=== PATIENT | female | born 1980 | race Caucasian/White ===

== ENCOUNTER 2017-02-26 19:26 | Inpatient (IN) | payer MEDICAID ==
[2017-02-26] VITALS (24 sets, daily range): BP systolic 84–123; BP diastolic 51–90; PULSE 108–156; RESP 16–59; TEMP 101.9–104.6; O2SAT 92–100
[~2017-02-26] VITALS: Ht 170.2 cm; Wt 95.5 kg
[~2017-02-26 19:26] MED LIST: DUONI INH; FURO1TAB93 PO; KCL20 PO; METO25 PO; NEBUMIS6 INH; PERC5TAB12 PO; SPIR25 PO
[2017-02-26] MEDS: MIDAZOLAM 100 MG/100 ML INJ 100 ML IV PRN (19:35)
[2017-02-26] MEDS ORDERED: SODIUM CHLOR 0.9% 1000 ML INJ 1,000 ML IV ONE ×6 (19:35→22:33)
[2017-02-26] MEDS ORDERED: MIDAZOLAM 100 MG/100 ML INJ 100 ML ONE (19:36)
[2017-02-26] MEDS ORDERED: ETOMIDATE 20 MG/10 ML VIAL IV PUSH ONE (19:45)
[2017-02-26] MEDS ORDERED: SUCCINYLCHOLINE CHLORIDE 200 MG/10 ML VIAL IV PUSH ONE (19:45)
[2017-02-26] MEDS ORDERED: ACETAMINOPHEN 650 MG SUPP RECTAL ONE (19:45)
[2017-02-26] MEDS ORDERED: MIDAZOLAM HCL 2 MG/2 ML VIAL IV PUSH ONE ×2 (19:45→20:00)
[2017-02-26 19:53] LABS: I-STAT POTASSIUM 3.3 MMOL/L (3.5-4.9); I-STAT SODIUM 133 MMOL/L (138-146)
--- NOTE | 2017-02-26 19:58 | PD ---
HPI Chief Complaint: Stroke Alert Time Seen by Provider: 19:35 Travel History International Travel<30 days: No Contact w/Intl Traveler<30days: No Traveled to known affect area: No History of Present Illness HPI The patient is a 36-year-old female who presents to the emergency department via EMS as a stroke alert. According to EMS the patient has a history of fungal endocarditis with previous IVDA. EMS states that the patient is currently on hospice, however, they are unsure if the patient is a DNR. EMS states the patient apparently complained of a headache earlier today, was found lying on the floor and incontinent of stool at approximate, last seen normal at 6:45 PM. Therefore, EMS called a stroke alert in the field as the patient was aphasic and confused. Upon arrival the patient groans, moves all 4 extremities and withdraws all 4 extremities, but is unable to provide any information. PFSH Past Medical History Anxiety: Yes Cancer: No Cardiovascular Problems: Yes (ENDOCARDITIS 2016) Diminished Hearing: No Endocrine: No Immune Disorder: No Musculoskeletal: No Neurologic: Yes Psychiatric: No Reproductive: No Respiratory: No Pneumonia: Yes : 2 Para: 2 Social History Alcohol Use: Yes (SOC) Tobacco Use: No Substance Use: Yes (pills percocet, ocycodone and dilaudid last time yesterday , uses daily ) Allergies-Medications (Allergen,Severity, Reaction): Coded Allergies: No Known Allergies (Verified , 09/01/15) Reported Meds & Prescriptions Reported Meds & Active Scripts Active Kcl 20 Meq Tab (Potassium Chloride) 20 Meq Tabcr 20 Meq PO DAILY 30 Days Percocet 5-325 mg (Oxycodone/Acetaminophen) 1 Tab 1 Tab PO Q4H PRN Nebulizer (Miscellaneous Medication) Mis 1 Unit INH DIRECTED Resp: Albuterol/Ipratropium 2.5 Mg/0.5 Mg (Albuterol/Ipratropium) 1 Amp Nebu 1 Ampule INH Q4HR NEB PRN 30 Days Aldactone 25 mg (Spironolactone) 25 Mg Tab 25 Mg PO Q12HR 30 Days Metoprolol Tartrate 25 mg (Metoprolol Tartrate) 25 Mg Tab 25 Mg PO Q12HR 30 Days Furosemide 40 Mg Tab 40 Mg PO Q8H 30 Days Review of Systems ROS Limitations: Clinical Condition, Altered Mental Status Except as stated in HPI: all other systems reviewed are Neg Genitourinary: Positive: Incontinence (incontinent of stool according to EMS) Neurologic: Positive: Change in Mentation, Other (aphasia) Physical Exam Exam Limitations: Clinical Condition, Altered Mental Status Narrative GENERAL: Eyes open, nonverbal, confused appearing 36-year-old female. SKIN: Focused skin assessment warm/dry. HEAD: Atraumatic. Normocephalic. EYES: Pupils equal and round. Pupils are 4 mm bilateral and reactive. ENT: No nasal bleeding or discharge. Mucous membranes pink and moist. NECK: Trachea midline. No JVD. CARDIOVASCULAR: Regular, tachycardic with a heart rate of 120. Well-healed midline sternal scar. RESPIRATORY: No accessory muscle use. Clear to auscultation. Breath sounds equal bilaterally. GASTROINTESTINAL: Abdomen soft, mild distention. MUSCULOSKELETAL: No obvious deformities. No edema noted to lower extremities bilaterally. NEUROLOGICAL: Awake, eyes open, nonverbal, groans. Withdraws all 4 extremities to pain but does not follow commands. Unable to answer questions regards to the person, place, and time. Does not follow commands in regards to drift of the upper or lower extremity is, extraocular muscle movements, visual field testing, [id number], or finger to nose. PSYCHIATRIC: Appears confused. Data Data Orders Orders Midazolam 100 Mg/100 Ml Inj (Versed Inj) (02/26/17 19:36) Diet Npo (02/27/17 Breakfast) Activity Bed Rest (02/26/17 ) Electrocardiogram (02/26/17 ) I-Stat Creatinine (02/26/17 19:35) I-Stat Profile (02/26/17 19:35) Prothrombin Time / Inr (Pt) (02/26/17 19:35) Act Partial Throm Time (Ptt) (02/26/17 19:35) Complete Blood Count With Diff (02/26/17 19:35) Fibrinogen (02/26/17 19:35) Creatine Kinase (Cpk) (02/26/17 19:35) Troponin I (02/26/17 19:35) Ua Includes Microscopic (02/26/17 19:35) Drug Screen, Random Urine (02/26/17 19:35) Type And Screen (02/26/17 19:35) Ct Brain W/O Iv Contrast(Rout) (02/26/17 ) Chest, Single Ap (02/26/17 ) Beta Hcg (Quant/Titer) (02/26/17 19:35) Consult Neurology (02/26/17 ) Blood Glucose (02/26/17 19:35) Ecg Monitoring (02/26/17 19:35) Neuro Checks Q2HX12,Q4H (02/26/17 19:35) Nursing Bedside Swallow Assess .ONCE (02/26/17 19:35) Iv Access Insert/Monitor (02/26/17 19:35) NPO (02/26/17 19:35) Oximetry (02/26/17 19:35) Oxygen Administration (02/26/17 19:35) Sodium Chlor 0.9% 1000 Ml Inj (Ns 1000 M (02/26/17 19:35) Resp Oxygen Franck C Titrat 1-4 L (02/26/17 19:35) Cath For Specimen (02/26/17 19:35) Etomidate Inj (Amidate Inj) (02/26/17 19:45) Succinylcholine Inj (Quelicin Inj) (02/26/17 19:45) Sodium Chlor 0.9% 1000 Ml Inj (Ns 1000 M (02/26/17 19:45) Lactic Acid (02/26/17 19:35) Blood Culture (02/26/17 19:35) Ammonia (02/26/17 19:35) Midazolam Inj (Versed Inj) (02/26/17 19:45) Acetaminophen Supp (Tylenol Supp) (02/26/17 19:45) Midazolam Inj (Versed Inj) (02/26/17 20:00) Vecuronium 10 Mg Inj (Norcuron 10 Mg Inj (02/26/17 20:00) Vancomycin Inj (Vancomycin Inj) (02/26/17 20:15) Ceftriaxone Inj (Rocephin Inj) (02/26/17 20:15) Sodium Chlor 0.9% 1000 Ml Inj (Ns 1000 M (02/26/17 20:15) Adenosine Inj (Adenocard Inj) (02/26/17 20:15) Propofol 1000 Mg/100 Ml Inj (Diprivan 10 (02/26/17 20:15) ^ Infusion (02/26/17 20:05) RASS (02/26/17 20:05) Neurological Rass Scale NEETU.Q2H (02/26/17 20:05) Diltiazem Inj (Cardizem Inj) (02/26/17 20:30) Ketorolac Inj (Toradol Inj) (02/26/17 20:47) Chest, Single Ap (02/26/17 ) Ketorolac Inj (Toradol Inj) (02/26/17 21:00) Sodium Chlor 0.9% 1000 Ml Inj (Ns 1000 M (02/26/17 21:00) Labs Laboratory Tests Test 02/26/17 19:30 White Blood Count 18.8 TH/MM3 Red Blood Count 4.13 MIL/MM3 Hemoglobin 9.9 GM/DL Bedside Hemoglobin 10.9 G/DL Hematocrit 31.1 % Bedside Hematocrit 32.0 % Mean Corpuscular Volume 75.4 FL Mean Corpuscular Hemoglobin 24.0 PG Mean Corpuscular Hemoglobin Concent 31.9 % Red Cell Distribution Width 15.5 % Platelet Count 200 TH/MM3 Mean Platelet Volume 7.7 FL Neutrophils (%) (Auto) 93.8 % Lymphocytes (%) (Auto) 2.2 % Monocytes (%) (Auto) 3.7 % Eosinophils (%) (Auto) 0.0 % Basophils (%) (Auto) 0.3 % Neutrophils # (Auto) 17.7 TH/MM3 Lymphocytes # (Auto) 0.4 TH/MM3 Monocytes # (Auto) 0.7 TH/MM3 Eosinophils # (Auto) 0.0 TH/MM3 Basophils # (Auto) 0.0 TH/MM3 CBC Comment AUTO DIFF Prothrombin Time 15.4 SEC Prothromb Time International Ratio 1.4 RATIO Activated Partial Thromboplast Time 43.2 SEC Fibrinogen 289 mg/dL Bedside Sodium 133 MMOL/L Bedside Potassium 3.3 MMOL/L Bedside Chloride 98 MMOL/L Bedside Blood Urea Nitrogen 15 MG/DL Bedside Creatinine 0.7 MG/DL Bedside Glucose 139 MG/DL Total Creatine Kinase 103 U/L Troponin I 0.61 NG/ML Human Chorionic Gonadotropin, Quant LESS THAN 1 MIU/ML [facility] Medical Screen Exam Complete: Yes Emergency Medical Condition: Yes Medical Record Reviewed: Yes EKG Prior to Arrival: Yes Differential Diagnosis Differential diagnosis includes meningitis, encephalitis, sepsis, CVA, intracranial hemorrhage, IVDA, endocarditis, epidural abscess, UTI, pneumonia. Narrative Course IV was established, labs were drawn and sent, and the patient was placed on cardiac telemetry monitoring and continuous pulse oximetry monitoring. The patient was intubated secondary to confusion, inability to follow commands, and inability to stay still for CT of the brain. The patient was intubated using rapid sequence intubation with etomidate and succinylcholine using a C Mac glide scope with a 8.0 endotracheal tube. The patient was administered Versed for sedation, IV fluid bolus, and Tylenol rectally for temperature of 103.9. EMS states the patient's Accu-Chek prior to arrival was 149. The patient went immediately to CT for CT of the brain. I discussed the patient with the on- call neurologist, Dr. Church, who agrees the patient would not be a candidate for TPA secondary to the fever, altered mental status, history of IVDA with endocarditis, an atypical presentation for acute ischemic CVA. I discussed the patient with the radiologist who states the CT the brain is negative, no acute hemorrhage or obvious infarct. The patient's initial assessment appeared to be encephalopathy, most likely sepsis related. Therefore, a quick NIHSS was performed, approximately 10, the patient was intubated and went to CT which was negative. The patient returned a central line was placed in the right internal jugular under ultrasound guidance. Repeat chest x-ray was performed, endotracheal tube was moved backwards 2 cm as it was on the juan on the initial chest x-ray. The patient did receive Rocephin, vancomycin, and 3 L of IV fluids. The patient did go in atrial flutter with 2:1 block with a rate of 150, was administered adenosine 12 mg intravenously which did not touch her heart rate, therefore, patient received Cardizem 20 mg intravenously. The patient's rate came down into the 130s. The patient appears to have sepsis, most likely endocarditis or blood- borne infection, cannot rule out meningitis. Therefore, patient was covered with Rocephin 2 g intravenously and acyclovir 80 mg/kg. I discussed the patient with the on-call wrapper layer and examiner soft work, Dr. Calix, who agrees with admission. Critical Care Narrative Aggregate critical care time was 45 minutes. Time to perform other separately billable procedures was not included in the critical care time. My time did not include minutes spent treating any other patients simultaneously or on activities that did not directly contribute to the patient's treatment. The services I provided to this patient were to treat and/or prevent clinically significant deterioration that could result in: Anoxia, hypoxia, aspiration, sepsis, septic shock, . I provided critical care services requiring my management, as noted below: Chart data review, documentation time, medication orders and management, vital sign assessments/reviewing monitor data, ordering and reviewing lab tests, ordering and interpreting/reviewing x-rays and diagnostic studies, care of the patient and discussion of the patient with the admitting physicians. Stroke Alert NIHSS NIH Stroke Scale Result: 10 NIHSS Time Completed: 19:30 Procedures Procedure Narrative INTUBATION: The patient was put in optimal position for the procedure. Rapid sequence intubation was initiated by me using 20 milligrams of etomidate IV and 100 milligrams of succinylcholine IV. The patient was intubated with a 8-0 cuffed endotracheal tube. Tube placement was confirmed by visualization of the tube and balloon passing through the cords, capnometry and subsequent chest x- ray. Breath sounds were equal and well aerated bilaterally postintubation. No breath sounds over stomach. Patient tolerated procedure well. CENTRAL VENOUS LINE: The site was prepped with Betadine and sterilely draped. It was infiltrated with 1% lidocaine plain. The deep vein was cannulated using normal Seldinger technique. A triple lumen central line was placed in the right internal jugular site and secured with simple interrupted suture. The site was sterilely dressed. The patient tolerated the procedure well. Interpretation(s) EKG reveals sinus tachycardia with a rate of 120. RSR prime V1. Laboratory Tests Test 02/26/17 19:30 White Blood Count 18.8 TH/MM3 Red Blood Count 4.13 MIL/MM3 Hemoglobin 9.9 GM/DL Bedside Hemoglobin 10.9 G/DL Hematocrit 31.1 % Bedside Hematocrit 32.0 % Mean Corpuscular Volume 75.4 FL Mean Corpuscular Hemoglobin 24.0 PG Mean Corpuscular Hemoglobin Concent 31.9 % Red Cell Distribution Width 15.5 % Platelet Count 200 TH/MM3 Mean Platelet Volume 7.7 FL Neutrophils (%) (Auto) 93.8 % Lymphocytes (%) (Auto) 2.2 % Monocytes (%) (Auto) 3.7 % Eosinophils (%) (Auto) 0.0 % Basophils (%) (Auto) 0.3 % Neutrophils # (Auto) 17.7 TH/MM3 Lymphocytes # (Auto) 0.4 TH/MM3 Monocytes # (Auto) 0.7 TH/MM3 Eosinophils # (Auto) 0.0 TH/MM3 Basophils # (Auto) 0.0 TH/MM3 CBC Comment AUTO DIFF Prothrombin Time 15.4 SEC Prothromb Time International Ratio 1.4 RATIO Activated Partial Thromboplast Time 43.2 SEC Fibrinogen 289 mg/dL Bedside Sodium 133 MMOL/L Bedside Potassium 3.3 MMOL/L Bedside Chloride 98 MMOL/L Bedside Blood Urea Nitrogen 15 MG/DL Bedside Creatinine 0.7 MG/DL Bedside Glucose 139 MG/DL Total Creatine Kinase 103 U/L Troponin I 0.61 NG/ML Human Chorionic Gonadotropin, Quant LESS THAN 1 MIU/ML CT the brain reveals nothing acute Chest x-ray reveals cardiomegaly, postoperative changes, bilateral vascular congestion. Physician Communication Physician Communication I discussed the patient with the on-call wrapper layer and examiner soft work who agrees with admission. Diagnosis Diagnosis: Primary Impression: Sepsis Qualified Codes: A41.9 - Sepsis, unspecified organism Additional Impressions: Elevated troponin Altered mental status Qualified Codes: R41.82 - Altered mental status, unspecified Admitting Physician Requests: Admit Condition: Critical Alex Ocampo MD Feb 26, 2017 19:58
[2017-02-26] MEDS ORDERED: VECURONIUM BROMIDE 10 MG VIAL IV PUSH ONE (20:00)
--- NOTE | 2017-02-26 20:02 | RADRPT ---
EXAM DATE/TIME: 02/26/2017 19:47 [facility] COMPARISON: CT BRAIN W/O CONTRAST, December 27, 2015, 10:06. INDICATIONS : Stroke alert; slurred speach, altered mental status. RADIATION DOSE: 56.35 CTDIvol (mGy) This report was called by Pankaj to Dr. Ocampo at 1958 MEDICAL HISTORY : Non-responsive. SURGICAL HISTORY : Non-responsive. ENCOUNTER: Initial ACUITY: 1 day PAIN SCALE: Non-responsive LOCATION: cranial TECHNIQUE: Multiple contiguous axial images were obtained of the head. Using automated exposure control and adj ustment of the mA and/or kV according to patient size, radiation dose was kept as low as reasonably a chievable to obtain optimal diagnostic quality images. DICOM format image data is available electro nically for review and comparison. FINDINGS: CEREBRUM: The ventricles are normal for age. No evidence of midline shift, mass lesion, hemorrhage or acute in farction. No extra-axial fluid collections are seen. POSTERIOR FOSSA: The cerebellum and brainstem are intact. The 4th ventricle is midline. The cerebellopontine angle i s unremarkable. EXTRACRANIAL: The visualized portion of the orbits is intact. SKULL: The calvaria is intact. No evidence of skull fracture. CONCLUSION: No evidence of acute infarct, hemorrhage, mass or edema. Ken Sanchez MD on February 26, 2017 at 19:57 Board Certified Radiologist. This report was verified electronically.
[2017-02-26 20:09] LABS: AUTOMATED NEUTROPHIL # 17.7 TH/MM3 (1.8-7.7); BASOPHIL % 0.3 % (0.0-2.0); HEMATOCRIT 31.1 % (35.0-46.0); LYMPH % 2.2 % (9.0-44.0); LYMPHOCYTE # 0.4 TH/MM3 (1.0-4.8); MEAN CELL VOLUME 75.4 FL (80.0-100.0); MEAN CORPUSCULAR HGB CONC 31.9 % (32.0-36.0); MONO % 3.7 % (0.0-8.0); NEUT % 93.8 % (16.0-70.0); PLATELET COUNT 200 TH/MM3 (150-450); RED BLOOD COUNT 4.13 MIL/MM3 (4.00-5.30); RED CELL DISTRIBUTION WIDTH 15.5 % (11.6-17.2); WHITE BLOOD COUNT 18.8 TH/MM3 (4.0-11.0)
[2017-02-26 20:10] LABS: APTT (PATIENT) 43.2 SEC (24.3-30.1); INTERNATIONAL NORMALIZED RATIO 1.4 RATIO; PROTHROMBIN TIME - PATIENT 15.4 SEC (9.8-11.6)
[2017-02-26 20:14] LABS: BETA HCG QUANT LESS THAN 1 MIU/ML (0-5); CREATINE KINASE 103 U/L (26-192); HEMO FLAGS AUTO DIFF
[2017-02-26] MEDS ORDERED: VANCOMYCIN INJ 1,000 MG in SODIUM CHLOR 0.9% 250 ML INJ 250 ML IV ONE (20:15)
[2017-02-26] MEDS ORDERED: cefTRIAXone INJ 2,000 MG in SODIUM CHLORIDE 0.9% INJ 100 ML IV ONE (20:15)
[2017-02-26] MEDS ORDERED: ADENOSINE IV SOLN 3 MG/ML 2 ML VIAL IV PUSH ONE (20:15)
[2017-02-26] MEDS ORDERED: DILTIAZEM HCL 25 MG/5 ML VIAL IV ONE (20:30)
--- NOTE | 2017-02-26 20:34 | RADRPT ---
EXAM DATE/TIME: 02/26/2017 20:13 [facility] COMPARISON: CHEST SINGLE AP, January 29, 2016, 12:21. INDICATIONS : Stroke alert. MEDICAL HISTORY : None. SURGICAL HISTORY : CABG. ENCOUNTER: Initial ACUITY: 1 day PAIN SCORE: Non-responsive. LOCATION: Bilateral cranial FINDINGS: An endotracheal tube has been placed. Its tip is at the level of the juan. The lungs are hypoaerated with diffuse vascular engorgement. There is no evidence of consolidating in filtrate. Heart is moderately enlarged. The sternotomy wires from previous surgery are noted. CONCLUSION: 1. Tip of endotracheal tube at the juan. 2. Mild diffuse vascular congestion. 3. No evidence of consolidating airspace disease. 4. Cardiomegaly with evidence of previous surgery. Ken Sanchez MD on February 26, 2017 at 20:31 Board Certified Radiologist. This report was verified electronically.
[2017-02-26] MEDS ORDERED: KETOROLAC TROMETHAMINE 30 MG/ML (IVP) VIAL ONE (20:47)
[2017-02-26] MEDS: PROPOFOL 1000 MG/100 ML INJ 100 ML IV PRN (21:00)
[2017-02-26] MEDS ORDERED: KETOROLAC TROMETHAMINE 30 MG/ML (IVP) VIAL IV PUSH ONE (21:00)
[2017-02-26] MEDS: NOREPINEPHRINE-DEXTROSE DRIP 250 ML IV PRN (21:00)
[2017-02-26] MEDS ORDERED: ACYCLOVIR INJ 1,000 MG in SODIUM CHLORIDE 0.9% INJ 150 ML IV ONE (21:15)
[2017-02-26] MEDS ORDERED: NOREPINEPHRINE 4 MG/4 ML AMP ONE (21:17)
[2017-02-26 21:22] LABS: BANDS 34 % (0-6); POLYS (SEG NEUTROPHILS) 62 % (16-70); WBC DIFF SAMPLE 100
[2017-02-26 21:23] LABS: OVALOCYTES 2+ (NORMAL); PLATELET ESTIMATE SMEAR NORMAL (NORMAL); PLATELET MORPHOLOGY NORMAL (NORMAL); SCAN/DIFF FINAL DIFF MANUAL
[2017-02-26] MEDS ORDERED: CHLORHEXIDINE GLUCONATE 2 % 1 PACK (2 CLOTHS) TOP PRN (21:30)
[2017-02-26] MEDS ORDERED: BISACODYL 10 MG SUPP RECTAL PRN (21:30)
[2017-02-26] MEDS ORDERED: TERBUTALINE INJ 1 MG/ML AMP SQ PRN (21:30)
[2017-02-26] MEDS ORDERED: MAGNESIUM HYDROXIDE SUSP 30 ML CUP PO PRN (21:30)
[2017-02-26] MEDS ORDERED: LACTULOSE SYRUP 20 GM/30 ML CUP PO PRN (21:30)
[2017-02-26] MEDS ORDERED: MISCELLANEOUS NURSING INFORMATION XX SCH (21:30)
[2017-02-26] MEDS ORDERED: SENNOSIDES 8.6 MG TAB PO PRN (21:30)
[2017-02-26] MEDS ORDERED: MIDAZOLAM HCL 2 MG/2 ML VIAL IV PRN (21:30)
[2017-02-26] MEDS ORDERED: SODIUM CHLORIDE 0.9% FLUSH 10 ML FLUSH PRN (21:30)
--- NOTE | 2017-02-26 21:31 | RADRPT ---
EXAM DATE/TIME: 02/26/2017 21:06 [facility] COMPARISON: CHEST SINGLE AP, February 26, 2017, 20:13. INDICATIONS : Post procedure, line placement. MEDICAL HISTORY : None. SURGICAL HISTORY : CABG. ENCOUNTER: Initial ACUITY: 1 day PAIN SCORE: Non-responsive. LOCATION: Bilateral chest FINDINGS: A single view of the chest demonstrates repositioning of the endotracheal tube which is in good posit ion above the juan. There has been interval placement of a right jugular central venous catheter. C atheter is in good position. There is no evidence of pneumothorax. Vascular congestive changes remain evident. There is mild left basilar airspace disease. CONCLUSION: 1. Repositioning of endotracheal tube which is now in good position. 2. Interval placement of a right jugular central venous catheter which is in good position. 3. No evidence of pneumothorax. 4. Vascular congestive changes and mild left basilar airspace disease. Ken Sanchez MD on February 26, 2017 at 21:27 Board Certified Radiologist. This report was verified electronically.
[2017-02-26 21:40] LABS: BACTERIA, URINE OCC /hpf; BLOOD, URINE MOD (NEG); GLUCOSE,URINE NEG (NEG); KETONE, URINE NEG (NEG); NITRITE,URINE NEG (NEG); SQUAMOUS EPITHELIAL CELL URINE 2 /hpf (0-5); URINE COLOR YELLOW (YELLW/STRAW)
[2017-02-26 21:41] LABS: BLOOD GAS BASE EXCESS -7.4 mmol/L (-2-2); BLOOD GAS CARBOXYHEMOGLOBIN 1.2 % (0-4); BLOOD GAS HCO3 17 mmol/L (22-26); BLOOD GAS METHEMOGLOBIN 0.2 % (0-2); BLOOD GAS O2 HGB SATURATION 98 % (90-100); BLOOD GAS OXYGEN CONTENT 12.9 Vol % (12.0-20.0); BLOOD GAS PCO2 31 mmHg (38-42); BLOOD GAS PO2 206 mmHG (61-120); CRITICAL VALUE NO; OXYGEN DEVICE VENTILATOR; TEMP CORR TO 98.6
[2017-02-26 21:42] LABS: DRAW SITE RT RADIAL; FIO2 50 %; NUMBER OF ARTERIAL PUNCTURES 1; STAT NO; ULNAR PULSE PRESENT; VENT SETTINGS AC/RR14/VT550/PEEP5
--- NOTE | 2017-02-26 22:24 | PD.PROCEDR ---
Procedure Note Procedure Lumbar puncture A time-out was completed verifying correct patient, procedure, site, positioning , and special equipment if applicable. The patient was placed in the left lateral decubitus position in a semi- position with help from the nursing staff. The area was cleansed and draped in usual sterile fashion. 1% lidocaine was used anesthetize the surrounding skin area. A <20-gauge 3.5-inch> spinal needle was placed in the <L3-L4/L4-L5> interspace. Clear cerebral spinal fluid was obtained and the opening pressure was noted to be <44 cm>. Four tubes were filled with 4 mL of CSF. These were sent for the usual tests, including 1 tube to be held for further analysis if needed. Closing pressure was noted to be 38 cm. Estimated Blood Loss: 0 The patient tolerated the procedure well and there were no complications. Adan Calix MD Feb 26, 2017 22:24
--- NOTE | 2017-02-26 22:32 | HHI.HP ---
HPI Service Critical Care Medicine Primary Care Physician Unknown Admission Diagnosis sepsis, elevated troponin, history of endocarditis/IVDA Diagnosis: Travel History International Travel<30 Days: No Contact w/Intl Traveler <30 Da: No Traveled to Known Affected Are: No History of Present Illness 36-year-old female who presents initially as a stroke alert. According to EMS report the patient has a history of fungal endocarditis with previous IVDA. EMS states that the patient is currently on hospice, however, they are unsure if the patient is a DNR. EMS states the patient apparently complained of a headache earlier today, was found lying on the floor and incontinent of stool at approximate, last seen normal at 6:45 PM. Therefore, EMS called a stroke alert in the field as the patient was aphasic and confused. Upon arrival the patient groans, moves all 4 extremities and withdraws all 4 extremities, but is unable to provide any information. She was intubated in the emergency department by ER attending for airway protection. Review of Systems ROS Unable to obtain patient is sedated and intubated Past Family Social History Allergies: Coded Allergies: No Known Allergies (Verified , 09/01/15) Past Medical History Hepatitis C IV drug abuse Narcotic dependency Bacterial endocarditis Past Surgical History Left forearm surgery Reported Medications Reported Meds & Active Scripts Active Kcl 20 Meq Tab (Potassium Chloride) 20 Meq Tabcr 20 Meq PO DAILY 30 Days Percocet 5-325 mg (Oxycodone/Acetaminophen) 1 Tab 1 Tab PO Q4H PRN Nebulizer (Miscellaneous Medication) Mis 1 Unit INH DIRECTED Resp: Albuterol/Ipratropium 2.5 Mg/0.5 Mg (Albuterol/Ipratropium) 1 Amp Nebu 1 Ampule INH Q4HR NEB PRN 30 Days Aldactone 25 mg (Spironolactone) 25 Mg Tab 25 Mg PO Q12HR 30 Days Metoprolol Tartrate 25 mg (Metoprolol Tartrate) 25 Mg Tab 25 Mg PO Q12HR 30 Days Furosemide 40 Mg Tab 40 Mg PO Q8H 30 Days Active Ordered Medications Current Medications Medications (Trade) Dose Ordered Sig/Jessica Route PRN Reason Start Time Stop Time Status Last Admin Dose Admin Sodium Chloride 1,000 ml @ 70 mls/hr [id number] ONCE IV 02/26/17 19:35 02/27/17 09:52 Propofol 100 ml @ 0 mls/hr TITRATE PRN IV Ordered RASS 02/26/17 20:15 Norepinephrine Bitartrate 250 ml @ 7.5 mls/hr TITRATE PRN IV Blood pressure management 02/26/17 21:30 Terbutaline Sulfate (Brethine Inj) 1 mg UNSCH PRN SQ For Extravasation 02/26/17 21:30 Sodium Chloride (NS Flush) 2 ml UNSCH PRN .XX FLUSH AFTER USING IV ACCESS 02/26/17 21:30 Sodium Chloride (NS Flush) 2 ml BID .XX 02/27/17 09:00 Acetaminophen (Tylenol) 650 mg Q6H PRN PO PAIN 1-10 AND/OR FEVER >101F 02/26/17 21:30 Morphine Sulfate (Morphine Inj) 2 mg Q2H PRN IV PAIN SCALE 6 TO 10 02/26/17 21:30 Famotidine (Pepcid Inj) 20 mg Q12HR IV PUSH 02/27/17 09:00 Midazolam HCl (Versed Inj) 2 mg Q1H PRN IV SEDATION 02/26/17 21:30 Artificial Tears (Tears Naturale Opth Soln) 1 drop TID EACH EYE 02/27/17 09:00 Ondansetron HCl (Zofran Inj) 4 mg Q6H PRN IV NAUSEA OR VOMITING 02/26/17 21:30 Albuterol/ Ipratropium (Duoneb Neb) 1 ampule Q2HR NEB PRN INH WHEEZING 02/26/17 21:30 Heparin Sodium (Porcine) (Heparin Inj) 5,000 units Q12H SQ 02/26/17 22:00 Miscellaneous Information 1 Q361D XX 02/26/17 21:30 Chlorhexidine Gluconate (Chlorhexidine 2% Cloth) 3 pack Taper DAILY@04 TOP 02/27/17 04:00 02/23/18 03:59 Chlorhexidine Gluconate (Chlorhexidine 2% Cloth) 3 pack UNSCH PRN TOP HYGIENIC CARE 02/26/17 21:30 Senna/Docusate Sodium (Armida-Colace) 1 tab BID PO 02/27/17 09:00 Magnesium Hydroxide (Milk Of Magnesia Liq) 30 ml Q12H PRN PO MILD - MODERATE CONSTIPATION 02/26/17 21:30 Sennosides (Senokot) 17.2 mg Q12H PRN PO MODERATE - SEVERE CONSTIPATION 02/26/17 21:30 Bisacodyl (Dulcolax Supp) 10 mg DAILY PRN RECTAL SEVERE CONSITIPATION 02/26/17 21:30 Lactulose (Lactulose Liq) 30 ml DAILY PRN PO SEVERE CONSITIPATION 02/26/17 21:30 Family History Unobtainable Social History History of IV drug abuse History of opioid dependency Medical marijuana use Physical Exam Vital Signs Vital Signs Date Time Temp Pulse Resp B/P (MAP) Pulse Ox O2 Delivery O2 Flow Rate FiO2 02/26/17 22:03 101.9 119 16 90/70 (77) 92 Physical Exam GENERAL: Well-nourished, well-developed patient. Sedated and intubated SKIN: Warm and dry. HEAD: Normocephalic. EYES: No scleral icterus. No injection or drainage. NECK: Supple, trachea midline. No JVD or lymphadenopathy. CARDIOVASCULAR: Regular rate and rhythm without murmurs, gallops, or rubs. RESPIRATORY: Breath sounds equal bilaterally. No accessory muscle use. GASTROINTESTINAL: Abdomen soft, non-tender, nondistended. MUSCULOSKELETAL: No cyanosis, or edema. BACK: Nontender without obvious deformity. NEURO EXAM: GCS: M 5 V T E 3 Mental Status: The patient is sedated and intubated Cranial Nerves:Pupils are round, reactive to light. Extraocular movements unable to examine Reflexes: Biceps, patellar, and Achilles are 2/4 bilaterally. No clonus. Sensation: Sensation unable to examine Motor: Good muscle tone. Cerebellar: [id number] and [id number]-[id number] test unable to examine Laboratory Laboratory Tests Test 02/26/17 19:30 02/26/17 20:30 02/26/17 21:00 02/26/17 21:23 White Blood Count 18.8 Red Blood Count 4.13 Hemoglobin 9.9 Bedside Hemoglobin 10.9 Hematocrit 31.1 Bedside Hematocrit 32.0 Mean Corpuscular Volume 75.4 Mean Corpuscular Hemoglobin 24.0 Mean Corpuscular Hemoglobin Concent 31.9 Red Cell Distribution Width 15.5 Platelet Count 200 Mean Platelet Volume 7.7 Neutrophils (%) (Auto) 93.8 Lymphocytes (%) (Auto) 2.2 Monocytes (%) (Auto) 3.7 Eosinophils (%) (Auto) 0.0 Basophils (%) (Auto) 0.3 Neutrophils # (Auto) 17.7 Lymphocytes # (Auto) 0.4 Monocytes # (Auto) 0.7 Eosinophils # (Auto) 0.0 Basophils # (Auto) 0.0 CBC Comment AUTO DIFF Differential Total Cells Counted 100 Neutrophils % (Manual) 62 Band Neutrophils % 34 Lymphocytes % 2 Monocytes % 2 Neutrophils # (Manual) 18.0 Differential Comment FINAL DIFF MANUAL Platelet Estimate NORMAL Platelet Morphology Comment NORMAL Ovalocytes 2+ Prothrombin Time 15.4 Prothromb Time International Ratio 1.4 Activated Partial Thromboplast Time 43.2 Fibrinogen 289 Bedside Sodium 133 Bedside Potassium 3.3 Bedside Chloride 98 Bedside Blood Urea Nitrogen 15 Bedside Creatinine 0.7 Bedside Glucose 139 Total Creatine Kinase 103 Troponin I 0.61 Human Chorionic Gonadotropin, Quant LESS THAN 1 Urine Color YELLOW Urine Turbidity HAZY Urine pH 6.0 Urine Specific [place] 1.027 Urine Protein 300 Urine Glucose (UA) NEG Urine Ketones NEG Urine Occult Blood MOD Urine Nitrite NEG Urine Bilirubin NEG Urine Urobilinogen LESS THAN 2.0 Urine Leukocyte Esterase TRACE Urine RBC 27 Urine WBC 31 Urine Squamous Epithelial Cells 2 Urine Bacteria OCC Urine Opiates Screen POS Urine Barbiturates Screen NEG Urine Amphetamines Screen NEG Urine Benzodiazepines Screen POS Urine Cocaine Screen NEG Urine Cannabinoids Screen POS Lactic Acid Level 3.3 Ammonia 60 Blood Gas Puncture Site RT RADIAL Blood Gas Patient Temperature 98.6 Blood Gas HCO3 17 Blood Gas Base Excess -7.4 Blood Gas Oxygen Saturation 98 Arterial Blood pH 7.36 Arterial Blood Partial Pressure CO2 31 Arterial Blood Partial Pressure O2 206 Arterial Blood Oxygen Content 12.9 Arterial Blood Carboxyhemoglobin 1.2 Arterial Blood Methemoglobin 0.2 Blood Gas Hemoglobin 9.0 Oxygen Delivery Device VENTILATOR Blood Gas Ventilator Setting AC/RR14/VT550/PEEP5 Blood Gas Inspired Oxygen 50 Date/Time Source Procedure Growth Status 02/26/17 20:22 Blood Peripheral Aerobic Blood Culture Pending Received 02/26/17 20:22 Blood Peripheral Anaerobic Blood Culture Pending Received Result Diagram: 02/26/171929 Caprini VTE Risk Assessment Caprini VTE Risk Assessment: Mod/High Risk (score >= 2) Caprini Risk Assessment Model Point Value = 1 Point Value = 2 Point Value = 3 Point Value = 5 Age 41-60 Minor surgery BMI > 25 kg/m2 Swollen legs Varicose veins or History of unexplained or recurrent spontaneous Oral contraceptives or hormone replacement Sepsis (< 1 month) Serious lung disease, including pneumonia (< 1 month) Abnormal pulmonary function Acute myocardial infarction Congestive heart failure (< 1 month) History of inflammatory bowel disease Medical patient at bed rest Age 61-74 Arthroscopic surgery Major open surgery (> 45 min) Laparoscopic surgery (> 45 min) Malignancy Confined to bed (> 72 hours) Immobilizing plaster cast Central venous access Age >= 75 History of VTE Family history of VTE Factor V Leiden Prothrombin [id number] Lupus anticoagulant Anticardiolipin antibodies Elevated serum homocysteine Heparin-induced thrombocytopenia Other congenital or acquired thrombophilia Stroke (< 1 month) Elective arthroplasty Hip, pelvis, or leg fracture Acute spinal cord injury (< 1 month) Prophylaxis Regimen Total Risk Factor Score Risk Level Prophylaxis Regimen 0-1 Low Early ambulation 2 Moderate Order ONE of the following: *Sequential Compression Device (SCD) *Heparin 5000 units SQ BID 3-4 Higher Order ONE of the following medications: *Heparin 5000 units SQ TID *Enoxaparin/Lovenox 40 mg SQ daily (WT < 150 kg, CrCl > 30 mL/min) *Enoxaparin/Lovenox 30 mg SQ daily (WT < 150 kg, CrCl > 10-29 mL/min) *Enoxaparin/Lovenox 30 mg SQ BID (WT < 150 kg, CrCl > 30 mL/min) AND/OR *Sequential Compression Device (SCD) 5 or more Highest Order ONE of the following medications: *Heparin 5000 units SQ TID (Preferred with Epidurals) *Enoxaparin/Lovenox 40 mg SQ daily (WT < 150 kg, CrCl > 30 mL/min) *Enoxaparin/Lovenox 30 mg SQ daily (WT < 150 kg, CrCl > 10-29 mL/min) *Enoxaparin/Lovenox 30 mg SQ BID (WT < 150 kg, CrCl > 30 mL/min) AND *Sequential Compression Device (SCD) Assessment and Plan Assessment and Plan Respiratory failure - Intubated for airway protection - No weaning until neurologically and hemodynamically stable Altered mental status - Stat LP - CT head negative - Neuro checks per unit protocol History of fungal endocarditis - History of IVDA - Broad-spectrum antibiotic and antiviral and antifungal - Infectious disease consultation Hypertension - Septic shock - Aggressive IV fluid hydration - Broad-spectrum antibiotic - Levophed when necessary to keep MEP above 65 DVT GI prophylaxis - Teds SCDs - Subcutaneous heparin - Pepcid Critical Care: The total critical care time was 35 minutes. Time to perform other separately billable procedures was not included in the critical care time. Adan Calix MD Feb 26, 2017 22:32
[2017-02-26] MEDS ORDERED: SODIUM CHLOR 0.9% 1000 ML INJ 100 ML IV ONE (22:33)
[2017-02-26] MEDS ORDERED: Vancomycin Consult Pharmacy 1 EA OTHER SCH (22:45)
[2017-02-26] MEDS ORDERED: DEXTROSE 5% IV SCH ×2 (23:45)
[2017-02-26] MEDS ORDERED: AMPHOTERICIN B LIPOSOME IV SCH ×2 (23:45)
[2017-02-26] MEDS ORDERED: WATE IV SCH ×2 (23:45)
[2017-02-27] VITALS (57 sets, daily range): BP systolic 86–107; BP diastolic 52–69; PULSE 105–122; RESP 24–44; TEMP 102.2–102.6; O2SAT 99–100
[2017-02-27 00:02] LABS: LACTIC ACID,CSF 4.9 MMOL/L (0.0-3.0)
[2017-02-27 00:22] LABS: GROSS BLOOD TUBE #1 3+ (0); SUPERNATE COLOR TUBE #1 CLEAR (CLEAR); VOLUME TUBE # 1 3.4 ML
[2017-02-27 00:23] LABS: GROSS BLOOD TUBE #2 4+ (0); GROSS BLOOD TUBE #3 3+ (0); SUPERNATE COLOR TUBE #2 CLEAR (CLEAR); SUPERNATE COLOR TUBE #3 CLEAR (CLEAR); VOLUME TUBE # 2 2.9 ML; VOLUME TUBE # 4 3.8 ML; WBC TUBE #4 1846 /MM3 (0-10)
[2017-02-27 00:24] LABS: CSF LYMPHOCYTES 1 %; CSF MONOCYTES 2 %; CSF NEUTROPHILS 97 %
[2017-02-27 00:26] LABS: GROSS BLOOD TUBE #4 4+ (0); SUPERNATE COLOR TUBE #4 CLEAR (CLEAR)
[2017-02-27] MEDS ORDERED: DEXTROSE 5% IV SCH ×4 (00:45→02:00)
[2017-02-27] MEDS ORDERED: WATE IV SCH ×4 (00:45→02:00)
[2017-02-27] MEDS ORDERED: AMPHOTERICIN B LIPOSOME IV SCH ×4 (00:45→02:00)
[2017-02-27] MEDS ORDERED: VANCOMYCIN INJ 2,000 MG in SODIUM CHLORID 0.9% 500 ML INJ 500 ML IV ONE (01:00)
--- NOTE | 2017-02-27 01:08 | RADRPT ---
EXAM DATE/TIME: 02/27/2017 00:34 [facility] COMPARISON: CHEST SINGLE AP, February 26, 2017, 21:06. INDICATIONS : Respiratory disease. MEDICAL HISTORY : None. SURGICAL HISTORY : CABG. ENCOUNTER: Subsequent ACUITY: 1 day PAIN SCORE: 0/10 LOCATION: Bilateral chest FINDINGS: Endotracheal tube tip in gastric position. NG enters stomach. Right central line in superior vena cav a. Subsegmental basilar air space disease. No pneumothorax. No significant effusion. CONCLUSION: 1. Endotracheal tube, nasogastric tube and right central line in good position. Subsegmental basilar airspace disease, left greater than right similar to February 26. Eliud Campoverde MD on February 27, 2017 at 1:05 Board Certified Radiologist. This report was verified electronically.
[2017-02-27] MEDS: ACYCLOVIR INJ 1,050 MG in SODIUM CHLORIDE 0.9% INJ 150 ML IV SCH ×2 (01:16→09:54)
[2017-02-27 01:50] LABS: LACTIC ACID GHOST NOT REPORTABLE
[2017-02-27] MEDS: HEPARIN SODIUM - SQ 10,000 UNITS/ML VIAL SQ SCH ×3 (02:56→22:53)
[2017-02-27] MEDS: NOREPINEPHRINE-DEXTROSE DRIP 250 ML IV PRN ×3 (03:47→17:24)
[2017-02-27] MEDS: PROPOFOL 1000 MG/100 ML INJ 100 ML IV PRN ×7 (03:48→23:32)
[2017-02-27] MEDS: CHLORHEXIDINE GLUCONATE 2 % 1 PACK (2 CLOTHS) TOP SCH (04:00)
[2017-02-27 05:12] LABS: AUTOMATED NEUTROPHIL # 17.4 TH/MM3 (1.8-7.7); BASOPHIL % 0.2 % (0.0-2.0); EOSINOPHIL # 0.1 TH/MM3 (0-0.4); EOSINOPHIL % 0.4 % (0.0-4.0); HEMATOCRIT 31.4 % (35.0-46.0); HEMO FLAGS DIFF FINAL; LYMPH % 3.3 % (9.0-44.0); LYMPHOCYTE # 0.6 TH/MM3 (1.0-4.8); MEAN CELL VOLUME 75.5 FL (80.0-100.0); MEAN CORPUSCULAR HGB CONC 31.8 % (32.0-36.0); MONO % 2.4 % (0.0-8.0); NEUT % 93.7 % (16.0-70.0); PLATELET COUNT 137 TH/MM3 (150-450); RED BLOOD COUNT 4.16 MIL/MM3 (4.00-5.30); WHITE BLOOD COUNT 18.6 TH/MM3 (4.0-11.0)
[2017-02-27 05:24] LABS: INTERNATIONAL NORMALIZED RATIO 1.7 RATIO; PROTHROMBIN TIME - PATIENT 18.9 SEC (9.8-11.6)
[2017-02-27 05:47] LABS: BICARBONATE 18.8 MEQ/L (21.0-32.0); MAGNESIUM 1.4 MG/DL (1.5-2.5)
[2017-02-27 05:49] LABS: CALCIUM-PROTEIN CORRECTED 7.5 MG/DL (8.5-10.1); TOTAL BILIRUBIN ADULT 0.7 MG/DL (0.2-1.0)
[2017-02-27 05:50] LABS: POTASSIUM 2.7 MEQ/L (3.5-5.1)
[2017-02-27] MEDS ORDERED: SODIUM PHOSPHATE INJ 30 MMOL in SODIUM CHLOR 0.9% 250 ML INJ 240 ML IV PRN (06:00)
[2017-02-27] MEDS ORDERED: POTASSIUM CHLORIDE 25 MEQ EFFERVESCENT TAB PO PRN (06:00)
[2017-02-27] MEDS ORDERED: MAGNESIUM OXIDE 400 MG TAB PO PRN (06:00)
[2017-02-27] MEDS ORDERED: POTASSIUM PHOSPHATE MONOBASIC 500 MG TAB PO PRN (06:00)
[2017-02-27] MEDS ORDERED: MAGNESIUM SULFATE INJ 4 GM in SODIUM CHLORIDE 0.9% INJ 92 ML IV PRN (06:00)
[2017-02-27] MEDS ORDERED: MAGNESIUM SULFATE INJ 2 GM in SODIUM CHLORIDE 0.9% INJ 96 ML IV PRN (06:00)
[2017-02-27] MEDS ORDERED: POTASSIUM PHOSPHATE INJ 30 MMOL in SODIUM CHLOR 0.9% 250 ML INJ 250 ML IV PRN (06:00)
[2017-02-27] MEDS ORDERED: POTASSIUM PHOSPHATE MONOBASIC 500 MG TAB PO/TUBE PRN (06:00)
[2017-02-27] MEDS: POTASSIUM CHLOR 40 MEQ PREMIX 100 ML IV PRN ×2 (06:10→07:54)
--- NOTE | 2017-02-27 06:49 | PD.CONS ---
History of Present Illness Service Neurology Consult Requested By [facility] Reason for Consult confusion Primary Care Physician Unknown History of Present Illness 36-year-old female who presents initially as a stroke alert. According to EMS report the patient has a history of fungal endocarditis with previous IVDA. EMS states that the patient is currently on hospice? pt intubated on sedation, unable to give any hx. on iv abx. +fever, + leukocytosis. ct brain naicp. Review of Systems ROS Unable to obtain patient is sedated and intubated Past Family Social History Allergies: Coded Allergies: No Known Allergies (Verified , 09/01/15) Past Medical History Hepatitis C IV drug abuse Narcotic dependency Bacterial endocarditis Past Surgical History Left forearm surgery Family History Unobtainable Social History History of IV drug abuse History of opioid dependency Medical marijuana use Review of Systems All other ROS: Unable to obtain Past Family Social History Allergies: Coded Allergies: No Known Allergies (Verified , 09/01/15) Active Ordered Medications Current Medications Medications (Trade) Dose Ordered Sig/Jessica Route Start Time Stop Time Status Last Admin Sodium Chloride 1,000 ml @ 70 mls/hr [id number] ONCE IV 02/26/17 19:35 02/27/17 09:52 Propofol 100 ml @ 0 mls/hr TITRATE PRN IV 02/26/17 20:15 02/27/17 03:48 Norepinephrine Bitartrate 250 ml @ 7.5 mls/hr TITRATE PRN IV 02/26/17 21:30 02/27/17 03:47 (Brethine Inj) 1 mg UNSCH PRN SQ 02/26/17 21:30 (Tylenol) 650 mg Q6H PRN PO 02/26/17 21:30 (Morphine Inj) 2 mg Q2H PRN IV 02/26/17 21:30 (Pepcid Inj) 20 mg Q12HR IV PUSH 02/27/17 09:00 (Versed Inj) 2 mg Q1H PRN IV 02/26/17 21:30 (Tears Naturale Opth Soln) 1 drop TID EACH EYE 02/27/17 09:00 (Zofran Inj) 4 mg Q6H PRN IV 02/26/17 21:30 (Duoneb Neb) 1 ampule Q2HR NEB PRN INH 02/26/17 21:30 (Heparin Inj) 5,000 units Q12H SQ 02/26/17 22:00 Miscellaneous Information 1 Q361D XX 02/26/17 21:30 02/26/17 21:30 (Chlorhexidine 2% Cloth) 3 pack Taper DAILY@04 TOP 02/27/17 04:00 02/23/18 03:59 02/27/17 04:00 (Chlorhexidine 2% Cloth) 3 pack UNSCH PRN TOP 02/26/17 21:30 (Armida-Colace) 1 tab BID PO 02/27/17 09:00 (Milk Of Magnesia Liq) 30 ml Q12H PRN PO 02/26/17 21:30 (Senokot) 17.2 mg Q12H PRN PO 02/26/17 21:30 (Dulcolax Supp) 10 mg DAILY PRN RECTAL 02/26/17 21:30 (Lactulose Liq) 30 ml DAILY PRN PO 02/26/17 21:30 (NS Flush) 2 ml UNSCH PRN IV FLUSH 02/26/17 22:45 (NS Flush) 2 ml BID IV FLUSH 02/27/17 09:00 Ceftriaxone Sodium 2000 mg/ Sodium Chloride 100 ml @ 200 mls/hr Q12H IV 02/27/17 08:00 Pharmacy Profile Note 0 ml @ 0 mls/hr UNSCH OTHER 02/26/17 22:45 Acyclovir Sodium 1050 mg/Sodium Chloride 150 ml @ 150 mls/hr Q8H IV 02/27/17 01:00 02/27/17 01:16 Amphotericin B Liposome 340 mg/ Dextrose 250 ml @ 125 mls/hr Q24H IV 02/27/17 02:00 02/27/17 02:00 Potassium Chloride 100 ml @ 50 mls/hr Q2H PRN IV 02/27/17 06:00 02/27/17 06:10 Potassium Chloride 100 ml @ 50 mls/hr Q2H PRN IV 02/27/17 06:00 (K-Lyte Cl Eff) 50 meq UNSCH PRN PO 02/27/17 06:00 Potassium Chloride 100 ml @ 25 mls/hr UNSCH PRN IV 02/27/17 06:00 Potassium Chloride 100 ml @ 50 mls/hr Q2H PRN IV 02/27/17 06:00 Magnesium Sulfate 4 gm/Sodium Chloride 100 ml @ 50 mls/hr UNSCH PRN IV 02/27/17 06:00 (Mag-Ox) 800 mg UNSCH PRN PO 02/27/17 06:00 Magnesium Sulfate 2 gm/Sodium Chloride 100 ml @ 50 mls/hr UNSCH PRN IV 02/27/17 06:00 (K-Phos) 2,000 mg Q4H PRN PO 02/27/17 06:00 Sodium Phosphate 30 mmol/Sodium Chloride 250 ml @ 42 mls/hr UNSCH PRN IV 02/27/17 06:00 (K-Phos) 2,000 mg UNSCH PRN PO/TUBE 02/27/17 06:00 Potassium Phosphate 30 mmol/ Sodium Chloride 260 ml @ 42 mls/hr UNSCH PRN IV 02/27/17 06:00 Exam I&O / VS Vital Signs Date Time Temp Pulse Resp B/P (MAP) Pulse Ox O2 Delivery O2 Flow Rate FiO2 02/27/17 06:00 114 02/27/17 04:00 117 02/27/17 04:00 102.0 117 33 93/64 (74) 100 02/27/17 04:00 50 02/27/17 03:47 121 90/61 02/27/17 03:36 02/27/17 03:07 102.4 116 33 86/58 (67) 100 02/27/17 03:06 116 02/27/17 03:00 100 50 02/27/17 01:00 102.6 118 30 107/62 (77) 100 02/27/17 00:32 102.6 122 30 95/57 (70) 100 02/27/17 00:31 102.6 116 30 97/58 (71) 100 02/27/17 00:30 102.6 116 30 96/59 (71) 100 02/27/17 00:15 102.6 116 31 97/53 (68) 100 02/27/17 00:00 102.2 113 30 96/52 (67) 100 02/26/17 23:45 102.2 117 31 92/53 (66) 100 02/26/17 23:35 102.2 121 31 93/55 (68) 100 02/26/17 23:25 102.2 112 30 96/52 (67) 100 02/26/17 23:23 102.2 117 30 93/51 (65) 100 02/26/17 23:19 102.6 117 30 94/51 (65) 100 02/26/17 23:09 102.6 113 33 92/56 (68) 100 02/26/17 22:59 102.6 114 59 94/60 (71) 100 02/26/17 22:49 102.9 113 29 97/59 (72) 100 02/26/17 22:39 102.9 113 28 92/55 (67) 100 02/26/17 22:29 102.9 115 27 94/54 (67) 100 02/26/17 22:19 102.9 112 26 99/58 (72) 100 02/26/17 22:09 103.3 112 25 95/58 (70) 100 02/26/17 22:05 103.3 114 50 99/56 (70) 100 02/26/17 22:03 101.9 119 16 90/70 (77) 92 02/26/17 21:40 103.6 108 34 88/57 (67) 100 02/26/17 21:35 103.6 115 23 84/56 (65) 100 02/26/17 21:30 104.0 110 26 85/55 (65) 100 02/26/17 21:11 96 50 02/26/17 20:58 98 50 02/26/17 20:07 100 40 02/26/17 20:00 100 100 02/26/17 19:57 104.6 156 32 118/76 (90) 100 02/26/17 19:40 100 100 02/26/17 19:40 103.6 123 32 123/90 (101) 96 02/26/17 19:34 50 02/26/17 19:30 96 4.00 Exam Comments intubated, on multiple gtt's, coma state, not following, not verbal, eyes looking down, no grimace, ou 3mm sluggish, diminished corneals and dolls, no ext movement, no clonus, planterflexor Review/Management Diagnosis/Plan: (1) Meningitis ICD Codes: G03.9 - Meningitis, unspecified Status: Acute Plan: +neutrophilic pleocytosis on CSF glucose nml, elevated protein. recs mri brain ID eval eeg/ echo if pt is in hospice, ? endpoint of medical care. may need palliative care assistance Earl Whipple MD Feb 27, 2017 06:49
[2017-02-27] MEDS: MIDAZOLAM 100 MG/100 ML INJ 100 ML IV PRN (07:54)
[2017-02-27] MEDS: cefTRIAXone INJ 2,000 MG in SODIUM CHLORIDE 0.9% INJ 100 ML IV SCH ×2 (07:55→20:57)
[2017-02-27] MEDS ORDERED: SODIUM CHLORIDE 0.9% FLUSH 10 ML FLUSH SCH (09:00)
[2017-02-27] MEDS: ARTIFICIAL TEARS OPTH SOLN 15 ML BTL EACH EYE SCH ×3 (09:00→17:25)
[2017-02-27] MEDS: SODIUM CHLORIDE 0.9% FLUSH 10 ML FLUSH IV FLUSH SCH ×2 (09:11→20:57)
[2017-02-27] MEDS: FAMOTIDINE 20 MG/2 ML VIAL IV PUSH SCH ×2 (09:12→20:57)
[2017-02-27] MEDS: DOCUSATE SODIUM 50 MG/SENNA 8.6 MG TAB PO SCH ×2 (09:12→21:00)
--- NOTE | 2017-02-27 12:47 | RADRPT ---
EXAM DATE/TIME: 02/27/2017 11:56 [facility] COMPARISON: CHEST SINGLE AP, February 27, 2017, 0:34. INDICATIONS : Central line placement. MEDICAL HISTORY : Endocarditis, pneumonia, poly substance abuse. renal failure, respiratory failure. SURGICAL HISTORY : CABG. ENCOUNTER: Initial ACUITY: 2 months PAIN SCORE: Non-responsive. LOCATION: Bilateral cranial FINDINGS: A single portable frontal view of the chest shows interval placement of a left subclavian central lucho e. The tip is at the cavoatrial junction. No pneumothorax. Tip of the endotracheal tube 3 cm from the juan. Nasogastric tube tip courses off the inferior margin of the film. The right-sided central li ne has been removed. Median sternotomy wires. Prosthetic aortic valve. Heart is mildly enlarged. Lung s are grossly clear although somewhat limited in evaluation due to motion artifact. CONCLUSION: Left subclavian central line in good position without pneumothorax. Ananth Ponce Jr., MD on February 27, 2017 at 12:44 Board Certified Radiologist. This report was verified electronically.
[2017-02-27] MEDS ORDERED: fentaNYL DRIP 250 ML IV SCH (13:00)
[2017-02-27] MEDS ORDERED: DEXTROSE 50% IN WATER 50 ML VIAL(D50) IV PUSH PRN (13:00)
--- NOTE | 2017-02-27 13:02 | HHI.CCPN ---
Subjective Remarks/Hospital Course Hospital Course: 36-year-old female who presents initially as a stroke alert. According to EMS report the patient has a history of fungal endocarditis with previous IVDA. EMS states that the patient is currently on hospice, however, they are unsure if the patient is a DNR. EMS states the patient apparently complained of a headache earlier today, was found lying on the floor and incontinent of stool at approximate, last seen normal at 6:45 PM. Therefore, EMS called a stroke alert in the field as the patient was aphasic and confused. Upon arrival the patient groans, moves all 4 extremities and withdraws all 4 extremities, but is unable to provide any information. She was intubated in the emergency department by ER attending for airway protection. subjective: 02/27: remains encephalopathic. Blood cultures growing Staph in 4/4 bottles. Objective Vital Signs Date Time Temp Pulse Resp B/P (MAP) Pulse Ox O2 Delivery O2 Flow Rate FiO2 02/27/17 12:00 40 02/27/17 11:28 100.2 114 38 89/52 (64) 100 02/26/17 19:30 4.00 Intake and Output 02/27/17 02/27/17 02/27/17 07:59 15:59 23:59 Intake Total 2264 ml Output Total 500 ml Balance 1764 ml Result Diagram: 02/27/17 0450 02/27/17 0450 Other Results Laboratory Tests Test 02/26/17 21:23 Blood Gas Puncture Site RT RADIAL Blood Gas Patient Temperature 98.6 Blood Gas HCO3 17 mmol/L (22-26) Blood Gas Base Excess -7.4 mmol/L (-2-2) Blood Gas Oxygen Saturation 98 % (90-100) Arterial Blood pH 7.36 (7.380-7.420) Arterial Blood Partial Pressure CO2 31 mmHg (38-42) Arterial Blood Partial Pressure O2 206 mmHG (61-120) Arterial Blood Oxygen Content 12.9 Vol % (12.0-20.0) Arterial Blood Carboxyhemoglobin 1.2 % (0-4) Arterial Blood Methemoglobin 0.2 % (0-2) Blood Gas Hemoglobin 9.0 G/DL (12.0-16.0) Oxygen Delivery Device VENTILATOR Blood Gas Ventilator Setting AC/RR14/VT550/PEEP5 Blood Gas Inspired Oxygen 50 % Objective Remarks GENERAL: critically ill middle-aged female, Sedated and intubated SKIN: Warm and dry. HEAD: Normocephalic. EYES: No scleral icterus. No injection or drainage. NECK: trachea midline. No JVD CARDIOVASCULAR: tachycardic rate, regular rhythm. RESPIRATORY: equal chest rise. PRVC, 40% fio2. No accessory muscle use. GASTROINTESTINAL: Abdomen soft, non-tender, nondistended. no guarding. MUSCULOSKELETAL: No cyanosis, or edema. NEURO EXAM: GCS: M 5 V T E 3 Mental Status: The patient is sedated and intubated, encephalopathic Cranial Nerves:Pupils are round, reactive to light. Extraocular movements unable to examine RASS -4, does not withdraw to pain. A/P Assessment and Plan Assessment: 36yF with recurrent IVDA, recurrent endocarditis, evidence of meningitis possible bacterial secondary to IVDA, respiratory failure, multi- organ failure. Very critically ill. very poor prognosis given her ongoing drug abuse. will ask palliative to see. appreciate ID and neuro recs. Acute hypoxic and hypercarbic Respiratory failure - no SBT today given persistent encephalopathy - No weaning until neurologically and hemodynamically stable - wean fio2 for spo2 > 90% - hob at 30 degrees, vent bundle, nebs Acute Encephalopathy Acute meningitis, possible bacterial - LP with elevated protein, and low glucose relative to serum glucose. - CT head negative - Neuro checks per unit protocol - f/u MRI History of fungal endocarditis Staph Bacteremia - History of IVDA - Broad-spectrum antibiotic and antiviral and antifungal - Infectious disease consultation - f/u repeat echo Septic Shock - Septic shock - Aggressive IV fluid hydration - Broad-spectrum antibiotic - Levophed when necessary to keep MAP above 65 Acute Kidney Injury -secondary to septic shock - ivf hydration - trend. - pedroza catheter Acute Protein calorie malnutrition- severe - secondary to long-standing IVDA and endocarditis - start TF DVT GI prophylaxis - Teds SCDs - Subcutaneous heparin - Pepcid Critical Care: The total critical care time was 44 minutes. Time to perform other separately billable procedures was not included in the critical care time. Luke Hernandes MD Feb 27, 2017 13:02
--- NOTE | 2017-02-27 13:04 | PD.PROCEDR ---
Procedure Note Procedure Central Line Procedure Note Left subclavian 7 Palau[place] triple lumen catheter Diagnosis: Infective endocarditis Indications: Need for highly potent vasoactive substances Consent: Emergent Anesthesia: None Description of the Procedure: The patient was placed in the supine, mild- Trendelenburg position. The area was prepped and draped sterilely. A 19g needle was inserted under negative pressure aspiration and dark venous blood was obtained. A guidewire was inserted easily without resistance. A small incision was made using a #11 blade. Using a modified Seldinger technique, the dilator and 7 Palauan, 20 cm catheter were advanced over the guidewire without resistance. All ports were aspirated and flushed, and had brisk blood return. The line was secured at 20 cm at the skin using 2-0 silk interrupted sutures. A Biopatch and Transparent sterile dressing were applied. There were no immediate complications noted. There was minimal EBL. The patient tolerated the procedure well. Ultrasound guidance was not used for this procedure A Chest x-ray has been ordered. I personally performed the procedure. Luke Hernandes MD Feb 27, 2017 13:04
--- NOTE | 2017-02-27 13:57 | EKG ---
Date Performed: 02/26/2017 Time Performed: 19:38:32 PTAGE: 36 years EKG: Probable sinus tachycardia, although atrial flutter cannot be entirely excluded. RIGHT BUND LE BRANCH BLOCK ABNORMAL ECG PREVIOUS TRACING 01/08/16 Rhythm strip is advised. Since the prior tracing, there has been an in crease in the sinus tachycardia and some variation in the ST-T wave changes, but no other significant serial change. DOCTOR: Allie Bahena Interpretating Date/Time 02/27/2017 13:57:00
--- NOTE | 2017-02-27 13:59 | EKG ---
Date Performed: 02/26/2017 Time Performed: 20:19:27 PTAGE: 36 years EKG: Probable sinus tachycardia, although atrial flutter cannot be excluded. INDETERMINATE AXIS RIGHT BUNDLE BRANCH BLOCK ABNORMAL ECG PREVIOUS TRACING 02/26/17 Since the prior tracing, there has been an increase in the heart rate and the patient now has evidence of a fairly extreme sinus tachycardia. There has otherwise been no significant serial change. DOCTOR: Allie Bahena Interpretating Date/Time 02/27/2017 13:58:22
--- NOTE | 2017-02-27 14:40 | PD.ID.CON ---
History of Present Illness Service ID Consult Requested By Dr Elaine Reason for Consult sepsis, endocarditis ? Primary Care Physician Unknown Diagnoses: History of Present Illness 36-year-old female with long standing h/o IVDU sp AVRx 2 and tricuspid valve surgery who presents initially as a stroke alert. Per EMS report the patient apparently complained of a headache earlier today, was found lying on the floor and incontinent of stool at approximate, last seen normal at 6:45 PM. Therefore, EMS called a stroke alert in the field as the patient was aphasic and confused. Upon arrival the patient groans, moves all 4 extremities and withdraws all 4 extremities, but is unable to provide any information. She was intubated in the emergency department by ER attending for airway protection. SHe remains intubated LP was done and CSF is c bacterial infx (WBC 1800+ 97% neutrophils, protein 180) , culture neg @ 24 hrs Blood clx growintg MSSA / bottles Previously she had MSSA PVE in Jul 2015 and Entrococcal PVE in December 2015. 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 Hepatitis C, IV drug use, Past Surgical History AVR 2010 Redo AVR 12/2015 history of left forearm surgery. Active Ordered Medications Medications where reviewed in EMR Antibiotics Include: AMB Acyclovir CTX vanco Family History reviewed. Non-Contributory. Social History No Tobacco. No ETOH. IVDA, active Physical Exam Vital Signs Vital Signs Date Time Temp Pulse Resp B/P (MAP) Pulse Ox O2 Delivery O2 Flow Rate FiO2 02/27/17 13:25 115 95/62 02/27/17 13:03 100 40 02/27/17 12:00 114 02/27/17 12:00 40 02/27/17 11:28 100.2 114 38 89/52 (64) 100 02/27/17 11:15 100.2 111 44 97/66 (76) 100 02/27/17 11:00 100.2 106 31 95/61 (72) 100 02/27/17 10:45 100.4 106 34 92/64 (73) 100 02/27/17 10:30 100.4 106 29 90/62 (71) 100 02/27/17 10:15 100.4 108 31 96/68 (77) 100 02/27/17 10:00 100.4 105 24 95/69 (78) 100 02/27/17 10:00 105 02/27/17 09:45 100.6 106 31 93/68 (76) 100 02/27/17 09:41 107 90/66 02/27/17 09:30 100.6 107 33 90/66 (74) 100 02/27/17 09:15 100.6 107 32 91/66 (74) 100 02/27/17 09:13 100 45 02/27/17 09:00 100.8 109 32 88/68 (75) 100 02/27/17 08:45 100.8 109 30 90/62 (71) 100 02/27/17 08:30 100.9 109 30 89/60 (70) 100 02/27/17 08:15 100.9 111 31 89/64 (72) 100 02/27/17 08:00 109 02/27/17 08:00 100.6 109 31 96/69 (78) 100 02/27/17 08:00 50 02/27/17 07:46 100.9 109 31 95/65 (75) 100 02/27/17 07:40 100.9 109 32 97/68 (78) 100 02/27/17 07:20 100.8 111 31 93/63 (73) 100 02/27/17 07:00 100.8 111 32 92/62 (72) 100 02/27/17 06:00 114 02/27/17 04:00 117 02/27/17 04:00 102.0 117 33 93/64 (74) 100 02/27/17 04:00 50 02/27/17 03:47 121 90/61 02/27/17 03:36 02/27/17 03:07 102.4 116 33 86/58 (67) 100 02/27/17 03:06 116 02/27/17 03:00 100 50 02/27/17 01:00 102.6 118 30 107/62 (77) 100 02/27/17 00:32 102.6 122 30 95/57 (70) 100 02/27/17 00:31 102.6 116 30 97/58 (71) 100 02/27/17 00:30 102.6 116 30 96/59 (71) 100 02/27/17 00:15 102.6 116 31 97/53 (68) 100 02/27/17 00:00 102.2 113 30 96/52 (67) 100 02/26/17 23:45 102.2 117 31 92/53 (66) 100 02/26/17 23:35 102.2 121 31 93/55 (68) 100 02/26/17 23:25 102.2 112 30 96/52 (67) 100 02/26/17 23:23 102.2 117 30 93/51 (65) 100 02/26/17 23:19 102.6 117 30 94/51 (65) 100 02/26/17 23:09 102.6 113 33 92/56 (68) 100 02/26/17 22:59 102.6 114 59 94/60 (71) 100 02/26/17 22:49 102.9 113 29 97/59 (72) 100 02/26/17 22:39 102.9 113 28 92/55 (67) 100 02/26/17 22:29 102.9 115 27 94/54 (67) 100 02/26/17 22:19 102.9 112 26 99/58 (72) 100 02/26/17 22:09 103.3 112 25 95/58 (70) 100 02/26/17 22:05 103.3 114 50 99/56 (70) 100 02/26/17 22:03 101.9 119 16 90/70 (77) 92 02/26/17 21:40 103.6 108 34 88/57 (67) 100 02/26/17 21:35 103.6 115 23 84/56 (65) 100 02/26/17 21:30 104.0 110 26 85/55 (65) 100 02/26/17 21:11 96 50 02/26/17 21:00 156 78/38 02/26/17 20:58 98 50 02/26/17 20:07 100 40 02/26/17 20:00 100 100 02/26/17 19:57 104.6 156 32 118/76 (90) 100 02/26/17 19:40 100 100 02/26/17 19:40 103.6 123 32 123/90 (101) 96 02/26/17 19:34 50 02/26/17 19:30 96 4.00 Physical Exam CONSTITUTIONAL/GENERAL: This is an adequately nourished patient, in no apparent distress. Sedated, int'd on [facility] vent TUBES/LINES/DRAINS: SKIN: No jaundice, rashes, or lesions. Skin temperature appropriate. Not diaphoretic. No [place] lesions HEAD: Atraumatic. Normocephalic. EYES: Pupils pinpoint, non reactive equal and round . No scleral icterus. No injection or drainage. Fundi not examined. ENT: Hearing grossly normal. Nose without bleeding or purulent drainage. Oral musosae without visible erythema, exudates, masses, or lesions. NECK: Trachea midline. Supple, nontender. CARDIOVASCULAR: Regular rate and rhythm without murmurs, gallops, or rubs. Mechanical heart sounds No JVD. Peripheral pulses symmetric. RESPIRATORY/CHEST: Symmetric, unlabored respirations. Scattered rhonchi to auscultation. Breath sounds equal bilaterally. GASTROINTESTINAL: Abdomen soft, non-tender, moderately distended. No hepato- splenomegaly, or palpable masses. No guarding. Bowel sounds present, hypoactive GENITOURINARY: Without palpable bladder distension. Watson catheter in place with clear yellow urine MUSCULOSKELETAL: Extremities without clubbing, + mild cyanosis of toes 2+ edema. No joint tenderness or effusion noted. No calf tenderness. LYMPHATICS: No palpable cervical or supraclavicular adenopathy. NEUROLOGICAL:Sedfated. Unresponsive. Per RN unresponsive of sedation PSYCHIATRIC: unable to assess Laboratory Laboratory Tests Test 02/26/17 19:30 02/26/17 20:30 02/26/17 21:00 02/26/17 21:23 White Blood Count 18.8 Red Blood Count 4.13 Hemoglobin 9.9 Bedside Hemoglobin 10.9 Hematocrit 31.1 Bedside Hematocrit 32.0 Mean Corpuscular Volume 75.4 Mean Corpuscular Hemoglobin 24.0 Mean Corpuscular Hemoglobin Concent 31.9 Red Cell Distribution Width 15.5 Platelet Count 200 Mean Platelet Volume 7.7 Neutrophils (%) (Auto) 93.8 Lymphocytes (%) (Auto) 2.2 Monocytes (%) (Auto) 3.7 Eosinophils (%) (Auto) 0.0 Basophils (%) (Auto) 0.3 Neutrophils # (Auto) 17.7 Lymphocytes # (Auto) 0.4 Monocytes # (Auto) 0.7 Eosinophils # (Auto) 0.0 Basophils # (Auto) 0.0 CBC Comment AUTO DIFF Differential Total Cells Counted 100 Neutrophils % (Manual) 62 Band Neutrophils % 34 Lymphocytes % 2 Monocytes % 2 Neutrophils # (Manual) 18.0 Differential Comment FINAL DIFF MANUAL Platelet Estimate NORMAL Platelet Morphology Comment NORMAL Ovalocytes 2+ Prothrombin Time 15.4 Prothromb Time International Ratio 1.4 Activated Partial Thromboplast Time 43.2 Fibrinogen 289 Bedside Sodium 133 Bedside Potassium 3.3 Bedside Chloride 98 Bedside Blood Urea Nitrogen 15 Bedside Creatinine 0.7 Bedside Glucose 139 Total Creatine Kinase 103 Troponin I 0.61 Human Chorionic Gonadotropin, Quant LESS THAN 1 Urine Color YELLOW Urine Turbidity HAZY Urine pH 6.0 Urine Specific [place] 1.027 Urine Protein 300 Urine Glucose (UA) NEG Urine Ketones NEG Urine Occult Blood MOD Urine Nitrite NEG Urine Bilirubin NEG Urine Urobilinogen LESS THAN 2.0 Urine Leukocyte Esterase TRACE Urine RBC 27 Urine WBC 31 Urine Squamous Epithelial Cells 2 Urine Bacteria OCC Urine Opiates Screen POS Urine Barbiturates Screen NEG Urine Amphetamines Screen NEG Urine Benzodiazepines Screen POS Urine Cocaine Screen NEG Urine Cannabinoids Screen POS Lactic Acid Level 3.3 Ammonia 60 Blood Gas Puncture Site RT RADIAL Blood Gas Patient Temperature 98.6 Blood Gas HCO3 17 Blood Gas Base Excess -7.4 Blood Gas Oxygen Saturation 98 Arterial Blood pH 7.36 Arterial Blood Partial Pressure CO2 31 Arterial Blood Partial Pressure O2 206 Arterial Blood Oxygen Content 12.9 Arterial Blood Carboxyhemoglobin 1.2 Arterial Blood Methemoglobin 0.2 Blood Gas Hemoglobin 9.0 Oxygen Delivery Device VENTILATOR Blood Gas Ventilator Setting AC/RR14/VT550/PEEP5 Blood Gas Inspired Oxygen 50 Test 02/26/17 22:00 02/26/17 23:40 02/27/17 01:40 02/27/17 03:00 CSF Volume (Tube 1) 3.4 CSF Supernatant Color (tube 1) CLEAR CSF Gross Blood (Tube 1) 3+ CSF Volume (Tube 2) 2.9 CSF Supernatant Color (tube 2) CLEAR CSF Gross Blood (Tube 2) 4+ CSF Volume (Tube 3) 3.0 CSF Supernatant Color (tube 3) CLEAR CSF Gross Blood (Tube 3) 3+ CSF Volume (Tube 4) 3.8 CSF Supernatant Color (tube 4) CLEAR CSF Gross Blood (Tube 4) 4+ CSF WBC (Tube 4) 1846 CSF RBC (Tube 4) 1909 CSF Neutrophils 97 CSF Lymphocytes 1 CSF Monocytes 2 CSF Glucose 68 CSF Lactate Dehydrogenase 38 CSF Lactic Acid 4.9 CSF Total Protein 180.9 Lactic Acid Level 2.8 Troponin I 1.91 Nasal Screen MRSA (PCR) MRSA NOT DETECTED Test 02/27/17 04:50 02/27/17 12:05 White Blood Count 18.6 Red Blood Count 4.16 Hemoglobin 10.0 Hematocrit 31.4 Mean Corpuscular Volume 75.5 Mean Corpuscular Hemoglobin 24.0 Mean Corpuscular Hemoglobin Concent 31.8 Red Cell Distribution Width 16.0 Platelet Count 137 Mean Platelet Volume 7.8 Neutrophils (%) (Auto) 93.7 Lymphocytes (%) (Auto) 3.3 Monocytes (%) (Auto) 2.4 Eosinophils (%) (Auto) 0.4 Basophils (%) (Auto) 0.2 Neutrophils # (Auto) 17.4 Lymphocytes # (Auto) 0.6 Monocytes # (Auto) 0.4 Eosinophils # (Auto) 0.1 Basophils # (Auto) 0.0 CBC Comment DIFF FINAL Differential Comment Prothrombin Time 18.9 Prothromb Time International Ratio 1.7 Blood Urea Nitrogen 27 Creatinine 1.30 Random Glucose 137 Total Protein 6.5 Albumin 2.8 Calcium Level 7.2 Phosphorus Level 3.2 3.0 Magnesium Level 1.4 Alkaline Phosphatase 93 Aspartate Amino Transf (AST/SGOT) 44 Alanine Aminotransferase (ALT/SGPT) 16 Total Bilirubin 0.7 Sodium Level 132 Potassium Level 2.7 Chloride Level 100 Carbon Dioxide Level 18.8 Anion Gap 13 Estimat Glomerular Filtration Rate 47 Lactic Acid Level 2.9 Protein Corrected Calcium 7.5 Date/Time Source Procedure Growth Status 02/26/17 20:22 Blood Peripheral Aerobic Blood Culture - Preliminary Gram Positive Cocci Resulted 02/26/17 20:22 Anaerobic Blood Culture - Preliminary Staphylococcus Aureus Resulted 02/26/17 22:00 Cerebral Spinal Fluid Lumbar Puncture Fungal Smear Pending Received 02/26/17 22:00 Cerebral Spinal Fluid Lumbar Puncture Fungal Culture Pending Received Result Diagram: 02/27/17 0450 02/27/17 0450 Assessment and Plan Assessment and Plan Probabale recurrent prosthetic valve endocarditis , PVE due to MSSA Previousy multiple episodes of PVE dw Dr Botello hospitalised in October 2016 for tricuspid valve PVE - [place] parapsolosis (September 20 thru October 21) , Streptoccii pt was Rx with combination diflucan 800 + micafungin 150, and was also on ambisionme at some point x 2 weeks and did not clear Probable bacterial meningitis ? MSSA Acute VDRF DUONG Elevated troponine ? cardiac injury from infx Critically ill , unstable cont AMB add fluconazole dc acyclovir dc vsancomycin start oxacillin + gentamin +RIfampin Dc CFTX if CSF clx neg or MSSA Discussed Condition With RN Ayan Benjamin, Swati Long MD Feb 27, 2017 14:40
[2017-02-27] MEDS ORDERED: Gentamicin Consult Pharmacy 1 EA OTHER SCH (15:30)
--- NOTE | 2017-02-27 16:19 | OTSOAPIP ---
TIME SESSION COMPLETED: AM TREATMENT TIME: 0 MINS. CHART REVIEWED. RECEIVED ORDERS FROM DR DARSHANA LO TO EVALUATE AND TREAT SINCE THEN PATIENT UNDERWENT CHANGE IN MEDICAL STATUS AND WAS REQUIRE TO BE INTUBATED. INTERDISCIPLINARY COMMUNICATION: SPOKE WITH NURSING PATIENT WILL REQUIRE RESTART ORDERS ONCE MEDICALLY STABLE PLAN: OCCUPATIONAL THERAPY SIGNING OFF WILL AWAIT NEW ORDER Therapist: TAJ RIVAS OTR/Christine Signature on file
[2017-02-27] MEDS: GENTAMICIN/SOD CHL 80 MG/100 ML IV SCH (17:24)
[2017-02-27] MEDS ORDERED: FLUCONAZOLE 400 MG PREMIX BAG 400 ML IV SCH ×2 (18:00→19:00)
[2017-02-27] MEDS: INSULIN NovoLIN REGULAR SUPPLEMENTAL SCALE SQ SCH (18:00)
[2017-02-27] MEDS ORDERED: FLUCONAZOLE/NACL 400 MG/200 ML IV SCH (18:00)
--- NOTE | 2017-02-27 18:21 | ECHRPT ---
Indication: cva/tia CONCLUSIONS The left ventricular systolic function is severely reduced with an estimated ejection fraction in th e range of 25-30%. Normal left ventricular size. Mild concentric left ventricular hypertrophy. [id number] mitral valve regurgitation. No mitral valve stenosis. AV repair meanThere is mild to moderate tricuspid valve regurgitation. The estimated pulmonary arterial pressure is _38_ mmHg. TV vegetation present The pulmonary valve is not well visualized. BP: / HR: Rhythm: MEASUREMENTS (Male / Female) Normal Values Technical Quality:Good 2D ECHO LV Diastolic Diameter PLAX 4.4 cm 4.2 - 5.9 / 3.9 - 5.3 cm LV Systolic Diameter PLAX 4.0 cm IVS Diastolic Thickness 1.2 cm 0.6 - 1.0 / 0.6 - 0.9 cm LVPW Diastolic Thickness 1.3 cm 0.6 - 1.0 / 0.6 - 0.9 cm LV Relative Wall Thickness 0.6 RV Internal Dim ED PLAX 2.8 cm LVOT Diameter 2.0 cm M-MODE Aortic Root Diameter MM 3.1 cm LA Systolic Diameter MM 4.3 cm LA Ao Ratio MM 1.4 AV Cusp Separation MM 1.4 cm DOPPLER AV Peak Velocity 323.0 cm/s AV Peak Gradient 41.7 mmHg AV Mean Gradient 25.0 mmHg AV Velocity Time Integral 63.6 cm LVOT Peak Velocity 78.2 cm/s LVOT Peak Gradient 2.4 mmHg LVOT Velocity Time Integral 12.5 cm AV Area Cont Eq vti 0.6 cm AV Area Cont Eq pk 0.8 cm TR Peak Velocity 263.0 cm/s TR Peak Gradient 27.7 mmHg FINDINGS LEFT VENTRICLE The left ventricular systolic function is severely reduced with an estimated ejection fraction in th e range of 25-30%. Normal left ventricular size. Mild concentric left ventricular hypertrophy. RIGHT VENTRICLE Normal right ventricular size and systolic function. LEFT ATRIUM The left atrial size is normal. RIGHT ATRIUM The right atrial size is normal. ATRIAL SEPTUM Normal atrial septal thickness without atrial level shunting by limited color doppler interrogation. AORTA The aortic root and proximal ascending aorta are normal in size on limited imaging. MITRAL VALVE [id number] mitral valve regurgitation. No mitral valve stenosis. AORTIC VALVE AV repair Av max 42mmHg, mean 25mmHg TRICUSPID VALVE There is mild to moderate tricuspid valve regurgitation. The estimated pulmonary arterial pressure is _38_ mmHg. TV vegetation PULMONARY VALVE The pulmonary valve is not well visualized. VESSELS The inferior vena cava is normal in size. PERICARDIUM No pericardial effusion. Frances Arizmendi MD, FACC (Electronically Signed) Final Date:27 February 2017 18:21
[2017-02-27] MEDS: OXACILLIN INJ 2 GM in SODIUM CHLORIDE 0.9% INJ 100 ML IV SCH ×2 (18:28→22:52)
--- NOTE | 2017-02-27 18:50 | PD.CONS ---
Consult Service Palliative Care . Consult Requested By Dr. Hernandes . Primary Care Physician Unknown . Reason for Consultation a. To assist with evaluation and management of symptoms including: dyspnea. b. To assist medical decision maker(s) with: better understanding of current medical conditions; weighing benefits/burdens of medical treatment options; making medical treatment decisions. . HPI History of Present Illness Miss Segal is a 36 year old female with past medical history of endocarditis, IV drug use, pneumonia and anxiety. Patient has a history of arteritis status post valve replacement in January 2016 at [facility]. Patient was on [facility] admitted on 02/15/17 and revoked 02/27/17. In review of Hospice notes patient elected FULL CODE indicating she wanted life support for 2 weeks. No written advanced directives completed, the family indicates patient may have completed at [facility]. Hospice notes indicate patient wanted to name her stepfather Karsten as healthcare surrogate though documentation was never completed. Patient was previously hospitalized at [facility] in October 2016 for tricuspid prosthetic valve endocarditis, [place] parapsolosis ( September 20 thru October 21) , Streptococci. She was treated with combination Diflucan and Micafungin and ambisionme for 2 weeks, timing not clear. Patient presented to [facility] on 02/26/17 as a stroke alert. Notes indicate patient reported a headache earlier in the day was found lying on the floor incontinent of stool. Upon EMS arrival patient was a phasic and confused. She was unable to provide any history, she was moving extremities and intermittently groaning. Since admission, lumbar puncture was done consistent with bacterial infection. 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 Infectious disease, Dr. Spaulding was consulted with continued antibiotic recommendations. She indicates that patient will need 8 weeks of IV antibiotic with lifetime oral regimen. Dr. Hernandes and Dr. Spaulding indicate overall prognosis poor, patient is not a candidate for surgical intervention. Palliative care is consulted to assist with further clarification of treatment goals. . 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 Past Surgical History Aortic valve replacement 2010 Redo aortic valve replacement 12/2015 - [facility] Left wrist cyst removed . Reported Medications Reported Meds & Active Scripts Active Kcl 20 Meq Tab (Potassium Chloride) 20 Meq Tabcr 20 Meq PO DAILY 30 Days Percocet 5-325 mg (Oxycodone/Acetaminophen) 1 Tab 1 Tab PO Q4H PRN Nebulizer (Miscellaneous Medication) Mis 1 Unit INH DIRECTED Resp: Albuterol/Ipratropium 2.5 Mg/0.5 Mg (Albuterol/Ipratropium) 1 Amp Nebu 1 Ampule INH Q4HR NEB PRN 30 Days Aldactone 25 mg (Spironolactone) 25 Mg Tab 25 Mg PO Q12HR 30 Days Metoprolol Tartrate 25 mg (Metoprolol Tartrate) 25 Mg Tab 25 Mg PO Q12HR 30 Days Furosemide 40 Mg Tab 40 Mg PO Q8H 30 Days . Current Medications Medications (Trade) Dose Ordered Sig/Jessica Route Start Time Stop Time Status Last Admin Propofol 100 ml @ 0 mls/hr TITRATE PRN IV 02/26/17 20:15 02/27/17 17:24 Norepinephrine Bitartrate 250 ml @ 7.5 mls/hr TITRATE PRN IV 02/26/17 21:30 02/27/17 17:24 (Brethine Inj) 1 mg UNSCH PRN SQ 02/26/17 21:30 (Tylenol) 650 mg Q6H PRN PO 02/26/17 21:30 (Morphine Inj) 2 mg Q2H PRN IV 02/26/17 21:30 (Pepcid Inj) 20 mg Q12HR IV PUSH 02/27/17 09:00 02/27/17 09:12 (Tears Naturale Opth Soln) 1 drop TID EACH EYE 02/27/17 09:00 (Zofran Inj) 4 mg Q6H PRN IV 02/26/17 21:30 (Duoneb Neb) 1 ampule Q2HR NEB PRN INH 02/26/17 21:30 (Heparin Inj) 5,000 units Q12H SQ 02/26/17 22:00 02/27/17 09:11 Miscellaneous Information 1 Q361D XX 02/26/17 21:30 02/26/17 21:30 (Chlorhexidine 2% Cloth) 3 pack Taper DAILY@04 TOP 02/27/17 04:00 02/23/18 03:59 02/27/17 04:00 (Chlorhexidine 2% Cloth) 3 pack UNSCH PRN TOP 02/26/17 21:30 (Armida-Colace) 1 tab BID PO 02/27/17 09:00 02/27/17 09:12 (Milk Of Magnesia Liq) 30 ml Q12H PRN PO 02/26/17 21:30 (Senokot) 17.2 mg Q12H PRN PO 02/26/17 21:30 (Dulcolax Supp) 10 mg DAILY PRN RECTAL 02/26/17 21:30 (Lactulose Liq) 30 ml DAILY PRN PO 02/26/17 21:30 (NS Flush) 2 ml UNSCH PRN IV FLUSH 02/26/17 22:45 (NS Flush) 2 ml BID IV FLUSH 02/27/17 09:00 02/27/17 09:11 Ceftriaxone Sodium 2000 mg/ Sodium Chloride 100 ml @ 200 mls/hr Q12H IV 02/27/17 08:00 02/27/17 07:55 Amphotericin B Liposome 340 mg/ Dextrose 250 ml @ 125 mls/hr Q24H IV 02/27/17 02:00 02/27/17 02:00 Potassium Chloride 100 ml @ 50 mls/hr Q2H PRN IV 02/27/17 06:00 02/27/17 07:54 Potassium Chloride 100 ml @ 50 mls/hr Q2H PRN IV 02/27/17 06:00 (K-Lyte Cl Eff) 50 meq UNSCH PRN PO 02/27/17 06:00 Potassium Chloride 100 ml @ 25 mls/hr UNSCH PRN IV 02/27/17 06:00 Potassium Chloride 100 ml @ 50 mls/hr Q2H PRN IV 02/27/17 06:00 Magnesium Sulfate 4 gm/Sodium Chloride 100 ml @ 50 mls/hr UNSCH PRN IV 02/27/17 06:00 (Mag-Ox) 800 mg UNSCH PRN PO 02/27/17 06:00 Magnesium Sulfate 2 gm/Sodium Chloride 100 ml @ 50 mls/hr UNSCH PRN IV 02/27/17 06:00 (K-Phos) 2,000 mg Q4H PRN PO 02/27/17 06:00 Sodium Phosphate 30 mmol/Sodium Chloride 250 ml @ 42 mls/hr UNSCH PRN IV 02/27/17 06:00 (K-Phos) 2,000 mg UNSCH PRN PO/TUBE 02/27/17 06:00 Potassium Phosphate 30 mmol/ Sodium Chloride 260 ml @ 42 mls/hr UNSCH PRN IV 02/27/17 06:00 Fentanyl Citrate 250 ml @ 0 mls/hr TITRATE IV 02/27/17 13:00 02/27/17 14:38 (D50w (Vial) Inj) 25 ml UNSCH PRN IV PUSH 02/27/17 13:00 (NovoLIN R SUPPLEMENTAL SCALE) 1 Q6HR SQ 02/27/17 18:00 Oxacillin Sodium 2 gm/Sodium Chloride 100 ml @ 200 mls/hr Q4H IV 02/27/17 18:00 Pharmacy Profile Note 0 ml @ 0 mls/hr UNSCH OTHER 02/27/17 15:30 Rifampin 300 mg/ Sodium Chloride 100 ml @ 100 mls/hr Q12H IV 02/27/17 21:00 Gentamicin Sulfate/Sodium Chloride 100 ml @ 200 mls/hr Q8H IV 02/27/17 18:00 02/27/17 17:24 Miscellaneous Information SPECIFIC LAB TO BE DRAWN:GENTAMICIN TROUGH DATE TO... ONCE ONCE .XX 02/28/17 09:45 02/28/17 09:46 Miscellaneous Information SPECIFIC LAB TO BE DRAWN:GENTAMICIN PEAK DATE TO... ONCE ONCE .XX 02/28/17 11:30 02/28/17 11:31 Fluconazole/ Sodium Chloride 200 ml @ 100 mls/hr Q24H IV 02/27/17 20:00 Fluconazole/ Sodium Chloride 200 ml @ 100 mls/hr Q24H IV 02/27/17 22:00 Family History Mother alive. Has 2 sons. Sister with drug abuse. . Substance Use Per mother report and EMR review: Tobacco: Smokes daily. Alcohol: Drinks 3-5 alcoholic beverages daily. Prescription med abuse: Has prescription meds, uses more than prescribed on a regular basis. Illicits: IV drug abuse and Marijuana. Has used drugs since 19 years of age. . Psychosocial History From [place]. High school graduate. No college. IV drug use since she was 19. Recently worked at [employer]. Single, has a boyfriend Dc. Has 2 juvenile children, ages 11 (pts mother has had custody of him since ) and 9 lives with patient (his biologic father not involved, her boyfriend Dc has been caring for the child and is planning to get temporary custody). She is supported by her mother, Fany (in ), her [id number], Karl (lives [facility]) and boyfriend, Dc Lives [facility]. . Spiritual/Cultural Factors Unknown. . Living Will: Never completed Health Care Surrogate: Never completed Durable Power of Procurement Engineer: Never completed Health Care Surrogate(s): No known written advanced directives, family is going to try to find HCS paperwork they think pt previously completed. Patient a single. Children are juvenile. If no written advanced directives, according to [place] statutes health care proxy decision-making falls to a parent. . Ethical and Legal Issues No known written advanced directives, family is going to try to find HCS paperwork they think pt previously completed. Patient a single. Children are juvenile. If no written advanced directives, according to [place] statutes health care proxy decision-making falls to a parent. . Physical Exam Vital Signs Date Time Temp Pulse Resp B/P (MAP) Pulse Ox O2 Delivery O2 Flow Rate FiO2 02/27/17 17:24 115 90/61 02/27/17 13:25 115 95/62 02/27/17 13:03 100 40 02/27/17 12:00 114 02/27/17 12:00 40 02/27/17 11:28 100.2 114 38 89/52 (64) 100 02/27/17 11:15 100.2 111 44 97/66 (76) 100 02/27/17 11:00 100.2 106 31 95/61 (72) 100 02/27/17 10:45 100.4 106 34 92/64 (73) 100 02/27/17 10:30 100.4 106 29 90/62 (71) 100 02/27/17 10:15 100.4 108 31 96/68 (77) 100 02/27/17 10:00 100.4 105 24 95/69 (78) 100 02/27/17 10:00 105 02/27/17 09:45 100.6 106 31 93/68 (76) 100 02/27/17 09:41 107 90/66 02/27/17 09:30 100.6 107 33 90/66 (74) 100 02/27/17 09:15 100.6 107 32 91/66 (74) 100 02/27/17 09:13 100 45 02/27/17 09:00 100.8 109 32 88/68 (75) 100 02/27/17 08:45 100.8 109 30 90/62 (71) 100 02/27/17 08:30 100.9 109 30 89/60 (70) 100 02/27/17 08:15 100.9 111 31 89/64 (72) 100 02/27/17 08:00 109 02/27/17 08:00 100.6 109 31 96/69 (78) 100 02/27/17 08:00 50 02/27/17 07:46 100.9 109 31 95/65 (75) 100 02/27/17 07:40 100.9 109 32 97/68 (78) 100 02/27/17 07:20 100.8 111 31 93/63 (73) 100 02/27/17 07:00 100.8 111 32 92/62 (72) 100 02/27/17 06:00 114 02/27/17 04:00 117 02/27/17 04:00 102.0 117 33 93/64 (74) 100 02/27/17 04:00 50 02/27/17 03:47 121 90/61 02/27/17 03:36 02/27/17 03:07 102.4 116 33 86/58 (67) 100 02/27/17 03:06 116 02/27/17 03:00 100 50 02/27/17 01:00 102.6 118 30 107/62 (77) 100 02/27/17 00:32 102.6 122 30 95/57 (70) 100 02/27/17 00:31 102.6 116 30 97/58 (71) 100 02/27/17 00:30 102.6 116 30 96/59 (71) 100 02/27/17 00:15 102.6 116 31 97/53 (68) 100 02/27/17 00:00 102.2 113 30 96/52 (67) 100 02/26/17 23:45 102.2 117 31 92/53 (66) 100 02/26/17 23:35 102.2 121 31 93/55 (68) 100 02/26/17 23:25 102.2 112 30 96/52 (67) 100 02/26/17 23:23 102.2 117 30 93/51 (65) 100 02/26/17 23:19 102.6 117 30 94/51 (65) 100 02/26/17 23:09 102.6 113 33 92/56 (68) 100 02/26/17 22:59 102.6 114 59 94/60 (71) 100 02/26/17 22:49 102.9 113 29 97/59 (72) 100 02/26/17 22:39 102.9 113 28 92/55 (67) 100 02/26/17 22:29 102.9 115 27 94/54 (67) 100 02/26/17 22:19 102.9 112 26 99/58 (72) 100 02/26/17 22:09 103.3 112 25 95/58 (70) 100 02/26/17 22:05 103.3 114 50 99/56 (70) 100 02/26/17 22:03 101.9 119 16 90/70 (77) 92 02/26/17 21:40 103.6 108 34 88/57 (67) 100 02/26/17 21:35 103.6 115 23 84/56 (65) 100 02/26/17 21:30 104.0 110 26 85/55 (65) 100 02/26/17 21:11 96 50 02/26/17 21:00 156 78/38 02/26/17 20:58 98 50 02/26/17 20:07 100 40 02/26/17 20:00 100 100 02/26/17 19:57 104.6 156 32 118/76 (90) 100 02/26/17 19:40 100 100 02/26/17 19:40 103.6 123 32 123/90 (101) 96 02/26/17 19:34 50 02/26/17 19:30 96 4.00 02/27/17 02/28/17 19:00 07:00 Intake Total 262 ml Balance 262 ml Intake IV Total 262 ml Exam CONSTITUTIONAL/GENERAL: This is an adequately nourished patient, sedated on mechanical ventilation. TUBES/LINES/DRAINS: ETT, NG, left subclavian centerline, PIV right AC, Watson, SCDs. SKIN: No jaundice, rashes, or lesions. Skin temperature appropriate. Not diaphoretic. HEAD: Atraumatic. Normocephalic. EYES: Pupils pinpoint, non reactive equal and round. No scleral icterus. No injection or drainage. ENT: Unable to assess hearing. Nose with NG tube right nare. Throat difficult to visualize due to ETT. NECK: Trachea midline. CARDIOVASCULAR: tachycardic, regular rhythm. No JVD. Peripheral pulses symmetric. RESPIRATORY/CHEST: Symmetric, unlabored respirations on vent. Scattered rhonchi to auscultation. GASTROINTESTINAL: Abdomen soft, moderately distended. Bowel sounds hypoactive. GENITOURINARY: Without palpable bladder distension. Watson catheter in place. MUSCULOSKELETAL: Extremities without clubbing, mild cyanosis of toes, 2+ edema. LYMPHATICS: No palpable cervical or supraclavicular adenopathy. NEUROLOGICAL: Sedated. Unresponsive. No withdrawal to painful stimuli. PSYCHIATRIC: sedated: unable to assess. . Diagnostic Tests Laboratory Laboratory Tests Test 02/26/17 19:30 02/26/17 20:30 02/26/17 21:00 02/26/17 21:23 White Blood Count 18.8 TH/MM3 (4.0-11.0) Red Blood Count 4.13 MIL/MM3 (4.00-5.30) Hemoglobin 9.9 GM/DL (11.6-15.3) Bedside Hemoglobin 10.9 G/DL (12.0-17.0) Hematocrit 31.1 % (35.0-46.0) Bedside Hematocrit 32.0 % (38.0-51.0) Mean Corpuscular Volume 75.4 FL (80.0-100.0) Mean Corpuscular Hemoglobin 24.0 PG (27.0-34.0) Mean Corpuscular Hemoglobin Concent 31.9 % (32.0-36.0) Red Cell Distribution Width 15.5 % (11.6-17.2) Platelet Count 200 TH/MM3 (150-450) Mean Platelet Volume 7.7 FL (7.0-11.0) Neutrophils (%) (Auto) 93.8 % (16.0-70.0) Lymphocytes (%) (Auto) 2.2 % (9.0-44.0) Monocytes (%) (Auto) 3.7 % (0.0-8.0) Eosinophils (%) (Auto) 0.0 % (0.0-4.0) Basophils (%) (Auto) 0.3 % (0.0-2.0) Neutrophils # (Auto) 17.7 TH/MM3 (1.8-7.7) Lymphocytes # (Auto) 0.4 TH/MM3 (1.0-4.8) Monocytes # (Auto) 0.7 TH/MM3 (0-0.9) Eosinophils # (Auto) 0.0 TH/MM3 (0-0.4) Basophils # (Auto) 0.0 TH/MM3 (0-0.2) CBC Comment AUTO DIFF Differential Total Cells Counted 100 Neutrophils % (Manual) 62 % (16-70) Band Neutrophils % 34 % (0-6) Lymphocytes % 2 % (9-44) Monocytes % 2 % (0-8) Neutrophils # (Manual) 18.0 TH/MM3 (1.8-7.7) Differential Comment FINAL DIFF MANUAL Platelet Estimate NORMAL (NORMAL) Platelet Morphology Comment NORMAL (NORMAL) Ovalocytes 2+ (NORMAL) Prothrombin Time 15.4 SEC (9.8-11.6) Prothromb Time International Ratio 1.4 RATIO Activated Partial Thromboplast Time 43.2 SEC (24.3-30.1) Fibrinogen 289 mg/dL (227-377) Bedside Sodium 133 MMOL/L (138-146) Bedside Potassium 3.3 MMOL/L (3.5-4.9) Bedside Chloride 98 MMOL/L (98-109) Bedside Blood Urea Nitrogen 15 MG/DL (8-26) Bedside Creatinine 0.7 MG/DL (0.6-1.0) Bedside Glucose 139 MG/DL (60-95) Total Creatine Kinase 103 U/L (26-192) Troponin I 0.61 NG/ML (0.02-0.05) Human Chorionic Gonadotropin, Quant LESS THAN 1 MIU/ML (0-5) Urine Color YELLOW (YELLW/STRAW) Urine Turbidity HAZY (CLEAR) Urine pH 6.0 (5.0-8.5) Urine Specific [place] 1.027 (1.002-1.035) Urine Protein 300 mg/dL (NEG-TRACE) Urine Glucose (UA) NEG mg/dL (NEG) Urine Ketones NEG mg/dL (NEG) Urine Occult Blood MOD (NEG) Urine Nitrite NEG (NEG) Urine Bilirubin NEG (NEG) Urine Urobilinogen LESS THAN 2.0 MG/DL (LESS Urine Leukocyte Esterase TRACE (NEG) Urine RBC 27 /hpf (0-3) Urine WBC 31 /hpf (0-5) Urine Squamous Epithelial Cells 2 /hpf (0-5) Urine Bacteria OCC /hpf (NONE) Urine Opiates Screen POS (NEG) Urine Barbiturates Screen NEG (NEG) Urine Amphetamines Screen NEG (NEG) Urine Benzodiazepines Screen POS (NEG) Urine Cocaine Screen NEG (NEG) Urine Cannabinoids Screen POS (NEG) Lactic Acid Level 3.3 mmol/L (0.4-2.0) Ammonia 60 MCMOL/L (11-32) Blood Gas Puncture Site RT RADIAL Blood Gas Patient Temperature 98.6 Blood Gas HCO3 17 mmol/L (22-26) Blood Gas Base Excess -7.4 mmol/L (-2-2) Blood Gas Oxygen Saturation 98 % (90-100) Arterial Blood pH 7.36 (7.380-7.420) Arterial Blood Partial Pressure CO2 31 mmHg (38-42) Arterial Blood Partial Pressure O2 206 mmHG (61-120) Arterial Blood Oxygen Content 12.9 Vol % (12.0-20.0) Arterial Blood Carboxyhemoglobin 1.2 % (0-4) Arterial Blood Methemoglobin 0.2 % (0-2) Blood Gas Hemoglobin 9.0 G/DL (12.0-16.0) Oxygen Delivery Device VENTILATOR Blood Gas Ventilator Setting AC/RR14/VT550/PEEP5 Blood Gas Inspired Oxygen 50 % Test 02/26/17 22:00 02/26/17 23:40 02/27/17 01:40 02/27/17 03:00 CSF Volume (Tube 1) 3.4 ML CSF Supernatant Color (tube 1) CLEAR (CLEAR) CSF Gross Blood (Tube 1) 3+ (0) CSF Volume (Tube 2) 2.9 ML CSF Supernatant Color (tube 2) CLEAR (CLEAR) CSF Gross Blood (Tube 2) 4+ (0) CSF Volume (Tube 3) 3.0 ML CSF Supernatant Color (tube 3) CLEAR (CLEAR) CSF Gross Blood (Tube 3) 3+ (0) CSF Volume (Tube 4) 3.8 ML CSF Supernatant Color (tube 4) CLEAR (CLEAR) CSF Gross Blood (Tube 4) 4+ (0) CSF WBC (Tube 4) 1846 /MM3 (0-10) CSF RBC (Tube 4) 1909 /MM3 (NONE) CSF Neutrophils 97 % CSF Lymphocytes 1 % CSF Monocytes 2 % CSF Glucose 68 MG/DL (40-80) CSF Lactate Dehydrogenase 38 U/L CSF Lactic Acid 4.9 MMOL/L (0.0-3.0) CSF Total Protein 180.9 MG/DL (15.0-45.0) Lactic Acid Level 2.8 mmol/L (0.4-2.0) Troponin I 1.91 NG/ML (0.02-0.05) Nasal Screen MRSA (PCR) MRSA NOT DETECTED (NOT Test 02/27/17 04:50 02/27/17 12:05 White Blood Count 18.6 TH/MM3 (4.0-11.0) Red Blood Count 4.16 MIL/MM3 (4.00-5.30) Hemoglobin 10.0 GM/DL (11.6-15.3) Hematocrit 31.4 % (35.0-46.0) Mean Corpuscular Volume 75.5 FL (80.0-100.0) Mean Corpuscular Hemoglobin 24.0 PG (27.0-34.0) Mean Corpuscular Hemoglobin Concent 31.8 % (32.0-36.0) Red Cell Distribution Width 16.0 % (11.6-17.2) Platelet Count 137 TH/MM3 (150-450) Mean Platelet Volume 7.8 FL (7.0-11.0) Neutrophils (%) (Auto) 93.7 % (16.0-70.0) Lymphocytes (%) (Auto) 3.3 % (9.0-44.0) Monocytes (%) (Auto) 2.4 % (0.0-8.0) Eosinophils (%) (Auto) 0.4 % (0.0-4.0) Basophils (%) (Auto) 0.2 % (0.0-2.0) Neutrophils # (Auto) 17.4 TH/MM3 (1.8-7.7) Lymphocytes # (Auto) 0.6 TH/MM3 (1.0-4.8) Monocytes # (Auto) 0.4 TH/MM3 (0-0.9) Eosinophils # (Auto) 0.1 TH/MM3 (0-0.4) Basophils # (Auto) 0.0 TH/MM3 (0-0.2) CBC Comment DIFF FINAL Differential Comment Prothrombin Time 18.9 SEC (9.8-11.6) Prothromb Time International Ratio 1.7 RATIO Blood Urea Nitrogen 27 MG/DL (7-18) Creatinine 1.30 MG/DL (0.50-1.00) Random Glucose 137 MG/DL (74-106) Total Protein 6.5 GM/DL (6.4-8.2) Albumin 2.8 GM/DL (3.4-5.0) Calcium Level 7.2 MG/DL (8.5-10.1) Phosphorus Level 3.2 MG/DL (2.5-4.9) 3.0 MG/DL (2.5-4.9) Magnesium Level 1.4 MG/DL (1.5-2.5) Alkaline Phosphatase 93 U/L (45-117) Aspartate Amino Transf (AST/SGOT) 44 U/L (15-37) Alanine Aminotransferase (ALT/SGPT) 16 U/L (10-53) Total Bilirubin 0.7 MG/DL (0.2-1.0) Sodium Level 132 MEQ/L (136-145) Potassium Level 2.7 MEQ/L (3.5-5.1) Chloride Level 100 MEQ/L (98-107) Carbon Dioxide Level 18.8 MEQ/L (21.0-32.0) Anion Gap 13 MEQ/L (5-15) Estimat Glomerular Filtration Rate 47 ML/MIN (>89) Lactic Acid Level 2.9 mmol/L (0.4-2.0) Protein Corrected Calcium 7.5 MG/DL (8.5-10.1) Troponin I 2.34 NG/ML (0.02-0.05) Result Diagram: 02/27/17 0450 02/27/17 0450 Microbiology Microbiology Date/Time Source Procedure Growth Status 02/26/17 20:22 Blood Peripheral Aerobic Blood Culture - Preliminary Staphylococcus Aureus Enterococcus Faecalis Resulted 02/26/17 20:22 Anaerobic Blood Culture - Preliminary Staphylococcus Aureus Resulted 02/26/17 20:15 Blood Peripheral Aerobic Blood Culture - Preliminary Gram Positive Cocci Resulted 02/26/17 20:15 Anaerobic Blood Culture - Preliminary Gram Positive Cocci Resulted 02/26/17 22:00 Cerebral Spinal Fluid Lumbar Puncture Fungal Smear - Final NO FUNGAL ELEMENTS SEEN. Resulted 02/26/17 22:00 Cerebral Spinal Fluid Lumbar Puncture Fungal Culture Pending Resulted 02/26/17 22:00 Cerebral Spinal Fluid Lumbar Puncture Acid Fast Stain Pending Received 02/26/17 22:00 Cerebral Spinal Fluid Lumbar Puncture Mycobacterial Culture Pending Received 02/26/17 22:00 Cerebral Spinal Fluid Lumbar Puncture Gram Stain - Final Resulted 02/26/17 22:00 Cerebral Spinal Fluid Lumbar Puncture CSF Culture - Preliminary NO GROWTH IN 24 HOURS. Resulted Imaging Last Impressions Head CT 02/26/17 0000 Signed Impressions: Service Date/Time: Sunday, February 26, 2017 19:47 - CONCLUSION: No evidence of acute infarct, hemorrhage, mass or edema. Ken Sanchez MD Chest X-Ray 02/26/17 0000 Signed Impressions: Service Date/Time: Sunday, February 26, 2017 21:06 - CONCLUSION: 1. Repositioning of endotracheal tube which is now in good position. 2. Interval placement of a right jugular central venous catheter which is in good position. 3. No evidence of pneumothorax. 4. Vascular congestive changes and mild left basilar airspace disease. Ken Sanchez MD . Procedures * 02/26/17 - left subclavian central placement. * 02/26/17 - lumbar puncture * 02/26/17 - Intubated. . Patient/Family Conference Present at Family Conference: Will attempt to call family in AM as they have spoken with hospice today to revoke services and reported desire to continue aggressive care including FULL CODE. . Assessment and Plan Disease Oriented Problem List: (1) Protein-calorie malnutrition, severe (2) Elevated troponin (3) Meningitis (4) Encephalopathy (5) Bacterial endocarditis (6) Polysubstance abuse (7) Sepsis (8) Acute kidney injury Symptom Scale: (1) Pain 0-10 Scale: Unable to quantify (2) Dyspnea 0-10 Scale: Unable to quantify (3) Encephalopathy 0-10 Scale: Unable to quantify Pertinent Non-Medical Issues Psychosocial: single. 2 juvenile children. Spiritual: Unknown. Legal: No known written advanced directives, family is going to try to find HCS paperwork they think pt previously completed. Patient a single. Children are juvenile. If no written advanced directives, according to [place] statutes health care proxy decision-making falls to a parent. Ethical issues impacting care: No known concerns at this time. . Important Contacts * Fany Nielsen, mother: [phone] * Karsten Nielsen, stepfather: [phone] . Prognosis Prognosis poor. Code Status: Full Code Plan * Decision Maker: No known written advanced directives, family is going to try to find HCS paperwork they think pt previously completed, will bring copy. Patient a single. Children are juvenile. If no written advanced directives, according to [place] statutes health care proxy decision-making falls to a parent. * FULL CODE - mother is considering NO CODE, she wants to speak with family first. * Palliative care spoke with mother via phone for 50 minutes. She has a good understanding of current critical illness. She has seen ongoing trajectory of decline and continued drug abuse. She understands infection will not be cured and that patient may not survive this hospitalization. She is asking appropriate questions. She feels patient should be DNR, wants to speak with additional family before making a final decision. * will attempt to call patient's mother in AM to introduce palliative care service, provide medical update and to further clarify treatment goals. She has spoken with hospice recently and revoked services with aggressive goals. * SYMPTOMS: Pain: No obvious signs of pain. Potential sources include endocarditis, bedbound status, tubes etc. Currently on fentanyl and propofol. Patient with likely high tolerance given history of IV drug use, will monitor effective medications. Dyspnea: remains sedated on mechanical ventilation. No new medication recommendations at this time. * Palliative care will continue to follow throughout hospital course to assist with symptom management and clarification of goals as needed. . Thank you for the opportunity to participate in the care of Ms. Segal. Attestation To help prompt me to consider important information that might be impacting today's encounter and assessment, information from prior notes written by myself or my colleagues may have been "brought forward" into today's note. My signature on this note, however, is an attestation that I personally performed the exam, history, and/or decision-making noted today, and, unless otherwise indicated, the interactions with patient, family, and staff as well as the review of records all occurred today. I also attest that the listed assessment and stated plan reflect my best clinical judgment today based on the combination of historical information, prior notes, and today's exam/ interactions. When time spent is documented, it refers only to time spent today by the signer, or if indicated, combined time spent today by collaborating physician/nurse practitioner. Shanice García Feb 27, 2017 18:50
[2017-02-27] MEDS: FLUCONAZOLE/NACL 400 MG/200 ML IV SCH ×2 (20:57→22:52)
[2017-02-27] MEDS ORDERED: VANCOMYCIN INJ 1,500 MG in SODIUM CHLORID 0.9% 500 ML INJ 500 ML IV SCH (21:00)
[2017-02-27] MEDS: RIFAMPIN INJ 300 MG in SODIUM CHLORIDE 0.9% INJ 100 ML IV SCH (22:52)
[2017-02-28] VITALS (47 sets, daily range): BP systolic 87–103; BP diastolic 57–72; PULSE 92–109; RESP 20–26; TEMP 99.2; O2SAT 97–100
[2017-02-28] MEDS: NOREPINEPHRINE-DEXTROSE DRIP 250 ML IV PRN (01:15)
[2017-02-28] MEDS ORDERED: WATE IV SCH ×2 (02:00)
[2017-02-28] MEDS ORDERED: DEXTROSE 5% IV SCH ×2 (02:00)
[2017-02-28] MEDS ORDERED: AMPHOTERICIN B LIPOSOME IV SCH ×2 (02:00)
[2017-02-28] MEDS: OXACILLIN INJ 2 GM in SODIUM CHLORIDE 0.9% INJ 100 ML IV SCH ×6 (02:14→22:24)
[2017-02-28] MEDS: GENTAMICIN/SOD CHL 80 MG/100 ML IV SCH ×2 (02:14→10:13)
[2017-02-28] MEDS: PROPOFOL 1000 MG/100 ML INJ 100 ML IV PRN ×7 (02:55→23:06)
[2017-02-28] MEDS: CHLORHEXIDINE GLUCONATE 2 % 1 PACK (2 CLOTHS) TOP SCH (04:00)
[2017-02-28 05:31] LABS: HEMATOCRIT 30.8 % (35.0-46.0); MEAN CELL VOLUME 74.6 FL (80.0-100.0); MEAN CORPUSCULAR HEMOGLOBIN 24.1 PG (27.0-34.0); MEAN CORPUSCULAR HGB CONC 32.3 % (32.0-36.0); PLATELET COUNT 138 TH/MM3 (150-450); RED BLOOD COUNT 4.13 MIL/MM3 (4.00-5.30); RED CELL DISTRIBUTION WIDTH 15.8 % (11.6-17.2); REVIEW FLAG FINAL; WHITE BLOOD COUNT 18.1 TH/MM3 (4.0-11.0)
[2017-02-28 05:56] LABS: BICARBONATE 19.9 MEQ/L (21.0-32.0); POTASSIUM 3.3 MEQ/L (3.5-5.1)
[2017-02-28] MEDS: INSULIN NovoLIN REGULAR SUPPLEMENTAL SCALE SQ SCH ×4 (06:00→18:00)
[2017-02-28] MEDS: POTASSIUM CHLOR 40 MEQ PREMIX 100 ML IV PRN (06:10)
[2017-02-28] MEDS: cefTRIAXone INJ 2,000 MG in SODIUM CHLORIDE 0.9% INJ 100 ML IV SCH (08:00)
--- NOTE | 2017-02-28 08:25 | MG ---
cc: ZAK CHURCHILL MD Lab No: Date: 02/27/17 Age: Sex: F Race: DATE OF [address] Whipple MEDICAL HISTORY History of headache, congestive heart failure, abuse of medication Percocet, Dilaudid, Oxycodone, Marijuana use, fungal endocarditis with IVAD, alcohol use, hepatitis C, and tobacco use. MEDICATIONS 1. Levophed 2. Ceftriaxone 3. Acyclovir 4. Norepinephrine 5. Diprivan 6. Versed. DESCRIPTION Slowing of the background activity superimposed by excess beta rhythm. There is polymorphic low amplitude delta and theta activity. Photic stimulation did not elicit a driving response.Hyperventilation was not done.There were no epileptiform discharges or electrographic seizures noted. INTERPRETATION This is an abnormal electroencephalogram due to generalized background slowing and encephalopathic pattern. Excess beta is a non specific finding that may be related to medications adverse effects such as benzo and barbiturates. There were no electrocardiographic seizures or epileptiform discharges. Clinical correlation is recommended. MD ZOILA Dutta/ /10:22 PM /8:15 AM MTDD
[2017-02-28] MEDS: RIFAMPIN INJ 300 MG in SODIUM CHLORIDE 0.9% INJ 100 ML IV SCH ×2 (09:00→20:05)
[2017-02-28] MEDS: DOCUSATE SODIUM 50 MG/SENNA 8.6 MG TAB PO SCH ×2 (09:00→20:05)
[2017-02-28] MEDS: ARTIFICIAL TEARS OPTH SOLN 15 ML BTL EACH EYE SCH ×3 (09:00→17:03)
[2017-02-28] MEDS: SODIUM CHLORIDE 0.9% FLUSH 10 ML FLUSH IV FLUSH SCH ×2 (09:00→20:04)
[2017-02-28] MEDS: FAMOTIDINE 20 MG/2 ML VIAL IV PUSH SCH ×2 (09:00→20:04)
[2017-02-28] MEDS ORDERED: PHARMACY ORDERED LAB ONE ×2 (09:45→11:30)
[2017-02-28] MEDS: HEPARIN SODIUM - SQ 10,000 UNITS/ML VIAL SQ SCH ×2 (10:13→20:04)
--- NOTE | 2017-02-28 10:19 | HHI.CCPN ---
Subjective Remarks/Hospital Course Hospital Course: 36-year-old female who presents initially as a stroke alert. According to EMS report the patient has a history of fungal endocarditis with previous IVDA. EMS states that the patient is currently on hospice, however, they are unsure if the patient is a DNR. EMS states the patient apparently complained of a headache earlier today, was found lying on the floor and incontinent of stool at approximate, last seen normal at 6:45 PM. Therefore, EMS called a stroke alert in the field as the patient was aphasic and confused. Upon arrival the patient groans, moves all 4 extremities and withdraws all 4 extremities, but is unable to provide any information. She was intubated in the emergency department by ER attending for airway protection. subjective: 02/27: remains encephalopathic. Blood cultures growing Staph in 4/4 bottles. 02/28: Remains sedated/ encephalopathic, orally intubated on mechanical ventilation. Objective Vital Signs Date Time Temp Pulse Resp B/P (MAP) Pulse Ox O2 Delivery O2 Flow Rate FiO2 02/28/17 09:04 99.2 93 23 102/72 (82) 99 02/28/17 08:00 35 02/26/17 19:30 4.00 02/26/17 19:30 Nasal Cannula Intake and Output 02/28/17 02/28/17 03/01/17 08:00 16:00 00:00 Intake Total 2687 ml Output Total 1750 ml Balance 937 ml Result Diagram: 02/28/17 0500 02/28/17 0500 Imaging Last Impressions Chest X-Ray 02/27/17 0000 Signed Impressions: Service Date/Time: Monday, February 27, 2017 11:56 - CONCLUSION: Left subclavian central line in good position without pneumothorax. Ananth Ponce Jr., MD Head CT 02/26/17 0000 Signed Impressions: Service Date/Time: Sunday, February 26, 2017 19:47 - CONCLUSION: No evidence of acute infarct, hemorrhage, mass or edema. Ken Sanchez MD Objective Remarks GENERAL: critically ill middle-aged female, Sedated and intubated SKIN: Warm and dry. HEAD: Normocephalic. EYES: No scleral icterus. No injection or drainage. NECK: trachea midline. No JVD CARDIOVASCULAR: tachycardic rate, regular rhythm. RESPIRATORY: equal chest rise. PRVC, 40% fio2. No accessory muscle use. GASTROINTESTINAL: Abdomen soft, non-tender, nondistended. no guarding. MUSCULOSKELETAL: No cyanosis, or edema. NEURO EXAM: GCS: M 5 V T E 3 Mental Status: The patient is sedated and intubated, encephalopathic Cranial Nerves:Pupils are round, reactive to light. Extraocular movements unable to examine RASS -4, does not withdraw to pain. Urinary Catheter: Yes Assessment to: Continue A/P Assessment and Plan Assessment: 36yF with recurrent IVDA, recurrent endocarditis, evidence of meningitis possible bacterial secondary to IVDA, respiratory failure, multi- organ failure. Very critically ill. very poor prognosis given her ongoing drug abuse. will ask palliative to see. appreciate ID and neuro recs. Acute hypoxic and hypercarbic Respiratory failure - no SBT today given persistent encephalopathy - No weaning until neurologically and hemodynamically stable - wean fio2 for spo2 > 90% - hob at 30 degrees, vent bundle, nebs Acute Encephalopathy Acute meningitis, possible bacterial - LP with elevated protein, and low glucose relative to serum glucose. - CT head negative - Neuro checks per unit protocol - f/u MRI History of fungal endocarditis Staph Bacteremia - History of IVDA - Broad-spectrum antibiotic and antiviral and antifungal - Infectious disease consultation - f/u repeat echo Septic Shock - Septic shock - Aggressive IV fluid hydration - Broad-spectrum antibiotic - Levophed when necessary to keep MAP above 65 Acute Kidney Injury -secondary to septic shock - Decrease IVF. Start Bumex 1mg IV daily to keep in even fluid balance. - trend. - pedroza catheter Acute Protein calorie malnutrition- severe - secondary to long-standing IVDA and endocarditis - start TF DVT GI prophylaxis - Teds SCDs - Subcutaneous heparin - Pepcid Critical Care: The total critical care time was 40 minutes. Time to perform other separately billable procedures was not included in the critical care time. Zheng Toth MD Feb 28, 2017 10:19
[2017-02-28 11:36] LABS: HSV 1,PCR Negative (Negative)
[2017-02-28] MEDS: BUMETANIDE INJ 1 MG/4 ML VIAL IV PUSH SCH (12:00)
--- NOTE | 2017-02-28 14:48 | HHI.HCPN ---
Reason for visit a. To assist with evaluation and management of symptoms including: dyspnea. b. To assist medical decision maker(s) with: better understanding of current medical conditions; weighing benefits/burdens of medical treatment options; making medical treatment decisions. . Subjective/Interval History Patient seen and examined in ICU. No family or friends bedside. Discussed with respiratory therapist and nursing staff. Patient remains sedated Diprivan 50 and Fentanyl 25mcg) on mech vent. On Levophed at 7. Slight withdraw noted bilateral LEs. Tmax 100.6. WBC 18.1, hemoglobin 9.9, hematocrit 30.8, platelets 138. Creatinine 1.29. Chest xray subsegmental basilar airspace disease, left greater than right. 02/26/17 blood cultures positive Staphylococcus aureus and enterococcus faecalis all 4 bottles and CSF culture positive rare growth Staphylococcus aureus, further sensitivity to follow. . Family/friend interactions Spoke with mother, Fany and step-father, Karsten via phone. Review of past medical and social history. Lengthy conversation to provide medical update and review of current medical conditions, prognosis and concern patient will not survive this hospitalization. Family was not able to find written advanced directives, therefore health care proxy decision making falls to a parent. Mother and step-father elect NO CODE. They understand poor prognosis. I suspect they will transition to comfort if further setback or no clinical improvement. Family is very appreciative of time spent to provide. . Advance Directives Living Will: Never completed Health Care Surrogate: Never completed Durable Power of [employer]: Never completed Advance Directive Specifics Health Care Surrogate(s): No written advanced directives. Patient a single. Children are juvenile. According to [place] statutes health care proxy decision-making falls to a parent. . Significant change in goals: NO CODE. Goals aggressive short of NO CODE at this time. Will consider transition to comfort if no clinical improvement or further setbacks. . Objective Vital Signs Date Time Temp Pulse Resp B/P (MAP) Pulse Ox O2 Delivery O2 Flow Rate FiO2 02/28/17 11:11 98 35 02/28/17 09:04 99.2 93 23 102/72 (82) 99 02/28/17 08:00 93 02/28/17 08:00 35 02/28/17 07:34 99 35 02/28/17 06:00 96 02/28/17 04:10 100 35 02/28/17 04:00 35 02/28/17 04:00 101 02/28/17 04:00 100.0 101 26 92/66 (75) 99 02/28/17 02:00 101 02/28/17 01:15 102 02/28/17 00:00 40 02/28/17 00:00 99.9 103 25 93/57 (69) 99 02/28/17 00:00 103 02/27/17 23:31 99 40 02/27/17 22:00 105 02/27/17 20:37 99 40 02/27/17 20:00 40 02/27/17 20:00 115 02/27/17 20:00 100.4 115 30 90/60 (70) 99 02/27/17 18:00 115 02/27/17 17:24 115 90/61 02/27/17 16:00 40 02/27/17 16:00 115 02/27/17 16:00 100.6 115 32 100 02/27/17 15:45 100.4 113 30 90/54 (66) 100 02/27/17 15:30 100.4 113 30 97/62 (74) 100 02/27/17 15:15 100.4 113 30 96/61 (73) 100 02/27/17 15:00 100.4 113 31 94/58 (70) 100 02/27/17 14:45 100.2 113 31 97/61 (73) 100 02/27/17 14:30 100.2 113 31 92/60 (71) 100 02/27/17 14:15 100.0 113 28 96/66 (76) 100 Intake & Output 02/28/17 02/28/17 07:00 19:00 Intake Total 3187 ml Output Total 1750 ml Balance 1437 ml Intake IV Total 3187 ml Output Urine Total 850 ml Stool Total 500 ml Gastric Drainage Total 400 ml Physical Exam CONSTITUTIONAL/GENERAL: This is an adequately nourished patient, sedated on mechanical ventilation. TUBES/LINES/DRAINS: ETT, NG, left subclavian central line, PIV right AC, Watson, SCDs. SKIN: No jaundice, rashes, or lesions. Skin temperature appropriate. Not diaphoretic. EYES: Pupils pinpoint, non reactive equal and round. No scleral icterus. No injection or drainage. ENT: Unable to assess hearing. Nose with NG tube right nare. Throat difficult to visualize due to ETT. CARDIOVASCULAR: tachycardic, regular rhythm. RESPIRATORY/CHEST: Symmetric, unlabored respirations on vent. Scattered rhonchi to auscultation. GASTROINTESTINAL: Abdomen soft, moderately distended. Bowel sounds hypoactive. GENITOURINARY: Without palpable bladder distension. Watson catheter in place. MUSCULOSKELETAL: Extremities without clubbing, mild cyanosis of toes, 2+ edema. NEUROLOGICAL: Sedated. Slight withdrawal to painful stimuli bilateral LEs. PSYCHIATRIC: sedated: unable to assess. . Diagnostic Tests Laboratory Laboratory Tests Test 02/26/17 19:30 02/26/17 20:30 02/26/17 21:00 02/26/17 21:23 White Blood Count 18.8 TH/MM3 (4.0-11.0) Red Blood Count 4.13 MIL/MM3 (4.00-5.30) Hemoglobin 9.9 GM/DL (11.6-15.3) Bedside Hemoglobin 10.9 G/DL (12.0-17.0) Hematocrit 31.1 % (35.0-46.0) Bedside Hematocrit 32.0 % (38.0-51.0) Mean Corpuscular Volume 75.4 FL (80.0-100.0) Mean Corpuscular Hemoglobin 24.0 PG (27.0-34.0) Mean Corpuscular Hemoglobin Concent 31.9 % (32.0-36.0) Red Cell Distribution Width 15.5 % (11.6-17.2) Platelet Count 200 TH/MM3 (150-450) Mean Platelet Volume 7.7 FL (7.0-11.0) Neutrophils (%) (Auto) 93.8 % (16.0-70.0) Lymphocytes (%) (Auto) 2.2 % (9.0-44.0) Monocytes (%) (Auto) 3.7 % (0.0-8.0) Eosinophils (%) (Auto) 0.0 % (0.0-4.0) Basophils (%) (Auto) 0.3 % (0.0-2.0) Neutrophils # (Auto) 17.7 TH/MM3 (1.8-7.7) Lymphocytes # (Auto) 0.4 TH/MM3 (1.0-4.8) Monocytes # (Auto) 0.7 TH/MM3 (0-0.9) Eosinophils # (Auto) 0.0 TH/MM3 (0-0.4) Basophils # (Auto) 0.0 TH/MM3 (0-0.2) CBC Comment AUTO DIFF Differential Total Cells Counted 100 Neutrophils % (Manual) 62 % (16-70) Band Neutrophils % 34 % (0-6) Lymphocytes % 2 % (9-44) Monocytes % 2 % (0-8) Neutrophils # (Manual) 18.0 TH/MM3 (1.8-7.7) Differential Comment FINAL DIFF MANUAL Platelet Estimate NORMAL (NORMAL) Platelet Morphology Comment NORMAL (NORMAL) Ovalocytes 2+ (NORMAL) Prothrombin Time 15.4 SEC (9.8-11.6) Prothromb Time International Ratio 1.4 RATIO Activated Partial Thromboplast Time 43.2 SEC (24.3-30.1) Fibrinogen 289 mg/dL (227-377) Bedside Sodium 133 MMOL/L (138-146) Bedside Potassium 3.3 MMOL/L (3.5-4.9) Bedside Chloride 98 MMOL/L (98-109) Bedside Blood Urea Nitrogen 15 MG/DL (8-26) Bedside Creatinine 0.7 MG/DL (0.6-1.0) Bedside Glucose 139 MG/DL (60-95) Total Creatine Kinase 103 U/L (26-192) Troponin I 0.61 NG/ML (0.02-0.05) Human Chorionic Gonadotropin, Quant LESS THAN 1 MIU/ML (0-5) Urine Color YELLOW (YELLW/STRAW) Urine Turbidity HAZY (CLEAR) Urine pH 6.0 (5.0-8.5) Urine Specific [place] 1.027 (1.002-1.035) Urine Protein 300 mg/dL (NEG-TRACE) Urine Glucose (UA) NEG mg/dL (NEG) Urine Ketones NEG mg/dL (NEG) Urine Occult Blood MOD (NEG) Urine Nitrite NEG (NEG) Urine Bilirubin NEG (NEG) Urine Urobilinogen LESS THAN 2.0 MG/DL (LESS Urine Leukocyte Esterase TRACE (NEG) Urine RBC 27 /hpf (0-3) Urine WBC 31 /hpf (0-5) Urine Squamous Epithelial Cells 2 /hpf (0-5) Urine Bacteria OCC /hpf (NONE) Urine Opiates Screen POS (NEG) Urine Barbiturates Screen NEG (NEG) Urine Amphetamines Screen NEG (NEG) Urine Benzodiazepines Screen POS (NEG) Urine Cocaine Screen NEG (NEG) Urine Cannabinoids Screen POS (NEG) Lactic Acid Level 3.3 mmol/L (0.4-2.0) Ammonia 60 MCMOL/L (11-32) Blood Gas Puncture Site RT RADIAL Blood Gas Patient Temperature 98.6 Blood Gas HCO3 17 mmol/L (22-26) Blood Gas Base Excess -7.4 mmol/L (-2-2) Blood Gas Oxygen Saturation 98 % (90-100) Arterial Blood pH 7.36 (7.380-7.420) Arterial Blood Partial Pressure CO2 31 mmHg (38-42) Arterial Blood Partial Pressure O2 206 mmHG (61-120) Arterial Blood Oxygen Content 12.9 Vol % (12.0-20.0) Arterial Blood Carboxyhemoglobin 1.2 % (0-4) Arterial Blood Methemoglobin 0.2 % (0-2) Blood Gas Hemoglobin 9.0 G/DL (12.0-16.0) Oxygen Delivery Device VENTILATOR Blood Gas Ventilator Setting AC/RR14/VT550/[id number] Blood Gas Inspired Oxygen 50 % Test 02/26/17 22:00 02/26/17 23:40 02/27/17 01:40 02/27/17 03:00 CSF Volume (Tube 1) 3.4 ML CSF Supernatant Color (tube 1) CLEAR (CLEAR) CSF Gross Blood (Tube 1) 3+ (0) CSF Volume (Tube 2) 2.9 ML CSF Supernatant Color (tube 2) CLEAR (CLEAR) CSF Gross Blood (Tube 2) 4+ (0) CSF Volume (Tube 3) 3.0 ML CSF Supernatant Color (tube 3) CLEAR (CLEAR) CSF Gross Blood (Tube 3) 3+ (0) CSF Volume (Tube 4) 3.8 ML CSF Supernatant Color (tube 4) CLEAR (CLEAR) CSF Gross Blood (Tube 4) 4+ (0) CSF WBC (Tube 4) 1846 /MM3 (0-10) CSF RBC (Tube 4) 1909 /MM3 (NONE) CSF Neutrophils 97 % CSF Lymphocytes 1 % CSF Monocytes 2 % CSF Glucose 68 MG/DL (40-80) CSF Lactate Dehydrogenase 38 U/L CSF Lactic Acid 4.9 MMOL/L (0.0-3.0) CSF Total Protein 180.9 MG/DL (15.0-45.0) Herpes Simplex Virus I DNA (PCR) Negative (Negative) Herpes Simplex Virus II DNA (PCR) Negative (Negative) Lactic Acid Level 2.8 mmol/L (0.4-2.0) Troponin I 1.91 NG/ML (0.02-0.05) Nasal Screen MRSA (PCR) MRSA NOT DETECTED (NOT Test 02/27/17 04:50 02/27/17 12:05 02/28/17 05:00 02/28/17 09:50 White Blood Count 18.6 TH/MM3 (4.0-11.0) 18.1 TH/MM3 (4.0-11.0) Red Blood Count 4.16 MIL/MM3 (4.00-5.30) 4.13 MIL/MM3 (4.00-5.30) Hemoglobin 10.0 GM/DL (11.6-15.3) 9.9 GM/DL (11.6-15.3) Hematocrit 31.4 % (35.0-46.0) 30.8 % (35.0-46.0) Mean Corpuscular Volume 75.5 FL (80.0-100.0) 74.6 FL (80.0-100.0) Mean Corpuscular Hemoglobin 24.0 PG (27.0-34.0) 24.1 PG (27.0-34.0) Mean Corpuscular Hemoglobin Concent 31.8 % (32.0-36.0) 32.3 % (32.0-36.0) Red Cell Distribution Width 16.0 % (11.6-17.2) 15.8 % (11.6-17.2) Platelet Count 137 TH/MM3 (150-450) 138 TH/MM3 (150-450) Mean Platelet Volume 7.8 FL (7.0-11.0) 8.9 FL (7.0-11.0) Neutrophils (%) (Auto) 93.7 % (16.0-70.0) Lymphocytes (%) (Auto) 3.3 % (9.0-44.0) Monocytes (%) (Auto) 2.4 % (0.0-8.0) Eosinophils (%) (Auto) 0.4 % (0.0-4.0) Basophils (%) (Auto) 0.2 % (0.0-2.0) Neutrophils # (Auto) 17.4 TH/MM3 (1.8-7.7) Lymphocytes # (Auto) 0.6 TH/MM3 (1.0-4.8) Monocytes # (Auto) 0.4 TH/MM3 (0-0.9) Eosinophils # (Auto) 0.1 TH/MM3 (0-0.4) Basophils # (Auto) 0.0 TH/MM3 (0-0.2) CBC Comment DIFF FINAL Differential Comment Prothrombin Time 18.9 SEC (9.8-11.6) Prothromb Time International Ratio 1.7 RATIO Blood Urea Nitrogen 27 MG/DL (7-18) 25 MG/DL (7-18) Creatinine 1.30 MG/DL (0.50-1.00) 1.29 MG/DL (0.50-1.00) Random Glucose 137 MG/DL (74-106) 132 MG/DL (74-106) Total Protein 6.5 GM/DL (6.4-8.2) Albumin 2.8 GM/DL (3.4-5.0) Calcium Level 7.2 MG/DL (8.5-10.1) 7.8 MG/DL (8.5-10.1) Phosphorus Level 3.2 MG/DL (2.5-4.9) 3.0 MG/DL (2.5-4.9) Magnesium Level 1.4 MG/DL (1.5-2.5) Alkaline Phosphatase 93 U/L (45-117) Aspartate Amino Transf (AST/SGOT) 44 U/L (15-37) Alanine Aminotransferase (ALT/SGPT) 16 U/L (10-53) Total Bilirubin 0.7 MG/DL (0.2-1.0) Sodium Level 132 MEQ/L (136-145) 136 MEQ/L (136-145) Potassium Level 2.7 MEQ/L (3.5-5.1) 3.3 MEQ/L (3.5-5.1) Chloride Level 100 MEQ/L (98-107) 105 MEQ/L (98-107) Carbon Dioxide Level 18.8 MEQ/L (21.0-32.0) 19.9 MEQ/L (21.0-32.0) Anion Gap 13 MEQ/L (5-15) 11 MEQ/L (5-15) Estimat Glomerular Filtration Rate 47 ML/MIN (>89) 47 ML/MIN (>89) Lactic Acid Level 2.9 mmol/L (0.4-2.0) Protein Corrected Calcium 7.5 MG/DL (8.5-10.1) Troponin I 2.34 NG/ML (0.02-0.05) Gentamicin Level Trough 1.7 MCG/ML (0.0-2.0) Test 02/28/17 11:50 Gentamicin Level Peak 3.3 MCG/ML (4.0-8.0) Result Diagram: 02/28/17 0500 02/28/17 0500 Microbiology Microbiology Date/Time Source Procedure Growth Status 02/26/17 20:22 Blood Peripheral Aerobic Blood Culture - Preliminary Staphylococcus Aureus Enterococcus Faecalis Resulted 02/26/17 20:22 Anaerobic Blood Culture - Preliminary Staphylococcus Aureus Enterococcus Faecalis Resulted 02/26/17 20:15 Blood Peripheral Aerobic Blood Culture - Preliminary Staphylococcus Aureus Enterococcus Faecalis Resulted 02/26/17 20:15 Anaerobic Blood Culture - Preliminary Staphylococcus Aureus Enterococcus Faecalis Resulted 02/26/17 22:00 Cerebral Spinal Fluid Lumbar Puncture Fungal Smear - Final NO FUNGAL ELEMENTS SEEN. Resulted 02/26/17 22:00 Cerebral Spinal Fluid Lumbar Puncture Fungal Culture Pending Resulted 02/26/17 22:00 Cerebral Spinal Fluid Lumbar Puncture Acid Fast Stain - Final NO ACID FAST BACILLI SEEN Resulted 02/26/17 22:00 Cerebral Spinal Fluid Lumbar Puncture Mycobacterial Culture Pending Resulted 02/26/17 22:00 Cerebral Spinal Fluid Lumbar Puncture Gram Stain - Final Resulted 02/26/17 22:00 CSF Culture - Preliminary Staphylococcus Aureus Resulted Imaging Last Impressions Chest X-Ray 02/27/17 0000 Signed Impressions: Service Date/Time: Monday, February 27, 2017 11:56 - CONCLUSION: Left subclavian central line in good position without pneumothorax. Ananth Ponce Jr., MD Head CT 02/26/17 0000 Signed Impressions: Service Date/Time: Sunday, February 26, 2017 19:47 - CONCLUSION: No evidence of acute infarct, hemorrhage, mass or edema. Ken Sanchez MD . Procedures * 02/26/17 - left subclavian central placement. * 02/26/17 - lumbar puncture * 02/26/17 - Intubated. . Assessment and Plan Disease Oriented Problem List: (1) Protein-calorie malnutrition, severe (2) Elevated troponin (3) Meningitis (4) Encephalopathy (5) Bacterial endocarditis (6) Polysubstance abuse (7) Sepsis (8) Acute kidney injury Symptom Scale: (1) Pain 0-10 Scale: Unable to quantify (2) Dyspnea 0-10 Scale: Unable to quantify (3) Encephalopathy 0-10 Scale: Unable to quantify Pertinent Non-Medical Issues Psychosocial: single. 2 juvenile children. Supported by mother, stepfather and boyfriend. Spiritual: Unknown. Legal: patient is incapacitated. No written advanced directives. Patient a single. Children are juvenile. According to [place] statutes health care proxy decision-making falls to a parent. Ethical issues impacting care: No known concerns at this time. . Important Contacts * Fany Nielsen, mother: [phone] * Karsten Nielsen, stepfather: [phone] . Prognosis Prognosis poor. Code Status: No Code Plan * Decision Maker: patient is incapacitated. No written advanced directives. Patient a single. Children are juvenile. According to [place] statutes health care proxy decision-making falls to a parent. * NO CODE * Spoke with mother, Fany and step-fatherKarsten via phone. Review of past medical and social history. Lengthy conversation to provide medical update and review of current medical conditions, prognosis and concern patient will not survive this hospitalization. Family was not able to find written advanced directives, therefore health care proxy decision making falls to a parent. Mother and step-father elect NO CODE. They understand poor prognosis. I suspect they will transition to comfort if further setback or no clinical improvement. Family is very appreciative of time spent to provide. * SYMPTOMS: Pain: No obvious signs of pain. Potential sources include endocarditis, bedbound status, tubes etc. Currently on fentanyl and propofol. Patient with likely high tolerance given history of IV drug use, will monitor effective medications. Dyspnea: remains sedated on mechanical ventilation. No new medication recommendations at this time. * Palliative care will continue to follow throughout hospital course to assist with symptom management and clarification of goals as needed. . Attestation To help prompt me to consider important information that might be impacting today's encounter and assessment, information from prior notes written by myself or my colleagues may have been "brought forward" into today's note. My signature on this note, however, is an attestation that I personally performed the exam, history, and/or decision-making noted today, and, unless otherwise indicated, the interactions with patient, family, and staff as well as the review of records all occurred today. I also attest that the listed assessment and stated plan reflect my best clinical judgment today based on the combination of historical information, prior notes, and today's exam/ interactions. When time spent is documented, it refers only to time spent today by the signer, or if indicated, combined time spent today by collaborating physician/nurse practitioner. Shanice García Feb 28, 2017 14:48
--- NOTE | 2017-02-28 19:48 | HHI.IDPN ---
Subjective Subjective Remarks Doing poorly remains on vent Unresponsive MSSA in CSF MSSA and enterocci in blood clx 2D echo with TV vegertationand severely reduced EF Antibiotics oxacillin gent rifampin AMB fluconazole CFTX Allergies: Coded Allergies: No Known Allergies (Verified , 09/01/15) Objective . Vital Signs Date Time Temp Pulse Resp B/P (MAP) Pulse Ox O2 Delivery O2 Flow Rate FiO2 02/28/17 16:31 98 35 02/28/17 11:11 98 35 02/28/17 09:04 99.2 93 23 102/72 (82) 99 02/28/17 08:00 93 02/28/17 08:00 35 02/28/17 07:34 99 35 02/28/17 06:00 96 02/28/17 04:10 100 35 02/28/17 04:00 35 02/28/17 04:00 101 02/28/17 04:00 100.0 101 26 92/66 (75) 99 02/28/17 02:00 101 02/28/17 01:15 102 02/28/17 00:00 40 02/28/17 00:00 99.9 103 25 93/57 (69) 99 02/28/17 00:00 103 02/27/17 23:31 99 40 02/27/17 22:00 105 02/27/17 20:37 99 40 02/27/17 20:00 40 02/27/17 20:00 115 02/27/17 20:00 100.4 115 30 90/60 (70) 99 . Laboratory Tests Test 02/27/17 04:50 02/28/17 05:00 White Blood Count 18.6 TH/MM3 18.1 TH/MM3 Red Blood Count 4.16 MIL/MM3 4.13 MIL/MM3 Hemoglobin 10.0 GM/DL 9.9 GM/DL Hematocrit 31.4 % 30.8 % Mean Corpuscular Volume 75.5 FL 74.6 FL Mean Corpuscular Hemoglobin 24.0 PG 24.1 PG Mean Corpuscular Hemoglobin Concent 31.8 % 32.3 % Red Cell Distribution Width 16.0 % 15.8 % Platelet Count 137 TH/MM3 138 TH/MM3 Mean Platelet Volume 7.8 FL 8.9 FL Neutrophils (%) (Auto) 93.7 % Lymphocytes (%) (Auto) 3.3 % Monocytes (%) (Auto) 2.4 % Eosinophils (%) (Auto) 0.4 % Basophils (%) (Auto) 0.2 % Neutrophils # (Auto) 17.4 TH/MM3 Lymphocytes # (Auto) 0.6 TH/MM3 Monocytes # (Auto) 0.4 TH/MM3 Eosinophils # (Auto) 0.1 TH/MM3 Basophils # (Auto) 0.0 TH/MM3 CBC Comment DIFF FINAL Differential Comment Laboratory Tests Test 02/26/17 21:00 02/26/17 23:40 02/27/17 01:40 02/27/17 04:50 Lactic Acid Level 3.3 mmol/L 2.8 mmol/L 2.9 mmol/L Ammonia 60 MCMOL/L Troponin I 1.91 NG/ML Blood Urea Nitrogen 27 MG/DL Creatinine 1.30 MG/DL Random Glucose 137 MG/DL Total Protein 6.5 GM/DL Albumin 2.8 GM/DL Calcium Level 7.2 MG/DL Phosphorus Level 3.2 MG/DL Magnesium Level 1.4 MG/DL Alkaline Phosphatase 93 U/L Aspartate Amino Transf (AST/SGOT) 44 U/L Alanine Aminotransferase (ALT/SGPT) 16 U/L Total Bilirubin 0.7 MG/DL Sodium Level 132 MEQ/L Potassium Level 2.7 MEQ/L Chloride Level 100 MEQ/L Carbon Dioxide Level 18.8 MEQ/L Anion Gap 13 MEQ/L Estimat Glomerular Filtration Rate 47 ML/MIN Protein Corrected Calcium 7.5 MG/DL Test 02/27/17 12:05 02/28/17 05:00 Phosphorus Level 3.0 MG/DL Troponin I 2.34 NG/ML Blood Urea Nitrogen 25 MG/DL Creatinine 1.29 MG/DL Random Glucose 132 MG/DL Calcium Level 7.8 MG/DL Sodium Level 136 MEQ/L Potassium Level 3.3 MEQ/L Chloride Level 105 MEQ/L Carbon Dioxide Level 19.9 MEQ/L Anion Gap 11 MEQ/L Estimat Glomerular Filtration Rate 47 ML/MIN Microbiology Date/Time Source Procedure Growth Status 02/26/17 20:22 Blood Peripheral Aerobic Blood Culture - Preliminary Staphylococcus Aureus Enterococcus Faecalis Resulted 02/26/17 20:22 Anaerobic Blood Culture - Preliminary Staphylococcus Aureus Enterococcus Faecalis Resulted 02/26/17 20:15 Blood Peripheral Aerobic Blood Culture - Preliminary Staphylococcus Aureus Enterococcus Faecalis Resulted 02/26/17 20:15 Anaerobic Blood Culture - Preliminary Staphylococcus Aureus Enterococcus Faecalis Resulted 02/26/17 22:00 Cerebral Spinal Fluid Lumbar Puncture Fungal Smear - Final NO FUNGAL ELEMENTS SEEN. Resulted 02/26/17 22:00 Cerebral Spinal Fluid Lumbar Puncture Fungal Culture Pending Resulted 02/26/17 22:00 Cerebral Spinal Fluid Lumbar Puncture Acid Fast Stain - Final NO ACID FAST BACILLI SEEN Resulted 02/26/17 22:00 Cerebral Spinal Fluid Lumbar Puncture Mycobacterial Culture Pending Resulted 02/26/17 22:00 Cerebral Spinal Fluid Lumbar Puncture Gram Stain - Final Resulted 02/26/17 22:00 CSF Culture - Preliminary Staphylococcus Aureus Resulted Imaging Last Impressions Chest X-Ray 02/27/17 0000 Signed Impressions: Service Date/Time: Monday, February 27, 2017 11:56 - CONCLUSION: Left subclavian central line in good position without pneumothorax. Ananth Ponce Jr., MD Head CT 02/26/17 0000 Signed Impressions: Service Date/Time: Sunday, February 26, 2017 19:47 - CONCLUSION: No evidence of acute infarct, hemorrhage, mass or edema. Ken Sanchez MD Physical Exam CONSTITUTIONAL/GENERAL: This is an adequately nourished patient, in no apparent distress. Sedated, int'd on [facility] vent TUBES/LINES/DRAINS: SKIN: No jaundice, rashes, or lesions. Skin temperature appropriate. Not diaphoretic. No [place] lesions purple lesion on 2 nd L toe liekly septic embolization HEAD: Atraumatic. Normocephalic. EYES: Pupils small non reactive equal and round . No scleral icterus. No injection or drainage. Fundi not examined. CARDIOVASCULAR: Regular rate and rhythm without murmurs, gallops, or rubs. Mechanical heart sounds No JVD. Peripheral pulses symmetric. RESPIRATORY/CHEST: Symmetric, unlabored respirations. Scattered rhonchi to auscultation. Breath sounds equal bilaterally. GASTROINTESTINAL: Abdomen soft, non-tender, moderately distended. No hepato- splenomegaly, or palpable masses. No guarding. Bowel sounds present, hypoactive GENITOURINARY: Without palpable bladder distension. Watson catheter in place with clear yellow urine MUSCULOSKELETAL: Extremities without clubbing, + mild cyanosis of toes 2+ edema. No joint tenderness or effusion noted. No calf tenderness. LYMPHATICS: No palpable cervical or supraclavicular adenopathy. NEUROLOGICAL Unresponsive. 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 cardiac injury from infx Critically ill , unstable Poor prognosis Not a surgical candidate dc AMB cont fluconazole cont oxacillin + gentamin +RIfampin Dc CFTX Swati Spaulding MD Feb 28, 2017 19:48
[2017-02-28] MEDS: FLUCONAZOLE/NACL 400 MG/200 ML IV SCH ×2 (20:04→22:25)
[2017-03-01] VITALS (43 sets, daily range): BP systolic 90–114; BP diastolic 61–86; PULSE 100–114; RESP 21–31; TEMP 101.1; O2SAT 97–100
[2017-03-01] MEDS: GENTAMICIN INJ 100 MG in SODIUM CHLORIDE 0.9% INJ 100 ML IV SCH ×2 (00:23→11:36)
[2017-03-01] MEDS: PROPOFOL 1000 MG/100 ML INJ 100 ML IV PRN ×8 (02:27→23:21)
[2017-03-01] MEDS: OXACILLIN INJ 2 GM in SODIUM CHLORIDE 0.9% INJ 100 ML IV SCH ×6 (02:27→21:01)
[2017-03-01] MEDS: CHLORHEXIDINE GLUCONATE 2 % 1 PACK (2 CLOTHS) TOP SCH (04:00)
[2017-03-01 05:24] LABS: HEMATOCRIT 27.2 % (35.0-46.0); MEAN CELL VOLUME 74.3 FL (80.0-100.0); MEAN CORPUSCULAR HGB CONC 33.7 % (32.0-36.0); PLATELET COUNT 138 TH/MM3 (150-450); RED BLOOD COUNT 3.67 MIL/MM3 (4.00-5.30); REVIEW FLAG FINAL; WHITE BLOOD COUNT 10.8 TH/MM3 (4.0-11.0)
[2017-03-01 05:43] LABS: BICARBONATE 22.9 MEQ/L (21.0-32.0); POTASSIUM 3.2 MEQ/L (3.5-5.1)
[2017-03-01] MEDS: INSULIN NovoLIN REGULAR SUPPLEMENTAL SCALE SQ SCH ×4 (06:00→17:13)
[2017-03-01] MEDS: POTASSIUM CHLOR 40 MEQ PREMIX 100 ML IV PRN ×2 (06:07→08:34)
--- NOTE | 2017-03-01 07:46 | PD.PROCEDR ---
Procedure Note Procedure Procedure: Arterial Line Placement Left radial arterial line Diagnosis: Infective endocarditis Indications: Septic shock requiring vasopressors, need for beat to beat hemodynamic monitoring Consent: Emergent Description of the Procedure: The left wrist was prepped and draped sterilely. 1% lidocaine was used for local anesthesia. The pulse was located and a needle was advanced into the artery. A 20 gauge, 12 cm catheter was advanced into the artery using a modified Seldinger technique. The catheter was sutured to the skin and a sterile dressing was applied. The catheter was connected to a pressure transducer and an arterial waveform was noted. There were no immediate complications noted. There was minimal EBL. I personally performed the procedure. Luke Hernandes MD Mar 01, 2017 07:46
--- NOTE | 2017-03-01 08:13 | HHI.CCPN ---
Subjective Remarks/Hospital Course Hospital Course: 36-year-old female who presents initially as a stroke alert. According to EMS report the patient has a history of fungal endocarditis with previous IVDA. EMS states that the patient is currently on hospice, however, they are unsure if the patient is a DNR. EMS states the patient apparently complained of a headache earlier today, was found lying on the floor and incontinent of stool at approximate, last seen normal at 6:45 PM. Therefore, EMS called a stroke alert in the field as the patient was aphasic and confused. Upon arrival the patient groans, moves all 4 extremities and withdraws all 4 extremities, but is unable to provide any information. She was intubated in the emergency department by ER attending for airway protection. subjective: 02/27: remains encephalopathic. Blood cultures growing Staph in 4/ bottles. 02/28: Remains sedated/ encephalopathic, orally intubated on mechanical ventilation. 03/01: still in shock on vasopressors. grossly volume overloaded and intravascularly volume overloaded based on echo and clinically. needs aggressive diuresis, but still in shock. family made patient DNR last night, but want to continue aggressive therapies. still encephalopathic. no significant improvements. Objective Vital Signs Date Time Temp Pulse Resp B/P (MAP) Pulse Ox O2 Delivery O2 Flow Rate FiO2 03/01/17 06:00 104 03/01/17 04:04 98 35 03/01/17 04:00 101.1 25 97/67 (77) 02/26/17 19:30 4.00 02/26/17 19:30 Nasal Cannula Intake and Output 03/01/17 03/01/17 03/02/17 08:00 16:00 00:00 Intake Total 2110 ml Output Total 1350 ml Balance 760 ml Result Diagram: 03/01/17 0505 03/01/17 0505 Imaging Last Impressions Chest X-Ray 02/27/17 0000 Signed Impressions: Service Date/Time: Monday, February 27, 2017 11:56 - CONCLUSION: Left subclavian central line in good position without pneumothorax. Ananth Ponce Jr., MD Head CT 02/26/17 0000 Signed Impressions: Service Date/Time: Sunday, February 26, 2017 19:47 - CONCLUSION: No evidence of acute infarct, hemorrhage, mass or edema. Ken Sanchez MD Objective Remarks GENERAL: critically ill middle-aged female, Sedated and intubated SKIN: Warm and dry. HEAD: Normocephalic. EYES: No scleral icterus. No injection or drainage. NECK: trachea midline. +JVD CARDIOVASCULAR: tachycardic rate, regular rhythm. RESPIRATORY: equal chest rise. PRVC, 40% fio2. No accessory muscle use. GASTROINTESTINAL: Abdomen soft, non-tender, nondistended. no guarding. MUSCULOSKELETAL: No cyanosis. 3+ edema above thighs. gross anasarca. NEURO EXAM: purposeful. moves all extremities spontaneously. w/d to pain. grimaces to pain. does not open eyes to stimulation. does not follow commands. RASS -3. 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 Very critically ill. very poor prognosis given her ongoing drug abuse. palliative following. still aggressive care for now, though DNR. off pathway; if we withdraw support she would . continues to be critically ill at this time. Acute hypoxic and hypercarbic Respiratory failure - no SBT today given persistent encephalopathy - No weaning until neurologically and hemodynamically stable - wean fio2 for spo2 > 90% - hob at 30 degrees, vent bundle, nebs Acute Encephalopathy Acute meningitis, possible bacterial - LP with elevated protein, and low glucose relative to serum glucose. - CT head negative - Neuro checks per unit protocol History of fungal endocarditis Staph Bacteremia Tricuspid valve infective endocarditis - History of IVDA - Broad-spectrum antibiotic and antifungal - Infectious disease consultation Mixed Septic/cardiogenic Shock Acute congestive heart failure secondary to valvulopathy Tricuspid Regurgitation - start Bumex drip - will need to continue vasopressors while we force diuresis to optimize cardiac function despite ongoing mixed shock. Acute Kidney Injury -secondary to shock - will need to pursue forced diuresis to optimize cardiac output despite DUONG. - pedroza catheter Acute Protein calorie malnutrition- severe - secondary to long-standing IVDA and endocarditis - continue TF DVT GI prophylaxis - Teds SCDs - Subcutaneous heparin - Pepcid Critical Care: The total critical care time was 40 minutes. Time to perform other separately billable procedures was not included in the critical care time. Luke Hernandes MD Mar 01, 2017 08:13
[2017-03-01] MEDS: DOCUSATE SODIUM 50 MG/SENNA 8.6 MG TAB PO SCH ×2 (08:33→21:00)
[2017-03-01] MEDS: ARTIFICIAL TEARS OPTH SOLN 15 ML BTL EACH EYE SCH ×3 (08:33→16:03)
[2017-03-01] MEDS: FAMOTIDINE 20 MG/2 ML VIAL IV PUSH SCH ×2 (08:36→21:00)
[2017-03-01] MEDS: SODIUM CHLORIDE 0.9% FLUSH 10 ML FLUSH IV FLUSH SCH ×2 (08:37→21:00)
[2017-03-01] MEDS: BUMETANIDE INJ 1 MG/4 ML VIAL IV PUSH SCH (08:37)
[2017-03-01] MEDS: HEPARIN SODIUM - SQ 10,000 UNITS/ML VIAL SQ SCH ×2 (08:37→21:01)
[2017-03-01] MEDS ORDERED: PHARMACY ORDERED LAB ONE (08:45)
[2017-03-01] MEDS: RIFAMPIN INJ 300 MG in SODIUM CHLORIDE 0.9% INJ 100 ML IV SCH ×2 (09:02→21:00)
--- NOTE | 2017-03-01 09:18 | HHI.PR ---
Review/Management Diagnosis/Plan: (1) Meningitis ICD Codes: G03.9 - Meningitis, unspecified Status: Acute Plan: Staph meningitis +neutrophilic pleocytosis on CSF glucose nml, elevated protein. echo TV vegetation. depressed EF recs mri brain-pending prognosis very guarded appreciate palliative care assistance Subjective Subjective Comments No acute events reported Active Medications Current Medications Medications (Trade) Dose Ordered Sig/Jessica Route Start Time Stop Time Status Last Admin Propofol 100 ml @ 0 mls/hr TITRATE PRN IV 02/26/17 20:15 03/01/17 08:35 Norepinephrine Bitartrate 250 ml @ 7.5 mls/hr TITRATE PRN IV 02/26/17 21:30 02/28/17 01:15 (Brethine Inj) 1 mg UNSCH PRN SQ 02/26/17 21:30 (Tylenol) 650 mg Q6H PRN PO 02/26/17 21:30 (Morphine Inj) 2 mg Q2H PRN IV 02/26/17 21:30 (Pepcid Inj) 20 mg Q12HR IV PUSH 02/27/17 09:00 03/01/17 08:36 (Tears Naturale Opth Soln) 1 drop TID EACH EYE 02/27/17 09:00 03/01/17 08:33 (Zofran Inj) 4 mg Q6H PRN IV 02/26/17 21:30 (Duoneb Neb) 1 ampule Q2HR NEB PRN INH 02/26/17 21:30 (Heparin Inj) 5,000 units Q12H SQ 02/26/17 22:00 03/01/17 08:37 Miscellaneous Information 1 Q361D XX 02/26/17 21:30 02/26/17 21:30 (Chlorhexidine 2% Cloth) 3 pack Taper DAILY@04 TOP 02/27/17 04:00 02/23/18 03:59 03/01/17 04:00 (Chlorhexidine 2% Cloth) 3 pack UNSCH PRN TOP 02/26/17 21:30 (Armida-Colace) 1 tab BID PO 02/27/17 09:00 03/01/17 08:33 (Milk Of Magnesia Liq) 30 ml Q12H PRN PO 02/26/17 21:30 (Senokot) 17.2 mg Q12H PRN PO 02/26/17 21:30 (Dulcolax Supp) 10 mg DAILY PRN RECTAL 02/26/17 21:30 (Lactulose Liq) 30 ml DAILY PRN PO 02/26/17 21:30 (NS Flush) 2 ml UNSCH PRN IV FLUSH 02/26/17 22:45 (NS Flush) 2 ml BID IV FLUSH 02/27/17 09:00 03/01/17 08:37 Potassium Chloride 100 ml @ 50 mls/hr Q2H PRN IV 02/27/17 06:00 03/01/17 08:34 Potassium Chloride 100 ml @ 50 mls/hr Q2H PRN IV 02/27/17 06:00 (K-Lyte Cl Eff) 50 meq UNSCH PRN PO 02/27/17 06:00 Potassium Chloride 100 ml @ 25 mls/hr UNSCH PRN IV 02/27/17 06:00 Potassium Chloride 100 ml @ 50 mls/hr Q2H PRN IV 02/27/17 06:00 Magnesium Sulfate 4 gm/Sodium Chloride 100 ml @ 50 mls/hr UNSCH PRN IV 02/27/17 06:00 (Mag-Ox) 800 mg UNSCH PRN PO 02/27/17 06:00 Magnesium Sulfate 2 gm/Sodium Chloride 100 ml @ 50 mls/hr UNSCH PRN IV 02/27/17 06:00 (K-Phos) 2,000 mg Q4H PRN PO 02/27/17 06:00 Sodium Phosphate 30 mmol/Sodium Chloride 250 ml @ 42 mls/hr UNSCH PRN IV 02/27/17 06:00 (K-Phos) 2,000 mg UNSCH PRN PO/TUBE 02/27/17 06:00 Potassium Phosphate 30 mmol/ Sodium Chloride 260 ml @ 42 mls/hr UNSCH PRN IV 02/27/17 06:00 Fentanyl Citrate 250 ml @ 0 mls/hr TITRATE IV 02/27/17 13:00 02/27/17 14:38 (D50w (Vial) Inj) 25 ml UNSCH PRN IV PUSH 02/27/17 13:00 (NovoLIN R SUPPLEMENTAL SCALE) 1 Q6HR SQ 02/27/17 18:00 Oxacillin Sodium 2 gm/Sodium Chloride 100 ml @ 200 mls/hr Q4H IV 02/27/17 18:00 03/01/17 04:56 Pharmacy Profile Note 0 ml @ 0 mls/hr UNSCH OTHER 02/27/17 15:30 Rifampin 300 mg/ Sodium Chloride 100 ml @ 100 mls/hr Q12H IV 02/27/17 21:00 03/01/17 09:02 Fluconazole/ Sodium Chloride 200 ml @ 100 mls/hr Q24H IV 02/27/17 20:00 02/28/17 20:04 Fluconazole/ Sodium Chloride 200 ml @ 100 mls/hr Q24H IV 02/27/17 22:00 02/28/17 22:25 (Bumex Inj) 1 mg DAILY IV PUSH 02/28/17 10:30 03/01/17 08:37 Gentamicin Sulfate 100 mg/ Sodium Chloride 102.5 ml @ 200 mls/hr Q12H IV 03/01/17 00:00 03/01/17 00:23 Miscellaneous Information SPECIFIC LAB TO BE DRAWN:GENTAMICIN TROUGH DATE TO... ONCE ONCE .XX 03/02/17 11:45 03/02/17 11:46 Allergies Allergies Coded Allergies No Known Allergies (Verified09/01/15) Review of Systems All other ROS: Unable to obtain Exam I&O / VS Vital Signs Date Time Temp Pulse Resp B/P (MAP) Pulse Ox O2 Delivery O2 Flow Rate FiO2 03/01/17 08:13 99 35 03/01/17 06:00 104 03/01/17 04:04 98 35 03/01/17 04:00 35 03/01/17 04:00 104 03/01/17 04:00 101.1 104 25 97/67 (77) 98 03/01/17 02:00 103 03/01/17 00:00 109 03/01/17 00:00 35 03/01/17 00:00 101.3 109 25 95/68 (77) 97 02/28/17 23:28 97 35 02/28/17 22:00 106 02/28/17 20:14 98 35 02/28/17 20:00 108 02/28/17 20:00 100.9 108 25 100/68 (79) 98 02/28/17 20:00 35 02/28/17 19:40 100.9 109 23 97/65 (76) 98 02/28/17 19:20 100.9 108 24 94/67 (76) 97 817 19:00 100.8 108 24 95/68 (77) 98 8//17 18:40 100.8 108 25 98/67 (77) 98 8/17 18:20 100.8 109 24 99/63 (75) 98 8/17 18:00 109 817 18:00 100.6 109 24 99/67 (78) 98 817 17:40 100.6 109 23 92/67 (75) 97 8/17 17:20 100.4 108 24 95/65 (75) 98 8/17 17:00 100.4 108 24 97/67 (77) 98 817 16:40 100.4 107 24 94/67 (76) 98 817 16:31 98 35 817 16:20 100.4 106 24 95/64 (74) 98 17 16:00 35 17 16:00 105 817 16:00 100.4 105 24 88/66 (73) 98 817 15:40 100.2 104 23 92/63 (73) 98 817 15:20 100.2 104 23 92/62 (72) 98 8 15:00 100.0 104 24 90/64 (73) 98 817 15:00 100.0 104 24 90/64 (73) 98 02/28/17 14:40 100.0 104 24 94/60 (71) 98 817 14:20 99.9 103 24 89/65 (73) 98 817 14:00 103 8 14:00 99.7 103 23 89/66 (74) 98 817 13:40 99.7 101 22 91/68 (76) 98 8/17 13:20 99.5 100 23 90/63 (72) 98 817 13:00 99.5 100 22 90/63 (72) 98 02/28/17 12:40 99.3 97 22 94/63 (73) 98 8 12:20 99.3 97 22 87/65 (72) 98 8 12:00 99.5 98 24 92/70 (77) 98 02/28/17 12:00 98 02/28/17 11:40 99.5 97 22 88/60 (69) 98 02/28/17 11:20 99.5 96 22 94/68 (77) 98 02/28/17 11:11 98 35 02/28/17 11:00 99.5 93 22 96/71 (79) 98 02/28/17 10:40 99.5 92 23 98/71 (80) 98 02/28/17 10:20 99.5 93 23 96/71 (79) 98 02/28/17 10:00 99.5 92 23 90/66 (74) 98 02/28/17 10:00 92 02/28/17 09:40 99.5 94 20 94/64 (74) 98 02/28/17 09:20 99.3 92 23 101/69 (80) 99 Exam Comments intubated, on propofol gtt's, deep stupor state, not following, not verbal, eyes looking down, mild grimace, ou 3mm sluggish, diminished corneals and dolls , mild foot withdrawal, no clonus, planterflexor Objective Micro and Labs Laboratory Tests Test 02/28/17 09:50 02/28/17 11:50 03/01/17 05:05 Gentamicin Level Trough 1.7 Gentamicin Level Peak 3.3 White Blood Count 10.8 Red Blood Count 3.67 Hemoglobin 9.2 Hematocrit 27.2 Mean Corpuscular Volume 74.3 Mean Corpuscular Hemoglobin 25.0 Mean Corpuscular Hemoglobin Concent 33.7 Red Cell Distribution Width 16.0 Platelet Count 138 Mean Platelet Volume 8.9 Blood Urea Nitrogen 20 Creatinine 1.28 Random Glucose 104 Calcium Level 8.0 Sodium Level 143 Potassium Level 3.2 Chloride Level 112 Carbon Dioxide Level 22.9 Anion Gap 8 Estimat Glomerular Filtration Rate 47 Date/Time Source Procedure Growth Status 02/26/17 20:22 Blood Peripheral Aerobic Blood Culture - Preliminary Staphylococcus Aureus Enterococcus Faecalis Resulted 02/26/17 20:22 Anaerobic Blood Culture - Preliminary Staphylococcus Aureus Enterococcus Faecalis Resulted 02/26/17 22:00 Cerebral Spinal Fluid Lumbar Puncture Fungal Smear - Final NO FUNGAL ELEMENTS SEEN. Resulted 02/26/17 22:00 Cerebral Spinal Fluid Lumbar Puncture Fungal Culture Pending Resulted Earl Whipple MD Mar 01, 2017 09:18
[2017-03-01] MEDS ORDERED: BUMETANIDE INJ 1 MG/4 ML VIAL IV PUSH ONE (09:45)
[2017-03-01 09:52] LABS: HAEMOPHILUS FLU AG TYPE B Not Detected (Not Detected); N MENINGITIDIS GRP B/ECOLI K1 Not Detected (Not Detected); N MENINGITIDIS GRP C/W135 Not Detected (Not Detected); N.MENINGITIDIS GRP A/Y Not Detected (Not Detected); STREPTOCOCCUS PNEUMONIAE Not Detected (Not Detected)
[2017-03-01 10:20] LABS: LYME IGG IMMUNOBLOT CSF None Detected bands (None Detected); LYME IGM IMMUNOBLOT CSF None Detected bands (None Detected)
[2017-03-01] MEDS: BUMETANIDE INJ 100 ML IV SCH (10:59)
--- NOTE | 2017-03-01 11:29 | HHI.HCPN ---
Attempted to contact mom, Fany, to provide additional ongoing support. No answer, left VM offered contact for call back if desired. No family at bedside. MRI pending. Spoke with RN Munira. Palliative care will continue to follow throughout hospitalization and further address goals of care as needed. Tamara Ponce MSW, [employer] Mar 01, 2017 11:29
[2017-03-01 12:33] LABS: BICARBONATE 21.2 MEQ/L (21.0-32.0); MAGNESIUM 2.1 MG/DL (1.5-2.5); POTASSIUM 3.8 MEQ/L (3.5-5.1)
[2017-03-01] MEDS: AMPICILLIN INJ 2,000 MG in SODIUM CHLORIDE 0.9% INJ 100 ML IV SCH ×3 (13:12→20:59)
[2017-03-01] MEDS ORDERED: fentaNYL DRIP 250 ML IV SCH (14:45)
--- NOTE | 2017-03-01 15:19 | HHI.IDPN ---
Subjective Subjective Remarks Doing poorly remains on vent Unresponsive MSSA in CSF MSSA and enterocci in blood clx 2D echo with TV vegertationand severely reduced EF off pressors good UOP Fever up to 101.7 heavy secretions Antibiotics oxacillin gent rifampin fluconazole Allergies: Coded Allergies: No Known Allergies (Verified , 09/01/15) Objective . Vital Signs Date Time Temp Pulse Resp B/P (MAP) Pulse Ox O2 Delivery O2 Flow Rate FiO2 03/01/17 13:18 97 35 03/01/17 10:16 98 35 03/01/17 08:13 99 35 03/01/17 08:00 35 03/01/17 06:00 104 03/01/17 04:04 98 35 03/01/17 04:00 35 03/01/17 04:00 104 03/01/17 04:00 101.1 104 25 97/67 (77) 98 03/01/17 02:00 103 03/01/17 00:00 109 03/01/17 00:00 35 03/01/17 00:00 101.3 109 25 95/68 (77) 97 02/28/17 23:28 97 35 02/28/17 22:00 106 02/28/17 20:14 98 35 02/28/17 20:00 108 02/28/17 20:00 100.9 108 25 100/68 (79) 98 02/28/17 20:00 35 02/28/17 19:40 100.9 109 23 97/65 (76) 98 02/28/17 19:20 100.9 108 24 94/67 (76) 97 02/28/17 19:00 100.8 108 24 95/68 (77) 98 02/28/17 18:40 100.8 108 25 98/67 (77) 98 02/28/17 18:20 100.8 109 24 99/63 (75) 98 02/28/17 18:00 109 02/28/17 18:00 100.6 109 24 99/67 (78) 98 02/28/17 17:40 100.6 109 23 92/67 (75) 97 02/28/17 17:20 100.4 108 24 95/65 (75) 98 02/28/17 17:00 100.4 108 24 97/67 (77) 98 02/28/17 16:40 100.4 107 24 94/67 (76) 98 02/28/17 16:31 98 35 02/28/17 16:20 100.4 106 24 95/64 (74) 98 02/28/17 16:00 35 02/28/17 16:00 105 02/28/17 16:00 100.4 105 24 88/66 (73) 98 02/28/17 15:40 100.2 104 23 92/63 (73) 98 02/28/17 15:20 100.2 104 23 92/62 (72) 98 03/01/17 03/01/17 03/02/17 15:00 23:00 07:00 Intake Total 500 ml Balance 500 ml Intake IV Total 500 ml . Laboratory Tests Test 02/28/17 05:00 03/01/17 05:05 White Blood Count 18.1 TH/MM3 10.8 TH/MM3 Red Blood Count 4.13 MIL/MM3 3.67 MIL/MM3 Hemoglobin 9.9 GM/DL 9.2 GM/DL Hematocrit 30.8 % 27.2 % Mean Corpuscular Volume 74.6 FL 74.3 FL Mean Corpuscular Hemoglobin 24.1 PG 25.0 PG Mean Corpuscular Hemoglobin Concent 32.3 % 33.7 % Red Cell Distribution Width 15.8 % 16.0 % Platelet Count 138 TH/MM3 138 TH/MM3 Mean Platelet Volume 8.9 FL 8.9 FL Laboratory Tests Test 02/28/17 05:00 03/01/17 05:05 03/01/17 11:42 Blood Urea Nitrogen 25 MG/DL 20 MG/DL 19 MG/DL Creatinine 1.29 MG/DL 1.28 MG/DL 1.29 MG/DL Random Glucose 132 MG/DL 104 MG/DL 105 MG/DL Calcium Level 7.8 MG/DL 8.0 MG/DL 8.0 MG/DL Sodium Level 136 MEQ/L 143 MEQ/L 144 MEQ/L Potassium Level 3.3 MEQ/L 3.2 MEQ/L 3.8 MEQ/L Chloride Level 105 MEQ/L 112 MEQ/L 114 MEQ/L Carbon Dioxide Level 19.9 MEQ/L 22.9 MEQ/L 21.2 MEQ/L Anion Gap 11 MEQ/L 8 MEQ/L 9 MEQ/L Estimat Glomerular Filtration Rate 47 ML/MIN 47 ML/MIN 47 ML/MIN Magnesium Level 2.1 MG/DL Microbiology Date/Time Source Procedure Growth Status 03/01/17 09:38 Blood Peripheral Aerobic Blood Culture Pending Received 03/01/17 09:38 Blood Peripheral Anaerobic Blood Culture Pending Received 03/01/17 09:33 Blood Peripheral Aerobic Blood Culture Pending Received 03/01/17 09:33 Blood Peripheral Anaerobic Blood Culture Pending Received 02/26/17 20:22 Blood Peripheral Aerobic Blood Culture - Final Staphylococcus Aureus Enterococcus Faecalis Complete 02/26/17 20:22 Anaerobic Blood Culture - Final Staphylococcus Aureus Enterococcus Faecalis Complete 02/26/17 20:15 Blood Peripheral Aerobic Blood Culture - Final Staphylococcus Aureus Enterococcus Faecalis Complete 02/26/17 20:15 Anaerobic Blood Culture - Final Staphylococcus Aureus Enterococcus Faecalis Complete 02/26/17 22:00 Cerebral Spinal Fluid Lumbar Puncture Fungal Smear - Final NO FUNGAL ELEMENTS SEEN. Resulted 02/26/17 22:00 Cerebral Spinal Fluid Lumbar Puncture Fungal Culture Pending Resulted 02/26/17 22:00 Cerebral Spinal Fluid Lumbar Puncture Acid Fast Stain - Final NO ACID FAST BACILLI SEEN Resulted 02/26/17 22:00 Cerebral Spinal Fluid Lumbar Puncture Mycobacterial Culture Pending Resulted 02/26/17 22:00 Cerebral Spinal Fluid Lumbar Puncture Gram Stain - Final Complete 02/26/17 22:00 CSF Culture - Final Staphylococcus Aureus Complete Imaging Last Impressions Chest X-Ray 02/27/17 0000 Signed Impressions: Service Date/Time: Monday, February 27, 2017 11:56 - CONCLUSION: Left subclavian central line in good position without pneumothorax. Ananth Ponce Jr., MD Head CT 02/26/17 0000 Signed Impressions: Service Date/Time: Sunday, February 26, 2017 19:47 - CONCLUSION: No evidence of acute infarct, hemorrhage, mass or edema. Ken Sanchez MD Physical Exam CONSTITUTIONAL/GENERAL: This is an adequately nourished patient, in no apparent distress. Sedated, int'd on [facility] vent TUBES/LINES/DRAINS: SKIN: No jaundice, rashes, or lesions. Skin temperature appropriate. Not diaphoretic. No [place] lesions multiple purple lesions cw septic embolization involving both feet HEAD: Atraumatic. Normocephalic. EYES: Pupils small non reactive equal and round . No scleral icterus. No injection or drainage. Fundi not examined. CARDIOVASCULAR: Regular rate and rhythm without murmurs, gallops, or rubs. Mechanical heart sounds No JVD. Peripheral pulses symmetric. RESPIRATORY/CHEST: Symmetric, unlabored respirations. Scattered rhonchi to auscultation. Breath sounds equal bilaterally. GASTROINTESTINAL: Abdomen soft, non-tender, moderately distended. No hepato- splenomegaly, or palpable masses. No guarding. Bowel sounds present, hypoactive GENITOURINARY: Without palpable bladder distension. Watson catheter in place with clear yellow urine MUSCULOSKELETAL: Extremities without clubbing, 4+ edema. Anasarca LYMPHATICS: No palpable cervical or supraclavicular adenopathy. NEUROLOGICAL Unresponsive. 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 cardiac injury from infx Critically ill , unstable Poor prognosis Not a surgical candidate ? PNA cont fluconazole cont oxacillin + gentamin +RIfampin start ampicillin for Enterococci Dc CFTX dw Swati Camarillo MD Mar 01, 2017 15:19
[2017-03-01 15:57] LABS: BICARBONATE 21.9 MEQ/L (21.0-32.0); POTASSIUM 3.3 MEQ/L (3.5-5.1)
[2017-03-01] MEDS: fentaNYL DRIP 250 ML IV SCH (16:11)
[2017-03-01] MEDS: ACETAMINOPHEN 325 MG TAB PO PRN (17:13)
[2017-03-01] MEDS: FLUCONAZOLE/NACL 400 MG/200 ML IV SCH ×2 (21:00→22:55)
[2017-03-01] MEDS: POTASSIUM CHLOR 20 MEQ PREMIX 100 ML IV PRN (21:01)
[2017-03-02] VITALS (25 sets, daily range): BP systolic 88–107; BP diastolic 60–77; PULSE 93–116; RESP 19–24; TEMP 99.5–101.7; O2SAT 94–100
[2017-03-02] MEDS: GENTAMICIN INJ 100 MG in SODIUM CHLORIDE 0.9% INJ 100 ML IV SCH ×2 (00:28→12:13)
[2017-03-02] MEDS: POTASSIUM CHLOR 20 MEQ PREMIX 100 ML IV PRN ×3 (00:29→22:59)
[2017-03-02] MEDS: ACETAMINOPHEN 325 MG TAB PO PRN ×2 (00:29→18:24)
[2017-03-02] MEDS: AMPICILLIN INJ 2,000 MG in SODIUM CHLORIDE 0.9% INJ 100 ML IV SCH ×7 (00:29→20:27)
[2017-03-02] MEDS: PROPOFOL 1000 MG/100 ML INJ 100 ML IV PRN ×6 (02:37→21:40)
[2017-03-02] MEDS: OXACILLIN INJ 2 GM in SODIUM CHLORIDE 0.9% INJ 100 ML IV SCH ×6 (02:37→23:44)
[2017-03-02 03:50] LABS: VDRL CSF NON-REACTIVE (NON-REACTVE)
[2017-03-02] MEDS: CHLORHEXIDINE GLUCONATE 2 % 1 PACK (2 CLOTHS) TOP SCH (05:37)
[2017-03-02] MEDS: INSULIN NovoLIN REGULAR SUPPLEMENTAL SCALE SQ SCH ×4 (05:39→17:25)
[2017-03-02 06:52] LABS: HEMATOCRIT 30.2 % (35.0-46.0); MEAN CELL VOLUME 73.8 FL (80.0-100.0); MEAN CORPUSCULAR HGB CONC 32.5 % (32.0-36.0); PLATELET COUNT 183 TH/MM3 (150-450); REVIEW FLAG FINAL; WHITE BLOOD COUNT 10.7 TH/MM3 (4.0-11.0)
[2017-03-02 07:13] LABS: BICARBONATE 24.3 MEQ/L (21.0-32.0); MAGNESIUM 1.8 MG/DL (1.5-2.5)
[2017-03-02] MEDS: POTASSIUM CHLOR 40 MEQ PREMIX 100 ML IV PRN ×2 (08:15→10:21)
[2017-03-02] MEDS: RIFAMPIN INJ 300 MG in SODIUM CHLORIDE 0.9% INJ 100 ML IV SCH ×2 (09:00→20:28)
[2017-03-02] MEDS: BUMETANIDE INJ 1 MG/4 ML VIAL IV PUSH SCH (09:44)
[2017-03-02] MEDS: ARTIFICIAL TEARS OPTH SOLN 15 ML BTL EACH EYE SCH ×3 (09:45→16:09)
[2017-03-02] MEDS: FAMOTIDINE 20 MG/2 ML VIAL IV PUSH SCH ×2 (09:45→20:28)
[2017-03-02] MEDS: SODIUM CHLORIDE 0.9% FLUSH 10 ML FLUSH IV FLUSH SCH ×2 (09:45→23:45)
[2017-03-02] MEDS: HEPARIN SODIUM - SQ 10,000 UNITS/ML VIAL SQ SCH ×2 (09:45→23:46)
[2017-03-02] MEDS: DOCUSATE SODIUM 50 MG/SENNA 8.6 MG TAB PO SCH ×2 (09:45→20:28)
[2017-03-02 11:29] LABS: BICARBONATE 25.6 MEQ/L (21.0-32.0); MAGNESIUM 2.1 MG/DL (1.5-2.5); POTASSIUM 3.7 MEQ/L (3.5-5.1)
--- NOTE | 2017-03-02 11:37 | EKG ---
Date Performed: 03/01/2017 Time Performed: 19:04:00 PTAGE: 36 years EKG: SINUS TACHYCARDIA RIGHT BUNDLE BRANCH BLOCK MARKED T-WAVE ABNORMALITY, CONSIDER ANTERIOR IS CHEMIA Prolonged QT interval ABNORMAL ECG PREVIOUS TRACING : 02/26/2017 20.19 DOCTOR: Bridger Spaulding Interpretating Date/Time 03/02/2017 11:36:30
[2017-03-02] MEDS ORDERED: PHARMACY ORDERED LAB ONE (11:45)
[2017-03-02] MEDS: fentaNYL DRIP 250 ML IV SCH (15:22)
--- NOTE | 2017-03-02 16:27 | HHI.HCPN ---
Reason for visit a. To assist with evaluation and management of symptoms including: dyspnea. b. To assist medical decision maker(s) with: better understanding of current medical conditions; weighing benefits/burdens of medical treatment options; making medical treatment decisions. . Subjective/Interval History Patient seen and examined in ICU. Also present Tamara Ponce LCSW. Discussed with Dr. Ponce and nursing staff. No family or friends bedside. Patient remains sedated Diprivan and Fentanyl on mech vent. Off pressor support, BP 92/68. Tmax 101.3. WBC 10.7, hemoglobin 9.8, hematocrit 30.2, platelets 183. Creatinine 1.37. No new imaging. Plan for MRI brain later today per neurology. Repeat sputum and blood cultures pending. . Family/friend interactions Called to speak with mother Fany via phone. Medical update provided. She is appropriately tearful. She verbalizes hopes that she doesn't have to make a decision to take her off of life support, but states "how long to we keep going. " I advised she does not have to make this decision today, we agreed to await MRI results and to reevaluate status on Sunday. She appreciates call. Plan for follow conversation regarding goals on Sunday03/05/17. . Advance Directives Living Will: Never completed Health Care Surrogate: Never completed Durable Power of Mine Analyst: Never completed Advance Directive Specifics Health Care Surrogate(s): No known written advanced directives, family is going to try to find HCS paperwork they think pt previously completed. Patient a single. Children are juvenile. If no written advanced directives, according to [place] statutes health care proxy decision-making falls to a parent. . Significant change in goals: NO CODE. Plan for call to mother on 03/05/17 to give update and reevaluate goals of care. , Objective Vital Signs Date Time Temp Pulse Resp B/P (MAP) Pulse Ox O2 Delivery O2 Flow Rate FiO2 03/02/17 16:02 97 35 03/02/17 13:11 94 35 03/02/17 13:00 109 03/02/17 12:00 106 03/02/17 12:00 35 03/02/17 12:00 100.8 106 22 92/69 (77) 97 89/63 (72) 03/02/17 11:00 101 03/02/17 10:12 97 35 03/02/17 10:00 100.0 104 23 94/68 (77) 97 90/64 (73) 03/02/17 10:00 104 03/02/17 09:00 99.7 99 23 94/72 (79) 95 91/64 (73) 03/02/17 08:00 99.3 93 21 95/68 (77) 97 92/65 (74) 03/02/17 08:00 35 03/02/17 08:00 99.5 03/02/17 08:00 93 03/02/17 07:46 97 35 03/02/17 06:00 93 03/02/17 04:23 98 35 03/02/17 04:00 35 03/02/17 04:00 99.6 95 19 104/77 (86) 98 96/69 (78) 03/02/17 04:00 95 03/02/17 02:00 100 03/02/17 01:35 98 35 03/02/17 00:00 35 03/02/17 00:00 101.3 102 100/73 (82) 98 98/70 (79) 03/02/17 00:00 102 03/01/17 22:28 98 35 03/01/17 22:00 104 03/01/17 20:00 101.1 103 22 114/79 (91) 98 107/74 (85) 03/01/17 20:00 35 03/01/17 20:00 103 03/01/17 19:58 98 35 03/01/17 18:20 110 03/01/17 18:00 111 03/01/17 17:40 109 03/01/17 17:20 111 03/01/17 17:00 114 03/01/17 16:40 114 03/01/17 16:20 113 Intake & Output 03/02/17 03/02/17 06:59 18:59 Intake Total 2307 ml 1450 ml Output Total 4600 ml 1370 ml Balance -2293 ml 80 ml Intake Oral 0 ml IV Total 1857 ml 1450 ml Tube Feeding 450 ml Output Urine Total 4300 ml 1370 ml Stool Total 300 ml Physical Exam CONSTITUTIONAL/GENERAL: This is an adequately nourished patient, sedated on mechanical ventilation. TUBES/LINES/DRAINS: ETT, NG, left subclavian central line, PIV right AC, Watson, SCDs. SKIN: Febrile. Multiple purple lesions bilateral feet. EYES: Pupils pinpoint, non reactive equal and round. No scleral icterus. No injection or drainage. ENT: Unable to assess hearing. Nose with NG tube right nare. Throat difficult to visualize due to ETT. CARDIOVASCULAR: tachycardic, regular rhythm. RESPIRATORY/CHEST: Symmetric, unlabored respirations on vent. Scattered rhonchi to auscultation. GASTROINTESTINAL: Abdomen soft, moderately distended. Bowel sounds hypoactive. GENITOURINARY: Without palpable bladder distension. Watson catheter in place. MUSCULOSKELETAL: Extremities without clubbing, mild cyanosis of toes, 2+ edema. NEUROLOGICAL: Sedated. Not following commands off sedation per nursing. PSYCHIATRIC: sedated: unable to assess. . Diagnostic Tests Laboratory Laboratory Tests Test 02/28/17 05:00 02/28/17 09:50 02/28/17 11:50 03/01/17 05:05 White Blood Count 18.1 TH/MM3 (4.0-11.0) 10.8 TH/MM3 (4.0-11.0) Red Blood Count 4.13 MIL/MM3 (4.00-5.30) 3.67 MIL/MM3 (4.00-5.30) Hemoglobin 9.9 GM/DL (11.6-15.3) 9.2 GM/DL (11.6-15.3) Hematocrit 30.8 % (35.0-46.0) 27.2 % (35.0-46.0) Mean Corpuscular Volume 74.6 FL (80.0-100.0) 74.3 FL (80.0-100.0) Mean Corpuscular Hemoglobin 24.1 PG (27.0-34.0) 25.0 PG (27.0-34.0) Mean Corpuscular Hemoglobin Concent 32.3 % (32.0-36.0) 33.7 % (32.0-36.0) Red Cell Distribution Width 15.8 % (11.6-17.2) 16.0 % (11.6-17.2) Platelet Count 138 TH/MM3 (150-450) 138 TH/MM3 (150-450) Mean Platelet Volume 8.9 FL (7.0-11.0) 8.9 FL (7.0-11.0) Blood Urea Nitrogen 25 MG/DL (7-18) 20 MG/DL (7-18) Creatinine 1.29 MG/DL (0.50-1.00) 1.28 MG/DL (0.50-1.00) Random Glucose 132 MG/DL (74-106) 104 MG/DL (74-106) Calcium Level 7.8 MG/DL (8.5-10.1) 8.0 MG/DL (8.5-10.1) Sodium Level 136 MEQ/L (136-145) 143 MEQ/L (136-145) Potassium Level 3.3 MEQ/L (3.5-5.1) 3.2 MEQ/L (3.5-5.1) Chloride Level 105 MEQ/L (98-107) 112 MEQ/L (98-107) Carbon Dioxide Level 19.9 MEQ/L (21.0-32.0) 22.9 MEQ/L (21.0-32.0) Anion Gap 11 MEQ/L (5-15) 8 MEQ/L (5-15) Estimat Glomerular Filtration Rate 47 ML/MIN (>89) 47 ML/MIN (>89) Gentamicin Level Trough 1.7 MCG/ML (0.0-2.0) Gentamicin Level Peak 3.3 MCG/ML (4.0-8.0) Test 03/01/17 11:42 03/01/17 15:15 03/02/17 06:00 03/02/17 10:57 Blood Urea Nitrogen 19 MG/DL (7-18) 19 MG/DL (7-18) 22 MG/DL (7-18) 23 MG/DL (7-18) Creatinine 1.29 MG/DL (0.50-1.00) 1.32 MG/DL (0.50-1.00) 1.35 MG/DL (0.50-1.00) 1.37 MG/DL (0.50-1.00) Random Glucose 105 MG/DL (74-106) 105 MG/DL (74-106) 106 MG/DL (74-106) 119 MG/DL (74-106) Calcium Level 8.0 MG/DL (8.5-10.1) 8.2 MG/DL (8.5-10.1) 8.0 MG/DL (8.5-10.1) 8.2 MG/DL (8.5-10.1) Magnesium Level 2.1 MG/DL (1.5-2.5) 2.0 MG/DL (1.5-2.5) 1.8 MG/DL (1.5-2.5) 2.1 MG/DL (1.5-2.5) Sodium Level 144 MEQ/L (136-145) 143 MEQ/L (136-145) 142 MEQ/L (136-145) 143 MEQ/L (136-145) Potassium Level 3.8 MEQ/L (3.5-5.1) 3.3 MEQ/L (3.5-5.1) 3.0 MEQ/L (3.5-5.1) 3.7 MEQ/L (3.5-5.1) Chloride Level 114 MEQ/L (98-107) 111 MEQ/L (98-107) 106 MEQ/L (98-107) 105 MEQ/L (98-107) Carbon Dioxide Level 21.2 MEQ/L (21.0-32.0) 21.9 MEQ/L (21.0-32.0) 24.3 MEQ/L (21.0-32.0) 25.6 MEQ/L (21.0-32.0) Anion Gap 9 MEQ/L (5-15) 10 MEQ/L (5-15) 12 MEQ/L (5-15) 12 MEQ/L (5-15) Estimat Glomerular Filtration Rate 47 ML/MIN (>89) 46 ML/MIN (>89) 45 ML/MIN (>89) 44 ML/MIN (>89) White Blood Count 10.7 TH/MM3 (4.0-11.0) Red Blood Count 4.10 MIL/MM3 (4.00-5.30) Hemoglobin 9.8 GM/DL (11.6-15.3) Hematocrit 30.2 % (35.0-46.0) Mean Corpuscular Volume 73.8 FL (80.0-100.0) Mean Corpuscular Hemoglobin 24.0 PG (27.0-34.0) Mean Corpuscular Hemoglobin Concent 32.5 % (32.0-36.0) Red Cell Distribution Width 16.0 % (11.6-17.2) Platelet Count 183 TH/MM3 (150-450) Mean Platelet Volume 8.5 FL (7.0-11.0) Test 03/02/17 11:58 Gentamicin Level Trough 1.7 MCG/ML (0.0-2.0) Result Diagram: 03/02/17 0600 03/02/17 1057 Microbiology Microbiology Date/Time Source Procedure Growth Status 03/01/17 09:38 Blood Peripheral Aerobic Blood Culture - Preliminary NO GROWTH IN 1 DAY Resulted 03/01/17 09:38 Blood Peripheral Anaerobic Blood Culture - Preliminary NO GROWTH IN 1 DAY Resulted 03/01/17 09:33 Blood Peripheral Aerobic Blood Culture - Preliminary NO GROWTH IN 1 DAY Resulted 03/01/17 09:33 Blood Peripheral Anaerobic Blood Culture - Preliminary NO GROWTH IN 1 DAY Resulted 03/01/17 21:15 Sputum Endotracheal Gram Stain - Final Resulted 03/01/17 21:15 Sputum Endotracheal Sputum Culture - Preliminary RESULTS PENDING Resulted Imaging Last Impressions Chest X-Ray 02/27/17 0000 Signed Impressions: Service Date/Time: Monday, February 27, 2017 11:56 - CONCLUSION: Left subclavian central line in good position without pneumothorax. Ananth Ponce Jr., MD Head CT 02/26/17 0000 Signed Impressions: Service Date/Time: Sunday, February 26, 2017 19:47 - CONCLUSION: No evidence of acute infarct, hemorrhage, mass or edema. Ken Sanchez MD Procedures * 02/26/17 - left subclavian central placement. * 02/26/17 - lumbar puncture * 02/26/17 - Intubated. . Assessment and Plan Disease Oriented Problem List: (1) Protein-calorie malnutrition, severe (2) Elevated troponin (3) Meningitis (4) Encephalopathy (5) Bacterial endocarditis (6) Polysubstance abuse (7) Sepsis (8) Acute kidney injury Symptom Scale: (1) Pain 0-10 Scale: Unable to quantify (2) Dyspnea 0-10 Scale: Unable to quantify (3) Encephalopathy 0-10 Scale: Unable to quantify Pertinent Non-Medical Issues Psychosocial: single. 2 juvenile children. Supported by mother, stepfather and boyfriend. Spiritual: Unknown. Legal: patient is incapacitated. No written advanced directives. Patient a single. Children are juvenile. According to [place] statutes health care proxy decision-making falls to a parent. Ethical issues impacting care: No known concerns at this time. . Important Contacts * Fany Nielsen, mother: [phone] * Karsten Nielsen, stepfather: [phone] . Prognosis Prognosis poor. Code Status: No Code Plan * Decision Maker: patient is incapacitated. No written advanced directives. Patient a single. Children are juvenile. According to [place] statutes health care proxy decision-making falls to a parent. * NO CODE * 03/02/17 - Called to speak with mother Fany via phone. Medical update provided. She is appropriately tearful. She verbalizes hopes that she doesn't have to make a decision to take her off of life support, but states "how long to we keep going." I advised she does not have to make this decision today, we agreed to await MRI results and to reevaluate status on Sunday. She appreciates call. Plan for follow conversation regarding goals on Sunday03/05/17. * SYMPTOMS: Pain: No obvious signs of pain. Potential sources include endocarditis, bedbound status, tubes etc. Currently on fentanyl and propofol. Patient with likely high tolerance given history of IV drug use, will monitor effective medications. Dyspnea: remains sedated on mechanical ventilation. No new medication recommendations at this time. * Palliative care will continue to follow throughout hospital course to assist with symptom management and clarification of goals as needed. . Attestation To help prompt me to consider important information that might be impacting today's encounter and assessment, information from prior notes written by myself or my colleagues may have been "brought forward" into today's note. My signature on this note, however, is an attestation that I personally performed the exam, history, and/or decision-making noted today, and, unless otherwise indicated, the interactions with patient, family, and staff as well as the review of records all occurred today. I also attest that the listed assessment and stated plan reflect my best clinical judgment today based on the combination of historical information, prior notes, and today's exam/ interactions. When time spent is documented, it refers only to time spent today by the signer, or if indicated, combined time spent today by collaborating physician/nurse practitioner. Shanice García Mar 02, 2017 16:27
--- NOTE | 2017-03-02 16:40 | HHI.IDPN ---
Subjective Subjective Remarks Doing poorly remains on vent Opens eyes to voice MSSA in CSF MSSA and enterocci in blood clx 2D echo with TV vegertationand severely reduced EF off pressors good UOP Fever, low grade less secretions Antibiotics ampicillin oxacillin gent rifampin fluconazole Allergies: Coded Allergies: No Known Allergies (Verified , 09/01/15) Objective . Vital Signs Date Time Temp Pulse Resp B/P (MAP) Pulse Ox O2 Delivery O2 Flow Rate FiO2 03/02/17 16:02 97 35 03/02/17 13:11 94 35 03/02/17 13:00 109 03/02/17 12:00 106 03/02/17 12:00 35 03/02/17 12:00 100.8 106 22 92/69 (77) 97 89/63 (72) 03/02/17 11:00 101 03/02/17 10:12 97 35 03/02/17 10:00 100.0 104 23 94/68 (77) 97 90/64 (73) 03/02/17 10:00 104 03/02/17 09:00 99.7 99 23 94/72 (79) 95 91/64 (73) 03/02/17 08:00 99.3 93 21 95/68 (77) 97 92/65 (74) 03/02/17 08:00 35 03/02/17 08:00 99.5 03/02/17 08:00 93 03/02/17 07:46 97 35 03/02/17 06:00 93 03/02/17 04:23 98 35 03/02/17 04:00 35 03/02/17 04:00 99.6 95 19 104/77 (86) 98 96/69 (78) 03/02/17 04:00 95 03/02/17 02:00 100 03/02/17 01:35 98 35 03/02/17 00:00 35 03/02/17 00:00 101.3 102 100/73 (82) 98 98/70 (79) 03/02/17 00:00 102 03/01/17 22:28 98 35 03/01/17 22:00 104 03/01/17 20:00 101.1 103 22 114/79 (91) 98 107/74 (85) 03/01/17 20:00 35 03/01/17 20:00 103 03/01/17 19:58 98 35 03/01/17 18:20 110 03/01/17 18:00 111 03/01/17 17:40 109 03/01/17 17:20 111 03/01/17 17:00 114 03/01/17 16:40 114 03/02/17 03/02/17 03/03/17 15:00 23:00 07:00 Intake Total 1350 ml 100 ml Output Total 1370 ml Balance -20 ml 100 ml IV Total 1350 ml 100 ml Output Urine Total 1370 ml . Laboratory Tests Test 03/01/17 05:05 03/02/17 06:00 White Blood Count 10.8 TH/MM3 10.7 TH/MM3 Red Blood Count 3.67 MIL/MM3 4.10 MIL/MM3 Hemoglobin 9.2 GM/DL 9.8 GM/DL Hematocrit 27.2 % 30.2 % Mean Corpuscular Volume 74.3 FL 73.8 FL Mean Corpuscular Hemoglobin 25.0 PG 24.0 PG Mean Corpuscular Hemoglobin Concent 33.7 % 32.5 % Red Cell Distribution Width 16.0 % 16.0 % Platelet Count 138 TH/MM3 183 TH/MM3 Mean Platelet Volume 8.9 FL 8.5 FL Laboratory Tests Test 03/01/17 05:05 03/01/17 11:42 03/01/17 15:15 03/02/17 06:00 Blood Urea Nitrogen 20 MG/DL 19 MG/DL 19 MG/DL 22 MG/DL Creatinine 1.28 MG/DL 1.29 MG/DL 1.32 MG/DL 1.35 MG/DL Random Glucose 104 MG/DL 105 MG/DL 105 MG/DL 106 MG/DL Calcium Level 8.0 MG/DL 8.0 MG/DL 8.2 MG/DL 8.0 MG/DL Sodium Level 143 MEQ/L 144 MEQ/L 143 MEQ/L 142 MEQ/L Potassium Level 3.2 MEQ/L 3.8 MEQ/L 3.3 MEQ/L 3.0 MEQ/L Chloride Level 112 MEQ/L 114 MEQ/L 111 MEQ/L 106 MEQ/L Carbon Dioxide Level 22.9 MEQ/L 21.2 MEQ/L 21.9 MEQ/L 24.3 MEQ/L Anion Gap 8 MEQ/L 9 MEQ/L 10 MEQ/L 12 MEQ/L Estimat Glomerular Filtration Rate 47 ML/MIN 47 ML/MIN 46 ML/MIN 45 ML/MIN Magnesium Level 2.1 MG/DL 2.0 MG/DL 1.8 MG/DL Test 03/02/17 10:57 Blood Urea Nitrogen 23 MG/DL Creatinine 1.37 MG/DL Random Glucose 119 MG/DL Calcium Level 8.2 MG/DL Magnesium Level 2.1 MG/DL Sodium Level 143 MEQ/L Potassium Level 3.7 MEQ/L Chloride Level 105 MEQ/L Carbon Dioxide Level 25.6 MEQ/L Anion Gap 12 MEQ/L Estimat Glomerular Filtration Rate 44 ML/MIN Microbiology Date/Time Source Procedure Growth Status 03/01/17 09:38 Blood Peripheral Aerobic Blood Culture - Preliminary NO GROWTH IN 1 DAY Resulted 03/01/17 09:38 Blood Peripheral Anaerobic Blood Culture - Preliminary NO GROWTH IN 1 DAY Resulted 03/01/17 09:33 Blood Peripheral Aerobic Blood Culture - Preliminary NO GROWTH IN 1 DAY Resulted 03/01/17 09:33 Blood Peripheral Anaerobic Blood Culture - Preliminary NO GROWTH IN 1 DAY Resulted 03/01/17 21:15 Sputum Endotracheal Gram Stain - Final Resulted 03/01/17 21:15 Sputum Endotracheal Sputum Culture - Preliminary RESULTS PENDING Resulted Imaging Last Impressions Chest X-Ray 02/27/17 0000 Signed Impressions: Service Date/Time: Monday, February 27, 2017 11:56 - CONCLUSION: Left subclavian central line in good position without pneumothorax. Ananth Ponce Jr., MD Head CT 02/26/17 0000 Signed Impressions: Service Date/Time: Sunday, February 26, 2017 19:47 - CONCLUSION: No evidence of acute infarct, hemorrhage, mass or edema. Ken Sanchez MD Physical Exam CONSTITUTIONAL/GENERAL: This is an adequately nourished patient, in no apparent distress. Sedated, int'd on [facility] vent TUBES/LINES/DRAINS: SKIN: No jaundice, rashes, or lesions. Skin temperature appropriate. Not diaphoretic. multiple embolic lesions cw septic embolization involving L lower leg and both feet HEAD: Atraumatic. Normocephalic. EYES: Pupils small non reactive equal and round . No scleral icterus. No injection or drainage. Fundi not examined. CARDIOVASCULAR: Regular rate and rhythm without murmurs, gallops, or rubs. Mechanical heart sounds No JVD. Peripheral pulses symmetric. RESPIRATORY/CHEST: Symmetric, unlabored respirations. Scattered rhonchi to auscultation. Breath sounds equal bilaterally. GASTROINTESTINAL: Abdomen soft, non-tender, moderately distended. No hepato- splenomegaly, or palpable masses. No guarding. Bowel sounds present, hypoactive GENITOURINARY: Without palpable bladder distension. Watson catheter in place with clear yellow urine MUSCULOSKELETAL: Extremities without clubbing, 4+ edema. Anasarca LYMPHATICS: No palpable cervical or supraclavicular adenopathy. NEUROLOGICAL Unresponsive. 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 cardiac injury from infx Critically ill , unstable Poor prognosis Not a surgical candidate ? PNA, clx P dc fluconazole cont oxacillin + gentamin +RIfampin cont ampicillin for Enterococci fu repeat blood clx Swati Spaulding MD Mar 02, 2017 16:40
[2017-03-02] MEDS ORDERED: GADODIAMIDE PF 287 MG/ML 20 ML VIAL (for RAD MRI) IVCONTRAST ONE (17:25)
--- NOTE | 2017-03-02 18:09 | RADRPT ---
EXAM DATE/TIME: 03/02/2017 17:07 [facility] COMPARISON: CT BRAIN W/O CONTRAST, February 26, 2017, 19:47. MRI BRAIN W & W/O CONTRAST, July 13, 2015, 17:05. INDICATIONS : Encephalitis. CONTRAST: 20 cc Multihance (gadobenate) IV MEDICAL HISTORY : Hepatitis C. Congestive heart failure. Endocarditis. SURGICAL HISTORY : Aortic valve replacement. ENCOUNTER: Initial ACUITY: 1 day PAIN SCORE: 0/10 LOCATION: cranial TECHNIQUE: Multiplanar, multisequence MRI of the brain was performed both prior to and following the administrat ion of paramagnetic contrast. FINDINGS: 7 x 11 mm focal area of restricted diffusion seen in the cortical region of the left parietal lobe, s eries 7 image 43. Faint flair and T1 signal abnormality seen in the periventricular white matter of the left parietal l obe without abnormal enhancement. Otherwise, scattered, chronic subcentimeter foci of flair signal ab normality seen in the periventricular white matter of posterior ebral hemispheres. No mass lesion or midline shift. CONCLUSION: 1. Small acute or subacute cortical infarct of the left parietal lobe. 2. Small, faint area of nonspecific flair signal abnormality in the left frontal lobe periventricular white matter, nonspecific. No associated mass effect or abnormal enhancement. 3 month followup MRI o f the brain recommended. 3. Mild chronic white matter changes. Adalid Perry MD on March 02, 2017 at 18:03 Board Certified Radiologist. This report was verified electronically.
[2017-03-02] MEDS: BUMETANIDE INJ 100 ML IV SCH (18:43)
[2017-03-02 18:50] LABS: BICARBONATE 24.9 MEQ/L (21.0-32.0); MAGNESIUM 2.2 MG/DL (1.5-2.5); POTASSIUM 3.2 MEQ/L (3.5-5.1)
[2017-03-02] MEDS: FLUCONAZOLE/NACL 400 MG/200 ML IV SCH ×2 (20:27→23:36)
--- NOTE | 2017-03-02 22:10 | HHI.CCPN ---
Subjective Remarks/Hospital Course Hospital Course: 36-year-old female who presents initially as a stroke alert. According to EMS report the patient has a history of fungal endocarditis with previous IVDA. EMS states that the patient is currently on hospice, however, they are unsure if the patient is a DNR. EMS states the patient apparently complained of a headache earlier today, was found lying on the floor and incontinent of stool at approximate, last seen normal at 6:45 PM. Therefore, EMS called a stroke alert in the field as the patient was aphasic and confused. Upon arrival the patient groans, moves all 4 extremities and withdraws all 4 extremities, but is unable to provide any information. She was intubated in the emergency department by ER attending for airway protection. subjective: 02/27: remains encephalopathic. Blood cultures growing Staph in 4/ bottles. 02/28: Remains sedated/ encephalopathic, orally intubated on mechanical ventilation. 03/01: still in shock on vasopressors. grossly volume overloaded and intravascularly volume overloaded based on echo and clinically. needs aggressive diuresis, but still in shock. family made patient DNR last night, but want to continue aggressive therapies. still encephalopathic. no significant improvements. 03/02: seen and examined at around 06:45am. delayed note entry. remains encephalopathic. no significant changes. unlikely to survive hospital stay, no additional overall therapies. family wants aggressive treatment. diuresing on bumex drip. net 3.3L negative. still volume overloaded. Objective Vital Signs Date Time Temp Pulse Resp B/P (MAP) Pulse Ox O2 Delivery O2 Flow Rate FiO2 03/02/17 20:39 98 35 03/02/17 18:00 116 03/02/17 16:00 101.8 24 101/70 (80) 102/73 (83) 02/26/17 19:30 4.00 02/26/17 19:30 Nasal Cannula Intake and Output 03/02/17 03/02/17 03/02/17 07:59 15:59 23:59 Intake Total 2307 ml 1450 ml 531 ml Output Total 4600 ml 1370 ml 1450 ml Balance -2293 ml 80 ml -919 ml Result Diagram: 03/02/17 0600 03/02/17 1814 Imaging Last Impressions Chest X-Ray 02/27/17 0000 Signed Impressions: Service Date/Time: Monday, February 27, 2017 11:56 - CONCLUSION: Left subclavian central line in good position without pneumothorax. Ananth Ponce Jr., MD Head CT 02/26/17 0000 Signed Impressions: Service Date/Time: Sunday, February 26, 2017 19:47 - CONCLUSION: No evidence of acute infarct, hemorrhage, mass or edema. Ken Sanchez MD Objective Remarks GENERAL: critically ill middle-aged female, Sedated and intubated SKIN: Warm and dry. HEAD: Normocephalic. EYES: No scleral icterus. No injection or drainage. NECK: trachea midline. +JVD CARDIOVASCULAR: tachycardic rate, regular rhythm. RESPIRATORY: equal chest rise. PRVC, 40% fio2. No accessory muscle use. GASTROINTESTINAL: Abdomen soft, non-tender, nondistended. no guarding. MUSCULOSKELETAL: No cyanosis. 3+ edema above thighs. gross anasarca. NEURO EXAM: purposeful. moves all extremities spontaneously. w/d to pain. grimaces to pain. does not open eyes to stimulation. does not follow commands. RASS -3. 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 Very critically ill. very poor prognosis given her ongoing drug abuse. palliative following. still aggressive care for now, though DNR. off pathway; if we withdraw support she would . continues to be critically ill at this time. Acute hypoxic and hypercarbic Respiratory failure - no SBT today given persistent encephalopathy - No weaning until neurologically and hemodynamically stable - wean fio2 for spo2 > 90% - hob at 30 degrees, vent bundle, nebs Acute Encephalopathy Acute meningitis, possible bacterial - LP with elevated protein, and low glucose relative to serum glucose. - CT head negative - Neuro checks per unit protocol History of fungal endocarditis Staph Bacteremia Tricuspid valve infective endocarditis - History of IVDA - Broad-spectrum antibiotic and antifungal - Infectious disease consultation Mixed Septic/cardiogenic Shock Acute congestive heart failure secondary to valvulopathy Tricuspid Regurgitation - start Bumex drip - will need to continue vasopressors while we force diuresis to optimize cardiac function despite ongoing mixed shock. Acute Kidney Injury -secondary to shock - will need to pursue forced diuresis to optimize cardiac output despite DUONG. - pedroza catheter Acute Protein calorie malnutrition- severe - secondary to long-standing IVDA and endocarditis - continue TF DVT GI prophylaxis - Teds SCDs - Subcutaneous heparin - Luke Baca MD Mar 02, 2017 22:10
[2017-03-03] VITALS (25 sets, daily range): BP systolic 80–115; BP diastolic 53–75; PULSE 84–198; RESP 17–21; TEMP 97.7–103.6; O2SAT 95–100
[2017-03-03 00:06] LABS: BICARBONATE 25.3 MEQ/L (21.0-32.0); MAGNESIUM 2.1 MG/DL (1.5-2.5); POTASSIUM 3.3 MEQ/L (3.5-5.1)
[2017-03-03] MEDS: ACETAMINOPHEN 325 MG TAB PO PRN ×2 (00:57→09:07)
[2017-03-03] MEDS: PROPOFOL 1000 MG/100 ML INJ 100 ML IV PRN ×8 (00:57→23:11)
[2017-03-03] MEDS: GENTAMICIN/SOD CHL 80 MG/100 ML IV SCH ×3 (00:58→22:44)
[2017-03-03] MEDS: OXACILLIN INJ 2 GM in SODIUM CHLORIDE 0.9% INJ 100 ML IV SCH ×6 (01:22→22:07)
[2017-03-03] MEDS: AMPICILLIN INJ 2,000 MG in SODIUM CHLORIDE 0.9% INJ 100 ML IV SCH ×7 (01:23→23:17)
[2017-03-03] MEDS: POTASSIUM CHLOR 20 MEQ PREMIX 100 ML IV PRN ×3 (01:32→13:04)
[2017-03-03 03:59] LABS: HEMATOCRIT 31.2 % (35.0-46.0); MEAN CELL VOLUME 73.8 FL (80.0-100.0); MEAN CORPUSCULAR HEMOGLOBIN 24.1 PG (27.0-34.0); MEAN CORPUSCULAR HGB CONC 32.7 % (32.0-36.0); PLATELET COUNT 217 TH/MM3 (150-450); RED BLOOD COUNT 4.23 MIL/MM3 (4.00-5.30); RED CELL DISTRIBUTION WIDTH 16.3 % (11.6-17.2); WHITE BLOOD COUNT 12.3 TH/MM3 (4.0-11.0)
[2017-03-03] MEDS: CHLORHEXIDINE GLUCONATE 2 % 1 PACK (2 CLOTHS) TOP SCH (04:00)
[2017-03-03 04:12] LABS: BICARBONATE 26.4 MEQ/L (21.0-32.0); MAGNESIUM 2.1 MG/DL (1.5-2.5); POTASSIUM 3.4 MEQ/L (3.5-5.1)
[2017-03-03 04:56] LABS: REVIEW FLAG FINAL
[2017-03-03] MEDS: INSULIN NovoLIN REGULAR SUPPLEMENTAL SCALE SQ SCH ×5 (06:00→23:16)
[2017-03-03] MEDS: FAMOTIDINE 20 MG/2 ML VIAL IV PUSH SCH ×2 (08:12→20:44)
[2017-03-03] MEDS: DOCUSATE SODIUM 50 MG/SENNA 8.6 MG TAB PO SCH ×2 (08:12→20:59)
[2017-03-03] MEDS: BUMETANIDE INJ 1 MG/4 ML VIAL IV PUSH SCH (08:12)
[2017-03-03] MEDS: HEPARIN SODIUM - SQ 10,000 UNITS/ML VIAL SQ SCH ×2 (08:12→20:45)
[2017-03-03] MEDS: SODIUM CHLORIDE 0.9% FLUSH 10 ML FLUSH IV FLUSH SCH ×2 (08:12→20:43)
[2017-03-03] MEDS: ARTIFICIAL TEARS OPTH SOLN 15 ML BTL EACH EYE SCH ×3 (08:14→18:00)
[2017-03-03] MEDS: POTASSIUM CHLOR 40 MEQ PREMIX 100 ML IV PRN (09:11)
[2017-03-03] MEDS ORDERED: METOPROLOL TARTRATE 5 MG/5 ML VIAL ONE (10:29)
[2017-03-03] MEDS ORDERED: DILTIAZEM INJ 125 MG in SODIUM CHLORIDE 0.9% INJ 100 ML IV PRN (10:30)
[2017-03-03] MEDS ORDERED: DILTIAZEM HCL 25 MG/5 ML VIAL IV PUSH ONE (10:30)
[2017-03-03] MEDS: RIFAMPIN INJ 300 MG in SODIUM CHLORIDE 0.9% INJ 100 ML IV SCH ×2 (10:39→20:59)
[2017-03-03] MEDS ORDERED: METOPROLOL TARTRATE 5 MG/5 ML VIAL IV PUSH PRN (11:00)
[2017-03-03] MEDS ORDERED: DILTIAZEM HCL 25 MG/5 ML VIAL IV PUSH PRN (11:00)
[2017-03-03 11:06] LABS: BLOOD GAS BASE EXCESS 0.2 mmol/L (-2-2); BLOOD GAS CARBOXYHEMOGLOBIN 1.5 % (0-4); BLOOD GAS HCO3 24 mmol/L (22-26); BLOOD GAS METHEMOGLOBIN 1.1 % (0-2); BLOOD GAS O2 HGB SATURATION 96 % (90-100); BLOOD GAS OXYGEN CONTENT 14.5 Vol % (12.0-20.0); BLOOD GAS PCO2 35 mmHg (38-42); BLOOD GAS PO2 128 mmHg (61-120); BLOOD GAS TOTAL HGB 10.6 G/DL (12.0-16.0); CRITICAL VALUE NO; OXYGEN DEVICE VENTILATOR; TEMP CORR TO 98.6
[2017-03-03 11:07] LABS: DRAW SITE ART LINE; FIO2 35 %; STAT NO; ULNAR PULSE PRESENT
[2017-03-03] MEDS: ACETAMINOPHEN 1000 MG/100 ML VIAL IV PRN (11:10)
--- NOTE | 2017-03-03 11:19 | HHI.CCPN ---
Subjective Remarks/Hospital Course Hospital Course: 36-year-old female who presents initially as a stroke alert. According to EMS report the patient has a history of fungal endocarditis with previous IVDA. EMS states that the patient is currently on hospice, however, they are unsure if the patient is a DNR. EMS states the patient apparently complained of a headache earlier today, was found lying on the floor and incontinent of stool at approximate, last seen normal at 6:45 PM. Therefore, EMS called a stroke alert in the field as the patient was aphasic and confused. Upon arrival the patient groans, moves all 4 extremities and withdraws all 4 extremities, but is unable to provide any information. She was intubated in the emergency department by ER attending for airway protection. subjective: 02/27: remains encephalopathic. Blood cultures growing Staph in 4/ bottles. 02/28: Remains sedated/ encephalopathic, orally intubated on mechanical ventilation. 03/01: still in shock on vasopressors. grossly volume overloaded and intravascularly volume overloaded based on echo and clinically. needs aggressive diuresis, but still in shock. family made patient DNR last night, but want to continue aggressive therapies. still encephalopathic. no significant improvements. 03/02: seen and examined at around 06:45am. delayed note entry. remains encephalopathic. no significant changes. unlikely to survive hospital stay, no additional overall therapies. family wants aggressive treatment. diuresing on bumex drip. net 3.3L negative. still volume overloaded. 03/03: Tmax 102.8 This am patient went into SVT rhythm heart rate 190's. Cooling blanket placed, ice packs in place, metoprolol 5 mg IV push given, resolution heart rate mid 90s, MAP ranges 66-68. Ofirmev ordered. Bumex infusion discontinued secondary to elevation in creatinine. Chest x-ray pending. Objective Vital Signs Date Time Temp Pulse Resp B/P (MAP) Pulse Ox O2 Delivery O2 Flow Rate FiO2 03/03/17 11:01 19 03/03/17 10:10 97 35 03/03/17 06:00 118 03/03/17 04:00 102.7 109/70 (83) 93/66 (75) Intake and Output 03/03/17 03/03/17 03/03/17 07:59 15:59 23:59 Intake Total 2849 ml 307 ml Output Total 2925 ml Balance -76 ml 307 ml Result Diagram: 03/03/1731603/03/17316 Imaging Last Impressions Chest X-Ray 02/27/17 0000 Signed Impressions: Service Date/Time: Monday, February 27, 2017 11:56 - CONCLUSION: Left subclavian central line in good position without pneumothorax. Ananth Ponce Jr., MD Head CT 02/26/17 0000 Signed Impressions: Service Date/Time: Sunday, February 26, 2017 19:47 - CONCLUSION: No evidence of acute infarct, hemorrhage, mass or edema. Ken Sanchez MD Objective Remarks GENERAL: This is obese ,critically ill middle-aged female, sedated and intubated SKIN: Warm and dry. Ecchymotic bruising noted on peripheral extremities HEAD: Normocephalic. EYES: No scleral icterus. No injection or drainage. NECK: trachea midline. +JVD CARDIOVASCULAR: tachycardic rate, regular rhythm. RESPIRATORY: Mechanical ventilation equal chest rise. PRVC, 35% fio2. No accessory muscle use. GASTROINTESTINAL: Abdomen soft, non-tender, nondistended. no guarding. MUSCULOSKELETAL: No cyanosis. 2+ peripheral edema. Generalized anasarca. Multiple petechiae and ecchymotic bruising secondary to most likely septic emboli NEURO EXAM: GCS 6T. moves all extremities spontaneously. Withdraws to pain. does not open eyes to stimulation. does not follow commands. RASS -3. 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 Critically ill. Poor prognosis given her ongoing drug abuse. Palliative Care following. still aggressive care for now, though DNR. Acute hypoxic and hypercarbic Respiratory failure - no SBT today given persistent encephalopathy - No weaning until neurologically and hemodynamically stable - wean fio2 for spo2 > 90% - hob at 30 degrees, vent bundle, nebs -Obtain chest x-ray follow-up results -ABG 7.44/35/128/23/0.2 Acute Encephalopathy Acute meningitis, possible bacterial - LP with elevated protein, and low glucose relative to serum glucose. - CT head negative -MRI-small acute and subacute cortical infarct of left parietal lobe - Neuro checks per unit protocol -Ofirmev 1 g every 6 hours when necessary temp greater than 101.0 -Apply cooling blanket for temp greater than 101.0 SVT - Metoprolol 2.5 mg every 6 hours when necessary heart rate greater than 100bpm History of fungal endocarditis Staph Bacteremia Tricuspid valve infective endocarditis - History of IVDA - Broad-spectrum antibiotic and antifungal - Infectious disease following, Dr. Spaulding Mixed Septic/cardiogenic Shock Acute congestive heart failure secondary to valvulopathy Tricuspid Regurgitation - Discontinued Bumex drip 03/03 - Monitor CVP, vasopressor support if indicated Acute Kidney Injury -secondary to shock - Strict I and O's - pedroza catheter Acute Protein calorie malnutrition- severe - secondary to long-standing IVDA and endocarditis - continue TF DVT GI prophylaxis - Teds SCDs - Subcutaneous heparin - Pepcid Dispo: Discussed with HOUSE MOVING SUPERVISOR at bedside. This patient remains critically ill with one or more organ systems which are or may become a threat to life. I have spent in excess of 35 minutes discontinuously in the care and management of this patient. This time is exclusive of procedures, and includes, but is not limited to, evaluation of the patient, review of the medical record, discussions with family, consultants, nursing staff, or respiratory therapy, and documentation in the medical record. Physician Surekha Frazier MD Mar 03, 2017 11:19
--- NOTE | 2017-03-03 12:11 | RADRPT ---
EXAM DATE/TIME: 03/03/2017 12:00 [facility] COMPARISON: CHEST SINGLE AP, February 27, 2017, 11:56. INDICATIONS : Shortness of breath. MEDICAL HISTORY : Endocarditis, pneumonia, poly substance abuse. renal failure, respiratory SURGICAL HISTORY : CABG. ENCOUNTER: Subsequent ACUITY: 2 months PAIN SCORE: Non-responsive. LOCATION: Bilateral chest FINDINGS: Single AP portable upright view of the chest demonstrates endotracheal tube with the tip overlying th e level of the clavicles, stable. Stable left-sided central line with the tip overlying the distal SV C. NG tube in present in extending beyond the imaged portion of the film. The lungs are mildly hypoin flated but clear. Heart size is normal. Mild cephalization of vasculature which may be secondary to p ortable technique. All structures are grossly unremarkable. CONCLUSION: Stable lines and tubes. The lungs are mildly hypoinflated but clear. Alcira Lopes MD on March 03, 2017 at 12:08 Board Certified Radiologist. This report was verified electronically.
--- NOTE | 2017-03-03 15:18 | EKG ---
Date Performed: 03/03/2017 Time Performed: 10:23:16 PTAGE: 36 years EKG: Probable supraventricular tachycardia Right bundle branch block Abnormal ECG PREVIOUS TRACING : 03/01/2017 19.04 Compared to the previous tracing tachycardia now present DOCTOR: Catherine Floyd Interpretating Date/Time 03/03/2017 15:17:31
[2017-03-03] MEDS: FLUCONAZOLE/NACL 400 MG/200 ML IV SCH ×2 (20:37→22:43)
--- NOTE | 2017-03-03 21:05 | HHI.IDPN ---
Subjective Subjective Remarks having high lox5grd up to 103.6 intermittently remains on vent Opens eyes to voice MSSA in CSF MSSA and enterocci in blood clx 2D echo with TV vegertationand severely reduced EF off pressors good UOP less secretions Antibiotics ampicillin oxacillin gent rifampin fluconazole Allergies: Coded Allergies: No Known Allergies (Verified , 09/01/15) Objective . Vital Signs Date Time Temp Pulse Resp B/P (MAP) Pulse Ox O2 Delivery O2 Flow Rate FiO2 03/03/17 20:04 100 35 03/03/17 18:00 93 03/03/17 17:00 93 80/53 (62) 100 03/03/17 16:14 99 35 03/03/17 16:00 97.7 03/03/17 16:00 85 98/64 (75) 99 87/59 (68) 03/03/17 16:00 85 03/03/17 16:00 35 03/03/17 15:00 84 03/03/17 15:00 84 03/03/17 14:00 93 03/03/17 13:02 100 35 03/03/17 12:00 35 03/03/17 12:00 99.1 110 17 107/69 (82) 100 85/57 (66) 03/03/17 12:00 110 03/03/17 12:00 110 107/69 (82) 100 85/57 (66) 03/03/17 11:01 19 03/03/17 11:00 103.6 106 85/60 (68) 97 03/03/17 10:10 97 35 03/03/17 10:00 103.8 198 81/64 (70) 98 03/03/17 10:00 198 03/03/17 09:00 103.3 125 101/71 (81) 95 03/03/17 08:00 35 03/03/17 08:00 103.6 03/03/17 08:00 123 03/03/17 08:00 102.7 123 115/75 (88) 96 98/67 (77) 03/03/17 07:29 96 35 03/03/17 06:00 118 03/03/17 04:14 98 35 03/03/17 04:00 102.7 119 109/70 (83) 98 93/66 (75) 03/03/17 04:00 119 03/03/17 04:00 35 03/03/17 02:00 119 03/03/17 00:00 115 03/03/17 00:00 35 03/03/17 00:00 102.6 115 21 107/72 (84) 98 98/67 (77) 03/02/17 23:51 98 35 03/02/17 22:00 114 03/03/17 03/03/17 03/04/17 14:59 22:59 06:59 Intake Total 1057 ml 1660 ml Output Total 2150 ml Balance 1057 ml -490 ml IV Total 1057 ml 917 ml Tube Feeding 563 ml Tube Irrigant 180 ml Output Urine Total 1550 ml Stool Total 600 ml . Laboratory Tests Test 03/02/17 06:00 03/03/17 03:17 White Blood Count 10.7 TH/MM3 12.3 TH/MM3 Red Blood Count 4.10 MIL/MM3 4.23 MIL/MM3 Hemoglobin 9.8 GM/DL 10.2 GM/DL Hematocrit 30.2 % 31.2 % Mean Corpuscular Volume 73.8 FL 73.8 FL Mean Corpuscular Hemoglobin 24.0 PG 24.1 PG Mean Corpuscular Hemoglobin Concent 32.5 % 32.7 % Red Cell Distribution Width 16.0 % 16.3 % Platelet Count 183 TH/MM3 217 TH/MM3 Mean Platelet Volume 8.5 FL 9.0 FL Laboratory Tests Test 03/02/17 06:00 03/02/17 10:57 03/02/17 18:14 03/02/17 23:19 Blood Urea Nitrogen 22 MG/DL 23 MG/DL 25 MG/DL 29 MG/DL Creatinine 1.35 MG/DL 1.37 MG/DL 1.41 MG/DL 1.46 MG/DL Random Glucose 106 MG/DL 119 MG/DL 107 MG/DL 133 MG/DL Calcium Level 8.0 MG/DL 8.2 MG/DL 8.1 MG/DL 8.0 MG/DL Magnesium Level 1.8 MG/DL 2.1 MG/DL 2.2 MG/DL 2.1 MG/DL Sodium Level 142 MEQ/L 143 MEQ/L 141 MEQ/L 141 MEQ/L Potassium Level 3.0 MEQ/L 3.7 MEQ/L 3.2 MEQ/L 3.3 MEQ/L Chloride Level 106 MEQ/L 105 MEQ/L 104 MEQ/L 105 MEQ/L Carbon Dioxide Level 24.3 MEQ/L 25.6 MEQ/L 24.9 MEQ/L 25.3 MEQ/L Anion Gap 12 MEQ/L 12 MEQ/L 12 MEQ/L 11 MEQ/L Estimat Glomerular Filtration Rate 45 ML/MIN 44 ML/MIN 42 ML/MIN 41 ML/MIN Test 03/03/17 03:17 Blood Urea Nitrogen 33 MG/DL Creatinine 1.58 MG/DL Random Glucose 141 MG/DL Calcium Level 8.2 MG/DL Magnesium Level 2.1 MG/DL Sodium Level 143 MEQ/L Potassium Level 3.4 MEQ/L Chloride Level 104 MEQ/L Carbon Dioxide Level 26.4 MEQ/L Anion Gap 13 MEQ/L Estimat Glomerular Filtration Rate 37 ML/MIN Microbiology Date/Time Source Procedure Growth Status 03/01/17 09:38 Blood Peripheral Aerobic Blood Culture - Preliminary NO GROWTH IN 2 DAYS Resulted 03/01/17 09:38 Blood Peripheral Anaerobic Blood Culture - Preliminary NO GROWTH IN 2 DAYS Resulted 03/01/17 09:33 Blood Peripheral Aerobic Blood Culture - Preliminary NO GROWTH IN 2 DAYS Resulted 03/01/17 09:33 Blood Peripheral Anaerobic Blood Culture - Preliminary NO GROWTH IN 2 DAYS Resulted 03/01/17 21:15 Sputum Endotracheal Gram Stain - Final Resulted 03/01/17 21:15 Sputum Endotracheal Sputum Culture - Preliminary NO GROWTH IN 24 HOURS. Resulted Imaging Last Impressions Chest X-Ray 03/03/17 0000 Signed Impressions: Service Date/Time: Friday, March 03, 2017 12:00 - CONCLUSION: Stable lines and tubes. The lungs are mildly hypoinflated but clear. Alcira Lopes MD Brain MRI 03/02/17 0000 Signed Impressions: Service Date/Time: Thursday, March 02, 2017 17:07 - CONCLUSION: 1. Small acute or subacute cortical infarct of the left parietal lobe. 2. Small, faint area of nonspecific flair signal abnormality in the left frontal lobe periventricular white matter, nonspecific. No associated mass effect or abnormal enhancement. 3 month followup MRI of the brain recommended. 3. Mild chronic white matter changes. Adalid Perry MD Head CT 02/26/17 0000 Signed Impressions: Service Date/Time: Sunday, February 26, 2017 19:47 - CONCLUSION: No evidence of acute infarct, hemorrhage, mass or edema. Ken Sanchez MD Physical Exam CONSTITUTIONAL/GENERAL: This is an adequately nourished patient, in no apparent distress. Sedated, int'd on mech vent TUBES/LINES/DRAINS: SKIN: No jaundice, rashes, or lesions. Skin temperature appropriate. Not diaphoretic. multiple embolic lesions cw septic embolization involving L lower leg and both feet - evolving HEAD: Atraumatic. Normocephalic. EYES: Pupils small non reactive equal and round . No scleral icterus. No injection or drainage. Fundi not examined. CARDIOVASCULAR: Regular rate and rhythm without murmurs, gallops, or rubs. Mechanical heart sounds No JVD. Peripheral pulses symmetric. RESPIRATORY/CHEST: Symmetric, unlabored respirations. Scattered rhonchi to auscultation. Breath sounds equal bilaterally. GASTROINTESTINAL: Abdomen soft, non-tender, moderately distended. No hepato- splenomegaly, or palpable masses. No guarding. Bowel sounds present, hypoactive GENITOURINARY: Without palpable bladder distension. Watson catheter in place with clear yellow urine MUSCULOSKELETAL: Extremities without clubbing, 4+ edema. Anasarca LYMPHATICS: No palpable cervical or supraclavicular adenopathy. 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 cardiac injury from infx Critically ill , unstable Poor prognosis Not a surgical candidate ? PNA, clx negative New fever dc fluconazole cont oxacillin + gentamin +RIfampin cont ampicillin for Enterococci fu repeat blood clx monitor closely creatinint and LFTs (2-3x/week) Swati Spaulding MD Mar 03, 2017 21:05
[2017-03-03] MEDS: fentaNYL DRIP 250 ML IV SCH (22:05)
[2017-03-03 22:48] LABS: BICARBONATE 24.8 MEQ/L (21.0-32.0); MAGNESIUM 2.4 MG/DL (1.5-2.5); POTASSIUM 3.1 MEQ/L (3.5-5.1)
[2017-03-04] VITALS (25 sets, daily range): BP systolic 82–130; BP diastolic 55–88; PULSE 89–112; RESP 22–24; TEMP 98.5–100.7; O2SAT 94–100
[2017-03-04] MEDS: OXACILLIN INJ 2 GM in SODIUM CHLORIDE 0.9% INJ 100 ML IV SCH ×6 (00:38→22:01)
[2017-03-04] MEDS: CHLORHEXIDINE GLUCONATE 2 % 1 PACK (2 CLOTHS) TOP SCH (00:38)
[2017-03-04] MEDS: PROPOFOL 1000 MG/100 ML INJ 100 ML IV PRN ×3 (04:15→10:10)
[2017-03-04] MEDS: AMPICILLIN INJ 2,000 MG in SODIUM CHLORIDE 0.9% INJ 100 ML IV SCH ×5 (04:15→22:01)
[2017-03-04 05:09] LABS: BLOOD GAS BASE EXCESS -1.3 mmol/L (-2-2); BLOOD GAS CARBOXYHEMOGLOBIN 1.7 % (0-4); BLOOD GAS HCO3 22 mmol/L (22-26); BLOOD GAS O2 HGB SATURATION 95 % (90-100); BLOOD GAS OXYGEN CONTENT 11.5 Vol % (12.0-20.0); BLOOD GAS PCO2 33 mmHg (38-42); BLOOD GAS PO2 94 mmHg (61-120); BLOOD GAS TOTAL HGB 8.5 G/DL (12.0-16.0); CRITICAL VALUE NO; OXYGEN DEVICE VENTILATOR; TEMP CORR TO 98.6
[2017-03-04 05:10] LABS: DRAW SITE ALINE; FIO2 35 %; STAT NO; ULNAR PULSE PRESENT; VENT SETTINGS PRVC14/550/1.0/+5
[2017-03-04 05:44] LABS: HEMATOCRIT 28.9 % (35.0-46.0); MEAN CELL VOLUME 74.8 FL (80.0-100.0); MEAN CORPUSCULAR HEMOGLOBIN 23.7 PG (27.0-34.0); MEAN CORPUSCULAR HGB CONC 31.7 % (32.0-36.0); PLATELET COUNT 266 TH/MM3 (150-450); RED BLOOD COUNT 3.86 MIL/MM3 (4.00-5.30); RED CELL DISTRIBUTION WIDTH 16.7 % (11.6-17.2); REVIEW FLAG FINAL; WHITE BLOOD COUNT 10.7 TH/MM3 (4.0-11.0)
--- NOTE | 2017-03-04 05:44 | RADRPT ---
EXAM DATE/TIME: 03/04/2017 04:06 [facility] COMPARISON: CHEST SINGLE AP, March 03, 2017, 12:00. INDICATIONS : Shortness of breath, possible pulmonary disease. MEDICAL HISTORY : Endocarditis, pneumonia, poly substance abuse. renal failure, respiratory SURGICAL HISTORY : CABG. ENCOUNTER: Subsequent ACUITY: 2 months PAIN SCORE: Non-responsive. LOCATION: Bilateral chest FINDINGS: A single view of the chest demonstrates the lungs to be symmetrically aerated without evidence of mas s, infiltrate or effusion. The endotracheal tube, nasogastric tube and left subclavian central line a re all in good position. The cardiac silhouette is dilated. The cardiomediastinal contours are unre markable. Osseous structures are intact. CONCLUSION: Stable appearance of the chest with lungs grossly clear Karsten Crowder MD on March 04, 2017 at 5:42 Board Certified Radiologist. This report was verified electronically.
[2017-03-04] MEDS: INSULIN NovoLIN REGULAR SUPPLEMENTAL SCALE SQ SCH ×3 (06:00→18:00)
[2017-03-04 06:04] LABS: BICARBONATE 25.1 MEQ/L (21.0-32.0); MAGNESIUM 2.4 MG/DL (1.5-2.5); POTASSIUM 3.1 MEQ/L (3.5-5.1)
[2017-03-04 06:08] LABS: INDIRECT BILIRUBIN 0.2 MG/DL (0.0-0.8); TOTAL BILIRUBIN ADULT 0.5 MG/DL (0.2-1.0)
[2017-03-04] MEDS: fentaNYL DRIP 250 ML IV SCH ×2 (06:42→16:41)
[2017-03-04] MEDS: POTASSIUM CHLOR 40 MEQ PREMIX 100 ML IV PRN (06:48)
[2017-03-04] MEDS: ARTIFICIAL TEARS OPTH SOLN 15 ML BTL EACH EYE SCH ×3 (09:00→17:00)
[2017-03-04] MEDS: BUMETANIDE INJ 1 MG/4 ML VIAL IV PUSH SCH (09:28)
[2017-03-04] MEDS: DOCUSATE SODIUM 50 MG/SENNA 8.6 MG TAB PO SCH ×2 (09:28→22:02)
[2017-03-04] MEDS: MIDAZOLAM 100 MG/NS 100 ML DRIP Premix IV PRN ×2 (09:28→18:02)
[2017-03-04] MEDS: FAMOTIDINE 20 MG/2 ML VIAL IV PUSH SCH ×2 (09:28→22:02)
[2017-03-04] MEDS: HEPARIN SODIUM - SQ 10,000 UNITS/ML VIAL SQ SCH ×2 (09:29→22:02)
[2017-03-04] MEDS: SODIUM CHLORIDE 0.9% FLUSH 10 ML FLUSH IV FLUSH SCH ×2 (09:29→22:01)
[2017-03-04] MEDS: RIFAMPIN INJ 300 MG in SODIUM CHLORIDE 0.9% INJ 100 ML IV SCH ×2 (09:32→22:01)
[2017-03-04] MEDS ORDERED: PHARMACY ORDERED LAB ONE (11:45)
[2017-03-04] MEDS: GENTAMICIN/SOD CHL 80 MG/100 ML IV SCH (12:44)
--- NOTE | 2017-03-04 18:16 | HHI.CCPN ---
Subjective Remarks/Hospital Course Hospital Course: 36-year-old female who presents initially as a stroke alert. According to EMS report the patient has a history of fungal endocarditis with previous IVDA. EMS states that the patient is currently on hospice, however, they are unsure if the patient is a DNR. EMS states the patient apparently complained of a headache earlier today, was found lying on the floor and incontinent of stool at approximate, last seen normal at 6:45 PM. Therefore, EMS called a stroke alert in the field as the patient was aphasic and confused. Upon arrival the patient groans, moves all 4 extremities and withdraws all 4 extremities, but is unable to provide any information. She was intubated in the emergency department by ER attending for airway protection. subjective: 02/27: remains encephalopathic. Blood cultures growing Staph in 4/4 bottles. 02/28: Remains sedated/ encephalopathic, orally intubated on mechanical ventilation. 03/01: still in shock on vasopressors. grossly volume overloaded and intravascularly volume overloaded based on echo and clinically. needs aggressive diuresis, but still in shock. family made patient DNR last night, but want to continue aggressive therapies. still encephalopathic. no significant improvements. 03/02: seen and examined at around 06:45am. delayed note entry. remains encephalopathic. no significant changes. unlikely to survive hospital stay, no additional overall therapies. family wants aggressive treatment. diuresing on bumex drip. net 3.3L negative. still volume overloaded. 03/03: Tmax 102.8 This am patient went into SVT rhythm heart rate 190's. Cooling blanket placed, ice packs in place, metoprolol 5 mg IV push given, resolution heart rate mid 90s, MAP ranges 66-68. Ofirmev ordered. Bumex infusion discontinued secondary to elevation in creatinine. Chest x-ray pending. 03/04: Continues to be febrile, continues on cooling blanket. Propofol was discontinued secondary to hypotension. Today the patient continues on Versed and fentanyl infusions with the RASS -2. Patient currently GCS of 11 T, responsive. The patient tolerated CPAP trials for approximately 2.5 hours for the last 2 days. Objective Vital Signs Date Time Temp Pulse Resp B/P (MAP) Pulse Ox O2 Delivery O2 Flow Rate FiO2 03/04/17 16:12 100 35 03/04/17 16:00 103 03/04/17 16:00 98.9 24 130/82 (98) 115/75 (88) Intake and Output 03/04/17 03/04/17 03/05/17 08:00 16:00 00:00 Intake Total 1470 ml 500 ml 957 ml Output Total 1745 ml 1750 ml Balance -275 ml 500 ml -793 ml Result Diagram: 03/04/17 0341 03/04/17 1213 Other Results Microbiology Date/Time Source Procedure Growth Status 03/01/17 21:15 Sputum Endotracheal Gram Stain - Final Complete 03/01/17 21:15 Sputum Endotracheal Sputum Culture - Final RARE GROWTH NORMAL RESPIRATORY PATRICIA Complete Laboratory Tests Test 03/04/17 04:58 Blood Gas Puncture Site MERLINE Blood Gas Patient Temperature 98.6 Blood Gas HCO3 22 mmol/L (22-26) Blood Gas Base Excess -1.3 mmol/L (-2-2) Blood Gas Oxygen Saturation 95 % (90-100) Arterial Blood pH 7.44 (7.380-7.420) Arterial Blood Partial Pressure CO2 33 mmHg (38-42) Arterial Blood Partial Pressure O2 94 mmHg (61-120) Arterial Blood Oxygen Content 11.5 Vol % (12.0-20.0) Arterial Blood Carboxyhemoglobin 1.7 % (0-4) Arterial Blood Methemoglobin 1.0 % (0-2) Blood Gas Hemoglobin 8.5 G/DL (12.0-16.0) Oxygen Delivery Device VENTILATOR Blood Gas Ventilator Setting PRVC14/550/1.0/+5 Blood Gas Inspired Oxygen 35 % Imaging Last Impressions Chest X-Ray 03/04/17 0600 Signed Impressions: Service Date/Time: Saturday, March 04, 2017 04:06 - CONCLUSION: Stable appearance of the chest with lungs grossly clear Karsten Crowder MD Brain MRI 03/02/17 0000 Signed Impressions: Service Date/Time: Thursday, March 02, 2017 17:07 - CONCLUSION: 1. Small acute or subacute cortical infarct of the left parietal lobe. 2. Small, faint area of nonspecific flair signal abnormality in the left frontal lobe periventricular white matter, nonspecific. No associated mass effect or abnormal enhancement. 3 month followup MRI of the brain recommended. 3. Mild chronic white matter changes. Adalid Perry MD Head CT 02/26/17 0000 Signed Impressions: Service Date/Time: Sunday, February 26, 2017 19:47 - CONCLUSION: No evidence of acute infarct, hemorrhage, mass or edema. Ken Sanchez MD Last Impressions Chest X-Ray 02/27/17 0000 Signed Impressions: Service Date/Time: Monday, February 27, 2017 11:56 - CONCLUSION: Left subclavian central line in good position without pneumothorax. Ananth Ponce Jr., MD Head CT 02/26/17 0000 Signed Impressions: Service Date/Time: Sunday, February 26, 2017 19:47 - CONCLUSION: No evidence of acute infarct, hemorrhage, mass or edema. Ken Sanchez MD Objective Remarks GENERAL: This is obese ,critically ill middle-aged female, intubated but responsive to commands nodding head to yes and no questions SKIN: Warm and dry. Ecchymotic bruising noted on peripheral extremities HEAD: Normocephalic. EYES: No scleral icterus. No injection or drainage. NECK: trachea midline. No JVD CARDIOVASCULAR: tachycardic rate, regular rhythm. RESPIRATORY: Mechanical ventilation equal chest rise. PRVC, 35% fio2. No accessory muscle use. GASTROINTESTINAL: Abdomen soft, non-tender, nondistended. no guarding. MUSCULOSKELETAL: No cyanosis. 2+ peripheral edema. Generalized anasarca. Multiple petechiae and ecchymotic bruising secondary to most likely septic emboli NEURO EXAM: GCS 11T. Follows commands, moves extremities 4. Motor strength 5/ 5 bilateral upper and lower extremity. Cranial nerves II-XII grossly intact. 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 Critically ill. Poor prognosis given her ongoing drug abuse. Palliative Care following. still aggressive care for now, though DNR. Acute hypoxic and hypercarbic Respiratory failure - no SBT today given persistent encephalopathy - No weaning until neurologically and hemodynamically stable - wean fio2 for spo2 > 90% - hob at 30 degrees, vent bundle, nebs - Continue CPAP trials as clinically tolerated Acute Encephalopathy Acute meningitis, possible bacterial - LP with elevated protein, and low glucose relative to serum glucose. - CT head negative -MRI-small acute and subacute cortical infarct of left parietal lobe - Neuro checks per unit protocol -Ofirmev 1 g every 6 hours when necessary temp greater than 101.0 x 2 days -Apply cooling blanket for temp greater than 101.0 -GCS 11 T-now following commands SVT - Metoprolol 2.5 mg every 6 hours when necessary heart rate greater than 100 bpm History of fungal endocarditis Staph Bacteremia Tricuspid valve infective endocarditis - History of IVDA - Broad-spectrum antibiotic and antifungal - Infectious disease following, Dr. Spaulding Mixed Septic/cardiogenic Shock Acute congestive heart failure secondary to valvulopathy Tricuspid Regurgitation - Discontinued Bumex drip 03/03 - Monitor CVP, vasopressor support if indicated Acute Kidney Injury -secondary to shock - Strict I and O's - pedroza catheter Acute Protein calorie malnutrition- severe - secondary to long-standing IVDA and endocarditis - continue TF Jevity 1.5 currently at goal 55 cc/hour-minimal residuals DVT GI prophylaxis - Teds SCDs - Subcutaneous heparin - Pepcid Dispo: Discussed with TIE TAMPER at bedside. This patient remains critically ill with one or more organ systems which are or may become a threat to life. I have spent in excess of 30 minutes discontinuously in the care and management of this patient. This time is exclusive of procedures, and includes, but is not limited to, evaluation of the patient, review of the medical record, discussions with family, consultants, nursing staff, or respiratory therapy, and documentation in the medical record. Physician Surekha Frazier MD Mar 04, 2017 18:16
[2017-03-04] MEDS: ACETAMINOPHEN 1000 MG/100 ML VIAL IV PRN (23:22)
[2017-03-05] VITALS (23 sets, daily range): BP systolic 74–150; BP diastolic 58–81; PULSE 71–127; RESP 16–38; TEMP 98–102.2; O2SAT 96–100
[2017-03-05] MEDS: OXACILLIN INJ 2 GM in SODIUM CHLORIDE 0.9% INJ 100 ML IV SCH ×6 (00:04→21:44)
[2017-03-05] MEDS: GENTAMICIN/SOD CHL 80 MG/100 ML IV SCH ×2 (00:04→11:25)
[2017-03-05] MEDS: AMPICILLIN INJ 2,000 MG in SODIUM CHLORIDE 0.9% INJ 100 ML IV SCH ×6 (00:05→21:44)
[2017-03-05] MEDS: CHLORHEXIDINE GLUCONATE 2 % 1 PACK (2 CLOTHS) TOP SCH (00:07)
[2017-03-05] MEDS: fentaNYL DRIP 250 ML IV SCH ×2 (01:17→12:20)
--- NOTE | 2017-03-05 05:04 | RADRPT ---
EXAM DATE/TIME: 03/05/2017 03:28 [facility] COMPARISON: CHEST SINGLE AP, March 04, 2017, 4:06. INDICATIONS : Shortness of breath, possible pulmonary disease. MEDICAL HISTORY : Endocarditis, pneumonia, poly substance abuse. renal failure, respiratory SURGICAL HISTORY : CABG. ENCOUNTER: Subsequent ACUITY: 2 months PAIN SCORE: Non-responsive. LOCATION: Bilateral chest FINDINGS: Portable AP view of the chest demonstrates a normal-sized cardiac silhouette in this patient post med milind sternotomy. ETT, NG tube, and left subclavian central line remain present. Lungs are underinflate d. No effusion, consolidation, or pneumothorax is visualized. CONCLUSION: Stable chest x-ray with underinflation. No acute finding is identified. Adalid Galo MD on March 05, 2017 at 5:02 Board Certified Radiologist. This report was verified electronically.
[2017-03-05 05:09] LABS: BLOOD GAS BASE EXCESS -1.6 mmol/L (-2-2); BLOOD GAS CARBOXYHEMOGLOBIN 1.5 % (0-4); BLOOD GAS HCO3 23 mmol/L (22-26); BLOOD GAS METHEMOGLOBIN 0.9 % (0-2); BLOOD GAS O2 HGB SATURATION 97 % (90-100); BLOOD GAS OXYGEN CONTENT 14.4 Vol % (12.0-20.0); BLOOD GAS PCO2 38 mmHg (38-42); BLOOD GAS PO2 159 mmHg (61-120); BLOOD GAS TOTAL HGB 10.4 G/DL (12.0-16.0); CRITICAL VALUE NO; FIO2 35 %; OXYGEN DEVICE VENTILATOR; TEMP CORR TO 98.6; VENT SETTINGS AC14/550/+5
[2017-03-05 05:10] LABS: DRAW SITE ALINE; STAT NO; ULNAR PULSE PRESENT
[2017-03-05 05:14] LABS: HEMATOCRIT 26.8 % (35.0-46.0); MEAN CELL VOLUME 75.7 FL (80.0-100.0); MEAN CORPUSCULAR HEMOGLOBIN 24.2 PG (27.0-34.0); MEAN CORPUSCULAR HGB CONC 31.9 % (32.0-36.0); PLATELET COUNT 311 TH/MM3 (150-450); RED BLOOD COUNT 3.53 MIL/MM3 (4.00-5.30); RED CELL DISTRIBUTION WIDTH 16.5 % (11.6-17.2); REVIEW FLAG FINAL
[2017-03-05 05:40] LABS: BICARBONATE 26.6 MEQ/L (21.0-32.0); MAGNESIUM 2.6 MG/DL (1.5-2.5); POTASSIUM 3.5 MEQ/L (3.5-5.1)
[2017-03-05] MEDS: INSULIN NovoLIN REGULAR SUPPLEMENTAL SCALE SQ SCH ×4 (06:00→18:00)
[2017-03-05] MEDS: MIDAZOLAM 100 MG/NS 100 ML DRIP Premix IV PRN ×2 (06:19→17:14)
[2017-03-05] MEDS: HEPARIN SODIUM - SQ 10,000 UNITS/ML VIAL SQ SCH ×2 (08:19→21:45)
[2017-03-05] MEDS: BUMETANIDE INJ 1 MG/4 ML VIAL IV PUSH SCH (08:20)
[2017-03-05] MEDS: FAMOTIDINE 20 MG/2 ML VIAL IV PUSH SCH ×2 (08:20→21:45)
[2017-03-05] MEDS: RIFAMPIN INJ 300 MG in SODIUM CHLORIDE 0.9% INJ 100 ML IV SCH ×2 (08:20→21:45)
[2017-03-05] MEDS: SODIUM CHLORIDE 0.9% FLUSH 10 ML FLUSH IV FLUSH SCH ×2 (08:20→21:45)
[2017-03-05] MEDS: ARTIFICIAL TEARS OPTH SOLN 15 ML BTL EACH EYE SCH ×3 (08:21→17:15)
[2017-03-05] MEDS: DOCUSATE SODIUM 50 MG/SENNA 8.6 MG TAB PO SCH ×2 (08:21→21:00)
--- NOTE | 2017-03-05 10:57 | HHI.CCPN ---
Subjective Remarks/Hospital Course Hospital Course: 36-year-old female who presents initially as a stroke alert. According to EMS report the patient has a history of fungal endocarditis with previous IVDA. EMS states that the patient is currently on hospice, however, they are unsure if the patient is a DNR. EMS states the patient apparently complained of a headache earlier today, was found lying on the floor and incontinent of stool at approximate, last seen normal at 6:45 PM. Therefore, EMS called a stroke alert in the field as the patient was aphasic and confused. Upon arrival the patient groans, moves all 4 extremities and withdraws all 4 extremities, but is unable to provide any information. She was intubated in the emergency department by ER attending for airway protection. 02/27: remains encephalopathic. Blood cultures growing Staph in 4/4 bottles. 02/28: Remains sedated/ encephalopathic, orally intubated on mechanical ventilation. 03/01: still in shock on vasopressors. grossly volume overloaded and intravascularly volume overloaded based on echo and clinically. needs aggressive diuresis, but still in shock. family made patient DNR last night, but want to continue aggressive therapies. still encephalopathic. no significant improvements. 03/02: seen and examined at around 06:45am. delayed note entry. remains encephalopathic. no significant changes. unlikely to survive hospital stay, no additional overall therapies. family wants aggressive treatment. diuresing on bumex drip. net 3.3L negative. still volume overloaded. 03/03: Tmax 102.8 This am patient went into SVT rhythm heart rate 190's. Cooling blanket placed, ice packs in place, metoprolol 5 mg IV push given, resolution heart rate mid 90s, MAP ranges 66-68. Ofirmev ordered. Bumex infusion discontinued secondary to elevation in creatinine. Chest x-ray pending. 03/04: Continues to be febrile, continues on cooling blanket. Propofol was discontinued secondary to hypotension. Today the patient continues on Versed and fentanyl infusions with the RASS -2. Patient currently GCS of 11 T, responsive. The patient tolerated CPAP trials for approximately 2.5 hours for the last 2 days. Subjective: 03/05: Somewhat agitated this AM. Remains in sinus tachycardia. On PSV trials 1.5 hours today. Tolerating tube feeding. Tmax 101.4. Objective Vital Signs Date Time Temp Pulse Resp B/P (MAP) Pulse Ox O2 Delivery O2 Flow Rate FiO2 03/05/17 08:00 101.4 120 24 150/79 (102) 100 125/81 (96) 03/05/17 08:00 35 Intake and Output 03/05/17 03/05/17 03/06/17 08:00 16:00 00:00 Intake Total 1003.7 ml Output Total 1100 ml Balance -96.3 ml Result Diagram: 03/05/17 0504 03/05/17 0504 Other Results Microbiology Date/Time Source Procedure Growth Status 03/01/17 09:38 Blood Peripheral Aerobic Blood Culture - Preliminary NO GROWTH IN 3 DAYS Resulted 03/01/17 09:38 Blood Peripheral Anaerobic Blood Culture - Preliminary NO GROWTH IN 3 DAYS Resulted 02/26/17 22:00 Cerebral Spinal Fluid Lumbar Puncture Fungal Smear - Final NO FUNGAL ELEMENTS SEEN. Resulted 02/26/17 22:00 Cerebral Spinal Fluid Lumbar Puncture Fungal Culture Pending Resulted 03/01/17 21:15 Sputum Endotracheal Gram Stain - Final Complete 03/01/17 21:15 Sputum Endotracheal Sputum Culture - Final RARE GROWTH NORMAL RESPIRATORY PATRICIA Complete Imaging Last Impressions Chest X-Ray 03/05/17 0600 Signed Impressions: Service Date/Time: Sunday, March 05, 2017 03:28 - CONCLUSION: Stable chest x-ray with underinflation. No acute finding is identified. Adalid Galo MD Brain MRI 03/02/17 0000 Signed Impressions: Service Date/Time: Thursday, March 02, 2017 17:07 - CONCLUSION: 1. Small acute or subacute cortical infarct of the left parietal lobe. 2. Small, faint area of nonspecific flair signal abnormality in the left frontal lobe periventricular white matter, nonspecific. No associated mass effect or abnormal enhancement. 3 month followup MRI of the brain recommended. 3. Mild chronic white matter changes. Adalid Perry MD Head CT 02/26/17 0000 Signed Impressions: Service Date/Time: Sunday, February 26, 2017 19:47 - CONCLUSION: No evidence of acute infarct, hemorrhage, mass or edema. Ken Sanchez MD Objective Remarks GENERAL: 36-year-old female, critically ill currently resting in bed will strictly intubated SKIN: Warm and dry. Livedo reticularis noted on peripheral extremities HEAD: Normocephalic. EYES: No scleral icterus. No injection or drainage. NECK: trachea midline. No JVD CARDIOVASCULAR: Tachycardic, RR. S1, S2 no S4. Without murmur RESPIRATORY: Essentially clear to auscultation without wheezes rales or rhonchi GASTROINTESTINAL: Abdomen soft, non-tender, nondistended. no guarding. MUSCULOSKELETAL: 1 + peripheral edema. Generalized anasarca. Multiple petechiae and ecchymotic bruising secondary to most likely septic emboli NEURO EXAM: GCS 11T. Follows commands, moves extremities 4. Motor strength 5/ 5 bilateral upper and lower extremity. Cranial nerves II-XII grossly intact. A/P Assessment and Plan Neuro/Psych Acute Encephalopathy Acute meningitis, possible bacterial Left parietal/frontal CVA Patient is currently on Versed drip at 10 mg an hour fentanyl drip at 250 mcg an hour for sedation/analgesia while intubated Goal of RA SS -2 Daily sedation vacation - LP with elevated protein, and low glucose relative to serum glucose. - CT head negative -MRI-small acute and subacute cortical infarct of left parietal lobe - Neuro checks per unit protocol Acetaminophen for fever Evaluated by neurology Resp: Acute hypoxic and hypercarbic Respiratory failure ACV 14/555/35 Ventilator bundle As needed albuterol therapy Spontaneous breathing trials daily Cardiac SVT Sinus tachycardia Mixed Septic/cardiogenic Shock Acute congestive heart failure secondary to valvulopathy Tricuspid Regurgitation - Metoprolol 2.5 mg every 6 hours when necessary heart rate greater than 100 bpm Echocardiogram 02/22 revealed EF 25-30%. PAP 34 mmHg. Currently off all vasopressors. ID: History of fungal endocarditis Staph Bacteremia Tricuspid valve infective endocarditis - History of IVDA - Broad-spectrum antibiotic with ampicillin, gentamicin and rifampin - Infectious disease following, Dr. Spaulding RENAL: Acute Kidney Injury - resolved -secondary to shock - Strict I and O's - pedroza catheter GI" Acute Protein calorie malnutrition- severe - secondary to long-standing IVDA and endocarditis - continue TF Jevity 1.5 currently at goal 55 cc/hour-minimal residuals Famotidine for GI prophylaxis Docusate sodium/senna for bowel regimen HEME: Normocytic anemia Monitor CBC daily. Follow trends Endo Hyperglycemia critical illness Sliding scale insulin to maintain euglycemia DVT GI prophylaxis - Teds SCDs - Subcutaneous heparin -Famotidine Dispo: Discussed with TOBACCO FARMWORKER and significant other at bedside. This patient remains critically ill with one or more organ systems which are or may become a threat to life. I have spent in excess of 30 minutes discontinuously in the care and management of this patient. This time is exclusive of procedures, and includes, but is not limited to, evaluation of the patient, review of the medical record, discussions with family, consultants, nursing staff, or respiratory therapy, and documentation in the medical record. Francis Dominguez MD Mar 05, 2017 10:57
[2017-03-05] MEDS: DEXMEDETOMIDINE INJ 200 MCG in SODIUM CHLORIDE 0.9% INJ 50 ML IV PRN ×3 (11:19→23:11)
[2017-03-05] MEDS: ACETAMINOPHEN 1000 MG/100 ML VIAL IV PRN (12:20)
--- NOTE | 2017-03-05 14:10 | HHI.HCPN ---
Reason for visit a. To assist with evaluation and management of symptoms including: dyspnea. b. To assist medical decision maker(s) with: better understanding of current medical conditions; weighing benefits/burdens of medical treatment options; making medical treatment decisions. . Subjective/Interval History Patient seen and examined in ICU. Also present Tamara Ponce LCSW. Discussed with Dr. Dominguez and nurse. Boyfriend, Dc at bedside. Questions answered. [facility] Tolerating brief CPAP trials 1-[address] Dominguez, he hopes to be able to wean her from vent later this week. Patient is awake and alert, nods yes/no to some questions. Off pressors. Tmax 101.3. WBC 8.0, hemoglobin 8.5, hematocrit 26.8, platelets 311. Creatinine 1.24. Chest xray stable with underinflation. MRI brain done 03/02/17 revealed small acute or subacute cortical infarct of the left parietal lobe, small faint nonspecific flair abnormality, no mass effect or abnormal enhancement, mild chrnic white matter changes. . Family/friend interactions Left message for motherFany to provide medical update, awaiting return call. . Advance Directives Living Will: Never completed Health Care Surrogate: Never completed Durable Power of Outcomes Manager: Never completed Advance Directive Specifics Health Care Surrogate(s): No known written advanced directives, family is going to try to find HCS paperwork they think pt previously completed. Patient a single. Children are juvenile. If no written advanced directives, according to [place] statutes health care proxy decision-making falls to a parent. . Significant change in goals: NO CODE. Continue aggressive care short of NO CODE. . Objective Vital Signs Date Time Temp Pulse Resp B/P (MAP) Pulse Ox O2 Delivery O2 Flow Rate FiO2 03/05/17 12:16 99 40 03/05/17 11:00 100 40 03/05/17 10:00 127 03/05/17 08:00 101.4 120 24 150/79 (102) 100 125/81 (96) 03/05/17 08:00 35 03/05/17 08:00 107 112/70 (84) 03/05/17 08:00 120 03/05/17 07:45 100 35 03/05/17 06:00 96 03/05/17 06:00 96 115/73 (87) 100 03/05/17 05:00 92 116/77 (90) 100 03/05/17 04:30 100 35 03/05/17 04:00 98.6 93 107/67 (80) 99 84/66 (72) 03/05/17 04:00 93 03/05/17 04:00 35 03/05/17 03:00 96 92/65 (74) 97 03/05/17 02:00 90 03/05/17 02:00 90 84/66 (72) 97 03/05/17 01:02 98 35 03/05/17 01:00 96 74/62 (66) 96 03/05/17 00:07 20 03/05/17 00:00 106 03/05/17 00:00 35 03/05/17 00:00 106 78/62 (67) 03/05/17 00:00 100.2 106 107/64 (78) 97 78/62 (67) 03/04/17 23:00 112 90/84 (86) 100 03/04/17 22:00 101.1 109 82/77 (79) 100 03/04/17 22:00 109 03/04/17 21:00 100.4 106 87/77 (80) 100 03/04/17 20:00 35 03/04/17 20:00 99.4 106 112/74 (87) 100 100/69 (79) 03/04/17 20:00 106 100/69 (79) 03/04/17 20:00 106 03/04/17 19:57 100 35 03/04/17 19:00 106 90/88 (89) 03/04/17 18:00 109 03/04/17 16:12 100 35 03/04/17 16:00 103 03/04/17 16:00 35 03/04/17 16:00 98.9 103 24 130/82 (98) 100 115/75 (88) 03/04/17 14:00 100 Intake & Output 03/05/17 03/05/17 07:00 19:00 Intake Total 1104.7 ml 500 ml Output Total 1100 ml Balance 4.7 ml 500 ml IV Total 504.7 ml 500 ml Tube Feeding 600 ml Output Urine Total 1000 ml Stool Total 100 ml Physical Exam CONSTITUTIONAL/GENERAL: This is an adequately nourished patient, sedated on mechanical ventilation. TUBES/LINES/DRAINS: ETT, NG, left subclavian central line, PIV right AC, Watson, SCDs. SKIN: Febrile. Multiple purple lesions bilateral feet. EYES: No scleral icterus or injection. ENT: Hearing appears grossly normal. Nose with NG tube right nare. Throat difficult to visualize due to ETT. CARDIOVASCULAR: tachycardic, regular rhythm. RESPIRATORY/CHEST: Symmetric, unlabored respirations on vent. lungs clear. GASTROINTESTINAL: Abdomen soft, mild distended. Bowel sounds hypoactive. GENITOURINARY: Without palpable bladder distension. Watson catheter in place. MUSCULOSKELETAL: Extremities without clubbing, mild cyanosis of toes, 2+ edema. NEUROLOGICAL: Awake and alert, tracking. Nods yes/no to questions. Follows simple commands. PSYCHIATRIC: denies anxiety. . Diagnostic Tests Laboratory Laboratory Tests Test 03/02/17 18:14 03/02/17 23:19 03/03/17 03:17 03/03/17 11:00 Blood Urea Nitrogen 25 MG/DL (7-18) 29 MG/DL (7-18) 33 MG/DL (7-18) Creatinine 1.41 MG/DL (0.50-1.00) 1.46 MG/DL (0.50-1.00) 1.58 MG/DL (0.50-1.00) Random Glucose 107 MG/DL (74-106) 133 MG/DL (74-106) 141 MG/DL (74-106) Calcium Level 8.1 MG/DL (8.5-10.1) 8.0 MG/DL (8.5-10.1) 8.2 MG/DL (8.5-10.1) Magnesium Level 2.2 MG/DL (1.5-2.5) 2.1 MG/DL (1.5-2.5) 2.1 MG/DL (1.5-2.5) Sodium Level 141 MEQ/L (136-145) 141 MEQ/L (136-145) 143 MEQ/L (136-145) Potassium Level 3.2 MEQ/L (3.5-5.1) 3.3 MEQ/L (3.5-5.1) 3.4 MEQ/L (3.5-5.1) Chloride Level 104 MEQ/L (98-107) 105 MEQ/L (98-107) 104 MEQ/L (98-107) Carbon Dioxide Level 24.9 MEQ/L (21.0-32.0) 25.3 MEQ/L (21.0-32.0) 26.4 MEQ/L (21.0-32.0) Anion Gap 12 MEQ/L (5-15) 11 MEQ/L (5-15) 13 MEQ/L (5-15) Estimat Glomerular Filtration Rate 42 ML/MIN (>89) 41 ML/MIN (>89) 37 ML/MIN (>89) White Blood Count 12.3 TH/MM3 (4.0-11.0) Red Blood Count 4.23 MIL/MM3 (4.00-5.30) Hemoglobin 10.2 GM/DL (11.6-15.3) Hematocrit 31.2 % (35.0-46.0) Mean Corpuscular Volume 73.8 FL (80.0-100.0) Mean Corpuscular Hemoglobin 24.1 PG (27.0-34.0) Mean Corpuscular Hemoglobin Concent 32.7 % (32.0-36.0) Red Cell Distribution Width 16.3 % (11.6-17.2) Platelet Count 217 TH/MM3 (150-450) Mean Platelet Volume 9.0 FL (7.0-11.0) Blood Gas Puncture Site ART LINE Blood Gas Patient Temperature 98.6 Blood Gas HCO3 24 mmol/L (22-26) Blood Gas Base Excess 0.2 mmol/L (-2-2) Blood Gas Oxygen Saturation 96 % (90-100) Arterial Blood pH 7.45 (7.380-7.420) Arterial Blood Partial Pressure CO2 35 mmHg (38-42) Arterial Blood Partial Pressure O2 128 mmHg (61-120) Arterial Blood Oxygen Content 14.5 Vol % (12.0-20.0) Arterial Blood Carboxyhemoglobin 1.5 % (0-4) Arterial Blood Methemoglobin 1.1 % (0-2) Blood Gas Hemoglobin 10.6 G/DL (12.0-16.0) Oxygen Delivery Device VENTILATOR Blood Gas Ventilator Setting Blood Gas Inspired Oxygen 35 % Test 03/03/17 21:05 03/04/17 03:41 03/04/17 04:58 03/04/17 12:13 Blood Urea Nitrogen 39 MG/DL (7-18) 38 MG/DL (7-18) Creatinine 1.46 MG/DL (0.50-1.00) 1.36 MG/DL (0.50-1.00) Random Glucose 147 MG/DL (74-106) 128 MG/DL (74-106) Calcium Level 8.0 MG/DL (8.5-10.1) 7.9 MG/DL (8.5-10.1) Magnesium Level 2.4 MG/DL (1.5-2.5) 2.4 MG/DL (1.5-2.5) Sodium Level 145 MEQ/L (136-145) 146 MEQ/L (136-145) Potassium Level 3.1 MEQ/L (3.5-5.1) 3.1 MEQ/L (3.5-5.1) 3.7 MEQ/L (3.5-5.1) Chloride Level 108 MEQ/L (98-107) 110 MEQ/L (98-107) Carbon Dioxide Level 24.8 MEQ/L (21.0-32.0) 25.1 MEQ/L (21.0-32.0) Anion Gap 12 MEQ/L (5-15) 11 MEQ/L (5-15) Estimat Glomerular Filtration Rate 41 ML/MIN (>89) 44 ML/MIN (>89) White Blood Count 10.7 TH/MM3 (4.0-11.0) Red Blood Count 3.86 MIL/MM3 (4.00-5.30) Hemoglobin 9.2 GM/DL (11.6-15.3) Hematocrit 28.9 % (35.0-46.0) Mean Corpuscular Volume 74.8 FL (80.0-100.0) Mean Corpuscular Hemoglobin 23.7 PG (27.0-34.0) Mean Corpuscular Hemoglobin Concent 31.7 % (32.0-36.0) Red Cell Distribution Width 16.7 % (11.6-17.2) Platelet Count 266 TH/MM3 (150-450) Mean Platelet Volume 8.7 FL (7.0-11.0) Total Protein 7.3 GM/DL (6.4-8.2) Albumin 2.3 GM/DL (3.4-5.0) Phosphorus Level 4.9 MG/DL (2.5-4.9) Alkaline Phosphatase 77 U/L (45-117) Aspartate Amino Transf (AST/SGOT) 18 U/L (15-37) Alanine Aminotransferase (ALT/SGPT) 11 U/L (10-53) Total Bilirubin 0.5 MG/DL (0.2-1.0) Direct Bilirubin 0.3 MG/DL (0.0-0.2) Indirect Bilirubin 0.2 MG/DL (0.0-0.8) Blood Gas Puncture Site MERLINE Blood Gas Patient Temperature 98.6 Blood Gas HCO3 22 mmol/L (22-26) Blood Gas Base Excess -1.3 mmol/L (-2-2) Blood Gas Oxygen Saturation 95 % (90-100) Arterial Blood pH 7.44 (7.380-7.420) Arterial Blood Partial Pressure CO2 33 mmHg (38-42) Arterial Blood Partial Pressure O2 94 mmHg (61-120) Arterial Blood Oxygen Content 11.5 Vol % (12.0-20.0) Arterial Blood Carboxyhemoglobin 1.7 % (0-4) Arterial Blood Methemoglobin 1.0 % (0-2) Blood Gas Hemoglobin 8.5 G/DL (12.0-16.0) Oxygen Delivery Device VENTILATOR Blood Gas Ventilator Setting PRVC14/550/1.0/+5 Blood Gas Inspired Oxygen 35 % Gentamicin Level Trough 0.8 MCG/ML (0.0-2.0) Test 03/05/17 04:50 03/05/17 05:04 Blood Gas Puncture Site MERLINE Blood Gas Patient Temperature 98.6 Blood Gas HCO3 23 mmol/L (22-26) Blood Gas Base Excess -1.6 mmol/L (-2-2) Blood Gas Oxygen Saturation 97 % (90-100) Arterial Blood pH 7.39 (7.380-7.420) Arterial Blood Partial Pressure CO2 38 mmHg (38-42) Arterial Blood Partial Pressure O2 159 mmHg (61-120) Arterial Blood Oxygen Content 14.4 Vol % (12.0-20.0) Arterial Blood Carboxyhemoglobin 1.5 % (0-4) Arterial Blood Methemoglobin 0.9 % (0-2) Blood Gas Hemoglobin 10.4 G/DL (12.0-16.0) Oxygen Delivery Device VENTILATOR Blood Gas Ventilator Setting AC14/550/+5 Blood Gas Inspired Oxygen 35 % White Blood Count 8.0 TH/MM3 (4.0-11.0) Red Blood Count 3.53 MIL/MM3 (4.00-5.30) Hemoglobin 8.5 GM/DL (11.6-15.3) Hematocrit 26.8 % (35.0-46.0) Mean Corpuscular Volume 75.7 FL (80.0-100.0) Mean Corpuscular Hemoglobin 24.2 PG (27.0-34.0) Mean Corpuscular Hemoglobin Concent 31.9 % (32.0-36.0) Red Cell Distribution Width 16.5 % (11.6-17.2) Platelet Count 311 TH/MM3 (150-450) Mean Platelet Volume 7.8 FL (7.0-11.0) Blood Urea Nitrogen 33 MG/DL (7-18) Creatinine 1.24 MG/DL (0.50-1.00) Random Glucose 134 MG/DL (74-106) Calcium Level 8.6 MG/DL (8.5-10.1) Phosphorus Level 4.8 MG/DL (2.5-4.9) Magnesium Level 2.6 MG/DL (1.5-2.5) Sodium Level 151 MEQ/L (136-145) Potassium Level 3.5 MEQ/L (3.5-5.1) Chloride Level 117 MEQ/L (98-107) Carbon Dioxide Level 26.6 MEQ/L (21.0-32.0) Anion Gap 7 MEQ/L (5-15) Estimat Glomerular Filtration Rate 49 ML/MIN (>89) Result Diagram: 03/05/17 0504 03/05/17 0504 Microbiology Microbiology Date/Time Source Procedure Growth Status 03/01/17 09:38 Blood Peripheral Aerobic Blood Culture - Preliminary NO GROWTH IN 4 DAYS Resulted 03/01/17 09:38 Blood Peripheral Anaerobic Blood Culture - Preliminary NO GROWTH IN 4 DAYS Resulted 02/26/17 22:00 Cerebral Spinal Fluid Lumbar Puncture Fungal Smear - Final NO FUNGAL ELEMENTS SEEN. Resulted 02/26/17 22:00 Cerebral Spinal Fluid Lumbar Puncture Fungal Culture - Preliminary NO GROWTH IN 1 WEEK Resulted 03/01/17 21:15 Sputum Endotracheal Gram Stain - Final Complete 03/01/17 21:15 Sputum Endotracheal Sputum Culture - Final RARE GROWTH NORMAL RESPIRATORY PATRICIA Complete Imaging Last Impressions Chest X-Ray 03/05/17 0600 Signed Impressions: Service Date/Time: Sunday, March 05, 2017 03:28 - CONCLUSION: Stable chest x-ray with underinflation. No acute finding is identified. Adalid Galo MD Brain MRI 03/02/17 0000 Signed Impressions: Service Date/Time: Thursday, March 02, 2017 17:07 - CONCLUSION: 1. Small acute or subacute cortical infarct of the left parietal lobe. 2. Small, faint area of nonspecific flair signal abnormality in the left frontal lobe periventricular white matter, nonspecific. No associated mass effect or abnormal enhancement. 3 month followup MRI of the brain recommended. 3. Mild chronic white matter changes. Adalid Perry MD Head CT 02/26/17 0000 Signed Impressions: Service Date/Time: Sunday, February 26, 2017 19:47 - CONCLUSION: No evidence of acute infarct, hemorrhage, mass or edema. Ken Sanchez MD Procedures * 02/26/17 - left subclavian central placement. * 02/26/17 - lumbar puncture * 02/26/17 - Intubated. . Assessment and Plan Disease Oriented Problem List: (1) Protein-calorie malnutrition, severe (2) Elevated troponin (3) Meningitis (4) Encephalopathy (5) Bacterial endocarditis (6) Polysubstance abuse (7) Sepsis (8) Acute kidney injury Symptom Scale: (1) Pain 0-10 Scale: Unable to quantify (2) Dyspnea 0-10 Scale: Unable to quantify (3) Encephalopathy 0-10 Scale: Unable to quantify Pertinent Non-Medical Issues Psychosocial: single. 2 juvenile children. Supported by mother, stepfather and boyfriend. Spiritual: Unknown. Legal: patient is incapacitated. No written advanced directives. Patient a single. Children are juvenile. According to [place] statutes health care proxy decision-making falls to a parent. Ethical issues impacting care: No known concerns at this time. . Important Contacts * Fany Nielsen, mother: [phone] * Karstengavin Nielsen, stepfather: [phone] . Prognosis Prognosis poor. Code Status: No Code Plan * Decision Maker: patient is incapacitated. No written advanced directives. Patient a single. Children are juvenile. According to [place] statutes health care proxy decision-making falls to a parent. * NO CODE * 03/05/17 - Left message to provide udpate to mother, Fany, awaiting return call. * SYMPTOMS: Pain: No obvious signs of pain, denies today. Potential sources include endocarditis, bedbound status, tubes etc. Patient with likely high tolerance given history of IV drug use, will monitor effective medications. Dyspnea: remains sedated on mechanical ventilation. No new medication recommendations at this time. * Palliative care will continue to follow throughout hospital course to assist with symptom management and clarification of goals as needed. . Attestation To help prompt me to consider important information that might be impacting today's encounter and assessment, information from prior notes written by myself or my colleagues may have been "brought forward" into today's note. My signature on this note, however, is an attestation that I personally performed the exam, history, and/or decision-making noted today, and, unless otherwise indicated, the interactions with patient, family, and staff as well as the review of records all occurred today. I also attest that the listed assessment and stated plan reflect my best clinical judgment today based on the combination of historical information, prior notes, and today's exam/ interactions. When time spent is documented, it refers only to time spent today by the signer, or if indicated, combined time spent today by collaborating physician/nurse practitioner. Shanice García Mar 05, 2017 14:10
--- NOTE | 2017-03-05 14:22 | HHI.IDPN ---
Subjective Subjective Remarks cont to have fevers in to 89 F faile d CPAP with tachypnea Minimal ETT secretions creatinine is improving Antibiotics ampicillin oxacillin gent rifampin Allergies: Coded Allergies: No Known Allergies (Verified , 09/01/15) Objective . Vital Signs Date Time Temp Pulse Resp B/P (MAP) Pulse Ox O2 Delivery O2 Flow Rate FiO2 03/05/17 12:16 99 40 03/05/17 11:00 100 40 03/05/17 10:00 127 03/05/17 08:00 101.4 120 24 150/79 (102) 100 125/81 (96) 03/05/17 08:00 35 03/05/17 08:00 107 112/70 (84) 03/05/17 08:00 120 03/05/17 07:45 100 35 03/05/17 06:00 96 03/05/17 06:00 96 115/73 (87) 100 03/05/17 05:00 92 116/77 (90) 100 03/05/17 04:30 100 35 03/05/17 04:00 98.6 93 107/67 (80) 99 84/66 (72) 03/05/17 04:00 93 03/05/17 04:00 35 03/05/17 03:00 96 92/65 (74) 97 03/05/17 02:00 90 03/05/17 02:00 90 84/66 (72) 97 03/05/17 01:02 98 35 03/05/17 01:00 96 74/62 (66) 96 03/05/17 00:07 20 03/05/17 00:00 106 03/05/17 00:00 35 03/05/17 00:00 106 78/62 (67) 03/05/17 00:00 100.2 106 107/64 (78) 97 78/62 (67) 03/04/17 23:00 112 90/84 (86) 100 03/04/17 22:00 101.1 109 82/77 (79) 100 03/04/17 22:00 109 03/04/17 21:00 100.4 106 87/77 (80) 100 03/04/17 20:00 35 03/04/17 20:00 99.4 106 112/74 (87) 100 100/69 (79) 03/04/17 20:00 106 100/69 (79) 03/04/17 20:00 106 03/04/17 19:57 100 35 03/04/17 19:00 106 90/88 (89) 03/04/17 18:00 109 03/04/17 16:12 100 35 03/04/17 16:00 103 03/04/17 16:00 35 03/04/17 16:00 98.9 103 24 130/82 (98) 100 115/75 (88) 03/05/17 03/05/17 03/06/17 15:00 23:00 07:00 Intake Total 500 ml Balance 500 ml IV Total 500 ml . Laboratory Tests Test 03/04/17 03:41 03/05/17 05:04 White Blood Count 10.7 TH/MM3 8.0 TH/MM3 Red Blood Count 3.86 MIL/MM3 3.53 MIL/MM3 Hemoglobin 9.2 GM/DL 8.5 GM/DL Hematocrit 28.9 % 26.8 % Mean Corpuscular Volume 74.8 FL 75.7 FL Mean Corpuscular Hemoglobin 23.7 PG 24.2 PG Mean Corpuscular Hemoglobin Concent 31.7 % 31.9 % Red Cell Distribution Width 16.7 % 16.5 % Platelet Count 266 TH/MM3 311 TH/MM3 Mean Platelet Volume 8.7 FL 7.8 FL Laboratory Tests Test 03/03/17 21:05 03/04/17 03:41 03/04/17 12:13 03/05/17 05:04 Blood Urea Nitrogen 39 MG/DL 38 MG/DL 33 MG/DL Creatinine 1.46 MG/DL 1.36 MG/DL 1.24 MG/DL Random Glucose 147 MG/DL 128 MG/DL 134 MG/DL Calcium Level 8.0 MG/DL 7.9 MG/DL 8.6 MG/DL Magnesium Level 2.4 MG/DL 2.4 MG/DL 2.6 MG/DL Sodium Level 145 MEQ/L 146 MEQ/L 151 MEQ/L Potassium Level 3.1 MEQ/L 3.1 MEQ/L 3.7 MEQ/L 3.5 MEQ/L Chloride Level 108 MEQ/L 110 MEQ/L 117 MEQ/L Carbon Dioxide Level 24.8 MEQ/L 25.1 MEQ/L 26.6 MEQ/L Anion Gap 12 MEQ/L 11 MEQ/L 7 MEQ/L Estimat Glomerular Filtration Rate 41 ML/MIN 44 ML/MIN 49 ML/MIN Total Protein 7.3 GM/DL Albumin 2.3 GM/DL Phosphorus Level 4.9 MG/DL 4.8 MG/DL Alkaline Phosphatase 77 U/L Aspartate Amino Transf (AST/SGOT) 18 U/L Alanine Aminotransferase (ALT/SGPT) 11 U/L Total Bilirubin 0.5 MG/DL Direct Bilirubin 0.3 MG/DL Indirect Bilirubin 0.2 MG/DL Imaging Last Impressions Chest X-Ray 03/05/17 0600 Signed Impressions: Service Date/Time: Sunday, March 05, 2017 03:28 - CONCLUSION: Stable chest x-ray with underinflation. No acute finding is identified. Adalid Galo MD Brain MRI 03/02/17 0000 Signed Impressions: Service Date/Time: Thursday, March 02, 2017 17:07 - CONCLUSION: 1. Small acute or subacute cortical infarct of the left parietal lobe. 2. Small, faint area of nonspecific flair signal abnormality in the left frontal lobe periventricular white matter, nonspecific. No associated mass effect or abnormal enhancement. 3 month followup MRI of the brain recommended. 3. Mild chronic white matter changes. Adalid Perry MD Head CT 02/26/17 0000 Signed Impressions: Service Date/Time: Sunday, February 26, 2017 19:47 - CONCLUSION: No evidence of acute infarct, hemorrhage, mass or edema. Ken Sanchez MD Physical Exam CONSTITUTIONAL/GENERAL: This is an adequately nourished patient, in no apparent distress. Sedated, int'd on [facility] vent TUBES/LINES/DRAINS: SKIN: No jaundice, rashes, or lesions. Skin temperature appropriate. Not diaphoretic. multiple embolic lesions cw septic embolization involving L lower leg and both feet - evolving HEAD: Atraumatic. Normocephalic. EYES: Pupils small non reactive equal and round . No scleral icterus. No injection or drainage. Fundi not examined. CARDIOVASCULAR: Regular rate and rhythm without murmurs, gallops, or rubs. Mechanical heart sounds No JVD. Peripheral pulses symmetric. RESPIRATORY/CHEST: Symmetric, unlabored respirations. Scattered rhonchi to auscultation. Breath sounds equal bilaterally. GASTROINTESTINAL: Abdomen soft, non-tender, moderately distended. No hepato- splenomegaly, or palpable masses. No guarding. Bowel sounds present, hypoactive GENITOURINARY: Without palpable bladder distension. Watson catheter in place with clear yellow urine MUSCULOSKELETAL: Extremities without clubbing, 2-3 edema. Anasarca LYMPHATICS: No palpable cervical or supraclavicular adenopathy. 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 cardiac injury from infx Critically ill , unstable Poor prognosis Not a surgical candidate ? PNA, clx negative New fever repeat blood clx - chk diff to monitor eosinophilia which can be aw curretn abx Rx cont oxacillin + gentamin +RIfampin cont ampicillin for Enterococci fu repeat blood clx monitor closely creatinint and LFTs (2-3x/week) Swati Enriquez RN, MD Mar 05, 2017 14:22
[2017-03-05] MEDS: RESP: ALBUTEROL 2.5 MG/IPRATROPIUM 0.5 MG NEB (PRN) INH (19:47)
[2017-03-06] VITALS (19 sets, daily range): BP systolic 89–131; BP diastolic 55–90; PULSE 78–96; RESP 16–24; TEMP 98.6–101.2; O2SAT 63–100
[2017-03-06] MEDS: AMPICILLIN INJ 2,000 MG in SODIUM CHLORIDE 0.9% INJ 100 ML IV SCH ×6 (01:01→21:13)
[2017-03-06] MEDS: GENTAMICIN/SOD CHL 80 MG/100 ML IV SCH ×2 (01:01→11:40)
[2017-03-06] MEDS: OXACILLIN INJ 2 GM in SODIUM CHLORIDE 0.9% INJ 100 ML IV SCH ×6 (02:42→21:12)
[2017-03-06] MEDS: RESP: ALBUTEROL 2.5 MG/IPRATROPIUM 0.5 MG NEB (PRN) INH ×2 (03:12→21:04)
[2017-03-06] MEDS: CHLORHEXIDINE GLUCONATE 2 % 1 PACK (2 CLOTHS) TOP SCH (04:00)
[2017-03-06] MEDS: INSULIN NovoLIN REGULAR SUPPLEMENTAL SCALE SQ SCH ×4 (06:00→18:00)
[2017-03-06 06:10] LABS: AUTOMATED NEUTROPHIL # 5.6 TH/MM3 (1.8-7.7); BASOPHIL # 0.1 TH/MM3 (0-0.2); BASOPHIL % 0.7 % (0.0-2.0); EOSINOPHIL # 0.2 TH/MM3 (0-0.4); EOSINOPHIL % 2.1 % (0.0-4.0); HEMATOCRIT 22.3 % (35.0-46.0); HEMO FLAGS DIFF FINAL; LYMPHOCYTE # 0.8 TH/MM3 (1.0-4.8); MEAN CELL VOLUME 75.3 FL (80.0-100.0); MEAN CORPUSCULAR HEMOGLOBIN 24.8 PG (27.0-34.0); MEAN CORPUSCULAR HGB CONC 32.9 % (32.0-36.0); MONO % 7.2 % (0.0-8.0); PLATELET COUNT 292 TH/MM3 (150-450); RED BLOOD COUNT 2.97 MIL/MM3 (4.00-5.30); RED CELL DISTRIBUTION WIDTH 16.6 % (11.6-17.2); WHITE BLOOD COUNT 7.1 TH/MM3 (4.0-11.0)
[2017-03-06 06:41] LABS: BICARBONATE 25.8 MEQ/L (21.0-32.0); MAGNESIUM 2.6 MG/DL (1.5-2.5); POTASSIUM 3.1 MEQ/L (3.5-5.1)
[2017-03-06] MEDS: FAMOTIDINE 20 MG/2 ML VIAL IV PUSH SCH ×2 (08:59→21:27)
[2017-03-06] MEDS: SODIUM CHLORIDE 0.9% FLUSH 10 ML FLUSH IV FLUSH SCH ×2 (08:59→21:14)
[2017-03-06] MEDS: MIDAZOLAM 100 MG/NS 100 ML DRIP Premix IV PRN (08:59)
[2017-03-06] MEDS: DOCUSATE SODIUM 50 MG/SENNA 8.6 MG TAB PO SCH ×2 (09:00→21:00)
[2017-03-06] MEDS: BUMETANIDE INJ 1 MG/4 ML VIAL IV PUSH SCH (09:00)
[2017-03-06] MEDS: ARTIFICIAL TEARS OPTH SOLN 15 ML BTL EACH EYE SCH ×3 (09:00→17:08)
[2017-03-06] MEDS: HEPARIN SODIUM - SQ 10,000 UNITS/ML VIAL SQ SCH ×2 (09:00→21:13)
[2017-03-06] MEDS: DEXMEDETOMIDINE INJ 200 MCG in SODIUM CHLORIDE 0.9% INJ 50 ML IV PRN ×2 (09:06→21:33)
[2017-03-06] MEDS: RIFAMPIN INJ 300 MG in SODIUM CHLORIDE 0.9% INJ 100 ML IV SCH ×2 (09:06→21:13)
[2017-03-06] MEDS: POTASSIUM CHLOR 40 MEQ PREMIX 100 ML IV PRN ×2 (10:38→14:00)
--- NOTE | 2017-03-06 13:42 | HHI.CCPN ---
Subjective Remarks/Hospital Course Hospital Course: 36-year-old female who presents initially as a stroke alert. According to EMS report the patient has a history of fungal endocarditis with previous IVDA. EMS states that the patient is currently on hospice, however, they are unsure if the patient is a DNR. EMS states the patient apparently complained of a headache earlier today, was found lying on the floor and incontinent of stool at approximate, last seen normal at 6:45 PM. Therefore, EMS called a stroke alert in the field as the patient was aphasic and confused. Upon arrival the patient groans, moves all 4 extremities and withdraws all 4 extremities, but is unable to provide any information. She was intubated in the emergency department by ER attending for airway protection. 02/27: remains encephalopathic. Blood cultures growing Staph in 4/4 bottles. 02/28: Remains sedated/ encephalopathic, orally intubated on mechanical ventilation. 03/01: still in shock on vasopressors. grossly volume overloaded and intravascularly volume overloaded based on echo and clinically. needs aggressive diuresis, but still in shock. family made patient DNR last night, but want to continue aggressive therapies. still encephalopathic. no significant improvements. 03/02: seen and examined at around 06:45am. delayed note entry. remains encephalopathic. no significant changes. unlikely to survive hospital stay, no additional overall therapies. family wants aggressive treatment. diuresing on bumex drip. net 3.3L negative. still volume overloaded. 03/03: Tmax 102.8 This am patient went into SVT rhythm heart rate 190's. Cooling blanket placed, ice packs in place, metoprolol 5 mg IV push given, resolution heart rate mid 90s, MAP ranges 66-68. Ofirmev ordered. Bumex infusion discontinued secondary to elevation in creatinine. Chest x-ray pending. 03/04: Continues to be febrile, continues on cooling blanket. Propofol was discontinued secondary to hypotension. Today the patient continues on Versed and fentanyl infusions with the RASS -2. Patient currently GCS of 11 T, responsive. The patient tolerated CPAP trials for approximately 2.5 hours for the last 2 days. 03/05: Somewhat agitated this AM. Remains in sinus tachycardia. On PSV trials 1.5 hours today. Tolerating tube feeding. Tmax 101.4. Subjective: 03/06: Low-grade fevers overnight. Currently afebrile. Remains on Precedex, Versed and fentanyl drips for sedation. On PSV trial 2 hours so far. Tolerating tube feeds. Objective Vital Signs Date Time Temp Pulse Resp B/P (MAP) Pulse Ox O2 Delivery O2 Flow Rate FiO2 03/06/17 12:00 35 03/06/17 12:00 98.6 96 24 124/78 (93) 100 117/77 (90) Intake and Output 03/06/17 03/06/17 03/07/17 08:00 16:00 00:00 Intake Total 1110 ml 350 ml Output Total 1350 ml Balance -240 ml 350 ml Result Diagram: 03/06/17 0530 03/06/17 0530 Other Results Microbiology Date/Time Source Procedure Growth Status 03/05/17 16:55 Blood Peripheral Aerobic Blood Culture - Preliminary NO GROWTH IN 1 DAY Resulted 03/05/17 16:55 Blood Peripheral Anaerobic Blood Culture - Preliminary NO GROWTH IN 1 DAY Resulted 02/26/17 22:00 Cerebral Spinal Fluid Lumbar Puncture Fungal Smear - Final NO FUNGAL ELEMENTS SEEN. Resulted 02/26/17 22:00 Cerebral Spinal Fluid Lumbar Puncture Fungal Culture - Preliminary NO GROWTH IN 1 WEEK Resulted 03/01/17 21:15 Sputum Endotracheal Gram Stain - Final Complete 03/01/17 21:15 Sputum Endotracheal Sputum Culture - Final RARE GROWTH NORMAL RESPIRATORY PATRICIA Complete Imaging Last Impressions Chest X-Ray 03/05/17 0600 Signed Impressions: Service Date/Time: Sunday, March 05, 2017 03:28 - CONCLUSION: Stable chest x-ray with underinflation. No acute finding is identified. Adalid Galo MD Brain MRI 03/02/17 0000 Signed Impressions: Service Date/Time: Thursday, March 02, 2017 17:07 - CONCLUSION: 1. Small acute or subacute cortical infarct of the left parietal lobe. 2. Small, faint area of nonspecific flair signal abnormality in the left frontal lobe periventricular white matter, nonspecific. No associated mass effect or abnormal enhancement. 3 month followup MRI of the brain recommended. 3. Mild chronic white matter changes. Adalid Perry MD Head CT 02/26/17 0000 Signed Impressions: Service Date/Time: Sunday, February 26, 2017 19:47 - CONCLUSION: No evidence of acute infarct, hemorrhage, mass or edema. Ken Sanchez MD Objective Remarks GENERAL: 36-year-old female, critically ill currently resting in bed will strictly intubated SKIN: Warm and dry. Livedo reticularis noted on peripheral extremities HEAD: Normocephalic. EYES: No scleral icterus. No injection or drainage. NECK: trachea midline. No JVD CARDIOVASCULAR: Tachycardic, RR. S1, S2 no S4. Without murmur RESPIRATORY: Essentially clear to auscultation without wheezes rales or rhonchi GASTROINTESTINAL: Abdomen soft, non-tender, nondistended. no guarding. MUSCULOSKELETAL: 1 + peripheral edema. Generalized anasarca. Multiple petechiae and ecchymotic bruising secondary to most likely septic emboli NEURO EXAM: GCS 11T. Follows commands, moves extremities 4. Motor strength 5/ 5 bilateral upper and lower extremity. Cranial nerves II-XII grossly intact. A/P Assessment and Plan Neuro/Psych Acute Encephalopathy Acute meningitis, possible bacterial Left parietal/frontal CVA Patient is currently on Precedex drip at 0.2, Versed drip at 10 mg an hour fentanyl drip at 250 mcg an hour for sedation/analgesia while intubated Goal of RA SS -2 Daily sedation vacation - LP with elevated protein, and low glucose relative to serum glucose. - CT head negative -MRI-small acute and subacute cortical infarct of left parietal lobe - Neuro checks per unit protocol Acetaminophen for fever Evaluated by neurology Resp: Acute hypoxic and hypercarbic Respiratory failure ACV 14/555/35 Ventilator bundle As needed albuterol therapy Spontaneous breathing trials daily Cardiac SVT Sinus tachycardia Mixed Septic/cardiogenic Shock Acute congestive heart failure secondary to valvulopathy Tricuspid Regurgitation - Metoprolol 2.5 mg every 6 hours when necessary heart rate greater than 100 bpm Echocardiogram 02/22 revealed EF 25-30%. PAP 34 mmHg. Currently off all vasopressors. ID: History of fungal endocarditis Staph Bacteremia Tricuspid valve infective endocarditis - History of IVDA - Broad-spectrum antibiotic with oxiaccillin, ampicillin, gentamicin and rifampin - Infectious disease following, Dr. Spaulding RENAL: Acute Kidney Injury - resolved -secondary to shock - Strict I and O's - pedroza catheter GI" Acute Protein calorie malnutrition- severe - secondary to long-standing IVDA and endocarditis - continue TF Jevity 1.5 currently at goal 55 cc/hour-minimal residuals Famotidine for GI prophylaxis Docusate sodium/senna for bowel regimen HEME: Normocytic anemia Monitor CBC daily. Follow trends Endo Hyperglycemia critical illness Sliding scale insulin to maintain euglycemia FEN: Hypernatremia Hypopotassemia Additional free water flushes 300 every 8 hours. Replace potassium. Per ICU electrolyte protocol. Recheck in AM. DVT GI prophylaxis - Teds SCDs - Subcutaneous heparin -Famotidine Dispo: Discussed with AGRICULTURAL ECONOMICS TEACHER and significant other at bedside. 30 minutes critical care time Francis Dominguez MD Mar 06, 2017 13:42
[2017-03-06] MEDS: FREE WATER G-TUBE SCH ×2 (14:01→21:13)
--- NOTE | 2017-03-06 15:17 | HHI.IDPN ---
Subjective Subjective Remarks fevers trending down having diarrhea Minimal ETT secretions creatinine is stable Antibiotics ampicillin oxacillin gent rifampin Allergies: Coded Allergies: No Known Allergies (Verified , 09/01/15) Objective . Vital Signs Date Time Temp Pulse Resp B/P (MAP) Pulse Ox O2 Delivery O2 Flow Rate FiO2 03/06/17 14:03 99 35 03/06/17 12:00 35 03/06/17 12:00 98.6 96 24 124/78 (93) 100 117/77 (90) 03/06/17 12:00 96 03/06/17 10:45 35 03/06/17 10:33 99 35 03/06/17 10:30 35 03/06/17 10:00 92 03/06/17 08:00 89 03/06/17 08:00 35 03/06/17 08:00 89 89/55 (66) 117/70 (86) 03/06/17 08:00 99.1 89 20 117/70 (86) 100 89/55 (66) 03/06/17 07:33 100 35 03/06/17 06:00 82 03/06/17 04:20 100 35 03/06/17 04:00 83 03/06/17 04:00 35 03/06/17 04:00 98.2 83 16 119/78 (92) 100 108/78 (88) 03/06/17 02:00 78 03/06/17 01:10 100 35 03/06/17 00:00 79 03/06/17 00:00 101.2 79 16 111/67 (82) 100 96/71 (79) 03/06/17 00:00 96/71 (79) 111/67 (82) 03/06/17 00:00 35 03/05/17 22:50 100 35 03/05/17 22:00 94 03/05/17 20:00 91/68 (76) 109/67 (81) 03/05/17 20:00 100.9 87 16 109/67 (81) 98 91/68 (76) 03/05/17 20:00 87 03/05/17 20:00 35 03/05/17 19:40 100 35 03/05/17 18:00 87 03/05/17 16:17 97 35 03/05/17 16:00 98.0 71 19 106/58 (74) 98 87/60 (69) 03/05/17 16:00 71 03/05/17 16:00 40 03/06/17 03/06/17 03/07/17 15:00 23:00 07:00 Intake Total 650 ml Balance 650 ml IV Total 650 ml . Laboratory Tests Test 03/05/17 05:04 03/06/17 05:30 White Blood Count 8.0 TH/MM3 7.1 TH/MM3 Red Blood Count 3.53 MIL/MM3 2.97 MIL/MM3 Hemoglobin 8.5 GM/DL 7.4 GM/DL Hematocrit 26.8 % 22.3 % Mean Corpuscular Volume 75.7 FL 75.3 FL Mean Corpuscular Hemoglobin 24.2 PG 24.8 PG Mean Corpuscular Hemoglobin Concent 31.9 % 32.9 % Red Cell Distribution Width 16.5 % 16.6 % Platelet Count 311 TH/MM3 292 TH/MM3 Mean Platelet Volume 7.8 FL 8.4 FL Neutrophils (%) (Auto) 79.0 % Lymphocytes (%) (Auto) 11.0 % Monocytes (%) (Auto) 7.2 % Eosinophils (%) (Auto) 2.1 % Basophils (%) (Auto) 0.7 % Neutrophils # (Auto) 5.6 TH/MM3 Lymphocytes # (Auto) 0.8 TH/MM3 Monocytes # (Auto) 0.5 TH/MM3 Eosinophils # (Auto) 0.2 TH/MM3 Basophils # (Auto) 0.1 TH/MM3 CBC Comment DIFF FINAL Differential Comment Laboratory Tests Test 03/05/17 05:04 03/06/17 05:30 Blood Urea Nitrogen 33 MG/DL 31 MG/DL Creatinine 1.24 MG/DL 1.24 MG/DL Random Glucose 134 MG/DL 146 MG/DL Calcium Level 8.6 MG/DL 8.3 MG/DL Phosphorus Level 4.8 MG/DL 5.8 MG/DL Magnesium Level 2.6 MG/DL 2.6 MG/DL Sodium Level 151 MEQ/L 153 MEQ/L Potassium Level 3.5 MEQ/L 3.1 MEQ/L Chloride Level 117 MEQ/L 118 MEQ/L Carbon Dioxide Level 26.6 MEQ/L 25.8 MEQ/L Anion Gap 7 MEQ/L 9 MEQ/L Estimat Glomerular Filtration Rate 49 ML/MIN 49 ML/MIN Microbiology Date/Time Source Procedure Growth Status 03/05/17 16:55 Blood Peripheral Aerobic Blood Culture - Preliminary NO GROWTH IN 1 DAY Resulted 03/05/17 16:55 Blood Peripheral Anaerobic Blood Culture - Preliminary NO GROWTH IN 1 DAY Resulted 03/05/17 16:48 Blood Peripheral Aerobic Blood Culture - Preliminary NO GROWTH IN 1 DAY Resulted 03/05/17 16:48 Blood Peripheral Anaerobic Blood Culture - Preliminary NO GROWTH IN 1 DAY Resulted Imaging Last Impressions Chest X-Ray 03/05/17 0600 Signed Impressions: Service Date/Time: Sunday, March 05, 2017 03:28 - CONCLUSION: Stable chest x-ray with underinflation. No acute finding is identified. Adalid Galo MD Brain MRI 03/02/17 0000 Signed Impressions: Service Date/Time: Thursday, March 02, 2017 17:07 - CONCLUSION: 1. Small acute or subacute cortical infarct of the left parietal lobe. 2. Small, faint area of nonspecific flair signal abnormality in the left frontal lobe periventricular white matter, nonspecific. No associated mass effect or abnormal enhancement. 3 month followup MRI of the brain recommended. 3. Mild chronic white matter changes. Adalid Perry MD Head CT 02/26/17 0000 Signed Impressions: Service Date/Time: Sunday, February 26, 2017 19:47 - CONCLUSION: No evidence of acute infarct, hemorrhage, mass or edema. Ken Sanchez MD Physical Exam CONSTITUTIONAL/GENERAL: This is an adequately nourished patient, in no apparent distress. Sedated, int'd on mech vent TUBES/LINES/DRAINS: SKIN: No jaundice, rashes, or lesions. Skin temperature appropriate. Not diaphoretic. multiple embolic lesions cw septic embolization involving L lower leg and both feet - evolving No new ones noted HEAD: Atraumatic. Normocephalic. EYES: Pupils small non reactive equal and round . No scleral icterus. No injection or drainage. Fundi not examined. CARDIOVASCULAR: Regular rate and rhythm without murmurs, gallops, or rubs. Mechanical heart sounds No JVD. Peripheral pulses symmetric. RESPIRATORY/CHEST: Symmetric, unlabored respirations. Diffuse rhonchi to auscultation. Breath sounds equal bilaterally. GASTROINTESTINAL: Abdomen soft, non-tender, moderately distended. No hepato- splenomegaly, or palpable masses. No guarding. Bowel sounds present, hypoactive Incontinent of liquid brown stool GENITOURINARY: Without palpable bladder distension. 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 cardiac injury from infx Critically ill , more stable Poor prognosis Not a surgical candidate ? PNA, clx negative New fever fu repeat blood clx untill final - chk diff to monitor eosinophilia which can be aw curretn abx Rx cont oxacillin + gentamin +RIfampin cont ampicillin for Enterococci fu repeat blood clx monitor closely creatinint and LFTs (2-3x/week) Unless more positive blood clx anticipate 6 week from 1st neg (03/01) followed by indefinite oral abx suppression tx chk stool for C.diff Swati Enriquez RN, MD Mar 06, 2017 15:17
[2017-03-06] MEDS: fentaNYL DRIP 250 ML IV SCH (18:33)
[2017-03-07] VITALS (19 sets, daily range): BP systolic 101–137; BP diastolic 59–81; PULSE 80–111; RESP 18–22; TEMP 98.9–100.2; O2SAT 93–100
[2017-03-07] MEDS: GENTAMICIN/SOD CHL 80 MG/100 ML IV SCH ×3 (00:07→23:40)
[2017-03-07] MEDS: AMPICILLIN INJ 2,000 MG in SODIUM CHLORIDE 0.9% INJ 100 ML IV SCH ×7 (00:08→23:40)
[2017-03-07] MEDS: OXACILLIN INJ 2 GM in SODIUM CHLORIDE 0.9% INJ 100 ML IV SCH ×6 (00:59→21:43)
[2017-03-07] MEDS: RESP: ALBUTEROL 2.5 MG/IPRATROPIUM 0.5 MG NEB (PRN) INH ×2 (02:43→17:41)
[2017-03-07] MEDS: CHLORHEXIDINE GLUCONATE 2 % 1 PACK (2 CLOTHS) TOP SCH (04:00)
[2017-03-07] MEDS: FREE WATER G-TUBE SCH ×3 (05:04→19:51)
[2017-03-07] MEDS: INSULIN NovoLIN REGULAR SUPPLEMENTAL SCALE SQ SCH ×4 (05:06→17:28)
[2017-03-07] MEDS: MIDAZOLAM 100 MG/NS 100 ML DRIP Premix IV PRN ×2 (06:30→18:41)
[2017-03-07 07:42] LABS: ALT (GPT) 8 U/L (10-53); ANION GAP 10 MEQ/L (5-15); AST (GOT) 18 U/L (15-37); BICARBONATE 24.6 MEQ/L (21.0-32.0); BLOOD UREA NITROGEN 29 MG/DL (7-18); CHLORIDE 118 MEQ/L (98-107); GLOMERULAR FILTRATION RATE 48 ML/MIN (>89); MAGNESIUM 2.7 MG/DL (1.5-2.5); POTASSIUM 3.6 MEQ/L (3.5-5.1); SODIUM (NA) 153 MEQ/L (136-145)
[2017-03-07 07:44] LABS: ALKALINE PHOSPHATASE 78 U/L (45-117); TOTAL BILIRUBIN ADULT 0.4 MG/DL (0.2-1.0)
[2017-03-07 07:46] LABS: AUTOMATED NEUTROPHIL # 7.2 TH/MM3 (1.8-7.7); BASOPHIL % 0.5 % (0.0-2.0); EOSINOPHIL # 0.1 TH/MM3 (0-0.4); EOSINOPHIL % 1.6 % (0.0-4.0); HEMATOCRIT 25.2 % (35.0-46.0); HEMO FLAGS DIFF FINAL; LYMPH % 8.8 % (9.0-44.0); LYMPHOCYTE # 0.8 TH/MM3 (1.0-4.8); MEAN CELL VOLUME 76.5 FL (80.0-100.0); MEAN CORPUSCULAR HEMOGLOBIN 24.3 PG (27.0-34.0); MEAN CORPUSCULAR HGB CONC 31.8 % (32.0-36.0); MONO % 6.7 % (0.0-8.0); NEUT % 82.4 % (16.0-70.0); PLATELET COUNT 353 TH/MM3 (150-450); RED BLOOD COUNT 3.29 MIL/MM3 (4.00-5.30); RED CELL DISTRIBUTION WIDTH 16.8 % (11.6-17.2); WHITE BLOOD COUNT 8.7 TH/MM3 (4.0-11.0)
[2017-03-07] MEDS: BUMETANIDE INJ 1 MG/4 ML VIAL IV PUSH SCH (09:51)
[2017-03-07] MEDS: HEPARIN SODIUM - SQ 10,000 UNITS/ML VIAL SQ SCH ×2 (09:52→21:43)
[2017-03-07] MEDS: RIFAMPIN INJ 300 MG in SODIUM CHLORIDE 0.9% INJ 100 ML IV SCH ×2 (09:52→19:51)
[2017-03-07] MEDS: FAMOTIDINE 20 MG/2 ML VIAL IV PUSH SCH ×2 (09:52→19:51)
[2017-03-07] MEDS: SODIUM CHLORIDE 0.9% FLUSH 10 ML FLUSH IV FLUSH SCH ×2 (09:52→19:51)
[2017-03-07] MEDS: DOCUSATE SODIUM 50 MG/SENNA 8.6 MG TAB PO SCH ×2 (09:53→19:51)
[2017-03-07] MEDS: ARTIFICIAL TEARS OPTH SOLN 15 ML BTL EACH EYE SCH ×3 (09:53→17:07)
--- NOTE | 2017-03-07 12:36 | HHI.CCPN ---
Subjective Remarks/Hospital Course Hospital Course: 36-year-old female who presents initially as a stroke alert. According to EMS report the patient has a history of fungal endocarditis with previous IVDA. EMS states that the patient is currently on hospice, however, they are unsure if the patient is a DNR. EMS states the patient apparently complained of a headache earlier today, was found lying on the floor and incontinent of stool at approximate, last seen normal at 6:45 PM. Therefore, EMS called a stroke alert in the field as the patient was aphasic and confused. Upon arrival the patient groans, moves all 4 extremities and withdraws all 4 extremities, but is unable to provide any information. She was intubated in the emergency department by ER attending for airway protection. 02/27: remains encephalopathic. Blood cultures growing Staph in 4/ bottles. 02/28: Remains sedated/ encephalopathic, orally intubated on mechanical ventilation. 03/01: still in shock on vasopressors. grossly volume overloaded and intravascularly volume overloaded based on echo and clinically. needs aggressive diuresis, but still in shock. family made patient DNR last night, but want to continue aggressive therapies. still encephalopathic. no significant improvements. 03/02: seen and examined at around 06:45am. delayed note entry. remains encephalopathic. no significant changes. unlikely to survive hospital stay, no additional overall therapies. family wants aggressive treatment. diuresing on bumex drip. net 3.3L negative. still volume overloaded. 03/03: Tmax 102.8 This am patient went into SVT rhythm heart rate 190's. Cooling blanket placed, ice packs in place, metoprolol 5 mg IV push given, resolution heart rate mid 90s, MAP ranges 66-68. Ofirmev ordered. Bumex infusion discontinued secondary to elevation in creatinine. Chest x-ray pending. 03/04: Continues to be febrile, continues on cooling blanket. Propofol was discontinued secondary to hypotension. Today the patient continues on Versed and fentanyl infusions with the RASS -2. Patient currently GCS of 11 T, responsive. The patient tolerated CPAP trials for approximately 2.5 hours for the last 2 days. 03/05: Somewhat agitated this AM. Remains in sinus tachycardia. On PSV trials 1.5 hours today. Tolerating tube feeding. Tmax 101.4. 03/06: Low-grade fevers overnight. Currently afebrile. Remains on Precedex, Versed and fentanyl drips for sedation. On PSV trial 2 hours so far. Tolerating tube feeds. Subjective: 03/07: Regular. Requesting extubation DO NOT INTUBATE hospice today. Patient actually is doing well on her weaning trials. If passes wean parameters. We' ll attempt extubation today. Objective Vital Signs Date Time Temp Pulse Resp B/P (MAP) Pulse Ox O2 Delivery O2 Flow Rate FiO2 03/07/17 11:43 100 35 03/07/17 08:00 98.9 87 18 125/75 (92) Intake and Output 03/07/17 03/07/17 03/07/17 07:59 15:59 23:59 Intake Total 1660 ml 123 ml Output Total 1300 ml Balance 360 ml 123 ml Result Diagram: 03/07/17 0636 03/07/17 0636 Other Results Microbiology Date/Time Source Procedure Growth Status 03/05/17 16:55 Blood Peripheral Aerobic Blood Culture - Preliminary NO GROWTH IN 2 DAYS Resulted 03/05/17 16:55 Blood Peripheral Anaerobic Blood Culture - Preliminary NO GROWTH IN 2 DAYS Resulted 02/26/17 22:00 Cerebral Spinal Fluid Lumbar Puncture Fungal Smear - Final NO FUNGAL ELEMENTS SEEN. Resulted 02/26/17 22:00 Cerebral Spinal Fluid Lumbar Puncture Fungal Culture - Preliminary NO GROWTH IN 1 WEEK Resulted 03/01/17 21:15 Sputum Endotracheal Gram Stain - Final Complete 03/01/17 21:15 Sputum Endotracheal Sputum Culture - Final RARE GROWTH NORMAL RESPIRATORY PATRICIA Complete Imaging Last Impressions Chest X-Ray 03/05/17 0600 Signed Impressions: Service Date/Time: Sunday, March 05, 2017 03:28 - CONCLUSION: Stable chest x-ray with underinflation. No acute finding is identified. Adalid Galo MD Brain MRI 03/02/17 0000 Signed Impressions: Service Date/Time: Thursday, March 02, 2017 17:07 - CONCLUSION: 1. Small acute or subacute cortical infarct of the left parietal lobe. 2. Small, faint area of nonspecific flair signal abnormality in the left frontal lobe periventricular white matter, nonspecific. No associated mass effect or abnormal enhancement. 3 month followup MRI of the brain recommended. 3. Mild chronic white matter changes. Adalid Perry MD Head CT 02/26/17 0000 Signed Impressions: Service Date/Time: Sunday, February 26, 2017 19:47 - CONCLUSION: No evidence of acute infarct, hemorrhage, mass or edema. Ken Sanchez MD Objective Remarks GENERAL: 36-year-old female, critically ill currently resting in bed orotracheally intubated SKIN: Warm and dry. Livedo reticularis noted on peripheral extremities HEAD: Normocephalic. EYES: No scleral icterus. No injection or drainage. NECK: trachea midline. No JVD CARDIOVASCULAR: Tachycardic, RR. S1, S2 no S4. Without murmur RESPIRATORY: Essentially clear to auscultation without wheezes rales or rhonchi GASTROINTESTINAL: Abdomen soft, non-tender, nondistended. no guarding. MUSCULOSKELETAL: 1 + peripheral edema. Generalized anasarca. Multiple petechiae and ecchymotic bruising secondary to most likely septic emboli NEURO EXAM: GCS 11T. Follows commands, moves extremities 4. Motor strength 5/ 5 bilateral upper and lower extremity. Cranial nerves II-XII grossly intact. A/P Assessment and Plan Neuro/Psych Acute Encephalopathy Acute meningitis, possible bacterial Left parietal/frontal CVA Patient is currently on Versed drip at 10 mg an hour fentanyl drip at 250 mcg an hour for sedation/analgesia while intubated Goal of RA SS -2 Daily sedation vacation - LP with elevated protein, and low glucose relative to serum glucose. - CT head negative -MRI-small acute and subacute cortical infarct of left parietal lobe - Neuro checks per unit protocol Acetaminophen for fever Evaluated by neurology Resp: Acute hypoxic and hypercarbic Respiratory failure ACV 14/555/35 Ventilator bundle As needed albuterol therapy Spontaneous breathing trials daily currently 8 and 35% Cardiac SVT Sinus tachycardia Mixed Septic/cardiogenic Shock Acute congestive heart failure secondary to valvulopathy Tricuspid Regurgitation - Metoprolol 2.5 mg every 6 hours when necessary heart rate greater than 100 bpm Echocardiogram 02/22 revealed EF 25-30%. PAP 34 mmHg. Currently off all vasopressors. ID: History of fungal endocarditis Staph Bacteremia Tricuspid valve infective endocarditis - History of IVDA - Broad-spectrum antibiotic with oxiaccillin, ampicillin, gentamicin and rifampin - Infectious disease following, Dr. Spaulding RENAL: Acute Kidney Injury - resolved -secondary to shock - Strict I and O's - pedroza catheter GI" Acute Protein calorie malnutrition- severe - secondary to long-standing IVDA and endocarditis - continue TF Jevity 1.5 currently at goal 55 cc/hour-minimal residuals Famotidine for GI prophylaxis Docusate sodium/senna for bowel regimen HEME: Microcytic anemia Monitor CBC daily. Follow trends Endo Hyperglycemia critical illness Sliding scale insulin to maintain euglycemia FEN: Hypernatremia Additional free water flushes 300 every 8 hours. Add a quarter normal saline 2 L. Recheck in AM. DVT GI prophylaxis - Teds SCDs - Subcutaneous heparin -Famotidine Dispo: Discussed with [employer] CARRIAGE OPERATOR and significant other at bedside. Level II follow-up Francis Dominguez MD Mar 07, 2017 12:36
[2017-03-07] MEDS ORDERED: POTASSIUM CHLORIDE 20 MEQ PWD PACKET PO ONE (12:45)
[2017-03-07] MEDS: SODIUM CHLORIDE 23.4% INJ 38.5 MEQ in WATER STERILE FOR INJ 1,000 ML IV SCH (13:14)
--- NOTE | 2017-03-07 13:55 | HHI.HCPN ---
Reason for visit a. To assist with evaluation and management of symptoms including: dyspnea, agitation. b. To assist medical decision maker(s) with: better understanding of current medical conditions; weighing benefits/burdens of medical treatment options; making medical treatment decisions. . Subjective/Interval History Patient seen and examined in ICU. Also present nurse, Patti. Discussed with Dr. Dominguez. Also present Dc (boyfriend) at bedside. I was called to come to unit to reassess goals now that the patient is more awake and asking to be taken off the vent and go to hospice. Dr. Dominguez reports trach decision will be needed Sunday if unable to be medically extubated in the mean time. Upon my arrival the patient is awake and alert. Patient remains in ICU on mech vent. Tolerating brief CPAP trials a few hours at a time. On CPAP 20/11. Tmax 99.8 in the past 24 hours. Was 101.2 on 03/06/17. BP stable. Tachycardic. WBC 8.7, hemoglobin 8.0, hematocrit 25.2, platelets 353. Creatinine 1.27. Medical update provided to patient and Dc. Patient wants to be extubated, but when asked she seems to want it to have ice and water. She does not answer me when asked about trach or PEG. She nods yes to pain in head, throat, chest and legs. She denies pain in abdomen or back. We talked about pain control. She remains on Fentanyl drip. Dr. Dominguez and I agreed to addition of Methadone. Patient asks if I will be stopping her other meds, I advised we will wean from drips once Methadone reached full effect. She agrees. I am not certain how much understanding she has to her overall health, she has what appears to be some insight, but her judgement may be impaired. . Family/friend interactions See interval note. Advance Directives Living Will: Never completed Health Care Surrogate: Never completed Durable Power of Spinneret Cleaner: Never completed Advance Directive Specifics Health Care Surrogate(s): No known written advanced directives, family is going to try to find HCS paperwork they think pt previously completed. Patient a single. Children are juvenile. If no written advanced directives, according to [place] statutes health care proxy decision-making falls to a parent. . Significant change in goals: NO CODE. Goals remain aggressive short of NO CODE for now. . Objective Vital Signs Date Time Temp Pulse Resp B/P (MAP) Pulse Ox O2 Delivery O2 Flow Rate FiO2 03/07/17 11:43 100 35 03/07/17 08:00 98.9 87 18 125/75 (92) 100 03/07/17 08:00 87 03/07/17 08:00 35 03/07/17 07:58 100 35 03/07/17 06:00 92 03/07/17 04:40 100 35 03/07/17 04:00 35 03/07/17 04:00 95 03/07/17 04:00 99.7 95 19 137/74 (95) 98 03/07/17 02:00 84 03/07/17 01:02 100 35 03/07/17 00:00 80 03/07/17 00:00 35 03/07/17 00:00 98.2 80 19 107/59 (75) 98 03/06/17 22:00 85 03/06/17 21:03 100 35 03/06/17 20:00 35 03/06/17 20:00 99.1 93 21 131/90 (104) 63 Arterial Line 03/06/17 20:00 93 03/06/17 18:00 93 03/06/17 16:05 100 35 03/06/17 16:00 99.8 95 120/71 (87) 100 114/78 (90) 03/06/17 16:00 35 03/06/17 16:00 95 03/06/17 14:03 99 35 03/06/17 14:00 93 Intake & Output 03/07/17 03/07/17 07:00 19:00 Intake Total 1960 ml 333 ml Output Total 1300 ml Balance 660 ml 333 ml IV Total 800 ml 333 ml Tube Feeding 560 ml Other 600 ml Output Urine Total 1000 ml Stool Total 300 ml Physical Exam CONSTITUTIONAL/GENERAL: This is an adequately nourished patient, sedated on mechanical ventilation. TUBES/LINES/DRAINS: ETT, NG, left subclavian central line, PIV right AC, Watson, SCDs. SKIN: Febrile. Multiple purple lesions bilateral feet. ENT: Hearing appears grossly normal. Nose with NG tube right nare. Throat difficult to visualize due to ETT. CARDIOVASCULAR: tachycardic, regular rhythm. RESPIRATORY/CHEST: Symmetric, unlabored respirations on vent. lungs clear. GASTROINTESTINAL: Abdomen soft, mild distended. Bowel sounds active. GENITOURINARY: Without palpable bladder distension. Watson catheter in place. MUSCULOSKELETAL: Extremities without clubbing. + edema. NEUROLOGICAL: Awake and alert, tracking. Nods yes/no to questions. Writes in notebook to communicate needs. Follows simple commands. PSYCHIATRIC: appears anxious/ agitated. . Diagnostic Tests Laboratory Laboratory Tests Test 03/05/17 04:50 03/05/17 05:04 03/06/17 05:30 03/07/17 06:36 Blood Gas Puncture Site MERLINE Blood Gas Patient Temperature 98.6 Blood Gas HCO3 23 mmol/L (22-26) Blood Gas Base Excess -1.6 mmol/L (-2-2) Blood Gas Oxygen Saturation 97 % (90-100) Arterial Blood pH 7.39 (7.380-7.420) Arterial Blood Partial Pressure CO2 38 mmHg (38-42) Arterial Blood Partial Pressure O2 159 mmHg (61-120) Arterial Blood Oxygen Content 14.4 Vol % (12.0-20.0) Arterial Blood Carboxyhemoglobin 1.5 % (0-4) Arterial Blood Methemoglobin 0.9 % (0-2) Blood Gas Hemoglobin 10.4 G/DL (12.0-16.0) Oxygen Delivery Device VENTILATOR Blood Gas Ventilator Setting AC14/550/+5 Blood Gas Inspired Oxygen 35 % White Blood Count 8.0 TH/MM3 (4.0-11.0) 7.1 TH/MM3 (4.0-11.0) 8.7 TH/MM3 (4.0-11.0) Red Blood Count 3.53 MIL/MM3 (4.00-5.30) 2.97 MIL/MM3 (4.00-5.30) 3.29 MIL/MM3 (4.00-5.30) Hemoglobin 8.5 GM/DL (11.6-15.3) 7.4 GM/DL (11.6-15.3) 8.0 GM/DL (11.6-15.3) Hematocrit 26.8 % (35.0-46.0) 22.3 % (35.0-46.0) 25.2 % (35.0-46.0) Mean Corpuscular Volume 75.7 FL (80.0-100.0) 75.3 FL (80.0-100.0) 76.5 FL (80.0-100.0) Mean Corpuscular Hemoglobin 24.2 PG (27.0-34.0) 24.8 PG (27.0-34.0) 24.3 PG (27.0-34.0) Mean Corpuscular Hemoglobin Concent 31.9 % (32.0-36.0) 32.9 % (32.0-36.0) 31.8 % (32.0-36.0) Red Cell Distribution Width 16.5 % (11.6-17.2) 16.6 % (11.6-17.2) 16.8 % (11.6-17.2) Platelet Count 311 TH/MM3 (150-450) 292 TH/MM3 (150-450) 353 TH/MM3 (150-450) Mean Platelet Volume 7.8 FL (7.0-11.0) 8.4 FL (7.0-11.0) 8.4 FL (7.0-11.0) Blood Urea Nitrogen 33 MG/DL (7-18) 31 MG/DL (7-18) 29 MG/DL (7-18) Creatinine 1.24 MG/DL (0.50-1.00) 1.24 MG/DL (0.50-1.00) 1.27 MG/DL (0.50-1.00) Random Glucose 134 MG/DL (74-106) 146 MG/DL (74-106) 137 MG/DL (74-106) Calcium Level 8.6 MG/DL (8.5-10.1) 8.3 MG/DL (8.5-10.1) 8.6 MG/DL (8.5-10.1) Phosphorus Level 4.8 MG/DL (2.5-4.9) 5.8 MG/DL (2.5-4.9) 5.0 MG/DL (2.5-4.9) Magnesium Level 2.6 MG/DL (1.5-2.5) 2.6 MG/DL (1.5-2.5) 2.7 MG/DL (1.5-2.5) Sodium Level 151 MEQ/L (136-145) 153 MEQ/L (136-145) 153 MEQ/L (136-145) Potassium Level 3.5 MEQ/L (3.5-5.1) 3.1 MEQ/L (3.5-5.1) 3.6 MEQ/L (3.5-5.1) Chloride Level 117 MEQ/L (98-107) 118 MEQ/L (98-107) 118 MEQ/L (98-107) Carbon Dioxide Level 26.6 MEQ/L (21.0-32.0) 25.8 MEQ/L (21.0-32.0) 24.6 MEQ/L (21.0-32.0) Anion Gap 7 MEQ/L (5-15) 9 MEQ/L (5-15) 10 MEQ/L (5-15) Estimat Glomerular Filtration Rate 49 ML/MIN (>89) 49 ML/MIN (>89) 48 ML/MIN (>89) Neutrophils (%) (Auto) 79.0 % (16.0-70.0) 82.4 % (16.0-70.0) Lymphocytes (%) (Auto) 11.0 % (9.0-44.0) 8.8 % (9.0-44.0) Monocytes (%) (Auto) 7.2 % (0.0-8.0) 6.7 % (0.0-8.0) Eosinophils (%) (Auto) 2.1 % (0.0-4.0) 1.6 % (0.0-4.0) Basophils (%) (Auto) 0.7 % (0.0-2.0) 0.5 % (0.0-2.0) Neutrophils # (Auto) 5.6 TH/MM3 (1.8-7.7) 7.2 TH/MM3 (1.8-7.7) Lymphocytes # (Auto) 0.8 TH/MM3 (1.0-4.8) 0.8 TH/MM3 (1.0-4.8) Monocytes # (Auto) 0.5 TH/MM3 (0-0.9) 0.6 TH/MM3 (0-0.9) Eosinophils # (Auto) 0.2 TH/MM3 (0-0.4) 0.1 TH/MM3 (0-0.4) Basophils # (Auto) 0.1 TH/MM3 (0-0.2) 0.0 TH/MM3 (0-0.2) CBC Comment DIFF FINAL DIFF FINAL Differential Comment Total Protein 7.3 GM/DL (6.4-8.2) Albumin 2.1 GM/DL (3.4-5.0) Alkaline Phosphatase 78 U/L (45-117) Aspartate Amino Transf (AST/SGOT) 18 U/L (15-37) Alanine Aminotransferase (ALT/SGPT) 8 U/L (10-53) Total Bilirubin 0.4 MG/DL (0.2-1.0) Result Diagram: 03/07/17 0636 03/07/17 0636 Microbiology Microbiology Date/Time Source Procedure Growth Status 03/05/17 16:55 Blood Peripheral Aerobic Blood Culture - Preliminary NO GROWTH IN 2 DAYS Resulted 03/05/17 16:55 Blood Peripheral Anaerobic Blood Culture - Preliminary NO GROWTH IN 2 DAYS Resulted 03/05/17 16:48 Blood Peripheral Aerobic Blood Culture - Preliminary NO GROWTH IN 2 DAYS Resulted 03/05/17 16:48 Blood Peripheral Anaerobic Blood Culture - Preliminary NO GROWTH IN 2 DAYS Resulted Imaging Last Impressions Chest X-Ray 03/05/17 0600 Signed Impressions: Service Date/Time: Sunday, March 05, 2017 03:28 - CONCLUSION: Stable chest x-ray with underinflation. No acute finding is identified. Adalid Galo MD Brain MRI 03/02/17 0000 Signed Impressions: Service Date/Time: Thursday, March 02, 2017 17:07 - CONCLUSION: 1. Small acute or subacute cortical infarct of the left parietal lobe. 2. Small, faint area of nonspecific flair signal abnormality in the left frontal lobe periventricular white matter, nonspecific. No associated mass effect or abnormal enhancement. 3 month followup MRI of the brain recommended. 3. Mild chronic white matter changes. Adalid Perry MD Head CT 02/26/17 0000 Signed Impressions: Service Date/Time: Sunday, February 26, 2017 19:47 - CONCLUSION: No evidence of acute infarct, hemorrhage, mass or edema. Ken Sanchez MD . Procedures * 02/26/17 - left subclavian central placement. * 02/26/17 - lumbar puncture * 02/26/17 - Intubated. . Assessment and Plan Disease Oriented Problem List: (1) Protein-calorie malnutrition, severe (2) Elevated troponin (3) Meningitis (4) Encephalopathy (5) Bacterial endocarditis (6) Polysubstance abuse (7) Sepsis (8) Acute kidney injury Symptom Scale: (1) Pain 0-10 Scale: Unable to quantify (2) Dyspnea 0-10 Scale: Unable to quantify Comment: on vent intermittent CPAP trials. (3) Agitation 0-10 Scale: Unable to quantify Pertinent Non-Medical Issues Psychosocial: single. 2 juvenile children. Supported by mother, stepfather and boyfriend. Spiritual: Unknown. Legal: patient is incapacitated. No written advanced directives. Patient a single. Children are juvenile. According to [place] statutes health care proxy decision-making falls to a parent. Ethical issues impacting care: No known concerns at this time. . Important Contacts * Fany Nielsen, mother: [phone] * Karsten Nielsen, stepfather: [phone] . Prognosis Prognosis poor. Code Status: No Code Plan * Decision Maker: patient is incapacitated. No written advanced directives. Patient a single. Children are juvenile. According to [place] statutes health care proxy decision-making falls to a parent. * NO CODE * 03/07/17 - Met with patient and her boyfriend, she does not appear to be able to make her own decisions, has some insight though judgement cannot be determined because she refuses to answer questions regarding medical decisions. Will continue to follow. * SYMPTOMS: Pain: nods yes to pain in throat, chest and legs. On Fentanyl 50 and Versed 5. Potential sources include endocarditis, bedbound status, tubes etc. Patient with likely high tolerance given history of IV drug use, will monitor effective medications. Recommend Methadone 5 mg PO every 12 hours, will discuss dose with Dr. Dominguez. Dyspnea: remains sedated on mechanical ventilation. * Palliative care will continue to follow throughout hospital course to assist with symptom management and clarification of goals as needed. . Attestation To help prompt me to consider important information that might be impacting today's encounter and assessment, information from prior notes written by myself or my colleagues may have been "brought forward" into today's note. My signature on this note, however, is an attestation that I personally performed the exam, history, and/or decision-making noted today, and, unless otherwise indicated, the interactions with patient, family, and staff as well as the review of records all occurred today. I also attest that the listed assessment and stated plan reflect my best clinical judgment today based on the combination of historical information, prior notes, and today's exam/ interactions. When time spent is documented, it refers only to time spent today by the signer, or if indicated, combined time spent today by collaborating physician/nurse practitioner. Shanice García Mar 07, 2017 13:55
--- NOTE | 2017-03-07 16:59 | HHI.HCPN ---
Palliative care visit following extubation. Ms. Segal alert, following commands , mouthing words. Discussed with her CODE STATUS now that she is extubated. Myrna Obrien RN, boyfriend, and myself all in room. She shakes her head "yes" to going back on the ventilator if needed. Also shakes her head "yes" to chest compressions. Code status changed to FULL CODE. Palliative care will continue to follow throughout hospitalization. Will continue to address goals of care as indicated and medical condition evolves. Tamara Ponce, SMALL ENGINE TRAINER Mar 07, 2017 16:59
[2017-03-07] MEDS ORDERED: ETOMIDATE 20 MG/10 ML VIAL ONE (18:15)
[2017-03-07] MEDS: fentaNYL DRIP 250 ML IV SCH (18:40)
[2017-03-08] VITALS (18 sets, daily range): BP systolic 111–138; BP diastolic 71–86; PULSE 68–100; RESP 16–22; TEMP 98.7–100; O2SAT 91–100
[2017-03-08] MEDS: SODIUM CHLORIDE 23.4% INJ 38.5 MEQ in WATER STERILE FOR INJ 1,000 ML IV SCH (01:09)
[2017-03-08] MEDS: OXACILLIN INJ 2 GM in SODIUM CHLORIDE 0.9% INJ 100 ML IV SCH ×6 (01:09→21:35)
[2017-03-08] MEDS: CHLORHEXIDINE GLUCONATE 2 % 1 PACK (2 CLOTHS) TOP SCH (04:00)
[2017-03-08] MEDS: AMPICILLIN INJ 2,000 MG in SODIUM CHLORIDE 0.9% INJ 100 ML IV SCH ×5 (04:26→20:29)
[2017-03-08] MEDS: FREE WATER G-TUBE SCH ×3 (05:07→21:37)
--- NOTE | 2017-03-08 05:11 | PD.PROCEDR ---
Procedure Note Procedure Endotracheal Intubation A time-out was completed verifying correct patient, procedure, site, positioning , and special equipment if applicable. The patient was placed in a flat position. Sedation was obtained using Etomidate 20mg. The patient was easily ventilated using an ambu bag. The [employer]/ MAC 4 BLADE was used and inserted into the oropharynx at which time there was a Grade 1 view of the vocal cords. A 8-ukrainian endotracheal tube was inserted and visualized going through the vocal cords. The stylette was removed. Colorimetric change was visualized on the CO2 meter. Breath sounds were heard in both lung gustafson equally. The endotracheal tube was placed at 23 cm, measured at the teeth. A chest x-ray was ordered to assess for pneumothorax and verify endotrachealtube placement. Estimated Blood Loss: 0 The patient tolerated the procedure well and there were no complications. Adan Calix MD Mar 08, 2017 05:11
[2017-03-08 06:26] LABS: MEAN CELL VOLUME 75.5 FL (80.0-100.0); MEAN CORPUSCULAR HEMOGLOBIN 23.9 PG (27.0-34.0); MEAN CORPUSCULAR HGB CONC 31.6 % (32.0-36.0); PLATELET COUNT 419 TH/MM3 (150-450); RED BLOOD COUNT 3.18 MIL/MM3 (4.00-5.30); RED CELL DISTRIBUTION WIDTH 16.5 % (11.6-17.2); REVIEW FLAG FINAL; WHITE BLOOD COUNT 8.5 TH/MM3 (4.0-11.0)
[2017-03-08 06:45] LABS: POTASSIUM 3.4 MEQ/L (3.5-5.1)
[2017-03-08] MEDS: ARTIFICIAL TEARS OPTH SOLN 15 ML BTL EACH EYE SCH ×3 (07:57→18:00)
[2017-03-08] MEDS: RIFAMPIN INJ 300 MG in SODIUM CHLORIDE 0.9% INJ 100 ML IV SCH (07:58)
[2017-03-08] MEDS: SODIUM CHLORIDE 0.9% FLUSH 10 ML FLUSH IV FLUSH SCH ×2 (07:59→20:29)
[2017-03-08] MEDS: DOCUSATE SODIUM 50 MG/SENNA 8.6 MG TAB PO SCH ×2 (08:00→20:30)
[2017-03-08] MEDS: FAMOTIDINE 20 MG/2 ML VIAL IV PUSH SCH ×2 (08:00→20:30)
[2017-03-08] MEDS: POTASSIUM CHLOR 40 MEQ PREMIX 100 ML IV PRN (08:06)
--- NOTE | 2017-03-08 10:11 | HHI.CCPN ---
Subjective Remarks/Hospital Course Hospital Course: 36-year-old female who presents initially as a stroke alert. According to EMS report the patient has a history of fungal endocarditis with previous IVDA. EMS states that the patient is currently on hospice, however, they are unsure if the patient is a DNR. EMS states the patient apparently complained of a headache earlier today, was found lying on the floor and incontinent of stool at approximate, last seen normal at 6:45 PM. Therefore, EMS called a stroke alert in the field as the patient was aphasic and confused. Upon arrival the patient groans, moves all 4 extremities and withdraws all 4 extremities, but is unable to provide any information. She was intubated in the emergency department by ER attending for airway protection. 02/27: remains encephalopathic. Blood cultures growing Staph in 4/ bottles. 02/28: Remains sedated/ encephalopathic, orally intubated on mechanical ventilation. 03/01: still in shock on vasopressors. grossly volume overloaded and intravascularly volume overloaded based on echo and clinically. needs aggressive diuresis, but still in shock. family made patient DNR last night, but want to continue aggressive therapies. still encephalopathic. no significant improvements. 03/02: seen and examined at around 06:45am. delayed note entry. remains encephalopathic. no significant changes. unlikely to survive hospital stay, no additional overall therapies. family wants aggressive treatment. diuresing on bumex drip. net 3.3L negative. still volume overloaded. 03/03: Tmax 102.8 This am patient went into SVT rhythm heart rate 190's. Cooling blanket placed, ice packs in place, metoprolol 5 mg IV push given, resolution heart rate mid 90s, MAP ranges 66-68. Ofirmev ordered. Bumex infusion discontinued secondary to elevation in creatinine. Chest x-ray pending. 03/04: Continues to be febrile, continues on cooling blanket. Propofol was discontinued secondary to hypotension. Today the patient continues on Versed and fentanyl infusions with the RASS -2. Patient currently GCS of 11 T, responsive. The patient tolerated CPAP trials for approximately 2.5 hours for the last 2 days. 03/05: Somewhat agitated this AM. Remains in sinus tachycardia. On PSV trials 1.5 hours today. Tolerating tube feeding. Tmax 101.4. 03/06: Low-grade fevers overnight. Currently afebrile. Remains on Precedex, Versed and fentanyl drips for sedation. On PSV trial 2 hours so far. Tolerating tube feeds. 03/07: Regular. Requesting extubation DO NOT INTUBATE hospice today. Patient actually is doing well on her weaning trials. If passes wean parameters. We' ll attempt extubation today. Subjective: 03/08: Extubated yesterday approximately 1 hour 30 minutes. During that time, patient stated she wanted to be a full code. This was in conflict which she had stated earlier while on Precedex drip. Patient is currently full code. Possible stridor according to RN which brought about intubation by overnight sales process manager. Currently awake and alert and following commands room Objective Vital Signs Date Time Temp Pulse Resp B/P (MAP) Pulse Ox O2 Delivery O2 Flow Rate FiO2 03/08/17 07:39 100 35 03/08/17 06:00 92 03/08/17 04:00 99.2 16 111/75 (87) Intake and Output 03/08/17 03/08/17 03/09/17 08:00 16:00 00:00 Intake Total 2125 ml Output Total 850 ml Balance 1275 ml Result Diagram: 03/08/17 0537 03/08/17 0537 Other Results Microbiology Date/Time Source Procedure Growth Status 03/05/17 16:55 Blood Peripheral Aerobic Blood Culture - Preliminary NO GROWTH IN 2 DAYS Resulted 03/05/17 16:55 Blood Peripheral Anaerobic Blood Culture - Preliminary NO GROWTH IN 2 DAYS Resulted 02/26/17 22:00 Cerebral Spinal Fluid Lumbar Puncture Fungal Smear - Final NO FUNGAL ELEMENTS SEEN. Resulted 02/26/17 22:00 Cerebral Spinal Fluid Lumbar Puncture Fungal Culture - Preliminary NO GROWTH IN 1 WEEK Resulted 03/01/17 21:15 Sputum Endotracheal Gram Stain - Final Complete 03/01/17 21:15 Sputum Endotracheal Sputum Culture - Final RARE GROWTH NORMAL RESPIRATORY PATRICIA Complete Imaging Last Impressions Chest X-Ray 03/05/17 0600 Signed Impressions: Service Date/Time: Sunday, March 05, 2017 03:28 - CONCLUSION: Stable chest x-ray with underinflation. No acute finding is identified. Adalid Galo MD Brain MRI 03/02/17 0000 Signed Impressions: Service Date/Time: Thursday, March 02, 2017 17:07 - CONCLUSION: 1. Small acute or subacute cortical infarct of the left parietal lobe. 2. Small, faint area of nonspecific flair signal abnormality in the left frontal lobe periventricular white matter, nonspecific. No associated mass effect or abnormal enhancement. 3 month followup MRI of the brain recommended. 3. Mild chronic white matter changes. Adalid Perry MD Head CT 02/26/17 0000 Signed Impressions: Service Date/Time: Sunday, February 26, 2017 19:47 - CONCLUSION: No evidence of acute infarct, hemorrhage, mass or edema. Ken Sanchez MD Objective Remarks GENERAL: 36-year-old female, critically ill currently resting in bed orotracheally intubated SKIN: Warm and dry. Livedo reticularis noted on peripheral extremities HEAD: Normocephalic. EYES: No scleral icterus. No injection or drainage. NECK: trachea midline. No JVD CARDIOVASCULAR: Tachycardic, RR. S1, S2 no S4. Without murmur RESPIRATORY: Essentially clear to auscultation without wheezes rales or rhonchi GASTROINTESTINAL: Abdomen soft, non-tender, nondistended. no guarding. MUSCULOSKELETAL: 1 + peripheral edema. Generalized anasarca. Multiple petechiae and ecchymotic bruising secondary to most likely septic emboli NEURO EXAM: GCS 11T. Follows commands, moves extremities 4. Motor strength 5/ 5 bilateral upper and lower extremity. Cranial nerves II-XII grossly intact. A/P Assessment and Plan Neuro/Psych Acute Encephalopathy Acute meningitis, possible bacterial Left parietal/frontal CVA Patient is currently on Versed drip at 10 mg an hour fentanyl drip at 250 mcg an hour for sedation/analgesia while intubated Goal of RA SS -2 Daily sedation vacation - LP with elevated protein, and low glucose relative to serum glucose. - CT head negative -MRI-small acute and subacute cortical infarct of left parietal lobe - Neuro checks per unit protocol Acetaminophen for fever Evaluated by neurology Resp: Acute hypoxic and hypercarbic Respiratory failure ACV 14/35 Ventilator bundle As needed albuterol therapy Spontaneous breathing trials daily ordered CT neck rule out airway edema Cardiac SVT Sinus tachycardia Mixed Septic/cardiogenic Shock Acute congestive heart failure secondary to valvulopathy Tricuspid Regurgitation - Metoprolol 2.5 mg every 6 hours when necessary heart rate greater than 100 bpm Echocardiogram 02/22 revealed EF 25-30%. PAP 34 mmHg. Currently off all vasopressors. ID: History of fungal endocarditis Staph Bacteremia Tricuspid valve infective endocarditis - History of IVDA - Broad-spectrum antibiotic with oxiaccillin, ampicillin, gentamicin and rifampin - Infectious disease following, Dr. Spaulding RENAL: Acute Kidney Injury - resolved -secondary to shock - Strict I and O's - pedroza catheter GI" Acute Protein calorie malnutrition- severe - secondary to long-standing IVDA and endocarditis - continue TF Jevity 1.5 currently at goal 55 cc/hour-minimal residuals Famotidine for GI prophylaxis Docusate sodium/senna for bowel regimen HEME: Microcytic anemia Monitor CBC daily. Follow trends Endo Hyperglycemia critical illness Sliding scale insulin to maintain euglycemia FEN: Hypernatremia Additional free water flushes 300 every 8 hours. Add a quarter normal saline 2 L. Recheck in AM. DVT GI prophylaxis - Teds SCDs - Subcutaneous heparin -Famotidine Dispo: Discussed with ACTUARIAL TECHNICIAN and significant other at bedside. Level II follow-up Francis Dominguez MD Mar 08, 2017 10:11
[2017-03-08] MEDS: HEPARIN SODIUM - SQ 10,000 UNITS/ML VIAL SQ SCH ×2 (12:01→21:35)
--- NOTE | 2017-03-08 12:25 | RADRPT ---
EXAM DATE/TIME: 03/08/2017 10:10 [facility] COMPARISON: CHEST SINGLE AP, March 05, 2017, 3:28. INDICATIONS : Post intubation MEDICAL HISTORY : endocarditis, pneumonia, poly substance abuse, renal failure SURGICAL HISTORY : CABG. ENCOUNTER: Subsequent ACUITY: 2 months PAIN SCORE: Non-responsive. LOCATION: Bilateral chest FINDINGS: Endotracheal tube is present with tip a couple of centimeters above the juan. Nasogastric tube desc ends into the stomach. A left subclavian central line is present with tip overlying SVC. There is mil d parenchymal opacity most notably in the left lung base. No evidence of effusion. Cardiac contours a re grossly satisfactory. CONCLUSION: Satisfactory support line and tube positioning. Mild infiltrate most mobile in the left lung base. Adalid Dallas MD on March 08, 2017 at 12:22 Board Certified Radiologist. This report was verified electronically.
[2017-03-08] MEDS: GENTAMICIN/SOD CHL 80 MG/100 ML IV SCH (13:20)
[2017-03-08] MEDS: DEXAMETHASONE SOD PHOS 4 MG/ML VIAL IV PUSH SCH ×2 (13:20→21:35)
--- NOTE | 2017-03-08 13:46 | HHI.HCPN ---
Reason for visit a. To assist with evaluation and management of symptoms including: dyspnea, b. To assist medical decision maker(s) with: better understanding of current medical conditions; weighing benefits/burdens of medical treatment options; making medical treatment decisions. . Subjective/Interval History Patient seen and examine in ICU. Eyes open, alert and interactive following commands. Able to nod yes and no to questions, and able to write a bit. She is able to nod yes correctly if she was in [place]. She is able to shake no if the gavin is green color on a clear elisa day. Pt had a change of mind in terms of code status, and change to full code. On my visit, ID physician also present part of the time, and pt was able to follow commands. 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 She did say repeat culture is negative. Unless more positive blood clx anticipate 6 week from 1st neg (03/01) followed by likey, indefinite oral abx suppression tx I spoke with patient about goals of care. Her main challenges including her secretions. She endores if she was extubated again, and need reintubation, she would do it. She endorse she is willing to take tracheostomy if necessary. Goals are aggressive. I ask her if it was okay I called her mother and informed of her clinical status and decision she state yes. She's also is amenable for mother to make medical decisions should she become incapacitated. Family/friend interactions Spoke with mother and updated her on her decision. She is grateful for phone call. Advance Directives Living Will: Never completed Health Care Surrogate: Never completed Durable Power of [employer] System Operator: Never completed Advance Directive Specifics Health Care Surrogate(s): No known written advanced directives, family is going to try to find HCS paperwork they think pt previously completed. Patient a single. Children are juvenile. If no written advanced directives, according to [place] statutes health care proxy decision-making falls to a parent. . Objective Vital Signs Date Time Temp Pulse Resp B/P (MAP) Pulse Ox O2 Delivery O2 Flow Rate FiO2 03/08/17 10:54 99 35 03/08/17 08:00 97 03/08/17 08:00 35 03/08/17 08:00 100.0 97 18 122/75 (91) 98 03/08/17 07:39 100 35 8/31/17 06:00 92 03/08/17 04:04 99 35 03/08/17 04:00 35 03/08/17 04:00 99.2 82 16 111/75 (87) 98 03/08/17 04:00 82 03/08/17 02:07 99 35 03/08/17 02:00 96 03/08/17 00:00 90 03/08/17 00:00 35 03/08/17 00:00 98.7 90 19 112/76 (88) 100 03/07/17 23:05 100 35 03/07/17 22:00 88 03/07/17 22:00 40 03/07/17 20:30 100 40 03/07/17 20:00 50 03/07/17 20:00 101 03/07/17 20:00 99.0 101 19 101/63 (76) 100 03/07/17 18:34 93 50 03/07/17 18:00 111 03/07/17 16:00 100.2 93 20 126/81 (96) 100 03/07/17 16:00 93 03/07/17 14:00 107 Intake & Output 03/08/17 03/08/17 07:00 19:00 Intake Total 2536 ml Output Total 850 ml Balance 1686 ml IV Total 1936 ml Other 600 ml Output Urine Total 850 ml Physical Exam CONSTITUTIONAL/GENERAL: This is an adequately nourished patient, on mechanical ventilation. TUBES/LINES/DRAINS: ETT, NG, left subclavian central line, PIV right AC, Watson, SCDs. SKIN: Febrile. Multiple purple lesions bilateral feet. ENT: Hearing appears grossly normal. Nose with NG tube right nare. Throat difficult to visualize due to ETT. CARDIOVASCULAR: tachycardic, regular rhythm. RESPIRATORY/CHEST: Symmetric, unlabored respirations on vent. lungs clear. GASTROINTESTINAL: Abdomen soft, mild distended. Bowel sounds active. GENITOURINARY: Without palpable bladder distension. Watson catheter in place. MUSCULOSKELETAL: Extremities without clubbing. + edema. NEUROLOGICAL: Awake and alert, tracking. Nods yes/no to questions. Writes in notebook to communicate needs. Follows commands. PSYCHIATRIC: somewhat exious.. . Diagnostic Tests Laboratory Laboratory Tests Test 03/06/17 05:30 03/07/17 06:36 03/08/17 05:37 03/08/17 12:07 White Blood Count 7.1 TH/MM3 (4.0-11.0) 8.7 TH/MM3 (4.0-11.0) 8.5 TH/MM3 (4.0-11.0) Red Blood Count 2.97 MIL/MM3 (4.00-5.30) 3.29 MIL/MM3 (4.00-5.30) 3.18 MIL/MM3 (4.00-5.30) Hemoglobin 7.4 GM/DL (11.6-15.3) 8.0 GM/DL (11.6-15.3) 7.6 GM/DL (11.6-15.3) Hematocrit 22.3 % (35.0-46.0) 25.2 % (35.0-46.0) 24.0 % (35.0-46.0) Mean Corpuscular Volume 75.3 FL (80.0-100.0) 76.5 FL (80.0-100.0) 75.5 FL (80.0-100.0) Mean Corpuscular Hemoglobin 24.8 PG (27.0-34.0) 24.3 PG (27.0-34.0) 23.9 PG (27.0-34.0) Mean Corpuscular Hemoglobin Concent 32.9 % (32.0-36.0) 31.8 % (32.0-36.0) 31.6 % (32.0-36.0) Red Cell Distribution Width 16.6 % (11.6-17.2) 16.8 % (11.6-17.2) 16.5 % (11.6-17.2) Platelet Count 292 TH/MM3 (150-450) 353 TH/MM3 (150-450) 419 TH/MM3 (150-450) Mean Platelet Volume 8.4 FL (7.0-11.0) 8.4 FL (7.0-11.0) 8.0 FL (7.0-11.0) Neutrophils (%) (Auto) 79.0 % (16.0-70.0) 82.4 % (16.0-70.0) Lymphocytes (%) (Auto) 11.0 % (9.0-44.0) 8.8 % (9.0-44.0) Monocytes (%) (Auto) 7.2 % (0.0-8.0) 6.7 % (0.0-8.0) Eosinophils (%) (Auto) 2.1 % (0.0-4.0) 1.6 % (0.0-4.0) Basophils (%) (Auto) 0.7 % (0.0-2.0) 0.5 % (0.0-2.0) Neutrophils # (Auto) 5.6 TH/MM3 (1.8-7.7) 7.2 TH/MM3 (1.8-7.7) Lymphocytes # (Auto) 0.8 TH/MM3 (1.0-4.8) 0.8 TH/MM3 (1.0-4.8) Monocytes # (Auto) 0.5 TH/MM3 (0-0.9) 0.6 TH/MM3 (0-0.9) Eosinophils # (Auto) 0.2 TH/MM3 (0-0.4) 0.1 TH/MM3 (0-0.4) Basophils # (Auto) 0.1 TH/MM3 (0-0.2) 0.0 TH/MM3 (0-0.2) CBC Comment DIFF FINAL DIFF FINAL Differential Comment Blood Urea Nitrogen 31 MG/DL (7-18) 29 MG/DL (7-18) 26 MG/DL (7-18) Creatinine 1.24 MG/DL (0.50-1.00) 1.27 MG/DL (0.50-1.00) 1.22 MG/DL (0.50-1.00) Random Glucose 146 MG/DL (74-106) 137 MG/DL (74-106) 89 MG/DL (74-106) Calcium Level 8.3 MG/DL (8.5-10.1) 8.6 MG/DL (8.5-10.1) 8.9 MG/DL (8.5-10.1) Phosphorus Level 5.8 MG/DL (2.5-4.9) 5.0 MG/DL (2.5-4.9) Magnesium Level 2.6 MG/DL (1.5-2.5) 2.7 MG/DL (1.5-2.5) Sodium Level 153 MEQ/L (136-145) 153 MEQ/L (136-145) 150 MEQ/L (136-145) Potassium Level 3.1 MEQ/L (3.5-5.1) 3.6 MEQ/L (3.5-5.1) 3.4 MEQ/L (3.5-5.1) Chloride Level 118 MEQ/L (98-107) 118 MEQ/L (98-107) 115 MEQ/L (98-107) Carbon Dioxide Level 25.8 MEQ/L (21.0-32.0) 24.6 MEQ/L (21.0-32.0) 24.0 MEQ/L (21.0-32.0) Anion Gap 9 MEQ/L (5-15) 10 MEQ/L (5-15) 11 MEQ/L (5-15) Estimat Glomerular Filtration Rate 49 ML/MIN (>89) 48 ML/MIN (>89) 50 ML/MIN (>89) Total Protein 7.3 GM/DL (6.4-8.2) Albumin 2.1 GM/DL (3.4-5.0) Alkaline Phosphatase 78 U/L (45-117) Aspartate Amino Transf (AST/SGOT) 18 U/L (15-37) Alanine Aminotransferase (ALT/SGPT) 8 U/L (10-53) Total Bilirubin 0.4 MG/DL (0.2-1.0) Ammonia 22 MCMOL/L (11-32) Result Diagram: 03/08/17 0537 03/08/17 0537 Microbiology Microbiology Date/Time Source Procedure Growth Status 03/05/17 16:55 Blood Peripheral Aerobic Blood Culture - Preliminary NO GROWTH IN 3 DAYS Resulted 03/05/17 16:55 Blood Peripheral Anaerobic Blood Culture - Preliminary NO GROWTH IN 3 DAYS Resulted 03/05/17 16:48 Blood Peripheral Aerobic Blood Culture - Preliminary NO GROWTH IN 3 DAYS Resulted 03/05/17 16:48 Blood Peripheral Anaerobic Blood Culture - Preliminary NO GROWTH IN 3 DAYS Resulted Imaging Last Impressions Chest X-Ray 03/08/17 0000 Signed Impressions: Service Date/Time: February 10:10 - CONCLUSION: Satisfactory support line and tube positioning. Mild infiltrate most mobile in the left lung base. Adalid Dallas MD Brain MRI 03/02/17 0000 Signed Impressions: Service Date/Time: Thursday, March 02, 2017 17:07 - CONCLUSION: 1. Small acute or subacute cortical infarct of the left parietal lobe. 2. Small, faint area of nonspecific flair signal abnormality in the left frontal lobe periventricular white matter, nonspecific. No associated mass effect or abnormal enhancement. 3 month followup MRI of the brain recommended. 3. Mild chronic white matter changes. Adalid Perry MD Head CT 02/26/17 0000 Signed Impressions: Service Date/Time: Sunday, February 26, 2017 19:47 - CONCLUSION: No evidence of acute infarct, hemorrhage, mass or edema. Ken Sanchez MD Procedures * 02/26/17 - left subclavian central placement. * 02/26/17 - lumbar puncture * 02/26/17 - Intubated. . Assessment and Plan Disease Oriented Problem List: (1) Protein-calorie malnutrition, severe (2) Elevated troponin (3) Meningitis (4) Encephalopathy (5) Bacterial endocarditis (6) Polysubstance abuse (7) Sepsis (8) Acute kidney injury Symptom Scale: (1) Pain 0-10 Scale: Unable to quantify (2) Dyspnea 0-10 Scale: Unable to quantify Comment: secretions (3) Agitation 0-10 Scale: Unable to quantify Pertinent Non-Medical Issues Psychosocial: single. 2 juvenile children. Supported by mother, stepfather and boyfriend. Spiritual: Unknown. Legal: patient is incapacitated. No written advanced directives. Patient a single. Children are juvenile. According to [place] statutes health care proxy decision-making falls to a parent. Ethical issues impacting care: No known concerns at this time. . Important Contacts * Fany Nielsen, mother: [phone] * Karsten Nielsen, stepfather: [phone] . Prognosis Prognosis poor. Code Status: Full Code Plan * capacity flutuates. She is cooperative and looks to have capacity to make medical decision, especially in terms of code status. Prior there is a degree where she refuses to answer, but she is very cooperative on my visit. * Decision Maker: mother per [place] statutes. Pt today indicated she is amenable for mother to be decision maker should she become incapacitated again * She endorses Full Code. * Goals of care are aggressive. She met with ID during part of the meeting. Today she endorse continue medical care, and if she needs reintubation, she would want it. She said she is also amenable to trach, as she had before. * SYMPTOMS: Pain: nods yes to pain in throat. No new med rec at this time. Dyspnea- secretions. no new med rec. Decadron intiated. * Palliative care will continue to follow throughout hospital course to assist with symptom management and clarification of goals as needed. . Time Spent Total Floor Time (mins): 38 Face to Face Time (mins): 20 >50% Counseling/Coord of Care: Yes Attestation To help prompt me to consider important information that might be impacting today's encounter and assessment, information from prior notes written by myself or my colleagues may have been "brought forward" into today's note. My signature on this note, however, is an attestation that I personally performed the exam, history, and/or decision-making noted today, and, unless otherwise indicated, the interactions with patient, family, and staff as well as the review of records all occurred today. I also attest that the listed assessment and stated plan reflect my best clinical judgment today based on the combination of historical information, prior notes, and today's exam/ interactions. When time spent is documented, it refers only to time spent today by the signer, or if indicated, combined time spent today by collaborating physician/nurse practitioner. Ashish Gonzalez MD Mar 08, 2017 13:46
[2017-03-08] MEDS: MIDAZOLAM 100 MG/NS 100 ML DRIP Premix IV PRN (13:55)
--- NOTE | 2017-03-08 14:31 | HHI.IDPN ---
Subjective Subjective Remarks low grade fever BC are negative @ 3 days large amount of thin ETT secretions creatinine is stable Antibiotics ampicillin oxacillin gent rifampin Allergies: Coded Allergies: No Known Allergies (Verified , 09/01/15) Objective . Vital Signs Date Time Temp Pulse Resp B/P (MAP) Pulse Ox O2 Delivery O2 Flow Rate FiO2 03/08/17 10:54 99 35 03/08/17 08:00 97 03/08/17 08:00 35 03/08/17 08:00 100.0 97 18 122/75 (91) 98 03/08/17 07:39 100 35 03/08/17 06:00 92 03/08/17 04:04 99 35 03/08/17 04:00 35 03/08/17 04:00 99.2 82 16 111/75 (87) 98 03/08/17 04:00 82 03/08/17 02:07 99 35 03/08/17 02:00 96 03/08/17 00:00 90 03/08/17 00:00 35 03/08/17 00:00 98.7 90 19 112/76 (88) 100 03/07/17 23:05 100 35 03/07/17 22:00 88 03/07/17 22:00 40 03/07/17 20:30 100 40 03/07/17 20:00 50 03/07/17 20:00 101 03/07/17 20:00 99.0 101 19 101/63 (76) 100 03/07/17 18:34 93 50 03/07/17 18:00 111 03/07/17 16:00 100.2 93 20 126/81 (96) 100 03/07/17 16:00 93 . Laboratory Tests Test 03/07/17 06:36 03/08/17 05:37 White Blood Count 8.7 TH/MM3 8.5 TH/MM3 Red Blood Count 3.29 MIL/MM3 3.18 MIL/MM3 Hemoglobin 8.0 GM/DL 7.6 GM/DL Hematocrit 25.2 % 24.0 % Mean Corpuscular Volume 76.5 FL 75.5 FL Mean Corpuscular Hemoglobin 24.3 PG 23.9 PG Mean Corpuscular Hemoglobin Concent 31.8 % 31.6 % Red Cell Distribution Width 16.8 % 16.5 % Platelet Count 353 TH/MM3 419 TH/MM3 Mean Platelet Volume 8.4 FL 8.0 FL Neutrophils (%) (Auto) 82.4 % Lymphocytes (%) (Auto) 8.8 % Monocytes (%) (Auto) 6.7 % Eosinophils (%) (Auto) 1.6 % Basophils (%) (Auto) 0.5 % Neutrophils # (Auto) 7.2 TH/MM3 Lymphocytes # (Auto) 0.8 TH/MM3 Monocytes # (Auto) 0.6 TH/MM3 Eosinophils # (Auto) 0.1 TH/MM3 Basophils # (Auto) 0.0 TH/MM3 CBC Comment DIFF FINAL Differential Comment Laboratory Tests Test 03/07/17 06:36 03/08/17 05:37 03/08/17 12:07 Blood Urea Nitrogen 29 MG/DL 26 MG/DL Creatinine 1.27 MG/DL 1.22 MG/DL Random Glucose 137 MG/DL 89 MG/DL Total Protein 7.3 GM/DL Albumin 2.1 GM/DL Calcium Level 8.6 MG/DL 8.9 MG/DL Phosphorus Level 5.0 MG/DL Magnesium Level 2.7 MG/DL Alkaline Phosphatase 78 U/L Aspartate Amino Transf (AST/SGOT) 18 U/L Alanine Aminotransferase (ALT/SGPT) 8 U/L Total Bilirubin 0.4 MG/DL Sodium Level 153 MEQ/L 150 MEQ/L Potassium Level 3.6 MEQ/L 3.4 MEQ/L Chloride Level 118 MEQ/L 115 MEQ/L Carbon Dioxide Level 24.6 MEQ/L 24.0 MEQ/L Anion Gap 10 MEQ/L 11 MEQ/L Estimat Glomerular Filtration Rate 48 ML/MIN 50 ML/MIN Ammonia 22 MCMOL/L Microbiology Date/Time Source Procedure Growth Status 03/05/17 16:55 Blood Peripheral Aerobic Blood Culture - Preliminary NO GROWTH IN 3 DAYS Resulted 03/05/17 16:55 Blood Peripheral Anaerobic Blood Culture - Preliminary NO GROWTH IN 3 DAYS Resulted 03/05/17 16:48 Blood Peripheral Aerobic Blood Culture - Preliminary NO GROWTH IN 3 DAYS Resulted 03/05/17 16:48 Blood Peripheral Anaerobic Blood Culture - Preliminary NO GROWTH IN 3 DAYS Resulted Imaging Last Impressions Chest X-Ray 03/08/17 0000 Signed Impressions: Service Date/Time: February 10:10 - CONCLUSION: Satisfactory support line and tube positioning. Mild infiltrate most mobile in the left lung base. Adalid Dallas MD Brain MRI 03/02/17 0000 Signed Impressions: Service Date/Time: Thursday, March 02, 2017 17:07 - CONCLUSION: 1. Small acute or subacute cortical infarct of the left parietal lobe. 2. Small, faint area of nonspecific flair signal abnormality in the left frontal lobe periventricular white matter, nonspecific. No associated mass effect or abnormal enhancement. 3 month followup MRI of the brain recommended. 3. Mild chronic white matter changes. Adalid Perry MD Head CT 02/26/17 0000 Signed Impressions: Service Date/Time: Sunday, February 26, 2017 19:47 - CONCLUSION: No evidence of acute infarct, hemorrhage, mass or edema. Ken Sanchez MD Physical Exam CONSTITUTIONAL/GENERAL: This is an adequately nourished patient, in no apparent distress. Sedated, int'd on mech vent TUBES/LINES/DRAINS: SKIN: No jaundice, rashes, or lesions. Skin temperature appropriate. Not diaphoretic. multiple embolic lesions cw septic embolization involving L lower leg and both feet - evolving No new ones noted HEAD: Atraumatic. Normocephalic. EYES: Pupils small non reactive equal and round . No scleral icterus. No injection or drainage. Fundi not examined. CARDIOVASCULAR: Regular rate and rhythm without murmurs, gallops, or rubs. Mechanical heart sounds No JVD. Peripheral pulses symmetric. RESPIRATORY/CHEST: Symmetric, unlabored respirations. Diffuse rhonchi to auscultation. Breath sounds equal bilaterally. GASTROINTESTINAL: Abdomen soft, non-tender, moderately distended. No hepato- splenomegaly, or palpable masses. No guarding. Bowel sounds present, hypoactive Incontinent of liquid brown stool GENITOURINARY: Without palpable bladder distension. 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 cardiac injury from infx Critically ill , more stable Poor prognosis Not a surgical candidate ? PNA, clx negative - worsening secretions New fever fu repeat blood clx untill final - chk diff to monitor eosinophilia which can be aw curretn abx Rx cont oxacillin + gentamin +RIfampin - switch to oral ruifampin cont ampicillin for Enterococci fu repeat blood clx monitor closely creatinint and LFTs (2-3x/week) Unless more positive blood clx anticipate 6 week from 1st neg (03/01) followed by indefinite oral abx suppression tx chk stool for C.diff - chk sputum clx dw RN Swati Man MD Mar 08, 2017 14:31
[2017-03-08] MEDS: RIFAMPIN 150 MG CAP PO SCH (20:27)
[2017-03-09] VITALS (18 sets, daily range): BP systolic 115–130; BP diastolic 72–84; PULSE 67–93; RESP 20–22; TEMP 97.7–98.7; O2SAT 93–100
[2017-03-09] MEDS: GENTAMICIN/SOD CHL 80 MG/100 ML IV SCH ×2 (00:15→14:05)
[2017-03-09] MEDS: AMPICILLIN INJ 2,000 MG in SODIUM CHLORIDE 0.9% INJ 100 ML IV SCH ×6 (00:16→20:20)
[2017-03-09] MEDS: fentaNYL 2,500 MCG/NS 250 ML IV PRN (00:17)
[2017-03-09] MEDS: OXACILLIN INJ 2 GM in SODIUM CHLORIDE 0.9% INJ 100 ML IV SCH ×6 (01:44→22:27)
[2017-03-09] MEDS: CHLORHEXIDINE GLUCONATE 2 % 1 PACK (2 CLOTHS) TOP SCH (04:00)
[2017-03-09 04:44] LABS: AUTOMATED NEUTROPHIL # 6.3 TH/MM3 (1.8-7.7); BASOPHIL # 0.1 TH/MM3 (0-0.2); BASOPHIL % 1.1 % (0.0-2.0); EOSINOPHIL % 0.5 % (0.0-4.0); HEMATOCRIT 24.5 % (35.0-46.0); HEMO FLAGS DIFF FINAL; LYMPH % 12.8 % (9.0-44.0); MEAN CELL VOLUME 75.5 FL (80.0-100.0); MEAN CORPUSCULAR HEMOGLOBIN 24.4 PG (27.0-34.0); MEAN CORPUSCULAR HGB CONC 32.3 % (32.0-36.0); MONO % 4.9 % (0.0-8.0); NEUT % 80.7 % (16.0-70.0); PLATELET COUNT 401 TH/MM3 (150-450); RED BLOOD COUNT 3.25 MIL/MM3 (4.00-5.30); RED CELL DISTRIBUTION WIDTH 16.5 % (11.6-17.2); WHITE BLOOD COUNT 7.8 TH/MM3 (4.0-11.0)
[2017-03-09 05:05] LABS: BICARBONATE 22.6 MEQ/L (21.0-32.0); MAGNESIUM 2.2 MG/DL (1.5-2.5); POTASSIUM 3.7 MEQ/L (3.5-5.1)
[2017-03-09] MEDS: FREE WATER G-TUBE SCH ×3 (06:00→22:00)
[2017-03-09] MEDS: DEXAMETHASONE SOD PHOS 4 MG/ML VIAL IV PUSH SCH ×3 (06:43→22:28)
[2017-03-09] MEDS: RESP: ALBUTEROL 2.5 MG/IPRATROPIUM 0.5 MG NEB (PRN) INH (07:37)
[2017-03-09] MEDS: FAMOTIDINE 20 MG/2 ML VIAL IV PUSH SCH ×2 (08:45→20:20)
[2017-03-09] MEDS: ARTIFICIAL TEARS OPTH SOLN 15 ML BTL EACH EYE SCH ×3 (08:45→18:00)
[2017-03-09] MEDS: SODIUM CHLORIDE 0.9% FLUSH 10 ML FLUSH IV FLUSH SCH ×2 (08:45→20:20)
[2017-03-09] MEDS: DOCUSATE SODIUM 50 MG/SENNA 8.6 MG TAB PO SCH ×2 (08:46→21:00)
[2017-03-09] MEDS: RIFAMPIN 150 MG CAP PO SCH ×2 (08:46→20:21)
[2017-03-09 09:01] LABS: C. DIFF EPI 027 PRESUMPTIVE NEGATIVE (NEGATIVE)
--- NOTE | 2017-03-09 10:40 | HHI.CCPN ---
Subjective Remarks/Hospital Course Hospital Course: 36-year-old female who presents initially as a stroke alert. According to EMS report the patient has a history of fungal endocarditis with previous IVDA. EMS states that the patient is currently on hospice, however, they are unsure if the patient is a DNR. EMS states the patient apparently complained of a headache earlier today, was found lying on the floor and incontinent of stool at approximate, last seen normal at 6:45 PM. Therefore, EMS called a stroke alert in the field as the patient was aphasic and confused. Upon arrival the patient groans, moves all 4 extremities and withdraws all 4 extremities, but is unable to provide any information. She was intubated in the emergency department by ER attending for airway protection. 02/27: remains encephalopathic. Blood cultures growing Staph in 4/ bottles. 02/28: Remains sedated/ encephalopathic, orally intubated on mechanical ventilation. 03/01: still in shock on vasopressors. grossly volume overloaded and intravascularly volume overloaded based on echo and clinically. needs aggressive diuresis, but still in shock. family made patient DNR last night, but want to continue aggressive therapies. still encephalopathic. no significant improvements. 03/02: seen and examined at around 06:45am. delayed note entry. remains encephalopathic. no significant changes. unlikely to survive hospital stay, no additional overall therapies. family wants aggressive treatment. diuresing on bumex drip. net 3.3L negative. still volume overloaded. 03/03: Tmax 102.8 This am patient went into SVT rhythm heart rate 190's. Cooling blanket placed, ice packs in place, metoprolol 5 mg IV push given, resolution heart rate mid 90s, MAP ranges 66-68. Ofirmev ordered. Bumex infusion discontinued secondary to elevation in creatinine. Chest x-ray pending. 03/04: Continues to be febrile, continues on cooling blanket. Propofol was discontinued secondary to hypotension. Today the patient continues on Versed and fentanyl infusions with the RASS -2. Patient currently GCS of 11 T, responsive. The patient tolerated CPAP trials for approximately 2.5 hours for the last 2 days. 03/05: Somewhat agitated this AM. Remains in sinus tachycardia. On PSV trials 1.5 hours today. Tolerating tube feeding. Tmax 101.4. 03/06: Low-grade fevers overnight. Currently afebrile. Remains on Precedex, Versed and fentanyl drips for sedation. On PSV trial 2 hours so far. Tolerating tube feeds. 03/07: Regular. Requesting extubation DO NOT INTUBATE hospice today. Patient actually is doing well on her weaning trials. If passes wean parameters. We' ll attempt extubation today. 03/08: Extubated yesterday approximately 1 hour 30 minutes. During that time, patient stated she wanted to be a full code. This was in conflict which she had stated earlier while on Precedex drip. Patient is currently full code. Possible stridor according to RN which brought about intubation by overnight beef pusher. Currently awake and alert and following commands room Subjective: 03/09: Pending CT neck. Afebrile. Remains on full ventilator support. Awake and alert and following commands. tube feedings resumed. Objective Vital Signs Date Time Temp Pulse Resp B/P (MAP) Pulse Ox O2 Delivery O2 Flow Rate FiO2 03/09/17 08:00 77 03/09/17 08:00 97.7 20 129/82 (98) 100 03/09/17 08:00 35 Intake and Output 03/09/17 03/09/17 03/09/17 07:59 15:59 23:59 Intake Total 1952 ml Output Total 925 ml Balance 1027 ml Result Diagram: 03/09/17 0415 03/09/17 0415 Other Results Microbiology Date/Time Source Procedure Growth Status 03/05/17 16:55 Blood Peripheral Aerobic Blood Culture - Preliminary NO GROWTH IN 3 DAYS Resulted 03/05/17 16:55 Blood Peripheral Anaerobic Blood Culture - Preliminary NO GROWTH IN 3 DAYS Resulted 02/26/17 22:00 Cerebral Spinal Fluid Lumbar Puncture Fungal Smear - Final NO FUNGAL ELEMENTS SEEN. Resulted 02/26/17 22:00 Cerebral Spinal Fluid Lumbar Puncture Fungal Culture - Preliminary NO GROWTH IN 1 WEEK Resulted 03/08/17 22:00 Sputum Endotracheal Gram Stain - Final Resulted 03/08/17 22:00 Sputum Endotracheal Sputum Culture Pending Resulted Imaging Last Impressions Chest X-Ray 03/08/17 0000 Signed Impressions: Service Date/Time: , March 08, 2017 10:10 - CONCLUSION: Satisfactory support line and tube positioning. Mild infiltrate most mobile in the left lung base. Adalid Dallas MD Brain MRI 03/02/17 0000 Signed Impressions: Service Date/Time: Thursday, March 02, 2017 17:07 - CONCLUSION: 1. Small acute or subacute cortical infarct of the left parietal lobe. 2. Small, faint area of nonspecific flair signal abnormality in the left frontal lobe periventricular white matter, nonspecific. No associated mass effect or abnormal enhancement. 3 month followup MRI of the brain recommended. 3. Mild chronic white matter changes. Adalid Perry MD Head CT 02/26/17 0000 Signed Impressions: Service Date/Time: Sunday, February 26, 2017 19:47 - CONCLUSION: No evidence of acute infarct, hemorrhage, mass or edema. Ken Sanchez MD Objective Remarks GENERAL: 36-year-old female, critically ill currently resting in bed orotracheally intubated SKIN: Warm and dry. Livedo reticularis noted on peripheral extremities HEAD: Normocephalic. EYES: No scleral icterus. No injection or drainage. NECK: trachea midline. No JVD CARDIOVASCULAR: Tachycardic, RR. S1, S2 no S4. Without murmur RESPIRATORY: Essentially clear to auscultation without wheezes rales or rhonchi GASTROINTESTINAL: Abdomen soft, non-tender, nondistended. no guarding. MUSCULOSKELETAL: 1 + peripheral edema. Generalized anasarca. Multiple petechiae and ecchymotic bruising secondary to most likely septic emboli NEURO EXAM: GCS 11T. Follows commands, moves extremities 4. Motor strength 5/ 5 bilateral upper and lower extremity. Cranial nerves II-XII grossly intact. A/P Assessment and Plan Neuro/Psych Acute Encephalopathy Acute meningitis, possible bacterial Left parietal/frontal CVA Patient is currently on Versed drip at 5 mg an hour fentanyl drip at 70 mcg an hour for sedation/analgesia while intubated Goal of RA SS -2 Daily sedation vacation - LP with elevated protein, and low glucose relative to serum glucose. - CT head negative -MRI-small acute and subacute cortical infarct of left parietal lobe - Neuro checks per unit protocol Acetaminophen for fever Evaluated by neurology Resp: Acute hypoxic and hypercarbic Respiratory failure PRVV 14550/07/13/34 Ventilator bundle Albuterol/ipratropium aerosols every 6 hours with to 2 hours As needed albuterol therapy Spontaneous breathing trials daily ordered CT neck rule out airway edema On dexamethasone 4 mg IV every 8 hours 2 days Cardiac SVT Sinus tachycardia Mixed Septic/cardiogenic Shock Acute congestive heart failure secondary to valvulopathy Tricuspid Regurgitation - Metoprolol 2.5 mg every 6 hours when necessary heart rate greater than 100 bpm Echocardiogram 02/22 revealed EF 25-30%. PAP 34 mmHg. Currently off all vasopressors. ID: History of fungal endocarditis Staph Bacteremia Tricuspid valve infective endocarditis - History of IVDA - Broad-spectrum antibiotic with oxacillin, ampicillin, gentamicin and rifampin - Infectious disease following, Dr. Spaulding RENAL: Acute Kidney Injury - resolved -secondary to shock - Strict I and O's - pedroza catheter GI" Acute Protein calorie malnutrition- severe - secondary to long-standing IVDA and endocarditis - continue TF Jevity 1.5 currently at goal 55 cc/hour-minimal residuals resume today Famotidine for GI prophylaxis Docusate sodium/senna for bowel regimen HEME: Microcytic anemia Monitor CBC daily. Follow trends Endo Hyperglycemia critical illness Sliding scale insulin to maintain euglycemia FEN: Hypernatremia Additional free water flushes 300 every 8 hours. Add a quarter normal saline 2 L. Recheck in AM 146 DVT GI prophylaxis - Teds SCDs - Subcutaneous heparin -Famotidine Dispo: Discussed with FLAME ANNEALING MACHINE SETTER and significant other at bedside. Level II follow-up Francis Dominguez MD Mar 09, 2017 10:40
[2017-03-09] MEDS ORDERED: POTASSIUM CHLOR 20 MEQ PREMIX 100 ML IV ONE (12:00)
[2017-03-09] MEDS: HEPARIN SODIUM - SQ 10,000 UNITS/ML VIAL SQ SCH ×2 (14:05→22:28)
[2017-03-09] MEDS: MORPHINE SULFATE 4 MG/ML INJ IV PRN (14:51)
[2017-03-09] MEDS: RESP: ALBUTEROL 2.5 MG/IPRATROPIUM 0.5 MG NEB (SCH) NEB ×2 (16:11→21:48)
[2017-03-09] MEDS ORDERED: METHADONE HCL 10 MG/10 ML ORAL SOLUTION NG ONE (23:00)
[2017-03-10] VITALS (19 sets, daily range): BP systolic 125–147; BP diastolic 78–88; PULSE 68–84; RESP 18–20; TEMP 97.9–98.4; O2SAT 95–100
[2017-03-10] MEDS: GENTAMICIN/SOD CHL 80 MG/100 ML IV SCH ×2 (00:18→11:57)
[2017-03-10] MEDS: AMPICILLIN INJ 2,000 MG in SODIUM CHLORIDE 0.9% INJ 100 ML IV SCH ×6 (00:19→20:23)
[2017-03-10] MEDS: OXACILLIN INJ 2 GM in SODIUM CHLORIDE 0.9% INJ 100 ML IV SCH ×6 (01:54→21:29)
[2017-03-10] MEDS: RESP: ALBUTEROL 2.5 MG/IPRATROPIUM 0.5 MG NEB (SCH) NEB ×4 (03:11→21:21)
[2017-03-10] MEDS: CHLORHEXIDINE GLUCONATE 2 % 1 PACK (2 CLOTHS) TOP SCH ×2 (04:00→19:23)
[2017-03-10] MEDS: FREE WATER G-TUBE SCH ×3 (05:35→20:22)
[2017-03-10] MEDS: DEXAMETHASONE SOD PHOS 4 MG/ML VIAL IV PUSH SCH (05:50)
[2017-03-10] MEDS: fentaNYL 2,500 MCG/NS 250 ML IV PRN ×3 (06:09→20:23)
[2017-03-10] MEDS: MIDAZOLAM 100 MG/NS 100 ML DRIP Premix IV PRN ×2 (06:09→20:23)
[2017-03-10 06:12] LABS: HEMATOCRIT 25.1 % (35.0-46.0); MEAN CELL VOLUME 75.5 FL (80.0-100.0); MEAN CORPUSCULAR HEMOGLOBIN 23.7 PG (27.0-34.0); MEAN CORPUSCULAR HGB CONC 31.4 % (32.0-36.0); PLATELET COUNT 474 TH/MM3 (150-450); RED BLOOD COUNT 3.33 MIL/MM3 (4.00-5.30); RED CELL DISTRIBUTION WIDTH 16.5 % (11.6-17.2); REVIEW FLAG FINAL
[2017-03-10] MEDS: MORPHINE SULFATE 4 MG/ML INJ IV PRN ×4 (06:16→20:22)
[2017-03-10 06:27] LABS: BICARBONATE 24.2 MEQ/L (21.0-32.0); MAGNESIUM 2.2 MG/DL (1.5-2.5); POTASSIUM 3.4 MEQ/L (3.5-5.1)
[2017-03-10] MEDS: RIFAMPIN 150 MG CAP PO SCH ×2 (08:58→20:23)
[2017-03-10] MEDS: DOCUSATE SODIUM 50 MG/SENNA 8.6 MG TAB PO SCH ×2 (08:58→20:23)
[2017-03-10] MEDS: FAMOTIDINE 20 MG/2 ML VIAL IV PUSH SCH ×2 (08:59→20:22)
[2017-03-10] MEDS: SODIUM CHLORIDE 0.9% FLUSH 10 ML FLUSH IV FLUSH SCH ×2 (08:59→20:23)
[2017-03-10] MEDS: ARTIFICIAL TEARS OPTH SOLN 15 ML BTL EACH EYE SCH ×3 (09:00→17:29)
[2017-03-10] MEDS: POTASSIUM CHLOR 20 MEQ PREMIX 100 ML IV PRN ×2 (09:01→12:32)
[2017-03-10] MEDS: HEPARIN SODIUM - SQ 10,000 UNITS/ML VIAL SQ SCH ×2 (09:48→20:22)
--- NOTE | 2017-03-10 11:39 | RADRPT ---
EXAM DATE/TIME: 03/10/2017 11:13 [facility] COMPARISON: No previous studies available for comparison. INDICATIONS : Stridor and airway edema post extubation. RADIATION DOSE: 27.13 CTDIvol (mGy) MEDICAL HISTORY : Congestive hearrt failure. Hepatitis C. Endocarditis. SURGICAL HISTORY : None. ENCOUNTER: Initial ACUITY: 3 days PAIN SCORE: Non-responsive LOCATION: neck TECHNIQUE: Volumetric scanning of the neck was performed. Using automated exposure control and adjustment of th e mA and/or kV according to patient size, radiation dose was kept as low as reasonably achievable to obtain optimal diagnostic quality images. DICOM format image data is available electronically for re view and comparison. FINDINGS: There is an air-fluid level in the sphenoid sinus, and mild prominence of the nasopharyngeal soft tis sues. Endotracheal tube is present and extends down to the last image of the scan toward the juan. NG tube is also noted. Epiglottis above the endotracheal tube but is otherwise normal. Thyroid unrema rkable. Subcentimeter superior mediastinal lymph nodes are identified. The parotid and submandibular glands are normal. No fractures. CONCLUSION: 1. Patient is intubated which limits this study. The epiglottis is otherwise normal. Secretions are p resent in the oropharynx and right sphenoid sinus. Alex Monahan MD on March 10, 2017 at 11:26 Board Certified Radiologist. This report was verified electronically.
--- NOTE | 2017-03-10 11:49 | HHI.CCPN ---
Subjective Remarks/Hospital Course Hospital Course: 36-year-old female who presents initially as a stroke alert. According to EMS report the patient has a history of fungal endocarditis with previous IVDA. EMS states that the patient is currently on hospice, however, they are unsure if the patient is a DNR. EMS states the patient apparently complained of a headache earlier today, was found lying on the floor and incontinent of stool at approximate, last seen normal at 6:45 PM. Therefore, EMS called a stroke alert in the field as the patient was aphasic and confused. Upon arrival the patient groans, moves all 4 extremities and withdraws all 4 extremities, but is unable to provide any information. She was intubated in the emergency department by ER attending for airway protection. 02/27: remains encephalopathic. Blood cultures growing Staph in 4/ bottles. 02/28: Remains sedated/ encephalopathic, orally intubated on mechanical ventilation. 03/01: still in shock on vasopressors. grossly volume overloaded and intravascularly volume overloaded based on echo and clinically. needs aggressive diuresis, but still in shock. family made patient DNR last night, but want to continue aggressive therapies. still encephalopathic. no significant improvements. 03/02: seen and examined at around 06:45am. delayed note entry. remains encephalopathic. no significant changes. unlikely to survive hospital stay, no additional overall therapies. family wants aggressive treatment. diuresing on bumex drip. net 3.3L negative. still volume overloaded. 03/03: Tmax 102.8 This am patient went into SVT rhythm heart rate 190's. Cooling blanket placed, ice packs in place, metoprolol 5 mg IV push given, resolution heart rate mid 90s, MAP ranges 66-68. Ofirmev ordered. Bumex infusion discontinued secondary to elevation in creatinine. Chest x-ray pending. 03/04: Continues to be febrile, continues on cooling blanket. Propofol was discontinued secondary to hypotension. Today the patient continues on Versed and fentanyl infusions with the RASS -2. Patient currently GCS of 11 T, responsive. The patient tolerated CPAP trials for approximately 2.5 hours for the last 2 days. 03/05: Somewhat agitated this AM. Remains in sinus tachycardia. On PSV trials 1.5 hours today. Tolerating tube feeding. Tmax 101.4. 03/06: Low-grade fevers overnight. Currently afebrile. Remains on Precedex, Versed and fentanyl drips for sedation. On PSV trial 2 hours so far. Tolerating tube feeds. 03/07: Regular. Requesting extubation DO NOT INTUBATE hospice today. Patient actually is doing well on her weaning trials. If passes wean parameters. We' ll attempt extubation today. 03/08: Extubated yesterday approximately 1 hour 30 minutes. During that time, patient stated she wanted to be a full code. This was in conflict which she had stated earlier while on Precedex drip. Patient is currently full code. Possible stridor according to RN which brought about intubation by overnight operative supervisor. Currently awake and alert and following commands room 03/09: Pending CT neck. Afebrile. Remains on full ventilator support. Awake and alert and following commands. tube feedings resumed. Subjective 03/10: Afebrile. CT neck unremarkable. Awake and alert and following commands. Tolerating tube feeding. One bowel movement yesterday. Objective Vital Signs Date Time Temp Pulse Resp B/P (MAP) Pulse Ox O2 Delivery O2 Flow Rate FiO2 03/10/17 11:39 100 35 03/10/17 10:00 82 03/10/17 08:00 98.1 20 125/78 (94) Intake and Output 03/10/17 03/10/17 03/10/17 07:59 15:59 23:59 Intake Total 2141 ml 450 ml Output Total 1000 ml Balance 1141 ml 450 ml Result Diagram: 03/10/17 0550 03/10/17 0550 Other Results Microbiology Date/Time Source Procedure Growth Status 03/05/17 16:55 Blood Peripheral Aerobic Blood Culture - Final NO GROWTH IN 5 DAYS Complete 03/05/17 16:55 Blood Peripheral Anaerobic Blood Culture - Final NO GROWTH IN 5 DAYS Complete 02/26/17 22:00 Cerebral Spinal Fluid Lumbar Puncture Fungal Smear - Final NO FUNGAL ELEMENTS SEEN. Resulted 02/26/17 22:00 Cerebral Spinal Fluid Lumbar Puncture Fungal Culture - Preliminary NO GROWTH IN 1 WEEK Resulted 03/08/17 22:00 Sputum Endotracheal Gram Stain - Final Resulted 03/08/17 22:00 Sputum Endotracheal Sputum Culture - Preliminary RESULTS PENDING Resulted Imaging Last Impressions Neck CT 03/10/17 0000 Signed Impressions: Service Date/Time: Friday, March 10, 2017 11:13 - CONCLUSION: 1. Patient is intubated which limits this study. The epiglottis is otherwise normal. Secretions are present in the oropharynx and right sphenoid sinus. Alex Monahan MD Chest X-Ray 03/08/17 0000 Signed Impressions: Service Date/Time: February 10:10 - CONCLUSION: Satisfactory support line and tube positioning. Mild infiltrate most mobile in the left lung base. Adalid Dallas MD Brain MRI 03/02/17 0000 Signed Impressions: Service Date/Time: Thursday, March 02, 2017 17:07 - CONCLUSION: 1. Small acute or subacute cortical infarct of the left parietal lobe. 2. Small, faint area of nonspecific flair signal abnormality in the left frontal lobe periventricular white matter, nonspecific. No associated mass effect or abnormal enhancement. 3 month followup MRI of the brain recommended. 3. Mild chronic white matter changes. Adalid Perry MD Head CT 02/26/17 0000 Signed Impressions: Service Date/Time: Sunday, February 26, 2017 19:47 - CONCLUSION: No evidence of acute infarct, hemorrhage, mass or edema. Ken Sanchez MD Objective Remarks GENERAL: 36-year-old female, critically ill currently resting in bed orotracheally intubated SKIN: Warm and dry. Livedo reticularis noted on peripheral extremities HEAD: Normocephalic. EYES: No scleral icterus. No injection or drainage. NECK: trachea midline. No JVD CARDIOVASCULAR: Tachycardic, RR. S1, S2 no S4. Without murmur RESPIRATORY: Essentially clear to auscultation without wheezes rales or rhonchi GASTROINTESTINAL: Abdomen soft, non-tender, nondistended. no guarding. MUSCULOSKELETAL: 1 + peripheral edema. Generalized anasarca. Multiple petechiae and ecchymotic bruising secondary to most likely septic emboli NEURO EXAM: GCS 11T. Follows commands, moves extremities 4. Motor strength 5/ 5 bilateral upper and lower extremity. Cranial nerves II-XII grossly intact. A/P Assessment and Plan Neuro/Psych Acute Encephalopathy Acute meningitis, possible bacterial Left parietal/frontal CVA Patient is currently on Versed drip at 5 mg an hour fentanyl drip at 70 mcg an hour for sedation/analgesia while intubated Goal of RA SS -2 Daily sedation vacation - LP with elevated protein, and low glucose relative to serum glucose. - CT head negative -MRI-small acute and subacute cortical infarct of left parietal lobe - Neuro checks per unit protocol Acetaminophen for fever Evaluated by neurology Resp: Acute hypoxic and hypercarbic Respiratory failure PRVV 14/07/13/34 Ventilator bundle Albuterol/ipratropium aerosols every 6 hours with to 2 hours As needed albuterol therapy Spontaneous breathing trials daily ordered CT neck rule out airway edema On dexamethasone 4 mg IV every 8 hours 2 days completed Cardiac SVT Sinus tachycardia Mixed Septic/cardiogenic Shock Acute congestive heart failure secondary to valvulopathy Tricuspid Regurgitation - Metoprolol 2.5 mg every 6 hours when necessary heart rate greater than 100 bpm Echocardiogram 02/22 revealed EF 25-30%. PAP 34 mmHg. Currently off all vasopressors. ID: History of fungal endocarditis Staph Bacteremia Tricuspid valve infective endocarditis - History of IVDA - Broad-spectrum antibiotic with oxacillin, ampicillin, gentamicin and rifampin - Infectious disease following, Dr. Spaulding RENAL: Acute Kidney Injury - resolved -secondary to shock - Strict I and O's - pedroza catheter GI" Acute Protein calorie malnutrition- severe - secondary to long-standing IVDA and endocarditis - continue TF Jevity 1.5 currently at goal 55 cc/hour-minimal residuals resume today Famotidine for GI prophylaxis Docusate sodium/senna for bowel regimen HEME: Microcytic anemia Monitor CBC daily. Follow trends Endo Hyperglycemia critical illness Sliding scale insulin to maintain euglycemia FEN: Hypernatremia Continue free water flushes 300 every 8 hours. DVT GI prophylaxis - Teds SCDs - Subcutaneous heparin -Famotidine Dispo: Discussed with [employer]MER SCHOOL COORDINATOR and significant other at bedside. Level II follow-up Francis Dominguez MD Mar 10, 2017 11:49
--- NOTE | 2017-03-10 12:35 | HHI.IDPN ---
Subjective Subjective Remarks pt failed extubation and was re-intubated again + throat edema no fever a lot of secretions Antibiotics ampicillin oxacillin gent rifampin Allergies: Coded Allergies: No Known Allergies (Verified , 09/01/15) Objective . Vital Signs Date Time Temp Pulse Resp B/P (MAP) Pulse Ox O2 Delivery O2 Flow Rate FiO2 03/10/17 11:39 100 35 03/10/17 10:00 82 03/10/17 08:00 98.1 83 20 125/78 (94) 100 03/10/17 08:00 35 03/10/17 08:00 83 03/10/17 07:32 100 35 03/10/17 06:00 84 03/10/17 04:05 100 35 03/10/17 04:00 77 03/10/17 04:00 98.0 77 20 127/82 (97) 100 03/10/17 04:00 35 03/10/17 02:00 68 03/10/17 01:02 100 35 03/10/17 00:00 98.4 82 18 133/81 (98) 100 03/10/17 00:00 82 03/10/17 00:00 35 03/09/17 22:00 83 03/09/17 21:48 100 35 03/09/17 20:00 35 03/09/17 20:00 98.7 91 20 126/75 (92) 99 03/09/17 20:00 91 03/09/17 18:00 91 03/09/17 16:12 96 35 03/09/17 16:00 35 03/09/17 16:00 92 03/09/17 16:00 98.0 92 22 124/79 (94) 96 03/09/17 14:56 14 03/09/17 14:00 93 03/10/17 03/10/17 03/11/17 15:00 23:00 07:00 Intake Total 550 ml Balance 550 ml IV Total 550 ml . Laboratory Tests Test 03/09/17 04:15 03/10/17 05:50 White Blood Count 7.8 TH/MM3 9.0 TH/MM3 Red Blood Count 3.25 MIL/MM3 3.33 MIL/MM3 Hemoglobin 7.9 GM/DL 7.9 GM/DL Hematocrit 24.5 % 25.1 % Mean Corpuscular Volume 75.5 FL 75.5 FL Mean Corpuscular Hemoglobin 24.4 PG 23.7 PG Mean Corpuscular Hemoglobin Concent 32.3 % 31.4 % Red Cell Distribution Width 16.5 % 16.5 % Platelet Count 401 TH/MM3 474 TH/MM3 Mean Platelet Volume 8.3 FL 7.8 FL Neutrophils (%) (Auto) 80.7 % Lymphocytes (%) (Auto) 12.8 % Monocytes (%) (Auto) 4.9 % Eosinophils (%) (Auto) 0.5 % Basophils (%) (Auto) 1.1 % Neutrophils # (Auto) 6.3 TH/MM3 Lymphocytes # (Auto) 1.0 TH/MM3 Monocytes # (Auto) 0.4 TH/MM3 Eosinophils # (Auto) 0.0 TH/MM3 Basophils # (Auto) 0.1 TH/MM3 CBC Comment DIFF FINAL Differential Comment Laboratory Tests Test 03/09/17 04:15 03/10/17 05:50 Blood Urea Nitrogen 30 MG/DL 34 MG/DL Creatinine 1.17 MG/DL 1.29 MG/DL Random Glucose 84 MG/DL 152 MG/DL Calcium Level 9.1 MG/DL 8.6 MG/DL Phosphorus Level 5.4 MG/DL 5.7 MG/DL Magnesium Level 2.2 MG/DL 2.2 MG/DL Sodium Level 146 MEQ/L 146 MEQ/L Potassium Level 3.7 MEQ/L 3.4 MEQ/L Chloride Level 111 MEQ/L 111 MEQ/L Carbon Dioxide Level 22.6 MEQ/L 24.2 MEQ/L Anion Gap 12 MEQ/L 11 MEQ/L Estimat Glomerular Filtration Rate 53 ML/MIN 47 ML/MIN Microbiology Date/Time Source Procedure Growth Status 03/08/17 22:00 Sputum Endotracheal Gram Stain - Final Resulted 03/08/17 22:00 Sputum Endotracheal Sputum Culture - Preliminary RESULTS PENDING Resulted Imaging Last Impressions Neck CT 03/10/17 0000 Signed Impressions: Service Date/Time: Friday, March 10, 2017 11:13 - CONCLUSION: 1. Patient is intubated which limits this study. The epiglottis is otherwise normal. Secretions are present in the oropharynx and right sphenoid sinus. Alex Monahan MD Chest X-Ray 03/08/17 0000 Signed Impressions: Service Date/Time: February 10:10 - CONCLUSION: Satisfactory support line and tube positioning. Mild infiltrate most mobile in the left lung base. Adalid Dallas MD Brain MRI 03/02/17 0000 Signed Impressions: Service Date/Time: Thursday, March 02, 2017 17:07 - CONCLUSION: 1. Small acute or subacute cortical infarct of the left parietal lobe. 2. Small, faint area of nonspecific flair signal abnormality in the left frontal lobe periventricular white matter, nonspecific. No associated mass effect or abnormal enhancement. 3 month followup MRI of the brain recommended. 3. Mild chronic white matter changes. Adalid Perry MD Head CT 02/26/17 0000 Signed Impressions: Service Date/Time: Sunday, February 26, 2017 19:47 - CONCLUSION: No evidence of acute infarct, hemorrhage, mass or edema. Ken Sanchez MD Physical Exam CONSTITUTIONAL/GENERAL: This is an adequately nourished patient, in no apparent distress. Sedated, int'd on mech vent TUBES/LINES/DRAINS: SKIN: No jaundice, rashes, or lesions. Skin temperature appropriate. Not diaphoretic. multiple embolic lesions cw septic embolization involving L lower leg and both feet - resolving EYES: Pupils small non reactive equal and round . No scleral icterus. No injection or drainage. Fundi not examined. CARDIOVASCULAR: Regular rate and rhythm without murmurs, gallops, or rubs. Mechanical heart sounds No JVD. Peripheral pulses symmetric. RESPIRATORY/CHEST: Symmetric, unlabored respirations. Diffuse rhonchi to auscultation. Breath sounds equal bilaterally. GASTROINTESTINAL: Abdomen soft, non-tender, moderately distended. No hepato- splenomegaly, or palpable masses. No guarding. Bowel sounds present, hypoactive GENITOURINARY: Without palpable bladder distension. 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 cardiac injury from infx Not a surgical candidate ? PNA, clx negative - worsening secretions New fever ; resolved Heavy secrerions ? VAP fu repeat blood clx untill final - chk diff to monitor eosinophilia which can be aw curretn abx Rx cont oxacillin + gentamin +RIfampin - switch to oral ruifampin cont ampicillin for Enterococci fu repeat blood clx monitor closely creatinint and LFTs (2-3x/week) Unless more positive blood clx anticipate 6 week from 1st neg (03/01) followed by indefinite oral abx suppression tx IV abx stop date tenatively 04/12 at least weekly CBC with diff (eosinophilia) , creatinine and LFTs while on the above Rx -fu sputum clx dw RN and RT Swati Spaulding MD Mar 10, 2017 12:35
[2017-03-10] MEDS: ACETAMINOPHEN 1000 MG/100 ML VIAL IV PRN (13:57)
[2017-03-11] VITALS (19 sets, daily range): BP systolic 110–125; BP diastolic 62–80; PULSE 79–101; RESP 14–16; TEMP 97.3–98.8; O2SAT 95–100
[2017-03-11] MEDS: GENTAMICIN/SOD CHL 80 MG/100 ML IV SCH ×3 (00:17→23:58)
[2017-03-11] MEDS: OXACILLIN INJ 2 GM in SODIUM CHLORIDE 0.9% INJ 100 ML IV SCH ×6 (00:20→20:14)
[2017-03-11] MEDS: AMPICILLIN INJ 2,000 MG in SODIUM CHLORIDE 0.9% INJ 100 ML IV SCH ×7 (00:21→23:57)
[2017-03-11] MEDS: RESP: ALBUTEROL 2.5 MG/IPRATROPIUM 0.5 MG NEB (SCH) NEB ×4 (03:55→21:38)
[2017-03-11] MEDS: FREE WATER G-TUBE SCH ×4 (04:26→23:57)
[2017-03-11 05:56] LABS: MEAN CORPUSCULAR HEMOGLOBIN 24.8 PG (27.0-34.0); MEAN CORPUSCULAR HGB CONC 32.2 % (32.0-36.0); PLATELET COUNT 460 TH/MM3 (150-450); RED BLOOD COUNT 3.24 MIL/MM3 (4.00-5.30); RED CELL DISTRIBUTION WIDTH 16.8 % (11.6-17.2); REVIEW FLAG FINAL; WHITE BLOOD COUNT 9.9 TH/MM3 (4.0-11.0)
[2017-03-11 06:08] LABS: BICARBONATE 25.5 MEQ/L (21.0-32.0); POTASSIUM 3.3 MEQ/L (3.5-5.1)
--- NOTE | 2017-03-11 08:05 | HHI.CCPN ---
Subjective Remarks/Hospital Course Hospital Course: 36-year-old female who presents initially as a stroke alert. According to EMS report the patient has a history of fungal endocarditis with previous IVDA. EMS states that the patient is currently on hospice, however, they are unsure if the patient is a DNR. EMS states the patient apparently complained of a headache earlier today, was found lying on the floor and incontinent of stool at approximate, last seen normal at 6:45 PM. Therefore, EMS called a stroke alert in the field as the patient was aphasic and confused. Upon arrival the patient groans, moves all 4 extremities and withdraws all 4 extremities, but is unable to provide any information. She was intubated in the emergency department by ER attending for airway protection. 02/27: remains encephalopathic. Blood cultures growing Staph in 4/ bottles. 02/28: Remains sedated/ encephalopathic, orally intubated on mechanical ventilation. 03/01: still in shock on vasopressors. grossly volume overloaded and intravascularly volume overloaded based on echo and clinically. needs aggressive diuresis, but still in shock. family made patient DNR last night, but want to continue aggressive therapies. still encephalopathic. no significant improvements. 03/02: seen and examined at around 06:45am. delayed note entry. remains encephalopathic. no significant changes. unlikely to survive hospital stay, no additional overall therapies. family wants aggressive treatment. diuresing on bumex drip. net 3.3L negative. still volume overloaded. 03/03: Tmax 102.8 This am patient went into SVT rhythm heart rate 190's. Cooling blanket placed, ice packs in place, metoprolol 5 mg IV push given, resolution heart rate mid 90s, MAP ranges 66-68. Ofirmev ordered. Bumex infusion discontinued secondary to elevation in creatinine. Chest x-ray pending. 03/04: Continues to be febrile, continues on cooling blanket. Propofol was discontinued secondary to hypotension. Today the patient continues on Versed and fentanyl infusions with the RASS -2. Patient currently GCS of 11 T, responsive. The patient tolerated CPAP trials for approximately 2.5 hours for the last 2 days. 03/05: Somewhat agitated this AM. Remains in sinus tachycardia. On PSV trials 1.5 hours today. Tolerating tube feeding. Tmax 101.4. 03/06: Low-grade fevers overnight. Currently afebrile. Remains on Precedex, Versed and fentanyl drips for sedation. On PSV trial 2 hours so far. Tolerating tube feeds. 03/07: Regular. Requesting extubation DO NOT INTUBATE hospice today. Patient actually is doing well on her weaning trials. If passes wean parameters. We' ll attempt extubation today. 03/08: Extubated yesterday approximately 1 hour 30 minutes. During that time, patient stated she wanted to be a full code. This was in conflict which she had stated earlier while on Precedex drip. Patient is currently full code. Possible stridor according to RN which brought about intubation by overnight highway administrative engineer. Currently awake and alert and following commands room 03/09: Pending CT neck. Afebrile. Remains on full ventilator support. Awake and alert and following commands. tube feedings resumed. 03/10: Afebrile. CT neck unremarkable. Awake and alert and following commands. Tolerating tube feeding. One bowel movement yesterday. Subjective 03/11: Resting in bed in no acute distress. Awake and alert. We'll attempt extubation morning if passes weaning parameters. Will need to be on Precedex drip. Tolerating tube feeding. Objective Vital Signs Date Time Temp Pulse Resp B/P (MAP) Pulse Ox O2 Delivery O2 Flow Rate FiO2 03/11/17 07:22 99 35 03/11/17 06:00 91 03/11/17 04:00 97.3 16 110/66 (81) Intake and Output 03/11/17 03/11/17 03/12/17 08:00 16:00 00:00 Intake Total 2205 ml Output Total 1200 ml Balance 1005 ml Result Diagram: 03/11/17 0540 03/11/17 0540 Other Results Microbiology Date/Time Source Procedure Growth Status 03/05/17 16:55 Blood Peripheral Aerobic Blood Culture - Final NO GROWTH IN 5 DAYS Complete 03/05/17 16:55 Blood Peripheral Anaerobic Blood Culture - Final NO GROWTH IN 5 DAYS Complete 02/26/17 22:00 Cerebral Spinal Fluid Lumbar Puncture Fungal Smear - Final NO FUNGAL ELEMENTS SEEN. Resulted 02/26/17 22:00 Cerebral Spinal Fluid Lumbar Puncture Fungal Culture - Preliminary NO GROWTH IN 1 WEEK Resulted 03/08/17 22:00 Sputum Endotracheal Gram Stain - Final Resulted 03/08/17 22:00 Sputum Endotracheal Sputum Culture - Preliminary NO GROWTH IN 24 HOURS. Resulted Imaging Last Impressions Neck CT 03/10/17 0000 Signed Impressions: Service Date/Time: Friday, March 10, 2017 11:13 - CONCLUSION: 1. Patient is intubated which limits this study. The epiglottis is otherwise normal. Secretions are present in the oropharynx and right sphenoid sinus. Alex Monahan MD Chest X-Ray 03/08/17 0000 Signed Impressions: Service Date/Time: February 10:10 - CONCLUSION: Satisfactory support line and tube positioning. Mild infiltrate most mobile in the left lung base. Adalid Dallas MD Brain MRI 03/02/17 0000 Signed Impressions: Service Date/Time: Thursday, March 02, 2017 17:07 - CONCLUSION: 1. Small acute or subacute cortical infarct of the left parietal lobe. 2. Small, faint area of nonspecific flair signal abnormality in the left frontal lobe periventricular white matter, nonspecific. No associated mass effect or abnormal enhancement. 3 month followup MRI of the brain recommended. 3. Mild chronic white matter changes. Adalid Perry MD Head CT 02/26/17 0000 Signed Impressions: Service Date/Time: Sunday, February 26, 2017 19:47 - CONCLUSION: No evidence of acute infarct, hemorrhage, mass or edema. Ken Sanchez MD Objective Remarks GENERAL: 36-year-old female, critically ill currently resting in bed orotracheally intubated SKIN: Warm and dry. Livedo reticularis noted on peripheral extremities HEAD: Normocephalic. EYES: No scleral icterus. No injection or drainage. NECK: trachea midline. No JVD CARDIOVASCULAR: Tachycardic, RR. S1, S2 no S4. Without murmur RESPIRATORY: Essentially clear to auscultation without wheezes rales or rhonchi GASTROINTESTINAL: Abdomen soft, non-tender, nondistended. no guarding. MUSCULOSKELETAL: 1 + peripheral edema. Generalized anasarca. Multiple petechiae and ecchymotic bruising secondary to most likely septic emboli NEURO EXAM: GCS 11T. Follows commands, moves extremities 4. Motor strength 5/ 5 bilateral upper and lower extremity. Cranial nerves II-XII grossly intact. A/P Assessment and Plan Neuro/Psych Acute Encephalopathy Acute meningitis, possible bacterial Left parietal/frontal CVA Patient is currently on Versed drip at 5 mg an hour fentanyl drip at 70 mcg an hour for sedation/analgesia while intubated Goal of RA SS -2 Daily sedation vacation - LP with elevated protein, and low glucose relative to serum glucose. - CT head negative -MRI-small acute and subacute cortical infarct of left parietal lobe - Neuro checks per unit protocol Acetaminophen for fever Evaluated by neurology We'll place on Precedex drip and scheduled 5 mg twice a day methadone prior to extubation Resp: Acute hypoxic and hypercarbic Respiratory failure PRVV 14/07/13/34 PSV trial this a.m. Ventilator bundle Albuterol/ipratropium aerosols every 6 hours with to 2 hours As needed albuterol therapy Spontaneous breathing trials daily ordered CT neck rule out airway edema On dexamethasone 4 mg IV every 8 hours 2 days completed Cardiac SVT Sinus tachycardia Mixed Septic/cardiogenic Shock Acute congestive heart failure secondary to valvulopathy Tricuspid Regurgitation - Metoprolol 2.5 mg every 6 hours when necessary heart rate greater than 100 bpm Echocardiogram 02/22 revealed EF 25-30%. PAP 34 mmHg. Currently off all vasopressors. ID: History of fungal endocarditis Staph Bacteremia Tricuspid valve infective endocarditis - History of IVDA - Broad-spectrum antibiotic with oxacillin, ampicillin, gentamicin and rifampin - switched to oral today Tentative stop date for IV antibiotics 04/12 Oral suppression indefinitely - Infectious disease following, Dr. Spaulding RENAL: Acute Kidney Injury - resolved -secondary to shock - Strict I and O's - pedroza catheter GI" Acute Protein calorie malnutrition- severe - secondary to long-standing IVDA and endocarditis - continue TF Jevity 1.5 currently at goal 55 cc/hour-minimal residuals Famotidine for GI prophylaxis Docusate sodium/senna for bowel regimen HEME: Normocytic anemia Thrombocytosis Monitor CBC daily. Follow trends Endo Hyperglycemia critical illness Sliding scale insulin to maintain euglycemia FEN: Hypernatremia Hyperphosphatemia Continue free water flushes 300 every 6 hours. DVT GI prophylaxis - Teds SCDs - Subcutaneous heparin -Famotidine Dispo: Discussed with [facility] [employer] PRACTITIONER and significant other at bedside. Level II follow-up Francis Dominguez MD Mar 11, 2017 08:05
[2017-03-11] MEDS: RIFAMPIN 150 MG CAP PO SCH ×2 (08:09→20:13)
[2017-03-11] MEDS: FAMOTIDINE 20 MG/2 ML VIAL IV PUSH SCH ×2 (08:09→20:14)
[2017-03-11] MEDS: MORPHINE SULFATE 4 MG/ML INJ IV PRN ×3 (08:10→17:43)
[2017-03-11] MEDS: SODIUM CHLORIDE 0.9% FLUSH 10 ML FLUSH IV FLUSH SCH ×2 (08:11→20:14)
[2017-03-11] MEDS: ARTIFICIAL TEARS OPTH SOLN 15 ML BTL EACH EYE SCH ×3 (08:13→18:00)
[2017-03-11] MEDS: DOCUSATE SODIUM 50 MG/SENNA 8.6 MG TAB PO SCH ×2 (08:13→20:13)
[2017-03-11] MEDS ORDERED: POTASSIUM CHLORIDE 20 MEQ PWD PACKET PO ONE (08:15)
[2017-03-11] MEDS ORDERED: POTASSIUM CHLOR 40 MEQ PREMIX 100 ML IV ONE (08:15)
[2017-03-11] MEDS: DEXMEDETOMIDINE INJ 200 MCG in SODIUM CHLORIDE 0.9% INJ 50 ML IV PRN ×3 (09:21→19:23)
[2017-03-11] MEDS: METHADONE HCL 10 MG/10 ML ORAL SOLUTION PO SCH ×2 (09:23→20:13)
[2017-03-11] MEDS: HEPARIN SODIUM - SQ 10,000 UNITS/ML VIAL SQ SCH ×2 (11:01→20:13)
[2017-03-12] VITALS (13 sets, daily range): BP systolic 110–124; BP diastolic 58–73; PULSE 77–101; RESP 12–22; TEMP 98–98.6; O2SAT 93–100
[2017-03-12] MEDS: RESP: ALBUTEROL 2.5 MG/IPRATROPIUM 0.5 MG NEB (PRN) INH (00:10)
[2017-03-12] MEDS ORDERED: RESP: RACEPINEPHRINE 2.25% 0.5 ML NEB NEB ONE (01:45)
[2017-03-12] MEDS ORDERED: RESP: RACEPINEPHRINE 2.25% 0.5 ML NEB NEB PRN (01:45)
[2017-03-12] MEDS: OXACILLIN INJ 2 GM in SODIUM CHLORIDE 0.9% INJ 100 ML IV SCH ×6 (02:20→20:00)
--- NOTE | 2017-03-12 03:11 | RADRPT ---
EXAM DATE/TIME: 03/12/2017 02:06 [facility] COMPARISON: CHEST SINGLE AP, March 08, 2017, 10:10. INDICATIONS : Shortness of breath, possible pulmonary disease. MEDICAL HISTORY : Endocarditis poly substance abuse renal failure SURGICAL HISTORY : CABG. ENCOUNTER: Subsequent ACUITY: 2 months PAIN SCORE: Non-responsive. LOCATION: Bilateral chest FINDINGS: Mild infiltrate and small effusion seen of the left lung base. Right lung reasonably clear there is n o pneumothorax seen. Heart size stable, upper limits of normal. Patient has had previous median sternotomy. Patient has been extubated. Nasogastric tube remains in place, tip in the stomach. There is a left bishop bclavian central venous catheter again noted, tip in the superior vena cava. CONCLUSION: 1. Mild consolidation and small effusion of the left lung base not significantly changed. Right lung remains reasonably clear. 2. Endotracheal tube bowel in the interim. Nasogastric tube and left subclavian central venous cathet er remain in place. Adalid Perry MD on March 12, 2017 at 3:08 Board Certified Radiologist. This report was verified electronically.
[2017-03-12] MEDS: CHLORHEXIDINE GLUCONATE 2 % 1 PACK (2 CLOTHS) TOP SCH (03:48)
[2017-03-12] MEDS: DEXMEDETOMIDINE INJ 200 MCG in SODIUM CHLORIDE 0.9% INJ 50 ML IV PRN ×4 (03:49→05:40)
[2017-03-12] MEDS: RESP: ALBUTEROL 2.5 MG/IPRATROPIUM 0.5 MG NEB (SCH) NEB ×4 (03:55→21:37)
[2017-03-12 04:50] LABS: HEMATOCRIT 23.7 % (35.0-46.0); MEAN CELL VOLUME 76.6 FL (80.0-100.0); MEAN CORPUSCULAR HEMOGLOBIN 24.2 PG (27.0-34.0); MEAN CORPUSCULAR HGB CONC 31.6 % (32.0-36.0); PLATELET COUNT 417 TH/MM3 (150-450); RED BLOOD COUNT 3.09 MIL/MM3 (4.00-5.30); RED CELL DISTRIBUTION WIDTH 16.8 % (11.6-17.2); REVIEW FLAG FINAL; WHITE BLOOD COUNT 10.2 TH/MM3 (4.0-11.0)
[2017-03-12 05:16] LABS: BICARBONATE 26.3 MEQ/L (21.0-32.0); MAGNESIUM 1.8 MG/DL (1.5-2.5); POTASSIUM 3.4 MEQ/L (3.5-5.1)
[2017-03-12] MEDS: FREE WATER G-TUBE SCH (05:35)
[2017-03-12] MEDS: AMPICILLIN INJ 2,000 MG in SODIUM CHLORIDE 0.9% INJ 100 ML IV SCH ×6 (05:39→23:22)
[2017-03-12] MEDS: POTASSIUM CHLOR 40 MEQ PREMIX 100 ML IV PRN (06:10)
[2017-03-12] MEDS: DOCUSATE SODIUM 50 MG/SENNA 8.6 MG TAB PO SCH ×2 (08:00→19:59)
[2017-03-12] MEDS: SODIUM CHLORIDE 0.9% FLUSH 10 ML FLUSH IV FLUSH SCH ×2 (08:00→20:00)
[2017-03-12] MEDS: FAMOTIDINE 20 MG/2 ML VIAL IV PUSH SCH ×2 (08:00→19:59)
[2017-03-12] MEDS: METHADONE HCL 10 MG/10 ML ORAL SOLUTION PO SCH ×2 (08:00→19:59)
[2017-03-12] MEDS: RIFAMPIN 150 MG CAP PO SCH ×2 (08:01→19:59)
[2017-03-12] MEDS: ARTIFICIAL TEARS OPTH SOLN 15 ML BTL EACH EYE SCH ×3 (09:00→18:00)
--- NOTE | 2017-03-12 09:32 | HHI.CCPN ---
Subjective Remarks/Hospital Course Hospital Course: 36-year-old female who presents initially as a stroke alert. According to EMS report the patient has a history of fungal endocarditis with previous IVDA. EMS states that the patient is currently on hospice, however, they are unsure if the patient is a DNR. EMS states the patient apparently complained of a headache earlier today, was found lying on the floor and incontinent of stool at approximate, last seen normal at 6:45 PM. Therefore, EMS called a stroke alert in the field as the patient was aphasic and confused. Upon arrival the patient groans, moves all 4 extremities and withdraws all 4 extremities, but is unable to provide any information. She was intubated in the emergency department by ER attending for airway protection. 02/27: remains encephalopathic. Blood cultures growing Staph in 4/ bottles. 02/28: Remains sedated/ encephalopathic, orally intubated on mechanical ventilation. 03/01: still in shock on vasopressors. grossly volume overloaded and intravascularly volume overloaded based on echo and clinically. needs aggressive diuresis, but still in shock. family made patient DNR last night, but want to continue aggressive therapies. still encephalopathic. no significant improvements. 03/02: seen and examined at around 06:45am. delayed note entry. remains encephalopathic. no significant changes. unlikely to survive hospital stay, no additional overall therapies. family wants aggressive treatment. diuresing on bumex drip. net 3.3L negative. still volume overloaded. 03/03: Tmax 102.8 This am patient went into SVT rhythm heart rate 190's. Cooling blanket placed, ice packs in place, metoprolol 5 mg IV push given, resolution heart rate mid 90s, MAP ranges 66-68. Ofirmev ordered. Bumex infusion discontinued secondary to elevation in creatinine. Chest x-ray pending. 03/04: Continues to be febrile, continues on cooling blanket. Propofol was discontinued secondary to hypotension. Today the patient continues on Versed and fentanyl infusions with the RASS -2. Patient currently GCS of 11 T, responsive. The patient tolerated CPAP trials for approximately 2.5 hours for the last 2 days. 03/05: Somewhat agitated this AM. Remains in sinus tachycardia. On PSV trials 1.5 hours today. Tolerating tube feeding. Tmax 101.4. 03/06: Low-grade fevers overnight. Currently afebrile. Remains on Precedex, Versed and fentanyl drips for sedation. On PSV trial 2 hours so far. Tolerating tube feeds. 03/07: Regular. Requesting extubation DO NOT INTUBATE hospice today. Patient actually is doing well on her weaning trials. If passes wean parameters. We' ll attempt extubation today. 03/08: Extubated yesterday approximately 1 hour 30 minutes. During that time, patient stated she wanted to be a full code. This was in conflict which she had stated earlier while on Precedex drip. Patient is currently full code. Possible stridor according to RN which brought about intubation by overnight lithostripper. Currently awake and alert and following commands room 03/09: Pending CT neck. Afebrile. Remains on full ventilator support. Awake and alert and following commands. tube feedings resumed. 03/10: Afebrile. CT neck unremarkable. Awake and alert and following commands. Tolerating tube feeding. One bowel movement yesterday. Subjective 03/11: Resting in bed in no acute distress. Awake and alert. We'll attempt extubation morning if passes weaning parameters. Will need to be on Precedex drip. Tolerating tube feeding. 03/12: Extubated yesterday tolerating well. Overnight had developed postextubation stridor, good response to racemic epi. Currently on Precedex 0.4 g per KG per hour. Will wean to DC. No stridor on exam today Objective Vital Signs Date Time Temp Pulse Resp B/P (MAP) Pulse Ox O2 Delivery O2 Flow Rate FiO2 03/12/17 07:48 100 Nasal Cannula 2.00 03/12/17 06:00 83 03/12/17 04:00 98.2 20 123/71 (88) 03/11/17 08:00 35 Intake and Output 03/12/17 03/12/17 03/13/17 08:00 16:00 00:00 Intake Total 1423 ml Balance 1423 ml Result Diagram: 03/12/17 0400 03/12/17 0400 Imaging Last Impressions Neck CT 03/10/17 0000 Signed Impressions: Service Date/Time: Friday, March 10, 2017 11:13 - CONCLUSION: 1. Patient is intubated which limits this study. The epiglottis is otherwise normal. Secretions are present in the oropharynx and right sphenoid sinus. Alex Monahan MD Chest X-Ray 03/08/17 0000 Signed Impressions: Service Date/Time: February 10:10 - CONCLUSION: Satisfactory support line and tube positioning. Mild infiltrate most mobile in the left lung base. Adalid Dallas MD Brain MRI 03/02/17 0000 Signed Impressions: Service Date/Time: Thursday, March 02, 2017 17:07 - CONCLUSION: 1. Small acute or subacute cortical infarct of the left parietal lobe. 2. Small, faint area of nonspecific flair signal abnormality in the left frontal lobe periventricular white matter, nonspecific. No associated mass effect or abnormal enhancement. 3 month followup MRI of the brain recommended. 3. Mild chronic white matter changes. Adalid Perry MD Head CT 02/26/17 0000 Signed Impressions: Service Date/Time: Sunday, February 26, 2017 19:47 - CONCLUSION: No evidence of acute infarct, hemorrhage, mass or edema. Ken Sanchez MD Objective Remarks GENERAL: 36-year-old female, currently resting in bed SKIN: Warm and dry. Livedo reticularis noted on peripheral extremities HEAD: Normocephalic. EYES: No scleral icterus. No injection or drainage. NECK: trachea midline. No JVD. No stridor CARDIOVASCULAR: RR. S1, S2 no S4. Without murmur RESPIRATORY: Essentially clear to auscultation without wheezes rales or rhonchi GASTROINTESTINAL: Abdomen soft, non-tender, nondistended. no guarding. MUSCULOSKELETAL: 1 + peripheral edema. Generalized anasarca. Multiple petechiae and ecchymotic bruising secondary to most likely septic emboli NEURO EXAM: Alert awake oriented. Follows commands, moves extremities 4. Motor strength 5/5 bilateral upper and lower extremity. Cranial nerves II-XII grossly intact. A/P Assessment and Plan Neuro/Psych Acute Encephalopathy Acute meningitis, possible bacterial Left parietal/frontal CVA Patient is currently on Precedex 0.4 mg per KG per hour-read to DC Goal of RASS -2. Daily sedation vacation - LP with elevated protein, and low glucose relative to serum glucose. - CT head negative - MRI-small acute and subacute cortical infarct of left parietal lobe - Neuro checks per unit protocol Acetaminophen for fever Evaluated by neurology Scheduled methadone 10 mg twice a day. PRN Morphine for breakthrough pain Resp: Acute hypoxic and hypercarbic Respiratory failure -resolved Post extubation stridor Extubated 03/11/17 tolerating well. Racemic epinephrine when necessary for stridor Albuterol/ipratropium aerosols every 6 hours with q 2 hours As needed albuterol therapy On dexamethasone 4 mg IV every 8 hours 2 days completed Cardiac SVT Sinus tachycardia Mixed Septic/cardiogenic Shock-resolved Acute congestive heart failure secondary to valvulopathy Tricuspid Regurgitation - Metoprolol 2.5 mg every 6 hours when necessary heart rate greater than 100 bpm Echocardiogram 02/22 revealed EF 25-30%. PAP 34 mmHg. Currently off all vasopressors. 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 Spaulding RENAL: Acute Kidney Injury - resolved -secondary to shock - Strict I and O's - pedroza catheter GI Acute Protein calorie malnutrition- severe - secondary to long-standing IVDA and endocarditis - DC tube feeds and increase oral intake Famotidine for GI prophylaxis Docusate sodium/senna for bowel regimen HEME: Normocytic anemia Thrombocytosis Monitor CBC daily. Follow trends Endo Hyperglycemia critical illness Sliding scale insulin to maintain euglycemia FEN: Hypernatremia Hyperphosphatemia Monitor electrolytes and sodium closely DVT GI prophylaxis - Teds SCDs - Subcutaneous heparin -Famotidine Dispo: Discussed with CREDIT REVIEW ANALYST and significant other at bedside. Level III Clinically improving but had overnight developed post extubation stridor. Monitor in the ICU another 24 hours Jennifer Cordoba MD Mar 12, 2017 09:32
[2017-03-12] MEDS: MORPHINE SULFATE 4 MG/ML INJ IV PRN ×4 (09:39→18:07)
[2017-03-12] MEDS: HEPARIN SODIUM - SQ 10,000 UNITS/ML VIAL SQ SCH ×2 (09:39→20:00)
[2017-03-12] MEDS: GENTAMICIN/SOD CHL 80 MG/100 ML IV SCH ×2 (11:06→23:21)
[2017-03-13] VITALS (11 sets, daily range): BP systolic 107–130; BP diastolic 63–88; PULSE 91–102; RESP 14–20; TEMP 98–98.4; O2SAT 94–100
[2017-03-13] MEDS: OXACILLIN INJ 2 GM in SODIUM CHLORIDE 0.9% INJ 100 ML IV SCH ×6 (00:59→22:27)
[2017-03-13] MEDS: CHLORHEXIDINE GLUCONATE 2 % 1 PACK (2 CLOTHS) TOP SCH (01:00)
[2017-03-13] MEDS: AMPICILLIN INJ 2,000 MG in SODIUM CHLORIDE 0.9% INJ 100 ML IV SCH ×5 (03:42→20:03)
[2017-03-13] MEDS: RESP: ALBUTEROL 2.5 MG/IPRATROPIUM 0.5 MG NEB (SCH) NEB ×2 (05:25→15:07)
[2017-03-13] MEDS: RESP: ALBUTEROL 2.5 MG/IPRATROPIUM 0.5 MG NEB (PRN) INH (07:35)
--- NOTE | 2017-03-13 07:45 | PD.TRANSFR ---
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 According to EMS report the patient has a history of fungal endocarditis with previous IVDA. EMS states that the patient is currently on hospice, however, they are unsure if the patient is a DNR. EMS states the patient apparently complained of a headache earlier today, was found lying on the floor and incontinent of stool at approximate, last seen normal at 6:45 PM. Therefore, EMS called a stroke alert in the field as the patient was aphasic and confused. Upon arrival the patient groans, moves all 4 extremities and withdraws all 4 extremities, but is unable to provide any information. She was intubated in the emergency department by ER attending for airway protection. 02/27: remains encephalopathic. Blood cultures growing Staph in 4/4 bottles. 02/28: Remains sedated/ encephalopathic, orally intubated on mechanical ventilation. 03/01: still in shock on vasopressors. grossly volume overloaded and intravascularly volume overloaded based on echo and clinically. needs aggressive diuresis, but still in shock. family made patient DNR last night, but want to continue aggressive therapies. still encephalopathic. no significant improvements. 03/02: seen and examined at around 06:45am. delayed note entry. remains encephalopathic. no significant changes. unlikely to survive hospital stay, no additional overall therapies. family wants aggressive treatment. diuresing on bumex drip. net 3.3L negative. still volume overloaded. 03/03: Tmax 102.8 This am patient went into SVT rhythm heart rate 190's. Cooling blanket placed, ice packs in place, metoprolol 5 mg IV push given, resolution heart rate mid 90s, MAP ranges 66-68. Ofirmev ordered. Bumex infusion discontinued secondary to elevation in creatinine. Chest x-ray pending. 03/04: Continues to be febrile, continues on cooling blanket. Propofol was discontinued secondary to hypotension. Today the patient continues on Versed and fentanyl infusions with the RASS -2. Patient currently GCS of 11 T, responsive. The patient tolerated CPAP trials for approximately 2.5 hours for the last 2 days. 03/05: Somewhat agitated this AM. Remains in sinus tachycardia. On PSV trials 1.5 hours today. Tolerating tube feeding. Tmax 101.4. 03/06: Low-grade fevers overnight. Currently afebrile. Remains on Precedex, Versed and fentanyl drips for sedation. On PSV trial 2 hours so far. Tolerating tube feeds. 03/07: Regular. Requesting extubation DO NOT INTUBATE hospice today. Patient actually is doing well on her weaning trials. If passes wean parameters. We' ll attempt extubation today. 03/08: Extubated yesterday approximately 1 hour 30 minutes. During that time, patient stated she wanted to be a full code. This was in conflict which she had stated earlier while on Precedex drip. Patient is currently full code. Possible stridor according to RN which brought about intubation by overnight twist maker. Currently awake and alert and following commands room 03/09: Pending CT neck. Afebrile. Remains on full ventilator support. Awake and alert and following commands. tube feedings resumed. 03/10: Afebrile. CT neck unremarkable. Awake and alert and following commands. Tolerating tube feeding. One bowel movement yesterday. 03/11: Resting in bed in no acute distress. Awake and alert. We'll attempt extubation morning if passes weaning parameters. Will need to be on Precedex drip. Tolerating tube feeding. 03/12: Extubated yesterday tolerating well. Overnight had developed postextubation stridor, good response to racemic epi. Currently on Precedex 0.4 g per KG per hour. Will wean to DC. No stridor on exam today 03/13: No stridor in the last 24 hours. Breathing comfortably. Denies chest pain or shortness of breath. Precedex weaned off. Plan for transfer [facility] with telemetry Objective Vital Signs Date Time Temp Pulse Resp B/P (MAP) Pulse Ox O2 Delivery O2 Flow Rate FiO2 03/13/17 04:00 98.1 91 18 124/74 (91) 95 03/12/17 21:37 Nasal Cannula 3.00 03/11/17 08:00 35 Intake and Output 03/13/17 03/13/17 03/13/17 07:59 15:59 23:59 Intake Total 1320 ml Balance 1320 ml Result Diagram: 03/12/17 0400 03/12/17 0400 Imaging Last Impressions Neck CT 03/10/17 0000 Signed Impressions: Service Date/Time: Friday, March 10, 2017 11:13 - CONCLUSION: 1. Patient is intubated which limits this study. The epiglottis is otherwise normal. Secretions are present in the oropharynx and right sphenoid sinus. Alex Monahan MD Chest X-Ray 03/08/17 0000 Signed Impressions: Service Date/Time: February 10:10 - CONCLUSION: Satisfactory support line and tube positioning. Mild infiltrate most mobile in the left lung base. Adalid Dallas MD Brain MRI 03/02/17 0000 Signed Impressions: Service Date/Time: Thursday, March 02, 2017 17:07 - CONCLUSION: 1. Small acute or subacute cortical infarct of the left parietal lobe. 2. Small, faint area of nonspecific flair signal abnormality in the left frontal lobe periventricular white matter, nonspecific. No associated mass effect or abnormal enhancement. 3 month followup MRI of the brain recommended. 3. Mild chronic white matter changes. Adalid Perry MD Head CT 02/26/17 0000 Signed Impressions: Service Date/Time: Sunday, February 26, 2017 19:47 - CONCLUSION: No evidence of acute infarct, hemorrhage, mass or edema. Ken Sanchez MD Objective Remarks GENERAL: 36-year-old female, currently resting in bed SKIN: Warm and dry. Livedo reticularis noted on peripheral extremities HEAD: Normocephalic. EYES: No scleral icterus. No injection or drainage. NECK: trachea midline. No JVD. No stridor CARDIOVASCULAR: RR. S1, S2 no S4. Grade 3-4 systolic murmur heard along the left sternal border RESPIRATORY: Few coarse rhonchi and wheezes GASTROINTESTINAL: Abdomen soft, non-tender, nondistended. no guarding. MUSCULOSKELETAL: 1 + peripheral edema. Mild anasarca. Multiple petechiae and ecchymotic bruising secondary to most likely septic emboli NEURO EXAM: Alert awake oriented. Follows commands, moves extremities 4. Motor strength 5/5 bilateral upper and lower extremity. A/P Assessment and Plan Neuro/Psych Acute Encephalopathy Acute meningitis, bacterial with MSSA Left parietal/frontal CVA Off all sedation - LP with elevated protein, and low glucose relative to serum glucose. Cx MSSA - CT head negative, MRI-small acute and subacute cortical infarct of left parietal lobe Acetaminophen for fever Evaluated by neurology Scheduled methadone 10 mg twice a day. PRN Morphine for breakthrough pain Resp: Acute hypoxic and hypercarbic Respiratory failure -resolved Post extubation stridor-resolved Extubated 03/11/17 tolerating well. Racemic epinephrine when necessary for stridor Albuterol/ipratropium aerosols every 6 hours with q 2 hours As needed albuterol therapy On dexamethasone 4 mg IV every 8 hours 2 days completed Cardiac SVT-resolved Sinus tachycardia Mixed Septic/cardiogenic Shock-resolved Acute congestive heart failure secondary to valvulopathy Tricuspid Regurgitation Metoprolol 2.5 mg every 6 hours when necessary heart rate greater than 100 bpm Echocardiogram 02/22 revealed EF 25-30%. PAP 34 mmHg. Currently off all vasopressors. 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 Spaulding RENAL: Acute Kidney Injury - resolved -secondary to shock - Strict I and O's - pedroza catheter - Scheduled Lasix and potassium daily GI Acute Protein calorie malnutrition- severe - Secondary to long-standing IVDA and endocarditis - Increase oral intake Famotidine for GI prophylaxis Docusate sodium/senna for bowel regimen HEME: Normocytic anemia Thrombocytosis Monitor CBC daily. Follow trends Endo Hyperglycemia critical illness Sliding scale insulin to maintain euglycemia FEN: Hypernatremia Hyperphosphatemia Monitor electrolytes and sodium closely DVT GI prophylaxis - Teds SCDs - Subcutaneous heparin - Famotidine Dispo: Discussed with MELT HOUSE SUPERVISOR and significant other at bedside. Level II Clinically improving, transfer to Med surg with Tele. Hospitalist consult to assume care in Jennifer Guillen MD Mar 13, 2017 07:45
[2017-03-13] MEDS: RIFAMPIN 150 MG CAP PO SCH ×2 (08:46→20:07)
[2017-03-13] MEDS: FAMOTIDINE 20 MG TAB PO SCH ×2 (08:46→20:07)
[2017-03-13] MEDS: FUROSEMIDE 20 MG TAB PO SCH (08:46)
[2017-03-13] MEDS: DOCUSATE SODIUM 50 MG/SENNA 8.6 MG TAB PO SCH ×2 (08:46→20:19)
[2017-03-13] MEDS: HEPARIN SODIUM - SQ 10,000 UNITS/ML VIAL SQ SCH ×2 (08:46→17:31)
[2017-03-13] MEDS: POTASSIUM CHLORIDE 20 MEQ CONTROLLED RELEASE TAB PO SCH (08:47)
[2017-03-13] MEDS: METHADONE HCL 10 MG/10 ML ORAL SOLUTION PO SCH ×2 (08:47→20:20)
[2017-03-13] MEDS: SODIUM CHLORIDE 0.9% FLUSH 10 ML FLUSH IV FLUSH SCH ×2 (08:47→20:06)
[2017-03-13] MEDS: ARTIFICIAL TEARS OPTH SOLN 15 ML BTL EACH EYE SCH ×3 (08:48→17:23)
--- NOTE | 2017-03-13 09:16 | RADRPT ---
EXAM DATE/TIME: 03/13/2017 08:07 [facility] COMPARISON: CHEST SINGLE AP, March 12, 2017, 2:06. INDICATIONS : Short of breath. MEDICAL HISTORY : Hepatitis C. endocarditis, pneumonia, poly substance abuse, renal failure SURGICAL HISTORY : Aortic valve replacement. ENCOUNTER: Subsequent ACUITY: 2 weeks PAIN SCORE: 0/10 LOCATION: Bilateral chest FINDINGS: Small lung findings with vascular crowding and mild edema noted. Small, bilateral pleural effusions a re likely. There is mild cardiomegaly, unchanged. Nasogastric tube and left subclavian line have been removed. CONCLUSION: Suspected mild edema/failure. Adalid Perry MD on March 13, 2017 at 9:12 Board Certified Radiologist. This report was verified electronically.
[2017-03-13] MEDS: GENTAMICIN/SOD CHL 80 MG/100 ML IV SCH ×2 (11:11→23:45)
[2017-03-13] MEDS: MORPHINE SULFATE 4 MG/ML INJ IV PRN ×4 (11:12→22:26)
[2017-03-13 12:52] LABS: AUTOMATED NEUTROPHIL # 6.1 TH/MM3 (1.8-7.7); BASOPHIL # 0.1 TH/MM3 (0-0.2); BASOPHIL % 1.1 % (0.0-2.0); EOSINOPHIL # 0.1 TH/MM3 (0-0.4); EOSINOPHIL % 1.5 % (0.0-4.0); HEMATOCRIT 28.1 % (35.0-46.0); HEMO FLAGS DIFF FINAL; LYMPH % 17.2 % (9.0-44.0); LYMPHOCYTE # 1.4 TH/MM3 (1.0-4.8); MEAN CELL VOLUME 76.7 FL (80.0-100.0); MEAN CORPUSCULAR HEMOGLOBIN 24.3 PG (27.0-34.0); MEAN CORPUSCULAR HGB CONC 31.7 % (32.0-36.0); NEUT % 73.2 % (16.0-70.0); PLATELET COUNT 415 TH/MM3 (150-450); RED BLOOD COUNT 3.66 MIL/MM3 (4.00-5.30); RED CELL DISTRIBUTION WIDTH 16.4 % (11.6-17.2); WHITE BLOOD COUNT 8.4 TH/MM3 (4.0-11.0)
[2017-03-13 13:14] LABS: BICARBONATE 26.6 MEQ/L (21.0-32.0); POTASSIUM 3.7 MEQ/L (3.5-5.1)
[2017-03-14] VITALS (10 sets, daily range): BP systolic 109–118; BP diastolic 68–80; PULSE 93–112; RESP 18–20; TEMP 98.2–99.2; O2SAT 93–100
[2017-03-14] MEDS: AMPICILLIN INJ 2,000 MG in SODIUM CHLORIDE 0.9% INJ 100 ML IV SCH ×7 (00:09→23:59)
[2017-03-14] MEDS: CHLORHEXIDINE GLUCONATE 2 % 1 PACK (2 CLOTHS) TOP SCH (01:19)
[2017-03-14] MEDS: OXACILLIN INJ 2 GM in SODIUM CHLORIDE 0.9% INJ 100 ML IV SCH ×6 (01:19→22:00)
[2017-03-14] MEDS: HEPARIN SODIUM - SQ 10,000 UNITS/ML VIAL SQ SCH ×3 (01:19→17:29)
[2017-03-14] MEDS: MORPHINE SULFATE 4 MG/ML INJ IV PRN ×4 (02:52→17:26)
[2017-03-14] MEDS: ONDANSETRON HCL 4 MG/2 ML VIAL IV PRN (02:59)
[2017-03-14] MEDS: RESP: ALBUTEROL 2.5 MG/IPRATROPIUM 0.5 MG NEB (SCH) NEB ×4 (04:29→21:16)
[2017-03-14 07:24] LABS: AUTOMATED NEUTROPHIL # 5.3 TH/MM3 (1.8-7.7); BASOPHIL # 0.1 TH/MM3 (0-0.2); BASOPHIL % 1.2 % (0.0-2.0); EOSINOPHIL # 0.2 TH/MM3 (0-0.4); HEMATOCRIT 26.5 % (35.0-46.0); HEMO FLAGS DIFF FINAL; LYMPH % 17.7 % (9.0-44.0); LYMPHOCYTE # 1.4 TH/MM3 (1.0-4.8); MEAN CELL VOLUME 75.7 FL (80.0-100.0); MEAN CORPUSCULAR HEMOGLOBIN 24.6 PG (27.0-34.0); MEAN CORPUSCULAR HGB CONC 32.5 % (32.0-36.0); MONO % 9.1 % (0.0-8.0); PLATELET COUNT 376 TH/MM3 (150-450); RED BLOOD COUNT 3.49 MIL/MM3 (4.00-5.30); RED CELL DISTRIBUTION WIDTH 16.5 % (11.6-17.2); WHITE BLOOD COUNT 7.6 TH/MM3 (4.0-11.0)
[2017-03-14 07:32] LABS: ALT (GPT) 11 U/L (10-53)
[2017-03-14 07:35] LABS: ALKALINE PHOSPHATASE 90 U/L (45-117); TOTAL BILIRUBIN ADULT 0.3 MG/DL (0.2-1.0)
[2017-03-14 07:57] LABS: ANION GAP 10 MEQ/L (5-15); AST (GOT) 16 U/L (15-37); BICARBONATE 25.1 MEQ/L (21.0-32.0); BLOOD UREA NITROGEN 9 MG/DL (7-18); CHLORIDE 101 MEQ/L (98-107); GLOMERULAR FILTRATION RATE 60 ML/MIN (>89); MAGNESIUM 1.6 MG/DL (1.5-2.5); POTASSIUM 3.6 MEQ/L (3.5-5.1); SODIUM (NA) 136 MEQ/L (136-145)
[2017-03-14] MEDS: RIFAMPIN 150 MG CAP PO SCH ×2 (09:27→20:33)
[2017-03-14] MEDS: FUROSEMIDE 20 MG TAB PO SCH (09:27)
[2017-03-14] MEDS: FAMOTIDINE 20 MG TAB PO SCH ×2 (09:27→20:33)
[2017-03-14] MEDS: ARTIFICIAL TEARS OPTH SOLN 15 ML BTL EACH EYE SCH ×3 (09:27→17:23)
[2017-03-14] MEDS: POTASSIUM CHLORIDE 20 MEQ CONTROLLED RELEASE TAB PO SCH (09:27)
[2017-03-14] MEDS: METHADONE HCL 10 MG/10 ML ORAL SOLUTION PO SCH ×2 (09:28→20:33)
[2017-03-14] MEDS: SODIUM CHLORIDE 0.9% FLUSH 10 ML FLUSH IV FLUSH SCH ×2 (09:28→20:33)
[2017-03-14] MEDS: DOCUSATE SODIUM 50 MG/SENNA 8.6 MG TAB PO SCH ×2 (09:28→20:33)
[2017-03-14] MEDS ORDERED: PHARMACY ORDERED LAB ONE (11:45)
[2017-03-14] MEDS: GENTAMICIN/SOD CHL 80 MG/100 ML IV SCH (12:00)
--- NOTE | 2017-03-14 18:25 | HHI.IDPN ---
Subjective Subjective Remarks extubated on the floor fully awake and alert co nausea RN unable to obtain bloofd for gent level afebrile Antibiotics ampicillin oxacillin gent rifampin Allergies: Coded Allergies: No Known Allergies (Verified , 09/01/15) Objective . Vital Signs Date Time Temp Pulse Resp B/P (MAP) Pulse Ox O2 Delivery O2 Flow Rate FiO2 03/14/17 15:47 93 03/14/17 15:24 97 21 03/14/17 12:10 97 03/14/17 12:00 98.3 112 19 114/68 (83) 100 03/14/17 09:45 T-Piece 6.00 28 03/14/17 08:00 98.2 96 19 118/72 (87) 98 03/14/17 04:30 100 Nasal Cannula 4.00 03/14/17 04:00 98.9 100 18 118/79 (92) 93 03/14/17 00:00 99.2 105 18 112/74 (87) 97 03/13/17 23:00 98 03/13/17 20:00 98.4 96 20 121/81 (94) 100 03/13/17 20:00 Nasal Cannula 2.00 03/14/17 03/14/17 03/15/17 15:00 23:00 07:00 Intake Total 300 ml Balance 300 ml IV Total 300 ml . Laboratory Tests Test 03/13/17 12:11 03/14/17 06:17 White Blood Count 8.4 TH/MM3 7.6 TH/MM3 Red Blood Count 3.66 MIL/MM3 3.49 MIL/MM3 Hemoglobin 8.9 GM/DL 8.6 GM/DL Hematocrit 28.1 % 26.5 % Mean Corpuscular Volume 76.7 FL 75.7 FL Mean Corpuscular Hemoglobin 24.3 PG 24.6 PG Mean Corpuscular Hemoglobin Concent 31.7 % 32.5 % Red Cell Distribution Width 16.4 % 16.5 % Platelet Count 415 TH/MM3 376 TH/MM3 Mean Platelet Volume 8.1 FL 8.4 FL Neutrophils (%) (Auto) 73.2 % 70.0 % Lymphocytes (%) (Auto) 17.2 % 17.7 % Monocytes (%) (Auto) 7.0 % 9.1 % Eosinophils (%) (Auto) 1.5 % 2.0 % Basophils (%) (Auto) 1.1 % 1.2 % Neutrophils # (Auto) 6.1 TH/MM3 5.3 TH/MM3 Lymphocytes # (Auto) 1.4 TH/MM3 1.4 TH/MM3 Monocytes # (Auto) 0.6 TH/MM3 0.7 TH/MM3 Eosinophils # (Auto) 0.1 TH/MM3 0.2 TH/MM3 Basophils # (Auto) 0.1 TH/MM3 0.1 TH/MM3 CBC Comment DIFF FINAL DIFF FINAL Differential Comment Hematology Comments Laboratory Tests Test 03/13/17 12:11 03/14/17 06:17 Blood Urea Nitrogen 11 MG/DL 9 MG/DL Creatinine 0.97 MG/DL 1.04 MG/DL Random Glucose 99 MG/DL 101 MG/DL Calcium Level 8.8 MG/DL 8.9 MG/DL Sodium Level 137 MEQ/L 136 MEQ/L Potassium Level 3.7 MEQ/L 3.6 MEQ/L Chloride Level 103 MEQ/L 101 MEQ/L Carbon Dioxide Level 26.6 MEQ/L 25.1 MEQ/L Anion Gap 7 MEQ/L 10 MEQ/L Estimat Glomerular Filtration Rate 65 ML/MIN 60 ML/MIN Total Protein 7.4 GM/DL Albumin 2.5 GM/DL Magnesium Level 1.6 MG/DL Alkaline Phosphatase 90 U/L Aspartate Amino Transf (AST/SGOT) 16 U/L Alanine Aminotransferase (ALT/SGPT) 11 U/L Total Bilirubin 0.3 MG/DL Imaging Last Impressions Chest X-Ray 03/13/17 0000 Signed Impressions: Service Date/Time: Monday, March 13, 2017 08:07 - CONCLUSION: Suspected mild edema/failure. Adalid Perry MD Neck CT 03/10/17 0000 Signed Impressions: Service Date/Time: Friday, March 10, 2017 11:13 - CONCLUSION: 1. Patient is intubated which limits this study. The epiglottis is otherwise normal. Secretions are present in the oropharynx and right sphenoid sinus. Alex Monahan MD Brain MRI 03/02/17 0000 Signed Impressions: Service Date/Time: Thursday, March 02, 2017 17:07 - CONCLUSION: 1. Small acute or subacute cortical infarct of the left parietal lobe. 2. Small, faint area of nonspecific flair signal abnormality in the left frontal lobe periventricular white matter, nonspecific. No associated mass effect or abnormal enhancement. 3 month followup MRI of the brain recommended. 3. Mild chronic white matter changes. Adalid Perry MD Head CT 02/26/17 0000 Signed Impressions: Service Date/Time: Sunday, February 26, 2017 19:47 - CONCLUSION: No evidence of acute infarct, hemorrhage, mass or edema. Ken Sanchez MD Physical Exam CONSTITUTIONAL/GENERAL: This is an adequately nourished patient, in no apparent distress. Sedated, int'd on mech vent TUBES/LINES/DRAINS: SKIN: No jaundice, rashes, or lesions. Skin temperature appropriate. Not diaphoretic. multiple embolic lesions cw septic embolization involving L lower leg and both feet - resolving EYES: No nystagmus Hearing OK CARDIOVASCULAR: Regular rate and rhythm w + 2-3 systo,ic murmur no gallops, or rubs. Mechanical heart sounds No JVD. Peripheral pulses symmetric. RESPIRATORY/CHEST: Symmetric, unlabored respirations. Clear to auscultation. Breath sounds equal bilaterally. GASTROINTESTINAL: Abdomen soft, non-tender, moderately distended. No hepato- splenomegaly, or palpable masses. No guarding. Bowel sounds present, hypoactive GENITOURINARY: Without palpable bladder distension. Watson catheter in place with clear yellow urine MUSCULOSKELETAL: Extremities without clubbing, Increasing 3+ edema.- worse NEUROLOGICAL fully awake and communicates following commands all 4 extremeties PSYCHIATRIC: calm Assessment & Plan Remarks Probabale recurrent prosthetic valve endocarditis , PVE due to MSSA, Ent fecalis S amp/gent - pt was previously infected with above organisms Previousy multiple episodes of PVE dw Dr Botlelo hospitalised in October 2016 for tricuspid valve PVE - [place] parapsolosis (September 20 thru October 21) , Streptoccii pt was Rx with combination diflucan 800 + micafungin 150, and was also on ambisionme at some point x 2 weeks and did not clear Confiormed bacterial meningitis 2/2 MSSA - embolic ethiology Acute VDRF, f resolved DUONG, resolved Elevated troponine ? cardiac injury from infx Not a surgical candidate ? PNA, clx negative: clincially resolved - chk diff to monitor eosinophilia which can be aw curretn abx Rx cont oxacillin + gentamin +RIfampin - hold gent untill level obtained cont ampicillin for Enterococci monitor closely creatinint and LFTs (2-3x/week) Unless more positive blood clx anticipate 6 week from 1st neg (03/01) followed by indefinite oral abx suppression tx IV abx stop date tenatively 04/12 at least weekly CBC with diff (eosinophilia) , creatinine and LFTs while on the above Rx dw Swati Lovell MD Mar 14, 2017 18:25
--- NOTE | 2017-03-14 19:08 | HHI.PR ---
Subjective Remarks Patient denies cp denies fevers/chills Feels mild sob afebrile slightly tachycardic Objective Vitals Vital Signs Date Time Temp Pulse Resp B/P (MAP) Pulse Ox O2 Delivery O2 Flow Rate FiO2 03/14/17 16:00 98.4 98 19 117/80 (92) 100 03/14/17 15:47 93 03/14/17 15:24 97 21 03/14/17 12:10 97 03/14/17 12:00 98.3 112 19 114/68 (83) 100 03/14/17 09:45 T-Piece 6.00 28 03/14/17 08:00 98.2 96 19 118/72 (87) 98 03/14/17 04:30 100 Nasal Cannula 4.00 03/14/17 04:00 98.9 100 18 118/79 (92) 93 03/14/17 00:00 99.2 105 18 112/74 (87) 97 03/13/17 23:00 98 03/13/17 20:00 98.4 96 20 121/81 (94) 100 03/13/17 20:00 Nasal Cannula 2.00 I/O 03/13/17 03/13/17 03/13/17 03/14/17 03/14/17 03/14/17 07:00 15:00 23:00 07:00 15:00 23:00 Intake Total 720 ml 1400 ml 1150 ml 946.5 ml 720 ml 500 ml Output Total 1250 ml 650 ml 1400 ml Balance 720 ml 150 ml 500 ml -453.5 ml 720 ml 500 ml Intake Oral 720 ml 500 ml 750 ml 240 ml 720 ml IV Total 900 ml 400 ml 706.5 ml 500 ml Output Urine Total 1250 ml 650 ml 1400 ml # Voids 6 4 # Bowel Movements 3 1 1 Result Diagram: 03/14/17 0617 03/14/17 0617 Imaging Last Impressions Chest X-Ray 03/13/17 0000 Signed Impressions: Service Date/Time: Monday, March 13, 2017 08:07 - CONCLUSION: Suspected mild edema/failure. Adalid Perry MD Neck CT 03/10/17 0000 Signed Impressions: Service Date/Time: Friday, March 10, 2017 11:13 - CONCLUSION: 1. Patient is intubated which limits this study. The epiglottis is otherwise normal. Secretions are present in the oropharynx and right sphenoid sinus. Alex Monahan MD Brain MRI 03/02/17 0000 Signed Impressions: Service Date/Time: Thursday, March 02, 2017 17:07 - CONCLUSION: 1. Small acute or subacute cortical infarct of the left parietal lobe. 2. Small, faint area of nonspecific flair signal abnormality in the left frontal lobe periventricular white matter, nonspecific. No associated mass effect or abnormal enhancement. 3 month followup MRI of the brain recommended. 3. Mild chronic white matter changes. Adalid Perry MD Head CT 02/26/17 0000 Signed Impressions: Service Date/Time: Sunday, February 26, 2017 19:47 - CONCLUSION: No evidence of acute infarct, hemorrhage, mass or edema. Ken Sanchez MD Objective Remarks AAOx3, nad sitting in bed decreased breath sound BL, no crackles or wheezing auscultated abdomen obese, soft, non tender Medications and IVs Current Medications Medications (Trade) Dose Ordered Sig/Jessica Route Start Time Stop Time Status Last Admin (Brethine Inj) 1 mg UNSCH PRN SQ 02/26/17 21:30 (Tylenol) 650 mg Q6H PRN PO 02/26/17 21:30 03/03/17 09:07 (Tears Naturale Opth Soln) 1 drop TID EACH EYE 02/27/17 09:00 03/14/17 09:27 (Zofran Inj) 4 mg Q6H PRN IV 02/26/17 21:30 03/14/17 02:59 (Duoneb Neb) 1 ampule Q2HR NEB PRN INH 02/26/17 21:30 03/13/17 07:35 Miscellaneous Information 1 Q361D XX 02/26/17 21:30 02/26/17 21:30 (Chlorhexidine 2% Cloth) Taper DAILY@04 TOP 02/27/17 04:00 02/23/18 03:59 03/05/17 00:07 (Chlorhexidine 2% Cloth) 3 pack UNSCH PRN TOP 02/26/17 21:30 (Armida-Colace) 1 tab BID PO 02/27/17 09:00 03/12/17 19:59 (Milk Of Magnesia Liq) 30 ml Q12H PRN PO 02/26/17 21:30 (Senokot) 17.2 mg Q12H PRN PO 02/26/17 21:30 (Dulcolax Supp) 10 mg DAILY PRN RECTAL 02/26/17 21:30 (Lactulose Liq) 30 ml DAILY PRN PO 02/26/17 21:30 (NS Flush) 2 ml UNSCH PRN IV FLUSH 02/26/17 22:45 (NS Flush) 2 ml BID IV FLUSH 02/27/17 09:00 03/14/17 09:28 Oxacillin Sodium 2 gm/Sodium Chloride 100 ml @ 200 mls/hr Q4H IV 02/27/17 18:00 03/14/17 17:21 Pharmacy Profile Note 0 ml @ 0 mls/hr UNSCH OTHER 02/27/17 15:30 Ampicillin Sodium 2000 mg/Sodium Chloride 100 ml @ 400 mls/hr Q4H IV 03/01/17 13:00 03/14/17 17:22 Gentamicin Sulfate/Sodium Chloride 100 ml @ 200 mls/hr Q12H IV 03/03/17 00:00 03/13/17 23:45 (Rifampin) 300 mg Q12HR PO 03/08/17 21:00 03/14/17 09:27 (Duoneb Neb) 1 ampule Q6HR NEB NEB 03/13/17 10:00 03/14/17 15:24 (Pepcid) 20 mg BID PO 03/13/17 09:00 03/14/17 09:27 (Heparin Inj) 5,000 units Q8H SQ 03/13/17 10:00 03/14/17 17:29 (Lasix) 20 mg DAILY PO 03/13/17 09:00 03/14/17 09:27 (KCl) 20 meq DAILY PO 03/13/17 09:00 03/14/17 09:27 (Methadone Liq) 20 mg Q12HR PO 03/13/17 21:00 03/14/17 09:28 (Morphine Inj) 3 mg Q3H PRN IV 03/13/17 15:45 03/14/17 17:26 A/P Problem List: (1) Severe sepsis ICD Code: A41.9 - Sepsis, unspecified organism; R65.20 - Severe sepsis without septic shock Plan: Sepsis present on admission, the patient presented with leukocytosis and tachycardia as well as after mental status. Initially admitted to the intensive care unit, intubated and cared for by the intensivists. Sepsis found to be secondary to meningitis. Continue IV antibiotics as per infectious disease recommendations. The patient is currently on IV ampicillin, oxacillin, gentamicin and rifampin. (2) MSSA meningitis Plan: As above. 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 (4) SVT (supraventricular tachycardia) ICD Code: I47.1 - Supraventricular tachycardia Status: Resolved Plan: SVT now resolved. Continue metoprolol. Echocardiogram revealed an ejection fraction showed 25-30%. PAP 34 mmHg Initially treated with vasopressors which the patient is now off. The patient started on Lasix 20 minute grams by mouth daily. Continue. (5) Postextubation stridor ICD Code: J95.89 - Other postprocedural complications and disorders of respiratory system, not elsewhere classified Plan: The patient initially extubated on 03/11/17. The patient was administered racemic epinephrine as needed for stridor or Continue albuterol/ipratropium inhaled treatments every 6 hours with every 2 hours as needed for albuterol therapy. Status post today treatment of dexamethasone IV every 8 hours. (6) Acute hypoxemic respiratory failure ICD Code: J96.01 - Acute respiratory failure with hypoxia Status: Resolved Plan: Continue supplemental oxygen to keep oxygen more than 92%. Status post intubation and extubation. Continue DuoNeb treatments. (7) CVA (cerebral vascular accident) ICD Code: I63.9 - Cerebral infarction, unspecified Plan: CT head negative, MRI small acute and subacute cortical infarct of the left parietal lobe. The patient was seen and evaluated by neurology. The patient is on a scheduled methadone 10 mg twice today. (8) Tricuspid regurgitation ICD Code: I07.1 - Rheumatic tricuspid insufficiency Status: Acute Plan: As seen on echo described above. Continue oral Lasix. (9) Acute systolic heart failure ICD Code: I50.21 - Acute systolic (congestive) heart failure (10) Prosthetic valve endocarditis ICD Code: T82.6XXA - Infection and inflammatory reaction due to cardiac valve prosthesis, initial encounter Status: Acute Plan: The patient has history of IV drug abuse. Continue antibiotics as per ID recommendations. Tentative a stop date is 04/12 (11) DUONG (acute kidney injury) ICD Code: N17.9 - Acute kidney failure, unspecified Status: Resolved Plan: Now resolved. Continue to monitor BMP (12) Protein calorie malnutrition ICD Code: E46 - Unspecified protein-calorie malnutrition Plan: Secondary to long-standing IV drug abuse and endocarditis. (13) Microcytic anemia ICD Code: D50.9 - Iron deficiency anemia, unspecified (14) Hyperphosphatemia ICD Code: E83.39 - Other disorders of phosphorus metabolism Plan: Now resolved. Continue to monitor levels. (15) Hypernatremia ICD Code: E87.0 - Hyperosmolality and hypernatremia Plan: Likely secondary to dehydration. Sodium now trending down. Encourage oral intake. (16) IV drug abuse ICD Code: F19.10 - Other psychoactive substance abuse, uncomplicated Status: Acute Plan: Advised cessation. Currently on methadone. Problem Qualifiers (1) Protein calorie malnutrition: Qualified Codes: E44.0 - Moderate protein-calorie malnutrition Jaylen Livingston MD Mar 14, 2017 19:08
[2017-03-15] VITALS (10 sets, daily range): BP systolic 104–118; BP diastolic 70–81; PULSE 95–108; RESP 18–20; TEMP 97.6–100.4; O2SAT 94–100
[2017-03-15] MEDS: HEPARIN SODIUM - SQ 10,000 UNITS/ML VIAL SQ SCH ×3 (01:06→16:57)
[2017-03-15] MEDS: OXACILLIN INJ 2 GM in SODIUM CHLORIDE 0.9% INJ 100 ML IV SCH ×6 (01:06→22:16)
[2017-03-15] MEDS: RESP: ALBUTEROL 2.5 MG/IPRATROPIUM 0.5 MG NEB (SCH) NEB ×4 (04:00→22:04)
[2017-03-15] MEDS: CHLORHEXIDINE GLUCONATE 2 % 1 PACK (2 CLOTHS) TOP SCH (04:00)
[2017-03-15] MEDS: ONDANSETRON HCL 4 MG/2 ML VIAL IV PRN ×2 (04:41→13:21)
[2017-03-15] MEDS: MORPHINE SULFATE 4 MG/ML INJ IV PRN ×4 (04:42→20:43)
[2017-03-15] MEDS: AMPICILLIN INJ 2,000 MG in SODIUM CHLORIDE 0.9% INJ 100 ML IV SCH ×5 (04:42→20:42)
[2017-03-15] MEDS: POTASSIUM CHLORIDE 20 MEQ CONTROLLED RELEASE TAB PO SCH (09:01)
[2017-03-15] MEDS: FAMOTIDINE 20 MG TAB PO SCH ×2 (09:01→20:43)
[2017-03-15] MEDS: RIFAMPIN 150 MG CAP PO SCH ×2 (09:01→20:42)
[2017-03-15] MEDS: SODIUM CHLORIDE 0.9% FLUSH 10 ML FLUSH IV FLUSH SCH ×2 (09:03→20:42)
[2017-03-15] MEDS: FUROSEMIDE 20 MG TAB PO SCH (09:03)
[2017-03-15] MEDS: ARTIFICIAL TEARS OPTH SOLN 15 ML BTL EACH EYE SCH ×3 (09:04→16:56)
[2017-03-15] MEDS: DOCUSATE SODIUM 50 MG/SENNA 8.6 MG TAB PO SCH ×2 (09:04→20:43)
[2017-03-15] MEDS: METHADONE HCL 10 MG/10 ML ORAL SOLUTION PO SCH ×2 (11:37→20:42)
[2017-03-15] MEDS ORDERED: PHARMACY ORDERED LAB ONE (11:45)
[2017-03-15] MEDS: GENTAMICIN/SOD CHL 80 MG/100 ML IV SCH (14:46)
--- NOTE | 2017-03-15 15:47 | HHI.PR ---
Subjective Remarks Patient c/o severe bifrontal headache denies nausea or vomiting denies cp/sob afebrile tachycardic Objective Vitals Vital Signs Date Time Temp Pulse Resp B/P (MAP) Pulse Ox O2 Delivery O2 Flow Rate FiO2 03/15/17 15:40 99 21 03/15/17 12:24 98.2 106 18 108/72 (84) 99 03/15/17 10:26 99 21 03/15/17 09:40 Room Air 03/15/17 08:08 98.4 100 19 114/70 (85) 97 03/15/17 04:20 94 03/15/17 04:00 98.2 99 18 104/77 (86) 97 03/15/17 00:11 Nasal Cannula 2.00 03/15/17 00:00 100.4 108 20 106/71 (83) 97 03/14/17 20:00 Nasal Cannula 2.00 03/14/17 20:00 98.4 108 20 109/72 (84) 96 03/14/17 16:00 98.4 98 19 117/80 (92) 100 I/O 03/14/17 03/14/17 03/14/17 03/15/17 03/15/17 03/15/17 06:59 14:59 22:59 06:59 14:59 22:59 Intake Total 946.5 ml 720 ml 500 ml 645 ml Output Total 1400 ml Balance -453.5 ml 720 ml 500 ml 645 ml Intake Oral 240 ml 720 ml 240 ml IV Total 706.5 ml 500 ml 405 ml Output Urine Total 1400 ml # Voids 4 4 # Bowel Movements 1 2 Result Diagram: 03/14/1761603/14/17616 Imaging Last Impressions Chest X-Ray 03/13/17 0000 Signed Impressions: Service Date/Time: Monday, March 13, 2017 08:07 - CONCLUSION: Suspected mild edema/failure. Adalid Perry MD Neck CT 03/10/17 0000 Signed Impressions: Service Date/Time: Friday, March 10, 2017 11:13 - CONCLUSION: 1. Patient is intubated which limits this study. The epiglottis is otherwise normal. Secretions are present in the oropharynx and right sphenoid sinus. Alex Monahan MD Brain MRI 03/02/17 0000 Signed Impressions: Service Date/Time: Thursday, March 02, 2017 17:07 - CONCLUSION: 1. Small acute or subacute cortical infarct of the left parietal lobe. 2. Small, faint area of nonspecific flair signal abnormality in the left frontal lobe periventricular white matter, nonspecific. No associated mass effect or abnormal enhancement. 3 month followup MRI of the brain recommended. 3. Mild chronic white matter changes. Adalid Perry MD Head CT 02/26/17 0000 Signed Impressions: Service Date/Time: Sunday, February 26, 2017 19:47 - CONCLUSION: No evidence of acute infarct, hemorrhage, mass or edema. Ken Sanchez MD Objective Remarks AAOx3, nad sitting in bed decreased breath sound BL, no crackles or wheezing auscultated abdomen obese, soft, non tender S1s2 qith systolic murmur Edema in lower extremity (+) 2 Procedures None Medications and IVs Current Medications Medications (Trade) Dose Ordered Sig/Jessica Route Start Time Stop Time Status Last Admin (Brethine Inj) 1 mg UNSCH PRN SQ 02/26/17 21:30 (Tylenol) 650 mg Q6H PRN PO 02/26/17 21:30 03/03/17 09:07 (Tears Naturale Opth Soln) 1 drop TID EACH EYE 02/27/17 09:00 03/14/17 09:27 (Zofran Inj) 4 mg Q6H PRN IV 02/26/17 21:30 03/15/17 13:21 (Duoneb Neb) 1 ampule Q2HR NEB PRN INH 02/26/17 21:30 03/13/17 07:35 Miscellaneous Information 1 Q361D XX 02/26/17 21:30 02/26/17 21:30 (Chlorhexidine 2% Cloth) Taper DAILY@04 TOP 02/27/17 04:00 02/23/18 03:59 03/05/17 00:07 (Chlorhexidine 2% Cloth) 3 pack UNSCH PRN TOP 02/26/17 21:30 (Armida-Colace) 1 tab BID PO 02/27/17 09:00 03/12/17 19:59 (Milk Of Magnesia Liq) 30 ml Q12H PRN PO 02/26/17 21:30 (Senokot) 17.2 mg Q12H PRN PO 02/26/17 21:30 (Dulcolax Supp) 10 mg DAILY PRN RECTAL 02/26/17 21:30 (Lactulose Liq) 30 ml DAILY PRN PO 02/26/17 21:30 (NS Flush) 2 ml UNSCH PRN IV FLUSH 02/26/17 22:45 (NS Flush) 2 ml BID IV FLUSH 02/27/17 09:00 03/15/17 09:03 Oxacillin Sodium 2 gm/Sodium Chloride 100 ml @ 200 mls/hr Q4H IV 02/27/17 18:00 03/15/17 15:40 Pharmacy Profile Note 0 ml @ 0 mls/hr UNSCH OTHER 02/27/17 15:30 Ampicillin Sodium 2000 mg/Sodium Chloride 100 ml @ 400 mls/hr Q4H IV 03/01/17 13:00 03/15/17 14:46 Gentamicin Sulfate/Sodium Chloride 100 ml @ 200 mls/hr Q12H IV 03/03/17 00:00 03/15/17 14:46 (Rifampin) 300 mg Q12HR PO 03/08/17 21:00 03/15/17 09:01 (Duoneb Neb) 1 ampule Q6HR NEB NEB 03/13/17 10:00 03/15/17 10:25 (Pepcid) 20 mg BID PO 03/13/17 09:00 03/15/17 09:01 (Heparin Inj) 5,000 units Q8H SQ 03/13/17 10:00 03/15/17 09:01 (KCl) 20 meq DAILY PO 03/13/17 09:00 03/15/17 09:01 (Methadone Liq) 20 mg Q12HR PO 03/13/17 21:00 03/15/17 11:37 (Morphine Inj) 3 mg Q3H PRN IV 03/13/17 15:45 03/15/17 15:41 (Tylenol) 1,000 mg Q4H PRN PO 03/15/17 16:00 UNV (Lasix) 40 mg DAILY PO 03/16/17 09:00 UNV (Lasix) 20 mg ONCE ONCE PO 03/15/17 16:00 03/15/17 16:01 UNV Urinary Catheter: No Vascular Central Line Catheter: No A/P Problem List: (1) Severe sepsis ICD Code: A41.9 - Sepsis, unspecified organism; R65.20 - Severe sepsis without septic shock Status: Acute Plan: Sepsis present on admission, the patient presented with leukocytosis and tachycardia as well as after mental status. Initially admitted to the intensive care unit, intubated and cared for by the intensivists. Sepsis found to be secondary to meningitis. Continue IV antibiotics as per infectious disease recommendations. The patient is currently on IV ampicillin, oxacillin, gentamicin and rifampin - continue. Unless more positive blood clx anticipate 6 week from 1st neg (03/01) followed by indefinite oral abx suppression tx. IV abx stop date tentatively. Gentamycin trough 2.0 (2) MSSA meningitis Status: Acute Plan: As above. 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 (4) SVT (supraventricular tachycardia) ICD Code: I47.1 - Supraventricular tachycardia Status: Resolved Plan: SVT now resolved. Continue metoprolol. Echocardiogram revealed an ejection fraction showed 25-30%. PAP 34 mmHg Initially treated with vasopressors which the patient is now off. The patient started on Lasix 20 minute grams by mouth daily. Continue. (5) Postextubation stridor ICD Code: J95.89 - Other postprocedural complications and disorders of respiratory system, not elsewhere classified Status: Resolved Plan: The patient initially extubated on 03/11/17. The patient was administered racemic epinephrine as needed for stridor or Continue albuterol/ipratropium inhaled treatments every 6 hours with every 2 hours as needed for albuterol therapy. Status post today treatment of dexamethasone IV every 8 hours. (6) Acute hypoxemic respiratory failure ICD Code: J96.01 - Acute respiratory failure with hypoxia Status: Resolved Plan: Continue supplemental oxygen to keep oxygen more than 92%. Status post intubation and extubation. Continue DuoNeb treatments. (7) CVA (cerebral vascular accident) ICD Code: I63.9 - Cerebral infarction, unspecified Plan: CT head negative, MRI small acute and subacute cortical infarct of the left parietal lobe. The patient was seen and evaluated by neurology. The patient is on a scheduled methadone 10 mg twice today. (8) Tricuspid regurgitation ICD Code: I07.1 - Rheumatic tricuspid insufficiency Status: Acute Plan: As seen on echo described above. Continue oral Lasix. (9) Acute systolic heart failure ICD Code: I50.21 - Acute systolic (congestive) heart failure Plan: Continue Lasix orally. Increase Lasix to 40 mg po daily. (10) Prosthetic valve endocarditis ICD Code: T82.6XXA - Infection and inflammatory reaction due to cardiac valve prosthesis, initial encounter Status: Acute Plan: The patient has history of IV drug abuse. Continue antibiotics as per ID recommendations. Tentative a stop date is 04/12 (11) DUONG (acute kidney injury) ICD Code: N17.9 - Acute kidney failure, unspecified Status: Resolved Plan: Now resolved. Continue to monitor BMP (12) Protein calorie malnutrition ICD Code: E46 - Unspecified protein-calorie malnutrition Plan: Secondary to long-standing IV drug abuse and endocarditis. (13) Microcytic anemia ICD Code: D50.9 - Iron deficiency anemia, unspecified Plan: Hemoglobin seems to be stable at 8.6. I will check iron studies and stool Hemoccult for blood. Patient had iron studies previously concordant with iron deficiency anemia. I will start the patient on oral iron sulfate. (14) Hyperphosphatemia ICD Code: E83.39 - Other disorders of phosphorus metabolism Plan: Now resolved. Continue to monitor levels. (15) Hypernatremia ICD Code: E87.0 - Hyperosmolality and hypernatremia Plan: Likely secondary to dehydration. Sodium now within normal range. Continue to monitor BMP. (16) IV drug abuse ICD Code: F19.10 - Other psychoactive substance abuse, uncomplicated Status: Acute Plan: Advised cessation. Currently on methadone. (17) Headache ICD Code: R51 - Headache Plan: Headache is bifrontal, patient is afebrile. Will start the patient on acetaminophen thousand milligrams by mouth every 6 hours as needed for headache. Assessment and Plan GI prophylaxis: Continue famotidine. DVT prophylaxis: SCDs, ambulation. Problem Qualifiers (1) CVA (cerebral vascular accident): Qualified Codes: I63.9 - Cerebral infarction, unspecified (2) Protein calorie malnutrition: Qualified Codes: E44.0 - Moderate protein-calorie malnutrition Jaylen Livingston MD Mar 15, 2017 15:47
[2017-03-15] MEDS ORDERED: FUROSEMIDE 20 MG TAB PO ONE (16:00)
[2017-03-15] MEDS ORDERED: ACETAMINOPHEN 325 MG TAB PO PRN (16:00)
[2017-03-15] MEDS: ACETAMINOPHEN 325 MG TAB PO PRN (16:55)
[2017-03-16] VITALS (11 sets, daily range): BP systolic 92–128; BP diastolic 60–88; PULSE 93–104; RESP 18–20; TEMP 97.7–99.1; O2SAT 95–100
[2017-03-16] MEDS: GENTAMICIN/SOD CHL 80 MG/100 ML IV SCH ×2 (00:03→12:50)
[2017-03-16] MEDS: AMPICILLIN INJ 2,000 MG in SODIUM CHLORIDE 0.9% INJ 100 ML IV SCH ×6 (00:03→21:32)
[2017-03-16] MEDS: HEPARIN SODIUM - SQ 10,000 UNITS/ML VIAL SQ SCH ×3 (01:46→18:24)
[2017-03-16] MEDS: OXACILLIN INJ 2 GM in SODIUM CHLORIDE 0.9% INJ 100 ML IV SCH ×6 (01:46→23:47)
[2017-03-16] MEDS: SODIUM CHLORIDE 0.9% FLUSH 10 ML FLUSH IV FLUSH PRN (01:47)
[2017-03-16] MEDS: MORPHINE SULFATE 4 MG/ML INJ IV PRN ×7 (01:47→22:33)
[2017-03-16] MEDS: ONDANSETRON HCL 4 MG/2 ML VIAL IV PRN ×2 (01:55→12:47)
[2017-03-16] MEDS: RESP: ALBUTEROL 2.5 MG/IPRATROPIUM 0.5 MG NEB (SCH) NEB ×4 (03:48→21:00)
[2017-03-16] MEDS: CHLORHEXIDINE GLUCONATE 2 % 1 PACK (2 CLOTHS) TOP SCH (04:00)
[2017-03-16] MEDS: ACETAMINOPHEN 325 MG TAB PO PRN (05:03)
[2017-03-16] MEDS: METHADONE HCL 10 MG/10 ML ORAL SOLUTION PO SCH ×2 (08:38→21:29)
[2017-03-16] MEDS: RIFAMPIN 150 MG CAP PO SCH ×2 (08:39→21:28)
[2017-03-16] MEDS: FUROSEMIDE 20 MG TAB PO SCH (08:39)
[2017-03-16] MEDS: FAMOTIDINE 20 MG TAB PO SCH ×2 (08:39→21:28)
[2017-03-16] MEDS: POTASSIUM CHLORIDE 20 MEQ CONTROLLED RELEASE TAB PO SCH (08:40)
[2017-03-16] MEDS: DOCUSATE SODIUM 50 MG/SENNA 8.6 MG TAB PO SCH ×2 (08:41→21:00)
[2017-03-16] MEDS: SODIUM CHLORIDE 0.9% FLUSH 10 ML FLUSH IV FLUSH SCH ×2 (08:41→23:47)
[2017-03-16] MEDS: ARTIFICIAL TEARS OPTH SOLN 15 ML BTL EACH EYE SCH ×3 (08:41→17:10)
--- NOTE | 2017-03-16 15:41 | HHI.PR ---
Subjective Remarks Patient c/o difuse abdominal pain, some headache States has had diarrhea today, nursing states she has not complained of either of those today. denies palpitations denies fevers/chills denies sob/cp Objective Vitals Vital Signs Date Time Temp Pulse Resp B/P (MAP) Pulse Ox O2 Delivery O2 Flow Rate FiO2 03/16/17 11:49 97.7 95 19 126/77 (93) 100 03/16/17 10:44 100 21 03/16/17 08:50 93 03/16/17 08:50 Room Air 03/16/17 08:00 98.2 94 19 117/75 (89) 100 03/16/17 05:02 99.1 101 20 115/78 (90) 100 03/16/17 04:00 97.8 97 20 111/76 (88) 97 03/16/17 00:00 97.9 97 20 116/86 (96) 98 03/15/17 21:20 Room Air 03/15/17 20:00 96 03/15/17 20:00 97.6 95 20 118/73 (88) 99 03/15/17 16:29 98.5 99 18 113/81 (92) 100 03/15/17 15:59 106 03/15/17 15:40 99 21 I/O 03/15/17 03/15/17 03/15/17 03/16/17 03/16/17 03/16/17 06:59 14:59 22:59 06:59 14:59 22:59 Intake Total 645 ml 200 ml 1100 ml 500 ml 1100 ml Balance 645 ml 200 ml 1100 ml 500 ml 1100 ml Intake Oral 240 ml 600 ml 700 ml IV Total 405 ml 200 ml 500 ml 500 ml 400 ml # Voids 4 3 3 5 # Bowel Movements 2 1 0 1 Result Diagram: 03/14/17 0617 03/14/17616 Imaging Last Impressions Chest X-Ray 03/13/17 0000 Signed Impressions: Service Date/Time: Monday, March 13, 2017 08:07 - CONCLUSION: Suspected mild edema/failure. Adalid Perry MD Neck CT 03/10/17 0000 Signed Impressions: Service Date/Time: Friday, March 10, 2017 11:13 - CONCLUSION: 1. Patient is intubated which limits this study. The epiglottis is otherwise normal. Secretions are present in the oropharynx and right sphenoid sinus. Alex Monahan MD Brain MRI 03/02/17 0000 Signed Impressions: Service Date/Time: Thursday, March 02, 2017 17:07 - CONCLUSION: 1. Small acute or subacute cortical infarct of the left parietal lobe. 2. Small, faint area of nonspecific flair signal abnormality in the left frontal lobe periventricular white matter, nonspecific. No associated mass effect or abnormal enhancement. 3 month followup MRI of the brain recommended. 3. Mild chronic white matter changes. Adalid Perry MD Head CT 02/26/17 0000 Signed Impressions: Service Date/Time: Sunday, February 26, 2017 19:47 - CONCLUSION: No evidence of acute infarct, hemorrhage, mass or edema. Ken Sanchez MD Objective Remarks AAOx3, nad sitting in bed decreased breath sound BL, no crackles or wheezing auscultated abdomen obese, soft, tender to palpation diffusely S1s2 qith systolic murmur Edema in lower extremities (+) 2 Procedures None Medications and IVs Current Medications Medications (Trade) Dose Ordered Sig/Jessica Route Start Time Stop Time Status Last Admin (Brethine Inj) 1 mg UNSCH PRN SQ 02/26/17 21:30 (Tylenol) 650 mg Q6H PRN PO 02/26/17 21:30 03/03/17 09:07 (Tears Naturale Opth Soln) 1 drop TID EACH EYE 02/27/17 09:00 03/14/17 09:27 (Zofran Inj) 4 mg Q6H PRN IV 02/26/17 21:30 03/16/17 12:47 (Duoneb Neb) 1 ampule Q2HR NEB PRN INH 02/26/17 21:30 03/13/17 07:35 Miscellaneous Information 1 Q361D XX 02/26/17 21:30 02/26/17 21:30 (Chlorhexidine 2% Cloth) Taper DAILY@04 TOP 02/27/17 04:00 02/23/18 03:59 03/05/17 00:07 (Chlorhexidine 2% Cloth) 3 pack UNSCH PRN TOP 02/26/17 21:30 (Armida-Colace) 1 tab BID PO 02/27/17 09:00 03/12/17 19:59 (Milk Of Magnesia Liq) 30 ml Q12H PRN PO 02/26/17 21:30 (Senokot) 17.2 mg Q12H PRN PO 02/26/17 21:30 (Dulcolax Supp) 10 mg DAILY PRN RECTAL 02/26/17 21:30 (Lactulose Liq) 30 ml DAILY PRN PO 02/26/17 21:30 (NS Flush) 2 ml UNSCH PRN IV FLUSH 02/26/17 22:45 03/16/17 01:47 (NS Flush) 2 ml BID IV FLUSH 02/27/17 09:00 03/16/17 08:41 Oxacillin Sodium 2 gm/Sodium Chloride 100 ml @ 200 mls/hr Q4H IV 02/27/17 18:00 03/16/17 12:41 Pharmacy Profile Note 0 ml @ 0 mls/hr UNSCH OTHER 02/27/17 15:30 Ampicillin Sodium 2000 mg/Sodium Chloride 100 ml @ 400 mls/hr Q4H IV 03/01/17 13:00 03/16/17 12:42 Gentamicin Sulfate/Sodium Chloride 100 ml @ 200 mls/hr Q12H IV 03/03/17 00:00 03/16/17 12:50 (Rifampin) 300 mg Q12HR PO 03/08/17 21:00 03/16/17 08:39 (Duoneb Neb) 1 ampule Q6HR NEB NEB 03/13/17 10:00 03/15/17 22:04 (Pepcid) 20 mg BID PO 03/13/17 09:00 03/16/17 08:39 (Heparin Inj) 5,000 units Q8H SQ 03/13/17 10:00 03/16/17 10:43 (KCl) 20 meq DAILY PO 03/13/17 09:00 03/16/17 08:40 (Methadone Liq) 20 mg Q12HR PO 03/13/17 21:00 03/16/17 08:38 (Morphine Inj) 3 mg Q3H PRN IV 03/13/17 15:45 03/16/17 14:20 (Tylenol) 1,000 mg Q4H PRN PO 03/15/17 16:00 03/16/17 05:03 (Lasix) 40 mg DAILY PO 03/16/17 09:00 03/16/17 08:39 A/P Problem List: (1) Severe sepsis ICD Code: A41.9 - Sepsis, unspecified organism; R65.20 - Severe sepsis without septic shock Status: Acute Plan: Sepsis present on admission, the patient presented with leukocytosis and tachycardia as well as after mental status. Initially admitted to the intensive care unit, intubated and cared for by the intensivists. Sepsis found to be secondary to meningitis. Continue IV antibiotics as per infectious disease recommendations. The patient is currently on IV ampicillin, oxacillin, gentamicin and rifampin - continue. Unless more positive blood cx anticipate 6 week from 1st neg (03/01) followed by indefinite oral abx suppression tx. IV abx stop date tentatively. Gentamycin trough 2.0 (2) MSSA meningitis Status: Acute Plan: As above. 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 (4) SVT (supraventricular tachycardia) ICD Code: I47.1 - Supraventricular tachycardia Status: Resolved Plan: SVT now resolved. Continue metoprolol. Echocardiogram revealed an ejection fraction showed 25-30%. PAP 34 mmHg Initially treated with vasopressors which the patient is now off. The patient started on Lasix 20 minute grams by mouth daily. Continue. (5) Postextubation stridor ICD Code: J95.89 - Other postprocedural complications and disorders of respiratory system, not elsewhere classified Status: Resolved Plan: The patient initially extubated on 03/11/17. The patient was administered racemic epinephrine as needed for stridor or Continue albuterol/ipratropium inhaled treatments every 6 hours with every 2 hours as needed for albuterol therapy. Status post today treatment of dexamethasone IV every 8 hours. (6) Acute hypoxemic respiratory failure ICD Code: J96.01 - Acute respiratory failure with hypoxia Status: Resolved Plan: Continue supplemental oxygen to keep oxygen more than 92%. Status post intubation and extubation. Continue DuoNeb treatments. (7) CVA (cerebral vascular accident) ICD Code: I63.9 - Cerebral infarction, unspecified Plan: CT head negative, MRI small acute and subacute cortical infarct of the left parietal lobe. The patient was seen and evaluated by neurology. The patient is on a scheduled methadone 10 mg twice today. (8) Tricuspid regurgitation ICD Code: I07.1 - Rheumatic tricuspid insufficiency Status: Acute Plan: As seen on echo described above. Continue oral Lasix. (9) Acute systolic heart failure ICD Code: I50.21 - Acute systolic (congestive) heart failure Plan: Continue Lasix orally. continue Lasix 40 mg po daily. (10) Prosthetic valve endocarditis ICD Code: T82.6XXA - Infection and inflammatory reaction due to cardiac valve prosthesis, initial encounter Status: Acute Plan: The patient has history of IV drug abuse. Continue antibiotics as per ID recommendations. Tentative a stop date is 04/12 (11) DUONG (acute kidney injury) ICD Code: N17.9 - Acute kidney failure, unspecified Status: Resolved Plan: Now resolved. Continue to monitor BMP (12) Protein calorie malnutrition ICD Code: E46 - Unspecified protein-calorie malnutrition Plan: Secondary to long-standing IV drug abuse and endocarditis. (13) Microcytic anemia ICD Code: D50.9 - Iron deficiency anemia, unspecified Plan: Hemoglobin seems to be stable at 8.6. I will check iron studies and stool Hemoccult for blood. Patient had iron studies previously concordant with iron deficiency anemia. I will start the patient on oral iron sulfate. (14) Hyperphosphatemia ICD Code: E83.39 - Other disorders of phosphorus metabolism Plan: Now resolved. Continue to monitor levels. (15) Hypernatremia ICD Code: E87.0 - Hyperosmolality and hypernatremia Plan: Likely secondary to dehydration. Sodium now within normal range. Continue to monitor BMP. (16) IV drug abuse ICD Code: F19.10 - Other psychoactive substance abuse, uncomplicated Status: Acute Plan: Advised cessation. Currently on methadone. (17) Headache ICD Code: R51 - Headache Plan: Headache is bifrontal, patient is afebrile. Continue Acetaminophen 1000 mg po Q 6 hrs prn headache. (18) Abdominal pain ICD Code: R10.9 - Unspecified abdominal pain Plan: check CT abdomen and pelvis. Check stool for C diff PCR. Assessment and Plan GI prophylaxis: Continue famotidine. DVT prophylaxis: SCDs, ambulation. Problem Qualifiers (1) CVA (cerebral vascular accident): Qualified Codes: I63.9 - Cerebral infarction, unspecified (2) Protein calorie malnutrition: Qualified Codes: E44.0 - Moderate protein-calorie malnutrition Jaylen Livingston MD Mar 16, 2017 15:40
[2017-03-16] MEDS ORDERED: DIATRIZOATE MEGLUM/DIATRIZOATE SOD 9 ML CUP PO ONE (16:00)
[2017-03-16] MEDS ORDERED: IOHEXOL 350 MG/ML 10 ML VIAL (for RAD DIAG) IVCONTRAST ONE (20:45)
--- NOTE | 2017-03-16 20:56 | RADRPT ---
EXAM DATE/TIME: 03/16/2017 20:26 [facility] COMPARISON: No previous studies available for comparison. INDICATIONS : Diffuse lower abdomen pain. IV CONTRAST: 96 cc Omnipaque 350 (iohexol) IV ORAL CONTRAST: Prescribed oral contrast ingested. RADIATION DOSE: 12.8 CTDIvol (mGy) MEDICAL HISTORY : Cardiovascular disease. Congestive heart failure. Hepatitis C. SURGICAL HISTORY : None. ENCOUNTER: Initial ACUITY: 1 week PAIN SCALE: 6/10 LOCATION: Bilateral lower quadrant TECHNIQUE: Volumetric scanning of the abdomen was performed. Using automated exposure control and adjustment of the mA and/or kV according to patient size, radiation dose was kept as low as reasonably achievable to obtain optimal diagnostic quality images. DICOM format image data is available electronically for review and comparison. FINDINGS: Minimal subsegmental airspace disease at the lung bases. No pleural or pericardial effusion. Previous aortic valve replacement and external pacer leads present. No acute findings in the liver. Peripheral low attenuation lesions in the spleen are most characteris tic of splenic infarcts. Adrenals, kidneys and pancreas demonstrate no acute findings. No calcified g allstones or biliary ductal dilatation. Small fat-containing ventral hernia measuring about 4 cm in m aximal diameter. Also small fat-containing umbilical hernia. Pelvis demonstrates intrauterine device. 3.4 cm right ovarian cyst. No obstruction of bowel. No free air or free fluid. Appendix normal. No acute bony anomalies. CONCLUSION: 1. Peripheral low attenuation lesions in the spleen most characteristic of multiple splenic infarcts. Some of these are new findings since 2016 comparison. 2. Minimal subsegmental airspace disease at the lung bases. 3. 3.4 cm right adnexal cyst. Intrauterine device present. 4. Small fat containing ventral hernias. Eliud Campoverde MD on March 16, 2017 at 20:49 Board Certified Radiologist. This report was verified electronically.
[2017-03-17] VITALS (7 sets, daily range): BP systolic 107–123; BP diastolic 65–81; PULSE 96–105; RESP 16–20; TEMP 97.2–99.4; O2SAT 97–100
[2017-03-17] MEDS: GENTAMICIN/SOD CHL 80 MG/100 ML IV SCH ×3 (00:36→22:24)
[2017-03-17] MEDS: AMPICILLIN INJ 2,000 MG in SODIUM CHLORIDE 0.9% INJ 100 ML IV SCH ×6 (01:45→21:18)
[2017-03-17] MEDS: SODIUM CHLORIDE 0.9% FLUSH 10 ML FLUSH IV FLUSH PRN ×3 (01:47→22:22)
[2017-03-17] MEDS: MORPHINE SULFATE 4 MG/ML INJ IV PRN ×6 (01:47→22:21)
[2017-03-17] MEDS: HEPARIN SODIUM - SQ 10,000 UNITS/ML VIAL SQ SCH ×3 (01:52→18:00)
[2017-03-17] MEDS: OXACILLIN INJ 2 GM in SODIUM CHLORIDE 0.9% INJ 100 ML IV SCH ×6 (02:55→21:13)
[2017-03-17] MEDS: RESP: ALBUTEROL 2.5 MG/IPRATROPIUM 0.5 MG NEB (SCH) NEB (04:00)
[2017-03-17] MEDS: CHLORHEXIDINE GLUCONATE 2 % 1 PACK (2 CLOTHS) TOP SCH (04:00)
[2017-03-17] MEDS: ARTIFICIAL TEARS OPTH SOLN 15 ML BTL EACH EYE SCH ×3 (09:00→18:00)
[2017-03-17] MEDS: DOCUSATE SODIUM 50 MG/SENNA 8.6 MG TAB PO SCH ×2 (09:00→21:00)
[2017-03-17] MEDS: RIFAMPIN 150 MG CAP PO SCH ×2 (09:53→21:12)
[2017-03-17] MEDS: FUROSEMIDE 20 MG TAB PO SCH (09:53)
[2017-03-17] MEDS: FAMOTIDINE 20 MG TAB PO SCH ×2 (09:54→21:12)
[2017-03-17] MEDS: METHADONE HCL 10 MG/10 ML ORAL SOLUTION PO SCH ×2 (09:55→21:10)
[2017-03-17] MEDS: POTASSIUM CHLORIDE 20 MEQ CONTROLLED RELEASE TAB PO SCH (09:59)
[2017-03-17] MEDS: SODIUM CHLORIDE 0.9% FLUSH 10 ML FLUSH IV FLUSH SCH ×2 (10:00→21:11)
--- NOTE | 2017-03-17 11:04 | HHI.PR ---
Subjective Remarks Had 5 BM yesterday diarrhea and 3 since morning. Says she has some cramps associated. No nausea or vomiting able to keep down some food. Did not give ample to check for Cdiff . Discussed with the patient say she will give stool sample. Discussed with the nurse as well. Headache improved, she is alert and oriented. No neck rigidity. Objective Vitals Vital Signs Date Time Temp Pulse Resp B/P (MAP) Pulse Ox O2 Delivery O2 Flow Rate FiO2 03/17/17 04:00 99.1 97 16 107/71 (83) 97 03/17/17 00:00 97.9 96 20 123/74 (90) 100 03/16/17 20:00 Room Air 03/16/17 20:00 98.1 96 18 115/68 (84) 99 03/16/17 19:45 104 03/16/17 16:00 98.3 102 19 128/88 (101) 95 03/16/17 11:49 97.7 95 19 126/77 (93) 100 I/O 03/16/17 03/16/17 03/16/17 03/17/17 03/17/17 03/17/17 06:59 14:59 22:59 06:59 14:59 22:59 Intake Total 500 ml 1100 ml 1080 ml Balance 500 ml 1100 ml 1080 ml Intake Oral 700 ml 480 ml IV Total 500 ml 400 ml 600 ml # Voids 3 5 3 # Bowel Movements 0 1 Result Diagram: 03/14/1761603/14/17616 Imaging Last Impressions Abdomen CT 03/16/17 0000 Signed Impressions: Service Date/Time: Thursday, March 16, 2017 20:26 - CONCLUSION: 1. Peripheral low attenuation lesions in the spleen most characteristic of multiple splenic infarcts. Some of these are new findings since 2016 comparison. 2. Minimal subsegmental airspace disease at the lung bases. 3. 3.4 cm right adnexal cyst. Intrauterine device present. 4. Small fat containing ventral hernias. Eliud Campoverde MD Chest X-Ray 03/13/17 0000 Signed Impressions: Service Date/Time: Monday, March 13, 2017 08:07 - CONCLUSION: Suspected mild edema/failure. Adalid Perry MD Neck CT 03/10/17 0000 Signed Impressions: Service Date/Time: Friday, March 10, 2017 11:13 - CONCLUSION: 1. Patient is intubated which limits this study. The epiglottis is otherwise normal. Secretions are present in the oropharynx and right sphenoid sinus. Alex Monahan MD Brain MRI 03/02/17 0000 Signed Impressions: Service Date/Time: Thursday, March 02, 2017 17:07 - CONCLUSION: 1. Small acute or subacute cortical infarct of the left parietal lobe. 2. Small, faint area of nonspecific flair signal abnormality in the left frontal lobe periventricular white matter, nonspecific. No associated mass effect or abnormal enhancement. 3 month followup MRI of the brain recommended. 3. Mild chronic white matter changes. Adalid Perry MD Head CT 02/26/17 0000 Signed Impressions: Service Date/Time: Sunday, February 26, 2017 19:47 - CONCLUSION: No evidence of acute infarct, hemorrhage, mass or edema. Ken Sanchez MD Objective Remarks GENERAL: Young female, appears in nad. SKIN: Warm and dry. CARDIOVASCULAR: Regular rate and rhythm with systolic murmur. RESPIRATORY: Decreased breath sound BL, no crackles or wheezing auscultated. No accessory muscle use. GASTROINTESTINAL: Abdomen soft, non-tender, nondistended. MUSCULOSKELETAL: No cyanosis. +2 LE edema. BACK: Nontender without obvious deformity. No CVA tenderness. 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 Status: Acute (4) SVT (supraventricular tachycardia) ICD Code: I47.1 - Supraventricular tachycardia Status: Resolved (5) Postextubation stridor ICD Code: J95.89 - Other postprocedural complications and disorders of respiratory system, not elsewhere classified Status: Resolved (6) Acute hypoxemic respiratory failure ICD Code: J96.01 - Acute respiratory failure with hypoxia Status: Resolved (7) CVA (cerebral vascular accident) ICD Code: I63.9 - Cerebral infarction, unspecified (8) Tricuspid regurgitation ICD Code: I07.1 - Rheumatic tricuspid insufficiency Status: Acute (9) Acute systolic heart failure ICD Code: I50.21 - Acute systolic (congestive) heart failure (10) Prosthetic valve endocarditis ICD Code: T82.6XXA - Infection and inflammatory reaction due to cardiac valve prosthesis, initial encounter Status: Acute (11) DUONG (acute kidney injury) ICD Code: N17.9 - Acute kidney failure, unspecified Status: Resolved (12) Protein calorie malnutrition ICD Code: E46 - Unspecified protein-calorie malnutrition (13) Microcytic anemia ICD Code: D50.9 - Iron deficiency anemia, unspecified (14) Hyperphosphatemia ICD Code: E83.39 - Other disorders of phosphorus metabolism (15) Hypernatremia ICD Code: E87.0 - Hyperosmolality and hypernatremia (16) IV drug abuse ICD Code: F19.10 - Other psychoactive substance abuse, uncomplicated Status: Acute (17) Headache ICD Code: R51 - Headache (18) Abdominal pain ICD Code: R10.9 - Unspecified abdominal pain Assessment and Plan (1) Severe sepsis ICD Code: A41.9 - Sepsis, unspecified organism; R65.20 - Severe sepsis without septic shock Status: Acute Plan: Sepsis present on admission, the patient presented with leukocytosis and tachycardia as well as after mental status. Initially admitted to the intensive care unit, intubated and cared for by the intensivists. Sepsis found to be secondary to meningitis. Continue IV antibiotics as per infectious disease recommendations. The patient is currently on IV ampicillin, oxacillin, gentamicin and rifampin - continue. Unless more positive blood cx anticipate 6 week from 1st neg (03/01) followed by indefinite oral abx suppression tx. IV abx stop date tentatively. Gentamycin trough 2.0 (2) MSSA meningitis Status: Acute Plan: As above. 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 (4) SVT (supraventricular tachycardia) ICD Code: I47.1 - Supraventricular tachycardia Status: Resolved Plan: SVT now resolved. Continue metoprolol. Echocardiogram revealed an ejection fraction showed 25-30%. PAP 34 mmHg Initially treated with vasopressors which the patient is now off. The patient started on Lasix 20 minute grams by mouth daily. Continue. (5) Postextubation stridor ICD Code: J95.89 - Other postprocedural complications and disorders of respiratory system, not elsewhere classified Status: Resolved Plan: The patient initially extubated on 03/11/17. The patient was administered racemic epinephrine as needed for stridor or Continue albuterol/ipratropium inhaled treatments every 6 hours with every 2 hours as needed for albuterol therapy. Status post today treatment of dexamethasone IV every 8 hours. (6) Acute hypoxemic respiratory failure ICD Code: J96.01 - Acute respiratory failure with hypoxia Status: Resolved Plan: Continue supplemental oxygen to keep oxygen more than 92%. Status post intubation and extubation. Continue DuoNeb treatments. (7) CVA (cerebral vascular accident) ICD Code: I63.9 - Cerebral infarction, unspecified Plan: CT head negative, MRI small acute and subacute cortical infarct of the left parietal lobe. The patient was seen and evaluated by neurology. The patient is on a scheduled methadone 10 mg twice today. (8) Tricuspid regurgitation ICD Code: I07.1 - Rheumatic tricuspid insufficiency Status: Acute Plan: As seen on echo described above. Continue oral Lasix. (9) Acute systolic heart failure ICD Code: I50.21 - Acute systolic (congestive) heart failure Plan: Continue Lasix orally. continue Lasix 40 mg po daily. (10) Prosthetic valve endocarditis ICD Code: T82.6XXA - Infection and inflammatory reaction due to cardiac valve prosthesis, initial encounter Status: Acute Plan: The patient has history of IV drug abuse. Continue antibiotics as per ID recommendations. Tentative a stop date is 04/12 (11) DUONG (acute kidney injury) ICD Code: N17.9 - Acute kidney failure, unspecified Status: Resolved Plan: Now resolved. Continue to monitor BMP (12) Protein calorie malnutrition ICD Code: E46 - Unspecified protein-calorie malnutrition Plan: Secondary to long-standing IV drug abuse and endocarditis. (13) Microcytic anemia ICD Code: D50.9 - Iron deficiency anemia, unspecified Plan: Hemoglobin seems to be stable at 8.6. I will check iron studies and stool Hemoccult for blood. Patient had iron studies previously concordant with iron deficiency anemia. I will start the patient on oral iron sulfate. (14) Hyperphosphatemia ICD Code: E83.39 - Other disorders of phosphorus metabolism Plan: Now resolved. Continue to monitor levels. (15) Hypernatremia ICD Code: E87.0 - Hyperosmolality and hypernatremia Plan: Likely secondary to dehydration. Sodium now within normal range. Continue to monitor BMP. (16) IV drug abuse ICD Code: F19.10 - Other psychoactive substance abuse, uncomplicated Status: Acute Plan: Advised cessation. Currently on methadone. (17) Headache ICD Code: R51 - Headache Plan: Headache is bifrontal, patient is afebrile. Continue Acetaminophen 1000 mg po Q 6 hrs prn headache. (18) Abdominal pain ICD Code: R10.9 - Unspecified abdominal pain Plan: check CT abdomen and pelvis. Check stool for C diff PCR. (19) Diarrhea Plan: Check for C diff. Will add probiotic. Assessment and Plan GI prophylaxis: Continue famotidine. DVT prophylaxis: SCDs, ambulation. DC plan: needs inpatient treatment. DC when cleared by ID specialist. Problem Qualifiers (1) CVA (cerebral vascular accident): Qualified Codes: I63.9 - Cerebral infarction, unspecified (2) Protein calorie malnutrition: Qualified Codes: E44.0 - Moderate protein-calorie malnutrition Anna Henderson MD Mar 17, 2017 11:04
[2017-03-18] VITALS (7 sets, daily range): BP systolic 100–131; BP diastolic 55–73; PULSE 91–114; RESP 18–20; TEMP 98.2–98.6; O2SAT 96–100
[2017-03-18] MEDS: AMPICILLIN INJ 2,000 MG in SODIUM CHLORIDE 0.9% INJ 100 ML IV SCH ×6 (02:02→19:58)
[2017-03-18] MEDS: OXACILLIN INJ 2 GM in SODIUM CHLORIDE 0.9% INJ 100 ML IV SCH ×6 (02:03→21:25)
[2017-03-18] MEDS: MORPHINE SULFATE 4 MG/ML INJ IV PRN ×6 (02:04→21:25)
[2017-03-18] MEDS: SODIUM CHLORIDE 0.9% FLUSH 10 ML FLUSH IV FLUSH PRN ×2 (02:05→06:10)
[2017-03-18] MEDS: HEPARIN SODIUM - SQ 10,000 UNITS/ML VIAL SQ SCH ×2 (02:07→08:41)
[2017-03-18] MEDS: CHLORHEXIDINE GLUCONATE 2 % 1 PACK (2 CLOTHS) TOP SCH (03:51)
[2017-03-18] MEDS: ARTIFICIAL TEARS OPTH SOLN 15 ML BTL EACH EYE SCH ×3 (08:38→18:00)
[2017-03-18] MEDS: FAMOTIDINE 20 MG TAB PO SCH ×2 (08:40→19:58)
[2017-03-18] MEDS: FUROSEMIDE 20 MG TAB PO SCH (08:40)
[2017-03-18] MEDS: POTASSIUM CHLORIDE 20 MEQ CONTROLLED RELEASE TAB PO SCH (08:40)
[2017-03-18] MEDS: SODIUM CHLORIDE 0.9% FLUSH 10 ML FLUSH IV FLUSH SCH ×2 (08:40→19:57)
[2017-03-18] MEDS: RIFAMPIN 150 MG CAP PO SCH ×2 (08:40→19:57)
[2017-03-18] MEDS: METHADONE HCL 10 MG/10 ML ORAL SOLUTION PO SCH ×2 (08:41→19:58)
[2017-03-18] MEDS: DOCUSATE SODIUM 50 MG/SENNA 8.6 MG TAB PO SCH ×2 (09:00→19:56)
--- NOTE | 2017-03-18 09:37 | HHI.PR ---
Subjective Remarks Less diarrhea today. Some abdominal pain intermittent. No fever or chills. Feels tired. Has LE edema. No nausea or vomiting able to eat. Headache on/off. Gets sob with exertion. Objective Vitals Vital Signs Date Time Temp Pulse Resp B/P (MAP) Pulse Ox O2 Delivery O2 Flow Rate FiO2 03/18/17 04:00 98.2 92 20 100/64 (76) 96 03/17/17 21:15 Room Air 03/17/17 20:00 102 03/17/17 20:00 97.4 102 20 118/65 (82) 98 03/17/17 16:00 97.7 104 20 116/76 (89) 98 03/17/17 12:00 99.4 105 20 122/74 (90) 98 I/O 03/17/17 03/17/17 03/17/17 03/18/17 03/18/17 03/18/17 07:00 15:00 23:00 07:00 15:00 23:00 Intake Total 1080 ml 780 ml Output Total 1000 ml Balance 1080 ml -220 ml Intake Oral 480 ml 780 ml IV Total 600 ml Output Urine Total 1000 ml # Voids 3 # Bowel Movements 1 Result Diagram: 03/14/17 0617 03/14/17 0617 Imaging Last Impressions Abdomen CT 03/16/17 0000 Signed Impressions: Service Date/Time: Thursday, March 16, 2017 20:26 - CONCLUSION: 1. Peripheral low attenuation lesions in the spleen most characteristic of multiple splenic infarcts. Some of these are new findings since 2016 comparison. 2. Minimal subsegmental airspace disease at the lung bases. 3. 3.4 cm right adnexal cyst. Intrauterine device present. 4. Small fat containing ventral hernias. Eliud Campoverde MD Chest X-Ray 03/13/17 0000 Signed Impressions: Service Date/Time: Monday, March 13, 2017 08:07 - CONCLUSION: Suspected mild edema/failure. Adalid Perry MD Neck CT 03/10/17 0000 Signed Impressions: Service Date/Time: Friday, March 10, 2017 11:13 - CONCLUSION: 1. Patient is intubated which limits this study. The epiglottis is otherwise normal. Secretions are present in the oropharynx and right sphenoid sinus. Alex Monahan MD Brain MRI 03/02/17 0000 Signed Impressions: Service Date/Time: Thursday, March 02, 2017 17:07 - CONCLUSION: 1. Small acute or subacute cortical infarct of the left parietal lobe. 2. Small, faint area of nonspecific flair signal abnormality in the left frontal lobe periventricular white matter, nonspecific. No associated mass effect or abnormal enhancement. 3 month followup MRI of the brain recommended. 3. Mild chronic white matter changes. Adalid Perry MD Head CT 02/26/17 0000 Signed Impressions: Service Date/Time: Sunday, February 26, 2017 19:47 - CONCLUSION: No evidence of acute infarct, hemorrhage, mass or edema. Ken Sanchez MD Objective Remarks GENERAL: Young female, appears in nad. SKIN: Warm and dry. CARDIOVASCULAR: Regular rate and rhythm with systolic murmur. RESPIRATORY: Decreased breath sound BL, no crackles or wheezing auscultated. No accessory muscle use. GASTROINTESTINAL: Abdomen soft, non-tender, nondistended. MUSCULOSKELETAL: No cyanosis. +3 LE edema. BACK: Nontender without obvious deformity. No CVA tenderness. 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 Status: Acute (4) SVT (supraventricular tachycardia) ICD Code: I47.1 - Supraventricular tachycardia Status: Resolved (5) Postextubation stridor ICD Code: J95.89 - Other postprocedural complications and disorders of respiratory system, not elsewhere classified Status: Resolved (6) Acute hypoxemic respiratory failure ICD Code: J96.01 - Acute respiratory failure with hypoxia Status: Resolved (7) CVA (cerebral vascular accident) ICD Code: I63.9 - Cerebral infarction, unspecified (8) Tricuspid regurgitation ICD Code: I07.1 - Rheumatic tricuspid insufficiency Status: Acute (9) Acute systolic heart failure ICD Code: I50.21 - Acute systolic (congestive) heart failure (10) Prosthetic valve endocarditis ICD Code: T82.6XXA - Infection and inflammatory reaction due to cardiac valve prosthesis, initial encounter Status: Acute (11) DUONG (acute kidney injury) ICD Code: N17.9 - Acute kidney failure, unspecified Status: Resolved (12) Protein calorie malnutrition ICD Code: E46 - Unspecified protein-calorie malnutrition (13) Microcytic anemia ICD Code: D50.9 - Iron deficiency anemia, unspecified (14) Hyperphosphatemia ICD Code: E83.39 - Other disorders of phosphorus metabolism (15) Hypernatremia ICD Code: E87.0 - Hyperosmolality and hypernatremia (16) IV drug abuse ICD Code: F19.10 - Other psychoactive substance abuse, uncomplicated Status: Acute (17) Headache ICD Code: R51 - Headache (18) Abdominal pain ICD Code: R10.9 - Unspecified abdominal pain Assessment and Plan (1) Severe sepsis Multiple splenic infarcts MSSA meningitis 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 Initially admitted to the intensive care unit, intubated and cared for by the intensivists. Sepsis found to be secondary to meningitis. Continue IV antibiotics as per infectious disease recommendations. The patient is currently on IV ampicillin, oxacillin, gentamicin and rifampin - continue. Unless more positive blood cx anticipate 6 week from 1st neg (03/01) followed by indefinite oral abx suppression tx. IV abx stop date tentatively. Gentamycin trough 2.0 (2) MSSA meningitis Status: Acute Plan: As above. 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 (4) SVT (supraventricular tachycardia) ICD Code: I47.1 - Supraventricular tachycardia Status: Resolved Plan: SVT now resolved. Continue metoprolol. Echocardiogram revealed an ejection fraction showed 25-30%. PAP 34 mmHg Initially treated with vasopressors which the patient is now off. The patient started on Lasix 20 minute grams by mouth daily. Continue. (5) Postextubation stridor ICD Code: J95.89 - Other postprocedural complications and disorders of respiratory system, not elsewhere classified Status: Resolved Plan: The patient initially extubated on 03/11/17. The patient was administered racemic epinephrine as needed for stridor or Continue albuterol/ipratropium inhaled treatments every 6 hours with every 2 hours as needed for albuterol therapy. Status post today treatment of dexamethasone IV every 8 hours. (6) Acute hypoxemic respiratory failure ICD Code: J96.01 - Acute respiratory failure with hypoxia Status: Resolved Plan: Continue supplemental oxygen to keep oxygen more than 92%. Status post intubation and extubation. Continue DuoNeb treatments. (7) CVA (cerebral vascular accident) ICD Code: I63.9 - Cerebral infarction, unspecified Plan: CT head negative, MRI small acute and subacute cortical infarct of the left parietal lobe. The patient was seen and evaluated by neurology. The patient is on a scheduled methadone 10 mg twice today. (8) Tricuspid regurgitation ICD Code: I07.1 - Rheumatic tricuspid insufficiency Status: Acute Plan: As seen on echo described above. Continue oral Lasix. (9) Acute systolic heart failure ICD Code: I50.21 - Acute systolic (congestive) heart failure Plan: Continue Lasix orally. continue Lasix 40 mg po daily. (10) Prosthetic valve endocarditis ICD Code: T82.6XXA - Infection and inflammatory reaction due to cardiac valve prosthesis, initial encounter Status: Acute Plan: The patient has history of IV drug abuse. Continue antibiotics as per ID recommendations. Tentative a stop date is 04/12 (11) DUONG (acute kidney injury) ICD Code: N17.9 - Acute kidney failure, unspecified Status: Resolved Plan: Now resolved. Continue to monitor BMP (12) Protein calorie malnutrition ICD Code: E46 - Unspecified protein-calorie malnutrition Plan: Secondary to long-standing IV drug abuse and endocarditis. (13) Microcytic anemia ICD Code: D50.9 - Iron deficiency anemia, unspecified Plan: Hemoglobin seems to be stable at 8.6. I will check iron studies and stool Hemoccult for blood. Patient had iron studies previously concordant with iron deficiency anemia. I will start the patient on oral iron sulfate. (14) Hyperphosphatemia ICD Code: E83.39 - Other disorders of phosphorus metabolism Plan: Now resolved. Continue to monitor levels. (15) Hypernatremia ICD Code: E87.0 - Hyperosmolality and hypernatremia Plan: Likely secondary to dehydration. Sodium now within normal range. Continue to monitor BMP. (16) IV drug abuse ICD Code: F19.10 - Other psychoactive substance abuse, uncomplicated Status: Acute Plan: Advised cessation. Currently on methadone. (17) Headache ICD Code: R51 - Headache Plan: Headache is bifrontal, patient is afebrile. Continue Acetaminophen 1000 mg po Q 6 hrs prn headache. (18) Abdominal pain ICD Code: R10.9 - Unspecified abdominal pain Plan: check CT abdomen and pelvis. Check stool for C diff PCR. (19) Diarrhea, improving Plan: C diff. is negative Continue probiotic. (20) Anasarca. Continue lasix po Will give extra dose of lasix 40 mg by IV. Monitor UPO and kidney function closely. Assessment and Plan GI prophylaxis: Continue famotidine. DVT prophylaxis: SCDs, ambulation. DC plan: needs inpatient treatment. DC when cleared by ID specialist. Problem Qualifiers (1) CVA (cerebral vascular accident): Qualified Codes: I63.9 - Cerebral infarction, unspecified (2) Protein calorie malnutrition: Qualified Codes: E44.0 - Moderate protein-calorie malnutrition Anna Henderson MD Mar 18, 2017 09:37
[2017-03-18 10:40] LABS: C. DIFF EPI 027 PRESUMPTIVE NEGATIVE (NEGATIVE)
[2017-03-18 10:44] LABS: AUTOMATED NEUTROPHIL # 5.1 TH/MM3 (1.8-7.7); BASOPHIL # 0.1 TH/MM3 (0-0.2); BASOPHIL % 0.9 % (0.0-2.0); EOSINOPHIL # 0.1 TH/MM3 (0-0.4); EOSINOPHIL % 1.5 % (0.0-4.0); HEMATOCRIT 27.4 % (35.0-46.0); HEMO FLAGS DIFF FINAL; LYMPH % 14.5 % (9.0-44.0); MEAN CELL VOLUME 76.1 FL (80.0-100.0); MEAN CORPUSCULAR HEMOGLOBIN 24.9 PG (27.0-34.0); MEAN CORPUSCULAR HGB CONC 32.7 % (32.0-36.0); MONO % 9.1 % (0.0-8.0); PLATELET COUNT 308 TH/MM3 (150-450); RED CELL DISTRIBUTION WIDTH 17.5 % (11.6-17.2)
[2017-03-18 11:18] LABS: BICARBONATE 26.6 MEQ/L (21.0-32.0)
[2017-03-18] MEDS: GENTAMICIN/SOD CHL 80 MG/100 ML IV SCH (12:03)
[2017-03-18] MEDS ORDERED: POTASSIUM CHLORIDE 10 MEQ CONTROLLED RELEASE TAB PO ONE (16:45)
[2017-03-18] MEDS ORDERED: FUROSEMIDE 40 MG/4 ML VIAL IV PUSH ONE (16:45)
[2017-03-18] MEDS ORDERED: POTASSIUM CHLORIDE 20 MEQ CONTROLLED RELEASE TAB PO ONE (18:45)
[2017-03-19] VITALS (7 sets, daily range): BP systolic 96–140; BP diastolic 60–81; PULSE 88–104; RESP 18–20; TEMP 98.1–99.4; O2SAT 96–100
[2017-03-19] MEDS: AMPICILLIN INJ 2,000 MG in SODIUM CHLORIDE 0.9% INJ 100 ML IV SCH ×6 (00:28→20:39)
[2017-03-19] MEDS: MORPHINE SULFATE 4 MG/ML INJ IV PRN ×6 (00:30→22:06)
[2017-03-19] MEDS: GENTAMICIN/SOD CHL 80 MG/100 ML IV SCH ×2 (01:16→12:47)
[2017-03-19] MEDS: HEPARIN SODIUM - SQ 10,000 UNITS/ML VIAL SQ SCH ×3 (02:00→17:03)
[2017-03-19] MEDS: OXACILLIN INJ 2 GM in SODIUM CHLORIDE 0.9% INJ 100 ML IV SCH ×6 (02:24→22:06)
[2017-03-19] MEDS: CHLORHEXIDINE GLUCONATE 2 % 1 PACK (2 CLOTHS) TOP SCH (03:52)
[2017-03-19] MEDS: METHADONE HCL 10 MG/10 ML ORAL SOLUTION PO SCH ×2 (07:56→20:40)
[2017-03-19] MEDS: RIFAMPIN 150 MG CAP PO SCH ×2 (07:56→20:39)
[2017-03-19] MEDS: FAMOTIDINE 20 MG TAB PO SCH ×2 (07:57→20:39)
[2017-03-19] MEDS: POTASSIUM CHLORIDE 20 MEQ CONTROLLED RELEASE TAB PO SCH (07:57)
[2017-03-19] MEDS: FUROSEMIDE 20 MG TAB PO SCH (07:57)
[2017-03-19] MEDS: ARTIFICIAL TEARS OPTH SOLN 15 ML BTL EACH EYE SCH ×3 (08:04→17:03)
[2017-03-19] MEDS: SODIUM CHLORIDE 0.9% FLUSH 10 ML FLUSH IV FLUSH SCH ×2 (08:04→20:39)
[2017-03-19] MEDS: DOCUSATE SODIUM 50 MG/SENNA 8.6 MG TAB PO SCH ×2 (08:04→20:39)
[2017-03-19 08:38] LABS: MAGNESIUM 1.9 MG/DL (1.5-2.5); POTASSIUM 4.1 MEQ/L (3.5-5.1)
[2017-03-19 08:51] LABS: AUTOMATED NEUTROPHIL # 4.6 TH/MM3 (1.8-7.7); BASOPHIL # 0.1 TH/MM3 (0-0.2); BASOPHIL % 0.8 % (0.0-2.0); EOSINOPHIL # 0.1 TH/MM3 (0-0.4); EOSINOPHIL % 1.6 % (0.0-4.0); HEMATOCRIT 35.5 % (35.0-46.0); HEMO FLAGS DIFF FINAL; LYMPH % 19.6 % (9.0-44.0); LYMPHOCYTE # 1.4 TH/MM3 (1.0-4.8); MEAN CELL VOLUME 76.4 FL (80.0-100.0); MEAN CORPUSCULAR HEMOGLOBIN 23.8 PG (27.0-34.0); MEAN CORPUSCULAR HGB CONC 31.2 % (32.0-36.0); MONO % 14.5 % (0.0-8.0); NEUT % 63.5 % (16.0-70.0); PLATELET COUNT 246 TH/MM3 (150-450); RED BLOOD COUNT 4.64 MIL/MM3 (4.00-5.30); RED CELL DISTRIBUTION WIDTH 17.8 % (11.6-17.2); WHITE BLOOD COUNT 7.3 TH/MM3 (4.0-11.0)
--- NOTE | 2017-03-19 12:40 | HHI.PR ---
Subjective Remarks In the chair. Says she feels tired. No n/v. Still with diarrhea 4 Bm since yesterday. LE edema imprpved some,. says extra lasix IV worked well. No sob, however she is sob with exertion. Will give additional lasix today IV Objective Vitals Vital Signs Date Time Temp Pulse Resp B/P (MAP) Pulse Ox O2 Delivery O2 Flow Rate FiO2 03/19/17 08:50 98 03/19/17 08:50 Room Air 03/19/17 04:00 98.2 88 18 100/60 (73) 97 03/19/17 04:00 Room Air 03/19/17 00:54 98.1 103 18 102/66 (78) 97 03/19/17 00:00 Room Air 03/18/17 20:44 98.4 114 18 108/55 (72) 100 03/18/17 20:00 107 03/18/17 20:00 Room Air 03/18/17 16:00 98.6 100 18 131/73 (92) 96 I/O 03/18/17 03/18/17 03/18/17 03/19/17 03/19/17 03/19/17 07:00 15:00 23:00 07:00 15:00 23:00 Intake Total 200 ml 700 ml 200 ml Output Total 1000 ml Balance 200 ml -300 ml 200 ml Intake Oral 500 ml IV Total 200 ml 200 ml 200 ml Output Urine Total 1000 ml # Voids 4 # Bowel Movements 1 0 Result Diagram: 03/19/17 0640 03/19/17 0640 Imaging Last Impressions Abdomen CT 03/16/17 0000 Signed Impressions: Service Date/Time: Thursday, March 16, 2017 20:26 - CONCLUSION: 1. Peripheral low attenuation lesions in the spleen most characteristic of multiple splenic infarcts. Some of these are new findings since 2016 comparison. 2. Minimal subsegmental airspace disease at the lung bases. 3. 3.4 cm right adnexal cyst. Intrauterine device present. 4. Small fat containing ventral hernias. Eliud Campoverde MD Chest X-Ray 03/13/17 0000 Signed Impressions: Service Date/Time: Monday, March 13, 2017 08:07 - CONCLUSION: Suspected mild edema/failure. Adalid Perry MD Neck CT 03/10/17 0000 Signed Impressions: Service Date/Time: Friday, March 10, 2017 11:13 - CONCLUSION: 1. Patient is intubated which limits this study. The epiglottis is otherwise normal. Secretions are present in the oropharynx and right sphenoid sinus. Alex Monahan MD Brain MRI 03/02/17 0000 Signed Impressions: Service Date/Time: Thursday, March 02, 2017 17:07 - CONCLUSION: 1. Small acute or subacute cortical infarct of the left parietal lobe. 2. Small, faint area of nonspecific flair signal abnormality in the left frontal lobe periventricular white matter, nonspecific. No associated mass effect or abnormal enhancement. 3 month followup MRI of the brain recommended. 3. Mild chronic white matter changes. Adalid Perry MD Head CT 02/26/17 0000 Signed Impressions: Service Date/Time: Sunday, February 26, 2017 19:47 - CONCLUSION: No evidence of acute infarct, hemorrhage, mass or edema. Ken Sanchez MD Objective Remarks GENERAL: Young female, appears in nad. SKIN: Warm and dry. CARDIOVASCULAR: Regular rate and rhythm with systolic murmur. RESPIRATORY: Decreased breath sound BL, no crackles or wheezing auscultated. No accessory muscle use. GASTROINTESTINAL: Abdomen soft, non-tender, nondistended. MUSCULOSKELETAL: No cyanosis. +3 LE edema. BACK: Nontender without obvious deformity. No CVA tenderness. 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 Status: Acute (4) SVT (supraventricular tachycardia) ICD Code: I47.1 - Supraventricular tachycardia Status: Resolved (5) Postextubation stridor ICD Code: J95.89 - Other postprocedural complications and disorders of respiratory system, not elsewhere classified Status: Resolved (6) Acute hypoxemic respiratory failure ICD Code: J96.01 - Acute respiratory failure with hypoxia Status: Resolved (7) CVA (cerebral vascular accident) ICD Code: I63.9 - Cerebral infarction, unspecified (8) Tricuspid regurgitation ICD Code: I07.1 - Rheumatic tricuspid insufficiency Status: Acute (9) Acute systolic heart failure ICD Code: I50.21 - Acute systolic (congestive) heart failure (10) Prosthetic valve endocarditis ICD Code: T82.6XXA - Infection and inflammatory reaction due to cardiac valve prosthesis, initial encounter Status: Acute (11) DUONG (acute kidney injury) ICD Code: N17.9 - Acute kidney failure, unspecified Status: Resolved (12) Protein calorie malnutrition ICD Code: E46 - Unspecified protein-calorie malnutrition (13) Microcytic anemia ICD Code: D50.9 - Iron deficiency anemia, unspecified (14) Hyperphosphatemia ICD Code: E83.39 - Other disorders of phosphorus metabolism (15) Hypernatremia ICD Code: E87.0 - Hyperosmolality and hypernatremia (16) IV drug abuse ICD Code: F19.10 - Other psychoactive substance abuse, uncomplicated Status: Acute (17) Headache ICD Code: R51 - Headache (18) Abdominal pain ICD Code: R10.9 - Unspecified abdominal pain Assessment and Plan (1) Severe sepsis Multiple splenic infarcts MSSA meningitis 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 Initially admitted to the intensive care unit, intubated and cared for by the intensivists. Sepsis found to be secondary to meningitis. Continue IV antibiotics as per infectious disease recommendations. The patient is currently on IV ampicillin, oxacillin, gentamicin and rifampin - continue. Unless more positive blood cx anticipate 6 week from 1st neg (03/01) followed by indefinite oral abx suppression tx. IV abx stop date tentatively. Gentamycin trough 2.0 (2) MSSA meningitis Status: Acute Plan: As above. 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 (4) SVT (supraventricular tachycardia) ICD Code: I47.1 - Supraventricular tachycardia Status: Resolved Plan: SVT now resolved. Continue metoprolol. Echocardiogram revealed an ejection fraction showed 25-30%. PAP 34 mmHg Initially treated with vasopressors which the patient is now off. The patient started on Lasix 20 minute grams by mouth daily. Continue. (5) Postextubation stridor ICD Code: J95.89 - Other postprocedural complications and disorders of respiratory system, not elsewhere classified Status: Resolved Plan: The patient initially extubated on 03/11/17. The patient was administered racemic epinephrine as needed for stridor or Continue albuterol/ipratropium inhaled treatments every 6 hours with every 2 hours as needed for albuterol therapy. Status post today treatment of dexamethasone IV every 8 hours. (6) Acute hypoxemic respiratory failure ICD Code: J96.01 - Acute respiratory failure with hypoxia Status: Resolved Plan: Continue supplemental oxygen to keep oxygen more than 92%. Status post intubation and extubation. Continue DuoNeb treatments. (7) CVA (cerebral vascular accident) ICD Code: I63.9 - Cerebral infarction, unspecified Plan: CT head negative, MRI small acute and subacute cortical infarct of the left parietal lobe. The patient was seen and evaluated by neurology. The patient is on a scheduled methadone 10 mg twice today. (8) Tricuspid regurgitation ICD Code: I07.1 - Rheumatic tricuspid insufficiency Status: Acute Plan: As seen on echo described above. Continue oral Lasix. (9) Acute systolic heart failure ICD Code: I50.21 - Acute systolic (congestive) heart failure Plan: Continue Lasix orally. continue Lasix 40 mg po daily. (10) Prosthetic valve endocarditis ICD Code: T82.6XXA - Infection and inflammatory reaction due to cardiac valve prosthesis, initial encounter Status: Acute Plan: The patient has history of IV drug abuse. Continue antibiotics as per ID recommendations. Tentative a stop date is 04/12 (11) DUONG (acute kidney injury) ICD Code: N17.9 - Acute kidney failure, unspecified Status: Resolved Plan: Now resolved. Continue to monitor BMP (12) Protein calorie malnutrition ICD Code: E46 - Unspecified protein-calorie malnutrition Plan: Secondary to long-standing IV drug abuse and endocarditis. (13) Microcytic anemia ICD Code: D50.9 - Iron deficiency anemia, unspecified Plan: Hemoglobin seems to be stable at 8.6. I will check iron studies and stool Hemoccult for blood. Patient had iron studies previously concordant with iron deficiency anemia. I will start the patient on oral iron sulfate. (14) Hyperphosphatemia ICD Code: E83.39 - Other disorders of phosphorus metabolism Plan: Now resolved. Continue to monitor levels. (15) Hypernatremia ICD Code: E87.0 - Hyperosmolality and hypernatremia Plan: Likely secondary to dehydration. Sodium now within normal range. Continue to monitor BMP. (16) IV drug abuse ICD Code: F19.10 - Other psychoactive substance abuse, uncomplicated Status: Acute Plan: Advised cessation. Currently on methadone. (17) Headache ICD Code: R51 - Headache Plan: Headache is bifrontal, patient is afebrile. Continue Acetaminophen 1000 mg po Q 6 hrs prn headache. (18) Abdominal pain ICD Code: R10.9 - Unspecified abdominal pain Plan: check CT abdomen and pelvis. Check stool for C diff PCR. (19) Diarrhea, improving Plan: C diff. is negative Continue probiotic. (20) Anasarca. Continue lasix po Will give extra dose of lasix 40 mg by IV. Monitor UPO and kidney function closely. Assessment and Plan GI prophylaxis: Continue famotidine. DVT prophylaxis: SCDs, ambulation. DC plan: needs inpatient treatment. DC when cleared by ID specialist. Problem Qualifiers (1) CVA (cerebral vascular accident): Qualified Codes: I63.9 - Cerebral infarction, unspecified (2) Protein calorie malnutrition: Qualified Codes: E44.0 - Moderate protein-calorie malnutrition Anna Henderson MD Mar 19, 2017 12:40
[2017-03-19] MEDS ORDERED: FUROSEMIDE 40 MG/4 ML VIAL IV PUSH ONE (16:00)
[2017-03-20] VITALS (9 sets, daily range): BP systolic 104–122; BP diastolic 72–82; PULSE 89–107; RESP 16–20; TEMP 98–98.9; O2SAT 97–100
[2017-03-20] MEDS: GENTAMICIN/SOD CHL 80 MG/100 ML IV SCH ×3 (00:45→22:57)
[2017-03-20] MEDS: AMPICILLIN INJ 2,000 MG in SODIUM CHLORIDE 0.9% INJ 100 ML IV SCH ×6 (01:27→21:29)
[2017-03-20] MEDS: HEPARIN SODIUM - SQ 10,000 UNITS/ML VIAL SQ SCH ×3 (02:00→18:00)
[2017-03-20] MEDS: MORPHINE SULFATE 4 MG/ML INJ IV PRN ×6 (02:30→22:57)
[2017-03-20] MEDS: OXACILLIN INJ 2 GM in SODIUM CHLORIDE 0.9% INJ 100 ML IV SCH ×6 (02:30→22:03)
[2017-03-20] MEDS: CHLORHEXIDINE GLUCONATE 2 % 1 PACK (2 CLOTHS) TOP SCH (03:00)
[2017-03-20] MEDS: DOCUSATE SODIUM 50 MG/SENNA 8.6 MG TAB PO SCH ×2 (09:00→21:00)
[2017-03-20] MEDS: ARTIFICIAL TEARS OPTH SOLN 15 ML BTL EACH EYE SCH ×3 (09:00→18:00)
[2017-03-20] MEDS: SODIUM CHLORIDE 0.9% FLUSH 10 ML FLUSH IV FLUSH SCH ×2 (09:00→21:29)
[2017-03-20] MEDS: METHADONE HCL 10 MG/10 ML ORAL SOLUTION PO SCH ×2 (09:17→21:30)
[2017-03-20] MEDS: POTASSIUM CHLORIDE 20 MEQ CONTROLLED RELEASE TAB PO SCH (09:18)
[2017-03-20] MEDS: FUROSEMIDE 20 MG TAB PO SCH (09:18)
[2017-03-20] MEDS: RIFAMPIN 150 MG CAP PO SCH ×2 (09:19→21:30)
[2017-03-20] MEDS: FAMOTIDINE 20 MG TAB PO SCH ×2 (09:19→21:30)
--- NOTE | 2017-03-20 10:36 | HHI.PR ---
Subjective Remarks In the chair. Says she still has LE edema. No fever or chills. No n/v. Patient still with diarrhea after she is eating. not much abdominal pain. C diff is neg. Objective Vitals Vital Signs Date Time Temp Pulse Resp B/P (MAP) Pulse Ox O2 Delivery O2 Flow Rate FiO2 03/20/17 08:00 98.2 95 18 113/74 (87) 98 03/20/17 04:00 Room Air 03/20/17 04:00 98.5 95 19 116/75 (89) 100 03/20/17 00:00 98.7 95 19 122/79 (93) 100 03/20/17 00:00 Room Air 03/19/17 20:00 101 03/19/17 20:00 Room Air 03/19/17 20:00 99.4 104 20 125/81 (96) 98 03/19/17 16:00 98.3 104 18 115/76 (89) 100 03/19/17 12:00 98.4 91 18 140/69 (92) 100 I/O 03/19/17 03/19/17 03/19/17 03/20/17 03/20/17 03/20/17 07:00 15:00 23:00 07:00 15:00 23:00 Intake Total 400 ml 900 ml Output Total 800 ml Balance 400 ml 100 ml Intake Oral 600 ml IV Total 400 ml 300 ml Output Urine Total 800 ml # Voids 4 # Bowel Movements 0 1 Result Diagram: 03/19/17 0640 03/19/17 0640 Imaging Last Impressions Abdomen CT 03/16/17 0000 Signed Impressions: Service Date/Time: Thursday, March 16, 2017 20:26 - CONCLUSION: 1. Peripheral low attenuation lesions in the spleen most characteristic of multiple splenic infarcts. Some of these are new findings since 2016 comparison. 2. Minimal subsegmental airspace disease at the lung bases. 3. 3.4 cm right adnexal cyst. Intrauterine device present. 4. Small fat containing ventral hernias. Eliud Campoverde MD Chest X-Ray 03/13/17 0000 Signed Impressions: Service Date/Time: Monday, March 13, 2017 08:07 - CONCLUSION: Suspected mild edema/failure. Adalid Perry MD Neck CT 03/10/17 0000 Signed Impressions: Service Date/Time: Friday, March 10, 2017 11:13 - CONCLUSION: 1. Patient is intubated which limits this study. The epiglottis is otherwise normal. Secretions are present in the oropharynx and right sphenoid sinus. Alex Monahan MD Brain MRI 03/02/17 0000 Signed Impressions: Service Date/Time: Thursday, March 02, 2017 17:07 - CONCLUSION: 1. Small acute or subacute cortical infarct of the left parietal lobe. 2. Small, faint area of nonspecific flair signal abnormality in the left frontal lobe periventricular white matter, nonspecific. No associated mass effect or abnormal enhancement. 3 month followup MRI of the brain recommended. 3. Mild chronic white matter changes. Adalid Perry MD Head CT 02/26/17 0000 Signed Impressions: Service Date/Time: Sunday, February 26, 2017 19:47 - CONCLUSION: No evidence of acute infarct, hemorrhage, mass or edema. Ken Sanchez MD Objective Remarks GENERAL: Young female, appears in nad. SKIN: Warm and dry. CARDIOVASCULAR: Regular rate and rhythm with systolic murmur. RESPIRATORY: Decreased breath sound BL, no crackles or wheezing auscultated. No accessory muscle use. GASTROINTESTINAL: Abdomen soft, non-tender, nondistended. MUSCULOSKELETAL: No cyanosis. +3 LE edema. BACK: Nontender without obvious deformity. No CVA tenderness. 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 Status: Acute (4) SVT (supraventricular tachycardia) ICD Code: I47.1 - Supraventricular tachycardia Status: Resolved (5) Postextubation stridor ICD Code: J95.89 - Other postprocedural complications and disorders of respiratory system, not elsewhere classified Status: Resolved (6) Acute hypoxemic respiratory failure ICD Code: J96.01 - Acute respiratory failure with hypoxia Status: Resolved (7) CVA (cerebral vascular accident) ICD Code: I63.9 - Cerebral infarction, unspecified (8) Tricuspid regurgitation ICD Code: I07.1 - Rheumatic tricuspid insufficiency Status: Acute (9) Acute systolic heart failure ICD Code: I50.21 - Acute systolic (congestive) heart failure (10) Prosthetic valve endocarditis ICD Code: T82.6XXA - Infection and inflammatory reaction due to cardiac valve prosthesis, initial encounter Status: Acute (11) DUONG (acute kidney injury) ICD Code: N17.9 - Acute kidney failure, unspecified Status: Resolved (12) Protein calorie malnutrition ICD Code: E46 - Unspecified protein-calorie malnutrition (13) Microcytic anemia ICD Code: D50.9 - Iron deficiency anemia, unspecified (14) Hyperphosphatemia ICD Code: E83.39 - Other disorders of phosphorus metabolism (15) Hypernatremia ICD Code: E87.0 - Hyperosmolality and hypernatremia (16) IV drug abuse ICD Code: F19.10 - Other psychoactive substance abuse, uncomplicated Status: Acute (17) Headache ICD Code: R51 - Headache (18) Abdominal pain ICD Code: R10.9 - Unspecified abdominal pain Assessment and Plan (1) Severe sepsis Multiple splenic infarcts MSSA meningitis 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 Initially admitted to the intensive care unit, intubated and cared for by the intensivists. Sepsis found to be secondary to meningitis. Continue IV antibiotics as per infectious disease recommendations. The patient is currently on IV ampicillin, oxacillin, gentamicin and rifampin - continue. Unless more positive blood cx anticipate 6 week from 1st neg (03/01) followed by indefinite oral abx suppression tx. IV abx stop date tentatively. Gentamycin trough 2.0 (2) MSSA meningitis Status: Acute Plan: As above. 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 (4) SVT (supraventricular tachycardia) ICD Code: I47.1 - Supraventricular tachycardia Status: Resolved Plan: SVT now resolved. Continue metoprolol. Echocardiogram revealed an ejection fraction showed 25-30%. PAP 34 mmHg Initially treated with vasopressors which the patient is now off. The patient started on Lasix 20 minute grams by mouth daily. Continue. (5) Postextubation stridor ICD Code: J95.89 - Other postprocedural complications and disorders of respiratory system, not elsewhere classified Status: Resolved Plan: The patient initially extubated on 03/11/17. The patient was administered racemic epinephrine as needed for stridor or Continue albuterol/ipratropium inhaled treatments every 6 hours with every 2 hours as needed for albuterol therapy. Status post today treatment of dexamethasone IV every 8 hours. (6) Acute hypoxemic respiratory failure ICD Code: J96.01 - Acute respiratory failure with hypoxia Status: Resolved Plan: Continue supplemental oxygen to keep oxygen more than 92%. Status post intubation and extubation. Continue DuoNeb treatments. (7) CVA (cerebral vascular accident) ICD Code: I63.9 - Cerebral infarction, unspecified Plan: CT head negative, MRI small acute and subacute cortical infarct of the left parietal lobe. The patient was seen and evaluated by neurology. The patient is on a scheduled methadone 10 mg twice today. (8) Tricuspid regurgitation ICD Code: I07.1 - Rheumatic tricuspid insufficiency Status: Acute Plan: As seen on echo described above. Continue oral Lasix. (9) Acute systolic heart failure ICD Code: I50.21 - Acute systolic (congestive) heart failure Plan: Continue Lasix orally. continue Lasix 40 mg po daily. (10) Prosthetic valve endocarditis ICD Code: T82.6XXA - Infection and inflammatory reaction due to cardiac valve prosthesis, initial encounter Status: Acute Plan: The patient has history of IV drug abuse. Continue antibiotics as per ID recommendations. Tentative a stop date is 04/12 (11) DUONG (acute kidney injury) ICD Code: N17.9 - Acute kidney failure, unspecified Status: Resolved Plan: Now resolved. Continue to monitor BMP (12) Protein calorie malnutrition ICD Code: E46 - Unspecified protein-calorie malnutrition Plan: Secondary to long-standing IV drug abuse and endocarditis. (13) Microcytic anemia ICD Code: D50.9 - Iron deficiency anemia, unspecified Plan: Hemoglobin seems to be stable at 8.6. I will check iron studies and stool Hemoccult for blood. Patient had iron studies previously concordant with iron deficiency anemia. I will start the patient on oral iron sulfate. (14) Hyperphosphatemia ICD Code: E83.39 - Other disorders of phosphorus metabolism Plan: Now resolved. Continue to monitor levels. (15) Hypernatremia ICD Code: E87.0 - Hyperosmolality and hypernatremia Plan: Likely secondary to dehydration. Sodium now within normal range. Continue to monitor BMP. (16) IV drug abuse ICD Code: F19.10 - Other psychoactive substance abuse, uncomplicated Status: Acute Plan: Advised cessation. Currently on methadone. (17) Headache ICD Code: R51 - Headache Plan: Headache is bifrontal, patient is afebrile. Continue Acetaminophen 1000 mg po Q 6 hrs prn headache. (18) Abdominal pain ICD Code: R10.9 - Unspecified abdominal pain Plan: check CT abdomen and pelvis. Check stool for C diff PCR. (19) Diarrhea, improving Plan: C diff. is negative Continue probiotic. Add Imodium (20) Anasarca. Continue lasix po. Will give extra dose of lasix 40 mg by IV. Monitor UPO and kidney function closely. Assessment and Plan GI prophylaxis: Continue famotidine. DVT prophylaxis: SCDs, ambulation. DC plan: needs inpatient treatment. DC when cleared by ID specialist. Problem Qualifiers (1) CVA (cerebral vascular accident): Qualified Codes: I63.9 - Cerebral infarction, unspecified (2) Protein calorie malnutrition: Qualified Codes: E44.0 - Moderate protein-calorie malnutrition Anna Henderson MD Mar 20, 2017 10:36
[2017-03-20] MEDS ORDERED: FUROSEMIDE 40 MG/4 ML VIAL IV PUSH ONE (10:45)
[2017-03-20] MEDS ORDERED: LOPERAMIDE HCL 2 MG CAP PO PRN (10:45)
[2017-03-21] VITALS (8 sets, daily range): BP systolic 110–128; BP diastolic 71–86; PULSE 79–102; RESP 16–20; TEMP 98–98.7; O2SAT 96–99
[2017-03-21] MEDS: AMPICILLIN INJ 2,000 MG in SODIUM CHLORIDE 0.9% INJ 100 ML IV SCH ×6 (00:19→21:25)
[2017-03-21] MEDS: OXACILLIN INJ 2 GM in SODIUM CHLORIDE 0.9% INJ 100 ML IV SCH ×6 (00:53→21:58)
[2017-03-21] MEDS: HEPARIN SODIUM - SQ 10,000 UNITS/ML VIAL SQ SCH ×3 (00:53→17:55)
[2017-03-21] MEDS: MORPHINE SULFATE 4 MG/ML INJ IV PRN ×5 (02:51→22:44)
[2017-03-21] MEDS: CHLORHEXIDINE GLUCONATE 2 % 1 PACK (2 CLOTHS) TOP SCH (03:55)
[2017-03-21] MEDS: ARTIFICIAL TEARS OPTH SOLN 15 ML BTL EACH EYE SCH ×3 (09:00→17:47)
[2017-03-21] MEDS: RIFAMPIN 150 MG CAP PO SCH ×2 (09:00→21:26)
[2017-03-21] MEDS: DOCUSATE SODIUM 50 MG/SENNA 8.6 MG TAB PO SCH ×2 (09:00→21:00)
[2017-03-21] MEDS: SODIUM CHLORIDE 0.9% FLUSH 10 ML FLUSH IV FLUSH SCH ×2 (09:00→21:26)
[2017-03-21] MEDS: METHADONE HCL 10 MG/10 ML ORAL SOLUTION PO SCH ×2 (09:15→21:26)
[2017-03-21] MEDS: FUROSEMIDE 20 MG TAB PO SCH (09:16)
[2017-03-21] MEDS: FAMOTIDINE 20 MG TAB PO SCH ×2 (09:16→21:26)
[2017-03-21] MEDS: POTASSIUM CHLORIDE 20 MEQ CONTROLLED RELEASE TAB PO SCH (09:17)
[2017-03-21 10:25] LABS: AUTOMATED NEUTROPHIL # 6.6 TH/MM3 (1.8-7.7); BASOPHIL # 0.1 TH/MM3 (0-0.2); BASOPHIL % 0.9 % (0.0-2.0); EOSINOPHIL # 0.1 TH/MM3 (0-0.4); EOSINOPHIL % 1.6 % (0.0-4.0); HEMATOCRIT 29.3 % (35.0-46.0); HEMO FLAGS DIFF FINAL; LYMPH % 13.1 % (9.0-44.0); LYMPHOCYTE # 1.2 TH/MM3 (1.0-4.8); MEAN CELL VOLUME 74.9 FL (80.0-100.0); MEAN CORPUSCULAR HEMOGLOBIN 24.1 PG (27.0-34.0); MEAN CORPUSCULAR HGB CONC 32.2 % (32.0-36.0); MONO % 10.2 % (0.0-8.0); NEUT % 74.2 % (16.0-70.0); PLATELET COUNT 313 TH/MM3 (150-450); RED BLOOD COUNT 3.91 MIL/MM3 (4.00-5.30); RED CELL DISTRIBUTION WIDTH 17.6 % (11.6-17.2)
[2017-03-21 10:28] LABS: BICARBONATE 25.1 MEQ/L (21.0-32.0); MAGNESIUM 1.9 MG/DL (1.5-2.5); POTASSIUM 3.4 MEQ/L (3.5-5.1)
[2017-03-21] MEDS: GENTAMICIN/SOD CHL 80 MG/100 ML IV SCH ×2 (13:01→22:44)
--- NOTE | 2017-03-21 13:49 | HHI.PR ---
Subjective Remarks She is in the chair appears in not acute distress at this time. Says lower extremity edema is improved but not significantly. Says late extra Lasix helps. No fever or chills. No chest pain or shortness of breath. Says has normal headache Objective Vitals Vital Signs Date Time Temp Pulse Resp B/P (MAP) Pulse Ox O2 Delivery O2 Flow Rate FiO2 03/21/17 12:00 98.6 88 18 121/78 (92) 98 03/21/17 08:00 98.0 94 18 120/81 (94) 99 03/21/17 05:40 98.0 89 16 128/75 (92) 98 03/20/17 23:57 98.9 89 16 114/74 (87) 97 03/20/17 21:48 98.3 97 16 116/82 (93) 100 03/20/17 20:00 107 03/20/17 20:00 Room Air 03/20/17 16:00 98.7 92 20 111/73 (86) 99 I/O 03/20/17 03/20/17 03/20/17 03/21/17 03/21/17 03/21/17 07:00 15:00 23:00 07:00 15:00 23:00 Intake Total 480 ml 720 ml Output Total 700 ml 2400 ml Balance -220 ml -1680 ml Intake Oral 480 ml 720 ml Output Urine Total 700 ml 2400 ml # Voids 3 # Bowel Movements 2 2 1 Result Diagram: 03/21/17 0948 03/21/17 0948 Imaging Last Impressions Abdomen CT 03/16/17 0000 Signed Impressions: Service Date/Time: Thursday, March 16, 2017 20:26 - CONCLUSION: 1. Peripheral low attenuation lesions in the spleen most characteristic of multiple splenic infarcts. Some of these are new findings since 2016 comparison. 2. Minimal subsegmental airspace disease at the lung bases. 3. 3.4 cm right adnexal cyst. Intrauterine device present. 4. Small fat containing ventral hernias. Eliud Campoverde MD Chest X-Ray 03/13/17 0000 Signed Impressions: Service Date/Time: Monday, March 13, 2017 08:07 - CONCLUSION: Suspected mild edema/failure. Adalid Perry MD Neck CT 03/10/17 0000 Signed Impressions: Service Date/Time: Friday, March 10, 2017 11:13 - CONCLUSION: 1. Patient is intubated which limits this study. The epiglottis is otherwise normal. Secretions are present in the oropharynx and right sphenoid sinus. Alex Monahan MD Brain MRI 03/02/17 0000 Signed Impressions: Service Date/Time: Thursday, March 02, 2017 17:07 - CONCLUSION: 1. Small acute or subacute cortical infarct of the left parietal lobe. 2. Small, faint area of nonspecific flair signal abnormality in the left frontal lobe periventricular white matter, nonspecific. No associated mass effect or abnormal enhancement. 3 month followup MRI of the brain recommended. 3. Mild chronic white matter changes. Adalid Peryr MD Head CT 02/26/17 0000 Signed Impressions: Service Date/Time: Sunday, February 26, 2017 19:47 - CONCLUSION: No evidence of acute infarct, hemorrhage, mass or edema. Ken Sanchez MD Objective Remarks GENERAL: Young female, appears in nad. SKIN: Warm and dry. CARDIOVASCULAR: Regular rate and rhythm with systolic murmur. RESPIRATORY: Decreased breath sound BL, no crackles or wheezing auscultated. No accessory muscle use. GASTROINTESTINAL: Abdomen soft, non-tender, nondistended. MUSCULOSKELETAL: No cyanosis. +3 LE edema. BACK: Nontender without obvious deformity. No CVA tenderness. 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 Status: Acute (4) SVT (supraventricular tachycardia) ICD Code: I47.1 - Supraventricular tachycardia Status: Resolved (5) Postextubation stridor ICD Code: J95.89 - Other postprocedural complications and disorders of respiratory system, not elsewhere classified Status: Resolved (6) Acute hypoxemic respiratory failure ICD Code: J96.01 - Acute respiratory failure with hypoxia Status: Resolved (7) CVA (cerebral vascular accident) ICD Code: I63.9 - Cerebral infarction, unspecified (8) Tricuspid regurgitation ICD Code: I07.1 - Rheumatic tricuspid insufficiency Status: Acute (9) Acute systolic heart failure ICD Code: I50.21 - Acute systolic (congestive) heart failure (10) Prosthetic valve endocarditis ICD Code: T82.6XXA - Infection and inflammatory reaction due to cardiac valve prosthesis, initial encounter Status: Acute (11) DUONG (acute kidney injury) ICD Code: N17.9 - Acute kidney failure, unspecified Status: Resolved (12) Protein calorie malnutrition ICD Code: E46 - Unspecified protein-calorie malnutrition (13) Microcytic anemia ICD Code: D50.9 - Iron deficiency anemia, unspecified (14) Hyperphosphatemia ICD Code: E83.39 - Other disorders of phosphorus metabolism (15) Hypernatremia ICD Code: E87.0 - Hyperosmolality and hypernatremia (16) IV drug abuse ICD Code: F19.10 - Other psychoactive substance abuse, uncomplicated Status: Acute (17) Headache ICD Code: R51 - Headache (18) Abdominal pain ICD Code: R10.9 - Unspecified abdominal pain Assessment and Plan (1) Severe sepsis Multiple splenic infarcts MSSA meningitis 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 Initially admitted to the intensive care unit, intubated and cared for by the intensivists. Sepsis found to be secondary to meningitis. Continue IV antibiotics as per infectious disease recommendations. The patient is currently on IV ampicillin, oxacillin, gentamicin and rifampin - continue. Unless more positive blood cx anticipate 6 week from 1st neg (03/01) followed by indefinite oral abx suppression tx. IV abx stop date tentatively. Gentamycin trough 2.0 (2) MSSA meningitis Status: Acute Plan: As above. 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 (4) SVT (supraventricular tachycardia) ICD Code: I47.1 - Supraventricular tachycardia Status: Resolved Plan: SVT now resolved. Continue metoprolol. Echocardiogram revealed an ejection fraction showed 25-30%. PAP 34 mmHg Initially treated with vasopressors which the patient is now off. The patient started on Lasix 20 minute grams by mouth daily. Continue. (5) Postextubation stridor ICD Code: J95.89 - Other postprocedural complications and disorders of respiratory system, not elsewhere classified Status: Resolved Plan: The patient initially extubated on 03/11/17. The patient was administered racemic epinephrine as needed for stridor or Continue albuterol/ipratropium inhaled treatments every 6 hours with every 2 hours as needed for albuterol therapy. Status post today treatment of dexamethasone IV every 8 hours. (6) Acute hypoxemic respiratory failure ICD Code: J96.01 - Acute respiratory failure with hypoxia Status: Resolved Plan: Continue supplemental oxygen to keep oxygen more than 92%. Status post intubation and extubation. Continue DuoNeb treatments. (7) CVA (cerebral vascular accident) ICD Code: I63.9 - Cerebral infarction, unspecified Plan: CT head negative, MRI small acute and subacute cortical infarct of the left parietal lobe. The patient was seen and evaluated by neurology. The patient is on a scheduled methadone 10 mg twice today. (8) Tricuspid regurgitation ICD Code: I07.1 - Rheumatic tricuspid insufficiency Status: Acute Plan: As seen on echo described above. Continue oral Lasix. (9) Acute systolic heart failure ICD Code: I50.21 - Acute systolic (congestive) heart failure Plan: Continue Lasix orally. continue Lasix 40 mg po daily. (10) Prosthetic valve endocarditis ICD Code: T82.6XXA - Infection and inflammatory reaction due to cardiac valve prosthesis, initial encounter Status: Acute Plan: The patient has history of IV drug abuse. Continue antibiotics as per ID recommendations. Tentative a stop date is 04/12 (11) DUONG (acute kidney injury) ICD Code: N17.9 - Acute kidney failure, unspecified Status: Resolved Plan: Now resolved. Continue to monitor BMP (12) Protein calorie malnutrition ICD Code: E46 - Unspecified protein-calorie malnutrition Plan: Secondary to long-standing IV drug abuse and endocarditis. (13) Microcytic anemia ICD Code: D50.9 - Iron deficiency anemia, unspecified Plan: Hemoglobin seems to be stable at 8.6. I will check iron studies and stool Hemoccult for blood. Patient had iron studies previously concordant with iron deficiency anemia. I will start the patient on oral iron sulfate. (14) Hyperphosphatemia ICD Code: E83.39 - Other disorders of phosphorus metabolism Plan: Now resolved. Continue to monitor levels. (15) Hypernatremia ICD Code: E87.0 - Hyperosmolality and hypernatremia Plan: Likely secondary to dehydration. Sodium now within normal range. Continue to monitor BMP. (16) IV drug abuse ICD Code: F19.10 - Other psychoactive substance abuse, uncomplicated Status: Acute Plan: Advised cessation. Currently on methadone. (17) Headache ICD Code: R51 - Headache Plan: Headache is bifrontal, patient is afebrile. Continue Acetaminophen 1000 mg po Q 6 hrs prn headache. (18) Abdominal pain ICD Code: R10.9 - Unspecified abdominal pain Plan: check CT abdomen and pelvis. Check stool for C diff PCR. (19) Diarrhea, improving Plan: C diff. is negative Continue probiotic. Add Imodium (20) Anasarca. Continue lasix po. Will give extra dose of lasix 40 mg by IV. Monitor UPO and kidney function closely. Assessment and Plan GI prophylaxis: Continue famotidine. DVT prophylaxis: SCDs, ambulation. DC plan: needs inpatient treatment. DC when cleared by ID specialist. Problem Qualifiers (1) CVA (cerebral vascular accident): Qualified Codes: I63.9 - Cerebral infarction, unspecified (2) Protein calorie malnutrition: Qualified Codes: E44.0 - Moderate protein-calorie malnutrition Anna Henderson MD Mar 21, 2017 13:49
[2017-03-21] MEDS ORDERED: FUROSEMIDE 40 MG/4 ML VIAL IV PUSH ONE (17:30)
[2017-03-21] MEDS ORDERED: POTASSIUM CHLORIDE 10 MEQ CONTROLLED RELEASE TAB PO ONE (17:30)
[2017-03-22] MEDS: AMPICILLIN INJ 2,000 MG in SODIUM CHLORIDE 0.9% INJ 100 ML IV SCH ×6 (01:01→20:50)
[2017-03-22] MEDS: OXACILLIN INJ 2 GM in SODIUM CHLORIDE 0.9% INJ 100 ML IV SCH ×6 (01:04→21:04)
[2017-03-22] MEDS: HEPARIN SODIUM - SQ 10,000 UNITS/ML VIAL SQ SCH ×3 (01:07→17:07)
[2017-03-22] MEDS: MORPHINE SULFATE 4 MG/ML INJ IV PRN ×6 (02:05→20:51)
[2017-03-22] MEDS: CHLORHEXIDINE GLUCONATE 2 % 1 PACK (2 CLOTHS) TOP SCH (04:00)
[2017-03-22 05:11] VITALS: BP 120/70; PULSE 91; RESP 16; TEMP 98.4; O2SAT 100
[2017-03-22 08:00] VITALS: BP 105/78; PULSE 89; RESP 18; TEMP 98.3; O2SAT 97
[2017-03-22] MEDS: SODIUM CHLORIDE 0.9% FLUSH 10 ML FLUSH IV FLUSH SCH ×2 (09:00→20:52)
[2017-03-22] MEDS: ARTIFICIAL TEARS OPTH SOLN 15 ML BTL EACH EYE SCH ×3 (09:00→17:07)
[2017-03-22] MEDS: FAMOTIDINE 20 MG TAB PO SCH ×2 (09:04→20:57)
[2017-03-22] MEDS: POTASSIUM CHLORIDE 20 MEQ CONTROLLED RELEASE TAB PO SCH (09:05)
[2017-03-22] MEDS: DOCUSATE SODIUM 50 MG/SENNA 8.6 MG TAB PO SCH ×2 (09:05→20:57)
[2017-03-22] MEDS: RIFAMPIN 150 MG CAP PO SCH ×2 (09:05→20:57)
[2017-03-22] MEDS: FUROSEMIDE 20 MG TAB PO SCH (09:06)
[2017-03-22] MEDS: METHADONE HCL 10 MG/10 ML ORAL SOLUTION PO SCH ×2 (09:09→21:05)
--- NOTE | 2017-03-22 09:29 | HHI.PR ---
Subjective Remarks Says LE edema is improving. No n/v/d/c. Has some intermittent chest pain. SOB at baseline. No fever or chills. Objective Vitals Vital Signs Date Time Temp Pulse Resp B/P (MAP) Pulse Ox O2 Delivery O2 Flow Rate FiO2 03/22/17 08:00 98.3 89 18 105/78 (87) 97 03/22/17 05:11 98.4 91 16 120/70 (87) 100 03/21/17 23:48 98.7 79 16 115/74 (88) 96 03/21/17 22:00 98.7 99 16 120/71 (87) 96 03/21/17 20:00 98 03/21/17 20:00 Room Air 03/21/17 16:00 98.4 97 20 110/86 (94) 97 03/21/17 12:00 98.6 88 18 121/78 (92) 98 03/21/17 10:00 102 I/O 03/21/17 03/21/17 03/21/17 03/22/17 03/22/17 03/22/17 06:59 14:59 22:59 06:59 14:59 22:59 Intake Total 720 ml 200 ml 400 ml 1940 ml Output Total 2400 ml 2050 ml Balance -1680 ml 200 ml 400 ml -110 ml Intake Oral 720 ml 1440 ml IV Total 200 ml 400 ml 500 ml Output Urine Total 2400 ml 2050 ml # Bowel Movements 1 0 Result Diagram: 03/21/17 0948 03/21/17 0948 Imaging Last Impressions Abdomen CT 03/16/17 0000 Signed Impressions: Service Date/Time: Thursday, March 16, 2017 20:26 - CONCLUSION: 1. Peripheral low attenuation lesions in the spleen most characteristic of multiple splenic infarcts. Some of these are new findings since 2016 comparison. 2. Minimal subsegmental airspace disease at the lung bases. 3. 3.4 cm right adnexal cyst. Intrauterine device present. 4. Small fat containing ventral hernias. Eliud Campoverde MD Chest X-Ray 03/13/17 0000 Signed Impressions: Service Date/Time: Monday, March 13, 2017 08:07 - CONCLUSION: Suspected mild edema/failure. Adalid Perry MD Neck CT 03/10/17 0000 Signed Impressions: Service Date/Time: Friday, March 10, 2017 11:13 - CONCLUSION: 1. Patient is intubated which limits this study. The epiglottis is otherwise normal. Secretions are present in the oropharynx and right sphenoid sinus. Alex Monahan MD Brain MRI 03/02/17 0000 Signed Impressions: Service Date/Time: Thursday, March 02, 2017 17:07 - CONCLUSION: 1. Small acute or subacute cortical infarct of the left parietal lobe. 2. Small, faint area of nonspecific flair signal abnormality in the left frontal lobe periventricular white matter, nonspecific. No associated mass effect or abnormal enhancement. 3 month followup MRI of the brain recommended. 3. Mild chronic white matter changes. Adalid Perry MD Head CT 02/26/17 0000 Signed Impressions: Service Date/Time: Sunday, February 26, 2017 19:47 - CONCLUSION: No evidence of acute infarct, hemorrhage, mass or edema. Ken Sanchez MD Objective Remarks GENERAL: Young female, appears in nad. SKIN: Warm and dry. CARDIOVASCULAR: Regular rate and rhythm with systolic murmur. RESPIRATORY: Decreased breath sound BL, no crackles or wheezing auscultated. No accessory muscle use. GASTROINTESTINAL: Abdomen soft, non-tender, nondistended. MUSCULOSKELETAL: No cyanosis. +3 LE edema. BACK: Nontender without obvious deformity. No CVA tenderness. 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 Status: Acute (4) SVT (supraventricular tachycardia) ICD Code: I47.1 - Supraventricular tachycardia Status: Resolved (5) Postextubation stridor ICD Code: J95.89 - Other postprocedural complications and disorders of respiratory system, not elsewhere classified Status: Resolved (6) Acute hypoxemic respiratory failure ICD Code: J96.01 - Acute respiratory failure with hypoxia Status: Resolved (7) CVA (cerebral vascular accident) ICD Code: I63.9 - Cerebral infarction, unspecified (8) Tricuspid regurgitation ICD Code: I07.1 - Rheumatic tricuspid insufficiency Status: Acute (9) Acute systolic heart failure ICD Code: I50.21 - Acute systolic (congestive) heart failure (10) Prosthetic valve endocarditis ICD Code: T82.6XXA - Infection and inflammatory reaction due to cardiac valve prosthesis, initial encounter Status: Acute (11) DUONG (acute kidney injury) ICD Code: N17.9 - Acute kidney failure, unspecified Status: Resolved (12) Protein calorie malnutrition ICD Code: E46 - Unspecified protein-calorie malnutrition (13) Microcytic anemia ICD Code: D50.9 - Iron deficiency anemia, unspecified (14) Hyperphosphatemia ICD Code: E83.39 - Other disorders of phosphorus metabolism (15) Hypernatremia ICD Code: E87.0 - Hyperosmolality and hypernatremia (16) IV drug abuse ICD Code: F19.10 - Other psychoactive substance abuse, uncomplicated Status: Acute (17) Headache ICD Code: R51 - Headache (18) Abdominal pain ICD Code: R10.9 - Unspecified abdominal pain Assessment and Plan (1) Severe sepsis Multiple splenic infarcts MSSA meningitis 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 Initially admitted to the intensive care unit, intubated and cared for by the intensivists. Sepsis found to be secondary to meningitis. Continue IV antibiotics as per infectious disease recommendations. The patient is currently on IV ampicillin, oxacillin, gentamicin and rifampin - continue. Unless more positive blood cx anticipate 6 week from 1st neg (03/01) followed by indefinite oral abx suppression tx. IV abx stop date tentatively. Gentamycin trough 2.0 (2) MSSA meningitis Status: Acute Plan: As above. 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 (4) SVT (supraventricular tachycardia) ICD Code: I47.1 - Supraventricular tachycardia Status: Resolved Plan: SVT now resolved. Continue metoprolol. Echocardiogram revealed an ejection fraction showed 25-30%. PAP 34 mmHg Initially treated with vasopressors which the patient is now off. The patient started on Lasix 20 minute grams by mouth daily. Continue. (5) Postextubation stridor ICD Code: J95.89 - Other postprocedural complications and disorders of respiratory system, not elsewhere classified Status: Resolved Plan: The patient initially extubated on 03/11/17. The patient was administered racemic epinephrine as needed for stridor or Continue albuterol/ipratropium inhaled treatments every 6 hours with every 2 hours as needed for albuterol therapy. Status post today treatment of dexamethasone IV every 8 hours. (6) Acute hypoxemic respiratory failure ICD Code: J96.01 - Acute respiratory failure with hypoxia Status: Resolved Plan: Continue supplemental oxygen to keep oxygen more than 92%. Status post intubation and extubation. Continue DuoNeb treatments. (7) CVA (cerebral vascular accident) ICD Code: I63.9 - Cerebral infarction, unspecified Plan: CT head negative, MRI small acute and subacute cortical infarct of the left parietal lobe. The patient was seen and evaluated by neurology. The patient is on a scheduled methadone 10 mg twice today. (8) Tricuspid regurgitation ICD Code: I07.1 - Rheumatic tricuspid insufficiency Status: Acute Plan: As seen on echo described above. Continue oral Lasix. (9) Acute systolic heart failure ICD Code: I50.21 - Acute systolic (congestive) heart failure Plan: Continue Lasix orally. continue Lasix 40 mg po daily. (10) Prosthetic valve endocarditis ICD Code: T82.6XXA - Infection and inflammatory reaction due to cardiac valve prosthesis, initial encounter Status: Acute Plan: The patient has history of IV drug abuse. Continue antibiotics as per ID recommendations. Tentative a stop date is 04/12 (11) DUONG (acute kidney injury) ICD Code: N17.9 - Acute kidney failure, unspecified Status: Resolved Plan: Now resolved. Continue to monitor BMP (12) Protein calorie malnutrition ICD Code: E46 - Unspecified protein-calorie malnutrition Plan: Secondary to long-standing IV drug abuse and endocarditis. (13) Microcytic anemia ICD Code: D50.9 - Iron deficiency anemia, unspecified Plan: Hemoglobin seems to be stable at 8.6. I will check iron studies and stool Hemoccult for blood. Patient had iron studies previously concordant with iron deficiency anemia. I will start the patient on oral iron sulfate. (14) Hyperphosphatemia ICD Code: E83.39 - Other disorders of phosphorus metabolism Plan: Now resolved. Continue to monitor levels. (15) Hypernatremia ICD Code: E87.0 - Hyperosmolality and hypernatremia Plan: Likely secondary to dehydration. Sodium now within normal range. Continue to monitor BMP. (16) IV drug abuse ICD Code: F19.10 - Other psychoactive substance abuse, uncomplicated Status: Acute Plan: Advised cessation. Currently on methadone. (17) Headache ICD Code: R51 - Headache Plan: Headache is bifrontal, patient is afebrile. Continue Acetaminophen 1000 mg po Q 6 hrs prn headache. (18) Abdominal pain ICD Code: R10.9 - Unspecified abdominal pain Plan: check CT abdomen and pelvis. Check stool for C diff PCR. (19) Diarrhea, improving Plan: C diff. is negative Continue probiotic. Add Imodium (20) Anasarca. Continue lasix po. Monitor UPO and kidney function closely. Assessment and Plan GI prophylaxis: Continue famotidine. DVT prophylaxis: SCDs, ambulation. DC plan: needs inpatient treatment. DC when cleared by ID specialist. Problem Qualifiers (1) CVA (cerebral vascular accident): Qualified Codes: I63.9 - Cerebral infarction, unspecified (2) Protein calorie malnutrition: Qualified Codes: E44.0 - Moderate protein-calorie malnutrition Anna Henderson MD Mar 22, 2017 09:29
[2017-03-22] MEDS: GENTAMICIN/SOD CHL 80 MG/100 ML IV SCH (10:57)
[2017-03-22 12:00] VITALS: BP 116/75; PULSE 88; RESP 20; TEMP 98.7; O2SAT 98
[2017-03-22 16:00] VITALS: BP 110/74; PULSE 89; RESP 18; TEMP 98.7; O2SAT 98
[2017-03-22 20:00] VITALS: BP 107/66; PULSE 95; PULSE 96; RESP 22; TEMP 100.1; O2SAT 98
[2017-03-22 23:48] VITALS: BP 113/73; PULSE 102; RESP 16; TEMP 98.6; O2SAT 96
[2017-03-23] MEDS: AMPICILLIN INJ 2,000 MG in SODIUM CHLORIDE 0.9% INJ 100 ML IV SCH ×6 (01:00→20:36)
[2017-03-23] MEDS: MORPHINE SULFATE 4 MG/ML INJ IV PRN ×7 (01:49→21:52)
[2017-03-23] MEDS: OXACILLIN INJ 2 GM in SODIUM CHLORIDE 0.9% INJ 100 ML IV SCH ×6 (02:00→21:52)
[2017-03-23] MEDS: HEPARIN SODIUM - SQ 10,000 UNITS/ML VIAL SQ SCH ×3 (02:00→18:00)
[2017-03-23 04:00] VITALS: BP 107/70; PULSE 97; RESP 20; TEMP 98.2; O2SAT 100
[2017-03-23] MEDS: CHLORHEXIDINE GLUCONATE 2 % 1 PACK (2 CLOTHS) TOP SCH (04:00)
[2017-03-23 08:00] VITALS: BP 110/68; PULSE 92; PULSE 94; RESP 20; TEMP 98.1; O2SAT 98
[2017-03-23] MEDS: RIFAMPIN 150 MG CAP PO SCH ×2 (09:00→20:23)
[2017-03-23] MEDS: SODIUM CHLORIDE 0.9% FLUSH 10 ML FLUSH IV FLUSH SCH ×2 (09:00→20:37)
[2017-03-23] MEDS: DOCUSATE SODIUM 50 MG/SENNA 8.6 MG TAB PO SCH ×2 (09:00→20:23)
[2017-03-23] MEDS: ARTIFICIAL TEARS OPTH SOLN 15 ML BTL EACH EYE SCH ×3 (09:00→17:39)
[2017-03-23] MEDS: POTASSIUM CHLORIDE 20 MEQ CONTROLLED RELEASE TAB PO SCH (09:01)
[2017-03-23] MEDS: FAMOTIDINE 20 MG TAB PO SCH ×2 (09:01→20:23)
[2017-03-23] MEDS: FUROSEMIDE 20 MG TAB PO SCH (09:01)
[2017-03-23] MEDS: METHADONE HCL 10 MG/10 ML ORAL SOLUTION PO SCH ×2 (09:03→20:25)
[2017-03-23 10:51] LABS: BICARBONATE 25.4 MEQ/L (21.0-32.0); POTASSIUM 3.9 MEQ/L (3.5-5.1)
[2017-03-23 11:29] LABS: AUTOMATED NEUTROPHIL # 8.4 TH/MM3 (1.8-7.7); BASOPHIL # 0.1 TH/MM3 (0-0.2); BASOPHIL % 0.9 % (0.0-2.0); EOSINOPHIL # 0.2 TH/MM3 (0-0.4); EOSINOPHIL % 1.6 % (0.0-4.0); HEMATOCRIT 30.9 % (35.0-46.0); HEMO FLAGS AUTO DIFF; LYMPH % 12.9 % (9.0-44.0); LYMPHOCYTE # 1.5 TH/MM3 (1.0-4.8); MEAN CELL VOLUME 75.8 FL (80.0-100.0); MEAN CORPUSCULAR HEMOGLOBIN 24.2 PG (27.0-34.0); MEAN CORPUSCULAR HGB CONC 31.9 % (32.0-36.0); MONO % 11.2 % (0.0-8.0); NEUT % 73.4 % (16.0-70.0); PLATELET COUNT 303 TH/MM3 (150-450); RED BLOOD COUNT 4.08 MIL/MM3 (4.00-5.30); RED CELL DISTRIBUTION WIDTH 17.5 % (11.6-17.2); WHITE BLOOD COUNT 11.4 TH/MM3 (4.0-11.0)
[2017-03-23 12:00] VITALS: BP 118/76; PULSE 92; RESP 20; TEMP 98; O2SAT 100
[2017-03-23 12:10] LABS: SCAN/DIFF AUTO DIFF CONFIRMED
[2017-03-23] MEDS: GENTAMICIN/SOD CHL 80 MG/100 ML IV SCH ×2 (12:13)
--- NOTE | 2017-03-23 14:28 | HHI.PR ---
Subjective Remarks In the chair. Patient says she has some pain in her left arm, also she can't move it much. No fever or chills. Says she has intermittent chest pain and also pain in her upper abdomen. She is able to eat and tolerates food well. No fever or chills. Patien tis requesting for more pain meds. Discussed with Dr Wesley from ID, will eval patient and will decide if needs MRI of left shoulder. Also will consult palliative care for management of pain meds as patient requesting for more pain meds. Objective Vitals Vital Signs Date Time Temp Pulse Resp B/P (MAP) Pulse Ox O2 Delivery O2 Flow Rate FiO2 03/23/17 10:03 18 03/23/17 08:00 98.1 92 20 110/68 (82) 98 03/23/17 04:00 98.2 97 20 107/70 (82) 100 03/22/17 23:48 98.6 102 16 113/73 (86) 96 03/22/17 20:15 Room Air 03/22/17 20:00 100.1 95 22 107/66 (80) 98 03/22/17 20:00 96 03/22/17 16:00 98.7 89 18 110/74 (86) 98 I/O 03/22/17 03/22/17 03/22/17 03/23/17 03/23/17 03/23/17 07:00 15:00 23:00 07:00 15:00 23:00 Intake Total 1940 ml 960 ml 480 ml 360 ml Output Total 2050 ml 1500 ml 700 ml 800 ml Balance -110 ml -540 ml -220 ml -440 ml Intake Oral 1440 ml 960 ml 480 ml 360 ml IV Total 500 ml Output Urine Total 2050 ml 1500 ml 700 ml 800 ml # Bowel Movements 0 1 0 Result Diagram: 03/23/17 1003 03/23/17 0903 Imaging Last Impressions Abdomen CT 03/16/17 0000 Signed Impressions: Service Date/Time: Thursday, March 16, 2017 20:26 - CONCLUSION: 1. Peripheral low attenuation lesions in the spleen most characteristic of multiple splenic infarcts. Some of these are new findings since 2016 comparison. 2. Minimal subsegmental airspace disease at the lung bases. 3. 3.4 cm right adnexal cyst. Intrauterine device present. 4. Small fat containing ventral hernias. Eliud Campoverde MD Chest X-Ray 03/13/17 0000 Signed Impressions: Service Date/Time: Monday, March 13, 2017 08:07 - CONCLUSION: Suspected mild edema/failure. Adalid Perry MD Neck CT 03/10/17 0000 Signed Impressions: Service Date/Time: Friday, March 10, 2017 11:13 - CONCLUSION: 1. Patient is intubated which limits this study. The epiglottis is otherwise normal. Secretions are present in the oropharynx and right sphenoid sinus. Alex Monahan MD Brain MRI 03/02/17 0000 Signed Impressions: Service Date/Time: Thursday, March 02, 2017 17:07 - CONCLUSION: 1. Small acute or subacute cortical infarct of the left parietal lobe. 2. Small, faint area of nonspecific flair signal abnormality in the left frontal lobe periventricular white matter, nonspecific. No associated mass effect or abnormal enhancement. 3 month followup MRI of the brain recommended. 3. Mild chronic white matter changes. Adalid Perry MD Head CT 02/26/17 0000 Signed Impressions: Service Date/Time: Sunday, February 26, 2017 19:47 - CONCLUSION: No evidence of acute infarct, hemorrhage, mass or edema. Ken Sanchez MD Objective Remarks GENERAL: Young female, appears in nad. SKIN: Warm and dry. CARDIOVASCULAR: Regular rate and rhythm with systolic murmur. RESPIRATORY: Decreased breath sound BL, no crackles or wheezing auscultated. No accessory muscle use. GASTROINTESTINAL: Abdomen soft, non-tender, nondistended. MUSCULOSKELETAL: Left shoulder pain with palpation and movement, decreased ROM 2 /2 pain. No cyanosis. 1+ LE edema improving. BACK: Nontender without obvious deformity. No CVA tenderness. 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 Status: Acute (4) SVT (supraventricular tachycardia) ICD Code: I47.1 - Supraventricular tachycardia Status: Resolved (5) Postextubation stridor ICD Code: J95.89 - Other postprocedural complications and disorders of respiratory system, not elsewhere classified Status: Resolved (6) Acute hypoxemic respiratory failure ICD Code: J96.01 - Acute respiratory failure with hypoxia Status: Resolved (7) CVA (cerebral vascular accident) ICD Code: I63.9 - Cerebral infarction, unspecified (8) Tricuspid regurgitation ICD Code: I07.1 - Rheumatic tricuspid insufficiency Status: Acute (9) Acute systolic heart failure ICD Code: I50.21 - Acute systolic (congestive) heart failure (10) Prosthetic valve endocarditis ICD Code: T82.6XXA - Infection and inflammatory reaction due to cardiac valve prosthesis, initial encounter Status: Acute (11) DUONG (acute kidney injury) ICD Code: N17.9 - Acute kidney failure, unspecified Status: Resolved (12) Protein calorie malnutrition ICD Code: E46 - Unspecified protein-calorie malnutrition (13) Microcytic anemia ICD Code: D50.9 - Iron deficiency anemia, unspecified (14) Hyperphosphatemia ICD Code: E83.39 - Other disorders of phosphorus metabolism (15) Hypernatremia ICD Code: E87.0 - Hyperosmolality and hypernatremia (16) IV drug abuse ICD Code: F19.10 - Other psychoactive substance abuse, uncomplicated Status: Acute (17) Headache ICD Code: R51 - Headache (18) Abdominal pain ICD Code: R10.9 - Unspecified abdominal pain Assessment and Plan (1) Severe sepsis Multiple splenic infarcts MSSA meningitis 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 Also will consult palliative care for management of pain meds as patient requesting for more pain meds. ICD Code: A41.9 - Sepsis, unspecified organism; R65.20 - Severe sepsis without septic shock Status: Acute Plan: Sepsis present on admission, the patient presented with leukocytosis and tachycardia as well as after mental status. Initially admitted to the intensive care unit, intubated and cared for by the intensivists. Sepsis found to be secondary to meningitis. Continue IV antibiotics as per infectious disease recommendations. The patient is currently on IV ampicillin, oxacillin, gentamicin and rifampin - continue. Unless more positive blood cx anticipate 6 week from 1st neg (03/01) followed by indefinite oral abx suppression tx. IV abx stop date tentatively. Gentamycin trough 2.0 (2) MSSA meningitis Status: Acute Plan: As above. 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 (4) SVT (supraventricular tachycardia) ICD Code: I47.1 - Supraventricular tachycardia Status: Resolved Plan: SVT now resolved. Continue metoprolol. Echocardiogram revealed an ejection fraction showed 25-30%. PAP 34 mmHg Initially treated with vasopressors which the patient is now off. The patient started on Lasix 20 minute grams by mouth daily. Continue. (5) Postextubation stridor ICD Code: J95.89 - Other postprocedural complications and disorders of respiratory system, not elsewhere classified Status: Resolved Plan: The patient initially extubated on 03/11/17. The patient was administered racemic epinephrine as needed for stridor or Continue albuterol/ipratropium inhaled treatments every 6 hours with every 2 hours as needed for albuterol therapy. Status post today treatment of dexamethasone IV every 8 hours. (6) Acute hypoxemic respiratory failure ICD Code: J96.01 - Acute respiratory failure with hypoxia Status: Resolved Plan: Continue supplemental oxygen to keep oxygen more than 92%. Status post intubation and extubation. Continue DuoNeb treatments. (7) CVA (cerebral vascular accident) ICD Code: I63.9 - Cerebral infarction, unspecified Plan: CT head negative, MRI small acute and subacute cortical infarct of the left parietal lobe. The patient was seen and evaluated by neurology. The patient is on a scheduled methadone 10 mg twice (8) Tricuspid regurgitation ICD Code: I07.1 - Rheumatic tricuspid insufficiency Status: Acute Plan: As seen on echo described above. Continue oral Lasix. (9) Acute systolic heart failure ICD Code: I50.21 - Acute systolic (congestive) heart failure Plan: Continue Lasix orally. continue Lasix 40 mg po daily. (10) Prosthetic valve endocarditis ICD Code: T82.6XXA - Infection and inflammatory reaction due to cardiac valve prosthesis, initial encounter Status: Acute Plan: The patient has history of IV drug abuse. Continue antibiotics as per ID recommendations. Tentative a stop date is 04/12 (11) DUONG (acute kidney injury) ICD Code: N17.9 - Acute kidney failure, unspecified Status: Resolved Plan: Now resolved. Continue to monitor BMP (12) Protein calorie malnutrition ICD Code: E46 - Unspecified protein-calorie malnutrition Plan: Secondary to long-standing IV drug abuse and endocarditis. (13) Microcytic anemia ICD Code: D50.9 - Iron deficiency anemia, unspecified Plan: Hemoglobin seems to be stable at 8.6. I will check iron studies and stool Hemoccult for blood. Patient had iron studies previously concordant with iron deficiency anemia. I will start the patient on oral iron sulfate. (14) Hyperphosphatemia ICD Code: E83.39 - Other disorders of phosphorus metabolism Plan: Now resolved. Continue to monitor levels. (15) Hypernatremia ICD Code: E87.0 - Hyperosmolality and hypernatremia Plan: Likely secondary to dehydration. Sodium now within normal range. Continue to monitor BMP. (16) IV drug abuse ICD Code: F19.10 - Other psychoactive substance abuse, uncomplicated Status: Acute Plan: Advised cessation. Currently on methadone. (17) Headache ICD Code: R51 - Headache Plan: Headache is bifrontal, patient is afebrile. Continue Acetaminophen 1000 mg po Q 6 hrs prn headache. (18) Abdominal pain ICD Code: R10.9 - Unspecified abdominal pain Plan: check CT abdomen and pelvis. Check stool for C diff PCR. (19) Diarrhea, improving Plan: C diff. is negative Continue probiotic. Add Imodium (20) Anasarca. Continue lasix po. Monitor UPO and kidney function closely. Assessment and Plan GI prophylaxis: Continue famotidine. DVT prophylaxis: SCDs, ambulation. DC plan: needs inpatient treatment. DC when cleared by ID specialist. Patient has left shoulder p0ain poss plan for MRI , ID will eval patient and decide. Also will consult palliative cre as patient is asking for more pain meds constantly Problem Qualifiers (1) CVA (cerebral vascular accident): Qualified Codes: I63.9 - Cerebral infarction, unspecified (2) Protein calorie malnutrition: Qualified Codes: E44.0 - Moderate protein-calorie malnutrition Anna Henderson MD Mar 23, 2017 14:28
[2017-03-23 16:00] VITALS: BP 112/77; PULSE 95; RESP 20; TEMP 98; O2SAT 100
--- NOTE | 2017-03-23 16:48 | HHI.IDPN ---
Subjective Subjective Remarks doing OK co new L shoulder pain for few days to a week , worse with movement s no fever Antibiotics ampicillin oxacillin gent rifampin Allergies: Coded Allergies: No Known Allergies (Verified , 09/01/15) Objective . Vital Signs Date Time Temp Pulse Resp B/P (MAP) Pulse Ox O2 Delivery O2 Flow Rate FiO2 03/23/17 10:03 18 03/23/17 08:00 98.1 92 20 110/68 (82) 98 03/23/17 08:00 Nasal Cannula 03/23/17 04:00 98.2 97 20 107/70 (82) 100 03/22/17 23:48 98.6 102 16 113/73 (86) 96 03/22/17 20:15 Room Air 03/22/17 20:00 100.1 95 22 107/66 (80) 98 03/22/17 20:00 96 . Laboratory Tests Test 03/23/17 10:03 White Blood Count 11.4 TH/MM3 Red Blood Count 4.08 MIL/MM3 Hemoglobin 9.9 GM/DL Hematocrit 30.9 % Mean Corpuscular Volume 75.8 FL Mean Corpuscular Hemoglobin 24.2 PG Mean Corpuscular Hemoglobin Concent 31.9 % Red Cell Distribution Width 17.5 % Platelet Count 303 TH/MM3 Mean Platelet Volume 8.3 FL Neutrophils (%) (Auto) 73.4 % Lymphocytes (%) (Auto) 12.9 % Monocytes (%) (Auto) 11.2 % Eosinophils (%) (Auto) 1.6 % Basophils (%) (Auto) 0.9 % Neutrophils # (Auto) 8.4 TH/MM3 Lymphocytes # (Auto) 1.5 TH/MM3 Monocytes # (Auto) 1.3 TH/MM3 Eosinophils # (Auto) 0.2 TH/MM3 Basophils # (Auto) 0.1 TH/MM3 CBC Comment AUTO DIFF Differential Comment AUTO DIFF CONFIRMED Hematology Comments Laboratory Tests Test 03/23/17 09:03 Blood Urea Nitrogen 11 MG/DL Creatinine 1.32 MG/DL Random Glucose 87 MG/DL Calcium Level 9.3 MG/DL Sodium Level 136 MEQ/L Potassium Level 3.9 MEQ/L Chloride Level 100 MEQ/L Carbon Dioxide Level 25.4 MEQ/L Anion Gap 11 MEQ/L Estimat Glomerular Filtration Rate 46 ML/MIN Imaging Last Impressions Abdomen CT 03/16/17 0000 Signed Impressions: Service Date/Time: Thursday, March 16, 2017 20:26 - CONCLUSION: 1. Peripheral low attenuation lesions in the spleen most characteristic of multiple splenic infarcts. Some of these are new findings since 2016 comparison. 2. Minimal subsegmental airspace disease at the lung bases. 3. 3.4 cm right adnexal cyst. Intrauterine device present. 4. Small fat containing ventral hernias. Eliud Campoverde MD Chest X-Ray 03/13/17 0000 Signed Impressions: Service Date/Time: Monday, March 13, 2017 08:07 - CONCLUSION: Suspected mild edema/failure. Adalid Perry MD Neck CT 03/10/17 0000 Signed Impressions: Service Date/Time: Friday, March 10, 2017 11:13 - CONCLUSION: 1. Patient is intubated which limits this study. The epiglottis is otherwise normal. Secretions are present in the oropharynx and right sphenoid sinus. Alex Monahan MD Brain MRI 03/02/17 0000 Signed Impressions: Service Date/Time: Thursday, March 02, 2017 17:07 - CONCLUSION: 1. Small acute or subacute cortical infarct of the left parietal lobe. 2. Small, faint area of nonspecific flair signal abnormality in the left frontal lobe periventricular white matter, nonspecific. No associated mass effect or abnormal enhancement. 3 month followup MRI of the brain recommended. 3. Mild chronic white matter changes. Adalid Perry MD Head CT 02/26/17 0000 Signed Impressions: Service Date/Time: Sunday, February 26, 2017 19:47 - CONCLUSION: No evidence of acute infarct, hemorrhage, mass or edema. Ken Sanchez MD Physical Exam CONSTITUTIONAL/GENERAL: awake alert, , in no apparent distress. TUBES/LINES/DRAINS: SKIN: No jaundice, rashes, or lesions. Skin temperature appropriate. Not diaphoretic. multiple embolic lesions cw septic embolization involving L lower leg and both feet - resolved EYES: No nystagmus Hearing OK CARDIOVASCULAR: Regular rate and rhythm w + 2-3 systo,ic murmur no gallops, or rubs. Mechanical heart sounds No JVD. Peripheral pulses symmetric. RESPIRATORY/CHEST: Symmetric, unlabored respirations. Clear to auscultation. Breath sounds equal bilaterally. GASTROINTESTINAL: Abdomen soft, non-tender, moderately distended. No hepato- splenomegaly, or palpable masses. No guarding. Bowel sounds present, hypoactive GENITOURINARY: Without palpable bladder distension. Watson catheter in place with clear yellow urine MUSCULOSKELETAL: Extremities without clubbing, trace pedal edema. 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 cardiac injury from infx Not a surgical candidate New issue : L shoulder pain: no effusion to suggest septic arthritis, likley musculoskeletal or DJD pain - chk diff to monitor eosinophilia which can be aw curretn abx Rx cont oxacillin + gentamin +RIfampin cont ampicillin for Enterococci monitor closely creatinint and LFTs (2-3x/week) Unless more positive blood clx anticipate 6 week from 1st neg (03/01) followed by indefinite oral abx suppression tx IV abx stop date tenatively 04/12 at least weekly CBC with diff (eosinophilia) , creatinine and LFTs while on the above Rx Monitor shoulder pain, if persists will get imaging study (MRI) dw Dr Santiago Spaulding,Swati Florez MD Mar 23, 2017 16:48
--- NOTE | 2017-03-23 19:23 | HHI.HCPN ---
Reason for visit a. To assist with evaluation and management of symptoms including: pain. b. To assist medical decision maker(s) with: better understanding of current medical conditions; weighing benefits/burdens of medical treatment options; making medical treatment decisions. . Subjective/Interval History Spoke with Dr. Spaulding. Palliative care was reconsulted for pain management. Patient seen and examined in room. She is sitting in chair watching TV. She is awake and alert. She tells me she "doesn't feel good, doesn't feel like she is getting better." I reviewed endocarditis is not curable. Reviewed plan for treatment including IV ABX through 04/12/17 and lifetime oral ABX. She verbalizes understanding and is angry about IV through 04/12. I attempted to revisit goals of care discussion, prior hospice services and CODE status. She becomes frustrated and says "do we have to talk about this right now?" I told her of my prior conversations with family regarding what they thought she wanted and she tells me "they know what I want." She reports pain in her chest, abdomen and left shoulder. She rates pain 5/10, reports IV Morphine decreases pain to about 3/10. She reports chest pain is stable, does not seem worse. She reports pain in left shoulder for "about a week." Hurts with movement, worsens when raising it up and down. Aches when at rest but pain increases with movement. She will not attempt to lift her arm for me, unable to assess ROM. She remains on Methadone 20mg every 12 hours ATC since 03/13/17. She reports no relief with Methadone, I explained long acting nature of Methadone and that it will not work like PRN Morphine. She has had 7 doses of PRN Morphine 3mg IV in the past 24 hours. Will increase Methadone to 25 mg PO every 12 hours. I would recommend transition from IV Morphine in the coming days/weeks to oral as she cannot go home on IV Morphine. Recommend imaging of left shoulder. Tmax 100.1. VSS. On room air. WBC 11.4, hemoglobin 9.9, hematocrit 30.9, platelet 303. Creatinine 1.32. Otherwise labs stable. Recent cultures negative to date. No new imaging. . Family/friend interactions No family at bedside. Advance Directives Living Will: Never completed Health Care Surrogate: Never completed Durable Power of Operations And Intelligence Assistant: Never completed Advance Directive Specifics Health Care Surrogate(s): No known written advanced directives, family is going to try to find [facility]CS paperwork they think pt previously completed. Patient a single. Children are juvenile. If no written advanced directives, according to [place] statutes health care proxy decision-making falls to a parent. . Significant change in goals: FULL CODE. Goals remain aggressive. Objective Vital Signs Date Time Temp Pulse Resp B/P (MAP) Pulse Ox O2 Delivery O2 Flow Rate FiO2 03/23/17 10:03 18 03/23/17 08:00 94 03/23/17 08:00 98.1 92 20 110/68 (82) 98 03/23/17 08:00 Nasal Cannula 03/23/17 04:00 98.2 97 20 107/70 (82) 100 03/22/17 23:48 98.6 102 16 113/73 (86) 96 03/22/17 20:15 Room Air 03/22/17 20:00 100.1 95 22 107/66 (80) 98 03/22/17 20:00 96 Physical Exam CONSTITUTIONAL/GENERAL: This is an adequately nourished patient, sitting in chair. TUBES/LINES/DRAINS: PIV SKIN: afebrile. CARDIOVASCULAR: regular rate and rhythm, + murmur. RESPIRATORY/CHEST: decreased breath sounds bilaterally. GASTROINTESTINAL: Abdomen soft, non-distended, nontender. Bowel sounds active. GENITOURINARY: Without palpable bladder distension. MUSCULOSKELETAL: left shoulder pain, tender to touch, unable to assess ROM. + LE edema. NEUROLOGICAL: Awake and alert. Cognitively sharp. Follows commands. PSYCHIATRIC: agitated with conversation. . Diagnostic Tests Laboratory Laboratory Tests Test 03/21/17 09:48 03/23/17 09:03 03/23/17 10:03 White Blood Count 9.0 TH/MM3 (4.0-11.0) 11.4 TH/MM3 (4.0-11.0) Red Blood Count 3.91 MIL/MM3 (4.00-5.30) 4.08 MIL/MM3 (4.00-5.30) Hemoglobin 9.4 GM/DL (11.6-15.3) 9.9 GM/DL (11.6-15.3) Hematocrit 29.3 % (35.0-46.0) 30.9 % (35.0-46.0) Mean Corpuscular Volume 74.9 FL (80.0-100.0) 75.8 FL (80.0-100.0) Mean Corpuscular Hemoglobin 24.1 PG (27.0-34.0) 24.2 PG (27.0-34.0) Mean Corpuscular Hemoglobin Concent 32.2 % (32.0-36.0) 31.9 % (32.0-36.0) Red Cell Distribution Width 17.6 % (11.6-17.2) 17.5 % (11.6-17.2) Platelet Count 313 TH/MM3 (150-450) 303 TH/MM3 (150-450) Mean Platelet Volume 7.8 FL (7.0-11.0) 8.3 FL (7.0-11.0) Neutrophils (%) (Auto) 74.2 % (16.0-70.0) 73.4 % (16.0-70.0) Lymphocytes (%) (Auto) 13.1 % (9.0-44.0) 12.9 % (9.0-44.0) Monocytes (%) (Auto) 10.2 % (0.0-8.0) 11.2 % (0.0-8.0) Eosinophils (%) (Auto) 1.6 % (0.0-4.0) 1.6 % (0.0-4.0) Basophils (%) (Auto) 0.9 % (0.0-2.0) 0.9 % (0.0-2.0) Neutrophils # (Auto) 6.6 TH/MM3 (1.8-7.7) 8.4 TH/MM3 (1.8-7.7) Lymphocytes # (Auto) 1.2 TH/MM3 (1.0-4.8) 1.5 TH/MM3 (1.0-4.8) Monocytes # (Auto) 0.9 TH/MM3 (0-0.9) 1.3 TH/MM3 (0-0.9) Eosinophils # (Auto) 0.1 TH/MM3 (0-0.4) 0.2 TH/MM3 (0-0.4) Basophils # (Auto) 0.1 TH/MM3 (0-0.2) 0.1 TH/MM3 (0-0.2) CBC Comment DIFF FINAL AUTO DIFF Differential Comment AUTO DIFF CONFIRMED Hematology Comments Blood Urea Nitrogen 10 MG/DL (7-18) 11 MG/DL (7-18) Creatinine 1.26 MG/DL (0.50-1.00) 1.32 MG/DL (0.50-1.00) Random Glucose 137 MG/DL (74-106) 87 MG/DL (74-106) Calcium Level 9.3 MG/DL (8.5-10.1) 9.3 MG/DL (8.5-10.1) Magnesium Level 1.9 MG/DL (1.5-2.5) Sodium Level 137 MEQ/L (136-145) 136 MEQ/L (136-145) Potassium Level 3.4 MEQ/L (3.5-5.1) 3.9 MEQ/L (3.5-5.1) Chloride Level 100 MEQ/L (98-107) 100 MEQ/L (98-107) Carbon Dioxide Level 25.1 MEQ/L (21.0-32.0) 25.4 MEQ/L (21.0-32.0) Anion Gap 12 MEQ/L (5-15) 11 MEQ/L (5-15) Estimat Glomerular Filtration Rate 48 ML/MIN (>89) 46 ML/MIN (>89) Result Diagram: 03/23/17 1003 03/23/17 0903 Microbiology Microbiology Date/Time Source Procedure Growth Status 03/05/17 16:55 Blood Peripheral Aerobic Blood Culture - Final NO GROWTH IN 5 DAYS Complete 03/05/17 16:55 Blood Peripheral Anaerobic Blood Culture - Final NO GROWTH IN 5 DAYS Complete 02/26/17 22:00 Cerebral Spinal Fluid Lumbar Puncture Fungal Smear - Final NO FUNGAL ELEMENTS SEEN. Resulted 02/26/17 22:00 Cerebral Spinal Fluid Lumbar Puncture Fungal Culture - Preliminary NO GROWTH IN 3 WEEKS Resulted 03/08/17 22:00 Sputum Endotracheal Gram Stain - Final Complete 03/08/17 22:00 Sputum Endotracheal Sputum Culture - Final NO GROWTH IN 48 HOURS. Complete Imaging Last Impressions Abdomen CT 03/16/17 0000 Signed Impressions: Service Date/Time: Thursday, March 16, 2017 20:26 - CONCLUSION: 1. Peripheral low attenuation lesions in the spleen most characteristic of multiple splenic infarcts. Some of these are new findings since 2016 comparison. 2. Minimal subsegmental airspace disease at the lung bases. 3. 3.4 cm right adnexal cyst. Intrauterine device present. 4. Small fat containing ventral hernias. Eliud Campoverde MD Chest X-Ray 03/13/17 0000 Signed Impressions: Service Date/Time: Monday, March 13, 2017 08:07 - CONCLUSION: Suspected mild edema/failure. Adalid Perry MD Neck CT 03/10/17 0000 Signed Impressions: Service Date/Time: Friday, March 10, 2017 11:13 - CONCLUSION: 1. Patient is intubated which limits this study. The epiglottis is otherwise normal. Secretions are present in the oropharynx and right sphenoid sinus. Alex Monahan MD Brain MRI 03/02/17 0000 Signed Impressions: Service Date/Time: Thursday, March 02, 2017 17:07 - CONCLUSION: 1. Small acute or subacute cortical infarct of the left parietal lobe. 2. Small, faint area of nonspecific flair signal abnormality in the left frontal lobe periventricular white matter, nonspecific. No associated mass effect or abnormal enhancement. 3 month followup MRI of the brain recommended. 3. Mild chronic white matter changes. Adalid Perry MD Head CT 02/26/17 0000 Signed Impressions: Service Date/Time: Sunday, February 26, 2017 19:47 - CONCLUSION: No evidence of acute infarct, hemorrhage, mass or edema. Ken Sanchez MD Procedures * 02/26/17 - left subclavian central placement. * 02/26/17 - lumbar puncture * 02/26/17 - Intubated. . Assessment and Plan Disease Oriented Problem List: (1) Bacterial endocarditis (2) Protein-calorie malnutrition, severe (3) Meningitis (4) Polysubstance abuse (5) Acute kidney injury Symptom Scale: (1) Pain 0-10 Scale: 5 (2) Dyspnea 0-10 Scale: Unable to quantify Comment: secretions (3) Agitation 0-10 Scale: Unable to quantify Pertinent Non-Medical Issues Psychosocial: single. 2 juvenile children. Supported by mother, stepfather and boyfriend. Spiritual: Unknown. Legal: patient is incapacitated. No written advanced directives. Patient a single. Children are juvenile. According to [place] statutes health care proxy decision-making falls to a parent. Ethical issues impacting care: No known concerns at this time. . Important Contacts * Fany Nielsen, mother: [phone] * Karsten Nielsen, stepfather: [phone] . Prognosis Prognosis poor. Code Status: Full Code Plan * Decision Maker: Patient is currently capacitated to make her own decisions. Patient is not . According to [place] statutes health care proxy decision-making falls to the patient's mother. * FULL CODE. * Goals of care are aggressive. * SYMPTOMS: Pain: rates pain 5 out of 10 new pain left shoulder, recommend imaging. Patient is taken 7 doses of IV morphine 3 mg in the past 24 hours, will increase methadone to 25 mg Q 12 hours. Recommend transitioning patient from IV morphine to oral in anticipation of discharge in the coming weeks. Dyspnea- denies. * Palliative care will continue to follow throughout hospital course to assist with symptom management and clarification of goals as needed. . Attestation To help prompt me to consider important information that might be impacting today's encounter and assessment, information from prior notes written by myself or my colleagues may have been "brought forward" into today's note. My signature on this note, however, is an attestation that I personally performed the exam, history, and/or decision-making noted today, and, unless otherwise indicated, the interactions with patient, family, and staff as well as the review of records all occurred today. I also attest that the listed assessment and stated plan reflect my best clinical judgment today based on the combination of historical information, prior notes, and today's exam/ interactions. When time spent is documented, it refers only to time spent today by the signer, or if indicated, combined time spent today by collaborating physician/nurse practitioner. Shanice García Mar 23, 2017 19:23
[2017-03-23 20:00] VITALS: BP 117/86; PULSE 93; PULSE 99; RESP 20; TEMP 98; O2SAT 97
[2017-03-23] MEDS ORDERED: PHARMACY ORDERED LAB ONE (23:45)
[2017-03-24] VITALS (7 sets, daily range): BP systolic 110–118; BP diastolic 60–86; PULSE 84–96; RESP 16–18; TEMP 97.3–98.6; O2SAT 97–99
[2017-03-24] MEDS: GENTAMICIN/SOD CHL 80 MG/100 ML IV SCH ×3 (00:17→23:13)
[2017-03-24] MEDS: MORPHINE SULFATE 4 MG/ML INJ IV PRN ×6 (01:03→21:19)
[2017-03-24] MEDS: AMPICILLIN INJ 2,000 MG in SODIUM CHLORIDE 0.9% INJ 100 ML IV SCH ×6 (01:09→21:17)
[2017-03-24] MEDS: HEPARIN SODIUM - SQ 10,000 UNITS/ML VIAL SQ SCH ×3 (02:09→17:28)
[2017-03-24] MEDS: OXACILLIN INJ 2 GM in SODIUM CHLORIDE 0.9% INJ 100 ML IV SCH ×6 (02:10→21:19)
[2017-03-24] MEDS: CHLORHEXIDINE GLUCONATE 2 % 1 PACK (2 CLOTHS) TOP SCH (02:10)
[2017-03-24] MEDS: SODIUM CHLORIDE 0.9% FLUSH 10 ML FLUSH IV FLUSH SCH ×2 (09:00→22:06)
[2017-03-24] MEDS: ARTIFICIAL TEARS OPTH SOLN 15 ML BTL EACH EYE SCH ×3 (09:00→17:27)
[2017-03-24] MEDS: DOCUSATE SODIUM 50 MG/SENNA 8.6 MG TAB PO SCH ×2 (09:00→21:18)
[2017-03-24] MEDS: FAMOTIDINE 20 MG TAB PO SCH ×2 (09:04→21:18)
[2017-03-24] MEDS: RIFAMPIN 150 MG CAP PO SCH ×2 (09:04→21:18)
[2017-03-24] MEDS: POTASSIUM CHLORIDE 20 MEQ CONTROLLED RELEASE TAB PO SCH (09:04)
[2017-03-24] MEDS: FUROSEMIDE 20 MG TAB PO SCH (09:04)
[2017-03-24] MEDS: METHADONE HCL 10 MG/10 ML ORAL SOLUTION PO SCH ×2 (09:06→21:17)
--- NOTE | 2017-03-24 09:35 | HHI.PR ---
Subjective Remarks Seen by ID also if persistent shoulder pain will get MRI Patient says she is still with shoulder pain. No n/v/d/c. Denies fever or chills. No n/v/d/c. SOB at baseline. LE edema improving. Objective Vitals Vital Signs Date Time Temp Pulse Resp B/P (MAP) Pulse Ox O2 Delivery O2 Flow Rate FiO2 03/24/17 08:09 98.4 85 18 115/70 (85) 98 03/24/17 04:00 98.5 85 16 110/70 (83) 99 03/24/17 04:00 Room Air 03/24/17 00:00 98.3 84 18 118/71 (87) 99 03/24/17 00:00 Room Air 03/23/17 20:00 Room Air 03/23/17 20:00 93 03/23/17 20:00 98.0 99 20 117/86 (96) 97 03/23/17 16:00 98.0 95 20 112/77 (89) 100 03/23/17 15:34 18 03/23/17 12:00 98.0 92 20 118/76 (90) 100 03/23/17 10:03 18 I/O 03/23/17 03/23/17 03/23/17 03/24/17 03/24/17 03/24/17 07:00 15:00 23:00 07:00 15:00 23:00 Intake Total 860 ml 1400 ml 1920 ml 420 ml Output Total 800 ml 950 ml Balance 60 ml 1400 ml 970 ml 420 ml Intake Oral 360 ml 720 ml 420 ml IV Total 500 ml 1400 ml 1200 ml Output Urine Total 800 ml 950 ml # Voids 3 # Bowel Movements 0 Result Diagram: 03/23/17 1003 03/23/17 0903 Imaging Last Impressions Abdomen CT 03/16/17 0000 Signed Impressions: Service Date/Time: Thursday, March 16, 2017 20:26 - CONCLUSION: 1. Peripheral low attenuation lesions in the spleen most characteristic of multiple splenic infarcts. Some of these are new findings since 2016 comparison. 2. Minimal subsegmental airspace disease at the lung bases. 3. 3.4 cm right adnexal cyst. Intrauterine device present. 4. Small fat containing ventral hernias. Eliud Campoverde MD Chest X-Ray 03/13/17 0000 Signed Impressions: Service Date/Time: Monday, March 13, 2017 08:07 - CONCLUSION: Suspected mild edema/failure. Adalid Perry MD Neck CT 03/10/17 0000 Signed Impressions: Service Date/Time: Friday, March 10, 2017 11:13 - CONCLUSION: 1. Patient is intubated which limits this study. The epiglottis is otherwise normal. Secretions are present in the oropharynx and right sphenoid sinus. Alex Monahan MD Brain MRI 03/02/17 0000 Signed Impressions: Service Date/Time: Thursday, March 02, 2017 17:07 - CONCLUSION: 1. Small acute or subacute cortical infarct of the left parietal lobe. 2. Small, faint area of nonspecific flair signal abnormality in the left frontal lobe periventricular white matter, nonspecific. No associated mass effect or abnormal enhancement. 3 month followup MRI of the brain recommended. 3. Mild chronic white matter changes. Adalid Perry MD Head CT 02/26/17 0000 Signed Impressions: Service Date/Time: Sunday, February 26, 2017 19:47 - CONCLUSION: No evidence of acute infarct, hemorrhage, mass or edema. Ken Sanchez MD Objective Remarks GENERAL: Young female, appears in nad. SKIN: Warm and dry. CARDIOVASCULAR: Regular rate and rhythm with systolic murmur. RESPIRATORY: Decreased breath sound BL, no crackles or wheezing auscultated. No accessory muscle use. GASTROINTESTINAL: Abdomen soft, non-tender, nondistended. MUSCULOSKELETAL: Left shoulder pain with palpation and movement, decreased ROM 2 /2 pain. No cyanosis. 1+ LE edema improving. BACK: Nontender without obvious deformity. No CVA tenderness. 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 Status: Acute (4) SVT (supraventricular tachycardia) ICD Code: I47.1 - Supraventricular tachycardia Status: Resolved (5) Postextubation stridor ICD Code: J95.89 - Other postprocedural complications and disorders of respiratory system, not elsewhere classified Status: Resolved (6) Acute hypoxemic respiratory failure ICD Code: J96.01 - Acute respiratory failure with hypoxia Status: Resolved (7) CVA (cerebral vascular accident) ICD Code: I63.9 - Cerebral infarction, unspecified (8) Tricuspid regurgitation ICD Code: I07.1 - Rheumatic tricuspid insufficiency Status: Acute (9) Acute systolic heart failure ICD Code: I50.21 - Acute systolic (congestive) heart failure (10) Prosthetic valve endocarditis ICD Code: T82.6XXA - Infection and inflammatory reaction due to cardiac valve prosthesis, initial encounter Status: Acute (11) DUONG (acute kidney injury) ICD Code: N17.9 - Acute kidney failure, unspecified Status: Resolved (12) Protein calorie malnutrition ICD Code: E46 - Unspecified protein-calorie malnutrition (13) Microcytic anemia ICD Code: D50.9 - Iron deficiency anemia, unspecified (14) Hyperphosphatemia ICD Code: E83.39 - Other disorders of phosphorus metabolism (15) Hypernatremia ICD Code: E87.0 - Hyperosmolality and hypernatremia (16) IV drug abuse ICD Code: F19.10 - Other psychoactive substance abuse, uncomplicated Status: Acute (17) Headache ICD Code: R51 - Headache (18) Abdominal pain ICD Code: R10.9 - Unspecified abdominal pain Assessment and Plan (1) Severe sepsis Multiple splenic infarcts MSSA meningitis 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 Seen by ID also if persistent shoulder pain will get MRI. Will consult OT Also will consult palliative care for management of pain meds as patient requesting for more pain meds. ICD Code: A41.9 - Sepsis, unspecified organism; R65.20 - Severe sepsis without septic shock Status: Acute Plan: Sepsis present on admission, the patient presented with leukocytosis and tachycardia as well as after mental status. Initially admitted to the intensive care unit, intubated and cared for by the intensivists. Sepsis found to be secondary to meningitis. Continue IV antibiotics as per infectious disease recommendations. The patient is currently on IV ampicillin, oxacillin, gentamicin and rifampin - continue. Unless more positive blood cx anticipate 6 week from 1st neg (03/01) followed by indefinite oral abx suppression tx. IV abx stop date tentatively. Gentamycin trough 2.0 (2) MSSA meningitis Status: Acute Plan: As above. 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 (4) SVT (supraventricular tachycardia) ICD Code: I47.1 - Supraventricular tachycardia Status: Resolved Plan: SVT now resolved. Continue metoprolol. Echocardiogram revealed an ejection fraction showed 25-30%. PAP 34 mmHg Initially treated with vasopressors which the patient is now off. The patient started on Lasix 20 minute grams by mouth daily. Continue. (5) Postextubation stridor ICD Code: J95.89 - Other postprocedural complications and disorders of respiratory system, not elsewhere classified Status: Resolved Plan: The patient initially extubated on 03/11/17. The patient was administered racemic epinephrine as needed for stridor or Continue albuterol/ipratropium inhaled treatments every 6 hours with every 2 hours as needed for albuterol therapy. Status post today treatment of dexamethasone IV every 8 hours. (6) Acute hypoxemic respiratory failure ICD Code: J96.01 - Acute respiratory failure with hypoxia Status: Resolved Plan: Continue supplemental oxygen to keep oxygen more than 92%. Status post intubation and extubation. Continue DuoNeb treatments. (7) CVA (cerebral vascular accident) ICD Code: I63.9 - Cerebral infarction, unspecified Plan: CT head negative, MRI small acute and subacute cortical infarct of the left parietal lobe. The patient was seen and evaluated by neurology. The patient is on a scheduled methadone 10 mg twice (8) Tricuspid regurgitation ICD Code: I07.1 - Rheumatic tricuspid insufficiency Status: Acute Plan: As seen on echo described above. Continue oral Lasix. (9) Acute systolic heart failure ICD Code: I50.21 - Acute systolic (congestive) heart failure Plan: Continue Lasix orally. continue Lasix 40 mg po daily. (10) Prosthetic valve endocarditis ICD Code: T82.6XXA - Infection and inflammatory reaction due to cardiac valve prosthesis, initial encounter Status: Acute Plan: The patient has history of IV drug abuse. Continue antibiotics as per ID recommendations. Tentative a stop date is 04/12 (11) DUONG (acute kidney injury) ICD Code: N17.9 - Acute kidney failure, unspecified Status: Resolved Plan: Now resolved. Continue to monitor BMP (12) Protein calorie malnutrition ICD Code: E46 - Unspecified protein-calorie malnutrition Plan: Secondary to long-standing IV drug abuse and endocarditis. (13) Microcytic anemia ICD Code: D50.9 - Iron deficiency anemia, unspecified Plan: Hemoglobin seems to be stable at 8.6. I will check iron studies and stool Hemoccult for blood. Patient had iron studies previously concordant with iron deficiency anemia. I will start the patient on oral iron sulfate. (14) Hyperphosphatemia ICD Code: E83.39 - Other disorders of phosphorus metabolism Plan: Now resolved. Continue to monitor levels. (15) Hypernatremia ICD Code: E87.0 - Hyperosmolality and hypernatremia Plan: Likely secondary to dehydration. Sodium now within normal range. Continue to monitor BMP. (16) IV drug abuse ICD Code: F19.10 - Other psychoactive substance abuse, uncomplicated Status: Acute Plan: Advised cessation. Currently on methadone. (17) Headache ICD Code: R51 - Headache Plan: Headache is bifrontal, patient is afebrile. Continue Acetaminophen 1000 mg po Q 6 hrs prn headache. (18) Abdominal pain ICD Code: R10.9 - Unspecified abdominal pain Plan: check CT abdomen and pelvis. Check stool for C diff PCR. (19) Diarrhea, improving Plan: C diff. is negative Continue probiotic. Add Imodium (20) Anasarca. Continue lasix po. Monitor UPO and kidney function closely. Assessment and Plan GI prophylaxis: Continue famotidine. DVT prophylaxis: SCDs, ambulation. DC plan: needs inpatient treatment. DC when cleared by ID specialist. Patient has left shoulder p0ain poss plan for MRI , ID will eval patient and decide. Also will consult palliative cre as patient is asking for more pain meds constantly Problem Qualifiers (1) CVA (cerebral vascular accident): Qualified Codes: I63.9 - Cerebral infarction, unspecified (2) Protein calorie malnutrition: Qualified Codes: E44.0 - Moderate protein-calorie malnutrition Anna Henderson MD Mar 24, 2017 09:35
[2017-03-24 12:03] LABS: AUTOMATED NEUTROPHIL # 5.7 TH/MM3 (1.8-7.7); BASOPHIL # 0.1 TH/MM3 (0-0.2); EOSINOPHIL # 0.2 TH/MM3 (0-0.4); EOSINOPHIL % 1.9 % (0.0-4.0); HEMATOCRIT 28.5 % (35.0-46.0); HEMO FLAGS DIFF FINAL; LYMPH % 15.4 % (9.0-44.0); LYMPHOCYTE # 1.2 TH/MM3 (1.0-4.8); MEAN CELL VOLUME 75.1 FL (80.0-100.0); MONO % 9.1 % (0.0-8.0); NEUT % 72.6 % (16.0-70.0); PLATELET COUNT 306 TH/MM3 (150-450); RED CELL DISTRIBUTION WIDTH 17.7 % (11.6-17.2); WHITE BLOOD COUNT 7.8 TH/MM3 (4.0-11.0)
[2017-03-24 12:29] LABS: ANION GAP 13 MEQ/L (5-15); AST (GOT) 18 U/L (15-37); BICARBONATE 25.4 MEQ/L (21.0-32.0); BLOOD UREA NITROGEN 12 MG/DL (7-18); CHLORIDE 98 MEQ/L (98-107); GLOMERULAR FILTRATION RATE 49 ML/MIN (>89); POTASSIUM 3.5 MEQ/L (3.5-5.1); SODIUM (NA) 136 MEQ/L (136-145)
[2017-03-24 12:33] LABS: ALKALINE PHOSPHATASE 96 U/L (45-117); ALT (GPT) 10 U/L (10-53); TOTAL BILIRUBIN ADULT 0.3 MG/DL (0.2-1.0)
[2017-03-25] VITALS (8 sets, daily range): BP systolic 102–138; BP diastolic 62–77; PULSE 79–95; RESP 16–20; TEMP 98–98.7; O2SAT 96–100
[2017-03-25] MEDS: AMPICILLIN INJ 2,000 MG in SODIUM CHLORIDE 0.9% INJ 100 ML IV SCH ×6 (00:42→21:40)
[2017-03-25] MEDS: MORPHINE SULFATE 4 MG/ML INJ IV PRN ×7 (00:42→23:50)
[2017-03-25] MEDS: OXACILLIN INJ 2 GM in SODIUM CHLORIDE 0.9% INJ 100 ML IV SCH ×6 (01:36→23:40)
[2017-03-25] MEDS: HEPARIN SODIUM - SQ 10,000 UNITS/ML VIAL SQ SCH ×4 (01:39→17:47)
[2017-03-25] MEDS: CHLORHEXIDINE GLUCONATE 2 % 1 PACK (2 CLOTHS) TOP SCH (04:00)
[2017-03-25] MEDS: METHADONE HCL 10 MG/10 ML ORAL SOLUTION PO SCH ×2 (08:44→21:41)
[2017-03-25] MEDS: FAMOTIDINE 20 MG TAB PO SCH ×2 (08:45→21:41)
[2017-03-25] MEDS: DOCUSATE SODIUM 50 MG/SENNA 8.6 MG TAB PO SCH ×2 (08:45→21:42)
[2017-03-25] MEDS: RIFAMPIN 150 MG CAP PO SCH ×2 (08:45→21:42)
[2017-03-25] MEDS: POTASSIUM CHLORIDE 20 MEQ CONTROLLED RELEASE TAB PO SCH (08:45)
[2017-03-25] MEDS: FUROSEMIDE 20 MG TAB PO SCH (08:45)
[2017-03-25] MEDS: ARTIFICIAL TEARS OPTH SOLN 15 ML BTL EACH EYE SCH ×3 (08:45→17:47)
[2017-03-25] MEDS: SODIUM CHLORIDE 0.9% FLUSH 10 ML FLUSH IV FLUSH SCH ×2 (08:46→21:41)
--- NOTE | 2017-03-25 10:02 | HHI.PR ---
Subjective Remarks In bed, doesn't appear in distress, however she is complaining of pain. Says still with left shoulder pain , chest pain and abdominal pain. Says has diarrhea at times. No vomiting or nausea. Objective Vitals Vital Signs Date Time Temp Pulse Resp B/P (MAP) Pulse Ox O2 Delivery O2 Flow Rate FiO2 03/25/17 08:12 98.5 84 17 111/71 (84) 100 03/25/17 04:00 Room Air 03/25/17 04:00 98.5 81 20 138/77 (97) 99 03/25/17 00:00 Room Air 03/25/17 00:00 98.7 79 16 102/62 (75) 98 03/24/17 20:00 Room Air 03/24/17 20:00 96 03/24/17 16:09 98.6 95 18 110/60 (77) 98 03/24/17 12:09 97.3 85 18 110/86 (94) 97 I/O 03/24/17 03/24/17 03/24/17 03/25/17 03/25/17 03/25/17 07:00 15:00 23:00 07:00 15:00 23:00 Intake Total 420 ml 940 ml 1080 ml Output Total 2200 ml Balance 420 ml -1260 ml 1080 ml Intake Oral 420 ml 840 ml 480 ml IV Total 100 ml 600 ml Output Urine Total 2200 ml # Voids 3 3 # Bowel Movements 1 0 Result Diagram: 03/24/17 1140 03/24/17 1140 Imaging Last Impressions Abdomen CT 03/16/17 0000 Signed Impressions: Service Date/Time: Thursday, March 16, 2017 20:26 - CONCLUSION: 1. Peripheral low attenuation lesions in the spleen most characteristic of multiple splenic infarcts. Some of these are new findings since 2016 comparison. 2. Minimal subsegmental airspace disease at the lung bases. 3. 3.4 cm right adnexal cyst. Intrauterine device present. 4. Small fat containing ventral hernias. Eliud Campoverde MD Chest X-Ray 03/13/17 0000 Signed Impressions: Service Date/Time: Monday, March 13, 2017 08:07 - CONCLUSION: Suspected mild edema/failure. Adalid Perry MD Neck CT 03/10/17 0000 Signed Impressions: Service Date/Time: Friday, March 10, 2017 11:13 - CONCLUSION: 1. Patient is intubated which limits this study. The epiglottis is otherwise normal. Secretions are present in the oropharynx and right sphenoid sinus. Alex Monahan MD Brain MRI 03/02/17 0000 Signed Impressions: Service Date/Time: Thursday, March 02, 2017 17:07 - CONCLUSION: 1. Small acute or subacute cortical infarct of the left parietal lobe. 2. Small, faint area of nonspecific flair signal abnormality in the left frontal lobe periventricular white matter, nonspecific. No associated mass effect or abnormal enhancement. 3 month followup MRI of the brain recommended. 3. Mild chronic white matter changes. Adalid Perry MD Head CT 02/26/17 0000 Signed Impressions: Service Date/Time: Sunday, February 26, 2017 19:47 - CONCLUSION: No evidence of acute infarct, hemorrhage, mass or edema. Ken Sanchez MD Objective Remarks GENERAL: Young female, appears in nad. SKIN: Warm and dry. CARDIOVASCULAR: Regular rate and rhythm with systolic murmur. RESPIRATORY: Decreased breath sound BL, no crackles or wheezing auscultated. No accessory muscle use. GASTROINTESTINAL: Abdomen soft, non-tender, nondistended. MUSCULOSKELETAL: Left shoulder pain with palpation and movement, decreased ROM 2 /2 pain. No cyanosis. 1+ LE edema improving. BACK: Nontender without obvious deformity. No CVA tenderness. 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 Status: Acute (4) SVT (supraventricular tachycardia) ICD Code: I47.1 - Supraventricular tachycardia Status: Resolved (5) Postextubation stridor ICD Code: J95.89 - Other postprocedural complications and disorders of respiratory system, not elsewhere classified Status: Resolved (6) Acute hypoxemic respiratory failure ICD Code: J96.01 - Acute respiratory failure with hypoxia Status: Resolved (7) CVA (cerebral vascular accident) ICD Code: I63.9 - Cerebral infarction, unspecified (8) Tricuspid regurgitation ICD Code: I07.1 - Rheumatic tricuspid insufficiency Status: Acute (9) Acute systolic heart failure ICD Code: I50.21 - Acute systolic (congestive) heart failure (10) Prosthetic valve endocarditis ICD Code: T82.6XXA - Infection and inflammatory reaction due to cardiac valve prosthesis, initial encounter Status: Acute (11) DUONG (acute kidney injury) ICD Code: N17.9 - Acute kidney failure, unspecified Status: Resolved (12) Protein calorie malnutrition ICD Code: E46 - Unspecified protein-calorie malnutrition (13) Microcytic anemia ICD Code: D50.9 - Iron deficiency anemia, unspecified (14) Hyperphosphatemia ICD Code: E83.39 - Other disorders of phosphorus metabolism (15) Hypernatremia ICD Code: E87.0 - Hyperosmolality and hypernatremia (16) IV drug abuse ICD Code: F19.10 - Other psychoactive substance abuse, uncomplicated Status: Acute (17) Headache ICD Code: R51 - Headache (18) Abdominal pain ICD Code: R10.9 - Unspecified abdominal pain Assessment and Plan (1) Severe sepsis Multiple splenic infarcts MSSA meningitis 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 Seen by ID also if persistent shoulder pain will get MRI. Will consult OT Also will consult palliative care for management of pain meds as patient requesting for more pain meds. ICD Code: A41.9 - Sepsis, unspecified organism; R65.20 - Severe sepsis without septic shock Status: Acute Plan: Sepsis present on admission, the patient presented with leukocytosis and tachycardia as well as after mental status. Initially admitted to the intensive care unit, intubated and cared for by the intensivists. Sepsis found to be secondary to meningitis. Continue IV antibiotics as per infectious disease recommendations. The patient is currently on IV ampicillin, oxacillin, gentamicin and rifampin - continue. Unless more positive blood cx anticipate 6 week from 1st neg (03/01) followed by indefinite oral abx suppression tx. IV abx stop date tentatively. Gentamycin trough 2.0 (2) MSSA meningitis Status: Acute Plan: As above. 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 (4) SVT (supraventricular tachycardia) ICD Code: I47.1 - Supraventricular tachycardia Status: Resolved Plan: SVT now resolved. Continue metoprolol. Echocardiogram revealed an ejection fraction showed 25-30%. PAP 34 mmHg Initially treated with vasopressors which the patient is now off. The patient started on Lasix 20 minute grams by mouth daily. Continue. (5) Postextubation stridor ICD Code: J95.89 - Other postprocedural complications and disorders of respiratory system, not elsewhere classified Status: Resolved Plan: The patient initially extubated on 03/11/17. The patient was administered racemic epinephrine as needed for stridor or Continue albuterol/ipratropium inhaled treatments every 6 hours with every 2 hours as needed for albuterol therapy. Status post today treatment of dexamethasone IV every 8 hours. (6) Acute hypoxemic respiratory failure ICD Code: J96.01 - Acute respiratory failure with hypoxia Status: Resolved Plan: Continue supplemental oxygen to keep oxygen more than 92%. Status post intubation and extubation. Continue DuoNeb treatments. (7) CVA (cerebral vascular accident) ICD Code: I63.9 - Cerebral infarction, unspecified Plan: CT head negative, MRI small acute and subacute cortical infarct of the left parietal lobe. The patient was seen and evaluated by neurology. The patient is on a scheduled methadone 10 mg twice (8) Tricuspid regurgitation ICD Code: I07.1 - Rheumatic tricuspid insufficiency Status: Acute Plan: As seen on echo described above. Continue oral Lasix. (9) Acute systolic heart failure ICD Code: I50.21 - Acute systolic (congestive) heart failure Plan: Continue Lasix orally. continue Lasix 40 mg po daily. (10) Prosthetic valve endocarditis ICD Code: T82.6XXA - Infection and inflammatory reaction due to cardiac valve prosthesis, initial encounter Status: Acute Plan: The patient has history of IV drug abuse. Continue antibiotics as per ID recommendations. Tentative a stop date is 04/12 (11) DUONG (acute kidney injury) ICD Code: N17.9 - Acute kidney failure, unspecified Status: Resolved Plan: Now resolved. Continue to monitor BMP (12) Protein calorie malnutrition ICD Code: E46 - Unspecified protein-calorie malnutrition Plan: Secondary to long-standing IV drug abuse and endocarditis. (13) Microcytic anemia ICD Code: D50.9 - Iron deficiency anemia, unspecified Plan: Hemoglobin seems to be stable at 8.6. I will check iron studies and stool Hemoccult for blood. Patient had iron studies previously concordant with iron deficiency anemia. I will start the patient on oral iron sulfate. (14) Hyperphosphatemia ICD Code: E83.39 - Other disorders of phosphorus metabolism Plan: Now resolved. Continue to monitor levels. (15) Hypernatremia ICD Code: E87.0 - Hyperosmolality and hypernatremia Plan: Likely secondary to dehydration. Sodium now within normal range. Continue to monitor BMP. (16) IV drug abuse ICD Code: F19.10 - Other psychoactive substance abuse, uncomplicated Status: Acute Plan: Advised cessation. Currently on methadone. (17) Headache ICD Code: R51 - Headache Plan: Headache is bifrontal, patient is afebrile. Continue Acetaminophen 1000 mg po Q 6 hrs prn headache. (18) Abdominal pain ICD Code: R10.9 - Unspecified abdominal pain Plan: check CT abdomen and pelvis. Check stool for C diff PCR. (19) Diarrhea, improving Plan: C diff. is negative Continue probiotic. Add Imodium (20) Anasarca. Continue lasix po. Monitor UPO and kidney function closely. Assessment and Plan GI prophylaxis: Continue famotidine. DVT prophylaxis: SCDs, ambulation. DC plan: needs inpatient treatment. DC when cleared by ID specialist. Patient has left shoulder pain poss plan for MRI if pain persists , ID will decide. Also palliative care consulted as patient is asking for more pain meds constantly Problem Qualifiers (1) CVA (cerebral vascular accident): Qualified Codes: I63.9 - Cerebral infarction, unspecified (2) Protein calorie malnutrition: Qualified Codes: E44.0 - Moderate protein-calorie malnutrition Anna Henderson MD Mar 25, 2017 10:02
[2017-03-25] MEDS: GENTAMICIN/SOD CHL 80 MG/100 ML IV SCH (12:00)
[2017-03-25] MEDS: SODIUM CHLORIDE 0.9% FLUSH 10 ML FLUSH IV FLUSH PRN (21:43)
[2017-03-26] VITALS (7 sets, daily range): BP systolic 96–138; BP diastolic 62–86; PULSE 80–89; RESP 16–20; TEMP 97.8–98.7; O2SAT 96–100
[2017-03-26] MEDS: GENTAMICIN/SOD CHL 80 MG/100 ML IV SCH ×2 (01:00→23:31)
[2017-03-26] MEDS: AMPICILLIN INJ 2,000 MG in SODIUM CHLORIDE 0.9% INJ 100 ML IV SCH ×6 (01:55→20:14)
[2017-03-26] MEDS: HEPARIN SODIUM - SQ 10,000 UNITS/ML VIAL SQ SCH ×4 (02:00→18:31)
[2017-03-26] MEDS: CHLORHEXIDINE GLUCONATE 2 % 1 PACK (2 CLOTHS) TOP SCH (02:56)
[2017-03-26] MEDS: OXACILLIN INJ 2 GM in SODIUM CHLORIDE 0.9% INJ 100 ML IV SCH ×6 (02:56→21:47)
[2017-03-26] MEDS: MORPHINE SULFATE 4 MG/ML INJ IV PRN ×7 (02:56→23:31)
[2017-03-26] MEDS: ARTIFICIAL TEARS OPTH SOLN 15 ML BTL EACH EYE SCH ×3 (09:00→18:00)
[2017-03-26] MEDS: POTASSIUM CHLORIDE 20 MEQ CONTROLLED RELEASE TAB PO SCH (09:00)
[2017-03-26] MEDS: FAMOTIDINE 20 MG TAB PO SCH ×2 (09:17→20:16)
[2017-03-26] MEDS: RIFAMPIN 150 MG CAP PO SCH ×2 (09:17→20:16)
[2017-03-26] MEDS: FUROSEMIDE 20 MG TAB PO SCH (09:17)
[2017-03-26] MEDS: DOCUSATE SODIUM 50 MG/SENNA 8.6 MG TAB PO SCH ×2 (09:17→20:15)
[2017-03-26] MEDS: METHADONE HCL 10 MG/10 ML ORAL SOLUTION PO SCH ×2 (09:21→21:47)
[2017-03-26] MEDS: SODIUM CHLORIDE 0.9% FLUSH 10 ML FLUSH IV FLUSH SCH ×2 (09:21→20:15)
--- NOTE | 2017-03-26 10:43 | HHI.PR ---
Subjective Remarks Patient in the chair. Says shoulder pain improved with OT and she can move it better. No fever or chills. Chest pain on /off, says has abd pain like a belt under the ribs. No cough, fever or chills. Has diarrhea. LE edema improved. Objective Vitals Vital Signs Date Time Temp Pulse Resp B/P (MAP) Pulse Ox O2 Delivery O2 Flow Rate FiO2 03/26/17 08:00 98.2 86 20 115/76 (89) 100 03/26/17 04:12 98.4 80 16 96/62 (73) 97 03/26/17 00:20 97.9 81 16 96/65 (75) 96 03/25/17 20:16 98.4 95 16 120/75 (90) 96 03/25/17 20:00 Room Air 03/25/17 19:52 94 03/25/17 16:12 98.0 85 18 106/63 (77) 98 03/25/17 12:38 98.3 89 17 103/72 (82) 97 I/O 03/25/17 03/25/17 03/25/17 03/26/17 03/26/17 03/26/17 07:00 15:00 23:00 07:00 15:00 23:00 Intake Total 1080 ml 960 ml Output Total 2000 ml Balance 1080 ml -1040 ml Intake Oral 480 ml 960 ml IV Total 600 ml Output Urine Total 2000 ml # Voids 3 2 4 # Bowel Movements 0 1 Result Diagram: 03/24/17 1140 03/24/17 1140 Objective Remarks GENERAL: Young female, appears in nad. SKIN: Warm and dry. CARDIOVASCULAR: Regular rate and rhythm with systolic murmur. RESPIRATORY: Decreased breath sound BL, no crackles or wheezing auscultated. No accessory muscle use. GASTROINTESTINAL: Abdomen soft, non-tender, nondistended. MUSCULOSKELETAL: Left shoulder pain with palpation and movement, decreased ROM 2 /2 pain, improving with OT. No cyanosis. 1+ LE edema improving. BACK: Nontender without obvious deformity. No CVA tenderness. 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 Status: Acute (4) SVT (supraventricular tachycardia) ICD Code: I47.1 - Supraventricular tachycardia Status: Resolved (5) Postextubation stridor ICD Code: J95.89 - Other postprocedural complications and disorders of respiratory system, not elsewhere classified Status: Resolved (6) Acute hypoxemic respiratory failure ICD Code: J96.01 - Acute respiratory failure with hypoxia Status: Resolved (7) CVA (cerebral vascular accident) ICD Code: I63.9 - Cerebral infarction, unspecified (8) Tricuspid regurgitation ICD Code: I07.1 - Rheumatic tricuspid insufficiency Status: Acute (9) Acute systolic heart failure ICD Code: I50.21 - Acute systolic (congestive) heart failure (10) Prosthetic valve endocarditis ICD Code: T82.6XXA - Infection and inflammatory reaction due to cardiac valve prosthesis, initial encounter Status: Acute (11) DUONG (acute kidney injury) ICD Code: N17.9 - Acute kidney failure, unspecified Status: Resolved (12) Protein calorie malnutrition ICD Code: E46 - Unspecified protein-calorie malnutrition (13) Microcytic anemia ICD Code: D50.9 - Iron deficiency anemia, unspecified (14) Hyperphosphatemia ICD Code: E83.39 - Other disorders of phosphorus metabolism (15) Hypernatremia ICD Code: E87.0 - Hyperosmolality and hypernatremia (16) IV drug abuse ICD Code: F19.10 - Other psychoactive substance abuse, uncomplicated Status: Acute (17) Headache ICD Code: R51 - Headache (18) Abdominal pain ICD Code: R10.9 - Unspecified abdominal pain Assessment and Plan (1) Severe sepsis Multiple splenic infarcts MSSA meningitis 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 Seen by ID also if persistent shoulder pain will get MRI. Will consult OT Also will consult palliative care for management of pain meds as patient requesting for more pain meds. ICD Code: A41.9 - Sepsis, unspecified organism; R65.20 - Severe sepsis without septic shock Status: Acute Plan: Sepsis present on admission, the patient presented with leukocytosis and tachycardia as well as after mental status. Initially admitted to the intensive care unit, intubated and cared for by the intensivists. Sepsis found to be secondary to meningitis. Continue IV antibiotics as per infectious disease recommendations. The patient is currently on IV ampicillin, oxacillin, gentamicin and rifampin - continue. Unless more positive blood cx anticipate 6 week from 1st neg (03/01) followed by indefinite oral abx suppression tx. IV abx stop date tentatively. Gentamycin trough 2.0 (2) MSSA meningitis Status: Acute Plan: As above. 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 (4) SVT (supraventricular tachycardia) ICD Code: I47.1 - Supraventricular tachycardia Status: Resolved Plan: SVT now resolved. Continue metoprolol. Echocardiogram revealed an ejection fraction showed 25-30%. PAP 34 mmHg Initially treated with vasopressors which the patient is now off. The patient started on Lasix 20 minute grams by mouth daily. Continue. (5) Postextubation stridor ICD Code: J95.89 - Other postprocedural complications and disorders of respiratory system, not elsewhere classified Status: Resolved Plan: The patient initially extubated on 03/11/17. The patient was administered racemic epinephrine as needed for stridor or Continue albuterol/ipratropium inhaled treatments every 6 hours with every 2 hours as needed for albuterol therapy. Status post today treatment of dexamethasone IV every 8 hours. (6) Acute hypoxemic respiratory failure ICD Code: J96.01 - Acute respiratory failure with hypoxia Status: Resolved Plan: Continue supplemental oxygen to keep oxygen more than 92%. Status post intubation and extubation. Continue DuoNeb treatments. (7) CVA (cerebral vascular accident) ICD Code: I63.9 - Cerebral infarction, unspecified Plan: CT head negative, MRI small acute and subacute cortical infarct of the left parietal lobe. The patient was seen and evaluated by neurology. The patient is on a scheduled methadone 10 mg twice (8) Tricuspid regurgitation ICD Code: I07.1 - Rheumatic tricuspid insufficiency Status: Acute Plan: As seen on echo described above. Continue oral Lasix. (9) Acute systolic heart failure ICD Code: I50.21 - Acute systolic (congestive) heart failure Plan: Continue Lasix orally. continue Lasix 40 mg po daily. (10) Prosthetic valve endocarditis ICD Code: T82.6XXA - Infection and inflammatory reaction due to cardiac valve prosthesis, initial encounter Status: Acute Plan: The patient has history of IV drug abuse. Continue antibiotics as per ID recommendations. Tentative a stop date is 04/12 (11) DUONG (acute kidney injury) ICD Code: N17.9 - Acute kidney failure, unspecified Status: Resolved Plan: Now resolved. Continue to monitor BMP (12) Protein calorie malnutrition ICD Code: E46 - Unspecified protein-calorie malnutrition Plan: Secondary to long-standing IV drug abuse and endocarditis. (13) Microcytic anemia ICD Code: D50.9 - Iron deficiency anemia, unspecified Plan: Hemoglobin seems to be stable at 8.6. I will check iron studies and stool Hemoccult for blood. Patient had iron studies previously concordant with iron deficiency anemia. I will start the patient on oral iron sulfate. (14) Hyperphosphatemia ICD Code: E83.39 - Other disorders of phosphorus metabolism Plan: Now resolved. Continue to monitor levels. (15) Hypernatremia ICD Code: E87.0 - Hyperosmolality and hypernatremia Plan: Likely secondary to dehydration. Sodium now within normal range. Continue to monitor BMP. (16) IV drug abuse ICD Code: F19.10 - Other psychoactive substance abuse, uncomplicated Status: Acute Plan: Advised cessation. Currently on methadone. (17) Headache ICD Code: R51 - Headache Plan: Headache is bifrontal, patient is afebrile. Continue Acetaminophen 1000 mg po Q 6 hrs prn headache. (18) Abdominal pain ICD Code: R10.9 - Unspecified abdominal pain Plan: check CT abdomen and pelvis. Check stool for C diff PCR. (19) Diarrhea, improving Plan: C diff. is negative Continue probiotic. Add Imodium (20) Anasarca. Continue lasix po. Monitor UPO and kidney function closely. Assessment and Plan GI prophylaxis: Continue famotidine. DVT prophylaxis: SCDs, ambulation. DC plan: needs inpatient treatment. DC when cleared by ID specialist. Patient has left shoulder pain poss plan for MRI if pain persists , ID will decide. Also palliative care consulted as patient is asking for more pain meds constantly Problem Qualifiers (1) CVA (cerebral vascular accident): Qualified Codes: I63.9 - Cerebral infarction, unspecified (2) Protein calorie malnutrition: Qualified Codes: E44.0 - Moderate protein-calorie malnutrition Anna Henderson MD Mar 26, 2017 10:43
[2017-03-27] VITALS (8 sets, daily range): BP systolic 96–116; BP diastolic 65–76; PULSE 72–87; RESP 16–20; TEMP 97.6–98.5; O2SAT 96–100
[2017-03-27] MEDS ORDERED: GENTAMICIN INJ 80 MG in SODIUM CHLORIDE 0.9% INJ 100 ML IV SCH ×2
[2017-03-27] MEDS: ACETAMINOPHEN 325 MG TAB PO PRN ×3 (00:49→18:43)
[2017-03-27] MEDS: AMPICILLIN INJ 2,000 MG in SODIUM CHLORIDE 0.9% INJ 100 ML IV SCH ×6 (00:49→20:28)
[2017-03-27] MEDS: OXACILLIN INJ 2 GM in SODIUM CHLORIDE 0.9% INJ 100 ML IV SCH ×6 (02:30→21:38)
[2017-03-27] MEDS: HEPARIN SODIUM - SQ 10,000 UNITS/ML VIAL SQ SCH ×3 (02:30→17:09)
[2017-03-27] MEDS: CHLORHEXIDINE GLUCONATE 2 % 1 PACK (2 CLOTHS) TOP SCH (04:00)
[2017-03-27] MEDS: MORPHINE SULFATE 4 MG/ML INJ IV PRN ×6 (05:54→21:39)
[2017-03-27] MEDS: METHADONE HCL 10 MG/10 ML ORAL SOLUTION PO SCH ×2 (08:44→20:29)
[2017-03-27] MEDS: RIFAMPIN 150 MG CAP PO SCH ×2 (08:47→20:29)
[2017-03-27] MEDS: SODIUM CHLORIDE 0.9% FLUSH 10 ML FLUSH IV FLUSH SCH ×2 (08:47→20:28)
[2017-03-27] MEDS: POTASSIUM CHLORIDE 20 MEQ CONTROLLED RELEASE TAB PO SCH (08:47)
[2017-03-27] MEDS: ARTIFICIAL TEARS OPTH SOLN 15 ML BTL EACH EYE SCH ×3 (08:47→17:09)
[2017-03-27] MEDS: FAMOTIDINE 20 MG TAB PO SCH ×2 (08:47→20:29)
[2017-03-27] MEDS: DOCUSATE SODIUM 50 MG/SENNA 8.6 MG TAB PO SCH ×2 (08:48→20:29)
[2017-03-27] MEDS: FUROSEMIDE 20 MG TAB PO SCH (08:48)
--- NOTE | 2017-03-27 10:51 | HHI.PR ---
Subjective Remarks Patient appears in nad. However says she still has chest pain, left shoulder pain. Says has loose stools after eating. No fever or chills. No nausea or vomiting. Objective Vitals Vital Signs Date Time Temp Pulse Resp B/P (MAP) Pulse Ox O2 Delivery O2 Flow Rate FiO2 03/27/17 08:00 98.2 78 20 96/69 (78) 99 03/27/17 04:00 97.6 81 16 111/65 (80) 96 03/27/17 00:00 98.5 72 16 106/65 (79) 97 03/26/17 20:00 Room Air 03/26/17 20:00 97.8 85 16 101/67 (78) 97 03/26/17 20:00 86 03/26/17 16:00 98.7 89 20 138/86 (103) 100 03/26/17 12:00 98.6 83 20 120/86 (97) 98 I/O 03/26/17 03/26/17 03/26/17 03/27/17 03/27/17 03/27/17 07:00 15:00 23:00 07:00 15:00 23:00 Intake Total 360 ml 1170 ml Balance 360 ml 1170 ml Intake Oral 360 ml 470 ml IV Total 700 ml # Voids 4 4 5 # Bowel Movements 1 1 Result Diagram: 03/24/17 1140 03/24/17 1140 Imaging Last Impressions Abdomen CT 03/16/17 0000 Signed Impressions: Service Date/Time: Thursday, March 16, 2017 20:26 - CONCLUSION: 1. Peripheral low attenuation lesions in the spleen most characteristic of multiple splenic infarcts. Some of these are new findings since 2016 comparison. 2. Minimal subsegmental airspace disease at the lung bases. 3. 3.4 cm right adnexal cyst. Intrauterine device present. 4. Small fat containing ventral hernias. Eliud Campoverde MD Chest X-Ray 03/13/17 0000 Signed Impressions: Service Date/Time: Monday, March 13, 2017 08:07 - CONCLUSION: Suspected mild edema/failure. Adalid Perry MD Neck CT 03/10/17 0000 Signed Impressions: Service Date/Time: Friday, March 10, 2017 11:13 - CONCLUSION: 1. Patient is intubated which limits this study. The epiglottis is otherwise normal. Secretions are present in the oropharynx and right sphenoid sinus. Alex Monahan MD Brain MRI 03/02/17 0000 Signed Impressions: Service Date/Time: Thursday, March 02, 2017 17:07 - CONCLUSION: 1. Small acute or subacute cortical infarct of the left parietal lobe. 2. Small, faint area of nonspecific flair signal abnormality in the left frontal lobe periventricular white matter, nonspecific. No associated mass effect or abnormal enhancement. 3 month followup MRI of the brain recommended. 3. Mild chronic white matter changes. Adalid Perry MD Head CT 02/26/17 0000 Signed Impressions: Service Date/Time: Sunday, February 26, 2017 19:47 - CONCLUSION: No evidence of acute infarct, hemorrhage, mass or edema. Ken Sanchez MD Objective Remarks GENERAL: Young female, appears in nad. SKIN: Warm and dry. CARDIOVASCULAR: Regular rate and rhythm with systolic murmur. RESPIRATORY: Decreased breath sound BL, no crackles or wheezing auscultated. No accessory muscle use. GASTROINTESTINAL: Abdomen soft, non-tender, nondistended. MUSCULOSKELETAL: Left shoulder pain with palpation and movement, decreased ROM 2 /2 pain, improving with OT. No cyanosis. 1+ LE edema improving. BACK: Nontender without obvious deformity. No CVA tenderness. 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 Status: Acute (4) SVT (supraventricular tachycardia) ICD Code: I47.1 - Supraventricular tachycardia Status: Resolved (5) Postextubation stridor ICD Code: J95.89 - Other postprocedural complications and disorders of respiratory system, not elsewhere classified Status: Resolved (6) Acute hypoxemic respiratory failure ICD Code: J96.01 - Acute respiratory failure with hypoxia Status: Resolved (7) CVA (cerebral vascular accident) ICD Code: I63.9 - Cerebral infarction, unspecified (8) Tricuspid regurgitation ICD Code: I07.1 - Rheumatic tricuspid insufficiency Status: Acute (9) Acute systolic heart failure ICD Code: I50.21 - Acute systolic (congestive) heart failure (10) Prosthetic valve endocarditis ICD Code: T82.6XXA - Infection and inflammatory reaction due to cardiac valve prosthesis, initial encounter Status: Acute (11) DUONG (acute kidney injury) ICD Code: N17.9 - Acute kidney failure, unspecified Status: Resolved (12) Protein calorie malnutrition ICD Code: E46 - Unspecified protein-calorie malnutrition (13) Microcytic anemia ICD Code: D50.9 - Iron deficiency anemia, unspecified (14) Hyperphosphatemia ICD Code: E83.39 - Other disorders of phosphorus metabolism (15) Hypernatremia ICD Code: E87.0 - Hyperosmolality and hypernatremia (16) IV drug abuse ICD Code: F19.10 - Other psychoactive substance abuse, uncomplicated Status: Acute (17) Headache ICD Code: R51 - Headache (18) Abdominal pain ICD Code: R10.9 - Unspecified abdominal pain Assessment and Plan (1) Severe sepsis Multiple splenic infarcts MSSA meningitis 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 Seen by ID also if persistent shoulder pain will get MRI. Will consult OT Also will consult palliative care for management of pain meds as patient requesting for more pain meds. ICD Code: A41.9 - Sepsis, unspecified organism; R65.20 - Severe sepsis without septic shock Status: Acute Plan: Sepsis present on admission, the patient presented with leukocytosis and tachycardia as well as after mental status. Initially admitted to the intensive care unit, intubated and cared for by the intensivists. Sepsis found to be secondary to meningitis. Continue IV antibiotics as per infectious disease recommendations. The patient is currently on IV ampicillin, oxacillin, gentamicin and rifampin - continue. Unless more positive blood cx anticipate 6 week from 1st neg (03/01) followed by indefinite oral abx suppression tx. IV abx stop date tentatively. Gentamycin trough 2.0 (2) MSSA meningitis Status: Acute Plan: As above. 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 (4) SVT (supraventricular tachycardia) ICD Code: I47.1 - Supraventricular tachycardia Status: Resolved Plan: SVT now resolved. Continue metoprolol. Echocardiogram revealed an ejection fraction showed 25-30%. PAP 34 mmHg Initially treated with vasopressors which the patient is now off. The patient started on Lasix 20 minute grams by mouth daily. Continue. (5) Postextubation stridor ICD Code: J95.89 - Other postprocedural complications and disorders of respiratory system, not elsewhere classified Status: Resolved Plan: The patient initially extubated on 03/11/17. The patient was administered racemic epinephrine as needed for stridor or Continue albuterol/ipratropium inhaled treatments every 6 hours with every 2 hours as needed for albuterol therapy. Status post today treatment of dexamethasone IV every 8 hours. (6) Acute hypoxemic respiratory failure ICD Code: J96.01 - Acute respiratory failure with hypoxia Status: Resolved Plan: Continue supplemental oxygen to keep oxygen more than 92%. Status post intubation and extubation. Continue DuoNeb treatments. (7) CVA (cerebral vascular accident) ICD Code: I63.9 - Cerebral infarction, unspecified Plan: CT head negative, MRI small acute and subacute cortical infarct of the left parietal lobe. The patient was seen and evaluated by neurology. The patient is on a scheduled methadone 10 mg twice (8) Tricuspid regurgitation ICD Code: I07.1 - Rheumatic tricuspid insufficiency Status: Acute Plan: As seen on echo described above. Continue oral Lasix. (9) Acute systolic heart failure ICD Code: I50.21 - Acute systolic (congestive) heart failure Plan: Continue Lasix orally. continue Lasix 40 mg po daily. (10) Prosthetic valve endocarditis ICD Code: T82.6XXA - Infection and inflammatory reaction due to cardiac valve prosthesis, initial encounter Status: Acute Plan: The patient has history of IV drug abuse. Continue antibiotics as per ID recommendations. Tentative a stop date is 04/12 (11) DUONG (acute kidney injury) ICD Code: N17.9 - Acute kidney failure, unspecified Status: Resolved Plan: Now resolved. Continue to monitor BMP (12) Protein calorie malnutrition ICD Code: E46 - Unspecified protein-calorie malnutrition Plan: Secondary to long-standing IV drug abuse and endocarditis. (13) Microcytic anemia ICD Code: D50.9 - Iron deficiency anemia, unspecified Plan: Hemoglobin seems to be stable at 8.6. I will check iron studies and stool Hemoccult for blood. Patient had iron studies previously concordant with iron deficiency anemia. I will start the patient on oral iron sulfate. (14) Hyperphosphatemia ICD Code: E83.39 - Other disorders of phosphorus metabolism Plan: Now resolved. Continue to monitor levels. (15) Hypernatremia ICD Code: E87.0 - Hyperosmolality and hypernatremia Plan: Likely secondary to dehydration. Sodium now within normal range. Continue to monitor BMP. (16) IV drug abuse ICD Code: F19.10 - Other psychoactive substance abuse, uncomplicated Status: Acute Plan: Advised cessation. Currently on methadone. (17) Headache ICD Code: R51 - Headache Plan: Headache is bifrontal, patient is afebrile. Continue Acetaminophen 1000 mg po Q 6 hrs prn headache. (18) Abdominal pain ICD Code: R10.9 - Unspecified abdominal pain Plan: check CT abdomen and pelvis. Check stool for C diff PCR. (19) Diarrhea, improving Plan: C diff. is negative Continue probiotic. Add Imodium (20) Anasarca. Continue lasix po. Monitor UPO and kidney function closely. Assessment and Plan GI prophylaxis: Continue famotidine. DVT prophylaxis: SCDs, ambulation. DC plan: needs inpatient treatment. DC when cleared by ID specialist. Patient has left shoulder pain poss plan for MRI if pain persists , ID will decide. Also palliative care consulted as patient is asking for more pain meds constantly, doty management per palliative care transition to PO Problem Qualifiers (1) CVA (cerebral vascular accident): Qualified Codes: I63.9 - Cerebral infarction, unspecified (2) Protein calorie malnutrition: Qualified Codes: E44.0 - Moderate protein-calorie malnutrition Anna Henderson MD Mar 27, 2017 10:51
[2017-03-27] MEDS: GENTAMICIN/SOD CHL 80 MG/100 ML IV SCH ×2 (11:53→23:22)
[2017-03-28] VITALS: BP 90/58; PULSE 82; RESP 18; TEMP 97.4; O2SAT 96
[2017-03-28] MEDS: HEPARIN SODIUM - SQ 10,000 UNITS/ML VIAL SQ SCH ×3 (00:49→17:36)
[2017-03-28] MEDS: MORPHINE SULFATE 4 MG/ML INJ IV PRN ×7 (00:49→20:51)
[2017-03-28] MEDS: AMPICILLIN INJ 2,000 MG in SODIUM CHLORIDE 0.9% INJ 100 ML IV SCH ×6 (00:49→17:39)
[2017-03-28] MEDS: OXACILLIN INJ 2 GM in SODIUM CHLORIDE 0.9% INJ 100 ML IV SCH ×6 (02:33→20:50)
[2017-03-28] MEDS: CHLORHEXIDINE GLUCONATE 2 % 1 PACK (2 CLOTHS) TOP SCH (02:35)
[2017-03-28 04:00] VITALS: BP 104/75; PULSE 93; RESP 18; TEMP 97.6; O2SAT 98
[2017-03-28] MEDS: SODIUM CHLORIDE 0.9% FLUSH 10 ML FLUSH IV FLUSH SCH ×2 (07:27→20:50)
[2017-03-28] MEDS: RIFAMPIN 150 MG CAP PO SCH ×2 (07:56→20:49)
[2017-03-28] MEDS: POTASSIUM CHLORIDE 20 MEQ CONTROLLED RELEASE TAB PO SCH (07:57)
[2017-03-28] MEDS: FAMOTIDINE 20 MG TAB PO SCH ×2 (07:57→20:49)
[2017-03-28] MEDS: FUROSEMIDE 20 MG TAB PO SCH (07:58)
[2017-03-28] MEDS: ARTIFICIAL TEARS OPTH SOLN 15 ML BTL EACH EYE SCH ×3 (07:58→17:36)
[2017-03-28] MEDS: METHADONE HCL 10 MG/10 ML ORAL SOLUTION PO SCH ×2 (07:58→20:49)
[2017-03-28] MEDS: DOCUSATE SODIUM 50 MG/SENNA 8.6 MG TAB PO SCH ×3 (07:59→20:52)
[2017-03-28 08:00] VITALS: BP 112/66; PULSE 85; RESP 16; TEMP 98; O2SAT 97
[2017-03-28] MEDS ORDERED: PHARMACY ORDERED LAB ONE (11:45)
[2017-03-28 12:00] VITALS: BP 127/85; PULSE 86; RESP 18; TEMP 97.3; O2SAT 99
--- NOTE | 2017-03-28 12:05 | HHI.PR ---
Subjective Remarks In the chair. Patient denies any chest pain or sob. Says pain in her left shoulder is improving and can move better her lft arm and shoulder. :LEedema has imprpved. No fever ro chills. No abd pain. Diarrhea on/off. Objective Vitals Vital Signs Date Time Temp Pulse Resp B/P (MAP) Pulse Ox O2 Delivery O2 Flow Rate FiO2 03/28/17 10:54 Room Air 21 03/28/17 08:00 98.0 85 16 112/66 (81) 97 03/28/17 04:00 97.6 93 18 104/75 (85) 98 03/28/17 03:56 Room Air 03/28/17 00:00 97.4 82 18 90/58 (69) 96 03/28/17 00:00 Room Air 03/27/17 20:18 87 03/27/17 20:00 Room Air 03/27/17 20:00 98.1 87 18 116/76 (89) 97 03/27/17 17:39 99 21 03/27/17 16:00 98.2 84 20 107/68 (81) 99 03/27/17 14:37 Room Air 21 I/O 03/27/17 03/27/17 03/27/17 03/28/17 03/28/17 03/28/17 07:00 15:00 23:00 07:00 15:00 23:00 Intake Total 1170 ml 780 ml 700 ml Output Total 1000 ml Balance 1170 ml -220 ml 700 ml Intake Oral 470 ml 780 ml IV Total 700 ml 700 ml Output Urine Total 1000 ml # Voids 5 # Bowel Movements 1 1 Result Diagram: 03/24/17 1140 03/28/17 0855 Imaging Last Impressions Abdomen CT 03/16/17 0000 Signed Impressions: Service Date/Time: Thursday, March 16, 2017 20:26 - CONCLUSION: 1. Peripheral low attenuation lesions in the spleen most characteristic of multiple splenic infarcts. Some of these are new findings since 2016 comparison. 2. Minimal subsegmental airspace disease at the lung bases. 3. 3.4 cm right adnexal cyst. Intrauterine device present. 4. Small fat containing ventral hernias. Eliud Campoverde MD Chest X-Ray 03/13/17 0000 Signed Impressions: Service Date/Time: Monday, March 13, 2017 08:07 - CONCLUSION: Suspected mild edema/failure. Adalid Perry MD Neck CT 03/10/17 0000 Signed Impressions: Service Date/Time: Friday, March 10, 2017 11:13 - CONCLUSION: 1. Patient is intubated which limits this study. The epiglottis is otherwise normal. Secretions are present in the oropharynx and right sphenoid sinus. Alex Monahan MD Brain MRI 03/02/17 0000 Signed Impressions: Service Date/Time: Thursday, March 02, 2017 17:07 - CONCLUSION: 1. Small acute or subacute cortical infarct of the left parietal lobe. 2. Small, faint area of nonspecific flair signal abnormality in the left frontal lobe periventricular white matter, nonspecific. No associated mass effect or abnormal enhancement. 3 month followup MRI of the brain recommended. 3. Mild chronic white matter changes. Adalid Perry MD Head CT 02/26/17 0000 Signed Impressions: Service Date/Time: Sunday, February 26, 2017 19:47 - CONCLUSION: No evidence of acute infarct, hemorrhage, mass or edema. Ken Sanchez MD Objective Remarks GENERAL: Young female, appears in nad. SKIN: Warm and dry. CARDIOVASCULAR: Regular rate and rhythm with systolic murmur. RESPIRATORY: Decreased breath sound BL, no crackles or wheezing auscultated. No accessory muscle use. GASTROINTESTINAL: Abdomen soft, non-tender, nondistended. MUSCULOSKELETAL: Left shoulder pain with palpation and movement, decreased ROM 2 /2 pain, improving with OT. No cyanosis. 1+ LE edema improving. BACK: Nontender without obvious deformity. No CVA tenderness. 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 Status: Acute (4) SVT (supraventricular tachycardia) ICD Code: I47.1 - Supraventricular tachycardia Status: Resolved (5) Postextubation stridor ICD Code: J95.89 - Other postprocedural complications and disorders of respiratory system, not elsewhere classified Status: Resolved (6) Acute hypoxemic respiratory failure ICD Code: J96.01 - Acute respiratory failure with hypoxia Status: Resolved (7) CVA (cerebral vascular accident) ICD Code: I63.9 - Cerebral infarction, unspecified (8) Tricuspid regurgitation ICD Code: I07.1 - Rheumatic tricuspid insufficiency Status: Acute (9) Acute systolic heart failure ICD Code: I50.21 - Acute systolic (congestive) heart failure (10) Prosthetic valve endocarditis ICD Code: T82.6XXA - Infection and inflammatory reaction due to cardiac valve prosthesis, initial encounter Status: Acute (11) DUONG (acute kidney injury) ICD Code: N17.9 - Acute kidney failure, unspecified Status: Resolved (12) Protein calorie malnutrition ICD Code: E46 - Unspecified protein-calorie malnutrition (13) Microcytic anemia ICD Code: D50.9 - Iron deficiency anemia, unspecified (14) Hyperphosphatemia ICD Code: E83.39 - Other disorders of phosphorus metabolism (15) Hypernatremia ICD Code: E87.0 - Hyperosmolality and hypernatremia (16) IV drug abuse ICD Code: F19.10 - Other psychoactive substance abuse, uncomplicated Status: Acute (17) Headache ICD Code: R51 - Headache (18) Abdominal pain ICD Code: R10.9 - Unspecified abdominal pain Assessment and Plan (1) Severe sepsis Multiple splenic infarcts MSSA meningitis 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 Seen by ID also if persistent shoulder pain will get MRI. Will consult OT Also will consult palliative care for management of pain meds as patient requesting for more pain meds. ICD Code: A41.9 - Sepsis, unspecified organism; R65.20 - Severe sepsis without septic shock Status: Acute Plan: Sepsis present on admission, the patient presented with leukocytosis and tachycardia as well as after mental status. Initially admitted to the intensive care unit, intubated and cared for by the intensivists. Sepsis found to be secondary to meningitis. Continue IV antibiotics as per infectious disease recommendations. The patient is currently on IV ampicillin, oxacillin, gentamicin and rifampin - continue. Unless more positive blood cx anticipate 6 week from 1st neg (03/01) followed by indefinite oral abx suppression tx. IV abx stop date tentatively. Gentamycin trough 2.0 (2) MSSA meningitis Status: Acute Plan: As above. 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 (4) SVT (supraventricular tachycardia) ICD Code: I47.1 - Supraventricular tachycardia Status: Resolved Plan: SVT now resolved. Continue metoprolol. Echocardiogram revealed an ejection fraction showed 25-30%. PAP 34 mmHg Initially treated with vasopressors which the patient is now off. The patient started on Lasix 20 minute grams by mouth daily. Continue. (5) Postextubation stridor ICD Code: J95.89 - Other postprocedural complications and disorders of respiratory system, not elsewhere classified Status: Resolved Plan: The patient initially extubated on 03/11/17. The patient was administered racemic epinephrine as needed for stridor or Continue albuterol/ipratropium inhaled treatments every 6 hours with every 2 hours as needed for albuterol therapy. Status post today treatment of dexamethasone IV every 8 hours. (6) Acute hypoxemic respiratory failure ICD Code: J96.01 - Acute respiratory failure with hypoxia Status: Resolved Plan: Continue supplemental oxygen to keep oxygen more than 92%. Status post intubation and extubation. Continue DuoNeb treatments. (7) CVA (cerebral vascular accident) ICD Code: I63.9 - Cerebral infarction, unspecified Plan: CT head negative, MRI small acute and subacute cortical infarct of the left parietal lobe. The patient was seen and evaluated by neurology. The patient is on a scheduled methadone 10 mg twice (8) Tricuspid regurgitation ICD Code: I07.1 - Rheumatic tricuspid insufficiency Status: Acute Plan: As seen on echo described above. Continue oral Lasix. (9) Acute systolic heart failure ICD Code: I50.21 - Acute systolic (congestive) heart failure Plan: Continue Lasix orally. continue Lasix 40 mg po daily. (10) Prosthetic valve endocarditis ICD Code: T82.6XXA - Infection and inflammatory reaction due to cardiac valve prosthesis, initial encounter Status: Acute Plan: The patient has history of IV drug abuse. Continue antibiotics as per ID recommendations. Tentative a stop date is 04/12 (11) DUONG (acute kidney injury) ICD Code: N17.9 - Acute kidney failure, unspecified Status: Resolved Plan: Now resolved. Continue to monitor BMP (12) Protein calorie malnutrition ICD Code: E46 - Unspecified protein-calorie malnutrition Plan: Secondary to long-standing IV drug abuse and endocarditis. (13) Microcytic anemia ICD Code: D50.9 - Iron deficiency anemia, unspecified Plan: Hemoglobin seems to be stable at 8.6. I will check iron studies and stool Hemoccult for blood. Patient had iron studies previously concordant with iron deficiency anemia. I will start the patient on oral iron sulfate. (14) Hyperphosphatemia ICD Code: E83.39 - Other disorders of phosphorus metabolism Plan: Now resolved. Continue to monitor levels. (15) Hypernatremia ICD Code: E87.0 - Hyperosmolality and hypernatremia Plan: Likely secondary to dehydration. Sodium now within normal range. Continue to monitor BMP. (16) IV drug abuse ICD Code: F19.10 - Other psychoactive substance abuse, uncomplicated Status: Acute Plan: Advised cessation. Currently on methadone. (17) Headache ICD Code: R51 - Headache Plan: Headache is bifrontal, patient is afebrile. Continue Acetaminophen 1000 mg po Q 6 hrs prn headache. (18) Abdominal pain ICD Code: R10.9 - Unspecified abdominal pain Plan: check CT abdomen and pelvis. Check stool for C diff PCR. (19) Diarrhea, improving Plan: C diff. is negative Continue probiotic. Add Imodium (20) Anasarca. Continue lasix po. Monitor UPO and kidney function closely. Assessment and Plan GI prophylaxis: Continue famotidine. DVT prophylaxis: SCDs, ambulation. DC plan: needs inpatient treatment. DC when cleared by ID specialist. Patient has left shoulder pain poss plan for MRI if pain persists , ID will decide. Also palliative care consulted as patient is asking for more pain meds constantly, doty management per palliative care transition to PO Problem Qualifiers (1) CVA (cerebral vascular accident): Qualified Codes: I63.9 - Cerebral infarction, unspecified (2) Protein calorie malnutrition: Qualified Codes: E44.0 - Moderate protein-calorie malnutrition Anna Henderson MD Mar 28, 2017 12:05
[2017-03-28] MEDS: ACETAMINOPHEN 325 MG TAB PO PRN ×3 (12:33→23:00)
[2017-03-28] MEDS: GENTAMICIN/SOD CHL 80 MG/100 ML IV SCH (12:49)
[2017-03-28 16:00] VITALS: BP 116/79; PULSE 86; RESP 18; TEMP 98; O2SAT 100
[2017-03-28 20:00] VITALS: BP 117/76; PULSE 81; PULSE 84; RESP 18; TEMP 98.3; O2SAT 100
[2017-03-29] VITALS: BP 112/78; PULSE 80; RESP 18; TEMP 97.8; O2SAT 97
[2017-03-29] MEDS: MORPHINE SULFATE 4 MG/ML INJ IV PRN ×6 (00:44→23:15)
[2017-03-29] MEDS: AMPICILLIN INJ 2,000 MG in SODIUM CHLORIDE 0.9% INJ 100 ML IV SCH ×6 (00:48→20:05)
[2017-03-29] MEDS: OXACILLIN INJ 2 GM in SODIUM CHLORIDE 0.9% INJ 100 ML IV SCH ×6 (00:51→22:13)
[2017-03-29] MEDS: HEPARIN SODIUM - SQ 10,000 UNITS/ML VIAL SQ SCH ×3 (00:51→18:50)
[2017-03-29 04:00] VITALS: BP 129/79; PULSE 72; RESP 18; TEMP 97.9; O2SAT 99
[2017-03-29] MEDS: CHLORHEXIDINE GLUCONATE 2 % 1 PACK (2 CLOTHS) TOP SCH (04:00)
[2017-03-29] MEDS: GENTAMICIN/SOD CHL 80 MG/100 ML IV SCH ×2 (05:07→23:15)
[2017-03-29 08:00] VITALS: BP 126/64; PULSE 84; RESP 18; TEMP 98.3; O2SAT 99
[2017-03-29] MEDS: SODIUM CHLORIDE 0.9% FLUSH 10 ML FLUSH IV FLUSH SCH ×2 (09:00→20:04)
[2017-03-29] MEDS: DOCUSATE SODIUM 50 MG/SENNA 8.6 MG TAB PO SCH ×2 (09:00→20:05)
[2017-03-29] MEDS: ARTIFICIAL TEARS OPTH SOLN 15 ML BTL EACH EYE SCH ×3 (09:08→18:49)
[2017-03-29] MEDS: POTASSIUM CHLORIDE 20 MEQ CONTROLLED RELEASE TAB PO SCH (09:10)
[2017-03-29] MEDS: FUROSEMIDE 20 MG TAB PO SCH (09:11)
[2017-03-29] MEDS: RIFAMPIN 150 MG CAP PO SCH ×2 (09:13→20:04)
[2017-03-29] MEDS: FAMOTIDINE 20 MG TAB PO SCH ×2 (09:13→20:04)
[2017-03-29] MEDS: METHADONE HCL 10 MG/10 ML ORAL SOLUTION PO SCH ×2 (09:13→22:13)
--- NOTE | 2017-03-29 09:14 | HHI.PR ---
Subjective Remarks Patient in bed, says she has pain in her chest , left shoulder and also feels sob, says she did not get yet pain meds. She si satting well on room air. No n/ v/d/c. Objective Vitals Vital Signs Date Time Temp Pulse Resp B/P (MAP) Pulse Ox O2 Delivery O2 Flow Rate FiO2 03/29/17 04:00 97.9 72 18 129/79 (96) 99 03/29/17 00:00 97.8 80 18 112/78 (89) 97 03/28/17 20:00 98.3 84 18 117/76 (90) 100 03/28/17 20:00 81 03/28/17 19:30 Room Air 03/28/17 16:00 98.0 86 18 116/79 (91) 100 03/28/17 12:00 97.3 86 18 127/85 (99) 99 03/28/17 10:54 Room Air 21 I/O 03/28/17 03/28/17 03/28/17 03/29/17 03/29/17 03/29/17 07:00 15:00 23:00 07:00 15:00 23:00 Intake Total 700 ml 100 ml 1020 ml Balance 700 ml 100 ml 1020 ml Intake Oral 720 ml IV Total 700 ml 100 ml 300 ml # Voids 3 # Bowel Movements 0 Result Diagram: 03/28/17 0855 Imaging Last Impressions Abdomen CT 03/16/17 0000 Signed Impressions: Service Date/Time: Thursday, March 16, 2017 20:26 - CONCLUSION: 1. Peripheral low attenuation lesions in the spleen most characteristic of multiple splenic infarcts. Some of these are new findings since 2016 comparison. 2. Minimal subsegmental airspace disease at the lung bases. 3. 3.4 cm right adnexal cyst. Intrauterine device present. 4. Small fat containing ventral hernias. Eliud Campoverde MD Chest X-Ray 03/13/17 0000 Signed Impressions: Service Date/Time: Monday, March 13, 2017 08:07 - CONCLUSION: Suspected mild edema/failure. Adalid Perry MD Neck CT 03/10/17 0000 Signed Impressions: Service Date/Time: Friday, March 10, 2017 11:13 - CONCLUSION: 1. Patient is intubated which limits this study. The epiglottis is otherwise normal. Secretions are present in the oropharynx and right sphenoid sinus. Alex Monahan MD Brain MRI 03/02/17 0000 Signed Impressions: Service Date/Time: Thursday, March 02, 2017 17:07 - CONCLUSION: 1. Small acute or subacute cortical infarct of the left parietal lobe. 2. Small, faint area of nonspecific flair signal abnormality in the left frontal lobe periventricular white matter, nonspecific. No associated mass effect or abnormal enhancement. 3 month followup MRI of the brain recommended. 3. Mild chronic white matter changes. Adalid Perry MD Head CT 02/26/17 0000 Signed Impressions: Service Date/Time: Sunday, February 26, 2017 19:47 - CONCLUSION: No evidence of acute infarct, hemorrhage, mass or edema. Ken Sanchez MD Objective Remarks GENERAL: Young female, appears in nad. SKIN: Warm and dry. CARDIOVASCULAR: Regular rate and rhythm with systolic murmur. RESPIRATORY: Decreased breath sound BL, no crackles or wheezing auscultated. No accessory muscle use. GASTROINTESTINAL: Abdomen soft, non-tender, nondistended. MUSCULOSKELETAL: Left shoulder pain with palpation and movement, decreased ROM 2 /2 pain, improving with OT. No cyanosis. 1+ LE edema improving. BACK: Nontender without obvious deformity. No CVA tenderness. 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 Status: Acute (4) SVT (supraventricular tachycardia) ICD Code: I47.1 - Supraventricular tachycardia Status: Resolved (5) Postextubation stridor ICD Code: J95.89 - Other postprocedural complications and disorders of respiratory system, not elsewhere classified Status: Resolved (6) Acute hypoxemic respiratory failure ICD Code: J96.01 - Acute respiratory failure with hypoxia Status: Resolved (7) CVA (cerebral vascular accident) ICD Code: I63.9 - Cerebral infarction, unspecified (8) Tricuspid regurgitation ICD Code: I07.1 - Rheumatic tricuspid insufficiency Status: Acute (9) Acute systolic heart failure ICD Code: I50.21 - Acute systolic (congestive) heart failure (10) Prosthetic valve endocarditis ICD Code: T82.6XXA - Infection and inflammatory reaction due to cardiac valve prosthesis, initial encounter Status: Acute (11) DUONG (acute kidney injury) ICD Code: N17.9 - Acute kidney failure, unspecified Status: Resolved (12) Protein calorie malnutrition ICD Code: E46 - Unspecified protein-calorie malnutrition (13) Microcytic anemia ICD Code: D50.9 - Iron deficiency anemia, unspecified (14) Hyperphosphatemia ICD Code: E83.39 - Other disorders of phosphorus metabolism (15) Hypernatremia ICD Code: E87.0 - Hyperosmolality and hypernatremia (16) IV drug abuse ICD Code: F19.10 - Other psychoactive substance abuse, uncomplicated Status: Acute (17) Headache ICD Code: R51 - Headache (18) Abdominal pain ICD Code: R10.9 - Unspecified abdominal pain Assessment and Plan (1) Severe sepsis Multiple splenic infarcts MSSA meningitis 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 Seen by ID also if persistent shoulder pain will get MRI. Will consult OT Also will consult palliative care for management of pain meds as patient requesting for more pain meds. ICD Code: A41.9 - Sepsis, unspecified organism; R65.20 - Severe sepsis without septic shock Status: Acute Plan: Sepsis present on admission, the patient presented with leukocytosis and tachycardia as well as after mental status. Initially admitted to the intensive care unit, intubated and cared for by the intensivists. Sepsis found to be secondary to meningitis. Continue IV antibiotics as per infectious disease recommendations. The patient is currently on IV ampicillin, oxacillin, gentamicin and rifampin - continue. Unless more positive blood cx anticipate 6 week from 1st neg (03/01) followed by indefinite oral abx suppression tx. IV abx stop date tentatively. Gentamycin trough 2.0 (2) MSSA meningitis Status: Acute Plan: As above. 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 (4) SVT (supraventricular tachycardia) ICD Code: I47.1 - Supraventricular tachycardia Status: Resolved Plan: SVT now resolved. Continue metoprolol. Echocardiogram revealed an ejection fraction showed 25-30%. PAP 34 mmHg Initially treated with vasopressors which the patient is now off. The patient started on Lasix 20 minute grams by mouth daily. Continue. (5) Postextubation stridor ICD Code: J95.89 - Other postprocedural complications and disorders of respiratory system, not elsewhere classified Status: Resolved Plan: The patient initially extubated on 03/11/17. The patient was administered racemic epinephrine as needed for stridor or Continue albuterol/ipratropium inhaled treatments every 6 hours with every 2 hours as needed for albuterol therapy. Status post today treatment of dexamethasone IV every 8 hours. (6) Acute hypoxemic respiratory failure ICD Code: J96.01 - Acute respiratory failure with hypoxia Status: Resolved Plan: Continue supplemental oxygen to keep oxygen more than 92%. Status post intubation and extubation. Continue DuoNeb treatments. (7) CVA (cerebral vascular accident) ICD Code: I63.9 - Cerebral infarction, unspecified Plan: CT head negative, MRI small acute and subacute cortical infarct of the left parietal lobe. The patient was seen and evaluated by neurology. The patient is on a scheduled methadone 10 mg twice (8) Tricuspid regurgitation ICD Code: I07.1 - Rheumatic tricuspid insufficiency Status: Acute Plan: As seen on echo described above. Continue oral Lasix. (9) Acute systolic heart failure ICD Code: I50.21 - Acute systolic (congestive) heart failure Plan: Continue Lasix orally. continue Lasix 40 mg po daily. (10) Prosthetic valve endocarditis ICD Code: T82.6XXA - Infection and inflammatory reaction due to cardiac valve prosthesis, initial encounter Status: Acute Plan: The patient has history of IV drug abuse. Continue antibiotics as per ID recommendations. Tentative a stop date is 04/12 (11) DUONG (acute kidney injury) ICD Code: N17.9 - Acute kidney failure, unspecified Status: Resolved Plan: Now resolved. Continue to monitor BMP (12) Protein calorie malnutrition ICD Code: E46 - Unspecified protein-calorie malnutrition Plan: Secondary to long-standing IV drug abuse and endocarditis. (13) Microcytic anemia ICD Code: D50.9 - Iron deficiency anemia, unspecified Plan: Hemoglobin seems to be stable at 8.6. I will check iron studies and stool Hemoccult for blood. Patient had iron studies previously concordant with iron deficiency anemia. I will start the patient on oral iron sulfate. (14) Hyperphosphatemia ICD Code: E83.39 - Other disorders of phosphorus metabolism Plan: Now resolved. Continue to monitor levels. (15) Hypernatremia ICD Code: E87.0 - Hyperosmolality and hypernatremia Plan: Likely secondary to dehydration. Sodium now within normal range. Continue to monitor BMP. (16) IV drug abuse ICD Code: F19.10 - Other psychoactive substance abuse, uncomplicated Status: Acute Plan: Advised cessation. Currently on methadone. (17) Headache ICD Code: R51 - Headache Plan: Headache is bifrontal, patient is afebrile. Continue Acetaminophen 1000 mg po Q 6 hrs prn headache. (18) Abdominal pain ICD Code: R10.9 - Unspecified abdominal pain Plan: check CT abdomen and pelvis. Check stool for C diff PCR. (19) Diarrhea, improving Plan: C diff. is negative Continue probiotic. Add Imodium (20) Anasarca. Continue lasix po. Monitor UPO and kidney function closely. Assessment and Plan GI prophylaxis: Continue famotidine. DVT prophylaxis: SCDs, ambulation. DC plan: needs inpatient treatment. DC when cleared by ID specialist. Patient has left shoulder pain poss plan for MRI if pain persists , ID will decide. Also palliative care consulted as patient is asking for more pain meds constantly, doty management per palliative care transition to PO and taper down Problem Qualifiers (1) CVA (cerebral vascular accident): Qualified Codes: I63.9 - Cerebral infarction, unspecified (2) Protein calorie malnutrition: Qualified Codes: E44.0 - Moderate protein-calorie malnutrition Anna Henderson MD Mar 29, 2017 09:14
[2017-03-29 12:00] VITALS: BP 127/77; PULSE 77; RESP 16; TEMP 97.8; O2SAT 100
[2017-03-29 16:00] VITALS: BP 105/71; PULSE 85; RESP 16; TEMP 98.3; O2SAT 99
[2017-03-29 20:00] VITALS: BP 132/78; PULSE 86; PULSE 88; RESP 18; TEMP 98.5; O2SAT 98
[2017-03-30] VITALS (7 sets, daily range): BP systolic 107–126; BP diastolic 67–86; PULSE 74–84; RESP 16–18; TEMP 97.6–98.3; O2SAT 97–100
[2017-03-30] MEDS: HEPARIN SODIUM - SQ 10,000 UNITS/ML VIAL SQ SCH ×3 (01:02→18:00)
[2017-03-30] MEDS: AMPICILLIN INJ 2,000 MG in SODIUM CHLORIDE 0.9% INJ 100 ML IV SCH ×6 (01:12→20:43)
[2017-03-30] MEDS: OXACILLIN INJ 2 GM in SODIUM CHLORIDE 0.9% INJ 100 ML IV SCH ×6 (02:22→21:50)
[2017-03-30] MEDS: MORPHINE SULFATE 4 MG/ML INJ IV PRN ×4 (02:23→21:52)
[2017-03-30] MEDS: CHLORHEXIDINE GLUCONATE 2 % 1 PACK (2 CLOTHS) TOP SCH (03:31)
[2017-03-30] MEDS: SODIUM CHLORIDE 0.9% FLUSH 10 ML FLUSH IV FLUSH SCH ×2 (09:00→20:45)
[2017-03-30] MEDS: DOCUSATE SODIUM 50 MG/SENNA 8.6 MG TAB PO SCH ×2 (09:00→20:44)
[2017-03-30] MEDS: ARTIFICIAL TEARS OPTH SOLN 15 ML BTL EACH EYE SCH ×3 (09:24→19:04)
[2017-03-30] MEDS: POTASSIUM CHLORIDE 20 MEQ CONTROLLED RELEASE TAB PO SCH (09:24)
[2017-03-30] MEDS: FUROSEMIDE 20 MG TAB PO SCH (09:25)
[2017-03-30] MEDS: METHADONE HCL 10 MG/10 ML ORAL SOLUTION PO SCH ×2 (09:25→20:45)
[2017-03-30] MEDS: FAMOTIDINE 20 MG TAB PO SCH ×2 (09:26→20:43)
[2017-03-30] MEDS: RIFAMPIN 150 MG CAP PO SCH ×2 (09:26→20:43)
--- NOTE | 2017-03-30 11:21 | HHI.PR ---
Subjective Remarks Has chest pain with deep breathing, satting well on room air. Has left shoulder pain, improved with OT. No fever or chills. No cough. No n/v/d/c. Objective Vitals Vital Signs Date Time Temp Pulse Resp B/P (MAP) Pulse Ox O2 Delivery O2 Flow Rate FiO2 03/30/17 10:21 18 03/30/17 10:21 18 03/30/17 08:00 98.2 78 18 116/72 (87) 98 03/30/17 04:00 98.1 74 18 115/73 (87) 98 03/30/17 00:00 97.6 78 18 107/67 (80) 97 03/29/17 20:00 98.5 86 18 132/78 (96) 98 03/29/17 20:00 88 03/29/17 19:00 Room Air 03/29/17 18:23 99 Room Air 03/29/17 16:00 98.3 85 16 105/71 (82) 99 03/29/17 12:00 97.8 77 16 127/77 (94) 100 I/O 03/29/17 03/29/17 03/29/17 03/30/17 03/30/17 03/30/17 07:00 15:00 23:00 07:00 15:00 23:00 Intake Total 1120 ml 200 ml 1740 ml 1640 ml Balance 1120 ml 200 ml 1740 ml 1640 ml Intake Oral 720 ml 1440 ml 580 ml IV Total 400 ml 200 ml 300 ml 1060 ml # Voids 3 7 6 # Bowel Movements 0 1 0 Result Diagram: 03/30/17 0535 Imaging Last Impressions Abdomen CT 03/16/17 0000 Signed Impressions: Service Date/Time: Thursday, March 16, 2017 20:26 - CONCLUSION: 1. Peripheral low attenuation lesions in the spleen most characteristic of multiple splenic infarcts. Some of these are new findings since 2016 comparison. 2. Minimal subsegmental airspace disease at the lung bases. 3. 3.4 cm right adnexal cyst. Intrauterine device present. 4. Small fat containing ventral hernias. Eliud Campoverde MD Chest X-Ray 03/13/17 0000 Signed Impressions: Service Date/Time: Monday, March 13, 2017 08:07 - CONCLUSION: Suspected mild edema/failure. Adalid Perry MD Neck CT 03/10/17 0000 Signed Impressions: Service Date/Time: Friday, March 10, 2017 11:13 - CONCLUSION: 1. Patient is intubated which limits this study. The epiglottis is otherwise normal. Secretions are present in the oropharynx and right sphenoid sinus. Alex Monahan MD Brain MRI 03/02/17 0000 Signed Impressions: Service Date/Time: Thursday, March 02, 2017 17:07 - CONCLUSION: 1. Small acute or subacute cortical infarct of the left parietal lobe. 2. Small, faint area of nonspecific flair signal abnormality in the left frontal lobe periventricular white matter, nonspecific. No associated mass effect or abnormal enhancement. 3 month followup MRI of the brain recommended. 3. Mild chronic white matter changes. Adalid Perry MD Head CT 02/26/17 0000 Signed Impressions: Service Date/Time: Sunday, February 26, 2017 19:47 - CONCLUSION: No evidence of acute infarct, hemorrhage, mass or edema. Ken Sanchez MD Objective Remarks GENERAL: Young female, appears in nad. SKIN: Warm and dry. CARDIOVASCULAR: Regular rate and rhythm with systolic murmur. RESPIRATORY: Decreased breath sound BL, no crackles or wheezing auscultated. No accessory muscle use. GASTROINTESTINAL: Abdomen soft, non-tender, nondistended. MUSCULOSKELETAL: Left shoulder pain with palpation and movement, decreased ROM 2 /2 pain, improving with OT. No cyanosis. 1+ LE edema improving. BACK: Nontender without obvious deformity. No CVA tenderness. 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 Status: Acute (4) SVT (supraventricular tachycardia) ICD Code: I47.1 - Supraventricular tachycardia Status: Resolved (5) Postextubation stridor ICD Code: J95.89 - Other postprocedural complications and disorders of respiratory system, not elsewhere classified Status: Resolved (6) Acute hypoxemic respiratory failure ICD Code: J96.01 - Acute respiratory failure with hypoxia Status: Resolved (7) CVA (cerebral vascular accident) ICD Code: I63.9 - Cerebral infarction, unspecified (8) Tricuspid regurgitation ICD Code: I07.1 - Rheumatic tricuspid insufficiency Status: Acute (9) Acute systolic heart failure ICD Code: I50.21 - Acute systolic (congestive) heart failure (10) Prosthetic valve endocarditis ICD Code: T82.6XXA - Infection and inflammatory reaction due to cardiac valve prosthesis, initial encounter Status: Acute (11) DUONG (acute kidney injury) ICD Code: N17.9 - Acute kidney failure, unspecified Status: Resolved (12) Protein calorie malnutrition ICD Code: E46 - Unspecified protein-calorie malnutrition (13) Microcytic anemia ICD Code: D50.9 - Iron deficiency anemia, unspecified (14) Hyperphosphatemia ICD Code: E83.39 - Other disorders of phosphorus metabolism (15) Hypernatremia ICD Code: E87.0 - Hyperosmolality and hypernatremia (16) IV drug abuse ICD Code: F19.10 - Other psychoactive substance abuse, uncomplicated Status: Acute (17) Headache ICD Code: R51 - Headache (18) Abdominal pain ICD Code: R10.9 - Unspecified abdominal pain Assessment and Plan (1) Severe sepsis Multiple splenic infarcts MSSA meningitis 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 Seen by ID also if persistent shoulder pain will get MRI. Will consult OT Also will consult palliative care for management of pain meds as patient requesting for more pain meds. ICD Code: A41.9 - Sepsis, unspecified organism; R65.20 - Severe sepsis without septic shock Status: Acute Plan: Sepsis present on admission, the patient presented with leukocytosis and tachycardia as well as after mental status. Initially admitted to the intensive care unit, intubated and cared for by the intensivists. Sepsis found to be secondary to meningitis. Continue IV antibiotics as per infectious disease recommendations. The patient is currently on IV ampicillin, oxacillin, gentamicin and rifampin - continue. Unless more positive blood cx anticipate 6 week from 1st neg (03/01) followed by indefinite oral abx suppression tx. IV abx stop date tentatively. Gentamycin trough 2.0 (2) MSSA meningitis Status: Acute Plan: As above. 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 (4) SVT (supraventricular tachycardia) ICD Code: I47.1 - Supraventricular tachycardia Status: Resolved Plan: SVT now resolved. Continue metoprolol. Echocardiogram revealed an ejection fraction showed 25-30%. PAP 34 mmHg Initially treated with vasopressors which the patient is now off. The patient started on Lasix 20 minute grams by mouth daily. Continue. (5) Postextubation stridor ICD Code: J95.89 - Other postprocedural complications and disorders of respiratory system, not elsewhere classified Status: Resolved Plan: The patient initially extubated on 03/11/17. The patient was administered racemic epinephrine as needed for stridor or Continue albuterol/ipratropium inhaled treatments every 6 hours with every 2 hours as needed for albuterol therapy. Status post today treatment of dexamethasone IV every 8 hours. (6) Acute hypoxemic respiratory failure ICD Code: J96.01 - Acute respiratory failure with hypoxia Status: Resolved Plan: Continue supplemental oxygen to keep oxygen more than 92%. Status post intubation and extubation. Continue DuoNeb treatments. (7) CVA (cerebral vascular accident) ICD Code: I63.9 - Cerebral infarction, unspecified Plan: CT head negative, MRI small acute and subacute cortical infarct of the left parietal lobe. The patient was seen and evaluated by neurology. The patient is on a scheduled methadone 10 mg twice (8) Tricuspid regurgitation ICD Code: I07.1 - Rheumatic tricuspid insufficiency Status: Acute Plan: As seen on echo described above. Continue oral Lasix. (9) Acute systolic heart failure ICD Code: I50.21 - Acute systolic (congestive) heart failure Plan: Continue Lasix orally. continue Lasix 40 mg po daily. (10) Prosthetic valve endocarditis ICD Code: T82.6XXA - Infection and inflammatory reaction due to cardiac valve prosthesis, initial encounter Status: Acute Plan: The patient has history of IV drug abuse. Continue antibiotics as per ID recommendations. Tentative a stop date is 04/12 (11) DUONG (acute kidney injury) ICD Code: N17.9 - Acute kidney failure, unspecified Status: Resolved Plan: Now resolved. Continue to monitor BMP (12) Protein calorie malnutrition ICD Code: E46 - Unspecified protein-calorie malnutrition Plan: Secondary to long-standing IV drug abuse and endocarditis. (13) Microcytic anemia ICD Code: D50.9 - Iron deficiency anemia, unspecified Plan: Hemoglobin seems to be stable at 8.6. I will check iron studies and stool Hemoccult for blood. Patient had iron studies previously concordant with iron deficiency anemia. I will start the patient on oral iron sulfate. (14) Hyperphosphatemia ICD Code: E83.39 - Other disorders of phosphorus metabolism Plan: Now resolved. Continue to monitor levels. (15) Hypernatremia ICD Code: E87.0 - Hyperosmolality and hypernatremia Plan: Likely secondary to dehydration. Sodium now within normal range. Continue to monitor BMP. (16) IV drug abuse ICD Code: F19.10 - Other psychoactive substance abuse, uncomplicated Status: Acute Plan: Advised cessation. Currently on methadone. (17) Headache ICD Code: R51 - Headache Plan: Headache is bifrontal, patient is afebrile. Continue Acetaminophen 1000 mg po Q 6 hrs prn headache. (18) Abdominal pain ICD Code: R10.9 - Unspecified abdominal pain Plan: check CT abdomen and pelvis. Check stool for C diff PCR. (19) Diarrhea, improving Plan: C diff. is negative Continue probiotic. Add Imodium (20) Anasarca. Continue lasix po. Monitor UPO and kidney function closely. Assessment and Plan GI prophylaxis: Continue famotidine. DVT prophylaxis: SCDs, ambulation. DC plan: needs inpatient treatment. DC when cleared by ID specialist. Patient has left shoulder pain poss plan for MRI if pain persists , ID will decide. Also palliative care consulted as patient is asking for more pain meds constantly, doty management per palliative care, transition to PO and taper down as tolerated Problem Qualifiers (1) CVA (cerebral vascular accident): Qualified Codes: I63.9 - Cerebral infarction, unspecified (2) Protein calorie malnutrition: Qualified Codes: E44.0 - Moderate protein-calorie malnutrition Anna Henderson MD Mar 30, 2017 11:21
[2017-03-30] MEDS: GENTAMICIN/SOD CHL 80 MG/100 ML IV SCH (19:04)
[2017-03-31] VITALS (7 sets, daily range): BP systolic 121–143; BP diastolic 68–83; PULSE 75–89; RESP 16–20; TEMP 97.6–99.3; O2SAT 97–99
[2017-03-31] MEDS: AMPICILLIN INJ 2,000 MG in SODIUM CHLORIDE 0.9% INJ 100 ML IV SCH ×6 (00:15→21:12)
[2017-03-31] MEDS: MORPHINE SULFATE 4 MG/ML INJ IV PRN ×7 (00:56→22:17)
[2017-03-31] MEDS: HEPARIN SODIUM - SQ 10,000 UNITS/ML VIAL SQ SCH ×3 (01:01→17:06)
[2017-03-31] MEDS: OXACILLIN INJ 2 GM in SODIUM CHLORIDE 0.9% INJ 100 ML IV SCH ×6 (01:01→21:12)
[2017-03-31] MEDS: CHLORHEXIDINE GLUCONATE 2 % 1 PACK (2 CLOTHS) TOP SCH (04:00)
[2017-03-31] MEDS: DOCUSATE SODIUM 50 MG/SENNA 8.6 MG TAB PO SCH ×2 (07:58→21:00)
[2017-03-31] MEDS: POTASSIUM CHLORIDE 20 MEQ CONTROLLED RELEASE TAB PO SCH (08:22)
[2017-03-31] MEDS: METHADONE HCL 10 MG/10 ML ORAL SOLUTION PO SCH ×2 (08:22→21:09)
[2017-03-31] MEDS: SODIUM CHLORIDE 0.9% FLUSH 10 ML FLUSH IV FLUSH SCH ×2 (08:22→21:10)
[2017-03-31] MEDS: FAMOTIDINE 20 MG TAB PO SCH ×2 (08:22→21:10)
[2017-03-31] MEDS: FUROSEMIDE 20 MG TAB PO SCH (08:23)
[2017-03-31] MEDS: RIFAMPIN 150 MG CAP PO SCH ×2 (08:23→21:10)
[2017-03-31] MEDS: ARTIFICIAL TEARS OPTH SOLN 15 ML BTL EACH EYE SCH ×3 (08:25→17:08)
[2017-03-31] MEDS ORDERED: PHARMACY ORDERED LAB ONE (11:45)
--- NOTE | 2017-03-31 11:50 | HHI.PR ---
Subjective Remarks Follow-up sepsis 03/31/17-patient seen and examined, she was up and ambulated and denies any acute event overnight. Currently afebrile Objective Vitals Vital Signs Date Time Temp Pulse Resp B/P (MAP) Pulse Ox O2 Delivery O2 Flow Rate FiO2 03/31/17 08:00 98.6 82 16 121/68 (85) 97 03/31/17 04:00 98.0 75 19 127/75 (92) 99 03/31/17 00:00 97.6 78 20 143/81 (101) 99 03/30/17 20:00 81 03/30/17 20:00 98.3 84 17 126/86 (99) 97 03/30/17 19:00 Room Air 03/30/17 17:16 74 03/30/17 17:16 100 Room Air 03/30/17 16:00 98.1 74 16 121/77 (92) 100 03/30/17 12:00 98.0 79 16 107/69 (82) 97 I/O 03/30/17 03/30/17 03/30/17 03/31/17 03/31/17 03/31/17 07:00 15:00 23:00 07:00 15:00 23:00 Intake Total 1640 ml 1880 ml 1840 ml Balance 1640 ml 1880 ml 1840 ml Intake Oral 580 ml 1680 ml 880 ml IV Total 1060 ml 200 ml 960 ml # Voids 6 6 6 # Bowel Movements 0 1 0 Result Diagram: 03/30/17 0535 Imaging Last Impressions Abdomen CT 03/16/17 0000 Signed Impressions: Service Date/Time: Thursday, March 16, 2017 20:26 - CONCLUSION: 1. Peripheral low attenuation lesions in the spleen most characteristic of multiple splenic infarcts. Some of these are new findings since 2016 comparison. 2. Minimal subsegmental airspace disease at the lung bases. 3. 3.4 cm right adnexal cyst. Intrauterine device present. 4. Small fat containing ventral hernias. Eliud Campoverde MD Chest X-Ray 03/13/17 0000 Signed Impressions: Service Date/Time: Monday, March 13, 2017 08:07 - CONCLUSION: Suspected mild edema/failure. Adalid Perry MD Neck CT 03/10/17 0000 Signed Impressions: Service Date/Time: Friday, March 10, 2017 11:13 - CONCLUSION: 1. Patient is intubated which limits this study. The epiglottis is otherwise normal. Secretions are present in the oropharynx and right sphenoid sinus. Alex Monahan MD Brain MRI 03/02/17 0000 Signed Impressions: Service Date/Time: Thursday, March 02, 2017 17:07 - CONCLUSION: 1. Small acute or subacute cortical infarct of the left parietal lobe. 2. Small, faint area of nonspecific flair signal abnormality in the left frontal lobe periventricular white matter, nonspecific. No associated mass effect or abnormal enhancement. 3 month followup MRI of the brain recommended. 3. Mild chronic white matter changes. Adalid Perry MD Head CT 02/26/17 0000 Signed Impressions: Service Date/Time: Sunday, February 26, 2017 19:47 - CONCLUSION: No evidence of acute infarct, hemorrhage, mass or edema. Ken Sanchez MD Objective Remarks GENERAL: NAD SKIN: Warm and dry. HEAD: Normocephalic. EYES: No scleral icterus. No injection or drainage. NECK: Supple, trachea midline. No JVD or lymphadenopathy. CARDIOVASCULAR: Regular rate and rhythm without murmurs, gallops, or rubs. RESPIRATORY: Breath sounds equal bilaterally. No accessory muscle use. GASTROINTESTINAL: Abdomen soft, non-tender, nondistended. MUSCULOSKELETAL: No cyanosis, or edema. BACK: Nontender without obvious deformity. No CVA tenderness. 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 Status: Acute (4) SVT (supraventricular tachycardia) ICD Code: I47.1 - Supraventricular tachycardia Status: Resolved (5) Postextubation stridor ICD Code: J95.89 - Other postprocedural complications and disorders of respiratory system, not elsewhere classified Status: Resolved (6) Acute hypoxemic respiratory failure ICD Code: J96.01 - Acute respiratory failure with hypoxia Status: Resolved (7) CVA (cerebral vascular accident) ICD Code: I63.9 - Cerebral infarction, unspecified (8) Tricuspid regurgitation ICD Code: I07.1 - Rheumatic tricuspid insufficiency Status: Acute (9) Acute systolic heart failure ICD Code: I50.21 - Acute systolic (congestive) heart failure (10) Prosthetic valve endocarditis ICD Code: T82.6XXA - Infection and inflammatory reaction due to cardiac valve prosthesis, initial encounter Status: Acute (11) DUONG (acute kidney injury) ICD Code: N17.9 - Acute kidney failure, unspecified Status: Resolved (12) Protein calorie malnutrition ICD Code: E46 - Unspecified protein-calorie malnutrition (13) Microcytic anemia ICD Code: D50.9 - Iron deficiency anemia, unspecified (14) Hyperphosphatemia ICD Code: E83.39 - Other disorders of phosphorus metabolism (15) Hypernatremia ICD Code: E87.0 - Hyperosmolality and hypernatremia (16) IV drug abuse ICD Code: F19.10 - Other psychoactive substance abuse, uncomplicated Status: Acute (17) Headache ICD Code: R51 - Headache (18) Abdominal pain ICD Code: R10.9 - Unspecified abdominal pain Assessment and Plan 36-year-old female with Severe sepsis-resolved Multiple splenic infarcts MSSA meningitis 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 Stop date for antibiotics 04/12/17 Supraventricular tachycardia-resolved Echocardiogram revealed an ejection fraction showed 25-30%. Continue metoprolol. Postextubation stridor Resolved, and continue with neb when necessary as well as scheduled Acute hypoxemic respiratory failure Resolved Continue DuoNeb treatments. Maintain oxygen saturation above 92% CVA (cerebral vascular accident) CT head negative, MRI small acute and subacute cortical infarct of the left parietal lobe. Continue with scheduled methadone 10 mg twice Appreciate input from neurology Tricuspid regurgitation Continue oral Lasix. Acute systolic heart failure continue Lasix 40 mg po daily. Acute kidney injury) Now resolved. Protein calorie malnutrition Secondary to long-standing IV drug abuse and endocarditis. Microcytic anemia Continue with oral iron sulfate. Hyperphosphatemia Now resolved. Continue to monitor levels. Hypernatremia Resolved. Continue to monitor BMP. IV drug abuse Advised cessation. Currently on methadone. Headache Resolved and Continue Acetaminophen 1000 mg po Q 6 hrs prn Abdominal pain Resolved Diarrhea, improving C diff. is negative Continue probiotic. Anasarca. Continue lasix po. Monitor UPO and kidney function closely. Problem Qualifiers (1) CVA (cerebral vascular accident): Qualified Codes: I63.9 - Cerebral infarction, unspecified (2) Protein calorie malnutrition: Qualified Codes: E44.0 - Moderate protein-calorie malnutrition Isak Arias MD Mar 31, 2017 11:50
[2017-03-31] MEDS: GENTAMICIN/SOD CHL 80 MG/100 ML IV SCH (13:59)
[2017-03-31] MEDS: ACETAMINOPHEN 325 MG TAB PO PRN (22:17)
[2017-03-31] MEDS: SODIUM CHLORIDE 0.9% FLUSH 10 ML FLUSH IV FLUSH PRN (22:18)
[2017-04-01] VITALS (8 sets, daily range): BP systolic 104–126; BP diastolic 63–71; PULSE 66–90; RESP 16–20; TEMP 97.7–99; O2SAT 97–100
[2017-04-01] MEDS: AMPICILLIN INJ 2,000 MG in SODIUM CHLORIDE 0.9% INJ 100 ML IV SCH ×6 (01:25→20:21)
[2017-04-01] MEDS: HEPARIN SODIUM - SQ 10,000 UNITS/ML VIAL SQ SCH ×3 (01:33→17:38)
[2017-04-01] MEDS: OXACILLIN INJ 2 GM in SODIUM CHLORIDE 0.9% INJ 100 ML IV SCH ×6 (01:33→21:23)
[2017-04-01] MEDS: MORPHINE SULFATE 4 MG/ML INJ IV PRN ×7 (01:35→21:23)
[2017-04-01] MEDS: SODIUM CHLORIDE 0.9% FLUSH 10 ML FLUSH IV FLUSH PRN ×3 (01:36→21:23)
[2017-04-01] MEDS: CHLORHEXIDINE GLUCONATE 2 % 1 PACK (2 CLOTHS) TOP SCH (03:21)
[2017-04-01] MEDS: GENTAMICIN/SOD CHL 80 MG/100 ML IV SCH (06:00)
[2017-04-01] MEDS: DOCUSATE SODIUM 50 MG/SENNA 8.6 MG TAB PO SCH ×2 (08:18→20:19)
[2017-04-01] MEDS: RIFAMPIN 150 MG CAP PO SCH ×2 (08:20→20:18)
[2017-04-01] MEDS: FAMOTIDINE 20 MG TAB PO SCH ×2 (08:20→20:18)
[2017-04-01] MEDS: POTASSIUM CHLORIDE 20 MEQ CONTROLLED RELEASE TAB PO SCH (08:20)
[2017-04-01] MEDS: FUROSEMIDE 20 MG TAB PO SCH (08:21)
[2017-04-01] MEDS: SODIUM CHLORIDE 0.9% FLUSH 10 ML FLUSH IV FLUSH SCH ×2 (08:21→20:20)
[2017-04-01] MEDS: METHADONE HCL 10 MG/10 ML ORAL SOLUTION PO SCH ×2 (08:22→20:18)
[2017-04-01] MEDS: ARTIFICIAL TEARS OPTH SOLN 15 ML BTL EACH EYE SCH ×3 (08:28→17:46)
--- NOTE | 2017-04-01 10:46 | HHI.PR ---
Subjective Remarks Follow-up sepsis 03/31/17-patient seen and examined, she was up and ambulated and denies any acute event overnight. Currently afebrile 04/01/17-patient seen and examined, stable and no change. Patient appears to be a difficult stick this morning for lab work Objective Vitals Vital Signs Date Time Temp Pulse Resp B/P (MAP) Pulse Ox O2 Delivery O2 Flow Rate FiO2 04/01/17 08:00 98.2 79 18 116/63 (80) 97 04/01/17 04:00 Room Air 04/01/17 04:00 98.2 66 20 104/ 98 04/01/17 00:00 Room Air 04/01/17 00:00 97.9 77 18 109/69 (82) 98 03/31/17 20:00 Room Air 03/31/17 20:00 99.3 89 16 121/74 (90) 98 03/31/17 19:59 85 03/31/17 16:00 97.9 89 16 121/72 (88) 99 03/31/17 15:19 Room Air 2.00 21 03/31/17 12:00 98.1 77 16 129/83 (98) 99 I/O 03/31/17 03/31/17 03/31/17 04/01/17 04/01/17 04/01/17 07:00 15:00 23:00 07:00 15:00 23:00 Intake Total 1840 ml 480 ml 680 ml 400 ml Balance 1840 ml 480 ml 680 ml 400 ml Intake Oral 880 ml 480 ml 480 ml IV Total 960 ml 200 ml 400 ml # Voids 6 5 3 # Bowel Movements 0 1 Result Diagram: 03/30/17 0535 Objective Remarks GENERAL: NAD SKIN: Warm and dry. HEAD: Normocephalic. EYES: No scleral icterus. No injection or drainage. NECK: Supple, trachea midline. No JVD or lymphadenopathy. CARDIOVASCULAR: Regular rate and rhythm without murmurs, gallops, or rubs. RESPIRATORY: Breath sounds equal bilaterally. No accessory muscle use. GASTROINTESTINAL: Abdomen soft, non-tender, nondistended. MUSCULOSKELETAL: No cyanosis, or edema. BACK: Nontender without obvious deformity. No CVA tenderness. 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 Status: Acute (4) SVT (supraventricular tachycardia) ICD Code: I47.1 - Supraventricular tachycardia Status: Resolved (5) Postextubation stridor ICD Code: J95.89 - Other postprocedural complications and disorders of respiratory system, not elsewhere classified Status: Resolved (6) Acute hypoxemic respiratory failure ICD Code: J96.01 - Acute respiratory failure with hypoxia Status: Resolved (7) CVA (cerebral vascular accident) ICD Code: I63.9 - Cerebral infarction, unspecified (8) Tricuspid regurgitation ICD Code: I07.1 - Rheumatic tricuspid insufficiency Status: Acute (9) Acute systolic heart failure ICD Code: I50.21 - Acute systolic (congestive) heart failure (10) Prosthetic valve endocarditis ICD Code: T82.6XXA - Infection and inflammatory reaction due to cardiac valve prosthesis, initial encounter Status: Acute (11) DUONG (acute kidney injury) ICD Code: N17.9 - Acute kidney failure, unspecified Status: Resolved (12) Protein calorie malnutrition ICD Code: E46 - Unspecified protein-calorie malnutrition (13) Microcytic anemia ICD Code: D50.9 - Iron deficiency anemia, unspecified (14) Hyperphosphatemia ICD Code: E83.39 - Other disorders of phosphorus metabolism (15) Hypernatremia ICD Code: E87.0 - Hyperosmolality and hypernatremia (16) IV drug abuse ICD Code: F19.10 - Other psychoactive substance abuse, uncomplicated Status: Acute (17) Headache ICD Code: R51 - Headache (18) Abdominal pain ICD Code: R10.9 - Unspecified abdominal pain Assessment and Plan 36-year-old female with Severe sepsis-resolved Multiple splenic infarcts MSSA meningitis 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 Stop date for antibiotics 04/12/17 Supraventricular tachycardia-resolved Echocardiogram revealed an ejection fraction showed 25-30%. Continue metoprolol. Postextubation stridor Resolved, and continue with neb when necessary as well as scheduled Acute hypoxemic respiratory failure Resolved Continue DuoNeb treatments. Maintain oxygen saturation above 92% CVA (cerebral vascular accident) CT head negative, MRI small acute and subacute cortical infarct of the left parietal lobe. Continue with scheduled methadone 10 mg twice Appreciate input from neurology Tricuspid regurgitation Continue oral Lasix. Acute systolic heart failure continue Lasix 40 mg po daily. Acute kidney injury) Now resolved. Protein calorie malnutrition Secondary to long-standing IV drug abuse and endocarditis. Microcytic anemia Continue with oral iron sulfate. Hyperphosphatemia Now resolved. Continue to monitor levels. Hypernatremia Resolved. Continue to monitor BMP. IV drug abuse Advised cessation. Currently on methadone. Headache Resolved Abdominal pain Resolved Diarrhea, improving C diff. is negative Continue probiotic. Anasarca. Improving Continue lasix po. Problem Qualifiers (1) CVA (cerebral vascular accident): Qualified Codes: I63.9 - Cerebral infarction, unspecified (2) Protein calorie malnutrition: Qualified Codes: E44.0 - Moderate protein-calorie malnutrition Isak Arias MD Apr 01, 2017 10:46
[2017-04-02] VITALS (8 sets, daily range): BP systolic 114–126; BP diastolic 62–80; PULSE 72–83; RESP 18–20; TEMP 97.4–98.2; O2SAT 95–100
[2017-04-02] MEDS: GENTAMICIN/SOD CHL 80 MG/100 ML IV SCH ×2 (00:17→17:31)
[2017-04-02] MEDS: SODIUM CHLORIDE 0.9% FLUSH 10 ML FLUSH IV FLUSH PRN ×2 (00:20→04:36)
[2017-04-02] MEDS: MORPHINE SULFATE 4 MG/ML INJ IV PRN ×4 (00:21→11:14)
[2017-04-02] MEDS: AMPICILLIN INJ 2,000 MG in SODIUM CHLORIDE 0.9% INJ 100 ML IV SCH ×6 (00:56→20:46)
[2017-04-02] MEDS: OXACILLIN INJ 2 GM in SODIUM CHLORIDE 0.9% INJ 100 ML IV SCH ×6 (02:00→20:51)
[2017-04-02] MEDS: HEPARIN SODIUM - SQ 10,000 UNITS/ML VIAL SQ SCH ×4 (02:00→20:34)
[2017-04-02] MEDS: CHLORHEXIDINE GLUCONATE 2 % 1 PACK (2 CLOTHS) TOP SCH (03:08)
[2017-04-02] MEDS: FUROSEMIDE 20 MG TAB PO SCH (08:08)
[2017-04-02] MEDS: FAMOTIDINE 20 MG TAB PO SCH ×2 (08:09→20:32)
[2017-04-02] MEDS: DOCUSATE SODIUM 50 MG/SENNA 8.6 MG TAB PO SCH ×2 (08:09→20:32)
[2017-04-02] MEDS: RIFAMPIN 150 MG CAP PO SCH ×2 (08:09→20:32)
[2017-04-02] MEDS: ARTIFICIAL TEARS OPTH SOLN 15 ML BTL EACH EYE SCH ×3 (08:09→17:09)
[2017-04-02] MEDS: POTASSIUM CHLORIDE 20 MEQ CONTROLLED RELEASE TAB PO SCH (08:09)
[2017-04-02] MEDS: SODIUM CHLORIDE 0.9% FLUSH 10 ML FLUSH IV FLUSH SCH ×2 (08:09→20:46)
[2017-04-02] MEDS: METHADONE HCL 10 MG/10 ML ORAL SOLUTION PO SCH ×2 (09:19→20:33)
--- NOTE | 2017-04-02 11:34 | HHI.PR ---
Subjective Remarks Follow-up sepsis 03/31/17-patient seen and examined, she was up and ambulated and denies any acute event overnight. Currently afebrile 04/01/17-patient seen and examined, stable and no change. Patient appears to be a difficult stick this morning for lab work 04/02/17-patient seen and examined, patient complains of back pain otherwise stable and no other issues. Objective Vitals Vital Signs Date Time Temp Pulse Resp B/P (MAP) Pulse Ox O2 Delivery O2 Flow Rate FiO2 04/02/17 08:05 Room Air 04/02/17 08:05 72 04/02/17 08:00 97.8 76 18 126/77 (93) 98 04/02/17 04:00 98.1 80 20 114/67 (83) 98 04/02/17 00:00 97.6 75 18 121/62 (81) 98 04/01/17 20:25 Room Air 04/01/17 20:10 99.0 90 16 107/70 (82) 100 04/01/17 20:00 87 04/01/17 16:00 98.2 77 18 126/67 (86) 99 04/01/17 12:00 97.7 78 18 122/71 (88) 97 I/O 04/01/17 04/01/17 04/01/17 04/02/17 04/02/17 04/02/17 06:59 14:59 22:59 06:59 14:59 22:59 Intake Total 400 ml 480 ml 240 ml 680 ml Balance 400 ml 480 ml 240 ml 680 ml Intake Oral 480 ml 240 ml 480 ml IV Total 400 ml 200 ml # Voids 3 2 # Bowel Movements 1 Result Diagram: 03/30/17 0535 Objective Remarks GENERAL: NAD SKIN: Warm and dry. HEAD: Normocephalic. EYES: No scleral icterus. No injection or drainage. NECK: Supple, trachea midline. No JVD or lymphadenopathy. CARDIOVASCULAR: Regular rate and rhythm without murmurs, gallops, or rubs. RESPIRATORY: Breath sounds equal bilaterally. No accessory muscle use. GASTROINTESTINAL: Abdomen soft, non-tender, nondistended. MUSCULOSKELETAL: No cyanosis, or edema. BACK: Nontender without obvious deformity. No CVA tenderness. 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 Status: Acute (4) SVT (supraventricular tachycardia) ICD Code: I47.1 - Supraventricular tachycardia Status: Resolved (5) Postextubation stridor ICD Code: J95.89 - Other postprocedural complications and disorders of respiratory system, not elsewhere classified Status: Resolved (6) Acute hypoxemic respiratory failure ICD Code: J96.01 - Acute respiratory failure with hypoxia Status: Resolved (7) CVA (cerebral vascular accident) ICD Code: I63.9 - Cerebral infarction, unspecified (8) Tricuspid regurgitation ICD Code: I07.1 - Rheumatic tricuspid insufficiency Status: Acute (9) Acute systolic heart failure ICD Code: I50.21 - Acute systolic (congestive) heart failure (10) Prosthetic valve endocarditis ICD Code: T82.6XXA - Infection and inflammatory reaction due to cardiac valve prosthesis, initial encounter Status: Acute (11) DUONG (acute kidney injury) ICD Code: N17.9 - Acute kidney failure, unspecified Status: Resolved (12) Protein calorie malnutrition ICD Code: E46 - Unspecified protein-calorie malnutrition (13) Microcytic anemia ICD Code: D50.9 - Iron deficiency anemia, unspecified (14) Hyperphosphatemia ICD Code: E83.39 - Other disorders of phosphorus metabolism (15) Hypernatremia ICD Code: E87.0 - Hyperosmolality and hypernatremia (16) IV drug abuse ICD Code: F19.10 - Other psychoactive substance abuse, uncomplicated Status: Acute (17) Headache ICD Code: R51 - Headache (18) Abdominal pain ICD Code: R10.9 - Unspecified abdominal pain Assessment and Plan 36-year-old female with Severe sepsis-resolved Multiple splenic infarcts MSSA meningitis 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 Stop date for antibiotics 04/12/17 Supraventricular tachycardia-resolved Echocardiogram revealed an ejection fraction showed 25-30%. Continue metoprolol. Postextubation stridor Resolved, and continue with neb when necessary as well as scheduled Acute hypoxemic respiratory failure Resolved Continue DuoNeb treatments. Maintain oxygen saturation above 92% CVA (cerebral vascular accident) CT head negative, MRI small acute and subacute cortical infarct of the left parietal lobe. Continue with scheduled methadone 10 mg twice Appreciate input from neurology Tricuspid regurgitation Continue oral Lasix. Acute systolic heart failure continue Lasix 40 mg po daily. Acute kidney injury) Now resolved. Protein calorie malnutrition Secondary to long-standing IV drug abuse and endocarditis. Microcytic anemia Continue with oral iron sulfate. Hyperphosphatemia Now resolved. Continue to monitor levels. Hypernatremia Resolved. Continue to monitor BMP. IV drug abuse Advised cessation. Currently on methadone. Headache Resolved Abdominal pain Resolved Diarrhea, resolved C diff. is negative Continue probiotic. Anasarca. Improving Continue Lasix po. Problem Qualifiers (1) CVA (cerebral vascular accident): Qualified Codes: I63.9 - Cerebral infarction, unspecified (2) Protein calorie malnutrition: Qualified Codes: E44.0 - Moderate protein-calorie malnutrition Isak Arias MD Apr 02, 2017 11:34
[2017-04-02] MEDS ORDERED: MORPHINE SULFATE ORAL SOLN 10 MG/0.5 ML SYRINGE PO PRN (12:00)
--- NOTE | 2017-04-02 12:03 | HHI.HCPN ---
Reason for visit a. To assist with evaluation and management of symptoms including: pain. b. To assist medical decision maker(s) with: better understanding of current medical conditions; weighing benefits/burdens of medical treatment options; making medical treatment decisions. . Subjective/Interval History Patient seen and examined in room. She is sitting in chair watching TV. She is awake and alert. She tells me she has been walking in halls. She reports intermittent achy pain in left shoulder, has been working with physical therapy with increasing range of motion and mobility. She also has some discomfort, tightness in her chest area, she feels like she can't take a deep breath as well. Currently rates for pain 3 out of 10, reports some relief with PRN morphine. Remains on Methadone 25mg PO every 12 hours. Reviewed plan for treatment including IV ABX through 04/12/17 and lifetime oral ABX. She verbalizes understanding, she is anxious to go home. I advised her that we need to discontinue her IV morphine and transition her to oral medication in preparation for discharge. She is agreeable. She reports that she used oral morphine in the past and that it worked well for her pain. Given current dosing of IV morphine will transition to liquid morphine 5 to 10 mg Q3 hours PRN breakthrough pain. Advised that I will continue current dose of methadone and continue to use this as her long-acting pain medication she agrees. She reports in the past she was on long-acting morphine, advised given that her pain is overall well-controlled with current dose of morphine I do not want to change this at this time. We discussed discharge planning and the fact that she was previously on hospice services, patient indicates that she would like to go back on hospice upon discharge. We talked about her overall goals in that she wants to continue hospice services for the support they offer, pain medication and that she knows that she is terminal. However the patient indicates that she desires FULL CODE , would want mechanical ventilation and resuscitation again if needed. She indicates that she was recently on the ventilator and it saved her and gave her more quality time. She desires continued aggressive care and goals do not seem hospice appropriate at this time. She verbalizes wanting to spend as much time with her 7-year-old son as she can. I suspect given her age it will be hard for her to have completely comfort oriented goals until she is unable to make her own medical decisions. Afebrile. Vital signs stable. No new labs. Patient indicates that she feels like she's "getting pneumonia again." She feels like no one is listening to her. I advised her that she remains on multiple antibiotics and that her chest discomfort may be secondary to underlying endocarditis. After conversation she feels better knowing that her treatment plan may not change even if she did have a chest x-ray. Lungs are clear. Attempted to reassure her that she is being monitored, remains afebrile and no obvious signs of pneumonia (fever, cough, elevated WBC, etc). Will discuss possible updated CXR with medical team. She tells me stories about her 7 year old playing baseball and wishing she could see his games. Questions answered. . Family/friend interactions No family at bedside. . Advance Directives Living Will: Never completed Health Care Surrogate: Never completed Durable Power of [employer]per[employer] Installer: Never completed Advance Directive Specifics Health Care Surrogate(s): No known written advanced directives, family is going to try to find [facility] paperwork they think pt previously completed. Patient a single. Children are juvenile. If no written advanced directives, according to [place] statutes health care proxy decision-making falls to a parent. . Significant change in goals: FULL CODE. Goals remain aggressive. . Objective Vital Signs Date Time Temp Pulse Resp B/P (MAP) Pulse Ox O2 Delivery O2 Flow Rate FiO2 04/02/17 08:05 Room Air 04/02/17 08:05 72 04/02/17 08:00 97.8 76 18 126/77 (93) 98 04/02/17 04:00 98.1 80 20 114/67 (83) 98 04/02/17 00:00 97.6 75 18 121/62 (81) 98 04/01/17 20:25 Room Air 04/01/17 20:10 99.0 90 16 107/70 (82) 100 04/01/17 20:00 87 04/01/17 16:00 98.2 77 18 126/67 (86) 99 04/01/17 12:00 97.7 78 18 122/71 (88) 97 Intake & Output 04/02/17 04/02/17 07:00 19:00 Intake Total 920 ml Balance 920 ml Intake Oral 720 ml IV Total 200 ml # Voids 2 Physical Exam CONSTITUTIONAL/GENERAL: This is an adequately nourished patient, sitting in chair. TUBES/LINES/DRAINS: PIV SKIN: afebrile. CARDIOVASCULAR: regular rate and rhythm, + murmur. RESPIRATORY/CHEST: decreased breath sounds bilaterally. Clear. GASTROINTESTINAL: Abdomen soft, non-distended, nontender. Bowel sounds active. GENITOURINARY: Without palpable bladder distension. MUSCULOSKELETAL: Left shoulder pain improving ROM. NEUROLOGICAL: Awake and alert. Cognitively sharp. Follows commands. PSYCHIATRIC: calm. . Diagnostic Tests Laboratory Laboratory Tests Test 03/31/17 13:01 Gentamicin Level Trough 0.6 MCG/ML (0.0-2.0) Result Diagram: 03/30/17 0535 Microbiology Microbiology Date/Time Source Procedure Growth Status 03/05/17 16:55 Blood Peripheral Aerobic Blood Culture - Final NO GROWTH IN 5 DAYS Complete 03/05/17 16:55 Blood Peripheral Anaerobic Blood Culture - Final NO GROWTH IN 5 DAYS Complete 02/26/17 22:00 Cerebral Spinal Fluid Lumbar Puncture Fungal Smear - Final NO FUNGAL ELEMENTS SEEN. Complete 02/26/17 22:00 Cerebral Spinal Fluid Lumbar Puncture Fungal Culture - Final NO GROWTH IN 4 WEEKS Complete 03/08/17 22:00 Sputum Endotracheal Gram Stain - Final Complete 03/08/17 22:00 Sputum Endotracheal Sputum Culture - Final NO GROWTH IN 48 HOURS. Complete Imaging Last Impressions Abdomen CT 03/16/17 0000 Signed Impressions: Service Date/Time: Thursday, March 16, 2017 20:26 - CONCLUSION: 1. Peripheral low attenuation lesions in the spleen most characteristic of multiple splenic infarcts. Some of these are new findings since 2016 comparison. 2. Minimal subsegmental airspace disease at the lung bases. 3. 3.4 cm right adnexal cyst. Intrauterine device present. 4. Small fat containing ventral hernias. Eliud Campoverde MD Chest X-Ray 03/13/17 0000 Signed Impressions: Service Date/Time: Monday, March 13, 2017 08:07 - CONCLUSION: Suspected mild edema/failure. Adalid Perry MD Neck CT 03/10/17 0000 Signed Impressions: Service Date/Time: Friday, March 10, 2017 11:13 - CONCLUSION: 1. Patient is intubated which limits this study. The epiglottis is otherwise normal. Secretions are present in the oropharynx and right sphenoid sinus. Alex Monahan MD Brain MRI 03/02/17 0000 Signed Impressions: Service Date/Time: Thursday, March 02, 2017 17:07 - CONCLUSION: 1. Small acute or subacute cortical infarct of the left parietal lobe. 2. Small, faint area of nonspecific flair signal abnormality in the left frontal lobe periventricular white matter, nonspecific. No associated mass effect or abnormal enhancement. 3 month followup MRI of the brain recommended. 3. Mild chronic white matter changes. Adalid Perry MD Head CT 02/26/17 0000 Signed Impressions: Service Date/Time: Sunday, February 26, 2017 19:47 - CONCLUSION: No evidence of acute infarct, hemorrhage, mass or edema. Ken Sanchez MD Procedures * 02/26/17 - left subclavian central placement. * 02/26/17 - lumbar puncture * 02/26/17 - Intubated. . Assessment and Plan Disease Oriented Problem List: (1) Bacterial endocarditis (2) Protein-calorie malnutrition, severe (3) Meningitis (4) Polysubstance abuse (5) Acute kidney injury Symptom Scale: (1) Pain 0-10 Scale: 3 (2) Dyspnea 0-10 Scale: 2 (3) Agitation 0-10 Scale: 0 Pertinent Non-Medical Issues Psychosocial: single. 2 juvenile children. Supported by mother, stepfather and boyfriend. Spiritual: Unknown. Legal: patient is incapacitated. No written advanced directives. Patient a single. Children are juvenile. According to [place] statutes health care proxy decision-making falls to a parent. Ethical issues impacting care: No known concerns at this time. . Important Contacts * Fany Nielsen, mother: [phone] * Karsten Nielsen, stepfather: [phone] . Prognosis Prognosis poor. Code Status: Full Code Plan * Decision Maker: Patient is currently capacitated to make her own decisions. Patient is not . According to [place] statutes health care proxy decision-making falls to the patient's mother. * FULL CODE. * Goals of care are aggressive. * SYMPTOMS: Pain: rates pain 3 out of 10 new pain left shoulder, improving and chest tightness. On Methadone 25 mg PO every 12 hours ATC. DC IV Morphine. Start 5-10mg PO every 3 hours PRN BTP. Dyspnea- increased. Lungs. clear. May consider updated CXR. . * Palliative care will continue to follow throughout hospital course to assist with symptom management and clarification of goals as needed. . Attestation To help prompt me to consider important information that might be impacting today's encounter and assessment, information from prior notes written by myself or my colleagues may have been "brought forward" into today's note. My signature on this note, however, is an attestation that I personally performed the exam, history, and/or decision-making noted today, and, unless otherwise indicated, the interactions with patient, family, and staff as well as the review of records all occurred today. I also attest that the listed assessment and stated plan reflect my best clinical judgment today based on the combination of historical information, prior notes, and today's exam/ interactions. When time spent is documented, it refers only to time spent today by the signer, or if indicated, combined time spent today by collaborating physician/nurse practitioner. Shanice García Apr 02, 2017 12:03
[2017-04-02] MEDS: MORPHINE SULFATE ORAL SOLN 10 MG/0.5 ML SYRINGE PO PRN ×3 (14:39→20:43)
[2017-04-02] MEDS: ACETAMINOPHEN 325 MG TAB PO PRN (15:49)
[2017-04-03] VITALS: BP 117/70; PULSE 83; RESP 18; TEMP 97.5; O2SAT 98
[2017-04-03] MEDS: AMPICILLIN INJ 2,000 MG in SODIUM CHLORIDE 0.9% INJ 100 ML IV SCH ×6 (01:00→21:39)
[2017-04-03] MEDS: OXACILLIN INJ 2 GM in SODIUM CHLORIDE 0.9% INJ 100 ML IV SCH ×6 (02:12→22:06)
[2017-04-03] MEDS: CHLORHEXIDINE GLUCONATE 2 % 1 PACK (2 CLOTHS) TOP SCH (03:44)
[2017-04-03] MEDS: MORPHINE SULFATE ORAL SOLN 10 MG/0.5 ML SYRINGE PO PRN ×6 (05:25→21:44)
[2017-04-03 05:28] VITALS: BP 121/80; PULSE 78; RESP 18; TEMP 98.4; O2SAT 97
[2017-04-03 08:00] VITALS: BP 114/75; PULSE 72; RESP 18; TEMP 98; O2SAT 98
[2017-04-03] MEDS: FAMOTIDINE 20 MG TAB PO SCH ×2 (08:25→21:45)
[2017-04-03] MEDS: RIFAMPIN 150 MG CAP PO SCH ×2 (08:26→21:45)
[2017-04-03] MEDS: POTASSIUM CHLORIDE 20 MEQ CONTROLLED RELEASE TAB PO SCH (08:26)
[2017-04-03] MEDS: METHADONE HCL 10 MG/10 ML ORAL SOLUTION PO SCH ×2 (08:26→21:43)
[2017-04-03] MEDS: FUROSEMIDE 20 MG TAB PO SCH (08:26)
[2017-04-03] MEDS: HEPARIN SODIUM - SQ 10,000 UNITS/ML VIAL SQ SCH ×2 (08:27→17:02)
[2017-04-03] MEDS: ARTIFICIAL TEARS OPTH SOLN 15 ML BTL EACH EYE SCH ×3 (08:27→17:02)
[2017-04-03] MEDS: DOCUSATE SODIUM 50 MG/SENNA 8.6 MG TAB PO SCH ×2 (08:27→21:00)
[2017-04-03] MEDS: SODIUM CHLORIDE 0.9% FLUSH 10 ML FLUSH IV FLUSH SCH ×2 (08:27→21:42)
--- NOTE | 2017-04-03 10:04 | HHI.PR ---
Subjective Remarks Follow-up sepsis 03/31/17-patient seen and examined, she was up and ambulated and denies any acute event overnight. Currently afebrile 04/01/17-patient seen and examined, stable and no change. Patient appears to be a difficult stick this morning for lab work 04/02/17-patient seen and examined, patient complains of back pain otherwise stable and no other issues. 04/03/17-patient seen and examined, no complaint today. Vitals stable Objective Vitals Vital Signs Date Time Temp Pulse Resp B/P (MAP) Pulse Ox O2 Delivery O2 Flow Rate FiO2 04/03/17 08:00 98.0 72 18 114/75 (88) 98 04/03/17 05:28 98.4 78 18 121/80 (94) 97 04/03/17 00:00 97.5 83 18 117/70 (86) 98 04/02/17 20:32 98.2 83 18 122/76 (91) 100 04/02/17 20:00 82 04/02/17 20:00 Room Air 04/02/17 16:00 97.8 82 18 115/63 (80) 97 04/02/17 12:00 97.4 80 18 126/80 (95) 95 I/O 04/02/17 04/02/17 04/02/17 04/03/17 04/03/17 04/03/17 07:00 15:00 23:00 07:00 15:00 23:00 Intake Total 680 ml 480 ml 2032 ml 1600 ml Balance 680 ml 480 ml 2032 ml 1600 ml Intake Oral 480 ml 480 ml 1200 ml IV Total 200 ml 2032 ml 400 ml # Voids 2 4 5 # Bowel Movements 0 1 Result Diagram: 04/03/17 0646 Objective Remarks GENERAL: NAD SKIN: Warm and dry. HEAD: Normocephalic. EYES: No scleral icterus. No injection or drainage. NECK: Supple, trachea midline. No JVD or lymphadenopathy. CARDIOVASCULAR: Regular rate and rhythm without murmurs, gallops, or rubs. RESPIRATORY: Breath sounds equal bilaterally. No accessory muscle use. GASTROINTESTINAL: Abdomen soft, non-tender, nondistended. MUSCULOSKELETAL: No cyanosis, or edema. BACK: Nontender without obvious deformity. No CVA tenderness. 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 Status: Acute (4) SVT (supraventricular tachycardia) ICD Code: I47.1 - Supraventricular tachycardia Status: Resolved (5) Postextubation stridor ICD Code: J95.89 - Other postprocedural complications and disorders of respiratory system, not elsewhere classified Status: Resolved (6) Acute hypoxemic respiratory failure ICD Code: J96.01 - Acute respiratory failure with hypoxia Status: Resolved (7) CVA (cerebral vascular accident) ICD Code: I63.9 - Cerebral infarction, unspecified (8) Tricuspid regurgitation ICD Code: I07.1 - Rheumatic tricuspid insufficiency Status: Acute (9) Acute systolic heart failure ICD Code: I50.21 - Acute systolic (congestive) heart failure (10) Prosthetic valve endocarditis ICD Code: T82.6XXA - Infection and inflammatory reaction due to cardiac valve prosthesis, initial encounter Status: Acute (11) DUONG (acute kidney injury) ICD Code: N17.9 - Acute kidney failure, unspecified Status: Resolved (12) Protein calorie malnutrition ICD Code: E46 - Unspecified protein-calorie malnutrition (13) Microcytic anemia ICD Code: D50.9 - Iron deficiency anemia, unspecified (14) Hyperphosphatemia ICD Code: E83.39 - Other disorders of phosphorus metabolism (15) Hypernatremia ICD Code: E87.0 - Hyperosmolality and hypernatremia (16) IV drug abuse ICD Code: F19.10 - Other psychoactive substance abuse, uncomplicated Status: Acute (17) Headache ICD Code: R51 - Headache (18) Abdominal pain ICD Code: R10.9 - Unspecified abdominal pain Assessment and Plan 36-year-old female with Severe sepsis-resolved Multiple splenic infarcts MSSA meningitis 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 Stop date for antibiotics 04/12/17 Continue to monitor for sign of infection Supraventricular tachycardia-resolved Echocardiogram revealed an ejection fraction showed 25-30%. Continue metoprolol. Postextubation stridor Resolved, and continue with neb when necessary as well as scheduled Acute hypoxemic respiratory failure Resolved Continue DuoNeb treatments. Maintain oxygen saturation above 92% CVA (cerebral vascular accident) CT head negative, MRI small acute and subacute cortical infarct of the left parietal lobe. Continue with scheduled methadone 10 mg twice Appreciate input from neurology Tricuspid regurgitation Continue oral Lasix. Acute systolic heart failure continue Lasix 40 mg po daily. Acute kidney injury) Now resolved. Protein calorie malnutrition Secondary to long-standing IV drug abuse and endocarditis. Microcytic anemia Continue with oral iron sulfate. Hyperphosphatemia Now resolved. Continue to monitor levels. Hypernatremia Resolved. Continue to monitor BMP. IV drug abuse Advised cessation. Currently on methadone. Headache Resolved Abdominal pain Resolved Diarrhea, resolved C diff. is negative Continue probiotic. Anasarca. Improved Continue Lasix po. Problem Qualifiers (1) CVA (cerebral vascular accident): Qualified Codes: I63.9 - Cerebral infarction, unspecified (2) Protein calorie malnutrition: Qualified Codes: E44.0 - Moderate protein-calorie malnutrition Isak Arias MD Apr 03, 2017 10:03
[2017-04-03 11:36] VITALS: PULSE 75
[2017-04-03] MEDS: GENTAMICIN/SOD CHL 80 MG/100 ML IV SCH (11:51)
[2017-04-03 16:00] VITALS: BP 106/65; PULSE 100; RESP 18; TEMP 98.6; O2SAT 99
[2017-04-03 20:00] VITALS: BP 119/68; PULSE 78; PULSE 85; RESP 18; TEMP 99.5; O2SAT 98
[2017-04-04] VITALS (7 sets, daily range): BP systolic 104–127; BP diastolic 69–88; PULSE 73–80; RESP 16–18; TEMP 98.1–98.4; O2SAT 96–100
[2017-04-04] MEDS: AMPICILLIN INJ 2,000 MG in SODIUM CHLORIDE 0.9% INJ 100 ML IV SCH ×6 (01:48→22:04)
[2017-04-04] MEDS: HEPARIN SODIUM - SQ 10,000 UNITS/ML VIAL SQ SCH ×3 (02:00→17:22)
[2017-04-04] MEDS: MORPHINE SULFATE ORAL SOLN 10 MG/0.5 ML SYRINGE PO PRN ×7 (02:02→22:09)
[2017-04-04] MEDS: OXACILLIN INJ 2 GM in SODIUM CHLORIDE 0.9% INJ 100 ML IV SCH ×6 (02:04→23:09)
[2017-04-04] MEDS: CHLORHEXIDINE GLUCONATE 2 % 1 PACK (2 CLOTHS) TOP SCH (03:08)
[2017-04-04] MEDS: GENTAMICIN/SOD CHL 80 MG/100 ML IV SCH ×2 (05:40→23:47)
[2017-04-04] MEDS: SODIUM CHLORIDE 0.9% FLUSH 10 ML FLUSH IV FLUSH SCH ×2 (08:05→22:02)
[2017-04-04] MEDS: ARTIFICIAL TEARS OPTH SOLN 15 ML BTL EACH EYE SCH ×3 (08:41→17:22)
[2017-04-04] MEDS: FAMOTIDINE 20 MG TAB PO SCH ×2 (08:41→21:00)
[2017-04-04] MEDS: POTASSIUM CHLORIDE 20 MEQ CONTROLLED RELEASE TAB PO SCH (08:41)
[2017-04-04] MEDS: RIFAMPIN 150 MG CAP PO SCH ×2 (08:41→22:01)
[2017-04-04] MEDS: DOCUSATE SODIUM 50 MG/SENNA 8.6 MG TAB PO SCH ×2 (08:41→21:00)
[2017-04-04] MEDS: FUROSEMIDE 20 MG TAB PO SCH (08:42)
[2017-04-04] MEDS: METHADONE HCL 10 MG/10 ML ORAL SOLUTION PO SCH ×2 (08:43→21:59)
--- NOTE | 2017-04-04 10:14 | HHI.PR ---
Subjective Remarks Follow-up sepsis 03/31/17-patient seen and examined, she was up and ambulated and denies any acute event overnight. Currently afebrile 04/01/17-patient seen and examined, stable and no change. Patient appears to be a difficult stick this morning for lab work 04/02/17-patient seen and examined, patient complains of back pain otherwise stable and no other issues. 04/03/17-patient seen and examined, no complaint today. Vitals stable 04/04/17-patient seen and examined complains of some numbness to left foot and states he doesn't feel the top of her foot otherwise no other issues. Objective Vitals Vital Signs Date Time Temp Pulse Resp B/P (MAP) Pulse Ox O2 Delivery O2 Flow Rate FiO2 04/04/17 08:00 Room Air 04/04/17 04:00 98.3 79 16 104/70 (81) 96 04/04/17 00:00 98.4 79 16 104/70 (81) 96 04/03/17 20:00 Room Air 04/03/17 20:00 78 04/03/17 20:00 99.5 85 18 119/68 (85) 98 04/03/17 16:00 98.6 100 18 106/65 (79) 99 04/03/17 11:36 75 I/O 04/03/17 04/03/17 04/03/17 04/04/17 04/04/17 04/04/17 07:00 15:00 23:00 07:00 15:00 23:00 Intake Total 1600 ml 1160 ml 1200 ml 100 ml Balance 1600 ml 1160 ml 1200 ml 100 ml Intake Oral 1200 ml 960 ml IV Total 400 ml 200 ml 1200 ml 100 ml # Voids 5 3 3 # Bowel Movements 1 1 Result Diagram: 04/03/17 0646 Objective Remarks GENERAL: NAD SKIN: Warm and dry. HEAD: Normocephalic. EYES: No scleral icterus. No injection or drainage. NECK: Supple, trachea midline. No JVD or lymphadenopathy. CARDIOVASCULAR: Regular rate and rhythm without murmurs, gallops, or rubs. RESPIRATORY: Breath sounds equal bilaterally. No accessory muscle use. GASTROINTESTINAL: Abdomen soft, non-tender, nondistended. MUSCULOSKELETAL: No cyanosis, or edema. BACK: Nontender without obvious deformity. No CVA tenderness. 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 Status: Acute (4) SVT (supraventricular tachycardia) ICD Code: I47.1 - Supraventricular tachycardia Status: Resolved (5) Postextubation stridor ICD Code: J95.89 - Other postprocedural complications and disorders of respiratory system, not elsewhere classified Status: Resolved (6) Acute hypoxemic respiratory failure ICD Code: J96.01 - Acute respiratory failure with hypoxia Status: Resolved (7) CVA (cerebral vascular accident) ICD Code: I63.9 - Cerebral infarction, unspecified (8) Tricuspid regurgitation ICD Code: I07.1 - Rheumatic tricuspid insufficiency Status: Acute (9) Acute systolic heart failure ICD Code: I50.21 - Acute systolic (congestive) heart failure (10) Prosthetic valve endocarditis ICD Code: T82.6XXA - Infection and inflammatory reaction due to cardiac valve prosthesis, initial encounter Status: Acute (11) DUONG (acute kidney injury) ICD Code: N17.9 - Acute kidney failure, unspecified Status: Resolved (12) Protein calorie malnutrition ICD Code: E46 - Unspecified protein-calorie malnutrition (13) Microcytic anemia ICD Code: D50.9 - Iron deficiency anemia, unspecified (14) Hyperphosphatemia ICD Code: E83.39 - Other disorders of phosphorus metabolism (15) Hypernatremia ICD Code: E87.0 - Hyperosmolality and hypernatremia (16) IV drug abuse ICD Code: F19.10 - Other psychoactive substance abuse, uncomplicated Status: Acute (17) Headache ICD Code: R51 - Headache (18) Abdominal pain ICD Code: R10.9 - Unspecified abdominal pain Assessment and Plan 36-year-old female with Severe sepsis-resolved Multiple splenic infarcts MSSA meningitis 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 Stop date for antibiotics 04/12/17 Supraventricular tachycardia-resolved Echocardiogram revealed an ejection fraction showed 25-30%. Continue metoprolol. Postextubation stridor Resolved, and continue with neb when necessary as well as scheduled Acute hypoxemic respiratory failure Resolved Continue DuoNeb treatments. Maintain oxygen saturation above 92% CVA (cerebral vascular accident) CT head negative, MRI small acute and subacute cortical infarct of the left parietal lobe. Continue with scheduled methadone 10 mg twice Appreciate input from neurology who signed off Continue with physical therapy Tricuspid regurgitation Continue oral Lasix. Acute systolic heart failure continue Lasix 40 mg po daily. Acute kidney injury) Now resolved. Protein calorie malnutrition Secondary to long-standing IV drug abuse and endocarditis. Microcytic anemia Continue with oral iron sulfate. Hyperphosphatemia Now resolved. Continue to monitor levels. Hypernatremia Resolved. Continue to monitor BMP. IV drug abuse Advised cessation. Currently on methadone. Headache Resolved Abdominal pain Resolved Diarrhea, resolved C diff. is negative Continue probiotic. Anasarca. Improved Continue Lasix po. Problem Qualifiers (1) CVA (cerebral vascular accident): Qualified Codes: I63.9 - Cerebral infarction, unspecified (2) Protein calorie malnutrition: Qualified Codes: E44.0 - Moderate protein-calorie malnutrition Isak Arias MD Apr 04, 2017 10:14
[2017-04-04 13:34] LABS: AUTOMATED NEUTROPHIL # 4.9 TH/MM3 (1.8-7.7); BASOPHIL # 0.1 TH/MM3 (0-0.2); BASOPHIL % 1.1 % (0.0-2.0); EOSINOPHIL # 0.2 TH/MM3 (0-0.4); EOSINOPHIL % 3.2 % (0.0-4.0); HEMATOCRIT 27.3 % (35.0-46.0); HEMO FLAGS DIFF FINAL; LYMPH % 17.2 % (9.0-44.0); LYMPHOCYTE # 1.2 TH/MM3 (1.0-4.8); MEAN CELL VOLUME 75.8 FL (80.0-100.0); MEAN CORPUSCULAR HEMOGLOBIN 24.7 PG (27.0-34.0); MEAN CORPUSCULAR HGB CONC 32.5 % (32.0-36.0); MONO % 8.4 % (0.0-8.0); NEUT % 70.1 % (16.0-70.0); PLATELET COUNT 295 TH/MM3 (150-450); RED BLOOD COUNT 3.59 MIL/MM3 (4.00-5.30); RED CELL DISTRIBUTION WIDTH 19.1 % (11.6-17.2); WHITE BLOOD COUNT 6.9 TH/MM3 (4.0-11.0)
[2017-04-04 13:49] LABS: INDIRECT BILIRUBIN 0.1 MG/DL (0.0-0.8); TOTAL BILIRUBIN ADULT 0.2 MG/DL (0.2-1.0)
[2017-04-04] MEDS: ACETAMINOPHEN 325 MG TAB PO PRN ×2 (16:16→23:49)
[2017-04-05] VITALS (7 sets, daily range): BP systolic 99–131; BP diastolic 62–78; PULSE 67–76; RESP 16; TEMP 97.5–98.4; O2SAT 97–100
[2017-04-05] MEDS: MORPHINE SULFATE ORAL SOLN 10 MG/0.5 ML SYRINGE PO PRN ×7 (01:29→21:57)
[2017-04-05] MEDS: AMPICILLIN INJ 2,000 MG in SODIUM CHLORIDE 0.9% INJ 100 ML IV SCH ×6 (01:31→21:59)
[2017-04-05] MEDS: HEPARIN SODIUM - SQ 10,000 UNITS/ML VIAL SQ SCH ×3 (01:50→18:00)
[2017-04-05] MEDS: OXACILLIN INJ 2 GM in SODIUM CHLORIDE 0.9% INJ 100 ML IV SCH ×7 (01:50→22:31)
[2017-04-05] MEDS: CHLORHEXIDINE GLUCONATE 2 % 1 PACK (2 CLOTHS) TOP SCH (04:00)
[2017-04-05] MEDS: ARTIFICIAL TEARS OPTH SOLN 15 ML BTL EACH EYE SCH ×3 (07:51→18:00)
[2017-04-05] MEDS: FAMOTIDINE 20 MG TAB PO SCH ×2 (07:52→21:00)
[2017-04-05] MEDS: DOCUSATE SODIUM 50 MG/SENNA 8.6 MG TAB PO SCH ×2 (07:52→21:00)
[2017-04-05] MEDS: RIFAMPIN 150 MG CAP PO SCH ×2 (07:52→21:56)
[2017-04-05] MEDS: POTASSIUM CHLORIDE 20 MEQ CONTROLLED RELEASE TAB PO SCH (07:53)
[2017-04-05] MEDS: METHADONE HCL 10 MG/10 ML ORAL SOLUTION PO SCH ×2 (07:53→21:57)
[2017-04-05] MEDS: FUROSEMIDE 20 MG TAB PO SCH (07:53)
[2017-04-05] MEDS: SODIUM CHLORIDE 0.9% FLUSH 10 ML FLUSH IV FLUSH SCH ×2 (07:53→21:58)
--- NOTE | 2017-04-05 10:10 | HHI.PR ---
Subjective Remarks Follow-up sepsis 03/31/17-patient seen and examined, she was up and ambulated and denies any acute event overnight. Currently afebrile 04/01/17-patient seen and examined, stable and no change. Patient appears to be a difficult stick this morning for lab work 04/02/17-patient seen and examined, patient complains of back pain otherwise stable and no other issues. 04/03/17-patient seen and examined, no complaint today. Vitals stable 04/04/17-patient seen and examined complains of some numbness to left foot and states he doesn't feel the top of her foot otherwise no other issues. 04/05/17-patient seen and examined, stable and afebrile. Requesting if she can be taken off fluid restriction Objective Vitals Vital Signs Date Time Temp Pulse Resp B/P (MAP) Pulse Ox O2 Delivery O2 Flow Rate FiO2 04/05/17 09:00 97.5 73 16 109/76 (87) 97 04/05/17 08:00 Room Air 04/05/17 06:20 98.4 67 16 113/73 (86) 98 04/05/17 00:17 98.3 71 16 99/62 (74) 98 04/04/17 22:00 98.4 73 16 122/88 (99) 100 04/04/17 20:00 Room Air 04/04/17 20:00 77 04/04/17 16:00 98.4 80 18 104/69 (81) 97 04/04/17 16:00 Room Air 04/04/17 12:00 Room Air 04/04/17 12:00 98.1 79 18 127/84 (98) 99 I/O 04/04/17 04/04/17 04/04/17 04/05/17 04/05/17 04/05/17 07:00 15:00 23:00 07:00 15:00 23:00 Intake Total 1200 ml 400 ml 1260 ml 1320 ml 100 ml Output Total 0 ml Balance 1200 ml 400 ml 1260 ml 1320 ml 100 ml Intake Oral 960 ml 720 ml IV Total 1200 ml 400 ml 300 ml 600 ml 100 ml Stool Total 0 ml # Voids 3 3 4 # Bowel Movements 1 Result Diagram: 04/04/17 1250 04/03/17 0646 Objective Remarks GENERAL: NAD SKIN: Warm and dry. HEAD: Normocephalic. EYES: No scleral icterus. No injection or drainage. NECK: Supple, trachea midline. No JVD or lymphadenopathy. CARDIOVASCULAR: Regular rate and rhythm without murmurs, gallops, or rubs. RESPIRATORY: Breath sounds equal bilaterally. No accessory muscle use. GASTROINTESTINAL: Abdomen soft, non-tender, nondistended. MUSCULOSKELETAL: No cyanosis, or edema. BACK: Nontender without obvious deformity. No CVA tenderness. 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 Status: Acute (4) SVT (supraventricular tachycardia) ICD Code: I47.1 - Supraventricular tachycardia Status: Resolved (5) Postextubation stridor ICD Code: J95.89 - Other postprocedural complications and disorders of respiratory system, not elsewhere classified Status: Resolved (6) Acute hypoxemic respiratory failure ICD Code: J96.01 - Acute respiratory failure with hypoxia Status: Resolved (7) CVA (cerebral vascular accident) ICD Code: I63.9 - Cerebral infarction, unspecified (8) Tricuspid regurgitation ICD Code: I07.1 - Rheumatic tricuspid insufficiency Status: Acute (9) Acute systolic heart failure ICD Code: I50.21 - Acute systolic (congestive) heart failure (10) Prosthetic valve endocarditis ICD Code: T82.6XXA - Infection and inflammatory reaction due to cardiac valve prosthesis, initial encounter Status: Acute (11) DUONG (acute kidney injury) ICD Code: N17.9 - Acute kidney failure, unspecified Status: Resolved (12) Protein calorie malnutrition ICD Code: E46 - Unspecified protein-calorie malnutrition (13) Microcytic anemia ICD Code: D50.9 - Iron deficiency anemia, unspecified (14) Hyperphosphatemia ICD Code: E83.39 - Other disorders of phosphorus metabolism (15) Hypernatremia ICD Code: E87.0 - Hyperosmolality and hypernatremia (16) IV drug abuse ICD Code: F19.10 - Other psychoactive substance abuse, uncomplicated Status: Acute (17) Headache ICD Code: R51 - Headache (18) Abdominal pain ICD Code: R10.9 - Unspecified abdominal pain Assessment and Plan 36-year-old female with Severe sepsis-resolved Multiple splenic infarcts MSSA meningitis 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 Stop date for antibiotics 04/12/17 Continue current treatment Supraventricular tachycardia-resolved Echocardiogram revealed an ejection fraction showed 25-30%. Continue metoprolol. Postextubation stridor Resolved, and continue with neb when necessary as well as scheduled Acute hypoxemic respiratory failure Resolved Continue DuoNeb treatments. Maintain oxygen saturation above 92% CVA (cerebral vascular accident) CT head negative, MRI small acute and subacute cortical infarct of the left parietal lobe. Continue with scheduled methadone 10 mg twice Appreciate input from neurology who signed off Continue with physical therapy Tricuspid regurgitation Continue oral Lasix. Acute systolic heart failure continue Lasix 40 mg po daily. Acute kidney injury) Now resolved. Protein calorie malnutrition Secondary to long-standing IV drug abuse and endocarditis. Microcytic anemia Continue with oral iron sulfate. Hyperphosphatemia Now resolved. Continue to monitor levels. Hypernatremia Resolved. Continue to monitor BMP. IV drug abuse Advised cessation. Currently on methadone. Headache Resolved Abdominal pain Resolved Diarrhea, resolved C diff. is negative Continue probiotic. Anasarca. Improved Continue Lasix po. Problem Qualifiers (1) CVA (cerebral vascular accident): Qualified Codes: I63.9 - Cerebral infarction, unspecified (2) Protein calorie malnutrition: Qualified Codes: E44.0 - Moderate protein-calorie malnutrition Isak Arias MD Apr 05, 2017 10:10
[2017-04-05] MEDS: ACETAMINOPHEN 325 MG TAB PO PRN (15:37)
[2017-04-05] MEDS: GENTAMICIN/SOD CHL 80 MG/100 ML IV SCH (18:40)
[2017-04-06 00:14] VITALS: BP 118/77; PULSE 87; RESP 16; TEMP 98.4; O2SAT 97
[2017-04-06] MEDS: MORPHINE SULFATE ORAL SOLN 10 MG/0.5 ML SYRINGE PO PRN ×6 (01:51→20:45)
[2017-04-06] MEDS: AMPICILLIN INJ 2,000 MG in SODIUM CHLORIDE 0.9% INJ 100 ML IV SCH ×6 (01:52→20:47)
[2017-04-06] MEDS: HEPARIN SODIUM - SQ 10,000 UNITS/ML VIAL SQ SCH ×2 (02:00→10:00)
[2017-04-06] MEDS: OXACILLIN INJ 2 GM in SODIUM CHLORIDE 0.9% INJ 100 ML IV SCH ×6 (02:35→22:17)
[2017-04-06 04:00] VITALS: BP 117/74; PULSE 80; RESP 16; TEMP 98.3; O2SAT 97
[2017-04-06] MEDS: CHLORHEXIDINE GLUCONATE 2 % 1 PACK (2 CLOTHS) TOP SCH (04:00)
[2017-04-06 08:00] VITALS: BP 125/61; PULSE 71; PULSE 74; RESP 18; TEMP 98.3; O2SAT 94
[2017-04-06] MEDS: FAMOTIDINE 20 MG TAB PO SCH ×2 (09:00→20:46)
[2017-04-06] MEDS: DOCUSATE SODIUM 50 MG/SENNA 8.6 MG TAB PO SCH ×2 (09:00→20:50)
[2017-04-06] MEDS: ARTIFICIAL TEARS OPTH SOLN 15 ML BTL EACH EYE SCH ×3 (09:00→18:00)
[2017-04-06] MEDS: METHADONE HCL 10 MG/10 ML ORAL SOLUTION PO SCH ×2 (09:55→22:15)
[2017-04-06] MEDS: RIFAMPIN 150 MG CAP PO SCH ×2 (09:56→20:43)
[2017-04-06] MEDS: POTASSIUM CHLORIDE 20 MEQ CONTROLLED RELEASE TAB PO SCH (09:56)
[2017-04-06] MEDS: FUROSEMIDE 20 MG TAB PO SCH (09:57)
[2017-04-06] MEDS: GENTAMICIN/SOD CHL 80 MG/100 ML IV SCH (10:03)
--- NOTE | 2017-04-06 10:25 | HHI.PR ---
Subjective Remarks Follow-up sepsis 03/31/17-patient seen and examined, she was up and ambulated and denies any acute event overnight. Currently afebrile 04/01/17-patient seen and examined, stable and no change. Patient appears to be a difficult stick this morning for lab work 04/02/17-patient seen and examined, patient complains of back pain otherwise stable and no other issues. 04/03/17-patient seen and examined, no complaint today. Vitals stable 04/04/17-patient seen and examined complains of some numbness to left foot and states he doesn't feel the top of her foot otherwise no other issues. 04/05/17-patient seen and examined, stable and afebrile. Requesting if she can be taken off fluid restriction 04/06/17-no acute event overnight, currently afebrile and she denies any chest pain or shortness of breath. Objective Vitals Vital Signs Date Time Temp Pulse Resp B/P (MAP) Pulse Ox O2 Delivery O2 Flow Rate FiO2 04/06/17 08:00 98.3 74 18 125/61 (82) 94 04/06/17 04:00 98.3 80 16 117/74 (88) 97 04/06/17 00:14 98.4 87 16 118/77 (91) 97 04/05/17 20:00 71 04/05/17 20:00 98.0 72 16 131/72 (91) 97 04/05/17 20:00 Room Air 04/05/17 16:00 97.7 76 16 126/73 (90) 100 04/05/17 16:00 Room Air 04/05/17 12:00 98.3 70 16 131/78 (95) 98 04/05/17 12:00 Room Air I/O 04/05/17 04/05/17 04/05/17 04/06/17 04/06/17 04/06/17 07:00 15:00 23:00 07:00 15:00 23:00 Intake Total 1320 ml 200 ml 880 ml 880 ml Output Total 0 ml 900 ml Balance 1320 ml 200 ml -20 ml 880 ml Intake Oral 720 ml 480 ml 480 ml IV Total 600 ml 200 ml 400 ml 400 ml Output Urine Total 900 ml Stool Total 0 ml # Voids 4 4 # Bowel Movements 1 0 Result Diagram: 04/04/17 1250 04/05/17 1157 Objective Remarks GENERAL: NAD SKIN: Warm and dry. HEAD: Normocephalic. EYES: No scleral icterus. No injection or drainage. NECK: Supple, trachea midline. No JVD or lymphadenopathy. CARDIOVASCULAR: Regular rate and rhythm without murmurs, gallops, or rubs. RESPIRATORY: Breath sounds equal bilaterally. No accessory muscle use. GASTROINTESTINAL: Abdomen soft, non-tender, nondistended. MUSCULOSKELETAL: No cyanosis, or edema. BACK: Nontender without obvious deformity. No CVA tenderness. 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 Status: Acute (4) SVT (supraventricular tachycardia) ICD Code: I47.1 - Supraventricular tachycardia Status: Resolved (5) Postextubation stridor ICD Code: J95.89 - Other postprocedural complications and disorders of respiratory system, not elsewhere classified Status: Resolved (6) Acute hypoxemic respiratory failure ICD Code: J96.01 - Acute respiratory failure with hypoxia Status: Resolved (7) CVA (cerebral vascular accident) ICD Code: I63.9 - Cerebral infarction, unspecified (8) Tricuspid regurgitation ICD Code: I07.1 - Rheumatic tricuspid insufficiency Status: Acute (9) Acute systolic heart failure ICD Code: I50.21 - Acute systolic (congestive) heart failure (10) Prosthetic valve endocarditis ICD Code: T82.6XXA - Infection and inflammatory reaction due to cardiac valve prosthesis, initial encounter Status: Acute (11) DUONG (acute kidney injury) ICD Code: N17.9 - Acute kidney failure, unspecified Status: Resolved (12) Protein calorie malnutrition ICD Code: E46 - Unspecified protein-calorie malnutrition (13) Microcytic anemia ICD Code: D50.9 - Iron deficiency anemia, unspecified (14) Hyperphosphatemia ICD Code: E83.39 - Other disorders of phosphorus metabolism (15) Hypernatremia ICD Code: E87.0 - Hyperosmolality and hypernatremia (16) IV drug abuse ICD Code: F19.10 - Other psychoactive substance abuse, uncomplicated Status: Acute (17) Headache ICD Code: R51 - Headache (18) Abdominal pain ICD Code: R10.9 - Unspecified abdominal pain Assessment and Plan 36-year-old female with Severe sepsis-resolved Multiple splenic infarcts MSSA meningitis 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 Stop date for antibiotics 04/12/17 Continue current treatment Supraventricular tachycardia-resolved Echocardiogram revealed an ejection fraction showed 25-30%. Continue metoprolol. Postextubation stridor Resolved, and continue with neb when necessary as well as scheduled Acute hypoxemic respiratory failure Resolved Continue DuoNeb treatments. Maintain oxygen saturation above 92% CVA (cerebral vascular accident) CT head negative, MRI small acute and subacute cortical infarct of the left parietal lobe. Continue with scheduled methadone 10 mg twice Appreciate input from neurology who signed off PT to treat and eval Tricuspid regurgitation Continue oral Lasix. Acute systolic heart failure continue Lasix 40 mg po daily. Acute kidney injury) Now resolved. Protein calorie malnutrition Secondary to long-standing IV drug abuse and endocarditis. Microcytic anemia Continue with oral iron sulfate. Monitor H&H Hyperphosphatemia Now resolved. Continue to monitor levels. Hypernatremia Resolved. Continue to monitor BMP. IV drug abuse Advised cessation. Currently on methadone. Headache Resolved Abdominal pain Resolved Diarrhea, resolved C diff. is negative Continue probiotic. Anasarca. Improved Continue Lasix po. Problem Qualifiers (1) CVA (cerebral vascular accident): Qualified Codes: I63.9 - Cerebral infarction, unspecified (2) Protein calorie malnutrition: Qualified Codes: E44.0 - Moderate protein-calorie malnutrition Isak Arias MD Apr 06, 2017 10:25
[2017-04-06 12:00] VITALS: BP 126/83; PULSE 82; RESP 18; TEMP 98.8; O2SAT 96
[2017-04-06 16:00] VITALS: BP 115/78; PULSE 87; RESP 18; TEMP 98.9; O2SAT 98
[2017-04-06 20:00] VITALS: BP 117/77; PULSE 77; PULSE 78; RESP 18; TEMP 98.2; O2SAT 100
[2017-04-06] MEDS: SODIUM CHLORIDE 0.9% FLUSH 10 ML FLUSH IV FLUSH SCH (20:46)
[2017-04-07] VITALS: BP 116/76; PULSE 80; RESP 18; TEMP 98.3; O2SAT 95
[2017-04-07] MEDS: MORPHINE SULFATE ORAL SOLN 10 MG/0.5 ML SYRINGE PO PRN ×8 (00:19→22:10)
[2017-04-07] MEDS: AMPICILLIN INJ 2,000 MG in SODIUM CHLORIDE 0.9% INJ 100 ML IV SCH ×6 (01:30→21:04)
[2017-04-07] MEDS: OXACILLIN INJ 2 GM in SODIUM CHLORIDE 0.9% INJ 100 ML IV SCH ×6 (01:49→21:50)
[2017-04-07] MEDS: HEPARIN SODIUM - SQ 10,000 UNITS/ML VIAL SQ SCH ×2 (01:52→10:00)
[2017-04-07 04:00] VITALS: BP 113/65; PULSE 74; RESP 16; TEMP 98.4; O2SAT 98
[2017-04-07] MEDS: CHLORHEXIDINE GLUCONATE 2 % 1 PACK (2 CLOTHS) TOP SCH (04:00)
[2017-04-07] MEDS ORDERED: PHARMACY ORDERED LAB ONE (05:45)
[2017-04-07] MEDS: GENTAMICIN/SOD CHL 80 MG/100 ML IV SCH (07:14)
[2017-04-07 08:00] VITALS: BP 121/72; PULSE 72; PULSE 73; RESP 18; TEMP 98.1; O2SAT 95
[2017-04-07] MEDS: METHADONE HCL 10 MG/10 ML ORAL SOLUTION PO SCH ×2 (08:30→21:05)
[2017-04-07] MEDS: FUROSEMIDE 20 MG TAB PO SCH (08:31)
[2017-04-07] MEDS: DOCUSATE SODIUM 50 MG/SENNA 8.6 MG TAB PO SCH ×2 (08:31→21:00)
[2017-04-07] MEDS: FAMOTIDINE 20 MG TAB PO SCH ×3 (08:31→21:04)
[2017-04-07] MEDS: SODIUM CHLORIDE 0.9% FLUSH 10 ML FLUSH IV FLUSH SCH ×2 (08:33→21:03)
[2017-04-07] MEDS: ARTIFICIAL TEARS OPTH SOLN 15 ML BTL EACH EYE SCH ×3 (09:00→18:00)
[2017-04-07] MEDS: RIFAMPIN 150 MG CAP PO SCH ×2 (09:27→21:04)
[2017-04-07] MEDS: POTASSIUM CHLORIDE 20 MEQ CONTROLLED RELEASE TAB PO SCH (09:29)
--- NOTE | 2017-04-07 09:39 | HHI.PR ---
Subjective Remarks Follow-up sepsis 03/31/17-patient seen and examined, she was up and ambulated and denies any acute event overnight. Currently afebrile 04/01/17-patient seen and examined, stable and no change. Patient appears to be a difficult stick this morning for lab work 04/02/17-patient seen and examined, patient complains of back pain otherwise stable and no other issues. 04/03/17-patient seen and examined, no complaint today. Vitals stable 04/04/17-patient seen and examined complains of some numbness to left foot and states he doesn't feel the top of her foot otherwise no other issues. 04/05/17-patient seen and examined, stable and afebrile. Requesting if she can be taken off fluid restriction 04/06/17-no acute event overnight, currently afebrile and she denies any chest pain or shortness of breath. 04/07/17-patient seen and she is stable, has no complaints. Afebrile. Objective Vitals Vital Signs Date Time Temp Pulse Resp B/P (MAP) Pulse Ox O2 Delivery O2 Flow Rate FiO2 04/07/17 08:00 98.1 73 18 121/72 (88) 95 04/07/17 04:00 Room Air 04/07/17 04:00 98.4 74 16 113/65 (81) 98 04/07/17 00:00 98.3 80 18 116/76 (89) 95 04/07/17 00:00 Room Air 04/06/17 20:00 78 04/06/17 20:00 Room Air 04/06/17 20:00 98.2 77 18 117/77 (90) 100 04/06/17 16:00 98.9 87 18 115/78 (90) 98 04/06/17 12:30 16 04/06/17 12:00 98.8 82 18 126/83 (97) 96 I/O 04/06/17 04/06/17 04/06/17 04/07/17 04/07/17 04/07/17 07:00 15:00 23:00 07:00 15:00 23:00 Intake Total 880 ml 480 ml 500 ml 400 ml Output Total 240 ml Balance 880 ml 480 ml 500 ml 160 ml Intake Oral 480 ml 480 ml 100 ml IV Total 400 ml 500 ml 300 ml Output Urine Total 240 ml # Voids 4 3 # Bowel Movements 0 1 Result Diagram: 04/04/17 1250 04/07/17 0706 Objective Remarks GENERAL: NAD SKIN: Warm and dry. HEAD: Normocephalic. EYES: No scleral icterus. No injection or drainage. NECK: Supple, trachea midline. No JVD or lymphadenopathy. CARDIOVASCULAR: Regular rate and rhythm without murmurs, gallops, or rubs. RESPIRATORY: Breath sounds equal bilaterally. No accessory muscle use. GASTROINTESTINAL: Abdomen soft, non-tender, nondistended. MUSCULOSKELETAL: No cyanosis, or edema. BACK: Nontender without obvious deformity. No CVA tenderness. 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 Status: Acute (4) SVT (supraventricular tachycardia) ICD Code: I47.1 - Supraventricular tachycardia Status: Resolved (5) Postextubation stridor ICD Code: J95.89 - Other postprocedural complications and disorders of respiratory system, not elsewhere classified Status: Resolved (6) Acute hypoxemic respiratory failure ICD Code: J96.01 - Acute respiratory failure with hypoxia Status: Resolved (7) CVA (cerebral vascular accident) ICD Code: I63.9 - Cerebral infarction, unspecified (8) Tricuspid regurgitation ICD Code: I07.1 - Rheumatic tricuspid insufficiency Status: Acute (9) Acute systolic heart failure ICD Code: I50.21 - Acute systolic (congestive) heart failure (10) Prosthetic valve endocarditis ICD Code: T82.6XXA - Infection and inflammatory reaction due to cardiac valve prosthesis, initial encounter Status: Acute (11) DUONG (acute kidney injury) ICD Code: N17.9 - Acute kidney failure, unspecified Status: Resolved (12) Protein calorie malnutrition ICD Code: E46 - Unspecified protein-calorie malnutrition (13) Microcytic anemia ICD Code: D50.9 - Iron deficiency anemia, unspecified (14) Hyperphosphatemia ICD Code: E83.39 - Other disorders of phosphorus metabolism (15) Hypernatremia ICD Code: E87.0 - Hyperosmolality and hypernatremia (16) IV drug abuse ICD Code: F19.10 - Other psychoactive substance abuse, uncomplicated Status: Acute (17) Headache ICD Code: R51 - Headache (18) Abdominal pain ICD Code: R10.9 - Unspecified abdominal pain Assessment and Plan 36-year-old female with Severe sepsis-resolved Multiple splenic infarcts MSSA meningitis 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 Stop date for antibiotics 04/12/17 Continue current treatment Supraventricular tachycardia-resolved Echocardiogram revealed an ejection fraction showed 25-30%. Continue metoprolol. Postextubation stridor Resolved, and continue with neb when necessary as well as scheduled Acute hypoxemic respiratory failure Resolved Continue DuoNeb treatments. Maintain oxygen saturation above 92% CVA (cerebral vascular accident) CT head negative, MRI small acute and subacute cortical infarct of the left parietal lobe. Continue with scheduled methadone 10 mg twice Appreciate input from neurology who signed off PT to treat and eval Tricuspid regurgitation Continue oral Lasix. Acute systolic heart failure continue Lasix 40 mg po daily. Acute kidney injury) Now resolved. Protein calorie malnutrition Secondary to long-standing IV drug abuse and endocarditis. Microcytic anemia Continue with oral iron sulfate. Monitor H&H Hyperphosphatemia Now resolved. Continue to monitor levels. Hypernatremia Resolved. Continue to monitor BMP. IV drug abuse Advised cessation. Currently on methadone. Headache Resolved Abdominal pain Resolved Diarrhea, resolved C diff. is negative Continue probiotic. Anasarca. Improved Continue Lasix po. Problem Qualifiers (1) CVA (cerebral vascular accident): Qualified Codes: I63.9 - Cerebral infarction, unspecified (2) Protein calorie malnutrition: Qualified Codes: E44.0 - Moderate protein-calorie malnutrition Isak Arias MD Apr 07, 2017 09:39
[2017-04-07 12:00] VITALS: BP 129/87; PULSE 77; RESP 18; TEMP 97.2; O2SAT 97
[2017-04-07 16:00] VITALS: BP 122/81; PULSE 75; RESP 18; TEMP 98.2; O2SAT 99
[2017-04-07 20:00] VITALS: BP 146/84; PULSE 74; PULSE 77; RESP 18; TEMP 97.9; O2SAT 100
[2017-04-08] VITALS (7 sets, daily range): BP systolic 112–125; BP diastolic 61–83; PULSE 18–114; RESP 18; TEMP 76–98.6; O2SAT 96–100
[2017-04-08] MEDS: GENTAMICIN/SOD CHL 80 MG/100 ML IV SCH ×2 (00:05→18:34)
[2017-04-08] MEDS: AMPICILLIN INJ 2,000 MG in SODIUM CHLORIDE 0.9% INJ 100 ML IV SCH ×6 (00:46→21:31)
[2017-04-08] MEDS: MORPHINE SULFATE ORAL SOLN 10 MG/0.5 ML SYRINGE PO PRN ×7 (01:05→22:15)
[2017-04-08] MEDS: HEPARIN SODIUM - SQ 10,000 UNITS/ML VIAL SQ SCH ×3 (02:00→17:45)
[2017-04-08] MEDS: OXACILLIN INJ 2 GM in SODIUM CHLORIDE 0.9% INJ 100 ML IV SCH ×6 (02:10→21:53)
[2017-04-08] MEDS: CHLORHEXIDINE GLUCONATE 2 % 1 PACK (2 CLOTHS) TOP SCH (04:00)
[2017-04-08] MEDS: METHADONE HCL 10 MG/10 ML ORAL SOLUTION PO SCH ×2 (08:40→21:29)
[2017-04-08] MEDS: RIFAMPIN 150 MG CAP PO SCH ×2 (08:40→21:29)
[2017-04-08] MEDS: POTASSIUM CHLORIDE 20 MEQ CONTROLLED RELEASE TAB PO SCH (08:40)
[2017-04-08] MEDS: FAMOTIDINE 20 MG TAB PO SCH ×2 (08:41→21:00)
[2017-04-08] MEDS: FUROSEMIDE 20 MG TAB PO SCH (08:41)
[2017-04-08] MEDS: DOCUSATE SODIUM 50 MG/SENNA 8.6 MG TAB PO SCH ×2 (08:41→21:00)
[2017-04-08] MEDS: SODIUM CHLORIDE 0.9% FLUSH 10 ML FLUSH IV FLUSH SCH ×2 (08:42→21:31)
[2017-04-08] MEDS: ARTIFICIAL TEARS OPTH SOLN 15 ML BTL EACH EYE SCH ×3 (09:00→17:47)
--- NOTE | 2017-04-08 10:10 | HHI.PR ---
Subjective Remarks Follow-up sepsis 03/31/17-patient seen and examined, she was up and ambulated and denies any acute event overnight. Currently afebrile 04/01/17-patient seen and examined, stable and no change. Patient appears to be a difficult stick this morning for lab work 04/02/17-patient seen and examined, patient complains of back pain otherwise stable and no other issues. 04/03/17-patient seen and examined, no complaint today. Vitals stable 04/04/17-patient seen and examined complains of some numbness to left foot and states he doesn't feel the top of her foot otherwise no other issues. 04/05/17-patient seen and examined, stable and afebrile. Requesting if she can be taken off fluid restriction 04/06/17-no acute event overnight, currently afebrile and she denies any chest pain or shortness of breath. 04/07/17-patient seen and she is stable, has no complaints. Afebrile. 04/08/17-she was in tears this morning crying over the fact that she was told she only has 6 months to live. Otherwise no other problem she remains afebrile and denies any chest pain or shortness of breath. Objective Vitals Vital Signs Date Time Temp Pulse Resp B/P (MAP) Pulse Ox O2 Delivery O2 Flow Rate FiO2 04/08/17 08:55 98.5 74 18 125/81 (96) 98 04/08/17 04:00 76.0 18 18 125/80 (95) 98 04/08/17 00:24 Room Air 04/08/17 00:00 97.7 73 18 119/61 (80) 98 04/07/17 21:00 Room Air 04/07/17 20:00 74 04/07/17 20:00 97.9 77 18 146/84 (104) 100 04/07/17 16:00 98.2 75 18 122/81 (95) 99 04/07/17 12:00 97.2 77 18 129/87 (101) 97 04/07/17 10:15 16 I/O 04/07/17 04/07/17 04/07/17 04/08/17 04/08/17 04/08/17 07:00 15:00 23:00 07:00 15:00 23:00 Intake Total 400 ml 800 ml 520 ml Output Total 240 ml Balance 160 ml 800 ml 520 ml Intake Oral 100 ml 600 ml 120 ml IV Total 300 ml 200 ml 400 ml Output Urine Total 240 ml # Voids 3 4 # Bowel Movements 1 0 Result Diagram: 04/04/17 1250 04/07/17 0706 Objective Remarks GENERAL: NAD SKIN: Warm and dry. HEAD: Normocephalic. EYES: No scleral icterus. No injection or drainage. NECK: Supple, trachea midline. No JVD or lymphadenopathy. CARDIOVASCULAR: Regular rate and rhythm without murmurs, gallops, or rubs. RESPIRATORY: Breath sounds equal bilaterally. No accessory muscle use. GASTROINTESTINAL: Abdomen soft, non-tender, nondistended. MUSCULOSKELETAL: No cyanosis, or edema. BACK: Nontender without obvious deformity. No CVA tenderness. 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 Status: Acute (4) SVT (supraventricular tachycardia) ICD Code: I47.1 - Supraventricular tachycardia Status: Resolved (5) Postextubation stridor ICD Code: J95.89 - Other postprocedural complications and disorders of respiratory system, not elsewhere classified Status: Resolved (6) Acute hypoxemic respiratory failure ICD Code: J96.01 - Acute respiratory failure with hypoxia Status: Resolved (7) CVA (cerebral vascular accident) ICD Code: I63.9 - Cerebral infarction, unspecified (8) Tricuspid regurgitation ICD Code: I07.1 - Rheumatic tricuspid insufficiency Status: Acute (9) Acute systolic heart failure ICD Code: I50.21 - Acute systolic (congestive) heart failure (10) Prosthetic valve endocarditis ICD Code: T82.6XXA - Infection and inflammatory reaction due to cardiac valve prosthesis, initial encounter Status: Acute (11) DUONG (acute kidney injury) ICD Code: N17.9 - Acute kidney failure, unspecified Status: Resolved (12) Protein calorie malnutrition ICD Code: E46 - Unspecified protein-calorie malnutrition (13) Microcytic anemia ICD Code: D50.9 - Iron deficiency anemia, unspecified (14) Hyperphosphatemia ICD Code: E83.39 - Other disorders of phosphorus metabolism (15) Hypernatremia ICD Code: E87.0 - Hyperosmolality and hypernatremia (16) IV drug abuse ICD Code: F19.10 - Other psychoactive substance abuse, uncomplicated Status: Acute (17) Headache ICD Code: R51 - Headache (18) Abdominal pain ICD Code: R10.9 - Unspecified abdominal pain Assessment and Plan 36-year-old female with Severe sepsis-resolved Multiple splenic infarcts MSSA meningitis 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 Stop date for antibiotics 04/12/17 Continue current treatment Supraventricular tachycardia-resolved Echocardiogram revealed an ejection fraction showed 25-30%. Continue metoprolol. Postextubation stridor Resolved, and continue with neb when necessary as well as scheduled Acute hypoxemic respiratory failure Resolved Continue DuoNeb treatments. Maintain oxygen saturation above 92% CVA (cerebral vascular accident) CT head negative, MRI small acute and subacute cortical infarct of the left parietal lobe. Continue with scheduled methadone 10 mg twice Appreciate input from neurology who signed off PT to treat and eval Tricuspid regurgitation Continue oral Lasix. Acute systolic heart failure continue Lasix 40 mg po daily. Acute kidney injury) Now resolved. Protein calorie malnutrition Secondary to long-standing IV drug abuse and endocarditis. Microcytic anemia Continue with oral iron sulfate. Monitor H&H Hyperphosphatemia Now resolved. Continue to monitor levels. Hypernatremia Resolved. Continue to monitor BMP. IV drug abuse Advised cessation. Currently on methadone. Headache Resolved Abdominal pain Resolved Diarrhea, resolved C diff. is negative Continue probiotic. Anasarca. Improved Continue Lasix po. Continue current treatment Problem Qualifiers (1) CVA (cerebral vascular accident): Qualified Codes: I63.9 - Cerebral infarction, unspecified (2) Protein calorie malnutrition: Qualified Codes: E44.0 - Moderate protein-calorie malnutrition Isak Arias MD Apr 08, 2017 10:10
[2017-04-08] MEDS: ACETAMINOPHEN 325 MG TAB PO PRN (15:12)
[2017-04-09] VITALS (8 sets, daily range): BP systolic 108–134; BP diastolic 65–87; PULSE 72–100; RESP 16–17; TEMP 97.7–98.5; O2SAT 96–100
[2017-04-09] MEDS: AMPICILLIN INJ 2,000 MG in SODIUM CHLORIDE 0.9% INJ 100 ML IV SCH ×6 (01:02→21:56)
[2017-04-09] MEDS: MORPHINE SULFATE ORAL SOLN 10 MG/0.5 ML SYRINGE PO PRN ×7 (01:04→22:30)
[2017-04-09] MEDS: OXACILLIN INJ 2 GM in SODIUM CHLORIDE 0.9% INJ 100 ML IV SCH ×6 (01:55→22:32)
[2017-04-09] MEDS: HEPARIN SODIUM - SQ 10,000 UNITS/ML VIAL SQ SCH ×3 (02:00→17:10)
[2017-04-09] MEDS: CHLORHEXIDINE GLUCONATE 2 % 1 PACK (2 CLOTHS) TOP SCH (04:00)
[2017-04-09] MEDS: RIFAMPIN 150 MG CAP PO SCH ×2 (08:30→22:00)
[2017-04-09] MEDS: FUROSEMIDE 20 MG TAB PO SCH (08:30)
[2017-04-09] MEDS: POTASSIUM CHLORIDE 20 MEQ CONTROLLED RELEASE TAB PO SCH (08:30)
[2017-04-09] MEDS: ARTIFICIAL TEARS OPTH SOLN 15 ML BTL EACH EYE SCH ×3 (08:31→17:10)
[2017-04-09] MEDS: SODIUM CHLORIDE 0.9% FLUSH 10 ML FLUSH IV FLUSH SCH ×2 (08:32→22:01)
[2017-04-09] MEDS: FAMOTIDINE 20 MG TAB PO SCH ×2 (08:39→21:00)
[2017-04-09] MEDS: DOCUSATE SODIUM 50 MG/SENNA 8.6 MG TAB PO SCH ×2 (08:39→21:00)
[2017-04-09] MEDS: METHADONE HCL 10 MG/10 ML ORAL SOLUTION PO SCH ×2 (10:25→21:59)
--- NOTE | 2017-04-09 10:34 | HHI.PR ---
Subjective Remarks Follow-up sepsis 03/31/17-patient seen and examined, she was up and ambulated and denies any acute event overnight. Currently afebrile 04/01/17-patient seen and examined, stable and no change. Patient appears to be a difficult stick this morning for lab work 04/02/17-patient seen and examined, patient complains of back pain otherwise stable and no other issues. 04/03/17-patient seen and examined, no complaint today. Vitals stable 04/04/17-patient seen and examined complains of some numbness to left foot and states he doesn't feel the top of her foot otherwise no other issues. 04/05/17-patient seen and examined, stable and afebrile. Requesting if she can be taken off fluid restriction 04/06/17-no acute event overnight, currently afebrile and she denies any chest pain or shortness of breath. 04/07/17-patient seen and she is stable, has no complaints. Afebrile. 04/08/17-she was in tears this morning crying over the fact that she was told she only has 6 months to live. Otherwise no other problem she remains afebrile and denies any chest pain or shortness of breath. 04/09/17-patient seen and examined, stable today, no complaints and states she' s looking for discharge in 4 days Objective Vitals Vital Signs Date Time Temp Pulse Resp B/P (MAP) Pulse Ox O2 Delivery O2 Flow Rate FiO2 04/09/17 08:00 97.7 81 17 118/81 (93) 96 04/09/17 07:00 Room Air 04/09/17 04:00 98.5 74 16 108/68 (81) 96 04/09/17 00:00 98.4 78 16 121/83 (96) 100 04/09/17 00:00 Room Air 04/08/17 20:00 98.2 114 18 121/78 (92) 100 04/08/17 20:00 Room Air 04/08/17 20:00 73 04/08/17 17:10 98.4 70 18 125/80 (95) 99 04/08/17 12:44 98.6 79 18 112/83 (93) 96 I/O 04/08/17 04/08/17 04/08/17 04/09/1704/09/17 10/2/17 07:00 15:00 23:00 07:00 15:00 23:00 Intake Total 520 ml 300 ml 300 ml 200 ml Balance 520 ml 300 ml 300 ml 200 ml Intake Oral 120 ml IV Total 400 ml 300 ml 300 ml 200 ml # Voids 4 3 # Bowel Movements 0 Result Diagram: 04/07/17 0706 Objective Remarks GENERAL: NAD SKIN: Warm and dry. HEAD: Normocephalic. EYES: No scleral icterus. No injection or drainage. NECK: Supple, trachea midline. No JVD or lymphadenopathy. CARDIOVASCULAR: Regular rate and rhythm without murmurs, gallops, or rubs. RESPIRATORY: Breath sounds equal bilaterally. No accessory muscle use. GASTROINTESTINAL: Abdomen soft, non-tender, nondistended. MUSCULOSKELETAL: No cyanosis, or edema. BACK: Nontender without obvious deformity. No CVA tenderness. 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 Status: Acute (4) SVT (supraventricular tachycardia) ICD Code: I47.1 - Supraventricular tachycardia Status: Resolved (5) Postextubation stridor ICD Code: J95.89 - Other postprocedural complications and disorders of respiratory system, not elsewhere classified Status: Resolved (6) Acute hypoxemic respiratory failure ICD Code: J96.01 - Acute respiratory failure with hypoxia Status: Resolved (7) CVA (cerebral vascular accident) ICD Code: I63.9 - Cerebral infarction, unspecified (8) Tricuspid regurgitation ICD Code: I07.1 - Rheumatic tricuspid insufficiency Status: Acute (9) Acute systolic heart failure ICD Code: I50.21 - Acute systolic (congestive) heart failure (10) Prosthetic valve endocarditis ICD Code: T82.6XXA - Infection and inflammatory reaction due to cardiac valve prosthesis, initial encounter Status: Acute (11) DUONG (acute kidney injury) ICD Code: N17.9 - Acute kidney failure, unspecified Status: Resolved (12) Protein calorie malnutrition ICD Code: E46 - Unspecified protein-calorie malnutrition (13) Microcytic anemia ICD Code: D50.9 - Iron deficiency anemia, unspecified (14) Hyperphosphatemia ICD Code: E83.39 - Other disorders of phosphorus metabolism (15) Hypernatremia ICD Code: E87.0 - Hyperosmolality and hypernatremia (16) IV drug abuse ICD Code: F19.10 - Other psychoactive substance abuse, uncomplicated Status: Acute (17) Headache ICD Code: R51 - Headache (18) Abdominal pain ICD Code: R10.9 - Unspecified abdominal pain Assessment and Plan 36-year-old female with Severe sepsis-resolved Multiple splenic infarcts MSSA meningitis 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 Stop date for antibiotics 04/12/17 Continue current treatment Supraventricular tachycardia-resolved Echocardiogram revealed an ejection fraction showed 25-30%. Continue metoprolol. Postextubation stridor Resolved, and continue with neb when necessary as well as scheduled Acute hypoxemic respiratory failure Resolved Continue DuoNeb treatments. Maintain oxygen saturation above 92% CVA (cerebral vascular accident) CT head negative, MRI small acute and subacute cortical infarct of the left parietal lobe. Continue with scheduled methadone 10 mg twice Appreciate input from neurology who signed off PT to treat and eval Tricuspid regurgitation Continue oral Lasix. Acute systolic heart failure continue Lasix 40 mg po daily. Acute kidney injury) Now resolved. Protein calorie malnutrition Secondary to long-standing IV drug abuse and endocarditis. Microcytic anemia Continue with oral iron sulfate. Monitor H&H Hyperphosphatemia Now resolved. Continue to monitor levels. Hypernatremia Resolved. Continue to monitor BMP. IV drug abuse Advised cessation. Currently on methadone. Diarrhea, resolved C diff. is negative Continue probiotic. Anasarca. Improved Continue Lasix po. Problem Qualifiers (1) CVA (cerebral vascular accident): Qualified Codes: I63.9 - Cerebral infarction, unspecified (2) Protein calorie malnutrition: Qualified Codes: E44.0 - Moderate protein-calorie malnutrition Isak Arias MD Apr 09, 2017 10:34
[2017-04-09] MEDS: GENTAMICIN/SOD CHL 80 MG/100 ML IV SCH (12:21)
[2017-04-10] VITALS: BP 104/73; PULSE 78; RESP 16; TEMP 97.5; O2SAT 97
[2017-04-10] MEDS: AMPICILLIN INJ 2,000 MG in SODIUM CHLORIDE 0.9% INJ 100 ML IV SCH ×6 (01:51→21:39)
[2017-04-10] MEDS: MORPHINE SULFATE ORAL SOLN 10 MG/0.5 ML SYRINGE PO PRN ×7 (01:51→21:41)
[2017-04-10] MEDS: HEPARIN SODIUM - SQ 10,000 UNITS/ML VIAL SQ SCH ×3 (02:00→17:41)
[2017-04-10] MEDS: OXACILLIN INJ 2 GM in SODIUM CHLORIDE 0.9% INJ 100 ML IV SCH ×6 (02:21→22:20)
[2017-04-10] MEDS: CHLORHEXIDINE GLUCONATE 2 % 1 PACK (2 CLOTHS) TOP SCH (02:22)
[2017-04-10 04:00] VITALS: BP 107/56; PULSE 79; RESP 16; TEMP 97.9; O2SAT 96
[2017-04-10] MEDS: GENTAMICIN/SOD CHL 80 MG/100 ML IV SCH (06:12)
[2017-04-10 08:00] VITALS: BP 108/57; PULSE 70; PULSE 75; RESP 18; TEMP 98; O2SAT 96
[2017-04-10] MEDS: METHADONE HCL 10 MG/10 ML ORAL SOLUTION PO SCH ×2 (08:45→21:40)
[2017-04-10] MEDS: POTASSIUM CHLORIDE 20 MEQ CONTROLLED RELEASE TAB PO SCH (08:46)
[2017-04-10] MEDS: DOCUSATE SODIUM 50 MG/SENNA 8.6 MG TAB PO SCH ×2 (08:47→21:00)
[2017-04-10] MEDS: RIFAMPIN 150 MG CAP PO SCH ×2 (08:47→21:40)
[2017-04-10] MEDS: FUROSEMIDE 20 MG TAB PO SCH (08:47)
[2017-04-10] MEDS: FAMOTIDINE 20 MG TAB PO SCH ×2 (08:47→21:00)
[2017-04-10] MEDS: SODIUM CHLORIDE 0.9% FLUSH 10 ML FLUSH IV FLUSH SCH ×2 (08:51→21:39)
[2017-04-10] MEDS: ARTIFICIAL TEARS OPTH SOLN 15 ML BTL EACH EYE SCH ×3 (08:51→17:41)
--- NOTE | 2017-04-10 11:14 | HHI.PR ---
Subjective Remarks in no acute distress. no fever. has some nonspecific joint pains. Objective Vitals Vital Signs Date Time Temp Pulse Resp B/P (MAP) Pulse Ox O2 Delivery O2 Flow Rate FiO2 04/10/17 08:00 Room Air 04/10/17 08:00 70 04/10/17 08:00 98.0 75 18 108/57 (74) 96 04/10/17 04:00 97.9 79 16 107/56 (73) 96 04/10/17 00:00 97.5 78 16 104/73 (83) 97 04/09/17 20:00 98.0 81 16 134/87 (103) 100 04/09/17 20:00 76 04/09/17 20:00 Room Air 04/09/17 16:00 97.8 74 17 115/65 (82) 99 04/09/17 15:00 72 04/09/17 12:00 98.1 100 17 119/80 (93) 97 I/O 04/09/17 04/09/17 04/09/17 04/10/17 04/10/17 04/10/17 07:00 15:00 23:00 07:00 15:00 23:00 Intake Total 300 ml 1220 ml 500 ml 600 ml 100 ml Balance 300 ml 1220 ml 500 ml 600 ml 100 ml Intake Oral 720 ml 200 ml IV Total 300 ml 500 ml 300 ml 600 ml 100 ml # Voids 3 4 5 # Bowel Movements 1 1 Result Diagram: 04/09/17 1040 Imaging Last Impressions Abdomen CT 03/16/17 0000 Signed Impressions: Service Date/Time: Thursday, March 16, 2017 20:26 - CONCLUSION: 1. Peripheral low attenuation lesions in the spleen most characteristic of multiple splenic infarcts. Some of these are new findings since 2016 comparison. 2. Minimal subsegmental airspace disease at the lung bases. 3. 3.4 cm right adnexal cyst. Intrauterine device present. 4. Small fat containing ventral hernias. Eliud Campoverde MD Chest X-Ray 03/13/17 0000 Signed Impressions: Service Date/Time: Monday, March 13, 2017 08:07 - CONCLUSION: Suspected mild edema/failure. Adalid Perry MD Neck CT 03/10/17 0000 Signed Impressions: Service Date/Time: Friday, March 10, 2017 11:13 - CONCLUSION: 1. Patient is intubated which limits this study. The epiglottis is otherwise normal. Secretions are present in the oropharynx and right sphenoid sinus. Alex Monahan MD Brain MRI 03/02/17 0000 Signed Impressions: Service Date/Time: Thursday, March 02, 2017 17:07 - CONCLUSION: 1. Small acute or subacute cortical infarct of the left parietal lobe. 2. Small, faint area of nonspecific flair signal abnormality in the left frontal lobe periventricular white matter, nonspecific. No associated mass effect or abnormal enhancement. 3 month followup MRI of the brain recommended. 3. Mild chronic white matter changes. Adalid Perry MD Head CT 02/26/17 0000 Signed Impressions: Service Date/Time: Sunday, February 26, 2017 19:47 - CONCLUSION: No evidence of acute infarct, hemorrhage, mass or edema. Ken Sanchez MD Objective Remarks GENERAL: This is a well-nourished, well-developed patient, in no apparent distress. CARDIOVASCULAR: Regular rate and regular rhythm without murmurs, gallops, or rubs. RESPIRATORY: Clear to auscultation. Breath sounds equal bilaterally. No wheezes , rales, or rhonchi. GASTROINTESTINAL: Abdomen soft, non-tender, nondistended. Normal, active bowel sounds MUSCULOSKELETAL: Extremities without clubbing, cyanosis, or edema. NEURO: Alert & Oriented x4 to person, place, time, situation. Moves all ext x4 Procedures None Medications and IVs Current Medications Midazolam HCl 100 ml @ As Directed STK-MED ONCE .ROUTE ; Start 02/26/17 at 19: 36; Stop 02/26/17 at 19:37; Status DC Sodium Chloride 1,000 ml @ 70 mls/hr [id number] ONCE IV Last administered on 03/23 18:50; Start 02/26/17 at 19:35; Stop 02/27/17 at 09:52; Status DC Etomidate (Amidate Inj) 20 mg ONCE ONCE IV PUSH Last administered on 19:31; Start 02/26/17 at 19:45; Stop 02/26/17 at 19:46; Status DC Succinylcholine Chloride (Quelicin Inj) 100 mg ONCE ONCE IV PUSH Last administered on 02/26/17 19:45; Start 02/26/17 at 19:45; Stop 02/26/17 at 19:46 ; Status DC Sodium Chloride 1,000 ml @ 999 mls/hr BOLUS ONCE IV Last administered on 02/26 19:45; Start 02/26/17 at 19:45; Stop 02/26/17 at 20:45; Status DC Midazolam HCl (Versed Inj) 5 mg ONCE ONCE IV PUSH Last administered on 19:45; Start 02/26/17 at 19:45; Stop 02/26/17 at 19:46; Status DC Acetaminophen (Tylenol Supp) 650 mg ONCE ONCE RECTAL Last administered on 02/26 19:45; Start 02/26/17 at 19:45; Stop 02/26/17 at 19:46; Status DC Midazolam HCl (Versed Inj) 5 mg ONCE ONCE IV PUSH Last administered on 20:00; Start 02/26/17 at 20:00; Stop 02/26/17 at 20:01; Status DC Vecuronium [place] (Norcuron 10 Mg Inj) 10 mg ONCE ONCE IV PUSH Last administered on 02/26/17 20:00; Start 02/26/17 at 20:00; Stop 02/26/17 at 20:01 ; Status DC Vancomycin HCl 1000 mg/Sodium Chloride 250 ml @ 250 mls/hr ONCE ONCE IV ; Start 02/26/17 at 20:15; Stop 02/26/17 at 21:14; Status Cancel Ceftriaxone Sodium 2000 mg/ Sodium Chloride 100 ml @ 200 mls/hr ONCE ONCE IV Last administered on 02/26/17 20:15; Start 02/26/17 at 20:15; Stop 02/26/17 at 20:44; Status DC Sodium Chloride 1,000 ml @ 999 mls/hr BOLUS ONCE IV Last administered on 02/26 20:15; Start 02/26/17 at 20:15; Stop 02/26/17 at 21:15; Status DC Adenosine (Adenocard Inj) 12 mg ONCE ONCE IV PUSH Last administered on 20:15; Start 02/26/17 at 20:15; Stop 02/26/17 at 20:16; Status DC Propofol 100 ml @ 0 mls/hr TITRATE PRN IV Ordered RASS Last administered on 10:10; Start 02/26/17 at 20:15; Stop 03/04/17 at 20:06; Status DC Diltiazem HCl (Cardizem Inj) 20 mg ONCE ONCE IV Last administered on 20:30; Start 02/26/17 at 20:30; Stop 02/26/17 at 20:31; Status DC Ketorolac Tromethamine (Toradol Inj) 30 mg STK-MED ONCE .ROUTE ; Start 02/26/17 at 20:47; Stop 02/26/17 at 20:48; Status DC Ketorolac Tromethamine (Toradol Inj) 30 mg ONCE ONCE IV PUSH Last administered on 02/26/17 21:00; Start 02/26/17 at 21:00; Stop 02/26/17 at 21:02 ; Status DC Sodium Chloride 1,000 ml @ 999 mls/hr BOLUS ONCE IV Last administered on 02/26 21:00; Start 02/26/17 at 21:00; Stop 02/26/17 at 22:00; Status DC Acyclovir Sodium 1000 mg/Sodium Chloride 150 ml @ 150 mls/hr ONCE ONCE IV ; Start 02/26/17 at 21:15; Stop 02/26/17 at 22:14; Status DC Norepinephrine Bitartrate 250 ml @ 7.5 mls/hr TITRATE PRN IV Blood pressure management Last administered on 02/28/17 01:15; Start 02/26/17 at 21:30; Stop 03/07/17 at 12:30; Status DC Terbutaline Sulfate (Brethine Inj) 1 mg UNSCH PRN SQ For Extravasation; Start 02/26/17 at 21:30 Norepinephrine Bitartrate (Levophed Inj) 4 mg STK-MED ONCE .ROUTE ; Start at 21:17; Stop 02/26/17 at 21:18; Status DC Sodium Chloride (NS Flush) 2 ml UNSCH PRN .XX FLUSH AFTER USING IV ACCESS; Start 02/26/17 at 21:30; Stop 02/26/17 at 22:59; Status DC Sodium Chloride (NS Flush) 2 ml BID .XX ; Start 02/27/17 at 09:00; Stop at 09:00; Status DC Acetaminophen (Tylenol) 650 mg Q6H PRN PO FEVER >101F Last administered on 04/08 15:12; Start 02/26/17 at 21:30 Morphine Sulfate (Morphine Inj) 2 mg Q2H PRN IV PAIN SCALE 6 TO 10 Last administered on 03/13/17 11:12; Start 02/26/17 at 21:30; Stop 03/13/17 at 15:35; Status DC Famotidine (Pepcid Inj) 20 mg Q12HR IV PUSH Last administered on 03/12/17 19:59 ; Start 02/27/17 at 09:00; Stop 03/13/17 at 08:02; Status DC Midazolam HCl (Versed Inj) 2 mg Q1H PRN IV SEDATION; Start 02/26/17 at 21:30; Stop 02/27/17 at 13:03; Status DC Artificial Tears (Tears Naturale Opth Soln) 1 drop TID EACH EYE Last administered on 04/04/17 12:20; Start 02/27/17 at 09:00 Ondansetron HCl (Zofran Inj) 4 mg Q6H PRN IV NAUSEA OR VOMITING Last administered on 03/16/17 12:47; Start 02/26/17 at 21:30 Albuterol/ Ipratropium (Duoneb Neb) 1 ampule Q2HR NEB PRN INH WHEEZING Last administered on 03/13/17 07:35; Start 02/26/17 at 21:30 Heparin Sodium (Porcine) (Heparin Inj) 5,000 units Q12H SQ Last administered on 03/12/17 20:00; Start 02/26/17 at 22:00; Stop 03/13/17 at 08:03; Status DC Miscellaneous Information 1 [id number] Last administered on 02/26/17 21:30; Start 02/26/17 at 21:30 Chlorhexidine Gluconate (Chlorhexidine 2% Cloth) 3 pack Taper DAILY@04 TOP Last administered on 03/05/17 00:07; Start 02/27/17 at 04:00; Stop 02/23/18 at 03:59 Chlorhexidine Gluconate (Chlorhexidine 2% Cloth) 3 pack UNSCH PRN TOP HYGIENIC CARE; Start 02/26/17 at 21:30 Senna/Docusate Sodium (Armida-Colace) 1 tab BID PO Last administered on 09:17; Start 02/27/17 at 09:00 Magnesium Hydroxide (Milk Of Magnesia Liq) 30 ml Q12H PRN PO MILD - MODERATE CONSTIPATION; Start 02/26/17 at 21:30 Sennosides (Senokot) 17.2 mg Q12H PRN PO MODERATE - SEVERE CONSTIPATION; Start 02/26/17 at 21:30 Bisacodyl (Dulcolax Supp) 10 mg DAILY PRN RECTAL SEVERE CONSITIPATION; Start at 21:30 Lactulose (Lactulose Liq) 30 ml DAILY PRN PO SEVERE CONSITIPATION; Start at 21:30 Sodium Chloride (NS Flush) 2 ml UNSCH PRN IV FLUSH FLUSH AFTER USING IV ACCESS Last administered on 04/02/17 04:36; Start 02/26/17 at 22:45 Sodium Chloride (NS Flush) 2 ml BID IV FLUSH Last administered on 04/10/17 08: 51; Start 02/27/17 at 09:00 Ceftriaxone Sodium 2000 mg/ Sodium Chloride 100 ml @ 200 mls/hr Q12H IV Last administered on 02/28/17 08:00; Start 02/27/17 at 08:00; Stop 02/28/17 at 18:22 ; Status DC Pharmacy Profile Note 0 ml @ 0 mls/hr UNSCH OTHER ; Start 02/26/17 at 22:45; Stop 02/27/17 at 15:32; Status DC Acyclovir Sodium 1050 mg/Sodium Chloride 150 ml @ 150 mls/hr Q8H IV Last administered on 02/27/17 09:54; Start 02/27/17 at 01:00; Stop 02/27/17 at 15:32 ; Status DC Amphotericin B Liposome 340 mg/ Dextrose 250 ml @ 125 mls/hr Q24H IV ; Start at 23:45; Stop 02/27/17 at 00:37; Status DC Sodium Chloride 1,000 ml @ 1,000 mls/hr Q1H ONCE IV Last administered on 22:20; Start 02/26/17 at 22:33; Stop 02/26/17 at 23:32; Status DC Sodium Chloride 1,000 ml @ 1,000 mls/hr Q1H ONCE IV Last administered on 23:20; Start 02/26/17 at 22:33; Stop 02/26/17 at 23:32; Status DC Sodium Chloride 100 ml @ 1,000 mls/hr Q6M ONCE IV Last administered on 22:33; Start 02/26/17 at 22:33; Stop 02/26/17 at 22:42; Status DC Vancomycin HCl 2000 mg/Sodium Chloride 520 ml @ 250 mls/hr ONCE ONCE IV Last administered on 02/27/17 01:15; Start 02/27/17 at 01:00; Stop 02/27/17 at 03:04 ; Status DC Amphotericin B Liposome 340 mg/ Dextrose 250 ml @ 125 mls/hr Q24H IV ; Start at 00:45; Status Cancel Amphotericin B Liposome 340 mg/ Dextrose 250 ml @ 125 mls/hr Q24H IV Last administered on 02/27/17 02:00; Start 02/27/17 at 02:00; Stop 02/27/17 at 21:57 ; Status DC Potassium Chloride 100 ml @ 50 mls/hr Q2H PRN IV For Potassium 2.8 - 3.2 mEq/ L Last administered on 03/08/17 08:06; Start 02/27/17 at 06:00; Stop 03/13/17 at 17:47; Status DC Potassium Chloride 100 ml @ 50 mls/hr Q2H PRN IV For Potassium 2.8 - 3.2 mEq/ L Last administered on 03/03/17 13:04; Start 02/27/17 at 06:00; Stop 03/13/17 at 17:47; Status DC Potassium Bicarb/ Potassium Chloride (K-Lyte Cl Eff) 50 meq UNSCH PRN PO For Potassium 3.3 - 3.5 mEq/L Last administered on 03/11/17 08:10; Start 02/27/17 at 06:00; Stop 03/13/17 at 17:47; Status DC Potassium Chloride 100 ml @ 25 mls/hr UNSCH PRN IV For Potassium 3.3 - 3.5 mEq /L Last administered on 03/12/17 06:10; Start 02/27/17 at 06:00; Stop 03/13/17 at 17:47; Status DC Potassium Chloride 100 ml @ 50 mls/hr Q2H PRN IV For Potassium 3.3 - 3.5 mEq/ L Last administered on 03/10/17 12:32; Start 02/27/17 at 06:00; Stop 03/13/17 at 17:47; Status DC Magnesium Sulfate 4 gm/Sodium Chloride 100 ml @ 50 mls/hr UNSCH PRN IV For Magnesium 0.9 - 1.1 mg/dL; Start 02/27/17 at 06:00; Stop 03/07/17 at 12:30; Status DC Magnesium Oxide (Mag-Ox) 800 mg UNSCH PRN PO For Magnesium 1.2 - 1.6 mg/dL; Start 02/27/17 at 06:00; Stop 03/07/17 at 12:31; Status DC Magnesium Sulfate 2 gm/Sodium Chloride 100 ml @ 50 mls/hr UNSCH PRN IV For Magnesium 1.2 - 1.6 mg/dL Last administered on 03/02/17 09:45; Start 02/27/17 at 06:00; Stop 03/07/17 at 12:31; Status DC Potassium Phosphate (K-Phos) 2,000 mg Q4H PRN PO For Phosphorus < 2.5 mg/dL; Start 02/27/17 at 06:00; Stop 03/13/17 at 17:47; Status DC Sodium Phosphate 30 mmol/Sodium Chloride 250 ml @ 42 mls/hr UNSCH PRN IV For Phosphorus < 2.5 mg/dL; Start 02/27/17 at 06:00; Stop 03/13/17 at 17:47; Status DC Potassium Phosphate (K-Phos) 2,000 mg UNSCH PRN PO/TUBE SEE LABEL COMMENTS; Start 02/27/17 at 06:00; Stop 03/13/17 at 17:47; Status DC Potassium Phosphate 30 mmol/ Sodium Chloride 260 ml @ 42 mls/hr UNSCH PRN IV SEE LABEL COMMENTS; Start 02/27/17 at 06:00; Stop 03/13/17 at 17:47; Status DC Midazolam HCl 100 ml @ 2 mls/hr TITRATE PRN IV SEDATION Last administered on 07:54; Start 02/27/17 at 07:00; Stop 02/27/17 at 13:03; Status DC Vancomycin HCl 1500 mg/Sodium Chloride 515 ml @ 250 mls/hr Q18H IV ; Start at 21:00; Stop 02/27/17 at 21:00; Status DC Miscellaneous Information SPECIFIC LAB TO BE DRAWN:VANCOMYCIN TROUGH DATE TO... ONCE ONCE .XX ; Start 03/01/17 at 08:45; Stop 03/01/17 at 08:46; Status Cancel Fentanyl Citrate 250 ml @ 0 mls/hr TITRATE IV Last administered on 02/27/17 14 :38; Start 02/27/17 at 13:00; Stop 03/01/17 at 14:33; Status DC Dextrose (D50w (Vial) Inj) 25 ml UNSCH PRN IV PUSH HYPOGLYCEMIA-SEE COMMENTS; Start 02/27/17 at 13:00; Stop 03/07/17 at 20:43; Status DC Insulin Human Regular (NovoLIN R SUPPLEMENTAL SCALE) 1 Q6HR SQ ; Start 02/27/17 at 18:00; Stop 03/07/17 at 20:43; Status DC Oxacillin Sodium 2 gm/Sodium Chloride 100 ml @ 200 mls/hr Q4H IV Last administered on 04/10/17 05:22; Start 02/27/17 at 18:00 Pharmacy Profile Note 0 ml @ 0 mls/hr UNSCH OTHER ; Start 02/27/17 at 15:30 Fluconazole/ Sodium Chloride 400 ml @ 100 mls/hr Q24H IV ; Start 02/27/17 at 18 :00; Stop 02/27/17 at 18:00; Status DC Rifampin 300 mg/ Sodium Chloride 100 ml @ 100 mls/hr Q12H IV Last administered on 03/08/17 07:58; Start 02/27/17 at 21:00; Stop 03/08/17 at 14:31 ; Status DC Gentamicin Sulfate/Sodium Chloride 100 ml @ 200 mls/hr Q8H IV Last administered on 02/28/17 10:13; Start 02/27/17 at 18:00; Stop 02/28/17 at 14:36 ; Status DC Miscellaneous Information SPECIFIC LAB TO BE DRAWN:GENTAMICIN TROUGH DATE TO... ONCE ONCE .XX Last administered on 02/28/17 09:50; Start 02/28/17 at 09:45; Stop 02/28/17 at 10:04; Status DC Miscellaneous Information SPECIFIC LAB TO BE DRAWN:GENTAMICIN PEAK DATE TO... ONCE ONCE .XX Last administered on 02/28/17 11:45; Start 02/28/17 at 11:30; Stop 02/28/17 at 11:31; Status DC Fluconazole/ Sodium Chloride 400 ml @ 200 mls/hr Q24H IV ; Start 02/27/17 at 19 :00; Stop 02/27/17 at 19:00; Status DC Fluconazole/ Sodium Chloride 200 ml @ 100 mls/hr Q24H IV ; Start 02/27/17 at 18 :00; Stop 02/27/17 at 18:00; Status DC Fluconazole/ Sodium Chloride 200 ml @ 100 mls/hr Q24H IV Last administered on 03/03/17 20:37; Start 02/27/17 at 20:00; Stop 03/04/17 at 18:11; Status DC Fluconazole/ Sodium Chloride 200 ml @ 100 mls/hr Q24H IV Last administered on 03/03/17 22:43; Start 02/27/17 at 22:00; Stop 03/04/17 at 18:11; Status DC Amphotericin B Liposome 340 mg/ Dextrose 235 ml @ 117.5 mls/ hr Q24H IV Last administered on 02/28/17 02:14; Start 02/28/17 at 02:00; Stop 02/28/17 at 18:22 ; Status DC Bumetanide (Bumex Inj) 1 mg DAILY IV PUSH Last administered on 03/07/17 09:51 ; Start 02/28/17 at 10:30; Stop 03/07/17 at 12:31; Status DC Gentamicin Sulfate 100 mg/ Sodium Chloride 102.5 ml @ 200 mls/hr Q12H IV Last administered on 03/02/17 12:13; Start 03/01/17 at 00:00; Stop 03/02/17 at 13:07 ; Status DC Miscellaneous Information SPECIFIC LAB TO BE DRAWN:GENTAMICIN TROUGH DATE TO... ONCE ONCE .XX Last administered on 03/02/17 11:45; Start 03/02/17 at 11:45; Stop 03/02/17 at 11:46; Status DC Bumetanide (Bumex Inj) 1 mg NOW ONCE IV PUSH Last administered on 03/01/17 11 :20; Start 03/01/17 at 09:45; Stop 03/01/17 at 10:22; Status DC Bumetanide 100 ml @ 2 mls/hr Q24H IV Last administered on 03/02/17 18:43; Start 03/01/17 at 12:45; Stop 03/03/17 at 10:57; Status DC Ampicillin Sodium 2000 mg/Sodium Chloride 100 ml @ 400 mls/hr Q4H IV Last administered on 04/10/17 08:48; Start 03/01/17 at 13:00 Fentanyl Citrate 250 ml @ 0 mls/hr TITRATE IV ; Start 03/01/17 at 14:45; Stop at 15:53; Status DC Fentanyl Citrate 250 ml @ 2.5 mls/hr TITRATE IV Last administered on 18:40; Start 03/01/17 at 16:00; Stop 03/08/17 at 18:04; Status DC Gentamicin Sulfate/Sodium Chloride 100 ml @ 200 mls/hr Q12H IV Last administered on 03/28/17 12:49; Start 03/03/17 at 00:00; Stop 03/28/17 at 14:04 ; Status DC Miscellaneous Information SPECIFIC LAB TO BE MELISSA... ONCE ONCE .XX Last administered on 03/04/17 11:45; Start 03/04/17 at 11:45; Stop 03/04/17 at 11:46 ; Status DC Gadodiamide (Omniscan Pf Inj) 20 ml STK-MED ONCE IVCONTRAST Last administered on 03/02/17 17:25; Start 03/02/17 at 17:25; Stop 03/02/17 at 17:26; Status DC Metoprolol Tartrate (Lopressor Inj) 5 mg STK-MED ONCE .ROUTE Last administered on 03/03/17 10:58; Start 03/03/17 at 10:29; Stop 03/03/17 at 10:30; Status DC Diltiazem HCl (Cardizem Inj) 20 mg ONCE ONCE IV PUSH ; Start 03/03/17 at 10:30 ; Stop 03/03/17 at 10:40; Status DC Diltiazem HCl 125 mg/Sodium Chloride 125 ml @ 5 mls/hr TITRATE PRN IV Tachycardia; Start 03/03/17 at 10:30; Stop 03/07/17 at 12:31; Status DC Diltiazem HCl (Cardizem Inj) 20 mg UNSCH X1 PRN IV PUSH SEE LABEL COMMENTS; Start 03/03/17 at 11:00; Stop 03/03/17 at 13:00; Status DC Metoprolol Tartrate (Lopressor Inj) 2.5 mg Q6H PRN IV PUSH Heart rate > 100BPM Last administered on 03/07/17 18:55; Start 03/03/17 at 11:00; Stop 03/13/17 at 17:46; Status DC Acetaminophen (Ofirmev 1000 Mg/ 100 ml Inj) 1,000 mg Q6H PRN IV PAIN SCALE 6 TO 8 Last administered on 03/10/17 13:57; Start 03/03/17 at 11:00; Stop 03/13/17 at 08:02; Status DC Midazolam HCl 100 ml @ 2 mls/hr TITRATE PRN IV SEDATION Last administered on 20:23; Start 03/04/17 at 09:30; Stop 03/11/17 at 10:28; Status DC Dexmedetomidine HCl 200 mcg/ Sodium Chloride 52 ml @ 5.28 mls/hr Q9H51M PRN IV SEDATION Last administered on 03/06/17 21:33; Start 03/05/17 at 10:29; Stop 03/11/17 at 09:04; Status DC Water (Free Water) VOLUME: 300 ML Q8HR G-TUBE Last administered on 03/11/17 04: 26; Start 03/06/17 at 14:00; Stop 03/11/17 at 08:00; Status DC Sodium Chloride 38.5 meq/Sterile Water 1,009.625 ml @ 84 mls/hr Q12H2M IV Last administered on 03/08/17 01:09; Start 03/07/17 at 14:00; Stop 03/08/17 at 14:02 ; Status DC Potassium Chloride (KCl Powder) 20 meq ONCE ONCE PO Last administered on 15:02; Start 03/07/17 at 12:45; Stop 03/07/17 at 13:07; Status DC Etomidate (Amidate Inj) 20 mg STK-MED ONCE .ROUTE ; Start 03/07/17 at 18:15; Stop 03/07/17 at 18:16; Status DC Dexamethasone Sodium Phosphate (Decadron Inj) 4 mg Q8HR IV PUSH Last administered on 03/10/17 05:50; Start 03/08/17 at 14:00; Stop 03/10/17 at 13:59; Status DC Rifampin (Rifampin) 300 mg Q12HR PO Last administered on 04/10/17 08:47; Start 03/08/17 at 21:00 Fentanyl Citrate 250 ml @ 5 mls/hr TITRATE PRN IV Sedation Last administered on 03/10/17 20:23; Start 03/08/17 at 18:15; Stop 03/11/17 at 10:28; Status DC Potassium Chloride 100 ml @ 50 mls/hr BOLUS ONCE IV Last administered on 14:05; Start 03/09/17 at 12:00; Stop 03/09/17 at 13:59; Status DC Albuterol/ Ipratropium (Duoneb Neb) 1 ampule Q6HR NEB NEB Last administered on 03/13/17 05:25; Start 03/09/17 at 16:00; Stop 03/13/17 at 07:34; Status DC Methadone HCl (Methadone Liq) 5 mg ONCE ONCE NG Last administered on 23:07; Start 03/09/17 at 23:00; Stop 03/09/17 at 23:01; Status DC Potassium Chloride (KCl Powder) 20 meq ONCE ONCE PO Last administered on 08:15; Start 03/11/17 at 08:15; Stop 03/11/17 at 08:16; Status DC Potassium Chloride 100 ml @ 25 mls/hr BOLUS ONCE IV Last administered on 09:22; Start 03/11/17 at 08:15; Stop 03/11/17 at 12:14; Status DC Water (Free Water) VOLUME: 300 ML Q6HR G-TUBE Last administered on 03/12/17 05: 35; Start 03/11/17 at 12:00; Stop 03/12/17 at 09:30; Status DC Methadone HCl (Methadone Liq) 10 mg Q12HR PO Last administered on 03/13/17 08: 47; Start 03/11/17 at 10:00; Stop 03/13/17 at 15:35; Status DC Dexmedetomidine HCl 200 mcg/ Sodium Chloride 52 ml @ 5.44 mls/hr TITRATE PRN IV SEDATION Last administered on 03/12/17 05:40; Start 03/11/17 at 09:00; Stop at 08:02; Status DC Racepinephrine (Racepinephrine 2.25% Neb) 0.5 ml ONCE ONCE NEB Last administered on 03/12/17 01:59; Start 03/12/17 at 01:45; Stop 03/12/17 at 01:51; Status DC Racepinephrine (Racepinephrine 2.25% Neb) 0.5 ml ONCE PRN NEB STRIDOR; Start at 01:45; Stop 03/13/17 at 01:44; Status DC Albuterol/ Ipratropium (Duoneb Neb) 1 ampule Q6HR NEB NEB Last administered on 03/15/17 22:04; Start 03/13/17 at 10:00; Stop 03/17/17 at 09:59; Status DC Famotidine (Pepcid) 20 mg BID PO Last administered on 04/07/17 08:31; Start at 09:00 Heparin Sodium (Porcine) (Heparin Inj) 5,000 units Q8H SQ Last administered on 03/29/17 18:50; Start 03/13/17 at 10:00 Furosemide (Lasix) 20 mg DAILY PO Last administered on 03/15/17 09:03; Start at 09:00; Stop 03/15/17 at 15:54; Status DC Potassium Chloride (KCl) 20 meq DAILY PO Last administered on 04/10/17 08:46; Start 03/13/17 at 09:00 Miscellaneous Information SPECIFIC LAB TO BE DRAWN:GENTAMICIN TROUGH DATE TO... ONCE ONCE .XX ; Start 03/14/17 at 11:45; Stop 03/14/17 at 11:46; Status DC Methadone HCl (Methadone Liq) 20 mg Q12HR PO Last administered on 03/23/17 09 :03; Start 03/13/17 at 21:00; Stop 03/23/17 at 17:25; Status DC Morphine Sulfate (Morphine Inj) 3 mg Q3H PRN IV PAIN SCALE 6 TO 10 Last administered on 04/02/17 11:14; Start 03/13/17 at 15:45; Stop 04/02/17 at 11:51 ; Status DC Miscellaneous Information SPECIFIC LAB TO BE DRAWN:GENTAMICIN TROUGH DATE TO... ONCE ONCE .XX Last administered on 03/15/17 13:18; Start 03/15/17 at 11:45; Stop 03/15/17 at 11:46; Status DC Acetaminophen (Tylenol) 650 mg Q4H PRN PO HEADACHE; Start 03/15/17 at 16:00; Stop 03/15/17 at 16:00; Status DC Acetaminophen (Tylenol) 1,000 mg Q4H PRN PO HEADACHE Last administered on 15:37; Start 03/15/17 at 16:00 Furosemide (Lasix) 40 mg DAILY PO Last administered on 04/10/17 08:47; Start 03/16/17 at 09:00 Furosemide (Lasix) 20 mg ONCE ONCE PO Last administered on 03/15/17 16:55; Start 03/15/17 at 16:00; Stop 03/15/17 at 16:04; Status DC Diatrizoate Meglum/ Diatrizoate Sod ( Gastroview Liq) 18 ml ONCE ONCE PO Last administered on 03/16/17 16:17; Start 03/16/17 at 16:00; Stop 03/16/17 at 16: 01; Status DC Iohexol (Omnipaque 350 Inj) 95 ml STK-MED ONCE IVCONTRAST Last administered on 03/16/17 20:45; Start 03/16/17 at 20:45; Stop 03/16/17 at 20:46; Status DC Furosemide (Lasix Inj) 40 mg ONCE ONCE IV PUSH Last administered on 03/18/17 18:15; Start 03/18/17 at 16:45; Stop 03/18/17 at 17:37; Status DC Potassium Chloride (KCl) 80 meq ONCE ONCE PO ; Start 03/18/17 at 16:45; Stop at 16:46; Status UNV Potassium Chloride (KCl) 60 meq ONCE ONCE PO Last administered on 03/18/17 19 :58; Start 03/18/17 at 18:45; Stop 03/18/17 at 18:46; Status DC Furosemide (Lasix Inj) 40 mg ONCE ONCE IV PUSH Last administered on 03/19/17 16:55; Start 03/19/17 at 16:00; Stop 03/19/17 at 16:01; Status DC Loperamide HCl (Imodium) 2 mg UNSCH PRN PO DIARRHEA; Start 03/20/17 at 10:45 Furosemide (Lasix Inj) 40 mg ONCE ONCE IV PUSH Last administered on 03/20/17 11:08; Start 03/20/17 at 10:45; Stop 03/20/17 at 10:46; Status DC Furosemide (Lasix Inj) 40 mg ONCE ONCE IV PUSH Last administered on 03/21/17 17:46; Start 03/21/17 at 17:30; Stop 03/21/17 at 17:31; Status DC Potassium Chloride (KCl) 40 meq ONCE ONCE PO Last administered on 03/21/17 17 :47; Start 03/21/17 at 17:30; Stop 03/21/17 at 17:31; Status DC Miscellaneous Information SPECIFIC LAB TO BE MELISSA... ONCE ONCE .XX Last administered on 03/23/17 23:45; Start 03/23/17 at 23:45; Stop 03/23/17 at 23:46 ; Status DC Methadone HCl (Methadone Liq) 25 mg Q12HR PO Last administered on 04/10/17 08 :45; Start 03/23/17 at 21:00 Gentamicin Sulfate 80 mg/ Sodium Chloride 102 ml @ 204 mls/hr Q12H IV ; Start 03/27/17 at 00:00; Stop 03/27/17 at 00:00; Status DC Miscellaneous Information SPECIFIC LAB TO BE DRAWN:GENTAMICIN TROUGH DATE TO... ONCE ONCE .XX Last administered on 03/28/17 11:45; Start 03/28/17 at 11:45; Stop 03/28/17 at 11:46; Status DC Gentamicin Sulfate/Sodium Chloride 100 ml @ 200 mls/hr Q18H IV Last administered on 04/10/17 06:12; Start 03/29/17 at 06:00 Miscellaneous Information SPECIFIC LAB TO BE DRAWN:GENTAMICIN TROUGH DATE TO... ONCE ONCE .XX Last administered on 03/31/17 13:00; Start 03/31/17 at 11:45; Stop 03/31/17 at 11:46; Status DC Morphine Sulfate (Roxanol Liq) 10 mg Q3H PRN PO pain 6-10 Last administered on 04/10/17 08:51; Start 04/02/17 at 12:00 Morphine Sulfate (Roxanol Liq) 5 mg Q3H PRN PO pain 1-5; Start 04/02/17 at 12: 00 Miscellaneous Information SPECIFIC LAB TO BE DRAWN:GENTAMICIN TROUGH DATE TO... 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 Stop date for antibiotics 04/12/17 Continue current treatment Supraventricular tachycardia-resolved Echocardiogram revealed an ejection fraction showed 25-30%. Continue metoprolol. Acute hypoxemic respiratory failure Resolved Continue DuoNeb treatments. Maintain oxygen saturation above 92% CVA (cerebral vascular accident) CT head negative, MRI small acute and subacute cortical infarct of the left parietal lobe. taper down methadone 10 mg twice Appreciate input from neurology who signed off PT to treat and eval Tricuspid regurgitation Continue oral Lasix. Acute systolic heart failure continue Lasix 40 mg po daily. Acute kidney injury) Now resolved. Protein calorie malnutrition Secondary to long-standing IV drug abuse and endocarditis. Microcytic anemia Continue with oral iron sulfate. Monitor H&H IV drug abuse Advised cessation. Currently on methadone. Diarrhea, resolved C diff. is negative Continue probiotic. Anasarca. Improved Continue Lasix po. Discharge Planning patient was on hospice before and would like to go back to hospice upon discharge; hospice consulted. dc home towards the end of the week if stable. Winnie Perrin MD Apr 10, 2017 11:14
[2017-04-10 12:00] VITALS: BP 121/77; PULSE 82; RESP 20; TEMP 99; O2SAT 100
[2017-04-10 14:52] LABS: AUTOMATED NEUTROPHIL # 4.3 TH/MM3 (1.8-7.7); BASOPHIL # 0.1 TH/MM3 (0-0.2); BASOPHIL % 1.2 % (0.0-2.0); EOSINOPHIL # 0.3 TH/MM3 (0-0.4); EOSINOPHIL % 4.1 % (0.0-4.0); HEMATOCRIT 30.4 % (35.0-46.0); HEMO FLAGS DIFF FINAL; LYMPH % 25.8 % (9.0-44.0); LYMPHOCYTE # 1.8 TH/MM3 (1.0-4.8); MEAN CELL VOLUME 77.9 FL (80.0-100.0); MEAN CORPUSCULAR HEMOGLOBIN 25.2 PG (27.0-34.0); MEAN CORPUSCULAR HGB CONC 32.4 % (32.0-36.0); MONO % 7.1 % (0.0-8.0); NEUT % 61.8 % (16.0-70.0); PLATELET COUNT 322 TH/MM3 (150-450); RED BLOOD COUNT 3.91 MIL/MM3 (4.00-5.30); RED CELL DISTRIBUTION WIDTH 19.9 % (11.6-17.2)
[2017-04-10 15:09] LABS: ALT (GPT) 14 U/L (10-53); ANION GAP 9 MEQ/L (5-15); AST (GOT) 14 U/L (15-37); BICARBONATE 25.7 MEQ/L (21.0-32.0); BLOOD UREA NITROGEN 9 MG/DL (7-18); CHLORIDE 102 MEQ/L (98-107); GLOMERULAR FILTRATION RATE 54 ML/MIN (>89); POTASSIUM 3.2 MEQ/L (3.5-5.1); SODIUM (NA) 137 MEQ/L (136-145)
[2017-04-10 15:11] LABS: ALKALINE PHOSPHATASE 103 U/L (45-117); TOTAL BILIRUBIN ADULT 0.2 MG/DL (0.2-1.0)
[2017-04-10 16:00] VITALS: BP 109/82; PULSE 83; RESP 20; TEMP 98.6; O2SAT 100
[2017-04-10] MEDS ORDERED: POTASSIUM CHLORIDE 10 MEQ CONTROLLED RELEASE TAB PO ONE (17:45)
[2017-04-10 20:00] VITALS: BP 127/87; PULSE 74; PULSE 76; RESP 20; TEMP 98.3; O2SAT 100
[2017-04-11] VITALS (7 sets, daily range): BP systolic 109–131; BP diastolic 69–92; PULSE 76–86; RESP 18–20; TEMP 98.2–99; O2SAT 98–100
[2017-04-11] MEDS: GENTAMICIN/SOD CHL 80 MG/100 ML IV SCH ×2 (01:30→17:47)
[2017-04-11] MEDS: MORPHINE SULFATE ORAL SOLN 10 MG/0.5 ML SYRINGE PO PRN ×7 (01:49→21:22)
[2017-04-11] MEDS: HEPARIN SODIUM - SQ 10,000 UNITS/ML VIAL SQ SCH ×3 (02:00→18:00)
[2017-04-11] MEDS: AMPICILLIN INJ 2,000 MG in SODIUM CHLORIDE 0.9% INJ 100 ML IV SCH ×6 (02:24→21:19)
[2017-04-11] MEDS: OXACILLIN INJ 2 GM in SODIUM CHLORIDE 0.9% INJ 100 ML IV SCH ×6 (03:07→22:02)
[2017-04-11] MEDS: CHLORHEXIDINE GLUCONATE 2 % 1 PACK (2 CLOTHS) TOP SCH (03:15)
[2017-04-11] MEDS: RIFAMPIN 150 MG CAP PO SCH ×2 (08:31→21:23)
[2017-04-11] MEDS: DOCUSATE SODIUM 50 MG/SENNA 8.6 MG TAB PO SCH ×2 (08:31→21:00)
[2017-04-11] MEDS: FAMOTIDINE 20 MG TAB PO SCH ×2 (08:31→21:00)
[2017-04-11] MEDS: METHADONE HCL 10 MG/10 ML ORAL SOLUTION PO SCH ×2 (08:32→21:18)
[2017-04-11] MEDS: FUROSEMIDE 20 MG TAB PO SCH (08:32)
[2017-04-11] MEDS: POTASSIUM CHLORIDE 20 MEQ CONTROLLED RELEASE TAB PO SCH (08:32)
[2017-04-11] MEDS: SODIUM CHLORIDE 0.9% FLUSH 10 ML FLUSH IV FLUSH SCH ×2 (08:35→21:24)
[2017-04-11] MEDS: ARTIFICIAL TEARS OPTH SOLN 15 ML BTL EACH EYE SCH ×3 (08:35→17:48)
--- NOTE | 2017-04-11 09:48 | HHI.PR ---
Subjective Remarks in no distress. no fever. no new complaints. Objective Vitals Vital Signs Date Time Temp Pulse Resp B/P (MAP) Pulse Ox O2 Delivery O2 Flow Rate FiO2 04/11/17 08:00 98.6 78 18 119/78 (92) 98 04/11/17 04:00 98.4 79 18 109/69 (82) 100 04/11/17 00:00 98.5 81 20 120/77 (91) 99 04/10/17 20:00 74 04/10/17 20:00 98.3 76 20 127/87 (100) 100 04/10/17 20:00 Room Air 04/10/17 16:00 98.6 83 20 109/82 (91) 100 04/10/17 12:00 99.0 82 20 121/77 (92) 100 I/O 04/10/17 04/10/17 04/10/17 04/11/17 04/11/17 04/11/17 07:00 15:00 23:00 07:00 15:00 23:00 Intake Total 600 ml 400 ml 1100 ml 500 ml Balance 600 ml 400 ml 1100 ml 500 ml Intake Oral 700 ml IV Total 600 ml 400 ml 400 ml 500 ml # Voids 5 5 3 # Bowel Movements 1 Result Diagram: 04/10/17 1400 04/10/17 1400 Imaging Last Impressions Abdomen CT 03/16/17 0000 Signed Impressions: Service Date/Time: Thursday, March 16, 2017 20:26 - CONCLUSION: 1. Peripheral low attenuation lesions in the spleen most characteristic of multiple splenic infarcts. Some of these are new findings since 2016 comparison. 2. Minimal subsegmental airspace disease at the lung bases. 3. 3.4 cm right adnexal cyst. Intrauterine device present. 4. Small fat containing ventral hernias. Eliud Campoverde MD Chest X-Ray 03/13/17 0000 Signed Impressions: Service Date/Time: Monday, March 13, 2017 08:07 - CONCLUSION: Suspected mild edema/failure. Adalid Perry MD Neck CT 03/10/17 0000 Signed Impressions: Service Date/Time: Friday, March 10, 2017 11:13 - CONCLUSION: 1. Patient is intubated which limits this study. The epiglottis is otherwise normal. Secretions are present in the oropharynx and right sphenoid sinus. Alex Monahan MD Brain MRI 03/02/17 0000 Signed Impressions: Service Date/Time: Thursday, March 02, 2017 17:07 - CONCLUSION: 1. Small acute or subacute cortical infarct of the left parietal lobe. 2. Small, faint area of nonspecific flair signal abnormality in the left frontal lobe periventricular white matter, nonspecific. No associated mass effect or abnormal enhancement. 3 month followup MRI of the brain recommended. 3. Mild chronic white matter changes. Adalid Perry MD Head CT 02/26/17 0000 Signed Impressions: Service Date/Time: Sunday, February 26, 2017 19:47 - CONCLUSION: No evidence of acute infarct, hemorrhage, mass or edema. Ken Sanchez MD Objective Remarks GENERAL: This is a well-nourished, well-developed patient, in no apparent distress. CARDIOVASCULAR: Regular rate and regular rhythm without murmurs, gallops, or rubs. RESPIRATORY: Clear to auscultation. Breath sounds equal bilaterally. No wheezes , rales, or rhonchi. GASTROINTESTINAL: Abdomen soft, non-tender, nondistended. Normal, active bowel sounds MUSCULOSKELETAL: Extremities without clubbing, cyanosis, or edema. NEURO: Alert & Oriented x4 to person, place, time, situation. Moves all ext x4 Procedures None Medications and IVs Current Medications Midazolam HCl 100 ml @ As Directed STK-MED ONCE .ROUTE ; Start 02/26/17 at 19: 36; Stop 02/26/17 at 19:37; Status DC Sodium Chloride 1,000 ml @ 70 mls/hr [id number] ONCE IV Last administered on 03/23 18:50; Start 02/26/17 at 19:35; Stop 02/27/17 at 09:52; Status DC Etomidate (Amidate Inj) 20 mg ONCE ONCE IV PUSH Last administered on 19:31; Start 02/26/17 at 19:45; Stop 02/26/17 at 19:46; Status DC Succinylcholine Chloride (Quelicin Inj) 100 mg ONCE ONCE IV PUSH Last administered on 02/26/17 19:45; Start 02/26/17 at 19:45; Stop 02/26/17 at 19:46 ; Status DC Sodium Chloride 1,000 ml @ 999 mls/hr BOLUS ONCE IV Last administered on 02/26 19:45; Start 02/26/17 at 19:45; Stop 02/26/17 at 20:45; Status DC Midazolam HCl (Versed Inj) 5 mg ONCE ONCE IV PUSH Last administered on 19:45; Start 02/26/17 at 19:45; Stop 02/26/17 at 19:46; Status DC Acetaminophen (Tylenol Supp) 650 mg ONCE ONCE RECTAL Last administered on 02/26 19:45; Start 02/26/17 at 19:45; Stop 02/26/17 at 19:46; Status DC Midazolam HCl (Versed Inj) 5 mg ONCE ONCE IV PUSH Last administered on 20:00; Start 02/26/17 at 20:00; Stop 02/26/17 at 20:01; Status DC Vecuronium [place] (Norcuron 10 Mg Inj) 10 mg ONCE ONCE IV PUSH Last administered on 02/26/17 20:00; Start 02/26/17 at 20:00; Stop 02/26/17 at 20:01 ; Status DC Vancomycin HCl 1000 mg/Sodium Chloride 250 ml @ 250 mls/hr ONCE ONCE IV ; Start 02/26/17 at 20:15; Stop 02/26/17 at 21:14; Status Cancel Ceftriaxone Sodium 2000 mg/ Sodium Chloride 100 ml @ 200 mls/hr ONCE ONCE IV Last administered on 02/26/17 20:15; Start 02/26/17 at 20:15; Stop 02/26/17 at 20:44; Status DC Sodium Chloride 1,000 ml @ 999 mls/hr BOLUS ONCE IV Last administered on 02/26 20:15; Start 02/26/17 at 20:15; Stop 02/26/17 at 21:15; Status DC Adenosine (Adenocard Inj) 12 mg ONCE ONCE IV PUSH Last administered on 20:15; Start 02/26/17 at 20:15; Stop 02/26/17 at 20:16; Status DC Propofol 100 ml @ 0 mls/hr TITRATE PRN IV Ordered RASS Last administered on 10:10; Start 02/26/17 at 20:15; Stop 03/04/17 at 20:06; Status DC Diltiazem HCl (Cardizem Inj) 20 mg ONCE ONCE IV Last administered on 20:30; Start 02/26/17 at 20:30; Stop 02/26/17 at 20:31; Status DC Ketorolac Tromethamine (Toradol Inj) 30 mg STK-MED ONCE .ROUTE ; Start 02/26/17 at 20:47; Stop 02/26/17 at 20:48; Status DC Ketorolac Tromethamine (Toradol Inj) 30 mg ONCE ONCE IV PUSH Last administered on 02/26/17 21:00; Start 02/26/17 at 21:00; Stop 02/26/17 at 21:02 ; Status DC Sodium Chloride 1,000 ml @ 999 mls/hr BOLUS ONCE IV Last administered on 02/26 21:00; Start 02/26/17 at 21:00; Stop 02/26/17 at 22:00; Status DC Acyclovir Sodium 1000 mg/Sodium Chloride 150 ml @ 150 mls/hr ONCE ONCE IV ; Start 02/26/17 at 21:15; Stop 02/26/17 at 22:14; Status DC Norepinephrine Bitartrate 250 ml @ 7.5 mls/hr TITRATE PRN IV Blood pressure management Last administered on 02/28/17 01:15; Start 02/26/17 at 21:30; Stop 03/07/17 at 12:30; Status DC Terbutaline Sulfate (Brethine Inj) 1 mg UNSCH PRN SQ For Extravasation; Start 02/26/17 at 21:30 Norepinephrine Bitartrate (Levophed Inj) 4 mg STK-MED ONCE .ROUTE ; Start at 21:17; Stop 02/26/17 at 21:18; Status DC Sodium Chloride (NS Flush) 2 ml UNSCH PRN .XX FLUSH AFTER USING IV ACCESS; Start 02/26/17 at 21:30; Stop 02/26/17 at 22:59; Status DC Sodium Chloride (NS Flush) 2 ml BID .XX ; Start 02/27/17 at 09:00; Stop at 09:00; Status DC Acetaminophen (Tylenol) 650 mg Q6H PRN PO FEVER >101F Last administered on 04/08 15:12; Start 02/26/17 at 21:30 Morphine Sulfate (Morphine Inj) 2 mg Q2H PRN IV PAIN SCALE 6 TO 10 Last administered on 03/13/17 11:12; Start 02/26/17 at 21:30; Stop 03/13/17 at 15:35; Status DC Famotidine (Pepcid Inj) 20 mg Q12HR IV PUSH Last administered on 03/12/17 19:59 ; Start 02/27/17 at 09:00; Stop 03/13/17 at 08:02; Status DC Midazolam HCl (Versed Inj) 2 mg Q1H PRN IV SEDATION; Start 02/26/17 at 21:30; Stop 02/27/17 at 13:03; Status DC Artificial Tears (Tears Naturale Opth Soln) 1 drop TID EACH EYE Last administered on 04/11/17 08:35; Start 02/27/17 at 09:00 Ondansetron HCl (Zofran Inj) 4 mg Q6H PRN IV NAUSEA OR VOMITING Last administered on 03/16/17 12:47; Start 02/26/17 at 21:30 Albuterol/ Ipratropium (Duoneb Neb) 1 ampule Q2HR NEB PRN INH WHEEZING Last administered on 03/13/17 07:35; Start 02/26/17 at 21:30 Heparin Sodium (Porcine) (Heparin Inj) 5,000 units Q12H SQ Last administered on 03/12/17 20:00; Start 02/26/17 at 22:00; Stop 03/13/17 at 08:03; Status DC Miscellaneous Information 1 [id number] Last administered on 02/26/17 21:30; Start 02/26/17 at 21:30 Chlorhexidine Gluconate (Chlorhexidine 2% Cloth) Taper DAILY@04 TOP Last administered on 03/05/17 00:07; Start 02/27/17 at 04:00; Stop 02/23/18 at 03:59 Chlorhexidine Gluconate (Chlorhexidine 2% Cloth) 3 pack UNSCH PRN TOP HYGIENIC CARE; Start 02/26/17 at 21:30 Senna/Docusate Sodium (Armida-Colace) 1 tab BID PO Last administered on 08:31; Start 02/27/17 at 09:00 Magnesium Hydroxide (Milk Of Magnesia Liq) 30 ml Q12H PRN PO MILD - MODERATE CONSTIPATION; Start 02/26/17 at 21:30 Sennosides (Senokot) 17.2 mg Q12H PRN PO MODERATE - SEVERE CONSTIPATION; Start 02/26/17 at 21:30 Bisacodyl (Dulcolax Supp) 10 mg DAILY PRN RECTAL SEVERE CONSITIPATION; Start at 21:30 Lactulose (Lactulose Liq) 30 ml DAILY PRN PO SEVERE CONSITIPATION; Start at 21:30 Sodium Chloride (NS Flush) 2 ml UNSCH PRN IV FLUSH FLUSH AFTER USING IV ACCESS Last administered on 04/02/17 04:36; Start 02/26/17 at 22:45 Sodium Chloride (NS Flush) 2 ml BID IV FLUSH Last administered on 04/11/17 08: 35; Start 02/27/17 at 09:00 Ceftriaxone Sodium 2000 mg/ Sodium Chloride 100 ml @ 200 mls/hr Q12H IV Last administered on 02/28/17 08:00; Start 02/27/17 at 08:00; Stop 02/28/17 at 18:22 ; Status DC Pharmacy Profile Note 0 ml @ 0 mls/hr UNSCH OTHER ; Start 02/26/17 at 22:45; Stop 02/27/17 at 15:32; Status DC Acyclovir Sodium 1050 mg/Sodium Chloride 150 ml @ 150 mls/hr Q8H IV Last administered on 02/27/17 09:54; Start 02/27/17 at 01:00; Stop 02/27/17 at 15:32 ; Status DC Amphotericin B Liposome 340 mg/ Dextrose 250 ml @ 125 mls/hr Q24H IV ; Start at 23:45; Stop 02/27/17 at 00:37; Status DC Sodium Chloride 1,000 ml @ 1,000 mls/hr Q1H ONCE IV Last administered on 22:20; Start 02/26/17 at 22:33; Stop 02/26/17 at 23:32; Status DC Sodium Chloride 1,000 ml @ 1,000 mls/hr Q1H ONCE IV Last administered on 23:20; Start 02/26/17 at 22:33; Stop 02/26/17 at 23:32; Status DC Sodium Chloride 100 ml @ 1,000 mls/hr Q6M ONCE IV Last administered on 22:33; Start 02/26/17 at 22:33; Stop 02/26/17 at 22:42; Status DC Vancomycin HCl 2000 mg/Sodium Chloride 520 ml @ 250 mls/hr ONCE ONCE IV Last administered on 02/27/17 01:15; Start 02/27/17 at 01:00; Stop 02/27/17 at 03:04 ; Status DC Amphotericin B Liposome 340 mg/ Dextrose 250 ml @ 125 mls/hr Q24H IV ; Start at 00:45; Status Cancel Amphotericin B Liposome 340 mg/ Dextrose 250 ml @ 125 mls/hr Q24H IV Last administered on 02/27/17 02:00; Start 02/27/17 at 02:00; Stop 02/27/17 at 21:57 ; Status DC Potassium Chloride 100 ml @ 50 mls/hr Q2H PRN IV For Potassium 2.8 - 3.2 mEq/ L Last administered on 03/08/17 08:06; Start 02/27/17 at 06:00; Stop 03/13/17 at 17:47; Status DC Potassium Chloride 100 ml @ 50 mls/hr Q2H PRN IV For Potassium 2.8 - 3.2 mEq/ L Last administered on 03/03/17 13:04; Start 02/27/17 at 06:00; Stop 03/13/17 at 17:47; Status DC Potassium Bicarb/ Potassium Chloride (K-Lyte Cl Eff) 50 meq UNSCH PRN PO For Potassium 3.3 - 3.5 mEq/L Last administered on 03/11/17 08:10; Start 02/27/17 at 06:00; Stop 03/13/17 at 17:47; Status DC Potassium Chloride 100 ml @ 25 mls/hr UNSCH PRN IV For Potassium 3.3 - 3.5 mEq /L Last administered on 03/12/17 06:10; Start 02/27/17 at 06:00; Stop 03/13/17 at 17:47; Status DC Potassium Chloride 100 ml @ 50 mls/hr Q2H PRN IV For Potassium 3.3 - 3.5 mEq/ L Last administered on 03/10/17 12:32; Start 02/27/17 at 06:00; Stop 03/13/17 at 17:47; Status DC Magnesium Sulfate 4 gm/Sodium Chloride 100 ml @ 50 mls/hr UNSCH PRN IV For Magnesium 0.9 - 1.1 mg/dL; Start 02/27/17 at 06:00; Stop 03/07/17 at 12:30; Status DC Magnesium Oxide (Mag-Ox) 800 mg UNSCH PRN PO For Magnesium 1.2 - 1.6 mg/dL; Start 02/27/17 at 06:00; Stop 03/07/17 at 12:31; Status DC Magnesium Sulfate 2 gm/Sodium Chloride 100 ml @ 50 mls/hr UNSCH PRN IV For Magnesium 1.2 - 1.6 mg/dL Last administered on 03/02/17 09:45; Start 02/27/17 at 06:00; Stop 03/07/17 at 12:31; Status DC Potassium Phosphate (K-Phos) 2,000 mg Q4H PRN PO For Phosphorus < 2.5 mg/dL; Start 02/27/17 at 06:00; Stop 03/13/17 at 17:47; Status DC Sodium Phosphate 30 mmol/Sodium Chloride 250 ml @ 42 mls/hr UNSCH PRN IV For Phosphorus < 2.5 mg/dL; Start 02/27/17 at 06:00; Stop 03/13/17 at 17:47; Status DC Potassium Phosphate (K-Phos) 2,000 mg UNSCH PRN PO/TUBE SEE LABEL COMMENTS; Start 02/27/17 at 06:00; Stop 03/13/17 at 17:47; Status DC Potassium Phosphate 30 mmol/ Sodium Chloride 260 ml @ 42 mls/hr UNSCH PRN IV SEE LABEL COMMENTS; Start 02/27/17 at 06:00; Stop 03/13/17 at 17:47; Status DC Midazolam HCl 100 ml @ 2 mls/hr TITRATE PRN IV SEDATION Last administered on 07:54; Start 02/27/17 at 07:00; Stop 02/27/17 at 13:03; Status DC Vancomycin HCl 1500 mg/Sodium Chloride 515 ml @ 250 mls/hr Q18H IV ; Start at 21:00; Stop 02/27/17 at 21:00; Status DC Miscellaneous Information SPECIFIC LAB TO BE DRAWN:VANCOMYCIN TROUGH DATE TO... ONCE ONCE .XX ; Start 03/01/17 at 08:45; Stop 03/01/17 at 08:46; Status Cancel Fentanyl Citrate 250 ml @ 0 mls/hr TITRATE IV Last administered on 02/27/17 14 :38; Start 02/27/17 at 13:00; Stop 03/01/17 at 14:33; Status DC Dextrose (D50w (Vial) Inj) 25 ml UNSCH PRN IV PUSH HYPOGLYCEMIA-SEE COMMENTS; Start 02/27/17 at 13:00; Stop 03/07/17 at 20:43; Status DC Insulin Human Regular (NovoLIN R SUPPLEMENTAL SCALE) 1 Q6HR SQ ; Start 02/27/17 at 18:00; Stop 03/07/17 at 20:43; Status DC Oxacillin Sodium 2 gm/Sodium Chloride 100 ml @ 200 mls/hr Q4H IV Last administered on 04/11/17 05:57; Start 02/27/17 at 18:00 Pharmacy Profile Note 0 ml @ 0 mls/hr UNSCH OTHER ; Start 02/27/17 at 15:30 Fluconazole/ Sodium Chloride 400 ml @ 100 mls/hr Q24H IV ; Start 02/27/17 at 18 :00; Stop 02/27/17 at 18:00; Status DC Rifampin 300 mg/ Sodium Chloride 100 ml @ 100 mls/hr Q12H IV Last administered on 03/08/17 07:58; Start 02/27/17 at 21:00; Stop 03/08/17 at 14:31 ; Status DC Gentamicin Sulfate/Sodium Chloride 100 ml @ 200 mls/hr Q8H IV Last administered on 02/28/17 10:13; Start 02/27/17 at 18:00; Stop 02/28/17 at 14:36 ; Status DC Miscellaneous Information SPECIFIC LAB TO BE DRAWN:GENTAMICIN TROUGH DATE TO... ONCE ONCE .XX Last administered on 02/28/17 09:50; Start 02/28/17 at 09:45; Stop 02/28/17 at 10:04; Status DC Miscellaneous Information SPECIFIC LAB TO BE DRAWN:GENTAMICIN PEAK DATE TO... ONCE ONCE .XX Last administered on 02/28/17 11:45; Start 02/28/17 at 11:30; Stop 02/28/17 at 11:31; Status DC Fluconazole/ Sodium Chloride 400 ml @ 200 mls/hr Q24H IV ; Start 02/27/17 at 19 :00; Stop 02/27/17 at 19:00; Status DC Fluconazole/ Sodium Chloride 200 ml @ 100 mls/hr Q24H IV ; Start 02/27/17 at 18 :00; Stop 02/27/17 at 18:00; Status DC Fluconazole/ Sodium Chloride 200 ml @ 100 mls/hr Q24H IV Last administered on 03/03/17 20:37; Start 02/27/17 at 20:00; Stop 03/04/17 at 18:11; Status DC Fluconazole/ Sodium Chloride 200 ml @ 100 mls/hr Q24H IV Last administered on 03/03/17 22:43; Start 02/27/17 at 22:00; Stop 03/04/17 at 18:11; Status DC Amphotericin B Liposome 340 mg/ Dextrose 235 ml @ 117.5 mls/ hr Q24H IV Last administered on 02/28/17 02:14; Start 02/28/17 at 02:00; Stop 02/28/17 at 18:22 ; Status DC Bumetanide (Bumex Inj) 1 mg DAILY IV PUSH Last administered on 03/07/17 09:51 ; Start 02/28/17 at 10:30; Stop 03/07/17 at 12:31; Status DC Gentamicin Sulfate 100 mg/ Sodium Chloride 102.5 ml @ 200 mls/hr Q12H IV Last administered on 03/02/17 12:13; Start 03/01/17 at 00:00; Stop 03/02/17 at 13:07 ; Status DC Miscellaneous Information SPECIFIC LAB TO BE DRAWN:GENTAMICIN TROUGH DATE TO... ONCE ONCE .XX Last administered on 03/02/17 11:45; Start 03/02/17 at 11:45; Stop 03/02/17 at 11:46; Status DC Bumetanide (Bumex Inj) 1 mg NOW ONCE IV PUSH Last administered on 03/01/17 11 :20; Start 03/01/17 at 09:45; Stop 03/01/17 at 10:22; Status DC Bumetanide 100 ml @ 2 mls/hr Q24H IV Last administered on 03/02/17 18:43; Start 03/01/17 at 12:45; Stop 03/03/17 at 10:57; Status DC Ampicillin Sodium 2000 mg/Sodium Chloride 100 ml @ 400 mls/hr Q4H IV Last administered on 04/11/17 08:31; Start 03/01/17 at 13:00 Fentanyl Citrate 250 ml @ 0 mls/hr TITRATE IV ; Start 03/01/17 at 14:45; Stop at 15:53; Status DC Fentanyl Citrate 250 ml @ 2.5 mls/hr TITRATE IV Last administered on 18:40; Start 03/01/17 at 16:00; Stop 03/08/17 at 18:04; Status DC Gentamicin Sulfate/Sodium Chloride 100 ml @ 200 mls/hr Q12H IV Last administered on 03/28/17 12:49; Start 03/03/17 at 00:00; Stop 03/28/17 at 14:04 ; Status DC Miscellaneous Information SPECIFIC LAB TO BE MELISSA... ONCE ONCE .XX Last administered on 03/04/17 11:45; Start 03/04/17 at 11:45; Stop 03/04/17 at 11:46 ; Status DC Gadodiamide (Omniscan Pf Inj) 20 ml STK-MED ONCE IVCONTRAST Last administered on 03/02/17 17:25; Start 03/02/17 at 17:25; Stop 03/02/17 at 17:26; Status DC Metoprolol Tartrate (Lopressor Inj) 5 mg STK-MED ONCE .ROUTE Last administered on 03/03/17 10:58; Start 03/03/17 at 10:29; Stop 03/03/17 at 10:30; Status DC Diltiazem HCl (Cardizem Inj) 20 mg ONCE ONCE IV PUSH ; Start 03/03/17 at 10:30 ; Stop 03/03/17 at 10:40; Status DC Diltiazem HCl 125 mg/Sodium Chloride 125 ml @ 5 mls/hr TITRATE PRN IV Tachycardia; Start 03/03/17 at 10:30; Stop 03/07/17 at 12:31; Status DC Diltiazem HCl (Cardizem Inj) 20 mg UNSCH X1 PRN IV PUSH SEE LABEL COMMENTS; Start 03/03/17 at 11:00; Stop 03/03/17 at 13:00; Status DC Metoprolol Tartrate (Lopressor Inj) 2.5 mg Q6H PRN IV PUSH Heart rate > 100BPM Last administered on 03/07/17 18:55; Start 03/03/17 at 11:00; Stop 03/13/17 at 17:46; Status DC Acetaminophen (Ofirmev 1000 Mg/ 100 ml Inj) 1,000 mg Q6H PRN IV PAIN SCALE 6 TO 8 Last administered on 03/10/17 13:57; Start 03/03/17 at 11:00; Stop 03/13/17 at 08:02; Status DC Midazolam HCl 100 ml @ 2 mls/hr TITRATE PRN IV SEDATION Last administered on 20:23; Start 03/04/17 at 09:30; Stop 03/11/17 at 10:28; Status DC Dexmedetomidine HCl 200 mcg/ Sodium Chloride 52 ml @ 5.28 mls/hr Q9H51M PRN IV SEDATION Last administered on 03/06/17 21:33; Start 03/05/17 at 10:29; Stop 03/11/17 at 09:04; Status DC Water (Free Water) VOLUME: 300 ML Q8HR G-TUBE Last administered on 03/11/17 04: 26; Start 03/06/17 at 14:00; Stop 03/11/17 at 08:00; Status DC Sodium Chloride 38.5 meq/Sterile Water 1,009.625 ml @ 84 mls/hr Q12H2M IV Last administered on 03/08/17 01:09; Start 03/07/17 at 14:00; Stop 03/08/17 at 14:02 ; Status DC Potassium Chloride (KCl Powder) 20 meq ONCE ONCE PO Last administered on 15:02; Start 03/07/17 at 12:45; Stop 03/07/17 at 13:07; Status DC Etomidate (Amidate Inj) 20 mg STK-MED ONCE .ROUTE ; Start 03/07/17 at 18:15; Stop 03/07/17 at 18:16; Status DC Dexamethasone Sodium Phosphate (Decadron Inj) 4 mg Q8HR IV PUSH Last administered on 03/10/17 05:50; Start 03/08/17 at 14:00; Stop 03/10/17 at 13:59; Status DC Rifampin (Rifampin) 300 mg Q12HR PO Last administered on 04/11/17 08:31; Start 03/08/17 at 21:00 Fentanyl Citrate 250 ml @ 5 mls/hr TITRATE PRN IV Sedation Last administered on 03/10/17 20:23; Start 03/08/17 at 18:15; Stop 03/11/17 at 10:28; Status DC Potassium Chloride 100 ml @ 50 mls/hr BOLUS ONCE IV Last administered on 14:05; Start 03/09/17 at 12:00; Stop 03/09/17 at 13:59; Status DC Albuterol/ Ipratropium (Duoneb Neb) 1 ampule Q6HR NEB NEB Last administered on 03/13/17 05:25; Start 03/09/17 at 16:00; Stop 03/13/17 at 07:34; Status DC Methadone HCl (Methadone Liq) 5 mg ONCE ONCE NG Last administered on 23:07; Start 03/09/17 at 23:00; Stop 03/09/17 at 23:01; Status DC Potassium Chloride (KCl Powder) 20 meq ONCE ONCE PO Last administered on 08:15; Start 03/11/17 at 08:15; Stop 03/11/17 at 08:16; Status DC Potassium Chloride 100 ml @ 25 mls/hr BOLUS ONCE IV Last administered on 09:22; Start 03/11/17 at 08:15; Stop 03/11/17 at 12:14; Status DC Water (Free Water) VOLUME: 300 ML Q6HR G-TUBE Last administered on 03/12/17 05: 35; Start 03/11/17 at 12:00; Stop 03/12/17 at 09:30; Status DC Methadone HCl (Methadone Liq) 10 mg Q12HR PO Last administered on 03/13/17 08: 47; Start 03/11/17 at 10:00; Stop 03/13/17 at 15:35; Status DC Dexmedetomidine HCl 200 mcg/ Sodium Chloride 52 ml @ 5.44 mls/hr TITRATE PRN IV SEDATION Last administered on 03/12/17 05:40; Start 03/11/17 at 09:00; Stop at 08:02; Status DC Racepinephrine (Racepinephrine 2.25% Neb) 0.5 ml ONCE ONCE NEB Last administered on 03/12/17 01:59; Start 03/12/17 at 01:45; Stop 03/12/17 at 01:51; Status DC Racepinephrine (Racepinephrine 2.25% Neb) 0.5 ml ONCE PRN NEB STRIDOR; Start at 01:45; Stop 03/13/17 at 01:44; Status DC Albuterol/ Ipratropium (Duoneb Neb) 1 ampule Q6HR NEB NEB Last administered on 03/15/17 22:04; Start 03/13/17 at 10:00; Stop 03/17/17 at 09:59; Status DC Famotidine (Pepcid) 20 mg BID PO Last administered on 04/11/17 08:31; Start at 09:00 Heparin Sodium (Porcine) (Heparin Inj) 5,000 units Q8H SQ Last administered on 03/29/17 18:50; Start 03/13/17 at 10:00 Furosemide (Lasix) 20 mg DAILY PO Last administered on 03/15/17 09:03; Start at 09:00; Stop 03/15/17 at 15:54; Status DC Potassium Chloride (KCl) 20 meq DAILY PO Last administered on 04/11/17 08:32; Start 03/13/17 at 09:00 Miscellaneous Information SPECIFIC LAB TO BE DRAWN:GENTAMICIN TROUGH DATE TO... ONCE ONCE .XX ; Start 03/14/17 at 11:45; Stop 03/14/17 at 11:46; Status DC Methadone HCl (Methadone Liq) 20 mg Q12HR PO Last administered on 03/23/17 09 :03; Start 03/13/17 at 21:00; Stop 03/23/17 at 17:25; Status DC Morphine Sulfate (Morphine Inj) 3 mg Q3H PRN IV PAIN SCALE 6 TO 10 Last administered on 04/02/17 11:14; Start 03/13/17 at 15:45; Stop 04/02/17 at 11:51 ; Status DC Miscellaneous Information SPECIFIC LAB TO BE DRAWN:GENTAMICIN TROUGH DATE TO... ONCE ONCE .XX Last administered on 03/15/17 13:18; Start 03/15/17 at 11:45; Stop 03/15/17 at 11:46; Status DC Acetaminophen (Tylenol) 650 mg Q4H PRN PO HEADACHE; Start 03/15/17 at 16:00; Stop 03/15/17 at 16:00; Status DC Acetaminophen (Tylenol) 1,000 mg Q4H PRN PO HEADACHE Last administered on 15:37; Start 03/15/17 at 16:00 Furosemide (Lasix) 40 mg DAILY PO Last administered on 04/11/17 08:32; Start 03/16/17 at 09:00 Furosemide (Lasix) 20 mg ONCE ONCE PO Last administered on 03/15/17 16:55; Start 03/15/17 at 16:00; Stop 03/15/17 at 16:04; Status DC Diatrizoate Meglum/ Diatrizoate Sod ( Gastroview Liq) 18 ml ONCE ONCE PO Last administered on 03/16/17 16:17; Start 03/16/17 at 16:00; Stop 03/16/17 at 16: 01; Status DC Iohexol (Omnipaque 350 Inj) 95 ml STK-MED ONCE IVCONTRAST Last administered on 03/16/17 20:45; Start 03/16/17 at 20:45; Stop 03/16/17 at 20:46; Status DC Furosemide (Lasix Inj) 40 mg ONCE ONCE IV PUSH Last administered on 03/18/17 18:15; Start 03/18/17 at 16:45; Stop 03/18/17 at 17:37; Status DC Potassium Chloride (KCl) 80 meq ONCE ONCE PO ; Start 03/18/17 at 16:45; Stop at 16:46; Status UNV Potassium Chloride (KCl) 60 meq ONCE ONCE PO Last administered on 03/18/17 19 :58; Start 03/18/17 at 18:45; Stop 03/18/17 at 18:46; Status DC Furosemide (Lasix Inj) 40 mg ONCE ONCE IV PUSH Last administered on 03/19/17 16:55; Start 03/19/17 at 16:00; Stop 03/19/17 at 16:01; Status DC Loperamide HCl (Imodium) 2 mg UNSCH PRN PO DIARRHEA; Start 03/20/17 at 10:45 Furosemide (Lasix Inj) 40 mg ONCE ONCE IV PUSH Last administered on 03/20/17 11:08; Start 03/20/17 at 10:45; Stop 03/20/17 at 10:46; Status DC Furosemide (Lasix Inj) 40 mg ONCE ONCE IV PUSH Last administered on 03/21/17 17:46; Start 03/21/17 at 17:30; Stop 03/21/17 at 17:31; Status DC Potassium Chloride (KCl) 40 meq ONCE ONCE PO Last administered on 03/21/17 17 :47; Start 03/21/17 at 17:30; Stop 03/21/17 at 17:31; Status DC Miscellaneous Information SPECIFIC LAB TO BE MELISSA... ONCE ONCE .XX Last administered on 03/23/17 23:45; Start 03/23/17 at 23:45; Stop 03/23/17 at 23:46 ; Status DC Methadone HCl (Methadone Liq) 25 mg Q12HR PO Last administered on 04/10/17 08 :45; Start 03/23/17 at 21:00; Stop 04/10/17 at 11:15; Status DC Gentamicin Sulfate 80 mg/ Sodium Chloride 102 ml @ 204 mls/hr Q12H IV ; Start 03/27/17 at 00:00; Stop 03/27/17 at 00:00; Status DC Miscellaneous Information SPECIFIC LAB TO BE DRAWN:GENTAMICIN TROUGH DATE TO... ONCE ONCE .XX Last administered on 03/28/17 11:45; Start 03/28/17 at 11:45; Stop 03/28/17 at 11:46; Status DC Gentamicin Sulfate/Sodium Chloride 100 ml @ 200 mls/hr Q18H IV Last administered on 04/11/17 01:30; Start 03/29/17 at 06:00 Miscellaneous Information SPECIFIC LAB TO BE DRAWN:GENTAMICIN TROUGH DATE TO... ONCE ONCE .XX Last administered on 03/31/17 13:00; Start 03/31/17 at 11:45; Stop 03/31/17 at 11:46; Status DC Morphine Sulfate (Roxanol Liq) 10 mg Q3H PRN PO pain 6-10 Last administered on 04/11/17 08:37; Start 04/02/17 at 12:00 Morphine Sulfate (Roxanol Liq) 5 mg Q3H PRN PO pain 1-5; Start 04/02/17 at 12: 00 Miscellaneous Information SPECIFIC LAB TO BE DRAWN:GENTAMICIN TROUGH DATE TO... 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 Stop date for antibiotics 04/12/17 Continue current treatment Supraventricular tachycardia-resolved Echocardiogram revealed an ejection fraction showed 25-30%. Continue metoprolol. Acute hypoxemic respiratory failure Resolved Continue DuoNeb treatments. Maintain oxygen saturation above 92% CVA (cerebral vascular accident) CT head negative, MRI small acute and subacute cortical infarct of the left parietal lobe. taper down methadone 5 mg twice daily. Appreciate input from neurology who signed off PT to treat and eval Tricuspid regurgitation Continue oral Lasix. Acute systolic heart failure continue Lasix 40 mg po daily. Acute kidney injury) Now resolved. Protein calorie malnutrition Secondary to long-standing IV drug abuse and endocarditis. Microcytic anemia Continue with oral iron sulfate. Monitor H&H IV drug abuse Advised cessation. Currently on methadone. Diarrhea, resolved C diff. is negative Continue probiotic. Anasarca. Improved Continue Lasix po. Discharge Planning patient was on hospice before and would like to go back to hospice upon discharge; hospice consulted. dc home towards the end of the week if stable. Winnie Perrin MD Apr 11, 2017 09:48
--- NOTE | 2017-04-11 15:01 | HHI.PR ---
Addendum to Inpatient Note Additional Information pt seen around 1330 full note to follow better co BLE edema on exam: + murmur, no nystagmus trace BLE edema Anticipate to complete IV abx tomorrow and start oral chronic suppression tx will need fu as o/p dw case mngr dw PCP Swati Spaulding MD Apr 11, 2017 15:01
--- NOTE | 2017-04-11 23:45 | HHI.IDPN ---
Subjective Subjective Remarks delayed entry pt seen around 1330 pt is doing better co BLE edema afebrile denies tinnitus or hearing problems Antibiotics ampicillin oxacillin gent rifampin Allergies: Coded Allergies: No Known Allergies (Verified , 09/01/15) Objective . Vital Signs Date Time Temp Pulse Resp B/P (MAP) Pulse Ox O2 Delivery O2 Flow Rate FiO2 04/11/17 20:00 98.2 82 18 118/83 (95) 99 04/11/17 16:00 98.4 83 20 121/82 (95) 98 04/11/17 12:00 99.0 86 20 131/92 (105) 100 04/11/17 11:16 98 04/11/17 08:00 96 Room Air 21 04/11/17 08:00 98.6 78 18 119/78 (92) 98 04/11/17 08:00 76 04/11/17 04:00 98.4 79 18 109/69 (82) 100 04/11/17 00:00 98.5 81 20 120/77 (91) 99 04/11/17 04/11/17 04/12/17 15:00 23:00 07:00 Intake Total 300 ml 1120 ml Balance 300 ml 1120 ml Intake Oral 720 ml IV Total 300 ml 400 ml # Voids 4 # Bowel Movements 1 . Laboratory Tests Test 04/10/17 14:00 White Blood Count 7.0 TH/MM3 Red Blood Count 3.91 MIL/MM3 Hemoglobin 9.9 GM/DL Hematocrit 30.4 % Mean Corpuscular Volume 77.9 FL Mean Corpuscular Hemoglobin 25.2 PG Mean Corpuscular Hemoglobin Concent 32.4 % Red Cell Distribution Width 19.9 % Platelet Count 322 TH/MM3 Mean Platelet Volume 7.9 FL Neutrophils (%) (Auto) 61.8 % Lymphocytes (%) (Auto) 25.8 % Monocytes (%) (Auto) 7.1 % Eosinophils (%) (Auto) 4.1 % Basophils (%) (Auto) 1.2 % Neutrophils # (Auto) 4.3 TH/MM3 Lymphocytes # (Auto) 1.8 TH/MM3 Monocytes # (Auto) 0.5 TH/MM3 Eosinophils # (Auto) 0.3 TH/MM3 Basophils # (Auto) 0.1 TH/MM3 CBC Comment DIFF FINAL Differential Comment Laboratory Tests Test 04/10/17 14:00 Blood Urea Nitrogen 9 MG/DL Creatinine 1.15 MG/DL Random Glucose 125 MG/DL Total Protein 8.1 GM/DL Albumin 3.0 GM/DL Calcium Level 9.5 MG/DL Alkaline Phosphatase 103 U/L Aspartate Amino Transf (AST/SGOT) 14 U/L Alanine Aminotransferase (ALT/SGPT) 14 U/L Total Bilirubin 0.2 MG/DL Sodium Level 137 MEQ/L Potassium Level 3.2 MEQ/L Chloride Level 102 MEQ/L Carbon Dioxide Level 25.7 MEQ/L Anion Gap 9 MEQ/L Estimat Glomerular Filtration Rate 54 ML/MIN Imaging Last Impressions Abdomen CT 03/16/17 0000 Signed Impressions: Service Date/Time: Thursday, March 16, 2017 20:26 - CONCLUSION: 1. Peripheral low attenuation lesions in the spleen most characteristic of multiple splenic infarcts. Some of these are new findings since 2016 comparison. 2. Minimal subsegmental airspace disease at the lung bases. 3. 3.4 cm right adnexal cyst. Intrauterine device present. 4. Small fat containing ventral hernias. Eliud Campoverde MD Chest X-Ray 03/13/17 0000 Signed Impressions: Service Date/Time: Monday, March 13, 2017 08:07 - CONCLUSION: Suspected mild edema/failure. Adalid Perry MD Neck CT 03/10/17 0000 Signed Impressions: Service Date/Time: Friday, March 10, 2017 11:13 - CONCLUSION: 1. Patient is intubated which limits this study. The epiglottis is otherwise normal. Secretions are present in the oropharynx and right sphenoid sinus. Alex Monahan MD Brain MRI 03/02/17 0000 Signed Impressions: Service Date/Time: Thursday, March 02, 2017 17:07 - CONCLUSION: 1. Small acute or subacute cortical infarct of the left parietal lobe. 2. Small, faint area of nonspecific flair signal abnormality in the left frontal lobe periventricular white matter, nonspecific. No associated mass effect or abnormal enhancement. 3 month followup MRI of the brain recommended. 3. Mild chronic white matter changes. Adalid Perry MD Head CT 02/26/17 0000 Signed Impressions: Service Date/Time: Sunday, February 26, 2017 19:47 - CONCLUSION: No evidence of acute infarct, hemorrhage, mass or edema. Ken Sanchez MD Physical Exam CONSTITUTIONAL/GENERAL: awake alert, , in no apparent distress. TUBES/LINES/DRAINS: SKIN: No jaundice, rashes, or lesions. Skin temperature appropriate. Not diaphoretic. multiple embolic lesions cw septic embolization involving L lower leg and both feet - resolved EYES: No nystagmus Hearing OK CARDIOVASCULAR: Regular rate and rhythm w + 2-3 systo,ic murmur no gallops, or rubs. Mechanical heart sounds No JVD. Peripheral pulses symmetric. RESPIRATORY/CHEST: Symmetric, unlabored respirations. Clear to auscultation. Breath sounds equal bilaterally. GASTROINTESTINAL: Abdomen soft, non-tender, moderately distended. No hepato- splenomegaly, or palpable masses. No guarding. Bowel sounds present, hypoactive GENITOURINARY: Without palpable bladder distension. Watson catheter in place with clear yellow urine MUSCULOSKELETAL: Extremities without clubbing, trace BLE edema NEUROLOGICAL fully awake and communicates Grossly non focal PSYCHIATRIC: calm and cooperative Assessment & Plan Remarks Recurrent prosthetic valve endocarditis , PVE due to MSSA, Ent fecalis S amp/ gent - pt was previously infected with above organisms Previousy multiple episodes of PVE dw Dr Botello hospitalised in October 2016 for tricuspid valve PVE - [place] parapsolosis (September 20 thru October 21) , Streptoccii pt was Rx with combination diflucan 800 + micafungin 150, and was also on ambisionme at some point x 2 weeks and did not clear 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 cardiac injury from infx - cont oxacillin + gentamin +RIfampin - complete abx 04/12 will start oral chronic suppression tx will need fu as o/p dw case mngr dw Swati Zurita MD Apr 11, 2017 23:45
[2017-04-12] VITALS: BP 116/80; PULSE 83; RESP 18; TEMP 98.5; O2SAT 97
[2017-04-12] MEDS: MORPHINE SULFATE ORAL SOLN 10 MG/0.5 ML SYRINGE PO PRN ×5 (00:52→14:38)
[2017-04-12] MEDS: AMPICILLIN INJ 2,000 MG in SODIUM CHLORIDE 0.9% INJ 100 ML IV SCH ×3 (00:54→08:34)
[2017-04-12] MEDS: HEPARIN SODIUM - SQ 10,000 UNITS/ML VIAL SQ SCH ×2 (00:55→10:00)
[2017-04-12] MEDS: OXACILLIN INJ 2 GM in SODIUM CHLORIDE 0.9% INJ 100 ML IV SCH ×3 (01:20→10:02)
[2017-04-12 04:00] VITALS: BP 107/81; PULSE 82; RESP 18; TEMP 97.3; O2SAT 96
[2017-04-12] MEDS: CHLORHEXIDINE GLUCONATE 2 % 1 PACK (2 CLOTHS) TOP SCH (04:00)
[2017-04-12 08:00] VITALS: BP 109/66; PULSE 77; RESP 18; TEMP 98.2; O2SAT 97
[2017-04-12] MEDS: POTASSIUM CHLORIDE 20 MEQ CONTROLLED RELEASE TAB PO SCH (08:32)
[2017-04-12] MEDS: RIFAMPIN 150 MG CAP PO SCH (08:32)
[2017-04-12] MEDS: FUROSEMIDE 20 MG TAB PO SCH (08:32)
[2017-04-12] MEDS: METHADONE HCL 10 MG/10 ML ORAL SOLUTION PO SCH (08:34)
[2017-04-12] MEDS: FAMOTIDINE 20 MG TAB PO SCH (09:00)
[2017-04-12] MEDS: DOCUSATE SODIUM 50 MG/SENNA 8.6 MG TAB PO SCH (09:00)
[2017-04-12 09:02] LABS: AUTOMATED NEUTROPHIL # 3.9 TH/MM3 (1.8-7.7); BASOPHIL # 0.1 TH/MM3 (0-0.2); BASOPHIL % 1.1 % (0.0-2.0); EOSINOPHIL # 0.2 TH/MM3 (0-0.4); EOSINOPHIL % 3.4 % (0.0-4.0); HEMO FLAGS DIFF FINAL; LYMPH % 26.8 % (9.0-44.0); LYMPHOCYTE # 1.8 TH/MM3 (1.0-4.8); MEAN CELL VOLUME 76.3 FL (80.0-100.0); MEAN CORPUSCULAR HEMOGLOBIN 25.1 PG (27.0-34.0); MEAN CORPUSCULAR HGB CONC 32.9 % (32.0-36.0); MONO % 9.1 % (0.0-8.0); NEUT % 59.6 % (16.0-70.0); PLATELET COUNT 310 TH/MM3 (150-450); RED BLOOD COUNT 3.93 MIL/MM3 (4.00-5.30); RED CELL DISTRIBUTION WIDTH 20.5 % (11.6-17.2); WHITE BLOOD COUNT 6.6 TH/MM3 (4.0-11.0)
--- NOTE | 2017-04-12 09:18 | HHI.PR ---
Subjective Remarks in no acute distress. afebrile. still with some on and off pleuritic chest pain. no other complaints. Objective Vitals Vital Signs Date Time Temp Pulse Resp B/P (MAP) Pulse Ox O2 Delivery O2 Flow Rate FiO2 04/12/17 08:00 98.2 77 18 109/66 (80) 97 04/12/17 04:00 97.3 82 18 107/81 (90) 96 04/12/17 00:00 98.5 83 18 116/80 (92) 97 04/11/17 20:00 98.2 82 18 118/83 (95) 99 04/11/17 20:00 Room Air 04/11/17 16:00 98.4 83 20 121/82 (95) 98 04/11/17 12:00 99.0 86 20 131/92 (105) 100 04/11/17 11:16 98 I/O 04/11/17 04/11/17 04/11/17 04/12/17 04/12/17 04/12/17 07:00 15:00 23:00 07:00 15:00 23:00 Intake Total 500 ml 300 ml 1220 ml 600 ml Balance 500 ml 300 ml 1220 ml 600 ml Intake Oral 720 ml 200 ml IV Total 500 ml 300 ml 500 ml 400 ml # Voids 3 4 3 # Bowel Movements 1 Result Diagram: 04/12/17 0819 04/10/17 1400 Imaging Last Impressions Abdomen CT 03/16/17 0000 Signed Impressions: Service Date/Time: Thursday, March 16, 2017 20:26 - CONCLUSION: 1. Peripheral low attenuation lesions in the spleen most characteristic of multiple splenic infarcts. Some of these are new findings since 2016 comparison. 2. Minimal subsegmental airspace disease at the lung bases. 3. 3.4 cm right adnexal cyst. Intrauterine device present. 4. Small fat containing ventral hernias. Eliud Campoverde MD Chest X-Ray 03/13/17 0000 Signed Impressions: Service Date/Time: Monday, March 13, 2017 08:07 - CONCLUSION: Suspected mild edema/failure. Adalid Perry MD Neck CT 03/10/17 0000 Signed Impressions: Service Date/Time: Friday, March 10, 2017 11:13 - CONCLUSION: 1. Patient is intubated which limits this study. The epiglottis is otherwise normal. Secretions are present in the oropharynx and right sphenoid sinus. Alex Monahan MD Brain MRI 03/02/17 0000 Signed Impressions: Service Date/Time: Thursday, March 02, 2017 17:07 - CONCLUSION: 1. Small acute or subacute cortical infarct of the left parietal lobe. 2. Small, faint area of nonspecific flair signal abnormality in the left frontal lobe periventricular white matter, nonspecific. No associated mass effect or abnormal enhancement. 3 month followup MRI of the brain recommended. 3. Mild chronic white matter changes. Adalid Perry MD Head CT 02/26/17 0000 Signed Impressions: Service Date/Time: Sunday, February 26, 2017 19:47 - CONCLUSION: No evidence of acute infarct, hemorrhage, mass or edema. Ken Sanchez MD Objective Remarks GENERAL: This is a well-nourished, well-developed patient, in no apparent distress. CARDIOVASCULAR: Regular rate and regular rhythm without murmurs, gallops, or rubs. RESPIRATORY: Clear to auscultation. Breath sounds equal bilaterally. No wheezes , rales, or rhonchi. GASTROINTESTINAL: Abdomen soft, non-tender, nondistended. Normal, active bowel sounds MUSCULOSKELETAL: Extremities without clubbing, cyanosis, or edema. NEURO: Alert & Oriented x4 to person, place, time, situation. Moves all ext x4 Procedures None Medications and IVs Current Medications Midazolam HCl 100 ml @ As Directed STK-MED ONCE .ROUTE ; Start 02/26/17 at 19: 36; Stop 02/26/17 at 19:37; Status DC Sodium Chloride 1,000 ml @ 70 mls/hr [id number] ONCE IV Last administered on 03/23 18:50; Start 02/26/17 at 19:35; Stop 02/27/17 at 09:52; Status DC Etomidate (Amidate Inj) 20 mg ONCE ONCE IV PUSH Last administered on 19:31; Start 02/26/17 at 19:45; Stop 02/26/17 at 19:46; Status DC Succinylcholine Chloride (Quelicin Inj) 100 mg ONCE ONCE IV PUSH Last administered on 02/26/17 19:45; Start 02/26/17 at 19:45; Stop 02/26/17 at 19:46 ; Status DC Sodium Chloride 1,000 ml @ 999 mls/hr BOLUS ONCE IV Last administered on 02/26 19:45; Start 02/26/17 at 19:45; Stop 02/26/17 at 20:45; Status DC Midazolam HCl (Versed Inj) 5 mg ONCE ONCE IV PUSH Last administered on 19:45; Start 02/26/17 at 19:45; Stop 02/26/17 at 19:46; Status DC Acetaminophen (Tylenol Supp) 650 mg ONCE ONCE RECTAL Last administered on 02/26 19:45; Start 02/26/17 at 19:45; Stop 02/26/17 at 19:46; Status DC Midazolam HCl (Versed Inj) 5 mg ONCE ONCE IV PUSH Last administered on 20:00; Start 02/26/17 at 20:00; Stop 02/26/17 at 20:01; Status DC Vecuronium Doran (Norcuron 10 Mg Inj) 10 mg ONCE ONCE IV PUSH Last administered on 02/26/17 20:00; Start 02/26/17 at 20:00; Stop 02/26/17 at 20:01 ; Status DC Vancomycin HCl 1000 mg/Sodium Chloride 250 ml @ 250 mls/hr ONCE ONCE IV ; Start 02/26/17 at 20:15; Stop 02/26/17 at 21:14; Status Cancel Ceftriaxone Sodium 2000 mg/ Sodium Chloride 100 ml @ 200 mls/hr ONCE ONCE IV Last administered on 02/26/17 20:15; Start 02/26/17 at 20:15; Stop 02/26/17 at 20:44; Status DC Sodium Chloride 1,000 ml @ 999 mls/hr BOLUS ONCE IV Last administered on 02/26 20:15; Start 02/26/17 at 20:15; Stop 02/26/17 at 21:15; Status DC Adenosine (Adenocard Inj) 12 mg ONCE ONCE IV PUSH Last administered on 20:15; Start 02/26/17 at 20:15; Stop 02/26/17 at 20:16; Status DC Propofol 100 ml @ 0 mls/hr TITRATE PRN IV Ordered RASS Last administered on 10:10; Start 02/26/17 at 20:15; Stop 03/04/17 at 20:06; Status DC Diltiazem HCl (Cardizem Inj) 20 mg ONCE ONCE IV Last administered on 20:30; Start 02/26/17 at 20:30; Stop 02/26/17 at 20:31; Status DC Ketorolac Tromethamine (Toradol Inj) 30 mg STK-MED ONCE .ROUTE ; Start 02/26/17 at 20:47; Stop 02/26/17 at 20:48; Status DC Ketorolac Tromethamine (Toradol Inj) 30 mg ONCE ONCE IV PUSH Last administered on 02/26/17 21:00; Start 02/26/17 at 21:00; Stop 02/26/17 at 21:02 ; Status DC Sodium Chloride 1,000 ml @ 999 mls/hr BOLUS ONCE IV Last administered on 02/26 21:00; Start 02/26/17 at 21:00; Stop 02/26/17 at 22:00; Status DC Acyclovir Sodium 1000 mg/Sodium Chloride 150 ml @ 150 mls/hr ONCE ONCE IV ; Start 02/26/17 at 21:15; Stop 02/26/17 at 22:14; Status DC Norepinephrine Bitartrate 250 ml @ 7.5 mls/hr TITRATE PRN IV Blood pressure management Last administered on 02/28/17 01:15; Start 02/26/17 at 21:30; Stop 03/07/17 at 12:30; Status DC Terbutaline Sulfate (Brethine Inj) 1 mg UNSCH PRN SQ For Extravasation; Start 02/26/17 at 21:30 Norepinephrine Bitartrate (Levophed Inj) 4 mg STK-MED ONCE .ROUTE ; Start at 21:17; Stop 02/26/17 at 21:18; Status DC Sodium Chloride (NS Flush) 2 ml UNSCH PRN .XX FLUSH AFTER USING IV ACCESS; Start 02/26/17 at 21:30; Stop 02/26/17 at 22:59; Status DC Sodium Chloride (NS Flush) 2 ml BID .XX ; Start 02/27/17 at 09:00; Stop at 09:00; Status DC Acetaminophen (Tylenol) 650 mg Q6H PRN PO FEVER >101F Last administered on 04/08 15:12; Start 02/26/17 at 21:30 Morphine Sulfate (Morphine Inj) 2 mg Q2H PRN IV PAIN SCALE 6 TO 10 Last administered on 03/13/17 11:12; Start 02/26/17 at 21:30; Stop 03/13/17 at 15:35; Status DC Famotidine (Pepcid Inj) 20 mg Q12HR IV PUSH Last administered on 03/12/17 19:59 ; Start 02/27/17 at 09:00; Stop 03/13/17 at 08:02; Status DC Midazolam HCl (Versed Inj) 2 mg Q1H PRN IV SEDATION; Start 02/26/17 at 21:30; Stop 02/27/17 at 13:03; Status DC Artificial Tears (Tears Naturale Opth Soln) 1 drop TID EACH EYE Last administered on 04/11/17 17:48; Start 02/27/17 at 09:00 Ondansetron HCl (Zofran Inj) 4 mg Q6H PRN IV NAUSEA OR VOMITING Last administered on 03/16/17 12:47; Start 02/26/17 at 21:30 Albuterol/ Ipratropium (Duoneb Neb) 1 ampule Q2HR NEB PRN INH WHEEZING Last administered on 03/13/17 07:35; Start 02/26/17 at 21:30 Heparin Sodium (Porcine) (Heparin Inj) 5,000 units Q12H SQ Last administered on 03/12/17 20:00; Start 02/26/17 at 22:00; Stop 03/13/17 at 08:03; Status DC Miscellaneous Information 1 [id number] Last administered on 02/26/17 21:30; Start 02/26/17 at 21:30 Chlorhexidine Gluconate (Chlorhexidine 2% Cloth) Taper DAILY@04 TOP Last administered on 03/05/17 00:07; Start 02/27/17 at 04:00; Stop 02/23/18 at 03:59 Chlorhexidine Gluconate (Chlorhexidine 2% Cloth) 3 pack UNSCH PRN TOP HYGIENIC CARE; Start 02/26/17 at 21:30 Senna/Docusate Sodium (Armida-Colace) 1 tab BID PO Last administered on 08:31; Start 02/27/17 at 09:00 Magnesium Hydroxide (Milk Of Magnesia Liq) 30 ml Q12H PRN PO MILD - MODERATE CONSTIPATION; Start 02/26/17 at 21:30 Sennosides (Senokot) 17.2 mg Q12H PRN PO MODERATE - SEVERE CONSTIPATION; Start 02/26/17 at 21:30 Bisacodyl (Dulcolax Supp) 10 mg DAILY PRN RECTAL SEVERE CONSITIPATION; Start at 21:30 Lactulose (Lactulose Liq) 30 ml DAILY PRN PO SEVERE CONSITIPATION; Start at 21:30 Sodium Chloride (NS Flush) 2 ml UNSCH PRN IV FLUSH FLUSH AFTER USING IV ACCESS Last administered on 04/02/17 04:36; Start 02/26/17 at 22:45 Sodium Chloride (NS Flush) 2 ml BID IV FLUSH Last administered on 04/11/17 21: 24; Start 02/27/17 at 09:00 Ceftriaxone Sodium 2000 mg/ Sodium Chloride 100 ml @ 200 mls/hr Q12H IV Last administered on 02/28/17 08:00; Start 02/27/17 at 08:00; Stop 02/28/17 at 18:22 ; Status DC Pharmacy Profile Note 0 ml @ 0 mls/hr UNSCH OTHER ; Start 02/26/17 at 22:45; Stop 02/27/17 at 15:32; Status DC Acyclovir Sodium 1050 mg/Sodium Chloride 150 ml @ 150 mls/hr Q8H IV Last administered on 02/27/17 09:54; Start 02/27/17 at 01:00; Stop 02/27/17 at 15:32 ; Status DC Amphotericin B Liposome 340 mg/ Dextrose 250 ml @ 125 mls/hr Q24H IV ; Start at 23:45; Stop 02/27/17 at 00:37; Status DC Sodium Chloride 1,000 ml @ 1,000 mls/hr Q1H ONCE IV Last administered on 22:20; Start 02/26/17 at 22:33; Stop 02/26/17 at 23:32; Status DC Sodium Chloride 1,000 ml @ 1,000 mls/hr Q1H ONCE IV Last administered on 23:20; Start 02/26/17 at 22:33; Stop 02/26/17 at 23:32; Status DC Sodium Chloride 100 ml @ 1,000 mls/hr Q6M ONCE IV Last administered on 22:33; Start 02/26/17 at 22:33; Stop 02/26/17 at 22:42; Status DC Vancomycin HCl 2000 mg/Sodium Chloride 520 ml @ 250 mls/hr ONCE ONCE IV Last administered on 02/27/17 01:15; Start 02/27/17 at 01:00; Stop 02/27/17 at 03:04 ; Status DC Amphotericin B Liposome 340 mg/ Dextrose 250 ml @ 125 mls/hr Q24H IV ; Start at 00:45; Status Cancel Amphotericin B Liposome 340 mg/ Dextrose 250 ml @ 125 mls/hr Q24H IV Last administered on 02/27/17 02:00; Start 02/27/17 at 02:00; Stop 02/27/17 at 21:57 ; Status DC Potassium Chloride 100 ml @ 50 mls/hr Q2H PRN IV For Potassium 2.8 - 3.2 mEq/ L Last administered on 03/08/17 08:06; Start 02/27/17 at 06:00; Stop 03/13/17 at 17:47; Status DC Potassium Chloride 100 ml @ 50 mls/hr Q2H PRN IV For Potassium 2.8 - 3.2 mEq/ L Last administered on 03/03/17 13:04; Start 02/27/17 at 06:00; Stop 03/13/17 at 17:47; Status DC Potassium Bicarb/ Potassium Chloride (K-Lyte Cl Eff) 50 meq UNSCH PRN PO For Potassium 3.3 - 3.5 mEq/L Last administered on 03/11/17 08:10; Start 02/27/17 at 06:00; Stop 03/13/17 at 17:47; Status DC Potassium Chloride 100 ml @ 25 mls/hr UNSCH PRN IV For Potassium 3.3 - 3.5 mEq /L Last administered on 03/12/17 06:10; Start 02/27/17 at 06:00; Stop 03/13/17 at 17:47; Status DC Potassium Chloride 100 ml @ 50 mls/hr Q2H PRN IV For Potassium 3.3 - 3.5 mEq/ L Last administered on 03/10/17 12:32; Start 02/27/17 at 06:00; Stop 03/13/17 at 17:47; Status DC Magnesium Sulfate 4 gm/Sodium Chloride 100 ml @ 50 mls/hr UNSCH PRN IV For Magnesium 0.9 - 1.1 mg/dL; Start 02/27/17 at 06:00; Stop 03/07/17 at 12:30; Status DC Magnesium Oxide (Mag-Ox) 800 mg UNSCH PRN PO For Magnesium 1.2 - 1.6 mg/dL; Start 02/27/17 at 06:00; Stop 03/07/17 at 12:31; Status DC Magnesium Sulfate 2 gm/Sodium Chloride 100 ml @ 50 mls/hr UNSCH PRN IV For Magnesium 1.2 - 1.6 mg/dL Last administered on 03/02/17 09:45; Start 02/27/17 at 06:00; Stop 03/07/17 at 12:31; Status DC Potassium Phosphate (K-Phos) 2,000 mg Q4H PRN PO For Phosphorus < 2.5 mg/dL; Start 02/27/17 at 06:00; Stop 03/13/17 at 17:47; Status DC Sodium Phosphate 30 mmol/Sodium Chloride 250 ml @ 42 mls/hr UNSCH PRN IV For Phosphorus < 2.5 mg/dL; Start 02/27/17 at 06:00; Stop 03/13/17 at 17:47; Status DC Potassium Phosphate (K-Phos) 2,000 mg UNSCH PRN PO/TUBE SEE LABEL COMMENTS; Start 02/27/17 at 06:00; Stop 03/13/17 at 17:47; Status DC Potassium Phosphate 30 mmol/ Sodium Chloride 260 ml @ 42 mls/hr UNSCH PRN IV SEE LABEL COMMENTS; Start 02/27/17 at 06:00; Stop 03/13/17 at 17:47; Status DC Midazolam HCl 100 ml @ 2 mls/hr TITRATE PRN IV SEDATION Last administered on 07:54; Start 02/27/17 at 07:00; Stop 02/27/17 at 13:03; Status DC Vancomycin HCl 1500 mg/Sodium Chloride 515 ml @ 250 mls/hr Q18H IV ; Start at 21:00; Stop 02/27/17 at 21:00; Status DC Miscellaneous Information SPECIFIC LAB TO BE DRAWN:VANCOMYCIN TROUGH DATE TO... ONCE ONCE .XX ; Start 03/01/17 at 08:45; Stop 03/01/17 at 08:46; Status Cancel Fentanyl Citrate 250 ml @ 0 mls/hr TITRATE IV Last administered on 02/27/17 14 :38; Start 02/27/17 at 13:00; Stop 03/01/17 at 14:33; Status DC Dextrose (D50w (Vial) Inj) 25 ml UNSCH PRN IV PUSH HYPOGLYCEMIA-SEE COMMENTS; Start 02/27/17 at 13:00; Stop 03/07/17 at 20:43; Status DC Insulin Human Regular (NovoLIN R SUPPLEMENTAL SCALE) 1 Q6HR SQ ; Start 02/27/17 at 18:00; Stop 03/07/17 at 20:43; Status DC Oxacillin Sodium 2 gm/Sodium Chloride 100 ml @ 200 mls/hr Q4H IV Last administered on 04/12/17 06:14; Start 02/27/17 at 18:00 Pharmacy Profile Note 0 ml @ 0 mls/hr UNSCH OTHER ; Start 02/27/17 at 15:30 Fluconazole/ Sodium Chloride 400 ml @ 100 mls/hr Q24H IV ; Start 02/27/17 at 18 :00; Stop 02/27/17 at 18:00; Status DC Rifampin 300 mg/ Sodium Chloride 100 ml @ 100 mls/hr Q12H IV Last administered on 03/08/17 07:58; Start 02/27/17 at 21:00; Stop 03/08/17 at 14:31 ; Status DC Gentamicin Sulfate/Sodium Chloride 100 ml @ 200 mls/hr Q8H IV Last administered on 02/28/17 10:13; Start 02/27/17 at 18:00; Stop 02/28/17 at 14:36 ; Status DC Miscellaneous Information SPECIFIC LAB TO BE DRAWN:GENTAMICIN TROUGH DATE TO... ONCE ONCE .XX Last administered on 02/28/17 09:50; Start 02/28/17 at 09:45; Stop 02/28/17 at 10:04; Status DC Miscellaneous Information SPECIFIC LAB TO BE DRAWN:GENTAMICIN PEAK DATE TO... ONCE ONCE .XX Last administered on 02/28/17 11:45; Start 02/28/17 at 11:30; Stop 02/28/17 at 11:31; Status DC Fluconazole/ Sodium Chloride 400 ml @ 200 mls/hr Q24H IV ; Start 02/27/17 at 19 :00; Stop 02/27/17 at 19:00; Status DC Fluconazole/ Sodium Chloride 200 ml @ 100 mls/hr Q24H IV ; Start 02/27/17 at 18 :00; Stop 02/27/17 at 18:00; Status DC Fluconazole/ Sodium Chloride 200 ml @ 100 mls/hr Q24H IV Last administered on 03/03/17 20:37; Start 02/27/17 at 20:00; Stop 03/04/17 at 18:11; Status DC Fluconazole/ Sodium Chloride 200 ml @ 100 mls/hr Q24H IV Last administered on 03/03/17 22:43; Start 02/27/17 at 22:00; Stop 03/04/17 at 18:11; Status DC Amphotericin B Liposome 340 mg/ Dextrose 235 ml @ 117.5 mls/ hr Q24H IV Last administered on 02/28/17 02:14; Start 02/28/17 at 02:00; Stop 02/28/17 at 18:22 ; Status DC Bumetanide (Bumex Inj) 1 mg DAILY IV PUSH Last administered on 03/07/17 09:51 ; Start 02/28/17 at 10:30; Stop 03/07/17 at 12:31; Status DC Gentamicin Sulfate 100 mg/ Sodium Chloride 102.5 ml @ 200 mls/hr Q12H IV Last administered on 03/02/17 12:13; Start 03/01/17 at 00:00; Stop 03/02/17 at 13:07 ; Status DC Miscellaneous Information SPECIFIC LAB TO BE DRAWN:GENTAMICIN TROUGH DATE TO... ONCE ONCE .XX Last administered on 03/02/17 11:45; Start 03/02/17 at 11:45; Stop 03/02/17 at 11:46; Status DC Bumetanide (Bumex Inj) 1 mg NOW ONCE IV PUSH Last administered on 03/01/17 11 :20; Start 03/01/17 at 09:45; Stop 03/01/17 at 10:22; Status DC Bumetanide 100 ml @ 2 mls/hr Q24H IV Last administered on 03/02/17 18:43; Start 03/01/17 at 12:45; Stop 03/03/17 at 10:57; Status DC Ampicillin Sodium 2000 mg/Sodium Chloride 100 ml @ 400 mls/hr Q4H IV Last administered on 04/12/17 08:34; Start 03/01/17 at 13:00 Fentanyl Citrate 250 ml @ 0 mls/hr TITRATE IV ; Start 03/01/17 at 14:45; Stop at 15:53; Status DC Fentanyl Citrate 250 ml @ 2.5 mls/hr TITRATE IV Last administered on 18:40; Start 03/01/17 at 16:00; Stop 03/08/17 at 18:04; Status DC Gentamicin Sulfate/Sodium Chloride 100 ml @ 200 mls/hr Q12H IV Last administered on 03/28/17 12:49; Start 03/03/17 at 00:00; Stop 03/28/17 at 14:04 ; Status DC Miscellaneous Information SPECIFIC LAB TO BE MELISSA... ONCE ONCE .XX Last administered on 03/04/17 11:45; Start 03/04/17 at 11:45; Stop 03/04/17 at 11:46 ; Status DC Gadodiamide (Omniscan Pf Inj) 20 ml STK-MED ONCE IVCONTRAST Last administered on 03/02/17 17:25; Start 03/02/17 at 17:25; Stop 03/02/17 at 17:26; Status DC Metoprolol Tartrate (Lopressor Inj) 5 mg STK-MED ONCE .ROUTE Last administered on 03/03/17 10:58; Start 03/03/17 at 10:29; Stop 03/03/17 at 10:30; Status DC Diltiazem HCl (Cardizem Inj) 20 mg ONCE ONCE IV PUSH ; Start 03/03/17 at 10:30 ; Stop 03/03/17 at 10:40; Status DC Diltiazem HCl 125 mg/Sodium Chloride 125 ml @ 5 mls/hr TITRATE PRN IV Tachycardia; Start 03/03/17 at 10:30; Stop 03/07/17 at 12:31; Status DC Diltiazem HCl (Cardizem Inj) 20 mg UNSCH X1 PRN IV PUSH SEE LABEL COMMENTS; Start 03/03/17 at 11:00; Stop 03/03/17 at 13:00; Status DC Metoprolol Tartrate (Lopressor Inj) 2.5 mg Q6H PRN IV PUSH Heart rate > 100BPM Last administered on 03/07/17 18:55; Start 03/03/17 at 11:00; Stop 03/13/17 at 17:46; Status DC Acetaminophen (Ofirmev 1000 Mg/ 100 ml Inj) 1,000 mg Q6H PRN IV PAIN SCALE 6 TO 8 Last administered on 03/10/17 13:57; Start 03/03/17 at 11:00; Stop 03/13/17 at 08:02; Status DC Midazolam HCl 100 ml @ 2 mls/hr TITRATE PRN IV SEDATION Last administered on 20:23; Start 03/04/17 at 09:30; Stop 03/11/17 at 10:28; Status DC Dexmedetomidine HCl 200 mcg/ Sodium Chloride 52 ml @ 5.28 mls/hr Q9H51M PRN IV SEDATION Last administered on 03/06/17 21:33; Start 03/05/17 at 10:29; Stop 03/11/17 at 09:04; Status DC Water (Free Water) VOLUME: 300 ML Q8HR G-TUBE Last administered on 03/11/17 04: 26; Start 03/06/17 at 14:00; Stop 03/11/17 at 08:00; Status DC Sodium Chloride 38.5 meq/Sterile Water 1,009.625 ml @ 84 mls/hr Q12H2M IV Last administered on 03/08/17 01:09; Start 03/07/17 at 14:00; Stop 03/08/17 at 14:02 ; Status DC Potassium Chloride (KCl Powder) 20 meq ONCE ONCE PO Last administered on 15:02; Start 03/07/17 at 12:45; Stop 03/07/17 at 13:07; Status DC Etomidate (Amidate Inj) 20 mg STK-MED ONCE .ROUTE ; Start 03/07/17 at 18:15; Stop 03/07/17 at 18:16; Status DC Dexamethasone Sodium Phosphate (Decadron Inj) 4 mg Q8HR IV PUSH Last administered on 03/10/17 05:50; Start 03/08/17 at 14:00; Stop 03/10/17 at 13:59; Status DC Rifampin (Rifampin) 300 mg Q12HR PO Last administered on 04/12/17 08:32; Start 03/08/17 at 21:00 Fentanyl Citrate 250 ml @ 5 mls/hr TITRATE PRN IV Sedation Last administered on 03/10/17 20:23; Start 03/08/17 at 18:15; Stop 03/11/17 at 10:28; Status DC Potassium Chloride 100 ml @ 50 mls/hr BOLUS ONCE IV Last administered on 14:05; Start 03/09/17 at 12:00; Stop 03/09/17 at 13:59; Status DC Albuterol/ Ipratropium (Duoneb Neb) 1 ampule Q6HR NEB NEB Last administered on 03/13/17 05:25; Start 03/09/17 at 16:00; Stop 03/13/17 at 07:34; Status DC Methadone HCl (Methadone Liq) 5 mg ONCE ONCE NG Last administered on 23:07; Start 03/09/17 at 23:00; Stop 03/09/17 at 23:01; Status DC Potassium Chloride (KCl Powder) 20 meq ONCE ONCE PO Last administered on 08:15; Start 03/11/17 at 08:15; Stop 03/11/17 at 08:16; Status DC Potassium Chloride 100 ml @ 25 mls/hr BOLUS ONCE IV Last administered on 09:22; Start 03/11/17 at 08:15; Stop 03/11/17 at 12:14; Status DC Water (Free Water) VOLUME: 300 ML Q6HR G-TUBE Last administered on 03/12/17 05: 35; Start 03/11/17 at 12:00; Stop 03/12/17 at 09:30; Status DC Methadone HCl (Methadone Liq) 10 mg Q12HR PO Last administered on 03/13/17 08: 47; Start 03/11/17 at 10:00; Stop 03/13/17 at 15:35; Status DC Dexmedetomidine HCl 200 mcg/ Sodium Chloride 52 ml @ 5.44 mls/hr TITRATE PRN IV SEDATION Last administered on 03/12/17 05:40; Start 03/11/17 at 09:00; Stop at 08:02; Status DC Racepinephrine (Racepinephrine 2.25% Neb) 0.5 ml ONCE ONCE NEB Last administered on 03/12/17 01:59; Start 03/12/17 at 01:45; Stop 03/12/17 at 01:51; Status DC Racepinephrine (Racepinephrine 2.25% Neb) 0.5 ml ONCE PRN NEB STRIDOR; Start at 01:45; Stop 03/13/17 at 01:44; Status DC Albuterol/ Ipratropium (Duoneb Neb) 1 ampule Q6HR NEB NEB Last administered on 03/15/17 22:04; Start 03/13/17 at 10:00; Stop 03/17/17 at 09:59; Status DC Famotidine (Pepcid) 20 mg BID PO Last administered on 04/11/17 08:31; Start at 09:00 Heparin Sodium (Porcine) (Heparin Inj) 5,000 units Q8H SQ Last administered on 03/29/17 18:50; Start 03/13/17 at 10:00 Furosemide (Lasix) 20 mg DAILY PO Last administered on 03/15/17 09:03; Start at 09:00; Stop 03/15/17 at 15:54; Status DC Potassium Chloride (KCl) 20 meq DAILY PO Last administered on 04/12/17 08:32; Start 03/13/17 at 09:00 Miscellaneous Information SPECIFIC LAB TO BE DRAWN:GENTAMICIN TROUGH DATE TO... ONCE ONCE .XX ; Start 03/14/17 at 11:45; Stop 03/14/17 at 11:46; Status DC Methadone HCl (Methadone Liq) 20 mg Q12HR PO Last administered on 03/23/17 09 :03; Start 03/13/17 at 21:00; Stop 03/23/17 at 17:25; Status DC Morphine Sulfate (Morphine Inj) 3 mg Q3H PRN IV PAIN SCALE 6 TO 10 Last administered on 04/02/17 11:14; Start 03/13/17 at 15:45; Stop 04/02/17 at 11:51 ; Status DC Miscellaneous Information SPECIFIC LAB TO BE DRAWN:GENTAMICIN TROUGH DATE TO... ONCE ONCE .XX Last administered on 03/15/17 13:18; Start 03/15/17 at 11:45; Stop 03/15/17 at 11:46; Status DC Acetaminophen (Tylenol) 650 mg Q4H PRN PO HEADACHE; Start 03/15/17 at 16:00; Stop 03/15/17 at 16:00; Status DC Acetaminophen (Tylenol) 1,000 mg Q4H PRN PO HEADACHE Last administered on 15:37; Start 03/15/17 at 16:00 Furosemide (Lasix) 40 mg DAILY PO Last administered on 04/12/17 08:32; Start 03/16/17 at 09:00 Furosemide (Lasix) 20 mg ONCE ONCE PO Last administered on 03/15/17 16:55; Start 03/15/17 at 16:00; Stop 03/15/17 at 16:04; Status DC Diatrizoate Meglum/ Diatrizoate Sod ( Gastroview Liq) 18 ml ONCE ONCE PO Last administered on 03/16/17 16:17; Start 03/16/17 at 16:00; Stop 03/16/17 at 16: 01; Status DC Iohexol (Omnipaque 350 Inj) 95 ml STK-MED ONCE IVCONTRAST Last administered on 03/16/17 20:45; Start 03/16/17 at 20:45; Stop 03/16/17 at 20:46; Status DC Furosemide (Lasix Inj) 40 mg ONCE ONCE IV PUSH Last administered on 03/18/17 18:15; Start 03/18/17 at 16:45; Stop 03/18/17 at 17:37; Status DC Potassium Chloride (KCl) 80 meq ONCE ONCE PO ; Start 03/18/17 at 16:45; Stop at 16:46; Status UNV Potassium Chloride (KCl) 60 meq ONCE ONCE PO Last administered on 03/18/17 19 :58; Start 03/18/17 at 18:45; Stop 03/18/17 at 18:46; Status DC Furosemide (Lasix Inj) 40 mg ONCE ONCE IV PUSH Last administered on 03/19/17 16:55; Start 03/19/17 at 16:00; Stop 03/19/17 at 16:01; Status DC Loperamide HCl (Imodium) 2 mg UNSCH PRN PO DIARRHEA; Start 03/20/17 at 10:45 Furosemide (Lasix Inj) 40 mg ONCE ONCE IV PUSH Last administered on 03/20/17 11:08; Start 03/20/17 at 10:45; Stop 03/20/17 at 10:46; Status DC Furosemide (Lasix Inj) 40 mg ONCE ONCE IV PUSH Last administered on 03/21/17 17:46; Start 03/21/17 at 17:30; Stop 03/21/17 at 17:31; Status DC Potassium Chloride (KCl) 40 meq ONCE ONCE PO Last administered on 03/21/17 17 :47; Start 03/21/17 at 17:30; Stop 03/21/17 at 17:31; Status DC Miscellaneous Information SPECIFIC LAB TO BE MELISSA... ONCE ONCE .XX Last administered on 03/23/17 23:45; Start 03/23/17 at 23:45; Stop 03/23/17 at 23:46 ; Status DC Methadone HCl (Methadone Liq) 25 mg Q12HR PO Last administered on 04/10/17 08 :45; Start 03/23/17 at 21:00; Stop 04/10/17 at 11:15; Status DC Gentamicin Sulfate 80 mg/ Sodium Chloride 102 ml @ 204 mls/hr Q12H IV ; Start 03/27/17 at 00:00; Stop 03/27/17 at 00:00; Status DC Miscellaneous Information SPECIFIC LAB TO BE DRAWN:GENTAMICIN TROUGH DATE TO... ONCE ONCE .XX Last administered on 03/28/17 11:45; Start 03/28/17 at 11:45; Stop 03/28/17 at 11:46; Status DC Gentamicin Sulfate/Sodium Chloride 100 ml @ 200 mls/hr Q18H IV Last administered on 04/11/17 17:47; Start 03/29/17 at 06:00 Miscellaneous Information SPECIFIC LAB TO BE DRAWN:GENTAMICIN TROUGH DATE TO... ONCE ONCE .XX Last administered on 03/31/17 13:00; Start 03/31/17 at 11:45; Stop 03/31/17 at 11:46; Status DC Morphine Sulfate (Roxanol Liq) 10 mg Q3H PRN PO pain 6-10 Last administered on 04/12/17 08:34; Start 04/02/17 at 12:00 Morphine Sulfate (Roxanol Liq) 5 mg Q3H PRN PO pain 1-5; Start 04/02/17 at 12: 00 Miscellaneous Information SPECIFIC LAB TO BE DRAWN:GENTAMICIN TROUGH DATE TO... 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 Continue current treatment Supraventricular tachycardia-resolved Echocardiogram revealed an ejection fraction showed 25-30%. Continue metoprolol. Acute hypoxemic respiratory failure Resolved Continue DuoNeb treatments. Maintain oxygen saturation above 92% CVA (cerebral vascular accident) CT head negative, MRI small acute and subacute cortical infarct of the left parietal lobe. tapered off the methadone. Appreciate input from neurology who signed off PT to treat and eval Tricuspid regurgitation Continue oral Lasix. Acute systolic heart failure continue Lasix 40 mg po daily. Acute kidney injury) Now resolved. Protein calorie malnutrition Secondary to long-standing IV drug abuse and endocarditis. Microcytic anemia Continue with oral iron sulfate. Monitor H&H IV drug abuse Advised cessation. tapered off the methadone. Diarrhea, resolved C diff. is negative Continue probiotic. Anasarca. Improved Continue Lasix po. Discharge Planning dc home today with f/u by PCP. see med list. d/w the patient and . time spent 35 min. Winnie Perrin MD Apr 12, 2017 09:18
[2017-04-12] MEDS ORDERED: HYDR-3533 PO (09:21)
[2017-04-12] MEDS ORDERED: RIFA150C2 PO (09:21)
--- NOTE | 2017-04-12 09:23 | HHI.DS ---
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 Diagnosis: Principal Status: Acute (4) SVT (supraventricular tachycardia) ICD Code: I47.1 - Supraventricular tachycardia Diagnosis: Principal Status: Resolved (5) Acute hypoxemic respiratory failure ICD Code: J96.01 - Acute respiratory failure with hypoxia Diagnosis: Principal Status: Resolved (6) CVA (cerebral vascular accident) ICD Code: I63.9 - Cerebral infarction, unspecified Diagnosis: Principal (7) Tricuspid regurgitation ICD Code: I07.1 - Rheumatic tricuspid insufficiency Diagnosis: Principal Status: Acute (8) Acute systolic heart failure ICD Code: I50.21 - Acute systolic (congestive) heart failure Diagnosis: Principal (9) Prosthetic valve endocarditis ICD Code: T82.6XXA - Infection and inflammatory reaction due to cardiac valve prosthesis, initial encounter Diagnosis: Principal Status: Acute (10) DUONG (acute kidney injury) ICD Code: N17.9 - Acute kidney failure, unspecified Diagnosis: Principal Status: Resolved (11) Protein calorie malnutrition ICD Code: E46 - Unspecified protein-calorie malnutrition Diagnosis: Principal (12) Microcytic anemia ICD Code: D50.9 - Iron deficiency anemia, unspecified Diagnosis: Secondary (13) Hypernatremia ICD Code: E87.0 - Hyperosmolality and hypernatremia Diagnosis: Secondary (14) IV drug abuse ICD Code: F19.10 - Other psychoactive substance abuse, uncomplicated Diagnosis: Secondary Status: Acute Procedures None Brief History - From Admission 36-year-old female who presents initially as a stroke alert. According to EMS report the patient has a history of fungal endocarditis with previous IVDA. EMS states that the patient is currently on hospice, however, they are unsure if the patient is a DNR. EMS states the patient apparently complained of a headache earlier today, was found lying on the floor and incontinent of stool at approximate, last seen normal at 6:45 PM. Therefore, EMS called a stroke alert in the field as the patient was aphasic and confused. Upon arrival the patient groans, moves all 4 extremities and withdraws all 4 extremities, but is unable to provide any information. She was intubated in the emergency department by ER attending for airway protection. CBC/BMP: 04/12/17 0819 04/10/17 1400 Significant Findings Laboratory Tests Test 04/09/17 10:40 04/10/17 14:00 04/12/17 08:19 Creatinine 1.10 MG/DL (0.50-1.00) 1.15 MG/DL (0.50-1.00) 1.14 MG/DL (0.50-1.00) Estimat Glomerular Filtration Rate 57 ML/MIN (>89) 54 ML/MIN (>89) 54 ML/MIN (>89) Red Blood Count 3.91 MIL/MM3 (4.00-5.30) 3.93 MIL/MM3 (4.00-5.30) Hemoglobin 9.9 GM/DL (11.6-15.3) 9.9 GM/DL (11.6-15.3) Hematocrit 30.4 % (35.0-46.0) 30.0 % (35.0-46.0) Mean Corpuscular Volume 77.9 FL (80.0-100.0) 76.3 FL (80.0-100.0) Mean Corpuscular Hemoglobin 25.2 PG (27.0-34.0) 25.1 PG (27.0-34.0) Red Cell Distribution Width 19.9 % (11.6-17.2) 20.5 % (11.6-17.2) Eosinophils (%) (Auto) 4.1 % (0.0-4.0) Random Glucose 125 MG/DL (74-106) Albumin 3.0 GM/DL (3.4-5.0) 2.9 GM/DL (3.4-5.0) Aspartate Amino Transf (AST/SGOT) 14 U/L (15-37) 12 U/L (15-37) Potassium Level 3.2 MEQ/L (3.5-5.1) Monocytes (%) (Auto) 9.1 % (0.0-8.0) Imaging Last Impressions Abdomen CT 03/16/17 0000 Signed Impressions: Service Date/Time: Thursday, March 16, 2017 20:26 - CONCLUSION: 1. Peripheral low attenuation lesions in the spleen most characteristic of multiple splenic infarcts. Some of these are new findings since 2016 comparison. 2. Minimal subsegmental airspace disease at the lung bases. 3. 3.4 cm right adnexal cyst. Intrauterine device present. 4. Small fat containing ventral hernias. Eliud Campoverde MD Chest X-Ray 03/13/17 0000 Signed Impressions: Service Date/Time: Monday, March 13, 2017 08:07 - CONCLUSION: Suspected mild edema/failure. Adalid Perry MD Neck CT 03/10/17 0000 Signed Impressions: Service Date/Time: Friday, March 10, 2017 11:13 - CONCLUSION: 1. Patient is intubated which limits this study. The epiglottis is otherwise normal. Secretions are present in the oropharynx and right sphenoid sinus. Alex Monahan MD Brain MRI 03/02/17 0000 Signed Impressions: Service Date/Time: Thursday, March 02, 2017 17:07 - CONCLUSION: 1. Small acute or subacute cortical infarct of the left parietal lobe. 2. Small, faint area of nonspecific flair signal abnormality in the left frontal lobe periventricular white matter, nonspecific. No associated mass effect or abnormal enhancement. 3 month followup MRI of the brain recommended. 3. Mild chronic white matter changes. Adalid Perry MD Head CT 02/26/17 0000 Signed Impressions: Service Date/Time: Sunday, February 26, 2017 19:47 - CONCLUSION: No evidence of acute infarct, hemorrhage, mass or edema. Ken Sanchez MD PE at Discharge GENERAL: This is a well-nourished, well-developed patient, in no apparent distress. CARDIOVASCULAR: Regular rate and regular rhythm without murmurs, gallops, or rubs. RESPIRATORY: Clear to auscultation. Breath sounds equal bilaterally. No wheezes , rales, or rhonchi. GASTROINTESTINAL: Abdomen soft, non-tender, nondistended. Normal, active bowel sounds MUSCULOSKELETAL: Extremities without clubbing, cyanosis, or edema. NEURO: Alert & Oriented x4 to person, place, time, situation. Moves all ext x4 Transfer Summary 36-year-old female who presents initially as a stroke alert. According to EMS report the patient has a history of fungal endocarditis with previous IVDA. EMS states that the patient is currently on hospice, however, they are unsure if the patient is a DNR. EMS states the patient apparently complained of a headache earlier today, was found lying on the floor and incontinent of stool at approximate, last seen normal at 6:45 PM. Therefore, EMS called a stroke alert in the field as the patient was aphasic and confused. Upon arrival the patient groans, moves all 4 extremities and withdraws all 4 extremities, but is unable to provide any information. She was intubated in the emergency department by ER attending for airway protection. 02/27: remains encephalopathic. Blood cultures growing Staph in 4/4 bottles. 02/28: Remains sedated/ encephalopathic, orally intubated on mechanical ventilation. 03/01: still in shock on vasopressors. grossly volume overloaded and intravascularly volume overloaded based on echo and clinically. needs aggressive diuresis, but still in shock. family made patient DNR last night, but want to continue aggressive therapies. still encephalopathic. no significant improvements. 03/02: seen and examined at around 06:45am. delayed note entry. remains encephalopathic. no significant changes. unlikely to survive hospital stay, no additional overall therapies. family wants aggressive treatment. diuresing on bumex drip. net 3.3L negative. still volume overloaded. 03/03: Tmax 102.8 This am patient went into SVT rhythm heart rate 190's. Cooling blanket placed, ice packs in place, metoprolol 5 mg IV push given, resolution heart rate mid 90s, MAP ranges 66-68. Ofirmev ordered. Bumex infusion discontinued secondary to elevation in creatinine. Chest x-ray pending. 03/04: Continues to be febrile, continues on cooling blanket. Propofol was discontinued secondary to hypotension. Today the patient continues on Versed and fentanyl infusions with the RASS -2. Patient currently GCS of 11 T, responsive. The patient tolerated CPAP trials for approximately 2.5 hours for the last 2 days. 03/05: Somewhat agitated this AM. Remains in sinus tachycardia. On PSV trials 1.5 hours today. Tolerating tube feeding. Tmax 101.4. 03/06: Low-grade fevers overnight. Currently afebrile. Remains on Precedex, Versed and fentanyl drips for sedation. On PSV trial 2 hours so far. Tolerating tube feeds. 03/07: Regular. Requesting extubation DO NOT INTUBATE hospice today. Patient actually is doing well on her weaning trials. If passes wean parameters. We' ll attempt extubation today. 03/08: Extubated yesterday approximately 1 hour 30 minutes. During that time, patient stated she wanted to be a full code. This was in conflict which she had stated earlier while on Precedex drip. Patient is currently full code. Possible stridor according to RN which brought about intubation by overnight rn sane. Currently awake and alert and following commands room 03/09: Pending CT neck. Afebrile. Remains on full ventilator support. Awake and alert and following commands. tube feedings resumed. 03/10: Afebrile. CT neck unremarkable. Awake and alert and following commands. Tolerating tube feeding. One bowel movement yesterday. 03/11: Resting in bed in no acute distress. Awake and alert. We'll attempt extubation morning if passes weaning parameters. Will need to be on Precedex drip. Tolerating tube feeding. 03/12: Extubated yesterday tolerating well. Overnight had developed postextubation stridor, good response to racemic epi. Currently on Precedex 0.4 g per KG per hour. Will wean to DC. No stridor on exam today 03/13: No stridor in the last 24 hours. Breathing comfortably. Denies chest pain or shortness of breath. Precedex weaned off. 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 Continue current treatment Supraventricular tachycardia-resolved Echocardiogram revealed an ejection fraction showed 25-30%. Continue metoprolol. Acute hypoxemic respiratory failure Resolved Continue DuoNeb treatments. Maintain oxygen saturation above 92% CVA (cerebral vascular accident) CT head negative, MRI small acute and subacute cortical infarct of the left parietal lobe. tapered off the methadone. Appreciate input from neurology who signed off PT to treat and eval Tricuspid regurgitation Continue oral Lasix. Acute systolic heart failure continue Lasix 40 mg po daily. Acute kidney injury) Now resolved. Protein calorie malnutrition Secondary to long-standing IV drug abuse and endocarditis. Microcytic anemia Continue with oral iron sulfate. Monitor H&H IV drug abuse Advised cessation. tapered off the methadone. Diarrhea, resolved C diff. is negative Continue probiotic. Anasarca. Improved Continue Lasix po. Pt Condition on Discharge: Fair Discharge Disposition: Discharge Home Discharge Time: > 30 minutes Discharge Instructions DIET: Follow Instructions for: Heart Healthy Diet Speech Therapy-Diet Recommends: Soft, Breaks Thickened Liquids Activities you can perform: Regular-No Restrictions Follow up Referrals: PCP Follow-up New Medications: Doxycycline Hyclate (Doxycycline Hyclate) 100 Mg Cap 100 MG PO BID for Infection for 60 Days, #120 CAP 0 Refills Hydrocodone-Acetaminophen (Lortab) 5-325 Mg Tab 1 TAB PO Q6H PRN for PAIN, #10 TAB 0 Refills Metoprolol Tartrate (Metoprolol Tartrate) 25 Mg Tab 12.5 MG PO DAILY for cad for 30 Days, #15 TAB 0 Refills Continued Medications: Albuterol/Ipratropium (Resp: Albuterol/Ipratropium 2.5 Mg/0.5 Mg) 1 Amp Nebu 1 AMPULE INH Q4HR NEB PRN for WHEEZING for 30 Days, ML Furosemide (Furosemide) 40 Mg Tab 40 MG PO Q8H for Shortness of Breath for 30 Days, TAB 3 Refills Potassium Chloride (Kcl 20 Meq Tab) 20 Meq Tabcr 20 MEQ PO DAILY for supplement for 30 Days, TAB.SR Discontinued Medications: Metoprolol Tartrate 25 mg (Metoprolol Tartrate 25 mg) 25 Mg Tab 25 MG PO Q12HR for chf for 30 Days, TAB 3 Refills Oxycodone-Acetaminophen 5-325 mg (Percocet 5-325 mg) 1 Tab 1 TAB PO Q4H PRN for PAIN, #60 TAB 0 Refills Spironolactone (Aldactone 25 mg) 25 Mg Tab 25 MG PO Q12HR for Shortness of Breath for 30 Days, TAB 3 Refills Winnie Perrin MD Apr 12, 2017 09:23
[2017-04-12 09:24] LABS: INDIRECT BILIRUBIN 0.1 MG/DL (0.0-0.8); TOTAL BILIRUBIN ADULT 0.2 MG/DL (0.2-1.0)
[2017-04-12] MEDS: SODIUM CHLORIDE 0.9% FLUSH 10 ML FLUSH IV FLUSH SCH (10:05)
[2017-04-12] MEDS ORDERED: DOXY100C PO (10:48)
[2017-04-12] MEDS ORDERED: DOXYCYCLINE HYCLATE 100 MG CAP PO SCH (11:00)
--- NOTE | 2017-04-12 11:28 | HHI.PR ---
Addendum to Inpatient Note Additional Information completed IV tx Pt will need to be on chronic suppression will dc on doxycycline She needs to be f/u in [facility] [place] to dw Swati Zurita MD Apr 12, 2017 10:49
[2017-04-12 12:00] VITALS: BP 116/70; PULSE 87; RESP 20; TEMP 97.8; O2SAT 98
[2017-04-12] MEDS ORDERED: METO25TA3 PO (12:20)
[2017-04-12 16:00] VITALS: BP 126/77; PULSE 83; RESP 20; TEMP 98.8; O2SAT 96
--- NOTE | 2017-04-16 13:00 | PQ ---
Physician Query Response Document PATIENT: HUSAM KENNY : 1980 ADMIT DATE: 02/26/2017 9:06 PM DISCH DATE: 04/12/2017 5:46 PM RESPONDING PROVIDER #: [email or web address] QUERY TEXT: Clarification of Clinical Diagnostic Findings Please clarify documentation or clinical relevance for the clinical / diagnostic findings or whether those are insignificant or unable to be further specified. WAS SEPSIS DUE TO: 1)unknown etiology 2)infected prosthetic valve/endocarditis 3)meningitis 4)other(Please Specify) The patient's Clinical Indicators include: Dr. Perrin, patient was admitted with Sepsis. Soure of Sepsis not clearly documented. Please review the question below and answer to the best of y our ability THANK YOU Query created by: Devyn Moreira on 04/13/2017 10:42 AM RESPONSE TEXT: Sepsis due to endocarditis. Electronically signed by: Winnie Perrin MD 04/16/2017 12:56 PM
== END 2017-04-12 17:46 | disposition home or self-care (01) | DRG 314 ==
LOC: NEPE 19:26 → NEDA 21:06 → HIMN 02-27 02:20 → N04A 03-13 19:15
PROVIDERS: ADMIT Internal Medicine; ATTEND Internal Medicine
PROC: 0BH17EZ Insertion of Endotracheal Airway into Trachea, Via Natural or Artificial Opening (ICD-10-PCS; principal; 2017-02-26)
PROC: 5A1955Z Respiratory Ventilation, Greater than 96 Consecutive Hours (ICD-10-PCS; 2017-02-26)
PROC: 05HM33Z Insertion of Infusion Device into Right Internal Jugular Vein, Percutaneous Approach (ICD-10-PCS; 2017-02-26)
PROC: 009U3ZX Drainage of Spinal Canal, Percutaneous Approach, Diagnostic (ICD-10-PCS; 2017-02-26)
PROC: 05H633Z Insertion of Infusion Device into Left Subclavian Vein, Percutaneous Approach (ICD-10-PCS; 2017-02-27)
PROC: 0T9B70Z Drainage of Bladder with Drainage Device, Via Natural or Artificial Opening (ICD-10-PCS; 2017-02-27)
PROC: 03HY32Z Insertion of Monitoring Device into Upper Artery, Percutaneous Approach (ICD-10-PCS; 2017-03-01)
PROC: 4A133B1 Monitoring of Arterial Pressure, Peripheral, Percutaneous Approach (ICD-10-PCS; 2017-03-01)
PROC: 4A133J1 Monitoring of Arterial Pulse, Peripheral, Percutaneous Approach (ICD-10-PCS; 2017-03-01)
PROC: 5A1945Z Respiratory Ventilation, 24-96 Consecutive Hours (ICD-10-PCS; 2017-03-08)
PROC: 0BH17EZ Insertion of Endotracheal Airway into Trachea, Via Natural or Artificial Opening (ICD-10-PCS; 2017-03-08)
DX: T82.6XXA Infection and inflammatory reaction due to cardiac valve prosthesis, initial encounter (principal); A41.9 Sepsis, unspecified organism; I63.9 Cerebral infarction, unspecified; G00.3 Staphylococcal meningitis; R65.21 Severe sepsis with septic shock; J96.01 Acute respiratory failure with hypoxia; J96.02 Acute respiratory failure with hypercapnia; R57.0 Cardiogenic shock; G93.41 Metabolic encephalopathy; E43 Unspecified severe protein-calorie malnutrition; I33.0 Acute and subacute infective endocarditis; I50.21 Acute systolic (congestive) heart failure; E87.2 Acidosis; N17.9 Acute kidney failure, unspecified; I48.92 Unspecified atrial flutter; R47.01 Aphasia; Z99.11 Dependence on respirator [ventilator] status; E87.0 Hyperosmolality and hypernatremia; I47.1 Supraventricular tachycardia; I07.1 Rheumatic tricuspid insufficiency; E83.39 Other disorders of phosphorus metabolism; I11.0 Hypertensive heart disease with heart failure; R15.9 Full incontinence of feces; B19.20 Unspecified viral hepatitis C without hepatic coma; F12.90 Cannabis use, unspecified, uncomplicated; F19.10 Other psychoactive substance abuse, uncomplicated; Z95.2 Presence of prosthetic heart valve; Y83.1 Surgical operation with implant of artificial internal device as the cause of abnormal reaction of the patient, or of later complication, without mention of misadventure at the time of the procedure; F41.9 Anxiety disorder, unspecified; Z51.5 Encounter for palliative care; F17.200 Nicotine dependence, unspecified, uncomplicated; Z66 Do not resuscitate; Z95.1 Presence of aortocoronary bypass graft; E87.6 Hypokalemia; R74.8 Abnormal levels of other serum enzymes; D50.9 Iron deficiency anemia, unspecified; R73.9 Hyperglycemia, unspecified; E86.0 Dehydration; R10.9 Unspecified abdominal pain; D73.5 Infarction of spleen; R19.7 Diarrhea, unspecified; M25.512 Pain in left shoulder
CPT/HCPCS: 31500; 36556; 36600; 51702; 70450; 70490; 70553; 71010; 74160; 76937; 80048; 80053; 80076; 80170; 80307; 81001; 82140; 82435; 82550; 82565; 82805; 82945; 82947; 82948; 83605; 83615; 83735; 84100; 84132; 84157; 84295; 84484; 84520; 84702; 85007; 85025; 85027; 85384; 85610; 85730; 86403; 86592; 86618; 86850; 86900; 86901; 87015; 87040; 87070; 87102; 87116; 87185; 87186; 87205; 87206; 87493; 87529; 87641; 89051; 93005; 93306; 94002; 94003; 94640; 94664; 94667; 94668; 95819; 96365; 96374; 96375; A9579; J0131; J0133; J0153; J0289; J0290; J0330; J0696; J1100; J1450; J1580; J1644; J1885; J1940; J2250; J2270; J2405; J2700; J3010; J3370; J3475; J3480; J7030; J7040; J7060; Q9963; Q9967

== ENCOUNTER 2017-08-31 19:40 | Inpatient (IN) | payer MEDICAID ==
[~2017-08-31] VITALS: Ht 170.2 cm; Wt 115.7 kg
[~2017-08-31 19:40] MED LIST changes: +DOXY100C PO; +HYDR-3533 PO; -METO25 PO; +METO25TA3 PO; -PERC5TAB12 PO; -SPIR25 PO
[2017-08-31 19:41] VITALS: BP 72/38; PULSE 120; RESP 18; TEMP 100.2; O2SAT 92
[2017-08-31] MEDS ORDERED: SODIUM CHLOR 0.9% 1000 ML INJ 1,000 ML IV ONE ×2 (19:57)
[2017-08-31] MEDS ORDERED: VANCOMYCIN INJ 1,000 MG in SODIUM CHLOR 0.9% 250 ML INJ 250 ML IV STA (19:57)
[2017-08-31] MEDS ORDERED: RIFAMPIN INJ 600 MG in SODIUM CHLORIDE 0.9% INJ 100 ML IV STA (19:57)
[2017-08-31] MEDS ORDERED: PIPERACIL-TAZO 4.5 GM PREMIX 100 ML IV STA (19:57)
[2017-08-31 20:00] VITALS: RESP 22; O2SAT 97
[2017-08-31 20:11] VITALS: BP 86/48; PULSE 109; RESP 22; O2SAT 99
[2017-08-31] MEDS ORDERED: ACETAMINOPHEN 325 MG TAB PO ONE (20:15)
--- NOTE | 2017-08-31 20:19 | RADRPT ---
EXAM DATE/TIME: 08/31/2017 20:00 [facility] COMPARISON: CHEST SINGLE AP, March 13, 2017, 8:07. INDICATIONS : Patient having shortness of breath and bilateral lower extremity swelling. MEDICAL HISTORY : Cardiovascular disease. Congestive heart failure. Hepatitis C. SURGICAL HISTORY : aortic valve replacement ENCOUNTER: Initial ACUITY: 2 weeks PAIN SCORE: 5/10 LOCATION: Bilateral upper chest FINDINGS: Median sternotomy wires. No significant focal pleural or parenchymal opacities. Cardiomediastinal con tours are stable. Remainder of exam is unchanged. CONCLUSION: 1. No acute cardiopulmonary disease. Luis Leija MD on August 31, 2017 at 20:17 Board Certified Radiologist. This report was verified electronically.
--- NOTE | 2017-08-31 20:42 | PD ---
HPI Chief Complaint: Respiratory Symptoms Time Seen by Provider: 19:56 Travel History International Travel<30 days: No Contact w/Intl Traveler<30days: No Traveled to known affect area: No History of Present Illness HPI 36-year-old female that presents to the ED for evaluation of shortness of breath and swelling. 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 Patient initially did not mention to anybody that she was doing drugs but she did tell me that she injected herself about 4 days ago. She uses Dilaudid. She states that she's been having fevers. Patient is somewhat somnolent and hard to assess she doesn't really provide much information. Family members at the bedside and he provides more information about the heart. Per patient she'll he takes 2 medications. Patient asked if she is taking any antibiotics and she said yes but when I ask her what kind is she is taking currently she states that she has not been on antibiotics for some time. Patient apparently does follow with a local wigs salesperson but she cannot tell me the name of it. She states that she's been having swelling to her legs for the past month. She denies any recent travel or injury. No other medical issues at this time. No allergies to medication. PFSH Past Medical History Anxiety: Yes Cancer: No Cardiovascular Problems: Yes (ENDOCARDITIS 2016) Congestive Heart Failure: Yes Diminished Hearing: No Endocrine: No Gastrointestinal Disorders: Yes (a few times a week ) Headaches: Yes Hepatitis: Yes (hep c) Immune Disorder: No Musculoskeletal: No Neurologic: Yes Psychiatric: No Reproductive: No Respiratory: No Pneumonia: Yes Tetanus Vaccination: Unknown Influenza Vaccination: Yes ?: Not : 2 Para: 2 Past Surgical History Other Surgery: Yes Social History Alcohol Use: Yes (SOC) Tobacco Use: No Substance Use: Yes (pills percocet, ocycodone and dilaudid, uses daily. Marijuana) Allergies-Medications (Allergen,Severity, Reaction): Coded Allergies: No Known Allergies (Verified Allergy, Unknown, 08/31/17) Reported Meds & Prescriptions Reported Meds & Active Scripts Active Metoprolol Tartrate 25 Mg Tab 12.5 Mg PO DAILY 30 Days Doxycycline Hyclate 100 Mg Cap 100 Mg PO BID 60 Days Lortab (Hydrocodone-Acetaminophen) 5-325 Mg Tab 1 Tab PO Q6H PRN Kcl 20 Meq Tab (Potassium Chloride) 20 Meq Tabcr 20 Meq PO DAILY 30 Days Nebulizer (Miscellaneous Medication) Mis 1 Unit INH DIRECTED Resp: Albuterol/Ipratropium 2.5 Mg/0.5 Mg (Albuterol/Ipratropium) 1 Amp Nebu 1 Ampule INH Q4HR NEB PRN 30 Days Furosemide 40 Mg Tab 40 Mg PO Q8H 30 Days Review of Systems Except as stated in HPI: all other systems reviewed are Neg Physical Exam Narrative GENERAL: SKIN: Warm and dry. Patient does appear to have puncture wounds from where she states been injecting recently in her arms. HEAD: Atraumatic. Normocephalic. EYES: Pupils equal and round. No scleral icterus. No injection or drainage. ENT: No nasal bleeding or discharge. Mucous membranes pink and moist. Tongue is midline. No uvula deviation. NECK: Trachea midline. No JVD. CARDIOVASCULAR: Regular rate and rhythm. murmurs noted. RESPIRATORY: No accessory muscle use. Clear to auscultation. Breath sounds equal bilaterally. GASTROINTESTINAL: Abdomen soft, non-tender, nondistended. Hepatic and splenic margins not palpable. MUSCULOSKELETAL: Extremities without clubbing, cyanosis, or edema. No obvious deformities. 2+ pitting edema to the lower extremities. Full range of motion of the upper and lower extremities bilaterally. NEUROLOGICAL: Awake and alert. No obvious cranial nerve deficits. Motor grossly within normal limits. Five out of 5 muscle strength in the arms and legs. Normal speech. PSYCHIATRIC: Appropriate mood and affect; insight and judgment normal. Data Data Last Documented VS Vital Signs Date Time Temp Pulse Resp B/P (MAP) Pulse Ox O2 Delivery O2 Flow Rate FiO2 08/31/17 20:11 109 22 86/48 (61) 99 Nasal Cannula 2.00 08/31/17 19:41 100.2 Orders Orders Electrocardiogram (08/31/17 19:51) Complete Blood Count With Diff (08/31/17 19:51) Comprehensive Metabolic Panel (08/31/17 19:51) Ckmb (Isoenzyme) Profile (08/31/17 19:51) Troponin I (08/31/17 19:51) B-Type Natriuretic Peptide (08/31/17 19:51) Prothrombin Time / Inr (Pt) (08/31/17 19:51) Act Partial Throm Time (Ptt) (08/31/17 19:51) Blood Culture (08/31/17 19:51) Lipase (08/31/17 19:51) Urinalysis - C+S If Indicated (08/31/17 19:51) Magnesium (Mg) (08/31/17 19:51) Thyroid Stimulating Hormone (08/31/17 19:51) Chest, Single Ap (08/31/17 19:51) Iv Access Insert/Monitor (08/31/17 19:51) Ecg Monitoring (08/31/17 19:51) Oximetry (08/31/17 19:51) Drug Screen, Random Urine (08/31/17 19:51) Alcohol (Ethanol) (08/31/17 19:51) Salicylates (Aspirin) (08/31/17 19:51) Tylenol (Acetaminophen) (08/31/17 19:51) Sepsis Workup Initiated (08/31/17 ) Lactic Acid Sepsis Protocol (08/31/17 19:57) Rifampin Inj (Rifampin Inj) (08/31/17 19:57) Vancomycin Inj (Vancomycin Inj) (08/31/17 19:57) Piperacil-Tazo 4.5 Gm Premix (Zosyn 4.5 (08/31/17 19:57) Sodium Chlor 0.9% 1000 Ml Inj (Ns 1000 M (08/31/17 19:57) Sodium Chlor 0.9% 1000 Ml Inj (Ns 1000 M (08/31/17 19:57) Acetaminophen (Tylenol) (08/31/17 20:15) Us Leg Venous Doppler Bilat (08/31/17 ) ^ Infusion (08/31/17 ) Dopamine Inj Premix (Dopamine Inj Premix (08/31/17 21:15) Terbutaline Inj (Brethine Inj) (08/31/17 21:15) Admit Order (Ed Use Only) (08/31/17 21:21) Labs Laboratory Tests Test 08/31/17 20:15 White Blood Count 18.8 TH/MM3 Red Blood Count 3.75 MIL/MM3 Hemoglobin 8.3 GM/DL Hematocrit 25.2 % Mean Corpuscular Volume 67.1 FL Mean Corpuscular Hemoglobin 22.1 PG Mean Corpuscular Hemoglobin Concent 32.9 % Red Cell Distribution Width 16.5 % Platelet Count 119 TH/MM3 Mean Platelet Volume 10.6 FL Neutrophils (%) (Auto) 88.7 % Lymphocytes (%) (Auto) 6.0 % Monocytes (%) (Auto) 4.1 % Eosinophils (%) (Auto) 1.0 % Basophils (%) (Auto) 0.2 % Neutrophils # (Auto) 16.7 TH/MM3 Lymphocytes # (Auto) 1.1 TH/MM3 Monocytes # (Auto) 0.8 TH/MM3 Eosinophils # (Auto) 0.2 TH/MM3 Basophils # (Auto) 0.0 TH/MM3 CBC Comment DIFF FINAL Differential Comment Prothrombin Time 13.1 SEC Prothromb Time International Ratio 1.3 RATIO Activated Partial Thromboplast Time 32.0 SEC Blood Urea Nitrogen 57 MG/DL Creatinine 4.50 MG/DL Random Glucose 107 MG/DL Total Protein 6.3 GM/DL Albumin 2.5 GM/DL Calcium Level 8.1 MG/DL Magnesium Level 1.9 MG/DL Alkaline Phosphatase 125 U/L Aspartate Amino Transf (AST/SGOT) 24 U/L Alanine Aminotransferase (ALT/SGPT) LESS THAN 6 U/L Total Bilirubin 0.9 MG/DL Sodium Level 125 MEQ/L Potassium Level 3.9 MEQ/L Chloride Level 91 MEQ/L Carbon Dioxide Level 21.8 MEQ/L Anion Gap 12 MEQ/L Estimat Glomerular Filtration Rate 11 ML/MIN Lactic Acid Level 1.2 mmol/L Total Creatine Kinase 48 U/L Troponin I 0.26 NG/ML B-Type Natriuretic Peptide 106 PG/ML Lipase 81 U/L Thyroid Stimulating Hormone 3rd Gen 2.000 uIU/ML Salicylates Level LESS THAN 1.7 MG/DL Acetaminophen Level 6.1 MCG/ML Ethyl Alcohol Level LESS THAN 3 MG/DL [facility] Medical Decision Making Medical Screen Exam Complete: Yes Emergency Medical Condition: Yes Medical Record Reviewed: Yes Interpretation(s) CBC & BMP Diagram 08/31/17 20:15 Total Protein 6.3 L, Albumin 2.5 L, Calcium Level 8.1 L, Magnesium Level 1.9, Alkaline Phosphatase 125 H, Aspartate Amino Transf (AST/SGOT) 24, Alanine Aminotransferase (ALT/SGPT) LESS THAN 6 L, Total Bilirubin 0.9 Last Impressions Chest X-Ray 08/31/171950 Signed Impressions: Service Date/Time: Thursday, August 31, 2017 20:00 - CONCLUSION: 1. No acute cardiopulmonary disease. Luis Leija MD troponin elevated INR slightly elevated EKG shows sinus tachycardia but no sign of acute ischemia or arrythmia read by me and attending. Differential Diagnosis Sepsis versus endocarditis versus CHF exacerbation versus respiratory failure versus septic emboli versus pneumonia versus altered mental status versus substance abuse Narrative Course 36-year-old female that presents to the ED for evaluation of shortness of breath. Patient was properly examined and was found to have signs and symptoms very concerning for bacterial endocarditis. She has a significant history of this in the past and she's even had surgery for her bowels secondary to the infection. Per old records she's had about 3 surgeries on her bowels and she has had infection on the bowels multiple times. She was last admitted here at the end of last year and she was released on April. She is continuing to use IV drugs. She does appear to have significant swelling of her legs which appear to be likely from CHF. She complains of shortness of breath and she is somewhat somnolent on exam but unclear if this is related to substance abuse or medical illness. She is also very hypotensive as well as tachycardic with a slight fever. My attending Dr. Hoover was made aware of findings and he immediately came and evaluated the patient with me. He agrees with sepsis workup and at this time patient will be given 1 L of fluid as patient does appear to be fluid overloaded at this time. Patient was started immediately on antibiotics. Labs and imaging were ordered. Labs and imaging showed signs and symptoms very consistent with endocarditis and sepsis. Patient has a positive troponin, she is tachycardic and hypotensive. She has an elevated white blood cell count of the her lactic acid is normal. She does have a fever. She is appears to be in acute kidney failure with her creatinine slightly elevated at 4. On her last admission her creatinine was recently within normal limits. Cholesterol recommendations for admission to the ICU. My attending evaluated the patient during this time and agrees with this. Case discussed with Dr. Calix who agrees to admission. Per my attending that she started patient on dopamine secondary to patient not responding to fluids. Sepsis Criteria SIRS Criteria (2 or more): Heart rate over 90, WBC > 34637, < 4000 or > 10% bands Sepsis Criteria (SIRS+source): Infect source susp/known Severe Sepsis (+one): Organ Dysfunction, Hypotension Criteria Outcome: Meets severe sepsis criteria Diagnosis Primary Impression: Endocarditis Qualified Codes: I33.0 - Acute and subacute infective endocarditis Additional Impressions: Acute kidney injury CHF (congestive heart failure), NYHA class IV Qualified Codes: I50.23 - Acute on chronic systolic (congestive) heart failure Severe sepsis Elevated troponin Admitting Information Admitting Physician Requests: Admit Will Cross Aug 31, 2017 20:42
[2017-08-31 21:01] LABS: AUTOMATED NEUTROPHIL # 16.7 TH/MM3 (1.8-7.7); BASOPHIL % 0.2 % (0.0-2.0); EOSINOPHIL # 0.2 TH/MM3 (0-0.4); HEMATOCRIT 25.2 % (35.0-46.0); HEMOGLOBIN 8.3 GM/DL (11.6-15.3); LYMPHOCYTE # 1.1 TH/MM3 (1.0-4.8); MEAN CELL VOLUME 67.1 FL (80.0-100.0); MEAN CORPUSCULAR HEMOGLOBIN 22.1 PG (27.0-34.0); MEAN CORPUSCULAR HGB CONC 32.9 % (32.0-36.0); MEAN PLATELET VOLUME 10.6 FL (7.0-11.0); MONO % 4.1 % (0.0-8.0); MONOCYTE # 0.8 TH/MM3 (0-0.9); NEUT % 88.7 % (16.0-70.0); PLATELET COUNT 119 TH/MM3 (150-450); RED BLOOD COUNT 3.75 MIL/MM3 (4.00-5.30); RED CELL DISTRIBUTION WIDTH 16.5 % (11.6-17.2); WHITE BLOOD COUNT 18.8 TH/MM3 (4.0-11.0)
[2017-08-31 21:13] LABS: INTERNATIONAL NORMALIZED RATIO 1.3 RATIO; PROTHROMBIN TIME - PATIENT 13.1 SEC (9.8-11.6)
[2017-08-31 21:15] LABS: ALBUMIN 2.5 GM/DL (3.4-5.0); ALT (GPT) LESS THAN 6 U/L (10-53); AST (GOT) 24 U/L (15-37); BICARBONATE 21.8 MEQ/L (21.0-32.0); BLOOD UREA NITROGEN 57 MG/DL (7-18); CALCIUM 8.1 MG/DL (8.5-10.1); CHLORIDE 91 MEQ/L (98-107); GLOMERULAR FILTRATION RATE 11 ML/MIN (>89); GLUCOSE,RANDOM 107 MG/DL (74-106); MAGNESIUM 1.9 MG/DL (1.5-2.5); SODIUM (NA) 125 MEQ/L (136-145)
[2017-08-31] MEDS ORDERED: TERBUTALINE INJ 1 MG/ML AMP SQ PRN (21:15)
[2017-08-31] MEDS ORDERED: DOPamine 800 MG/500 ML INJ 500 ML IV PRN (21:15)
[2017-08-31 21:24] LABS: ACETAMINOPHEN 6.1 MCG/ML (10.0-30.0); ALKALINE PHOSPHATASE 125 U/L (45-117); TOTAL BILIRUBIN ADULT 0.9 MG/DL (0.2-1.0); TOTAL PROTEIN 6.3 GM/DL (6.4-8.2); TROPONIN I 0.26 NG/ML (0.02-0.05)
[2017-08-31] MEDS ORDERED: MISCELLANEOUS NURSING INFORMATION XX SCH (22:00)
[2017-08-31] MEDS ORDERED: LACTULOSE SYRUP 20 GM/30 ML CUP PO PRN (22:00)
[2017-08-31] MEDS ORDERED: SENNOSIDES 8.6 MG TAB PO PRN (22:00)
[2017-08-31] MEDS ORDERED: CHLORHEXIDINE GLUCONATE 2 % 1 PACK (2 CLOTHS) TOP PRN (22:00)
[2017-08-31] MEDS ORDERED: MAGNESIUM HYDROXIDE SUSP 30 ML CUP PO PRN (22:00)
[2017-08-31] MEDS ORDERED: LORazepam 2 MG/ML VIAL IV PUSH PRN (22:00)
[2017-08-31] MEDS ORDERED: RESP: ALBUTEROL 2.5 MG/IPRATROPIUM 0.5 MG NEB (PRN) INH (22:00)
[2017-08-31] MEDS ORDERED: ONDANSETRON HCL 4 MG/2 ML VIAL IV PUSH PRN (22:00)
[2017-08-31] MEDS ORDERED: BISACODYL 10 MG SUPP RECTAL PRN (22:00)
[2017-08-31 22:03] VITALS: BP 92/39; PULSE 93; RESP 18; O2SAT 99
--- NOTE | 2017-08-31 22:11 | RADRPT ---
EXAM DATE/TIME: 08/31/2017 21:22 [facility] COMPARISON: US LEG BILATERAL VENOUS DOPPLER, December 22, 2015, 22:22. INDICATIONS : Bilateral leg swelling. MEDICAL HISTORY : Congestive heart failure. . Hepatitis C. Headaches. Endocarditis. Pneumonia. Anxiety. SURGICAL HISTORY : Cyst from wrist removed. ENCOUNTER: Sequela ACUITY: 1 day PAIN SCORE: 3/10 LOCATION: Bilateral legs. TECHNIQUE: Venous ultrasound of the left and right leg was performed from the inguinal ligament to the proximal calf. Real-time, color Doppler and spectral tracing, compression and augmentation techniques were us ed. FINDINGS: RIGHT LEG: There is normal compressibility of the deep venous system from the inguinal region to the proximal ca lf. No echogenic clot is seen in the lumen of the common femoral, femoral, popliteal, and posterior tibial veins. There is a normal response of the venous system to proximal and distal augmentation an d respiration. LEFT LEG: There is normal compressibility of the deep venous system from the inguinal region to the proximal ca lf. No echogenic clot is seen in the lumen of the common femoral, femoral, popliteal, and posterior tibial veins. There is a normal response of the venous system to proximal and distal augmentation an d respiration. CONCLUSION: 1. No sonographic evidence for lower extremity DVT. 2. Incidental note of bilateral inguinal adenopathy with the largest on the right measuring 3.3 cm an d the largest on the left measuring 2.6 cm. This finding is nonspecific but is typically reactive in etiology. Luis Leija MD on August 31, 2017 at 22:08 Board Certified Radiologist. This report was verified electronically.
[2017-08-31] MEDS ORDERED: Vancomycin Consult Pharmacy 1 EA OTHER SCH (22:15)
--- NOTE | 2017-08-31 22:15 | HHI.HP ---
[facility] Service Critical Care Medicine Primary Care Physician Adalid Herr MD Admission Diagnosis endocarditis, severe sepsis, CHF, IVDA, Acute kidney failure Diagnosis: Travel History International Travel<30 Days: No Contact w/Intl Traveler <30 Da: No Traveled to Known Affected Are: No History of Present Illness 36-year-old female that presents to the ED for evaluation of shortness of breath and swelling. 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 Patient initially did not mention to anybody that she was doing drugs but she did tell me that she injected herself about 4 days ago. She uses Dilaudid. She states that she's been having fevers. Patient is somewhat somnolent and hard to assess she doesn't really provide much information. Family members at the bedside and he provides more information about the heart. Per patient she'll he takes 2 medications. Patient asked if she is taking any antibiotics and she said yes but when I ask her what kind is she is taking currently she states that she has not been on antibiotics for some time. Patient apparently does follow with a local car body designer but she cannot tell me the name of it. She states that she's been having swelling to her legs for the past month. She denies any recent travel or injury. No other medical issues at this time. No allergies to medication. Review of Systems ROS Limitations: Clinical Condition, Altered Mental Status ROS Unable to obtain patient is lethargic Past Family Social History Allergies: Coded Allergies: No Known Allergies (Verified Allergy, Unknown, 08/31/17) Past Medical History Hepatitis C IV drug abuse Narcotic dependency Bacterial endocarditis Past Surgical History Left forearm surgery Reported Medications Reported Meds & Active Scripts Active Active Prescriptions or Reported Medications Unobtainable Active Ordered Medications Current Medications Medications (Trade) Dose Ordered Sig/Jessica Route PRN Reason Start Time Stop Time Status Last Admin Dose Admin Dopamine HCl/ Dextrose 500 ml @ 0 mls/hr TITRATE PRN IV Blood Pressure Management 08/31/17 21:15 08/31/17 22:01 Terbutaline Sulfate (Brethine Inj) 1 mg UNSCH PRN SQ For Extravasation 08/31/17 21:15 Sodium Chloride 1,000 ml @ 84 mls/hr [id number] IV 08/31/17 21:57 Sodium Chloride (NS Flush) 2 ml UNSCH PRN IV FLUSH FLUSH AFTER USING IV ACCESS 08/31/17 22:00 Sodium Chloride (NS Flush) 2 ml BID IV FLUSH 09/01/17 09:00 Acetaminophen (Tylenol) 650 mg Q6H PRN PO PAIN 1-5 AND/OR FEVER >101F 08/31/17 22:00 Hydromorphone HCl (Dilaudid Pf Inj) 1 mg Q4H PRN IV PUSH PAIN SCALE 6 TO 10 08/31/17 23:00 Famotidine (Pepcid Inj) 10 mg Q12HR IV PUSH 09/01/17 09:00 Lorazepam (Ativan Inj) 2 mg Q4H PRN IV PUSH Agitation/Sedation 08/31/17 22:00 Ondansetron HCl (Zofran Inj) 4 mg Q6H PRN IV PUSH NAUSEA OR VOMITING 08/31/17 22:00 Temazepam (Restoril) 15 mg HS PRN PO INSOMNIA 08/31/17 22:00 Albuterol/ Ipratropium (Duoneb Neb) 1 ampule Q2HR NEB PRN INH WHEEZING 08/31/17 22:00 Heparin Sodium (Porcine) (Heparin Inj) 5,000 units Q8H SQ 08/31/17 22:00 Miscellaneous Information 1 [id number] XX 08/31/17 22:00 Chlorhexidine Gluconate (Chlorhexidine 2% Cloth) 3 pack Taper DAILY@04 TOP 09/01/17 04:00 08/28/18 03:59 Chlorhexidine Gluconate (Chlorhexidine 2% Cloth) 3 pack UNSCH PRN TOP HYGIENIC CARE 08/31/17 22:00 Senna/Docusate Sodium (Armida-Colace) 1 tab BID PO 09/01/17 09:00 Magnesium Hydroxide (Milk Of Magnesia Liq) 30 ml Q12H PRN PO Mild constipation 08/31/17 22:00 Sennosides (Senokot) 17.2 mg Q12H PRN PO Moderate constipation 08/31/17 22:00 Bisacodyl (Dulcolax Supp) 10 mg DAILY PRN RECTAL SEVERE CONSITIPATION 08/31/17 22:00 Lactulose (Lactulose Liq) 30 ml DAILY PRN PO SEVERE CONSITIPATION 08/31/17 22:00 Pharmacy Profile Note 0 ml @ 0 mls/hr UNSCH OTHER 08/31/17 22:15 Piperacillin Sod/ Tazobactam Sod 50 ml @ 100 mls/hr Q6H IV 09/01/17 02:00 Family History No family history of coronary artery disease or malignancy Social History History of IV drug abuse History of opioid dependency Medical marijuana use Physical Exam Vital Signs Vital Signs Date Time Temp Pulse Resp B/P (MAP) Pulse Ox O2 Delivery O2 Flow Rate FiO2 08/31/17 20:11 109 22 86/48 (61) 99 Nasal Cannula 2.00 08/31/17 20:00 22 97 Nasal Cannula 2.00 08/31/17 19:49 24 97 Nasal Cannula 2.00 08/31/17 19:41 100.2 120 18 72/38 (49) 92 Room Air Physical Exam GENERAL: Well-developed young female in moderate distress, somehow lethargic SKIN: Warm and dry. Patient does appear to have puncture wounds from where she states been injecting recently in her arms. HEAD: Atraumatic. Normocephalic. EYES: Pupils equal and round. No scleral icterus. No injection or drainage. ENT: No nasal bleeding or discharge. Mucous membranes pink and moist. Tongue is midline. No uvula deviation. NECK: Trachea midline. No JVD. CARDIOVASCULAR: Regular rate and rhythm. murmurs noted. RESPIRATORY: No accessory muscle use. Clear to auscultation. Breath sounds equal bilaterally. GASTROINTESTINAL: Abdomen soft, non-tender, nondistended. Hepatic and splenic margins not palpable. MUSCULOSKELETAL: Extremities without clubbing, cyanosis, or edema. No obvious deformities. 2+ pitting edema to the lower extremities. Full range of motion of the upper and lower extremities bilaterally. NEUROLOGICAL: Awake and alert. No obvious cranial nerve deficits. Motor grossly within normal limits. Five out of 5 muscle strength in the arms and legs. Normal speech. Laboratory Laboratory Tests Test 08/31/17 20:15 White Blood Count 18.8 Red Blood Count 3.75 Hemoglobin 8.3 Hematocrit 25.2 Mean Corpuscular Volume 67.1 Mean Corpuscular Hemoglobin 22.1 Mean Corpuscular Hemoglobin Concent 32.9 Red Cell Distribution Width 16.5 Platelet Count 119 Mean Platelet Volume 10.6 Neutrophils (%) (Auto) 88.7 Lymphocytes (%) (Auto) 6.0 Monocytes (%) (Auto) 4.1 Eosinophils (%) (Auto) 1.0 Basophils (%) (Auto) 0.2 Neutrophils # (Auto) 16.7 Lymphocytes # (Auto) 1.1 Monocytes # (Auto) 0.8 Eosinophils # (Auto) 0.2 Basophils # (Auto) 0.0 CBC Comment DIFF FINAL Differential Comment Prothrombin Time 13.1 Prothromb Time International Ratio 1.3 Activated Partial Thromboplast Time 32.0 Blood Urea Nitrogen 57 Creatinine 4.50 Random Glucose 107 Total Protein 6.3 Albumin 2.5 Calcium Level 8.1 Magnesium Level 1.9 Alkaline Phosphatase 125 Aspartate Amino Transf (AST/SGOT) 24 Alanine Aminotransferase (ALT/SGPT) LESS THAN 6 Total Bilirubin 0.9 Sodium Level 125 Potassium Level 3.9 Chloride Level 91 Carbon Dioxide Level 21.8 Anion Gap 12 Estimat Glomerular Filtration Rate 11 Lactic Acid Level 1.2 Total Creatine Kinase 48 Troponin I 0.26 B-Type Natriuretic Peptide 106 Lipase 81 Thyroid Stimulating Hormone 3rd Gen 2.000 Salicylates Level LESS THAN 1.7 Acetaminophen Level 6.1 Ethyl Alcohol Level LESS THAN 3 Date/Time Source Procedure Growth Status 08/31/17 20:15 Blood Peripheral Aerobic Blood Culture Pending Received 08/31/17 20:15 Blood Peripheral Anaerobic Blood Culture Pending Received Result Diagram: 08/31/[id number]/31/172014 Imaging Last 24 hours Impressions Chest X-Ray 08/31/171950 Signed Impressions: Service Date/Time: Thursday, August 31, 2017 20:00 - CONCLUSION: 1. No acute cardiopulmonary disease. Luis Leija MD Septic Shock Reassessment Septic shock perfusion: reassessment completed Caprini VTE Risk Assessment Caprini VTE Risk Assessment: Mod/High Risk (score >= 2) Caprini Risk Assessment Model Point Value = 1 Point Value = 2 Point Value = 3 Point Value = 5 Age 41-60 Minor surgery BMI > 25 kg/m2 Swollen legs Varicose veins or History of unexplained or recurrent spontaneous Oral contraceptives or hormone replacement Sepsis (< 1 month) Serious lung disease, including pneumonia (< 1 month) Abnormal pulmonary function Acute myocardial infarction Congestive heart failure (< 1 month) History of inflammatory bowel disease Medical patient at bed rest Age 61-74 Arthroscopic surgery Major open surgery (> 45 min) Laparoscopic surgery (> 45 min) Malignancy Confined to bed (> 72 hours) Immobilizing plaster cast Central venous access Age >= 75 History of VTE Family history of VTE Factor V Leiden Prothrombin [id number] Lupus anticoagulant Anticardiolipin antibodies Elevated serum homocysteine Heparin-induced thrombocytopenia Other congenital or acquired thrombophilia Stroke (< 1 month) Elective arthroplasty Hip, pelvis, or leg fracture Acute spinal cord injury (< 1 month) Prophylaxis Regimen Total Risk Factor Score Risk Level Prophylaxis Regimen 0-1 Low Early ambulation 2 Moderate Order ONE of the following: *Sequential Compression Device (SCD) *Heparin 5000 units SQ BID 3-4 Higher Order ONE of the following medications: *Heparin 5000 units SQ TID *Enoxaparin/Lovenox 40 mg SQ daily (WT < 150 kg, CrCl > 30 mL/min) *Enoxaparin/Lovenox 30 mg SQ daily (WT < 150 kg, CrCl > 10-29 mL/min) *Enoxaparin/Lovenox 30 mg SQ BID (WT < 150 kg, CrCl > 30 mL/min) AND/OR *Sequential Compression Device (SCD) 5 or more Highest Order ONE of the following medications: *Heparin 5000 units SQ TID (Preferred with Epidurals) *Enoxaparin/Lovenox 40 mg SQ daily (WT < 150 kg, CrCl > 30 mL/min) *Enoxaparin/Lovenox 30 mg SQ daily (WT < 150 kg, CrCl > 10-29 mL/min) *Enoxaparin/Lovenox 30 mg SQ BID (WT < 150 kg, CrCl > 30 mL/min) AND *Sequential Compression Device (SCD) Assessment and Plan Assessment and Plan History of fungal endocarditis - History of IVDA - Broad-spectrum antibiotic - Infectious disease consultation Hypotension - Septic shock - Aggressive IV fluid hydration - Broad-spectrum antibiotic - Infectious disease consultation Narcotic dependency - Monitor for withdrawal - Dilaudid when necessary Hepatitis C - Supportive care - Monitor LFTs DVT GI prophylaxis - Teds SCDs - Subcutaneous heparin - Pepcid Critical Care: The total critical care time was 35 minutes. Time to perform other separately billable procedures was not included in the critical care time. Adan Calix MD Aug 31, 2017 22:14
[2017-08-31 22:45] VITALS: BP 99/62; PULSE 88; RESP 18; O2SAT 99
[2017-08-31 23:00] VITALS: BP 102/52; PULSE 90; RESP 21; O2SAT 95
[2017-08-31] MEDS: SODIUM CHLOR 0.9% 1000 ML INJ 1,000 ML IV SCH (23:00)
--- NOTE | 2017-08-31 23:00 | EKG ---
Date Performed: 08/31/2017 Time Performed: 20:11:20 PTAGE: 36 years EKG: SINUS TACHYCARDIA WITH FIRST DEGREE AV BLOCK RIGHT BUNDLE BRANCH BLOCK MINIMAL VOLTAGE CRIT ERIA FOR LVH, CONSIDER NORMAL VARIANT NONSPECIFIC T-WAVE ABNORMALITY ABNORMAL ECG PREVIOUS TRACING : 03/03/2017 10.23 Compared to previous tracing, Sinus rhythm has replaced supraventricular tachycardia. DOCTOR: Channing [place] Interpretating Date/Time 08/31/2017 22:59:10
[2017-08-31 23:18] LABS: BACTERIA, URINE RARE /hpf; BILIRUBIN, URINE NEG (NEG); BLOOD, URINE SMALL (NEG); GLUCOSE,URINE NEG (NEG); KETONE, URINE NEG (NEG); NITRITE,URINE NEG (NEG); PH, URINE 5.5 (5.0-8.5); URINE COLOR DARK-YELLOW (YELLW/STRAW); URINE LEUKOCYTE ESTERASE NEG (NEG)
[2017-09-01] VITALS (23 sets, daily range): BP systolic 97–125; BP diastolic 51–68; PULSE 81–103; RESP 20–30; TEMP 97.6–99.6; O2SAT 92–99
[2017-09-01] MEDS ORDERED: PIPERACIL-TAZO 4.5 GM PREMIX 100 ML IV SCH (02:00)
[2017-09-01] MEDS ORDERED: PIPERACIL-TAZO 2.25 GM PREMIX 50 ML IV SCH (02:00)
[2017-09-01 02:49] LABS: AUTOMATED NEUTROPHIL # 13.3 TH/MM3 (1.8-7.7); BASOPHIL # 0.1 TH/MM3 (0-0.2); BASOPHIL % 0.7 % (0.0-2.0); EOSINOPHIL # 0.2 TH/MM3 (0-0.4); EOSINOPHIL % 1.5 % (0.0-4.0); HEMATOCRIT 24.7 % (35.0-46.0); HEMOGLOBIN 8.1 GM/DL (11.6-15.3); LYMPH % 9.2 % (9.0-44.0); LYMPHOCYTE # 1.4 TH/MM3 (1.0-4.8); MEAN CELL VOLUME 68.5 FL (80.0-100.0); MEAN CORPUSCULAR HEMOGLOBIN 22.5 PG (27.0-34.0); MEAN CORPUSCULAR HGB CONC 32.8 % (32.0-36.0); MONO % 4.1 % (0.0-8.0); MONOCYTE # 0.6 TH/MM3 (0-0.9); NEUT % 84.5 % (16.0-70.0); PLATELET COUNT 93 TH/MM3 (150-450); RED BLOOD COUNT 3.61 MIL/MM3 (4.00-5.30); WHITE BLOOD COUNT 15.7 TH/MM3 (4.0-11.0)
[2017-09-01 02:58] LABS: INTERNATIONAL NORMALIZED RATIO 1.3 RATIO; PROTHROMBIN TIME - PATIENT 12.8 SEC (9.8-11.6)
[2017-09-01 03:12] LABS: ALBUMIN 2.3 GM/DL (3.4-5.0); ALT (GPT) 11 U/L (10-53); AST (GOT) 30 U/L (15-37); BICARBONATE 25.7 MEQ/L (21.0-32.0); BLOOD UREA NITROGEN 56 MG/DL (7-18); CALCIUM 7.9 MG/DL (8.5-10.1); CHLORIDE 96 MEQ/L (98-107); CREATININE 3.93 MG/DL (0.50-1.00); GLOMERULAR FILTRATION RATE 13 ML/MIN (>89); GLUCOSE,RANDOM 115 MG/DL (74-106); MAGNESIUM 2.3 MG/DL (1.5-2.5); PHOSPHORUS 5.2 MG/DL (2.5-4.9); SODIUM (NA) 132 MEQ/L (136-145)
[2017-09-01 03:16] LABS: ALKALINE PHOSPHATASE 111 U/L (45-117); TOTAL BILIRUBIN ADULT 1.8 MG/DL (0.2-1.0); TOTAL PROTEIN 6.1 GM/DL (6.4-8.2); TROPONIN I 0.26 NG/ML (0.02-0.05)
[2017-09-01] MEDS: CHLORHEXIDINE GLUCONATE 2 % 1 PACK (2 CLOTHS) TOP SCH (04:00)
--- NOTE | 2017-09-01 06:04 | RADRPT ---
EXAM DATE/TIME: 09/01/2017 03:56 [facility] COMPARISON: CHEST SINGLE AP, August 31, 2017, 20:00. INDICATIONS : Shortness of breath, possible pulmonary disease. MEDICAL HISTORY : Cardiovascular disease. Congestive heart failure. Hepatitis C. SURGICAL HISTORY : AVR ENCOUNTER: Subsequent ACUITY: 2 days PAIN SCORE: 0/10 LOCATION: Bilateral chest FINDINGS: Clear lungs. No pleural effusion or pneumothorax. Heart size upper limits of normal. Previous CABG. CONCLUSION: No acute cardiopulmonary disease demonstrated. Adalid Perry MD on September 01, 2017 at 6:02 Board Certified Radiologist. This report was verified electronically.
[2017-09-01] MEDS: HEPARIN SODIUM - SQ 10,000 UNITS/ML VIAL SQ SCH ×3 (07:01→21:25)
[2017-09-01] MEDS: HYDROmorphone HCL PF 2 MG/ML VIAL IV PUSH PRN ×4 (08:50→21:31)
[2017-09-01] MEDS: DOCUSATE SODIUM 50 MG/SENNA 8.6 MG TAB PO SCH ×2 (09:00→20:11)
--- NOTE | 2017-09-01 09:08 | PD.PROCEDR ---
Central Line Procedure REASON FOR PROCEDURE Central venous access PROCEDURE PERFORMED Central line placement: RIJ central line CONSENT Informed consent for procedure was obtained ad time out performed. The risks and benefits of the procedure were discussed to include but limited to bleeding , clot formation, infection, and even . ANESTHESIA Local injection of 1% Lidocaine DESCRIPTION OF THE PROCEDURE The patient was placed in supine, mild Trendelenburg position. The area was exposed and cleansed with ChloraPrep, times two. Large sterile drape was used to cover the patient, with the site exposed, under sterile conditions including cap, face mask, sterile gown, and sterile gloves. On single attempt, the introducer needle was inserted with negative pressure in syringe and venous flash was obtained. The guide wire was then advanced without any restriction and the needle was removed. The dilator was used without any complications. Using Seldinger technique the 20 cm 7F triple lumen catheter was advanced over the guide wire to a depth of 20 centimeters. The guide wire was removed. All ports were aspirated with dark venous blood return and flushed easily with sterile saline. All ports were capped. Antibiotic disc was placed around central line at puncture site. The central line was secured to the skin with two interrupted 2.0 silk sutures. The area was bandaged with sterile see- through central line bandage. RADIOLOGICAL DATA Ultrasound guidance was used to locate RIJ central line. Doppler/color flow was used to confirm venous flow. COMPLICATIONS: No apparent complications ESTIMATED BLOOD LOSS: Less than 1 cc. Jennifer Cordoba MD Sep 01, 2017 09:08
--- NOTE | 2017-09-01 09:10 | HHI.CCPN ---
Subjective Remarks/Hospital Course 36-year-old female that presents to the ED for evaluation of shortness of breath and swelling. 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 Patient initially did not mention to anybody that she was doing drugs but she did tell me that she injected herself about 4 days ago. She uses Dilaudid. She states that she's been having fevers. Patient is somewhat somnolent and hard to assess she doesn't really provide much information. Family members at the bedside and he provides more information about the heart. Per patient she'll he takes 2 medications. Patient asked if she is taking any antibiotics and she said yes but when I ask her what kind is she is taking currently she states that she has not been on antibiotics for some time. Patient apparently does follow with a local security lead but she cannot tell me the name of it. She states that she's been having swelling to her legs for the past month. She denies any recent travel or injury. No other medical issues at this time. No allergies to medication. SUBJ 09/01: remains critical on Dopamine 10 mcg/ min. Appears ill. Limited bedside echo did not show any large vegetation, but exam was limited, tricuspid and aortic valve not well visualized. Also states that had right breast abscess 2 months ago, drained by herself. Now may have abscess vs scar tissue. Injects upper arm and bilateral breasts. US of right breast ordered Objective Vital Signs Date Time Temp Pulse Resp B/P (MAP) Pulse Ox O2 Delivery O2 Flow Rate FiO2 09/01/17 06:43 96 106/57 09/01/17 06:00 24 94 09/01/17 04:00 98.7 09/01/17 00:55 Nasal Cannula 2.00 Intake and Output 09/01/17 09/01/17 09/02/17 08:00 16:00 00:00 Intake Total 726 ml Output Total 2600 ml Balance -1874 ml Result Diagram: 09/01/17 0236 09/01/17 0236 Imaging Last 24 hours Impressions Chest X-Ray 08/31/171950 Signed Impressions: Service Date/Time: Thursday, August 31, 2017 20:00 - CONCLUSION: 1. No acute cardiopulmonary disease. Lius Leija MD Objective Remarks GENERAL: Well-developed young female in moderate distress, somehow lethargic. On 10 mcg/kg/min of dopamine SKIN: Warm and dry. Patient does appear to have puncture wounds from where she states been injecting recently in her arms, bilateral upper breast. HEAD: Atraumatic. Normocephalic. EYES: Pupils equal and round. No scleral icterus. No injection or drainage. ENT: No nasal bleeding or discharge. Mucous membranes pink and moist. Tongue is midline. No uvula deviation. NECK: Trachea midline. No JVD. CHEST: Bilateral upper breast has puncture wounds from injection. Questionable abscess versus fibrous tissue right upper quadrant of right breast CARDIOVASCULAR: Regular rate and rhythm. Systolic and diastolic murmurs best heard in the left sternal border. Limited bedside echo did not show any large vegetations, tricuspid and aortic valve not well visualized RESPIRATORY: Positive accessory muscle use. Bilateral coarse rhonchi and few crackles are. Breath sounds equal bilaterally. GASTROINTESTINAL: Abdomen soft, non-tender, nondistended. Hepatic and splenic margins not palpable. MUSCULOSKELETAL: 2+ pitting edema to the lower extremities. Erythematous rash of the left lower extremity anterior campbell. Full range of motion of the upper and lower extremities bilaterally. NEUROLOGICAL: Awake and alert. No obvious cranial nerve deficits. Motor grossly within normal limits. Five out of 5 muscle strength in the arms and legs. Normal speech. 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 - Infectious disease consultation - Aggressive fluid resuscitation given additional 1 L fluid bolus and increase normal saline infusion to 150 mL/h Resp: Respiratory insufficiency Hypoxia - Oxygen to keep oxygen saturation above 90% - DuoNeb every 6 hours as needed GI: Hepatitis C - Heart healthy diet - IV famotidine MSK: Superficial thrombophlebitis/cellulitis involving left lower extremity ( anterior campbell) History of right breast abscess with possible recurrence - Ultrasound of the left lower extremity negative for DVT - Check right breast ultrasound for abscess : Acute on chronic kidney disease - Acute renal failure secondary to ATN and dehydration - Continue aggressive fluid resuscitation - Check renal ultrasound Endo: - Electrolyte replacement per protocol carefully Heme: - Monitor CBC CMP and coags DVT GI prophylaxis - Teds SCDs - Subcutaneous heparin - Pepcid Critical Care: The total critical care time was 40 minutes. Time to perform other separately billable procedures was not included in the critical care time. Jennifer Cordoba MD Sep 01, 2017 09:10
[2017-09-01] MEDS ORDERED: TERBUTALINE INJ 1 MG/ML AMP SQ PRN (09:15)
[2017-09-01] MEDS ORDERED: SODIUM CHLOR 0.9% 1000 ML INJ 1,000 ML IV ONE (09:45)
--- NOTE | 2017-09-01 10:15 | RADRPT ---
EXAM DATE/TIME: 09/01/2017 09:36 [facility] COMPARISON: CHEST SINGLE AP, September 01, 2017, 3:56. INDICATIONS : Confirm central line placement. MEDICAL HISTORY : Cardiovascular disease. Congestive heart failure. Hepatitis C. SURGICAL HISTORY : AVR ENCOUNTER: Subsequent ACUITY: 1 day PAIN SCORE: Non-responsive. LOCATION: Bilateral chest FINDINGS: The patient is status post sternotomy. The heart size is borderline enlarged. There is a right kinesiology internship al jugular central line in place with the tip overlying the right atrium. No pneumothorax is seen. Th e lungs appear grossly clear. The costophrenic angles are clear. CONCLUSION: Right internal jugular central line in place with the tip overlying the SVC. A pneumothorax is not se en. Adalid Haney MD on September 01, 2017 at 10:11 Board Certified Radiologist. This report was verified electronically.
--- NOTE | 2017-09-01 11:20 | RADRPT ---
EXAM DATE/TIME: 09/01/2017 10:48 [facility] COMPARISON: No previous studies available for comparison. INDICATIONS : Abscess/ Scar Tissue MEDICAL HISTORY : Congestive heart failure. . Hepatitis C. Headaches. Endocarditis. SURGICAL HISTORY : Cyst removed Right wrist. ENCOUNTER: Initial ACUITY: 1 month PAIN SCORE: 0/10 LOCATION: Right Breast. FINDINGS: A targeted ultrasound of the right breast in the region of clinical concern at the 10 to 11: 00 location has been performed. No mass or fluid collection is seen. CONCLUSION: Negative targeted right breast ultrasound examination. Adalid Haney MD on September 01, 2017 at 11:14 Board Certified Radiologist. This report was verified electronically.
--- NOTE | 2017-09-01 11:51 | RADRPT ---
EXAM DATE/TIME: 09/01/2017 10:53 [facility] COMPARISON: No previous studies available for comparison. INDICATIONS : Renal Failure. MEDICAL HISTORY : Congestive heart failure. . Hepatitis C. Headaches. Endocarditis. SURGICAL HISTORY : Cyst removed from Right wrist. ENCOUNTER: Initial ACUITY: 1 day PAIN SCORE: 0/10 LOCATION: Bilateral flank MEASUREMENTS: RIGHT KIDNEY: 13.8 x 6.4 x 4.6 cm LEFT KIDNEY: 13.7 x 4.8 x 5.2 cm FINDINGS: RIGHT KIDNEY: Renal cortex is normal in thickness and echotexture. No hydronephrosis, stone, or mass. LEFT KIDNEY: Renal cortex is normal in thickness and echotexture. No hydronephrosis, stone, or mass. BLADDER: There is a Watson catheter in urinary bladder. The bladder is decompressed. The bladder wall appears t o be thickened at 1.1 cm. Incidental finding of prominent splenomegaly. The spleen measures 21.0 cm. There is a splenule in the splenic hilum. CONCLUSION: 1. No evidence of hydronephrosis. 2. Thickening of the urinary bladder wall a 1.1 cm. 3. Prominent splenomegaly. Baldemar Pineda MD on September 01, 2017 at 11:48 Board Certified Radiologist. This report was verified electronically.
[2017-09-01] MEDS: NOREPINEPHRINE INJ 4 MG in SODIUM CHLOR 0.9% 250 ML INJ 246 ML IV PRN (12:12)
[2017-09-01] MEDS ORDERED: VANCOMYCIN 1,000 MG/NS 250 ML IV ONE ×2 (13:00)
[2017-09-01] MEDS: SODIUM CHLOR 0.9% 1000 ML INJ 1,000 ML IV SCH ×2 (13:15→21:28)
[2017-09-01] MEDS: FAMOTIDINE 20 MG/2 ML VIAL IV PUSH SCH ×2 (14:22→20:11)
[2017-09-01] MEDS: SODIUM CHLORIDE 0.9% FLUSH 10 ML FLUSH IV FLUSH SCH ×2 (14:22→20:11)
[2017-09-01] MEDS: AMPICILLIN INJ 2,000 MG in SODIUM CHLORIDE 0.9% INJ 100 ML IV SCH ×2 (14:23→20:11)
[2017-09-01] MEDS: cefTRIAXone INJ 1,000 MG in SODIUM CHLORIDE 0.9% INJ 100 ML IV SCH (15:07)
--- NOTE | 2017-09-01 17:44 | MB ---
cc: BEBETO VENEGAS MD, JAN MD DATE OF CONSULTATION: 09/01/2017 REQUESTING PHYSICIAN: Dr. Calix. REASON FOR CONSULTATION: Endocarditis. Sepsis. HISTORY OF PRESENT ILLNESS This is a 36-year-old white female who has a history of endocarditis and has been admitted several times for the same. The patient developed shortness of breath, fever and chills, and presented to the emergency department. The patient is noted to be actively using IV drugs. She has history of significant CHF from prior valvular heart disease related to endocarditis. She states that she started feeling short of breath about a week ago and the shortness of breath worsened. The patient has profuse cough currently. She has lacy purpuric changes at the distal left tibia and punctate purplish lesion at the plantar aspect of the left great toe. The left lower extremity is very tender on palpation. It is warm. Blood cultures were taken on admission and has gram-positive cocci in both sets. The patient was last treated for endocarditis in February 2017. She received IV antibiotics for Enterococcus faecalis and staph aureus. She also had staph aureus in the cerebrospinal fluid at that time. After she completed the IV antibiotics in April she was put on doxycycline prophylaxis. She reports that she has not been taking the doxycycline. The patient has had aortic valve endocarditis due to MSSA in 2010 and she had prosthetic aortic valve replacement in 2010 and then redo aortic valve replacement in December 2015 and she subsequently has had further bouts of endocarditis with dustin and also the Enterococcus faecalis and staph aureus. PAST MEDICAL HISTORY: Hepatitis C. IV drug use. MEDICATIONS: 1. Vancomycin one dose given. 2. Piperacillin/tazobactam. 3. Norepinephrine. 4. Armida-Colace. 5. Heparin. 6. Dopamine. SOCIAL HISTORY: Positive occasional alcohol. No tobacco. IV drug use in the form of Dilaudid, oxycodone. The patient also uses marijuana. FAMILY HISTORY: Noncontributory. REVIEW OF SYSTEMS: Significant for cough, chills and pain in the left lower extremities, and fever. PHYSICAL EXAMINATION This is an obese female who is in mild distress because of coughing. VITAL SIGNS: Include temperature 98.3, blood pressure 113/59, heart rate 92. Respiratory rate 16. HEENT: Head atraumatic. Extraocular movements grossly intact. Pupils reactive to light. No icterus. Oropharynx moist mucosa, no lesions. Neck: Supple without adenopathy. Lungs: Decreased breath sounds throughout. Heart: 5/6 blowing systolic murmur at the upper right sternal border. Abdomen: Bowel sounds present, soft, obese, nontender. Rectal: Not performed. Extremities: Diffuse 2+ edema of the lower extremities. Left tibia distally has a lacy purpuric discoloration of the skin and there is punctate purpuric lesion at the plantar aspect of the right great toe. The leg is extremely tender on palpation. It is warm. No calf tenderness. No nail bed hemorrhages. The skin otherwise has no diffuse rash. Neuro: No gross focal findings. Psychiatric: The patient is calm and cooperative. LABORATORY DATA WBC 15.7, platelets 93, hemoglobin 8.1, 84% neutrophils, creatinine 3.93, BUN 56. Sodium 132, liver function tests normal, albumin 2.3. IMPRESSION 1. Sepsis. 2. Bacteremia. 3. History of prostatic aortic valve and so likely recurrent prosthetic valve endocarditis. 4. Leukocytosis secondary to sepsis. 5. Left lower extremity cellulitis/embolic lesions from showering of emboli from endocarditis. 6. Patient with profuse cough but negative chest x-ray. Obtain influenza testing. 7. Acute renal failure. RECOMMENDATIONS 1. Begin ampicillin intravenous given her prior history of endocarditis due to Enterococcus. 2. Continue rifampin intravenous. 3. Add ceftriaxone. 4. Monitor the blood cultures. 5. Discontinue Piperacillin/tazobactam. 6. Monitor clinical status. The patient is very critically-ill and her outlook is very poor with repeated prostatic valve endocarditis. She indicated that she has had difficulty getting into rehab programs for drugs. This is a grave problem in this young lady who is not able to quit using IV drugs of her own free will. Thank you for the consultation. Her progress will be monitored. Bebeto Venegas MD FD/JAVED /11:34 AM /4:16 PM [facility]
[2017-09-01] MEDS: RIFAMPIN 150 MG CAP PO SCH (20:11)
[2017-09-01] MEDS: TEMAZEPAM 15 MG CAP PO PRN (21:26)
[2017-09-02] VITALS (22 sets, daily range): BP systolic 87–114; BP diastolic 55–70; PULSE 95–110; RESP 21–38; TEMP 99.9–101.9; O2SAT 92–98
[2017-09-02] MEDS: cefTRIAXone INJ 1,000 MG in SODIUM CHLORIDE 0.9% INJ 100 ML IV SCH ×3 (01:00→23:49)
[2017-09-02] MEDS: HYDROmorphone HCL PF 2 MG/ML VIAL IV PUSH PRN ×6 (01:33→21:26)
[2017-09-02] MEDS: AMPICILLIN INJ 2,000 MG in SODIUM CHLORIDE 0.9% INJ 100 ML IV SCH ×4 (02:00→19:37)
[2017-09-02] MEDS: CHLORHEXIDINE GLUCONATE 2 % 1 PACK (2 CLOTHS) TOP SCH (04:00)
[2017-09-02] MEDS: HEPARIN SODIUM - SQ 10,000 UNITS/ML VIAL SQ SCH (05:24)
[2017-09-02] MEDS: SODIUM CHLOR 0.9% 1000 ML INJ 1,000 ML IV SCH (05:46)
--- NOTE | 2017-09-02 07:06 | ECHRPT ---
Indication: CONCLUSIONS Normal left ventricular size and wall thickness. The left ventricular systolic function is normal wi th an estimated ejection fraction in the range of 50-55%. Normal wall motion. Linear mobile echodensity within the right atrial cavity, possibly representing the tip of a central line, or Eustachian valve. It's appearance it not consistent with vegetation. The right atrial size is mild ly enlarged. The aortic valve is not well visualized. It may be a bioprosthetic valve. Aortic valve mean gradi ent was measured at 51 mmHg suggesting severe aortic stenosis; however, the dermatology technician may have included th e tricuspid regurgitation jet in the measurement, falsely elevating the aortic mean gradient. The tricuspid valve is not well visualized. There is mild tricuspid valve regurgitation. The estimated pulmonary arterial pressure is 40 mmHg. BP: / HR: Rhythm: MEASUREMENTS (Male / Female) Normal Values Technical Quality: 2D ECHO LV Diastolic Diameter PLAX 4.2 cm 4.2 - 5.9 / 3.9 - 5.3 cm LV Systolic Diameter PLAX 3.1 cm IVS Diastolic Thickness 1.3 cm 0.6 - 1.0 / 0.6 - 0.9 cm LVPW Diastolic Thickness 1.2 cm 0.6 - 1.0 / 0.6 - 0.9 cm LV Relative Wall Thickness 0.6 RV Internal Dim ED PLAX 3.1 cm LVOT Diameter 2.0 cm M-MODE Aortic Root Diameter MM 4.0 cm LA Systolic Diameter MM 4.2 cm LA Ao Ratio MM 1.1 AV Cusp Separation MM 1.6 cm DOPPLER AV Peak Velocity 464.0 cm/s AV Peak Gradient 86.1 mmHg AV Mean Gradient 51.0 mmHg AV Velocity Time Integral 85.3 cm LVOT Peak Velocity 97.0 cm/s LVOT Peak Gradient 3.8 mmHg LVOT Velocity Time Integral 19.8 cm AV Area Cont Eq vti 0.7 cm AV Area Cont Eq pk 0.7 cm TR Peak Velocity 277.0 cm/s TR Peak Gradient 30.7 mmHg Right Atrial Pressure 10.0 mmHg Pulmonary Artery Systolic Pressu 40.7 mmHg Right Ventricular Systolic Press 40.7 mmHg FINDINGS LEFT VENTRICLE Normal left ventricular size and wall thickness. The left ventricular systolic function is normal wi th an estimated ejection fraction in the range of 50-55%. Normal wall motion. RIGHT VENTRICLE The right ventricular size is normal. LEFT ATRIUM The left atrial size is upper limits of normal. RIGHT ATRIUM Linear mobile echodensity within the right atrial cavity, possibly representing the tip of a central line, or Eustachian valve. It's appearance it not consistent with vegetation. The right atrial size is mild ly enlarged. ATRIAL SEPTUM Normal atrial septal thickness without atrial level shunting by limited color doppler interrogation. AORTA The aortic root and proximal ascending aorta are not well visualized. MITRAL VALVE No mitral valve regurgitation. AORTIC VALVE The aortic valve is not well visualized. It may be a bioprosthetic valve. Aortic valve mean gradi ent was measured at 51 mmHg suggesting severe aortic stenosis; however, the dermatology technician may have included th e tricuspid regurgitation jet in the measurement, falsely elevating the aortic mean gradient. TRICUSPID VALVE The tricuspid valve is not well visualized. There is mild tricuspid valve regurgitation. The estimated pulmonary arterial pressure is 40 mmHg. PULMONARY VALVE Trivial pulmonary valve regurgitation. VESSELS The inferior vena cava is dilated. PERICARDIUM No pericardial effusion. Channing Colorado MD (Electronically Signed) Final Date:02 September 2017 07:05
[2017-09-02 07:16] LABS: AUTOMATED NEUTROPHIL # 11.3 TH/MM3 (1.8-7.7); BASOPHIL % 0.3 % (0.0-2.0); EOSINOPHIL # 0.1 TH/MM3 (0-0.4); EOSINOPHIL % 0.4 % (0.0-4.0); HEMATOCRIT 21.8 % (35.0-46.0); HEMOGLOBIN 7.2 GM/DL (11.6-15.3); LYMPH % 8.5 % (9.0-44.0); LYMPHOCYTE # 1.2 TH/MM3 (1.0-4.8); MEAN CELL VOLUME 67.9 FL (80.0-100.0); MEAN CORPUSCULAR HEMOGLOBIN 22.4 PG (27.0-34.0); MONO % 10.7 % (0.0-8.0); MONOCYTE # 1.5 TH/MM3 (0-0.9); NEUT % 80.1 % (16.0-70.0); PLATELET COUNT 115 TH/MM3 (150-450); RED BLOOD COUNT 3.21 MIL/MM3 (4.00-5.30); RED CELL DISTRIBUTION WIDTH 16.6 % (11.6-17.2); WHITE BLOOD COUNT 14.1 TH/MM3 (4.0-11.0)
[2017-09-02] MEDS ORDERED: HYDROmorphone HCL PF 2 MG/ML VIAL IV PUSH ONE (07:30)
[2017-09-02] MEDS: DOCUSATE SODIUM 50 MG/SENNA 8.6 MG TAB PO SCH ×2 (07:42→20:13)
--- NOTE | 2017-09-02 07:43 | HHI.CCPN ---
Subjective Remarks/Hospital Course 36-year-old female that presents to the ED for evaluation of shortness of breath and swelling. 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 Patient initially did not mention to anybody that she was doing drugs but she did tell me that she injected herself about 4 days ago. She uses Dilaudid. She states that she's been having fevers. Patient is somewhat somnolent and hard to assess she doesn't really provide much information. Family members at the bedside and he provides more information about the heart. Per patient she'll he takes 2 medications. Patient asked if she is taking any antibiotics and she said yes but when I ask her what kind is she is taking currently she states that she has not been on antibiotics for some time. Patient apparently does follow with a local counterperson but she cannot tell me the name of it. She states that she's been having swelling to her legs for the past month. She denies any recent travel or injury. No other medical issues at this time. No allergies to medication. SUBJ 09/01: remains critical on Dopamine 10 mcg/ min. Appears ill. Limited bedside echo did not show any large vegetation, but exam was limited, tricuspid and aortic valve not well visualized. Also states that had right breast abscess 2 months ago, drained by herself. Now may have abscess vs scar tissue. Injects upper arm and bilateral breasts. US of right breast ordered 09/02: Remains on 3 mcg/min of Levophed. Complaints of severe left lower extremity pain. Erythematous purpuric purple discoloration of the left lower anterior segment left dorsum of the foot with cyanotic nailbeds. Weak DP pulses+ . 2D Echo failed to reveal definite vegetation. Will consider RACHEL Objective Vital Signs Date Time Temp Pulse Resp B/P (MAP) Pulse Ox O2 Delivery O2 Flow Rate FiO2 09/02/17 06:00 98 09/02/17 05:48 114/55 09/02/17 04:00 100.4 26 93 09/01/17 20:22 Nasal Cannula 2.00 Intake and Output 09/02/17 09/02/17 09/03/17 08:00 16:00 00:00 Intake Total 1356 ml Output Total 2450 ml Balance -1094 ml Result Diagram: 09/02/17 0644 09/01/17 0236 Imaging Last 24 hours Impressions Chest X-Ray 08/31/171950 Signed Impressions: Service Date/Time: Thursday, August 31, 2017 20:00 - CONCLUSION: 1. No acute cardiopulmonary disease. Luis Leija MD Objective Remarks GENERAL: Well-developed young female in severe distress due to pain, somehow lethargic. On 3 mcg/min of Levophed SKIN: Warm and dry. Patient does appear to have puncture wounds from where she states been injecting recently in her arms, bilateral upper breast. HEAD: Atraumatic. Normocephalic. EYES: Pupils equal and round. No scleral icterus. No injection or drainage. ENT: No nasal bleeding or discharge. Mucous membranes pink and moist. Tongue is midline. No uvula deviation. NECK: Trachea midline. No JVD. CHEST: Bilateral upper breast has puncture wounds from injection. Questionable abscess versus fibrous tissue right upper quadrant of right breast CARDIOVASCULAR: Regular rate and rhythm. Systolic and diastolic murmurs best heard in the left sternal border. Limited bedside echo did not show any large vegetations, tricuspid and aortic valve not well visualized RESPIRATORY: Positive accessory muscle use. Bilateral coarse rhonchi and few crackles are. Breath sounds equal bilaterally. GASTROINTESTINAL: Abdomen soft, non-tender, nondistended. Hepatic and splenic margins not palpable. MUSCULOSKELETAL: 2+ pitting edema to the lower extremities. Erythematous purpuric rash of the left lower extremity anterior campbell and foot, punctate lesion plantar right great toe. Left leg extremely tender below the left knee. Weak DP pulses bilaterally NEUROLOGICAL: Awake and alert. Motor grossly within normal limits. Five out of 5 muscle strength in the arms and legs. Normal speech. 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 - Now with GPC in blood, ID pending - Previously multiple episodes of , PVE due to MSSA, Ent fecalis in 04/2017, PVE October 2016 for tricuspid valve PVE - Diana parapsilosis , Streptococci - Previous bacterial meningitis 2/2 MSSA - embolic etiology - Broad-spectrum antibiotic with Vanc, ampicillin, rifampin and ceftriaxone. - Vascular surgery consult for probable emboli to left LE. D/W Dr. Holloway - ?Anticoagulation with Heparin after vascular surgery consult. - Infectious disease consultation appreciated - Aggressive fluid resuscitation, change to bicarb gtt 125 ml/hr - Levophed to keep map above 65, currently at 3 mcg/min Resp: Respiratory insufficiency Hypoxia - Oxygen to keep oxygen saturation above 90% - DuoNeb every 6 hours as needed GI: Hepatitis C - Heart healthy diet - IV famotidine MSK: History of right breast abscess with possible recurrence - Ultrasound of the left lower extremity negative for DVT - Right breast ultrasound negative for abscess : Acute on chronic kidney disease - Acute renal failure secondary to ATN and dehydration - Continue aggressive fluid resuscitation, change fluid to bicarb with 1/2 NS at 125 ml per hour - Renal ultrasound-thickening of urinary bladder Endo: - Electrolyte replacement as needed Heme: - Monitor CBC CMP and coags DVT GI prophylaxis - Teds SCDs - Subcutaneous heparin, may need IV Heparin - Pepcid Critical Care: The total critical care time was 40 minutes. Time to perform other separately billable procedures was not included in the critical care time. D/W Jennifer Grubbs MD Sep 02, 2017 07:43
[2017-09-02 07:54] LABS: ALBUMIN 2.1 GM/DL (3.4-5.0); ALKALINE PHOSPHATASE 89 U/L (45-117); ALT (GPT) 11 U/L (10-53); AST (GOT) 35 U/L (15-37); BICARBONATE 25.7 MEQ/L (21.0-32.0); BLOOD UREA NITROGEN 25 MG/DL (7-18); CALCIUM 7.9 MG/DL (8.5-10.1); CHLORIDE 101 MEQ/L (98-107); CREATININE 1.13 MG/DL (0.50-1.00); GLOMERULAR FILTRATION RATE 55 ML/MIN (>89); GLUCOSE,RANDOM 113 MG/DL (74-106); PHOSPHORUS 3.3 MG/DL (2.5-4.9); RANDOM VANCOMYCIN 7.1 COMMENT; SODIUM (NA) 134 MEQ/L (136-145); TOTAL BILIRUBIN ADULT 1.2 MG/DL (0.2-1.0); TOTAL PROTEIN 6.1 GM/DL (6.4-8.2)
[2017-09-02] MEDS: FAMOTIDINE 20 MG/2 ML VIAL IV PUSH SCH ×2 (08:47→20:13)
[2017-09-02] MEDS: SODIUM CHLORIDE 0.9% FLUSH 10 ML FLUSH IV FLUSH SCH ×2 (08:48→20:12)
[2017-09-02] MEDS: RIFAMPIN 150 MG CAP PO SCH ×2 (08:48→20:13)
--- NOTE | 2017-09-02 09:46 | PD.VS.CON ---
History of Present Illness Chief Complaint: L LE ischemia Consult Requested by: Dr. Cordoba, critical care History of Present Illness 36 yo female with h/o bacterial endocarditis s/p surgical valve replacement x 2 (2010, 2015) adm with MS changes and found to have cold L LE. Pt notes extreme pain in L LE for several days. Motor intact. No history of DVT. Past/Family/Social History Past Medical History endocarditis (E faecalis, staph, dustin) IVDA hep C Past Surgical History valve replacement 2010 and 2015 Social History IVDA Family History NC Home Medications Discontinued Scripts Metoprolol Tartrate (Metoprolol Tartrate) 25 Mg Tab, 12.5 MG PO DAILY for cad for 30 Days, #15 TAB 0 Refills Prov:Winnie Perrin MD 04/12/17 Doxycycline Hyclate (Doxycycline Hyclate) 100 Mg Cap, 100 MG PO BID for Infection for 60 Days, #120 CAP 0 Refills Prov:Swati Spaulding MD 04/12/17 Coded Allergies: No Known Allergies (Verified Allergy, Unknown, 08/31/17) Review of Systems Constitutional: COMPLAINS OF: Fever Cardiovascular: COMPLAINS OF: Dyspnea on Exertion, Lower Extremity Edema Musculoskeletal: COMPLAINS OF: Joint pain, Muscle aches, Stiffness, Joint Swelling Integumentary: COMPLAINS OF: Abnormal pigmentation Physical Exam Vitals/I&O Date Time Temp Pulse Resp B/P (MAP) Pulse Ox O2 Delivery O2 Flow Rate FiO2 09/02/17 08:00 97 09/02/17 08:00 100.2 97 30 99/58 (72) 94 09/02/17 07:00 100 09/02/17 06:00 98 09/02/17 05:48 97 114/55 09/02/17 04:00 99 09/02/17 04:00 100.4 99 26 92/58 (69) 93 09/02/17 03:00 101 09/02/17 02:03 20 09/02/17 02:00 103 09/02/17 02:00 103 90/57 09/02/17 00:00 110 09/02/17 00:00 100.2 110 31 104/68 (80) 96 09/01/17 22:00 103 09/01/17 20:22 94 Nasal Cannula 2.00 09/01/17 20:00 99.6 103 125/62 (83) 96 09/01/17 20:00 103 09/01/17 19:00 99 114/69 09/01/17 18:00 100 09/01/17 16:00 90 09/01/17 16:00 98.3 90 26 109/56 (73) 99 09/01/17 14:23 96 110/59 09/01/17 14:00 93 24 110/59 (76) 95 09/01/17 14:00 93 09/01/17 13:14 98 110/60 09/01/17 13:00 96 09/01/17 13:00 96 22 110/60 (77) 95 09/01/17 12:12 93 111/58 09/01/17 12:00 92 09/01/17 12:00 98.0 92 28 111/58 (75) 94 09/01/17 11:00 90 09/01/17 11:00 90 30 113/59 (77) 93 09/01/17 10:00 92 09/01/17 10:00 92 24 111/61 (78) 92 09/02/17 09/02/17 09/02/17 07:00 15:00 23:00 Intake Total 1456 ml Output Total 2450 ml Balance -994 ml Neuro: mild distress from pain HEENT: NC/AT; pupils equal anicteric sclera Neck: no JVD Heart: reg rate Lungs: clear Vascular: difficult to palpate femoral pulses Strong multiphasic L DP and PT Extremities: motor intact L LE skin changes on distal anterior calf but foot largely spared Laboratory Tests Test 09/01/17 12:50 09/02/17 06:44 Troponin I 0.15 White Blood Count 14.1 Red Blood Count 3.21 Hemoglobin 7.2 Hematocrit 21.8 Mean Corpuscular Volume 67.9 Mean Corpuscular Hemoglobin 22.4 Mean Corpuscular Hemoglobin Concent 33.0 Red Cell Distribution Width 16.6 Platelet Count 115 Mean Platelet Volume 10.0 Neutrophils (%) (Auto) 80.1 Lymphocytes (%) (Auto) 8.5 Monocytes (%) (Auto) 10.7 Eosinophils (%) (Auto) 0.4 Basophils (%) (Auto) 0.3 Neutrophils # (Auto) 11.3 Lymphocytes # (Auto) 1.2 Monocytes # (Auto) 1.5 Eosinophils # (Auto) 0.1 Basophils # (Auto) 0.0 CBC Comment DIFF FINAL Differential Comment Blood Urea Nitrogen 25 Creatinine 1.13 Random Glucose 113 Total Protein 6.1 Albumin 2.1 Calcium Level 7.9 Phosphorus Level 3.3 Magnesium Level 2.0 Alkaline Phosphatase 89 Aspartate Amino Transf (AST/SGOT) 35 Alanine Aminotransferase (ALT/SGPT) 11 Total Bilirubin 1.2 Sodium Level 134 Potassium Level 3.6 Chloride Level 101 Carbon Dioxide Level 25.7 Anion Gap 7 Estimat Glomerular Filtration Rate 55 Random Vancomycin Level 7.1 Date/Time Source Procedure Growth Status 08/31/17 20:15 Blood Peripheral Aerobic Blood Culture - Preliminary Gram Positive Cocci Resulted 08/31/17 20:15 Anaerobic Blood Culture - Preliminary Gram Positive Cocci Resulted 08/31/17 22:30 Urine Suprapubic Urine Urine Culture - Preliminary NO GROWTH IN 24 HOURS. Resulted Last 48 hours Impressions Renal Ultrasound 09/01/17 0000 Signed Impressions: Service Date/Time: Friday, September 01, 2017 10:53 - CONCLUSION: 1. No evidence of hydronephrosis. 2. Thickening of the urinary bladder wall a 1.1 cm. 3. Prominent splenomegaly. Baldemar Pineda MD Chest X-Ray 09/01/17 0000 Signed Impressions: Service Date/Time: Friday, September 01, 2017 09:36 - CONCLUSION: Right internal jugular central line in place with the tip overlying the SVC. A pneumothorax is not seen. Adalid Haney MD Chest X-Ray 09/01/17 Signed Impressions: Service Date/Time: Friday, September 01, 2017 03:56 - CONCLUSION: No acute cardiopulmonary disease demonstrated. Adalid Perry MD Breast Ultrasound 09/01/17 0000 Signed Impressions: Service Date/Time: Friday, September 01, 2017 10:48 - CONCLUSION: Negative targeted right breast ultrasound examination. Adalid Haney MD Chest X-Ray 08/31/171950 Signed Impressions: Service Date/Time: Thursday, August 31, 2017 20:00 - CONCLUSION: 1. No acute cardiopulmonary disease. Luis Leija MD Assessment and Plan Plan Likely L LE arterial emboli secondary to bacterial endocarditis; she is s/p valve replacement x 2 1. CTA with runoff 2. IV heparin gtt 3. Pain control 4. May need surgical embolectomy if motor status worsens Discussed with pt and at bedside. Will follow closely Jerald Holloway MD FACS RPVI fire sprinkler fitter [facility] - Heart and Vascular Surgery at [facility] [phone] Jerald Holloway MD Sep 02, 2017 09:46
[2017-09-02] MEDS: SODIUM BICARBONATE 8.4% INJ 75 MEQ in SODIUM CHLOR 0.45% 1000 ML INJ 1,000 ML IV SCH ×2 (09:47→18:00)
[2017-09-02 11:23] LABS: HEMATOCRIT 21.7 % (35.0-46.0); HEMOGLOBIN 7.1 GM/DL (11.6-15.3); MEAN CELL VOLUME 68.3 FL (80.0-100.0); MEAN CORPUSCULAR HEMOGLOBIN 22.3 PG (27.0-34.0); MEAN CORPUSCULAR HGB CONC 32.7 % (32.0-36.0); MEAN PLATELET VOLUME 10.1 FL (7.0-11.0); PLATELET COUNT 109 TH/MM3 (150-450); RED BLOOD COUNT 3.18 MIL/MM3 (4.00-5.30); RED CELL DISTRIBUTION WIDTH 16.6 % (11.6-17.2); WHITE BLOOD COUNT 12.6 TH/MM3 (4.0-11.0)
[2017-09-02 11:33] LABS: INTERNATIONAL NORMALIZED RATIO 1.2 RATIO; PROTHROMBIN TIME - PATIENT 12.4 SEC (9.8-11.6)
[2017-09-02] MEDS: HEPARIN-D5W 25,000 U/250 ML 250 ML IV PRN (11:38)
[2017-09-02] MEDS ORDERED: IOHEXOL 350 MG/ML 10 ML VIAL (for RAD DIAG) IVCONTRAST ONE (13:16)
--- NOTE | 2017-09-02 14:27 | RADRPT ---
EXAM DATE/TIME: 09/02/2017 12:47 [facility] COMPARISON: No previous studies available for comparison. INDICATIONS : Left lower extremity pain for five days. IV CONTRAST: 99 cc Omnipaque 350 (iohexol) IV RADIATION DOSE: 9.03 CTDIvol (mGy) MEDICAL HISTORY : Congestive heart failure. Hepatitis C. SURGICAL HISTORY : None. ENCOUNTER: Initial ACUITY: 4 - 6 days PAIN SCALE: 5/10 LOCATION: Left lower extremity TECHNIQUE: Volumetric scanning was performed using a multi-row detector CT scanner. The data was post processed with a variety of visualization algorithms including full volume maximum intensity projection, multi -planar sliding thin slab reformation, curved planar reformation, and surface rendering techniques. Using automated exposure control and adjustment of the mA and/or kV according to patient size, radiat ion dose was kept as low as reasonably achievable to obtain optimal diagnostic quality images. DICO M format image data is available electronically for review and comparison. FINDINGS: The abdominal aorta and iliacs are widely patent. The aortic visceral vessels are satisfactory in ruth earance. Specifically, the celiac, SMA, renal arteries and BHUMI are widely patent. The internal iliacs are patent bilaterally. The common femoral arteries are healthy in appearance and the profundas are patent bilaterally. In the left leg, there is a 5-6 cm long focal occlusion of the proximal SFA. The vessel reconstitutes and thereafter appears normal. The popliteal artery is intact. Satisfactory calf runoff is present, posterior tibial dominant on this left side. In the contralateral right leg, the superficial femoral artery, popliteal artery and tibial vessels a re intact. Dominant calf run off is via anterior tibial on this right side. Elsewhere on the exam, note is made of diminished cortical contrast enhancement involving a significa nt portion of the mid to upper pole anterior and lateral cortex of the left kidney. This is likely re lated to embolic event in the kidney. The spleen is heterogeneous and mildly enlarged. The liver is mildly enlarged. Small low density lesi on in the inferior aspect of the spleen and minimal perisplenic fluid. There is a small fat containin g supraumbilical hernia and a tiny fat containing umbilical hernia present. Intrauterine device is no bull. Nodular opacities are present in the lung bases bilaterally. CONCLUSION: Left renal cortical infarction. 5-6 cm length total occlusion of the left superficial femoral artery in the proximal thigh. Nodular parenchymal opacities in the lung bases bilaterally See above discussion. Adalid Dallas MD on September 02, 2017 at 14:14 Board Certified Radiologist. This report was verified electronically.
[2017-09-02] MEDS: NOREPINEPHRINE INJ 4 MG in SODIUM CHLOR 0.9% 250 ML INJ 246 ML IV PRN (14:44)
[2017-09-02] MEDS: VANCOMYCIN INJ 1,750 MG in SODIUM CHLORID 0.9% 500 ML INJ 500 ML IV SCH (15:09)
--- NOTE | 2017-09-02 18:07 | HHI.IDPN ---
Note Infectious Disease Note Patient feels the same. Still complains of severe pain in the left foot and left leg. Log grade fever. (+) SOB. 36-year-old white female who has a history of endocarditis and has been admitted several times for the same. The patient developed shortness of breath, fever and chills, and presented to the emergency department. The patient is noted to be actively using IV drugs. She has history of significant CHF from prior valvular heart disease related to endocarditis. She states that she started feeling short of breath about a week ago and the shortness of breath worsened. The patient has profuse cough currently. She has lacy purpuric changes at the distal left tibia and punctate purplish lesion at the plantar aspect of the left great toe. The left lower extremity is very tender on palpation. It is warm. Blood cultures were taken on admission and has gram-positive cocci in both sets. The patient was last treated for endocarditis in February 2017. She received IV antibiotics for Enterococcus faecalis and staph aureus. She also had staph aureus in the cerebrospinal fluid at that time. After she completed the IV antibiotics in April she was put on doxycycline prophylaxis. She reports that she has not been taking the doxycycline. PAST MEDICAL HISTORY: Hepatitis C. IV drug use. prosthetic aortic valve replacement in 2010 and then redo aortic valve replacement in December 2015 MEDICATIONS: 1. Vancomycin. 2. Ampicillin. 3. Rifampin. Current Medications Medications (Trade) Dose Ordered Sig/Jessica Route PRN Reason Start Time Stop Time Status Last Admin Dose Admin Sodium Chloride (NS Flush) 2 ml UNSCH PRN IV FLUSH FLUSH AFTER USING IV ACCESS 08/31/17 22:00 Sodium Chloride (NS Flush) 2 ml BID IV FLUSH 09/01/17 09:00 09/02/17 08:48 Acetaminophen (Tylenol) 650 mg Q6H PRN PO PAIN 1-5 AND/OR FEVER >101F 08/31/17 22:00 Famotidine (Pepcid Inj) 10 mg Q12HR IV PUSH 09/01/17 09:00 09/02/17 08:47 Lorazepam (Ativan Inj) 2 mg Q4H PRN IV PUSH Agitation/Sedation 08/31/17 22:00 Ondansetron HCl (Zofran Inj) 4 mg Q6H PRN IV PUSH NAUSEA OR VOMITING 08/31/17 22:00 Temazepam (Restoril) 15 mg HS PRN PO INSOMNIA 08/31/17 22:00 09/01/17 21:26 Albuterol/ Ipratropium (Duoneb Neb) 1 ampule Q2HR NEB PRN INH WHEEZING 08/31/17 22:00 Miscellaneous Information 1 Q361D XX 08/31/17 22:00 Chlorhexidine Gluconate (Chlorhexidine 2% Cloth) 3 pack Taper DAILY@04 TOP 09/01/17 04:00 08/28/18 03:59 09/02/17 04:00 Chlorhexidine Gluconate (Chlorhexidine 2% Cloth) 3 pack UNSCH PRN TOP HYGIENIC CARE 08/31/17 22:00 Senna/Docusate Sodium (Armida-Colace) 1 tab BID PO 09/01/17 09:00 Magnesium Hydroxide (Milk Of Magnesia Liq) 30 ml Q12H PRN PO Mild constipation 08/31/17 22:00 Sennosides (Senokot) 17.2 mg Q12H PRN PO Moderate constipation 08/31/17 22:00 Bisacodyl (Dulcolax Supp) 10 mg DAILY PRN RECTAL SEVERE CONSITIPATION 08/31/17 22:00 Lactulose (Lactulose Liq) 30 ml DAILY PRN PO SEVERE CONSITIPATION 08/31/17 22:00 Pharmacy Profile Note 0 ml @ 0 mls/hr UNSCH OTHER 08/31/17 22:15 Norepinephrine Bitartrate 4 mg/ Sodium Chloride 250 ml @ 7.5 mls/hr TITRATE PRN IV Blood pressure management 09/01/17 09:15 09/02/17 14:44 Terbutaline Sulfate (Brethine Inj) 1 mg UNSCH PRN SQ For Extravasation 09/01/17 09:15 Ceftriaxone Sodium 1000 mg/ Sodium Chloride 100 ml @ 200 mls/hr Q12H IV 09/01/17 12:00 09/02/17 11:33 Ampicillin Sodium 2000 mg/Sodium Chloride 100 ml @ 400 mls/hr Q6H IV 09/01/17 14:00 09/02/17 15:09 Rifampin (Rifampin) 300 mg Q12HR PO 09/01/17 21:00 09/02/17 08:48 Sodium Bicarbonate 75 meq/Sodium Chloride 1,075 ml @ 125 mls/hr Q8H36M IV 09/02/17 09:00 09/02/17 09:47 Heparin Sodium/ Dextrose 250 ml @ 10 mls/hr TITRATE PRN IV Coagulation Management 09/02/17 11:00 09/02/17 11:38 Vancomycin HCl 1750 mg/Sodium Chloride 517.5 ml @ 257.5 mls/ hr Q12H IV 09/02/17 13:00 09/02/17 15:09 Miscellaneous Information SPECIFIC LAB TO BE MELISSA... ONCE ONCE .XX 09/03/17 12:45 09/03/17 12:46 Hydromorphone HCl (Dilaudid Pf Inj) 2 mg Q4H PRN IV PUSH PAIN SCALE 6 TO 10 09/02/17 15:00 09/02/17 17:29 SOCIAL HISTORY: Positive occasional alcohol. No tobacco. IV drug use in the form of Dilaudid, oxycodone. The patient also uses marijuana. OBJECTIVE: Vital Signs Date Time Temp Pulse Resp B/P (MAP) Pulse Ox O2 Delivery O2 Flow Rate FiO2 09/02/17 14:44 102 101/58 09/02/17 14:00 98 09/02/17 13:00 95 09/02/17 12:00 99.9 95 32 114/67 (83) 95 09/02/17 12:00 95 09/02/17 11:00 98 09/02/17 10:00 97 09/02/17 09:00 99 09/02/17 08:00 97 09/02/17 08:00 100.2 97 30 99/58 (72) 94 09/02/17 07:00 100 09/02/17 06:00 98 09/02/17 05:48 97 114/55 09/02/17 04:00 99 09/02/17 04:00 100.4 99 26 92/58 (69) 93 09/02/17 03:00 101 09/02/17 02:03 20 09/02/17 02:00 103 09/02/17 02:00 103 90/57 09/02/17 00:00 110 09/02/17 00:00 100.2 110 31 104/68 (80) 96 09/01/17 22:00 103 09/01/17 20:22 94 Nasal Cannula 2.00 09/01/17 20:00 99.6 103 125/62 (83) 96 09/01/17 20:00 103 09/01/17 19:00 99 114/69 09/01/17 18:00 100 Laboratory Tests Test 09/02/17 06:44 09/02/17 10:40 White Blood Count 14.1 TH/MM3 12.6 TH/MM3 Red Blood Count 3.21 MIL/MM3 3.18 MIL/MM3 Hemoglobin 7.2 GM/DL 7.1 GM/DL Hematocrit 21.8 % 21.7 % Mean Corpuscular Volume 67.9 FL 68.3 FL Mean Corpuscular Hemoglobin 22.4 PG 22.3 PG Mean Corpuscular Hemoglobin Concent 33.0 % 32.7 % Red Cell Distribution Width 16.6 % 16.6 % Platelet Count 115 TH/MM3 109 TH/MM3 Mean Platelet Volume 10.0 FL 10.1 FL Neutrophils (%) (Auto) 80.1 % Lymphocytes (%) (Auto) 8.5 % Monocytes (%) (Auto) 10.7 % Eosinophils (%) (Auto) 0.4 % Basophils (%) (Auto) 0.3 % Neutrophils # (Auto) 11.3 TH/MM3 Lymphocytes # (Auto) 1.2 TH/MM3 Monocytes # (Auto) 1.5 TH/MM3 Eosinophils # (Auto) 0.1 TH/MM3 Basophils # (Auto) 0.0 TH/MM3 CBC Comment DIFF FINAL Differential Comment Blood Urea Nitrogen 25 MG/DL Creatinine 1.13 MG/DL Random Glucose 113 MG/DL Total Protein 6.1 GM/DL Albumin 2.1 GM/DL Calcium Level 7.9 MG/DL Phosphorus Level 3.3 MG/DL Magnesium Level 2.0 MG/DL Alkaline Phosphatase 89 U/L Aspartate Amino Transf (AST/SGOT) 35 U/L Alanine Aminotransferase (ALT/SGPT) 11 U/L Total Bilirubin 1.2 MG/DL Sodium Level 134 MEQ/L Potassium Level 3.6 MEQ/L Chloride Level 101 MEQ/L Carbon Dioxide Level 25.7 MEQ/L Anion Gap 7 MEQ/L Estimat Glomerular Filtration Rate 55 ML/MIN Random Vancomycin Level 7.1 COMMENT Prothrombin Time 12.4 SEC Prothromb Time International Ratio 1.2 RATIO Activated Partial Thromboplast Time 25.3 SEC IMAGING: Renal Ultrasound 09/01/17 0000 Signed Impressions: Service Date/Time: Friday, September 01, 2017 10:53 - CONCLUSION: 1. No evidence of hydronephrosis. 2. Thickening of the urinary bladder wall a 1.1 cm. 3. Prominent splenomegaly. Baldemar Pineda MD Chest X-Ray 09/01/17 0000 Signed Impressions: Service Date/Time: Friday, September 01, 2017 09:36 - CONCLUSION: Right internal jugular central line in place with the tip overlying the SVC. A pneumothorax is not seen. Adalid Haney MD Breast Ultrasound 09/01/17 0000 Signed Impressions: Service Date/Time: Friday, September 01, 2017 10:48 - CONCLUSION: Negative targeted right breast ultrasound examination. Adalid Haney MD Lower Extremity Ultrasound 08/31/17 0000 Signed Impressions: Service Date/Time: Thursday, August 31, 2017 21:22 - CONCLUSION: 1. No sonographic evidence for lower extremity DVT. 2. Incidental note of bilateral inguinal adenopathy with the largest on the right measuring 3.3 cm and the largest on the left measuring 2.6 cm. This finding is nonspecific but is typically reactive in etiology. Luis Leija MD PHYSICAL EXAMINATION GENERAL: No acute distress. HEENT: Head atraumatic. Extraocular movements grossly intact. Pupils reactive to light. No icterus. Oropharynx moist mucosa, no lesions. Neck: Supple without adenopathy. Lungs: Decreased breath sounds. Heart: 5/6 blowing systolic murmur at the upper right sternal border. Abdomen: Bowel sounds present, soft, obese, nontender. Extremities: Diffuse 2+ edema of the lower extremities. Left tibia distally has lacy purpuric discoloration of the skin and there is punctate purpuric lesion at the plantar aspect of the right great toe. Toes 3 and 5 are cyanotic. The leg is extremely tender on palpation. It is warm. No calf tenderness. No nail bed hemorrhages. The skin otherwise has no diffuse rash. Neuro: No gross focal findings. Psychiatric: calm and cooperative. IMPRESSION 1. Sepsis. Strep species. 2. Bacteremia. 3. History of prostatic aortic valve and so likely recurrent prosthetic valve endocarditis. 4. Leukocytosis secondary to sepsis. 5. Left lower extremity cellulitis/embolic lesions from showering of emboli from endocarditis. 6. Patient with profuse cough but negative chest x-ray. 7. Acute renal failure. Kidney function improving. RECOMMENDATIONS 1. Continue Ampicillin intravenous given her prior history of endocarditis due to Enterococcus. 2. Continue rifampin PO. 3. Continue Vancomycin. 4. Continue Ceftriaxone. 5. Monitor the blood cultures. 6. Monitor clinical status. The patient is very critically-ill and her outlook is very poor with repeated prostatic valve endocarditis. She indicated that she has had difficulty getting into rehab programs for drugs. This is a grave problem in this young lady who is not able to quit using IV drugs of her own free will. Edmar Sloan MD Sep 02, 2017 18:07
[2017-09-02] MEDS: ACETAMINOPHEN 325 MG TAB PO PRN (21:25)
[2017-09-03] VITALS (12 sets, daily range): BP systolic 89–111; BP diastolic 54–75; PULSE 80–109; RESP 23–30; TEMP 97.8–101.5; O2SAT 91–100
[2017-09-03 00:19] LABS: HEMATOCRIT 22.7 % (35.0-46.0); HEMOGLOBIN 7.4 GM/DL (11.6-15.3)
[2017-09-03] MEDS: VANCOMYCIN INJ 1,750 MG in SODIUM CHLORID 0.9% 500 ML INJ 500 ML IV SCH ×2 (01:11→13:55)
[2017-09-03] MEDS: HYDROmorphone HCL PF 2 MG/ML VIAL IV PUSH PRN ×6 (01:37→23:38)
[2017-09-03] MEDS: AMPICILLIN INJ 2,000 MG in SODIUM CHLORIDE 0.9% INJ 100 ML IV SCH ×4 (02:55→19:44)
[2017-09-03] MEDS: SODIUM BICARBONATE 8.4% INJ 75 MEQ in SODIUM CHLOR 0.45% 1000 ML INJ 1,000 ML IV SCH ×2 (02:55→10:35)
[2017-09-03] MEDS: CHLORHEXIDINE GLUCONATE 2 % 1 PACK (2 CLOTHS) TOP SCH (02:56)
[2017-09-03 04:19] LABS: BASOPHIL # 0.1 TH/MM3 (0-0.2); BASOPHIL % 0.5 % (0.0-2.0); EOSINOPHIL # 0.1 TH/MM3 (0-0.4); EOSINOPHIL % 0.9 % (0.0-4.0); HEMATOCRIT 22.2 % (35.0-46.0); HEMOGLOBIN 7.3 GM/DL (11.6-15.3); LYMPH % 12.2 % (9.0-44.0); LYMPHOCYTE # 1.7 TH/MM3 (1.0-4.8); MEAN CELL VOLUME 68.4 FL (80.0-100.0); MEAN CORPUSCULAR HEMOGLOBIN 22.5 PG (27.0-34.0); MEAN CORPUSCULAR HGB CONC 32.9 % (32.0-36.0); MEAN PLATELET VOLUME 9.5 FL (7.0-11.0); MONO % 9.2 % (0.0-8.0); MONOCYTE # 1.3 TH/MM3 (0-0.9); NEUT % 77.2 % (16.0-70.0); PLATELET COUNT 120 TH/MM3 (150-450); RED BLOOD COUNT 3.24 MIL/MM3 (4.00-5.30); RED CELL DISTRIBUTION WIDTH 16.5 % (11.6-17.2); WHITE BLOOD COUNT 14.2 TH/MM3 (4.0-11.0)
[2017-09-03 04:30] LABS: ALBUMIN 2.2 GM/DL (3.4-5.0); BICARBONATE 31.6 MEQ/L (21.0-32.0); BLOOD UREA NITROGEN 13 MG/DL (7-18); CALCIUM 8.3 MG/DL (8.5-10.1); CHLORIDE 102 MEQ/L (98-107); CREATININE 0.68 MG/DL (0.50-1.00); GLOMERULAR FILTRATION RATE 98 ML/MIN (>89); GLUCOSE,RANDOM 100 MG/DL (74-106); SODIUM (NA) 138 MEQ/L (136-145)
[2017-09-03 04:31] LABS: ALT (GPT) 7 U/L (10-53); AST (GOT) 21 U/L (15-37)
[2017-09-03 04:33] LABS: ALKALINE PHOSPHATASE 87 U/L (45-117); TOTAL BILIRUBIN ADULT 1.3 MG/DL (0.2-1.0); TOTAL PROTEIN 6.1 GM/DL (6.4-8.2)
--- NOTE | 2017-09-03 05:32 | RADRPT ---
EXAM DATE/TIME: 09/03/2017 03:30 [facility] COMPARISON: CHEST SINGLE AP, September 01, 2017, 9:36. INDICATIONS : Shortness of breath, possible pulmonary disease. MEDICAL HISTORY : Cardiovascular disease. Congestive heart failure. Hepatitis C. SURGICAL HISTORY : AVR ENCOUNTER: Subsequent ACUITY: 4 - 6 days PAIN SCORE: 0/10 LOCATION: Bilateral chest FINDINGS: Stable right IJ central line. Lungs are hypoaerated which accentuates interstitial markings. Minimal bibasilar airspace disease. Cardiomediastinal contours are within normal limits given portable techni que and degree of underinflation. Remainder of the exam is unchanged. CONCLUSION: 1. Low lung volumes with bibasilar mild airspace disease, likely atelectasis. Luis Leija MD on September 03, 2017 at 5:30 Board Certified Radiologist. This report was verified electronically.
--- NOTE | 2017-09-03 07:09 | PD.VS.PN ---
Subjective Subjective/Hospital Course Pt with persistently painful L foot, motor remains intact. Started hep gtt yesterday but not therapeutic yet. On IV antibiotics for recurrent bacterial endocarditis. CTA yesterday shows focal SFA occlusion but good distal opacification. Objective Vitals/I&O Date Time Temp Pulse Resp B/P (MAP) Pulse Ox O2 Delivery O2 Flow Rate FiO2 09/03/17 06:00 97 09/03/17 04:00 98.3 83 25 108/73 (85) 100 09/03/17 04:00 83 09/03/17 02:00 80 09/03/17 00:00 97.8 85 27 106/55 (72) 95 09/03/17 00:00 85 09/02/17 22:00 100 09/02/17 21:57 101.0 99 28 87/64 97 09/02/17 20:11 101.9 104 28 105/59 92 09/02/17 20:00 101.9 104 38 105/59 (74) 92 09/02/17 20:00 104 09/02/17 19:51 101.2 106 21 108/55 93 09/02/17 19:50 92 21 09/02/17 19:00 105 104/60 09/02/17 18:00 104 09/02/17 17:30 102 116/66 09/02/17 17:00 102 09/02/17 16:00 101 09/02/17 16:00 100.5 101 32 108/70 (83) 98 09/02/17 15:00 102 09/02/17 14:44 102 101/58 09/02/17 14:00 98 09/02/17 13:00 95 09/02/17 12:00 99.9 95 32 114/67 (83) 95 09/02/17 12:00 95 09/02/17 11:00 98 09/02/17 10:00 97 09/02/17 09:00 99 09/02/17 08:00 97 09/02/17 08:00 100.2 97 30 99/58 (72) 94 09/03/17 09/03/17 09/03/17 07:00 15:00 23:00 Intake Total 2658.5 ml Output Total 2300 ml Balance 358.5 ml Physical Exam L foot warm. Strong Doppler signals DP/PT, multiphasic Motor intact + swelling anterior calf cyanosis of skin Laboratory Laboratory Tests Test 09/02/17 10:40 09/02/17 19:00 09/02/17 23:45 09/03/17 03:50 White Blood Count 12.6 14.2 Red Blood Count 3.18 3.24 Hemoglobin 7.1 7.4 7.3 Hematocrit 21.7 22.7 22.2 Mean Corpuscular Volume 68.3 68.4 Mean Corpuscular Hemoglobin 22.3 22.5 Mean Corpuscular Hemoglobin Concent 32.7 32.9 Red Cell Distribution Width 16.6 16.5 Platelet Count 109 120 Mean Platelet Volume 10.1 9.5 Prothrombin Time 12.4 Prothromb Time International Ratio 1.2 Activated Partial Thromboplast Time 25.3 29.2 25.2 Neutrophils (%) (Auto) 77.2 Lymphocytes (%) (Auto) 12.2 Monocytes (%) (Auto) 9.2 Eosinophils (%) (Auto) 0.9 Basophils (%) (Auto) 0.5 Neutrophils # (Auto) 11.0 Lymphocytes # (Auto) 1.7 Monocytes # (Auto) 1.3 Eosinophils # (Auto) 0.1 Basophils # (Auto) 0.1 CBC Comment DIFF FINAL Differential Comment Blood Urea Nitrogen 13 Creatinine 0.68 Random Glucose 100 Total Protein 6.1 Albumin 2.2 Calcium Level 8.3 Alkaline Phosphatase 87 Aspartate Amino Transf (AST/SGOT) 21 Alanine Aminotransferase (ALT/SGPT) 7 Total Bilirubin 1.3 Sodium Level 138 Potassium Level 3.6 Chloride Level 102 Carbon Dioxide Level 31.6 Anion Gap 4 Estimat Glomerular Filtration Rate 98 Date/Time Source Procedure Growth Status 08/31/17 20:15 Blood Peripheral Aerobic Blood Culture - Preliminary Streptococcus Species Resulted 08/31/17 20:15 Anaerobic Blood Culture - Preliminary Gram Positive Cocci Resulted 09/02/17 21:00 Stool Stool Stool Occult Blood (DONNY) - Final HEMOCCULT NEGATIVE Complete 08/31/17 22:30 Urine Suprapubic Urine Urine Culture - Final NO GROWTH IN 48 HOURS. Complete Imaging Last 48 hours Impressions Aorta w/Runoff CTA 09/02/17 0000 Signed Impressions: Service Date/Time: Saturday, September 02, 2017 12:47 - CONCLUSION: Left renal cortical infarction. 5-6 cm length total occlusion of the left superficial femoral artery in the proximal thigh. Nodular parenchymal opacities in the lung bases bilaterally See above discussion. Adalid Dallas MD Assessment and Plan Plan Likely L LE arterial emboli secondary to bacterial endocarditis; she is s/p valve replacement x 2 1. IV heparin gtt - aggressively to therapeutic 2. Pain control 3. OOB and WBAT 4. Continue neurovascular checks Will follow closely Jerald Holloway MD FACS RPVI hay chopper [facility] - Heart and Vascular Surgery at [facility] [phone] Jerald Holloway MD Sep 03, 2017 07:09
[2017-09-03] MEDS: DOCUSATE SODIUM 50 MG/SENNA 8.6 MG TAB PO SCH ×2 (09:00→19:44)
[2017-09-03] MEDS: FAMOTIDINE 20 MG/2 ML VIAL IV PUSH SCH ×2 (09:07→19:44)
[2017-09-03] MEDS: SODIUM CHLORIDE 0.9% FLUSH 10 ML FLUSH IV FLUSH SCH ×2 (09:07→19:45)
[2017-09-03] MEDS: RIFAMPIN 150 MG CAP PO SCH (09:08)
[2017-09-03] MEDS: HEPARIN-D5W 25,000 U/250 ML 250 ML IV PRN (10:40)
[2017-09-03] MEDS: cefTRIAXone INJ 1,000 MG in SODIUM CHLORIDE 0.9% INJ 100 ML IV SCH (11:25)
[2017-09-03] MEDS ORDERED: SODIUM CHLOR 0.9% 1000 ML INJ 1,000 ML IV SCH (11:30)
[2017-09-03] MEDS ORDERED: HYDROmorphone HCL PF 2 MG/ML VIAL IV PUSH ONE (12:00)
--- NOTE | 2017-09-03 12:24 | HHI.CCPN ---
Subjective Remarks/Hospital Course 36-year-old female that presents to the ED for evaluation of shortness of breath and swelling. 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 Patient initially did not mention to anybody that she was doing drugs but she did tell me that she injected herself about 4 days ago. She uses Dilaudid. She states that she's been having fevers. Patient is somewhat somnolent and hard to assess she doesn't really provide much information. Family members at the bedside and he provides more information about the heart. Per patient she'll he takes 2 medications. Patient asked if she is taking any antibiotics and she said yes but when I ask her what kind is she is taking currently she states that she has not been on antibiotics for some time. Patient apparently does follow with a local bread panner but she cannot tell me the name of it. She states that she's been having swelling to her legs for the past month. She denies any recent travel or injury. No other medical issues at this time. No allergies to medication. SUBJ 09/01: remains critical on Dopamine 10 mcg/ min. Appears ill. Limited bedside echo did not show any large vegetation, but exam was limited, tricuspid and aortic valve not well visualized. Also states that had right breast abscess 2 months ago, drained by herself. Now may have abscess vs scar tissue. Injects upper arm and bilateral breasts. US of right breast ordered 09/02: Remains on 3 mcg/min of Levophed. Complaints of severe left lower extremity pain. Erythematous purpuric purple discoloration of the left lower anterior segment left dorsum of the foot with cyanotic nailbeds. Weak DP pulses+ . 2D Echo failed to reveal definite vegetation. Will consider RACHEL 09/03: Continues to be on Levophed 3 mcg/min, remains critical. We are left lower extremity pain but slightly better. Currently on heparin not therapeutic yet. CTA with runoff showed Left renal cortical infarction. 5-6 cm length total occlusion of the left superficial femoral artery in the proximal thigh but good distal opacification. Dr. Palacios recommended IV heparin no surgical intervention at this time. Patient is still at high risk for further embolic episodes. Blood cultures growing strep viridans. Also patient complains about epigastric and left-sided abdominal pain and left-sided chest pain which is more pleuritic. Pain is severe on deep inspiration Objective Vital Signs Date Time Temp Pulse Resp B/P (MAP) Pulse Ox O2 Delivery O2 Flow Rate FiO2 09/03/17 10:36 24 09/03/17 06:00 97 09/03/17 04:00 98.3 108/73 (85) 100 09/02/17 19:50 21 09/01/17 20:22 Nasal Cannula 2.00 Intake and Output 09/03/17 09/03/17 09/03/17 07:59 15:59 23:59 Intake Total 2658.5 ml Output Total 2300 ml Balance 358.5 ml Result Diagram: 09/03/17 0350 09/03/17 0350 Other Results Microbiology Date/Time Source Procedure Growth Status 08/31/17 20:15 Blood Peripheral Aerobic Blood Culture - Final Viridans Streptococcus Grp Complete 08/31/17 20:15 Anaerobic Blood Culture - Final Viridans Streptococcus Grp Complete 08/31/17 20:10 Blood Peripheral Aerobic Blood Culture - Final Viridans Streptococcus Grp Complete 08/31/17 20:10 Anaerobic Blood Culture - Final Viridans Streptococcus Grp Complete 09/02/17 21:00 Stool Stool Stool Occult Blood (DONNY) - Final HEMOCCULT NEGATIVE Complete 08/31/17 22:30 Urine Suprapubic Urine Urine Culture - Final NO GROWTH IN 48 HOURS. Complete Imaging Last 24 hours Impressions Chest X-Ray 08/31/171950 Signed Impressions: Service Date/Time: Thursday, August 31, 2017 20:00 - CONCLUSION: 1. No acute cardiopulmonary disease. Luis Leija MD Objective Remarks GENERAL: Well-developed young female in moderate distress due to pain, somehow lethargic. On 3 mcg/min of Levophed SKIN: Warm and dry. Patient does appear to have puncture wounds from where she states been injecting recently in her arms, bilateral upper breast. HEAD: Atraumatic. Normocephalic. EYES: Pupils equal and round. No scleral icterus. No injection or drainage. ENT: No nasal bleeding or discharge. Mucous membranes pink and moist. NECK: Trachea midline. No JVD. CHEST: Bilateral upper breast has puncture wounds from injection. Severe point tendreness left upper later chest and over lateral left ribs CARDIOVASCULAR: Systolic and diastolic murmurs best heard in the left sternal border. Limited bedside echo did not show any large vegetations, tricuspid and aortic valve not well visualized. Remains on Levophed at 3 mcg/min RESPIRATORY: Positive accessory muscle use. Bilateral coarse rhonchi and few crackles are. Breath sounds equal bilaterally. GASTROINTESTINAL: Abdomen soft, TTP epigastric and bilateral flanks. Hepatic and splenic margins palpable. MUSCULOSKELETAL: 2+ pitting edema to the lower extremities. Erythematous purpuric rash of the left lower extremity anterior campbell and foot, punctate lesion plantar right great toe. Left leg extremely tender below the left knee. Weak DP pulses bilaterally NEUROLOGICAL: Awake and alert. Motor grossly within normal limits. Five out of 5 muscle strength in the arms and legs. Normal speech. A/P Assessment and Plan Neuro: IVDU - Continue pain control with as needed Dilaudid. (patient has severpain from ischemic leg) - Ativan as needed for anxiety CVS/ID: Septi shock Infective endocarditis involving prosthetic valve Multiple septic emboli History of fungal and bacterial prosthetic valve endocarditis Strep viridans bacteremia 5-6 cm length total occlusion of the left superficial femoral artery in the proximal thigh - Recurrent prosthetic valve endocarditis. - Now with strep viridans in blood cultures - Broad-spectrum antibiotic with Vanc, ampicillin, rifampin and ceftriaxone. - Previously multiple episodes of , PVE due to MSSA, Ent fecalis in 04/2017, PVE October 2016 for tricuspid valve PVE - Diana parapsilosis , Streptococci - Previous bacterial meningitis / MSSA - embolic etiology - Vascular surgery Dr. Holloway following - Anticoagulation with Heparin - Infectious disease Dr. Sloan - IVF change to NS at 42 ml per hour - Levophed to keep map above 65, currently at 3 mcg/min - A RACHEL at this point will not change coordinator - Extensive counselling given about IP Rehab Resp: Respiratory insufficiency Hypoxia - Oxygen to keep oxygen saturation above 90% - DuoNeb every 6 hours as needed - CT chest to rule out septic emboli to the lung GI: Hepatitis C Splenic and renal infarct - Heart healthy diet - IV famotidine MSK: History of right breast abscess - Ultrasound of the left lower extremity negative for DVT - Right breast ultrasound negative for abscess : Acute on chronic kidney disease - Acute renal failure secondary to ATN and dehydration - IVF NS at 42 ml per hour - Renal ultrasound-thickening of urinary bladder Endo: - Electrolyte replacement as needed Heme: - Monitor CBC CMP and coags DVT GI prophylaxis - Teds SCDs - IV Heparin - Pepcid Critical Care: The total critical care time was 32 minutes. Time to perform other separately billable procedures was not included in the critical care time. D/W Dr. Holloway Remains critically ill still requiring vasopressors. There is evidence of multiple septic emboli including embolic occlusion of left SFA, splenic infarct renal infarct and possible septic emboli to the lung. Prognosis guarded especially with continued IV drug use. I counselled her extensively regarding inpatient rehab Jennifer Cordoba MD Sep 03, 2017 12:24
[2017-09-03] MEDS ORDERED: PHARMACY ORDERED LAB ONE (12:45)
--- NOTE | 2017-09-03 13:09 | RADRPT ---
EXAM DATE/TIME: 09/03/2017 12:41 [facility] COMPARISON: CTA RUNOFF W 3D RECON, September 02, 2017, 12:47. INDICATIONS : Evaluate for septic emboli RADIATION DOSE: 16.41 CTDIvol (mGy) MEDICAL HISTORY : Cardiovascular disease. Hepatitis C. SURGICAL HISTORY : None. ENCOUNTER: Initial ACUITY: 1 day PAIN SCALE: 0/10 LOCATION: chest TECHNIQUE: Volumetric scanning of the chest was performed. Using automated exposure control and adjustment of t he mA and/or kV according to patient size, radiation dose was kept as low as reasonably achievable to obtain optimal diagnostic quality images. DICOM format image data is available electronically for r eview and comparison. Follow-up recommendations for detected pulmonary nodules are based at a minimum on nodule size and pa tient risk factors according to Fleischner Society Guidelines. FINDINGS: LUNGS: There is respiratory motion artifact. At least 5 peripherally located pulmonary nodules are identifie d with the largest in the right lower lobe measuring 19 mm. These demonstrate no cavitation. There is mild atelectasis at the lung bases. No pneumothorax is present. PLEURAE: There is no pleural thickening or pleural effusion. MEDIASTINUM: Heart is enlarged and patient is post aortic valve replacement. There is a right IJ line present with distal tip in the right atrium. Superficial pericardial wires remain present anteriorly areas there is a single mildly enlarged AP window lymph node measuring 11 mm in short axis diameter. Low density of the cardiac blood pool suggests anemia. AXILLAE: Within normal limits. No lymphadenopathy. MUSCULOSKELETAL: There are mild degenerative changes of the thoracic spine. Patient is post median sternotomy. No acut e osseous abnormality is seen. MISCELLANEOUS: The spleen remains enlarged measuring approximately 15.8 cm. There are areas of low density in the mi d spleen. CONCLUSION: 1. There are at least 5 pulmonary nodules present bilaterally with the largest measuring 19 mm. None demonstrate cavitation but it is possible that these represent septic emboli. Suggest followup to ass ess for change. 2. Splenomegaly with subtle wedge-shaped areas of low-density in the mid spleen which could represent infarcts. 3. Mild cardiomegaly in this patient post aortic valve replacement. Low density of the cardiac blood pool suggests anemia. Adalid Galo MD on September 03, 2017 at 13:00 Board Certified Radiologist. This report was verified electronically.
[2017-09-03] MEDS: LOPERAMIDE HCL 2 MG CAP PO PRN ×2 (16:27→20:45)
--- NOTE | 2017-09-03 17:49 | HHI.IDPN ---
Note Infectious Disease Note Patient complains of severe pain in the left foot and left leg. Log grade fever. (+) SOB is the same. Awake and alert. No chest pain. Blood culture has strep viridans. 36-year-old white female who has a history of endocarditis and has been admitted several times for the same. The patient developed shortness of breath, fever and chills, and presented to the emergency department. The patient is noted to be actively using IV drugs. She has history of significant CHF from prior valvular heart disease related to endocarditis. She states that she started feeling short of breath about a week ago and the shortness of breath worsened. After she completed IV antibiotics in April she was put on doxycycline prophylaxis. She reports that she has not been taking the doxycycline. PAST MEDICAL HISTORY: Hepatitis C. IV drug use. prosthetic aortic valve replacement in 2010 and then redo aortic valve replacement in December 2015 MEDICATIONS: 1. Vancomycin. 2. Ampicillin. 3. Ceftriaxone. 4. Rifampin. Current Medications Medications (Trade) Dose Ordered Sig/Jessica Route PRN Reason Start Time Stop Time Status Last Admin Dose Admin Sodium Chloride (NS Flush) 2 ml UNSCH PRN IV FLUSH FLUSH AFTER USING IV ACCESS 08/31/17 22:00 Sodium Chloride (NS Flush) 2 ml BID IV FLUSH 09/01/17 09:00 09/03/17 09:07 Acetaminophen (Tylenol) 650 mg Q6H PRN PO PAIN 1-5 AND/OR FEVER >101F 08/31/17 22:00 09/02/17 21:25 Lorazepam (Ativan Inj) 2 mg Q4H PRN IV PUSH Agitation/Sedation 08/31/17 22:00 Ondansetron HCl (Zofran Inj) 4 mg Q6H PRN IV PUSH NAUSEA OR VOMITING 08/31/17 22:00 Temazepam (Restoril) 15 mg HS PRN PO INSOMNIA 08/31/17 22:00 09/01/17 21:26 Albuterol/ Ipratropium (Duoneb Neb) 1 ampule Q2HR NEB PRN INH WHEEZING 08/31/17 22:00 Miscellaneous Information 1 Q361D XX 08/31/17 22:00 Chlorhexidine Gluconate (Chlorhexidine 2% Cloth) 3 pack Taper DAILY@04 TOP 09/01/17 04:00 08/28/18 03:59 09/03/17 02:56 Chlorhexidine Gluconate (Chlorhexidine 2% Cloth) 3 pack UNSCH PRN TOP HYGIENIC CARE 08/31/17 22:00 Senna/Docusate Sodium (Armida-Colace) 1 tab BID PO 09/01/17 09:00 Magnesium Hydroxide (Milk Of Magnesia Liq) 30 ml Q12H PRN PO Mild constipation 08/31/17 22:00 Sennosides (Senokot) 17.2 mg Q12H PRN PO Moderate constipation 08/31/17 22:00 Bisacodyl (Dulcolax Supp) 10 mg DAILY PRN RECTAL SEVERE CONSITIPATION 08/31/17 22:00 Lactulose (Lactulose Liq) 30 ml DAILY PRN PO SEVERE CONSITIPATION 08/31/17 22:00 Pharmacy Profile Note 0 ml @ 0 mls/hr UNSCH OTHER 08/31/17 22:15 Norepinephrine Bitartrate 4 mg/ Sodium Chloride 250 ml @ 7.5 mls/hr TITRATE PRN IV Blood pressure management 09/01/17 09:15 09/02/17 14:44 Terbutaline Sulfate (Brethine Inj) 1 mg UNSCH PRN SQ For Extravasation 09/01/17 09:15 Ceftriaxone Sodium 1000 mg/ Sodium Chloride 100 ml @ 200 mls/hr Q12H IV 09/01/17 12:00 09/03/17 11:25 Ampicillin Sodium 2000 mg/Sodium Chloride 100 ml @ 400 mls/hr Q6H IV 09/01/17 14:00 09/03/17 13:54 Rifampin (Rifampin) 300 mg Q12HR PO 09/01/17 21:00 09/03/17 09:08 Heparin Sodium/ Dextrose 250 ml @ 10 mls/hr TITRATE PRN IV Coagulation Management 09/02/17 11:00 09/03/17 10:40 Vancomycin HCl 1750 mg/Sodium Chloride 517.5 ml @ 257.5 mls/ hr Q12H IV 09/02/17 13:00 09/03/17 13:55 Hydromorphone HCl (Dilaudid Pf Inj) 2 mg Q4H PRN IV PUSH PAIN SCALE 6 TO 10 09/02/17 15:00 09/03/17 15:46 Sodium Chloride 1,000 ml @ 42 mls/hr [id number] IV 09/03/17 11:30 09/03/17 13:55 Famotidine (Pepcid Inj) 20 mg Q12HR IV PUSH 09/03/17 21:00 Loperamide HCl (Imodium) 2 mg Q4H PRN PO Diarrhea 09/03/17 16:15 09/03/17 16:27 Miscellaneous Information SPECIFIC LAB TO BE MELISSA... ONCE ONCE .XX 09/05/17 00:45 09/05/17 00:46 SOCIAL HISTORY: Positive occasional alcohol. No tobacco. IV drug use in the form of Dilaudid, oxycodone. The patient also uses marijuana. OBJECTIVE: Vital Signs Date Time Temp Pulse Resp B/P (MAP) Pulse Ox O2 Delivery O2 Flow Rate FiO2 09/03/17 16:26 24 09/03/17 16:00 99 09/03/17 14:00 102 09/03/17 12:00 100.1 94 30 102/65 (77) 96 09/03/17 12:00 94 09/03/17 10:00 94 09/03/17 08:00 96 09/03/17 08:00 99.9 96 25 109/71 (84) 100 09/03/17 06:00 97 09/03/17 04:00 98.3 83 25 108/73 (85) 100 09/03/17 04:00 83 09/03/17 02:00 80 09/03/17 00:00 97.8 85 27 106/55 (72) 95 09/03/17 00:00 85 09/02/17 22:00 100 09/02/17 21:57 101.0 99 28 87/64 97 09/02/17 20:11 101.9 104 28 105/59 92 09/02/17 20:00 101.9 104 38 105/59 (74) 92 09/02/17 20:00 104 09/02/17 19:51 101.2 106 21 108/55 93 09/02/17 19:50 92 21 09/02/17 19:00 105 104/60 09/02/17 18:00 104 Laboratory Tests Test 09/02/17 06:44 09/02/17 10:40 09/02/17 23:45 09/03/17 03:50 White Blood Count 14.1 TH/MM3 12.6 TH/MM3 14.2 TH/MM3 Red Blood Count 3.21 MIL/MM3 3.18 MIL/MM3 3.24 MIL/MM3 Hemoglobin 7.2 GM/DL 7.1 GM/DL 7.4 GM/DL 7.3 GM/DL Hematocrit 21.8 % 21.7 % 22.7 % 22.2 % Mean Corpuscular Volume 67.9 FL 68.3 FL 68.4 FL Mean Corpuscular Hemoglobin 22.4 PG 22.3 PG 22.5 PG Mean Corpuscular Hemoglobin Concent 33.0 % 32.7 % 32.9 % Red Cell Distribution Width 16.6 % 16.6 % 16.5 % Platelet Count 115 TH/MM3 109 TH/MM3 120 TH/MM3 Mean Platelet Volume 10.0 FL 10.1 FL 9.5 FL Neutrophils (%) (Auto) 80.1 % 77.2 % Lymphocytes (%) (Auto) 8.5 % 12.2 % Monocytes (%) (Auto) 10.7 % 9.2 % Eosinophils (%) (Auto) 0.4 % 0.9 % Basophils (%) (Auto) 0.3 % 0.5 % Neutrophils # (Auto) 11.3 TH/MM3 11.0 TH/MM3 Lymphocytes # (Auto) 1.2 TH/MM3 1.7 TH/MM3 Monocytes # (Auto) 1.5 TH/MM3 1.3 TH/MM3 Eosinophils # (Auto) 0.1 TH/MM3 0.1 TH/MM3 Basophils # (Auto) 0.0 TH/MM3 0.1 TH/MM3 CBC Comment DIFF FINAL DIFF FINAL Differential Comment Laboratory Tests Test 09/02/17 06:44 09/03/17 03:50 Blood Urea Nitrogen 25 MG/DL 13 MG/DL Creatinine 1.13 MG/DL 0.68 MG/DL Random Glucose 113 MG/DL 100 MG/DL Total Protein 6.1 GM/DL 6.1 GM/DL Albumin 2.1 GM/DL 2.2 GM/DL Calcium Level 7.9 MG/DL 8.3 MG/DL Phosphorus Level 3.3 MG/DL Magnesium Level 2.0 MG/DL Alkaline Phosphatase 89 U/L 87 U/L Aspartate Amino Transf (AST/SGOT) 35 U/L 21 U/L Alanine Aminotransferase (ALT/SGPT) 11 U/L 7 U/L Total Bilirubin 1.2 MG/DL 1.3 MG/DL Sodium Level 134 MEQ/L 138 MEQ/L Potassium Level 3.6 MEQ/L 3.6 MEQ/L Chloride Level 101 MEQ/L 102 MEQ/L Carbon Dioxide Level 25.7 MEQ/L 31.6 MEQ/L Anion Gap 7 MEQ/L 4 MEQ/L Estimat Glomerular Filtration Rate 55 ML/MIN 98 ML/MIN Microbiology Date/Time Source Procedure Growth Status 08/31/17 20:15 Blood Peripheral Aerobic Blood Culture - Final Viridans Streptococcus Grp Complete 08/31/17 20:15 Anaerobic Blood Culture - Final Viridans Streptococcus Grp Complete 08/31/17 20:10 Blood Peripheral Aerobic Blood Culture - Final Viridans Streptococcus Grp Complete 08/31/17 20:10 Anaerobic Blood Culture - Final Viridans Streptococcus Grp Complete 09/02/17 21:00 Stool Stool Stool Occult Blood (DONNY) - Final HEMOCCULT NEGATIVE Complete 08/31/17 22:30 Urine Suprapubic Urine Urine Culture - Final NO GROWTH IN 48 HOURS. Complete IMAGING: Chest X-Ray 09/03/17 0600 Signed Impressions: Service Date/Time: Sunday, September 03, 2017 03:30 - CONCLUSION: 1. Low lung volumes with bibasilar mild airspace disease, likely atelectasis. Luis Leija MD Aorta w/Runoff CTA 09/02/17 0000 Signed Impressions: Service Date/Time: Saturday, September 02, 2017 12:47 - CONCLUSION: Left renal cortical infarction. 5-6 cm length total occlusion of the left superficial femoral artery in the proximal thigh. Nodular parenchymal opacities in the lung bases bilaterally See above discussion. Adalid Dallas MD Renal Ultrasound 09/01/17 0000 Signed Impressions: Service Date/Time: Friday, September 01, 2017 10:53 - CONCLUSION: 1. No evidence of hydronephrosis. 2. Thickening of the urinary bladder wall a 1.1 cm. 3. Prominent splenomegaly. Baldemar Pineda MD Chest X-Ray 09/01/17 0000 Signed Impressions: Service Date/Time: Friday, September 01, 2017 09:36 - CONCLUSION: Right internal jugular central line in place with the tip overlying the SVC. A pneumothorax is not seen. Adalid Haney MD Breast Ultrasound 2/24/18 0000 Signed Impressions: Service Date/Time: Friday, September 01, 2017 10:48 - CONCLUSION: Negative targeted right breast ultrasound examination. Adalid Haney MD Lower Extremity Ultrasound 08/31/17 0000 Signed Impressions: Service Date/Time: Thursday, August 31, 2017 21:22 - CONCLUSION: 1. No sonographic evidence for lower extremity DVT. 2. Incidental note of bilateral inguinal adenopathy with the largest on the right measuring 3.3 cm and the largest on the left measuring 2.6 cm. This finding is nonspecific but is typically reactive in etiology. Luis Leija MD PHYSICAL EXAMINATION GENERAL: No acute distress. HEENT: Head atraumatic. Extraocular movements grossly intact. Pupils reactive to light. No icterus. Oropharynx moist mucosa, no lesions. Neck: Supple without adenopathy. Lungs: Decreased breath sounds. Heart: 5/6 blowing systolic murmur at the upper right sternal border. Abdomen: Bowel sounds present, soft, obese, nontender. Extremities: Diffuse 2+ edema of the lower extremities. Left tibia distally has lacy purpuric discoloration of the skin and there is punctate purpuric lesion at the plantar aspect of the right great toe. Toes 3 and 5 are cyanotic. The leg is extremely tender on palpation. It is warm. No calf tenderness. No nail bed hemorrhages. The skin otherwise has no diffuse rash. Neuro: No gross focal findings. Psychiatric: calm and cooperative. IMPRESSION 1. Sepsis. Strep Viridans. 2. Bacteremia. 3. History of prosthetic aortic valve and so likely recurrent prosthetic valve endocarditis. Left renal cortical and pulmonary and LE septic emboli. 4. Leukocytosis secondary to sepsis from showering of emboli from endocarditis. 6. Acute renal failure. Kidney function improved. RECOMMENDATIONS 1. Continue Ampicillin intravenous. 2. Add Gentamycin. now that the kidney function is improved but follow the renal function. 3. Stop rifampin. 4. Stop Vancomycin. 5. Stop Ceftriaxone. I do not think we need to get RACHEL since it will not alter treatment. Monitor clinical status. Edmar Sloan MD Sep 03, 2017 17:49
[2017-09-03] MEDS: ACETAMINOPHEN 325 MG TAB PO PRN (17:58)
[2017-09-03] MEDS: GENTAMICIN INJ 100 MG in SODIUM CHLORIDE 0.9% INJ 100 ML IV SCH (19:44)
[2017-09-04] VITALS (14 sets, daily range): BP systolic 106–129; BP diastolic 63–83; PULSE 93–109; RESP 27–33; TEMP 98.6–99.5; O2SAT 87–99
[2017-09-04] MEDS: AMPICILLIN INJ 2,000 MG in SODIUM CHLORIDE 0.9% INJ 100 ML IV SCH ×4 (01:38→20:29)
[2017-09-04] MEDS: HYDROmorphone HCL PF 2 MG/ML VIAL IV PUSH PRN ×6 (03:46→23:47)
[2017-09-04] MEDS: CHLORHEXIDINE GLUCONATE 2 % 1 PACK (2 CLOTHS) TOP SCH (04:00)
[2017-09-04] MEDS: GENTAMICIN INJ 100 MG in SODIUM CHLORIDE 0.9% INJ 100 ML IV SCH ×3 (05:27→20:28)
[2017-09-04] MEDS: LOPERAMIDE HCL 2 MG CAP PO PRN (06:59)
[2017-09-04] MEDS: HEPARIN-D5W 25,000 U/250 ML 250 ML IV PRN (07:34)
[2017-09-04] MEDS: SODIUM CHLORIDE 0.9% FLUSH 10 ML FLUSH IV FLUSH SCH ×2 (07:35→20:29)
[2017-09-04] MEDS: FAMOTIDINE 20 MG/2 ML VIAL IV PUSH SCH (07:35)
[2017-09-04] MEDS: DOCUSATE SODIUM 50 MG/SENNA 8.6 MG TAB PO SCH ×2 (07:40→20:29)
[2017-09-04 08:45] LABS: ALBUMIN 2.2 GM/DL (3.4-5.0); ALKALINE PHOSPHATASE 91 U/L (45-117); ALT (GPT) 11 U/L (10-53); AST (GOT) 27 U/L (15-37); BICARBONATE 27.8 MEQ/L (21.0-32.0); BLOOD UREA NITROGEN 7 MG/DL (7-18); CALCIUM 7.8 MG/DL (8.5-10.1); CHLORIDE 101 MEQ/L (98-107); CREATININE 0.62 MG/DL (0.50-1.00); GLOMERULAR FILTRATION RATE 110 ML/MIN (>89); GLUCOSE,RANDOM 97 MG/DL (74-106); SODIUM (NA) 135 MEQ/L (136-145); TOTAL BILIRUBIN ADULT 0.6 MG/DL (0.2-1.0); TOTAL PROTEIN 6.3 GM/DL (6.4-8.2)
--- NOTE | 2017-09-04 10:41 | PD.VS.PN ---
Subjective Subjective/Hospital Course 36/F w/ focal SFA occlusion Pt c/o L foot pain (stable) LE warm w/ motor intact Biphasic L DP/PT heard via Doppler Objective Vitals/I&O Date Time Temp Pulse Resp B/P (MAP) Pulse Ox O2 Delivery O2 Flow Rate FiO2 09/04/17 08:00 96 09/04/17 08:00 99.0 96 27 122/64 (83) 96 09/04/17 06:00 109 09/04/17 05:17 19 09/04/17 04:00 99.1 109 33 118/83 (95) 87 09/04/17 04:00 109 09/04/17 02:00 104 09/04/17 00:00 93 09/04/17 00:00 99.5 93 29 114/65 (81) 88 09/03/17 22:00 97 09/03/17 21:00 19 09/03/17 20:00 98.9 97 23 89/54 (66) 91 09/03/17 20:00 97 09/03/17 18:00 109 09/03/17 16:00 101.5 99 26 111/75 (87) 92 09/03/17 16:00 99 09/03/17 14:00 102 09/03/17 12:00 100.1 94 30 102/65 (77) 96 09/03/17 12:00 94 09/04/17 09/04/17 09/04/17 07:00 15:00 23:00 Intake Total 650 ml Output Total 2550 ml Balance -1900 ml Physical Exam GENERAL: A&Ox3 SKIN: LE Warm and dry w/ motor intact L LE swelling present L LE (anterior aspect) with mottling + Biphasic L DP/PT heard via Doppler Laboratory Laboratory Tests Test 09/03/17 10:33 09/03/17 14:05 09/03/17 15:35 09/03/17 21:15 Activated Partial Thromboplast Time 29.8 29.2 29.7 Vancomycin Level Trough 12.9 Test 09/04/17 07:46 Activated Partial Thromboplast Time 29.7 Blood Urea Nitrogen 7 Creatinine 0.62 Random Glucose 97 Total Protein 6.3 Albumin 2.2 Calcium Level 7.8 Alkaline Phosphatase 91 Aspartate Amino Transf (AST/SGOT) 27 Alanine Aminotransferase (ALT/SGPT) 11 Total Bilirubin 0.6 Sodium Level 135 Potassium Level 3.8 Chloride Level 101 Carbon Dioxide Level 27.8 Anion Gap 6 Estimat Glomerular Filtration Rate 110 Date/Time Source Procedure Growth Status 09/04/17 04:25 Blood Peripheral Aerobic Blood Culture Pending Received 09/04/17 04:25 Blood Peripheral Anaerobic Blood Culture Pending Received 09/02/17 21:00 Stool Stool Stool Occult Blood (DONNY) - Final HEMOCCULT NEGATIVE Complete 08/31/17 22:30 Urine Suprapubic Urine Urine Culture - Final NO GROWTH IN 48 HOURS. Complete Imaging Last 48 hours Impressions Chest X-Ray 09/03/17 0600 Signed Impressions: Service Date/Time: Sunday, September 03, 2017 03:30 - CONCLUSION: 1. Low lung volumes with bibasilar mild airspace disease, likely atelectasis. Luis Leija MD Chest CT 09/03/17 0000 Signed Impressions: Service Date/Time: Sunday, September 03, 2017 12:41 - CONCLUSION: 1. There are at least 5 pulmonary nodules present bilaterally with the largest measuring 19 mm. None demonstrate cavitation but it is possible that these represent septic emboli. Suggest followup to assess for change. 2. Splenomegaly with subtle wedge-shaped areas of low-density in the mid spleen which could represent infarcts. 3. Mild cardiomegaly in this patient post aortic valve replacement. Low density of the cardiac blood pool suggests anemia. Adalid Galo MD Assessment and Plan Plan Likely L LE arterial emboli secondary to bacterial endocarditis; she is s/p valve replacement x 2 CTA- Pt w/ focal SFA occlusion but good distal opacification. LE warm w/ motor intact and strong distal pulses present Plan Continue anticoagulation- IV heparin gtt - aggressively to therapeutic Continue Pain control Continue neurovascular checks OOB and WBAT Minoo Mandujano NP [facility] [phone] Minoo Mandujano Sep 04, 2017 10:41
--- NOTE | 2017-09-04 11:37 | HHI.CCPN ---
Subjective Remarks/Hospital Course 36-year-old female that presents to the ED for evaluation of shortness of breath and swelling. 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 Patient initially did not mention to anybody that she was doing drugs but she did tell me that she injected herself about 4 days ago. She uses Dilaudid. She states that she's been having fevers. Patient is somewhat somnolent and hard to assess she doesn't really provide much information. Family members at the bedside and he provides more information about the heart. Per patient she'll he takes 2 medications. Patient asked if she is taking any antibiotics and she said yes but when I ask her what kind is she is taking currently she states that she has not been on antibiotics for some time. Patient apparently does follow with a local manager pipeline but she cannot tell me the name of it. She states that she's been having swelling to her legs for the past month. She denies any recent travel or injury. No other medical issues at this time. No allergies to medication. 09/01: remains critical on Dopamine 10 mcg/ min. Appears ill. Limited bedside echo did not show any large vegetation, but exam was limited, tricuspid and aortic valve not well visualized. Also states that had right breast abscess 2 months ago, drained by herself. Now may have abscess vs scar tissue. Injects upper arm and bilateral breasts. US of right breast ordered 09/02: Remains on 3 mcg/min of Levophed. Complaints of severe left lower extremity pain. Erythematous purpuric purple discoloration of the left lower anterior segment left dorsum of the foot with cyanotic nailbeds. Weak DP pulses+ . 2D Echo failed to reveal definite vegetation. Will consider RACHEL 09/03: Continues to be on Levophed 3 mcg/min, remains critical. We are left lower extremity pain but slightly better. Currently on heparin not therapeutic yet. CTA with runoff showed Left renal cortical infarction. 5-6 cm length total occlusion of the left superficial femoral artery in the proximal thigh but good distal opacification. Dr. Palacios recommended IV heparin no surgical intervention at this time. Patient is still at high risk for further embolic episodes. Blood cultures growing strep viridans. Also patient complains about epigastric and left-sided abdominal pain and left-sided chest pain which is more pleuritic. Pain is severe on deep inspiration Subjective 09/04: Resting in bed in no acute distress. Dopplerable lower extremity pulses noted. Remains on heparin drip. Vascular surgery continues to follow. Objective Vital Signs Date Time Temp Pulse Resp B/P (MAP) Pulse Ox O2 Delivery O2 Flow Rate FiO2 09/04/17 10:00 109 09/04/17 08:00 99.0 122/64 (83) 96 09/02/17 19:50 21 09/01/17 20:22 Nasal Cannula 2.00 Intake and Output 09/04/17 09/04/17 09/05/17 08:00 16:00 00:00 Intake Total 750 ml Output Total 2550 ml Balance -1800 ml Result Diagram: 09/03/17 0350 09/04/17 0746 Other Results Microbiology Date/Time Source Procedure Growth Status 09/04/17 04:25 Blood Peripheral Aerobic Blood Culture Pending Received 09/04/17 04:25 Blood Peripheral Anaerobic Blood Culture Pending Received 09/02/17 21:00 Stool Stool Stool Occult Blood (DONNY) - Final HEMOCCULT NEGATIVE Complete 08/31/17 22:30 Urine Suprapubic Urine Urine Culture - Final NO GROWTH IN 48 HOURS. Complete Imaging Last Impressions Chest X-Ray 09/03/17 0600 Signed Impressions: Service Date/Time: Sunday, September 03, 2017 03:30 - CONCLUSION: 1. Low lung volumes with bibasilar mild airspace disease, likely atelectasis. Luis Leija MD Chest CT 09/03/17 0000 Signed Impressions: Service Date/Time: Sunday, September 03, 2017 12:41 - CONCLUSION: 1. There are at least 5 pulmonary nodules present bilaterally with the largest measuring 19 mm. None demonstrate cavitation but it is possible that these represent septic emboli. Suggest followup to assess for change. 2. Splenomegaly with subtle wedge-shaped areas of low-density in the mid spleen which could represent infarcts. 3. Mild cardiomegaly in this patient post aortic valve replacement. Low density of the cardiac blood pool suggests anemia. Adalid Galo MD Aorta w/Runoff CTA 09/02/17 0000 Signed Impressions: Service Date/Time: Saturday, September 02, 2017 12:47 - CONCLUSION: Left renal cortical infarction. 5-6 cm length total occlusion of the left superficial femoral artery in the proximal thigh. Nodular parenchymal opacities in the lung bases bilaterally See above discussion. Adalid Dallas MD Renal Ultrasound 09/01/17 0000 Signed Impressions: Service Date/Time: Friday, September 01, 2017 10:53 - CONCLUSION: 1. No evidence of hydronephrosis. 2. Thickening of the urinary bladder wall a 1.1 cm. 3. Prominent splenomegaly. Baldemar Pineda MD Breast Ultrasound 09/01/17 0000 Signed Impressions: Service Date/Time: Friday, September 01, 2017 10:48 - CONCLUSION: Negative targeted right breast ultrasound examination. Adalid Haney MD Lower Extremity Ultrasound 08/31/17 Signed Impressions: Service Date/Time: Thursday, August 31, 2017 21:22 - CONCLUSION: 1. No sonographic evidence for lower extremity DVT. 2. Incidental note of bilateral inguinal adenopathy with the largest on the right measuring 3.3 cm and the largest on the left measuring 2.6 cm. This finding is nonspecific but is typically reactive in etiology. Luis Leija MD Objective Remarks GENERAL: 36-year-old female resting in bed in no acute distress SKIN: Warm and dry. Patient does appear to have puncture wounds from where she states been injecting recently in her arms, bilateral upper breast. HEAD: Atraumatic. Normocephalic. EYES: Pupils equal and round. No scleral icterus. No injection or drainage. ENT: No nasal bleeding or discharge. Mucous membranes pink and moist. NECK: Trachea midline. No JVD. CHEST: Bilateral upper breast has puncture wounds from injection. Pain to point palpation left upper thorax CARDIOVASCULAR: 2/6 pansystolic murmurat the left lower sternal border. RESPIRATORY: Few fine crackles present bilaterally. No wheezing GASTROINTESTINAL: Abdomen soft, tender to deep palpation. No guarding rigidity. Positive hepatosplenomegaly MUSCULOSKELETAL: 2+ pitting edema to the lower extremities. Erythematous purpuric rash of the left lower extremity anterior campbell and foot, punctate lesion plantar right great toe. Left leg extremely tender below the left knee. Dopplerable DP pulses bilaterally NEUROLOGICAL: Awake and alert. Motor grossly within normal limits. Five out of 5 muscle strength in the arms and legs. Normal speech. Urinary Catheter: No Assessment to: Continue Vascular Central Line Catheter: Yes Assessment to: Continue Date of Insertion: Sep 01, 2017 Line: Central Venous Catheter Side: Right Location: Internal, Jugular A/P Assessment and Plan Neuro/Psych: IVDU -hydromorphone History of THC use - Continue pain control hydrocodone/acetaminophen 10/325 1 tablet every 6 hours as needed pain 1 through 5 with hydromorphone 2 mg IV every 4 hours as needed pain 6-10 (patient has severpain from ischemic leg) - Acetaminophen 650 mg p.o. every 6 hours as needed fever CVS/ID Septic shock Infective endocarditis involving aortic prosthetic valve Multiple septic emboli including pulmonary, splenic and vascular History of fungal and bacterial prosthetic valve endocarditis Strep viridans bacteremia 5-6 cm length total occlusion of the left superficial femoral artery in the proximal thigh - Recurrent aortic prosthetic valve endocarditis -initially placed 2010 with redo 2015. - Now with strep viridans in blood cultures 08/31 - Broad-spectrum antibiotic with ampicillin and gentamicin. 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 Holloway following - Anticoagulation with Heparin gtt - Infectious disease Dr. Sloan Norepinephrine to maintain mean arterial pressures greater than equal to 65 - A RACHEL at this point will not bladder changer - Extensive counselling given about IP Rehab Microbiology 09/04 -blood cultures 2 -pending 08/31 -urine culture -no growth 08/31 -blood cultures 2 -strep viridian Resp: Acute respiratory insufficiency 5 pulmonary nodules likely septic emboli -Nasal cannula to keep oxygen saturation above 92% -Incentives spirometry while awake -As needed albuterol aerosols every 2 hours. Dyspnea - CT thorax revealed 5 bilateral pulmonary lesions/nodules largest which is 19 mm. No cavitation noted but likely septic emboli. GI: Hepatitis C Splenic infarction Hypoalbuminemia - Heart healthy diet -Famotidine for GI prophylaxis -Docusate sodium/senna 1 tablet twice daily for bowel regimen Renal/: Acute on chronic kidney disease Left renal cortical infarction - Acute renal failure secondary to ATN and dehydration - CT imaging revealed left renal cortical infarction - Renal ultrasound-thickening of urinary bladder -Recheck BMP today Endo: Sliding scale insulin if indicated to maintain euglycemia Heme: Anemia Leukocytosis - Monitor CBC CMP and coags -Does not meet transfusion threshold at this time FEN: Hyponatremia Replace electrolytes as clinically indicated MSK: History of right breast abscess - Ultrasound of the left lower extremity negative for DVT - Right breast ultrasound negative for abscess DVT GI prophylaxis - Heparin gtt - famotidine Level 2 follow-up Francis Dominguez MD Sep 04, 2017 11:37
[2017-09-04 13:26] LABS: AUTOMATED NEUTROPHIL # 10.8 TH/MM3 (1.8-7.7); BASOPHIL % 0.3 % (0.0-2.0); EOSINOPHIL # 0.2 TH/MM3 (0-0.4); EOSINOPHIL % 1.2 % (0.0-4.0); HEMATOCRIT 22.7 % (35.0-46.0); HEMOGLOBIN 7.4 GM/DL (11.6-15.3); LYMPH % 9.9 % (9.0-44.0); LYMPHOCYTE # 1.3 TH/MM3 (1.0-4.8); MEAN CELL VOLUME 68.9 FL (80.0-100.0); MEAN CORPUSCULAR HEMOGLOBIN 22.6 PG (27.0-34.0); MEAN CORPUSCULAR HGB CONC 32.8 % (32.0-36.0); MEAN PLATELET VOLUME 9.4 FL (7.0-11.0); MONO % 7.2 % (0.0-8.0); NEUT % 81.4 % (16.0-70.0); PLATELET COUNT 170 TH/MM3 (150-450); RED BLOOD COUNT 3.29 MIL/MM3 (4.00-5.30); RED CELL DISTRIBUTION WIDTH 17.1 % (11.6-17.2); WHITE BLOOD COUNT 13.3 TH/MM3 (4.0-11.0)
[2017-09-04] MEDS: ACETAMINOPHEN/HYDROcodone 325 MG/10 MG TAB PO PRN (16:40)
[2017-09-04] MEDS: FAMOTIDINE 20 MG TAB PO SCH (20:29)
[2017-09-05] VITALS (14 sets, daily range): BP systolic 94–126; BP diastolic 66–85; PULSE 95–109; RESP 23–34; TEMP 98.3–99.8; O2SAT 95–100
[2017-09-05] MEDS: CHLORHEXIDINE GLUCONATE 2 % 1 PACK (2 CLOTHS) TOP SCH (00:34)
[2017-09-05] MEDS ORDERED: PHARMACY ORDERED LAB ONE (00:45)
[2017-09-05] MEDS: HEPARIN-D5W 25,000 U/250 ML 250 ML IV PRN ×2 (02:16→17:55)
[2017-09-05] MEDS: HYDROmorphone HCL PF 2 MG/ML VIAL IV PUSH PRN ×5 (03:19→20:03)
[2017-09-05] MEDS: AMPICILLIN INJ 2,000 MG in SODIUM CHLORIDE 0.9% INJ 100 ML IV SCH ×4 (03:20→20:01)
[2017-09-05] MEDS: GENTAMICIN INJ 100 MG in SODIUM CHLORIDE 0.9% INJ 100 ML IV SCH ×3 (04:24→20:01)
[2017-09-05 05:33] LABS: AUTOMATED NEUTROPHIL # 10.1 TH/MM3 (1.8-7.7); BASOPHIL % 0.3 % (0.0-2.0); EOSINOPHIL # 0.2 TH/MM3 (0-0.4); EOSINOPHIL % 1.6 % (0.0-4.0); HEMATOCRIT 21.6 % (35.0-46.0); HEMOGLOBIN 7.1 GM/DL (11.6-15.3); LYMPH % 10.8 % (9.0-44.0); LYMPHOCYTE # 1.4 TH/MM3 (1.0-4.8); MEAN CELL VOLUME 69.2 FL (80.0-100.0); MEAN CORPUSCULAR HEMOGLOBIN 22.8 PG (27.0-34.0); MEAN CORPUSCULAR HGB CONC 32.9 % (32.0-36.0); MONO % 6.9 % (0.0-8.0); MONOCYTE # 0.9 TH/MM3 (0-0.9); NEUT % 80.4 % (16.0-70.0); PLATELET COUNT 189 TH/MM3 (150-450); RED BLOOD COUNT 3.12 MIL/MM3 (4.00-5.30); RED CELL DISTRIBUTION WIDTH 16.9 % (11.6-17.2); WHITE BLOOD COUNT 12.5 TH/MM3 (4.0-11.0)
[2017-09-05 05:57] LABS: ALBUMIN 2.2 GM/DL (3.4-5.0); AST (GOT) 27 U/L (15-37); BICARBONATE 29.1 MEQ/L (21.0-32.0); BLOOD UREA NITROGEN 7 MG/DL (7-18); CALCIUM 8.1 MG/DL (8.5-10.1); CHLORIDE 100 MEQ/L (98-107); CREATININE 0.59 MG/DL (0.50-1.00); GLOMERULAR FILTRATION RATE 116 ML/MIN (>89); GLUCOSE,RANDOM 100 MG/DL (74-106); MAGNESIUM 1.5 MG/DL (1.5-2.5); SODIUM (NA) 136 MEQ/L (136-145)
[2017-09-05 05:58] LABS: ALT (GPT) 12 U/L (10-53); PHOSPHORUS 3.4 MG/DL (2.5-4.9)
[2017-09-05 06:00] LABS: ALKALINE PHOSPHATASE 92 U/L (45-117); TOTAL BILIRUBIN ADULT 0.5 MG/DL (0.2-1.0); TOTAL PROTEIN 6.3 GM/DL (6.4-8.2)
[2017-09-05] MEDS: DOCUSATE SODIUM 50 MG/SENNA 8.6 MG TAB PO SCH ×2 (09:00→20:02)
--- NOTE | 2017-09-05 09:08 | PD.VS.PN ---
Subjective Subjective/Hospital Course Foot continues to improve Less sensitive Motor remains in tact Objective Vitals/I&O Date Time Temp Pulse Resp B/P (MAP) Pulse Ox O2 Delivery O2 Flow Rate FiO2 09/05/17 08:19 95 Nasal Cannula 2.00 09/05/17 06:00 100 09/05/17 04:00 99 09/05/17 04:00 99.8 99 28 126/74 (91) 98 09/05/17 02:00 109 09/05/17 00:00 102 09/05/17 00:00 98.9 102 32 112/69 (83) 95 09/04/17 22:00 102 09/04/17 20:19 99 Nasal Cannula 2.00 09/04/17 20:00 103 09/04/17 20:00 99.5 103 31 106/80 (89) 98 09/04/17 18:46 99 Nasal Cannula 2.00 09/04/17 18:38 28 09/04/17 18:00 105 09/04/17 16:00 99.0 100 30 113/63 (80) 93 09/04/17 16:00 100 09/04/17 14:00 97 09/04/17 12:00 107 09/04/17 12:00 98.6 107 32 129/75 (93) 97 09/04/17 10:00 109 09/05/17 09/05/17 09/05/17 07:00 15:00 23:00 Intake Total 682.5 ml Balance 682.5 ml Physical Exam L foot motor intact strong pedal signals foot warm Laboratory Laboratory Tests Test 09/04/17 12:27 09/04/17 15:06 09/04/17 20:45 09/05/17 03:38 White Blood Count 13.3 12.5 Red Blood Count 3.29 3.12 Hemoglobin 7.4 7.1 Hematocrit 22.7 21.6 Mean Corpuscular Volume 68.9 69.2 Mean Corpuscular Hemoglobin 22.6 22.8 Mean Corpuscular Hemoglobin Concent 32.8 32.9 Red Cell Distribution Width 17.1 16.9 Platelet Count 170 189 Mean Platelet Volume 9.4 9.0 Neutrophils (%) (Auto) 81.4 80.4 Lymphocytes (%) (Auto) 9.9 10.8 Monocytes (%) (Auto) 7.2 6.9 Eosinophils (%) (Auto) 1.2 1.6 Basophils (%) (Auto) 0.3 0.3 Neutrophils # (Auto) 10.8 10.1 Lymphocytes # (Auto) 1.3 1.4 Monocytes # (Auto) 1.0 0.9 Eosinophils # (Auto) 0.2 0.2 Basophils # (Auto) 0.0 0.0 CBC Comment DIFF FINAL DIFF FINAL Differential Comment Activated Partial Thromboplast Time 29.7 30.3 33.4 Blood Urea Nitrogen 7 Creatinine 0.59 Random Glucose 100 Total Protein 6.3 Albumin 2.2 Calcium Level 8.1 Phosphorus Level 3.4 Magnesium Level 1.5 Alkaline Phosphatase 92 Aspartate Amino Transf (AST/SGOT) 27 Alanine Aminotransferase (ALT/SGPT) 12 Total Bilirubin 0.5 Sodium Level 136 Potassium Level 4.0 Chloride Level 100 Carbon Dioxide Level 29.1 Anion Gap 7 Estimat Glomerular Filtration Rate 116 Date/Time Source Procedure Growth Status 09/04/17 04:25 Blood Peripheral Aerobic Blood Culture Pending Received 09/04/17 04:25 Blood Peripheral Anaerobic Blood Culture Pending Received 09/02/17 21:00 Stool Stool Stool Occult Blood (DONNY) - Final HEMOCCULT NEGATIVE Complete 08/31/17 22:30 Urine Suprapubic Urine Urine Culture - Final NO GROWTH IN 48 HOURS. Complete Assessment and Plan Plan continue hep gtt neurovascular checks unlikely to need vascular intervention would anticipate home anticoagulation Jerald Holloway MD Sep 05, 2017 09:08
[2017-09-05] MEDS: FAMOTIDINE 20 MG TAB PO SCH ×2 (09:28→20:02)
[2017-09-05] MEDS: SODIUM CHLORIDE 0.9% FLUSH 10 ML FLUSH IV FLUSH SCH ×2 (09:28→20:02)
--- NOTE | 2017-09-05 14:26 | HHI.CCPN ---
Subjective Remarks/Hospital Course 36-year-old female that presents to the ED for evaluation of shortness of breath and swelling. 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 Patient initially did not mention to anybody that she was doing drugs but she did tell me that she injected herself about 4 days ago. She uses Dilaudid. She states that she's been having fevers. Patient is somewhat somnolent and hard to assess she doesn't really provide much information. Family members at the bedside and he provides more information about the heart. Per patient she'll he takes 2 medications. Patient asked if she is taking any antibiotics and she said yes but when I ask her what kind is she is taking currently she states that she has not been on antibiotics for some time. Patient apparently does follow with a local scoop operator but she cannot tell me the name of it. She states that she's been having swelling to her legs for the past month. She denies any recent travel or injury. No other medical issues at this time. No allergies to medication. 09/01: remains critical on Dopamine 10 mcg/ min. Appears ill. Limited bedside echo did not show any large vegetation, but exam was limited, tricuspid and aortic valve not well visualized. Also states that had right breast abscess 2 months ago, drained by herself. Now may have abscess vs scar tissue. Injects upper arm and bilateral breasts. US of right breast ordered 09/02: Remains on 3 mcg/min of Levophed. Complaints of severe left lower extremity pain. Erythematous purpuric purple discoloration of the left lower anterior segment left dorsum of the foot with cyanotic nailbeds. Weak DP pulses+ . 2D Echo failed to reveal definite vegetation. Will consider RACHEL 09/03: Continues to be on Levophed 3 mcg/min, remains critical. We are left lower extremity pain but slightly better. Currently on heparin not therapeutic yet. CTA with runoff showed Left renal cortical infarction. 5-6 cm length total occlusion of the left superficial femoral artery in the proximal thigh but good distal opacification. Dr. Palacios recommended IV heparin no surgical intervention at this time. Patient is still at high risk for further embolic episodes. Blood cultures growing strep viridans. Also patient complains about epigastric and left-sided abdominal pain and left-sided chest pain which is more pleuritic. Pain is severe on deep inspiration 09/04: Resting in bed in no acute distress. Dopplerable lower extremity pulses noted. Remains on heparin drip. Vascular surgery continues to follow. Subjective 09/05: Resting in bed in mild respiratory distress. Continues to cough. Nonproductive. Left lower extremity leg improved. Reviewed vascular surgeries note. Likely will require long-term medical regulation post hospitalization Objective Vital Signs Date Time Temp Pulse Resp B/P (MAP) Pulse Ox O2 Delivery O2 Flow Rate FiO2 09/05/17 08:19 95 Nasal Cannula 2.00 09/05/17 06:00 100 09/05/17 04:00 99.8 28 126/74 (91) 09/02/17 19:50 21 Intake and Output 09/05/17 09/05/17 09/05/17 07:59 15:59 23:59 Intake Total 682.5 ml Balance 682.5 ml Result Diagram: 09/05/17 0338 09/05/17 0338 Other Results Microbiology Date/Time Source Procedure Growth Status 09/04/17 04:25 Blood Peripheral Aerobic Blood Culture - Preliminary NO GROWTH IN 1 DAY Resulted 09/04/17 04:25 Blood Peripheral Anaerobic Blood Culture - Preliminary NO GROWTH IN 1 DAY Resulted 09/02/17 21:00 Stool Stool Stool Occult Blood (DONNY) - Final HEMOCCULT NEGATIVE Complete 08/31/17 22:30 Urine Suprapubic Urine Urine Culture - Final NO GROWTH IN 48 HOURS. Complete Imaging Last Impressions Chest X-Ray 09/03/17 0600 Signed Impressions: Service Date/Time: Sunday, September 03, 2017 03:30 - CONCLUSION: 1. Low lung volumes with bibasilar mild airspace disease, likely atelectasis. Luis Leija MD Chest CT 09/03/17 0000 Signed Impressions: Service Date/Time: Sunday, September 03, 2017 12:41 - CONCLUSION: 1. There are at least 5 pulmonary nodules present bilaterally with the largest measuring 19 mm. None demonstrate cavitation but it is possible that these represent septic emboli. Suggest followup to assess for change. 2. Splenomegaly with subtle wedge-shaped areas of low-density in the mid spleen which could represent infarcts. 3. Mild cardiomegaly in this patient post aortic valve replacement. Low density of the cardiac blood pool suggests anemia. Adalid Galo MD Aorta w/Runoff CTA 09/02/17 Signed Impressions: Service Date/Time: Saturday, September 02, 2017 12:47 - CONCLUSION: Left renal cortical infarction. 5-6 cm length total occlusion of the left superficial femoral artery in the proximal thigh. Nodular parenchymal opacities in the lung bases bilaterally See above discussion. Adalid Dallas MD Renal Ultrasound 09/01/17 Signed Impressions: Service Date/Time: Friday, September 01, 2017 10:53 - CONCLUSION: 1. No evidence of hydronephrosis. 2. Thickening of the urinary bladder wall a 1.1 cm. 3. Prominent splenomegaly. Baldemar Pineda MD Breast Ultrasound 09/01/17 0000 Signed Impressions: Service Date/Time: Friday, September 01, 2017 10:48 - CONCLUSION: Negative targeted right breast ultrasound examination. Adalid Haney MD Lower Extremity Ultrasound 08/31/17 Signed Impressions: Service Date/Time: Thursday, August 31, 2017 21:22 - CONCLUSION: 1. No sonographic evidence for lower extremity DVT. 2. Incidental note of bilateral inguinal adenopathy with the largest on the right measuring 3.3 cm and the largest on the left measuring 2.6 cm. This finding is nonspecific but is typically reactive in etiology. Luis Leija MD Objective Remarks GENERAL: 36-year-old female resting in bed in no acute distress SKIN: Warm and dry. Patient does appear to have puncture wounds from where she states been injecting recently in her arms, bilateral upper breast. HEAD: Atraumatic. Normocephalic. EYES: Pupils equal and round. No scleral icterus. No injection or drainage. ENT: No nasal bleeding or discharge. Mucous membranes pink and moist. NECK: Trachea midline. No JVD. CHEST: Bilateral upper breast has puncture wounds from injection. Pain to point palpation left upper thorax CARDIOVASCULAR: 2/6 pansystolic murmurat the left lower sternal border. RESPIRATORY: Few fine crackles present bilaterally. No wheezing GASTROINTESTINAL: Abdomen soft, tender to deep palpation. No guarding rigidity. Positive hepatosplenomegaly MUSCULOSKELETAL: 2+ pitting edema to the lower extremities. Erythematous purpuric rash of the left lower extremity anterior campbell and foot, punctate lesion plantar right great toe. Left leg extremely tender below the left knee. Dopplerable DP pulses bilaterally NEUROLOGICAL: Awake and alert. Motor grossly within normal limits. Five out of 5 muscle strength in the arms and legs. Normal speech. Date of Insertion: Sep 01, 2017 Line: Central Venous Catheter Side: Right Location: Internal, Jugular A/P Assessment and Plan Neuro/Psych: IVDU -hydromorphone History of THC use - Continue pain control hydrocodone/acetaminophen 10/325 1 tablet every 6 hours as needed pain 1 through 5 with hydromorphone 2 mg IV every 4 hours as needed pain 6-10 (patient has severpain from ischemic leg) - Acetaminophen 650 mg p.o. every 6 hours as needed fever CVS/ID Septic shock Infective endocarditis involving aortic prosthetic valve Multiple septic emboli including pulmonary, splenic and vascular History of fungal and bacterial prosthetic valve endocarditis Strep viridans bacteremia 5-6 cm length total occlusion of the left superficial femoral artery in the proximal thigh - Recurrent aortic prosthetic valve endocarditis -initially placed 2010 with redo 2015. - Now with strep viridans in blood cultures 08/31 - Broad-spectrum antibiotic with ampicillin and gentamicin. 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 Holloway following - Anticoagulation with Heparin gtt - Infectious disease Dr. Sloan Norepinephrine to maintain mean arterial pressures greater than equal to 65 - A RACHEL at this point will not change management manager - Extensive counselling given about IP Rehab Microbiology 09/04 -blood cultures 2 -pending 08/31 -urine culture -no growth 08/31 -blood cultures 2 -strep viridian Resp: Acute respiratory insufficiency 5 pulmonary nodules likely septic emboli -Nasal cannula to keep oxygen saturation above 92% -Incentives spirometry while awake -As needed albuterol aerosols every 2 hours. Dyspnea - CT thorax revealed 5 bilateral pulmonary lesions/nodules largest which is 19 mm. No cavitation noted but likely septic emboli. GI: Hepatitis C Splenic infarction Hypoalbuminemia - Heart healthy diet -Famotidine for GI prophylaxis -Docusate sodium/senna 1 tablet twice daily for bowel regimen Renal/: Acute on chronic kidney disease Left renal cortical infarction - Acute renal failure secondary to ATN and dehydration - CT imaging revealed left renal cortical infarction - Renal ultrasound-thickening of urinary bladder -Recheck BMP today Endo: Sliding scale insulin if indicated to maintain euglycemia Heme: Anemia Leukocytosis - Monitor CBC CMP and coags -Does not meet transfusion threshold at this time FEN: Hypomagnesia Replace electrolytes as clinically indicated MSK: History of right breast abscess Elevated BMI - Ultrasound of the left lower extremity negative for DVT - Right breast ultrasound negative for abscess -Weight loss encouraged DVT GI prophylaxis - Heparin gtt - famotidine Level 2 follow-up Francis Dominguez MD Sep 05, 2017 14:26
[2017-09-05] MEDS ORDERED: MAGNESIUM OXIDE 400 MG TAB PO ONE (14:30)
[2017-09-05] MEDS: ACETAMINOPHEN/HYDROcodone 325 MG/10 MG TAB PO PRN (14:32)
[2017-09-05] MEDS: LOPERAMIDE HCL 2 MG CAP PO PRN (14:32)
--- NOTE | 2017-09-05 14:57 | HHI.IDPN ---
Note Infectious Disease Note Patient having coughing spell. Low grade fever. Temperature is better. Still gets shortness of breath with exertion. Continues to have pain in the left leg and left foot. Awake and alert. No chest pain. Blood culture has strep viridans. 36-year-old white female who has a history of endocarditis and has been admitted several times for the same. The patient developed shortness of breath, fever and chills, and presented to the emergency department. The patient is noted to be actively using IV drugs. She has history of significant CHF from prior valvular heart disease related to endocarditis. She states that she started feeling short of breath about a week ago and the shortness of breath worsened. After she completed IV antibiotics in April she was put on doxycycline prophylaxis. She reports that she has not been taking the doxycycline. PAST MEDICAL HISTORY: Hepatitis C. IV drug use. prosthetic aortic valve replacement in 2010 and then redo aortic valve replacement in December 2015 MEDICATIONS: 1. Gentamicin. 2. Ampicillin. Current Medications Medications (Trade) Dose Ordered Sig/Jessica Route PRN Reason Start Time Stop Time Status Last Admin Dose Admin Sodium Chloride (NS Flush) 2 ml UNSCH PRN IV FLUSH FLUSH AFTER USING IV ACCESS 08/31/17 22:00 Sodium Chloride (NS Flush) 2 ml BID IV FLUSH 09/01/17 09:00 09/05/17 09:28 Acetaminophen (Tylenol) 650 mg Q6H PRN PO fever 08/31/17 22:00 09/03/17 17:58 Ondansetron HCl (Zofran Inj) 4 mg Q6H PRN IV PUSH NAUSEA OR VOMITING 08/31/17 22:00 Temazepam (Restoril) 15 mg HS PRN PO INSOMNIA 08/31/17 22:00 09/01/17 21:26 Miscellaneous Information 1 [id number] XX 08/31/17 22:00 Chlorhexidine Gluconate (Chlorhexidine 2% Cloth) 3 pack Taper DAILY@04 TOP 09/01/17 04:00 08/28/18 03:59 09/05/17 00:34 Chlorhexidine Gluconate (Chlorhexidine 2% Cloth) 3 pack UNSCH PRN TOP HYGIENIC CARE 08/31/17 22:00 Senna/Docusate Sodium (Armida-Colace) 1 tab BID PO 09/01/17 09:00 Magnesium Hydroxide (Milk Of Magnesia Liq) 30 ml Q12H PRN PO Mild constipation 08/31/17 22:00 Sennosides (Senokot) 17.2 mg Q12H PRN PO Moderate constipation 08/31/17 22:00 Bisacodyl (Dulcolax Supp) 10 mg DAILY PRN RECTAL SEVERE CONSITIPATION 08/31/17 22:00 Lactulose (Lactulose Liq) 30 ml DAILY PRN PO SEVERE CONSITIPATION 08/31/17 22:00 Norepinephrine Bitartrate 4 mg/ Sodium Chloride 250 ml @ 7.5 mls/hr TITRATE PRN IV Blood pressure management 09/01/17 09:15 09/02/17 14:44 Terbutaline Sulfate (Brethine Inj) 1 mg UNSCH PRN SQ For Extravasation 09/01/17 09:15 Ampicillin Sodium 2000 mg/Sodium Chloride 100 ml @ 400 mls/hr Q6H IV 09/01/17 14:00 09/05/17 14:33 Heparin Sodium/ Dextrose 250 ml @ 10 mls/hr TITRATE PRN IV Coagulation Management 09/02/17 11:00 09/05/17 02:16 Hydromorphone HCl (Dilaudid Pf Inj) 2 mg Q4H PRN IV PUSH PAIN SCALE 6 TO 10 09/02/17 15:00 09/05/17 11:31 Loperamide HCl (Imodium) 2 mg Q4H PRN PO Diarrhea 09/03/17 16:15 09/05/17 14:32 Gentamicin Sulfate 100 mg/ Sodium Chloride 102.5 ml @ 100 mls/hr Q8H IV 09/03/17 21:00 09/05/17 14:33 Albuterol Sulfate (Albuterol Neb) 2.5 mg Q2HR NEB PRN NEB dyspnea 09/04/17 11:30 Acetaminophen/ Hydrocodone Bitart ([place] 10-325 Mg) 1 tab Q6H PRN PO pain 1-5 09/04/17 11:30 09/05/17 14:32 Famotidine (Pepcid) 20 mg BID PO 09/04/17 21:00 09/05/17 09:28 Magnesium Sulfate/ Dextrose 100 ml @ 100 mls/hr Q1H IV 09/05/17 15:00 09/05/17 16:59 Magnesium Oxide (Mag-Ox) 400 mg Q12HR PO 09/05/17 21:00 09/07/17 20:59 SOCIAL HISTORY: Positive occasional alcohol. No tobacco. IV drug use in the form of Dilaudid, oxycodone. The patient also uses marijuana. OBJECTIVE: Vital Signs Date Time Temp Pulse Resp B/P (MAP) Pulse Ox O2 Delivery O2 Flow Rate FiO2 09/05/17 08:19 95 Nasal Cannula 2.00 09/05/17 06:00 100 09/05/17 04:00 99 09/05/17 04:00 99.8 99 28 126/74 (91) 98 09/05/17 02:00 109 09/05/17 00:00 102 09/05/17 00:00 98.9 102 32 112/69 (83) 95 09/04/17 22:00 102 09/04/17 20:19 99 Nasal Cannula 2.00 09/04/17 20:00 103 09/04/17 20:00 99.5 103 31 106/80 (89) 98 09/04/17 18:46 99 Nasal Cannula 2.00 09/04/17 18:38 28 09/04/17 18:00 105 09/04/17 16:00 99.0 100 30 113/63 (80) 93 09/04/17 16:00 100 Laboratory Tests Test 09/04/17 12:27 09/05/17 03:38 White Blood Count 13.3 TH/MM3 12.5 TH/MM3 Red Blood Count 3.29 MIL/MM3 3.12 MIL/MM3 Hemoglobin 7.4 GM/DL 7.1 GM/DL Hematocrit 22.7 % 21.6 % Mean Corpuscular Volume 68.9 FL 69.2 FL Mean Corpuscular Hemoglobin 22.6 PG 22.8 PG Mean Corpuscular Hemoglobin Concent 32.8 % 32.9 % Red Cell Distribution Width 17.1 % 16.9 % Platelet Count 170 TH/MM3 189 TH/MM3 Mean Platelet Volume 9.4 FL 9.0 FL Neutrophils (%) (Auto) 81.4 % 80.4 % Lymphocytes (%) (Auto) 9.9 % 10.8 % Monocytes (%) (Auto) 7.2 % 6.9 % Eosinophils (%) (Auto) 1.2 % 1.6 % Basophils (%) (Auto) 0.3 % 0.3 % Neutrophils # (Auto) 10.8 TH/MM3 10.1 TH/MM3 Lymphocytes # (Auto) 1.3 TH/MM3 1.4 TH/MM3 Monocytes # (Auto) 1.0 TH/MM3 0.9 TH/MM3 Eosinophils # (Auto) 0.2 TH/MM3 0.2 TH/MM3 Basophils # (Auto) 0.0 TH/MM3 0.0 TH/MM3 CBC Comment DIFF FINAL DIFF FINAL Differential Comment Laboratory Tests Test 09/04/17 07:46 09/05/17 03:38 Blood Urea Nitrogen 7 MG/DL 7 MG/DL Creatinine 0.62 MG/DL 0.59 MG/DL Random Glucose 97 MG/DL 100 MG/DL Total Protein 6.3 GM/DL 6.3 GM/DL Albumin 2.2 GM/DL 2.2 GM/DL Calcium Level 7.8 MG/DL 8.1 MG/DL Alkaline Phosphatase 91 U/L 92 U/L Aspartate Amino Transf (AST/SGOT) 27 U/L 27 U/L Alanine Aminotransferase (ALT/SGPT) 11 U/L 12 U/L Total Bilirubin 0.6 MG/DL 0.5 MG/DL Sodium Level 135 MEQ/L 136 MEQ/L Potassium Level 3.8 MEQ/L 4.0 MEQ/L Chloride Level 101 MEQ/L 100 MEQ/L Carbon Dioxide Level 27.8 MEQ/L 29.1 MEQ/L Anion Gap 6 MEQ/L 7 MEQ/L Estimat Glomerular Filtration Rate 110 ML/MIN 116 ML/MIN Phosphorus Level 3.4 MG/DL Magnesium Level 1.5 MG/DL Microbiology Date/Time Source Procedure Growth Status 09/04/17 04:25 Blood Peripheral Aerobic Blood Culture - Preliminary NO GROWTH IN 1 DAY Resulted 09/04/17 04:25 Blood Peripheral Anaerobic Blood Culture - Preliminary NO GROWTH IN 1 DAY Resulted 09/04/17 04:20 Blood Peripheral Aerobic Blood Culture - Preliminary NO GROWTH IN 1 DAY Resulted 09/04/17 04:20 Blood Peripheral Anaerobic Blood Culture - Preliminary NO GROWTH IN 1 DAY Resulted 09/02/17 21:00 Stool Stool Stool Occult Blood (DONNY) - Final HEMOCCULT NEGATIVE Complete Microbiology Date/Time Source Procedure Growth Status 08/31/17 20:15 Blood Peripheral Aerobic Blood Culture - Final Viridans Streptococcus Grp Complete 08/31/17 20:15 Anaerobic Blood Culture - Final Viridans Streptococcus Grp Complete 08/31/17 20:10 Blood Peripheral Aerobic Blood Culture - Final Viridans Streptococcus Grp Complete 08/31/17 20:10 Anaerobic Blood Culture - Final Viridans Streptococcus Grp Complete 09/02/17 21:00 Stool Stool Stool Occult Blood (DONNY) - Final HEMOCCULT NEGATIVE Complete 08/31/17 22:30 Urine Suprapubic Urine Urine Culture - Final NO GROWTH IN 48 HOURS. Complete IMAGING: Chest X-Ray 09/03/17 0600 Signed Impressions: Service Date/Time: Sunday, September 03, 2017 03:30 - CONCLUSION: 1. Low lung volumes with bibasilar mild airspace disease, likely atelectasis. Luis Leija MD Aorta w/Runoff CTA 09/02/17 0000 Signed Impressions: Service Date/Time: Saturday, September 02, 2017 12:47 - CONCLUSION: Left renal cortical infarction. 5-6 cm length total occlusion of the left superficial femoral artery in the proximal thigh. Nodular parenchymal opacities in the lung bases bilaterally See above discussion. Adalid Dallas MD Renal Ultrasound 09/01/17 0000 Signed Impressions: Service Date/Time: Friday, September 01, 2017 10:53 - CONCLUSION: 1. No evidence of hydronephrosis. 2. Thickening of the urinary bladder wall a 1.1 cm. 3. Prominent splenomegaly. Baldemar Pineda MD Chest X-Ray 09/01/17 0000 Signed Impressions: Service Date/Time: Friday, September 01, 2017 09:36 - CONCLUSION: Right internal jugular central line in place with the tip overlying the SVC. A pneumothorax is not seen. Adalid Haney MD Breast Ultrasound 09/01/17 0000 Signed Impressions: Service Date/Time: Friday, September 01, 2017 10:48 - CONCLUSION: Negative targeted right breast ultrasound examination. Adalid Haney MD Lower Extremity Ultrasound 08/31/17 0000 Signed Impressions: Service Date/Time: Thursday, August 31, 2017 21:22 - CONCLUSION: 1. No sonographic evidence for lower extremity DVT. 2. Incidental note of bilateral inguinal adenopathy with the largest on the right measuring 3.3 cm and the largest on the left measuring 2.6 cm. This finding is nonspecific but is typically reactive in etiology. Luis Leija MD PHYSICAL EXAMINATION GENERAL: No acute distress. Looks fatigued. HEENT: Head atraumatic. Extraocular movements grossly intact. Pupils reactive to light. No icterus. Oropharynx moist mucosa, no lesions. Neck: Supple without adenopathy. Lungs: Coarse bilateral rhonchi. Heart: 5/6 blowing systolic murmur at the upper right sternal border. Abdomen: Bowel sounds present, soft, obese, nontender. Extremities: Diffuse 2+ edema of the lower extremities. Left tibia distally has lacy purpuric discoloration of the skin and there is punctate purpuric lesion at the plantar aspect of the right great toe. The lesions are not as dark purple as before. Toes 3 and 5 are cyanotic. The leg is extremely tender on palpation. It is warm. No calf tenderness. No nail bed hemorrhages. The skin otherwise has no diffuse rash. Neuro: No gross focal findings. Psychiatric: calm and cooperative. IMPRESSION 1. Sepsis. Strep Viridans. 2. Bacteremia. Strep viridans. 3. History of prostatic aortic valve and so likely recurrent prosthetic valve endocarditis. 4. Left renal cortical and pulmonary and lower extremity septic emboli. 5. Leukocytosis secondary to sepsis from showering of emboli from endocarditis. 6. Acute renal failure. Kidney function improved. RECOMMENDATIONS 1. Continue Ampicillin intravenous. 2. Continue Gentamicin. now that the kidney function is improved but follow the renal function. 3. Monitor clinical response. Still very critically ill. I do not think we need to get RACHEL since it will not alter treatment. Monitor clinical status. Edmar Sloan MD Sep 05, 2017 14:57
[2017-09-05] MEDS: MAGNESIUM SULFATE 1 GM PREMIX 100 ML IV SCH ×2 (16:50→17:56)
[2017-09-05] MEDS: MAGNESIUM OXIDE 400 MG TAB PO SCH (20:02)
[2017-09-06] VITALS (14 sets, daily range): BP systolic 99–119; BP diastolic 65–83; PULSE 96–112; RESP 24–32; TEMP 97.7–100.6; O2SAT 92–99
[2017-09-06] MEDS: HYDROmorphone HCL PF 2 MG/ML VIAL IV PUSH PRN ×7 (00:27→23:42)
[2017-09-06] MEDS: CHLORHEXIDINE GLUCONATE 2 % 1 PACK (2 CLOTHS) TOP SCH ×2 (00:27→20:59)
[2017-09-06] MEDS: AMPICILLIN INJ 2,000 MG in SODIUM CHLORIDE 0.9% INJ 100 ML IV SCH ×5 (00:27→23:42)
[2017-09-06] MEDS: ACETAMINOPHEN/HYDROcodone 325 MG/10 MG TAB PO PRN ×4 (03:12→23:04)
[2017-09-06] MEDS: GENTAMICIN INJ 100 MG in SODIUM CHLORIDE 0.9% INJ 100 ML IV SCH ×3 (04:13→20:12)
--- NOTE | 2017-09-06 04:39 | RADRPT ---
EXAM DATE/TIME: 09/06/2017 03:05 [place] COMPARISON: CT THORAX W/O CONTRAST, September 03, 2017, 12:41. CHEST SINGLE AP, September 03, 2017, 3:30. INDICATIONS : Shortness of breath, possible pulmonary disease. MEDICAL HISTORY : Cardiovascular disease. Congestive heart failure. Hepatitis C. SURGICAL HISTORY : AVR ENCOUNTER: Subsequent ACUITY: 1 week PAIN SCORE: 0/10 LOCATION: Bilateral chest FINDINGS: Stable right IJ central line. Mild patchy airspace disease at the lung bases are. Cardiac silhouette is enlarged. Remainder of the exam is unchanged. CONCLUSION: 1. Stable patchy bilateral lower lung zone airspace disease. 2. No significant interval change. Luis Leija MD on September 06, 2017 at 4:36 Board Certified Radiologist. This report was verified electronically.
[2017-09-06 05:47] LABS: AUTOMATED NEUTROPHIL # 12.3 TH/MM3 (1.8-7.7); BASOPHIL # 0.1 TH/MM3 (0-0.2); BASOPHIL % 0.6 % (0.0-2.0); EOSINOPHIL # 0.2 TH/MM3 (0-0.4); EOSINOPHIL % 1.7 % (0.0-4.0); HEMATOCRIT 22.8 % (35.0-46.0); HEMOGLOBIN 7.4 GM/DL (11.6-15.3); LYMPH % 7.3 % (9.0-44.0); LYMPHOCYTE # 1.1 TH/MM3 (1.0-4.8); MEAN CORPUSCULAR HEMOGLOBIN 22.7 PG (27.0-34.0); MEAN CORPUSCULAR HGB CONC 32.4 % (32.0-36.0); MEAN PLATELET VOLUME 8.7 FL (7.0-11.0); MONO % 4.8 % (0.0-8.0); MONOCYTE # 0.7 TH/MM3 (0-0.9); NEUT % 85.6 % (16.0-70.0); PLATELET COUNT 213 TH/MM3 (150-450); RED BLOOD COUNT 3.26 MIL/MM3 (4.00-5.30); RED CELL DISTRIBUTION WIDTH 17.8 % (11.6-17.2); WHITE BLOOD COUNT 14.4 TH/MM3 (4.0-11.0)
[2017-09-06 06:09] LABS: ALBUMIN 2.3 GM/DL (3.4-5.0); ALT (GPT) 19 U/L (10-53); AST (GOT) 40 U/L (15-37); BICARBONATE 26.6 MEQ/L (21.0-32.0); BLOOD UREA NITROGEN 7 MG/DL (7-18); CALCIUM 8.2 MG/DL (8.5-10.1); CHLORIDE 101 MEQ/L (98-107); CREATININE 0.59 MG/DL (0.50-1.00); GLOMERULAR FILTRATION RATE 116 ML/MIN (>89); GLUCOSE,RANDOM 94 MG/DL (74-106); MAGNESIUM 1.9 MG/DL (1.5-2.5); SODIUM (NA) 134 MEQ/L (136-145)
[2017-09-06 06:14] LABS: ALKALINE PHOSPHATASE 113 U/L (45-117); PHOSPHORUS 3.7 MG/DL (2.5-4.9); TOTAL BILIRUBIN ADULT 0.6 MG/DL (0.2-1.0); TOTAL PROTEIN 6.7 GM/DL (6.4-8.2)
[2017-09-06] MEDS: FAMOTIDINE 20 MG TAB PO SCH ×2 (08:15→20:12)
[2017-09-06] MEDS: DOCUSATE SODIUM 50 MG/SENNA 8.6 MG TAB PO SCH ×2 (08:15→20:11)
[2017-09-06] MEDS: MAGNESIUM OXIDE 400 MG TAB PO SCH ×2 (08:15→20:12)
[2017-09-06] MEDS: SODIUM CHLORIDE 0.9% FLUSH 10 ML FLUSH IV FLUSH SCH ×2 (08:16→20:12)
--- NOTE | 2017-09-06 09:38 | PD.VS.PN ---
Subjective Subjective/Hospital Course Pt w/ improved swelling to L LE B LE warm w/ motor intact Faint Palpable L DP noted Pt w/ strong L Multiphasic DP/PT Objective Vitals/I&O Date Time Temp Pulse Resp B/P (MAP) Pulse Ox O2 Delivery O2 Flow Rate FiO2 09/06/17 08:02 93 21 09/06/17 06:00 96 09/06/17 04:00 107 09/06/17 04:00 99.4 107 27 100/65 (77) 92 09/06/17 02:00 112 09/06/17 00:00 100.6 105 32 115/83 (94) 99 09/06/17 00:00 105 09/05/17 22:00 100 09/05/17 20:00 100 09/05/17 20:00 98.3 100 29 94/66 (75) 96 09/05/17 19:40 99 Nasal Cannula 2.00 09/05/17 18:00 96 09/05/17 16:00 95 09/05/17 16:00 98.8 95 23 123/71 (88) 100 09/05/17 14:00 102 09/05/17 12:00 99.0 104 34 104/74 (84) 96 09/05/17 12:00 104 09/05/17 10:00 101 09/06/17 09/06/17 09/06/17 07:00 15:00 23:00 Intake Total 922.5 ml Output Total 300 ml Balance 622.5 ml Physical Exam GENERAL: A&OX3,NAD,GCS15 SKIN: LE Warm and dry w/ motor intact HEAD: Normocephalic. EYES: No scleral icterus. No injection or drainage. NECK: Supple, trachea midline. No JVD or lymphadenopathy. CARDIOVASCULAR: Regular rate and rhythm without murmurs, gallops, or rubs. RESPIRATORY: Breath sounds equal bilaterally. No accessory muscle use. Pt with stable improved L LE swelling and discoloration Laboratory Laboratory Tests Test 09/05/17 11:15 09/05/17 20:15 09/06/17 02:18 09/06/17 04:21 Activated Partial Thromboplast Time 29.9 39.0 30.9 White Blood Count 14.4 Red Blood Count 3.26 Hemoglobin 7.4 Hematocrit 22.8 Mean Corpuscular Volume 70.0 Mean Corpuscular Hemoglobin 22.7 Mean Corpuscular Hemoglobin Concent 32.4 Red Cell Distribution Width 17.8 Platelet Count 213 Mean Platelet Volume 8.7 Neutrophils (%) (Auto) 85.6 Lymphocytes (%) (Auto) 7.3 Monocytes (%) (Auto) 4.8 Eosinophils (%) (Auto) 1.7 Basophils (%) (Auto) 0.6 Neutrophils # (Auto) 12.3 Lymphocytes # (Auto) 1.1 Monocytes # (Auto) 0.7 Eosinophils # (Auto) 0.2 Basophils # (Auto) 0.1 CBC Comment DIFF FINAL Differential Comment Blood Urea Nitrogen 7 Creatinine 0.59 Random Glucose 94 Total Protein 6.7 Albumin 2.3 Calcium Level 8.2 Phosphorus Level 3.7 Magnesium Level 1.9 Alkaline Phosphatase 113 Aspartate Amino Transf (AST/SGOT) 40 Alanine Aminotransferase (ALT/SGPT) 19 Total Bilirubin 0.6 Sodium Level 134 Potassium Level 4.4 Chloride Level 101 Carbon Dioxide Level 26.6 Anion Gap 6 Estimat Glomerular Filtration Rate 116 Human Chorionic Gonadotropin, Quant LESS THAN 1 Date/Time Source Procedure Growth Status 09/04/17 04:25 Blood Peripheral Aerobic Blood Culture - Preliminary NO GROWTH IN 1 DAY Resulted 09/04/17 04:25 Blood Peripheral Anaerobic Blood Culture - Preliminary NO GROWTH IN 1 DAY Resulted 09/02/17 21:00 Stool Stool Stool Occult Blood (DONNY) - Final HEMOCCULT NEGATIVE Complete 08/31/17 22:30 Urine Suprapubic Urine Urine Culture - Final NO GROWTH IN 48 HOURS. Complete Imaging Last 48 hours Impressions Chest X-Ray 09/06/17 0600 Signed Impressions: Service Date/Time: September 03:05 - CONCLUSION: 1. Stable patchy bilateral lower lung zone airspace disease. 2. No significant interval change. Luis Leija MD Assessment and Plan Plan 36/F w/ focal SFA occlusion but good distal opacification. LE warm w/ motor intact and strong distal pulses present Pt w/ improved swelling and discoloration (L LE) Plan Continue anticoagulation- IV heparin gtt - aggressively to therapeutic Continue Pain control Continue neurovascular checks May continue PT/OOB/WBAT Pt unlikely to need vascular intervention Would recommend home anticoagulation Minoo Mandujano [employer] [facility] [phone] Minoo Mandujano [facility] Sep 06, 2017 09:38
[2017-09-06] MEDS: HEPARIN-D5W 25,000 U/250 ML 250 ML IV PRN (09:52)
--- NOTE | 2017-09-06 13:16 | HHI.IDPN ---
Note Infectious Disease Note Patient feels better. Low grade fever. Shortness of breath with exertion. (+) cough. No sputum. Continues to have pain in the left leg and left foot. Awake and alert. No chest pain. Blood culture has strep viridans. 36-year-old white female who has a history of endocarditis and has been admitted several times for the same. The patient developed shortness of breath, fever and chills, and presented to the emergency department. The patient is noted to be actively using IV drugs. She has history of significant CHF from prior valvular heart disease related to endocarditis. She states that she started feeling short of breath about a week ago and the shortness of breath worsened. After she completed IV antibiotics in April she was put on doxycycline prophylaxis. She reports that she has not been taking the doxycycline. PAST MEDICAL HISTORY: Hepatitis C. IV drug use. prosthetic aortic valve replacement in 2010 and then redo aortic valve replacement in December 2015 MEDICATIONS: 1. Gentamicin. 2. Ampicillin. Current Medications Medications (Trade) Dose Ordered Sig/Jessica Route PRN Reason Start Time Stop Time Status Last Admin Dose Admin Sodium Chloride (NS Flush) 2 ml UNSCH PRN IV FLUSH FLUSH AFTER USING IV ACCESS 08/31/17 22:00 Sodium Chloride (NS Flush) 2 ml BID IV FLUSH 09/01/17 09:00 09/06/17 08:16 Acetaminophen (Tylenol) 650 mg Q6H PRN PO fever 08/31/17 22:00 09/03/17 17:58 Ondansetron HCl (Zofran Inj) 4 mg Q6H PRN IV PUSH NAUSEA OR VOMITING 08/31/17 22:00 Temazepam (Restoril) 15 mg HS PRN PO INSOMNIA 08/31/17 22:00 09/01/17 21:26 Miscellaneous Information 1 [id number] XX 08/31/17 22:00 Chlorhexidine Gluconate (Chlorhexidine 2% Cloth) Taper DAILY@04 TOP 09/01/17 04:00 08/28/18 03:59 09/06/17 00:27 Chlorhexidine Gluconate (Chlorhexidine 2% Cloth) 3 pack UNSCH PRN TOP HYGIENIC CARE 08/31/17 22:00 Senna/Docusate Sodium (Armida-Colace) 1 tab BID PO 09/01/17 09:00 Magnesium Hydroxide (Milk Of Magnesia Liq) 30 ml Q12H PRN PO Mild constipation 08/31/17 22:00 Sennosides (Senokot) 17.2 mg Q12H PRN PO Moderate constipation 08/31/17 22:00 Bisacodyl (Dulcolax Supp) 10 mg DAILY PRN RECTAL SEVERE CONSITIPATION 08/31/17 22:00 Lactulose (Lactulose Liq) 30 ml DAILY PRN PO SEVERE CONSITIPATION 08/31/17 22:00 Norepinephrine Bitartrate 4 mg/ Sodium Chloride 250 ml @ 7.5 mls/hr TITRATE PRN IV Blood pressure management 09/01/17 09:15 09/02/17 14:44 Terbutaline Sulfate (Brethine Inj) 1 mg UNSCH PRN SQ For Extravasation 09/01/17 09:15 Ampicillin Sodium 2000 mg/Sodium Chloride 100 ml @ 400 mls/hr Q6H IV 09/01/17 14:00 09/06/17 08:16 Heparin Sodium/ Dextrose 250 ml @ 10 mls/hr TITRATE PRN IV Coagulation Management 09/02/17 11:00 09/06/17 09:52 Hydromorphone HCl (Dilaudid Pf Inj) 2 mg Q4H PRN IV PUSH PAIN SCALE 6 TO 10 09/02/17 15:00 09/06/17 12:30 Loperamide HCl (Imodium) 2 mg Q4H PRN PO Diarrhea 09/03/17 16:15 09/05/17 14:32 Gentamicin Sulfate 100 mg/ Sodium Chloride 102.5 ml @ 100 mls/hr Q8H IV 09/03/17 21:00 09/06/17 12:30 Albuterol Sulfate (Albuterol Neb) 2.5 mg Q2HR NEB PRN NEB dyspnea 09/04/17 11:30 Acetaminophen/ Hydrocodone Bitart ([place] 10-325 Mg) 1 tab Q6H PRN PO pain 1-5 09/04/17 11:30 09/06/17 11:08 Famotidine (Pepcid) 20 mg BID PO 09/04/17 21:00 09/06/17 08:15 Magnesium Oxide (Mag-Ox) 400 mg Q12HR PO 09/05/17 21:00 09/07/17 20:59 09/06/17 08:15 SOCIAL HISTORY: Positive occasional alcohol. No tobacco. IV drug use in the form of Dilaudid, oxycodone. The patient also uses marijuana. OBJECTIVE: Vital Signs Date Time Temp Pulse Resp B/P (MAP) Pulse Ox O2 Delivery O2 Flow Rate FiO2 09/06/17 10:00 105 09/06/17 08:02 93 21 09/06/17 08:00 97 09/06/17 08:00 98.6 97 28 99/66 (77) 92 09/06/17 06:00 96 09/06/17 04:00 107 09/06/17 04:00 99.4 107 27 100/65 (77) 92 09/06/17 02:00 112 09/06/17 00:00 100.6 105 32 115/83 (94) 99 09/06/17 00:00 105 09/05/17 22:00 100 09/05/17 20:00 100 09/05/17 20:00 98.3 100 29 94/66 (75) 96 09/05/17 19:40 99 Nasal Cannula 2.00 09/05/17 18:00 96 09/05/17 16:00 95 09/05/17 16:00 98.8 95 23 123/71 (88) 100 09/05/17 14:00 102 Laboratory Tests Test 09/05/17 03:38 09/06/17 04:21 White Blood Count 12.5 TH/MM3 14.4 TH/MM3 Red Blood Count 3.12 MIL/MM3 3.26 MIL/MM3 Hemoglobin 7.1 GM/DL 7.4 GM/DL Hematocrit 21.6 % 22.8 % Mean Corpuscular Volume 69.2 FL 70.0 FL Mean Corpuscular Hemoglobin 22.8 PG 22.7 PG Mean Corpuscular Hemoglobin Concent 32.9 % 32.4 % Red Cell Distribution Width 16.9 % 17.8 % Platelet Count 189 TH/MM3 213 TH/MM3 Mean Platelet Volume 9.0 FL 8.7 FL Neutrophils (%) (Auto) 80.4 % 85.6 % Lymphocytes (%) (Auto) 10.8 % 7.3 % Monocytes (%) (Auto) 6.9 % 4.8 % Eosinophils (%) (Auto) 1.6 % 1.7 % Basophils (%) (Auto) 0.3 % 0.6 % Neutrophils # (Auto) 10.1 TH/MM3 12.3 TH/MM3 Lymphocytes # (Auto) 1.4 TH/MM3 1.1 TH/MM3 Monocytes # (Auto) 0.9 TH/MM3 0.7 TH/MM3 Eosinophils # (Auto) 0.2 TH/MM3 0.2 TH/MM3 Basophils # (Auto) 0.0 TH/MM3 0.1 TH/MM3 CBC Comment DIFF FINAL DIFF FINAL Differential Comment Laboratory Tests Test 09/05/17 03:38 09/06/17 04:21 Blood Urea Nitrogen 7 MG/DL 7 MG/DL Creatinine 0.59 MG/DL 0.59 MG/DL Random Glucose 100 MG/DL 94 MG/DL Total Protein 6.3 GM/DL 6.7 GM/DL Albumin 2.2 GM/DL 2.3 GM/DL Calcium Level 8.1 MG/DL 8.2 MG/DL Phosphorus Level 3.4 MG/DL 3.7 MG/DL Magnesium Level 1.5 MG/DL 1.9 MG/DL Alkaline Phosphatase 92 U/L 113 U/L Aspartate Amino Transf (AST/SGOT) 27 U/L 40 U/L Alanine Aminotransferase (ALT/SGPT) 12 U/L 19 U/L Total Bilirubin 0.5 MG/DL 0.6 MG/DL Sodium Level 136 MEQ/L 134 MEQ/L Potassium Level 4.0 MEQ/L 4.4 MEQ/L Chloride Level 100 MEQ/L 101 MEQ/L Carbon Dioxide Level 29.1 MEQ/L 26.6 MEQ/L Anion Gap 7 MEQ/L 6 MEQ/L Estimat Glomerular Filtration Rate 116 ML/MIN 116 ML/MIN Human Chorionic Gonadotropin, Quant LESS THAN 1 MIU/ML Microbiology Date/Time Source Procedure Growth Status 09/04/17 04:25 Blood Peripheral Aerobic Blood Culture - Preliminary NO GROWTH IN 2 DAYS Resulted 09/04/17 04:25 Blood Peripheral Anaerobic Blood Culture - Preliminary NO GROWTH IN 2 DAYS Resulted 09/04/17 04:20 Blood Peripheral Aerobic Blood Culture - Preliminary NO GROWTH IN 2 DAYS Resulted 09/04/17 04:20 Blood Peripheral Anaerobic Blood Culture - Preliminary NO GROWTH IN 2 DAYS Resulted Microbiology Date/Time Source Procedure Growth Status 08/31/17 20:15 Blood Peripheral Aerobic Blood Culture - Final Viridans Streptococcus Grp Complete 08/31/17 20:15 Anaerobic Blood Culture - Final Viridans Streptococcus Grp Complete 08/31/17 20:10 Blood Peripheral Aerobic Blood Culture - Final Viridans Streptococcus Grp Complete 08/31/17 20:10 Anaerobic Blood Culture - Final Viridans Streptococcus Grp Complete 09/02/17 21:00 Stool Stool Stool Occult Blood (DONNY) - Final HEMOCCULT NEGATIVE Complete 08/31/17 22:30 Urine Suprapubic Urine Urine Culture - Final NO GROWTH IN 48 HOURS. Complete IMAGING: Chest X-Ray 09/03/17 0600 Signed Impressions: Service Date/Time: Sunday, September 03, 2017 03:30 - CONCLUSION: 1. Low lung volumes with bibasilar mild airspace disease, likely atelectasis. Luis Leija MD Aorta w/Runoff CTA 09/02/17 0000 Signed Impressions: Service Date/Time: Saturday, September 02, 2017 12:47 - CONCLUSION: Left renal cortical infarction. 5-6 cm length total occlusion of the left superficial femoral artery in the proximal thigh. Nodular parenchymal opacities in the lung bases bilaterally See above discussion. Adalid Dallas MD Renal Ultrasound 09/01/17 0000 Signed Impressions: Service Date/Time: Friday, September 01, 2017 10:53 - CONCLUSION: 1. No evidence of hydronephrosis. 2. Thickening of the urinary bladder wall a 1.1 cm. 3. Prominent splenomegaly. Baldemar Pineda MD Chest X-Ray 09/01/17 0000 Signed Impressions: Service Date/Time: Friday, September 01, 2017 09:36 - CONCLUSION: Right internal jugular central line in place with the tip overlying the SVC. A pneumothorax is not seen. Adalid Haney MD Breast Ultrasound 09/01/17 0000 Signed Impressions: Service Date/Time: Friday, September 01, 2017 10:48 - CONCLUSION: Negative targeted right breast ultrasound examination. Adalid Haney MD Lower Extremity Ultrasound 08/31/17 0000 Signed Impressions: Service Date/Time: Thursday, August 31, 2017 21:22 - CONCLUSION: 1. No sonographic evidence for lower extremity DVT. 2. Incidental note of bilateral inguinal adenopathy with the largest on the right measuring 3.3 cm and the largest on the left measuring 2.6 cm. This finding is nonspecific but is typically reactive in etiology. Luis Leija MD PHYSICAL EXAMINATION GENERAL: No acute distress. Looks fatigued. HEENT: Head atraumatic. Extraocular movements grossly intact. Pupils reactive to light. No icterus. Oropharynx moist mucosa, no lesions. Neck: Supple without adenopathy. Lungs: Coarse bilateral rhonchi. Heart: 5/6 blowing systolic murmur at the upper right sternal border. Abdomen: Bowel sounds present, soft, obese, nontender. Extremities: Diffuse 2+ edema of the lower extremities. Lesions at Left tibia distally and left foot and great toe are more red and not purpuric as before. Toes 3 and 5 are cyanotic. The leg is tender on palpation. It is warm. No calf tenderness. No nail bed hemorrhages. SKIN: no diffuse rash. Neuro: No gross focal findings. Psychiatric: calm and cooperative. IMPRESSION 1. Sepsis. Strep Viridans. 2. Bacteremia. Strep viridans. 3. History of prostatic aortic valve and so likely recurrent prosthetic valve endocarditis. 4. Left renal cortical and pulmonary and lower extremity septic emboli. 5. Leukocytosis secondary to sepsis from showering of emboli from endocarditis. 6. Acute renal failure. Kidney function improved. Stable. RECOMMENDATIONS 1. Continue Ampicillin intravenous. 2. Continue Gentamicin. now that the kidney function is improved but follow the renal function. 3. Monitor clinical response. I do not think we need to get RACHEL since it will not alter treatment. Monitor clinical status. Edmar Sloan MD Sep 06, 2017 13:16
[2017-09-06] MEDS ORDERED: ALTEPLASE RECOMBINANT 2 MG VIAL INTRACATH ONE (14:15)
--- NOTE | 2017-09-06 14:58 | HHI.CCPN ---
Subjective Remarks/Hospital Course 36-year-old female that presents to the ED for evaluation of shortness of breath and swelling. 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 Patient initially did not mention to anybody that she was doing drugs but she did tell me that she injected herself about 4 days ago. She uses Dilaudid. She states that she's been having fevers. Patient is somewhat somnolent and hard to assess she doesn't really provide much information. Family members at the bedside and he provides more information about the heart. Per patient she'll he takes 2 medications. Patient asked if she is taking any antibiotics and she said yes but when I ask her what kind is she is taking currently she states that she has not been on antibiotics for some time. Patient apparently does follow with a local manager drug safety but she cannot tell me the name of it. She states that she's been having swelling to her legs for the past month. She denies any recent travel or injury. No other medical issues at this time. No allergies to medication. 09/01: remains critical on Dopamine 10 mcg/ min. Appears ill. Limited bedside echo did not show any large vegetation, but exam was limited, tricuspid and aortic valve not well visualized. Also states that had right breast abscess 2 months ago, drained by herself. Now may have abscess vs scar tissue. Injects upper arm and bilateral breasts. US of right breast ordered 09/02: Remains on 3 mcg/min of Levophed. Complaints of severe left lower extremity pain. Erythematous purpuric purple discoloration of the left lower anterior segment left dorsum of the foot with cyanotic nailbeds. Weak DP pulses+ . 2D Echo failed to reveal definite vegetation. Will consider RACHEL 09/03: Continues to be on Levophed 3 mcg/min, remains critical. We are left lower extremity pain but slightly better. Currently on heparin not therapeutic yet. CTA with runoff showed Left renal cortical infarction. 5-6 cm length total occlusion of the left superficial femoral artery in the proximal thigh but good distal opacification. Dr. Palacios recommended IV heparin no surgical intervention at this time. Patient is still at high risk for further embolic episodes. Blood cultures growing strep viridans. Also patient complains about epigastric and left-sided abdominal pain and left-sided chest pain which is more pleuritic. Pain is severe on deep inspiration 09/04: Resting in bed in no acute distress. Dopplerable lower extremity pulses noted. Remains on heparin drip. Vascular surgery continues to follow. 09/05: Resting in bed in mild respiratory distress. Continues to cough. Nonproductive. Left lower extremity leg improved. Reviewed vascular surgeries note. Likely will require long-term medical regulation post hospitalization Subjective 09/06: Improve respiratory status today. Pain in left lower extremity much improved. Tolerating diet. Objective Vital Signs Date Time Temp Pulse Resp B/P (MAP) Pulse Ox O2 Delivery O2 Flow Rate FiO2 09/06/17 10:00 105 09/06/17 08:02 93 21 09/06/17 08:00 98.6 28 99/66 (77) 09/05/17 19:40 Nasal Cannula 2.00 Intake and Output 09/06/17 09/06/17 09/06/17 07:59 15:59 23:59 Intake Total 922.5 ml 100 ml Output Total 300 ml Balance 622.5 ml 100 ml Result Diagram: 09/06/17 0421 09/06/17 0421 Other Results Microbiology Date/Time Source Procedure Growth Status 09/04/17 04:25 Blood Peripheral Aerobic Blood Culture - Preliminary NO GROWTH IN 2 DAYS Resulted 09/04/17 04:25 Blood Peripheral Anaerobic Blood Culture - Preliminary NO GROWTH IN 2 DAYS Resulted 09/02/17 21:00 Stool Stool Stool Occult Blood (DONNY) - Final HEMOCCULT NEGATIVE Complete 08/31/17 22:30 Urine Suprapubic Urine Urine Culture - Final NO GROWTH IN 48 HOURS. Complete Imaging Last Impressions Chest X-Ray 09/06/17 0600 Signed Impressions: Service Date/Time: September 03:05 - CONCLUSION: 1. Stable patchy bilateral lower lung zone airspace disease. 2. No significant interval change. Luis Leija MD Chest CT 09/03/17 0000 Signed Impressions: Service Date/Time: Sunday, September 03, 2017 12:41 - CONCLUSION: 1. There are at least 5 pulmonary nodules present bilaterally with the largest measuring 19 mm. None demonstrate cavitation but it is possible that these represent septic emboli. Suggest followup to assess for change. 2. Splenomegaly with subtle wedge-shaped areas of low-density in the mid spleen which could represent infarcts. 3. Mild cardiomegaly in this patient post aortic valve replacement. Low density of the cardiac blood pool suggests anemia. Adalid Galo MD Aorta w/Runoff CTA 09/02/17 0000 Signed Impressions: Service Date/Time: Saturday, September 02, 2017 12:47 - CONCLUSION: Left renal cortical infarction. 5-6 cm length total occlusion of the left superficial femoral artery in the proximal thigh. Nodular parenchymal opacities in the lung bases bilaterally See above discussion. Adalid Dallas MD Renal Ultrasound 09/01/17 0000 Signed Impressions: Service Date/Time: Friday, September 01, 2017 10:53 - CONCLUSION: 1. No evidence of hydronephrosis. 2. Thickening of the urinary bladder wall a 1.1 cm. 3. Prominent splenomegaly. Baldemar Pineda MD Breast Ultrasound 09/01/17 0000 Signed Impressions: Service Date/Time: Friday, September 01, 2017 10:48 - CONCLUSION: Negative targeted right breast ultrasound examination. Adalid Haney MD Lower Extremity Ultrasound 08/31/17 0000 Signed Impressions: Service Date/Time: Thursday, August 31, 2017 21:22 - CONCLUSION: 1. No sonographic evidence for lower extremity DVT. 2. Incidental note of bilateral inguinal adenopathy with the largest on the right measuring 3.3 cm and the largest on the left measuring 2.6 cm. This finding is nonspecific but is typically reactive in etiology. Luis Leija MD Objective Remarks GENERAL: 36-year-old female resting in bed in no acute distress SKIN: Warm and dry. Patient does appear to have puncture wounds from where she states been injecting recently in her arms, bilateral upper breast. HEAD: Atraumatic. Normocephalic. EYES: Pupils equal and round. No scleral icterus. No injection or drainage. ENT: No nasal bleeding or discharge. Mucous membranes pink and moist. NECK: Trachea midline. No JVD. CHEST: Bilateral upper breast has puncture wounds from injection. Pain to point palpation left upper thorax CARDIOVASCULAR: 2/6 pansystolic murmurat the left lower sternal border. RESPIRATORY: Few fine crackles present bilaterally. No wheezing GASTROINTESTINAL: Abdomen soft, tender to deep palpation. No guarding rigidity. Positive hepatosplenomegaly MUSCULOSKELETAL: 2+ pitting edema to the lower extremities. Erythematous purpuric rash of the left lower extremity anterior campbell and foot, punctate lesion plantar right great toe. Left leg extremely tender below the left knee. Dopplerable DP pulses bilaterally NEUROLOGICAL: Awake and alert. Motor grossly within normal limits. Five out of 5 muscle strength in the arms and legs. Normal speech. Urinary Catheter: No Assessment to: Continue Vascular Central Line Catheter: Yes Assessment to: Continue Date of Insertion: Sep 01, 2017 Line: Central Venous Catheter Side: Right Location: Internal, Jugular A/P Assessment and Plan Neuro/Psych: IVDU -hydromorphone History of THC use - Continue pain control hydrocodone/acetaminophen 10/325 1 tablet every 6 hours as needed pain 1 through 5 with hydromorphone 2 mg IV every 4 hours as needed pain 6-10 (patient has severpain from ischemic leg) - Acetaminophen 650 mg p.o. every 6 hours as needed fever CVS/ID Septic shock Infective endocarditis involving aortic prosthetic valve Multiple septic emboli including pulmonary, splenic and vascular History of fungal and bacterial prosthetic valve endocarditis Strep viridans bacteremia 5-6 cm length total occlusion of the left superficial femoral artery in the proximal thigh - Recurrent aortic prosthetic valve endocarditis -initially placed 2010 with redo 2015. - Now with strep viridans in blood cultures 08/31 - Broad-spectrum antibiotic with ampicillin and gentamicin. 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 Holloway following - Anticoagulation with Heparin gtt - Infectious disease Dr. Sloan Norepinephrine to maintain mean arterial pressures greater than equal to 65 - A RACHEL at this point will not plant changer - Extensive counselling given about IP Rehab Microbiology 09/04 -blood cultures 2 -pending 08/31 -urine culture -no growth 08/31 -blood cultures 2 -strep viridian Resp: Acute respiratory insufficiency 5 pulmonary nodules likely septic emboli -Nasal cannula to keep oxygen saturation above 92% -Incentives spirometry while awake -As needed albuterol aerosols every 2 hours. Dyspnea - CT thorax revealed 5 bilateral pulmonary lesions/nodules largest which is 19 mm. No cavitation noted but likely septic emboli. GI: Hepatitis C Splenic infarction Hypoalbuminemia - Heart healthy diet -Famotidine for GI prophylaxis -Docusate sodium/senna 1 tablet twice daily for bowel regimen Renal/: Acute on chronic kidney disease Left renal cortical infarction - Acute renal failure secondary to ATN and dehydration - CT imaging revealed left renal cortical infarction - Renal ultrasound-thickening of urinary bladder Endo: Sliding scale insulin if indicated to maintain euglycemia Heme: Anemia Leukocytosis - Monitor CBC CMP and coags -Does not meet transfusion threshold at this time FEN: Hyponatremia Replace electrolytes as clinically indicated MSK: History of right breast abscess Elevated BMI - Ultrasound of the left lower extremity negative for DVT - Right breast ultrasound negative for abscess -Weight loss encouraged DVT GI prophylaxis - Heparin gtt - famotidine Level 2 follow-up Francis Dominguez MD Sep 06, 2017 14:58
[2017-09-06] MEDS ORDERED: MISCELLANEOUS PHARMACY INFORMATION OTHER ONE (19:15)
[2017-09-06] MEDS: ARGATROBAN INJ 250 MG in SODIUM CHLOR 0.9% 250 ML INJ 250 ML IV PRN (20:14)
--- NOTE | 2017-09-06 21:16 | MB ---
cc: Myra Silva MD, Ruby Anne E MD Biga,Francis Morin MD DATE OF CONSULT: 09/06/2017 DATE OF SERVICE: 09/06/2017 REFERRING PHYSICIAN: Dr. Dominguez CHIEF COMPLAINT: Dr. Dominguez requests a consultation for Ms. Segal regarding heparin refractory. HISTORY OF PRESENT ILLNESS: Ms. Segal is a 36-year-old woman, with history of IV drug abuse and recurrent endocarditis. She has had a relapse of her activity. She has history of pulmonary embolism and infected valves. She has significant congestive heart failure and presented to the emergency room on 08/31/2017, with sepsis. She is followed by Infectious Disease for her endocarditis. She previously received antibiotic therapy for enterococcus faecalis and staph aureus. There is questionable compliance. Her current blood culture from 08/31/2017, shows viridans streptococcus. Two out of two bottles were positive. She is on ampicillin and gentamicin. She remains critically ill. Her course is complicated by cold left lower extremity, evaluated by Vascular Surgery. 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 There is satisfactory calf runoff present. For this reason, conservative management with anticoagulation is continued. She was placed on unfractionated heparin. Her heparin dose has been titrated from 1000 units/hour to 2500 units/hour with a PTT remaining subtherapeutic. Her last PTT is 32 seconds from 09/06/2017, at 2 p.m. For this reason, Hematology/Oncology is consulted. She denies any bleeding. She reports some improvement in the way that the left leg looks. She still has ischemic changes in the skin. She still has a significant amount of pain in the left foot. Pulse is weak, but palpable on the left foot. She remains afebrile, except for a fever spike early this morning at 100.6. She is tachycardic and has continued cough. She still feels unwell. Significant finding is a microcytic anemia. Her hemoglobin is 7.4. Her platelet count is normal. White blood cell count continues to be elevated, currently 14.4, predominantly neutrophils. Ultrasound of the lower extremity from 08/31/2017, shows no evidence of deep vein thrombosis. There is some reactive inguinal adenopathy. PAST MEDICAL HISTORY: Recurrent bacterial endocarditis, bacteremia, history of prosthetic aortic valve and subsequent redo, chronic active hepatitis C, intravenous drug use, microcytic anemia, consistent with iron deficiency, left lower extremity arterial event, bacterial endocarditis with viridans streptococcus. PAST SURGICAL HISTORY: Left forearm surgery, right neck central line placement, aortic valve replacement in 2010 and 2005. FAMILY HISTORY: No significant family history of venous thromboembolic events. Family history does not appear to be related to antithrombin deficiency. Both parents are alive. Father is reportedly messed up, per patient. Mother is doing well. SOCIAL HISTORY: Significant for IV drug abuse. She drinks alcohol socially. She denies any tobacco use. PHYSICAL EXAMINATION: VITAL SIGNS: Temperature 97.7, heart rate 110, blood pressure 119/78, saturation 98%, respiratory rate 25. GENERAL: Ms. Segal is a well-developed, well-nourished young woman, who looks critically ill. She looks anxious and wide-eyed sitting in bed. She has a productive cough and difficulty breathing. Her main complaint is related to pain in the left leg. LUNGS: Clear anteriorly. CARDIOVASCULAR: Tachycardia. ABDOMEN: Benign. LOWER EXTREMITIES: Right foot has mild swelling, good pulses. The left foot with ischemic skin changes in the left 5th digit, dorsum of the foot, in anterior aspect of the left lower extremity. There are diminished pulses. She has extreme pain. LABORATORY DATA: Significant for microcytic anemia with a hemoglobin of 7.4, MCV is 7. White blood cell count elevated. BUN and creatinine are normal. Albumin is decreased at 2.3. PTT 32 seconds. Hepatitis antibody positive from 12/28/2015. ASSESSMENT AND PLAN: Mrs. Segal is a 36-year-old woman, with significant history of intravenous drug abuse, recurrent bacterial endocarditis, status post aortic valve replacement x2. She presents with sepsis and new bacterial endocarditis with strep viridans. She is on antibiotic therapy. Her course is complicated by occlusion of the left lower extremity. She is being managed medically, as she is refractory to heparin anticoagulation, with subtherapeutic PTT despite increase in heparin dose to 2500 units/hour. I had a lengthy discussion with Ms. Segal, the etiology of her subtherapeutic INR. She has no significant family history of thrombotic events to suggest hereditary antithrombin deficiency. I suspect the antithrombin deficiency comes from her impaired production from her liver disease. She has chronic active hepatitis C. She has increased consumption from disseminated intravascular coagulation and acute illness, bacterial endocarditis. Protein losses are also considered. She had mild proteinuria when she first was admitted. Thrombin inactivates antithrombin. This would abrogate the effect of unfractionated heparin and low molecular weight heparin. We discussed the options of replacing her deficient antithrombin, which is common in critically ill patients. Antithrombin recombinant and plasma derives have a half-life of 2-4 days. This would help with her anticoagulant therapy. However, we do not have Thrombate or ATryn available. It is not clear when we would be able to get this drug. She is clinically improving on 2500 units of unfractionated heparin. However, a better anticoagulant may be argatroban, which is a direct thrombin inhibitor and does not require antithrombin effect. Baseline antithrombin functional activity level will be obtained today. I anticipate it would take several days to get result back. In the meantime, anticoagulant therapy with a direct thrombin inhibitor may be more beneficial. We will start argatroban tonight. Her case was discussed with Pharmacy. Her questions were answered to her satisfaction. MD BRENDA Mccoy// , 07:21 PM , 08:49 PM
[2017-09-06 22:41] LABS: INTERNATIONAL NORMALIZED RATIO 1.2 RATIO; PROTHROMBIN TIME - PATIENT 12.3 SEC (9.8-11.6)
[2017-09-06] MEDS: TEMAZEPAM 15 MG CAP PO PRN (23:04)
[2017-09-06] MEDS: ACETAMINOPHEN 325 MG TAB PO PRN (23:41)
[2017-09-06] MEDS: RESP: ALBUTEROL 2.5 MG/3 ML NEB (PRN) NEB (23:57)
[2017-09-07] VITALS (15 sets, daily range): BP systolic 96–113; BP diastolic 60–70; PULSE 92–180; RESP 18–31; TEMP 98.7–101.3; O2SAT 94–100
[2017-09-07] MEDS: RESP: ALBUTEROL 2.5 MG/3 ML NEB (PRN) NEB (02:47)
[2017-09-07] MEDS: HYDROmorphone HCL PF 2 MG/ML VIAL IV PUSH PRN ×6 (04:09→23:58)
[2017-09-07 04:19] LABS: HEMATOCRIT 22.6 % (35.0-46.0); HEMOGLOBIN 7.3 GM/DL (11.6-15.3); MEAN CELL VOLUME 70.1 FL (80.0-100.0); MEAN CORPUSCULAR HEMOGLOBIN 22.8 PG (27.0-34.0); MEAN CORPUSCULAR HGB CONC 32.6 % (32.0-36.0); MEAN PLATELET VOLUME 8.5 FL (7.0-11.0); PLATELET COUNT 250 TH/MM3 (150-450); RED BLOOD COUNT 3.22 MIL/MM3 (4.00-5.30); RED CELL DISTRIBUTION WIDTH 17.6 % (11.6-17.2); WHITE BLOOD COUNT 13.6 TH/MM3 (4.0-11.0)
[2017-09-07] MEDS: GENTAMICIN INJ 100 MG in SODIUM CHLORIDE 0.9% INJ 100 ML IV SCH ×3 (04:26→20:06)
[2017-09-07 04:53] LABS: CALCIUM 8.4 MG/DL (8.5-10.1); CREATININE 0.72 MG/DL (0.50-1.00); MAGNESIUM 1.8 MG/DL (1.5-2.5); PHOSPHORUS 4.8 MG/DL (2.5-4.9)
[2017-09-07] MEDS: ACETAMINOPHEN/HYDROcodone 325 MG/10 MG TAB PO PRN ×3 (06:22→22:54)
--- NOTE | 2017-09-07 07:14 | PD.VS.PN ---
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; on argatroban Objective Vitals/I&O Date Time Temp Pulse Resp B/P (MAP) Pulse Ox O2 Delivery O2 Flow Rate FiO2 09/07/17 06:00 111 09/07/17 04:00 111 09/07/17 04:00 98.7 92 25 104/63 (77) 98 09/07/17 02:00 111 09/07/17 00:16 99.9 117 25 113/70 (84) 98 09/07/17 00:00 101.3 116 25 113/70 (84) 98 09/07/17 00:00 109 09/06/17 22:00 109 09/06/17 20:10 98 21 09/06/17 20:00 97.7 109 25 112/65 (81) 98 09/06/17 20:00 109 09/06/17 18:00 110 09/06/17 16:00 97.7 101 25 119/78 (92) 98 09/06/17 16:00 101 09/06/17 14:00 100 09/06/17 12:00 97 09/06/17 12:00 97.9 97 24 100/73 (82) 95 09/06/17 10:00 105 09/06/17 08:02 93 21 09/06/17 08:00 97 09/06/17 08:00 98.6 97 28 99/66 (77) 92 09/07/17 09/07/17 09/07/17 07:00 15:00 23:00 Intake Total 525 ml Output Total 1375 ml Balance -850 ml Physical Exam L foot warm motor intact less swelling skin no change strong Doppler signals Laboratory Laboratory Tests Test 09/06/17 08:26 09/06/17 14:00 09/06/17 19:20 09/06/17 23:51 Activated Partial Thromboplast Time 31.1 32.0 32.2 58.7 Prothrombin Time 12.3 Prothromb Time International Ratio 1.2 Test 09/07/17 03:50 09/07/17 05:36 White Blood Count 13.6 Red Blood Count 3.22 Hemoglobin 7.3 Hematocrit 22.6 Mean Corpuscular Volume 70.1 Mean Corpuscular Hemoglobin 22.8 Mean Corpuscular Hemoglobin Concent 32.6 Red Cell Distribution Width 17.6 Platelet Count 250 Mean Platelet Volume 8.5 Blood Urea Nitrogen 9 Creatinine 0.72 Random Glucose 141 Calcium Level 8.4 Phosphorus Level 4.8 Magnesium Level 1.8 Sodium Level 137 Potassium Level 4.2 Chloride Level 102 Carbon Dioxide Level 29.0 Anion Gap 6 Estimat Glomerular Filtration Rate 92 Activated Partial Thromboplast Time 53.8 Date/Time Source Procedure Growth Status 09/07/17 05:43 Blood Peripheral Aerobic Blood Culture Pending Received 09/07/17 05:43 Blood Peripheral Anaerobic Blood Culture Pending Received 09/02/17 21:00 Stool Stool Stool Occult Blood (DONNY) - Final HEMOCCULT NEGATIVE Complete 08/31/17 22:30 Urine Suprapubic Urine Urine Culture - Final NO GROWTH IN 48 HOURS. Complete Imaging Last 48 hours Impressions Chest X-Ray 09/06/17 0600 Signed Impressions: Service Date/Time: , September 06, 2017 03:05 - CONCLUSION: 1. Stable patchy bilateral lower lung zone airspace disease. 2. No significant interval change. Luis Leija MD Assessment and Plan Plan Likely embolic from BE needs aggressive anticoagulation but defer to primary service/hematology of choice of agents antibiotics per primary service continue neurovasc checks Discharge Planning on anticoagulation but anytime from vascular surgery standpoint ok to WBAT Will arrange f/u in 2-3 weeks with Jerald Dorantes MD Sep 07, 2017 07:14
[2017-09-07] MEDS: FAMOTIDINE 20 MG TAB PO SCH ×2 (07:52→20:06)
[2017-09-07] MEDS: DOCUSATE SODIUM 50 MG/SENNA 8.6 MG TAB PO SCH ×2 (07:53→20:07)
[2017-09-07] MEDS: MAGNESIUM OXIDE 400 MG TAB PO SCH (07:53)
[2017-09-07] MEDS: AMPICILLIN INJ 2,000 MG in SODIUM CHLORIDE 0.9% INJ 100 ML IV SCH ×3 (07:53→20:06)
[2017-09-07] MEDS: SODIUM CHLORIDE 0.9% FLUSH 10 ML FLUSH IV FLUSH SCH ×2 (07:53→20:06)
--- NOTE | 2017-09-07 11:18 | HHI.IDPN ---
Note Infectious Disease Note Patient feels okay. Temperature spike of 101 yesterday. Has occasional coughing spells. No sputum production. Shortness of breath with exertion. Continues to have pain in the left leg and left foot. Awake and alert. No chest pain. 36-year-old white female who has a history of endocarditis and has been admitted several times for the same. The patient developed shortness of breath, fever and chills, and presented to the emergency department. The patient is noted to be actively using IV drugs. She has history of significant CHF from prior valvular heart disease related to endocarditis. She states that she started feeling short of breath about a week ago and the shortness of breath worsened. After she completed IV antibiotics in April she was put on doxycycline prophylaxis. She reports that she has not been taking the doxycycline. PAST MEDICAL HISTORY: Hepatitis C. IV drug use. prosthetic aortic valve replacement in 2010 and then redo aortic valve replacement in December 2015 MEDICATIONS: 1. Gentamicin. 2. Ampicillin. Current Medications Medications (Trade) Dose Ordered Sig/Jessica Route PRN Reason Start Time Stop Time Status Last Admin Dose Admin Sodium Chloride (NS Flush) 2 ml UNSCH PRN IV FLUSH FLUSH AFTER USING IV ACCESS 08/31/17 22:00 Sodium Chloride (NS Flush) 2 ml BID IV FLUSH 09/01/17 09:00 09/07/17 07:53 Acetaminophen (Tylenol) 650 mg Q6H PRN PO fever 08/31/17 22:00 09/06/17 23:41 Ondansetron HCl (Zofran Inj) 4 mg Q6H PRN IV PUSH NAUSEA OR VOMITING 08/31/17 22:00 Temazepam (Restoril) 15 mg HS PRN PO INSOMNIA 08/31/17 22:00 09/06/17 23:04 Miscellaneous Information 1 [id number] XX 08/31/17 22:00 Chlorhexidine Gluconate (Chlorhexidine 2% Cloth) Taper DAILY@04 TOP 09/01/17 04:00 08/28/18 03:59 09/06/17 20:59 Chlorhexidine Gluconate (Chlorhexidine 2% Cloth) 3 pack UNSCH PRN TOP HYGIENIC CARE 08/31/17 22:00 Senna/Docusate Sodium (Armida-Colace) 1 tab BID PO 09/01/17 09:00 09/06/17 20:11 Magnesium Hydroxide (Milk Of Magnesia Liq) 30 ml Q12H PRN PO Mild constipation 08/31/17 22:00 Sennosides (Senokot) 17.2 mg Q12H PRN PO Moderate constipation 08/31/17 22:00 Bisacodyl (Dulcolax Supp) 10 mg DAILY PRN RECTAL SEVERE CONSITIPATION 08/31/17 22:00 Lactulose (Lactulose Liq) 30 ml DAILY PRN PO SEVERE CONSITIPATION 08/31/17 22:00 Norepinephrine Bitartrate 4 mg/ Sodium Chloride 250 ml @ 7.5 mls/hr TITRATE PRN IV Blood pressure management 09/01/17 09:15 09/02/17 14:44 Terbutaline Sulfate (Brethine Inj) 1 mg UNSCH PRN SQ For Extravasation 09/01/17 09:15 Ampicillin Sodium 2000 mg/Sodium Chloride 100 ml @ 400 mls/hr Q6H IV 09/01/17 14:00 09/07/17 07:53 Hydromorphone HCl (Dilaudid Pf Inj) 2 mg Q4H PRN IV PUSH PAIN SCALE 6 TO 10 09/02/17 15:00 09/07/17 04:09 Loperamide HCl (Imodium) 2 mg Q4H PRN PO Diarrhea 09/03/17 16:15 09/05/17 14:32 Gentamicin Sulfate 100 mg/ Sodium Chloride 102.5 ml @ 100 mls/hr Q8H IV 09/03/17 21:00 09/07/17 04:26 Albuterol Sulfate (Albuterol Neb) 2.5 mg Q2HR NEB PRN NEB dyspnea 09/04/17 11:30 09/07/17 02:47 Acetaminophen/ Hydrocodone Bitart ([place] 10-325 Mg) 1 tab Q6H PRN PO pain 1-5 09/04/17 11:30 09/07/17 06:22 Famotidine (Pepcid) 20 mg BID PO 09/04/17 21:00 09/07/17 07:52 Magnesium Oxide (Mag-Ox) 400 mg Q12HR PO 09/05/17 21:00 09/07/17 20:59 09/07/17 07:53 Argatroban 250 mg/ Sodium Chloride 252.5 ml @ 3.11 mls/hr TITRATE PRN IV aPTT < 50 09/06/17 19:15 09/06/17 20:14 SOCIAL HISTORY: Positive occasional alcohol. No tobacco. IV drug use in the form of Dilaudid, oxycodone. The patient also uses marijuana. OBJECTIVE: Vital Signs Date Time Temp Pulse Resp B/P (MAP) Pulse Ox O2 Delivery O2 Flow Rate FiO2 09/07/17 10:00 111 09/07/17 08:00 98.9 114 31 96/62 (73) 95 09/07/17 08:00 94 Nasal Cannula 3.00 09/07/17 08:00 114 09/07/17 06:00 111 09/07/17 04:00 111 09/07/17 04:00 98.7 92 25 104/63 (77) 98 09/07/17 02:00 111 09/07/17 00:16 99.9 117 25 113/70 (84) 98 09/07/17 00:00 101.3 116 25 113/70 (84) 98 09/07/17 00:00 109 09/06/17 22:00 109 09/06/17 20:10 98 21 09/06/17 20:00 97.7 109 25 112/65 (81) 98 09/06/17 20:00 109 09/06/17 18:00 110 09/06/17 16:00 97.7 101 25 119/78 (92) 98 09/06/17 16:00 101 09/06/17 14:00 100 09/06/17 12:00 97 09/06/17 12:00 97.9 97 24 100/73 (82) 95 Laboratory Tests Test 09/06/17 04:21 09/07/17 03:50 White Blood Count 14.4 TH/MM3 13.6 TH/MM3 Red Blood Count 3.26 MIL/MM3 3.22 MIL/MM3 Hemoglobin 7.4 GM/DL 7.3 GM/DL Hematocrit 22.8 % 22.6 % Mean Corpuscular Volume 70.0 FL 70.1 FL Mean Corpuscular Hemoglobin 22.7 PG 22.8 PG Mean Corpuscular Hemoglobin Concent 32.4 % 32.6 % Red Cell Distribution Width 17.8 % 17.6 % Platelet Count 213 TH/MM3 250 TH/MM3 Mean Platelet Volume 8.7 FL 8.5 FL Neutrophils (%) (Auto) 85.6 % Lymphocytes (%) (Auto) 7.3 % Monocytes (%) (Auto) 4.8 % Eosinophils (%) (Auto) 1.7 % Basophils (%) (Auto) 0.6 % Neutrophils # (Auto) 12.3 TH/MM3 Lymphocytes # (Auto) 1.1 TH/MM3 Monocytes # (Auto) 0.7 TH/MM3 Eosinophils # (Auto) 0.2 TH/MM3 Basophils # (Auto) 0.1 TH/MM3 CBC Comment DIFF FINAL Differential Comment Laboratory Tests Test 09/06/17 04:21 09/07/17 03:50 Blood Urea Nitrogen 7 MG/DL 9 MG/DL Creatinine 0.59 MG/DL 0.72 MG/DL Random Glucose 94 MG/DL 141 MG/DL Total Protein 6.7 GM/DL Albumin 2.3 GM/DL Calcium Level 8.2 MG/DL 8.4 MG/DL Phosphorus Level 3.7 MG/DL 4.8 MG/DL Magnesium Level 1.9 MG/DL 1.8 MG/DL Alkaline Phosphatase 113 U/L Aspartate Amino Transf (AST/SGOT) 40 U/L Alanine Aminotransferase (ALT/SGPT) 19 U/L Total Bilirubin 0.6 MG/DL Sodium Level 134 MEQ/L 137 MEQ/L Potassium Level 4.4 MEQ/L 4.2 MEQ/L Chloride Level 101 MEQ/L 102 MEQ/L Carbon Dioxide Level 26.6 MEQ/L 29.0 MEQ/L Anion Gap 6 MEQ/L 6 MEQ/L Estimat Glomerular Filtration Rate 116 ML/MIN 92 ML/MIN Ferritin 411 NG/ML Human Chorionic Gonadotropin, Quant LESS THAN 1 MIU/ML Microbiology Date/Time Source Procedure Growth Status 09/07/17 05:43 Blood Peripheral Aerobic Blood Culture Pending Received 09/07/17 05:43 Blood Peripheral Anaerobic Blood Culture Pending Received 09/07/17 05:36 Blood Peripheral Aerobic Blood Culture Pending Received 09/07/17 05:36 Blood Peripheral Anaerobic Blood Culture Pending Received Microbiology Date/Time Source Procedure Growth Status 09/04/17 04:25 Blood Peripheral Aerobic Blood Culture - Preliminary NO GROWTH IN 2 DAYS Resulted 09/04/17 04:25 Blood Peripheral Anaerobic Blood Culture - Preliminary NO GROWTH IN 2 DAYS Resulted 09/04/17 04:20 Blood Peripheral Aerobic Blood Culture - Preliminary NO GROWTH IN 2 DAYS Resulted 09/04/17 04:20 Blood Peripheral Anaerobic Blood Culture - Preliminary NO GROWTH IN 2 DAYS Resulted Microbiology Date/Time Source Procedure Growth Status 08/31/17 20:15 Blood Peripheral Aerobic Blood Culture - Final Viridans Streptococcus Grp Complete 08/31/17 20:15 Anaerobic Blood Culture - Final Viridans Streptococcus Grp Complete 08/31/17 20:10 Blood Peripheral Aerobic Blood Culture - Final Viridans Streptococcus Grp Complete 08/31/17 20:10 Anaerobic Blood Culture - Final Viridans Streptococcus Grp Complete 09/02/17 21:00 Stool Stool Stool Occult Blood (DONNY) - Final HEMOCCULT NEGATIVE Complete 08/31/17 22:30 Urine Suprapubic Urine Urine Culture - Final NO GROWTH IN 48 HOURS. Complete IMAGING: Chest X-Ray 09/03/17 0600 Signed Impressions: Service Date/Time: Sunday, September 03, 2017 03:30 - CONCLUSION: 1. Low lung volumes with bibasilar mild airspace disease, likely atelectasis. Luis Leija MD Aorta w/Runoff CTA 09/02/17 0000 Signed Impressions: Service Date/Time: Saturday, September 02, 2017 12:47 - CONCLUSION: Left renal cortical infarction. 5-6 cm length total occlusion of the left superficial femoral artery in the proximal thigh. Nodular parenchymal opacities in the lung bases bilaterally See above discussion. Adalid Dallas MD Renal Ultrasound 09/01/17 0000 Signed Impressions: Service Date/Time: Friday, September 01, 2017 10:53 - CONCLUSION: 1. No evidence of hydronephrosis. 2. Thickening of the urinary bladder wall a 1.1 cm. 3. Prominent splenomegaly. Baldemar Pineda MD Chest X-Ray 09/01/17 0000 Signed Impressions: Service Date/Time: Friday, September 01, 2017 09:36 - CONCLUSION: Right internal jugular central line in place with the tip overlying the SVC. A pneumothorax is not seen. Adalid Haney MD Breast Ultrasound 09/01/17 0000 Signed Impressions: Service Date/Time: Friday, September 01, 2017 10:48 - CONCLUSION: Negative targeted right breast ultrasound examination. Adalid Haney MD Lower Extremity Ultrasound 08/31/17 0000 Signed Impressions: Service Date/Time: Thursday, August 31, 2017 21:22 - CONCLUSION: 1. No sonographic evidence for lower extremity DVT. 2. Incidental note of bilateral inguinal adenopathy with the largest on the right measuring 3.3 cm and the largest on the left measuring 2.6 cm. This finding is nonspecific but is typically reactive in etiology. Luis Leija MD PHYSICAL EXAMINATION GENERAL: No acute distress. HEENT: Head atraumatic. Extraocular movements grossly intact. Pupils reactive to light. No icterus. Oropharynx moist mucosa, no lesions. Neck: Supple without adenopathy. Lungs: Coarse bilateral rhonchi. Mild wheezing at the bases. Heart: 5/6 blowing systolic murmur at the upper right sternal border. Abdomen: Bowel sounds present, soft, obese, nontender. Extremities: Diffuse 2+ edema of the lower extremities. Lesions at Left tibia distally and left foot and great toe are more red and not purpuric as before. Toes 3 and 5 are cyanotic. The leg is tender on palpation. It is warm. No calf tenderness. No nail bed hemorrhages. SKIN: no diffuse rash. Neuro: No gross focal findings. Psychiatric: calm and cooperative. IMPRESSION 1. Sepsis. Strep Viridans. 2. Bacteremia. Strep viridans. 3. History of prostatic aortic valve and so likely recurrent prosthetic valve endocarditis. 4. Left renal cortical and pulmonary and lower extremity septic emboli. 5. Leukocytosis secondary to sepsis from showering of emboli from endocarditis. 6. Acute renal failure. Kidney function improved. Stable. RECOMMENDATIONS 1. Continue Ampicillin intravenous. 2. Continue Gentamicin. now that the kidney function is improved but follow the renal function. 3. Monitor clinical response. 4. Continue to monitor the left leg lesions. Plan on 6 weeks of intravenous antibiotic treatment. I do not think we need to get RACHEL since it will not alter treatment. Edmar Sloan MD Sep 07, 2017 11:18
--- NOTE | 2017-09-07 12:42 | PD.ONC.PN ---
Subjective Subjective Remarks Tmax 101.3 overnight. Patient resting in bed, fatigued. complains of intermittent pain in left leg. otherwise without complaints. Objective Data Date Time Temp Pulse Resp B/P (MAP) Pulse Ox O2 Delivery O2 Flow Rate FiO2 09/07/17 10:00 111 09/07/17 08:00 98.9 114 31 96/62 (73) 95 09/07/17 08:00 94 Nasal Cannula 3.00 09/07/17 08:00 114 09/07/17 06:00 111 09/07/17 04:00 111 09/07/17 04:00 98.7 92 25 104/63 (77) 98 09/07/17 02:00 111 09/07/17 00:16 99.9 117 25 113/70 (84) 98 09/07/17 00:00 101.3 116 25 113/70 (84) 98 09/07/17 00:00 109 09/06/17 22:00 109 09/06/17 20:10 98 21 09/06/17 20:00 97.7 109 25 112/65 (81) 98 09/06/17 20:00 109 09/06/17 18:00 110 09/06/17 16:00 97.7 101 25 119/78 (92) 98 09/06/17 16:00 101 09/06/17 14:00 100 09/07/17 09/07/17 09/07/17 07:00 15:00 23:00 Intake Total 525 ml Output Total 1375 ml Balance -850 ml Result Diagram: 09/07/17 0350 09/07/17 0350 Laboratory Results Laboratory Tests Test 09/06/17 14:00 09/06/17 19:20 09/06/17 23:51 09/07/17 03:50 Activated Partial Thromboplast Time 32.0 SEC 32.2 SEC 58.7 SEC Prothrombin Time 12.3 SEC Prothromb Time International Ratio 1.2 RATIO White Blood Count 13.6 TH/MM3 Red Blood Count 3.22 MIL/MM3 Hemoglobin 7.3 GM/DL Hematocrit 22.6 % Mean Corpuscular Volume 70.1 FL Mean Corpuscular Hemoglobin 22.8 PG Mean Corpuscular Hemoglobin Concent 32.6 % Red Cell Distribution Width 17.6 % Platelet Count 250 TH/MM3 Mean Platelet Volume 8.5 FL Blood Urea Nitrogen 9 MG/DL Creatinine 0.72 MG/DL Random Glucose 141 MG/DL Calcium Level 8.4 MG/DL Phosphorus Level 4.8 MG/DL Magnesium Level 1.8 MG/DL Sodium Level 137 MEQ/L Potassium Level 4.2 MEQ/L Chloride Level 102 MEQ/L Carbon Dioxide Level 29.0 MEQ/L Anion Gap 6 MEQ/L Estimat Glomerular Filtration Rate 92 ML/MIN Test 09/07/17 05:36 Activated Partial Thromboplast Time 53.8 SEC Culture Results Microbiology Date/Time Source Procedure Growth Status 09/07/17 05:43 Blood Peripheral Aerobic Blood Culture Pending Received 09/07/17 05:43 Blood Peripheral Anaerobic Blood Culture Pending Received 09/07/17 05:36 Blood Peripheral Aerobic Blood Culture Pending Received 09/07/17 05:36 Blood Peripheral Anaerobic Blood Culture Pending Received Administered Medications Medications (Trade) Dose Ordered Sig/Jessica Route PRN Reason Start Time Stop Time Status Last Admin Dose Admin Sodium Chloride (NS Flush) 2 ml BID IV FLUSH 09/01/17 09:00 09/07/17 07:53 Acetaminophen (Tylenol) 650 mg Q6H PRN PO fever 08/31/17 22:00 09/06/17 23:41 Temazepam (Restoril) 15 mg HS PRN PO INSOMNIA 08/31/17 22:00 09/06/17 23:04 Chlorhexidine Gluconate (Chlorhexidine 2% Cloth) Taper DAILY@04 TOP 09/01/17 04:00 08/28/18 03:59 09/06/17 20:59 Senna/Docusate Sodium (Armida-Colace) 1 tab BID PO 09/01/17 09:00 09/06/17 20:11 Norepinephrine Bitartrate 4 mg/ Sodium Chloride 250 ml @ 7.5 mls/hr TITRATE PRN IV Blood pressure management 09/01/17 09:15 09/02/17 14:44 Ampicillin Sodium 2000 mg/Sodium Chloride 100 ml @ 400 mls/hr Q6H IV 09/01/17 14:00 09/07/17 07:53 Hydromorphone HCl (Dilaudid Pf Inj) 2 mg Q4H PRN IV PUSH PAIN SCALE 6 TO 10 09/02/17 15:00 09/07/17 11:57 Loperamide HCl (Imodium) 2 mg Q4H PRN PO Diarrhea 09/03/17 16:15 09/05/17 14:32 Gentamicin Sulfate 100 mg/ Sodium Chloride 102.5 ml @ 100 mls/hr Q8H IV 09/03/17 21:00 09/07/17 11:56 Albuterol Sulfate (Albuterol Neb) 2.5 mg Q2HR NEB PRN NEB dyspnea 09/04/17 11:30 09/07/17 02:47 Acetaminophen/ Hydrocodone Bitart (Vanduser 10-325 Mg) 1 tab Q6H PRN PO pain 1-5 09/04/17 11:30 09/07/17 06:22 Famotidine (Pepcid) 20 mg BID PO 09/04/17 21:00 09/07/17 07:52 Magnesium Oxide (Mag-Ox) 400 mg Q12HR PO 09/05/17 21:00 09/07/17 20:59 09/07/17 07:53 Argatroban 250 mg/ Sodium Chloride 252.5 ml @ 3.11 mls/hr TITRATE PRN IV aPTT < 50 09/06/17 19:15 09/06/17 20:14 Objective Remarks GENERAL: Young woman, lying supine in bed, lethargic. SKIN: Warm and dry. HEAD: Normocephalic. EYES: No scleral icterus. No injection or drainage. NECK: Supple, trachea midline. CARDIOVASCULAR: +S1/S2 RESPIRATORY: anterior gustafson with occasional rhonchi. on 3L O2 via NC GASTROINTESTINAL: Abdomen soft, non-tender, nondistended. EXTREMITIES: left leg with diminished pulses. right foot pulse palpable NEUROLOGICAL: awake and alert. normal speech. Assessment/Plan Problem List: (1) arterial blood clot Plan: --on Argatroban (direct thrombin inhibitor) -- no significant family history of thrombotic events to suggest hereditary antithrombin deficiency. suspect the antithrombin deficiency comes from her impaired production from her liver disease. --has chronic active hepatitis C. ++increased consumption from disseminated intravascular coagulation and acute illness, bacterial endocarditis. --Protein losses are also considered. She had mild proteinuria when she first was admitted. --Thrombin inactivates antithrombin. This would abrogate the effect of unfractionated heparin and low molecular weight heparin. Assessment 36y/o female admitted with recurrent endocarditis. hematology consulted for anticoagulation assistance. h/o Recurrent bacterial endocarditis, bacteremia, history of prosthetic aortic valve and subsequent redo, chronic active hepatitis C, intravenous drug use, microcytic anemia, consistent with iron deficiency, left lower extremity arterial event, bacterial endocarditis with viridans streptococcus. HPI (brought forward for continuity of care): history of IV drug abuse and recurrent endocarditis. had a relapse of her activity. has history of pulmonary embolism and infected valves. +significant congestive heart failure and presented to the emergency room on 08/31/2017, with sepsis. is followed by Infectious Disease for her endocarditis. previously received antibiotic therapy for enterococcus faecalis and staph aureus. There is questionable compliance. Her current blood culture from 08/31/2017, shows viridans streptococcus. Two out of two bottles were positive. She is on ampicillin and gentamicin. course is complicated by cold left lower extremity, evaluated by Vascular Surgery. 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 There is satisfactory calf runoff present. For this reason , conservative management with anticoagulation is continued. was placed on unfractionated heparin. Her heparin dose has been titrated from 1000 units/ hour to 2500 units/hour with a PTT remaining subtherapeutic. Her last PTT is 32 seconds from 09/06/2017, at 2 p.m. For this reason, Hematology/Oncology is consulted. Plan 1. continue Argatroban 2. monitor pulses 3. monitor CBC Attending Statement The exam, history, and the medical decision-making described in the above note were completed with the assistance of the mid-level provider. I reviewed and agree with the findings presented. I attest that I had a [id number] encounter with the patient on the same day, and personally performed and documented my assessment and findings in the medical record. Lethargic but arousable. Subjectively feel L leg is better, denies any bleeding on argatroban. Noted PTT higher. AT III activity still pending- of academic nature. Continue argatroban until more stable from infection and sepsis, anticipate we maybe able to ultimately switch to UFH/LMWH. Jennifer Bailey Sep 07, 2017 12:42 Myra Silva MD Sep 07, 2017 18:04
--- NOTE | 2017-09-07 16:30 | HHI.CCPN ---
Subjective Remarks/Hospital Course 36-year-old female that presents to the ED for evaluation of shortness of breath and swelling. 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 Patient initially did not mention to anybody that she was doing drugs but she did tell me that she injected herself about 4 days ago. She uses Dilaudid. She states that she's been having fevers. Patient is somewhat somnolent and hard to assess she doesn't really provide much information. Family members at the bedside and he provides more information about the heart. Per patient she'll he takes 2 medications. Patient asked if she is taking any antibiotics and she said yes but when I ask her what kind is she is taking currently she states that she has not been on antibiotics for some time. Patient apparently does follow with a local fitness coach but she cannot tell me the name of it. She states that she's been having swelling to her legs for the past month. She denies any recent travel or injury. No other medical issues at this time. No allergies to medication. 09/01: remains critical on Dopamine 10 mcg/ min. Appears ill. Limited bedside echo did not show any large vegetation, but exam was limited, tricuspid and aortic valve not well visualized. Also states that had right breast abscess 2 months ago, drained by herself. Now may have abscess vs scar tissue. Injects upper arm and bilateral breasts. US of right breast ordered 09/02: Remains on 3 mcg/min of Levophed. Complaints of severe left lower extremity pain. Erythematous purpuric purple discoloration of the left lower anterior segment left dorsum of the foot with cyanotic nailbeds. Weak DP pulses+ . 2D Echo failed to reveal definite vegetation. Will consider RACHEL 09/03: Continues to be on Levophed 3 mcg/min, remains critical. We are left lower extremity pain but slightly better. Currently on heparin not therapeutic yet. CTA with runoff showed Left renal cortical infarction. 5-6 cm length total occlusion of the left superficial femoral artery in the proximal thigh but good distal opacification. Dr. Palacios recommended IV heparin no surgical intervention at this time. Patient is still at high risk for further embolic episodes. Blood cultures growing strep viridans. Also patient complains about epigastric and left-sided abdominal pain and left-sided chest pain which is more pleuritic. Pain is severe on deep inspiration 09/04: Resting in bed in no acute distress. Dopplerable lower extremity pulses noted. Remains on heparin drip. Vascular surgery continues to follow. 09/05: Resting in bed in mild respiratory distress. Continues to cough. Nonproductive. Left lower extremity leg improved. Reviewed vascular surgeries note. Likely will require long-term medical regulation post hospitalization 09/06: Improve respiratory status today. Pain in left lower extremity much improved. Tolerating diet. Subjective 09/07: Currently on nasal cannula. Switch to Argatroban overnight by hematology. Okayed with vascular surgery. Pain in left lower extremity slowly improving day by day. Objective Vital Signs Date Time Temp Pulse Resp B/P (MAP) Pulse Ox O2 Delivery O2 Flow Rate FiO2 09/07/17 14:00 116 09/07/17 12:00 100.3 30 101/60 (74) 99 09/07/17 08:00 Nasal Cannula 3.00 09/06/17 20:10 21 Intake and Output 09/07/17 09/07/17 09/07/17 07:59 15:59 23:59 Intake Total 525 ml Output Total 1375 ml Balance -850 ml Result Diagram: 09/07/17 0350 09/07/17 0350 Other Results Microbiology Date/Time Source Procedure Growth Status 09/07/17 05:43 Blood Peripheral Aerobic Blood Culture Pending Received 09/07/17 05:43 Blood Peripheral Anaerobic Blood Culture Pending Received 09/02/17 21:00 Stool Stool Stool Occult Blood (DONNY) - Final HEMOCCULT NEGATIVE Complete 08/31/17 22:30 Urine Suprapubic Urine Urine Culture - Final NO GROWTH IN 48 HOURS. Complete Imaging Last Impressions Chest X-Ray 09/06/17 0600 Signed Impressions: Service Date/Time: September 03:05 - CONCLUSION: 1. Stable patchy bilateral lower lung zone airspace disease. 2. No significant interval change. Luis Leija MD Chest CT 09/03/17 0000 Signed Impressions: Service Date/Time: Sunday, September 03, 2017 12:41 - CONCLUSION: 1. There are at least 5 pulmonary nodules present bilaterally with the largest measuring 19 mm. None demonstrate cavitation but it is possible that these represent septic emboli. Suggest followup to assess for change. 2. Splenomegaly with subtle wedge-shaped areas of low-density in the mid spleen which could represent infarcts. 3. Mild cardiomegaly in this patient post aortic valve replacement. Low density of the cardiac blood pool suggests anemia. Adalid Galo MD Aorta w/Runoff CTA 09/02/17 0000 Signed Impressions: Service Date/Time: Saturday, September 02, 2017 12:47 - CONCLUSION: Left renal cortical infarction. 5-6 cm length total occlusion of the left superficial femoral artery in the proximal thigh. Nodular parenchymal opacities in the lung bases bilaterally See above discussion. Adalid Dallas MD Renal Ultrasound 09/01/17 0000 Signed Impressions: Service Date/Time: Friday, September 01, 2017 10:53 - CONCLUSION: 1. No evidence of hydronephrosis. 2. Thickening of the urinary bladder wall a 1.1 cm. 3. Prominent splenomegaly. Baldemar Pineda MD Breast Ultrasound 09/01/17 0000 Signed Impressions: Service Date/Time: Friday, September 01, 2017 10:48 - CONCLUSION: Negative targeted right breast ultrasound examination. Adalid Haney MD Lower Extremity Ultrasound 08/31/17 0000 Signed Impressions: Service Date/Time: Thursday, August 31, 2017 21:22 - CONCLUSION: 1. No sonographic evidence for lower extremity DVT. 2. Incidental note of bilateral inguinal adenopathy with the largest on the right measuring 3.3 cm and the largest on the left measuring 2.6 cm. This finding is nonspecific but is typically reactive in etiology. Luis Leija MD Objective Remarks GENERAL: 36-year-old female resting in bed in no acute distress SKIN: Warm and dry. Patient does appear to have puncture wounds from where she states been injecting recently in her arms, bilateral upper breast. HEAD: Atraumatic. Normocephalic. EYES: Pupils equal and round. No scleral icterus. No injection or drainage. ENT: No nasal bleeding or discharge. Mucous membranes pink and moist. NECK: Trachea midline. No JVD. CHEST: Bilateral upper breast has puncture wounds from injection. Pain to point palpation left upper thorax CARDIOVASCULAR: 2/6 pansystolic murmurat the left lower sternal border. RESPIRATORY: Few fine crackles present bilaterally. No wheezing GASTROINTESTINAL: Abdomen soft, tender to deep palpation. No guarding rigidity. Positive hepatosplenomegaly MUSCULOSKELETAL: 2+ pitting edema to the lower extremities. Erythematous purpuric rash of the left lower extremity anterior campbell and foot, punctate lesion plantar right great toe. Left leg extremely tender below the left knee. Dopplerable DP pulses bilaterally NEUROLOGICAL: Awake and alert. Motor grossly within normal limits. Five out of 5 muscle strength in the arms and legs. Normal speech. Urinary Catheter: No Assessment to: Continue Vascular Central Line Catheter: Yes Assessment to: Continue Date of Insertion: Sep 01, 2017 Line: Central Venous Catheter Side: Right Location: Internal, Jugular A/P Assessment and Plan Neuro/Psych: IVDU -hydromorphone History of THC use - Continue pain control hydrocodone/acetaminophen 10/325 1 tablet every 6 hours as needed pain 1 through 5 with hydromorphone 2 mg IV every 4 hours as needed pain 6-10 (patient has severpain from ischemic leg) - Acetaminophen 650 mg p.o. every 6 hours as needed fever CVS/ID Septic shock Infective endocarditis involving aortic prosthetic valve Multiple septic emboli including pulmonary, splenic and vascular History of fungal and bacterial prosthetic valve endocarditis Strep viridans bacteremia 5-6 cm length total occlusion of the left superficial femoral artery in the proximal thigh - Recurrent aortic prosthetic valve endocarditis -initially placed 2010 with redo 2015. - Now with strep viridans in blood cultures 08/31 - Broad-spectrum antibiotic with ampicillin and gentamicin. 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 Holloway following - Anticoagulation with argatroban gtt at 0.75 mcg/kg/min - Infectious disease Dr. Sloan Norepinephrine to maintain mean arterial pressures greater than equal to 65 - A RACHEL at this point will not change control coordinator - Extensive counselling given about IP Rehab Microbiology 09/04 -blood cultures 2 -pending 08/31 -urine culture -no growth 08/31 -blood cultures 2 -strep viridians Resp: Acute respiratory insufficiency 5 pulmonary nodules likely septic emboli -Nasal cannula to keep oxygen saturation above 92% -Incentives spirometry while awake -As needed albuterol aerosols every 2 hours. Dyspnea - CT thorax revealed 5 bilateral pulmonary lesions/nodules largest which is 19 mm. No cavitation noted but likely septic emboli. GI: Hepatitis C Splenic infarction Hypoalbuminemia - Heart healthy diet -Famotidine for GI prophylaxis -Docusate sodium/senna 1 tablet twice daily for bowel regimen Renal/: Acute on chronic kidney disease Left renal cortical infarction - Acute renal failure secondary to ATN and dehydration - CT imaging revealed left renal cortical infarction - Renal ultrasound-thickening of urinary bladder Endo: Sliding scale insulin if indicated to maintain euglycemia Heme: Microcytic anemia Leukocytosis - Monitor CBC CMP and coags -Does not meet transfusion threshold at this time FEN: Hypomagnesia Replace electrolytes as clinically indicated. 2 g mag sulfate IV 1 now. MSK: History of right breast abscess Elevated BMI - Ultrasound of the left lower extremity negative for DVT - Right breast ultrasound negative for abscess -Weight loss encouraged DVT GI prophylaxis - argatroban gtt - famotidine Level 2 follow-up Francis Dominguez MD Sep 07, 2017 16:30
[2017-09-07] MEDS: MAGNESIUM SULFATE 1 GM PREMIX 100 ML IV SCH ×2 (16:37→17:47)
[2017-09-07] MEDS: ACETAMINOPHEN 325 MG TAB PO PRN (23:57)
[2017-09-08] VITALS (13 sets, daily range): BP systolic 94–109; BP diastolic 61–78; PULSE 107–129; RESP 23–41; TEMP 98.6–102.2; O2SAT 87–99
[2017-09-08] MEDS: AMPICILLIN INJ 2,000 MG in SODIUM CHLORIDE 0.9% INJ 100 ML IV SCH ×4 (02:11→21:30)
[2017-09-08] MEDS: CHLORHEXIDINE GLUCONATE 2 % 1 PACK (2 CLOTHS) TOP SCH (03:09)
[2017-09-08] MEDS: GENTAMICIN INJ 100 MG in SODIUM CHLORIDE 0.9% INJ 100 ML IV SCH ×3 (04:03→21:42)
[2017-09-08] MEDS: HYDROmorphone HCL PF 2 MG/ML VIAL IV PUSH PRN ×4 (04:11→19:50)
[2017-09-08 05:26] LABS: HEMOGLOBIN 7.4 GM/DL (11.6-15.3); MEAN CELL VOLUME 70.3 FL (80.0-100.0); MEAN CORPUSCULAR HEMOGLOBIN 22.7 PG (27.0-34.0); MEAN CORPUSCULAR HGB CONC 32.3 % (32.0-36.0); MEAN PLATELET VOLUME 8.5 FL (7.0-11.0); PLATELET COUNT 272 TH/MM3 (150-450); RED BLOOD COUNT 3.27 MIL/MM3 (4.00-5.30); RED CELL DISTRIBUTION WIDTH 17.9 % (11.6-17.2); WHITE BLOOD COUNT 17.7 TH/MM3 (4.0-11.0)
[2017-09-08 05:34] LABS: INTERNATIONAL NORMALIZED RATIO 2.1 RATIO; PROTHROMBIN TIME - PATIENT 21.3 SEC (9.8-11.6)
[2017-09-08 05:55] LABS: BICARBONATE 28.2 MEQ/L (21.0-32.0); CALCIUM 8.5 MG/DL (8.5-10.1); CREATININE 0.73 MG/DL (0.50-1.00)
[2017-09-08] MEDS: DOCUSATE SODIUM 50 MG/SENNA 8.6 MG TAB PO SCH ×2 (08:18→21:31)
[2017-09-08] MEDS: FAMOTIDINE 20 MG TAB PO SCH ×2 (08:18→21:31)
[2017-09-08] MEDS: SODIUM CHLORIDE 0.9% FLUSH 10 ML FLUSH IV FLUSH SCH ×2 (08:18→21:32)
--- NOTE | 2017-09-08 09:56 | HHI.CCPN ---
Subjective Remarks/Hospital Course 36-year-old female that presents to the ED for evaluation of shortness of breath and swelling. 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 Patient initially did not mention to anybody that she was doing drugs but she did tell me that she injected herself about 4 days ago. She uses Dilaudid. She states that she's been having fevers. Patient is somewhat somnolent and hard to assess she doesn't really provide much information. Family members at the bedside and he provides more information about the heart. Per patient she'll he takes 2 medications. Patient asked if she is taking any antibiotics and she said yes but when I ask her what kind is she is taking currently she states that she has not been on antibiotics for some time. Patient apparently does follow with a local nursery laborer but she cannot tell me the name of it. She states that she's been having swelling to her legs for the past month. She denies any recent travel or injury. No other medical issues at this time. No allergies to medication. 09/01: remains critical on Dopamine 10 mcg/ min. Appears ill. Limited bedside echo did not show any large vegetation, but exam was limited, tricuspid and aortic valve not well visualized. Also states that had right breast abscess 2 months ago, drained by herself. Now may have abscess vs scar tissue. Injects upper arm and bilateral breasts. US of right breast ordered 09/02: Remains on 3 mcg/min of Levophed. Complaints of severe left lower extremity pain. Erythematous purpuric purple discoloration of the left lower anterior segment left dorsum of the foot with cyanotic nailbeds. Weak DP pulses+ . 2D Echo failed to reveal definite vegetation. Will consider RACHEL 09/03: Continues to be on Levophed 3 mcg/min, remains critical. We are left lower extremity pain but slightly better. Currently on heparin not therapeutic yet. CTA with runoff showed Left renal cortical infarction. 5-6 cm length total occlusion of the left superficial femoral artery in the proximal thigh but good distal opacification. Dr. Palacios recommended IV heparin no surgical intervention at this time. Patient is still at high risk for further embolic episodes. Blood cultures growing strep viridans. Also patient complains about epigastric and left-sided abdominal pain and left-sided chest pain which is more pleuritic. Pain is severe on deep inspiration 09/04: Resting in bed in no acute distress. Dopplerable lower extremity pulses noted. Remains on heparin drip. Vascular surgery continues to follow. 09/05: Resting in bed in mild respiratory distress. Continues to cough. Nonproductive. Left lower extremity leg improved. Reviewed vascular surgeries note. Likely will require long-term medical regulation post hospitalization 09/06: Improve respiratory status today. Pain in left lower extremity much improved. Tolerating diet. 09/07: Currently on nasal cannula. Switch to Argatroban overnight by hematology. Okayed with vascular surgery. Pain in left lower extremity slowly improving day by day. Subjective 09/08: Resting in bed in some mild respiratory distress. Complaining of pleuritic chest pain specifically in the right flank region. Worse with deep inspiration. Reproducible with palpation. CT brain/CT pulmonary angiogram ordered. No neurological deficits noted on examination. Objective Vital Signs Date Time Temp Pulse Resp B/P (MAP) Pulse Ox O2 Delivery O2 Flow Rate FiO2 09/08/17 09:45 94 Nasal Cannula 2.00 09/08/17 08:48 18 09/08/17 06:00 108 09/08/17 04:00 98.6 104/63 (77) 09/06/17 20:10 21 Intake and Output 09/08/17 09/08/17 09/09/17 08:00 16:00 00:00 Intake Total 607.5 ml Output Total 700 ml Balance -92.5 ml Result Diagram: 09/08/17 0345 09/08/17 0345 Other Results Microbiology Date/Time Source Procedure Growth Status 09/07/17 05:43 Blood Peripheral Aerobic Blood Culture Pending Received 09/07/17 05:43 Blood Peripheral Anaerobic Blood Culture Pending Received 09/02/17 21:00 Stool Stool Stool Occult Blood (DONNY) - Final HEMOCCULT NEGATIVE Complete 08/31/17 22:30 Urine Suprapubic Urine Urine Culture - Final NO GROWTH IN 48 HOURS. Complete Imaging Last Impressions Chest X-Ray 09/06/17 0600 Signed Impressions: Service Date/Time: September 03:05 - CONCLUSION: 1. Stable patchy bilateral lower lung zone airspace disease. 2. No significant interval change. Luis Bozorgmanesh, MD Chest CT 09/03/17 0000 Signed Impressions: Service Date/Time: Sunday, September 03, 2017 12:41 - CONCLUSION: 1. There are at least 5 pulmonary nodules present bilaterally with the largest measuring 19 mm. None demonstrate cavitation but it is possible that these represent septic emboli. Suggest followup to assess for change. 2. Splenomegaly with subtle wedge-shaped areas of low-density in the mid spleen which could represent infarcts. 3. Mild cardiomegaly in this patient post aortic valve replacement. Low density of the cardiac blood pool suggests anemia. Adalid Galo MD Aorta w/Runoff CTA 09/02/17 0000 Signed Impressions: Service Date/Time: Saturday, September 02, 2017 12:47 - CONCLUSION: Left renal cortical infarction. 5-6 cm length total occlusion of the left superficial femoral artery in the proximal thigh. Nodular parenchymal opacities in the lung bases bilaterally See above discussion. Adalid Dallas MD Renal Ultrasound 09/01/17 0000 Signed Impressions: Service Date/Time: Friday, September 01, 2017 10:53 - CONCLUSION: 1. No evidence of hydronephrosis. 2. Thickening of the urinary bladder wall a 1.1 cm. 3. Prominent splenomegaly. Baldemar Pineda MD Breast Ultrasound 09/01/17 0000 Signed Impressions: Service Date/Time: Friday, September 01, 2017 10:48 - CONCLUSION: Negative targeted right breast ultrasound examination. Adalid Haney MD Lower Extremity Ultrasound 08/31/17 0000 Signed Impressions: Service Date/Time: Thursday, August 31, 2017 21:22 - CONCLUSION: 1. No sonographic evidence for lower extremity DVT. 2. Incidental note of bilateral inguinal adenopathy with the largest on the right measuring 3.3 cm and the largest on the left measuring 2.6 cm. This finding is nonspecific but is typically reactive in etiology. Luis Leija MD Objective Remarks GENERAL: 36-year-old female resting in bed in no acute distress SKIN: Warm and dry. Patient does appear to have puncture wounds from where she states been injecting recently in her arms, bilateral upper breast. HEAD: Atraumatic. Normocephalic. EYES: Pupils equal and round. No scleral icterus. No injection or drainage. ENT: No nasal bleeding or discharge. Mucous membranes pink and moist. NECK: Trachea midline. No JVD. CHEST: Bilateral upper breast has puncture wounds from injection. Pain to point palpation left upper thorax CARDIOVASCULAR: 2/6 pansystolic murmurat the left lower sternal border. RESPIRATORY: Few fine crackles present bilaterally. No wheezing GASTROINTESTINAL: Abdomen soft, tender to deep palpation. No guarding rigidity. Positive hepatosplenomegaly MUSCULOSKELETAL: 2+ pitting edema to the lower extremities. Erythematous purpuric rash of the left lower extremity anterior campbell and foot, punctate lesion plantar right great toe. Left leg extremely tender below the left knee. Dopplerable DP pulses bilaterally NEUROLOGICAL: Awake and alert. Motor grossly within normal limits. Five out of 5 muscle strength in the arms and legs. Normal speech. Urinary Catheter: No Assessment to: Continue Vascular Central Line Catheter: Yes Assessment to: Continue Date of Insertion: Sep 01, 2017 Line: Central Venous Catheter Side: Right Location: Internal, Jugular A/P Assessment and Plan Neuro/Psych: IVDU -hydromorphone History of THC use - Continue pain control hydrocodone/acetaminophen 10/325 1 tablet every 6 hours as needed pain 1 through 5 with hydromorphone 2 mg IV every 4 hours as needed pain 6-10 (patient has severe pain from ischemic leg) - Acetaminophen 650 mg p.o. 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 - Now with strep viridans in blood cultures 08/31 - Broad-spectrum antibiotic with ampicillin and gentamicin. 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 Holloway following - Anticoagulation with argatroban gtt at 0.75 mcg/kg/min - Infectious disease Dr. Sloan - Extensive counselling given about IP Rehab Microbiology 2/27 -blood cultures 2 -no growth 08/31 -urine culture -no growth 08/31 -blood cultures 2 -strep viridians Resp: Acute respiratory insufficiency 5 pulmonary nodules likely septic emboli -Nasal cannula to keep oxygen saturation above 92% currently on 4 L -Incentives spirometry while awake -As needed albuterol aerosols every [address] Dyspnea - CT thorax revealed 5 bilateral pulmonary lesions/nodules largest which is 19 mm. No cavitation noted but likely septic emboli. CT pulmonary angiogram 09/08 GI: Hepatitis C Splenic infarction Hypoalbuminemia - Heart healthy diet -Famotidine for GI prophylaxis -Docusate sodium/senna 1 tablet twice daily for bowel regimen Renal/: Acute on chronic kidney disease Left renal cortical infarction - Acute renal failure secondary to ATN and dehydration - CT imaging revealed left renal cortical infarction - Renal ultrasound-thickening of urinary bladder Endo: Sliding scale insulin if indicated to maintain euglycemia Heme: Microcytic anemia Leukocytosis - Monitor CBC CMP and coags -Does not meet transfusion threshold at this time FEN: Hyponatremia Replace electrolytes as clinically indicated. MSK: History of right breast abscess Elevated BMI - Ultrasound of the left lower extremity negative for DVT - Right breast ultrasound negative for abscess -Weight loss encouraged DVT GI prophylaxis - argatroban gtt - famotidine Level 3 follow-up CT pulmonary angiogram revealed bilateral pulmonary emboli nature unclear. Right lower lobe occlusion. CT brain revealed right parietal lacunar infarct possibly with infarct left centrum semiovale possibly septic emboli. Versus thrombus. MRI brain ordered Stat echocardiogram ordered. This revealed Aortic prosthesis with prolapse and possible vegetation. The estimated pulmonary arterial pressure is 65.7 mmHg. Tricuspid valve prosthesis Mobile vegetation seen on the tricuspid valve. 2x4 cm. Discussed with infectious disease. Recommended vancomycin and possible RACHEL early next week Discussed with Dr. Knight. Patient is currently on Therapeutic argatroban. Agreed with recommendation of follow-up results of stat echocardiogram. Francis Dominguez MD Sep 08, 2017 09:56
[2017-09-08] MEDS: ACETAMINOPHEN/HYDROcodone 325 MG/10 MG TAB PO PRN ×2 (10:08→21:31)
[2017-09-08] MEDS ORDERED: IOHEXOL 350 MG/ML 10 ML VIAL (for RAD DIAG) IVCONTRAST ONE (10:29)
--- NOTE | 2017-09-08 10:32 | RADRPT ---
EXAM DATE/TIME: 09/08/2017 10:22 [facility] COMPARISON: CT BRAIN W/O CONTRAST, February 26, 2017, 19:47. INDICATIONS : Altered mental status. RADIATION DOSE: 48.19 CTDIvol (mGy) MEDICAL HISTORY : Cardiovascular disease. Hepatitis C. Endocarditis. SURGICAL HISTORY : None. ENCOUNTER: Initial ACUITY: 1 day PAIN SCALE: 0/10 LOCATION: Bilateral cranial TECHNIQUE: Multiple contiguous axial images were obtained of the head. Using automated exposure control and adj ustment of the mA and/or kV according to patient size, radiation dose was kept as low as reasonably a chievable to obtain optimal diagnostic quality images. DICOM format image data is available electro nically for review and comparison. FINDINGS: There is a focal area of decreased density involving the cortex and immediate subcortical white matte r involving the right parietal lobe near the vertex. This is a new finding from the prior exam. A sma ll chronic lacunar infarction is seen involving the left centrum semiovale. This is a new finding fro m the prior study. The remaining brain parenchyma shows normal attenuation. No hemorrhage observe. Ve ntricles are normal in size. Calvarium is intact. Paranasal sinuses and mastoid air cells are clear. CONCLUSION: 1. Focal area of decreased density involving the right parietal lobe. As a new finding from the prior exam. This could relate to a small infarct. MRI of the brain with gadolinium suggested to further ev aluate. 2. Small lacunar infarction involving the left centrum semiovale. Ananth Ponce Jr., MD on September 08, 2017 at 10:28 Board Certified Radiologist. This report was verified electronically.
--- NOTE | 2017-09-08 10:45 | RADRPT ---
EXAM DATE/TIME: 09/08/2017 10:28 [facility] COMPARISON: No previous studies available for comparison. INDICATIONS : Shortness of breath, history of septic emboli. IV CONTRAST: 74 cc Omnipaque 350 (iohexol) IV RADIATION DOSE: 22.87 CTDIvol (mGy) MEDICAL HISTORY : Cardiovascular disease. Congestive heart failure. Hepatitis C.Endocarditits. SURGICAL HISTORY : None. ENCOUNTER: Initial ACUITY: 1 day PAIN SCALE: 0/10 LOCATION: Bilateral chest TECHNIQUE: Volumetric scanning of the chest was performed using a pulmonary embolism protocol MIP images were re constructed. Using automated exposure control and adjustment of the mA and/or kV according to patien t size, radiation dose was kept as low as reasonably achievable to obtain optimal diagnostic quality images. DICOM format image data is available electronically for review and comparison. Follow-up recommendations for detected pulmonary nodules are based at a minimum on nodule size and pa tient risk factors according to Fleischner Society Guidelines. FINDINGS: PULMONARY ARTERIES: There are extensive pulmonary filling defects in both lower lobe pulmonary arteries with near complet e cut off of the right lower lobe pulmonary artery consistent with pulmonary emboli. LUNGS: There is a nodule infiltrates in the right lung base and a few small pulmonology right upper lobe.. PLEURAE: There is a small right pleural effusion.. MEDIASTINUM: There is extensive adenopathy throughout the mediastinum and the hilum.. MUSCULOSKELETAL: Within normal limits for patient age. MISCELLANEOUS: The visualized upper abdominal organs demonstrate no acute abnormality. The spleen is quite enlarged CONCLUSION: There extensive pulmonary emboli bilaterally. There is near complete cut off of the right lower lobe pulmonary artery. Prominent filling defects on the left as well. These findings were relayed to Dr. Marysol gilmore immediately at the completion of the study. Scattered pulmonary infiltrates, small pleural effusion and extensive mediastinal lymphadenopathy as described above. Karsten Crowder MD on September 08, 2017 at 10:41 Board Certified Radiologist. This report was verified electronically.
[2017-09-08] MEDS ORDERED: HYDROmorphone HCL PF 2 MG/ML VIAL IV PUSH ONE (11:15)
--- NOTE | 2017-09-08 14:26 | PD.ONC.PN ---
Subjective Subjective Remarks Tmax 102.1 overnight Pt has just returned from CT scan- reports she has had increased SOB since last night No bleeding on the Argatroban Objective Data Date Time Temp Pulse Resp B/P (MAP) Pulse Ox O2 Delivery O2 Flow Rate FiO2 09/08/17 14:00 108 09/08/17 12:27 22 09/08/17 12:00 114 09/08/17 12:00 123 09/08/17 12:00 99.6 114 23 96/61 (73) 96 09/08/17 11:58 22 09/08/17 10:00 123 09/08/17 09:45 94 Nasal Cannula 2.00 09/08/17 08:48 18 09/08/17 08:00 126 09/08/17 08:00 99.5 126 41 100/68 (79) 98 09/08/17 06:00 108 09/08/17 04:00 98.6 107 26 104/63 (77) 98 09/08/17 04:00 107 09/08/17 02:00 118 09/08/17 00:57 28 09/08/17 00:00 102.1 128 29 94/64 (74) 95 09/08/17 00:00 128 09/07/17 22:00 127 09/07/17 20:27 95 Nasal Cannula 3.00 09/07/17 20:00 116 09/07/17 20:00 99.4 116 30 97/62 (74) 100 09/07/17 18:00 109 09/07/17 17:46 180 09/07/17 16:00 99.5 115 18 98/69 (79) 94 09/07/17 16:00 115 09/08/17 09/08/17 09/08/17 07:00 15:00 23:00 Intake Total 607.5 ml Output Total 700 ml Balance -92.5 ml Result Diagram: 09/08/17 0345 09/08/17 0345 Laboratory Results Laboratory Tests Test 09/08/17 03:45 White Blood Count 17.7 TH/MM3 Red Blood Count 3.27 MIL/MM3 Hemoglobin 7.4 GM/DL Hematocrit 23.0 % Mean Corpuscular Volume 70.3 FL Mean Corpuscular Hemoglobin 22.7 PG Mean Corpuscular Hemoglobin Concent 32.3 % Red Cell Distribution Width 17.9 % Platelet Count 272 TH/MM3 Mean Platelet Volume 8.5 FL Prothrombin Time 21.3 SEC Prothromb Time International Ratio 2.1 RATIO Activated Partial Thromboplast Time 60.2 SEC Blood Urea Nitrogen 10 MG/DL Creatinine 0.73 MG/DL Random Glucose 113 MG/DL Calcium Level 8.5 MG/DL Sodium Level 135 MEQ/L Potassium Level 4.5 MEQ/L Chloride Level 100 MEQ/L Carbon Dioxide Level 28.2 MEQ/L Anion Gap 7 MEQ/L Estimat Glomerular Filtration Rate 91 ML/MIN Culture Results Microbiology Date/Time Source Procedure Growth Status 09/07/17 05:43 Blood Peripheral Aerobic Blood Culture - Preliminary NO GROWTH IN 1 DAY Resulted 09/07/17 05:43 Blood Peripheral Anaerobic Blood Culture - Preliminary NO GROWTH IN 1 DAY Resulted 09/07/17 05:36 Blood Peripheral Aerobic Blood Culture - Preliminary NO GROWTH IN 1 DAY Resulted 09/07/17 05:36 Blood Peripheral Anaerobic Blood Culture - Preliminary NO GROWTH IN 1 DAY Resulted Imaging Studies Last [address] 09/08/17 0000 Signed Impressions: Service Date/Time: Friday, September 08, 2017 10:22 - CONCLUSION: 1. Focal area of decreased density involving the right parietal lobe. As a new finding from the prior exam. This could relate to a small infarct. MRI of the brain with gadolinium suggested to further evaluate. 2. Small lacunar infarction involving the left centrum semiovale. Ananth Ponce Jr., MD CT Angiography 09/08/17 0000 Signed Impressions: Service Date/Time: Friday, September 08, 2017 10:28 - CONCLUSION: There extensive pulmonary emboli bilaterally. There is near complete cut off of the right lower lobe pulmonary artery. Prominent filling defects on the left as well. These findings were relayed to Dr. Dominguez immediately at the completion of the study. Scattered pulmonary infiltrates, small pleural effusion and extensive mediastinal lymphadenopathy as described above. Karsten Crowder MD Administered Medications Medications (Trade) Dose Ordered Sig/Jessica Route PRN Reason Start Time Stop Time Status Last Admin Dose Admin Sodium Chloride (NS Flush) 2 ml BID IV FLUSH 09/01/17 09:00 09/08/17 08:18 Acetaminophen (Tylenol) 650 mg Q6H PRN PO fever 08/31/17 22:00 09/07/17 23:57 Temazepam (Restoril) 15 mg HS PRN PO INSOMNIA 2/23/18 22:00 09/06/17 23:04 Chlorhexidine Gluconate (Chlorhexidine 2% Cloth) Taper DAILY@04 TOP 09/01/17 04:00 08/28/18 03:59 09/06/17 20:59 Senna/Docusate Sodium (Armida-Colace) 1 tab BID PO 09/01/17 09:00 09/06/17 20:11 Ampicillin Sodium 2000 mg/Sodium Chloride 100 ml @ 400 mls/hr Q6H IV 09/01/17 14:00 09/08/17 13:38 Hydromorphone HCl (Dilaudid Pf Inj) 2 mg Q4H PRN IV PUSH PAIN SCALE 6 TO 10 09/02/17 15:00 09/08/17 08:18 Loperamide HCl (Imodium) 2 mg Q4H PRN PO Diarrhea 09/03/17 16:15 09/05/17 14:32 Gentamicin Sulfate 100 mg/ Sodium Chloride 102.5 ml @ 100 mls/hr Q8H IV 09/03/17 21:00 09/08/17 11:57 Albuterol Sulfate (Albuterol Neb) 2.5 mg Q2HR NEB PRN NEB dyspnea 09/04/17 11:30 09/07/17 02:47 Acetaminophen/ Hydrocodone Bitart ([place] 10-325 Mg) 1 tab Q6H PRN PO pain 1-5 09/04/17 11:30 09/08/17 10:08 Famotidine (Pepcid) 20 mg BID PO 09/04/17 21:00 09/08/17 08:18 Argatroban 250 mg/ Sodium Chloride 252.5 ml @ 3.11 mls/hr TITRATE PRN IV aPTT < 50 09/06/17 19:15 09/06/17 20:14 Objective Remarks GENERAL: Overweight younger female, resting in bed on nasal cannula who is obviously SOB. SKIN: Warm and dry. HEAD: Normocephalic. EYES: No scleral icterus. No injection or drainage. NECK: No JVD or lymphadenopathy. CARDIOVASCULAR: Tachycardia RESPIRATORY: Coarse lung sounds GASTROINTESTINAL: Abdomen soft, non-tender, nondistended. EXTREMITIES: Cyanosis to LLE MUSCULOSKELETAL: Adequate muscle tone. NEUROLOGICAL: No obvious focal deficit. Awake, alert, and oriented x3. Assessment/Plan Problem List: (1) arterial blood clot Plan: --on Argatroban (direct thrombin inhibitor) -- no significant family history of thrombotic events to suggest hereditary antithrombin deficiency. suspect the antithrombin deficiency comes from her impaired production from her liver disease. --has chronic active hepatitis C. ++increased consumption from disseminated intravascular coagulation and acute illness, bacterial endocarditis. --Protein losses are also considered. She had mild proteinuria when she first was admitted. --Thrombin inactivates antithrombin. This would abrogate the effect of unfractionated heparin and low molecular weight heparin. (2) Acute septic pulmonary embolism ICD Codes: I26.90 - Septic pulmonary embolism without acute cor pulmonale Plan: -- Echo ordered -- Continue argatroban gtt for now Assessment 36y/o female admitted with recurrent endocarditis. hematology consulted for anticoagulation assistance. h/o Recurrent bacterial endocarditis, bacteremia, history of prosthetic aortic valve and subsequent redo, chronic active hepatitis C, intravenous drug use, microcytic anemia, consistent with iron deficiency, left lower extremity arterial event, bacterial endocarditis with viridans streptococcus. HPI (brought forward for continuity of care): history of IV drug abuse and recurrent endocarditis. had a relapse of her activity. has history of pulmonary embolism and infected valves. +significant congestive heart failure and presented to the emergency room on 08/31/2017, with sepsis. is followed by Infectious Disease for her endocarditis. previously received antibiotic therapy for enterococcus faecalis and staph aureus. There is questionable compliance. Her current blood culture from 08/31/2017, shows viridans streptococcus. Two out of two bottles were positive. She is on ampicillin and gentamicin. course is complicated by cold left lower extremity, evaluated by Vascular Surgery. 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 There is satisfactory calf runoff present. For this reason , conservative management with anticoagulation is continued. was placed on unfractionated heparin. Her heparin dose has been titrated from 1000 units/ hour to 2500 units/hour with a PTT remaining subtherapeutic. Her last PTT is 32 seconds from 09/06/2017, at 2 p.m. For this reason, Hematology/Oncology is consulted. Plan 1. Await results of Echocardiogram 2. Continue argatroban for now. 3. Monitor CBC, coags Cyndi Carranza Sep 08, 2017 14:26
--- NOTE | 2017-09-08 14:56 | ECHRPT ---
Indication: EF assesment of CHF CONCLUSIONS The left ventricular systolic function is low normal with an estimated ejection fraction in the rang e of 50- 55%. Wall thickness is measured at the upper limits of normal. Normal left ventricular size. There is severe tricuspid regurgitation. Aortic prosthesis with prolapse and possible vegetation. The estimated pulmonary arterial pressure is 65.7 mmHg. Tricuspid valve prosthesis Mobile vegetation seen on the tricuspid valve. 2x4 cm There is a small pericardial effusion present. BP: / HR: 100 Rhythm: Sinus MEASUREMENTS (Male / Female) Normal Values Technical Quality:Good 2D ECHO LV Diastolic Diameter PLAX 5.1 cm 4.2 - 5.9 / 3.9 - 5.3 cm LV Systolic Diameter PLAX 4.0 cm IVS Diastolic Thickness 1.2 cm 0.6 - 1.0 / 0.6 - 0.9 cm LVPW Diastolic Thickness 1.2 cm 0.6 - 1.0 / 0.6 - 0.9 cm LV Relative Wall Thickness 0.5 LVOT Diameter 2.0 cm DOPPLER AV Peak Velocity 460.0 cm/s AV Peak Gradient 84.6 mmHg AV Mean Gradient 64.0 mmHg AV Velocity Time Integral 81.8 cm TR Peak Velocity 373.0 cm/s TR Peak Gradient 55.7 mmHg Right Atrial Pressure 10.0 mmHg Pulmonary Artery Systolic Pressu 65.7 mmHg Right Ventricular Systolic Press 65.7 mmHg FINDINGS LEFT VENTRICLE The left ventricular systolic function is low normal with an estimated ejection fraction in the rang e of 50- 55%. Wall thickness is measured at the upper limits of normal. Normal left ventricular size. RIGHT VENTRICLE Normal right ventricular size and systolic function. LEFT ATRIUM The left atrial size is normal. RIGHT ATRIUM The right atrial size is normal. ATRIAL SEPTUM Normal atrial septal thickness without atrial level shunting by limited color doppler interrogation. AORTA The aortic root and proximal ascending aorta are normal in size on limited imaging. MITRAL VALVE Structurally normal mitral valve. No mitral valve stenosis or regurgitation. AORTIC VALVE Appears prosthetic. There is some prolapse into the LV which isunusual for a prosthesis and thus concerning for vegetation also TRICUSPID VALVE Appears prosthetic There is severe tricuspid regurgitation. The estimated pulmonary arterial pressure is 65.7 mmHg. Mobile vegetation seen on the tricuspid valve. 2x4cm PULMONARY VALVE The pulmonary valve is not well visualized. VESSELS The inferior vena cava is normal in size. PERICARDIUM There is a small pericardial effusion present. Frances Arizmendi MD, FACC (Electronically Signed) Final Date:08 September 2017 14:55
[2017-09-08] MEDS ORDERED: Vancomycin Consult Pharmacy 1 EA OTHER SCH (16:45)
--- NOTE | 2017-09-08 17:11 | HHI.IDPN ---
Note Infectious Disease Note Id xcover for is a 36 y/o CF, prosthetic aortic valve replacement in 2010 and then redo aortic valve replacement in December 2015, and prior h/o endocarditis who was on Doxy oral suppression. The patient developed shortness of breath, fever and chills, and presented to the emergency department. The patient is noted to be actively using IV drugs. She has history of significant CHF from prior valvular heart disease related to endocarditis. She states that she started feeling short of breath about a week ago and the shortness of breath worsened. After she completed IV antibiotics in April she was put on doxycycline prophylaxis. She reports that she has not been taking the doxycycline. ID now following for Strep Viridans PV endocarditis. Patient complained of chest pain overnight. CT chest repeated and significantly worse with increased septic emboli multiple on both sides. Tmax 102 F Has occasional coughing spells. No sputum production. Shortness of breath with exertion. Continues to have pain in the left leg and left foot. Awake and alert. PAST MEDICAL HISTORY: Hepatitis C. IV drug use. prosthetic aortic valve replacement in 2010 and then redo aortic valve replacement in December 2015 MEDICATIONS: 1. Gentamicin. 2. Ampicillin. Current Medications Medications (Trade) Dose Ordered Sig/Jessica Route Start Time Stop Time Status Last Admin (NS Flush) 2 ml UNSCH PRN IV FLUSH 08/31/17 22:00 (NS Flush) 2 ml BID IV FLUSH 09/01/17 09:00 09/08/17 08:18 (Tylenol) 650 mg Q6H PRN PO 08/31/17 22:00 09/07/17 23:57 (Zofran Inj) 4 mg Q6H PRN IV PUSH 08/31/17 22:00 (Restoril) 15 mg HS PRN PO 08/31/17 22:00 09/06/17 23:04 Miscellaneous Information 1 Q361D XX 08/31/17 22:00 (Chlorhexidine 2% Cloth) Taper DAILY@04 TOP 09/01/17 04:00 08/28/18 03:59 09/06/17 20:59 (Chlorhexidine 2% Cloth) 3 pack UNSCH PRN TOP 08/31/17 22:00 (Armida-Colace) 1 tab BID PO 09/01/17 09:00 09/06/17 20:11 (Milk Of Magnesia Liq) 30 ml Q12H PRN PO 08/31/17 22:00 (Senokot) 17.2 mg Q12H PRN PO 08/31/17 22:00 (Dulcolax Supp) 10 mg DAILY PRN RECTAL 08/31/17 22:00 (Lactulose Liq) 30 ml DAILY PRN PO 08/31/17 22:00 Ampicillin Sodium 2000 mg/Sodium Chloride 100 ml @ 400 mls/hr Q6H IV 09/01/17 14:00 09/08/17 13:38 (Dilaudid Pf Inj) 2 mg Q4H PRN IV PUSH 09/02/17 15:00 09/08/17 14:30 (Imodium) 2 mg Q4H PRN PO 09/03/17 16:15 09/05/17 14:32 Gentamicin Sulfate 100 mg/ Sodium Chloride 102.5 ml @ 100 mls/hr Q8H IV 09/03/17 21:00 09/08/17 11:57 (Albuterol Neb) 2.5 mg Q2HR NEB PRN NEB 09/04/17 11:30 09/07/17 02:47 (Bethany 10-325 Mg) 1 tab Q6H PRN PO 09/04/17 11:30 09/08/17 10:08 (Pepcid) 20 mg BID PO 09/04/17 21:00 09/08/17 08:18 Argatroban 250 mg/ Sodium Chloride 252.5 ml @ 3.11 mls/hr TITRATE PRN IV 09/06/17 19:15 09/06/17 20:14 Pharmacy Profile Note 0 ml @ 0 mls/hr UNSCH OTHER 09/08/17 16:45 Vancomycin HCl 2500 mg/Sodium Chloride 525 ml @ 250 mls/hr ONCE ONCE IV 09/08/17 18:00 09/08/17 20:05 SOCIAL HISTORY: Positive occasional alcohol. No tobacco. IV drug use in the form of Dilaudid, oxycodone. The patient also uses marijuana. OBJECTIVE: Vital Signs Date Time Temp Pulse Resp B/P (MAP) Pulse Ox O2 Delivery O2 Flow Rate FiO2 09/08/17 16:00 110 09/08/17 15:00 22 09/08/17 14:00 108 09/08/17 12:27 22 09/08/17 12:00 114 09/08/17 12:00 123 09/08/17 12:00 99.6 114 23 96/61 (73) 96 09/08/17 11:58 22 09/08/17 10:00 123 09/08/17 09:45 94 Nasal Cannula 2.00 09/08/17 08:00 126 09/08/17 08:00 99.5 126 41 100/68 (79) 98 09/08/17 06:00 108 09/08/17 04:00 98.6 107 26 104/63 (77) 98 09/08/17 04:00 107 09/08/17 02:00 118 09/08/17 00:57 28 09/08/17 00:00 102.1 128 29 94/64 (74) 95 09/08/17 00:00 128 09/07/17 22:00 127 09/07/17 20:27 95 Nasal Cannula 3.00 09/07/17 20:00 116 09/07/17 20:00 99.4 116 30 97/62 (74) 100 09/07/17 18:00 109 09/07/17 17:46 180 Laboratory Tests Test 09/07/17 03:50 09/08/17 03:45 White Blood Count 13.6 TH/MM3 17.7 TH/MM3 Red Blood Count 3.22 MIL/MM3 3.27 MIL/MM3 Hemoglobin 7.3 GM/DL 7.4 GM/DL Hematocrit 22.6 % 23.0 % Mean Corpuscular Volume 70.1 FL 70.3 FL Mean Corpuscular Hemoglobin 22.8 PG 22.7 PG Mean Corpuscular Hemoglobin Concent 32.6 % 32.3 % Red Cell Distribution Width 17.6 % 17.9 % Platelet Count 250 TH/MM3 272 TH/MM3 Mean Platelet Volume 8.5 FL 8.5 FL Laboratory Tests Test 09/07/17 03:50 09/08/17 03:45 Blood Urea Nitrogen 9 MG/DL 10 MG/DL Creatinine 0.72 MG/DL 0.73 MG/DL Random Glucose 141 MG/DL 113 MG/DL Calcium Level 8.4 MG/DL 8.5 MG/DL Phosphorus Level 4.8 MG/DL Magnesium Level 1.8 MG/DL Sodium Level 137 MEQ/L 135 MEQ/L Potassium Level 4.2 MEQ/L 4.5 MEQ/L Chloride Level 102 MEQ/L 100 MEQ/L Carbon Dioxide Level 29.0 MEQ/L 28.2 MEQ/L Anion Gap 6 MEQ/L 7 MEQ/L Estimat Glomerular Filtration Rate 92 ML/MIN 91 ML/MIN Microbiology Date/Time Source Procedure Growth Status 09/07/17 05:43 Blood Peripheral Aerobic Blood Culture - Preliminary NO GROWTH IN 1 DAY Resulted 09/07/17 05:43 Blood Peripheral Anaerobic Blood Culture - Preliminary NO GROWTH IN 1 DAY Resulted 09/02/17 21:00 Stool Stool Stool Occult Blood (DONNY) - Final HEMOCCULT NEGATIVE Complete 08/31/17 22:30 Urine Suprapubic Urine Urine Culture - Final NO GROWTH IN 48 HOURS. Complete Date/Time Source Procedure Growth Status 09/07/17 05:43 Blood Peripheral Aerobic Blood Culture - Preliminary NO GROWTH IN 1 DAY Resulted 09/07/17 05:43 Blood Peripheral Anaerobic Blood Culture - Preliminary NO GROWTH IN 1 DAY Resulted 09/07/17 05:36 Blood Peripheral Aerobic Blood Culture - Preliminary NO GROWTH IN 1 DAY Resulted 09/07/17 05:36 Blood Peripheral Anaerobic Blood Culture - Preliminary NO GROWTH IN 1 DAY Resulted Microbiology Date/Time Source Procedure Growth Status 09/07/17 05:43 Blood Peripheral Aerobic Blood Culture Pending Received 09/07/17 05:43 Blood Peripheral Anaerobic Blood Culture Pending Received 09/07/17 05:36 Blood Peripheral Aerobic Blood Culture Pending Received 09/07/17 05:36 Blood Peripheral Anaerobic Blood Culture Pending Received Microbiology Date/Time Source Procedure Growth Status 09/04/17 04:25 Blood Peripheral Aerobic Blood Culture - Preliminary NO GROWTH IN 2 DAYS Resulted 09/04/17 04:25 Blood Peripheral Anaerobic Blood Culture - Preliminary NO GROWTH IN 2 DAYS Resulted 09/04/17 04:20 Blood Peripheral Aerobic Blood Culture - Preliminary NO GROWTH IN 2 DAYS Resulted 09/04/17 04:20 Blood Peripheral Anaerobic Blood Culture - Preliminary NO GROWTH IN 2 DAYS Resulted Microbiology Date/Time Source Procedure Growth Status 08/31/17 20:15 Blood Peripheral Aerobic Blood Culture - Final Viridans Streptococcus Grp Complete 08/31/17 20:15 Anaerobic Blood Culture - Final Viridans Streptococcus Grp Complete 08/31/17 20:10 Blood Peripheral Aerobic Blood Culture - Final Viridans Streptococcus Grp Complete 08/31/17 20:10 Anaerobic Blood Culture - Final Viridans Streptococcus Grp Complete 09/02/17 21:00 Stool Stool Stool Occult Blood (DONNY) - Final HEMOCCULT NEGATIVE Complete 08/31/17 22:30 Urine Suprapubic Urine Urine Culture - Final NO GROWTH IN 48 HOURS. Complete IMAGING: Last Impressions Head CT 09/08/17 0000 Signed Impressions: Service Date/Time: Friday, September 08, 2017 10:22 - CONCLUSION: 1. Focal area of decreased density involving the right parietal lobe. As a new finding from the prior exam. This could relate to a small infarct. MRI of the brain with gadolinium suggested to further evaluate. 2. Small lacunar infarction involving the left centrum semiovale. Ananth Ponce Jr., MD CT Angiography 09/08/17 0000 Signed Impressions: Service Date/Time: Friday, September 08, 2017 10:28 - CONCLUSION: There extensive pulmonary emboli bilaterally. There is near complete cut off of the right lower lobe pulmonary artery. Prominent filling defects on the left as well. These findings were relayed to Dr. Dominguez immediately at the completion of the study. Scattered pulmonary infiltrates, small pleural effusion and extensive mediastinal lymphadenopathy as described above. Karsten Crowder MD Chest X-Ray 09/06/17 0600 Signed Impressions: Service Date/Time: September 03:05 - CONCLUSION: 1. Stable patchy bilateral lower lung zone airspace disease. 2. No significant interval change. Luis Leija MD Chest CT 09/03/17 0000 Signed Impressions: Service Date/Time: Sunday, September 03, 2017 12:41 - CONCLUSION: 1. There are at least 5 pulmonary nodules present bilaterally with the largest measuring 19 mm. None demonstrate cavitation but it is possible that these represent septic emboli. Suggest followup to assess for change. 2. Splenomegaly with subtle wedge-shaped areas of low-density in the mid spleen which could represent infarcts. 3. Mild cardiomegaly in this patient post aortic valve replacement. Low density of the cardiac blood pool suggests anemia. Adalid Galo MD Aorta w/Runoff CTA 09/02/17 0000 Signed Impressions: Service Date/Time: Saturday, September 02, 2017 12:47 - CONCLUSION: Left renal cortical infarction. 5-6 cm length total occlusion of the left superficial femoral artery in the proximal thigh. Nodular parenchymal opacities in the lung bases bilaterally See above discussion. Adalid Dallas MD Renal Ultrasound 09/01/17 0000 Signed Impressions: Service Date/Time: Friday, September 01, 2017 10:53 - CONCLUSION: 1. No evidence of hydronephrosis. 2. Thickening of the urinary bladder wall a 1.1 cm. 3. Prominent splenomegaly. Baldemar Pineda MD Breast Ultrasound 09/01/17 0000 Signed Impressions: Service Date/Time: Friday, September 01, 2017 10:48 - CONCLUSION: Negative targeted right breast ultrasound examination. Adalid Haney MD Lower Extremity Ultrasound 08/31/17 0000 Signed Impressions: Service Date/Time: Thursday, August 31, 2017 21:22 - CONCLUSION: 1. No sonographic evidence for lower extremity DVT. 2. Incidental note of bilateral inguinal adenopathy with the largest on the right measuring 3.3 cm and the largest on the left measuring 2.6 cm. This finding is nonspecific but is typically reactive in etiology. Luis Leija MD PHYSICAL EXAMINATION GENERAL: No acute distress. HEENT: Head atraumatic. Extraocular movements grossly intact. Pupils reactive to light. No icterus. Oropharynx moist mucosa, no lesions. Neck: Supple without adenopathy. Lungs: Coarse bilateral rhonchi. Mild wheezing at the bases. Heart: 5/6 blowing systolic murmur at the upper right sternal border. Abdomen: Bowel sounds present, soft, obese, nontender. Extremities: Diffuse 2+ edema of the lower extremities. Lesions at Left tibia distally and left foot and great toe are more red and not purpuric as before. Toes 3 and 5 are cyanotic. The leg is tender on palpation. It is warm. No calf tenderness. No nail bed hemorrhages. SKIN: no diffuse rash. Neuro: No gross focal findings. Psychiatric: calm and cooperative. IMPRESSION Sepsis. Strep Viridans. Bacteremia: Strep viridans. Septic pulmonary emboli multiple. TV valve endocarditis. History of prosthetic aortic valve and so likely recurrent prosthetic valve endocarditis. Left renal cortical and pulmonary and lower extremity septic emboli. Leukocytosis secondary to sepsis from showering of emboli from endocarditis. Acute renal failure. Kidney function improved. Stable. RECOMMENDATIONS Continue Ampicillin intravenous. Continue Gentamicin. now that the kidney function is improved but follow the renal function. Repeat Blood cultures (1 PIV and 1 RIJ CL) Start Vanco IV (target 15-20) Severe TR on repeat ECHO with new vegetations and increased pulm emboli. Recommend RACHEL to look for size, number of lesions and if any perivalvular abscess given severe TR. If change in mentation consider MRI brain and LP. If abdominal discomfort persists and leucocytosis persistent or worsening consider CT Abd/pelvis with contrast. If any vision change consider MRI brain and opthalm consult to r.o endopthalmitis. herman Lawton Critical thinking and decision making. Linda Toth MD Sep 08, 2017 17:11
[2017-09-08] MEDS ORDERED: VANCOMYCIN INJ 2,500 MG in SODIUM CHLORID 0.9% 500 ML INJ 500 ML IV ONE (18:00)
[2017-09-08] MEDS ORDERED: HYDROmorphone HCL PF 2 MG/ML VIAL IV ONE (18:30)
[2017-09-08] MEDS ORDERED: GADODIAMIDE PF 287 MG/ML 20 ML VIAL (for RAD MRI) IVCONTRAST ONE (18:30)
[2017-09-08] MEDS: ARGATROBAN INJ 250 MG in SODIUM CHLOR 0.9% 250 ML INJ 250 ML IV PRN (18:58)
[2017-09-08] MEDS: ACETAMINOPHEN 325 MG TAB PO PRN (21:31)
[2017-09-09] VITALS (15 sets, daily range): BP systolic 86–97; BP diastolic 62–68; PULSE 95–124; RESP 29–33; TEMP 97.6–99.8; O2SAT 88–100
[2017-09-09] MEDS: TEMAZEPAM 15 MG CAP PO PRN (00:27)
[2017-09-09] MEDS: HYDROmorphone HCL PF 2 MG/ML VIAL IV PUSH PRN ×5 (00:27→20:26)
[2017-09-09] MEDS: AMPICILLIN INJ 2,000 MG in SODIUM CHLORIDE 0.9% INJ 100 ML IV SCH ×4 (01:49→20:25)
[2017-09-09] MEDS: VANCOMYCIN 1,500 MG/NS 500 ML IV SCH ×4 (01:50→09:14)
[2017-09-09] MEDS: CHLORHEXIDINE GLUCONATE 2 % 1 PACK (2 CLOTHS) TOP SCH (01:50)
[2017-09-09] MEDS: GENTAMICIN INJ 100 MG in SODIUM CHLORIDE 0.9% INJ 100 ML IV SCH ×3 (04:58→20:25)
[2017-09-09 05:34] LABS: AUTOMATED NEUTROPHIL # 17.8 TH/MM3 (1.8-7.7); BASOPHIL # 0.1 TH/MM3 (0-0.2); BASOPHIL % 0.5 % (0.0-2.0); EOSINOPHIL # 0.1 TH/MM3 (0-0.4); EOSINOPHIL % 0.4 % (0.0-4.0); HEMOGLOBIN 7.4 GM/DL (11.6-15.3); LYMPH % 5.7 % (9.0-44.0); LYMPHOCYTE # 1.2 TH/MM3 (1.0-4.8); MEAN CELL VOLUME 69.8 FL (80.0-100.0); MEAN CORPUSCULAR HEMOGLOBIN 22.4 PG (27.0-34.0); MEAN PLATELET VOLUME 8.4 FL (7.0-11.0); MONO % 8.8 % (0.0-8.0); MONOCYTE # 1.9 TH/MM3 (0-0.9); NEUT % 84.6 % (16.0-70.0); PLATELET COUNT 291 TH/MM3 (150-450); RED CELL DISTRIBUTION WIDTH 17.9 % (11.6-17.2); WHITE BLOOD COUNT 21.1 TH/MM3 (4.0-11.0)
[2017-09-09 06:05] LABS: ALBUMIN 2.4 GM/DL (3.4-5.0); ALT (GPT) 11 U/L (10-53); AST (GOT) 17 U/L (15-37); BICARBONATE 29.3 MEQ/L (21.0-32.0); BLOOD UREA NITROGEN 10 MG/DL (7-18); CALCIUM 8.7 MG/DL (8.5-10.1); CHLORIDE 99 MEQ/L (98-107); CREATININE 0.79 MG/DL (0.50-1.00); GLOMERULAR FILTRATION RATE 83 ML/MIN (>89); GLUCOSE,RANDOM 119 MG/DL (74-106); MAGNESIUM 2.1 MG/DL (1.5-2.5); SODIUM (NA) 134 MEQ/L (136-145)
[2017-09-09 06:08] LABS: ALKALINE PHOSPHATASE 113 U/L (45-117); PHOSPHORUS 4.3 MG/DL (2.5-4.9); TOTAL BILIRUBIN ADULT 0.7 MG/DL (0.2-1.0); TOTAL PROTEIN 6.8 GM/DL (6.4-8.2)
--- NOTE | 2017-09-09 07:28 | RADRPT ---
EXAM DATE/TIME: 09/08/2017 18:04 CORRECTION Corrected on: September 09, 2017; Correcting Radiologist name from Rajesh Monahan, yo SALAS COMPARISON: CT BRAIN W/O CONTRAST, September 08, 2017, 10:22. MRI BRAIN W & W/O CONTRAST, March 02, 2017, 17:07. INDICATIONS : Abnormal CT. CONTRAST: 20 cc Omniscan (gadodiamide) IV MEDICAL HISTORY : Endocarditis. SURGICAL HISTORY : Heart valvel replacement. ENCOUNTER: Initial ACUITY: 1 day PAIN SCORE: 0/10 LOCATION: cranial TECHNIQUE: Multiplanar, multisequence MRI of the brain was performed both prior to and following the administrat ion of paramagnetic contrast. Exam is limited because the patient refused further scanning. Necessa ry pulse sequences were not completed. FINDINGS: Moderate motion artifact is present. There has been deterioration appearance of the scan. Ther e's been an increased amount of periventricular white matter changes. These are scattered in both th e right and left hemispheres. Posterior fossa is spared at the moment. There is no associated paren chymal hemorrhage. Largest of these is in the right occipital region. This measures approximately 1 .6 cm. 2 smaller similar lesions are seen in the vasoganglia on the left. On the postcontrast images there is focal enhancement of the lesion in the left the right occipi sharmin region. 4 mm enhancing lesion is seen high in the left centrum semiovale There is subtle enhancement in the vasoganglia on the left measuring 6 mm. The gradient echo images are degraded by motion. Diffusion images were obtained. CONCLUSION: Deterioration in the appearance of the scan. At least 3 focal areas of abnormal contrast enhancement are present scattered to in both hemispheres. Given the history this most likely represents develop ing areas cerebritis. Exam is compromised by an uncooperative patient and motion artifact. These 2 factors make detection of other abnormalities such as cortical cephalitis and meningitis difficult to exclude. Cannot exclude hemorrhagic lesions as well. There is no mass effect evident. Geremias Mauricio MD, FACS on September 08, 2017 at 20:34 Board Certified Radiologist. This report was verified electronically. on September 09, 2017 at 20:42 Board Certified Radiologist. This report was verified electronically.
[2017-09-09] MEDS: FAMOTIDINE 20 MG TAB PO SCH ×2 (08:22→20:25)
[2017-09-09] MEDS: SODIUM CHLORIDE 0.9% FLUSH 10 ML FLUSH IV FLUSH SCH (08:24)
[2017-09-09] MEDS: DOCUSATE SODIUM 50 MG/SENNA 8.6 MG TAB PO SCH ×2 (08:24→20:25)
--- NOTE | 2017-09-09 10:10 | PD.ONC.PN ---
Subjective Subjective Remarks Tmax 102 last night at around 8 PM; blood cultures 1 are pending Patient reports pain with taking a deep breath is unchanged Shortness of breath unchanged No bleeding Objective Data Date Time Temp Pulse Resp B/P (MAP) Pulse Ox O2 Delivery O2 Flow Rate FiO2 09/09/17 09:49 100 Venturi Mask 35 09/09/17 06:00 118 09/09/17 04:00 100 09/09/17 04:00 98.4 100 29 94/64 (74) 97 09/09/17 02:00 95 09/09/17 01:00 97 Venturi Mask 5.00 35 09/09/17 00:00 109 09/09/17 00:00 98 Venturi Mask 35.00 09/09/17 00:00 97.6 109 32 96/64 (75) 88 09/08/17 22:00 97 Nasal Cannula 3.00 09/08/17 22:00 125 09/08/17 20:00 89 Nasal Cannula 4.00 09/08/17 20:00 129 09/08/17 20:00 102.2 129 38 109/78 (88) 87 09/08/17 19:27 33 09/08/17 18:00 112 09/08/17 16:00 110 09/08/17 16:00 99.2 111 30 106/73 (84) 99 09/08/17 15:00 22 09/08/17 14:00 108 09/08/17 12:27 22 09/08/17 12:00 114 09/08/17 12:00 123 09/08/17 12:00 99.6 114 23 96/61 (73) 96 09/08/17 11:58 22 09/09/17 09/09/17 09/09/17 07:00 15:00 23:00 Intake Total 1300.0 ml Output Total 1000 ml Balance 300.0 ml Result Diagram: 09/09/17 0500 09/09/17 0500 Laboratory Results Laboratory Tests Test 09/08/17 21:50 09/09/17 05:00 Urine Opiates Screen POS Urine Barbiturates Screen NEG Urine Amphetamines Screen NEG Urine Benzodiazepines Screen NEG Urine Cocaine Screen NEG Urine Cannabinoids Screen NEG White Blood Count 21.1 TH/MM3 Red Blood Count 3.30 MIL/MM3 Hemoglobin 7.4 GM/DL Hematocrit 23.0 % Mean Corpuscular Volume 69.8 FL Mean Corpuscular Hemoglobin 22.4 PG Mean Corpuscular Hemoglobin Concent 32.0 % Red Cell Distribution Width 17.9 % Platelet Count 291 TH/MM3 Mean Platelet Volume 8.4 FL Neutrophils (%) (Auto) 84.6 % Lymphocytes (%) (Auto) 5.7 % Monocytes (%) (Auto) 8.8 % Eosinophils (%) (Auto) 0.4 % Basophils (%) (Auto) 0.5 % Neutrophils # (Auto) 17.8 TH/MM3 Lymphocytes # (Auto) 1.2 TH/MM3 Monocytes # (Auto) 1.9 TH/MM3 Eosinophils # (Auto) 0.1 TH/MM3 Basophils # (Auto) 0.1 TH/MM3 CBC Comment DIFF FINAL Differential Comment Activated Partial Thromboplast Time 77.9 SEC Blood Urea Nitrogen 10 MG/DL Creatinine 0.79 MG/DL Random Glucose 119 MG/DL Total Protein 6.8 GM/DL Albumin 2.4 GM/DL Calcium Level 8.7 MG/DL Phosphorus Level 4.3 MG/DL Magnesium Level 2.1 MG/DL Alkaline Phosphatase 113 U/L Aspartate Amino Transf (AST/SGOT) 17 U/L Alanine Aminotransferase (ALT/SGPT) 11 U/L Total Bilirubin 0.7 MG/DL Sodium Level 134 MEQ/L Potassium Level 4.4 MEQ/L Chloride Level 99 MEQ/L Carbon Dioxide Level 29.3 MEQ/L Anion Gap 6 MEQ/L Estimat Glomerular Filtration Rate 83 ML/MIN Culture Results Microbiology Date/Time Source Procedure Growth Status 09/09/17 05:50 Blood Peripheral Aerobic Blood Culture Pending Received 09/09/17 05:50 Blood Peripheral Anaerobic Blood Culture Pending Received 09/08/17 21:20 Blood Line Aerobic Blood Culture Pending Received 09/08/17 21:20 Blood Line Anaerobic Blood Culture Pending Received 09/07/17 05:43 Blood Peripheral Aerobic Blood Culture - Preliminary NO GROWTH IN 1 DAY Resulted 09/07/17 05:43 Blood Peripheral Anaerobic Blood Culture - Preliminary NO GROWTH IN 1 DAY Resulted 09/07/17 05:36 Blood Peripheral Aerobic Blood Culture - Preliminary NO GROWTH IN 1 DAY Resulted 09/07/17 05:36 Blood Peripheral Anaerobic Blood Culture - Preliminary NO GROWTH IN 1 DAY Resulted 09/08/17 21:50 Sputum Expectorated Sputum Gram Stain - Final Resulted 09/08/17 21:50 Sputum Expectorated Sputum Sputum Culture Pending Resulted Administered Medications Medications (Trade) Dose Ordered Sig/Jessica Route PRN Reason Start Time Stop Time Status Last Admin Dose Admin Sodium Chloride (NS Flush) 2 ml BID IV FLUSH 09/01/17 09:00 09/09/17 08:24 Acetaminophen (Tylenol) 650 mg Q6H PRN PO fever 08/31/17 22:00 09/08/17 21:31 Temazepam (Restoril) 15 mg HS PRN PO INSOMNIA 08/31/17 22:00 09/09/17 00:27 Chlorhexidine Gluconate (Chlorhexidine 2% Cloth) Taper DAILY@04 TOP 09/01/17 04:00 08/28/18 03:59 09/09/17 01:50 Senna/Docusate Sodium (Armida-Colace) 1 tab BID PO 09/01/17 09:00 09/08/17 21:31 Ampicillin Sodium 2000 mg/Sodium Chloride 100 ml @ 400 mls/hr Q6H IV 09/01/17 14:00 09/09/17 08:23 Hydromorphone HCl (Dilaudid Pf Inj) 2 mg Q4H PRN IV PUSH PAIN SCALE 6 TO 10 09/02/17 15:00 09/09/17 09:14 Loperamide HCl (Imodium) 2 mg Q4H PRN PO Diarrhea 09/03/17 16:15 09/05/17 14:32 Gentamicin Sulfate 100 mg/ Sodium Chloride 102.5 ml @ 100 mls/hr Q8H IV 09/03/17 21:00 09/09/17 04:58 Albuterol Sulfate (Albuterol Neb) 2.5 mg Q2HR NEB PRN NEB dyspnea 09/04/17 11:30 09/07/17 02:47 Acetaminophen/ Hydrocodone Bitart ([place] 10-325 Mg) 1 tab Q6H PRN PO pain 1-5 09/04/17 11:30 09/08/17 21:31 Famotidine (Pepcid) 20 mg BID PO 09/04/17 21:00 09/09/17 08:22 Argatroban 250 mg/ Sodium Chloride 252.5 ml @ 3.11 mls/hr TITRATE PRN IV aPTT < 50 09/06/17 19:15 09/08/17 18:58 Vancomycin HCl 1500 mg/Sodium Chloride 515 ml @ 257.5 mls/ hr Q8H IV 09/09/17 02:00 09/09/17 09:14 Objective Remarks GENERAL: Overweight younger female, asleep in bed on approach in no obvious distress. SKIN: Warm and dry. HEAD: Normocephalic. EYES: No scleral icterus. No injection or drainage. NECK: No JVD or lymphadenopathy. CARDIOVASCULAR: Tachycardia RESPIRATORY: Coarse lung sounds GASTROINTESTINAL: Abdomen soft, non-tender, nondistended. EXTREMITIES: Cyanosis to LLE MUSCULOSKELETAL: Adequate muscle tone. NEUROLOGICAL: No obvious focal deficit. Awake, alert, and oriented x3. Assessment/Plan Problem List: (1) arterial blood clot Plan: --on Argatroban (direct thrombin inhibitor) -- no significant family history of thrombotic events to suggest hereditary antithrombin deficiency. suspect the antithrombin deficiency comes from her impaired production from her liver disease. --has chronic active hepatitis C. ++increased consumption from disseminated intravascular coagulation and acute illness, bacterial endocarditis. --Protein losses are also considered. She had mild proteinuria when she first was admitted. --Thrombin inactivates antithrombin. This would abrogate the effect of unfractionated heparin and low molecular weight heparin. (2) Acute septic pulmonary embolism ICD Codes: I26.90 - Septic pulmonary embolism without acute cor pulmonale Plan: -- The echocardiogram on 09/08 showed an estimated EF of 50-55%. There was severe tricuspid regurgitation with prosthesis in place. 2 x 4 cm mobile vegetation was seen on the valve. The right atrium and right ventricle were normal in size and function Assessment 36y/o female admitted with recurrent endocarditis. hematology consulted for anticoagulation assistance. h/o Recurrent bacterial endocarditis, bacteremia, history of prosthetic aortic valve and subsequent redo, chronic active hepatitis C, intravenous drug use, microcytic anemia, consistent with iron deficiency, left lower extremity arterial event, bacterial endocarditis with viridans streptococcus. HPI (brought forward for continuity of care): history of IV drug abuse and recurrent endocarditis. had a relapse of her activity. has history of pulmonary embolism and infected valves. +significant congestive heart failure and presented to the emergency room on 08/31/2017, with sepsis. is followed by Infectious Disease for her endocarditis. previously received antibiotic therapy for enterococcus faecalis and staph aureus. There is questionable compliance. Her current blood culture from 08/31/2017, shows viridans streptococcus. Two out of two bottles were positive. She is on ampicillin and gentamicin. course is complicated by cold left lower extremity, evaluated by Vascular Surgery. 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 There is satisfactory calf runoff present. For this reason , conservative management with anticoagulation is continued. was placed on unfractionated heparin. Her heparin dose has been titrated from 1000 units/ hour to 2500 units/hour with a PTT remaining subtherapeutic. Her last PTT is 32 seconds from 09/06/2017, at 2 p.m. For this reason, Hematology/Oncology is consulted. Plan 1. Echocardiogram showed severe tricuspid regurgitation 2. Recommend to continue the argatroban 3. Continue antibiotics per infectious disease 4. Monitor CBC, Cyndi Gagnon Sep 09, 2017 10:10
--- NOTE | 2017-09-09 11:07 | HHI.IDPN ---
Note Infectious Disease Note ID xcover for is a 36 y/o CF, prosthetic aortic valve replacement in 2010 and then redo aortic valve replacement in December 2015, and prior h/o endocarditis who was on Doxy oral suppression. The patient developed shortness of breath, fever and chills, and presented to the emergency department. The patient is noted to be actively using IV drugs. She has history of significant CHF from prior valvular heart disease related to endocarditis. She states that she started feeling short of breath about a week ago and the shortness of breath worsened. After she completed IV antibiotics in April she was put on doxycycline prophylaxis. She reports that she has not been taking the doxycycline. ID now following for Strep Viridans PV endocarditis. Patient complained of chest pain overnight. CT chest repeated and significantly worse with increased septic emboli multiple on both sides. Tmax 102 F Complains of CP on deep inspiration. No sputum production. Shortness of breath with minimal exertion. Continues to have pain in the left leg and left foot. Awake and alert. Follows simple commands. No vision changes. No B/B incontinence. PAST MEDICAL HISTORY: Hepatitis C. IV drug use. prosthetic aortic valve replacement in 2010 and then redo aortic valve replacement in December 2015 MEDICATIONS: 1. Gentamicin. 2. Ampicillin. Current Medications Medications (Trade) Dose Ordered Sig/Jessica Route Start Time Stop Time Status Last Admin (NS Flush) 2 ml UNSCH PRN IV FLUSH 08/31/17 22:00 (NS Flush) 2 ml BID IV FLUSH 09/01/17 09:00 09/09/17 08:24 (Tylenol) 650 mg Q6H PRN PO 08/31/17 22:00 09/08/17 21:31 (Zofran Inj) 4 mg Q6H PRN IV PUSH 08/31/17 22:00 (Restoril) 15 mg HS PRN PO 08/31/17 22:00 09/09/17 00:27 Miscellaneous Information 1 Q361D XX 08/31/17 22:00 (Chlorhexidine 2% Cloth) Taper DAILY@04 TOP 09/01/17 04:00 08/28/18 03:59 09/09/17 01:50 (Chlorhexidine 2% Cloth) 3 pack UNSCH PRN TOP 08/31/17 22:00 (Armida-Colace) 1 tab BID PO 09/01/17 09:00 09/08/17 21:31 (Milk Of Magnesia Liq) 30 ml Q12H PRN PO 08/31/17 22:00 (Senokot) 17.2 mg Q12H PRN PO 08/31/17 22:00 (Dulcolax Supp) 10 mg DAILY PRN RECTAL 08/31/17 22:00 (Lactulose Liq) 30 ml DAILY PRN PO 08/31/17 22:00 Ampicillin Sodium 2000 mg/Sodium Chloride 100 ml @ 400 mls/hr Q6H IV 09/01/17 14:00 09/09/17 08:23 (Dilaudid Pf Inj) 2 mg Q4H PRN IV PUSH 09/02/17 15:00 09/09/17 09:14 (Imodium) 2 mg Q4H PRN PO 09/03/17 16:15 09/05/17 14:32 Gentamicin Sulfate 100 mg/ Sodium Chloride 102.5 ml @ 100 mls/hr Q8H IV 09/03/17 21:00 09/09/17 04:58 (Albuterol Neb) 2.5 mg Q2HR NEB PRN NEB 09/04/17 11:30 09/07/17 02:47 ([place] 10-325 Mg) 1 tab Q6H PRN PO 09/04/17 11:30 09/08/17 21:31 (Pepcid) 20 mg BID PO 09/04/17 21:00 09/09/17 08:22 Argatroban 250 mg/ Sodium Chloride 252.5 ml @ 3.11 mls/hr TITRATE PRN IV 09/06/17 19:15 09/08/17 18:58 Pharmacy Profile Note 0 ml @ 0 mls/hr UNSCH OTHER 09/08/17 16:45 Vancomycin HCl 1500 mg/Sodium Chloride 515 ml @ 257.5 mls/ hr Q8H IV 09/09/17 02:00 09/09/17 09:14 Miscellaneous Information SPECIFIC LAB TO BE DRAWN:VANCOMYCIN TROUGH DATE TO... ONCE ONCE .XX 09/09/17 17:45 09/09/17 17:46 SOCIAL HISTORY: Positive occasional alcohol. No tobacco. IV drug use in the form of Dilaudid, oxycodone. The patient also uses marijuana. OBJECTIVE: Vital Signs Date Time Temp Pulse Resp B/P (MAP) Pulse Ox O2 Delivery O2 Flow Rate FiO2 09/09/17 10:00 120 09/09/17 09:49 100 Venturi Mask 35 09/09/17 09:44 22 09/09/17 08:00 99.8 114 32 97/67 (77) 100 09/09/17 08:00 114 09/09/17 07:00 100 Nasal Cannula 3.00 09/09/17 06:00 118 09/09/17 04:00 100 09/09/17 04:00 98.4 100 29 94/64 (74) 97 09/09/17 02:00 95 09/09/17 01:00 97 Venturi Mask 5.00 35 09/09/17 00:00 109 09/09/17 00:00 98 Venturi Mask 35.00 09/09/17 00:00 97.6 109 32 96/64 (75) 88 09/08/17 22:00 97 Nasal Cannula 3.00 09/08/17 22:00 125 09/08/17 20:00 89 Nasal Cannula 4.00 09/08/17 20:00 129 09/08/17 20:00 102.2 129 38 109/78 (88) 87 09/08/17 19:27 33 09/08/17 18:00 112 09/08/17 16:00 110 09/08/17 16:00 99.2 111 30 106/73 (84) 99 09/08/17 14:00 108 09/08/17 12:27 22 09/08/17 12:00 114 09/08/17 12:00 123 09/08/17 12:00 99.6 114 23 96/61 (73) 96 09/08/17 11:58 22 Laboratory Tests Test 09/06/17 14:00 09/06/17 19:20 09/06/17 23:51 09/07/17 03:50 Activated Partial Thromboplast Time 32.0 SEC 32.2 SEC 58.7 SEC Prothrombin Time 12.3 SEC Prothromb Time International Ratio 1.2 RATIO White Blood Count 13.6 TH/MM3 Red Blood Count 3.22 MIL/MM3 Hemoglobin 7.3 GM/DL Hematocrit 22.6 % Mean Corpuscular Volume 70.1 FL Mean Corpuscular Hemoglobin 22.8 PG Mean Corpuscular Hemoglobin Concent 32.6 % Red Cell Distribution Width 17.6 % Platelet Count 250 TH/MM3 Mean Platelet Volume 8.5 FL Blood Urea Nitrogen 9 MG/DL Creatinine 0.72 MG/DL Random Glucose 141 MG/DL Calcium Level 8.4 MG/DL Phosphorus Level 4.8 MG/DL Magnesium Level 1.8 MG/DL Sodium Level 137 MEQ/L Potassium Level 4.2 MEQ/L Chloride Level 102 MEQ/L Carbon Dioxide Level 29.0 MEQ/L Anion Gap 6 MEQ/L Estimat Glomerular Filtration Rate 92 ML/MIN Test 09/07/17 05:36 09/08/17 03:45 09/08/17 21:50 09/09/17 05:00 Activated Partial Thromboplast Time 53.8 SEC 60.2 SEC 77.9 SEC White Blood Count 17.7 TH/MM3 21.1 TH/MM3 Red Blood Count 3.27 MIL/MM3 3.30 MIL/MM3 Hemoglobin 7.4 GM/DL 7.4 GM/DL Hematocrit 23.0 % 23.0 % Mean Corpuscular Volume 70.3 FL 69.8 FL Mean Corpuscular Hemoglobin 22.7 PG 22.4 PG Mean Corpuscular Hemoglobin Concent 32.3 % 32.0 % Red Cell Distribution Width 17.9 % 17.9 % Platelet Count 272 TH/MM3 291 TH/MM3 Mean Platelet Volume 8.5 FL 8.4 FL Prothrombin Time 21.3 SEC Prothromb Time International Ratio 2.1 RATIO Blood Urea Nitrogen 10 MG/DL 10 MG/DL Creatinine 0.73 MG/DL 0.79 MG/DL Random Glucose 113 MG/DL 119 MG/DL Calcium Level 8.5 MG/DL 8.7 MG/DL Sodium Level 135 MEQ/L 134 MEQ/L Potassium Level 4.5 MEQ/L 4.4 MEQ/L Chloride Level 100 MEQ/L 99 MEQ/L Carbon Dioxide Level 28.2 MEQ/L 29.3 MEQ/L Anion Gap 7 MEQ/L 6 MEQ/L Estimat Glomerular Filtration Rate 91 ML/MIN 83 ML/MIN Urine Opiates Screen POS Urine Barbiturates Screen NEG Urine Amphetamines Screen NEG Urine Benzodiazepines Screen NEG Urine Cocaine Screen NEG Urine Cannabinoids Screen NEG Neutrophils (%) (Auto) 84.6 % Lymphocytes (%) (Auto) 5.7 % Monocytes (%) (Auto) 8.8 % Eosinophils (%) (Auto) 0.4 % Basophils (%) (Auto) 0.5 % Neutrophils # (Auto) 17.8 TH/MM3 Lymphocytes # (Auto) 1.2 TH/MM3 Monocytes # (Auto) 1.9 TH/MM3 Eosinophils # (Auto) 0.1 TH/MM3 Basophils # (Auto) 0.1 TH/MM3 CBC Comment DIFF FINAL Differential Comment Total Protein 6.8 GM/DL Albumin 2.4 GM/DL Phosphorus Level 4.3 MG/DL Magnesium Level 2.1 MG/DL Alkaline Phosphatase 113 U/L Aspartate Amino Transf (AST/SGOT) 17 U/L Alanine Aminotransferase (ALT/SGPT) 11 U/L Total Bilirubin 0.7 MG/DL Test 09/09/17 10:00 Activated Partial Thromboplast Time 57.3 SEC Microbiology Date/Time Source Procedure Growth Status 09/09/17 05:50 Blood Peripheral Aerobic Blood Culture Pending Received 09/09/17 05:50 Blood Peripheral Anaerobic Blood Culture Pending Received 09/02/17 21:00 Stool Stool Stool Occult Blood (DONNY) - Final HEMOCCULT NEGATIVE Complete 09/08/17 21:50 Sputum Expectorated Sputum Gram Stain - Final Resulted 09/08/17 21:50 Sputum Expectorated Sputum Sputum Culture Pending Resulted 08/31/17 22:30 Urine Suprapubic Urine Urine Culture - Final NO GROWTH IN 48 HOURS. Complete Date/Time Source Procedure Growth Status 09/07/17 05:43 Blood Peripheral Aerobic Blood Culture - Preliminary NO GROWTH IN 1 DAY Resulted 09/07/17 05:43 Blood Peripheral Anaerobic Blood Culture - Preliminary NO GROWTH IN 1 DAY Resulted 09/02/17 21:00 Stool Stool Stool Occult Blood (DONNY) - Final HEMOCCULT NEGATIVE Complete 08/31/17 22:30 Urine Suprapubic Urine Urine Culture - Final NO GROWTH IN 48 HOURS. Complete IMAGING: Last Impressions Head CT 09/08/17 0000 Signed Impressions: Service Date/Time: Friday, September 08, 2017 10:22 - CONCLUSION: 1. Focal area of decreased density involving the right parietal lobe. As a new finding from the prior exam. This could relate to a small infarct. MRI of the brain with gadolinium suggested to further evaluate. 2. Small lacunar infarction involving the left centrum semiovale. Ananth Ponce Jr., MD CT Angiography 09/08/17 0000 Signed Impressions: Service Date/Time: Friday, September 08, 2017 10:28 - CONCLUSION: There extensive pulmonary emboli bilaterally. There is near complete cut off of the right lower lobe pulmonary artery. Prominent filling defects on the left as well. These findings were relayed to Dr. Dominguez immediately at the completion of the study. Scattered pulmonary infiltrates, small pleural effusion and extensive mediastinal lymphadenopathy as described above. Karsten Crowder MD Brain MRI 09/08/17 0000 Signed Impressions: Service Date/Time: Friday, September 08, 2017 18:04 - CONCLUSION: Deterioration in the appearance of the scan. At least 3 focal areas of abnormal contrast enhancement are present scattered to in both hemispheres. Given the history this most likely represents developing areas cerebritis. Exam is compromised by an uncooperative patient and motion artifact. These 2 factors make detection of other abnormalities such as cortical cephalitis and meningitis difficult to exclude. Cannot exclude hemorrhagic lesions as well. There is no mass effect evident. Alex Monahan MD Chest X-Ray 09/06/17 0600 Signed Impressions: Service Date/Time: September 03:05 - CONCLUSION: 1. Stable patchy bilateral lower lung zone airspace disease. 2. No significant interval change. Luis Leija MD Chest CT 09/03/17 0000 Signed Impressions: Service Date/Time: Sunday, September 03, 2017 12:41 - CONCLUSION: 1. There are at least 5 pulmonary nodules present bilaterally with the largest measuring 19 mm. None demonstrate cavitation but it is possible that these represent septic emboli. Suggest followup to assess for change. 2. Splenomegaly with subtle wedge-shaped areas of low-density in the mid spleen which could represent infarcts. 3. Mild cardiomegaly in this patient post aortic valve replacement. Low density of the cardiac blood pool suggests anemia. Adalid Galo MD Aorta w/Runoff CTA 09/02/17 0000 Signed Impressions: Service Date/Time: Saturday, September 02, 2017 12:47 - CONCLUSION: Left renal cortical infarction. 5-6 cm length total occlusion of the left superficial femoral artery in the proximal thigh. Nodular parenchymal opacities in the lung bases bilaterally See above discussion. Adalid Dallas MD Renal Ultrasound 09/01/17 0000 Signed Impressions: Service Date/Time: Friday, September 01, 2017 10:53 - CONCLUSION: 1. No evidence of hydronephrosis. 2. Thickening of the urinary bladder wall a 1.1 cm. 3. Prominent splenomegaly. Baldemar Pineda MD Breast Ultrasound 09/01/17 0000 Signed Impressions: Service Date/Time: Friday, September 01, 2017 10:48 - CONCLUSION: Negative targeted right breast ultrasound examination. Adalid Haney MD Lower Extremity Ultrasound 08/31/17 0000 Signed Impressions: Service Date/Time: Thursday, August 31, 2017 21:22 - CONCLUSION: 1. No sonographic evidence for lower extremity DVT. 2. Incidental note of bilateral inguinal adenopathy with the largest on the right measuring 3.3 cm and the largest on the left measuring 2.6 cm. This finding is nonspecific but is typically reactive in etiology. Luis Leija MD PHYSICAL EXAMINATION GENERAL: No acute distress. HEENT: Head atraumatic. Extraocular movements grossly intact. Pupils reactive to light. No icterus. Oropharynx moist mucosa, no lesions. Neck: Supple without adenopathy. Lungs: Coarse bilateral rhonchi. Mild wheezing at the bases. Heart: 5/6 blowing systolic murmur at the upper right sternal border. Abdomen: Bowel sounds present, soft, obese, nontender. Extremities: Diffuse 2+ edema of the lower extremities. Lesions at Left tibia distally and left foot and great toe are more red and not purpuric as before. Toes 3 and 5 are cyanotic. The leg is tender on palpation. It is warm. No calf tenderness. No nail bed hemorrhages. SKIN: no diffuse rash. Neuro: No gross focal findings. Psychiatric: calm and cooperative. IMPRESSION Sepsis. Strep Viridans. Bacteremia: Strep viridans. Septic pulmonary emboli multiple. TV valve endocarditis. History of prosthetic aortic valve and so likely recurrent prosthetic valve endocarditis. Left renal cortical and pulmonary and lower extremity septic emboli. Leukocytosis secondary to sepsis from showering of emboli from endocarditis. Acute renal failure. Kidney function improved. Stable. RECOMMENDATIONS Continue Ampicillin intravenous. Continue Gentamicin IV. Now that the kidney function is improved but follow the renal function. Repeat Blood cultures (1 PIV and 1 RIJ CL) Continue Vanco IV (target 15-20) Severe TR on repeat ECHO with new vegetations and increased pulm emboli. Recommend RACHEL to look for size, number of lesions and if any perivalvular abscess given severe TR. If further change in mentation consider repeat MRI brain(cerebritis can turn into abscess) and LP(initial stages of cerebritis LP can be negative but if AMS worsens consider LP). If abdominal discomfort persists and leucocytosis persistent or worsening consider CT Abd/pelvis with contrast. If any vision change consider MRI brain and opthalm consult to r.o endopthalmitis. herman Swain Critical thinking and decision making. Dr Parker to resume care in am. Linda Toth MD Sep 09, 2017 11:07
--- NOTE | 2017-09-09 12:04 | PD.CONS ---
History of Present Illness Service CT Surgery Consult Requested By Dr. 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 She had an ECHO within the last 2 days which shows severe tricuspid regurgitation with vegetation and possible prosthetic aortic valve involvement. Blood cultures grew strep viridans. Currently anticoagulated on argatroban with ongoing fever up to 102. Review of Systems Constitutional: COMPLAINS OF: Diaphoretic episodes, Fatigue, Fever, Chills, Night Sweats, DENIES: Weight gain, Weight loss, Dizziness, Change in appetite Endocrine: DENIES: Abnorml menstrual pattern, Heat/cold intolerance, Polydipsia , Polyuria, Polyphagia Eyes: DENIES: Blurred vision, Diplopia, Eye inflammation, Eye pain, Vision loss , Photosensitivity, Double Vision Ears, nose, mouth, throat: DENIES: Tinnitus, Hearing loss, Vertigo, Nasal discharge, Oral lesions, Throat pain, Hoarseness, Ear Pain, Running Nose, Epistaxis, Sinus Pain, Toothache, Odynophagia Respiratory: COMPLAINS OF: Cough, Shortness of breath, DENIES: Apneas, Snoring , Wheezing, Hemoptysis, Sputum production Cardiovascular: COMPLAINS OF: Dyspnea on Exertion, Lower Extremity Edema, DENIES: Chest pain, Palpitations, Syncope, PND, Orthopnea, Claudication Gastrointestinal: DENIES: Abdominal pain, Black stools, Bloody stools, Constipation, Diarrhea, Nausea, Vomiting, Difficulty Swallowing, Anorexia Musculoskeletal: COMPLAINS OF: Muscle aches, Back pain, DENIES: Joint pain, Stiffness, Joint Swelling, Neck pain Integumentary: DENIES: Abnormal pigmentation, Pruritus, Rash, Nail changes, Breast masses, Breast skin changes, Nipple discharge Hematologic/lymphatic: DENIES: Bruising, Lymphadenopathy Immunologic/allergic: DENIES: Eczema, Urticaria Psychiatric: COMPLAINS OF: Anxiety, Mood changes, Depression, DENIES: Confusion , Hallucinations, Agitation, Suicidal Ideation, Homicidal Ideation, Delusions Past Family Social History Allergies: Coded Allergies: No Known Allergies (Verified Allergy, Unknown, 08/31/17) Past Medical History Past Medical History Hepatitis C IV drug abuse Narcotic dependency Bacterial endocarditis Past Surgical History Left forearm surgery Reported Medications none Active Ordered Medications Current Medications Medications (Trade) Dose Ordered Sig/Jessica Route Start Time Stop Time Status Last Admin (NS Flush) 2 ml UNSCH PRN IV FLUSH 08/31/17 22:00 (NS Flush) 2 ml BID IV FLUSH 09/01/17 09:00 09/09/17 08:24 (Tylenol) 650 mg Q6H PRN PO 08/31/17 22:00 09/08/17 21:31 (Zofran Inj) 4 mg Q6H PRN IV PUSH 08/31/17 22:00 (Restoril) 15 mg HS PRN PO 08/31/17 22:00 09/09/17 00:27 Miscellaneous Information 1 Q361D XX 08/31/17 22:00 (Chlorhexidine 2% Cloth) Taper DAILY@04 TOP 09/01/17 04:00 08/28/18 03:59 09/09/17 01:50 (Chlorhexidine 2% Cloth) 3 pack UNSCH PRN TOP 08/31/17 22:00 (Armida-Colace) 1 tab BID PO 09/01/17 09:00 09/08/17 21:31 (Milk Of Magnesia Liq) 30 ml Q12H PRN PO 08/31/17 22:00 (Senokot) 17.2 mg Q12H PRN PO 08/31/17 22:00 (Dulcolax Supp) 10 mg DAILY PRN RECTAL 08/31/17 22:00 (Lactulose Liq) 30 ml DAILY PRN PO 08/31/17 22:00 Ampicillin Sodium 2000 mg/Sodium Chloride 100 ml @ 400 mls/hr Q6H IV 09/01/17 14:00 09/09/17 08:23 (Dilaudid Pf Inj) 2 mg Q4H PRN IV PUSH 09/02/17 15:00 09/09/17 09:14 (Imodium) 2 mg Q4H PRN PO 09/03/17 16:15 09/05/17 14:32 Gentamicin Sulfate 100 mg/ Sodium Chloride 102.5 ml @ 100 mls/hr Q8H IV 09/03/17 21:00 09/09/17 04:58 (Albuterol Neb) 2.5 mg Q2HR NEB PRN NEB 09/04/17 11:30 09/07/17 02:47 ([place] 10-325 Mg) 1 tab Q6H PRN PO 09/04/17 11:30 09/08/17 21:31 (Pepcid) 20 mg BID PO 09/04/17 21:00 09/09/17 08:22 Argatroban 250 mg/ Sodium Chloride 252.5 ml @ 3.11 mls/hr TITRATE PRN IV 09/06/17 19:15 09/08/17 18:58 Pharmacy Profile Note 0 ml @ 0 mls/hr UNSCH OTHER 09/08/17 16:45 Vancomycin HCl 1500 mg/Sodium Chloride 515 ml @ 257.5 mls/ hr Q8H IV 09/09/17 02:00 09/09/17 09:14 Miscellaneous Information SPECIFIC LAB TO BE DRAWN:VANCOMYCIN TROUGH DATE TO... ONCE ONCE .XX 09/09/17 17:45 09/09/17 17:46 Family History unremarkable Social History Polysubstance abuse Physical Exam Vital Signs Vital Signs Date Time Temp Pulse Resp B/P (MAP) Pulse Ox O2 Delivery O2 Flow Rate FiO2 09/09/17 10:00 120 09/09/17 09:49 100 Venturi Mask 35 09/09/17 09:44 22 09/09/17 08:00 99.8 114 32 97/67 (77) 100 09/09/17 08:00 114 09/09/17 07:00 100 Nasal Cannula 3.00 09/09/17 06:00 118 09/09/17 04:00 100 09/09/17 04:00 98.4 100 29 94/64 (74) 97 09/09/17 02:00 95 09/09/17 01:00 97 Venturi Mask 5.00 35 09/09/17 00:00 109 09/09/17 00:00 98 Venturi Mask 35.00 09/09/17 00:00 97.6 109 32 96/64 (75) 88 09/08/17 22:00 97 Nasal Cannula 3.00 09/08/17 22:00 125 09/08/17 20:00 89 Nasal Cannula 4.00 09/08/17 20:00 129 09/08/17 20:00 102.2 129 38 109/78 (88) 87 09/08/17 19:27 33 09/08/17 18:00 112 09/08/17 16:00 110 09/08/17 16:00 99.2 111 30 106/73 (84) 99 09/08/17 14:00 108 09/08/17 12:27 22 09/08/17 12:00 114 09/08/17 12:00 123 09/08/17 12:00 99.6 114 23 96/61 (73) 96 09/08/17 11:58 22 Physical Exam GENERAL: This is a well-nourished, well-developed patient, who appears lethargic and somewhat dyspneic. SKIN: Lower extremity ecchymosis, edema, and purpura. HEAD: Atraumatic. No temporal or scalp tenderness. EYES: Pupils equal round and reactive. Extraocular motions intact. No scleral icterus. No injection or drainage. ENT: Nose without bleeding, purulent drainage or septal hematoma. Throat without erythema, tonsillar hypertrophy or exudate. Uvula midline. Airway patent. NECK: Trachea midline. No JVD or lymphadenopathy. Supple, nontender, no meningeal signs. CARDIOVASCULAR: Regular rate and rhythm with S4 gallop, tachycardic. RESPIRATORY: bilateral crackles. Breath sounds equal bilaterally. GASTROINTESTINAL: Abdomen soft, mildly tender, nondistended. MUSCULOSKELETAL: Extremities without clubbing, cyanosis, 1+ edema. No joint tenderness, effusion, or edema noted. NEUROLOGICAL: Lethargic. Cranial nerves II through XII intact. Motor and sensory grossly within normal limits. Five out of 5 muscle strength in all muscle groups. Slurred speech. Laboratory Laboratory Tests Test 09/08/17 21:50 09/09/17 05:00 09/09/17 10:00 Urine Opiates Screen POS Urine Barbiturates Screen NEG Urine Amphetamines Screen NEG Urine Benzodiazepines Screen NEG Urine Cocaine Screen NEG Urine Cannabinoids Screen NEG White Blood Count 21.1 Red Blood Count 3.30 Hemoglobin 7.4 Hematocrit 23.0 Mean Corpuscular Volume 69.8 Mean Corpuscular Hemoglobin 22.4 Mean Corpuscular Hemoglobin Concent 32.0 Red Cell Distribution Width 17.9 Platelet Count 291 Mean Platelet Volume 8.4 Neutrophils (%) (Auto) 84.6 Lymphocytes (%) (Auto) 5.7 Monocytes (%) (Auto) 8.8 Eosinophils (%) (Auto) 0.4 Basophils (%) (Auto) 0.5 Neutrophils # (Auto) 17.8 Lymphocytes # (Auto) 1.2 Monocytes # (Auto) 1.9 Eosinophils # (Auto) 0.1 Basophils # (Auto) 0.1 CBC Comment DIFF FINAL Differential Comment Activated Partial Thromboplast Time 77.9 57.3 Blood Urea Nitrogen 10 Creatinine 0.79 Random Glucose 119 Total Protein 6.8 Albumin 2.4 Calcium Level 8.7 Phosphorus Level 4.3 Magnesium Level 2.1 Alkaline Phosphatase 113 Aspartate Amino Transf (AST/SGOT) 17 Alanine Aminotransferase (ALT/SGPT) 11 Total Bilirubin 0.7 Sodium Level 134 Potassium Level 4.4 Chloride Level 99 Carbon Dioxide Level 29.3 Anion Gap 6 Estimat Glomerular Filtration Rate 83 Date/Time Source Procedure Growth Status 09/09/17 05:50 Blood Peripheral Aerobic Blood Culture Pending Received 09/09/17 05:50 Blood Peripheral Anaerobic Blood Culture Pending Received 09/02/17 21:00 Stool Stool Stool Occult Blood (DONNY) - Final HEMOCCULT NEGATIVE Complete 09/08/17 21:50 Sputum Expectorated Sputum Gram Stain - Final Resulted 09/08/17 21:50 Sputum Expectorated Sputum Sputum Culture Pending Resulted 08/31/17 22:30 Urine Suprapubic Urine Urine Culture - Final NO GROWTH IN 48 HOURS. Complete Result Diagram: 09/09/17 0500 09/09/17 0500 Imaging Last Impressions Head CT 09/08/17 0000 Signed Impressions: Service Date/Time: Friday, September 08, 2017 10:22 - CONCLUSION: 1. Focal area of decreased density involving the right parietal lobe. As a new finding from the prior exam. This could relate to a small infarct. MRI of the brain with gadolinium suggested to further evaluate. 2. Small lacunar infarction involving the left centrum semiovale. Ananth Ponce Jr., MD CT Angiography 09/08/17 0000 Signed Impressions: Service Date/Time: Friday, September 08, 2017 10:28 - CONCLUSION: There extensive pulmonary emboli bilaterally. There is near complete cut off of the right lower lobe pulmonary artery. Prominent filling defects on the left as well. These findings were relayed to Dr. Dominguez immediately at the completion of the study. Scattered pulmonary infiltrates, small pleural effusion and extensive mediastinal lymphadenopathy as described above. Karsten Crowder MD Brain MRI 09/08/17 0000 Signed Impressions: Service Date/Time: Friday, September 08, 2017 18:04 - CONCLUSION: Deterioration in the appearance of the scan. At least 3 focal areas of abnormal contrast enhancement are present scattered to in both hemispheres. Given the history this most likely represents developing areas cerebritis. Exam is compromised by an uncooperative patient and motion artifact. These 2 factors make detection of other abnormalities such as cortical cephalitis and meningitis difficult to exclude. Cannot exclude hemorrhagic lesions as well. There is no mass effect evident. Alex Monahan MD Chest X-Ray 09/06/17 0600 Signed Impressions: Service Date/Time: September 03:05 - CONCLUSION: 1. Stable patchy bilateral lower lung zone airspace disease. 2. No significant interval change. Luis Leija MD Chest CT 09/03/17 0000 Signed Impressions: Service Date/Time: Sunday, September 03, 2017 12:41 - CONCLUSION: 1. There are at least 5 pulmonary nodules present bilaterally with the largest measuring 19 mm. None demonstrate cavitation but it is possible that these represent septic emboli. Suggest followup to assess for change. 2. Splenomegaly with subtle wedge-shaped areas of low-density in the mid spleen which could represent infarcts. 3. Mild cardiomegaly in this patient post aortic valve replacement. Low density of the cardiac blood pool suggests anemia. Adalid Galo MD Aorta w/Runoff CTA 09/02/17 0000 Signed Impressions: Service Date/Time: Saturday, September 02, 2017 12:47 - CONCLUSION: Left renal cortical infarction. 5-6 cm length total occlusion of the left superficial femoral artery in the proximal thigh. Nodular parenchymal opacities in the lung bases bilaterally See above discussion. Adalid Dallas MD Renal Ultrasound 09/01/17 0000 Signed Impressions: Service Date/Time: Friday, September 01, 2017 10:53 - CONCLUSION: 1. No evidence of hydronephrosis. 2. Thickening of the urinary bladder wall a 1.1 cm. 3. Prominent splenomegaly. Baldemar Pineda MD Breast Ultrasound 09/01/17 0000 Signed Impressions: Service Date/Time: Friday, September 01, 2017 10:48 - CONCLUSION: Negative targeted right breast ultrasound examination. Adalid Haney MD Lower Extremity Ultrasound 08/31/17 0000 Signed Impressions: Service Date/Time: Thursday, August 31, 2017 21:22 - CONCLUSION: 1. No sonographic evidence for lower extremity DVT. 2. Incidental note of bilateral inguinal adenopathy with the largest on the right measuring 3.3 cm and the largest on the left measuring 2.6 cm. This finding is nonspecific but is typically reactive in etiology. Luis Leija MD Course Patient remains in critical condition in the ICU Assessment and Plan Problem List: (1) Congestive heart failure due to valvular disease ICD Codes: I50.9 - Heart failure, unspecified; I38 - Endocarditis, valve unspecified Status: Acute (2) Tricuspid regurgitation ICD Codes: I07.1 - Rheumatic tricuspid insufficiency Status: Acute (3) Polysubstance abuse ICD Codes: F19.10 - Other psychoactive substance abuse, uncomplicated Status: Chronic (4) Prosthetic valve endocarditis ICD Codes: T82.6XXA - Infection and inflammatory reaction due to cardiac valve prosthesis, initial encounter Status: Acute Assessment and Plan 36 y/o female with ongoing IV drug use s/p AVR and REDO AVR in 2009 and 2015 respectively. She now has recurrent endocarditis from recent IV drug use involving the tricuspid and prosthetic aortic valves. Her previous cardiac surgery procedures were performed in [place]. STS Risk as follows: Risk Model and Variables - STS Adult Cardiac Surgery Database Version 2.81 RISK SCORES About the STS Risk Calculator Procedure: AV Replacement Risk of Mortality: 20.15% Morbidity or Mortality: 59.73% Long Length of Stay: 52.286% Short Length of Stay: 4.188% Permanent Stroke: 2.242% Prolonged Ventilation: 53.515% DSW Infection: 0.351% Renal Failure: 14.322% Reoperation: 19.653% This risk assessment does not take into account her need for tricuspid valve replacement. She is inoperable. Given her ongoing drug use despite 2 prior AVRs, she is unlikely to benefit from further cardiac surgery. Her prognosis is poor and she is unlikely to survive. Consider Palliative Care consultation. Problem Qualifiers (1) Endocarditis: Qualified Codes: I33.0 - Acute and subacute infective endocarditis (2) Tricuspid regurgitation: Qualified Codes: I36.1 - Nonrheumatic tricuspid (valve) insufficiency (3) Prosthetic valve endocarditis: Qualified Codes: T82.6XXA - Infection and inflammatory reaction due to cardiac valve prosthesis, initial encounter Janina Bains MD Sep 09, 2017 12:04
[2017-09-09] MEDS: ACETAMINOPHEN/HYDROcodone 325 MG/10 MG TAB PO PRN ×2 (12:37→20:25)
--- NOTE | 2017-09-09 14:57 | HHI.CCPN ---
Subjective Remarks/Hospital Course 36-year-old female that presents to the ED for evaluation of shortness of breath and swelling. 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 Patient initially did not mention to anybody that she was doing drugs but she did tell me that she injected herself about 4 days ago. She uses Dilaudid. She states that she's been having fevers. Patient is somewhat somnolent and hard to assess she doesn't really provide much information. Family members at the bedside and he provides more information about the heart. Per patient she'll he takes 2 medications. Patient asked if she is taking any antibiotics and she said yes but when I ask her what kind is she is taking currently she states that she has not been on antibiotics for some time. Patient apparently does follow with a local receiver but she cannot tell me the name of it. She states that she's been having swelling to her legs for the past month. She denies any recent travel or injury. No other medical issues at this time. No allergies to medication. 09/01: remains critical on Dopamine 10 mcg/ min. Appears ill. Limited bedside echo did not show any large vegetation, but exam was limited, tricuspid and aortic valve not well visualized. Also states that had right breast abscess 2 months ago, drained by herself. Now may have abscess vs scar tissue. Injects upper arm and bilateral breasts. US of right breast ordered 09/02: Remains on 3 mcg/min of Levophed. Complaints of severe left lower extremity pain. Erythematous purpuric purple discoloration of the left lower anterior segment left dorsum of the foot with cyanotic nailbeds. Weak DP pulses+ . 2D Echo failed to reveal definite vegetation. Will consider RACHEL 09/03: Continues to be on Levophed 3 mcg/min, remains critical. We are left lower extremity pain but slightly better. Currently on heparin not therapeutic yet. CTA with runoff showed Left renal cortical infarction. 5-6 cm length total occlusion of the left superficial femoral artery in the proximal thigh but good distal opacification. Dr. Palacios recommended IV heparin no surgical intervention at this time. Patient is still at high risk for further embolic episodes. Blood cultures growing strep viridans. Also patient complains about epigastric and left-sided abdominal pain and left-sided chest pain which is more pleuritic. Pain is severe on deep inspiration 09/04: Resting in bed in no acute distress. Dopplerable lower extremity pulses noted. Remains on heparin drip. Vascular surgery continues to follow. 09/05: Resting in bed in mild respiratory distress. Continues to cough. Nonproductive. Left lower extremity leg improved. Reviewed vascular surgeries note. Likely will require long-term medical regulation post hospitalization 09/06: Improve respiratory status today. Pain in left lower extremity much improved. Tolerating diet. 09/07: Currently on nasal cannula. Switch to Argatroban overnight by hematology. Okayed with vascular surgery. Pain in left lower extremity slowly improving day by day. Subjective 09/08: Resting in bed in some mild respiratory distress. Complaining of pleuritic chest pain specifically in the right flank region. Worse with deep inspiration. Reproducible with palpation. CT brain/CT pulmonary angiogram ordered. No neurological deficits noted on examination. 09/09: CT pulmonary angiogram revealed emboli bilateral lower lobes as well as views of abnormal contrast bilateral cerebral hemispheres. Patient complains still of pleuritic chest pain. Frequency increased on Lortab. CTS in for evaluation patient deemed inoperable. Palliative care consulted appreciate recommendations. Objective Vital Signs Date Time Temp Pulse Resp B/P (MAP) Pulse Ox O2 Delivery O2 Flow Rate FiO2 09/09/17 14:20 38 09/09/17 10:00 120 09/09/17 09:49 100 Venturi Mask 35 09/09/17 08:00 99.8 97/67 (77) 09/09/17 07:00 3.00 Intake and Output 09/09/17 09/09/17 09/09/17 07:59 15:59 23:59 Intake Total 1300.0 ml 100 ml Output Total 1000 ml Balance 300.0 ml 100 ml Result Diagram: 09/09/17 0500 09/09/17 0500 Imaging Last Impressions Head CT 09/08/17 0000 Signed Impressions: Service Date/Time: Friday, September 08, 2017 10:22 - CONCLUSION: 1. Focal area of decreased density involving the right parietal lobe. As a new finding from the prior exam. This could relate to a small infarct. MRI of the brain with gadolinium suggested to further evaluate. 2. Small lacunar infarction involving the left centrum semiovale. Ananth Ponce Jr., MD CT Angiography 09/08/17 0000 Signed Impressions: Service Date/Time: Friday, September 08, 2017 10:28 - CONCLUSION: There extensive pulmonary emboli bilaterally. There is near complete cut off of the right lower lobe pulmonary artery. Prominent filling defects on the left as well. These findings were relayed to Dr. Dominguez immediately at the completion of the study. Scattered pulmonary infiltrates, small pleural effusion and extensive mediastinal lymphadenopathy as described above. Karsten Crowder MD Brain MRI 09/08/17 0000 Signed Impressions: Service Date/Time: Friday, September 08, 2017 18:04 - CONCLUSION: Deterioration in the appearance of the scan. At least 3 focal areas of abnormal contrast enhancement are present scattered to in both hemispheres. Given the history this most likely represents developing areas cerebritis. Exam is compromised by an uncooperative patient and motion artifact. These 2 factors make detection of other abnormalities such as cortical cephalitis and meningitis difficult to exclude. Cannot exclude hemorrhagic lesions as well. There is no mass effect evident. Alex Monahan MD Chest X-Ray 09/06/17 0600 Signed Impressions: Service Date/Time: September 03:05 - CONCLUSION: 1. Stable patchy bilateral lower lung zone airspace disease. 2. No significant interval change. Luis Leija MD Chest CT 09/03/17 0000 Signed Impressions: Service Date/Time: Sunday, September 03, 2017 12:41 - CONCLUSION: 1. There are at least 5 pulmonary nodules present bilaterally with the largest measuring 19 mm. None demonstrate cavitation but it is possible that these represent septic emboli. Suggest followup to assess for change. 2. Splenomegaly with subtle wedge-shaped areas of low-density in the mid spleen which could represent infarcts. 3. Mild cardiomegaly in this patient post aortic valve replacement. Low density of the cardiac blood pool suggests anemia. Adalid Galo MD Aorta w/Runoff CTA 09/02/17 0000 Signed Impressions: Service Date/Time: Saturday, September 02, 2017 12:47 - CONCLUSION: Left renal cortical infarction. 5-6 cm length total occlusion of the left superficial femoral artery in the proximal thigh. Nodular parenchymal opacities in the lung bases bilaterally See above discussion. Adalid Dallas MD Renal Ultrasound 09/01/17 0000 Signed Impressions: Service Date/Time: Friday, September 01, 2017 10:53 - CONCLUSION: 1. No evidence of hydronephrosis. 2. Thickening of the urinary bladder wall a 1.1 cm. 3. Prominent splenomegaly. Baldemar Pineda MD Breast Ultrasound 09/01/17 0000 Signed Impressions: Service Date/Time: Friday, September 01, 2017 10:48 - CONCLUSION: Negative targeted right breast ultrasound examination. Adalid Haney MD Lower Extremity Ultrasound 08/31/17 0000 Signed Impressions: Service Date/Time: Thursday, August 31, 2017 21:22 - CONCLUSION: 1. No sonographic evidence for lower extremity DVT. 2. Incidental note of bilateral inguinal adenopathy with the largest on the right measuring 3.3 cm and the largest on the left measuring 2.6 cm. This finding is nonspecific but is typically reactive in etiology. Luis Leija MD Last Impressions Chest X-Ray 09/06/17 0600 Signed Impressions: Service Date/Time: September 03:05 - CONCLUSION: 1. Stable patchy bilateral lower lung zone airspace disease. 2. No significant interval change. Luis Leija MD Chest CT 09/03/17 0000 Signed Impressions: Service Date/Time: Sunday, September 03, 2017 12:41 - CONCLUSION: 1. There are at least 5 pulmonary nodules present bilaterally with the largest measuring 19 mm. None demonstrate cavitation but it is possible that these represent septic emboli. Suggest followup to assess for change. 2. Splenomegaly with subtle wedge-shaped areas of low-density in the mid spleen which could represent infarcts. 3. Mild cardiomegaly in this patient post aortic valve replacement. Low density of the cardiac blood pool suggests anemia. Adalid Galo MD Aorta w/Runoff CTA 09/02/17 0000 Signed Impressions: Service Date/Time: Saturday, September 02, 2017 12:47 - CONCLUSION: Left renal cortical infarction. 5-6 cm length total occlusion of the left superficial femoral artery in the proximal thigh. Nodular parenchymal opacities in the lung bases bilaterally See above discussion. Adalid Dallas MD Renal Ultrasound 09/01/17 0000 Signed Impressions: Service Date/Time: Friday, September 01, 2017 10:53 - CONCLUSION: 1. No evidence of hydronephrosis. 2. Thickening of the urinary bladder wall a 1.1 cm. 3. Prominent splenomegaly. Baldemar Pineda MD Breast Ultrasound 09/01/17 0000 Signed Impressions: Service Date/Time: Friday, September 01, 2017 10:48 - CONCLUSION: Negative targeted right breast ultrasound examination. Adalid Haney MD Lower Extremity Ultrasound 08/31/17 0000 Signed Impressions: Service Date/Time: Thursday, August 31, 2017 21:22 - CONCLUSION: 1. No sonographic evidence for lower extremity DVT. 2. Incidental note of bilateral inguinal adenopathy with the largest on the right measuring 3.3 cm and the largest on the left measuring 2.6 cm. This finding is nonspecific but is typically reactive in etiology. Luis Leija MD Objective Remarks GENERAL: 36-year-old female resting in bed in no acute distress SKIN: Warm and dry. Patient does appear to have puncture wounds from where she states been injecting recently in her arms, bilateral upper breast. HEAD: Atraumatic. Normocephalic. EYES: Pupils equal and round. No scleral icterus. No injection or drainage. ENT: No nasal bleeding or discharge. Mucous membranes pink and moist. NECK: Trachea midline. No JVD. CHEST: Bilateral upper breast has puncture wounds from injection. Pain to point palpation left upper thorax CARDIOVASCULAR: 2/6 pansystolic murmurat the left lower sternal border. RESPIRATORY: Few fine crackles present bilaterally. No wheezing GASTROINTESTINAL: Abdomen soft, tender to deep palpation. No guarding rigidity. Positive hepatosplenomegaly MUSCULOSKELETAL: 2+ pitting edema to the lower extremities. Erythematous purpuric rash of the left lower extremity anterior campbell and foot, punctate lesion plantar right great toe. Left leg extremely tender below the left knee. Dopplerable DP pulses bilaterally NEUROLOGICAL: Awake and alert. Motor grossly within normal limits. Five out of 5 muscle strength in the arms and legs. Normal speech. Date of Insertion: Sep 01, 2017 Line: Central Venous Catheter Side: Right Location: Internal, Jugular A/P Assessment and Plan Neuro/Psych: IVDU -hydromorphone History of THC use - Continue pain control hydrocodone/acetaminophen 10/325 1 tablet every 4 hours as needed pain 1 through 5 with hydromorphone 2 mg IV every 4 hours as needed pain 6-10 (patient has severe pain from ischemic leg) - Acetaminophen 650 mg p.o. 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 - Now with strep viridans in blood cultures 08/31 - Broad-spectrum antibiotic with ampicillin and gentamicin. 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 Holloway following - Anticoagulation with argatroban gtt at 0.75 mcg/kg/min - Infectious disease Dr. Sloan - Extensive counselling given about IP Rehab -CTS evaluation Dr. Bains-no surgical intervention planned Microbiology 09/04 -blood cultures 2 -no growth 08/31 -urine culture -no growth 08/31 -blood cultures 2 -strep viridians Resp: Acute respiratory insufficiency 5 pulmonary nodules likely septic emboli -Nasal cannula to keep oxygen saturation above 92% currently on 4 L -Incentives spirometry while awake -As needed albuterol aerosols every 2 [address] Dyspnea - CT thorax revealed 5 bilateral pulmonary lesions/nodules largest which is 19 mm. No cavitation noted but likely septic emboli. CT pulmonary angiogram 09/08-pulmonary emboli bilateral lower lobes GI: Hepatitis C Splenic infarction Hypoalbuminemia - Heart healthy diet -Famotidine for GI prophylaxis -Docusate sodium/senna 1 tablet twice daily for bowel regimen Renal/: Acute on chronic kidney disease Left renal cortical infarction - Acute renal failure secondary to ATN and dehydration - CT imaging revealed left renal cortical infarction - Renal ultrasound-thickening of urinary bladder Endo: Sliding scale insulin if indicated to maintain euglycemia Heme: Microcytic anemia Leukocytosis - Monitor CBC CMP and coags -Does not meet transfusion threshold at this time FEN: Hyponatremia Replace electrolytes as clinically indicated. MSK: History of right breast abscess Elevated BMI - Ultrasound of the left lower extremity negative for DVT - Right breast ultrasound negative for abscess -Weight loss encouraged DVT GI prophylaxis - argatroban gtt - famotidine Level 3 follow-up CT pulmonary angiogram revealed bilateral pulmonary emboli nature unclear. Right lower lobe occlusion. CT brain revealed right parietal lacunar infarct possibly with infarct left centrum semiovale possibly septic emboli. Versus thrombus. MRI brain ordered Stat echocardiogram ordered. This revealed Aortic prosthesis with prolapse and possible vegetation. The estimated pulmonary arterial pressure is 65.7 mmHg. Tricuspid valve prosthesis Mobile vegetation seen on the tricuspid valve. 2x4 cm. Discussed with infectious disease. Recommended vancomycin and possible RACHEL early next week Patient is currently on therapeutic argatroban. Physician Surekha Frazier MD Sep 09, 2017 14:57
[2017-09-09] MEDS ORDERED: PHARMACY ORDERED LAB ONE (17:45)
[2017-09-10] VITALS (20 sets, daily range): BP systolic 86–110; BP diastolic 55–71; PULSE 102–122; RESP 25–32; TEMP 98.2–101.5; O2SAT 94–100
[2017-09-10] MEDS: AMPICILLIN INJ 2,000 MG in SODIUM CHLORIDE 0.9% INJ 100 ML IV SCH ×4 (01:05→22:10)
[2017-09-10] MEDS: ACETAMINOPHEN/HYDROcodone 325 MG/10 MG TAB PO PRN ×2 (01:05→04:52)
[2017-09-10] MEDS: HYDROmorphone HCL PF 2 MG/ML VIAL IV PUSH PRN ×6 (01:06→22:12)
[2017-09-10] MEDS: VANCOMYCIN INJ 1,750 MG in SODIUM CHLORID 0.9% 500 ML INJ 500 ML IV SCH ×2 (01:19→16:03)
[2017-09-10] MEDS: SODIUM CHLORIDE 0.9% FLUSH 10 ML FLUSH IV FLUSH SCH ×3 (01:20→22:10)
[2017-09-10] MEDS: CHLORHEXIDINE GLUCONATE 2 % 1 PACK (2 CLOTHS) TOP SCH (03:05)
[2017-09-10] MEDS: GENTAMICIN INJ 100 MG in SODIUM CHLORIDE 0.9% INJ 100 ML IV SCH ×3 (04:51→22:10)
--- NOTE | 2017-09-10 05:13 | RADRPT ---
EXAM DATE/TIME: 09/10/2017 03:52 [facility] COMPARISON: CHEST SINGLE AP, September 06, 2017, 3:05. INDICATIONS : Shortness of breath, possible pulmonary. MEDICAL HISTORY : Cardiovascular disease. Congestive heart failure. Hepatitis C. SURGICAL HISTORY : AVR ENCOUNTER: Subsequent ACUITY: 2 weeks PAIN SCORE: 0/10 LOCATION: Bilateral chest FINDINGS: Portable AP view of the chest demonstrates mildly enlarged cardiac silhouette in this patient post me josefa sternotomy. Right IJ line distal tip is in the right atrium. Lungs are underinflated and there i s atelectasis at the left lung base. There is a small right basilar pleural-parenchymal opacity. No p neumothorax is seen. The bones and soft tissues demonstrate no acute finding. CONCLUSION: There is a small to moderate size right pleural effusion with associated volume loss and/or airspace consolidation. The pleural effusion has increased from the prior examination. Adalid Galo MD on September 10, 2017 at 5:10 Board Certified Radiologist. This report was verified electronically.
[2017-09-10 05:40] LABS: AUTOMATED NEUTROPHIL # 15.8 TH/MM3 (1.8-7.7); BASOPHIL # 0.1 TH/MM3 (0-0.2); BASOPHIL % 0.7 % (0.0-2.0); EOSINOPHIL # 0.1 TH/MM3 (0-0.4); EOSINOPHIL % 0.5 % (0.0-4.0); LYMPH % 5.8 % (9.0-44.0); LYMPHOCYTE # 1.1 TH/MM3 (1.0-4.8); MEAN CELL VOLUME 70.7 FL (80.0-100.0); MEAN CORPUSCULAR HEMOGLOBIN 22.7 PG (27.0-34.0); MEAN CORPUSCULAR HGB CONC 32.1 % (32.0-36.0); MEAN PLATELET VOLUME 8.2 FL (7.0-11.0); MONO % 9.6 % (0.0-8.0); MONOCYTE # 1.8 TH/MM3 (0-0.9); NEUT % 83.4 % (16.0-70.0); PLATELET COUNT 315 TH/MM3 (150-450); RED BLOOD COUNT 2.91 MIL/MM3 (4.00-5.30); RED CELL DISTRIBUTION WIDTH 18.5 % (11.6-17.2)
[2017-09-10 06:08] LABS: HEMOGLOBIN 6.6 GM/DL (11.6-15.3)
[2017-09-10 06:09] LABS: HEMATOCRIT 20.6 % (35.0-46.0)
[2017-09-10 06:12] LABS: BICARBONATE 28.3 MEQ/L (21.0-32.0); CALCIUM 8.2 MG/DL (8.5-10.1); CREATININE 0.85 MG/DL (0.50-1.00); PHOSPHORUS 3.9 MG/DL (2.5-4.9)
--- NOTE | 2017-09-10 08:00 | PD.VS.PN ---
Subjective Subjective/Hospital Course Improved L LE appearance and less subjective discomfort Objective Vitals/I&O Date Time Temp Pulse Resp B/P (MAP) Pulse Ox O2 Delivery O2 Flow Rate FiO2 09/10/17 06:00 106 09/10/17 04:00 110 09/10/17 04:00 98.9 110 30 97/67 (77) 97 09/10/17 02:00 109 09/10/17 00:00 114 09/10/17 00:00 98.9 114 28 86/59 (68) 94 09/09/17 22:00 124 09/09/17 20:33 96 Nasal Cannula 3.00 09/09/17 20:00 98.7 124 30 96/68 (77) 97 09/09/17 20:00 124 09/09/17 19:00 98 Nasal Cannula 4.00 09/09/17 18:00 104 09/09/17 16:00 105 09/09/17 16:00 99.1 105 31 96/64 (75) 96 09/09/17 14:20 38 09/09/17 14:00 113 09/09/17 13:37 23 09/09/17 12:00 113 09/09/17 12:00 99.5 113 33 86/62 (70) 98 09/09/17 10:00 120 09/09/17 09:49 100 Venturi Mask 35 09/09/17 08:00 99.8 114 32 97/67 (77) 100 09/09/17 08:00 114 09/10/17 09/10/17 09/10/17 07:00 15:00 23:00 Intake Total 1200.0 ml Output Total 600 ml Balance 600.0 ml Physical Exam motor intact minimal edema skin improved motor intact Laboratory Laboratory Tests Test 09/09/17 10:00 09/09/17 18:15 09/10/17 05:00 Activated Partial Thromboplast Time 57.3 62.3 Vancomycin Level Trough 25.8 White Blood Count 19.0 Red Blood Count 2.91 Hemoglobin 6.6 Hematocrit 20.6 Mean Corpuscular Volume 70.7 Mean Corpuscular Hemoglobin 22.7 Mean Corpuscular Hemoglobin Concent 32.1 Red Cell Distribution Width 18.5 Platelet Count 315 Mean Platelet Volume 8.2 Neutrophils (%) (Auto) 83.4 Lymphocytes (%) (Auto) 5.8 Monocytes (%) (Auto) 9.6 Eosinophils (%) (Auto) 0.5 Basophils (%) (Auto) 0.7 Neutrophils # (Auto) 15.8 Lymphocytes # (Auto) 1.1 Monocytes # (Auto) 1.8 Eosinophils # (Auto) 0.1 Basophils # (Auto) 0.1 CBC Comment DIFF FINAL Differential Comment Blood Urea Nitrogen 10 Creatinine 0.85 Random Glucose 137 Calcium Level 8.2 Phosphorus Level 3.9 Magnesium Level 2.0 Sodium Level 133 Potassium Level 3.8 Chloride Level 98 Carbon Dioxide Level 28.3 Anion Gap 7 Estimat Glomerular Filtration Rate 76 Date/Time Source Procedure Growth Status 09/09/17 05:50 Blood Peripheral Aerobic Blood Culture Pending Received 09/09/17 05:50 Blood Peripheral Anaerobic Blood Culture Pending Received 09/02/17 21:00 Stool Stool Stool Occult Blood (DONNY) - Final HEMOCCULT NEGATIVE Complete 09/08/17 21:50 Sputum Expectorated Sputum Gram Stain - Final Resulted 09/08/17 21:50 Sputum Expectorated Sputum Sputum Culture - Preliminary LIGHT GROWTH NORMAL RESPIRATORY PATRICIA... Resulted 08/31/17 22:30 Urine Suprapubic Urine Urine Culture - Final NO GROWTH IN 48 HOURS. Complete Imaging Last 48 hours Impressions Chest X-Ray 09/10/17 0600 Signed Impressions: Service Date/Time: Sunday, September 10, 2017 03:52 - CONCLUSION: There is a small to moderate size right pleural effusion with associated volume loss and/or airspace consolidation. The pleural effusion has increased from the prior examination. Adalid Galo MD Assessment and Plan Plan Likely embolic from BE needs aggressive anticoagulation but defer to primary service/hematology of choice of agents antibiotics per primary service continue neurovasc checks Discharge Planning on anticoagulation but anytime from vascular surgery standpoint ok to WBAT Will arrange f/u in 2-3 weeks with Jerald Dorantes MD Sep 10, 2017 08:00
[2017-09-10] MEDS: DOCUSATE SODIUM 50 MG/SENNA 8.6 MG TAB PO SCH ×2 (09:00→21:00)
[2017-09-10] MEDS: FAMOTIDINE 20 MG TAB PO SCH ×2 (09:27→22:10)
[2017-09-10 09:58] LABS: AUTOMATED NEUTROPHIL # 14.8 TH/MM3 (1.8-7.7); BASOPHIL # 0.1 TH/MM3 (0-0.2); BASOPHIL % 0.5 % (0.0-2.0); EOSINOPHIL # 0.1 TH/MM3 (0-0.4); EOSINOPHIL % 0.6 % (0.0-4.0); LYMPH % 5.1 % (9.0-44.0); LYMPHOCYTE # 0.9 TH/MM3 (1.0-4.8); MEAN CELL VOLUME 70.7 FL (80.0-100.0); MEAN CORPUSCULAR HEMOGLOBIN 22.8 PG (27.0-34.0); MEAN CORPUSCULAR HGB CONC 32.2 % (32.0-36.0); MEAN PLATELET VOLUME 8.3 FL (7.0-11.0); MONO % 5.8 % (0.0-8.0); PLATELET COUNT 313 TH/MM3 (150-450); RED BLOOD COUNT 2.89 MIL/MM3 (4.00-5.30); RED CELL DISTRIBUTION WIDTH 18.8 % (11.6-17.2); WHITE BLOOD COUNT 16.8 TH/MM3 (4.0-11.0)
[2017-09-10 10:05] LABS: HEMATOCRIT 20.5 % (35.0-46.0); HEMOGLOBIN 6.6 GM/DL (11.6-15.3)
--- NOTE | 2017-09-10 10:21 | PD.CONS ---
Consult Service Palliative Care . Consult Requested By Dr. Salter . Primary Care Physician Adalid Herr MD . Reason for Consultation a. To assist with evaluation and management of symptoms including: chest pain, dyspnea. b. To assist medical decision maker(s) with: better understanding of current medical conditions; weighing benefits/burdens of medical treatment options; making medical treatment decisions. . HPI History of Present Illness Miss Segal is a 36 year old female with past medical history of endocarditis, IV drug use, CHF, pulmonary embolism, pneumonia and anxiety. Patient has a history of arteritis status post valve replacement in January 2016 at [facility]. Patient was on [facility] admitted on 02/15/17 and revoked 02/27/17. In review of Hospice notes patient elected FULL CODE indicating she wanted life support for 2 weeks. No written advanced directives completed, the family indicates patient may have completed at [facility]. Hospice notes indicate patient wanted to name her stepfather Karsten as healthcare surrogate though documentation was never completed. Patient was previously hospitalized at [facility] in October 2016 for tricuspid prosthetic valve endocarditis, [place] parapsolosis (September 20 thru October 21) , Streptococci (treated with combination Diflucan and Micafungin and ambisionme for 2 weeks). She was admitted to [facility] 02/26/17-04/12/17 for sepsis, recurrent MSSA endocarditis, known to palliative care service goals remained aggressive during this admission. She was discharged home with family. Patient presented to [facility] on 08/31/17 with shortness of breath and swelling. She admitted to IVDU (dilaudid) 4 days prior to presentation while in the ED. She reported fever. She also stated she had LE edema for 4 weeks. Uncertain if she was taking oral antibiotics or not as previously prescribed. Initial findings included: * WBC 18.8, hemoglobin 8.3, hematocrit 25.2, platelet count 119, neutrophil 88.7 % * Sodium 125, potassium 3.9, chloride 91, carbon dioxide 21.8, BUN 57, creatinine 4.50, glucose 105 * Troponin 0 0.26 * Total Protein 6.3, Albumin 2.5 * Calcium Level 8.1, Magnesium Level 1.9, * Alkaline Phosphatase 125, AST 24, ALT LESS THAN 6, Total Bilirubin 0.9 * CXR - no acute cardiopulmonary disease * EKG * PT 13.1, INR 1.3, APTT 32 * Toxicology screen positive opiates. * Urinalysis negative * Lower extremity ultra sound - negative for DVT, incidental note of bilateral inguinal adenopathy largest on the right measuring 3.3 cm left measuring 2.6 cm. * Renal ultrasound no evidence of hydronephrosis, thickening of the urinary bladder wall 1.1 cm, prominent splenomegaly. Patient was admitted to ICU with sepsis, CHF, endocarditis, acute renal failure. Additional tests since admission: * aorta with runoff - revealed left renal cortical infarction 5-6cm length total occlusion of the left superficial femoral artery in the proximal thigh, nodular parenchymal opacities in the lung bases bilaterally. * CT head - focal area of decreased density involving the right parietal lobe, could be small infarct, MRI recommended, small lacunar infarction involving the left centrum semiovale. * MRI brain - revealed deterioration in the appearance of the scan, 3 focal areas of abnormal contrast enhancement scattered in both hemispheres, likely represents developing areas of cerebritis, exam is compromised by uncooperative patient and motion artifact -2 factors making detection of other abnormality such as cortical cephalitis and meningitis difficult to exclude, cannot exclude hemorrhagic lesions, no mass-effect evident. * CTA - extensive bilateral pulmonary emboli, near cut off of the right lower lobe pulmonary artery, scattered pulmonary infiltrates, small pleural effusions and extensive mediastinal adenopathy. * Echocardiogram - EF 50 - 55%, severe tricuspid regurgitation, aortic prosthesis with prolapse and possible vegetation, tricuspid valve prosthesis mobile vegetation seen on tricuspid valve 2 x 4 cm, small pericardial effusion. Infectious disease, Dr. Sloan was consulted for sepsis, endocarditis - notes indicate poor prognosis in this patient with repeated prosthetic valve endocarditis. On vancomycin ampicillin and gentamicin. Patient found to have cold left foot. Vascular surgery, Dr. Bains was consulted patient is not a candidate for surgery recommended conservative management with anticoagulation. Dr. Myra Silva was consulted to evaluate for anticoagulation recommendations as patient is heparin refractory. Dr. 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 Patient was placed on argatroban. Palliative care is consulted to assist with further clarification of treatment goals. . Function/Cognitive Trajectory Was living at home prior to admission with increased shortness of breath and edema recently. . 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 Past Surgical History Aortic valve replacement 2010 Redo aortic valve replacement 12/2015 - Jose Left wrist cyst removed . Reported Medications Reported Meds & Active Scripts Active Active Prescriptions or Reported Medications Unobtainable Current Medications Medications (Trade) Dose Ordered Sig/Jessica Route Start Time Stop Time Status Last Admin (NS Flush) 2 ml UNSCH PRN IV FLUSH 08/31/17 22:00 (NS Flush) 2 ml BID IV FLUSH 09/01/17 09:00 09/10/17 09:27 (Tylenol) 650 mg Q6H PRN PO 08/31/17 22:00 09/08/17 21:31 (Zofran Inj) 4 mg Q6H PRN IV PUSH 08/31/17 22:00 (Restoril) 15 mg HS PRN PO 08/31/17 22:00 09/09/17 00:27 Miscellaneous Information 1 Q361D XX 08/31/17 22:00 (Chlorhexidine 2% Cloth) Taper DAILY@04 TOP 09/01/17 04:00 08/28/18 03:59 09/10/17 03:05 (Chlorhexidine 2% Cloth) 3 pack UNSCH PRN TOP 08/31/17 22:00 (Armida-Colace) 1 tab BID PO 09/01/17 09:00 09/09/17 20:25 (Milk Of Magnesia Liq) 30 ml Q12H PRN PO 08/31/17 22:00 (Senokot) 17.2 mg Q12H PRN PO 08/31/17 22:00 (Dulcolax Supp) 10 mg DAILY PRN RECTAL 08/31/17 22:00 (Lactulose Liq) 30 ml DAILY PRN PO 08/31/17 22:00 Ampicillin Sodium 2000 mg/Sodium Chloride 100 ml @ 400 mls/hr Q6H IV 09/01/17 14:00 09/10/17 09:26 (Dilaudid Pf Inj) 2 mg Q4H PRN IV PUSH 09/02/17 15:00 09/10/17 09:27 (Imodium) 2 mg Q4H PRN PO 09/03/17 16:15 09/05/17 14:32 Gentamicin Sulfate 100 mg/ Sodium Chloride 102.5 ml @ 100 mls/hr Q8H IV 09/03/17 21:00 09/10/17 04:51 (Albuterol Neb) 2.5 mg Q2HR NEB PRN NEB 09/04/17 11:30 09/07/17 02:47 (Pepcid) 20 mg BID PO 09/04/17 21:00 09/10/17 09:27 Argatroban 250 mg/ Sodium Chloride 252.5 ml @ 3.11 mls/hr TITRATE PRN IV 09/06/17 19:15 09/08/17 18:58 Pharmacy Profile Note 0 ml @ 0 mls/hr UNSCH OTHER 09/08/17 16:45 ([place] 10-325 Mg) 1 tab Q4H PRN PO 09/09/17 15:00 09/10/17 04:52 Vancomycin HCl 1750 mg/Sodium Chloride 517.5 ml @ 260 mls/hr Q12H IV 09/10/17 02:00 09/10/17 01:19 Miscellaneous Information SPECIFIC LAB TO BE ... ONCE ONCE .XX 09/11/17 13:45 09/11/17 13:46 Family History Mother alive. Has 2 sons (11 and 8). . Substance Use Tobacco: Smokes daily. Alcohol: Drinks 3-5 alcoholic beverages daily. Prescription med abuse: Has prescription meds, uses more than prescribed on a regular basis. Illicits: IV drug abuse and Marijuana. Has used drugs since 19 years of age. . Psychosocial History From [place]. High school graduate. No college. IV drug use since she was 19. Recently worked at [employer]. Single, has a boyfriend Dc. Has 2 juvenile children, ages 11 (pts mother has had custody of him since ) and 8 lives with patient (his biologic father not involved, her boyfriend Dc has been caring for the child and is planning to get temporary custody). She is supported by her mother, Fany (in ), her [id number], Karl (lives local) and boyfriend, Dc Lives local. . Spiritual/Cultural Factors Unknown. . Living Will: Never completed Health Care Surrogate: Never completed Durable Power of [place]: Never completed Health Care Surrogate(s): No written advanced directives, patient refused to complete advanced directives during last admission. Patient a single. Children are juvenile. In the absence of written advanced directives, according to [place] [facility] proxy decision-making falls to a parent. . Today's verbally stated goals: Patient desires continued aggressive care including FULL CODE. . Family/friends goals: Mother supports patient wishes, understanding she may have to make decisions for patient in the coming days. . Ethical and Legal Issues No written advanced directives, patient refused to complete advanced directives during last admission. Patient a single. Children are juvenile. In the absence of written advanced directives, according to [place] statutes health care proxy decision-making falls to a parent. . Physical Exam Vital Signs Date Time Temp Pulse Resp B/P (MAP) Pulse Ox O2 Delivery O2 Flow Rate FiO2 09/10/17 09:02 97 Nasal Cannula 3.00 09/10/17 06:00 106 09/10/17 04:00 110 09/10/17 04:00 98.9 110 30 97/67 (77) 97 09/10/17 02:00 109 09/10/17 00:00 114 09/10/17 00:00 98.9 114 28 86/59 (68) 94 09/09/17 22:00 124 09/09/17 20:33 96 Nasal Cannula 3.00 09/09/17 20:00 98.7 124 30 96/68 (77) 97 09/09/17 20:00 124 09/09/17 19:00 98 Nasal Cannula 4.00 09/09/17 18:00 104 09/09/17 16:00 105 09/09/17 16:00 99.1 105 31 96/64 (75) 96 09/09/17 14:20 38 09/09/17 14:00 113 09/09/17 13:37 23 09/09/17 12:00 113 09/09/17 12:00 99.5 113 33 86/62 (70) 98 09/09/17 10:00 120 Exam CONSTITUTIONAL/GENERAL: This is an adequately nourished patient, with mildly labored respirations, worsens with conversation. TUBES/LINES/DRAINS: NC, right IJ central line, Purewick catheter. SKIN: Ecchymoses on extremities. No wounds seen anteriorly. Skin temperature appropriate. Not diaphoretic. HEAD: Atraumatic. Normocephalic. EYES: Pupils equal and round and reactive. ENT: Hearing grossly normal. Nose without bleeding or purulent drainage. Throat without visible erythema, exudates, masses, or lesions. NECK: Trachea midline. Supple, nontender. CARDIOVASCULAR: systolic murmur noted. tachycardic. RESPIRATORY/CHEST: Cough noted. Labored respirations at rest, worsens with conversation. Bilateral course breath sounds. GASTROINTESTINAL: Abdomen soft, rounded, non-tender, nondistended. No guarding. Bowel sounds present. GENITOURINARY: Without palpable bladder distension. Purewick catheter in place. MUSCULOSKELETAL: Extremities with 1+ edema. lesions noted Left foot and LE. LLE tender to light palpation below the knee to foot. LYMPHATICS: No palpable cervical or supraclavicular adenopathy. NEUROLOGICAL: Awake, lethargic. Follows commands. Moves all extremities. PSYCHIATRIC: Calm. + hallucination, saw a bug on her arm during my visit, though knew it wasn't really there. . Diagnostic Tests Laboratory Laboratory Tests Test 09/08/17 03:45 09/08/17 21:50 09/09/17 05:00 09/09/17 10:00 White Blood Count 17.7 TH/MM3 (4.0-11.0) 21.1 TH/MM3 (4.0-11.0) Red Blood Count 3.27 MIL/MM3 (4.00-5.30) 3.30 MIL/MM3 (4.00-5.30) Hemoglobin 7.4 GM/DL (11.6-15.3) 7.4 GM/DL (11.6-15.3) Hematocrit 23.0 % (35.0-46.0) 23.0 % (35.0-46.0) Mean Corpuscular Volume 70.3 FL (80.0-100.0) 69.8 FL (80.0-100.0) Mean Corpuscular Hemoglobin 22.7 PG (27.0-34.0) 22.4 PG (27.0-34.0) Mean Corpuscular Hemoglobin Concent 32.3 % (32.0-36.0) 32.0 % (32.0-36.0) Red Cell Distribution Width 17.9 % (11.6-17.2) 17.9 % (11.6-17.2) Platelet Count 272 TH/MM3 (150-450) 291 TH/MM3 (150-450) Mean Platelet Volume 8.5 FL (7.0-11.0) 8.4 FL (7.0-11.0) Prothrombin Time 21.3 SEC (9.8-11.6) Prothromb Time International Ratio 2.1 RATIO Activated Partial Thromboplast Time 60.2 SEC (24.3-30.1) 77.9 SEC (24.3-30.1) 57.3 SEC (24.3-30.1) Blood Urea Nitrogen 10 MG/DL (7-18) 10 MG/DL (7-18) Creatinine 0.73 MG/DL (0.50-1.00) 0.79 MG/DL (0.50-1.00) Random Glucose 113 MG/DL (74-106) 119 MG/DL (74-106) Calcium Level 8.5 MG/DL (8.5-10.1) 8.7 MG/DL (8.5-10.1) Sodium Level 135 MEQ/L (136-145) 134 MEQ/L (136-145) Potassium Level 4.5 MEQ/L (3.5-5.1) 4.4 MEQ/L (3.5-5.1) Chloride Level 100 MEQ/L (98-107) 99 MEQ/L (98-107) Carbon Dioxide Level 28.2 MEQ/L (21.0-32.0) 29.3 MEQ/L (21.0-32.0) Anion Gap 7 MEQ/L (5-15) 6 MEQ/L (5-15) Estimat Glomerular Filtration Rate 91 ML/MIN (>89) 83 ML/MIN (>89) Urine Opiates Screen POS (NEG) Urine Barbiturates Screen NEG (NEG) Urine Amphetamines Screen NEG (NEG) Urine Benzodiazepines Screen NEG (NEG) Urine Cocaine Screen NEG (NEG) Urine Cannabinoids Screen NEG (NEG) Neutrophils (%) (Auto) 84.6 % (16.0-70.0) Lymphocytes (%) (Auto) 5.7 % (9.0-44.0) Monocytes (%) (Auto) 8.8 % (0.0-8.0) Eosinophils (%) (Auto) 0.4 % (0.0-4.0) Basophils (%) (Auto) 0.5 % (0.0-2.0) Neutrophils # (Auto) 17.8 TH/MM3 (1.8-7.7) Lymphocytes # (Auto) 1.2 TH/MM3 (1.0-4.8) Monocytes # (Auto) 1.9 TH/MM3 (0-0.9) Eosinophils # (Auto) 0.1 TH/MM3 (0-0.4) Basophils # (Auto) 0.1 TH/MM3 (0-0.2) CBC Comment DIFF FINAL Differential Comment Total Protein 6.8 GM/DL (6.4-8.2) Albumin 2.4 GM/DL (3.4-5.0) Phosphorus Level 4.3 MG/DL (2.5-4.9) Magnesium Level 2.1 MG/DL (1.5-2.5) Alkaline Phosphatase 113 U/L (45-117) Aspartate Amino Transf (AST/SGOT) 17 U/L (15-37) Alanine Aminotransferase (ALT/SGPT) 11 U/L (10-53) Total Bilirubin 0.7 MG/DL (0.2-1.0) Test 09/09/17 18:15 09/10/17 05:00 Vancomycin Level Trough 25.8 MCG/ML (5.0-10.0) White Blood Count 19.0 TH/MM3 (4.0-11.0) Red Blood Count 2.91 MIL/MM3 (4.00-5.30) Hemoglobin 6.6 GM/DL (11.6-15.3) Hematocrit 20.6 % (35.0-46.0) Mean Corpuscular Volume 70.7 FL (80.0-100.0) Mean Corpuscular Hemoglobin 22.7 PG (27.0-34.0) Mean Corpuscular Hemoglobin Concent 32.1 % (32.0-36.0) Red Cell Distribution Width 18.5 % (11.6-17.2) Platelet Count 315 TH/MM3 (150-450) Mean Platelet Volume 8.2 FL (7.0-11.0) Neutrophils (%) (Auto) 83.4 % (16.0-70.0) Lymphocytes (%) (Auto) 5.8 % (9.0-44.0) Monocytes (%) (Auto) 9.6 % (0.0-8.0) Eosinophils (%) (Auto) 0.5 % (0.0-4.0) Basophils (%) (Auto) 0.7 % (0.0-2.0) Neutrophils # (Auto) 15.8 TH/MM3 (1.8-7.7) Lymphocytes # (Auto) 1.1 TH/MM3 (1.0-4.8) Monocytes # (Auto) 1.8 TH/MM3 (0-0.9) Eosinophils # (Auto) 0.1 TH/MM3 (0-0.4) Basophils # (Auto) 0.1 TH/MM3 (0-0.2) CBC Comment DIFF FINAL Differential Comment Activated Partial Thromboplast Time 62.3 SEC (24.3-30.1) Blood Urea Nitrogen 10 MG/DL (7-18) Creatinine 0.85 MG/DL (0.50-1.00) Random Glucose 137 MG/DL (74-106) Calcium Level 8.2 MG/DL (8.5-10.1) Phosphorus Level 3.9 MG/DL (2.5-4.9) Magnesium Level 2.0 MG/DL (1.5-2.5) Sodium Level 133 MEQ/L (136-145) Potassium Level 3.8 MEQ/L (3.5-5.1) Chloride Level 98 MEQ/L (98-107) Carbon Dioxide Level 28.3 MEQ/L (21.0-32.0) Anion Gap 7 MEQ/L (5-15) Estimat Glomerular Filtration Rate 76 ML/MIN (>89) Result Diagram: 09/10/17 0500 09/10/17 0500 Microbiology Microbiology Date/Time Source Procedure Growth Status 09/09/17 05:50 Blood Peripheral Aerobic Blood Culture Pending Received 09/09/17 05:50 Blood Peripheral Anaerobic Blood Culture Pending Received 09/08/17 21:20 Blood Line Aerobic Blood Culture - Preliminary NO GROWTH IN 1 DAY Resulted 09/08/17 21:20 Blood Line Anaerobic Blood Culture - Preliminary NO GROWTH IN 1 DAY Resulted 09/08/17 21:50 Sputum Expectorated Sputum Gram Stain - Final Resulted 09/08/17 21:50 Sputum Expectorated Sputum Sputum Culture - Preliminary LIGHT GROWTH NORMAL RESPIRATORY PATRICIA... Resulted Imaging Last Impressions Chest X-Ray 09/10/17 0600 Signed Impressions: Service Date/Time: Sunday, September 10, 2017 03:52 - CONCLUSION: There is a small to moderate size right pleural effusion with associated volume loss and/or airspace consolidation. The pleural effusion has increased from the prior examination. Adalid Galo MD Head CT 09/08/17 0000 Signed Impressions: Service Date/Time: Friday, September 08, 2017 10:22 - CONCLUSION: 1. Focal area of decreased density involving the right parietal lobe. As a new finding from the prior exam. This could relate to a small infarct. MRI of the brain with gadolinium suggested to further evaluate. 2. Small lacunar infarction involving the left centrum semiovale. Ananth Ponce Jr., MD CT Angiography 09/08/17 Signed Impressions: Service Date/Time: Friday, September 08, 2017 10:28 - CONCLUSION: There extensive pulmonary emboli bilaterally. There is near complete cut off of the right lower lobe pulmonary artery. Prominent filling defects on the left as well. These findings were relayed to Dr. Dominguez immediately at the completion of the study. Scattered pulmonary infiltrates, small pleural effusion and extensive mediastinal lymphadenopathy as described above. Karsten Crowder MD Brain MRI 09/08/17 0000 Signed Impressions: Service Date/Time: Friday, September 08, 2017 18:04 - CONCLUSION: Deterioration in the appearance of the scan. At least 3 focal areas of abnormal contrast enhancement are present scattered to in both hemispheres. Given the history this most likely represents developing areas cerebritis. Exam is compromised by an uncooperative patient and motion artifact. These 2 factors make detection of other abnormalities such as cortical cephalitis and meningitis difficult to exclude. Cannot exclude hemorrhagic lesions as well. There is no mass effect evident. Geremias Mauricio MD Chest CT 09/03/17 0000 Signed Impressions: Service Date/Time: Sunday, September 03, 2017 12:41 - CONCLUSION: 1. There are at least 5 pulmonary nodules present bilaterally with the largest measuring 19 mm. None demonstrate cavitation but it is possible that these represent septic emboli. Suggest followup to assess for change. 2. Splenomegaly with subtle wedge-shaped areas of low-density in the mid spleen which could represent infarcts. 3. Mild cardiomegaly in this patient post aortic valve replacement. Low density of the cardiac blood pool suggests anemia. Adalid Galo MD Aorta w/Runoff CTA 09/02/17 0000 Signed Impressions: Service Date/Time: Saturday, September 02, 2017 12:47 - CONCLUSION: Left renal cortical infarction. 5-6 cm length total occlusion of the left superficial femoral artery in the proximal thigh. Nodular parenchymal opacities in the lung bases bilaterally See above discussion. Adalid Dallas MD Renal Ultrasound 09/01/17 0000 Signed Impressions: Service Date/Time: Friday, September 01, 2017 10:53 - CONCLUSION: 1. No evidence of hydronephrosis. 2. Thickening of the urinary bladder wall a 1.1 cm. 3. Prominent splenomegaly. Baldemar Pineda MD Breast Ultrasound 09/01/17 0000 Signed Impressions: Service Date/Time: Friday, September 01, 2017 10:48 - CONCLUSION: Negative targeted right breast ultrasound examination. Adalid Haney MD Lower Extremity Ultrasound 08/31/17 0000 Signed Impressions: Service Date/Time: Thursday, August 31, 2017 21:22 - CONCLUSION: 1. No sonographic evidence for lower extremity DVT. 2. Incidental note of bilateral inguinal adenopathy with the largest on the right measuring 3.3 cm and the largest on the left measuring 2.6 cm. This finding is nonspecific but is typically reactive in etiology. Luis Leija MD . Procedures * 09/01/16 - right IJ central line placement Patient/Family Conference Present at Family Conference: Tamara Ponce and I met with patient at bedside. Called to speak with mother via phone to provide update. . Family Conference Time (mins): 60 (30 minutes with pt30 minutes via phone with mother. ) Family Conference Location: Bedside, Telephone Issues Discussed: * Palliative care role, purpose, approach * Additional medical, psychosocial, and spiritual history * Patients general health, functional status, and cognitive changes in the months leading up to the current hospitalization * Patient/family understanding of the current medical problems * Patient/family understanding of prognosis * Patients goals of care as best understood from advance directives and/or conversations and/or values * Current medical treatment options and benefits/burdens of those options * Likely scenarios comparing ongoing aggressive care with a transition to comfort measures only * Questions answered to the best of my ability * Palliative care contact information provided Assessment and Plan Disease Oriented Problem List: (1) Prosthetic valve endocarditis (2) Congestive heart failure due to valvular disease (3) Polysubstance abuse (4) Acute septic pulmonary embolism (5) Acute kidney injury (6) CHF (congestive heart failure), NYHA class IV (7) Severe sepsis (8) Elevated troponin Symptom Scale: (1) Pain 0-10 Scale: 10 (2) Encephalopathy 0-10 Scale: Unable to quantify (3) Dyspnea 0-10 Scale: Unable to quantify Pertinent Non-Medical Issues Psychosocial: single. 2 juvenile children. Supported by her mother, step- father and boyfriend. Spiritual: Unknown. Legal: No known written advanced directives, family is going to try to find HCS paperwork they think pt previously completed. Patient a single. Children are juvenile. If no written advanced directives, according to [place] statutes health care proxy decision-making falls to a parent. Ethical issues impacting care: No known concerns at this time. . Important Contacts * Fany Nielsen, mother/ HCP: [phone] * Karsten Nielsen, stepfather: [phone] . Prognosis Patient has grim prognosis. . Code Status: Full Code Plan * Decision Maker: No written advanced directives, patient refused to complete advanced directives during last admission. Patient a single. Children are juvenile. In the absence of written advanced directives, according to [place] statutes health care proxy decision-making falls to her mother, Fany Nielsen. Karsten Nielsen is a step-father. * FULL CODE. * Patient desires continued aggressive care including FULL CODE. Patient does not want to complete advanced directives again today, stating "do we have to talk about this?" I advised her in the absence of written advanced directives decision making would fall to her mother, not her step-father. She verbalizes understanding. She has some understanding of current medical problems, though having difficulty carrying on conversation due to dyspnea. * Called to provide medical update to patient's mother, Fany. She remembers talking to me during Sky's last admission. She is very appreciative and understands her daughter is critically ill and she may be left in a position to have to make difficult decisions for her daughter. She asks that I keep her informed. * Palliative care number provided. * SYMPTOMS: Pain: Potential sources include endocarditis, bedbound status, tubes etc. Patient with likely high tolerance given history of IV drug use, will monitor effective medications. Dyspnea: secondary to endocarditis, pulmonary emboli. Hallucination: patient thought she saw a bug on her arm during my visit, though knew it "wasn't really there." No medication recommendations at this time. * Palliative care will continue to follow throughout hospital course to assist with symptom management and clarification of goals as needed. . Thank you for the opportunity to participate in the care of Ms. Segal. Attestation To help prompt me to consider important information that might be impacting today's encounter and assessment, information from prior notes written by myself or my colleagues may have been "brought forward" into today's note. My signature on this note, however, is an attestation that I personally performed the exam, history, and/or decision-making noted today, and, unless otherwise indicated, the interactions with patient, family, and staff as well as the review of records all occurred today. I also attest that the listed assessment and stated plan reflect my best clinical judgment today based on the combination of historical information, prior notes, and today's exam/ interactions. When time spent is documented, it refers only to time spent today by the signer, or if indicated, combined time spent today by collaborating physician/nurse practitioner. Shanice García Sep 10, 2017 10:21
--- NOTE | 2017-09-10 11:35 | HHI.IDPN ---
Note Infectious Disease Note Weekend events noted. Patient states that she feels okay. She looks somewhat drowsy. She had elevated temperature to 102 over the weekend. Repeat blood cultures are negative so far. She was noted to have increased shortness of breath. MR of the brain showed evidence of cerebritis and head CT showed Area of decreased density involving the right parietal lobe. CT scan of the chest of extensive emboli bilaterally. Patient denies headache. Denies chills. Feels that the shortness of breath is the same. Denies chest pain. She is afebrile. She denies pain in the left leg currently. 36-year-old white female who has a history of endocarditis and has been admitted several times for the same. The patient developed shortness of breath, fever and chills, and presented to the emergency department. The patient is noted to be actively using IV drugs. She has history of significant CHF from prior valvular heart disease related to endocarditis. She states that she started feeling short of breath about a week ago and the shortness of breath worsened. After she completed IV antibiotics in April she was put on doxycycline prophylaxis. She reports that she has not been taking the doxycycline. PAST MEDICAL HISTORY: Hepatitis C. IV drug use. prosthetic aortic valve replacement in 2010 and then redo aortic valve replacement in December 2015 MEDICATIONS: 1. Gentamicin. 2. Ampicillin. 3. Vancomycin. Current Medications Medications (Trade) Dose Ordered Sig/Jessica Route PRN Reason Start Time Stop Time Status Last Admin Dose Admin Sodium Chloride (NS Flush) 2 ml UNSCH PRN IV FLUSH FLUSH AFTER USING IV ACCESS 08/31/17 22:00 Sodium Chloride (NS Flush) 2 ml BID IV FLUSH 09/01/17 09:00 09/10/17 09:27 Acetaminophen (Tylenol) 650 mg Q6H PRN PO fever 08/31/17 22:00 09/08/17 21:31 Ondansetron HCl (Zofran Inj) 4 mg Q6H PRN IV PUSH NAUSEA OR VOMITING 08/31/17 22:00 Temazepam (Restoril) 15 mg HS PRN PO INSOMNIA 08/31/17 22:00 09/09/17 00:27 Miscellaneous Information 1 [id number] XX 08/31/17 22:00 Chlorhexidine Gluconate (Chlorhexidine 2% Cloth) Taper DAILY@04 TOP 09/01/17 04:00 08/28/18 03:59 09/10/17 03:05 Chlorhexidine Gluconate (Chlorhexidine 2% Cloth) 3 pack UNSCH PRN TOP HYGIENIC CARE 08/31/17 22:00 Senna/Docusate Sodium (Armida-Colace) 1 tab BID PO 09/01/17 09:00 09/09/17 20:25 Magnesium Hydroxide (Milk Of Magnesia Liq) 30 ml Q12H PRN PO Mild constipation 08/31/17 22:00 Sennosides (Senokot) 17.2 mg Q12H PRN PO Moderate constipation 08/31/17 22:00 Bisacodyl (Dulcolax Supp) 10 mg DAILY PRN RECTAL SEVERE CONSITIPATION 08/31/17 22:00 Lactulose (Lactulose Liq) 30 ml DAILY PRN PO SEVERE CONSITIPATION 08/31/17 22:00 Ampicillin Sodium 2000 mg/Sodium Chloride 100 ml @ 400 mls/hr Q6H IV 09/01/17 14:00 09/10/17 09:26 Hydromorphone HCl (Dilaudid Pf Inj) 2 mg Q4H PRN IV PUSH PAIN SCALE 6 TO 10 09/02/17 15:00 09/10/17 09:27 Loperamide HCl (Imodium) 2 mg Q4H PRN PO Diarrhea 09/03/17 16:15 09/05/17 14:32 Gentamicin Sulfate 100 mg/ Sodium Chloride 102.5 ml @ 100 mls/hr Q8H IV 09/03/17 21:00 09/10/17 04:51 Albuterol Sulfate (Albuterol Neb) 2.5 mg Q2HR NEB PRN NEB dyspnea 09/04/17 11:30 09/07/17 02:47 Famotidine (Pepcid) 20 mg BID PO 09/04/17 21:00 09/10/17 09:27 Argatroban 250 mg/ Sodium Chloride 252.5 ml @ 3.11 mls/hr TITRATE PRN IV aPTT < 50 09/06/17 19:15 09/08/17 18:58 Pharmacy Profile Note 0 ml @ 0 mls/hr UNSCH OTHER 09/08/17 16:45 Acetaminophen/ Hydrocodone Bitart ([place] 10-325 Mg) 1 tab Q4H PRN PO pain 1-5 09/09/17 15:00 09/10/17 04:52 Vancomycin HCl 1750 mg/Sodium Chloride 517.5 ml @ 260 mls/hr Q12H IV 09/10/17 02:00 09/10/17 01:19 Miscellaneous Information SPECIFIC LAB TO BE MELISSA... ONCE ONCE .XX 09/11/17 13:45 09/11/17 13:46 SOCIAL HISTORY: Positive occasional alcohol. No tobacco. IV drug use in the form of Dilaudid, oxycodone. The patient also uses marijuana. OBJECTIVE: Vital Signs Date Time Temp Pulse Resp B/P (MAP) Pulse Ox O2 Delivery O2 Flow Rate FiO2 09/10/17 10:00 109 09/10/17 09:57 28 09/10/17 09:02 97 Nasal Cannula 3.00 09/10/17 09:00 102 09/10/17 08:00 107 09/10/17 07:00 100 Nasal Cannula 3.00 09/10/17 06:00 106 09/10/17 04:00 110 09/10/17 04:00 98.9 110 30 97/67 (77) 97 09/10/17 02:00 109 09/10/17 00:00 114 09/10/17 00:00 98.9 114 28 86/59 (68) 94 09/09/17 22:00 124 09/09/17 20:33 96 Nasal Cannula 3.00 09/09/17 20:00 98.7 124 30 96/68 (77) 97 09/09/17 20:00 124 09/09/17 19:00 98 Nasal Cannula 4.00 09/09/17 18:00 104 09/09/17 16:00 105 09/09/17 16:00 99.1 105 31 96/64 (75) 96 09/09/17 14:00 113 09/09/17 13:37 23 09/09/17 12:00 113 09/09/17 12:00 99.5 113 33 86/62 (70) 98 Laboratory Tests Test 09/09/17 05:00 09/10/17 05:00 09/10/17 09:30 White Blood Count 21.1 TH/MM3 19.0 TH/MM3 16.8 TH/MM3 Red Blood Count 3.30 MIL/MM3 2.91 MIL/MM3 2.89 MIL/MM3 Hemoglobin 7.4 GM/DL 6.6 GM/DL 6.6 GM/DL Hematocrit 23.0 % 20.6 % 20.5 % Mean Corpuscular Volume 69.8 FL 70.7 FL 70.7 FL Mean Corpuscular Hemoglobin 22.4 PG 22.7 PG 22.8 PG Mean Corpuscular Hemoglobin Concent 32.0 % 32.1 % 32.2 % Red Cell Distribution Width 17.9 % 18.5 % 18.8 % Platelet Count 291 TH/MM3 315 TH/MM3 313 TH/MM3 Mean Platelet Volume 8.4 FL 8.2 FL 8.3 FL Neutrophils (%) (Auto) 84.6 % 83.4 % 88.0 % Lymphocytes (%) (Auto) 5.7 % 5.8 % 5.1 % Monocytes (%) (Auto) 8.8 % 9.6 % 5.8 % Eosinophils (%) (Auto) 0.4 % 0.5 % 0.6 % Basophils (%) (Auto) 0.5 % 0.7 % 0.5 % Neutrophils # (Auto) 17.8 TH/MM3 15.8 TH/MM3 14.8 TH/MM3 Lymphocytes # (Auto) 1.2 TH/MM3 1.1 TH/MM3 0.9 TH/MM3 Monocytes # (Auto) 1.9 TH/MM3 1.8 TH/MM3 1.0 TH/MM3 Eosinophils # (Auto) 0.1 TH/MM3 0.1 TH/MM3 0.1 TH/MM3 Basophils # (Auto) 0.1 TH/MM3 0.1 TH/MM3 0.1 TH/MM3 CBC Comment DIFF FINAL DIFF FINAL DIFF FINAL Differential Comment Laboratory Tests Test 09/09/17 05:00 09/10/17 05:00 Blood Urea Nitrogen 10 MG/DL 10 MG/DL Creatinine 0.79 MG/DL 0.85 MG/DL Random Glucose 119 MG/DL 137 MG/DL Total Protein 6.8 GM/DL Albumin 2.4 GM/DL Calcium Level 8.7 MG/DL 8.2 MG/DL Phosphorus Level 4.3 MG/DL 3.9 MG/DL Magnesium Level 2.1 MG/DL 2.0 MG/DL Alkaline Phosphatase 113 U/L Aspartate Amino Transf (AST/SGOT) 17 U/L Alanine Aminotransferase (ALT/SGPT) 11 U/L Total Bilirubin 0.7 MG/DL Sodium Level 134 MEQ/L 133 MEQ/L Potassium Level 4.4 MEQ/L 3.8 MEQ/L Chloride Level 99 MEQ/L 98 MEQ/L Carbon Dioxide Level 29.3 MEQ/L 28.3 MEQ/L Anion Gap 6 MEQ/L 7 MEQ/L Estimat Glomerular Filtration Rate 83 ML/MIN 76 ML/MIN Microbiology Date/Time She is afebrile. Source Procedure Growth Status 09/09/17 05:50 Blood Peripheral Aerobic Blood Culture - Preliminary NO GROWTH IN 1 DAY Resulted 09/09/17 05:50 Blood Peripheral Anaerobic Blood Culture - Preliminary NO GROWTH IN 1 DAY Resulted 09/08/17 21:20 Blood Line Aerobic Blood Culture - Preliminary NO GROWTH IN 2 DAYS Resulted 09/08/17 21:20 Blood Line Anaerobic Blood Culture - Preliminary NO GROWTH IN 2 DAYS Resulted 09/08/17 21:50 Sputum Expectorated Sputum Gram Stain - Final Resulted 09/08/17 21:50 Sputum Expectorated Sputum Sputum Culture - Preliminary LIGHT GROWTH NORMAL RESPIRATORY PATRICIA... Resulted Microbiology Date/Time Source Procedure Growth Status 09/04/17 04:25 Blood Peripheral Aerobic Blood Culture - Preliminary NO GROWTH IN 2 DAYS Resulted 09/04/17 04:25 Blood Peripheral Anaerobic Blood Culture - Preliminary NO GROWTH IN 2 DAYS Resulted 09/04/17 04:20 Blood Peripheral Aerobic Blood Culture - Preliminary NO GROWTH IN 2 DAYS Resulted 09/04/17 04:20 Blood Peripheral Anaerobic Blood Culture - Preliminary NO GROWTH IN 2 DAYS Resulted Microbiology Date/Time Source Procedure Growth Status 08/31/17 20:15 Blood Peripheral Aerobic Blood Culture - Final Viridans Streptococcus Grp Complete 08/31/17 20:15 Anaerobic Blood Culture - Final Viridans Streptococcus Grp Complete 08/31/17 20:10 Blood Peripheral Aerobic Blood Culture - Final Viridans Streptococcus Grp Complete 08/31/17 20:10 Anaerobic Blood Culture - Final Viridans Streptococcus Grp Complete 09/02/17 21:00 Stool Stool Stool Occult Blood (DONNY) - Final HEMOCCULT NEGATIVE Complete 08/31/17 22:30 Urine Suprapubic Urine Urine Culture - Final NO GROWTH IN 48 HOURS. Complete IMAGING: Chest X-Ray 09/10/17 0600 Signed Impressions: Service Date/Time: Sunday, September 10, 2017 03:52 - CONCLUSION: There is a small to moderate size right pleural effusion with associated volume loss and/or airspace consolidation. The pleural effusion has increased from the prior examination. Adalid Galo MD Head CT 09/08/17 Signed Impressions: Service Date/Time: Friday, September 08, 2017 10:22 - CONCLUSION: 1. Focal area of decreased density involving the right parietal lobe. As a new finding from the prior exam. This could relate to a small infarct. MRI of the brain with gadolinium suggested to further evaluate. 2. Small lacunar infarction involving the left centrum semiovale. Ananth Ponce Jr., MD CT Angiography 09/08/17 Signed Impressions: Service Date/Time: Friday, September 08, 2017 10:28 - CONCLUSION: There extensive pulmonary emboli bilaterally. There is near complete cut off of the right lower lobe pulmonary artery. Prominent filling defects on the left as well. These findings were relayed to Dr. Dominguez immediately at the completion of the study. Scattered pulmonary infiltrates, small pleural effusion and extensive mediastinal lymphadenopathy as described above. Karsten Crowder MD Brain MRI 09/08/17 Signed Impressions: Service Date/Time: Friday, September 08, 2017 18:04 - CONCLUSION: Deterioration in the appearance of the scan. At least 3 focal areas of abnormal contrast enhancement are present scattered to in both hemispheres. Given the history this most likely represents developing areas cerebritis. Exam is compromised by an uncooperative patient and motion artifact. These 2 factors make detection of other abnormalities such as cortical cephalitis and meningitis difficult to exclude. Cannot exclude hemorrhagic lesions as well. There is no mass effect evident. Geremias Mauricio MD Renal Ultrasound 09/01/17 Signed Impressions: Service Date/Time: Friday, September 01, 2017 10:53 - CONCLUSION: 1. No evidence of hydronephrosis. 2. Thickening of the urinary bladder wall a 1.1 cm. 3. Prominent splenomegaly. Baldemar Pineda MD Chest X-Ray 09/01/17 Signed Impressions: Service Date/Time: Friday, September 01, 2017 09:36 - CONCLUSION: Right internal jugular central line in place with the tip overlying the SVC. A pneumothorax is not seen. Adalid Haney MD Breast Ultrasound 09/01/17 0000 Signed Impressions: Service Date/Time: Friday, September 01, 2017 10:48 - CONCLUSION: Negative targeted right breast ultrasound examination. Adalid Haney MD Lower Extremity Ultrasound 08/31/17 0000 Signed Impressions: Service Date/Time: Thursday, August 31, 2017 21:22 - CONCLUSION: 1. No sonographic evidence for lower extremity DVT. 2. Incidental note of bilateral inguinal adenopathy with the largest on the right measuring 3.3 cm and the largest on the left measuring 2.6 cm. This finding is nonspecific but is typically reactive in etiology. Luis Leija MD PHYSICAL EXAMINATION GENERAL: No acute distress. HEENT: Head atraumatic. Extraocular movements grossly intact. Pupils reactive to light. No icterus. Oropharynx moist mucosa, no lesions. Neck: Supple without adenopathy. Lungs: Coarse bilateral rhonchi. Heart: 5/6 blowing systolic murmur at the upper right sternal border. Abdomen: Bowel sounds present, soft, obese, nontender. Extremities: Diffuse 1+ edema of the lower extremities. Lesions at Left tibia distally and left foot and great toe are more red and not purpuric as before. Toes 3 and 5 are cyanotic. The leg is tender on palpation. It is warm. No calf tenderness. No nail bed hemorrhages. SKIN: no diffuse rash. Neuro: No gross focal findings. Psychiatric: calm and cooperative. IMPRESSION 1. Sepsis. Strep Viridans. 2. Tricuspid valve endocarditis. Large vegetation. Tricuspid regurgitation. Patient evaluated by cardiovascular surgery and felt not to be a surgical candidate. 3. Bacteremia. Strep viridans. Repeat blood cultures are pending. Previous repeat blood cultures were negative. 4. History of prosthetic aortic valve and so likely recurrent prosthetic valve endocarditis. 5. Cerebritis on MRI. Also has parietal infarct noted on CT scan of the brain. 6. Left renal cortical and pulmonary and lower extremity septic emboli. 7. Leukocytosis secondary to sepsis from showering of emboli from endocarditis. 8. Acute renal failure. Kidney function improved. Stable. Patient remains very critically ill. RECOMMENDATIONS 1. Continue Ampicillin intravenous. 2. Continue Gentamicin. now that the kidney function is improved but follow the renal function. 3. Continue vancomycin. Pharmacy managing. 4. Monitor clinical response. 5. Continue to monitor the left leg lesions. 6. Consider lumbar puncture if the mentation deteriorates. She may be developing abscess if Her mental status deteriorates. Edmar Sloan MD Sep 10, 2017 11:35
[2017-09-10] MEDS ORDERED: RESP: IPRATROPIUM 0.5 MG/2.5 ML NEB NEB ONE (14:30)
[2017-09-10 14:33] LABS: INTERNATIONAL NORMALIZED RATIO 2.1 RATIO; PROTHROMBIN TIME - PATIENT 21.2 SEC (9.8-11.6)
--- NOTE | 2017-09-10 14:48 | PD.ONC.PN ---
Subjective Subjective Remarks Afebrile overnight. Patient lethargic/somnolent at times during interview. Per nurse she recently received her dilaudid shot. patient still having pain in left leg. no change. no bleeding. Objective Data Date Time Temp Pulse Resp B/P (MAP) Pulse Ox O2 Delivery O2 Flow Rate FiO2 09/10/17 10:00 109 09/10/17 09:57 28 09/10/17 09:02 97 Nasal Cannula 3.00 09/10/17 09:00 102 09/10/17 08:00 98.5 107 32 95/67 (76) 97 09/10/17 08:00 107 09/10/17 07:00 100 Nasal Cannula 3.00 09/10/17 06:00 106 09/10/17 04:00 110 09/10/17 04:00 98.9 110 30 97/67 (77) 97 09/10/17 02:00 109 09/10/17 00:00 114 09/10/17 00:00 98.9 114 28 86/59 (68) 94 09/09/17 22:00 124 09/09/17 20:33 96 Nasal Cannula 3.00 09/09/17 20:00 98.7 124 30 96/68 (77) 97 09/09/17 20:00 124 09/09/17 19:00 98 Nasal Cannula 4.00 09/09/17 18:00 104 09/09/17 16:00 105 09/09/17 16:00 99.1 105 31 96/64 (75) 96 09/10/17 09/10/17 09/10/17 07:00 15:00 23:00 Intake Total 1200.0 ml Output Total 600 ml Balance 600.0 ml Result Diagram: 09/10/17 0930 09/10/17 0500 Laboratory Results Laboratory Tests Test 09/09/17 18:15 09/10/17 05:00 09/10/17 09:30 09/10/17 12:20 Vancomycin Level Trough 25.8 MCG/ML White Blood Count 19.0 TH/MM3 16.8 TH/MM3 Red Blood Count 2.91 MIL/MM3 2.89 MIL/MM3 Hemoglobin 6.6 GM/DL 6.6 GM/DL Hematocrit 20.6 % 20.5 % Mean Corpuscular Volume 70.7 FL 70.7 FL Mean Corpuscular Hemoglobin 22.7 PG 22.8 PG Mean Corpuscular Hemoglobin Concent 32.1 % 32.2 % Red Cell Distribution Width 18.5 % 18.8 % Platelet Count 315 TH/MM3 313 TH/MM3 Mean Platelet Volume 8.2 FL 8.3 FL Neutrophils (%) (Auto) 83.4 % 88.0 % Lymphocytes (%) (Auto) 5.8 % 5.1 % Monocytes (%) (Auto) 9.6 % 5.8 % Eosinophils (%) (Auto) 0.5 % 0.6 % Basophils (%) (Auto) 0.7 % 0.5 % Neutrophils # (Auto) 15.8 TH/MM3 14.8 TH/MM3 Lymphocytes # (Auto) 1.1 TH/MM3 0.9 TH/MM3 Monocytes # (Auto) 1.8 TH/MM3 1.0 TH/MM3 Eosinophils # (Auto) 0.1 TH/MM3 0.1 TH/MM3 Basophils # (Auto) 0.1 TH/MM3 0.1 TH/MM3 CBC Comment DIFF FINAL DIFF FINAL Differential Comment Activated Partial Thromboplast Time 62.3 SEC Blood Urea Nitrogen 10 MG/DL Creatinine 0.85 MG/DL Random Glucose 137 MG/DL Calcium Level 8.2 MG/DL Phosphorus Level 3.9 MG/DL Magnesium Level 2.0 MG/DL Sodium Level 133 MEQ/L Potassium Level 3.8 MEQ/L Chloride Level 98 MEQ/L Carbon Dioxide Level 28.3 MEQ/L Anion Gap 7 MEQ/L Estimat Glomerular Filtration Rate 76 ML/MIN Prothrombin Time 21.2 SEC Prothromb Time International Ratio 2.1 RATIO Fibrinogen 485 mg/dL Culture Results Microbiology Date/Time Source Procedure Growth Status 09/09/17 05:50 Blood Peripheral Aerobic Blood Culture - Preliminary NO GROWTH IN 1 DAY Resulted 09/09/17 05:50 Blood Peripheral Anaerobic Blood Culture - Preliminary NO GROWTH IN 1 DAY Resulted 09/08/17 21:20 Blood Line Aerobic Blood Culture - Preliminary NO GROWTH IN 2 DAYS Resulted 09/08/17 21:20 Blood Line Anaerobic Blood Culture - Preliminary NO GROWTH IN 2 DAYS Resulted 09/10/17 12:28 Stool Stool Stool Occult Blood (DONNY) Pending Received 09/08/17 21:50 Sputum Expectorated Sputum Gram Stain - Final Complete 09/08/17 21:50 Sputum Expectorated Sputum Sputum Culture - Final HEAVY GROWTH NORMAL RESPIRATORY PATRICIA Complete Imaging Studies Last 24 hours Impressions Chest X-Ray 09/10/17 0600 Signed Impressions: Service Date/Time: Sunday, September 10, 2017 03:52 - CONCLUSION: There is a small to moderate size right pleural effusion with associated volume loss and/or airspace consolidation. The pleural effusion has increased from the prior examination. Adalid Galo MD Administered Medications Medications (Trade) Dose Ordered Sig/Jessica Route PRN Reason Start Time Stop Time Status Last Admin Dose Admin Sodium Chloride (NS Flush) 2 ml BID IV FLUSH 09/01/17 09:00 09/10/17 09:27 Acetaminophen (Tylenol) 650 mg Q6H PRN PO fever 08/31/17 22:00 09/08/17 21:31 Temazepam (Restoril) 15 mg HS PRN PO INSOMNIA 08/31/17 22:00 09/09/17 00:27 Chlorhexidine Gluconate (Chlorhexidine 2% Cloth) Taper DAILY@04 TOP 09/01/17 04:00 08/28/18 03:59 09/10/17 03:05 Senna/Docusate Sodium (Armida-Colace) 1 tab BID PO 09/01/17 09:00 09/09/17 20:25 Ampicillin Sodium 2000 mg/Sodium Chloride 100 ml @ 400 mls/hr Q6H IV 09/01/17 14:00 09/10/17 12:46 Hydromorphone HCl (Dilaudid Pf Inj) 2 mg Q4H PRN IV PUSH PAIN SCALE 6 TO 10 09/02/17 15:00 09/10/17 13:36 Loperamide HCl (Imodium) 2 mg Q4H PRN PO Diarrhea 09/03/17 16:15 09/05/17 14:32 Gentamicin Sulfate 100 mg/ Sodium Chloride 102.5 ml @ 100 mls/hr Q8H IV 09/03/17 21:00 09/10/17 12:45 Albuterol Sulfate (Albuterol Neb) 2.5 mg Q2HR NEB PRN NEB dyspnea 09/04/17 11:30 09/07/17 02:47 Famotidine (Pepcid) 20 mg BID PO 09/04/17 21:00 09/10/17 09:27 Argatroban 250 mg/ Sodium Chloride 252.5 ml @ 3.11 mls/hr TITRATE PRN IV aPTT < 50 09/06/17 19:15 09/08/17 18:58 Acetaminophen/ Hydrocodone Bitart ([place] 10-325 Mg) 1 tab Q4H PRN PO pain 1-5 09/09/17 15:00 09/10/17 04:52 Vancomycin HCl 1750 mg/Sodium Chloride 517.5 ml @ 260 mls/hr Q12H IV 09/10/17 02:00 09/10/17 01:19 Objective Remarks GENERAL: Young woman, resting in hospital bed SKIN: Warm and dry. HEAD: Normocephalic. EYES: No injection or drainage. NECK: Supple, trachea midline. CARDIOVASCULAR: +S1/S2 RESPIRATORY: anterior gustafson clear. on O2 via [place] GASTROINTESTINAL: Abdomen soft, non-tender, nondistended. EXTREMITIES: left leg warm and well perfused but tender to palpation. pulses palpable in both legs. NEUROLOGICAL: awake and alert. normal speech. Assessment/Plan Problem List: (1) arterial blood clot Plan: --on Argatroban (direct thrombin inhibitor) -- no significant family history of thrombotic events to suggest hereditary antithrombin deficiency. suspect the antithrombin deficiency comes from her impaired production from her liver disease. --has chronic active hepatitis C. ++increased consumption from disseminated intravascular coagulation and acute illness, bacterial endocarditis. --Protein losses are also considered. She had mild proteinuria when she first was admitted. --Thrombin inactivates antithrombin. This would abrogate the effect of unfractionated heparin and low molecular weight heparin. (2) Acute septic pulmonary embolism ICD Codes: I26.90 - Septic pulmonary embolism without acute cor pulmonale Plan: -- The echocardiogram on 09/08 showed an estimated EF of 50-55%. There was severe tricuspid regurgitation with prosthesis in place. 2 x 4 cm mobile vegetation was seen on the valve. The right atrium and right ventricle were normal in size and function (3) Microcytic anemia ICD Codes: D50.9 - Iron deficiency anemia, unspecified Plan: --elevated ferritin --no clinically obvious bleeding. --will obtain anemia studies, stool Hemoccult Assessment 36y/o female admitted with recurrent endocarditis. hematology consulted for anticoagulation assistance. h/o Recurrent bacterial endocarditis, bacteremia, history of prosthetic aortic valve and subsequent redo, chronic active hepatitis C, intravenous drug use, microcytic anemia, consistent with iron deficiency, left lower extremity arterial event, bacterial endocarditis with viridans streptococcus. HPI (brought forward for continuity of care): history of IV drug abuse and recurrent endocarditis. had a relapse of her activity. has history of pulmonary embolism and infected valves. +significant congestive heart failure and presented to the emergency room on 08/31/2017, with sepsis. is followed by Infectious Disease for her endocarditis. previously received antibiotic therapy for enterococcus faecalis and staph aureus. There is questionable compliance. Her current blood culture from 08/31/2017, shows viridans streptococcus. Two out of two bottles were positive. She is on ampicillin and gentamicin. course is complicated by cold left lower extremity, evaluated by Vascular Surgery. 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 There is satisfactory calf runoff present. For this reason , conservative management with anticoagulation is continued. was placed on unfractionated heparin. Her heparin dose has been titrated from 1000 units/ hour to 2500 units/hour with a PTT remaining subtherapeutic. Her last PTT is 32 seconds from 09/06/2017, at 2 p.m. For this reason, Hematology/Oncology is consulted. Plan 1. continue Argatroban. 2. agree with pRBC transfusion 3. obtain anemia studies: haptoglobin/LDH, iron studies may be difficult as she has already has blood transfusion, B12/folate; Attending Statement The exam, history, and the medical decision-making described in the above note were completed with the assistance of the mid-level provider. I reviewed and agree with the findings presented. I attest that I had a [id number] encounter with the patient on the same day, and personally performed and documented my assessment and findings in the medical record. Pt seen and examined. ATIII still pending. Stable on argatroban, no overt bleeding but gradual decrease in hgb. Noted febrile reaction to blood transfusion, transfusion stopped and evaluation by blood bank on going. Fever now resolved. Discussed longer term anticoagulation with Coumadin. PT is familiar with Coumadin. Anticipate starting Coumadin tomorrow bridge with Argatroban pending Hgb stable. Jennifer Bailey Sep 10, 2017 14:48 Myra Silva MD Sep 10, 2017 17:52
--- NOTE | 2017-09-10 15:36 | HHI.CCPN ---
Subjective Remarks/Hospital Course 36-year-old female that presents to the ED for evaluation of shortness of breath and swelling. 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 Patient initially did not mention to anybody that she was doing drugs but she did tell me that she injected herself about 4 days ago. She uses Dilaudid. She states that she's been having fevers. Patient is somewhat somnolent and hard to assess she doesn't really provide much information. Family members at the bedside and he provides more information about the heart. Per patient she'll he takes 2 medications. Patient asked if she is taking any antibiotics and she said yes but when I ask her what kind is she is taking currently she states that she has not been on antibiotics for some time. Patient apparently does follow with a local lasting room machine operator but she cannot tell me the name of it. She states that she's been having swelling to her legs for the past month. She denies any recent travel or injury. No other medical issues at this time. No allergies to medication. 09/01: remains critical on Dopamine 10 mcg/ min. Appears ill. Limited bedside echo did not show any large vegetation, but exam was limited, tricuspid and aortic valve not well visualized. Also states that had right breast abscess 2 months ago, drained by herself. Now may have abscess vs scar tissue. Injects upper arm and bilateral breasts. US of right breast ordered 09/02: Remains on 3 mcg/min of Levophed. Complaints of severe left lower extremity pain. Erythematous purpuric purple discoloration of the left lower anterior segment left dorsum of the foot with cyanotic nailbeds. Weak DP pulses+ . 2D Echo failed to reveal definite vegetation. Will consider RACHEL 09/03: Continues to be on Levophed 3 mcg/min, remains critical. We are left lower extremity pain but slightly better. Currently on heparin not therapeutic yet. CTA with runoff showed Left renal cortical infarction. 5-6 cm length total occlusion of the left superficial femoral artery in the proximal thigh but good distal opacification. Dr. Palacios recommended IV heparin no surgical intervention at this time. Patient is still at high risk for further embolic episodes. Blood cultures growing strep viridans. Also patient complains about epigastric and left-sided abdominal pain and left-sided chest pain which is more pleuritic. Pain is severe on deep inspiration 09/04: Resting in bed in no acute distress. Dopplerable lower extremity pulses noted. Remains on heparin drip. Vascular surgery continues to follow. 09/05: Resting in bed in mild respiratory distress. Continues to cough. Nonproductive. Left lower extremity leg improved. Reviewed vascular surgeries note. Likely will require long-term medical regulation post hospitalization 09/06: Improve respiratory status today. Pain in left lower extremity much improved. Tolerating diet. 09/07: Currently on nasal cannula. Switch to Argatroban overnight by hematology. Okayed with vascular surgery. Pain in left lower extremity slowly improving day by day. Subjective 09/08: Resting in bed in some mild respiratory distress. Complaining of pleuritic chest pain specifically in the right flank region. Worse with deep inspiration. Reproducible with palpation. CT brain/CT pulmonary angiogram ordered. No neurological deficits noted on examination. 09/09: CT pulmonary angiogram revealed emboli bilateral lower lobes as well as views of abnormal contrast bilateral cerebral hemispheres. Patient complains still of pleuritic chest pain. Frequency increased on Lortab. CTS in for evaluation patient deemed inoperable. Palliative care consulted appreciate recommendations. 09/10: Leukocytosis resolving. Patient continues in mild respiratory distress. Denies chest pain at this time. Continue mild wheezing, patient continues to refuse nebulizer treatments. Case management consult to [facility] regarding possible transfer pending. A chin noted to have 1 g deciliter dropped in hemoglobin, repeat hemoglobin unchanged, currently 6.6. Patient will be transfused 1 unit of packed red blood cells. Close monitoring of hemoglobin and hematocrit .Concern for possible bleeding, Hemoccult and labs pending. Objective Vital Signs Date Time Temp Pulse Resp B/P (MAP) Pulse Ox O2 Delivery O2 Flow Rate FiO2 09/10/17 14:39 99.9 120 30 100/71 95 09/10/17 09:02 Nasal Cannula 3.00 09/09/17 09:49 35 Intake and Output 09/10/17 09/10/17 09/11/17 08:00 16:00 00:00 Intake Total 1200.0 ml Output Total 600 ml Balance 600.0 ml Result Diagram: 09/10/17 0930 09/10/17 0500 Other Results Microbiology Date/Time Source Procedure Growth Status 09/08/17 21:50 Sputum Expectorated Sputum Gram Stain - Final Complete 09/08/17 21:50 Sputum Expectorated Sputum Sputum Culture - Final HEAVY GROWTH NORMAL RESPIRATORY PATRICIA Complete Imaging Last Impressions Chest X-Ray 09/10/17 0600 Signed Impressions: Service Date/Time: Sunday, September 10, 2017 03:52 - CONCLUSION: There is a small to moderate size right pleural effusion with associated volume loss and/or airspace consolidation. The pleural effusion has increased from the prior examination. Adalid Galo MD Head CT 09/08/17 0000 Signed Impressions: Service Date/Time: Friday, September 08, 2017 10:22 - CONCLUSION: 1. Focal area of decreased density involving the right parietal lobe. As a new finding from the prior exam. This could relate to a small infarct. MRI of the brain with gadolinium suggested to further evaluate. 2. Small lacunar infarction involving the left centrum semiovale. Ananth Ponce Jr., MD CT Angiography 09/08/17 0000 Signed Impressions: Service Date/Time: Friday, September 08, 2017 10:28 - CONCLUSION: There extensive pulmonary emboli bilaterally. There is near complete cut off of the right lower lobe pulmonary artery. Prominent filling defects on the left as well. These findings were relayed to Dr. Dominguez immediately at the completion of the study. Scattered pulmonary infiltrates, small pleural effusion and extensive mediastinal lymphadenopathy as described above. Karsten Crowder MD Brain MRI 09/08/17 0000 Signed Impressions: Service Date/Time: Friday, September 08, 2017 18:04 - CONCLUSION: Deterioration in the appearance of the scan. At least 3 focal areas of abnormal contrast enhancement are present scattered to in both hemispheres. Given the history this most likely represents developing areas cerebritis. Exam is compromised by an uncooperative patient and motion artifact. These 2 factors make detection of other abnormalities such as cortical cephalitis and meningitis difficult to exclude. Cannot exclude hemorrhagic lesions as well. There is no mass effect evident. Geremias Mauricio MD Chest CT 09/03/17 0000 Signed Impressions: Service Date/Time: Sunday, September 03, 2017 12:41 - CONCLUSION: 1. There are at least 5 pulmonary nodules present bilaterally with the largest measuring 19 mm. None demonstrate cavitation but it is possible that these represent septic emboli. Suggest followup to assess for change. 2. Splenomegaly with subtle wedge-shaped areas of low-density in the mid spleen which could represent infarcts. 3. Mild cardiomegaly in this patient post aortic valve replacement. Low density of the cardiac blood pool suggests anemia. Adalid Galo MD Aorta w/Runoff CTA 09/02/17 0000 Signed Impressions: Service Date/Time: Saturday, September 02, 2017 12:47 - CONCLUSION: Left renal cortical infarction. 5-6 cm length total occlusion of the left superficial femoral artery in the proximal thigh. Nodular parenchymal opacities in the lung bases bilaterally See above discussion. Adalid Dallas MD Renal Ultrasound 09/01/17 0000 Signed Impressions: Service Date/Time: Friday, September 01, 2017 10:53 - CONCLUSION: 1. No evidence of hydronephrosis. 2. Thickening of the urinary bladder wall a 1.1 cm. 3. Prominent splenomegaly. Baldemar Pinead MD Breast Ultrasound 09/01/17 0000 Signed Impressions: Service Date/Time: Friday, September 01, 2017 10:48 - CONCLUSION: Negative targeted right breast ultrasound examination. Adalid Haney MD Lower Extremity Ultrasound 08/31/17 0000 Signed Impressions: Service Date/Time: Thursday, August 31, 2017 21:22 - CONCLUSION: 1. No sonographic evidence for lower extremity DVT. 2. Incidental note of bilateral inguinal adenopathy with the largest on the right measuring 3.3 cm and the largest on the left measuring 2.6 cm. This finding is nonspecific but is typically reactive in etiology. Luis Leija MD Last Impressions Head CT 09/08/17 Signed Impressions: Service Date/Time: Friday, September 08, 2017 10:22 - CONCLUSION: 1. Focal area of decreased density involving the right parietal lobe. As a new finding from the prior exam. This could relate to a small infarct. MRI of the brain with gadolinium suggested to further evaluate. 2. Small lacunar infarction involving the left centrum semiovale. Ananth Ponce Jr., MD CT Angiography 09/08/17 0000 Signed Impressions: Service Date/Time: Friday, September 08, 2017 10:28 - CONCLUSION: There extensive pulmonary emboli bilaterally. There is near complete cut off of the right lower lobe pulmonary artery. Prominent filling defects on the left as well. These findings were relayed to Dr. Dominguez immediately at the completion of the study. Scattered pulmonary infiltrates, small pleural effusion and extensive mediastinal lymphadenopathy as described above. Karsten Crowder MD Brain MRI 09/08/17 0000 Signed Impressions: Service Date/Time: Friday, September 08, 2017 18:04 - CONCLUSION: Deterioration in the appearance of the scan. At least 3 focal areas of abnormal contrast enhancement are present scattered to in both hemispheres. Given the history this most likely represents developing areas cerebritis. Exam is compromised by an uncooperative patient and motion artifact. These 2 factors make detection of other abnormalities such as cortical cephalitis and meningitis difficult to exclude. Cannot exclude hemorrhagic lesions as well. There is no mass effect evident. Alex Monahan MD Chest X-Ray 09/06/17 0600 Signed Impressions: Service Date/Time: September 03:05 - CONCLUSION: 1. Stable patchy bilateral lower lung zone airspace disease. 2. No significant interval change. Luis Leija MD Chest CT 09/03/17 0000 Signed Impressions: Service Date/Time: Sunday, September 03, 2017 12:41 - CONCLUSION: 1. There are at least 5 pulmonary nodules present bilaterally with the largest measuring 19 mm. None demonstrate cavitation but it is possible that these represent septic emboli. Suggest followup to assess for change. 2. Splenomegaly with subtle wedge-shaped areas of low-density in the mid spleen which could represent infarcts. 3. Mild cardiomegaly in this patient post aortic valve replacement. Low density of the cardiac blood pool suggests anemia. Adalid Galo MD Aorta w/Runoff CTA 09/02/17 0000 Signed Impressions: Service Date/Time: Saturday, September 02, 2017 12:47 - CONCLUSION: Left renal cortical infarction. 5-6 cm length total occlusion of the left superficial femoral artery in the proximal thigh. Nodular parenchymal opacities in the lung bases bilaterally See above discussion. Adalid Dallas MD Renal Ultrasound 09/01/17 0000 Signed Impressions: Service Date/Time: Friday, September 01, 2017 10:53 - CONCLUSION: 1. No evidence of hydronephrosis. 2. Thickening of the urinary bladder wall a 1.1 cm. 3. Prominent splenomegaly. Baldemar Pineda MD Breast Ultrasound 09/01/17 0000 Signed Impressions: Service Date/Time: Friday, September 01, 2017 10:48 - CONCLUSION: Negative targeted right breast ultrasound examination. Adalid Haney MD Lower Extremity Ultrasound 08/31/17 0000 Signed Impressions: Service Date/Time: Thursday, August 31, 2017 21:22 - CONCLUSION: 1. No sonographic evidence for lower extremity DVT. 2. Incidental note of bilateral inguinal adenopathy with the largest on the right measuring 3.3 cm and the largest on the left measuring 2.6 cm. This finding is nonspecific but is typically reactive in etiology. Luis Leija MD Last Impressions Chest X-Ray 09/06/17 0600 Signed Impressions: Service Date/Time: September 03:05 - CONCLUSION: 1. Stable patchy bilateral lower lung zone airspace disease. 2. No significant interval change. Luis Leija MD Chest CT 09/03/17 0000 Signed Impressions: Service Date/Time: Sunday, September 03, 2017 12:41 - CONCLUSION: 1. There are at least 5 pulmonary nodules present bilaterally with the largest measuring 19 mm. None demonstrate cavitation but it is possible that these represent septic emboli. Suggest followup to assess for change. 2. Splenomegaly with subtle wedge-shaped areas of low-density in the mid spleen which could represent infarcts. 3. Mild cardiomegaly in this patient post aortic valve replacement. Low density of the cardiac blood pool suggests anemia. Adalid Galo MD Aorta w/Runoff CTA 09/02/17 0000 Signed Impressions: Service Date/Time: Saturday, September 02, 2017 12:47 - CONCLUSION: Left renal cortical infarction. 5-6 cm length total occlusion of the left superficial femoral artery in the proximal thigh. Nodular parenchymal opacities in the lung bases bilaterally See above discussion. Adalid Dallas MD Renal Ultrasound 09/01/17 0000 Signed Impressions: Service Date/Time: Friday, September 01, 2017 10:53 - CONCLUSION: 1. No evidence of hydronephrosis. 2. Thickening of the urinary bladder wall a 1.1 cm. 3. Prominent splenomegaly. Baldemar Pineda MD Breast Ultrasound 09/01/17 0000 Signed Impressions: Service Date/Time: Friday, September 01, 2017 10:48 - CONCLUSION: Negative targeted right breast ultrasound examination. Adalid Haney MD Lower Extremity Ultrasound 08/31/17 0000 Signed Impressions: Service Date/Time: Thursday, August 31, 2017 21:22 - CONCLUSION: 1. No sonographic evidence for lower extremity DVT. 2. Incidental note of bilateral inguinal adenopathy with the largest on the right measuring 3.3 cm and the largest on the left measuring 2.6 cm. This finding is nonspecific but is typically reactive in etiology. Luis Leija MD Objective Remarks GENERAL: 36-year-old female resting in bed in no acute distress SKIN: Warm and dry. Patient does appear to have puncture wounds from where she states been injecting recently in her arms, bilateral upper breast. HEAD: Atraumatic. Normocephalic. EYES: Pupils equal and round. No scleral icterus. No injection or drainage. ENT: No nasal bleeding or discharge. Mucous membranes pink and moist. NECK: Trachea midline. No JVD. CHEST: Bilateral upper breast has puncture wounds from injection. Pain to point palpation left upper thorax CARDIOVASCULAR: 2/6 pansystolic murmur at the left lower sternal border. RESPIRATORY: Few fine crackles present bilaterally. Mild wheezing noted GASTROINTESTINAL: Abdomen soft, tender to deep palpation. No guarding rigidity. Positive hepatosplenomegaly. Normoactive bowel sounds MUSCULOSKELETAL: 2+ pitting edema to the lower extremities. Erythematous purpuric rash of the left lower extremity anterior campbell and foot, punctate lesion plantar right great toe. Left leg extremely tender below the left knee. Dopplerable DP pulses bilaterally NEUROLOGICAL: Awake and alert. Motor grossly within normal limits. 5/5 muscle strength in the arms and legs. Normal speech. Date of Insertion: Sep 01, 2017 Line: Central Venous Catheter Side: Right Location: Internal, Jugular A/P Assessment and Plan Neuro/Psych: IVDU -hydromorphone History of THC use - Continue pain control hydrocodone/acetaminophen 10/325 1 tablet every 4 hours as needed pain 1 through 5 with hydromorphone 2 mg IV every 4 hours as needed pain 6-10 (patient has severe pain from ischemic leg) - Acetaminophen 650 mg p.o. 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 - Now with strep viridans in blood cultures 08/31 - Broad-spectrum antibiotic with ampicillin and gentamicin. 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 Holloway following - Anticoagulation with argatroban gtt at 0.75 mcg/kg/min - Infectious disease Dr. Sloan - Extensive counselling given about IP Rehab -CTS evaluation Dr. Bains-no surgical intervention planned - Case management consulted with [facility], for possible transfer Microbiology 09/04 -blood cultures 2 -no growth 08/31 -urine culture -no growth 08/31 -blood cultures 2 -strep viridians Resp: Acute respiratory insufficiency 5 pulmonary nodules likely septic emboli Pleural effusions -Nasal cannula to keep oxygen saturation above 92% currently on 4 L -Incentives spirometry while awake -As needed albuterol aerosols every 2 hours. Dyspnea - CT thorax revealed 5 bilateral pulmonary lesions/nodules largest which is 19 mm. No cavitation noted but likely septic emboli. CT pulmonary angiogram 09/08-pulmonary emboli bilateral lower lobes GI: Hepatitis C Splenic infarction Hypoalbuminemia - Heart healthy diet -Famotidine for GI prophylaxis -Docusate sodium/senna 1 tablet twice daily for bowel regimen Renal/: Acute on chronic kidney disease Left renal cortical infarction - Acute renal failure secondary to ATN and dehydration - CT imaging revealed left renal cortical infarction - Renal ultrasound-thickening of urinary bladder - Creatinine 0.8-will give 40 mg Lasix IV 1 dose Endo: Sliding scale insulin if indicated to maintain euglycemia Heme: Microcytic anemia Leukocytosis - Monitor CBC CMP and coags -Hemoglobin 6.6. Transfuse1 unit of packed red blood cells -Obtain Hemoccult -Obtain LDH, haptoglobin, fibrinogen, PT and INR levels -Heme-Onc following -Monitor H&H every 12 hours, consider CT of the abdomen and pelvis if continued decrease in levels FEN: Hyponatremia Replace electrolytes as clinically indicated. MSK: History of right breast abscess Elevated BMI - Ultrasound of the left lower extremity negative for DVT - Right breast ultrasound negative for abscess -Weight loss encouraged DVT GI prophylaxis - argatroban gtt - famotidine Level 3 follow-up CT pulmonary angiogram revealed bilateral pulmonary emboli nature unclear. Right lower lobe occlusion. CT brain revealed right parietal lacunar infarct possibly with infarct left centrum semiovale possibly septic emboli. Versus thrombus. MRI brain ordered Stat echocardiogram ordered. This revealed Aortic prosthesis with prolapse and possible vegetation. The estimated pulmonary arterial pressure is 65.7 mmHg. Tricuspid valve prosthesis Mobile vegetation seen on the tricuspid valve. 2x4 cm. Discussed with infectious disease. Recommended vancomycin and possible RACHEL early next week Patient is currently on therapeutic argatroban. 09/10-Case management consulted, possible transfer to [facility] were patient received prosthetic aortic valve.I spoke with Dr. Hill CT Surgeon , will not accept pt for transfer, patient still active IVDU, Per report attempted transferred to [facility] - patient was not accepted .D /W patient,and [employer] at bedside (Jairo) Physician Surekha Frazier MD Sep 10, 2017 15:36
[2017-09-10] MEDS ORDERED: diphenhydrAMINE HCL 50 MG/ML VIAL IV PUSH ONE (16:00)
[2017-09-10] MEDS: ACETAMINOPHEN 325 MG TAB PO PRN (16:02)
[2017-09-10] MEDS ORDERED: FUROSEMIDE 40 MG/4 ML VIAL IV PUSH ONE (17:45)
[2017-09-10 18:29] LABS: % SATURATION IRON PROFILE 7.6 % (20-50); IRON (FE) 22 MCG/DL (50-170); TOTAL IRON BINDING CAPACITY 288 MCG/DL (250-450)
[2017-09-10 18:54] LABS: FOLATE 12.4 NG/ML (3.1-17.5)
[2017-09-11] VITALS (31 sets, daily range): BP systolic 84–115; BP diastolic 50–87; PULSE 100–122; RESP 21–46; TEMP 98.2–100; O2SAT 79–100
[2017-09-11] MEDS: AMPICILLIN INJ 2,000 MG in SODIUM CHLORIDE 0.9% INJ 100 ML IV SCH ×4 (01:47→20:51)
[2017-09-11] MEDS: HYDROmorphone HCL PF 2 MG/ML VIAL IV PUSH PRN ×6 (01:47→22:08)
[2017-09-11] MEDS: VANCOMYCIN INJ 1,750 MG in SODIUM CHLORID 0.9% 500 ML INJ 500 ML IV SCH ×2 (02:19→14:01)
[2017-09-11] MEDS: CHLORHEXIDINE GLUCONATE 2 % 1 PACK (2 CLOTHS) TOP SCH (03:54)
[2017-09-11] MEDS: GENTAMICIN INJ 100 MG in SODIUM CHLORIDE 0.9% INJ 100 ML IV SCH ×3 (05:06→20:50)
[2017-09-11 05:33] LABS: RETIC # 104.4 MIL/L (20.0-150.0); RETIC % 3.6 % (0.4-3.0)
[2017-09-11 05:35] LABS: HEMATOCRIT 21.1 % (35.0-46.0); MEAN CELL VOLUME 71.6 FL (80.0-100.0); MEAN CORPUSCULAR HGB CONC 32.2 % (32.0-36.0); MEAN PLATELET VOLUME 8.3 FL (7.0-11.0); PLATELET COUNT 342 TH/MM3 (150-450); RED BLOOD COUNT 2.94 MIL/MM3 (4.00-5.30); RED CELL DISTRIBUTION WIDTH 19.2 % (11.6-17.2); WHITE BLOOD COUNT 16.3 TH/MM3 (4.0-11.0)
[2017-09-11 06:13] LABS: HEMOGLOBIN 6.8 GM/DL (11.6-15.3)
[2017-09-11] MEDS: DOCUSATE SODIUM 50 MG/SENNA 8.6 MG TAB PO SCH ×2 (07:59→20:51)
[2017-09-11] MEDS: FAMOTIDINE 20 MG TAB PO SCH ×2 (07:59→20:54)
[2017-09-11] MEDS: ACETAMINOPHEN/HYDROcodone 325 MG/10 MG TAB PO PRN ×3 (08:00→21:27)
[2017-09-11] MEDS: SODIUM CHLORIDE 0.9% FLUSH 10 ML FLUSH IV FLUSH SCH ×2 (08:01→19:50)
[2017-09-11] MEDS: RESP: ALBUTEROL 2.5 MG/3 ML NEB (PRN) NEB (10:51)
[2017-09-11] MEDS ORDERED: ACETAMINOPHEN 325 MG TAB PO PRN (13:00)
[2017-09-11] MEDS ORDERED: SODIUM CHLOR 0.9% 250 ML INJ 250 ML IV ONE (13:00)
[2017-09-11] MEDS ORDERED: diphenhydrAMINE HCL 25 MG CAP PO PRN (13:00)
--- NOTE | 2017-09-11 13:17 | PD.ONC.PN ---
Subjective Subjective Remarks Afebrile overnight. Patient resting in room. she is feeling short of breath today. no obvious blood in stool. Objective Data Date Time Temp Pulse Resp B/P (MAP) Pulse Ox O2 Delivery O2 Flow Rate FiO2 09/11/17 10:30 105 25 89/61 (70) 88 09/11/17 10:00 101 46 85/66 (72) 98 09/11/17 09:30 109 29 87/58 (68) 97 09/11/17 09:00 111 37 90/54 (66) 98 09/11/17 08:31 112 30 108/68 (81) 99 09/11/17 08:00 99.2 107 25 96/75 (82) 100 09/11/17 07:00 98 Nasal Cannula 3.00 09/11/17 06:00 106 09/11/17 04:00 107 09/11/17 04:00 98.4 107 26 110/64 (79) 98 09/11/17 02:00 113 09/11/17 00:00 100.0 122 28 92/51 (65) 99 09/11/17 00:00 122 09/10/17 22:00 122 09/10/17 20:38 98.2 104 26 110/59 98 09/10/17 20:20 98.4 104 25 86/67 98 09/10/17 20:03 98.5 106 28 95/66 96 09/10/17 20:00 103 09/10/17 20:00 98.5 103 25 95/66 (76) 96 09/10/17 19:05 98 Nasal Cannula 3.00 09/10/17 19:00 96 Nasal Cannula 3.00 09/10/17 18:28 26 09/10/17 18:00 107 09/10/17 17:30 98.5 109 28 90/57 (68) 95 09/10/17 16:00 120 09/10/17 16:00 101.5 120 29 108/55 (72) 94 09/10/17 14:39 99.9 120 30 100/71 95 09/10/17 14:00 116 09/11/17 09/11/17 09/11/17 07:00 15:00 23:00 Intake Total 1402.5 ml Output Total 700 ml Balance 702.5 ml Result Diagram: 09/11/17 0450 09/10/17 0500 Laboratory Results Laboratory Tests Test 09/10/17 15:25 09/10/17 16:28 09/11/17 04:50 Iron Level 22 MCG/DL Total Iron Binding Capacity 288 MCG/DL Percent Iron Saturation 7.6 % Vitamin B12 Level 842 PG/ML Folate 12.4 NG/ML Urine Occult Blood SMALL White Blood Count 16.3 TH/MM3 Red Blood Count 2.94 MIL/MM3 Hemoglobin 6.8 GM/DL Hematocrit 21.1 % Mean Corpuscular Volume 71.6 FL Mean Corpuscular Hemoglobin 23.0 PG Mean Corpuscular Hemoglobin Concent 32.2 % Red Cell Distribution Width 19.2 % Platelet Count 342 TH/MM3 Mean Platelet Volume 8.3 FL Reticulocyte Count 3.6 % Absolute Reticulocyte Count 104.4 MIL/L Activated Partial Thromboplast Time 58.5 SEC Fibrinogen 485 mg/dL Culture Results Microbiology Date/Time Source Procedure Growth Status 09/09/17 05:50 Blood Peripheral Aerobic Blood Culture - Preliminary NO GROWTH IN 2 DAYS Resulted 09/09/17 05:50 Blood Peripheral Anaerobic Blood Culture - Preliminary NO GROWTH IN 2 DAYS Resulted 09/08/17 21:20 Blood Line Aerobic Blood Culture - Preliminary NO GROWTH IN 3 DAYS Resulted 09/08/17 21:20 Blood Line Anaerobic Blood Culture - Preliminary NO GROWTH IN 3 DAYS Resulted 09/10/17 12:28 Stool Stool Stool Occult Blood (DONNY) - Final HEMOCCULT NEGATIVE Complete 09/08/17 21:50 Sputum Expectorated Sputum Gram Stain - Final Complete 09/08/17 21:50 Sputum Expectorated Sputum Sputum Culture - Final HEAVY GROWTH NORMAL RESPIRATORY PATRICIA Complete Administered Medications Medications (Trade) Dose Ordered Sig/Jessica Route PRN Reason Start Time Stop Time Status Last Admin Dose Admin Sodium Chloride (NS Flush) 2 ml BID IV FLUSH 09/01/17 09:00 09/11/17 08:01 Acetaminophen (Tylenol) 650 mg Q6H PRN PO fever 08/31/17 22:00 09/10/17 16:02 Temazepam (Restoril) 15 mg HS PRN PO INSOMNIA 08/31/17 22:00 09/09/17 00:27 Chlorhexidine Gluconate (Chlorhexidine 2% Cloth) Taper DAILY@04 TOP 09/01/17 04:00 08/28/18 03:59 09/11/17 03:54 Senna/Docusate Sodium (Armida-Colace) 1 tab BID PO 09/01/17 09:00 09/09/17 20:25 Ampicillin Sodium 2000 mg/Sodium Chloride 100 ml @ 400 mls/hr Q6H IV 09/01/17 14:00 09/11/17 08:00 Hydromorphone HCl (Dilaudid Pf Inj) 2 mg Q4H PRN IV PUSH PAIN SCALE 6 TO 10 09/02/17 15:00 09/11/17 10:13 Loperamide HCl (Imodium) 2 mg Q4H PRN PO Diarrhea 09/03/17 16:15 09/05/17 14:32 Gentamicin Sulfate 100 mg/ Sodium Chloride 102.5 ml @ 100 mls/hr Q8H IV 09/03/17 21:00 09/11/17 05:06 Albuterol Sulfate (Albuterol Neb) 2.5 mg Q2HR NEB PRN NEB dyspnea 09/04/17 11:30 09/11/17 10:51 Famotidine (Pepcid) 20 mg BID PO 09/04/17 21:00 09/11/17 07:59 Argatroban 250 mg/ Sodium Chloride 252.5 ml @ 3.11 mls/hr TITRATE PRN IV aPTT < 50 09/06/17 19:15 09/08/17 18:58 Acetaminophen/ Hydrocodone Bitart ([place] 10-325 Mg) 1 tab Q4H PRN PO pain 1-5 09/09/17 15:00 09/11/17 08:00 Vancomycin HCl 1750 mg/Sodium Chloride 517.5 ml @ 260 mls/hr Q12H IV 09/10/17 02:00 09/11/17 02:19 Objective Remarks GENERAL: chronically ill appearing young woman, sitting up in bed appears dyspneic. SKIN: Warm and dry. HEAD: Normocephalic. EYES: No injection or drainage. NECK: Supple, trachea midline. CARDIOVASCULAR: Regular rate and rhythm RESPIRATORY: scattered rhonchi. on 3L O2 via NC GASTROINTESTINAL: Abdomen soft, non-tender, nondistended. EXTREMITIES: No cyanosis, or edema. NEUROLOGICAL: awake and alert. normal speech. moving all extremities. Assessment/Plan Problem List: (1) arterial blood clot Plan: --on Argatroban (direct thrombin inhibitor) -- no significant family history of thrombotic events to suggest hereditary antithrombin deficiency. suspect the antithrombin deficiency comes from her impaired production from her liver disease. --has chronic active hepatitis C. ++increased consumption from disseminated intravascular coagulation and acute illness, bacterial endocarditis. --Protein losses are also considered. She had mild proteinuria when she first was admitted. --Thrombin inactivates antithrombin. This would abrogate the effect of unfractionated heparin and low molecular weight heparin. (2) Acute septic pulmonary embolism ICD Codes: I26.90 - Septic pulmonary embolism without acute cor pulmonale Plan: -- The echocardiogram on 09/08 showed an estimated EF of 50-55%. There was severe tricuspid regurgitation with prosthesis in place. 2 x 4 cm mobile vegetation was seen on the valve. The right atrium and right ventricle were normal in size and function (3) Microcytic anemia ICD Codes: D50.9 - Iron deficiency anemia, unspecified Plan: --likely d/t inflammation/infection. no evidence of bleeding or hemolysis. --B12/folate WNL --low iron and percent saturation. normal TIBC, elevated ferritin-->more consistent with anemia of chronic disease. --stool Hemoccult negative. --no evidence of hemolysis Assessment 36y/o female admitted with recurrent endocarditis. hematology consulted for anticoagulation assistance. h/o Recurrent bacterial endocarditis, bacteremia, history of prosthetic aortic valve and subsequent redo, chronic active hepatitis C, intravenous drug use, microcytic anemia, consistent with iron deficiency, left lower extremity arterial event, bacterial endocarditis with viridans streptococcus. HPI (brought forward for continuity of care): history of IV drug abuse and recurrent endocarditis. had a relapse of her activity. has history of pulmonary embolism and infected valves. +significant congestive heart failure and presented to the emergency room on 08/31/2017, with sepsis. is followed by Infectious Disease for her endocarditis. previously received antibiotic therapy for enterococcus faecalis and staph aureus. There is questionable compliance. Her current blood culture from 08/31/2017, shows viridans streptococcus. Two out of two bottles were positive. She is on ampicillin and gentamicin. course is complicated by cold left lower extremity, evaluated by Vascular Surgery. 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 There is satisfactory calf runoff present. For this reason , conservative management with anticoagulation is continued. was placed on unfractionated heparin. Her heparin dose has been titrated from 1000 units/ hour to 2500 units/hour with a PTT remaining subtherapeutic. Her last PTT is 32 seconds from 09/06/2017, at 2 p.m. For this reason, Hematology/Oncology is consulted. Plan 1. continue Argatroban. 2. give 1unit pRBC 3. will start coumadin once hgb stable. Attending Statement Agree with above. Continue with plans. Noted MRI with artifact. Jennifer Bailey Sep 11, 2017 13:17 Myra Silva MD Sep 11, 2017 18:07
[2017-09-11] MEDS ORDERED: PHARMACY ORDERED LAB ONE (13:45)
--- NOTE | 2017-09-11 15:11 | HHI.IDPN ---
Note Infectious Disease Note Patient is in no acute distress. She feels okay. She had a temperature of 101 yesterday afternoon. States that her breathing is okay. Denies headache. She is afebrile. 36-year-old white female who has a history of endocarditis and has been admitted several times for the same. The patient developed shortness of breath, fever and chills, and presented to the emergency department. The patient is noted to be actively using IV drugs. She has history of significant CHF from prior valvular heart disease related to endocarditis. She states that she started feeling short of breath about a week ago and the shortness of breath worsened. After she completed IV antibiotics in April she was put on doxycycline prophylaxis. She reports that she has not been taking the doxycycline. PAST MEDICAL HISTORY: Hepatitis C. IV drug use. prosthetic aortic valve replacement in 2010 and then redo aortic valve replacement in December 2015 MEDICATIONS: 1. Gentamicin. 2. Ampicillin. 3. Vancomycin. Current Medications Medications (Trade) Dose Ordered Sig/Jessica Route PRN Reason Start Time Stop Time Status Last Admin Dose Admin Sodium Chloride (NS Flush) 2 ml UNSCH PRN IV FLUSH FLUSH AFTER USING IV ACCESS 08/31/17 22:00 Sodium Chloride (NS Flush) 2 ml BID IV FLUSH 09/01/17 09:00 09/11/17 08:01 Acetaminophen (Tylenol) 650 mg Q6H PRN PO fever 08/31/17 22:00 09/10/17 16:02 Ondansetron HCl (Zofran Inj) 4 mg Q6H PRN IV PUSH NAUSEA OR VOMITING 08/31/17 22:00 Temazepam (Restoril) 15 mg HS PRN PO INSOMNIA 08/31/17 22:00 09/09/17 00:27 Miscellaneous Information 1 [id number] XX 08/31/17 22:00 Chlorhexidine Gluconate (Chlorhexidine 2% Cloth) Taper DAILY@04 TOP 09/01/17 04:00 08/28/18 03:59 09/11/17 03:54 Chlorhexidine Gluconate (Chlorhexidine 2% Cloth) 3 pack UNSCH PRN TOP HYGIENIC CARE 08/31/17 22:00 Senna/Docusate Sodium (Armida-Colace) 1 tab BID PO 09/01/17 09:00 09/09/17 20:25 Magnesium Hydroxide (Milk Of Magnesia Liq) 30 ml Q12H PRN PO Mild constipation 08/31/17 22:00 Sennosides (Senokot) 17.2 mg Q12H PRN PO Moderate constipation 08/31/17 22:00 Bisacodyl (Dulcolax Supp) 10 mg DAILY PRN RECTAL SEVERE CONSITIPATION 08/31/17 22:00 Lactulose (Lactulose Liq) 30 ml DAILY PRN PO SEVERE CONSITIPATION 08/31/17 22:00 Ampicillin Sodium 2000 mg/Sodium Chloride 100 ml @ 400 mls/hr Q6H IV 09/01/17 14:00 09/11/17 13:24 Hydromorphone HCl (Dilaudid Pf Inj) 2 mg Q4H PRN IV PUSH PAIN SCALE 6 TO 10 09/02/17 15:00 09/11/17 14:20 Loperamide HCl (Imodium) 2 mg Q4H PRN PO Diarrhea 09/03/17 16:15 09/05/17 14:32 Gentamicin Sulfate 100 mg/ Sodium Chloride 102.5 ml @ 100 mls/hr Q8H IV 09/03/17 21:00 09/11/17 13:24 Albuterol Sulfate (Albuterol Neb) 2.5 mg Q2HR NEB PRN NEB dyspnea 09/04/17 11:30 09/11/17 10:51 Famotidine (Pepcid) 20 mg BID PO 09/04/17 21:00 09/11/17 07:59 Argatroban 250 mg/ Sodium Chloride 252.5 ml @ 3.11 mls/hr TITRATE PRN IV aPTT < 50 09/06/17 19:15 09/08/17 18:58 Pharmacy Profile Note 0 ml @ 0 mls/hr UNSCH OTHER 09/08/17 16:45 Acetaminophen/ Hydrocodone Bitart ([place] 10-325 Mg) 1 tab Q4H PRN PO pain 1-5 09/09/17 15:00 09/11/17 08:00 Vancomycin HCl 1750 mg/Sodium Chloride 517.5 ml @ 260 mls/hr Q12H IV 09/10/17 02:00 09/11/17 14:01 Sodium Chloride 250 ml @ 15 mls/hr ONCE ONCE IV 09/11/17 13:00 3/7/18 05:39 09/11/17 14:21 Acetaminophen (Tylenol) 650 mg Q4H PRN PO SEE LABEL COMMENTS 09/11/17 13:00 09/11/17 23:59 Diphenhydramine HCl (Benadryl) 25 mg Q4H PRN PO SEE LABEL COMMENTS 09/11/17 13:00 09/11/17 23:59 09/11/17 14:21 SOCIAL HISTORY: Positive occasional alcohol. No tobacco. IV drug use in the form of Dilaudid, oxycodone. The patient also uses marijuana. OBJECTIVE: Vital Signs Date Time Temp Pulse Resp B/P (MAP) Pulse Ox O2 Delivery O2 Flow Rate FiO2 09/11/17 14:43 98.8 100 21 103/74 95 09/11/17 13:30 101 25 106/67 (80) 97 09/11/17 13:00 105 25 115/76 (89) 96 09/11/17 12:30 101 24 96/68 (77) 96 09/11/17 12:00 98.6 105 30 93/63 (73) 93 09/11/17 11:30 104 23 88/53 (65) 95 09/11/17 11:16 100 22 84/50 (61) 98 09/11/17 11:00 101 24 88 09/11/17 10:30 105 25 89/61 (70) 88 09/11/17 10:00 101 46 85/66 (72) 98 09/11/17 09:30 109 29 87/58 (68) 97 09/11/17 09:00 111 37 90/54 (66) 98 09/11/17 08:31 112 30 108/68 (81) 99 09/11/17 08:00 99.2 107 25 96/75 (82) 100 09/11/17 07:00 98 Nasal Cannula 3.00 09/11/17 06:00 106 09/11/17 04:00 107 09/11/17 04:00 98.4 107 26 110/64 (79) 98 09/11/17 02:00 113 09/11/17 00:00 100.0 122 28 92/51 (65) 99 09/11/17 00:00 122 09/10/17 22:00 122 09/10/17 20:38 98.2 104 26 110/59 98 09/10/17 20:20 98.4 104 25 86/67 98 09/10/17 20:03 98.5 106 28 95/66 96 09/10/17 20:00 103 09/10/17 20:00 98.5 103 25 95/66 (76) 96 09/10/17 19:05 98 Nasal Cannula 3.00 09/10/17 19:00 96 Nasal Cannula 3.00 09/10/17 18:28 26 09/10/17 18:00 107 09/10/17 17:30 98.5 109 28 90/57 (68) 95 09/10/17 16:00 120 09/10/17 16:00 101.5 120 29 108/55 (72) 94 Laboratory Tests Test 09/10/17 05:00 09/10/17 09:30 09/10/17 12:20 09/11/17 04:50 White Blood Count 19.0 TH/MM3 16.8 TH/MM3 16.3 TH/MM3 Red Blood Count 2.91 MIL/MM3 2.89 MIL/MM3 2.94 MIL/MM3 Hemoglobin 6.6 GM/DL 6.6 GM/DL 6.8 GM/DL Hematocrit 20.6 % 20.5 % 21.1 % Mean Corpuscular Volume 70.7 FL 70.7 FL 71.6 FL Mean Corpuscular Hemoglobin 22.7 PG 22.8 PG 23.0 PG Mean Corpuscular Hemoglobin Concent 32.1 % 32.2 % 32.2 % Red Cell Distribution Width 18.5 % 18.8 % 19.2 % Platelet Count 315 TH/MM3 313 TH/MM3 342 TH/MM3 Mean Platelet Volume 8.2 FL 8.3 FL 8.3 FL Neutrophils (%) (Auto) 83.4 % 88.0 % Lymphocytes (%) (Auto) 5.8 % 5.1 % Monocytes (%) (Auto) 9.6 % 5.8 % Eosinophils (%) (Auto) 0.5 % 0.6 % Basophils (%) (Auto) 0.7 % 0.5 % Neutrophils # (Auto) 15.8 TH/MM3 14.8 TH/MM3 Lymphocytes # (Auto) 1.1 TH/MM3 0.9 TH/MM3 Monocytes # (Auto) 1.8 TH/MM3 1.0 TH/MM3 Eosinophils # (Auto) 0.1 TH/MM3 0.1 TH/MM3 Basophils # (Auto) 0.1 TH/MM3 0.1 TH/MM3 CBC Comment DIFF FINAL DIFF FINAL Differential Comment Haptoglobin 256 MG/DL Reticulocyte Count 3.6 % Absolute Reticulocyte Count 104.4 MIL/L Laboratory Tests Test 09/10/17 05:00 09/10/17 12:20 09/10/17 15:25 Blood Urea Nitrogen 10 MG/DL Creatinine 0.85 MG/DL Random Glucose 137 MG/DL Calcium Level 8.2 MG/DL Phosphorus Level 3.9 MG/DL Magnesium Level 2.0 MG/DL Sodium Level 133 MEQ/L Potassium Level 3.8 MEQ/L Chloride Level 98 MEQ/L Carbon Dioxide Level 28.3 MEQ/L Anion Gap 7 MEQ/L Estimat Glomerular Filtration Rate 76 ML/MIN Lactate Dehydrogenase 405 U/L Iron Level 22 MCG/DL Total Iron Binding Capacity 288 MCG/DL Percent Iron Saturation 7.6 % Vitamin B12 Level 842 PG/ML Folate 12.4 NG/ML Microbiology Date/Time Source Procedure Growth Status 09/09/17 05:50 Blood Peripheral Aerobic Blood Culture - Preliminary NO GROWTH IN 2 DAYS Resulted 09/09/17 05:50 Blood Peripheral Anaerobic Blood Culture - Preliminary NO GROWTH IN 2 DAYS Resulted 09/08/17 21:20 Blood Line Aerobic Blood Culture - Preliminary NO GROWTH IN 3 DAYS Resulted 09/08/17 21:20 Blood Line Anaerobic Blood Culture - Preliminary NO GROWTH IN 3 DAYS Resulted 09/10/17 12:28 Stool Stool Stool Occult Blood (DONNY) - Final HEMOCCULT NEGATIVE Complete 09/08/17 21:50 Sputum Expectorated Sputum Gram Stain - Final Complete 09/08/17 21:50 Sputum Expectorated Sputum Sputum Culture - Final HEAVY GROWTH NORMAL RESPIRATORY PATRICIA Complete IMAGING: Chest X-Ray 09/10/17 0600 Signed Impressions: Service Date/Time: Sunday, September 10, 2017 03:52 - CONCLUSION: There is a small to moderate size right pleural effusion with associated volume loss and/or airspace consolidation. The pleural effusion has increased from the prior examination. Adalid Galo MD Head CT 09/08/17 0000 Signed Impressions: Service Date/Time: Friday, September 08, 2017 10:22 - CONCLUSION: 1. Focal area of decreased density involving the right parietal lobe. As a new finding from the prior exam. This could relate to a small infarct. MRI of the brain with gadolinium suggested to further evaluate. 2. Small lacunar infarction involving the left centrum semiovale. Ananth Ponce Jr., MD CT Angiography 09/08/17 0000 Signed Impressions: Service Date/Time: Friday, September 08, 2017 10:28 - CONCLUSION: There extensive pulmonary emboli bilaterally. There is near complete cut off of the right lower lobe pulmonary artery. Prominent filling defects on the left as well. These findings were relayed to Dr. Dominguez immediately at the completion of the study. Scattered pulmonary infiltrates, small pleural effusion and extensive mediastinal lymphadenopathy as described above. Karsten Crowder MD Brain MRI 09/08/17 0000 Signed Impressions: Service Date/Time: Friday, September 08, 2017 18:04 - CONCLUSION: Deterioration in the appearance of the scan. At least 3 focal areas of abnormal contrast enhancement are present scattered to in both hemispheres. Given the history this most likely represents developing areas cerebritis. Exam is compromised by an uncooperative patient and motion artifact. These 2 factors make detection of other abnormalities such as cortical cephalitis and meningitis difficult to exclude. Cannot exclude hemorrhagic lesions as well. There is no mass effect evident. Geremias Mauricio MD Renal Ultrasound 09/01/17 0000 Signed Impressions: Service Date/Time: Friday, September 01, 2017 10:53 - CONCLUSION: 1. No evidence of hydronephrosis. 2. Thickening of the urinary bladder wall a 1.1 cm. 3. Prominent splenomegaly. Baldemar Pineda MD Chest X-Ray 09/01/17 0000 Signed Impressions: Service Date/Time: Friday, September 01, 2017 09:36 - CONCLUSION: Right internal jugular central line in place with the tip overlying the SVC. A pneumothorax is not seen. Adlaid Haney MD Breast Ultrasound 09/01/17 0000 Signed Impressions: Service Date/Time: Friday, September 01, 2017 10:48 - CONCLUSION: Negative targeted right breast ultrasound examination. Adalid Haney MD Lower Extremity Ultrasound 08/31/17 0000 Signed Impressions: Service Date/Time: Thursday, August 31, 2017 21:22 - CONCLUSION: 1. No sonographic evidence for lower extremity DVT. 2. Incidental note of bilateral inguinal adenopathy with the largest on the right measuring 3.3 cm and the largest on the left measuring 2.6 cm. This finding is nonspecific but is typically reactive in etiology. Luis Leija MD PHYSICAL EXAMINATION GENERAL: No acute distress. HEENT: No icterus. Oropharynx moist mucosa, no lesions. Neck: Supple without adenopathy. Lungs: Coarse bilateral rhonchi. Heart: 5/6 blowing systolic murmur at the upper right sternal border. Abdomen: Bowel sounds present, soft, obese, nontender. Extremities: Diffuse 1+ edema of the lower extremities. Lesions at Left tibia distally and left foot and great toe are more red and not purpuric as before. Toes 3 and 5 are less cyanotic. The leg is less tender on palpation. It is warm. No calf tenderness. No nail bed hemorrhages. SKIN: no diffuse rash. Neuro: No gross focal findings. Psychiatric: calm and cooperative. IMPRESSION 1. Sepsis. Strep Viridans. 2. Tricuspid valve endocarditis. Large vegetation. Tricuspid regurgitation. Patient evaluated by cardiovascular surgery and felt not to be a surgical candidate. 3. Bacteremia. Strep viridans. Repeat blood cultures are pending. Previous repeat blood cultures were negative. 4. History of prosthetic aortic valve and so likely recurrent prosthetic valve endocarditis. 5. Cerebritis on MRI. Also has parietal infarct noted on CT scan of the brain. 6. Left renal cortical and pulmonary and lower extremity septic emboli. 7. Leukocytosis secondary to sepsis from showering of emboli from endocarditis. 8. Acute renal failure. Kidney function improved. Patient remains very critically ill. RECOMMENDATIONS 1. Continue Ampicillin intravenous. 2. Continue Gentamicin. now that the kidney function is improved but follow the renal function. 3. Continue vancomycin. Pharmacy managing. 4. Monitor clinical response. 5. Continue to monitor the left leg lesions. 6. Consider lumbar puncture if the mentation deteriorates. She may be developing abscess if Her mental status deteriorates. Edmar Sloan MD Sep 11, 2017 15:11
[2017-09-11 16:21] LABS: BICARBONATE 29.4 MEQ/L (21.0-32.0); CALCIUM 8.3 MG/DL (8.5-10.1); CREATININE 0.84 MG/DL (0.50-1.00)
[2017-09-11 16:23] LABS: VANCOMYCIN TROUGH 19.2 MCG/ML (5.0-10.0)
--- NOTE | 2017-09-11 17:44 | HHI.HCPN ---
Reason for visit a. To assist with evaluation and management of symptoms including: chest pain, dyspnea. b. To assist medical decision maker(s) with: better understanding of current medical conditions; weighing benefits/burdens of medical treatment options; making medical treatment decisions. . Subjective/Interval History Patient seen and examined in ICU. No family at bedside. Patient is awake and alert. She appears dyspneic at rest, worsens with conversation, remains on oxygen via nasal cannula 3LPM. Vital signs stable. Afebrile. WBC remains elevated 16.3, hemoglobin 6.8 (getting PRBCs during my visit), platelets 342. Hemoccult negative. 09/09/16 blood culture no growth in 2 days. 09/08/17 sputum culture heavy growth normal respiratory vincent. Patient with persistent cough. No new imaging. Infectious disease following. Patient remains critically ill. Patient was able to get out of bed to chair with PT earlier today. Patient reports persistent chest pain and right side pain, currently rates her pain 8 out of 10. Reports some relief with as needed hydromorphone 2 mg IV every 4 hours as needed, she has had 6 doses in the past 24 hours. Conversation with patient to provide medical update. Advised that I spoke with her mother Fany via telephone on 09/10/17 to provide medical update. She verbalizes appreciation, patient acknowledges that it has been difficult to keep her mother informed given her shortness of breath. Goals remain aggressive. . Family/friend interactions No family at bedside. Palliative care number provided to patient's mother on 09/10/17. No significant clinical change will continue to periodically update patient's mother as needed. . Advance Directives Living Will: Never completed Health Care Surrogate: Never completed Durable Power of Tax Investigator: Never completed Advance Directive Specifics Health Care Surrogate(s): No written advanced directives, patient refused to complete advanced directives during last admission. Patient a single. Children are juvenile. In the absence of written advanced directives, according to [place] statutes health care proxy decision-making falls to a parent. . Significant change in goals: FULL CODE. Patient's goals remain aggressive. . Objective Vital Signs Date Time Temp Pulse Resp B/P (MAP) Pulse Ox O2 Delivery O2 Flow Rate FiO2 09/11/17 15:00 98.4 100 21 101/87 96 09/11/17 14:43 98.8 100 21 103/74 95 09/11/17 13:30 101 25 106/67 (80) 97 09/11/17 13:00 105 25 115/76 (89) 96 09/11/17 12:30 101 24 96/68 (77) 96 09/11/17 12:00 98.6 105 30 93/63 (73) 93 09/11/17 11:30 104 23 88/53 (65) 95 09/11/17 11:16 100 22 84/50 (61) 98 09/11/17 11:00 101 24 88 09/11/17 10:30 105 25 89/61 (70) 88 09/11/17 10:00 101 46 85/66 (72) 98 09/11/17 09:30 109 29 87/58 (68) 97 09/11/17 09:00 111 37 90/54 (66) 98 09/11/17 08:31 112 30 108/68 (81) 99 09/11/17 08:00 99.2 107 25 96/75 (82) 100 09/11/17 07:00 98 Nasal Cannula 3.00 09/11/17 06:00 106 09/11/17 04:00 107 09/11/17 04:00 98.4 107 26 110/64 (79) 98 09/11/17 02:00 113 09/11/17 00:00 100.0 122 28 92/51 (65) 99 09/11/17 00:00 122 09/10/17 22:00 122 09/10/17 20:38 98.2 104 26 110/59 98 09/10/17 20:20 98.4 104 25 86/67 98 09/10/17 20:03 98.5 106 28 95/66 96 09/10/17 20:00 103 09/10/17 20:00 98.5 103 25 95/66 (76) 96 09/10/17 19:05 98 Nasal Cannula 3.00 09/10/17 19:00 96 Nasal Cannula 3.00 09/10/17 18:28 26 09/10/17 18:00 107 Intake & Output 09/11/17 09/11/17 07:00 19:00 Intake Total 1802.5 ml 15 ml Output Total 700 ml Balance 1102.5 ml 15 ml Intake Oral 480 ml IV Total 922.5 ml Packed Cells 400 ml Blood Product IV Normal Saline Flush 15 ml Output Urine Total 700 ml # Bowel Movements 0 Physical Exam CONSTITUTIONAL/GENERAL: This is an adequately nourished patient, with mildly labored respirations, worsens with conversation. TUBES/LINES/DRAINS: NC, right IJ central line, Purewick catheter. SKIN: Ecchymoses on extremities. No wounds seen anteriorly. Skin temperature appropriate. Not diaphoretic. EYES: Pupils equal and round and reactive. CARDIOVASCULAR: systolic murmur noted. tachycardic. RESPIRATORY/CHEST: Cough noted. Labored respirations at rest, worsens with conversation. Bilateral course breath sounds. GASTROINTESTINAL: Abdomen soft, rounded, non-tender, nondistended. No guarding. Bowel sounds present. GENITOURINARY: Without palpable bladder distension. Purewick catheter in place. MUSCULOSKELETAL: Extremities with 1+ edema. lesions noted Left foot and LE. LLE tender to light palpation below the knee to foot. NEUROLOGICAL: Awake, lethargic. Follows commands. Moves all extremities. PSYCHIATRIC: Calm. Denies hallucinations. . Diagnostic Tests Laboratory Laboratory Tests Test 09/08/17 21:50 09/09/17 05:00 09/09/17 10:00 09/09/17 18:15 Urine Opiates Screen POS (NEG) Urine Barbiturates Screen NEG (NEG) Urine Amphetamines Screen NEG (NEG) Urine Benzodiazepines Screen NEG (NEG) Urine Cocaine Screen NEG (NEG) Urine Cannabinoids Screen NEG (NEG) White Blood Count 21.1 TH/MM3 (4.0-11.0) Red Blood Count 3.30 MIL/MM3 (4.00-5.30) Hemoglobin 7.4 GM/DL (11.6-15.3) Hematocrit 23.0 % (35.0-46.0) Mean Corpuscular Volume 69.8 FL (80.0-100.0) Mean Corpuscular Hemoglobin 22.4 PG (27.0-34.0) Mean Corpuscular Hemoglobin Concent 32.0 % (32.0-36.0) Red Cell Distribution Width 17.9 % (11.6-17.2) Platelet Count 291 TH/MM3 (150-450) Mean Platelet Volume 8.4 FL (7.0-11.0) Neutrophils (%) (Auto) 84.6 % (16.0-70.0) Lymphocytes (%) (Auto) 5.7 % (9.0-44.0) Monocytes (%) (Auto) 8.8 % (0.0-8.0) Eosinophils (%) (Auto) 0.4 % (0.0-4.0) Basophils (%) (Auto) 0.5 % (0.0-2.0) Neutrophils # (Auto) 17.8 TH/MM3 (1.8-7.7) Lymphocytes # (Auto) 1.2 TH/MM3 (1.0-4.8) Monocytes # (Auto) 1.9 TH/MM3 (0-0.9) Eosinophils # (Auto) 0.1 TH/MM3 (0-0.4) Basophils # (Auto) 0.1 TH/MM3 (0-0.2) CBC Comment DIFF FINAL Differential Comment Activated Partial Thromboplast Time 77.9 SEC (24.3-30.1) 57.3 SEC (24.3-30.1) Blood Urea Nitrogen 10 MG/DL (7-18) Creatinine 0.79 MG/DL (0.50-1.00) Random Glucose 119 MG/DL (74-106) Total Protein 6.8 GM/DL (6.4-8.2) Albumin 2.4 GM/DL (3.4-5.0) Calcium Level 8.7 MG/DL (8.5-10.1) Phosphorus Level 4.3 MG/DL (2.5-4.9) Magnesium Level 2.1 MG/DL (1.5-2.5) Alkaline Phosphatase 113 U/L (45-117) Aspartate Amino Transf (AST/SGOT) 17 U/L (15-37) Alanine Aminotransferase (ALT/SGPT) 11 U/L (10-53) Total Bilirubin 0.7 MG/DL (0.2-1.0) Sodium Level 134 MEQ/L (136-145) Potassium Level 4.4 MEQ/L (3.5-5.1) Chloride Level 99 MEQ/L (98-107) Carbon Dioxide Level 29.3 MEQ/L (21.0-32.0) Anion Gap 6 MEQ/L (5-15) Estimat Glomerular Filtration Rate 83 ML/MIN (>89) Vancomycin Level Trough 25.8 MCG/ML (5.0-10.0) Test 09/10/17 05:00 09/10/17 09:30 09/10/17 12:20 09/10/17 15:25 White Blood Count 19.0 TH/MM3 (4.0-11.0) 16.8 TH/MM3 (4.0-11.0) Red Blood Count 2.91 MIL/MM3 (4.00-5.30) 2.89 MIL/MM3 (4.00-5.30) Hemoglobin 6.6 GM/DL (11.6-15.3) 6.6 GM/DL (11.6-15.3) Hematocrit 20.6 % (35.0-46.0) 20.5 % (35.0-46.0) Mean Corpuscular Volume 70.7 FL (80.0-100.0) 70.7 FL (80.0-100.0) Mean Corpuscular Hemoglobin 22.7 PG (27.0-34.0) 22.8 PG (27.0-34.0) Mean Corpuscular Hemoglobin Concent 32.1 % (32.0-36.0) 32.2 % (32.0-36.0) Red Cell Distribution Width 18.5 % (11.6-17.2) 18.8 % (11.6-17.2) Platelet Count 315 TH/MM3 (150-450) 313 TH/MM3 (150-450) Mean Platelet Volume 8.2 FL (7.0-11.0) 8.3 FL (7.0-11.0) Neutrophils (%) (Auto) 83.4 % (16.0-70.0) 88.0 % (16.0-70.0) Lymphocytes (%) (Auto) 5.8 % (9.0-44.0) 5.1 % (9.0-44.0) Monocytes (%) (Auto) 9.6 % (0.0-8.0) 5.8 % (0.0-8.0) Eosinophils (%) (Auto) 0.5 % (0.0-4.0) 0.6 % (0.0-4.0) Basophils (%) (Auto) 0.7 % (0.0-2.0) 0.5 % (0.0-2.0) Neutrophils # (Auto) 15.8 TH/MM3 (1.8-7.7) 14.8 TH/MM3 (1.8-7.7) Lymphocytes # (Auto) 1.1 TH/MM3 (1.0-4.8) 0.9 TH/MM3 (1.0-4.8) Monocytes # (Auto) 1.8 TH/MM3 (0-0.9) 1.0 TH/MM3 (0-0.9) Eosinophils # (Auto) 0.1 TH/MM3 (0-0.4) 0.1 TH/MM3 (0-0.4) Basophils # (Auto) 0.1 TH/MM3 (0-0.2) 0.1 TH/MM3 (0-0.2) CBC Comment DIFF FINAL DIFF FINAL Differential Comment Activated Partial Thromboplast Time 62.3 SEC (24.3-30.1) Blood Urea Nitrogen 10 MG/DL (7-18) Creatinine 0.85 MG/DL (0.50-1.00) Random Glucose 137 MG/DL (74-106) Calcium Level 8.2 MG/DL (8.5-10.1) Phosphorus Level 3.9 MG/DL (2.5-4.9) Magnesium Level 2.0 MG/DL (1.5-2.5) Sodium Level 133 MEQ/L (136-145) Potassium Level 3.8 MEQ/L (3.5-5.1) Chloride Level 98 MEQ/L (98-107) Carbon Dioxide Level 28.3 MEQ/L (21.0-32.0) Anion Gap 7 MEQ/L (5-15) Estimat Glomerular Filtration Rate 76 ML/MIN (>89) Haptoglobin 256 MG/DL (30-200) Prothrombin Time 21.2 SEC (9.8-11.6) Prothromb Time International Ratio 2.1 RATIO Fibrinogen 485 mg/dL (227-377) Lactate Dehydrogenase 405 U/L (84-246) Iron Level 22 MCG/DL (50-170) Total Iron Binding Capacity 288 MCG/DL (250-450) Percent Iron Saturation 7.6 % (20-50) Vitamin B12 Level 842 PG/ML (193-986) Folate 12.4 NG/ML (3.1-17.5) Test 09/10/17 16:28 09/11/17 04:50 09/11/17 13:50 Urine Occult Blood SMALL (NEG) White Blood Count 16.3 TH/MM3 (4.0-11.0) Red Blood Count 2.94 MIL/MM3 (4.00-5.30) Hemoglobin 6.8 GM/DL (11.6-15.3) Hematocrit 21.1 % (35.0-46.0) Mean Corpuscular Volume 71.6 FL (80.0-100.0) Mean Corpuscular Hemoglobin 23.0 PG (27.0-34.0) Mean Corpuscular Hemoglobin Concent 32.2 % (32.0-36.0) Red Cell Distribution Width 19.2 % (11.6-17.2) Platelet Count 342 TH/MM3 (150-450) Mean Platelet Volume 8.3 FL (7.0-11.0) Reticulocyte Count 3.6 % (0.4-3.0) Absolute Reticulocyte Count 104.4 MIL/L (20.0-150.0) Activated Partial Thromboplast Time 58.5 SEC (24.3-30.1) Fibrinogen 485 mg/dL (227-377) Blood Urea Nitrogen 10 MG/DL (7-18) Creatinine 0.84 MG/DL (0.50-1.00) Random Glucose 126 MG/DL (74-106) Calcium Level 8.3 MG/DL (8.5-10.1) Sodium Level 133 MEQ/L (136-145) Potassium Level 3.0 MEQ/L (3.5-5.1) Chloride Level 95 MEQ/L (98-107) Carbon Dioxide Level 29.4 MEQ/L (21.0-32.0) Anion Gap 9 MEQ/L (5-15) Estimat Glomerular Filtration Rate 77 ML/MIN (>89) Vancomycin Level Trough 19.2 MCG/ML (5.0-10.0) Result Diagram: 09/11/17 5600 09/11/17 1510 Microbiology Microbiology Date/Time Source Procedure Growth Status 09/09/17 05:50 Blood Peripheral Aerobic Blood Culture - Preliminary NO GROWTH IN 2 DAYS Resulted 09/09/17 05:50 Blood Peripheral Anaerobic Blood Culture - Preliminary NO GROWTH IN 2 DAYS Resulted 09/08/17 21:20 Blood Line Aerobic Blood Culture - Preliminary NO GROWTH IN 3 DAYS Resulted 09/08/17 21:20 Blood Line Anaerobic Blood Culture - Preliminary NO GROWTH IN 3 DAYS Resulted 09/10/17 12:28 Stool Stool Stool Occult Blood (DONNY) - Final HEMOCCULT NEGATIVE Complete 09/08/17 21:50 Sputum Expectorated Sputum Gram Stain - Final Complete 09/08/17 21:50 Sputum Expectorated Sputum Sputum Culture - Final HEAVY GROWTH NORMAL RESPIRATORY VINCENT Complete Imaging Last Impressions Chest X-Ray 09/10/17 0600 Signed Impressions: Service Date/Time: Sunday, September 10, 2017 03:52 - CONCLUSION: There is a small to moderate size right pleural effusion with associated volume loss and/or airspace consolidation. The pleural effusion has increased from the prior examination. Adalid Galo MD Head CT 09/08/17 0000 Signed Impressions: Service Date/Time: Friday, September 08, 2017 10:22 - CONCLUSION: 1. Focal area of decreased density involving the right parietal lobe. As a new finding from the prior exam. This could relate to a small infarct. MRI of the brain with gadolinium suggested to further evaluate. 2. Small lacunar infarction involving the left centrum semiovale. Ananth Ponce Jr., MD CT Angiography 09/08/17 0000 Signed Impressions: Service Date/Time: Friday, September 08, 2017 10:28 - CONCLUSION: There extensive pulmonary emboli bilaterally. There is near complete cut off of the right lower lobe pulmonary artery. Prominent filling defects on the left as well. These findings were relayed to Dr. Dominguez immediately at the completion of the study. Scattered pulmonary infiltrates, small pleural effusion and extensive mediastinal lymphadenopathy as described above. Karsten Crowder MD Brain MRI 09/08/17 0000 Signed Impressions: Service Date/Time: Friday, September 08, 2017 18:04 - CONCLUSION: Deterioration in the appearance of the scan. At least 3 focal areas of abnormal contrast enhancement are present scattered to in both hemispheres. Given the history this most likely represents developing areas cerebritis. Exam is compromised by an uncooperative patient and motion artifact. These 2 factors make detection of other abnormalities such as cortical cephalitis and meningitis difficult to exclude. Cannot exclude hemorrhagic lesions as well. There is no mass effect evident. Geremias Mauricio MD Chest CT 09/03/17 0000 Signed Impressions: Service Date/Time: Sunday, September 03, 2017 12:41 - CONCLUSION: 1. There are at least 5 pulmonary nodules present bilaterally with the largest measuring 19 mm. None demonstrate cavitation but it is possible that these represent septic emboli. Suggest followup to assess for change. 2. Splenomegaly with subtle wedge-shaped areas of low-density in the mid spleen which could represent infarcts. 3. Mild cardiomegaly in this patient post aortic valve replacement. Low density of the cardiac blood pool suggests anemia. Adalid Galo MD Aorta w/Runoff CTA 09/02/17 0000 Signed Impressions: Service Date/Time: Saturday, September 02, 2017 12:47 - CONCLUSION: Left renal cortical infarction. 5-6 cm length total occlusion of the left superficial femoral artery in the proximal thigh. Nodular parenchymal opacities in the lung bases bilaterally See above discussion. Adalid Dallas MD Renal Ultrasound 09/01/17 0000 Signed Impressions: Service Date/Time: Friday, September 01, 2017 10:53 - CONCLUSION: 1. No evidence of hydronephrosis. 2. Thickening of the urinary bladder wall a 1.1 cm. 3. Prominent splenomegaly. Baldemar Pineda MD Breast Ultrasound 09/01/17 0000 Signed Impressions: Service Date/Time: Friday, September 01, 2017 10:48 - CONCLUSION: Negative targeted right breast ultrasound examination. Adalid Haney MD Lower Extremity Ultrasound 08/31/17 0000 Signed Impressions: Service Date/Time: Thursday, August 31, 2017 21:22 - CONCLUSION: 1. No sonographic evidence for lower extremity DVT. 2. Incidental note of bilateral inguinal adenopathy with the largest on the right measuring 3.3 cm and the largest on the left measuring 2.6 cm. This finding is nonspecific but is typically reactive in etiology. 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 2 juvenile children. Supported by her mother, step- father and boyfriend. Spiritual: Unknown. Legal: No known written advanced directives, family is going to try to find [employer] paperwork they think pt previously completed. Patient a single. Children are juvenile. If no written advanced directives, according to [place] statutes health care proxy decision-making falls to a parent. Ethical issues impacting care: No known concerns at this time. . Important Contacts * Fany Nielsen, mother/ HCP: [phone] * Karsten Nielsen, stepfather: [phone] . Prognosis Patient has grim prognosis. . Code Status: Full Code Plan * Decision Maker: No written advanced directives, patient refused to complete advanced directives during last admission. Patient a single. Children are juvenile. In the absence of written advanced directives, according to [place] statutes health care proxy decision-making falls to her mother, Fany Nielsen. Karsten Nielsen is a step-father. Declines completion of written advance directives 09/10/17. * FULL CODE. * Patient desires continued aggressive care including FULL CODE. * Will continue to provide periodic medical updates to patient's mother, Fany. Did not call 09/11/17 as there is no significant clinical change. Palliative care number previously provided. * SYMPTOMS: Pain: Potential sources include endocarditis, bedbound status, tubes etc. Patient with likely high tolerance given history of IV drug use, will monitor effective medications. Dyspnea: secondary to endocarditis, pulmonary emboli. Hallucination: patient thought she saw a bug on her arm during my visit, though knew it "wasn't really there." No medication recommendations at this time. * Palliative care will continue to follow throughout hospital course to assist with symptom management and clarification of goals as needed. . Attestation To help prompt me to consider important information that might be impacting today's encounter and assessment, information from prior notes written by myself or my colleagues may have been "brought forward" into today's note. My signature on this note, however, is an attestation that I personally performed the exam, history, and/or decision-making noted today, and, unless otherwise indicated, the interactions with patient, family, and staff as well as the review of records all occurred today. I also attest that the listed assessment and stated plan reflect my best clinical judgment today based on the combination of historical information, prior notes, and today's exam/ interactions. When time spent is documented, it refers only to time spent today by the signer, or if indicated, combined time spent today by collaborating physician/nurse practitioner. Shanice García Sep 11, 2017 17:44
--- NOTE | 2017-09-11 18:57 | HHI.CCPN ---
Subjective Remarks/Hospital Course 36-year-old female that presents to the ED for evaluation of shortness of breath and swelling. 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 Patient initially did not mention to anybody that she was doing drugs but she did tell me that she injected herself about 4 days ago. She uses Dilaudid. She states that she's been having fevers. Patient is somewhat somnolent and hard to assess she doesn't really provide much information. Family members at the bedside and he provides more information about the heart. Per patient she'll he takes 2 medications. Patient asked if she is taking any antibiotics and she said yes but when I ask her what kind is she is taking currently she states that she has not been on antibiotics for some time. Patient apparently does follow with a local honeycomb blanket maker but she cannot tell me the name of it. She states that she's been having swelling to her legs for the past month. She denies any recent travel or injury. No other medical issues at this time. No allergies to medication. 09/01: remains critical on Dopamine 10 mcg/ min. Appears ill. Limited bedside echo did not show any large vegetation, but exam was limited, tricuspid and aortic valve not well visualized. Also states that had right breast abscess 2 months ago, drained by herself. Now may have abscess vs scar tissue. Injects upper arm and bilateral breasts. US of right breast ordered 09/02: Remains on 3 mcg/min of Levophed. Complaints of severe left lower extremity pain. Erythematous purpuric purple discoloration of the left lower anterior segment left dorsum of the foot with cyanotic nailbeds. Weak DP pulses+ . 2D Echo failed to reveal definite vegetation. Will consider RACHEL 09/03: Continues to be on Levophed 3 mcg/min, remains critical. We are left lower extremity pain but slightly better. Currently on heparin not therapeutic yet. CTA with runoff showed Left renal cortical infarction. 5-6 cm length total occlusion of the left superficial femoral artery in the proximal thigh but good distal opacification. Dr. Palacios recommended IV heparin no surgical intervention at this time. Patient is still at high risk for further embolic episodes. Blood cultures growing strep viridans. Also patient complains about epigastric and left-sided abdominal pain and left-sided chest pain which is more pleuritic. Pain is severe on deep inspiration 09/04: Resting in bed in no acute distress. Dopplerable lower extremity pulses noted. Remains on heparin drip. Vascular surgery continues to follow. 09/05: Resting in bed in mild respiratory distress. Continues to cough. Nonproductive. Left lower extremity leg improved. Reviewed vascular surgeries note. Likely will require long-term medical regulation post hospitalization 09/06: Improve respiratory status today. Pain in left lower extremity much improved. Tolerating diet. 09/07: Currently on nasal cannula. Switch to Argatroban overnight by hematology. Okayed with vascular surgery. Pain in left lower extremity slowly improving day by day. Subjective 09/08: Resting in bed in some mild respiratory distress. Complaining of pleuritic chest pain specifically in the right flank region. Worse with deep inspiration. Reproducible with palpation. CT brain/CT pulmonary angiogram ordered. No neurological deficits noted on examination. 09/09: CT pulmonary angiogram revealed emboli bilateral lower lobes as well as views of abnormal contrast bilateral cerebral hemispheres. Patient complains still of pleuritic chest pain. Frequency increased on Lortab. CTS in for evaluation patient deemed inoperable. Palliative care consulted appreciate recommendations. 09/10: Leukocytosis resolving. Patient continues in mild respiratory distress. Denies chest pain at this time. Continue mild wheezing, patient continues to refuse nebulizer treatments. Case management consult to [facility] regarding possible transfer pending. Patient noted to have 1 g deciliter dropped in hemoglobin, repeat hemoglobin unchanged, currently 6.6. Patient will be transfused 1 unit of packed red blood cells. Close monitoring of hemoglobin and hematocrit .Concern for possible bleeding, Hemoccult and labs pending. 09/11: Late entry note. Hemoglobin 6.8 patient being transfused 1 unit of packed red blood cells. Plan to continue Argatroban until hemoglobin stabilizes and then will transition to Coumadin. O2 saturation improved O2 at 3 L nasal cannula O2 saturation 96-97%. Patient mobilizing out of bed to chair. Objective Vital Signs Date Time Temp Pulse Resp B/P (MAP) Pulse Ox O2 Delivery O2 Flow Rate FiO2 09/11/17 18:00 98.4 113 35 93/62 (72) 94 09/11/17 07:00 Nasal Cannula 3.00 09/09/17 09:49 35 Intake and Output 09/11/17 09/11/17 09/12/17 08:00 16:00 00:00 Intake Total 1200.0 ml 15 ml 2075.0 ml Output Total 700 ml 900 ml Balance 500.0 ml 15 ml 1175.0 ml Result Diagram: 09/11/17 0450 09/11/17 1350 Other Results Microbiology Date/Time Source Procedure Growth Status 09/10/17 12:28 Stool Stool Stool Occult Blood (DONNY) - Final HEMOCCULT NEGATIVE Complete 09/08/17 21:50 Sputum Expectorated Sputum Gram Stain - Final Complete 09/08/17 21:50 Sputum Expectorated Sputum Sputum Culture - Final HEAVY GROWTH NORMAL RESPIRATORY PATRICIA Complete Imaging Last Impressions Chest X-Ray 09/10/17 0600 Signed Impressions: Service Date/Time: Sunday, September 10, 2017 03:52 - CONCLUSION: There is a small to moderate size right pleural effusion with associated volume loss and/or airspace consolidation. The pleural effusion has increased from the prior examination. Adalid Galo MD Head CT 09/08/17 0000 Signed Impressions: Service Date/Time: Friday, September 08, 2017 10:22 - CONCLUSION: 1. Focal area of decreased density involving the right parietal lobe. As a new finding from the prior exam. This could relate to a small infarct. MRI of the brain with gadolinium suggested to further evaluate. 2. Small lacunar infarction involving the left centrum semiovale. Ananth Ponce Jr., MD CT Angiography 09/08/17 0000 Signed Impressions: Service Date/Time: Friday, September 08, 2017 10:28 - CONCLUSION: There extensive pulmonary emboli bilaterally. There is near complete cut off of the right lower lobe pulmonary artery. Prominent filling defects on the left as well. These findings were relayed to Dr. Dominguez immediately at the completion of the study. Scattered pulmonary infiltrates, small pleural effusion and extensive mediastinal lymphadenopathy as described above. Karsten Crowder MD Brain MRI 09/08/17 0000 Signed Impressions: Service Date/Time: Friday, September 08, 2017 18:04 - CONCLUSION: Deterioration in the appearance of the scan. At least 3 focal areas of abnormal contrast enhancement are present scattered to in both hemispheres. Given the history this most likely represents developing areas cerebritis. Exam is compromised by an uncooperative patient and motion artifact. These 2 factors make detection of other abnormalities such as cortical cephalitis and meningitis difficult to exclude. Cannot exclude hemorrhagic lesions as well. There is no mass effect evident. Geremias Mauricio MD Chest CT 09/03/17 0000 Signed Impressions: Service Date/Time: Sunday, September 03, 2017 12:41 - CONCLUSION: 1. There are at least 5 pulmonary nodules present bilaterally with the largest measuring 19 mm. None demonstrate cavitation but it is possible that these represent septic emboli. Suggest followup to assess for change. 2. Splenomegaly with subtle wedge-shaped areas of low-density in the mid spleen which could represent infarcts. 3. Mild cardiomegaly in this patient post aortic valve replacement. Low density of the cardiac blood pool suggests anemia. Adalid Galo MD Aorta w/Runoff CTA 09/02/17 0000 Signed Impressions: Service Date/Time: Saturday, September 02, 2017 12:47 - CONCLUSION: Left renal cortical infarction. 5-6 cm length total occlusion of the left superficial femoral artery in the proximal thigh. Nodular parenchymal opacities in the lung bases bilaterally See above discussion. Adalid Dallas MD Renal Ultrasound 09/01/17 0000 Signed Impressions: Service Date/Time: Friday, September 01, 2017 10:53 - CONCLUSION: 1. No evidence of hydronephrosis. 2. Thickening of the urinary bladder wall a 1.1 cm. 3. Prominent splenomegaly. Baldemar Pineda MD Breast Ultrasound 09/01/17 0000 Signed Impressions: Service Date/Time: Friday, September 01, 2017 10:48 - CONCLUSION: Negative targeted right breast ultrasound examination. Adalid Haney MD Lower Extremity Ultrasound 08/31/17 0000 Signed Impressions: Service Date/Time: Thursday, August 31, 2017 21:22 - CONCLUSION: 1. No sonographic evidence for lower extremity DVT. 2. Incidental note of bilateral inguinal adenopathy with the largest on the right measuring 3.3 cm and the largest on the left measuring 2.6 cm. This finding is nonspecific but is typically reactive in etiology. Luis Leija MD Last Impressions Head CT 09/08/17 0000 Signed Impressions: Service Date/Time: Friday, September 08, 2017 10:22 - CONCLUSION: 1. Focal area of decreased density involving the right parietal lobe. As a new finding from the prior exam. This could relate to a small infarct. MRI of the brain with gadolinium suggested to further evaluate. 2. Small lacunar infarction involving the left centrum semiovale. Ananth Ponce Jr., MD CT Angiography 09/08/17 0000 Signed Impressions: Service Date/Time: Friday, September 08, 2017 10:28 - CONCLUSION: There extensive pulmonary emboli bilaterally. There is near complete cut off of the right lower lobe pulmonary artery. Prominent filling defects on the left as well. These findings were relayed to Dr. Dominguez immediately at the completion of the study. Scattered pulmonary infiltrates, small pleural effusion and extensive mediastinal lymphadenopathy as described above. Karsten Crowder MD Brain MRI 09/08/17 0000 Signed Impressions: Service Date/Time: Friday, September 08, 2017 18:04 - CONCLUSION: Deterioration in the appearance of the scan. At least 3 focal areas of abnormal contrast enhancement are present scattered to in both hemispheres. Given the history this most likely represents developing areas cerebritis. Exam is compromised by an uncooperative patient and motion artifact. These 2 factors make detection of other abnormalities such as cortical cephalitis and meningitis difficult to exclude. Cannot exclude hemorrhagic lesions as well. There is no mass effect evident. Alex Monahan MD Chest X-Ray 09/06/17 0600 Signed Impressions: Service Date/Time: September 03:05 - CONCLUSION: 1. Stable patchy bilateral lower lung zone airspace disease. 2. No significant interval change. Luis Leija MD Chest CT 09/03/17 0000 Signed Impressions: Service Date/Time: Sunday, September 03, 2017 12:41 - CONCLUSION: 1. There are at least 5 pulmonary nodules present bilaterally with the largest measuring 19 mm. None demonstrate cavitation but it is possible that these represent septic emboli. Suggest followup to assess for change. 2. Splenomegaly with subtle wedge-shaped areas of low-density in the mid spleen which could represent infarcts. 3. Mild cardiomegaly in this patient post aortic valve replacement. Low density of the cardiac blood pool suggests anemia. Adalid Galo MD Aorta w/Runoff CTA 09/02/17 0000 Signed Impressions: Service Date/Time: Saturday, September 02, 2017 12:47 - CONCLUSION: Left renal cortical infarction. 5-6 cm length total occlusion of the left superficial femoral artery in the proximal thigh. Nodular parenchymal opacities in the lung bases bilaterally See above discussion. Adalid Dallas MD Renal Ultrasound 09/01/17 0000 Signed Impressions: Service Date/Time: Friday, September 01, 2017 10:53 - CONCLUSION: 1. No evidence of hydronephrosis. 2. Thickening of the urinary bladder wall a 1.1 cm. 3. Prominent splenomegaly. Baldemar Pineda MD Breast Ultrasound 09/01/17 0000 Signed Impressions: Service Date/Time: Friday, September 01, 2017 10:48 - CONCLUSION: Negative targeted right breast ultrasound examination. Adalid Haney MD Lower Extremity Ultrasound 08/31/17 0000 Signed Impressions: Service Date/Time: Thursday, August 31, 2017 21:22 - CONCLUSION: 1. No sonographic evidence for lower extremity DVT. 2. Incidental note of bilateral inguinal adenopathy with the largest on the right measuring 3.3 cm and the largest on the left measuring 2.6 cm. This finding is nonspecific but is typically reactive in etiology. Luis Leija MD Last Impressions Chest X-Ray 09/06/17 0600 Signed Impressions: Service Date/Time: September 03:05 - CONCLUSION: 1. Stable patchy bilateral lower lung zone airspace disease. 2. No significant interval change. Luis Leija MD Chest CT 09/03/17 0000 Signed Impressions: Service Date/Time: Sunday, September 03, 2017 12:41 - CONCLUSION: 1. There are at least 5 pulmonary nodules present bilaterally with the largest measuring 19 mm. None demonstrate cavitation but it is possible that these represent septic emboli. Suggest followup to assess for change. 2. Splenomegaly with subtle wedge-shaped areas of low-density in the mid spleen which could represent infarcts. 3. Mild cardiomegaly in this patient post aortic valve replacement. Low density of the cardiac blood pool suggests anemia. Adalid Galo MD Aorta w/Runoff CTA 09/02/17 0000 Signed Impressions: Service Date/Time: Saturday, September 02, 2017 12:47 - CONCLUSION: Left renal cortical infarction. 5-6 cm length total occlusion of the left superficial femoral artery in the proximal thigh. Nodular parenchymal opacities in the lung bases bilaterally See above discussion. Adalid Dallas MD Renal Ultrasound 09/01/17 0000 Signed Impressions: Service Date/Time: Friday, September 01, 2017 10:53 - CONCLUSION: 1. No evidence of hydronephrosis. 2. Thickening of the urinary bladder wall a 1.1 cm. 3. Prominent splenomegaly. Baldemar Pineda MD Breast Ultrasound 09/01/17 Signed Impressions: Service Date/Time: Friday, September 01, 2017 10:48 - CONCLUSION: Negative targeted right breast ultrasound examination. Adalid Haney MD Lower Extremity Ultrasound 08/31/17 Signed Impressions: Service Date/Time: Thursday, August 31, 2017 21:22 - CONCLUSION: 1. No sonographic evidence for lower extremity DVT. 2. Incidental note of bilateral inguinal adenopathy with the largest on the right measuring 3.3 cm and the largest on the left measuring 2.6 cm. This finding is nonspecific but is typically reactive in etiology. Luis Leija MD Objective Remarks GENERAL: 36-year-old female resting in bed in no acute distress SKIN: Warm and dry. Patient does appear to have puncture wounds from where she states been injecting recently in her arms, bilateral upper breast. HEAD: Atraumatic. Normocephalic. EYES: Pupils equal and round. No scleral icterus. No injection or drainage. ENT: No nasal bleeding or discharge. Mucous membranes pink and moist. NECK: Trachea midline. No JVD. CHEST: Bilateral upper breast has puncture wounds from injection. Pain to point palpation left upper thorax CARDIOVASCULAR: 2/6 pansystolic murmur at the left lower sternal border. RESPIRATORY: Few fine crackles present bilaterally. No wheezing noted GASTROINTESTINAL: Abdomen soft, tender to deep palpation. No guarding rigidity. Positive hepatosplenomegaly. Normoactive bowel sounds MUSCULOSKELETAL: 2+ pitting edema to the lower extremities. Erythematous purpuric rash of the left lower extremity anterior campbell and foot, punctate lesion plantar right great toe. Left leg extremely tender below the left knee. Dopplerable DP pulses bilaterally NEUROLOGICAL: Awake and alert. Motor grossly within normal limits. 5/5 muscle strength in the arms and legs. Normal speech. Date of Insertion: Sep 01, 2017 Line: Central Venous Catheter Side: Right Location: Internal, Jugular A/P Assessment and Plan Neuro/Psych: IVDU -hydromorphone History of THC use - Continue pain control hydrocodone/acetaminophen 10/325 1 tablet every 4 hours as needed pain 1 through 5 with hydromorphone 2 mg IV every 4 hours as needed pain 6-10 (patient has severe pain from ischemic leg) - Acetaminophen 650 mg p.o. 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 - Now with strep viridans in blood cultures 08/31 - Broad-spectrum antibiotic with ampicillin and gentamicin. 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 Holloway following - Anticoagulation with argatroban gtt at 0.75 mcg/kg/min - Infectious disease Dr. Sloan - Extensive counselling given about IP Rehab -CTS evaluation Dr. Bains-no surgical intervention planned - Case management consulted with [facility]-denied for transfer no surgical intervention planned Microbiology 09/04 -blood cultures 2 -no growth 08/31 -urine culture -no growth 08/31 -blood cultures 2 -strep viridians Resp: Acute respiratory insufficiency 5 pulmonary nodules likely septic emboli Pleural effusions -Nasal cannula to keep oxygen saturation above 92% currently on 4 L -Incentives spirometry while awake -As needed albuterol aerosols every 2 hours[address] Dyspnea - CT thorax revealed 5 bilateral pulmonary lesions/nodules largest which is 19 mm. No cavitation noted but likely septic emboli. CT pulmonary angiogram 09/08-pulmonary emboli bilateral lower lobes GI: Hepatitis C Splenic infarction Hypoalbuminemia - Heart healthy diet -Famotidine for GI prophylaxis -Docusate sodium/senna 1 tablet twice daily for bowel regimen Renal/: Acute on chronic kidney disease Left renal cortical infarction - Acute renal failure secondary to ATN and dehydration - CT imaging revealed left renal cortical infarction - Renal ultrasound-thickening of urinary bladder - Creatinine 0.8-will give 40 mg Lasix IV 1 dose Endo: Sliding scale insulin if indicated to maintain euglycemia Heme: Microcytic anemia Leukocytosis - Monitor CBC CMP and coags -Hemoglobin 6.6. Transfuse1 unit of packed red blood cells -Obtain Hemoccult -Obtain LDH, haptoglobin, fibrinogen, PT and INR levels -Heme-Onc following -Monitor H&H every 12 hours, consider CT of the abdomen and pelvis if continued decrease in levels FEN: Hyponatremia Replace electrolytes as clinically indicated. MSK: History of right breast abscess Elevated BMI - Ultrasound of the left lower extremity negative for DVT - Right breast ultrasound negative for abscess -Weight loss encouraged DVT GI prophylaxis - argatroban gtt - famotidine Level 2 [id number] transfer to [facility] in a.m., planned transfer to [facility] floor when bed available CT pulmonary angiogram revealed bilateral pulmonary emboli nature unclear. Right lower lobe occlusion. CT brain revealed right parietal lacunar infarct possibly with infarct left centrum semiovale possibly septic emboli. Versus thrombus. MRI brain ordered Stat echocardiogram ordered. This revealed Aortic prosthesis with prolapse and possible vegetation. The estimated pulmonary arterial pressure is 65.7 mmHg. Tricuspid valve prosthesis Mobile vegetation seen on the tricuspid valve. 2x4 cm. Discussed with infectious disease. Recommended vancomycin and possible RACHEL early next week Patient is currently on therapeutic argatroban. 09/10-Case management consulted, possible transfer to [facility] were patient received prosthetic aortic valve.I spoke with Dr. Hill CT Surgeon , will not accept pt for transfer, patient still active IVDU, Per report attempted transferred to [facility] - patient was not accepted .D /W patient,and LOGISTICS CLERK at bedside (Jairo) Physician Surekha Frazier MD Sep 11, 2017 18:57
[2017-09-11 20:51] LABS: HEMATOCRIT 24.1 % (35.0-46.0); HEMOGLOBIN 7.7 GM/DL (11.6-15.3)
[2017-09-11] MEDS: ARGATROBAN INJ 250 MG in SODIUM CHLOR 0.9% 250 ML INJ 250 ML IV PRN (21:31)
[2017-09-11] MEDS: SODIUM CHLORIDE 0.9% FLUSH 10 ML FLUSH IV FLUSH PRN (22:08)
[2017-09-11] MEDS: TEMAZEPAM 15 MG CAP PO PRN (22:08)
[2017-09-12] VITALS (14 sets, daily range): BP systolic 97–112; BP diastolic 60–76; PULSE 100–123; RESP 20–31; TEMP 98.1–98.9; O2SAT 88–99
[2017-09-12] MEDS: HYDROmorphone HCL PF 2 MG/ML VIAL IV PUSH PRN ×6 (02:17→23:04)
[2017-09-12] MEDS: AMPICILLIN INJ 2,000 MG in SODIUM CHLORIDE 0.9% INJ 100 ML IV SCH ×4 (02:17→21:25)
[2017-09-12] MEDS: VANCOMYCIN INJ 1,750 MG in SODIUM CHLORID 0.9% 500 ML INJ 500 ML IV SCH ×2 (02:22→13:53)
[2017-09-12] MEDS: CHLORHEXIDINE GLUCONATE 2 % 1 PACK (2 CLOTHS) TOP SCH (04:00)
[2017-09-12] MEDS: ACETAMINOPHEN/HYDROcodone 325 MG/10 MG TAB PO PRN ×2 (04:35→21:24)
[2017-09-12] MEDS: GENTAMICIN INJ 100 MG in SODIUM CHLORIDE 0.9% INJ 100 ML IV SCH ×3 (04:35→21:29)
[2017-09-12 05:36] LABS: HEMATOCRIT 23.8 % (35.0-46.0); HEMOGLOBIN 7.8 GM/DL (11.6-15.3)
[2017-09-12] MEDS: DOCUSATE SODIUM 50 MG/SENNA 8.6 MG TAB PO SCH ×2 (09:00→21:24)
[2017-09-12] MEDS: FAMOTIDINE 20 MG TAB PO SCH ×2 (09:42→21:28)
[2017-09-12] MEDS: SODIUM CHLORIDE 0.9% FLUSH 10 ML FLUSH IV FLUSH SCH ×2 (09:43→21:26)
[2017-09-12 10:10] LABS: BASOPHIL # 0.1 TH/MM3 (0-0.2); BASOPHIL % 0.9 % (0.0-2.0); EOSINOPHIL # 0.1 TH/MM3 (0-0.4); EOSINOPHIL % 0.8 % (0.0-4.0); HEMATOCRIT 24.1 % (35.0-46.0); HEMOGLOBIN 7.9 GM/DL (11.6-15.3); LYMPH % 7.9 % (9.0-44.0); LYMPHOCYTE # 1.1 TH/MM3 (1.0-4.8); MEAN CELL VOLUME 72.7 FL (80.0-100.0); MEAN CORPUSCULAR HEMOGLOBIN 23.9 PG (27.0-34.0); MEAN CORPUSCULAR HGB CONC 32.9 % (32.0-36.0); MEAN PLATELET VOLUME 7.9 FL (7.0-11.0); MONO % 6.9 % (0.0-8.0); NEUT % 83.5 % (16.0-70.0); PLATELET COUNT 331 TH/MM3 (150-450); RED BLOOD COUNT 3.31 MIL/MM3 (4.00-5.30); RED CELL DISTRIBUTION WIDTH 20.4 % (11.6-17.2); WHITE BLOOD COUNT 14.4 TH/MM3 (4.0-11.0)
[2017-09-12 10:37] LABS: ALBUMIN 2.2 GM/DL (3.4-5.0); BICARBONATE 29.7 MEQ/L (21.0-32.0); CALCIUM 7.9 MG/DL (8.5-10.1); CREATININE 0.94 MG/DL (0.50-1.00); MAGNESIUM 1.8 MG/DL (1.5-2.5); PHOSPHORUS 3.9 MG/DL (2.5-4.9)
[2017-09-12] MEDS ORDERED: POTASSIUM CHLOR 10 MEQ PREMIX 100 ML IV ONE (11:00)
[2017-09-12] MEDS ORDERED: POTASSIUM CHLORIDE 10 MEQ CONTROLLED RELEASE TAB PO ONE (11:00)
--- NOTE | 2017-09-12 12:48 | HHI.IDPN ---
Note Infectious Disease Note Patient complains of headache and shortness of breath. Has cough without sputum production. Afebrile. Notes mild pain in the left leg. 36-year-old white female who has a history of endocarditis and has been admitted several times for the same. The patient developed shortness of breath, fever and chills, and presented to the emergency department. The patient is noted to be actively using IV drugs. She has history of significant CHF from prior valvular heart disease related to endocarditis. She states that she started feeling short of breath about a week ago and the shortness of breath worsened. After she completed IV antibiotics in April she was put on doxycycline prophylaxis. She reports that she has not been taking the doxycycline. PAST MEDICAL HISTORY: Hepatitis C. IV drug use. prosthetic aortic valve replacement in 2010 and then redo aortic valve replacement in December 2015 MEDICATIONS: 1. Gentamicin. 2. Ampicillin. 3. Vancomycin. Current Medications Medications (Trade) Dose Ordered Sig/Jessica Route PRN Reason Start Time Stop Time Status Last Admin Dose Admin Sodium Chloride (NS Flush) 2 ml UNSCH PRN IV FLUSH FLUSH AFTER USING IV ACCESS 08/31/17 22:00 09/11/17 22:08 Sodium Chloride (NS Flush) 2 ml BID IV FLUSH 09/01/17 09:00 09/12/17 09:43 Acetaminophen (Tylenol) 650 mg Q6H PRN PO fever 08/31/17 22:00 09/10/17 16:02 Ondansetron HCl (Zofran Inj) 4 mg Q6H PRN IV PUSH NAUSEA OR VOMITING 08/31/17 22:00 Temazepam (Restoril) 15 mg HS PRN PO INSOMNIA 08/31/17 22:00 09/11/17 22:08 Miscellaneous Information 1 Q361D XX 08/31/17 22:00 Chlorhexidine Gluconate (Chlorhexidine 2% Cloth) Taper DAILY@04 TOP 09/01/17 04:00 08/28/18 03:59 09/11/17 03:54 Chlorhexidine Gluconate (Chlorhexidine 2% Cloth) 3 pack UNSCH PRN TOP HYGIENIC CARE 08/31/17 22:00 Senna/Docusate Sodium (Armida-Colace) 1 tab BID PO 09/01/17 09:00 09/09/17 20:25 Magnesium Hydroxide (Milk Of Magnesia Liq) 30 ml Q12H PRN PO Mild constipation 08/31/17 22:00 Sennosides (Senokot) 17.2 mg Q12H PRN PO Moderate constipation 08/31/17 22:00 Bisacodyl (Dulcolax Supp) 10 mg DAILY PRN RECTAL SEVERE CONSITIPATION 08/31/17 22:00 Lactulose (Lactulose Liq) 30 ml DAILY PRN PO SEVERE CONSITIPATION 08/31/17 22:00 Ampicillin Sodium 2000 mg/Sodium Chloride 100 ml @ 400 mls/hr Q6H IV 09/01/17 14:00 09/12/17 09:43 Hydromorphone HCl (Dilaudid Pf Inj) 2 mg Q4H PRN IV PUSH PAIN SCALE 6 TO 10 09/02/17 15:00 09/12/17 10:13 Loperamide HCl (Imodium) 2 mg Q4H PRN PO Diarrhea 09/03/17 16:15 09/05/17 14:32 Gentamicin Sulfate 100 mg/ Sodium Chloride 102.5 ml @ 100 mls/hr Q8H IV 09/03/17 21:00 09/12/17 04:35 Albuterol Sulfate (Albuterol Neb) 2.5 mg Q2HR NEB PRN NEB dyspnea 09/04/17 11:30 09/11/17 10:51 Famotidine (Pepcid) 20 mg BID PO 09/04/17 21:00 09/12/17 09:42 Argatroban 250 mg/ Sodium Chloride 252.5 ml @ 3.11 mls/hr TITRATE PRN IV aPTT < 50 09/06/17 19:15 09/11/17 21:31 Pharmacy Profile Note 0 ml @ 0 mls/hr UNSCH OTHER 09/08/17 16:45 Acetaminophen/ Hydrocodone Bitart ([place] 10-325 Mg) 1 tab Q4H PRN PO pain 1-5 09/09/17 15:00 09/12/17 04:35 Vancomycin HCl 1750 mg/Sodium Chloride 517.5 ml @ 260 mls/hr Q12H IV 09/10/17 02:00 09/12/17 02:22 Miscellaneous Information SPECIFIC LAB TO BE MELISSA... ONCE ONCE .XX 09/13/17 01:45 09/13/17 01:46 SOCIAL HISTORY: Positive occasional alcohol. No tobacco. IV drug use in the form of Dilaudid, oxycodone. The patient also uses marijuana. OBJECTIVE: Vital Signs Date Time Temp Pulse Resp B/P (MAP) Pulse Ox O2 Delivery O2 Flow Rate FiO2 09/12/17 12:00 98.5 100 28 107/70 (82) 94 09/12/17 12:00 100 09/12/17 12:00 105 09/12/17 12:00 98.5 105 28 102/76 (85) 94 09/12/17 10:43 20 09/12/17 10:00 105 09/12/17 08:00 98.5 105 28 102/76 (85) 94 09/12/17 08:00 109 09/12/17 07:00 98 Nasal Cannula 3.00 09/12/17 06:00 123 09/12/17 04:00 108 09/12/17 04:00 98.3 107 28 105/69 (81) 88 09/12/17 02:00 109 09/12/17 00:00 98.1 108 31 97/60 (72) 94 09/12/17 00:00 108 09/11/17 22:00 109 09/11/17 20:00 98.2 117 31 101/73 (82) 94 09/11/17 20:00 117 09/11/17 19:00 96 Nasal Cannula 3.00 09/11/17 18:00 98.4 113 35 93/62 (72) 94 09/11/17 17:30 114 33 103/65 (78) 79 09/11/17 17:00 109 26 103/74 (84) 97 09/11/17 16:30 103 46 99/67 (78) 96 18 16:00 104 28 100/74 (83) 100 09/11/17 15:46 104 30 102/78 (86) 94 09/11/17 15:30 103 32 102/73 (83) 93 18 15:15 100 24 102/74 (83) 97 18 15:00 100 25 101/79 (86) 96 09/11/17 15:00 98.4 100 21 101/87 96 09/11/17 14:43 98.8 100 21 103/74 95 3/6/18 14:30 100 24 103/74 (84) 95 09/11/17 14:00 101 27 100/68 (79) 97 09/11/17 13:30 101 25 106/67 (80) 97 09/11/17 13:00 105 25 115/76 (89) 96 Laboratory Tests Test 09/11/17 04:50 09/11/17 19:15 09/12/17 04:45 09/12/17 09:55 White Blood Count 16.3 TH/MM3 14.4 TH/MM3 Red Blood Count 2.94 MIL/MM3 3.31 MIL/MM3 Hemoglobin 6.8 GM/DL 7.7 GM/DL 7.8 GM/DL 7.9 GM/DL Hematocrit 21.1 % 24.1 % 23.8 % 24.1 % Mean Corpuscular Volume 71.6 FL 72.7 FL Mean Corpuscular Hemoglobin 23.0 PG 23.9 PG Mean Corpuscular Hemoglobin Concent 32.2 % 32.9 % Red Cell Distribution Width 19.2 % 20.4 % Platelet Count 342 TH/MM3 331 TH/MM3 Mean Platelet Volume 8.3 FL 7.9 FL Reticulocyte Count 3.6 % Absolute Reticulocyte Count 104.4 MIL/L Neutrophils (%) (Auto) 83.5 % Lymphocytes (%) (Auto) 7.9 % Monocytes (%) (Auto) 6.9 % Eosinophils (%) (Auto) 0.8 % Basophils (%) (Auto) 0.9 % Neutrophils # (Auto) 12.0 TH/MM3 Lymphocytes # (Auto) 1.1 TH/MM3 Monocytes # (Auto) 1.0 TH/MM3 Eosinophils # (Auto) 0.1 TH/MM3 Basophils # (Auto) 0.1 TH/MM3 CBC Comment DIFF FINAL Differential Comment Laboratory Tests Test 09/10/17 15:25 09/11/17 13:50 09/12/17 09:55 Iron Level 22 MCG/DL Total Iron Binding Capacity 288 MCG/DL Percent Iron Saturation 7.6 % Vitamin B12 Level 842 PG/ML Folate 12.4 NG/ML Blood Urea Nitrogen 10 MG/DL 9 MG/DL Creatinine 0.84 MG/DL 0.94 MG/DL Random Glucose 126 MG/DL 142 MG/DL Calcium Level 8.3 MG/DL 7.9 MG/DL Sodium Level 133 MEQ/L 133 MEQ/L Potassium Level 3.0 MEQ/L 2.8 MEQ/L Chloride Level 95 MEQ/L 96 MEQ/L Carbon Dioxide Level 29.4 MEQ/L 29.7 MEQ/L Anion Gap 9 MEQ/L 7 MEQ/L Estimat Glomerular Filtration Rate 77 ML/MIN 68 ML/MIN Albumin 2.2 GM/DL Phosphorus Level 3.9 MG/DL Magnesium Level 1.8 MG/DL Microbiology Date/Time Source Procedure Growth Status 09/10/17 12:28 Stool Stool Stool Occult Blood (DONNY) - Final HEMOCCULT NEGATIVE Complete IMAGING: Chest X-Ray 09/10/17 0600 Signed Impressions: Service Date/Time: Sunday, September 10, 2017 03:52 - CONCLUSION: There is a small to moderate size right pleural effusion with associated volume loss and/or airspace consolidation. The pleural effusion has increased from the prior examination. Adalid Galo MD Head CT 09/08/17 0000 Signed Impressions: Service Date/Time: Friday, September 08, 2017 10:22 - CONCLUSION: 1. Focal area of decreased density involving the right parietal lobe. As a new finding from the prior exam. This could relate to a small infarct. MRI of the brain with gadolinium suggested to further evaluate. 2. Small lacunar infarction involving the left centrum semiovale. Ananth Ponce Jr., MD CT Angiography 09/08/17 0000 Signed Impressions: Service Date/Time: Friday, September 08, 2017 10:28 - CONCLUSION: There extensive pulmonary emboli bilaterally. There is near complete cut off of the right lower lobe pulmonary artery. Prominent filling defects on the left as well. These findings were relayed to Dr. Dominguez immediately at the completion of the study. Scattered pulmonary infiltrates, small pleural effusion and extensive mediastinal lymphadenopathy as described above. Karsten Crowder MD Brain MRI 09/08/17 0000 Signed Impressions: Service Date/Time: Friday, September 08, 2017 18:04 - CONCLUSION: Deterioration in the appearance of the scan. At least 3 focal areas of abnormal contrast enhancement are present scattered to in both hemispheres. Given the history this most likely represents developing areas cerebritis. Exam is compromised by an uncooperative patient and motion artifact. These 2 factors make detection of other abnormalities such as cortical cephalitis and meningitis difficult to exclude. Cannot exclude hemorrhagic lesions as well. There is no mass effect evident. Geremias Mauricio MD Renal Ultrasound 09/01/17 0000 Signed Impressions: Service Date/Time: Friday, September 01, 2017 10:53 - CONCLUSION: 1. No evidence of hydronephrosis. 2. Thickening of the urinary bladder wall a 1.1 cm. 3. Prominent splenomegaly. Baldemar Pineda MD Chest X-Ray 09/01/17 0000 Signed Impressions: Service Date/Time: Friday, September 01, 2017 09:36 - CONCLUSION: Right internal jugular central line in place with the tip overlying the SVC. A pneumothorax is not seen. Adalid Haney MD Breast Ultrasound 09/01/17 0000 Signed Impressions: Service Date/Time: Friday, September 01, 2017 10:48 - CONCLUSION: Negative targeted right breast ultrasound examination. Adalid Haney MD Lower Extremity Ultrasound 08/31/17 0000 Signed Impressions: Service Date/Time: Thursday, August 31, 2017 21:22 - CONCLUSION: 1. No sonographic evidence for lower extremity DVT. 2. Incidental note of bilateral inguinal adenopathy with the largest on the right measuring 3.3 cm and the largest on the left measuring 2.6 cm. This finding is nonspecific but is typically reactive in etiology. Luis Leija MD PHYSICAL EXAMINATION GENERAL: No acute distress. HEENT: No icterus. Oropharynx moist mucosa, no lesions. Neck: Supple without adenopathy. Lungs: Coarse bilateral rhonchi. Heart: 5/6 blowing systolic murmur at the upper right sternal border. Abdomen: Bowel sounds present, soft, obese, nontender. Extremities: Diffuse 1+ edema of the lower extremities. Lesions at Left tibia distally and left foot and great toe are more red and not purpuric as before. Toes 3 and 5 are no longer cyanotic. Pupils are rate lesion at the tuft of the left fifth toe. Left leg warm. No calf tenderness. No nail bed hemorrhages. SKIN: no diffuse rash. Neuro: No gross focal findings. Psychiatric: calm and cooperative. IMPRESSION 1. Sepsis. Strep Viridans. 2. Tricuspid valve endocarditis. Large vegetation. Tricuspid regurgitation. Patient evaluated by cardiovascular surgery and felt not to be a surgical candidate. 3. Bacteremia. Strep viridans. Repeat blood cultures are pending. Previous repeat blood cultures were negative. 4. History of prosthetic aortic valve and so likely recurrent prosthetic valve endocarditis. 5. Cerebritis on MRI. Also has parietal infarct noted on CT scan of the brain. 6. Left renal cortical and pulmonary and lower extremity septic emboli. 7. Leukocytosis secondary to sepsis from showering of emboli from endocarditis. 8. Acute renal failure. Kidney function improved. Patient remains critically ill. RECOMMENDATIONS 1. Continue Ampicillin intravenous. 2. Continue Gentamicin. now that the kidney function is improved but follow the renal function. 3. Continue vancomycin. Pharmacy managing. 4. Monitor clinical response. 5. Continue to monitor the left leg lesions. 6. Consider lumbar puncture if the mentation deteriorates. Edmar Sloan MD Sep 12, 2017 12:48
--- NOTE | 2017-09-12 13:07 | PD.ONC.PN ---
Subjective Subjective Remarks Afebrile overnight. Patient resting in bed in nad. Tolerating Argatroban drip. Received pRBC transfusion yesterday. Remains dyspneic. otherwise without complaints. Objective Data Date Time Temp Pulse Resp B/P (MAP) Pulse Ox O2 Delivery O2 Flow Rate FiO2 09/12/17 12:00 98.5 100 28 107/70 (82) 94 09/12/17 12:00 100 09/12/17 12:00 105 09/12/17 12:00 98.5 105 28 102/76 (85) 94 09/12/17 10:43 20 09/12/17 10:00 105 09/12/17 08:00 98.5 105 28 102/76 (85) 94 09/12/17 08:00 109 09/12/17 07:00 98 Nasal Cannula 3.00 09/12/17 06:00 123 09/12/17 04:00 108 09/12/17 04:00 98.3 107 28 105/69 (81) 88 09/12/17 02:00 109 09/12/17 00:00 98.1 108 31 97/60 (72) 94 09/12/17 00:00 108 09/11/17 22:00 109 09/11/17 20:00 98.2 117 31 101/73 (82) 94 09/11/17 20:00 117 09/11/17 19:00 96 Nasal Cannula 3.00 09/11/17 18:00 98.4 113 35 93/62 (72) 94 09/11/17 17:30 114 33 103/65 (78) 79 09/11/17 17:00 109 26 103/74 (84) 97 09/11/17 16:30 103 46 99/67 (78) 96 09/11/17 16:00 104 28 100/74 (83) 100 09/11/17 15:46 104 30 102/78 (86) 94 09/11/17 15:30 103 32 102/73 (83) 93 09/11/17 15:15 100 24 102/74 (83) 97 18 15:00 100 25 101/79 (86) 96 09/11/17 15:00 98.4 100 21 101/87 96 09/11/17 14:43 98.8 100 21 103/74 95 09/11/17 14:30 100 24 103/74 (84) 95 09/11/17 14:00 101 27 100/68 (79) 97 09/11/17 13:30 101 25 106/67 (80) 97 09/12/17 09/12/17 09/12/17 07:00 15:00 23:00 Intake Total 1200 ml Output Total 1200 ml Balance 0 ml Result Diagram: 09/12/17 0955 09/12/17 0955 Laboratory Results Laboratory Tests Test 09/11/17 13:50 09/11/17 19:15 09/12/17 04:45 09/12/17 09:55 Blood Urea Nitrogen 10 MG/DL 9 MG/DL Creatinine 0.84 MG/DL 0.94 MG/DL Random Glucose 126 MG/DL 142 MG/DL Calcium Level 8.3 MG/DL 7.9 MG/DL Sodium Level 133 MEQ/L 133 MEQ/L Potassium Level 3.0 MEQ/L 2.8 MEQ/L Chloride Level 95 MEQ/L 96 MEQ/L Carbon Dioxide Level 29.4 MEQ/L 29.7 MEQ/L Anion Gap 9 MEQ/L 7 MEQ/L Estimat Glomerular Filtration Rate 77 ML/MIN 68 ML/MIN Vancomycin Level Trough 19.2 MCG/ML Hemoglobin 7.7 GM/DL 7.8 GM/DL 7.9 GM/DL Hematocrit 24.1 % 23.8 % 24.1 % Activated Partial Thromboplast Time 51.0 SEC White Blood Count 14.4 TH/MM3 Red Blood Count 3.31 MIL/MM3 Mean Corpuscular Volume 72.7 FL Mean Corpuscular Hemoglobin 23.9 PG Mean Corpuscular Hemoglobin Concent 32.9 % Red Cell Distribution Width 20.4 % Platelet Count 331 TH/MM3 Mean Platelet Volume 7.9 FL Neutrophils (%) (Auto) 83.5 % Lymphocytes (%) (Auto) 7.9 % Monocytes (%) (Auto) 6.9 % Eosinophils (%) (Auto) 0.8 % Basophils (%) (Auto) 0.9 % Neutrophils # (Auto) 12.0 TH/MM3 Lymphocytes # (Auto) 1.1 TH/MM3 Monocytes # (Auto) 1.0 TH/MM3 Eosinophils # (Auto) 0.1 TH/MM3 Basophils # (Auto) 0.1 TH/MM3 CBC Comment DIFF FINAL Differential Comment Albumin 2.2 GM/DL Phosphorus Level 3.9 MG/DL Magnesium Level 1.8 MG/DL Culture Results Microbiology Date/Time Source Procedure Growth Status 09/10/17 12:28 Stool Stool Stool Occult Blood (DONNY) - Final HEMOCCULT NEGATIVE Complete Administered Medications Medications (Trade) Dose Ordered Sig/Jessica Route PRN Reason Start Time Stop Time Status Last Admin Dose Admin Sodium Chloride (NS Flush) 2 ml UNSCH PRN IV FLUSH FLUSH AFTER USING IV ACCESS 08/31/17 22:00 09/11/17 22:08 Sodium Chloride (NS Flush) 2 ml BID IV FLUSH 09/01/17 09:00 09/12/17 09:43 Acetaminophen (Tylenol) 650 mg Q6H PRN PO fever 08/31/17 22:00 09/10/17 16:02 Temazepam (Restoril) 15 mg HS PRN PO INSOMNIA 08/31/17 22:00 09/11/17 22:08 Chlorhexidine Gluconate (Chlorhexidine 2% Cloth) Taper DAILY@04 TOP 09/01/17 04:00 08/28/18 03:59 09/11/17 03:54 Senna/Docusate Sodium (Armida-Colace) 1 tab BID PO 09/01/17 09:00 09/09/17 20:25 Ampicillin Sodium 2000 mg/Sodium Chloride 100 ml @ 400 mls/hr Q6H IV 09/01/17 14:00 09/12/17 09:43 Hydromorphone HCl (Dilaudid Pf Inj) 2 mg Q4H PRN IV PUSH PAIN SCALE 6 TO 10 09/02/17 15:00 09/12/17 10:13 Loperamide HCl (Imodium) 2 mg Q4H PRN PO Diarrhea 09/03/17 16:15 09/05/17 14:32 Gentamicin Sulfate 100 mg/ Sodium Chloride 102.5 ml @ 100 mls/hr Q8H IV 09/03/17 21:00 09/12/17 12:43 Albuterol Sulfate (Albuterol Neb) 2.5 mg Q2HR NEB PRN NEB dyspnea 09/04/17 11:30 09/11/17 10:51 Famotidine (Pepcid) 20 mg BID PO 09/04/17 21:00 09/12/17 09:42 Argatroban 250 mg/ Sodium Chloride 252.5 ml @ 3.11 mls/hr TITRATE PRN IV aPTT < 50 09/06/17 19:15 09/11/17 21:31 Acetaminophen/ Hydrocodone Bitart ([place] 10-325 Mg) 1 tab Q4H PRN PO pain 1-5 09/09/17 15:00 09/12/17 04:35 Vancomycin HCl 1750 mg/Sodium Chloride 517.5 ml @ 260 mls/hr Q12H IV 09/10/17 02:00 09/12/17 02:22 Objective Remarks GENERAL: chronically ill female, lying in bed, resting in nad. On 3L O2 via NC SKIN: Warm and dry. HEAD: Normocephalic. EYES: No injection or drainage. NECK: Supple, trachea midline. CARDIOVASCULAR: +S1, S2, tachy RESPIRATORY: scattered rhonchi. on 3L O2 via NC GASTROINTESTINAL: Abdomen soft, non-tender, nondistended. EXTREMITIES: No cyanosis. bilateral lower extremities with edema, left greater than right. bilateral dorsalis pedis pulses palpable. NEUROLOGICAL: awake, alert. normal speech. Assessment/Plan Problem List: (1) arterial blood clot Plan: --on Argatroban (direct thrombin inhibitor) -- no significant family history of thrombotic events to suggest hereditary antithrombin deficiency. suspect the antithrombin deficiency comes from her impaired production from her liver disease. --has chronic active hepatitis C. ++increased consumption from disseminated intravascular coagulation and acute illness, bacterial endocarditis. --Protein losses are also considered. She had mild proteinuria when she first was admitted. --Thrombin inactivates antithrombin. This would abrogate the effect of unfractionated heparin and low molecular weight heparin. (2) Acute septic pulmonary embolism ICD Codes: I26.90 - Septic pulmonary embolism without acute cor pulmonale Plan: -- The echocardiogram on 09/08 showed an estimated EF of 50-55%. There was severe tricuspid regurgitation with prosthesis in place. 2 x 4 cm mobile vegetation was seen on the valve. The right atrium and right ventricle were normal in size and function (3) Microcytic anemia ICD Codes: D50.9 - Iron deficiency anemia, unspecified Plan: --likely d/t inflammation/infection. no evidence of bleeding or hemolysis. --B12/folate WNL --low iron and percent saturation. normal TIBC, elevated ferritin-->more consistent with anemia of chronic disease. --stool Hemoccult negative. --no evidence of hemolysis Assessment 36y/o female admitted with recurrent endocarditis. hematology consulted for anticoagulation assistance. h/o Recurrent bacterial endocarditis, bacteremia, history of prosthetic aortic valve and subsequent redo, chronic active hepatitis C, intravenous drug use, microcytic anemia, consistent with iron deficiency, left lower extremity arterial event, bacterial endocarditis with viridans streptococcus. HPI (brought forward for continuity of care): history of IV drug abuse and recurrent endocarditis. had a relapse of her activity. has history of pulmonary embolism and infected valves. +significant congestive heart failure and presented to the emergency room on 08/31/2017, with sepsis. is followed by Infectious Disease for her endocarditis. previously received antibiotic therapy for enterococcus faecalis and staph aureus. There is questionable compliance. Her current blood culture from 08/31/2017, shows viridans streptococcus. Two out of two bottles were positive. She is on ampicillin and gentamicin. course is complicated by cold left lower extremity, evaluated by Vascular Surgery. 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 There is satisfactory calf runoff present. For this reason , conservative management with anticoagulation is continued. was placed on unfractionated heparin. Her heparin dose has been titrated from 1000 units/ hour to 2500 units/hour with a PTT remaining subtherapeutic. Her last PTT is 32 seconds from 09/06/2017, at 2 p.m. For this reason, Hematology/Oncology is consulted. Plan 1. continue Argatroban. 2. start coumadin. 3. continue Argatroban and coumadin until INR is greater than 4. Attending Statement The exam, history, and the medical decision-making described in the above note were completed with the assistance of the mid-level provider. I reviewed and agree with the findings presented. I attest that I had a [id number] encounter with the patient on the same day, and personally performed and documented my assessment and findings in the medical record. c/o both legs swelling. R leg looks improved. Tolerating Coumadin. Goal INR 2-3. Still critically ill, tachypnic and tachycardic. ATIII low, acquired deficiency. Jennifer Bailey Sep 12, 2017 13:07 Myra Silva MD Sep 12, 2017 17:59
[2017-09-12] MEDS: RESP: ALBUTEROL 2.5 MG/3 ML NEB (PRN) NEB ×2 (13:58→21:05)
[2017-09-12] MEDS: WARFARIN SOD 2 MG TAB PO SCH (14:44)
--- NOTE | 2017-09-12 17:14 | HHI.PR ---
Subjective Remarks 36-year-old female that presents to the ED for evaluation of shortness of breath and swelling. 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 Patient initially did not mention to anybody that she was doing drugs but she did tell me that she injected herself about 4 days ago. She uses Dilaudid. She states that she's been having fevers. Patient is somewhat somnolent and hard to assess she doesn't really provide much information. Family members at the bedside and he provides more information about the heart. Per patient she'll he takes 2 medications. Patient asked if she is taking any antibiotics and she said yes but when I ask her what kind is she is taking currently she states that she has not been on antibiotics for some time. Patient apparently does follow with a local buffer machine but she cannot tell me the name of it. She states that she's been having swelling to her legs for the past month. She denies any recent travel or injury. No other medical issues at this time. No allergies to medication. 09/01: remains critical on Dopamine 10 mcg/ min. Appears ill. Limited bedside echo did not show any large vegetation, but exam was limited, tricuspid and aortic valve not well visualized. Also states that had right breast abscess 2 months ago, drained by herself. Now may have abscess vs scar tissue. Injects upper arm and bilateral breasts. US of right breast ordered 09/02: Remains on 3 mcg/min of Levophed. Complaints of severe left lower extremity pain. Erythematous purpuric purple discoloration of the left lower anterior segment left dorsum of the foot with cyanotic nailbeds. Weak DP pulses+ . 2D Echo failed to reveal definite vegetation. Will consider RACHEL 09/03: Continues to be on Levophed 3 mcg/min, remains critical. We are left lower extremity pain but slightly better. Currently on heparin not therapeutic yet. CTA with runoff showed Left renal cortical infarction. 5-6 cm length total occlusion of the left superficial femoral artery in the proximal thigh but good distal opacification. Dr. Palacios recommended IV heparin no surgical intervention at this time. Patient is still at high risk for further embolic episodes. Blood cultures growing strep viridans. Also patient complains about epigastric and left-sided abdominal pain and left-sided chest pain which is more pleuritic. Pain is severe on deep inspiration 09/04: Resting in bed in no acute distress. Dopplerable lower extremity pulses noted. Remains on heparin drip. Vascular surgery continues to follow. 09/05: Resting in bed in mild respiratory distress. Continues to cough. Nonproductive. Left lower extremity leg improved. Reviewed vascular surgeries note. Likely will require long-term medical regulation post hospitalization 09/06: Improve respiratory status today. Pain in left lower extremity much improved. Tolerating diet. 09/07: Currently on nasal cannula. Switch to Argatroban overnight by hematology. Okayed with vascular surgery. Pain in left lower extremity slowly improving day by day. Subjective 09/08: Resting in bed in some mild respiratory distress. Complaining of pleuritic chest pain specifically in the right flank region. Worse with deep inspiration. Reproducible with palpation. CT brain/CT pulmonary angiogram ordered. No neurological deficits noted on examination. 09/09: CT pulmonary angiogram revealed emboli bilateral lower lobes as well as views of abnormal contrast bilateral cerebral hemispheres. Patient complains still of pleuritic chest pain. Frequency increased on Lortab. CTS in for evaluation patient deemed inoperable. Palliative care consulted appreciate recommendations. 09/10: Leukocytosis resolving. Patient continues in mild respiratory distress. Denies chest pain at this time. Continue mild wheezing, patient continues to refuse nebulizer treatments. Case management consult to [facility] regarding possible transfer pending. Patient noted to have 1 g deciliter dropped in hemoglobin, repeat hemoglobin unchanged, currently 6.6. Patient will be transfused 1 unit of packed red blood cells. Close monitoring of hemoglobin and hematocrit .Concern for possible bleeding, Hemoccult and labs pending. 09/11: Late entry note. Hemoglobin 6.8 patient being transfused 1 unit of packed red blood cells. Plan to continue Argatroban until hemoglobin stabilizes and then will transition to Coumadin. O2 saturation improved O2 at 3 L nasal cannula O2 saturation 96-97%. Patient mobilizing out of bed to chair. 09/12. Patient seen this morning around 9 AM. He says she is feeling all right. Denies any chest pain. Denies any bleeding. Denies any nausea or vomiting. She does note slight increase in bilateral lower extremity edema, however she has been sitting up on edge of bed this morning. Objective Vital Signs Date Time Temp Pulse Resp B/P (MAP) Pulse Ox O2 Delivery O2 Flow Rate FiO2 09/12/17 16:00 98.5 100 28 107/70 (82) 94 09/12/17 16:00 104 09/12/17 16:00 98.9 104 25 98/68 (78) 96 09/12/17 14:01 94 Nasal Cannula 2.00 09/12/17 14:00 106 09/12/17 12:00 98.5 100 28 107/70 (82) 94 09/12/17 12:00 100 09/12/17 12:00 105 09/12/17 12:00 98.5 105 28 102/76 (85) 94 09/12/17 10:43 20 09/12/17 10:00 105 09/12/17 08:00 98.5 105 28 102/76 (85) 94 09/12/17 08:00 109 09/12/17 07:00 98 Nasal Cannula 3.00 09/12/17 06:00 123 09/12/17 04:00 108 09/12/17 04:00 98.3 107 28 105/69 (81) 88 09/12/17 02:00 109 09/12/17 00:00 98.1 108 31 97/60 (72) 94 09/12/17 00:00 108 09/11/17 22:00 109 09/11/17 20:00 98.2 117 31 101/73 (82) 94 09/11/17 20:00 117 09/11/17 19:00 96 Nasal Cannula 3.00 09/11/17 18:00 98.4 113 35 93/62 (72) 94 09/11/17 17:30 114 33 103/65 (78) 79 I/O 09/11/17 09/11/17 09/11/17 09/12/17 09/12/17 09/12/17 07:00 15:00 23:00 07:00 15:00 23:00 Intake Total 1402.5 ml 15 ml 2075.0 ml 1200 ml 302.5 ml Output Total 700 ml 900 ml 1200 ml Balance 702.5 ml 15 ml 1175.0 ml 0 ml 302.5 ml Intake Oral 480 ml 900 ml 1200 ml IV Total 922.5 ml 775.0 ml 302.5 ml Packed Cells 400 ml Blood Product IV Normal Saline Flush 15 ml Output Urine Total 700 ml 900 ml 1200 ml # Voids 2 # Bowel Movements 0 2 1 Result Diagram: 09/12/1795409/12/17954 Objective Remarks GENERAL: patient sitting up on edge of bed. Appears couple. SKIN: Warm and dry. HEAD: Normocephalic. EYES: No scleral icterus. No injection or drainage. NECK: Supple, trachea midline. No JVD or lymphadenopathy. CARDIOVASCULAR: Regular rate and rhythm without murmurs, gallops, or rubs. RESPIRATORY: Breath sounds equal bilaterally. No accessory muscle use. GASTROINTESTINAL: Abdomen soft, non-tender, nondistended. MUSCULOSKELETAL: No cyanosis. +2 edema left lower extremity. +1 edema right lower extremity. Nontender. No broken skin. BACK: Nontender without obvious deformity. No CVA tenderness. A/P Assessment and Plan Neuro/Psych: //IVDU -hydromorphone //History of THC use - Continue pain control hydrocodone/acetaminophen 10/325 1 tablet every 4 hours as needed pain 1 through 5 with hydromorphone 2 mg IV every 4 hours as needed pain 6-10 (patient has severe pain from ischemic leg) - Acetaminophen 650 mg p.o. every 6 hours as needed fever CT brain 09/08 order while on Argatroban-3 focal areas of abnormal contrast enhancement scattered within both hemispheres, cerebritis = 09/12. Decrease Dilaudid from 2 mg IV to 1 mg IV every 4 hours. Switched to by mouth tomorrow. CVS/ID //Septic shock //Infective endocarditis involving aortic prosthetic valve //Tricuspid valve endocarditis //Multiple septic emboli including pulmonary, splenic and vascular //History of fungal and bacterial prosthetic valve endocarditis //Strep viridans bacteremia //5-6 cm length total occlusion of the left superficial femoral artery in the proximal thigh - Recurrent aortic prosthetic valve endocarditis -initially placed 2010 with redo 2015. - Now with strep viridans in blood cultures 08/31 - Broad-spectrum antibiotic with ampicillin and gentamicin. 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 Holloway following - Anticoagulation with argatroban gtt at 0.75 mcg/kg/min - Infectious disease Dr. Sloan - Extensive counselling given about IP Rehab -CTS evaluation Dr. Bains-no surgical intervention planned - Case management consulted with [facility]-denied for transfer no surgical intervention planned = Infectious disease and hematology following. Appreciate assistance. Continue IV antibiotics as per ID. Continue her gastric band with transition to warfarin as per hematology. Appreciate assistance. Microbiology 09/04 -blood cultures 2 -no growth 08/31 -urine culture -no growth 08/31 -blood cultures 2 -strep viridians Resp: //Acute respiratory insufficiency //5 pulmonary nodules likely septic emboli //Pleural effusions -Nasal cannula to keep oxygen saturation above 92% currently on 4 L -Incentives spirometry while awake -As needed albuterol aerosols every 2 hours. Dyspnea - CT thorax revealed 5 bilateral pulmonary lesions/nodules largest which is 19 mm. No cavitation noted but likely septic emboli. CT pulmonary angiogram 09/08-pulmonary emboli bilateral lower lobes GI: //Hepatitis C //Splenic infarction //Hypoalbuminemia - Heart healthy diet -Famotidine for GI prophylaxis -Docusate sodium/senna 1 tablet twice daily for bowel regimen Renal/: //Acute on chronic kidney disease //Left renal cortical infarction - Acute renal failure secondary to ATN and dehydration - CT imaging revealed left renal cortical infarction - Renal ultrasound-thickening of urinary bladder - Creatinine 0.8-will give 40 mg Lasix IV 1 dose = Acute kidney injury has resolved. Endo: Sliding scale insulin if indicated to maintain euglycemia Heme: //Microcytic anemia //Leukocytosis - Monitor CBC CMP and coags -Hemoglobin 6.6. Transfuse1 unit of packed red blood cells -Obtain Hemoccult -Obtain LDH, haptoglobin, fibrinogen, PT and INR levels -Heme-Onc following -Monitor H&H every 12 hours, consider CT of the abdomen and pelvis if continued decrease in levels = 09/12. Hemoglobin improved from 6.8-7.7 Status post transfusion yesterday. Hemoglobin is stable at 7.9 from 7.7 yesterday. Continue to monitor. Suspect that there is a large component of anemia of inflammation. Haptoglobin pending. Rescreen pending. Hemoglobin electrophoresis pending. FEN: //Hyponatremia //Hypokalemia 09/12. Potassium 2.8 down from 3.0 yesterday having not been replaced. Replaced today. Recheck tomorrow. MSK: //History of right breast abscess //Elevated BMI - Ultrasound of the left lower extremity negative for DVT - Right breast ultrasound negative for abscess -Weight loss encouraged //DVT GI prophylaxis - argatroban gtt - famotidine 09/10-Case management consulted, possible transfer to [facility] were patient received prosthetic aortic valve.I spoke with Dr. Hill CT Surgeon , will not accept pt for transfer, patient still active IVDU, Per report attempted transferred to [facility] - patient was not accepted .D /W patient,and BERRY GROWER at bedside (Jairo) Discharge Planning continued IV antibiotics. Transfer to floor. Timoteo Harvey MD Sep 12, 2017 17:14
[2017-09-12] MEDS: SODIUM CHLORIDE 0.9% FLUSH 10 ML FLUSH IV FLUSH PRN (23:05)
[2017-09-13] VITALS (16 sets, daily range): BP systolic 91–109; BP diastolic 59–73; PULSE 96–124; RESP 20–24; TEMP 98.3–99.8; O2SAT 77–100
[2017-09-13] MEDS ORDERED: PHARMACY ORDERED LAB ONE (01:45)
[2017-09-13] MEDS: VANCOMYCIN INJ 1,750 MG in SODIUM CHLORID 0.9% 500 ML INJ 500 ML IV SCH (03:28)
[2017-09-13] MEDS: AMPICILLIN INJ 2,000 MG in SODIUM CHLORIDE 0.9% INJ 100 ML IV SCH ×4 (03:28→21:22)
[2017-09-13] MEDS: HYDROmorphone HCL PF 2 MG/ML VIAL IV PUSH PRN ×5 (03:29→21:21)
[2017-09-13] MEDS: CHLORHEXIDINE GLUCONATE 2 % 1 PACK (2 CLOTHS) TOP SCH (04:00)
[2017-09-13 04:03] LABS: AUTOMATED NEUTROPHIL # 10.7 TH/MM3 (1.8-7.7); BASOPHIL # 0.1 TH/MM3 (0-0.2); BASOPHIL % 0.7 % (0.0-2.0); EOSINOPHIL # 0.2 TH/MM3 (0-0.4); EOSINOPHIL % 1.2 % (0.0-4.0); HEMATOCRIT 22.6 % (35.0-46.0); HEMOGLOBIN 7.4 GM/DL (11.6-15.3); LYMPH % 10.8 % (9.0-44.0); LYMPHOCYTE # 1.5 TH/MM3 (1.0-4.8); MEAN CELL VOLUME 73.4 FL (80.0-100.0); MEAN CORPUSCULAR HEMOGLOBIN 24.1 PG (27.0-34.0); MEAN CORPUSCULAR HGB CONC 32.8 % (32.0-36.0); MEAN PLATELET VOLUME 7.8 FL (7.0-11.0); MONO % 8.4 % (0.0-8.0); MONOCYTE # 1.1 TH/MM3 (0-0.9); NEUT % 78.9 % (16.0-70.0); PLATELET COUNT 317 TH/MM3 (150-450); RED BLOOD COUNT 3.08 MIL/MM3 (4.00-5.30); WHITE BLOOD COUNT 13.6 TH/MM3 (4.0-11.0)
[2017-09-13 04:31] LABS: CALCIUM 8.1 MG/DL (8.5-10.1); CREATININE 0.84 MG/DL (0.50-1.00); MAGNESIUM 1.9 MG/DL (1.5-2.5)
[2017-09-13 04:34] LABS: PHOSPHORUS 3.8 MG/DL (2.5-4.9); VANCOMYCIN TROUGH 18.6 MCG/ML (5.0-10.0)
[2017-09-13] MEDS: ACETAMINOPHEN/HYDROcodone 325 MG/10 MG TAB PO PRN ×5 (05:07→23:57)
[2017-09-13] MEDS: GENTAMICIN INJ 100 MG in SODIUM CHLORIDE 0.9% INJ 100 ML IV SCH ×3 (05:09→21:22)
[2017-09-13] MEDS ORDERED: POTASSIUM CHLORIDE 20 MEQ CONTROLLED RELEASE TAB PO ONE (05:15)
[2017-09-13] MEDS: DOCUSATE SODIUM 50 MG/SENNA 8.6 MG TAB PO SCH ×2 (07:21→21:21)
[2017-09-13] MEDS: FAMOTIDINE 20 MG TAB PO SCH ×2 (08:13→21:21)
[2017-09-13] MEDS: SODIUM CHLORIDE 0.9% FLUSH 10 ML FLUSH IV FLUSH PRN (08:18)
[2017-09-13] MEDS: SODIUM CHLORIDE 0.9% FLUSH 10 ML FLUSH IV FLUSH SCH ×2 (08:22→21:21)
[2017-09-13] MEDS ORDERED: INFO FOR PHARMACY/READ COMMENT SCH (11:15)
--- NOTE | 2017-09-13 11:15 | PD.VS.PN ---
Subjective Subjective/Hospital Course Pt w/ Improved L LE swelling, discomfort and appearance Objective Vitals/I&O Date Time Temp Pulse Resp B/P (MAP) Pulse Ox O2 Delivery O2 Flow Rate FiO2 09/13/17 10:00 108 09/13/17 09:00 124 09/13/17 09:00 124 77 09/13/17 08:01 107 91/65 (74) 94 09/13/17 08:00 108 09/13/17 07:00 105 95 09/13/17 07:00 97 Nasal Cannula 3.00 09/13/17 07:00 105 09/13/17 06:00 104 09/13/17 04:00 98.8 96 24 98/66 (77) 95 09/13/17 04:00 102 09/13/17 02:00 96 09/13/17 00:00 98.7 100 102/66 (78) 96 09/13/17 00:00 97 09/12/17 22:00 101 09/12/17 21:07 99 Nasal Cannula 2.00 09/12/17 20:00 98.3 110 20 112/70 (84) 96 09/12/17 20:00 102 09/12/17 19:00 97 Nasal Cannula 3.00 09/12/17 18:00 112 09/12/17 16:00 98.5 100 28 107/70 (82) 94 09/12/17 16:00 104 09/12/17 16:00 98.9 104 25 98/68 (78) 96 09/12/17 14:01 94 Nasal Cannula 2.00 09/12/17 14:00 106 09/12/17 12:00 98.5 100 28 107/70 (82) 94 09/12/17 12:00 100 09/12/17 12:00 105 09/12/17 12:00 98.5 105 28 102/76 (85) 94 09/13/17 09/13/17 09/13/17 07:00 15:00 23:00 Intake Total 1620.0 ml Output Total 1700 ml Balance -80.0 ml Physical Exam GENERAL: A&OX3,NAD,GCS15 SKIN: LE Warm and dry w/ motor intact HEAD: Normocephalic. EYES: No scleral icterus. No injection or drainage. NECK: Supple, trachea midline. No JVD or lymphadenopathy. CARDIOVASCULAR: Regular rate and rhythm without murmurs, gallops, or rubs. RESPIRATORY: Breath sounds equal bilaterally. No accessory muscle use. Pt with stable improved L LE swelling and discoloration Strong multiphasic R DP/PT heard via Doppler Laboratory Laboratory Tests Test 09/12/17 17:45 09/12/17 21:45 09/13/17 03:50 09/13/17 06:55 Potassium Level 3.4 3.2 White Blood Count 13.6 Red Blood Count 3.08 Hemoglobin 7.4 Hematocrit 22.6 Mean Corpuscular Volume 73.4 Mean Corpuscular Hemoglobin 24.1 Mean Corpuscular Hemoglobin Concent 32.8 Red Cell Distribution Width 21.0 Platelet Count 317 Mean Platelet Volume 7.8 Neutrophils (%) (Auto) 78.9 Lymphocytes (%) (Auto) 10.8 Monocytes (%) (Auto) 8.4 Eosinophils (%) (Auto) 1.2 Basophils (%) (Auto) 0.7 Neutrophils # (Auto) 10.7 Lymphocytes # (Auto) 1.5 Monocytes # (Auto) 1.1 Eosinophils # (Auto) 0.2 Basophils # (Auto) 0.1 CBC Comment DIFF FINAL Differential Comment Activated Partial Thromboplast Time 40.1 53.9 Blood Urea Nitrogen 8 Creatinine 0.84 Random Glucose 106 Albumin 2.0 Calcium Level 8.1 Phosphorus Level 3.8 Magnesium Level 1.9 Sodium Level 137 Chloride Level 99 Carbon Dioxide Level 30.0 Anion Gap 8 Estimat Glomerular Filtration Rate 77 Vancomycin Level Trough 18.6 Date/Time Source Procedure Growth Status 09/09/17 05:50 Blood Peripheral Aerobic Blood Culture - Preliminary NO GROWTH IN 4 DAYS Resulted 09/09/17 05:50 Blood Peripheral Anaerobic Blood Culture - Preliminary NO GROWTH IN 4 DAYS Resulted 09/10/17 12:28 Stool Stool Stool Occult Blood (DONNY) - Final HEMOCCULT NEGATIVE Complete 09/08/17 21:50 Sputum Expectorated Sputum Gram Stain - Final Complete 09/08/17 21:50 Sputum Expectorated Sputum Sputum Culture - Final HEAVY GROWTH NORMAL RESPIRATORY PATRICIA Complete 08/31/17 22:30 Urine Suprapubic Urine Urine Culture - Final NO GROWTH IN 48 HOURS. Complete Assessment and Plan Plan 36/F w/ focal SFA occlusion but good distal opacification. LE warm w/ motor intact and strong distal pulses present Pt w/ improved swelling and discoloration (L LE) Plan Pt with significant L LE improvement Pt remains motor intact Continue anticoagulation per hematology Pt clear for D/C from a vascular standpoint Arranged out pt f/u with surveillance studies Pt made aware Pt agrees w/ plan Minoo Mandujano NP [facility] [phone] Discharge Planning Pt on anticoagulation but anytime from vascular surgery standpoint ok to WBAT Arrange f/u in 2-3 weeks with Minoo Jim Sep 13, 2017 11:15
--- NOTE | 2017-09-13 11:28 | PD.ONC.PN ---
Subjective Subjective Remarks Afebrile overnight. Patient resting in room in nad. getting ready to be transferred to a med/surg floor. states she feels the same as every other day. tired of being in the hospital. started her period yesterday. Objective Data Date Time Temp Pulse Resp B/P (MAP) Pulse Ox O2 Delivery O2 Flow Rate FiO2 09/13/17 10:00 108 09/13/17 09:00 124 09/13/17 09:00 124 77 09/13/17 08:01 107 91/65 (74) 94 09/13/17 08:00 108 09/13/17 07:00 105 95 09/13/17 07:00 97 Nasal Cannula 3.00 09/13/17 07:00 105 09/13/17 06:00 104 09/13/17 04:00 98.8 96 24 98/66 (77) 95 09/13/17 04:00 102 09/13/17 02:00 96 09/13/17 00:00 98.7 100 102/66 (78) 96 09/13/17 00:00 97 09/12/17 22:00 101 09/12/17 21:07 99 Nasal Cannula 2.00 09/12/17 20:00 98.3 110 20 112/70 (84) 96 09/12/17 20:00 102 09/12/17 19:00 97 Nasal Cannula 3.00 09/12/17 18:00 112 09/12/17 16:00 98.5 100 28 107/70 (82) 94 09/12/17 16:00 104 09/12/17 16:00 98.9 104 25 98/68 (78) 96 09/12/17 14:01 94 Nasal Cannula 2.00 09/12/17 14:00 106 09/12/17 12:00 98.5 100 28 107/70 (82) 94 09/12/17 12:00 100 09/12/17 12:00 105 09/12/17 12:00 98.5 105 28 102/76 (85) 94 09/13/17 09/13/17 09/13/17 07:00 15:00 23:00 Intake Total 1620.0 ml Output Total 1700 ml Balance -80.0 ml Result Diagram: 09/13/17 0350 09/13/17 0350 Laboratory Results Laboratory Tests Test 09/12/17 17:45 09/12/17 21:45 09/13/17 03:50 09/13/17 06:55 Potassium Level 3.4 MEQ/L 3.2 MEQ/L White Blood Count 13.6 TH/MM3 Red Blood Count 3.08 MIL/MM3 Hemoglobin 7.4 GM/DL Hematocrit 22.6 % Mean Corpuscular Volume 73.4 FL Mean Corpuscular Hemoglobin 24.1 PG Mean Corpuscular Hemoglobin Concent 32.8 % Red Cell Distribution Width 21.0 % Platelet Count 317 TH/MM3 Mean Platelet Volume 7.8 FL Neutrophils (%) (Auto) 78.9 % Lymphocytes (%) (Auto) 10.8 % Monocytes (%) (Auto) 8.4 % Eosinophils (%) (Auto) 1.2 % Basophils (%) (Auto) 0.7 % Neutrophils # (Auto) 10.7 TH/MM3 Lymphocytes # (Auto) 1.5 TH/MM3 Monocytes # (Auto) 1.1 TH/MM3 Eosinophils # (Auto) 0.2 TH/MM3 Basophils # (Auto) 0.1 TH/MM3 CBC Comment DIFF FINAL Differential Comment Activated Partial Thromboplast Time 40.1 SEC 53.9 SEC Blood Urea Nitrogen 8 MG/DL Creatinine 0.84 MG/DL Random Glucose 106 MG/DL Albumin 2.0 GM/DL Calcium Level 8.1 MG/DL Phosphorus Level 3.8 MG/DL Magnesium Level 1.9 MG/DL Sodium Level 137 MEQ/L Chloride Level 99 MEQ/L Carbon Dioxide Level 30.0 MEQ/L Anion Gap 8 MEQ/L Estimat Glomerular Filtration Rate 77 ML/MIN Vancomycin Level Trough 18.6 MCG/ML Culture Results Microbiology Date/Time Source Procedure Growth Status 09/10/17 12:28 Stool Stool Stool Occult Blood (DONNY) - Final HEMOCCULT NEGATIVE Complete Administered Medications Medications (Trade) Dose Ordered Sig/Jessica Route PRN Reason Start Time Stop Time Status Last Admin Dose Admin Sodium Chloride (NS Flush) 2 ml UNSCH PRN IV FLUSH FLUSH AFTER USING IV ACCESS 08/31/17 22:00 09/13/17 08:18 Sodium Chloride (NS Flush) 2 ml BID IV FLUSH 09/01/17 09:00 09/13/17 08:22 Acetaminophen (Tylenol) 650 mg Q6H PRN PO fever 08/31/17 22:00 09/10/17 16:02 Temazepam (Restoril) 15 mg HS PRN PO INSOMNIA 08/31/17 22:00 09/11/17 22:08 Chlorhexidine Gluconate (Chlorhexidine 2% Cloth) Taper DAILY@04 TOP 09/01/17 04:00 08/28/18 03:59 09/11/17 03:54 Senna/Docusate Sodium (Armida-Colace) 1 tab BID PO 09/01/17 09:00 09/12/17 21:24 Ampicillin Sodium 2000 mg/Sodium Chloride 100 ml @ 400 mls/hr Q6H IV 09/01/17 14:00 09/13/17 08:13 Loperamide HCl (Imodium) 2 mg Q4H PRN PO Diarrhea 09/03/17 16:15 09/05/17 14:32 Gentamicin Sulfate 100 mg/ Sodium Chloride 102.5 ml @ 100 mls/hr Q8H IV 09/03/17 21:00 09/13/17 05:09 Albuterol Sulfate (Albuterol Neb) 2.5 mg Q2HR NEB PRN NEB dyspnea 09/04/17 11:30 09/12/17 21:05 Famotidine (Pepcid) 20 mg BID PO 09/04/17 21:00 09/13/17 08:13 Argatroban 250 mg/ Sodium Chloride 252.5 ml @ 3.11 mls/hr TITRATE PRN IV aPTT < 50 09/06/17 19:15 09/11/17 21:31 Acetaminophen/ Hydrocodone Bitart ([place] 10-325 Mg) 1 tab Q4H PRN PO pain 1-5 09/09/17 15:00 09/13/17 10:24 Vancomycin HCl 1750 mg/Sodium Chloride 517.5 ml @ 260 mls/hr Q12H IV 09/10/17 02:00 09/13/17 03:28 Warfarin Sodium (Coumadin) 2 mg DAILY@16 PO 09/12/17 16:00 09/12/17 14:44 Hydromorphone HCl (Dilaudid Pf Inj) 1 mg Q4H PRN IV PUSH PAIN SCALE 6 TO 10 09/12/17 19:00 09/13/17 08:14 Objective Remarks GENERAL: chronically ill female sitting up in wheelchair, appears chronically dyspneic. SKIN: Warm and dry. HEAD: Normocephalic. EYES: No injection or drainage. NECK: Supple, trachea midline. CARDIOVASCULAR: +S1, S2, tachy RESPIRATORY: diminished at bases, occasional rhonchi. on O2 via NC GASTROINTESTINAL: Abdomen soft, non-tender, nondistended. EXTREMITIES: bilateral dorsalis pedis pulses palpable. NEUROLOGICAL: awake, alert. normal speech. able to move extremities. Assessment/Plan Problem List: (1) arterial blood clot Plan: --on Argatroban bridge to coumadin. -- no significant family history of thrombotic events to suggest hereditary antithrombin deficiency. suspect the antithrombin deficiency comes from her impaired production from her liver disease. --has chronic active hepatitis C. ++increased consumption from disseminated intravascular coagulation and acute illness, bacterial endocarditis. --Protein losses are also considered. She had mild proteinuria when she first was admitted. --Thrombin inactivates antithrombin. This would abrogate the effect of unfractionated heparin and low molecular weight heparin. (2) Acute septic pulmonary embolism ICD Codes: I26.90 - Septic pulmonary embolism without acute cor pulmonale Plan: -- The echocardiogram on 09/08 showed an estimated EF of 50-55%. There was severe tricuspid regurgitation with prosthesis in place. 2 x 4 cm mobile vegetation was seen on the valve. The right atrium and right ventricle were normal in size and function (3) Microcytic anemia ICD Codes: D50.9 - Iron deficiency anemia, unspecified Plan: --likely d/t inflammation/infection. no evidence of bleeding or hemolysis. --B12/folate WNL --low iron and percent saturation. normal TIBC, elevated ferritin-->more consistent with anemia of chronic disease. --stool Hemoccult negative. --no evidence of hemolysis Assessment 36y/o female admitted with recurrent endocarditis. hematology consulted for anticoagulation assistance. h/o Recurrent bacterial endocarditis, bacteremia, history of prosthetic aortic valve and subsequent redo, chronic active hepatitis C, intravenous drug use, microcytic anemia, consistent with iron deficiency, left lower extremity arterial event, bacterial endocarditis with viridans streptococcus. HPI (brought forward for continuity of care): history of IV drug abuse and recurrent endocarditis. had a relapse of her activity. has history of pulmonary embolism and infected valves. +significant congestive heart failure and presented to the emergency room on 08/31/2017, with sepsis. is followed by Infectious Disease for her endocarditis. previously received antibiotic therapy for enterococcus faecalis and staph aureus. There is questionable compliance. Her current blood culture from 08/31/2017, shows viridans streptococcus. Two out of two bottles were positive. She is on ampicillin and gentamicin. course is complicated by cold left lower extremity, evaluated by Vascular Surgery. 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 There is satisfactory calf runoff present. For this reason , conservative management with anticoagulation is continued. was placed on unfractionated heparin. Her heparin dose has been titrated from 1000 units/ hour to 2500 units/hour with a PTT remaining subtherapeutic. Her last PTT is 32 seconds from 09/06/2017, at 2 p.m. For this reason, Hematology/Oncology is consulted. Plan 1. continue Argatroban bridge to coumadin (INR should be greater than 4.0 before argatroban is stopped) 2. monitor INR daily. Attending Statement The exam, history, and the medical decision-making described in the above note were completed with the assistance of the mid-level provider. I reviewed and agree with the findings presented. I attest that I had a [id number] encounter with the patient on the same day, and personally performed and documented my assessment and findings in the medical record. Pt seen and examined. Sitting a side of bed, very SOB with simple activity of getting back to bed. Leg feels better, leaning on it as she scuttles up in bed. BL edema unchanged. Discussed plan to continue anticoagulant therapy bridge to therapeutic InR w/ Coumadin. Jennifer Bailey Sep 13, 2017 11:28 Myra Silva MD Sep 13, 2017 13:53
[2017-09-13 12:14] LABS: INTERNATIONAL NORMALIZED RATIO 2.1 RATIO; PROTHROMBIN TIME - PATIENT 21.2 SEC (9.8-11.6)
--- NOTE | 2017-09-13 14:37 | HHI.PR ---
Subjective Remarks Follow-up for endocarditis, septic emboli in a patient with previous episodes of endocarditis. Patient is resting in bed. Complains of shortness of breath. She is tolerating diet well. No fever or chills. Objective Vitals Vital Signs Date Time Temp Pulse Resp B/P (MAP) Pulse Ox O2 Delivery O2 Flow Rate FiO2 09/13/17 12:52 18 09/13/17 12:00 98.3 100 22 103/72 (82) 99 09/13/17 10:00 108 09/13/17 09:00 124 09/13/17 09:00 124 77 09/13/17 08:01 107 91/65 (74) 94 09/13/17 08:00 108 09/13/17 07:00 105 95 09/13/17 07:00 97 Nasal Cannula 3.00 09/13/17 07:00 105 09/13/17 06:00 104 09/13/17 04:00 98.8 96 24 98/66 (77) 95 09/13/17 04:00 102 09/13/17 02:00 96 09/13/17 00:00 98.7 100 102/66 (78) 96 09/13/17 00:00 97 09/12/17 22:00 101 09/12/17 21:07 99 Nasal Cannula 2.00 09/12/17 20:00 98.3 110 20 112/70 (84) 96 09/12/17 20:00 102 09/12/17 19:00 97 Nasal Cannula 3.00 09/12/17 18:00 112 09/12/17 16:00 98.5 100 28 107/70 (82) 94 09/12/17 16:00 104 09/12/17 16:00 98.9 104 25 98/68 (78) 96 I/O 09/12/17 09/12/17 09/12/17 09/13/17 09/13/17 09/13/17 07:00 15:00 23:00 07:00 15:00 23:00 Intake Total 1200 ml 302.5 ml 2046.5 ml 1620.0 ml Output Total 1200 ml 1875 ml 1700 ml Balance 0 ml 302.5 ml 171.5 ml -80.0 ml Intake Oral 1200 ml 900 ml 900 ml IV Total 302.5 ml 1146.5 ml 720.0 ml Output Urine Total 1200 ml 1875 ml 1700 ml # Bowel Movements 1 1 0 Result Diagram: 09/13/17 0350 09/13/17 0350 Imaging Last Impressions Chest X-Ray 09/10/17 0600 Signed Impressions: Service Date/Time: Sunday, September 10, 2017 03:52 - CONCLUSION: There is a small to moderate size right pleural effusion with associated volume loss and/or airspace consolidation. The pleural effusion has increased from the prior examination. Adalid Galo MD Head CT 09/08/17 0000 Signed Impressions: Service Date/Time: Friday, September 08, 2017 10:22 - CONCLUSION: 1. Focal area of decreased density involving the right parietal lobe. As a new finding from the prior exam. This could relate to a small infarct. MRI of the brain with gadolinium suggested to further evaluate. 2. Small lacunar infarction involving the left centrum semiovale. Ananth Ponce Jr., MD CT Angiography 09/08/17 0000 Signed Impressions: Service Date/Time: Friday, September 08, 2017 10:28 - CONCLUSION: There extensive pulmonary emboli bilaterally. There is near complete cut off of the right lower lobe pulmonary artery. Prominent filling defects on the left as well. These findings were relayed to Dr. Dominguez immediately at the completion of the study. Scattered pulmonary infiltrates, small pleural effusion and extensive mediastinal lymphadenopathy as described above. Karsten Crowder MD Brain MRI 09/08/17 0000 Signed Impressions: Service Date/Time: Friday, September 08, 2017 18:04 - CONCLUSION: Deterioration in the appearance of the scan. At least 3 focal areas of abnormal contrast enhancement are present scattered to in both hemispheres. Given the history this most likely represents developing areas cerebritis. Exam is compromised by an uncooperative patient and motion artifact. These 2 factors make detection of other abnormalities such as cortical cephalitis and meningitis difficult to exclude. Cannot exclude hemorrhagic lesions as well. There is no mass effect evident. Geremias Mauricio MD Chest CT 09/03/17 0000 Signed Impressions: Service Date/Time: Sunday, September 03, 2017 12:41 - CONCLUSION: 1. There are at least 5 pulmonary nodules present bilaterally with the largest measuring 19 mm. None demonstrate cavitation but it is possible that these represent septic emboli. Suggest followup to assess for change. 2. Splenomegaly with subtle wedge-shaped areas of low-density in the mid spleen which could represent infarcts. 3. Mild cardiomegaly in this patient post aortic valve replacement. Low density of the cardiac blood pool suggests anemia. Adalid Galo MD Aorta w/Runoff CTA 09/02/17 0000 Signed Impressions: Service Date/Time: Saturday, September 02, 2017 12:47 - CONCLUSION: Left renal cortical infarction. 5-6 cm length total occlusion of the left superficial femoral artery in the proximal thigh. Nodular parenchymal opacities in the lung bases bilaterally See above discussion. Adalid Dallas MD Renal Ultrasound 09/01/17 0000 Signed Impressions: Service Date/Time: Friday, September 01, 2017 10:53 - CONCLUSION: 1. No evidence of hydronephrosis. 2. Thickening of the urinary bladder wall a 1.1 cm. 3. Prominent splenomegaly. Baldemar Pineda MD Breast Ultrasound 09/01/17 0000 Signed Impressions: Service Date/Time: Friday, September 01, 2017 10:48 - CONCLUSION: Negative targeted right breast ultrasound examination. Adalid Haney MD Lower Extremity Ultrasound 08/31/17 0000 Signed Impressions: Service Date/Time: Thursday, August 31, 2017 21:22 - CONCLUSION: 1. No sonographic evidence for lower extremity DVT. 2. Incidental note of bilateral inguinal adenopathy with the largest on the right measuring 3.3 cm and the largest on the left measuring 2.6 cm. This finding is nonspecific but is typically reactive in etiology. Luis Leija MD Objective Remarks GENERAL: SKIN: Warm and dry. HEAD: Normocephalic. EYES: No scleral icterus. No injection or drainage. NECK: Supple, trachea midline. No JVD or lymphadenopathy. CARDIOVASCULAR: Regular rate and rhythm without, gallops, or rubs. Systolic murmur appreciated. RESPIRATORY: Breath sounds equal bilaterally. No accessory muscle use. GASTROINTESTINAL: Abdomen soft, non-tender, nondistended. MUSCULOSKELETAL: No cyanosis. 1+ lower extremity edema. BACK: Nontender without obvious deformity. No CVA tenderness. Date of Insertion: Sep 01, 2017 Line: Central Venous Catheter Side: Right Location: Internal, Jugular A/P Problem List: (1) Prosthetic valve endocarditis ICD Code: T82.6XXA - Infection and inflammatory reaction due to cardiac valve prosthesis, initial encounter Status: Acute (2) Bacteremia ICD Code: R78.81 - Bacteremia (3) Septic pulmonary embolism ICD Code: I26.90 - Septic pulmonary embolism without acute cor pulmonale Status: Acute (4) IVDU (intravenous drug user) ICD Code: F19.90 - Other psychoactive substance use, unspecified, uncomplicated Assessment and Plan Ms. Segal is a 36-year-old female with a history of IV drug use, previous endocarditis who presented to the emergency department on 08/31/2017 due to shortness of breath and leg swelling. She has bioprosthesis valves both aortic and tricuspid. She admitted that she injected herself 4 days prior to this hospitalization. She apparently completed IV antibiotics course in April and after that she was on doxycycline prophylaxis. She reports that she has not been taking her antibiotics doxycycline. Patient was initially managed in the ICU where she required pressors. 2D echo shows both aortic valve and tricuspid valve prosthesis endocarditis. Cardiothoracic surgery evaluated and determined that patient is not a good surgical candidate. During ICU stay, patient was found to have septic emboli as well. Hematology was consulted for recommendations regarding anticoagulation. Patient was started on argatroban bridging to warfarin. 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 -Patient is also currently on vancomycin pharmacy to dose. -Continue on Atrovent to warfarin bridge -Septic pulmonary embolism -Pulmonary hypertension -Acute exacerbation of diastolic congestive heart failure with preserved left ventricular ejection fraction -We will consider diuresis due to shortness of breath. -Start Lasix IV 20 mg twice daily. - Acute kidney injury - resolved. - Hypokalemia - K+ 3.2. Will replace with PO KCL. Full code. Argatroban, Warfarin. INR 2.1. Continue Argatroban until INR > 4.0. Overall poor prognosis. Palliative care following. Problem Qualifiers (1) Prosthetic valve endocarditis: Qualified Codes: T82.6XXA - Infection and inflammatory reaction due to cardiac valve prosthesis, initial encounter Shin Jane DO Sep 13, 2017 14:37
[2017-09-13] MEDS: WARFARIN SOD 2 MG TAB PO SCH (14:57)
[2017-09-13] MEDS: VANCOMYCIN 1,500 MG/NS 500 ML IV SCH ×2 (14:58)
[2017-09-13] MEDS: RESP: ALBUTEROL 2.5 MG/3 ML NEB (PRN) NEB ×2 (16:59→22:07)
--- NOTE | 2017-09-13 18:30 | HHI.IDPN ---
Note Infectious Disease Note Patient complains of shortness of breath. Occasional cough. Afebrile. Notes mild pain in the left leg. 36-year-old white female who has a history of endocarditis and has been admitted several times for the same. The patient developed shortness of breath, fever and chills, and presented to the emergency department. The patient is noted to be actively using IV drugs. She has history of significant CHF from prior valvular heart disease related to endocarditis. She states that she started feeling short of breath about a week ago and the shortness of breath worsened. After she completed IV antibiotics in April she was put on doxycycline prophylaxis. She reports that she has not been taking the doxycycline. PAST MEDICAL HISTORY: Hepatitis C. IV drug use. prosthetic aortic valve replacement in 2010 and then redo aortic valve replacement in December 2015 MEDICATIONS: 1. Gentamicin. 2. Ampicillin. 3. Vancomycin. SOCIAL HISTORY: Positive occasional alcohol. No tobacco. IV drug use in the form of Dilaudid, oxycodone. The patient also uses marijuana. OBJECTIVE: Vital Signs Date Time Temp Pulse Resp B/P (MAP) Pulse Ox O2 Delivery O2 Flow Rate FiO2 09/13/17 17:54 20 09/13/17 16:59 98 Nasal Cannula 3.00 09/13/17 16:56 18 09/13/17 16:00 98.5 102 20 105/59 (74) 100 09/13/17 12:00 98.3 100 22 103/72 (82) 99 09/13/17 10:00 108 09/13/17 09:00 124 09/13/17 09:00 124 77 09/13/17 08:01 107 91/65 (74) 94 09/13/17 08:00 108 09/13/17 07:00 105 95 09/13/17 07:00 97 Nasal Cannula 3.00 09/13/17 07:00 105 09/13/17 06:00 104 09/13/17 04:00 98.8 96 24 98/66 (77) 95 09/13/17 04:00 102 09/13/17 02:00 96 09/13/17 00:00 98.7 100 102/66 (78) 96 09/13/17 00:00 97 09/12/17 22:00 101 09/12/17 21:07 99 Nasal Cannula 2.00 09/12/17 20:00 98.3 110 20 112/70 (84) 96 09/12/17 20:00 102 09/12/17 19:00 97 Nasal Cannula 3.00 Laboratory Tests Test 09/11/17 19:15 09/12/17 04:45 09/12/17 09:55 09/12/17 17:45 Hemoglobin 7.7 GM/DL 7.8 GM/DL 7.9 GM/DL Hematocrit 24.1 % 23.8 % 24.1 % White Blood Count 14.4 TH/MM3 Red Blood Count 3.31 MIL/MM3 Mean Corpuscular Volume 72.7 FL Mean Corpuscular Hemoglobin 23.9 PG Mean Corpuscular Hemoglobin Concent 32.9 % Red Cell Distribution Width 20.4 % Platelet Count 331 TH/MM3 Mean Platelet Volume 7.9 FL Neutrophils (%) (Auto) 83.5 % Lymphocytes (%) (Auto) 7.9 % Monocytes (%) (Auto) 6.9 % Eosinophils (%) (Auto) 0.8 % Basophils (%) (Auto) 0.9 % Neutrophils # (Auto) 12.0 TH/MM3 Lymphocytes # (Auto) 1.1 TH/MM3 Monocytes # (Auto) 1.0 TH/MM3 Eosinophils # (Auto) 0.1 TH/MM3 Basophils # (Auto) 0.1 TH/MM3 CBC Comment DIFF FINAL Differential Comment Test 09/13/17 03:50 White Blood Count 13.6 TH/MM3 Red Blood Count 3.08 MIL/MM3 Hemoglobin 7.4 GM/DL Hematocrit 22.6 % Mean Corpuscular Volume 73.4 FL Mean Corpuscular Hemoglobin 24.1 PG Mean Corpuscular Hemoglobin Concent 32.8 % Red Cell Distribution Width 21.0 % Platelet Count 317 TH/MM3 Mean Platelet Volume 7.8 FL Neutrophils (%) (Auto) 78.9 % Lymphocytes (%) (Auto) 10.8 % Monocytes (%) (Auto) 8.4 % Eosinophils (%) (Auto) 1.2 % Basophils (%) (Auto) 0.7 % Neutrophils # (Auto) 10.7 TH/MM3 Lymphocytes # (Auto) 1.5 TH/MM3 Monocytes # (Auto) 1.1 TH/MM3 Eosinophils # (Auto) 0.2 TH/MM3 Basophils # (Auto) 0.1 TH/MM3 CBC Comment DIFF FINAL Differential Comment Laboratory Tests Test 09/12/17 09:55 09/12/17 21:45 09/13/17 03:50 Blood Urea Nitrogen 9 MG/DL 8 MG/DL Creatinine 0.94 MG/DL 0.84 MG/DL Random Glucose 142 MG/DL 106 MG/DL Albumin 2.2 GM/DL 2.0 GM/DL Calcium Level 7.9 MG/DL 8.1 MG/DL Phosphorus Level 3.9 MG/DL 3.8 MG/DL Magnesium Level 1.8 MG/DL 1.9 MG/DL Sodium Level 133 MEQ/L 137 MEQ/L Potassium Level 2.8 MEQ/L 3.4 MEQ/L 3.2 MEQ/L Chloride Level 96 MEQ/L 99 MEQ/L Carbon Dioxide Level 29.7 MEQ/L 30.0 MEQ/L Anion Gap 7 MEQ/L 8 MEQ/L Estimat Glomerular Filtration Rate 68 ML/MIN 77 ML/MIN IMAGING: Chest X-Ray 09/10/17 0600 Signed Impressions: Service Date/Time: Sunday, September 10, 2017 03:52 - CONCLUSION: There is a small to moderate size right pleural effusion with associated volume loss and/or airspace consolidation. The pleural effusion has increased from the prior examination. Adalid Galo MD Head CT 09/08/17 0000 Signed Impressions: Service Date/Time: Friday, September 08, 2017 10:22 - CONCLUSION: 1. Focal area of decreased density involving the right parietal lobe. As a new finding from the prior exam. This could relate to a small infarct. MRI of the brain with gadolinium suggested to further evaluate. 2. Small lacunar infarction involving the left centrum semiovale. Ananth Ponce Jr., MD CT Angiography 09/08/17 0000 Signed Impressions: Service Date/Time: Friday, September 08, 2017 10:28 - CONCLUSION: There extensive pulmonary emboli bilaterally. There is near complete cut off of the right lower lobe pulmonary artery. Prominent filling defects on the left as well. These findings were relayed to Dr. Dominguez immediately at the completion of the study. Scattered pulmonary infiltrates, small pleural effusion and extensive mediastinal lymphadenopathy as described above. Karsten Crowder MD Brain MRI 09/08/17 0000 Signed Impressions: Service Date/Time: Friday, September 08, 2017 18:04 - CONCLUSION: Deterioration in the appearance of the scan. At least 3 focal areas of abnormal contrast enhancement are present scattered to in both hemispheres. Given the history this most likely represents developing areas cerebritis. Exam is compromised by an uncooperative patient and motion artifact. These 2 factors make detection of other abnormalities such as cortical cephalitis and meningitis difficult to exclude. Cannot exclude hemorrhagic lesions as well. There is no mass effect evident. Geremias Mauricio MD Renal Ultrasound 09/01/17 0000 Signed Impressions: Service Date/Time: Friday, September 01, 2017 10:53 - CONCLUSION: 1. No evidence of hydronephrosis. 2. Thickening of the urinary bladder wall a 1.1 cm. 3. Prominent splenomegaly. Baldemar Pineda MD Chest X-Ray 09/01/17 0000 Signed Impressions: Service Date/Time: Friday, September 01, 2017 09:36 - CONCLUSION: Right internal jugular central line in place with the tip overlying the SVC. A pneumothorax is not seen. Adalid Haney MD Breast Ultrasound 09/01/17 0000 Signed Impressions: Service Date/Time: Friday, September 01, 2017 10:48 - CONCLUSION: Negative targeted right breast ultrasound examination. Adalid Haney MD Lower Extremity Ultrasound 08/31/17 0000 Signed Impressions: Service Date/Time: Thursday, August 31, 2017 21:22 - CONCLUSION: 1. No sonographic evidence for lower extremity DVT. 2. Incidental note of bilateral inguinal adenopathy with the largest on the right measuring 3.3 cm and the largest on the left measuring 2.6 cm. This finding is nonspecific but is typically reactive in etiology. Luis Leija MD PHYSICAL EXAMINATION GENERAL: No acute distress. HEENT: No icterus. Oropharynx moist mucosa, no lesions. Neck: Supple without adenopathy. Lungs: Coarse bilateral rhonchi. Heart: 5/6 blowing systolic murmur at the upper right sternal border. Abdomen: Bowel sounds present, soft, obese, nontender. Extremities: Diffuse 1+ edema of the lower extremities. Lesions at Left tibia distally and left foot and great toe are more red and not purpuric as before. Toes 3 and 5 are no longer cyanotic. Pupils are rate lesion at the tuft of the left fifth toe. Left leg warm. No calf tenderness. No nail hemorrhages. SKIN: no diffuse rash. Neuro: No gross focal findings. Psychiatric: calm and cooperative. IMPRESSION 1. Sepsis. Strep Viridans. 2. Tricuspid valve endocarditis. Large vegetation. Tricuspid regurgitation. Patient evaluated by cardiovascular surgery and felt not to be a surgical candidate. 3. Bacteremia. Strep viridans. Repeat blood cultures are pending. Previous repeat blood cultures were negative. 4. History of prosthetic aortic valve and so likely recurrent prosthetic valve endocarditis. 5. Cerebritis on MRI. Also has parietal infarct noted on CT scan of the brain. 6. Left renal cortical and pulmonary and lower extremity septic emboli. 7. Leukocytosis secondary to sepsis from showering of emboli from endocarditis. 8. Acute renal failure. Kidney function improved. She did appears to be more stable. However she continues to experience breathing difficulty. RECOMMENDATIONS 1. Continue Ampicillin intravenous. 2. Continue Gentamicin. now that the kidney function is improved but follow the renal function. 3. Continue vancomycin. Pharmacy managing. 4. Monitor clinical status. 5. Continue to monitor the left leg lesions. 6. Consider lumbar puncture if the mentation deteriorates. Edmar Sloan MD Sep 13, 2017 18:30
[2017-09-13] MEDS: POTASSIUM CHLORIDE 20 MEQ CONTROLLED RELEASE TAB PO SCH (21:30)
[2017-09-14] VITALS (10 sets, daily range): BP systolic 90–104; BP diastolic 55–67; PULSE 82–116; RESP 14–24; TEMP 97.6–98.8; O2SAT 96–100
[2017-09-14] MEDS: VANCOMYCIN 1,500 MG/NS 500 ML IV SCH ×4 (02:09→16:09)
[2017-09-14] MEDS: HYDROmorphone HCL PF 2 MG/ML VIAL IV PUSH PRN ×5 (02:09→20:30)
[2017-09-14] MEDS: AMPICILLIN INJ 2,000 MG in SODIUM CHLORIDE 0.9% INJ 100 ML IV SCH ×4 (02:10→20:30)
[2017-09-14] MEDS: CHLORHEXIDINE GLUCONATE 2 % 1 PACK (2 CLOTHS) TOP SCH (04:00)
[2017-09-14] MEDS: ACETAMINOPHEN/HYDROcodone 325 MG/10 MG TAB PO PRN (05:02)
[2017-09-14] MEDS: GENTAMICIN INJ 100 MG in SODIUM CHLORIDE 0.9% INJ 100 ML IV SCH ×3 (05:02→22:53)
[2017-09-14] MEDS ORDERED: ALTEPLASE RECOMBINANT 2 MG VIAL IV FLUSH ONE (05:15)
[2017-09-14 07:16] LABS: BASOPHIL # 0.1 TH/MM3 (0-0.2); BASOPHIL % 0.8 % (0.0-2.0); EOSINOPHIL # 0.2 TH/MM3 (0-0.4); EOSINOPHIL % 1.2 % (0.0-4.0); HEMATOCRIT 22.8 % (35.0-46.0); HEMOGLOBIN 7.4 GM/DL (11.6-15.3); LYMPH % 8.2 % (9.0-44.0); LYMPHOCYTE # 1.1 TH/MM3 (1.0-4.8); MEAN CELL VOLUME 74.1 FL (80.0-100.0); MEAN CORPUSCULAR HEMOGLOBIN 24.1 PG (27.0-34.0); MEAN CORPUSCULAR HGB CONC 32.6 % (32.0-36.0); MONO % 8.4 % (0.0-8.0); MONOCYTE # 1.1 TH/MM3 (0-0.9); NEUT % 81.4 % (16.0-70.0); PLATELET COUNT 325 TH/MM3 (150-450); RED BLOOD COUNT 3.08 MIL/MM3 (4.00-5.30); RED CELL DISTRIBUTION WIDTH 21.2 % (11.6-17.2); WHITE BLOOD COUNT 13.5 TH/MM3 (4.0-11.0)
[2017-09-14 07:30] LABS: INTERNATIONAL NORMALIZED RATIO 2.5 RATIO
[2017-09-14] MEDS: DOCUSATE SODIUM 50 MG/SENNA 8.6 MG TAB PO SCH ×2 (09:00→20:31)
[2017-09-14] MEDS ORDERED: FUROSEMIDE 20 MG/2 ML VIAL IV PUSH SCH (09:00)
[2017-09-14] MEDS: FAMOTIDINE 20 MG TAB PO SCH (09:52)
[2017-09-14] MEDS: SODIUM CHLORIDE 0.9% FLUSH 10 ML FLUSH IV FLUSH SCH ×2 (09:53→20:31)
[2017-09-14] MEDS: POTASSIUM CHLORIDE 20 MEQ CONTROLLED RELEASE TAB PO SCH ×2 (09:53→20:31)
[2017-09-14] MEDS: RESP: ALBUTEROL 2.5 MG/3 ML NEB (PRN) NEB (09:54)
--- NOTE | 2017-09-14 10:09 | HHI.PR ---
Subjective Remarks 36-year-old female with a history of IV drug use, previous endocarditis who presented to the emergency department on 08/31/2017 due to shortness of breath and leg swelling. She has bioprosthesis valves both aortic and tricuspid. She admitted that she injected herself 4 days prior to this hospitalization. She apparently completed IV antibiotics course in April and after that she was on doxycycline prophylaxis. She reports that she has not been taking her antibiotics doxycycline. Patient was initially managed in the ICU where she required pressors. 2D echo shows both aortic valve and tricuspid valve prosthesis endocarditis. Cardiothoracic surgery evaluated and determined that patient is not a good surgical candidate. During ICU stay, patient was found to have septic emboli as well. Hematology was consulted for recommendations regarding anticoagulation. Patient was started on argatroban bridging to warfarin. Nursing denies any deterioration since last night. Patient herself says there is been no real changes in her symptoms since yesterday except for minimally increased lower extremity swelling since yesterday despite being started on lasix. Objective Vital Signs Date Time Temp Pulse Resp B/P (MAP) Pulse Ox O2 Delivery O2 Flow Rate FiO2 09/14/17 09:57 98 Nasal Cannula 3.00 09/14/17 07:18 18 09/14/17 06:02 16 09/14/17 04:00 98.5 116 24 97/67 (77) 97 09/14/17 04:00 111 09/14/17 00:00 112 09/13/17 23:48 99.8 116 24 93/73 (80) 98 09/13/17 20:15 109 09/13/17 20:15 Nasal Cannula 4.00 35 Humidified 09/13/17 19:55 99.8 109 22 109/59 (76) 97 09/13/17 19:15 100 09/13/17 16:59 98 Nasal Cannula 3.00 09/13/17 16:00 98.5 102 20 105/59 (74) 100 09/13/17 12:00 98.3 100 22 103/72 (82) 99 I/O 09/13/17 09/13/17 09/13/17 09/14/17 09/14/17 09/14/17 07:00 15:00 23:00 07:00 15:00 23:00 Intake Total 1620.0 ml 200 ml 980 ml 720 ml Output Total 1700 ml 600 ml Balance -80.0 ml 200 ml 380 ml 720 ml Intake Oral 900 ml 480 ml 720 ml IV Total 720.0 ml 200 ml 500 ml Output Urine Total 1700 ml 600 ml # Voids 4 # Bowel Movements 0 1 0 # Sanitary Pads 3 Pads Result Diagram: 09/14/17 0600 09/13/17 0350 Objective Remarks Young white female, lying in bed Clear lung sounds bilaterally, unlabored breathing, no cyanosis, on nasal cannula Moderate to severe lower extremity edema A/P Assessment and Plan 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 Hypokalemia -monitor and replace accordingly Full code. Bridging warfarin and argatroban, warfarin consult placed. Overall poor prognosis. Palliative care following. Iraj Kinsey MD Sep 14, 2017 10:09
[2017-09-14] MEDS ORDERED: FUROSEMIDE 20 MG/2 ML VIAL IV PUSH ONE (10:20)
[2017-09-14] MEDS ORDERED: MISCELLANEOUS PHARMACY INFORMATION OTHER ONE (11:30)
--- NOTE | 2017-09-14 12:15 | PD.ONC.PN ---
Subjective Subjective Remarks Tmax 99.8 overnight. Patient resting in room. complaining of swelling in both her legs and shortness of breath. she is waiting on her 11AM dose of pain medication (patient seen at 1130AM) Objective Data Date Time Temp Pulse Resp B/P (MAP) Pulse Ox O2 Delivery O2 Flow Rate FiO2 09/14/17 09:57 98 Nasal Cannula 3.00 09/14/17 08:00 97.6 104 14 104/61 (75) 98 09/14/17 08:00 Nasal Cannula 4.00 Humidified 09/14/17 07:18 18 09/14/17 06:02 16 09/14/17 04:00 98.5 116 24 97/67 (77) 97 09/14/17 04:00 111 09/14/17 00:00 112 09/13/17 23:48 99.8 116 24 93/73 (80) 98 09/13/17 20:15 109 09/13/17 20:15 Nasal Cannula 4.00 35 Humidified 09/13/17 19:55 99.8 109 22 109/59 (76) 97 09/13/17 19:15 100 09/13/17 16:59 98 Nasal Cannula 3.00 09/13/17 16:00 98.5 102 20 105/59 (74) 100 09/14/17 09/14/17 09/14/17 07:00 15:00 23:00 Intake Total 720 ml Balance 720 ml Result Diagram: 09/14/17 0600 09/13/17 0350 Laboratory Results Laboratory Tests Test 09/14/17 06:00 White Blood Count 13.5 TH/MM3 Red Blood Count 3.08 MIL/MM3 Hemoglobin 7.4 GM/DL Hematocrit 22.8 % Mean Corpuscular Volume 74.1 FL Mean Corpuscular Hemoglobin 24.1 PG Mean Corpuscular Hemoglobin Concent 32.6 % Red Cell Distribution Width 21.2 % Platelet Count 325 TH/MM3 Mean Platelet Volume 8.0 FL Neutrophils (%) (Auto) 81.4 % Lymphocytes (%) (Auto) 8.2 % Monocytes (%) (Auto) 8.4 % Eosinophils (%) (Auto) 1.2 % Basophils (%) (Auto) 0.8 % Neutrophils # (Auto) 11.0 TH/MM3 Lymphocytes # (Auto) 1.1 TH/MM3 Monocytes # (Auto) 1.1 TH/MM3 Eosinophils # (Auto) 0.2 TH/MM3 Basophils # (Auto) 0.1 TH/MM3 CBC Comment DIFF FINAL Differential Comment Prothrombin Time 25.0 SEC Prothromb Time International Ratio 2.5 RATIO Activated Partial Thromboplast Time 54.6 SEC Administered Medications Medications (Trade) Dose Ordered Sig/Jessica Route PRN Reason Start Time Stop Time Status Last Admin Dose Admin Sodium Chloride (NS Flush) 2 ml UNSCH PRN IV FLUSH FLUSH AFTER USING IV ACCESS 08/31/17 22:00 09/13/17 08:18 Sodium Chloride (NS Flush) 2 ml BID IV FLUSH 09/01/17 09:00 09/14/17 09:53 Acetaminophen (Tylenol) 650 mg Q6H PRN PO fever 08/31/17 22:00 09/10/17 16:02 Ondansetron HCl (Zofran Inj) 4 mg Q6H PRN IV PUSH NAUSEA OR VOMITING 08/31/17 22:00 09/13/17 21:22 Temazepam (Restoril) 15 mg HS PRN PO INSOMNIA 08/31/17 22:00 09/11/17 22:08 Chlorhexidine Gluconate (Chlorhexidine 2% Cloth) Taper DAILY@04 TOP 09/01/17 04:00 08/28/18 03:59 09/11/17 03:54 Senna/Docusate Sodium (Armida-Colace) 1 tab BID PO 09/01/17 09:00 09/13/17 21:21 Ampicillin Sodium 2000 mg/Sodium Chloride 100 ml @ 400 mls/hr Q6H IV 09/01/17 14:00 09/14/17 09:52 Loperamide HCl (Imodium) 2 mg Q4H PRN PO Diarrhea 09/03/17 16:15 09/05/17 14:32 Gentamicin Sulfate 100 mg/ Sodium Chloride 102.5 ml @ 100 mls/hr Q8H IV 09/03/17 21:00 09/14/17 11:55 Albuterol Sulfate (Albuterol Neb) 2.5 mg Q2HR NEB PRN NEB dyspnea 09/04/17 11:30 09/14/17 09:54 Argatroban 250 mg/ Sodium Chloride 252.5 ml @ 3.11 mls/hr TITRATE PRN IV aPTT < 50 09/06/17 19:15 09/11/17 21:31 Acetaminophen/ Hydrocodone Bitart ([place] 10-325 Mg) 1 tab Q4H PRN PO pain 1-5 09/09/17 15:00 09/14/17 05:02 Warfarin Sodium (Coumadin) 2 mg DAILY@16 PO 09/12/17 16:00 09/13/17 14:57 Hydromorphone HCl (Dilaudid Pf Inj) 1 mg Q4H PRN IV PUSH PAIN SCALE 6 TO 10 09/12/17 19:00 09/14/17 11:56 Vancomycin HCl 1500 mg/Sodium Chloride 515 ml @ 257.5 mls/ hr Q12H IV 09/13/17 15:00 09/14/17 02:09 Potassium Chloride (KCl) 20 meq Q12HR PO 09/13/17 21:00 09/16/17 20:59 09/14/17 09:53 Objective Remarks GENERAL: chronically ill female very dyspneic climbing back into bed from bedside commode. SKIN: Warm and dry. HEAD: Normocephalic. EYES: No injection or drainage. NECK: Supple, trachea midline. CARDIOVASCULAR: +S1, S2, tachy RESPIRATORY: scattered rhonchi. on O2 via NC GASTROINTESTINAL: Abdomen soft, non-tender, nondistended. EXTREMITIES: bilateral lower extremities with 2+ pitting edema. pulses palpable bilaterally. NEUROLOGICAL: awake and alert. normal speech. moving extremities. Assessment/Plan Problem List: (1) arterial blood clot Plan: --on Argatroban bridge to coumadin. -- no significant family history of thrombotic events to suggest hereditary antithrombin deficiency. suspect the antithrombin deficiency comes from her impaired production from her liver disease. --has chronic active hepatitis C. ++increased consumption from disseminated intravascular coagulation and acute illness, bacterial endocarditis. --Protein losses are also considered. She had mild proteinuria when she first was admitted. --Thrombin inactivates antithrombin. This would abrogate the effect of unfractionated heparin and low molecular weight heparin. (2) Acute septic pulmonary embolism ICD Codes: I26.90 - Septic pulmonary embolism without acute cor pulmonale Plan: -- The echocardiogram on 09/08 showed an estimated EF of 50-55%. ++severe tricuspid regurgitation with prosthesis in place. ++2 x 4 cm mobile vegetation was seen on the valve. The right atrium and right ventricle were normal in size and function (3) Microcytic anemia ICD Codes: D50.9 - Iron deficiency anemia, unspecified Plan: --likely d/t inflammation/infection. no evidence of bleeding or hemolysis. --B12/folate WNL --low iron and percent saturation. normal TIBC, elevated ferritin-->more consistent with anemia of chronic disease. --stool Hemoccult negative. --no evidence of hemolysis (4) Bacterial endocarditis ICD Codes: I33.0 - Acute and subacute infective endocarditis Status: Acute Plan: --on multiple antibiotics, ID following. Assessment 36y/o female admitted with recurrent endocarditis. hematology consulted for anticoagulation assistance. h/o Recurrent bacterial endocarditis, bacteremia, history of prosthetic aortic valve and subsequent redo, chronic active hepatitis C, intravenous drug use, microcytic anemia, consistent with iron deficiency, left lower extremity arterial event, bacterial endocarditis with viridans streptococcus. HPI (brought forward for continuity of care): history of IV drug abuse and recurrent endocarditis. had a relapse of her activity. has history of pulmonary embolism and infected valves. +significant congestive heart failure and presented to the emergency room on 08/31/2017, with sepsis. is followed by Infectious Disease for her endocarditis. previously received antibiotic therapy for enterococcus faecalis and staph aureus. There is questionable compliance. Her current blood culture from 08/31/2017, shows viridans streptococcus. Two out of two bottles were positive. She is on ampicillin and gentamicin. course is complicated by cold left lower extremity, evaluated by Vascular Surgery. 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 There is satisfactory calf runoff present. For this reason , conservative management with anticoagulation is continued. was placed on unfractionated heparin. Her heparin dose has been titrated from 1000 units/ hour to 2500 units/hour with a PTT remaining subtherapeutic. Her last PTT is 32 seconds from 09/06/2017, at 2 p.m. For this reason, Hematology/Oncology was consulted. Plan 1. continue Argatroban and coumadin. 2. monitor INR daily until INR greater than 4.0, then hold Argatroban for four hours and recheck INR off Argatroban. Attending Statement The exam, history, and the medical decision-making described in the above note were completed with the assistance of the mid-level provider. I reviewed and agree with the findings presented. I attest that I had a [id number] encounter with the patient on the same day, and personally performed and documented my assessment and findings in the medical record. c/o SOB and leg pain. PE On argatroban and heparin will follow. Jennifer Bailey Sep 14, 2017 12:15 Raya Miller MD Sep 15, 2017 00:12
[2017-09-14] MEDS: FUROSEMIDE 40 MG/4 ML VIAL IV PUSH SCH (16:08)
[2017-09-14] MEDS: WARFARIN SOD 2 MG TAB PO SCH (16:09)
[2017-09-14] MEDS: ARGATROBAN INJ 250 MG in SODIUM CHLOR 0.9% 250 ML INJ 250 ML IV PRN (18:32)
--- NOTE | 2017-09-14 18:45 | HHI.IDPN ---
Note Infectious Disease Note Patient states that her shortness of breath is the same. Notes that her legs are more swollen than before. She states that the legs became swollen overnight. afebrile. Notes mild pain in the left leg. Denies chest pain. 36-year-old white female who has a history of endocarditis and has been admitted several times for the same. The patient developed shortness of breath, fever and chills, and presented to the emergency department. The patient is noted to be actively using IV drugs. She has history of significant CHF from prior valvular heart disease related to endocarditis. She states that she started feeling short of breath about a week ago and the shortness of breath worsened. After she completed IV antibiotics in April she was put on doxycycline prophylaxis. She reports that she has not been taking the doxycycline. PAST MEDICAL HISTORY: Hepatitis C. IV drug use. prosthetic aortic valve replacement in 2010 and then redo aortic valve replacement in December 2015 MEDICATIONS: 1. Gentamicin. 2. Ampicillin. 3. Vancomycin. Current Medications Medications (Trade) Dose Ordered Sig/Jessica Route PRN Reason Start Time Stop Time Status Last Admin Dose Admin Sodium Chloride (NS Flush) 2 ml UNSCH PRN IV FLUSH FLUSH AFTER USING IV ACCESS 08/31/17 22:00 09/13/17 08:18 Sodium Chloride (NS Flush) 2 ml BID IV FLUSH 09/01/17 09:00 09/14/17 09:53 Acetaminophen (Tylenol) 650 mg Q6H PRN PO fever 08/31/17 22:00 09/10/17 16:02 Ondansetron HCl (Zofran Inj) 4 mg Q6H PRN IV PUSH NAUSEA OR VOMITING 08/31/17 22:00 09/13/17 21:22 Temazepam (Restoril) 15 mg HS PRN PO INSOMNIA 08/31/17 22:00 09/11/17 22:08 Miscellaneous Information 1 Q361D XX 08/31/17 22:00 Chlorhexidine Gluconate (Chlorhexidine 2% Cloth) Taper DAILY@04 TOP 09/01/17 04:00 08/28/18 03:59 09/11/17 03:54 Chlorhexidine Gluconate (Chlorhexidine 2% Cloth) 3 pack UNSCH PRN TOP HYGIENIC CARE 08/31/17 22:00 Senna/Docusate Sodium (Armida-Colace) 1 tab BID PO 09/01/17 09:00 09/13/17 21:21 Magnesium Hydroxide (Milk Of Magnesia Liq) 30 ml Q12H PRN PO Mild constipation 08/31/17 22:00 Sennosides (Senokot) 17.2 mg Q12H PRN PO Moderate constipation 08/31/17 22:00 Bisacodyl (Dulcolax Supp) 10 mg DAILY PRN RECTAL SEVERE CONSITIPATION 08/31/17 22:00 Lactulose (Lactulose Liq) 30 ml DAILY PRN PO SEVERE CONSITIPATION 08/31/17 22:00 Ampicillin Sodium 2000 mg/Sodium Chloride 100 ml @ 400 mls/hr Q6H IV 09/01/17 14:00 09/14/17 16:08 Loperamide HCl (Imodium) 2 mg Q4H PRN PO Diarrhea 09/03/17 16:15 09/05/17 14:32 Gentamicin Sulfate 100 mg/ Sodium Chloride 102.5 ml @ 100 mls/hr Q8H IV 09/03/17 21:00 09/14/17 11:55 Albuterol Sulfate (Albuterol Neb) 2.5 mg Q2HR NEB PRN NEB dyspnea 09/04/17 11:30 09/14/17 09:54 Argatroban 250 mg/ Sodium Chloride 252.5 ml @ 3.11 mls/hr TITRATE PRN IV aPTT < 50 09/06/17 19:15 09/14/17 18:32 Pharmacy Profile Note 0 ml @ 0 mls/hr UNSCH OTHER 09/08/17 16:45 Acetaminophen/ Hydrocodone Bitart ([place] 10-325 Mg) 1 tab Q4H PRN PO pain 1-5 09/09/17 15:00 09/14/17 05:02 Warfarin Sodium (Coumadin) 2 mg DAILY@16 PO 09/12/17 16:00 09/14/17 16:09 Hydromorphone HCl (Dilaudid Pf Inj) 1 mg Q4H PRN IV PUSH PAIN SCALE 6 TO 10 09/12/17 19:00 09/14/17 16:10 Info 1 UNSCH .XX 09/13/17 11:15 Vancomycin HCl 1500 mg/Sodium Chloride 515 ml @ 257.5 mls/ hr Q12H IV 09/13/17 15:00 09/14/17 16:09 Miscellaneous Information SPECIFIC LAB TO BE DRAWN:VANCO TROUGH DATE TO... ONCE ONCE .XX 09/15/17 02:45 09/15/17 02:46 Potassium Chloride (KCl) 20 meq Q12HR PO 09/13/17 21:00 09/16/17 20:59 09/14/17 09:53 Furosemide (Lasix Inj) 40 mg BID@,18 IV PUSH 09/14/17 18:00 09/14/17 16:08 Pharmacy Profile Note 0 ml @ 0 mls/hr UNSCH OTHER 09/14/17 10:15 SOCIAL HISTORY: Positive occasional alcohol. No tobacco. IV drug use in the form of Dilaudid, oxycodone. The patient also uses marijuana. OBJECTIVE: Vital Signs Date Time Temp Pulse Resp B/P (MAP) Pulse Ox O2 Delivery O2 Flow Rate FiO2 09/14/17 16:00 98.8 103 22 90/55 (67) 100 09/14/17 12:00 98.0 97 18 104/67 (79) 99 09/14/17 09:57 98 Nasal Cannula 3.00 09/14/17 08:00 97.6 104 14 104/61 (75) 98 09/14/17 08:00 Nasal Cannula 4.00 Humidified 09/14/17 07:18 18 09/14/17 06:02 16 09/14/17 04:00 98.5 116 24 97/67 (77) 97 09/14/17 04:00 111 09/14/17 00:00 112 09/13/17 23:48 99.8 116 24 93/73 (80) 98 09/13/17 20:15 109 09/13/17 20:15 Nasal Cannula 4.00 35 Humidified 09/13/17 19:55 99.8 109 22 109/59 (76) 97 09/13/17 19:15 100 Laboratory Tests Test 09/13/17 03:50 09/14/17 06:00 White Blood Count 13.6 TH/MM3 13.5 TH/MM3 Red Blood Count 3.08 MIL/MM3 3.08 MIL/MM3 Hemoglobin 7.4 GM/DL 7.4 GM/DL Hematocrit 22.6 % 22.8 % Mean Corpuscular Volume 73.4 FL 74.1 FL Mean Corpuscular Hemoglobin 24.1 PG 24.1 PG Mean Corpuscular Hemoglobin Concent 32.8 % 32.6 % Red Cell Distribution Width 21.0 % 21.2 % Platelet Count 317 TH/MM3 325 TH/MM3 Mean Platelet Volume 7.8 FL 8.0 FL Neutrophils (%) (Auto) 78.9 % 81.4 % Lymphocytes (%) (Auto) 10.8 % 8.2 % Monocytes (%) (Auto) 8.4 % 8.4 % Eosinophils (%) (Auto) 1.2 % 1.2 % Basophils (%) (Auto) 0.7 % 0.8 % Neutrophils # (Auto) 10.7 TH/MM3 11.0 TH/MM3 Lymphocytes # (Auto) 1.5 TH/MM3 1.1 TH/MM3 Monocytes # (Auto) 1.1 TH/MM3 1.1 TH/MM3 Eosinophils # (Auto) 0.2 TH/MM3 0.2 TH/MM3 Basophils # (Auto) 0.1 TH/MM3 0.1 TH/MM3 CBC Comment DIFF FINAL DIFF FINAL Differential Comment Laboratory Tests Test 09/12/17 21:45 09/13/17 03:50 Potassium Level 3.4 MEQ/L 3.2 MEQ/L Blood Urea Nitrogen 8 MG/DL Creatinine 0.84 MG/DL Random Glucose 106 MG/DL Albumin 2.0 GM/DL Calcium Level 8.1 MG/DL Phosphorus Level 3.8 MG/DL Magnesium Level 1.9 MG/DL Sodium Level 137 MEQ/L Chloride Level 99 MEQ/L Carbon Dioxide Level 30.0 MEQ/L Anion Gap 8 MEQ/L Estimat Glomerular Filtration Rate 77 ML/MIN IMAGING: Chest X-Ray 09/10/17 0600 Signed Impressions: Service Date/Time: Sunday, September 10, 2017 03:52 - CONCLUSION: There is a small to moderate size right pleural effusion with associated volume loss and/or airspace consolidation. The pleural effusion has increased from the prior examination. Adalid Galo MD Head CT 09/08/17 0000 Signed Impressions: Service Date/Time: Friday, September 08, 2017 10:22 - CONCLUSION: 1. Focal area of decreased density involving the right parietal lobe. As a new finding from the prior exam. This could relate to a small infarct. MRI of the brain with gadolinium suggested to further evaluate. 2. Small lacunar infarction involving the left centrum semiovale. Ananth Ponce Jr., MD CT Angiography 09/08/17 0000 Signed Impressions: Service Date/Time: Friday, September 08, 2017 10:28 - CONCLUSION: There extensive pulmonary emboli bilaterally. There is near complete cut off of the right lower lobe pulmonary artery. Prominent filling defects on the left as well. These findings were relayed to Dr. Dominguez immediately at the completion of the study. Scattered pulmonary infiltrates, small pleural effusion and extensive mediastinal lymphadenopathy as described above. Karsten Crowder MD Brain MRI 09/08/17 0000 Signed Impressions: Service Date/Time: Friday, September 08, 2017 18:04 - CONCLUSION: Deterioration in the appearance of the scan. At least 3 focal areas of abnormal contrast enhancement are present scattered to in both hemispheres. Given the history this most likely represents developing areas cerebritis. Exam is compromised by an uncooperative patient and motion artifact. These 2 factors make detection of other abnormalities such as cortical cephalitis and meningitis difficult to exclude. Cannot exclude hemorrhagic lesions as well. There is no mass effect evident. Geremias Mauricio MD Renal Ultrasound 09/01/17 0000 Signed Impressions: Service Date/Time: Friday, September 01, 2017 10:53 - CONCLUSION: 1. No evidence of hydronephrosis. 2. Thickening of the urinary bladder wall a 1.1 cm. 3. Prominent splenomegaly. Baldemar Pineda MD Chest X-Ray 09/01/17 0000 Signed Impressions: Service Date/Time: Friday, September 01, 2017 09:36 - CONCLUSION: Right internal jugular central line in place with the tip overlying the SVC. A pneumothorax is not seen. Adalid Haney MD Breast Ultrasound 09/01/17 0000 Signed Impressions: Service Date/Time: Friday, September 01, 2017 10:48 - CONCLUSION: Negative targeted right breast ultrasound examination. Adalid Haney MD Lower Extremity Ultrasound 08/31/17 0000 Signed Impressions: Service Date/Time: Thursday, August 31, 2017 21:22 - CONCLUSION: 1. No sonographic evidence for lower extremity DVT. 2. Incidental note of bilateral inguinal adenopathy with the largest on the right measuring 3.3 cm and the largest on the left measuring 2.6 cm. This finding is nonspecific but is typically reactive in etiology. Luis Leija MD PHYSICAL EXAMINATION GENERAL: No acute distress. HEENT: No icterus. Oropharynx moist mucosa, no lesions. Neck: Supple without adenopathy. Lungs: Coarse bilateral rhonchi. Heart: 5/6 blowing systolic murmur at the upper right sternal border. Abdomen: Bowel sounds present, soft, obese, nontender. Extremities: Diffuse 3+ edema of the lower extremities. Lesions at Left tibia distally and left foot and great toe are more red and not purpuric as before. Toes 3 and 5 are no longer cyanotic. Purple lesion at the tuft of the left fifth toe. Left leg warm. No calf tenderness. No nail hemorrhages. SKIN: no diffuse rash. Neuro: No gross focal findings. Psychiatric: calm and cooperative. IMPRESSION 1. Sepsis. Strep Viridans. 2. Tricuspid valve endocarditis. Large vegetation. Tricuspid regurgitation. Patient evaluated by cardiovascular surgery and felt not to be a surgical candidate. 3. Bacteremia. Strep viridans. Blood cultures have remained negative on follow-up. Last positive blood culture was on 08/31. 4. History of prosthetic aortic valve and so likely recurrent prosthetic valve endocarditis. 5. Cerebritis on MRI. Also has parietal infarct noted on CT scan of the brain. 6. Left renal cortical and pulmonary and lower extremity septic emboli. 7. Leukocytosis secondary to sepsis from showering of emboli from endocarditis. 8. Acute renal failure. Kidney function improved. She did appears to be more stable. However she continues to experience breathing difficulty. RECOMMENDATIONS 1. Continue Ampicillin intravenous. 2. Continue Gentamicin. now that the kidney function is improved but follow the renal function. 3. Stop vancomycin. She is receiving total fluids with antibiotics and it could be contributing to the Increased edema. 4. Monitor clinical status. 5. Continue to monitor the left leg lesions. 6. Consider lumbar puncture if the mentation deteriorates. Edmar Sloan MD Sep 14, 2017 18:45
[2017-09-15] VITALS (8 sets, daily range): BP systolic 92–101; BP diastolic 55–65; PULSE 101–115; RESP 18–20; TEMP 97.7–99.4; O2SAT 94–99
[2017-09-15] MEDS: HYDROmorphone HCL PF 2 MG/ML VIAL IV PUSH PRN ×6 (00:10→23:41)
[2017-09-15] MEDS ORDERED: PHARMACY ORDERED LAB ONE (02:45)
[2017-09-15] MEDS: CHLORHEXIDINE GLUCONATE 2 % 1 PACK (2 CLOTHS) TOP SCH (03:19)
[2017-09-15] MEDS: AMPICILLIN INJ 2,000 MG in SODIUM CHLORIDE 0.9% INJ 100 ML IV SCH ×4 (03:19→21:02)
[2017-09-15] MEDS: GENTAMICIN INJ 100 MG in SODIUM CHLORIDE 0.9% INJ 100 ML IV SCH ×3 (04:14→21:03)
[2017-09-15 06:58] LABS: AUTOMATED NEUTROPHIL # 10.4 TH/MM3 (1.8-7.7); BASOPHIL # 0.1 TH/MM3 (0-0.2); BASOPHIL % 0.8 % (0.0-2.0); EOSINOPHIL # 0.1 TH/MM3 (0-0.4); EOSINOPHIL % 0.8 % (0.0-4.0); HEMATOCRIT 24.4 % (35.0-46.0); HEMOGLOBIN 7.8 GM/DL (11.6-15.3); LYMPH % 9.8 % (9.0-44.0); LYMPHOCYTE # 1.3 TH/MM3 (1.0-4.8); MEAN CELL VOLUME 73.4 FL (80.0-100.0); MEAN CORPUSCULAR HEMOGLOBIN 23.5 PG (27.0-34.0); MEAN PLATELET VOLUME 8.1 FL (7.0-11.0); MONO % 9.3 % (0.0-8.0); MONOCYTE # 1.2 TH/MM3 (0-0.9); NEUT % 79.3 % (16.0-70.0); PLATELET COUNT 376 TH/MM3 (150-450); RED BLOOD COUNT 3.32 MIL/MM3 (4.00-5.30); RED CELL DISTRIBUTION WIDTH 21.5 % (11.6-17.2); WHITE BLOOD COUNT 13.2 TH/MM3 (4.0-11.0)
[2017-09-15 06:59] LABS: INTERNATIONAL NORMALIZED RATIO 2.7 RATIO; PROTHROMBIN TIME - PATIENT 27.5 SEC (9.8-11.6)
[2017-09-15] MEDS: DOCUSATE SODIUM 50 MG/SENNA 8.6 MG TAB PO SCH ×2 (09:00→21:00)
[2017-09-15] MEDS: FUROSEMIDE 40 MG/4 ML VIAL IV PUSH SCH ×2 (09:49→17:59)
[2017-09-15] MEDS: SODIUM CHLORIDE 0.9% FLUSH 10 ML FLUSH IV FLUSH SCH ×2 (09:50→21:03)
[2017-09-15] MEDS: POTASSIUM CHLORIDE 20 MEQ CONTROLLED RELEASE TAB PO SCH ×2 (10:00→21:03)
--- NOTE | 2017-09-15 10:02 | HHI.PR ---
Subjective Remarks 36-year-old female with a history of IV drug use, previous endocarditis who presented to the emergency department on 08/31/2017 due to shortness of breath and leg swelling. She has bioprosthesis valves both aortic and tricuspid. She admitted that she injected herself 4 days prior to this hospitalization. She apparently completed IV antibiotics course in April and after that she was on doxycycline prophylaxis. She reports that she has not been taking her antibiotics doxycycline. Patient was initially managed in the ICU where she required pressors. 2D echo shows both aortic valve and tricuspid valve prosthesis endocarditis. Cardiothoracic surgery evaluated and determined that patient is not a good surgical candidate. During ICU stay, patient was found to have septic emboli as well. Hematology was consulted for recommendations regarding anticoagulation. Patient was started on argatroban bridging to warfarin. Nursing denies any deterioration since last night. Patient herself says that her legs are still painful despite double dosing of Lasix yesterday which she says she was urinating a lot. She does verbally affirm the gravity of her situation and her prognosis is poor since she is not a cardiothoracic surgery candidate. Objective Vital Signs Date Time Temp Pulse Resp B/P (MAP) Pulse Ox O2 Delivery O2 Flow Rate FiO2 09/15/17 08:00 98.4 110 18 101/63 (76) 94 09/15/17 04:00 Nasal Cannula 4.00 09/15/17 04:00 108 09/15/17 04:00 99.4 107 20 92/55 (67) 97 09/15/17 00:00 98.6 108 20 98/55 (69) 98 09/15/17 00:00 111 09/15/17 00:00 Nasal Cannula 4.00 09/14/17 21:54 96 Nasal Cannula 3.00 09/14/17 21:14 113 09/14/17 20:00 98.8 108 24 104/60 (75) 98 09/14/17 19:00 Nasal Cannula 4.00 09/14/17 16:17 105 09/14/17 16:00 Nasal Cannula 4.00 Humidified 09/14/17 16:00 98.8 103 22 90/55 (67) 100 09/14/17 12:00 Nasal Cannula 4.00 Humidified 09/14/17 12:00 98.0 97 18 104/67 (79) 99 I/O 09/14/17 09/14/17 09/14/17 09/15/17 09/15/17 09/15/17 06:59 14:59 22:59 06:59 14:59 22:59 Intake Total 720 ml 100 ml 540 ml Balance 720 ml 100 ml 540 ml Intake Oral 720 ml 240 ml IV Total 100 ml 300 ml # Voids 4 4 6 # Bowel Movements 0 3 0 Result Diagram: 09/15/17 0628 09/13/17 0350 Objective Remarks Clear lung sounds bilaterally, unlabored breathing, no cyanosis, on nasal cannula 4/6 ejection murmur severe lower extremity edema A/P Assessment and Plan Bioprosthetic aortic valve endocarditis Bioprosthetic tricuspid valve endocarditis Bacteremia with viridans species septic pulm embolism Cerebritis -ampicillin, vanc, and gentamicin; ID following Pulmonary hypertension Acute exacerbation of diastolic congestive heart failure with preserved left ventricular ejection fraction -continue Lasix to 40 BID; I and Os; bmp pending occlusion of left superficial femoral artery -Continue on argatroban to warfarin bridge. heme/onco following, appreciate recs Hypokalemia -bmp ordered today; f/u Full code. Overall poor prognosis. Palliative care following. Discharge Planning Poor prognosis from cardiothoracic surgery standpoint. Only medical management is option for right now which may be futile. Palliative care following. continue antibiotics; bridging coumadin Iraj Kinsey MD Sep 15, 2017 10:02
[2017-09-15] MEDS: RESP: ALBUTEROL 2.5 MG/3 ML NEB (PRN) NEB ×3 (10:12→21:26)
--- NOTE | 2017-09-15 10:59 | PD.ONC.PN ---
Subjective Subjective Remarks Afebrile Patient reports she has significant shortness of breath that is somewhat relieved with breathing treatments No bleeding Objective Data Date Time Temp Pulse Resp B/P (MAP) Pulse Ox O2 Delivery O2 Flow Rate FiO2 09/15/17 10:13 99 Nasal Cannula 4.00 09/15/17 08:00 98.4 110 18 101/63 (76) 94 09/15/17 04:00 Nasal Cannula 4.00 09/15/17 04:00 108 09/15/17 04:00 99.4 107 20 92/55 (67) 97 09/15/17 00:00 98.6 108 20 98/55 (69) 98 09/15/17 00:00 111 09/15/17 00:00 Nasal Cannula 4.00 09/14/17 21:54 96 Nasal Cannula 3.00 09/14/17 21:14 113 09/14/17 20:00 98.8 108 24 104/60 (75) 98 09/14/17 19:00 Nasal Cannula 4.00 09/14/17 16:17 105 09/14/17 16:00 Nasal Cannula 4.00 Humidified 09/14/17 16:00 98.8 103 22 90/55 (67) 100 09/14/17 12:00 Nasal Cannula 4.00 Humidified 09/14/17 12:00 98.0 97 18 104/67 (79) 99 09/15/17 09/15/17 09/15/17 07:00 15:00 23:00 Intake Total 540 ml Balance 540 ml Result Diagram: 09/15/17 0628 09/13/17 0350 Laboratory Results Laboratory Tests Test 09/15/17 03:16 09/15/17 06:28 Vancomycin Level Trough 23.9 MCG/ML White Blood Count 13.2 TH/MM3 Red Blood Count 3.32 MIL/MM3 Hemoglobin 7.8 GM/DL Hematocrit 24.4 % Mean Corpuscular Volume 73.4 FL Mean Corpuscular Hemoglobin 23.5 PG Mean Corpuscular Hemoglobin Concent 32.0 % Red Cell Distribution Width 21.5 % Platelet Count 376 TH/MM3 Mean Platelet Volume 8.1 FL Neutrophils (%) (Auto) 79.3 % Lymphocytes (%) (Auto) 9.8 % Monocytes (%) (Auto) 9.3 % Eosinophils (%) (Auto) 0.8 % Basophils (%) (Auto) 0.8 % Neutrophils # (Auto) 10.4 TH/MM3 Lymphocytes # (Auto) 1.3 TH/MM3 Monocytes # (Auto) 1.2 TH/MM3 Eosinophils # (Auto) 0.1 TH/MM3 Basophils # (Auto) 0.1 TH/MM3 CBC Comment DIFF FINAL Differential Comment Prothrombin Time 27.5 SEC Prothromb Time International Ratio 2.7 RATIO Activated Partial Thromboplast Time 61.8 SEC Administered Medications Medications (Trade) Dose Ordered Sig/Jessica Route PRN Reason Start Time Stop Time Status Last Admin Dose Admin Sodium Chloride (NS Flush) 2 ml UNSCH PRN IV FLUSH FLUSH AFTER USING IV ACCESS 08/31/17 22:00 09/13/17 08:18 Sodium Chloride (NS Flush) 2 ml BID IV FLUSH 09/01/17 09:00 09/15/17 09:50 Acetaminophen (Tylenol) 650 mg Q6H PRN PO fever 08/31/17 22:00 09/10/17 16:02 Ondansetron HCl (Zofran Inj) 4 mg Q6H PRN IV PUSH NAUSEA OR VOMITING 08/31/17 22:00 09/13/17 21:22 Temazepam (Restoril) 15 mg HS PRN PO INSOMNIA 08/31/17 22:00 09/11/17 22:08 Chlorhexidine Gluconate (Chlorhexidine 2% Cloth) Taper DAILY@04 TOP 09/01/17 04:00 08/28/18 03:59 09/11/17 03:54 Senna/Docusate Sodium (Armida-Colace) 1 tab BID PO 09/01/17 09:00 09/13/17 21:21 Ampicillin Sodium 2000 mg/Sodium Chloride 100 ml @ 400 mls/hr Q6H IV 09/01/17 14:00 09/15/17 09:49 Loperamide HCl (Imodium) 2 mg Q4H PRN PO Diarrhea 09/03/17 16:15 09/05/17 14:32 Gentamicin Sulfate 100 mg/ Sodium Chloride 102.5 ml @ 100 mls/hr Q8H IV 09/03/17 21:00 09/15/17 04:14 Albuterol Sulfate (Albuterol Neb) 2.5 mg Q2HR NEB PRN NEB dyspnea 09/04/17 11:30 09/15/17 10:12 Argatroban 250 mg/ Sodium Chloride 252.5 ml @ 3.11 mls/hr TITRATE PRN IV aPTT < 50 09/06/17 19:15 09/14/17 18:32 Acetaminophen/ Hydrocodone Bitart ([place] 10-325 Mg) 1 tab Q4H PRN PO pain 1-5 09/09/17 15:00 09/14/17 05:02 Warfarin Sodium (Coumadin) 2 mg DAILY@16 PO 09/12/17 16:00 09/14/17 16:09 Hydromorphone HCl (Dilaudid Pf Inj) 1 mg Q4H PRN IV PUSH PAIN SCALE 6 TO 10 09/12/17 19:00 09/15/17 10:07 Potassium Chloride (KCl) 20 meq Q12HR PO 09/13/17 21:00 09/16/17 20:59 09/15/17 10:00 Furosemide (Lasix Inj) 40 mg BID@, IV PUSH 09/14/17 18:00 09/15/17 09:49 Objective Remarks GENERAL: Overweight younger female, sitting up in bed; she appears to doze off during exam SKIN: Warm and dry. HEAD: Normocephalic. EYES: No scleral icterus. No injection or drainage. NECK: No JVD or lymphadenopathy. CARDIOVASCULAR: Tachycardia; mild systolic murmur noted RESPIRATORY: Coarse lung sounds GASTROINTESTINAL: Abdomen soft, non-tender, nondistended. EXTREMITIES: Cyanosis to LLE; 4+ edema to bilateral lower extremities MUSCULOSKELETAL: Adequate muscle tone. NEUROLOGICAL: No obvious focal deficit. Awake, alert, and oriented x3. Assessment/Plan Problem List: (1) arterial blood clot Plan: --on Argatroban bridge to coumadin. -- no significant family history of thrombotic events to suggest hereditary antithrombin deficiency. suspect the antithrombin deficiency comes from her impaired production from her liver disease. --has chronic active hepatitis C. ++increased consumption from disseminated intravascular coagulation and acute illness, bacterial endocarditis. --Protein losses are also considered. She had mild proteinuria when she first was admitted. --Thrombin inactivates antithrombin. This would abrogate the effect of unfractionated heparin and low molecular weight heparin. (2) Acute septic pulmonary embolism ICD Codes: I26.90 - Septic pulmonary embolism without acute cor pulmonale Plan: -- The echocardiogram on 09/08 showed an estimated EF of 50-55%. ++severe tricuspid regurgitation with prosthesis in place. ++2 x 4 cm mobile vegetation was seen on the valve. The right atrium and right ventricle were normal in size and function (3) Microcytic anemia ICD Codes: D50.9 - Iron deficiency anemia, unspecified Plan: --likely d/t inflammation/infection. no evidence of bleeding or hemolysis. --B12/folate WNL --low iron and percent saturation. normal TIBC, elevated ferritin-->more consistent with anemia of chronic disease. --stool Hemoccult negative. --no evidence of hemolysis (4) Bacterial endocarditis ICD Codes: I33.0 - Acute and subacute infective endocarditis Status: Acute Plan: --on multiple antibiotics, ID following. Assessment 36y/o female admitted with recurrent endocarditis. hematology consulted for anticoagulation assistance. h/o Recurrent bacterial endocarditis, bacteremia, history of prosthetic aortic valve and subsequent redo, chronic active hepatitis C, intravenous drug use, microcytic anemia, consistent with iron deficiency, left lower extremity arterial event, bacterial endocarditis with viridans streptococcus. HPI (brought forward for continuity of care): history of IV drug abuse and recurrent endocarditis. had a relapse of her activity. has history of pulmonary embolism and infected valves. +significant congestive heart failure and presented to the emergency room on 08/31/2017, with sepsis. is followed by Infectious Disease for her endocarditis. previously received antibiotic therapy for enterococcus faecalis and staph aureus. There is questionable compliance. Her current blood culture from 08/31/2017, shows viridans streptococcus. Two out of two bottles were positive. She is on ampicillin and gentamicin. course is complicated by cold left lower extremity, evaluated by Vascular Surgery. 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 There is satisfactory calf runoff present. For this reason , conservative management with anticoagulation is continued. was placed on unfractionated heparin. Her heparin dose has been titrated from 1000 units/ hour to 2500 units/hour with a PTT remaining subtherapeutic. Her last PTT is 32 seconds from 09/06/2017, at 2 p.m. For this reason, Hematology/Oncology was consulted. Plan 1. Pharmacy dosing Coumadin 2. Continue argatroban to Coumadin bridge; once INR is greater than 4, will hold argatroban for 4 hours and recheck INR at that time. If INR is greater than 2 we will keep argatroban off. If it is less than 2 we will resume. 3. Monitor CBC, coags Attending Statement The exam, history, and the medical decision-making described in the above note were completed with the assistance of the mid-level provider. I reviewed and agree with the findings presented. I attest that I had a [id number] encounter with the patient on the same day, and personally performed and documented my assessment and findings in the medical record. No C/O INR <4. Increase Coumadin. Continue argatroban till INR >4 D/W Cyndi Ramos Sep 15, 2017 10:59 Raya Miller MD Sep 16, 2017 00:33
[2017-09-15] MEDS ORDERED: WARFARIN SOD 3 MG TAB PO SCH (16:00)
[2017-09-15] MEDS ORDERED: WARFARIN SOD 1 MG TAB PO ONE (18:15)
[2017-09-15 21:28] LABS: BICARBONATE 34.8 MEQ/L (21.0-32.0); CALCIUM 8.2 MG/DL (8.5-10.1); CREATININE 1.13 MG/DL (0.50-1.00)
[2017-09-16] VITALS (9 sets, daily range): BP systolic 90–100; BP diastolic 56–69; PULSE 75–128; RESP 17–22; TEMP 98.1–99.1; O2SAT 92–99
[2017-09-16] MEDS: AMPICILLIN INJ 2,000 MG in SODIUM CHLORIDE 0.9% INJ 100 ML IV SCH ×4 (01:07→21:06)
[2017-09-16] MEDS: RESP: ALBUTEROL 2.5 MG/3 ML NEB (PRN) NEB ×4 (01:14→20:38)
[2017-09-16] MEDS: CHLORHEXIDINE GLUCONATE 2 % 1 PACK (2 CLOTHS) TOP SCH (01:57)
[2017-09-16] MEDS: GENTAMICIN INJ 100 MG in SODIUM CHLORIDE 0.9% INJ 100 ML IV SCH (04:14)
[2017-09-16] MEDS: HYDROmorphone HCL PF 2 MG/ML VIAL IV PUSH PRN ×5 (04:42→21:04)
[2017-09-16 05:44] LABS: AUTOMATED NEUTROPHIL # 10.5 TH/MM3 (1.8-7.7); BASOPHIL # 0.1 TH/MM3 (0-0.2); BASOPHIL % 0.7 % (0.0-2.0); EOSINOPHIL # 0.1 TH/MM3 (0-0.4); EOSINOPHIL % 0.6 % (0.0-4.0); HEMATOCRIT 23.6 % (35.0-46.0); HEMOGLOBIN 7.7 GM/DL (11.6-15.3); LYMPH % 10.7 % (9.0-44.0); LYMPHOCYTE # 1.4 TH/MM3 (1.0-4.8); MEAN CELL VOLUME 73.1 FL (80.0-100.0); MEAN CORPUSCULAR HEMOGLOBIN 23.7 PG (27.0-34.0); MEAN CORPUSCULAR HGB CONC 32.5 % (32.0-36.0); MONO % 9.7 % (0.0-8.0); MONOCYTE # 1.3 TH/MM3 (0-0.9); NEUT % 78.3 % (16.0-70.0); PLATELET COUNT 366 TH/MM3 (150-450); RED BLOOD COUNT 3.23 MIL/MM3 (4.00-5.30); RED CELL DISTRIBUTION WIDTH 22.2 % (11.6-17.2); WHITE BLOOD COUNT 13.3 TH/MM3 (4.0-11.0)
[2017-09-16 05:46] LABS: INTERNATIONAL NORMALIZED RATIO 2.7 RATIO; PROTHROMBIN TIME - PATIENT 27.5 SEC (9.8-11.6)
[2017-09-16] MEDS: DOCUSATE SODIUM 50 MG/SENNA 8.6 MG TAB PO SCH ×2 (09:00→21:00)
[2017-09-16] MEDS: FUROSEMIDE 40 MG/4 ML VIAL IV PUSH SCH ×2 (09:12→16:52)
[2017-09-16] MEDS: POTASSIUM CHLORIDE 20 MEQ CONTROLLED RELEASE TAB PO SCH (09:13)
[2017-09-16] MEDS: SODIUM CHLORIDE 0.9% FLUSH 10 ML FLUSH IV FLUSH SCH ×2 (09:22→21:05)
--- NOTE | 2017-09-16 15:38 | HHI.PR ---
Subjective Remarks 36-year-old female with a history of IV drug use, previous endocarditis who presented to the emergency department on 08/31/2017 due to shortness of breath and leg swelling. She has bioprosthesis valves both aortic and tricuspid. She admitted that she injected herself 4 days prior to this hospitalization. She apparently completed IV antibiotics course in April and after that she was on doxycycline prophylaxis. She reports that she has not been taking her antibiotics doxycycline. Patient was initially managed in the ICU where she required pressors. 2D echo shows both aortic valve and tricuspid valve prosthesis endocarditis. Cardiothoracic surgery evaluated and determined that patient is not a good surgical candidate. During ICU stay, patient was found to have septic emboli as well. Hematology was consulted for recommendations regarding anticoagulation. Patient was started on argatroban bridging to warfarin. Nursing denies any deterioration since last night. Patient herself appears to be an unpleasant mood overall, not very social today. Patient does not think her edema in her legs has improved. When asked if she has given thought regarding comfort care, she asks and return if I was referring to hospice. I informed her hospice was just part of it, she was receptive to having another discussion with palliative care. Objective Vital Signs Date Time Temp Pulse Resp B/P (MAP) Pulse Ox O2 Delivery O2 Flow Rate FiO2 09/16/17 12:00 98.6 112 17 93/61 (72) 99 09/16/17 08:45 92 Nasal Cannula 3.00 09/16/17 08:00 98.9 115 18 100/57 (71) 97 09/16/17 04:00 99.1 128 22 92/69 (77) 92 09/16/17 04:00 Nasal Cannula 4.00 09/16/17 04:00 112 09/16/17 00:00 98.9 75 19 98/56 (70) 99 09/16/17 00:00 Nasal Cannula 4.00 09/16/17 00:00 118 09/15/17 21:29 98 Nasal Cannula 4.00 09/15/17 20:00 97.7 109 20 94/59 (71) 97 09/15/17 20:00 Nasal Cannula 4.00 09/15/17 20:00 115 09/15/17 16:00 98.7 107 18 96/59 (71) 99 09/15/17 16:00 115 09/15/17 16:00 Nasal Cannula 4.00 I/O 09/15/17 09/15/17 09/15/17 09/16/17 09/16/17 09/16/17 07:00 15:00 23:00 07:00 15:00 23:00 Intake Total 540 ml 202.5 ml 260.1 ml Balance 540 ml 202.5 ml 260.1 ml Intake Oral 240 ml IV Total 300 ml 202.5 ml 260.1 ml # Voids 6 # Bowel Movements 0 Result Diagram: 09/16/17 0455 09/15/172011 Objective Remarks Clear lung sounds bilaterally, unlabored breathing, no cyanosis, on nasal cannula / ejection murmur Unchanged severe lower extremity edema Sitting up at the side of the bed A/P Assessment and Plan Bioprosthetic aortic valve endocarditis Bioprosthetic tricuspid valve endocarditis Bacteremia with viridans species septic pulm embolism Cerebritis -ampicillin, vanc, and gentamicin; ID following Pulmonary hypertension Acute exacerbation of diastolic congestive heart failure with preserved left ventricular ejection fraction -continue Lasix to 40 BID; I and Os; bmp pending occlusion of left superficial femoral artery -Continue on argatroban to warfarin bridge. heme/onco following, appreciate recs Hypokalemia -monitor, replace as necessary Full code. Overall poor prognosis. Palliative care following. Discharge Planning Poor prognosis from cardiothoracic surgery standpoint. Only medical management is option for right now which may be futile. Patient willing to engage in more discussion regarding comfort care. Iraj Kinsey MD Sep 16, 2017 15:38
--- NOTE | 2017-09-16 15:41 | PD.ONC.PN ---
Subjective Subjective Remarks Afebrile Patient sitting up in chair at bedside in no distress She again appears to be falling asleep throughout exam No bleeding Objective Data Date Time Temp Pulse Resp B/P (MAP) Pulse Ox O2 Delivery O2 Flow Rate FiO2 09/16/17 12:00 98.6 112 17 93/61 (72) 99 09/16/17 08:45 92 Nasal Cannula 3.00 09/16/17 08:00 98.9 115 18 100/57 (71) 97 09/16/17 04:00 99.1 128 22 92/69 (77) 92 09/16/17 04:00 Nasal Cannula 4.00 09/16/17 04:00 112 09/16/17 00:00 98.9 75 19 98/56 (70) 99 09/16/17 00:00 Nasal Cannula 4.00 09/16/17 00:00 118 09/15/17 21:29 98 Nasal Cannula 4.00 09/15/17 20:00 97.7 109 20 94/59 (71) 97 09/15/17 20:00 Nasal Cannula 4.00 09/15/17 20:00 115 09/15/17 16:00 98.7 107 18 96/59 (71) 99 09/15/17 16:00 115 09/15/17 16:00 Nasal Cannula 4.00 09/16/17 09/16/17 09/16/17 07:00 15:00 23:00 Intake Total 260.1 ml Balance 260.1 ml Result Diagram: 09/16/17 0455 09/15/172011 Laboratory Results Laboratory Tests Test 09/15/17 20:12 09/16/17 04:55 Blood Urea Nitrogen 9 MG/DL Creatinine 1.13 MG/DL Random Glucose 86 MG/DL Calcium Level 8.2 MG/DL Sodium Level 133 MEQ/L Potassium Level 4.0 MEQ/L Chloride Level 88 MEQ/L Carbon Dioxide Level 34.8 MEQ/L Anion Gap 10 MEQ/L Estimat Glomerular Filtration Rate 55 ML/MIN White Blood Count 13.3 TH/MM3 Red Blood Count 3.23 MIL/MM3 Hemoglobin 7.7 GM/DL Hematocrit 23.6 % Mean Corpuscular Volume 73.1 FL Mean Corpuscular Hemoglobin 23.7 PG Mean Corpuscular Hemoglobin Concent 32.5 % Red Cell Distribution Width 22.2 % Platelet Count 366 TH/MM3 Mean Platelet Volume 8.0 FL Neutrophils (%) (Auto) 78.3 % Lymphocytes (%) (Auto) 10.7 % Monocytes (%) (Auto) 9.7 % Eosinophils (%) (Auto) 0.6 % Basophils (%) (Auto) 0.7 % Neutrophils # (Auto) 10.5 TH/MM3 Lymphocytes # (Auto) 1.4 TH/MM3 Monocytes # (Auto) 1.3 TH/MM3 Eosinophils # (Auto) 0.1 TH/MM3 Basophils # (Auto) 0.1 TH/MM3 CBC Comment DIFF FINAL Differential Comment Prothrombin Time 27.5 SEC Prothromb Time International Ratio 2.7 RATIO Activated Partial Thromboplast Time 65.3 SEC Administered Medications Medications (Trade) Dose Ordered Sig/Jessica Route PRN Reason Start Time Stop Time Status Last Admin Dose Admin Sodium Chloride (NS Flush) 2 ml UNSCH PRN IV FLUSH FLUSH AFTER USING IV ACCESS 08/31/17 22:00 09/13/17 08:18 Sodium Chloride (NS Flush) 2 ml BID IV FLUSH 09/01/17 09:00 09/16/17 09:22 Acetaminophen (Tylenol) 650 mg Q6H PRN PO fever 08/31/17 22:00 09/10/17 16:02 Ondansetron HCl (Zofran Inj) 4 mg Q6H PRN IV PUSH NAUSEA OR VOMITING 08/31/17 22:00 09/13/17 21:22 Temazepam (Restoril) 15 mg HS PRN PO INSOMNIA 08/31/17 22:00 09/11/17 22:08 Chlorhexidine Gluconate (Chlorhexidine 2% Cloth) Taper DAILY@04 TOP 09/01/17 04:00 08/28/18 03:59 09/11/17 03:54 Senna/Docusate Sodium (Arm[place]-Colace) 1 tab BID PO 09/01/17 09:00 09/13/17 21:21 Ampicillin Sodium 2000 mg/Sodium Chloride 100 ml @ 400 mls/hr Q6H IV 09/01/17 14:00 09/16/17 13:09 Loperamide HCl (Imodium) 2 mg Q4H PRN PO Diarrhea 09/03/17 16:15 09/05/17 14:32 Gentamicin Sulfate 100 mg/ Sodium Chloride 102.5 ml @ 100 mls/hr Q8H IV 09/03/17 21:00 Future Hold 09/16/17 04:14 Albuterol Sulfate (Albuterol Neb) 2.5 mg Q2HR NEB PRN NEB dyspnea 09/04/17 11:30 09/16/17 08:44 Argatroban 250 mg/ Sodium Chloride 252.5 ml @ 3.11 mls/hr TITRATE PRN IV aPTT < 50 09/06/17 19:15 09/14/17 18:32 Acetaminophen/ Hydrocodone Bitart ([place] 10-325 Mg) 1 tab Q4H PRN PO pain 1-5 09/09/17 15:00 09/14/17 05:02 Hydromorphone HCl (Dilaudid Pf Inj) 1 mg Q4H PRN IV PUSH PAIN SCALE 6 TO 10 09/12/17 19:00 09/16/17 13:07 Potassium Chloride (KCl) 20 meq Q12HR PO 09/13/17 21:00 09/16/17 20:59 09/16/17 09:13 Furosemide (Lasix Inj) 40 mg BID@ IV PUSH 09/14/17 18:00 09/16/17 09:12 Objective Remarks GENERAL: Overweight younger female sitting in chair at bedside in no obvious distress SKIN: Warm and dry. HEAD: Normocephalic. EYES: No scleral icterus. No injection or drainage. NECK: No JVD or lymphadenopathy. CARDIOVASCULAR: Tachycardia; mild systolic murmur noted RESPIRATORY: Coarse lung sounds GASTROINTESTINAL: Abdomen soft, non-tender, nondistended. EXTREMITIES: Cyanosis to LLE; 4+ edema to bilateral lower extremities MUSCULOSKELETAL: Adequate muscle tone. NEUROLOGICAL: No obvious focal deficit. Awake, somewhat lethargic and oriented x3. Assessment/Plan Problem List: (1) arterial blood clot Plan: --on Argatroban bridge to coumadin. -- no significant family history of thrombotic events to suggest hereditary antithrombin deficiency. suspect the antithrombin deficiency comes from her impaired production from her liver disease. --has chronic active hepatitis C. ++increased consumption from disseminated intravascular coagulation and acute illness, bacterial endocarditis. --Protein losses are also considered. She had mild proteinuria when she first was admitted. --Thrombin inactivates antithrombin. This would abrogate the effect of unfractionated heparin and low molecular weight heparin. (2) Acute septic pulmonary embolism ICD Codes: I26.90 - Septic pulmonary embolism without acute cor pulmonale Plan: -- The echocardiogram on 09/08 showed an estimated EF of 50-55%. ++severe tricuspid regurgitation with prosthesis in place. ++2 x 4 cm mobile vegetation was seen on the valve. The right atrium and right ventricle were normal in size and function (3) Microcytic anemia ICD Codes: D50.9 - Iron deficiency anemia, unspecified Plan: --likely d/t inflammation/infection. no evidence of bleeding or hemolysis. --B12/folate WNL --low iron and percent saturation. normal TIBC, elevated ferritin-->more consistent with anemia of chronic disease. --stool Hemoccult negative. --no evidence of hemolysis (4) Bacterial endocarditis ICD Codes: I33.0 - Acute and subacute infective endocarditis Status: Acute Plan: --on ampicillin, ID following. Assessment 36y/o female admitted with recurrent endocarditis. hematology consulted for anticoagulation assistance. h/o Recurrent bacterial endocarditis, bacteremia, history of prosthetic aortic valve and subsequent redo, chronic active hepatitis C, intravenous drug use, microcytic anemia, consistent with iron deficiency, left lower extremity arterial event, bacterial endocarditis with viridans streptococcus. HPI (brought forward for continuity of care): history of IV drug abuse and recurrent endocarditis. had a relapse of her activity. has history of pulmonary embolism and infected valves. +significant congestive heart failure and presented to the emergency room on 08/31/2017, with sepsis. is followed by Infectious Disease for her endocarditis. previously received antibiotic therapy for enterococcus faecalis and staph aureus. There is questionable compliance. Her current blood culture from 08/31/2017, shows viridans streptococcus. Two out of two bottles were positive. She is on ampicillin and gentamicin. course is complicated by cold left lower extremity, evaluated by Vascular Surgery. 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 There is satisfactory calf runoff present. For this reason , conservative management with anticoagulation is continued. was placed on unfractionated heparin. Her heparin dose has been titrated from 1000 units/ hour to 2500 units/hour with a PTT remaining subtherapeutic. Her last PTT is 32 seconds from 09/06/2017, at 2 p.m. For this reason, Hematology/Oncology was consulted. Plan 1. Increase Coumadin to 5 mg daily 2. Continue argatroban to Coumadin bridge; once INR is greater than 4, will hold argatroban for 4 hours and recheck INR at that time. If INR is greater than 2 we will keep argatroban off. If it is less than 2 we will resume. 3. Monitor CBC, coags Attending Statement The exam, history, and the medical decision-making described in the above note were completed with the assistance of the mid-level provider. I reviewed and agree with the findings presented. I attest that I had a [id number] encounter with the patient on the same day, and personally performed and documented my assessment and findings in the medical record. Feels little better today. No new c/o INR still <4. Increase coumadin and repeat INR in Am . stop argatroban when INR >4 Cyndi Carranza Sep 16, 2017 15:41 Raya Miller MD Sep 16, 2017 23:11
[2017-09-16] MEDS: WARFARIN SOD 5 MG TAB PO SCH (16:51)
[2017-09-17] VITALS (13 sets, daily range): BP systolic 88–110; BP diastolic 54–73; PULSE 103–117; RESP 16–20; TEMP 98–99; O2SAT 91–98
[2017-09-17] MEDS: AMPICILLIN INJ 2,000 MG in SODIUM CHLORIDE 0.9% INJ 100 ML IV SCH ×4 (01:02→22:03)
[2017-09-17] MEDS: HYDROmorphone HCL PF 2 MG/ML VIAL IV PUSH PRN ×6 (01:03→22:03)
[2017-09-17] MEDS: SODIUM CHLORIDE 0.9% FLUSH 10 ML FLUSH IV FLUSH PRN (01:03)
[2017-09-17] MEDS: CHLORHEXIDINE GLUCONATE 2 % 1 PACK (2 CLOTHS) TOP SCH (03:25)
[2017-09-17 07:08] LABS: AUTOMATED NEUTROPHIL # 11.4 TH/MM3 (1.8-7.7); BASOPHIL # 0.1 TH/MM3 (0-0.2); EOSINOPHIL # 0.1 TH/MM3 (0-0.4); EOSINOPHIL % 0.5 % (0.0-4.0); HEMOGLOBIN 8.2 GM/DL (11.6-15.3); LYMPHOCYTE # 1.1 TH/MM3 (1.0-4.8); MEAN CELL VOLUME 73.7 FL (80.0-100.0); MEAN CORPUSCULAR HGB CONC 32.6 % (32.0-36.0); MEAN PLATELET VOLUME 7.9 FL (7.0-11.0); MONO % 5.2 % (0.0-8.0); MONOCYTE # 0.7 TH/MM3 (0-0.9); NEUT % 85.3 % (16.0-70.0); PLATELET COUNT 329 TH/MM3 (150-450); WHITE BLOOD COUNT 13.4 TH/MM3 (4.0-11.0)
[2017-09-17 07:23] LABS: PROTHROMBIN TIME - PATIENT 30.1 SEC (9.8-11.6)
[2017-09-17 07:39] LABS: CREATININE 1.38 MG/DL (0.50-1.00)
[2017-09-17] MEDS: POTASSIUM CHLORIDE 25 MEQ EFFERVESCENT TAB PO SCH (08:57)
[2017-09-17] MEDS: POTASSIUM CHLOR 20 MEQ PREMIX 100 ML IV SCH ×2 (08:58→11:22)
[2017-09-17] MEDS: SODIUM CHLORIDE 0.9% FLUSH 10 ML FLUSH IV FLUSH SCH ×2 (08:58→22:03)
[2017-09-17] MEDS: DOCUSATE SODIUM 50 MG/SENNA 8.6 MG TAB PO SCH ×2 (08:58→21:00)
--- NOTE | 2017-09-17 10:59 | HHI.HCPN ---
Met with Ms. Segal in her room 1410. She is currently sitting up on her bedside , eating breakfast. Appropriate in conversation although does not engage much outside of simple answers to questions. She is able to make her needs known. When asked about her weekend she states "it was a weekend in the hospital, yesterday was my birthday". Offered emotional support. Chief complaint at this time is her breathing and pain when breathing. Reports the pain medication "is barely" working when administered. Will ask palliative care MD/[employer] OPERATOR to review medications and make recommendations/adjustments if able. Ms. Rowland presents with increased edema in lower extremities from last visit. She tells me she is almost able to tolerate that pain/discomfort but the breathing pain is her main concern. Gently reviewed with her comfort focused care, she inquires if this means hospice. At this time goals have not changed. While she does wish to get out of the hospital she desires to continue with trying to get her pain managed and continue with IV antibiotics. No change in CODE STATUS at this time. She is open to continued conversation with palliative care and medical team regarding comfort options but at this time her main concern is optimizing treatment. Discussed with RN and provided palliative care contact information. Palliative care will continue to follow throughout hospitalization. Tamara Ponce MSW, [employer] Sep 17, 2017 10:59
--- NOTE | 2017-09-17 11:47 | HHI.PR ---
Subjective Remarks 36-year-old female with a history of IV drug use, previous endocarditis who presented to the emergency department on 08/31/2017 due to shortness of breath and leg swelling. She has bioprosthesis valves both aortic and tricuspid. She admitted that she injected herself 4 days prior to this hospitalization. She apparently completed IV antibiotics course in April and after that she was on doxycycline prophylaxis. She reports that she has not been taking her antibiotics doxycycline. Patient was initially managed in the ICU where she required pressors. 2D echo shows both aortic valve and tricuspid valve prosthesis endocarditis. Cardiothoracic surgery evaluated and determined that patient is not a good surgical candidate. During ICU stay, patient was found to have septic emboli as well. Hematology was consulted for recommendations regarding anticoagulation. Patient was started on argatroban bridging to warfarin. Nursing denies any deterioration since last night. Patient has no new complaints. Thinks her edema is unchanged. Objective Vital Signs Date Time Temp Pulse Resp B/P (MAP) Pulse Ox O2 Delivery O2 Flow Rate FiO2 09/17/17 08:09 99.0 110 16 88/54 (65) 91 09/17/17 08:00 Nasal Cannula 3.00 09/17/17 08:00 112 09/17/17 04:53 98.7 117 18 110/73 (85) 97 09/17/17 04:05 113 09/17/17 00:58 98.2 111 18 97/69 (78) 98 09/17/17 00:58 Nasal Cannula 3.00 09/17/17 00:04 110 09/16/17 21:00 99.1 119 18 93/66 (75) 97 09/16/17 20:38 97 Nasal Cannula 2.00 09/16/17 19:44 114 09/16/17 16:00 102 09/16/17 16:00 98.1 108 17 90/64 (73) 96 09/16/17 12:00 98.6 112 17 93/61 (72) 99 09/16/17 12:00 112 I/O 09/16/17 09/16/17 09/16/17 09/17/17 09/17/17 09/17/17 07:00 15:00 23:00 07:00 15:00 23:00 Intake Total 260.1 ml 1820 ml Output Total 1300 ml 800 ml Balance 260.1 ml 520 ml -800 ml Intake Oral 1820 ml IV Total 260.1 ml Output Urine Total 1300 ml 800 ml # Voids 2 # Bowel Movements 2 Result Diagram: 09/17/1745 09/17/17644 Objective Remarks Clear lung sounds bilaterally, unlabored breathing, no cyanosis, on nasal cannula 4/6 ejection murmur Unchanged severe lower extremity edema Sitting up in chair today with legs propped up A/P Assessment and Plan 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 heme/onco following, appreciate recs Hypokalemia -Worsening likely due to Lasix, will replenish both IV and p.o. Checking magnesium, rule recheck in a.m. Full code. Overall poor prognosis. Palliative care following. Discharge Planning Poor prognosis from cardiothoracic surgery standpoint. Only medical management is option for right now which may be futile. Patient willing to engage in more discussion regarding comfort care. Iraj Kinsey MD Sep 17, 2017 11:47
--- NOTE | 2017-09-17 13:27 | HHI.HCPN ---
Reason for visit a. To assist with evaluation and management of symptoms including: chest pain, dyspnea. b. To assist medical decision maker(s) with: better understanding of current medical conditions; weighing benefits/burdens of medical treatment options; making medical treatment decisions. . Subjective/Interval History Patient seen to follow-up on comfort, goals. Seen earlier today by palliative social media marketer, patient indicating still with some pain with respiratory effort. Dr Kinsey Medical attending also requesting palliative follow up regarding pt possibly interested in hospice. Patient stable. H&H stable, hematology continues to follow. WBC 13, no significant change. Hypokalemia 2.4, repletion per medical attending. On 09/12 hydromorphone 2 mg IV every 4 hours prn was changed to 1 mg IV every 4 hours prn. Patient has required 3 doses so far today. On 09/16 required 5 doses, on required 6 doses, has been using it about every 4 hours. Last dose of oral [place] 10 mg 09/14. Patient seen in room no visitors present, she is placing order for lunch tray. She is flat and with very short replies/feedback. She indicates her appetite is "okay ", and she's been eating part of her meals but does not have a very big appetite. She denies nausea or vomiting. She endorses ongoing shortness of breath especially with activity. She endorses ongoing pain to her right chest through back region, up to an 8 out of 10 this worsens with any activity or cough, sneeze etc. She indicates it feels "much better" after use of prn hydromorphone but the pain increases again in the hour before she is due for next dose. She has not used the PO norco in a few days not sure if that was working for her pain. She feels the edema to BLE is about the same as it has been. Explore use of PRN PO med for pain to determine effectiveness, with IV med if ineffective. Explore current condition, goals. She is flat and with very short replies/ feedback. She indicates she is tired of being in the hospital, she just wants to be home. Explore that her conditions will require ongoing tx, likely indefinitely and that she could get sicker. She understands this. She tells me she has been on hospice in the past but wants to be able to decide if she wants treatment does not want to be "killed or let ". review of hospice services, philosophy for terminal/ES conditions and provision of comfort measures for EOL. She tells me she is thinking about alot of things and that she hasn't excluded any options, however does NOT want hospice at this time. She is tired of being in the hospital and wants to be well. . Ask if she has been in touch with her mother, she advises she has, and declines me to call her at this time. . Advance Directives Living Will: Never completed Health Care Surrogate: Never completed Durable Power of Software Integration Developer: Never completed Advance Directive Specifics Health Care Surrogate(s): No written advanced directives, patient refused to complete advanced directives during last admission. Patient a single. Children are juvenile. In the absence of written advanced directives, according to [place] statutes health care proxy decision-making falls to a parent. . Objective Vital Signs Date Time Temp Pulse Resp B/P (MAP) Pulse Ox O2 Delivery O2 Flow Rate FiO2 09/17/17 08:09 99.0 110 16 88/54 (65) 91 09/17/17 08:00 Nasal Cannula 3.00 09/17/17 08:00 112 09/17/17 04:53 98.7 117 18 110/73 (85) 97 09/17/17 04:05 113 09/17/17 00:58 98.2 111 18 97/69 (78) 98 09/17/17 00:58 Nasal Cannula 3.00 09/17/17 00:04 110 09/16/17 21:00 99.1 119 18 93/66 (75) 97 09/16/17 20:38 97 Nasal Cannula 2.00 09/16/17 19:44 114 09/16/17 16:00 102 09/16/17 16:00 98.1 108 17 90/64 (73) 96 Intake & Output 09/17/17 09/17/17 06:59 18:59 Intake Total 1000 ml Output Total 800 ml Balance 200 ml Intake Oral 1000 ml Output Urine Total 800 ml # Voids 2 # Bowel Movements 1 Physical Exam CONSTITUTIONAL/GENERAL: This is an adequately nourished patient, with mildly labored respirations, worsens with conversation. TUBES/LINES/DRAINS: NC, right IJ central line SKIN: Ecchymoses on extremities. + scabbing/lesion LLE- ankle, dorsal foot. Skin warm/dry. +3+ Edema BLE. CARDIOVASCULAR: systolic murmur noted. tachycardic. RESPIRATORY/CHEST: Frequent dry cough. Mildly dyspneic at rest, worsens with conversation, cough increases with conversation. Bilateral course breath sounds. GASTROINTESTINAL: Abdomen soft, rounded, non-tender, nondistended. No guarding. Bowel sounds present. GENITOURINARY: Without palpable bladder distension. Voids bedside as needed MUSCULOSKELETAL: Lower extremities 3+ edema. lesions noted Left foot and LE. NEUROLOGICAL: Awake, lethargic/flat. Oriented, some insight into hospitalization. Moves all 4 extremities. PSYCHIATRIC: Flat affect. . Diagnostic Tests Laboratory Laboratory Tests Test 09/15/17 03:16 09/15/17 06:28 09/15/17 20:12 09/16/17 04:55 Vancomycin Level Trough 23.9 MCG/ML (5.0-10.0) White Blood Count 13.2 TH/MM3 (4.0-11.0) 13.3 TH/MM3 (4.0-11.0) Red Blood Count 3.32 MIL/MM3 (4.00-5.30) 3.23 MIL/MM3 (4.00-5.30) Hemoglobin 7.8 GM/DL (11.6-15.3) 7.7 GM/DL (11.6-15.3) Hematocrit 24.4 % (35.0-46.0) 23.6 % (35.0-46.0) Mean Corpuscular Volume 73.4 FL (80.0-100.0) 73.1 FL (80.0-100.0) Mean Corpuscular Hemoglobin 23.5 PG (27.0-34.0) 23.7 PG (27.0-34.0) Mean Corpuscular Hemoglobin Concent 32.0 % (32.0-36.0) 32.5 % (32.0-36.0) Red Cell Distribution Width 21.5 % (11.6-17.2) 22.2 % (11.6-17.2) Platelet Count 376 TH/MM3 (150-450) 366 TH/MM3 (150-450) Mean Platelet Volume 8.1 FL (7.0-11.0) 8.0 FL (7.0-11.0) Neutrophils (%) (Auto) 79.3 % (16.0-70.0) 78.3 % (16.0-70.0) Lymphocytes (%) (Auto) 9.8 % (9.0-44.0) 10.7 % (9.0-44.0) Monocytes (%) (Auto) 9.3 % (0.0-8.0) 9.7 % (0.0-8.0) Eosinophils (%) (Auto) 0.8 % (0.0-4.0) 0.6 % (0.0-4.0) Basophils (%) (Auto) 0.8 % (0.0-2.0) 0.7 % (0.0-2.0) Neutrophils # (Auto) 10.4 TH/MM3 (1.8-7.7) 10.5 TH/MM3 (1.8-7.7) Lymphocytes # (Auto) 1.3 TH/MM3 (1.0-4.8) 1.4 TH/MM3 (1.0-4.8) Monocytes # (Auto) 1.2 TH/MM3 (0-0.9) 1.3 TH/MM3 (0-0.9) Eosinophils # (Auto) 0.1 TH/MM3 (0-0.4) 0.1 TH/MM3 (0-0.4) Basophils # (Auto) 0.1 TH/MM3 (0-0.2) 0.1 TH/MM3 (0-0.2) CBC Comment DIFF FINAL DIFF FINAL Differential Comment Prothrombin Time 27.5 SEC (9.8-11.6) 27.5 SEC (9.8-11.6) Prothromb Time International Ratio 2.7 RATIO 2.7 RATIO Activated Partial Thromboplast Time 61.8 SEC (24.3-30.1) 65.3 SEC (24.3-30.1) Blood Urea Nitrogen 9 MG/DL (7-18) Creatinine 1.13 MG/DL (0.50-1.00) Random Glucose 86 MG/DL (74-106) Calcium Level 8.2 MG/DL (8.5-10.1) Sodium Level 133 MEQ/L (136-145) Potassium Level 4.0 MEQ/L (3.5-5.1) Chloride Level 88 MEQ/L (98-107) Carbon Dioxide Level 34.8 MEQ/L (21.0-32.0) Anion Gap 10 MEQ/L (5-15) Estimat Glomerular Filtration Rate 55 ML/MIN (>89) Test 09/17/17 06:45 White Blood Count 13.4 TH/MM3 (4.0-11.0) Red Blood Count 3.40 MIL/MM3 (4.00-5.30) Hemoglobin 8.2 GM/DL (11.6-15.3) Hematocrit 25.0 % (35.0-46.0) Mean Corpuscular Volume 73.7 FL (80.0-100.0) Mean Corpuscular Hemoglobin 24.0 PG (27.0-34.0) Mean Corpuscular Hemoglobin Concent 32.6 % (32.0-36.0) Red Cell Distribution Width 22.0 % (11.6-17.2) Platelet Count 329 TH/MM3 (150-450) Mean Platelet Volume 7.9 FL (7.0-11.0) Neutrophils (%) (Auto) 85.3 % (16.0-70.0) Lymphocytes (%) (Auto) 8.0 % (9.0-44.0) Monocytes (%) (Auto) 5.2 % (0.0-8.0) Eosinophils (%) (Auto) 0.5 % (0.0-4.0) Basophils (%) (Auto) 1.0 % (0.0-2.0) Neutrophils # (Auto) 11.4 TH/MM3 (1.8-7.7) Lymphocytes # (Auto) 1.1 TH/MM3 (1.0-4.8) Monocytes # (Auto) 0.7 TH/MM3 (0-0.9) Eosinophils # (Auto) 0.1 TH/MM3 (0-0.4) Basophils # (Auto) 0.1 TH/MM3 (0-0.2) CBC Comment DIFF FINAL Differential Comment Prothrombin Time 30.1 SEC (9.8-11.6) Prothromb Time International Ratio 3.0 RATIO Activated Partial Thromboplast Time 67.9 SEC (24.3-30.1) Blood Urea Nitrogen 14 MG/DL (7-18) Creatinine 1.38 MG/DL (0.50-1.00) Random Glucose 177 MG/DL (74-106) Calcium Level 8.0 MG/DL (8.5-10.1) Sodium Level 131 MEQ/L (136-145) Potassium Level 2.4 MEQ/L (3.5-5.1) Chloride Level 85 MEQ/L (98-107) Carbon Dioxide Level 35.0 MEQ/L (21.0-32.0) Anion Gap 11 MEQ/L (5-15) Estimat Glomerular Filtration Rate 43 ML/MIN (>89) Magnesium Level 1.4 MG/DL (1.5-2.5) Result Diagram: 09/17/1745 09/17/17 0645 Microbiology Microbiology Date/Time Source Procedure Growth Status 09/09/17 05:50 Blood Peripheral Aerobic Blood Culture - Final NO GROWTH IN 5 DAYS Complete 09/09/17 05:50 Blood Peripheral Anaerobic Blood Culture - Final NO GROWTH IN 5 DAYS Complete 09/10/17 12:28 Stool Stool Stool Occult Blood (DONNY) - Final HEMOCCULT NEGATIVE Complete 09/08/17 21:50 Sputum Expectorated Sputum Gram Stain - Final Complete 09/08/17 21:50 Sputum Expectorated Sputum Sputum Culture - Final HEAVY GROWTH NORMAL RESPIRATORY PATRICIA Complete 08/31/17 22:30 Urine Suprapubic Urine Urine Culture - Final NO GROWTH IN 48 HOURS. Complete Procedures * 09/01/16 - right IJ central line placement Assessment and Plan Disease Oriented Problem List: (1) Prosthetic valve endocarditis (2) Congestive heart failure due to valvular disease (3) Polysubstance abuse (4) Acute septic pulmonary embolism (5) Acute kidney injury (6) CHF (congestive heart failure), NYHA class IV (7) Severe sepsis (8) Elevated troponin Symptom Scale: (1) Pain 0-10 Scale: 8 (2) Encephalopathy 0-10 Scale: Unable to quantify (3) Dyspnea 0-10 Scale: Unable to quantify Comment: On oxygen via nasal cannula (4) Depression Pertinent Non-Medical Issues Psychosocial: single. 2 juvenile children. Supported by her mother, step- father and boyfriend. Spiritual: Unknown. Legal: No known written advanced directives, family is going to try to find HCS paperwork they think pt previously completed. Patient a single. Children are juvenile. If no written advanced directives, according to [place] statutes health care proxy decision-making falls to a parent. Ethical issues impacting care: No known concerns at this time. . Important Contacts * Fany Nielsen, mother/ HCP: [phone] * Karsten Nielsen, stepfather: [phone] . Prognosis Patient has grim prognosis. . Code Status: Full Code Plan * Decision Maker: No written advanced directives, patient refused to complete advanced directives during last admission. Patient a single. Children are juvenile. In the absence of written advanced directives, according to [place] statutes health care proxy decision-making falls to her mother, Fany Nielsen. Karsten Nielsen is a step-father. Declines completion of written advance directives 09/10/17. * FULL CODE. * Patient desires continued aggressive care including FULL CODE. she is NOT interested in hospice at this time. * Will continue to provide periodic medical updates to patient's mother, Fany as needed, pt indicates she has been in touch w her 09/17/17. Palliative care number previously provided. * SYMPTOMS: * Pain: Potential sources include endocarditis, bedbound status, tubes etc. Patient with likely high tolerance given history of IV drug use, will monitor effective medications. Has been using hydromorphone 1 mg IV about every 4 hours for the last few days. (is ordered prn every 4 hours). Dose was decreased from 2mg to 1mg on 09/12/17. Has oral [place] 10 mg ordered last dose 09/14. d/w nursing-- nursing indicates that in between prn doses pt generally appears to be sleeping. discuss try PO PRN, and if ineffective use IV. Pt will become tolerant to opiate doses. * Dyspnea: secondary to endocarditis, pulmonary emboli. +cont to have ongoing dyspnea, worsens w activity. * Hallucination: patient thought she saw a bug on her arm during prior palliative care visit, though knew it "wasn't really there." none reported today. No medication recommendations at this time. * Depression: Patient with flat affect, voicing she is "tired of being sick, tired of being in the hospital ", + situational--recurrent hospitalizations. She is going to continue to be in acutely ill situation with ongoing treatment; may benefit from SSRI if amenable, as well as ongoing psychotherapy support which is not available in current acute care setting * Palliative care will continue to follow throughout hospital course to assist with symptom management and clarification of goals as needed. . Attestation To help prompt me to consider important information that might be impacting today's encounter and assessment, information from prior notes written by myself or my colleagues may have been "brought forward" into today's note. My signature on this note, however, is an attestation that I personally performed the exam, history, and/or decision-making noted today, and, unless otherwise indicated, the interactions with patient, family, and staff as well as the review of records all occurred today. I also attest that the listed assessment and stated plan reflect my best clinical judgment today based on the combination of historical information, prior notes, and today's exam/ interactions. When time spent is documented, it refers only to time spent today by the signer, or if indicated, combined time spent today by collaborating physician/nurse practitioner. Joy Ceja Sep 17, 2017 13:27
--- NOTE | 2017-09-17 13:30 | PD.ONC.PN ---
Subjective Subjective Remarks Afebrile overnight. No overnight events. Patient resting in room in nad. no complaints. Objective Data Date Time Temp Pulse Resp B/P (MAP) Pulse Ox O2 Delivery O2 Flow Rate FiO2 09/17/17 08:09 99.0 110 16 88/54 (65) 91 09/17/17 08:00 Nasal Cannula 3.00 09/17/17 08:00 112 09/17/17 04:53 98.7 117 18 110/73 (85) 97 09/17/17 04:05 113 09/17/17 00:58 98.2 111 18 97/69 (78) 98 09/17/17 00:58 Nasal Cannula 3.00 09/17/17 00:04 110 09/16/17 21:00 99.1 119 18 93/66 (75) 97 09/16/17 20:38 97 Nasal Cannula 2.00 09/16/17 19:44 114 09/16/17 16:00 102 09/16/17 16:00 98.1 108 17 90/64 (73) 96 09/17/17 09/17/17 09/17/17 07:00 15:00 23:00 Output Total 800 ml Balance -800 ml Result Diagram: 09/17/17 0645 09/17/17 0645 Laboratory Results Laboratory Tests Test 09/17/17 06:45 White Blood Count 13.4 TH/MM3 Red Blood Count 3.40 MIL/MM3 Hemoglobin 8.2 GM/DL Hematocrit 25.0 % Mean Corpuscular Volume 73.7 FL Mean Corpuscular Hemoglobin 24.0 PG Mean Corpuscular Hemoglobin Concent 32.6 % Red Cell Distribution Width 22.0 % Platelet Count 329 TH/MM3 Mean Platelet Volume 7.9 FL Neutrophils (%) (Auto) 85.3 % Lymphocytes (%) (Auto) 8.0 % Monocytes (%) (Auto) 5.2 % Eosinophils (%) (Auto) 0.5 % Basophils (%) (Auto) 1.0 % Neutrophils # (Auto) 11.4 TH/MM3 Lymphocytes # (Auto) 1.1 TH/MM3 Monocytes # (Auto) 0.7 TH/MM3 Eosinophils # (Auto) 0.1 TH/MM3 Basophils # (Auto) 0.1 TH/MM3 CBC Comment DIFF FINAL Differential Comment Prothrombin Time 30.1 SEC Prothromb Time International Ratio 3.0 RATIO Activated Partial Thromboplast Time 67.9 SEC Blood Urea Nitrogen 14 MG/DL Creatinine 1.38 MG/DL Random Glucose 177 MG/DL Calcium Level 8.0 MG/DL Sodium Level 131 MEQ/L Potassium Level 2.4 MEQ/L Chloride Level 85 MEQ/L Carbon Dioxide Level 35.0 MEQ/L Anion Gap 11 MEQ/L Estimat Glomerular Filtration Rate 43 ML/MIN Magnesium Level 1.4 MG/DL Administered Medications Medications (Trade) Dose Ordered Sig/Jesscia Route PRN Reason Start Time Stop Time Status Last Admin Dose Admin Sodium Chloride (NS Flush) 2 ml UNSCH PRN IV FLUSH FLUSH AFTER USING IV ACCESS 08/31/17 22:00 09/17/17 01:03 Sodium Chloride (NS Flush) 2 ml BID IV FLUSH 09/01/17 09:00 09/17/17 08:58 Acetaminophen (Tylenol) 650 mg Q6H PRN PO fever 08/31/17 22:00 09/10/17 16:02 Ondansetron HCl (Zofran Inj) 4 mg Q6H PRN IV PUSH NAUSEA OR VOMITING 08/31/17 22:00 09/13/17 21:22 Temazepam (Restoril) 15 mg HS PRN PO INSOMNIA 08/31/17 22:00 09/11/17 22:08 Chlorhexidine Gluconate (Chlorhexidine 2% Cloth) Taper DAILY@04 TOP 09/01/17 04:00 08/28/18 03:59 09/11/17 03:54 Senna/Docusate Sodium (Armida-Colace) 1 tab BID PO 09/01/17 09:00 09/13/17 21:21 Ampicillin Sodium 2000 mg/Sodium Chloride 100 ml @ 400 mls/hr Q6H IV 09/01/17 14:00 09/17/17 12:58 Loperamide HCl (Imodium) 2 mg Q4H PRN PO Diarrhea 09/03/17 16:15 09/05/17 14:32 Gentamicin Sulfate 100 mg/ Sodium Chloride 102.5 ml @ 100 mls/hr Q8H IV 09/03/17 21:00 Future Hold 09/16/17 04:14 Albuterol Sulfate (Albuterol Neb) 2.5 mg Q2HR NEB PRN NEB dyspnea 09/04/17 11:30 09/16/17 20:38 Argatroban 250 mg/ Sodium Chloride 252.5 ml @ 3.11 mls/hr TITRATE PRN IV aPTT < 50 09/06/17 19:15 09/14/17 18:32 Acetaminophen/ Hydrocodone Bitart ([place] 10-325 Mg) 1 tab Q4H PRN PO pain 1-5 09/09/17 15:00 09/14/17 05:02 Hydromorphone HCl (Dilaudid Pf Inj) 1 mg Q4H PRN IV PUSH PAIN SCALE 6 TO 10 09/12/17 19:00 09/17/17 13:01 Warfarin Sodium (Coumadin) 5 mg DAILY@1600 PO 09/16/17 16:00 09/16/17 16:51 Potassium Bicarb/ Potassium Chloride (K-Lyte Cl Eff) 25 meq DAILY PO 09/17/17 09:00 09/17/17 08:57 Objective Remarks GENERAL: chronically ill female sitting up in chair next to bed. dyspneic, but otherwise in nad. SKIN: Warm and dry. HEAD: Normocephalic. EYES: No injection or drainage. NECK: Supple, trachea midline. CARDIOVASCULAR: +S1, S2, tachy RESPIRATORY: scattered rhonchi. on O2 via NC GASTROINTESTINAL: Abdomen soft, non-tender, nondistended. EXTREMITIES: ble with 2+ pitting edema. +distal extremities are warm and well perfused. NEUROLOGICAL: awake, alert, normal speech. Assessment/Plan Problem List: (1) arterial blood clot Plan: --on Argatroban bridge to Coumadin. -- no significant family history of thrombotic events to suggest hereditary antithrombin deficiency. suspect the antithrombin deficiency comes from her impaired production from her liver disease. --has chronic active hepatitis C. ++increased consumption from disseminated intravascular coagulation and acute illness, bacterial endocarditis. --Protein losses are also considered. She had mild proteinuria when she first was admitted. --Thrombin inactivates antithrombin. This would abrogate the effect of unfractionated heparin and low molecular weight heparin. (2) Acute septic pulmonary embolism ICD Codes: I26.90 - Septic pulmonary embolism without acute cor pulmonale Plan: -- echocardiogram on 09/08 showed an estimated EF of 50-55%. ++severe tricuspid regurgitation with prosthesis in place. ++2 x 4 cm mobile vegetation was seen on the valve. The right atrium and right ventricle were normal in size and function (3) Microcytic anemia ICD Codes: D50.9 - Iron deficiency anemia, unspecified Plan: --likely d/t inflammation/infection. no evidence of bleeding or hemolysis. --B12/folate WNL --low iron and percent saturation. normal TIBC, elevated ferritin-->more consistent with anemia of chronic disease. --stool Hemoccult negative. --no evidence of hemolysis (4) Bacterial endocarditis ICD Codes: I33.0 - Acute and subacute infective endocarditis Status: Acute Plan: --on ampicillin, ID following. Assessment 36y/o female admitted with recurrent endocarditis. hematology consulted for anticoagulation assistance. h/o Recurrent bacterial endocarditis, bacteremia, history of prosthetic aortic valve and subsequent redo, chronic active hepatitis C, intravenous drug use, microcytic anemia, consistent with iron deficiency, left lower extremity arterial event, bacterial endocarditis with viridans streptococcus. HPI (brought forward for continuity of care): history of IV drug abuse and recurrent endocarditis. had a relapse of her activity. has history of pulmonary embolism and infected valves. +significant congestive heart failure and presented to the emergency room on 08/31/2017, with sepsis. is followed by Infectious Disease for her endocarditis. previously received antibiotic therapy for enterococcus faecalis and staph aureus. There is questionable compliance. Her current blood culture from 08/31/2017, shows viridans streptococcus. Two out of two bottles were positive. She is on ampicillin and gentamicin. course is complicated by cold left lower extremity, evaluated by Vascular Surgery. 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 There is satisfactory calf runoff present. For this reason , conservative management with anticoagulation is continued. was placed on unfractionated heparin. Her heparin dose has been titrated from 1000 units/ hour to 2500 units/hour with a PTT remaining subtherapeutic. Her last PTT is 32 seconds from 09/06/2017, at 2 p.m. For this reason, Hematology/Oncology was consulted. Plan 1. continue Coumadin at 5 mg daily 2. monitor INR daily. once INR is greater than 4, will hold argatroban for 4 hours and recheck INR at that time. If INR is greater than 2 we will keep argatroban off. If it is less than 2 we will resume. Attending Statement Agree with above. Case discussed. Jennifer Bailey Sep 17, 2017 13:30 Myra Silva MD Sep 17, 2017 19:02
[2017-09-17] MEDS: RESP: ALBUTEROL 2.5 MG/3 ML NEB (PRN) NEB ×2 (14:14→20:36)
[2017-09-17] MEDS: WARFARIN SOD 5 MG TAB PO SCH (17:24)
[2017-09-18] VITALS (11 sets, daily range): BP systolic 91–130; BP diastolic 54–75; PULSE 105–118; RESP 20; TEMP 98–99.7; O2SAT 92–100
[2017-09-18] MEDS: HYDROmorphone HCL PF 2 MG/ML VIAL IV PUSH PRN ×6 (01:34→21:34)
[2017-09-18] MEDS: AMPICILLIN INJ 2,000 MG in SODIUM CHLORIDE 0.9% INJ 100 ML IV SCH ×4 (01:35→21:05)
[2017-09-18] MEDS: CHLORHEXIDINE GLUCONATE 2 % 1 PACK (2 CLOTHS) TOP SCH (04:00)
[2017-09-18 06:18] LABS: AUTOMATED NEUTROPHIL # 10.9 TH/MM3 (1.8-7.7); BASOPHIL # 0.1 TH/MM3 (0-0.2); BASOPHIL % 0.8 % (0.0-2.0); EOSINOPHIL # 0.1 TH/MM3 (0-0.4); HEMATOCRIT 25.2 % (35.0-46.0); HEMOGLOBIN 8.2 GM/DL (11.6-15.3); LYMPH % 9.3 % (9.0-44.0); LYMPHOCYTE # 1.2 TH/MM3 (1.0-4.8); MEAN CORPUSCULAR HGB CONC 32.4 % (32.0-36.0); MEAN PLATELET VOLUME 8.1 FL (7.0-11.0); MONO % 6.4 % (0.0-8.0); MONOCYTE # 0.8 TH/MM3 (0-0.9); NEUT % 82.5 % (16.0-70.0); PLATELET COUNT 350 TH/MM3 (150-450); RED BLOOD COUNT 3.41 MIL/MM3 (4.00-5.30); RED CELL DISTRIBUTION WIDTH 22.1 % (11.6-17.2); WHITE BLOOD COUNT 13.2 TH/MM3 (4.0-11.0)
[2017-09-18 06:47] LABS: INTERNATIONAL NORMALIZED RATIO 3.7 RATIO; PROTHROMBIN TIME - PATIENT 37.7 SEC (9.8-11.6)
[2017-09-18] MEDS: POTASSIUM CHLORIDE 25 MEQ EFFERVESCENT TAB PO SCH ×2 (09:00→09:32)
[2017-09-18] MEDS: SODIUM CHLORIDE 0.9% FLUSH 10 ML FLUSH IV FLUSH SCH ×2 (09:32→21:06)
[2017-09-18] MEDS: DOCUSATE SODIUM 50 MG/SENNA 8.6 MG TAB PO SCH ×2 (09:33→21:00)
--- NOTE | 2017-09-18 11:25 | HHI.IDPN ---
Note Infectious Disease Note Patient states she feels okay but has a usual shortness of breath. Afebrile. Legs remain swollen. Denies chest pain. Not getting out of bed and ambulating. States that her legs hurt when she stands on them. 36-year-old white female who has a history of endocarditis and has been admitted several times for the same. The patient developed shortness of breath, fever and chills, and presented to the emergency department. The patient is noted to be actively using IV drugs. She has history of significant CHF from prior valvular heart disease related to endocarditis. She states that she started feeling short of breath about a week ago and the shortness of breath worsened. After she completed IV antibiotics in April she was put on doxycycline prophylaxis. She reports that she has not been taking the doxycycline. PAST MEDICAL HISTORY: Hepatitis C. IV drug use. prosthetic aortic valve replacement in 2010 and then redo aortic valve replacement in December 2015 ANTIBIOTICS: Ampicillin. Current Medications Medications (Trade) Dose Ordered Sig/Jessica Route PRN Reason Start Time Stop Time Status Last Admin Dose Admin Sodium Chloride (NS Flush) 2 ml UNSCH PRN IV FLUSH FLUSH AFTER USING IV ACCESS 08/31/17 22:00 09/17/17 01:03 Sodium Chloride (NS Flush) 2 ml BID IV FLUSH 09/01/17 09:00 09/18/17 09:32 Acetaminophen (Tylenol) 650 mg Q6H PRN PO fever 08/31/17 22:00 09/10/17 16:02 Ondansetron HCl (Zofran Inj) 4 mg Q6H PRN IV PUSH NAUSEA OR VOMITING 08/31/17 22:00 09/13/17 21:22 Temazepam (Restoril) 15 mg HS PRN PO INSOMNIA 08/31/17 22:00 09/11/17 22:08 Miscellaneous Information 1 Q361D XX 08/31/17 22:00 Chlorhexidine Gluconate (Chlorhexidine 2% Cloth) Taper DAILY@04 TOP 09/01/17 04:00 08/28/18 03:59 09/11/17 03:54 Chlorhexidine Gluconate (Chlorhexidine 2% Cloth) 3 pack UNSCH PRN TOP HYGIENIC CARE 08/31/17 22:00 Senna/Docusate Sodium (Armida-Colace) 1 tab BID PO 09/01/17 09:00 09/13/17 21:21 Magnesium Hydroxide (Milk Of Magnesia Liq) 30 ml Q12H PRN PO Mild constipation 08/31/17 22:00 Sennosides (Senokot) 17.2 mg Q12H PRN PO Moderate constipation 08/31/17 22:00 Bisacodyl (Dulcolax Supp) 10 mg DAILY PRN RECTAL SEVERE CONSITIPATION 08/31/17 22:00 Lactulose (Lactulose Liq) 30 ml DAILY PRN PO SEVERE CONSITIPATION 08/31/17 22:00 Ampicillin Sodium 2000 mg/Sodium Chloride 100 ml @ 400 mls/hr Q6H IV 09/01/17 14:00 09/18/17 09:32 Loperamide HCl (Imodium) 2 mg Q4H PRN PO Diarrhea 09/03/17 16:15 09/05/17 14:32 Albuterol Sulfate (Albuterol Neb) 2.5 mg Q2HR NEB PRN NEB dyspnea 09/04/17 11:30 09/17/17 20:36 Argatroban 250 mg/ Sodium Chloride 252.5 ml @ 3.11 mls/hr TITRATE PRN IV aPTT < 50 09/06/17 19:15 09/14/17 18:32 Acetaminophen/ Hydrocodone Bitart ([place] 10-325 Mg) 1 tab Q4H PRN PO pain 1-5 09/09/17 15:00 09/14/17 05:02 Hydromorphone HCl (Dilaudid Pf Inj) 1 mg Q4H PRN IV PUSH PAIN SCALE 6 TO 10 09/12/17 19:00 09/18/17 09:36 Info 1 UNSCH .XX 09/13/17 11:15 Pharmacy Profile Note 0 ml @ 0 mls/hr UNSCH OTHER 09/14/17 10:15 Warfarin Sodium (Coumadin) 5 mg DAILY@1600 PO 09/16/17 16:00 09/17/17 17:24 Potassium Bicarb/ Potassium Chloride (K-Lyte Cl Eff) 25 meq DAILY PO 09/17/17 09:00 09/17/17 08:57 SOCIAL HISTORY: Positive occasional alcohol. No tobacco. IV drug use in the form of Dilaudid, oxycodone. The patient also uses marijuana. OBJECTIVE: Vital Signs Date Time Temp Pulse Resp B/P (MAP) Pulse Ox O2 Delivery O2 Flow Rate FiO2 09/18/17 09:00 96 21 09/18/17 08:00 99.7 112 20 97/60 (72) 93 09/18/17 06:00 99.2 118 20 103/75 (84) 98 09/18/17 04:36 115 09/18/17 00:08 110 09/18/17 00:00 98.0 110 20 130/58 (82) 95 09/17/17 20:36 92 21 09/17/17 20:00 98.0 116 20 110/66 (81) 95 09/17/17 19:00 Nasal Cannula 3.00 09/17/17 16:09 98.1 103 18 94/66 (75) 98 09/17/17 16:00 116 09/17/17 14:17 93 Nasal Cannula 2.00 09/17/17 12:09 98.0 106 19 93/66 (75) 98 09/17/17 12:00 112 Laboratory Tests Test 09/17/17 06:45 09/18/17 05:48 White Blood Count 13.4 TH/MM3 13.2 TH/MM3 Red Blood Count 3.40 MIL/MM3 3.41 MIL/MM3 Hemoglobin 8.2 GM/DL 8.2 GM/DL Hematocrit 25.0 % 25.2 % Mean Corpuscular Volume 73.7 FL 74.0 FL Mean Corpuscular Hemoglobin 24.0 PG 24.0 PG Mean Corpuscular Hemoglobin Concent 32.6 % 32.4 % Red Cell Distribution Width 22.0 % 22.1 % Platelet Count 329 TH/MM3 350 TH/MM3 Mean Platelet Volume 7.9 FL 8.1 FL Neutrophils (%) (Auto) 85.3 % 82.5 % Lymphocytes (%) (Auto) 8.0 % 9.3 % Monocytes (%) (Auto) 5.2 % 6.4 % Eosinophils (%) (Auto) 0.5 % 1.0 % Basophils (%) (Auto) 1.0 % 0.8 % Neutrophils # (Auto) 11.4 TH/MM3 10.9 TH/MM3 Lymphocytes # (Auto) 1.1 TH/MM3 1.2 TH/MM3 Monocytes # (Auto) 0.7 TH/MM3 0.8 TH/MM3 Eosinophils # (Auto) 0.1 TH/MM3 0.1 TH/MM3 Basophils # (Auto) 0.1 TH/MM3 0.1 TH/MM3 CBC Comment DIFF FINAL DIFF FINAL Differential Comment Laboratory Tests Test 09/17/17 06:45 Blood Urea Nitrogen 14 MG/DL Creatinine 1.38 MG/DL Random Glucose 177 MG/DL Calcium Level 8.0 MG/DL Sodium Level 131 MEQ/L Potassium Level 2.4 MEQ/L Chloride Level 85 MEQ/L Carbon Dioxide Level 35.0 MEQ/L Anion Gap 11 MEQ/L Estimat Glomerular Filtration Rate 43 ML/MIN Magnesium Level 1.4 MG/DL IMAGING: Chest X-Ray 09/10/17 0600 Signed Impressions: Service Date/Time: Sunday, September 10, 2017 03:52 - CONCLUSION: There is a small to moderate size right pleural effusion with associated volume loss and/or airspace consolidation. The pleural effusion has increased from the prior examination. Adalid Galo MD Head CT 09/08/17 0000 Signed Impressions: Service Date/Time: Friday, September 08, 2017 10:22 - CONCLUSION: 1. Focal area of decreased density involving the right parietal lobe. As a new finding from the prior exam. This could relate to a small infarct. MRI of the brain with gadolinium suggested to further evaluate. 2. Small lacunar infarction involving the left centrum semiovale. Ananth Ponce Jr., MD CT Angiography 09/08/17 0000 Signed Impressions: Service Date/Time: Friday, September 08, 2017 10:28 - CONCLUSION: There extensive pulmonary emboli bilaterally. There is near complete cut off of the right lower lobe pulmonary artery. Prominent filling defects on the left as well. These findings were relayed to Dr. Dominguez immediately at the completion of the study. Scattered pulmonary infiltrates, small pleural effusion and extensive mediastinal lymphadenopathy as described above. Karsten Crowder MD Brain MRI 09/08/17 0000 Signed Impressions: Service Date/Time: Friday, September 08, 2017 18:04 - CONCLUSION: Deterioration in the appearance of the scan. At least 3 focal areas of abnormal contrast enhancement are present scattered to in both hemispheres. Given the history this most likely represents developing areas cerebritis. Exam is compromised by an uncooperative patient and motion artifact. These 2 factors make detection of other abnormalities such as cortical cephalitis and meningitis difficult to exclude. Cannot exclude hemorrhagic lesions as well. There is no mass effect evident. Geremias Mauricio MD Renal Ultrasound 09/01/17 0000 Signed Impressions: Service Date/Time: Friday, September 01, 2017 10:53 - CONCLUSION: 1. No evidence of hydronephrosis. 2. Thickening of the urinary bladder wall a 1.1 cm. 3. Prominent splenomegaly. Baldemar Pineda MD Chest X-Ray 09/01/17 0000 Signed Impressions: Service Date/Time: Friday, September 01, 2017 09:36 - CONCLUSION: Right internal jugular central line in place with the tip overlying the SVC. A pneumothorax is not seen. Adalid Haney MD Breast Ultrasound 09/01/17 0000 Signed Impressions: Service Date/Time: Friday, September 01, 2017 10:48 - CONCLUSION: Negative targeted right breast ultrasound examination. Adalid Haney MD Lower Extremity Ultrasound 08/31/17 0000 Signed Impressions: Service Date/Time: Thursday, August 31, 2017 21:22 - CONCLUSION: 1. No sonographic evidence for lower extremity DVT. 2. Incidental note of bilateral inguinal adenopathy with the largest on the right measuring 3.3 cm and the largest on the left measuring 2.6 cm. This finding is nonspecific but is typically reactive in etiology. Luis Leija MD PHYSICAL EXAMINATION GENERAL: No acute distress. HEENT: No icterus. Oropharynx moist mucosa, no lesions. Neck: Supple without adenopathy. Lungs: Coarse bilateral rhonchi. Heart: 5/6 blowing systolic murmur at the upper right sternal border. Abdomen: Bowel sounds present, soft, obese, nontender. Extremities: Diffuse 3+ edema of the lower extremities. Lesions at Left tibia distally and left foot and great toe are faded. blister at the left foot over the previous area of erythema. Toes 3 and 5 are no longer cyanotic. Purple lesion at the tuft of the left fifth toe is faded. Left leg warm. No calf tenderness. No nail hemorrhages. SKIN: no diffuse rash. Neuro: No gross focal findings. Psychiatric: calm and cooperative. IMPRESSION 1. Sepsis. Strep Viridans. 2. Tricuspid valve endocarditis. Large vegetation. Tricuspid regurgitation. Patient evaluated by cardiovascular surgery and felt not to be a surgical candidate. 3. Bacteremia. Strep viridans. Blood cultures have remained negative on follow-up. Last positive blood culture was on 08/31. 4. History of prosthetic aortic valve and so likely recurrent prosthetic valve endocarditis. 5. Cerebritis on MRI. Also has parietal infarct noted on CT scan of the brain. 6. Left renal cortical and pulmonary and lower extremity septic emboli. 7. Leukocytosis secondary to sepsis from showering of emboli from endocarditis. 8. Acute renal failure. Kidney function improved. She did appears to be more stable. However she continues to experience breathing difficulty. RECOMMENDATIONS 1. Continue Ampicillin intravenous. 2. Gentamicin discontinued because of renal function. 3. Monitor clinical status. 4. Patient encouraged to elevate her legs. 5. Continue to monitor the left leg lesions. Plan on intravenous antibiotics until October 12. Which will be 6 weeks after the last positive blood culture. After that she should continue with prophylactic oral antibiotics indefinitely. Continue to monitor her blood counts and renal function. Edmar Sloan MD Sep 18, 2017 11:25
--- NOTE | 2017-09-18 11:34 | PD.ONC.PN ---
Subjective Subjective Remarks Tmax 99.7 overnight. Patient resting in bed in nad. No complaints. tired of being in the hospital. Objective Data Date Time Temp Pulse Resp B/P (MAP) Pulse Ox O2 Delivery O2 Flow Rate FiO2 09/18/17 09:00 96 21 09/18/17 08:00 99.7 112 20 97/60 (72) 93 09/18/17 08:00 Nasal Cannula 3.00 09/18/17 08:00 109 09/18/17 06:00 99.2 118 20 103/75 (84) 98 09/18/17 04:36 115 09/18/17 00:08 110 09/18/17 00:00 98.0 110 20 130/58 (82) 95 09/17/17 20:36 92 21 09/17/17 20:00 98.0 116 20 110/66 (81) 95 09/17/17 19:00 Nasal Cannula 3.00 09/17/17 16:09 98.1 103 18 94/66 (75) 98 09/17/17 16:00 116 09/17/17 14:17 93 Nasal Cannula 2.00 09/17/17 12:09 98.0 106 19 93/66 (75) 98 09/17/17 12:00 112 09/18/17 09/18/17 09/18/17 07:00 15:00 23:00 Intake Total 100 ml Output Total 500 ml Balance -400 ml Result Diagram: 09/18/17 0548 09/17/17 0645 Laboratory Results Laboratory Tests Test 09/18/17 05:48 White Blood Count 13.2 TH/MM3 Red Blood Count 3.41 MIL/MM3 Hemoglobin 8.2 GM/DL Hematocrit 25.2 % Mean Corpuscular Volume 74.0 FL Mean Corpuscular Hemoglobin 24.0 PG Mean Corpuscular Hemoglobin Concent 32.4 % Red Cell Distribution Width 22.1 % Platelet Count 350 TH/MM3 Mean Platelet Volume 8.1 FL Neutrophils (%) (Auto) 82.5 % Lymphocytes (%) (Auto) 9.3 % Monocytes (%) (Auto) 6.4 % Eosinophils (%) (Auto) 1.0 % Basophils (%) (Auto) 0.8 % Neutrophils # (Auto) 10.9 TH/MM3 Lymphocytes # (Auto) 1.2 TH/MM3 Monocytes # (Auto) 0.8 TH/MM3 Eosinophils # (Auto) 0.1 TH/MM3 Basophils # (Auto) 0.1 TH/MM3 CBC Comment DIFF FINAL Differential Comment Prothrombin Time 37.7 SEC Prothromb Time International Ratio 3.7 RATIO Activated Partial Thromboplast Time 71.8 SEC Administered Medications Medications (Trade) Dose Ordered Sig/Jessica Route PRN Reason Start Time Stop Time Status Last Admin Dose Admin Sodium Chloride (NS Flush) 2 ml UNSCH PRN IV FLUSH FLUSH AFTER USING IV ACCESS 08/31/17 22:00 09/17/17 01:03 Sodium Chloride (NS Flush) 2 ml BID IV FLUSH 09/01/17 09:00 09/18/17 09:32 Acetaminophen (Tylenol) 650 mg Q6H PRN PO fever 08/31/17 22:00 09/10/17 16:02 Ondansetron HCl (Zofran Inj) 4 mg Q6H PRN IV PUSH NAUSEA OR VOMITING 08/31/17 22:00 09/13/17 21:22 Temazepam (Restoril) 15 mg HS PRN PO INSOMNIA 08/31/17 22:00 09/11/17 22:08 Chlorhexidine Gluconate (Chlorhexidine 2% Cloth) Taper DAILY@04 TOP 09/01/17 04:00 08/28/18 03:59 09/11/17 03:54 Senna/Docusate Sodium (Armida-Colace) 1 tab BID PO 09/01/17 09:00 09/13/17 21:21 Ampicillin Sodium 2000 mg/Sodium Chloride 100 ml @ 400 mls/hr Q6H IV 09/01/17 14:00 09/18/17 09:32 Loperamide HCl (Imodium) 2 mg Q4H PRN PO Diarrhea 09/03/17 16:15 09/05/17 14:32 Albuterol Sulfate (Albuterol Neb) 2.5 mg Q2HR NEB PRN NEB dyspnea 09/04/17 11:30 09/17/17 20:36 Argatroban 250 mg/ Sodium Chloride 252.5 ml @ 3.11 mls/hr TITRATE PRN IV aPTT < 50 09/06/17 19:15 09/14/17 18:32 Acetaminophen/ Hydrocodone Bitart ([place] 10-325 Mg) 1 tab Q4H PRN PO pain 1-5 09/09/17 15:00 09/14/17 05:02 Hydromorphone HCl (Dilaudid Pf Inj) 1 mg Q4H PRN IV PUSH PAIN SCALE 6 TO 10 09/12/17 19:00 09/18/17 09:36 Warfarin Sodium (Coumadin) 5 mg DAILY@1600 PO 09/16/17 16:00 09/17/17 17:24 Potassium Bicarb/ Potassium Chloride (K-Lyte Cl Eff) 25 meq DAILY PO 09/17/17 09:00 09/17/17 08:57 Objective Remarks GENERAL: chronically ill female lying in bed, appears tired, dyspneic, resigned. SKIN: Warm and dry. HEAD: Normocephalic. EYES: No injection or drainage. NECK: Supple, trachea midline. CARDIOVASCULAR: +S1, S2, tachy RESPIRATORY: scattered rhonchi. GASTROINTESTINAL: Abdomen soft, non-tender, nondistended. EXTREMITIES: NEUROLOGICAL: awake, alert, dyspneic speech. moving all extremities. Assessment/Plan Problem List: (1) arterial blood clot Plan: --on Argatroban bridge to Coumadin. -- no significant family history of thrombotic events to suggest hereditary antithrombin deficiency. suspect the antithrombin deficiency comes from her impaired production from her liver disease. --has chronic active hepatitis C. ++increased consumption from disseminated intravascular coagulation and acute illness, bacterial endocarditis. --Protein losses are also considered. She had mild proteinuria when she first was admitted. --Thrombin inactivates antithrombin. This would abrogate the effect of unfractionated heparin and low molecular weight heparin. (2) Acute septic pulmonary embolism ICD Codes: I26.90 - Septic pulmonary embolism without acute cor pulmonale Plan: -- echocardiogram on 09/08 showed an estimated EF of 50-55%. ++severe tricuspid regurgitation with prosthesis in place. ++2 x 4 cm mobile vegetation was seen on the valve. The right atrium and right ventricle were normal in size and function (3) Microcytic anemia ICD Codes: D50.9 - Iron deficiency anemia, unspecified Plan: --likely d/t inflammation/infection. no evidence of bleeding or hemolysis. --B12/folate WNL --low iron and percent saturation. normal TIBC, elevated ferritin-->more consistent with anemia of chronic disease. --stool Hemoccult negative. --no evidence of hemolysis (4) Bacterial endocarditis ICD Codes: I33.0 - Acute and subacute infective endocarditis Status: Acute Plan: --on ampicillin, ID following. Assessment 36y/o female admitted with recurrent endocarditis. hematology consulted for anticoagulation assistance. h/o Recurrent bacterial endocarditis, bacteremia, history of prosthetic aortic valve and subsequent redo, chronic active hepatitis C, intravenous drug use, microcytic anemia, consistent with iron deficiency, left lower extremity arterial event, bacterial endocarditis with viridans streptococcus. HPI (brought forward for continuity of care): history of IV drug abuse and recurrent endocarditis. had a relapse of her activity. has history of pulmonary embolism and infected valves. +significant congestive heart failure and presented to the emergency room on 08/31/2017, with sepsis. is followed by Infectious Disease for her endocarditis. previously received antibiotic therapy for enterococcus faecalis and staph aureus. There is questionable compliance. Her current blood culture from 08/31/2017, shows viridans streptococcus. Two out of two bottles were positive. She is on ampicillin and gentamicin. course is complicated by cold left lower extremity, evaluated by Vascular Surgery. 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 There is satisfactory calf runoff present. For this reason , conservative management with anticoagulation is continued. was placed on unfractionated heparin. Her heparin dose has been titrated from 1000 units/ hour to 2500 units/hour with a PTT remaining subtherapeutic. Her last PTT is 32 seconds from 09/06/2017, at 2 p.m. For this reason, Hematology/Oncology was consulted. Plan 1. continue coumadin 2. monitor INR. 3. once INR reaches greater than 4.0, will stop Argatroban, hold for four hours , then recheck INR. Attending Statement The exam, history, and the medical decision-making described in the above note were completed with the assistance of the mid-level provider. I reviewed and agree with the findings presented. I attest that I had a [id number] encounter with the patient on the same day, and personally performed and documented my assessment and findings in the medical record. Family at bedside. Discussed that INR on argatroban 3.7, almost therapeutic. Check pt/inr tomorrow, if still low <INR 4, will need to increase Coumadin dose. Monitor for bleeding. Noted BL leg swelling, c/o burning sensation in both legs. Discussed trial support hose for venous insufficiency. Jennifer Bailey Sep 18, 2017 11:34 Myra Silva MD Sep 18, 2017 19:18
[2017-09-18 12:19] LABS: BICARBONATE 35.3 MEQ/L (21.0-32.0); CALCIUM 8.3 MG/DL (8.5-10.1); CREATININE 1.26 MG/DL (0.50-1.00)
[2017-09-18] MEDS ORDERED: FUROSEMIDE 40 MG TAB PO ONE (13:30)
[2017-09-18] MEDS ORDERED: POTASSIUM CHLORIDE 10 MEQ CONTROLLED RELEASE TAB PO ONE (13:30)
--- NOTE | 2017-09-18 15:36 | HHI.PR ---
Subjective Remarks 36-year-old female with a history of IV drug use, previous endocarditis who presented to the emergency department on 08/31/2017 due to shortness of breath and leg swelling. She has bioprosthesis valves both aortic and tricuspid. She admitted that she injected herself 4 days prior to this hospitalization. She apparently completed IV antibiotics course in April and after that she was on doxycycline prophylaxis. She reports that she has not been taking her antibiotics doxycycline. Patient was initially managed in the ICU where she required pressors. 2D echo shows both aortic valve and tricuspid valve prosthesis endocarditis. Cardiothoracic surgery evaluated and determined that patient is not a good surgical candidate. During ICU stay, patient was found to have septic emboli as well. Hematology was consulted for recommendations regarding anticoagulation. Patient was started on argatroban bridging to warfarin. Nursing denies any deterioration since last night. Patient has no new complaints. Says her edema stable, not any worse. Objective Vital Signs Date Time Temp Pulse Resp B/P (MAP) Pulse Ox O2 Delivery O2 Flow Rate FiO2 09/18/17 12:00 98.7 105 20 91/61 (71) 98 09/18/17 12:00 106 09/18/17 09:00 96 21 09/18/17 08:00 99.7 112 20 97/60 (72) 93 09/18/17 08:00 Nasal Cannula 3.00 09/18/17 08:00 109 09/18/17 06:00 99.2 118 20 103/75 (84) 98 09/18/17 04:36 115 09/18/17 00:08 110 09/18/17 00:00 98.0 110 20 130/58 (82) 95 09/17/17 20:36 92 21 09/17/17 20:00 98.0 116 20 110/66 (81) 95 09/17/17 19:00 Nasal Cannula 3.00 09/17/17 16:09 98.1 103 18 94/66 (75) 98 09/17/17 16:00 116 I/O 09/17/17 09/17/17 09/17/17 09/18/17 09/18/17 09/18/17 07:00 15:00 23:00 07:00 15:00 23:00 Intake Total 520 ml 100 ml Output Total 800 ml 500 ml Balance -800 ml 520 ml -400 ml Intake Oral 520 ml 100 ml Output Urine Total 800 ml 500 ml # Voids 3 # Bowel Movements 0 1 Result Diagram: 09/18/17 0548 09/18/17 1127 Objective Remarks Clear lung sounds bilaterally, unlabored breathing, no cyanosis, on nasal cannula 4/6 ejection murmur Unchanged severe lower extremity edema Lying in bed today, family at bedside A/P Assessment and Plan Bioprosthetic aortic valve endocarditis Bioprosthetic tricuspid valve endocarditis Bacteremia with viridans species septic pulm embolism Cerebritis -ampicillin, vanc, and gentamicin; ID following Pulmonary hypertension Acute exacerbation of diastolic congestive heart failure with preserved left ventricular ejection fraction -P.o. Lasix occlusion of left superficial femoral artery -Continue on argatroban to warfarin bridge. heme/onco following, appreciate recs Hypokalemia - due to Lasix, will replenish AK I -Improving with p.o. Lasix as opposed to IV Full code. Overall poor prognosis. Palliative care following. Discharge Planning Poor prognosis from cardiothoracic surgery standpoint. Continue with medical management Iraj Kinsey MD Sep 18, 2017 15:36
[2017-09-18] MEDS: WARFARIN SOD 5 MG TAB PO SCH (17:36)
[2017-09-18] MEDS: RESP: ALBUTEROL 2.5 MG/3 ML NEB (PRN) NEB (19:32)
[2017-09-19] VITALS (10 sets, daily range): BP systolic 95–108; BP diastolic 67–80; PULSE 109–119; RESP 18–20; TEMP 97.9–98.6; O2SAT 92–97
[2017-09-19] MEDS: HYDROmorphone HCL PF 2 MG/ML VIAL IV PUSH PRN ×6 (01:36→22:34)
[2017-09-19] MEDS: AMPICILLIN INJ 2,000 MG in SODIUM CHLORIDE 0.9% INJ 100 ML IV SCH ×4 (01:36→21:06)
[2017-09-19] MEDS: CHLORHEXIDINE GLUCONATE 2 % 1 PACK (2 CLOTHS) TOP SCH (04:00)
[2017-09-19 06:08] LABS: BICARBONATE 32.9 MEQ/L (21.0-32.0); CALCIUM 7.7 MG/DL (8.5-10.1); CREATININE 1.29 MG/DL (0.50-1.00)
[2017-09-19] MEDS ORDERED: POTASSIUM CHLORIDE 10 MEQ CONTROLLED RELEASE TAB PO ONE (07:00)
[2017-09-19 07:10] LABS: INTERNATIONAL NORMALIZED RATIO 5.3 RATIO; PROTHROMBIN TIME - PATIENT 52.9 SEC (9.8-11.6)
[2017-09-19] MEDS: FUROSEMIDE 40 MG TAB PO SCH (08:49)
[2017-09-19] MEDS: SODIUM CHLORIDE 0.9% FLUSH 10 ML FLUSH IV FLUSH SCH ×2 (08:49→21:04)
[2017-09-19] MEDS: DOCUSATE SODIUM 50 MG/SENNA 8.6 MG TAB PO SCH ×2 (08:49→21:00)
[2017-09-19] MEDS ORDERED: POTASSIUM CHLORIDE 10 MEQ CONTROLLED RELEASE TAB PO SCH (09:00)
[2017-09-19] MEDS ORDERED: POTASSIUM CHLOR 20 MEQ PREMIX 100 ML IV ONE (09:45)
[2017-09-19] MEDS: POTASSIUM CHLORIDE 10 MEQ CONTROLLED RELEASE TAB PO SCH ×2 (11:03→21:04)
--- NOTE | 2017-09-19 11:26 | HHI.PR ---
Subjective Remarks 36-year-old female with a history of IV drug use, previous endocarditis who presented to the emergency department on 08/31/2017 due to shortness of breath and leg swelling. She has bioprosthesis valves both aortic and tricuspid. She admitted that she injected herself 4 days prior to this hospitalization. She apparently completed IV antibiotics course in April and after that she was on doxycycline prophylaxis. She reports that she has not been taking her antibiotics doxycycline. Patient was initially managed in the ICU where she required pressors. 2D echo shows both aortic valve and tricuspid valve prosthesis endocarditis. Cardiothoracic surgery evaluated and determined that patient is not a good surgical candidate. During ICU stay, patient was found to have septic emboli as well. Hematology was consulted for recommendations regarding anticoagulation. Patient was started on argatroban bridging to warfarin. Nursing denies any deterioration since last night. Patient has no new complaints. Says her shortness of breath and leg swelling about the same as yesterday. Objective Vital Signs Date Time Temp Pulse Resp B/P (MAP) Pulse Ox O2 Delivery O2 Flow Rate FiO2 09/19/17 08:00 98.3 114 20 97/71 (80) 92 09/19/17 04:00 97.9 109 20 102/71 (81) 94 09/19/17 04:00 115 09/19/17 00:00 97.9 110 20 102/75 (84) 96 09/19/17 00:00 112 09/18/17 20:00 98.8 109 20 101/65 (77) 100 09/18/17 19:53 110 09/18/17 19:34 92 Nasal Cannula 2.50 09/18/17 19:00 Nasal Cannula 3.00 09/18/17 16:00 107 09/18/17 16:00 98.7 106 20 96/54 (68) 95 09/18/17 12:00 98.7 105 20 91/61 (71) 98 09/18/17 12:00 106 I/O 09/18/17 09/18/17 09/18/17 09/19/17 09/19/17 09/19/17 07:00 15:00 23:00 07:00 15:00 23:00 Intake Total 100 ml 600 ml 200 ml Output Total 500 ml Balance -400 ml 600 ml 200 ml Intake Oral 100 ml 600 ml 200 ml Output Urine Total 500 ml # Voids 2 4 # Bowel Movements 1 2 Result Diagram: 09/18/17 0548 09/19/17 0506 Objective Remarks Clear lung sounds bilaterally, unlabored breathing, no cyanosis, on nasal cannula 10/12 ejection murmur Unchanged severe lower extremity edema Lying in bed today A/P Assessment and Plan 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 Lasix, intake and output occlusion of left superficial femoral artery -INR is now greater than 4, will stop her argatroban t continue warfarin per hematology, hematology following Hypokalemia - due to Lasix, will replenish, rechecking mg DUONG -Improving slowly, continue low dose lasix Full code. Discharge Planning Poor prognosis from cardiothoracic surgery standpoint. Continue with medical management per ID at this time. Abx until 10/12/17 per ID. Iraj Kinsey MD Sep 19, 2017 11:26
[2017-09-19] MEDS: RESP: ALBUTEROL 2.5 MG/3 ML NEB (PRN) NEB ×2 (14:21→21:26)
[2017-09-19 16:03] LABS: INTERNATIONAL NORMALIZED RATIO 5.3 RATIO; PROTHROMBIN TIME - PATIENT 52.9 SEC (9.8-11.6)
[2017-09-19] MEDS: WARFARIN SOD 5 MG TAB PO SCH (16:51)
--- NOTE | 2017-09-19 18:30 | PD.ONC.PN ---
Subjective Subjective Remarks "They put the socks on to get me out of bed" Poor appetite. Denies any bleeding. Objective Data Date Time Temp Pulse Resp B/P (MAP) Pulse Ox O2 Delivery O2 Flow Rate FiO2 09/19/17 16:00 98.3 117 20 108/80 (89) 95 09/19/17 14:24 96 Nasal Cannula 2.50 09/19/17 12:00 98.6 119 20 96/77 (83) 97 09/19/17 08:00 98.3 114 20 97/71 (80) 92 09/19/17 04:00 97.9 109 20 102/71 (81) 94 09/19/17 04:00 115 09/19/17 00:00 97.9 110 20 102/75 (84) 96 09/19/17 00:00 112 09/18/17 20:00 98.8 109 20 101/65 (77) 100 09/18/17 19:53 110 09/18/17 19:34 92 Nasal Cannula 2.50 09/18/17 19:00 Nasal Cannula 3.00 09/19/17 09/19/17 09/19/17 07:00 15:00 23:00 Intake Total 200 ml Balance 200 ml Result Diagram: 09/18/17 0548 09/19/17 0506 Laboratory Results Laboratory Tests Test 09/19/17 05:06 09/19/17 05:54 09/19/17 15:25 Blood Urea Nitrogen 16 MG/DL Creatinine 1.29 MG/DL Random Glucose 106 MG/DL Calcium Level 7.7 MG/DL Sodium Level 132 MEQ/L Potassium Level 2.7 MEQ/L Chloride Level 88 MEQ/L Carbon Dioxide Level 32.9 MEQ/L Anion Gap 11 MEQ/L Estimat Glomerular Filtration Rate 47 ML/MIN Magnesium Level 1.7 MG/DL Prothrombin Time 52.9 SEC 52.9 SEC Prothromb Time International Ratio 5.3 RATIO 5.3 RATIO Activated Partial Thromboplast Time 79.7 SEC 54.6 SEC Administered Medications Medications (Trade) Dose Ordered Sig/Jessica Route PRN Reason Start Time Stop Time Status Last Admin Dose Admin Sodium Chloride (NS Flush) 2 ml UNSCH PRN IV FLUSH FLUSH AFTER USING IV ACCESS 08/31/17 22:00 09/17/17 01:03 Sodium Chloride (NS Flush) 2 ml BID IV FLUSH 09/01/17 09:00 09/19/17 08:49 Acetaminophen (Tylenol) 650 mg Q6H PRN PO fever 08/31/17 22:00 09/10/17 16:02 Ondansetron HCl (Zofran Inj) 4 mg Q6H PRN IV PUSH NAUSEA OR VOMITING 08/31/17 22:00 09/13/17 21:22 Temazepam (Restoril) 15 mg HS PRN PO INSOMNIA 08/31/17 22:00 09/11/17 22:08 Chlorhexidine Gluconate (Chlorhexidine 2% Cloth) Taper DAILY@04 TOP 09/01/17 04:00 08/28/18 03:59 09/11/17 03:54 Senna/Docusate Sodium (Armida-Colace) 1 tab BID PO 09/01/17 09:00 09/19/17 08:49 Ampicillin Sodium 2000 mg/Sodium Chloride 100 ml @ 400 mls/hr Q6H IV 09/01/17 14:00 09/19/17 14:16 Loperamide HCl (Imodium) 2 mg Q4H PRN PO Diarrhea 09/03/17 16:15 09/05/17 14:32 Albuterol Sulfate (Albuterol Neb) 2.5 mg Q2HR NEB PRN NEB dyspnea 09/04/17 11:30 09/19/17 14:21 Acetaminophen/ Hydrocodone Bitart ([place] 10-325 Mg) 1 tab Q4H PRN PO pain 1-5 09/09/17 15:00 09/14/17 05:02 Hydromorphone HCl (Dilaudid Pf Inj) 1 mg Q4H PRN IV PUSH PAIN SCALE 6 TO 10 09/12/17 19:00 09/19/17 14:16 Warfarin Sodium (Coumadin) 5 mg DAILY@1600 PO 09/16/17 16:00 Future Hold 09/19/17 16:51 Furosemide (Lasix) 40 mg DAILY PO 09/19/17 09:00 09/19/17 08:49 Potassium Chloride (KCl) 60 meq Q12HR PO 09/19/17 09:45 09/19/17 11:03 Objective Remarks GENERAL: chronically tired appearing, sleepy female, sitting up HOB elevated. SKIN: Warm and dry. HEAD: Normocephalic. EYES: No injection or drainage. NECK: Supple, trachea midline. CARDIOVASCULAR: +S1, S2, tachy RESPIRATORY: scattered rhonchi. GASTROINTESTINAL: Abdomen soft, non-tender, nondistended. EXTREMITIES: Edema BL LE. NEUROLOGICAL: awake, alert, dyspneic speech. moving all extremities. Assessment/Plan Problem List: (1) arterial blood clot Plan: 09/19/17. INR >4.0, Argatroban stopped. PT/PTT checked off argatroban, noted prolonged PTT. Received Coumadin today. Monitor for bleeding. Check coag tomorrow. --on Argatroban bridge to Coumadin. -- no significant family history of thrombotic events to suggest hereditary antithrombin deficiency. suspect the antithrombin deficiency comes from her impaired production from her liver disease. --has chronic active hepatitis C. ++increased consumption from disseminated intravascular coagulation and acute illness, bacterial endocarditis. --Protein losses are also considered. She had mild proteinuria when she first was admitted. --Thrombin inactivates antithrombin. This would abrogate the effect of unfractionated heparin and low molecular weight heparin. (2) Acute septic pulmonary embolism ICD Codes: I26.90 - Septic pulmonary embolism without acute cor pulmonale Plan: 09/19/17. Cont anticoagulation and antibiotics. Noted surgery evaluation, no surgery offered. -- echocardiogram on 09/08 showed an estimated EF of 50-55%. ++severe tricuspid regurgitation with prosthesis in place. ++2 x 4 cm mobile vegetation was seen on the valve. The right atrium and right ventricle were normal in size and function (3) Microcytic anemia ICD Codes: D50.9 - Iron deficiency anemia, unspecified Plan: 09/19/17. Unable to exclude iron deficiency with microcytic anemia. Menstruation irregular. Monitor for now. --likely d/t inflammation/infection. no evidence of bleeding or hemolysis. --B12/folate WNL --low iron and percent saturation. normal TIBC, elevated ferritin-->more consistent with anemia of chronic disease. --stool Hemoccult negative. --no evidence of hemolysis (4) Bacterial endocarditis ICD Codes: I33.0 - Acute and subacute infective endocarditis Status: Acute Plan: 08/22/17. IVDA. Abx tx per ID. --on ampicillin, ID following. Assessment 36y/o female admitted with recurrent endocarditis. hematology consulted for anticoagulation assistance. h/o Recurrent bacterial endocarditis, bacteremia, history of prosthetic aortic valve and subsequent redo, chronic active hepatitis C, intravenous drug use, microcytic anemia, consistent with iron deficiency, left lower extremity arterial event, bacterial endocarditis with viridans streptococcus. HPI (brought forward for continuity of care): history of IV drug abuse and recurrent endocarditis. had a relapse of her activity. has history of pulmonary embolism and infected valves. +significant congestive heart failure and presented to the emergency room on 08/31/2017, with sepsis. is followed by Infectious Disease for her endocarditis. previously received antibiotic therapy for enterococcus faecalis and staph aureus. There is questionable compliance. Her current blood culture from 08/31/2017, shows viridans streptococcus. Two out of two bottles were positive. She is on ampicillin and gentamicin. course is complicated by cold left lower extremity, evaluated by Vascular Surgery. 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 There is satisfactory calf runoff present. For this reason , conservative management with anticoagulation is continued. was placed on unfractionated heparin. Her heparin dose has been titrated from 1000 units/ hour to 2500 units/hour with a PTT remaining subtherapeutic. Her last PTT is 32 seconds from 09/06/2017, at 2 p.m. For this reason, Hematology/Oncology was consulted. Plan 1. Hold Coumadin until coag in AM, anticipate need to decrease dose. 2. Stop Argatroban 3. Monitor for bleeding. Myra Silva MD Sep 19, 2017 18:30
[2017-09-20] VITALS (11 sets, daily range): BP systolic 95–142; BP diastolic 52–68; PULSE 93–116; RESP 18–22; TEMP 97.7–99.5; O2SAT 92–98
[2017-09-20] MEDS: AMPICILLIN INJ 2,000 MG in SODIUM CHLORIDE 0.9% INJ 100 ML IV SCH ×4 (02:00→20:50)
[2017-09-20] MEDS: HYDROmorphone HCL PF 2 MG/ML VIAL IV PUSH PRN ×6 (02:05→21:50)
[2017-09-20] MEDS: CHLORHEXIDINE GLUCONATE 2 % 1 PACK (2 CLOTHS) TOP SCH (04:00)
[2017-09-20] MEDS: RESP: ALBUTEROL 2.5 MG/3 ML NEB (PRN) NEB ×2 (06:12→20:25)
[2017-09-20 06:19] LABS: HEMATOCRIT 25.3 % (35.0-46.0); HEMOGLOBIN 8.2 GM/DL (11.6-15.3); MEAN CORPUSCULAR HEMOGLOBIN 24.1 PG (27.0-34.0); MEAN CORPUSCULAR HGB CONC 32.6 % (32.0-36.0); MEAN PLATELET VOLUME 8.1 FL (7.0-11.0); PLATELET COUNT 370 TH/MM3 (150-450); RED BLOOD COUNT 3.42 MIL/MM3 (4.00-5.30); RED CELL DISTRIBUTION WIDTH 22.3 % (11.6-17.2); WHITE BLOOD COUNT 14.8 TH/MM3 (4.0-11.0)
[2017-09-20 06:31] LABS: INTERNATIONAL NORMALIZED RATIO 3.8 RATIO; PROTHROMBIN TIME - PATIENT 38.6 SEC (9.8-11.6)
[2017-09-20 07:04] LABS: CALCIUM 8.8 MG/DL (8.5-10.1); CREATININE 1.54 MG/DL (0.50-1.00)
[2017-09-20] MEDS: POTASSIUM CHLORIDE 10 MEQ CONTROLLED RELEASE TAB PO SCH ×2 (08:52→20:50)
[2017-09-20] MEDS: FUROSEMIDE 40 MG TAB PO SCH (08:53)
[2017-09-20] MEDS: SODIUM CHLORIDE 0.9% FLUSH 10 ML FLUSH IV FLUSH SCH ×2 (08:53→20:51)
[2017-09-20] MEDS: DOCUSATE SODIUM 50 MG/SENNA 8.6 MG TAB PO SCH ×2 (09:00→20:52)
--- NOTE | 2017-09-20 11:18 | HHI.PR ---
Subjective Remarks 36-year-old female with a history of IV drug use, previous endocarditis who presented to the emergency department on 08/31/2017 due to shortness of breath and leg swelling. She has bioprosthesis valves both aortic and tricuspid. She admitted that she injected herself 4 days prior to this hospitalization. She apparently completed IV antibiotics course in April and after that she was on doxycycline prophylaxis. She reports that she has not been taking her antibiotics doxycycline. Patient was initially managed in the ICU where she required pressors. 2D echo shows both aortic valve and tricuspid valve prosthesis endocarditis. Cardiothoracic surgery evaluated and determined that patient is not a good surgical candidate. During ICU stay, patient was found to have septic emboli as well. Hematology was consulted for recommendations regarding anticoagulation. Patient was started on argatroban bridging to warfarin. Nursing denies any deterioration since last night. Patient has no new complaints. Says her shortness of breath unchanged since yesterday. Objective Vital Signs Date Time Temp Pulse Resp B/P (MAP) Pulse Ox O2 Delivery O2 Flow Rate FiO2 09/20/17 10:25 97 Nasal Cannula 3.00 09/20/17 08:00 98.2 114 22 95/60 (72) 92 09/20/17 04:00 99.5 113 20 98/52 (67) 97 09/20/17 04:00 116 09/20/17 04:00 Nasal Cannula 2.00 09/20/17 00:00 98.5 114 20 98/65 (76) 97 09/20/17 00:00 Nasal Cannula 2.00 09/20/17 00:00 111 09/19/17 21:34 96 Nasal Cannula 2.50 09/19/17 20:00 Nasal Cannula 2.00 09/19/17 20:00 110 09/19/17 20:00 98.3 113 18 95/67 (76) 92 09/19/17 19:19 20 09/19/17 16:00 98.3 117 20 108/80 (89) 95 09/19/17 15:57 119 09/19/17 14:24 96 Nasal Cannula 2.50 09/19/17 12:00 98.6 119 20 96/77 (83) 97 I/O 09/19/17 09/19/17 09/19/17 09/20/17 09/20/17 09/20/17 07:00 15:00 23:00 07:00 15:00 23:00 Intake Total 200 ml 480 ml 600 ml Balance 200 ml 480 ml 600 ml Intake Oral 200 ml 480 ml 400 ml IV Total 200 ml # Voids 4 3 # Bowel Movements 1 Result Diagram: 09/20/17 0553 09/20/17 0553 Objective Remarks Clear lung sounds bilaterally, unlabored breathing, on nasal cannula 10/12 ejection murmur Unchanged severe moderate to severe lower extremity edema Lying in bed today A/P Assessment and Plan Bioprosthetic aortic valve endocarditis Bioprosthetic tricuspid valve endocarditis Bacteremia with viridans species septic pulm embolism Cerebritis -per ID ampicillin, has remained afebrile Pulmonary hypertension Acute exacerbation of diastolic congestive heart failure with preserved left ventricular ejection fraction -P.o. Lasix, intake and output occlusion of left superficial femoral artery -heme managing coumadin/adjusting to maintain therapeutic levels Hypokalemia - due to Lasix, will replenish, rechecking mg DUONG -Improving slowly, continue low dose lasix Full code. Discharge Planning Poor prognosis from cardiothoracic surgery standpoint. Continue with medical management per ID at this time. Abx until 10/12/17 per ID. Iraj Kinsey MD Sep 20, 2017 11:18
--- NOTE | 2017-09-20 12:50 | PD.ONC.PN ---
Subjective Subjective Remarks Afebrile overnight. Late entry, patient seen at ~11AM. Patient fatigued and reports continued pain in feet and difficulty breathing. no bleeding. Objective Data Date Time Temp Pulse Resp B/P (MAP) Pulse Ox O2 Delivery O2 Flow Rate FiO2 09/20/17 10:25 97 Nasal Cannula 3.00 09/20/17 08:00 98.2 114 22 95/60 (72) 92 09/20/17 04:00 99.5 113 20 98/52 (67) 97 09/20/17 04:00 116 09/20/17 04:00 Nasal Cannula 2.00 09/20/17 00:00 98.5 114 20 98/65 (76) 97 09/20/17 00:00 Nasal Cannula 2.00 09/20/17 00:00 111 09/19/17 21:34 96 Nasal Cannula 2.50 09/19/17 20:00 Nasal Cannula 2.00 09/19/17 20:00 110 09/19/17 20:00 98.3 113 18 95/67 (76) 92 09/19/17 19:19 20 09/19/17 16:00 98.3 117 20 108/80 (89) 95 09/19/17 15:57 119 09/19/17 14:24 96 Nasal Cannula 2.50 09/20/17 09/20/17 09/20/17 07:00 15:00 23:00 Intake Total 600 ml Balance 600 ml Result Diagram: 09/20/17 0553 09/20/17 0553 Laboratory Results Laboratory Tests Test 09/19/17 15:25 09/20/17 05:53 Prothrombin Time 52.9 SEC 38.6 SEC Prothromb Time International Ratio 5.3 RATIO 3.8 RATIO Activated Partial Thromboplast Time 54.6 SEC 48.1 SEC White Blood Count 14.8 TH/MM3 Red Blood Count 3.42 MIL/MM3 Hemoglobin 8.2 GM/DL Hematocrit 25.3 % Mean Corpuscular Volume 74.0 FL Mean Corpuscular Hemoglobin 24.1 PG Mean Corpuscular Hemoglobin Concent 32.6 % Red Cell Distribution Width 22.3 % Platelet Count 370 TH/MM3 Mean Platelet Volume 8.1 FL Blood Urea Nitrogen 20 MG/DL Creatinine 1.54 MG/DL Random Glucose 122 MG/DL Calcium Level 8.8 MG/DL Sodium Level 129 MEQ/L Potassium Level 4.1 MEQ/L Chloride Level 91 MEQ/L Carbon Dioxide Level 28.0 MEQ/L Anion Gap 10 MEQ/L Estimat Glomerular Filtration Rate 38 ML/MIN Administered Medications Medications (Trade) Dose Ordered Sig/Jessica Route PRN Reason Start Time Stop Time Status Last Admin Dose Admin Sodium Chloride (NS Flush) 2 ml UNSCH PRN IV FLUSH FLUSH AFTER USING IV ACCESS 08/31/17 22:00 09/17/17 01:03 Sodium Chloride (NS Flush) 2 ml BID IV FLUSH 09/01/17 09:00 09/20/17 08:53 Acetaminophen (Tylenol) 650 mg Q6H PRN PO fever 08/31/17 22:00 09/10/17 16:02 Ondansetron HCl (Zofran Inj) 4 mg Q6H PRN IV PUSH NAUSEA OR VOMITING 08/31/17 22:00 09/13/17 21:22 Temazepam (Restoril) 15 mg HS PRN PO INSOMNIA 08/31/17 22:00 09/11/17 22:08 Chlorhexidine Gluconate (Chlorhexidine 2% Cloth) 3 pack Taper DAILY@04 TOP 09/01/17 04:00 08/28/18 03:59 09/11/17 03:54 Senna/Docusate Sodium (Armida-Colace) 1 tab BID PO 09/01/17 09:00 09/19/17 08:49 Ampicillin Sodium 2000 mg/Sodium Chloride 100 ml @ 400 mls/hr Q6H IV 09/01/17 14:00 09/20/17 08:53 Loperamide HCl (Imodium) 2 mg Q4H PRN PO Diarrhea 09/03/17 16:15 09/05/17 14:32 Albuterol Sulfate (Albuterol Neb) 2.5 mg Q2HR NEB PRN NEB dyspnea 09/04/17 11:30 09/20/17 06:12 Acetaminophen/ Hydrocodone Bitart ([place] 10-325 Mg) 1 tab Q4H PRN PO pain 1-5 09/09/17 15:00 09/14/17 05:02 Hydromorphone HCl (Dilaudid Pf Inj) 1 mg Q4H PRN IV PUSH PAIN SCALE 6 TO 10 09/12/17 19:00 09/20/17 10:13 Potassium Chloride (KCl) 60 meq Q12HR PO 09/19/17 09:45 09/20/17 08:52 Objective Remarks GENERAL: chronically ill female, upright in bed, dyspneic. SKIN: Warm and dry. HEAD: Normocephalic. EYES: No injection or drainage. NECK: Supple, trachea midline. CARDIOVASCULAR: +S1, S2, tachy RESPIRATORY: scattered rhonchi all lung [place]. GASTROINTESTINAL: Abdomen soft, non-tender, nondistended. EXTREMITIES: bilateral feet and edematous (3+), distal toes are warm and well perfused. NEUROLOGICAL: awake alert. no obvious focal deficit. Assessment/Plan Problem List: (1) arterial blood clot Plan: 09/20: INR =3.8. continue to hold coumadin until closer to 2.0-3.0 than resume at lower dose. will ask nurses to perform doppler on patient's pedal pulses q shift and document. 09/19/17. INR >4.0, Argatroban stopped. PT/PTT checked off argatroban, noted prolonged PTT. (2) Microcytic anemia ICD Codes: D50.9 - Iron deficiency anemia, unspecified Plan: 09/20: no transfusion needed today. monitor closely. --likely d/t inflammation/infection. no evidence of bleeding or hemolysis. --monitor and transfuse as needed. (3) Bacterial endocarditis ICD Codes: I33.0 - Acute and subacute infective endocarditis Status: Acute Plan: -on ampicillin, ID following. (4) Acute septic pulmonary embolism ICD Codes: I26.90 - Septic pulmonary embolism without acute cor pulmonale Plan: -- echocardiogram on 09/08 showed an estimated EF of 50-55%. ++severe tricuspid regurgitation with prosthesis in place. ++2 x 4 cm mobile vegetation was seen on the valve. The right atrium and right ventricle were normal in size and function Assessment 36y/o female admitted with recurrent endocarditis. hematology consulted for anticoagulation assistance. h/o Recurrent bacterial endocarditis, bacteremia, history of prosthetic aortic valve and subsequent redo, chronic active hepatitis C, intravenous drug use, microcytic anemia, consistent with iron deficiency, left lower extremity arterial event, bacterial endocarditis with viridans streptococcus. HPI (brought forward for continuity of care): history of IV drug abuse and recurrent endocarditis. had a relapse of her activity. has history of pulmonary embolism and infected valves. +significant congestive heart failure and presented to the emergency room on 08/31/2017, with sepsis. is followed by Infectious Disease for her endocarditis. previously received antibiotic therapy for enterococcus faecalis and staph aureus. There is questionable compliance. Her current blood culture from 08/31/2017, shows viridans streptococcus. Two out of two bottles were positive. She is on ampicillin and gentamicin. course is complicated by cold left lower extremity, evaluated by Vascular Surgery. 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 There is satisfactory calf runoff present. For this reason , conservative management with anticoagulation is continued. was placed on unfractionated heparin. Her heparin dose has been titrated from 1000 units/ hour to 2500 units/hour with a PTT remaining subtherapeutic. Her last PTT is 32 seconds from 09/06/2017, at 2 p.m. For this reason, Hematology/Oncology was consulted. Plan 1. decrease Coumadin today 2. monitor INR 3. serial pedal pulse checks/dopplers by nurses requested. Attending Statement The exam, history, and the medical decision-making described in the above note were completed with the assistance of the mid-level provider. I reviewed and agree with the findings presented. I attest that I had a [id number] encounter with the patient on the same day, and personally performed and documented my assessment and findings in the medical record. BL feet swelling. Difficult to palpate pulses. Requested doppler. INR 3.8, decrease Coumadin 3mg daily. No bleeding, off argatroban. Check pt/inr in AM. Jennifer Bailey Sep 20, 2017 12:50 Myra Silva MD Sep 20, 2017 20:03
--- NOTE | 2017-09-20 14:17 | HHI.HCPN ---
Met with Ms. Segal for ongoing palliative care support and assistance with symptom management. Ms. Segal is currently lying in bed watching television. She is awake, somewhat lethargic, able to make her needs known and fairly pleasant in conversation. She presents with flat affect and does not engage much in conversation as she becomes short of breath and exhibits increase in coughing. Ms. Segal reports the swelling in lower extremities continues to increase, pain continues to be an issue and at times medication is not as effective. She remains frustrated with hospital stay and wants to go home. Understands she needs to continue with IV antibiotics. Offered emotional support. Palliative care will continue to follow throughout hospitalization. Tamara Ponce, [employer] Sep 20, 2017 14:17
[2017-09-20] MEDS ORDERED: WARFARIN SOD 3 MG TAB PO SCH (16:00)
[2017-09-21] VITALS (13 sets, daily range): BP systolic 90–110; BP diastolic 57–69; PULSE 86–116; RESP 18–24; TEMP 96.4–99; O2SAT 93–99
[2017-09-21] MEDS: AMPICILLIN INJ 2,000 MG in SODIUM CHLORIDE 0.9% INJ 100 ML IV SCH ×4 (02:00→20:03)
[2017-09-21] MEDS: HYDROmorphone HCL PF 2 MG/ML VIAL IV PUSH PRN ×5 (03:30→20:02)
[2017-09-21] MEDS: CHLORHEXIDINE GLUCONATE 2 % 1 PACK (2 CLOTHS) TOP SCH (04:00)
[2017-09-21 07:10] LABS: BICARBONATE 30.5 MEQ/L (21.0-32.0); CALCIUM 8.2 MG/DL (8.5-10.1); CREATININE 1.7 MG/DL (0.50-1.00)
[2017-09-21] MEDS: SODIUM CHLORIDE 0.9% FLUSH 10 ML FLUSH IV FLUSH SCH ×2 (07:25→20:02)
[2017-09-21] MEDS: DOCUSATE SODIUM 50 MG/SENNA 8.6 MG TAB PO SCH ×2 (08:07→20:21)
[2017-09-21] MEDS: POTASSIUM CHLORIDE 10 MEQ CONTROLLED RELEASE TAB PO SCH ×2 (08:07→20:02)
[2017-09-21] MEDS ORDERED: FUROSEMIDE 20 MG TAB PO SCH (09:00)
[2017-09-21] MEDS ORDERED: SODIUM CHLOR 0.9% 250 ML INJ 250 ML IV ONE (11:00)
--- NOTE | 2017-09-21 11:47 | PD.ONC.PN ---
Subjective Subjective Remarks Afebrile overnight. Patient resting in bed. complaining of pain in the toes of her left feet. remains severely dyspneic. Objective Data Date Time Temp Pulse Resp B/P (MAP) Pulse Ox O2 Delivery O2 Flow Rate FiO2 09/21/17 08:47 98 Nasal Cannula 3.00 09/21/17 08:00 99.0 100 22 98/69 (79) 98 09/21/17 04:03 96.4 116 24 101/62 (75) 93 09/21/17 04:00 Room Air 09/21/17 04:00 111 09/21/17 00:04 97.3 112 24 99/69 (79) 93 09/21/17 00:00 112 09/21/17 00:00 Room Air 09/20/17 20:29 98 Nasal Cannula 3.00 09/20/17 20:00 106 09/20/17 20:00 Room Air 09/20/17 20:00 106 09/20/17 18:03 98.6 110 20 98/59 (72) 98 09/20/17 16:00 98.0 108 18 95/66 (76) 93 09/20/17 15:57 93 09/20/17 15:55 105 09/20/17 12:00 106 09/20/17 12:00 97.7 104 20 100/63 (75) 98 09/21/17 09/21/17 09/21/17 07:00 15:00 23:00 Intake Total 860 ml Balance 860 ml Result Diagram: 09/20/17 0553 09/21/17 0613 Laboratory Results Laboratory Tests Test 09/21/17 06:13 Activated Partial Thromboplast Time 55.9 SEC Blood Urea Nitrogen 23 MG/DL Creatinine 1.70 MG/DL Random Glucose 108 MG/DL Calcium Level 8.2 MG/DL Sodium Level 131 MEQ/L Potassium Level 4.4 MEQ/L Chloride Level 92 MEQ/L Carbon Dioxide Level 30.5 MEQ/L Anion Gap 9 MEQ/L Estimat Glomerular Filtration Rate 34 ML/MIN Administered Medications Medications (Trade) Dose Ordered Sig/Jessica Route PRN Reason Start Time Stop Time Status Last Admin Dose Admin Sodium Chloride (NS Flush) 2 ml UNSCH PRN IV FLUSH FLUSH AFTER USING IV ACCESS 08/31/17 22:00 09/17/17 01:03 Sodium Chloride (NS Flush) 2 ml BID IV FLUSH 09/01/17 09:00 09/21/17 07:25 Acetaminophen (Tylenol) 650 mg Q6H PRN PO fever 08/31/17 22:00 09/10/17 16:02 Ondansetron HCl (Zofran Inj) 4 mg Q6H PRN IV PUSH NAUSEA OR VOMITING 08/31/17 22:00 09/13/17 21:22 Temazepam (Restoril) 15 mg HS PRN PO INSOMNIA 08/31/17 22:00 09/11/17 22:08 Chlorhexidine Gluconate (Chlorhexidine 2% Cloth) 3 pack Taper DAILY@04 TOP 09/01/17 04:00 08/28/18 03:59 09/11/17 03:54 Senna/Docusate Sodium (Armida-Colace) 1 tab BID PO 09/01/17 09:00 09/21/17 08:07 Ampicillin Sodium 2000 mg/Sodium Chloride 100 ml @ 400 mls/hr Q6H IV 09/01/17 14:00 09/21/17 08:08 Loperamide HCl (Imodium) 2 mg Q4H PRN PO Diarrhea 09/03/17 16:15 09/05/17 14:32 Albuterol Sulfate (Albuterol Neb) 2.5 mg Q2HR NEB PRN NEB dyspnea 09/04/17 11:30 09/20/17 20:25 Acetaminophen/ Hydrocodone Bitart ([place] 10-325 Mg) 1 tab Q4H PRN PO pain 1-5 09/09/17 15:00 09/14/17 05:02 Hydromorphone HCl (Dilaudid Pf Inj) 1 mg Q4H PRN IV PUSH PAIN SCALE 6 TO 10 09/12/17 19:00 09/21/17 08:07 Potassium Chloride (KCl) 60 meq Q12HR PO 09/19/17 09:45 09/21/17 08:07 Warfarin Sodium (Coumadin) 3 mg DAILY@1600 PO 09/20/17 16:00 09/20/17 18:04 Sodium Chloride 250 ml @ 75 mls/hr BOLUS ONCE IV 09/21/17 11:00 09/21/17 14:19 09/21/17 11:39 Objective Remarks GENERAL: chronically ill female, sitting up in bed in nad. SKIN: Warm and dry. HEAD: Normocephalic. EYES: No injection or drainage. NECK: Supple, trachea midline. CARDIOVASCULAR: +S1, S2, tachy RESPIRATORY: scattered rhonchi all lung gust[place]. GASTROINTESTINAL: Abdomen soft, non-tender, nondistended. EXTREMITIES: 3+ edema bilaterally lower extremities. bilateral pedal pulses are present, both through palpation and doppler. NEUROLOGICAL: awake and alert. Assessment/Plan Problem List: (1) arterial blood clot Plan: 09/21: INR 3.9 today. hold coumadin. goal INR between 2.0-3.0 09/20: INR =3.8. continue to hold coumadin until closer to 2.0-3.0 than resume at lower dose. will ask nurses to perform doppler on patient's pedal pulses q shift and document. 09/19/17. INR >4.0, Argatroban stopped. PT/PTT checked off argatroban, noted prolonged PTT. (2) Microcytic anemia ICD Codes: D50.9 - Iron deficiency anemia, unspecified Plan: --likely d/t inflammation/infection. no evidence of bleeding or hemolysis. --monitor and transfuse as needed. (3) Bacterial endocarditis ICD Codes: I33.0 - Acute and subacute infective endocarditis Status: Acute Plan: -on ampicillin, ID following. (4) Acute septic pulmonary embolism ICD Codes: I26.90 - Septic pulmonary embolism without acute cor pulmonale Plan: -- echocardiogram on 09/08 showed an estimated EF of 50-55%. ++severe tricuspid regurgitation with prosthesis in place. ++2 x 4 cm mobile vegetation was seen on the valve. The right atrium and right ventricle were normal in size and function Assessment 36y/o female admitted with recurrent endocarditis. hematology consulted for anticoagulation assistance. h/o Recurrent bacterial endocarditis, bacteremia, history of prosthetic aortic valve and subsequent redo, chronic active hepatitis C, intravenous drug use, microcytic anemia, consistent with iron deficiency, left lower extremity arterial event, bacterial endocarditis with viridans streptococcus. HPI (brought forward for continuity of care): history of IV drug abuse and recurrent endocarditis. had a relapse of her activity. has history of pulmonary embolism and infected valves. +significant congestive heart failure and presented to the emergency room on 08/31/2017, with sepsis. is followed by Infectious Disease for her endocarditis. previously received antibiotic therapy for enterococcus faecalis and staph aureus. There is questionable compliance. Her current blood culture from 08/31/2017, shows viridans streptococcus. Two out of two bottles were positive. She is on ampicillin and gentamicin. course is complicated by cold left lower extremity, evaluated by Vascular Surgery. 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 There is satisfactory calf runoff present. For this reason , conservative management with anticoagulation is continued. was placed on unfractionated heparin. Her heparin dose has been titrated from 1000 units/ hour to 2500 units/hour with a PTT remaining subtherapeutic. Her last PTT is 32 seconds from 09/06/2017, at 2 p.m. For this reason, Hematology/Oncology was consulted. Plan 1. await CBC, hold coumadin 2. continue supportive care. Attending Statement The exam, history, and the medical decision-making described in the above note were completed with the assistance of the mid-level provider. I reviewed and agree with the findings presented. I attest that I had a [id number] encounter with the patient on the same day, and personally performed and documented my assessment and findings in the medical record. PT seen and examined. Any effort makes her tired and SOB, sitting up to eat dinner. LE swelling worse given dependent position of feet, however pulses were present. Titrate anticoagulation goal InR 2-3. 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 Suggest decrease dose of Coumadin rather than holding it completely. INR 3.9- no bleeding, eating well, noted PTT also prolonged ? contamination vs liver disease Coumadin decreased to 3mg yesterday, decrease further to 2mg today. Cont check coags. Jennifer Bailey Sep 21, 2017 11:47 Myra Silva MD Sep 21, 2017 18:38
--- NOTE | 2017-09-21 12:13 | HHI.IDPN ---
Note Infectious Disease Note Patient says she is okay. She looks drowsy. Still having shortness of breath. On nasal cannula. Afebrile. Denies chills. Legs remain markedly swollen. Renal function slow to improve. 36-year-old white female who has a history of endocarditis and has been admitted several times for the same. The patient developed shortness of breath, fever and chills, and presented to the emergency department. The patient is noted to be actively using IV drugs. She has history of significant CHF from prior valvular heart disease related to endocarditis. She states that she started feeling short of breath about a week ago and the shortness of breath worsened. After she completed IV antibiotics in April she was put on doxycycline prophylaxis. She reports that she has not been taking the doxycycline. PAST MEDICAL HISTORY: Hepatitis C. IV drug use. prosthetic aortic valve replacement in 2010 and then redo aortic valve replacement in December 2015 ANTIBIOTICS: Ampicillin. Current Medications Medications (Trade) Dose Ordered Sig/Jessica Route PRN Reason Start Time Stop Time Status Last Admin Dose Admin Sodium Chloride (NS Flush) 2 ml UNSCH PRN IV FLUSH FLUSH AFTER USING IV ACCESS 08/31/17 22:00 09/17/17 01:03 Sodium Chloride (NS Flush) 2 ml BID IV FLUSH 09/01/17 09:00 09/21/17 07:25 Acetaminophen (Tylenol) 650 mg Q6H PRN PO fever 08/31/17 22:00 09/10/17 16:02 Ondansetron HCl (Zofran Inj) 4 mg Q6H PRN IV PUSH NAUSEA OR VOMITING 08/31/17 22:00 09/13/17 21:22 Temazepam (Restoril) 15 mg HS PRN PO INSOMNIA 08/31/17 22:00 09/11/17 22:08 Miscellaneous Information 1 Q361D XX 08/31/17 22:00 Chlorhexidine Gluconate (Chlorhexidine 2% Cloth) 3 pack Taper DAILY@04 TOP 09/01/17 04:00 08/28/18 03:59 09/11/17 03:54 Chlorhexidine Gluconate (Chlorhexidine 2% Cloth) 3 pack UNSCH PRN TOP HYGIENIC CARE 08/31/17 22:00 Senna/Docusate Sodium (Armida-Colace) 1 tab BID PO 09/01/17 09:00 09/21/17 08:07 Magnesium Hydroxide (Milk Of Magnesia Liq) 30 ml Q12H PRN PO Mild constipation 08/31/17 22:00 Sennosides (Senokot) 17.2 mg Q12H PRN PO Moderate constipation 08/31/17 22:00 Bisacodyl (Dulcolax Supp) 10 mg DAILY PRN RECTAL SEVERE CONSITIPATION 08/31/17 22:00 Lactulose (Lactulose Liq) 30 ml DAILY PRN PO SEVERE CONSITIPATION 08/31/17 22:00 Ampicillin Sodium 2000 mg/Sodium Chloride 100 ml @ 400 mls/hr Q6H IV 09/01/17 14:00 09/21/17 08:08 Loperamide HCl (Imodium) 2 mg Q4H PRN PO Diarrhea 09/03/17 16:15 09/05/17 14:32 Albuterol Sulfate (Albuterol Neb) 2.5 mg Q2HR NEB PRN NEB dyspnea 09/04/17 11:30 09/20/17 20:25 Acetaminophen/ Hydrocodone Bitart ([place] 10-325 Mg) 1 tab Q4H PRN PO pain 1-5 09/09/17 15:00 09/14/17 05:02 Hydromorphone HCl (Dilaudid Pf Inj) 1 mg Q4H PRN IV PUSH PAIN SCALE 6 TO 10 09/12/17 19:00 09/21/17 08:07 Potassium Chloride (KCl) 60 meq Q12HR PO 09/19/17 09:45 09/21/17 08:07 Warfarin Sodium (Coumadin) 3 mg DAILY@1600 PO 09/20/17 16:00 09/20/17 18:04 Sodium Chloride 250 ml @ 75 mls/hr BOLUS ONCE IV 09/21/17 11:00 09/21/17 14:19 09/21/17 11:39 SOCIAL HISTORY: Positive occasional alcohol. No tobacco. IV drug use in the form of Dilaudid, oxycodone. The patient also uses marijuana. OBJECTIVE: Vital Signs Date Time Temp Pulse Resp B/P (MAP) Pulse Ox O2 Delivery O2 Flow Rate FiO2 09/21/17 08:47 98 Nasal Cannula 3.00 09/21/17 08:00 99.0 100 22 98/69 (79) 98 09/21/17 04:03 96.4 116 24 101/62 (75) 93 09/21/17 04:00 Room Air 09/21/17 04:00 111 09/21/17 00:04 97.3 112 24 99/69 (79) 93 09/21/17 00:00 112 09/21/17 00:00 Room Air 09/20/17 20:29 98 Nasal Cannula 3.00 09/20/17 20:00 106 09/20/17 20:00 Room Air 09/20/17 20:00 106 09/20/17 18:03 98.6 110 20 98/59 (72) 98 09/20/17 16:00 98.0 108 18 95/66 (76) 93 09/20/17 15:57 93 09/20/17 15:55 105 Laboratory Tests Test 09/20/17 05:53 White Blood Count 14.8 TH/MM3 Red Blood Count 3.42 MIL/MM3 Hemoglobin 8.2 GM/DL Hematocrit 25.3 % Mean Corpuscular Volume 74.0 FL Mean Corpuscular Hemoglobin 24.1 PG Mean Corpuscular Hemoglobin Concent 32.6 % Red Cell Distribution Width 22.3 % Platelet Count 370 TH/MM3 Mean Platelet Volume 8.1 FL Laboratory Tests Test 09/20/17 05:53 09/21/17 06:13 Blood Urea Nitrogen 20 MG/DL 23 MG/DL Creatinine 1.54 MG/DL 1.70 MG/DL Random Glucose 122 MG/DL 108 MG/DL Calcium Level 8.8 MG/DL 8.2 MG/DL Sodium Level 129 MEQ/L 131 MEQ/L Potassium Level 4.1 MEQ/L 4.4 MEQ/L Chloride Level 91 MEQ/L 92 MEQ/L Carbon Dioxide Level 28.0 MEQ/L 30.5 MEQ/L Anion Gap 10 MEQ/L 9 MEQ/L Estimat Glomerular Filtration Rate 38 ML/MIN 34 ML/MIN IMAGING: Chest X-Ray 09/10/17 0600 Signed Impressions: Service Date/Time: Sunday, September 10, 2017 03:52 - CONCLUSION: There is a small to moderate size right pleural effusion with associated volume loss and/or airspace consolidation. The pleural effusion has increased from the prior examination. Adalid Galo MD Head CT 09/08/17 0000 Signed Impressions: Service Date/Time: Friday, September 08, 2017 10:22 - CONCLUSION: 1. Focal area of decreased density involving the right parietal lobe. As a new finding from the prior exam. This could relate to a small infarct. MRI of the brain with gadolinium suggested to further evaluate. 2. Small lacunar infarction involving the left centrum semiovale. Ananth Ponce Jr., MD CT Angiography 09/08/17 0000 Signed Impressions: Service Date/Time: Friday, September 08, 2017 10:28 - CONCLUSION: There extensive pulmonary emboli bilaterally. There is near complete cut off of the right lower lobe pulmonary artery. Prominent filling defects on the left as well. These findings were relayed to Dr. Dominguez immediately at the completion of the study. Scattered pulmonary infiltrates, small pleural effusion and extensive mediastinal lymphadenopathy as described above. Karsten Crowder MD Brain MRI 09/08/17 0000 Signed Impressions: Service Date/Time: Friday, September 08, 2017 18:04 - CONCLUSION: Deterioration in the appearance of the scan. At least 3 focal areas of abnormal contrast enhancement are present scattered to in both hemispheres. Given the history this most likely represents developing areas cerebritis. Exam is compromised by an uncooperative patient and motion artifact. These 2 factors make detection of other abnormalities such as cortical cephalitis and meningitis difficult to exclude. Cannot exclude hemorrhagic lesions as well. There is no mass effect evident. Geremias Mauricio MD Renal Ultrasound 09/01/17 0000 Signed Impressions: Service Date/Time: Friday, September 01, 2017 10:53 - CONCLUSION: 1. No evidence of hydronephrosis. 2. Thickening of the urinary bladder wall a 1.1 cm. 3. Prominent splenomegaly. Baldemar Pineda MD Chest X-Ray 09/01/17 0000 Signed Impressions: Service Date/Time: Friday, September 01, 2017 09:36 - CONCLUSION: Right internal jugular central line in place with the tip overlying the SVC. A pneumothorax is not seen. Adalid Haney MD Breast Ultrasound 09/01/17 0000 Signed Impressions: Service Date/Time: Friday, September 01, 2017 10:48 - CONCLUSION: Negative targeted right breast ultrasound examination. Adalid Haney MD Lower Extremity Ultrasound 08/31/17 0000 Signed Impressions: Service Date/Time: Thursday, August 31, 2017 21:22 - CONCLUSION: 1. No sonographic evidence for lower extremity DVT. 2. Incidental note of bilateral inguinal adenopathy with the largest on the right measuring 3.3 cm and the largest on the left measuring 2.6 cm. This finding is nonspecific but is typically reactive in etiology. Luis Leija MD PHYSICAL EXAMINATION GENERAL: No acute distress. HEENT: No icterus. Oropharynx moist mucosa, no lesions. Neck: Supple without adenopathy. Lungs: Coarse bilateral rhonchi. Heart: 5/6 blowing systolic murmur at the upper right sternal border. Abdomen: Bowel sounds present, soft, obese, nontender. Extremities: Diffuse 3+ edema of the lower extremities. Lesions at Left tibia distally and left foot and great toe are faded. Toes 3 and 5 are no longer cyanotic. Purple lesion at the tuft of the left fifth toe is faded. No calf tenderness. No nail hemorrhages. SKIN: no diffuse rash. Warm and moist. Neuro: No gross focal findings. Psychiatric: calm and cooperative. IMPRESSION 1. Sepsis. Strep Viridans. 2. Tricuspid valve endocarditis. Large vegetation. Severe tricuspid regurgitation. Patient evaluated by cardiovascular surgery and felt not to be a surgical candidate. 3. Bacteremia. Strep viridans. Blood cultures have remained negative on follow-up. Last positive blood culture was on 08/31. 4. History of prosthetic aortic valve and so likely recurrent prosthetic valve endocarditis. 5. Cerebritis on MRI. Also has parietal infarct noted on CT scan of the brain. 6. Left renal cortical and pulmonary and lower extremity septic emboli. 7. Leukocytosis secondary to sepsis from showering of emboli from endocarditis. 8. Acute renal failure. Kidney function slow to improve. RECOMMENDATIONS 1. Continue Ampicillin intravenous. 2. Nephrology consult for the acute renal failure. 3. Monitor clinical status. 4. Patient encouraged to elevate her legs. 5. Obtain CXR. ?CHF. Plan on intravenous antibiotics until October 12. Which will be 6 weeks after the last positive blood culture. After that she should continue with prophylactic oral antibiotics indefinitely. Continue to monitor her blood counts and renal function. Edmar Sloan MD Sep 21, 2017 12:13
[2017-09-21 13:33] LABS: INTERNATIONAL NORMALIZED RATIO 3.9 RATIO; PROTHROMBIN TIME - PATIENT 39.6 SEC (9.8-11.6)
--- NOTE | 2017-09-21 14:31 | RADRPT ---
EXAM DATE/TIME: 09/21/2017 13:30 [facility] COMPARISON: CHEST SINGLE AP, September 10, 2017, 3:52. INDICATIONS : Congestive heart failure. MEDICAL HISTORY : Venous insufficiency. Cardiovascular disease. Congestive heart failure. Hepatitis C. SURGICAL HISTORY : AVR. ENCOUNTER: Subsequent ACUITY: 1 day PAIN SCORE: Non-responsive. LOCATION: Bilateral chest FINDINGS: Patchy opacity is noted within the right lung base consistent with probable pneumonia. The heart is e nlarged. Right internal jugular central line has its tip in the right atrium. No pneumothorax is note d. No pulmonary edema is noted. CONCLUSION: 1. Right basilar patchy discussed with probable pneumonia. 2. Cardiomegaly. Jerald Licona MD on September 21, 2017 at 14:28 Board Certified Radiologist. This report was verified electronically.
[2017-09-21] MEDS: RESP: ALBUTEROL 2.5 MG/3 ML NEB (PRN) NEB (16:48)
--- NOTE | 2017-09-21 17:08 | MB ---
cc: Mars Salinas MD DATE OF CONSULT: 09/21/2017 REASON FOR CONSULTATION: Acute kidney injury with elevated BUN and creatinine and edema. HISTORY OF PRESENT ILLNESS: This is a 37-year-old female with past medical history of IV drug abuse, history of hepatitis C, narcotic dependency, came to the hospital with complaint of shortness of breath and swelling. I was called to see the patient because of elevated BUN and creatinine. The patient has creatinine of 4.5 on admission which improved and it was staying in the range of 0.6-0.8 until 6 days ago, then it started going up again and now it is 1.7. The patient has increased swelling of the legs and the patient was diagnosed with endocarditis and she has blood culture positive for Strep viridans. Patient has been following with the ID and she was getting furosemide, which was stopped today this morning because of increased creatinine and she was on vancomycin and rifampicin. The last dose of vancomycin seems to be given possibly on 09/09/2017 or even later, but her level was high and the highest level we have was 25.8, which was on 09/09/2017 but on 09/15/2017 it was 23.9. The patient has been actively using IV drugs before she came to the hospital and noticed to have more swelling in her legs. She is complaining of generalized body pain. There is no nausea, vomiting. Denies any diarrhea. Her appetite is normal. PAST MEDICAL HISTORY: IV drug abuse, hepatitis C, narcotic dependency, history of bacterial endocarditis. PAST SURGICAL HISTORY: Left forearm surgery. REVIEW OF SYSTEMS: The patient has generalized weakness, feeling tired, has generalized body pain. Denies any headache. She occasionally has nausea. There is no vomiting. She has mild shortness of breath on exertion, complaining of generalized body swelling also more in the legs. No dysuria or hematuria. Did not notice any decrease in the urine output. There is no history of diarrhea. SOCIAL HISTORY: History of IV drug abuse and also use of marijuana. FAMILY HISTORY: Noncontributory. ALLERGIES: SHE HAS NO KNOWN DRUG ALLERGIES. MEDICATIONS: Currently she is on the following medications: Armida-Colace 1 tablet b.i.d. Potassium chloride 60 mEq q. 12 hours. Ampicillin 2 grams IV q. 6 hours. Zofran as needed. Restoril as needed. Lactulose as needed. Imodium as needed. PHYSICAL EXAMINATION: GENERAL: The patient is awake, alert. She is not in acute distress. VITAL SIGNS: Her last blood pressure was 101/58. Blood pressure is on the lower side with systolic in the 90s and sometimes in the 80s, temperature is 97.4, oxygen saturation on 3 liters nasal cannula is 94-98%. HEENT: Pupils are mid constricted. Nonicteric sclerae. Conjunctivae pale. NECK: Supple. JVD is not elevated. LUNGS: The patient has bilateral decreased air entry with scattered wheezing. HEART: S1, S2. Regular rhythm. ABDOMEN: Distended, soft lax. There is no tenderness. EXTREMITIES: She has bilateral 3+ edema with some superficial abrasions in both lower legs and foot. INVESTIGATIONS: WBC count is 14.8, hemoglobin 8.2, platelet count of 370, neutrophils 82.5%, eosinophils 1%. Sodium is 131, potassium 4.4, chloride 92, bicarbonate 30.5, BUN 23, creatinine 1.7, calcium 8.2. INR 3.9. Urinalysis showing protein of 30, but this was done on admission. Last vancomycin level was 23.9 on 09/15/2017. Initial culture was positive for Strep viridans but now the repeat ones are all negative. IMAGING STUDY: The patient has a CT angiogram done on 09/08/2017 which shows extensive pulmonary embolism bilaterally, pulmonary infiltrate and also effusion. MRI of the brain was done which shows 3 focal areas of abnormal contrast enhancement in both hemispheres. There is no mass effect, possibly cerebritis. Chest x-ray was done today and it shows right basilar patchy infiltrate, possible pneumonia, cardiomegaly. Last echocardiogram was done on 09/08/2017 which shows ejection fraction of 50-55%, severe tricuspid regurgitation, aortic prosthesis and prolapse and possible vegetation. ASSESSMENT AND PLAN: 1. Acute kidney injury. 2. Endocarditis. 3. Hyponatremia and hypokalemia. 4. Edema and anasarca. 5. History of hepatitis C. 6. Anemia. 7. Pulmonary embolism. The patient has acute kidney injury and developed edema. The edema is contributed to partly by the low albumin. The acute kidney injury differential diagnosis will be either ATN from the vancomycin toxicity or from the infection, but the possibility of interstitial nephritis or possibility of postinfectious glomerulonephritis. I will check the urine sodium and osmolality and also the urine for eosinophils and ultrasound of the kidneys. We will wait for some improvement in the renal function before some diuretics can be given. Also, I will check the complements, follow the urine output and the BUN and creatinine. Avoid any nephrotoxins. Thank you for the consultation. MD ZAINAB Short/SALMA , 04:29 PM , 05:07 PM
[2017-09-21 20:31] LABS: AUTOMATED NEUTROPHIL # 11.2 TH/MM3 (1.8-7.7); BASOPHIL # 0.2 TH/MM3 (0-0.2); BASOPHIL % 1.3 % (0.0-2.0); EOSINOPHIL # 0.4 TH/MM3 (0-0.4); EOSINOPHIL % 2.6 % (0.0-4.0); HEMATOCRIT 26.4 % (35.0-46.0); HEMOGLOBIN 8.3 GM/DL (11.6-15.3); LYMPH % 9.2 % (9.0-44.0); LYMPHOCYTE # 1.3 TH/MM3 (1.0-4.8); MEAN CELL VOLUME 75.2 FL (80.0-100.0); MEAN CORPUSCULAR HEMOGLOBIN 23.6 PG (27.0-34.0); MEAN CORPUSCULAR HGB CONC 31.4 % (32.0-36.0); MEAN PLATELET VOLUME 8.4 FL (7.0-11.0); MONO % 7.5 % (0.0-8.0); MONOCYTE # 1.1 TH/MM3 (0-0.9); NEUT % 79.4 % (16.0-70.0); PLATELET COUNT 349 TH/MM3 (150-450); RED BLOOD COUNT 3.51 MIL/MM3 (4.00-5.30); RED CELL DISTRIBUTION WIDTH 22.3 % (11.6-17.2); WHITE BLOOD COUNT 14.1 TH/MM3 (4.0-11.0)
[2017-09-22] VITALS (13 sets, daily range): BP systolic 90–138; BP diastolic 59–73; PULSE 100–112; RESP 20–22; TEMP 97.2–98.4; O2SAT 96–100
[2017-09-22] MEDS: HYDROmorphone HCL PF 2 MG/ML VIAL IV PUSH PRN ×6 (00:35→20:42)
[2017-09-22] MEDS: RESP: ALBUTEROL 2.5 MG/3 ML NEB (PRN) NEB ×3 (00:49→18:29)
[2017-09-22] MEDS: AMPICILLIN INJ 2,000 MG in SODIUM CHLORIDE 0.9% INJ 100 ML IV SCH ×4 (03:06→20:40)
[2017-09-22] MEDS: CHLORHEXIDINE GLUCONATE 2 % 1 PACK (2 CLOTHS) TOP SCH (03:17)
[2017-09-22 04:28] LABS: AUTOMATED NEUTROPHIL # 12.1 TH/MM3 (1.8-7.7); BASOPHIL # 0.2 TH/MM3 (0-0.2); BASOPHIL % 1.3 % (0.0-2.0); EOSINOPHIL # 0.3 TH/MM3 (0-0.4); EOSINOPHIL % 1.9 % (0.0-4.0); HEMATOCRIT 26.2 % (35.0-46.0); HEMOGLOBIN 8.3 GM/DL (11.6-15.3); LYMPH % 10.7 % (9.0-44.0); LYMPHOCYTE # 1.6 TH/MM3 (1.0-4.8); MEAN CELL VOLUME 75.4 FL (80.0-100.0); MEAN CORPUSCULAR HEMOGLOBIN 23.8 PG (27.0-34.0); MEAN CORPUSCULAR HGB CONC 31.5 % (32.0-36.0); MEAN PLATELET VOLUME 8.5 FL (7.0-11.0); MONO % 7.2 % (0.0-8.0); MONOCYTE # 1.1 TH/MM3 (0-0.9); NEUT % 78.9 % (16.0-70.0); PLATELET COUNT 364 TH/MM3 (150-450); RED BLOOD COUNT 3.48 MIL/MM3 (4.00-5.30); RED CELL DISTRIBUTION WIDTH 22.9 % (11.6-17.2); WHITE BLOOD COUNT 15.3 TH/MM3 (4.0-11.0)
[2017-09-22 04:42] LABS: INTERNATIONAL NORMALIZED RATIO 3.3 RATIO; PROTHROMBIN TIME - PATIENT 32.8 SEC (9.8-11.6)
[2017-09-22 05:05] LABS: BICARBONATE 26.6 MEQ/L (21.0-32.0); CALCIUM 8.3 MG/DL (8.5-10.1); CREATININE 1.52 MG/DL (0.50-1.00)
[2017-09-22 05:06] LABS: COMPLEMENT C4 24 MG/DL (10-40)
[2017-09-22 05:07] LABS: COMPLEMENT C3 118 MG/DL (90-180)
[2017-09-22] MEDS: SODIUM CHLORIDE 0.9% FLUSH 10 ML FLUSH IV FLUSH SCH ×2 (07:22→20:43)
[2017-09-22] MEDS: DOCUSATE SODIUM 50 MG/SENNA 8.6 MG TAB PO SCH ×2 (07:22→20:43)
[2017-09-22] MEDS: POTASSIUM CHLORIDE 10 MEQ CONTROLLED RELEASE TAB PO SCH ×2 (07:52→20:41)
[2017-09-22 08:51] LABS: BILIRUBIN, URINE NEG (NEG); BLOOD, URINE TRACE (NEG); GLUCOSE,URINE NEG (NEG); KETONE, URINE NEG (NEG); NITRITE,URINE NEG (NEG); PH, URINE 6.5 (5.0-8.5); SODIUM,RANDOM URINE 9 MEQ/L; SQUAMOUS EPITHELIAL CELL URINE 1 /hpf (0-5); TRANSITIONAL EPI CELLS, URINE <1 /hpf; URINE COLOR YELLOW (YELLW/STRAW); URINE LEUKOCYTE ESTERASE NEG (NEG)
[2017-09-22 09:34] LABS: OSMOLALITY,URINE 306 MOSM/KG (300-1300)
--- NOTE | 2017-09-22 14:46 | HHI.PR ---
Subjective Remarks Denies cp/sob. Afebrile Objective Vitals Vital Signs Date Time Temp Pulse Resp B/P (MAP) Pulse Ox O2 Delivery O2 Flow Rate FiO2 09/22/17 12:19 97 Nasal Cannula 3.00 09/22/17 12:00 97.7 108 20 90/66 (74) 99 09/22/17 08:00 98.0 111 20 138/64 (88) 96 09/22/17 04:00 98.1 109 20 93/65 (74) 100 09/22/17 03:46 112 09/22/17 00:50 96 Nasal Cannula 3.00 09/22/17 00:00 97.2 108 20 108/59 (75) 99 09/21/17 23:44 106 09/21/17 20:00 97.2 86 18 110/57 (74) 96 09/21/17 19:44 106 09/21/17 19:00 Nasal Cannula 2.00 09/21/17 16:48 97 Nasal Cannula 3.00 09/21/17 16:00 97.4 101 20 101/58 (72) 94 09/21/17 16:00 103 I/O 09/21/17 09/21/17 09/21/17 09/22/17 09/22/17 09/22/17 07:00 15:00 23:00 07:00 15:00 23:00 Intake Total 860 ml 350 ml 820 ml 820 ml 100 ml Balance 860 ml 350 ml 820 ml 820 ml 100 ml Intake Oral 760 ml 720 ml 720 ml IV Total 100 ml 350 ml 100 ml 100 ml 100 ml # Voids 2 5 3 # Bowel Movements 1 1 Result Diagram: 09/22/17 0402 09/22/17 0402 Imaging Last Impressions Chest X-Ray 09/21/17 0000 Signed Impressions: Service Date/Time: Thursday, September 21, 2017 13:30 - CONCLUSION: 1. Right basilar patchy discussed with probable pneumonia. 2. Cardiomegaly. Jerald Licona MD Head CT 09/08/17 0000 Signed Impressions: Service Date/Time: Friday, September 08, 2017 10:22 - CONCLUSION: 1. Focal area of decreased density involving the right parietal lobe. As a new finding from the prior exam. This could relate to a small infarct. MRI of the brain with gadolinium suggested to further evaluate. 2. Small lacunar infarction involving the left centrum semiovale. Ananth Ponce Jr., MD CT Angiography 09/08/17 0000 Signed Impressions: Service Date/Time: Friday, September 08, 2017 10:28 - CONCLUSION: There extensive pulmonary emboli bilaterally. There is near complete cut off of the right lower lobe pulmonary artery. Prominent filling defects on the left as well. These findings were relayed to Dr. Dominguez immediately at the completion of the study. Scattered pulmonary infiltrates, small pleural effusion and extensive mediastinal lymphadenopathy as described above. Karsten Crowder MD Brain MRI 09/08/17 0000 Signed Impressions: Service Date/Time: Friday, September 08, 2017 18:04 - CONCLUSION: Deterioration in the appearance of the scan. At least 3 focal areas of abnormal contrast enhancement are present scattered to in both hemispheres. Given the history this most likely represents developing areas cerebritis. Exam is compromised by an uncooperative patient and motion artifact. These 2 factors make detection of other abnormalities such as cortical cephalitis and meningitis difficult to exclude. Cannot exclude hemorrhagic lesions as well. There is no mass effect evident. Geremias Mauricio MD Chest CT 09/03/17 0000 Signed Impressions: Service Date/Time: Sunday, September 03, 2017 12:41 - CONCLUSION: 1. There are at least 5 pulmonary nodules present bilaterally with the largest measuring 19 mm. None demonstrate cavitation but it is possible that these represent septic emboli. Suggest followup to assess for change. 2. Splenomegaly with subtle wedge-shaped areas of low-density in the mid spleen which could represent infarcts. 3. Mild cardiomegaly in this patient post aortic valve replacement. Low density of the cardiac blood pool suggests anemia. Adalid Galo MD Aorta w/Runoff CTA 09/02/17 0000 Signed Impressions: Service Date/Time: Saturday, September 02, 2017 12:47 - CONCLUSION: Left renal cortical infarction. 5-6 cm length total occlusion of the left superficial femoral artery in the proximal thigh. Nodular parenchymal opacities in the lung bases bilaterally See above discussion. Adalid Dallas MD Renal Ultrasound 09/01/17 0000 Signed Impressions: Service Date/Time: Friday, September 01, 2017 10:53 - CONCLUSION: 1. No evidence of hydronephrosis. 2. Thickening of the urinary bladder wall a 1.1 cm. 3. Prominent splenomegaly. Baldemar J. Siragusa, MD Breast Ultrasound 09/01/17 0000 Signed Impressions: Service Date/Time: Friday, September 01, 2017 10:48 - CONCLUSION: Negative targeted right breast ultrasound examination. Adalid Haney MD Lower Extremity Ultrasound 08/31/17 0000 Signed Impressions: Service Date/Time: Thursday, August 31, 2017 21:22 - CONCLUSION: 1. No sonographic evidence for lower extremity DVT. 2. Incidental note of bilateral inguinal adenopathy with the largest on the right measuring 3.3 cm and the largest on the left measuring 2.6 cm. This finding is nonspecific but is typically reactive in etiology. Luis Leija MD Objective Remarks AAOx3 NAD Clear lungs BL S1S2 4/6 systolic ejection murmur +3 BL lower extremity edema without erythema. Medications and IVs Current Medications Medications (Trade) Dose Ordered Sig/Jessica Route Start Time Stop Time Status Last Admin (NS Flush) 2 ml UNSCH PRN IV FLUSH 08/31/17 22:00 09/17/17 01:03 (NS Flush) 2 ml BID IV FLUSH 09/01/17 09:00 09/22/17 07:22 (Tylenol) 650 mg Q6H PRN PO 08/31/17 22:00 09/10/17 16:02 (Zofran Inj) 4 mg Q6H PRN IV PUSH 08/31/17 22:00 09/13/17 21:22 (Restoril) 15 mg HS PRN PO 08/31/17 22:00 09/11/17 22:08 Miscellaneous Information 1 Q361D XX 08/31/17 22:00 (Chlorhexidine 2% Cloth) 3 pack Taper DAILY@04 TOP 09/01/17 04:00 08/28/18 03:59 09/11/17 03:54 (Chlorhexidine 2% Cloth) 3 pack UNSCH PRN TOP 08/31/17 22:00 (Armida-Colace) 1 tab BID PO 09/01/17 09:00 09/21/17 08:07 (Milk Of Magnesia Liq) 30 ml Q12H PRN PO 08/31/17 22:00 (Senokot) 17.2 mg Q12H PRN PO 08/31/17 22:00 (Dulcolax Supp) 10 mg DAILY PRN RECTAL 08/31/17 22:00 (Lactulose Liq) 30 ml DAILY PRN PO 08/31/17 22:00 Ampicillin Sodium 2000 mg/Sodium Chloride 100 ml @ 400 mls/hr Q6H IV 09/01/17 14:00 09/22/17 13:50 (Imodium) 2 mg Q4H PRN PO 09/03/17 16:15 09/05/17 14:32 (Albuterol Neb) 2.5 mg Q2HR NEB PRN NEB 09/04/17 11:30 09/22/17 12:17 ([place]olstoy 10-325 Mg) 1 tab Q4H PRN PO 09/09/17 15:00 09/14/17 05:02 (Dilaudid Pf Inj) 1 mg Q4H PRN IV PUSH 09/12/17 19:00 09/22/17 12:14 (KCl) 60 meq Q12HR PO 09/19/17 09:45 09/22/17 07:52 (Coumadin) 2 mg DAILY@16 PO 09/21/17 18:45 Future hold Date of Insertion: Sep 01, 2017 Line: Central Venous Catheter Side: Right Location: Internal, Jugular A/P Problem List: (1) Prosthetic valve endocarditis ICD Code: T82.6XXA - Infection and inflammatory reaction due to cardiac valve prosthesis, initial encounter Status: Acute Plan: Continue antibiotics as per ID. Patient on IV ampicillin. Continue to hold coumadin until INR < 3 - goal 2-3. (2) Bacteremia ICD Code: R78.81 - Bacteremia Plan: Blood cultures obtained on 08/31 growing strep viridans. Subsequent repeat blood cultures negative. (3) Septic pulmonary embolism ICD Code: I26.90 - Septic pulmonary embolism without acute cor pulmonale Status: Acute Plan: As observed on a CT angiography of the chest obtained on 09/08/17. chocardiogram on 09/08 showed an estimated EF of 50-55%. ++severe tricuspid regurgitation with prosthesis in place. ++2 x 4 cm mobile vegetation was seen on the valve. The right atrium and right ventricle were normal in size and function Hematology following. Continue to hold Coumadin until INR <3 - goal INR 2-3. (4) IVDU (intravenous drug user) ICD Code: F19.90 - Other psychoactive substance use, unspecified, uncomplicated Plan: Counseled on drug cessation. (5) Anemia ICD Code: D64.9 - Anemia, unspecified Status: Chronic Plan: Likely secondary to inflammation/infection. No evidence of bleeding or hemolysis. Monitor hemoglobin and transfuse as needed. Problem Qualifiers (1) Prosthetic valve endocarditis: Qualified Codes: T82.6XXA - Infection and inflammatory reaction due to cardiac valve prosthesis, initial encounter (2) Anemia: Qualified Codes: D63.8 - Anemia in other chronic diseases classified elsewhere Jaylen Livingston MD Sep 22, 2017 14:46
--- NOTE | 2017-09-22 15:57 | PD.ONC.PN ---
Subjective Subjective Remarks Afebrile overnight. Patient reports feet are hurting a lot today. discouraged. no bleeding. Objective Data Date Time Temp Pulse Resp B/P (MAP) Pulse Ox O2 Delivery O2 Flow Rate FiO2 09/22/17 15:14 112 09/22/17 12:19 97 Nasal Cannula 3.00 09/22/17 12:00 97.7 108 20 90/66 (74) 99 09/22/17 08:00 98.0 111 20 138/64 (88) 96 09/22/17 04:00 98.1 109 20 93/65 (74) 100 09/22/17 03:46 112 09/22/17 00:50 96 Nasal Cannula 3.00 09/22/17 00:00 97.2 108 20 108/59 (75) 99 09/21/17 23:44 106 09/21/17 20:00 97.2 86 18 110/57 (74) 96 09/21/17 19:44 106 09/21/17 19:00 Nasal Cannula 2.00 09/21/17 16:48 97 Nasal Cannula 3.00 09/21/17 16:00 97.4 101 20 101/58 (72) 94 09/21/17 16:00 103 09/22/17 09/22/17 09/22/17 07:00 15:00 23:00 Intake Total 820 ml 100 ml Balance 820 ml 100 ml Result Diagram: 09/22/17 0402 09/22/17 0402 Laboratory Results Laboratory Tests Test 09/21/17 20:00 09/22/17 04:02 09/22/17 08:00 White Blood Count 14.1 TH/MM3 15.3 TH/MM3 Red Blood Count 3.51 MIL/MM3 3.48 MIL/MM3 Hemoglobin 8.3 GM/DL 8.3 GM/DL Hematocrit 26.4 % 26.2 % Mean Corpuscular Volume 75.2 FL 75.4 FL Mean Corpuscular Hemoglobin 23.6 PG 23.8 PG Mean Corpuscular Hemoglobin Concent 31.4 % 31.5 % Red Cell Distribution Width 22.3 % 22.9 % Platelet Count 349 TH/MM3 364 TH/MM3 Mean Platelet Volume 8.4 FL 8.5 FL Neutrophils (%) (Auto) 79.4 % 78.9 % Lymphocytes (%) (Auto) 9.2 % 10.7 % Monocytes (%) (Auto) 7.5 % 7.2 % Eosinophils (%) (Auto) 2.6 % 1.9 % Basophils (%) (Auto) 1.3 % 1.3 % Neutrophils # (Auto) 11.2 TH/MM3 12.1 TH/MM3 Lymphocytes # (Auto) 1.3 TH/MM3 1.6 TH/MM3 Monocytes # (Auto) 1.1 TH/MM3 1.1 TH/MM3 Eosinophils # (Auto) 0.4 TH/MM3 0.3 TH/MM3 Basophils # (Auto) 0.2 TH/MM3 0.2 TH/MM3 CBC Comment DIFF FINAL DIFF FINAL Differential Comment Prothrombin Time 32.8 SEC Prothromb Time International Ratio 3.3 RATIO Blood Urea Nitrogen 24 MG/DL Creatinine 1.52 MG/DL Random Glucose 100 MG/DL Calcium Level 8.3 MG/DL Sodium Level 131 MEQ/L Potassium Level 4.2 MEQ/L Chloride Level 93 MEQ/L Carbon Dioxide Level 26.6 MEQ/L Anion Gap 11 MEQ/L Estimat Glomerular Filtration Rate 39 ML/MIN Complement C3 118 MG/DL Complement C4 24 MG/DL Urine Color YELLOW Urine Turbidity CLEAR Urine pH 6.5 Urine Specific Bernie 1.012 Urine Protein 30 mg/dL Urine Glucose (UA) NEG mg/dL Urine Ketones NEG mg/dL Urine Occult Blood TRACE Urine Nitrite NEG Urine Bilirubin NEG Urine Urobilinogen LESS THAN 2.0 MG/DL Urine Leukocyte Esterase NEG Urine RBC 1 /hpf Urine WBC 2 /hpf Urine Squamous Epithelial Cells 1 /hpf Urine Transitional Epithelial Cells <1 /hpf Microscopic Urinalysis Comment CULT NOT INDICATED Urine Eosinophils NONE SEEN /HPF Urine Osmolality 306 MOSM/KG Urine Random Sodium 9 MEQ/L Administered Medications Medications (Trade) Dose Ordered Sig/Jessica Route PRN Reason Start Time Stop Time Status Last Admin Dose Admin Sodium Chloride (NS Flush) 2 ml UNSCH PRN IV FLUSH FLUSH AFTER USING IV ACCESS 08/31/17 22:00 09/17/17 01:03 Sodium Chloride (NS Flush) 2 ml BID IV FLUSH 09/01/17 09:00 09/22/17 07:22 Acetaminophen (Tylenol) 650 mg Q6H PRN PO fever 08/31/17 22:00 09/10/17 16:02 Ondansetron HCl (Zofran Inj) 4 mg Q6H PRN IV PUSH NAUSEA OR VOMITING 08/31/17 22:00 09/13/17 21:22 Temazepam (Restoril) 15 mg HS PRN PO INSOMNIA 08/31/17 22:00 09/11/17 22:08 Chlorhexidine Gluconate (Chlorhexidine 2% Cloth) 3 pack Taper DAILY@04 TOP 09/01/17 04:00 08/28/18 03:59 09/11/17 03:54 Senna/Docusate Sodium (Armida-Colace) 1 tab BID PO 09/01/17 09:00 09/21/17 08:07 Ampicillin Sodium 2000 mg/Sodium Chloride 100 ml @ 400 mls/hr Q6H IV 09/01/17 14:00 09/22/17 13:50 Loperamide HCl (Imodium) 2 mg Q4H PRN PO Diarrhea 09/03/17 16:15 09/05/17 14:32 Albuterol Sulfate (Albuterol Neb) 2.5 mg Q2HR NEB PRN NEB dyspnea 09/04/17 11:30 09/22/17 12:17 Acetaminophen/ Hydrocodone Bitart ([place] 10-325 Mg) 1 tab Q4H PRN PO pain 1-5 09/09/17 15:00 09/14/17 05:02 Hydromorphone HCl (Dilaudid Pf Inj) 1 mg Q4H PRN IV PUSH PAIN SCALE 6 TO 10 09/12/17 19:00 09/22/17 12:14 Potassium Chloride (KCl) 60 meq Q12HR PO 09/19/17 09:45 09/22/17 07:52 Objective Remarks GENERAL: chronically ill female, lying in bed. SKIN: Warm and dry. HEAD: Normocephalic. EYES: No injection or drainage. NECK: Supple, trachea midline. CARDIOVASCULAR: +S1, S2, tachy RESPIRATORY: anterior gustafson with scattered rhonchi. GASTROINTESTINAL: Abdomen soft, non-tender, nondistended. EXTREMITIES: 3-4+ pitting edema in bilateral legs. pedal pulses palpable. NEUROLOGICAL: awake and alert. normal, although somewhat dyspneic speech. Assessment/Plan Assessment 36y/o female admitted with recurrent endocarditis. hematology consulted for anticoagulation assistance. h/o Recurrent bacterial endocarditis, bacteremia, history of prosthetic aortic valve and subsequent redo, chronic active hepatitis C, intravenous drug use, microcytic anemia, consistent with iron deficiency, left lower extremity arterial event, bacterial endocarditis with viridans streptococcus. HPI (brought forward for continuity of care): history of IV drug abuse and recurrent endocarditis. had a relapse of her activity. has history of pulmonary embolism and infected valves. +significant congestive heart failure and presented to the emergency room on 08/31/2017, with sepsis. is followed by Infectious Disease for her endocarditis. previously received antibiotic therapy for enterococcus faecalis and staph aureus. There is questionable compliance. Her current blood culture from 08/31/2017, shows viridans streptococcus. Two out of two bottles were positive. She is on ampicillin and gentamicin. course is complicated by cold left lower extremity, evaluated by Vascular Surgery. 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 There is satisfactory calf runoff present. For this reason , conservative management with anticoagulation is continued. was placed on unfractionated heparin. Her heparin dose has been titrated from 1000 units/ hour to 2500 units/hour with a PTT remaining subtherapeutic. Her last PTT is 32 seconds from 09/06/2017, at 2 p.m. For this reason, Hematology/Oncology was consulted. Plan 1. right superficial femoral artery occlusion: continue coumadin. INR supratherapeutic. instead of holding coumadin, will just reduce dose to 2mg PO today 2. monitor CBC Attending Statement The exam, history, and the medical decision-making described in the above note were completed with the assistance of the mid-level provider. I reviewed and agree with the findings presented. I attest that I had a [id number] encounter with the patient on the same day, and personally performed and documented my assessment and findings in the medical record. stable but very ill. both legs are edematous. will resume coumadin at dose of 2 mg per day and aim at INR between 2-3. if further problems would add aspirin. check inr in am. Jennifer Bailey Sep 22, 2017 15:57 Bernabe Neal MD Sep 22, 2017 16:05
[2017-09-22] MEDS: WARFARIN SOD 2 MG TAB PO SCH (16:16)
--- NOTE | 2017-09-22 17:13 | HHI.NPPN ---
Subjective Additional Remarks no acute complaints Objective Data Data 09/22/17 09/23/17 19:00 07:00 Intake Total 200 ml Balance 200 ml IV Total 200 ml # Voids 4 # Bowel Movements 1 Vital Signs Date Time Temp Pulse Resp B/P (MAP) Pulse Ox O2 Delivery O2 Flow Rate FiO2 09/22/17 16:36 103 09/22/17 16:00 97.2 100 20 97/66 (76) 100 09/22/17 15:14 112 09/22/17 12:19 97 Nasal Cannula 3.00 09/22/17 12:00 97.7 108 20 90/66 (74) 99 09/22/17 08:00 98.0 111 20 138/64 (88) 96 09/22/17 04:00 98.1 109 20 93/65 (74) 100 09/22/17 03:46 112 09/22/17 00:50 96 Nasal Cannula 3.00 09/22/17 00:00 97.2 108 20 108/59 (75) 99 09/21/17 23:44 106 09/21/17 20:00 97.2 86 18 110/57 (74) 96 09/21/17 19:44 106 09/21/17 19:00 Nasal Cannula 2.00 -: 09/22/17 0402 09/22/17 0402 Physical Exam General Appearance: No Acute Distress Eyes Eye Exam: Pupils Equal Throat Throat Exam: Oral Mucosa Ernest & Moist Neck Neck Exam: Neck Supple Pulmonary Resp Exam: Clear Bilaterally Cardiology CV Exam: Regular, Normal Sinus Rhythm Gastrointestinal/Abdomen GI Exam: Soft, Non-Tender Integumentary Skin Exam: Dry, Intact Extremeties Extremities Exam: No Edema Neurologic Neuro Exam: Alert, Awake, Oriented Assessment/Plan Problem List: (1) Acute kidney injury ICD Codes: N17.9 - Acute kidney failure, unspecified Status: Acute Plan: DUONG likely due to vancomycin toxicity, possible post-infectious GN Urine eosinophils negative, complements wnl Creatinine improving from 1.7 -> 1.5 today. Edema due to malnutrition, albumin level of 2 last week. If stable tomorrow, can start lasix with albumin. (2) Prosthetic valve endocarditis ICD Codes: T82.6XXA - Infection and inflammatory reaction due to cardiac valve prosthesis, initial encounter Status: Acute Plan: septic endocarditis with strep viridans IV drug use, pulmonary emboli as well. Continues ampicillin per ID, continue renal dosing antibiotics. (3) Peripheral arterial occlusive disease ICD Codes: I77.9 - Disorder of arteries and arterioles, unspecified Plan: seen with vascular, continue medical management Hold contrast studies as possible. (4) Hepatitis C ICD Codes: B19.20 - Unspecified viral hepatitis C without hepatic coma Status: Chronic Problem Qualifiers (1) Prosthetic valve endocarditis: Qualified Codes: T82.6XXA - Infection and inflammatory reaction due to cardiac valve prosthesis, initial encounter Caleb Webber MD Sep 22, 2017 17:13
[2017-09-23] VITALS (11 sets, daily range): BP systolic 93–103; BP diastolic 59–81; PULSE 101–111; RESP 20–21; TEMP 96.8–98.6; O2SAT 94–100
[2017-09-23] MEDS: HYDROmorphone HCL PF 2 MG/ML VIAL IV PUSH PRN ×6 (00:49→21:42)
[2017-09-23] MEDS: RESP: ALBUTEROL 2.5 MG/3 ML NEB (PRN) NEB ×4 (00:58→20:19)
[2017-09-23] MEDS: AMPICILLIN INJ 2,000 MG in SODIUM CHLORIDE 0.9% INJ 100 ML IV SCH ×4 (02:35→21:40)
[2017-09-23] MEDS: CHLORHEXIDINE GLUCONATE 2 % 1 PACK (2 CLOTHS) TOP SCH (04:00)
[2017-09-23 05:14] LABS: AUTOMATED NEUTROPHIL # 12.1 TH/MM3 (1.8-7.7); BASOPHIL # 0.1 TH/MM3 (0-0.2); BASOPHIL % 0.4 % (0.0-2.0); EOSINOPHIL # 0.2 TH/MM3 (0-0.4); EOSINOPHIL % 1.3 % (0.0-4.0); HEMATOCRIT 26.4 % (35.0-46.0); HEMOGLOBIN 8.4 GM/DL (11.6-15.3); LYMPH % 10.8 % (9.0-44.0); LYMPHOCYTE # 1.6 TH/MM3 (1.0-4.8); MEAN CELL VOLUME 75.6 FL (80.0-100.0); MEAN CORPUSCULAR HEMOGLOBIN 24.2 PG (27.0-34.0); MEAN PLATELET VOLUME 8.2 FL (7.0-11.0); MONO % 6.9 % (0.0-8.0); NEUT % 80.6 % (16.0-70.0); PLATELET COUNT 308 TH/MM3 (150-450); RED BLOOD COUNT 3.49 MIL/MM3 (4.00-5.30); RED CELL DISTRIBUTION WIDTH 22.5 % (11.6-17.2)
[2017-09-23 05:27] LABS: INTERNATIONAL NORMALIZED RATIO 3.1 RATIO; PROTHROMBIN TIME - PATIENT 31.2 SEC (9.8-11.6)
[2017-09-23 05:37] LABS: ALBUMIN 2.4 GM/DL (3.4-5.0); AST (GOT) 395 U/L (15-37); BLOOD UREA NITROGEN 23 MG/DL (7-18); CALCIUM 8.5 MG/DL (8.5-10.1); CHLORIDE 95 MEQ/L (98-107); CREATININE 1.57 MG/DL (0.50-1.00); GLOMERULAR FILTRATION RATE 37 ML/MIN (>89); GLUCOSE,RANDOM 90 MG/DL (74-106); MAGNESIUM 1.6 MG/DL (1.5-2.5); SODIUM (NA) 130 MEQ/L (136-145)
[2017-09-23 05:38] LABS: ALT (GPT) 113 U/L (10-53); PHOSPHORUS 3.6 MG/DL (2.5-4.9)
[2017-09-23 05:40] LABS: ALKALINE PHOSPHATASE 177 U/L (45-117); TOTAL BILIRUBIN ADULT 0.9 MG/DL (0.2-1.0)
[2017-09-23] MEDS: POTASSIUM CHLORIDE 10 MEQ CONTROLLED RELEASE TAB PO SCH ×2 (09:10→21:41)
[2017-09-23] MEDS: DOCUSATE SODIUM 50 MG/SENNA 8.6 MG TAB PO SCH ×2 (09:10→21:00)
[2017-09-23] MEDS: SODIUM CHLORIDE 0.9% FLUSH 10 ML FLUSH IV FLUSH SCH ×2 (09:11→21:44)
--- NOTE | 2017-09-23 13:48 | HHI.PR ---
Subjective Remarks The patient denies chest pain, feels short of breath on exertion. Please of edema in the lower extremities. Denies fevers or chills. Patient has been a febrile. Creatinine with slight elevation from 1.52-1.57. Objective Vitals Vital Signs Date Time Temp Pulse Resp B/P (MAP) Pulse Ox O2 Delivery O2 Flow Rate FiO2 09/23/17 12:00 96.8 104 20 93/59 (70) 95 09/23/17 08:56 96 Nasal Cannula 3.00 09/23/17 08:00 109 09/23/17 08:00 98.4 105 20 96/62 (73) 95 09/23/17 04:01 110 09/23/17 04:00 97.8 111 20 103/81 (88) 94 09/23/17 01:01 98 Nasal Cannula 2.00 09/23/17 00:23 97.5 109 20 99/77 (84) 100 09/22/17 23:54 108 09/22/17 20:00 107 09/22/17 20:00 98.4 111 22 98/73 (81) 100 09/22/17 19:45 Nasal Cannula 2.00 Humidified 09/22/17 19:39 108 09/22/17 16:36 103 09/22/17 16:00 97.2 100 20 97/66 (76) 100 09/22/17 15:14 112 I/O 09/22/17 09/22/17 09/22/17 09/23/17 09/23/17 09/23/17 07:00 15:00 23:00 07:00 15:00 23:00 Intake Total 820 ml 100 ml 210 ml 1115 ml Balance 820 ml 100 ml 210 ml 1115 ml Intake Oral 720 ml 1000 ml IV Total 100 ml 100 ml 210 ml 115 ml # Voids 3 4 3 # Bowel Movements 1 1 2 Result Diagram: 09/23/17 0405 09/23/17 0405 Imaging Last Impressions Chest X-Ray 09/21/17 0000 Signed Impressions: Service Date/Time: Thursday, September 21, 2017 13:30 - CONCLUSION: 1. Right basilar patchy discussed with probable pneumonia. 2. Cardiomegaly. Jerald Licona MD Head CT 09/08/17 0000 Signed Impressions: Service Date/Time: Friday, September 08, 2017 10:22 - CONCLUSION: 1. Focal area of decreased density involving the right parietal lobe. As a new finding from the prior exam. This could relate to a small infarct. MRI of the brain with gadolinium suggested to further evaluate. 2. Small lacunar infarction involving the left centrum semiovale. Ananth Ponce Jr., MD CT Angiography 09/08/17 0000 Signed Impressions: Service Date/Time: Friday, September 08, 2017 10:28 - CONCLUSION: There extensive pulmonary emboli bilaterally. There is near complete cut off of the right lower lobe pulmonary artery. Prominent filling defects on the left as well. These findings were relayed to Dr. Dominguez immediately at the completion of the study. Scattered pulmonary infiltrates, small pleural effusion and extensive mediastinal lymphadenopathy as described above. Karsten Crowder MD Brain MRI 09/08/17 0000 Signed Impressions: Service Date/Time: Friday, September 08, 2017 18:04 - CONCLUSION: Deterioration in the appearance of the scan. At least 3 focal areas of abnormal contrast enhancement are present scattered to in both hemispheres. Given the history this most likely represents developing areas cerebritis. Exam is compromised by an uncooperative patient and motion artifact. These 2 factors make detection of other abnormalities such as cortical cephalitis and meningitis difficult to exclude. Cannot exclude hemorrhagic lesions as well. There is no mass effect evident. Geremias Mauricio MD Chest CT 09/03/17 0000 Signed Impressions: Service Date/Time: Sunday, September 03, 2017 12:41 - CONCLUSION: 1. There are at least 5 pulmonary nodules present bilaterally with the largest measuring 19 mm. None demonstrate cavitation but it is possible that these represent septic emboli. Suggest followup to assess for change. 2. Splenomegaly with subtle wedge-shaped areas of low-density in the mid spleen which could represent infarcts. 3. Mild cardiomegaly in this patient post aortic valve replacement. Low density of the cardiac blood pool suggests anemia. Adalid Galo MD Aorta w/Runoff CTA 09/02/17 0000 Signed Impressions: Service Date/Time: Saturday, September 02, 2017 12:47 - CONCLUSION: Left renal cortical infarction. 5-6 cm length total occlusion of the left superficial femoral artery in the proximal thigh. Nodular parenchymal opacities in the lung bases bilaterally See above discussion. Adalid Dallas MD Renal Ultrasound 09/01/17 0000 Signed Impressions: Service Date/Time: Friday, September 01, 2017 10:53 - CONCLUSION: 1. No evidence of hydronephrosis. 2. Thickening of the urinary bladder wall a 1.1 cm. 3. Prominent splenomegaly. Baldemar Pineda MD Breast Ultrasound 09/01/17 0000 Signed Impressions: Service Date/Time: Friday, September 01, 2017 10:48 - CONCLUSION: Negative targeted right breast ultrasound examination. Adalid Haney MD Lower Extremity Ultrasound 08/31/17 0000 Signed Impressions: Service Date/Time: Thursday, August 31, 2017 21:22 - CONCLUSION: 1. No sonographic evidence for lower extremity DVT. 2. Incidental note of bilateral inguinal adenopathy with the largest on the right measuring 3.3 cm and the largest on the left measuring 2.6 cm. This finding is nonspecific but is typically reactive in etiology. Luis Leija MD Objective Remarks AAOx3 NAD Clear lungs BL S1S2 4/6 systolic ejection murmur +3 BL lower extremity edema without erythema. Medications and IVs Current Medications Medications (Trade) Dose Ordered Sig/Jessica Route Start Time Stop Time Status Last Admin (NS Flush) 2 ml UNSCH PRN IV FLUSH 08/31/17 22:00 09/17/17 01:03 (NS Flush) 2 ml BID IV FLUSH 09/01/17 09:00 09/23/17 09:11 (Tylenol) 650 mg Q6H PRN PO 08/31/17 22:00 09/10/17 16:02 (Zofran Inj) 4 mg Q6H PRN IV PUSH 08/31/17 22:00 09/13/17 21:22 (Restoril) 15 mg HS PRN PO 08/31/17 22:00 09/11/17 22:08 Miscellaneous Information 1 Q361D XX 08/31/17 22:00 (Chlorhexidine 2% Cloth) 3 pack Taper DAILY@04 TOP 09/01/17 04:00 08/28/18 03:59 09/11/17 03:54 (Chlorhexidine 2% Cloth) 3 pack UNSCH PRN TOP 08/31/17 22:00 (Armida-Colace) 1 tab BID PO 09/01/17 09:00 09/23/17 09:10 (Milk Of Magnesia Liq) 30 ml Q12H PRN PO 08/31/17 22:00 (Senokot) 17.2 mg Q12H PRN PO 08/31/17 22:00 (Dulcolax Supp) 10 mg DAILY PRN RECTAL 08/31/17 22:00 (Lactulose Liq) 30 ml DAILY PRN PO 08/31/17 22:00 Ampicillin Sodium 2000 mg/Sodium Chloride 100 ml @ 400 mls/hr Q6H IV 09/01/17 14:00 09/23/17 13:34 (Imodium) 2 mg Q4H PRN PO 09/03/17 16:15 09/05/17 14:32 (Albuterol Neb) 2.5 mg Q2HR NEB PRN NEB 09/04/17 11:30 09/23/17 08:54 ([place] 10-325 Mg) 1 tab Q4H PRN PO 09/09/17 15:00 09/14/17 05:02 (Dilaudid Pf Inj) 1 mg Q4H PRN IV PUSH 09/12/17 19:00 09/23/17 13:33 (KCl) 60 meq Q12HR PO 09/19/17 09:45 09/23/17 09:10 (Coumadin) 2 mg DAILY@16 PO 09/21/17 18:45 Future hold 09/22/17 16:16 Vascular Central Line Catheter: Yes Assessment to: Continue Date of Insertion: Sep 01, 2017 Line: Central Venous Catheter Side: Right Location: Internal, Jugular Reason for Continuation IV antibiotics. A/P Problem List: (1) Prosthetic valve endocarditis ICD Code: T82.6XXA - Infection and inflammatory reaction due to cardiac valve prosthesis, initial encounter Status: Acute (2) Bacteremia ICD Code: R78.81 - Bacteremia (3) Septic pulmonary embolism ICD Code: I26.90 - Septic pulmonary embolism without acute cor pulmonale Status: Acute (4) IVDU (intravenous drug user) ICD Code: F19.90 - Other psychoactive substance use, unspecified, uncomplicated (5) Anemia ICD Code: D64.9 - Anemia, unspecified Status: Chronic (6) DUONG (acute kidney injury) ICD Code: N17.9 - Acute kidney failure, unspecified Plan: Creatinine slightly worsened from 1.52-1.57. Nephrology consulted. Possible ATN from vancomycin toxicity or from infection. Urine eosinophils negative. Continue to hold diuretics as per nephrology. Nephrology recommends waiting for some improvement in renal function before some diuretics could be administered. Continue to monitor BUN and creatinine, avoid nephrotoxins. Assessment and Plan (1) Prosthetic valve endocarditis Plan: Continue antibiotics as per ID. Patient on IV ampicillin. Continue to hold coumadin until INR < 3 - goal 2-3. (2) Bacteremia Plan: Blood cultures obtained on 08/31 growing strep viridans. Subsequent repeat blood cultures negative. Patient has a right IJ central line which has been there for (3) Septic pulmonary embolism Plan: As observed on a CT angiography of the chest obtained on 09/08/17. chocardiogram on 09/08 showed an estimated EF of 50-55%. ++severe tricuspid regurgitation with prosthesis in place. ++2 x 4 cm mobile vegetation was seen on the valve. The right atrium and right ventricle were normal in size and function Hematology following. Management of Coumadin as per hematology recommendations. Goal INR 2-3. (4) IVDU (intravenous drug user) Plan: Counseled on drug cessation. (5) Anemia Plan: Likely secondary to inflammation/infection. No evidence of bleeding or hemolysis. Monitor hemoglobin and transfuse as needed. I will consult interventional radiology for a right central IJ line exchange. Patient has a central line that has been there for [address] Justus khoury from infectious disease. Problem Qualifiers (1) Prosthetic valve endocarditis: Qualified Codes: T82.6XXA - Infection and inflammatory reaction due to cardiac valve prosthesis, initial encounter (2) Anemia: Qualified Codes: D63.8 - Anemia in other chronic diseases classified elsewhere Jaylen Livingston MD Sep 23, 2017 13:47
--- NOTE | 2017-09-23 15:16 | HHI.IDPN ---
Note Infectious Disease Note Patient says she is okay. She is awake and alert. Feels such as shortness of breath is stable. Sitting up in bedside recliner. On nasal cannula. Afebrile. Denies chills. Legs remain markedly swollen. Renal function slow to improve. 36-year-old white female who has a history of endocarditis and has been admitted several times for the same. The patient developed shortness of breath, fever and chills, and presented to the emergency department. The patient is noted to be actively using IV drugs. She has history of significant CHF from prior valvular heart disease related to endocarditis. She states that she started feeling short of breath about a week ago and the shortness of breath worsened. After she completed IV antibiotics in April she was put on doxycycline prophylaxis. She reports that she has not been taking the doxycycline. PAST MEDICAL HISTORY: Hepatitis C. IV drug use. prosthetic aortic valve replacement in 2010 and then redo aortic valve replacement in December 2015 ANTIBIOTICS: Ampicillin. SOCIAL HISTORY: Positive occasional alcohol. No tobacco. IV drug use in the form of Dilaudid, oxycodone. The patient also uses marijuana. OBJECTIVE: Vital Signs Date Time Temp Pulse Resp B/P (MAP) Pulse Ox O2 Delivery O2 Flow Rate FiO2 09/23/17 12:00 96.8 104 20 93/59 (70) 95 09/23/17 12:00 104 09/23/17 08:56 96 Nasal Cannula 3.00 09/23/17 08:00 109 09/23/17 08:00 98.4 105 20 96/62 (73) 95 09/23/17 04:01 110 09/23/17 04:00 97.8 111 20 103/81 (88) 94 09/23/17 01:01 98 Nasal Cannula 2.00 09/23/17 00:23 97.5 109 20 99/77 (84) 100 09/22/17 23:54 108 09/22/17 20:00 107 09/22/17 20:00 98.4 111 22 98/73 (81) 100 09/22/17 19:45 Nasal Cannula 2.00 Humidified 09/22/17 19:39 108 09/22/17 16:36 103 09/22/17 16:00 97.2 100 20 97/66 (76) 100 09/22/17 15:14 112 Laboratory Tests Test 09/21/17 20:00 09/22/17 04:02 09/23/17 04:05 White Blood Count 14.1 TH/MM3 15.3 TH/MM3 15.0 TH/MM3 Red Blood Count 3.51 MIL/MM3 3.48 MIL/MM3 3.49 MIL/MM3 Hemoglobin 8.3 GM/DL 8.3 GM/DL 8.4 GM/DL Hematocrit 26.4 % 26.2 % 26.4 % Mean Corpuscular Volume 75.2 FL 75.4 FL 75.6 FL Mean Corpuscular Hemoglobin 23.6 PG 23.8 PG 24.2 PG Mean Corpuscular Hemoglobin Concent 31.4 % 31.5 % 32.0 % Red Cell Distribution Width 22.3 % 22.9 % 22.5 % Platelet Count 349 TH/MM3 364 TH/MM3 308 TH/MM3 Mean Platelet Volume 8.4 FL 8.5 FL 8.2 FL Neutrophils (%) (Auto) 79.4 % 78.9 % 80.6 % Lymphocytes (%) (Auto) 9.2 % 10.7 % 10.8 % Monocytes (%) (Auto) 7.5 % 7.2 % 6.9 % Eosinophils (%) (Auto) 2.6 % 1.9 % 1.3 % Basophils (%) (Auto) 1.3 % 1.3 % 0.4 % Neutrophils # (Auto) 11.2 TH/MM3 12.1 TH/MM3 12.1 TH/MM3 Lymphocytes # (Auto) 1.3 TH/MM3 1.6 TH/MM3 1.6 TH/MM3 Monocytes # (Auto) 1.1 TH/MM3 1.1 TH/MM3 1.0 TH/MM3 Eosinophils # (Auto) 0.4 TH/MM3 0.3 TH/MM3 0.2 TH/MM3 Basophils # (Auto) 0.2 TH/MM3 0.2 TH/MM3 0.1 TH/MM3 CBC Comment DIFF FINAL DIFF FINAL DIFF FINAL Differential Comment Laboratory Tests Test 09/22/17 04:02 09/23/17 04:05 Blood Urea Nitrogen 24 MG/DL 23 MG/DL Creatinine 1.52 MG/DL 1.57 MG/DL Random Glucose 100 MG/DL 90 MG/DL Calcium Level 8.3 MG/DL 8.5 MG/DL Sodium Level 131 MEQ/L 130 MEQ/L Potassium Level 4.2 MEQ/L 4.7 MEQ/L Chloride Level 93 MEQ/L 95 MEQ/L Carbon Dioxide Level 26.6 MEQ/L 25.0 MEQ/L Anion Gap 11 MEQ/L 10 MEQ/L Estimat Glomerular Filtration Rate 39 ML/MIN 37 ML/MIN Total Protein 7.0 GM/DL Albumin 2.4 GM/DL Phosphorus Level 3.6 MG/DL Magnesium Level 1.6 MG/DL Alkaline Phosphatase 177 U/L Aspartate Amino Transf (AST/SGOT) 395 U/L Alanine Aminotransferase (ALT/SGPT) 113 U/L Total Bilirubin 0.9 MG/DL IMAGING: Chest X-Ray 09/21/17 0000 Signed Impressions: Service Date/Time: Thursday, September 21, 2017 13:30 - CONCLUSION: 1. Right basilar patchy discussed with probable pneumonia. 2. Cardiomegaly. Jerald Licona MD Chest X-Ray 09/10/17 0600 Signed Impressions: Service Date/Time: Sunday, September 10, 2017 03:52 - CONCLUSION: There is a small to moderate size right pleural effusion with associated volume loss and/or airspace consolidation. The pleural effusion has increased from the prior examination. Adalid Galo MD Head CT 09/08/17 0000 Signed Impressions: Service Date/Time: Friday, September 08, 2017 10:22 - CONCLUSION: 1. Focal area of decreased density involving the right parietal lobe. As a new finding from the prior exam. This could relate to a small infarct. MRI of the brain with gadolinium suggested to further evaluate. 2. Small lacunar infarction involving the left centrum semiovale. Ananth Ponce Jr., MD CT Angiography 09/08/17 Signed Impressions: Service Date/Time: Friday, September 08, 2017 10:28 - CONCLUSION: There extensive pulmonary emboli bilaterally. There is near complete cut off of the right lower lobe pulmonary artery. Prominent filling defects on the left as well. These findings were relayed to Dr. Dominguez immediately at the completion of the study. Scattered pulmonary infiltrates, small pleural effusion and extensive mediastinal lymphadenopathy as described above. Karsten Crowder MD Brain MRI 09/08/17 0000 Signed Impressions: Service Date/Time: Friday, September 08, 2017 18:04 - CONCLUSION: Deterioration in the appearance of the scan. At least 3 focal areas of abnormal contrast enhancement are present scattered to in both hemispheres. Given the history this most likely represents developing areas cerebritis. Exam is compromised by an uncooperative patient and motion artifact. These 2 factors make detection of other abnormalities such as cortical cephalitis and meningitis difficult to exclude. Cannot exclude hemorrhagic lesions as well. There is no mass effect evident. Geremias Mauricio MD Renal Ultrasound 09/01/17 0000 Signed Impressions: Service Date/Time: Friday, September 01, 2017 10:53 - CONCLUSION: 1. No evidence of hydronephrosis. 2. Thickening of the urinary bladder wall a 1.1 cm. 3. Prominent splenomegaly. Baldemar Pineda MD Chest X-Ray 09/01/17 0000 Signed Impressions: Service Date/Time: Friday, September 01, 2017 09:36 - CONCLUSION: Right internal jugular central line in place with the tip overlying the SVC. A pneumothorax is not seen. Adalid Haney MD Breast Ultrasound 09/01/17 0000 Signed Impressions: Service Date/Time: Friday, September 01, 2017 10:48 - CONCLUSION: Negative targeted right breast ultrasound examination. Adalid Haney MD Lower Extremity Ultrasound 08/31/17 0000 Signed Impressions: Service Date/Time: Thursday, August 31, 2017 21:22 - CONCLUSION: 1. No sonographic evidence for lower extremity DVT. 2. Incidental note of bilateral inguinal adenopathy with the largest on the right measuring 3.3 cm and the largest on the left measuring 2.6 cm. This finding is nonspecific but is typically reactive in etiology. Luis Leija MD PHYSICAL EXAMINATION GENERAL: No acute distress. HEENT: No icterus. Oropharynx moist mucosa, no lesions. Neck: Supple without adenopathy. Lungs: Bilateral basilar rhonchi. Good air movement. Heart: 5/6 blowing systolic murmur at the upper right sternal border. Abdomen: Bowel sounds present, soft, obese, nontender. Extremities: Diffuse 3+ edema of the lower extremities. Lesions at Left tibia distally and left foot and great toe are faded. No calf tenderness. No nail hemorrhages. SKIN: no diffuse rash. Warm and moist. Neuro: No gross focal findings. Psychiatric: calm and cooperative. IMPRESSION 1. Sepsis. Strep Viridans. 2. Tricuspid valve endocarditis. Large vegetation. Severe tricuspid regurgitation. Patient evaluated by cardiovascular surgery and felt not to be a surgical candidate. 3. Bacteremia. Strep viridans. Blood cultures have remained negative on follow-up. Last positive blood culture was on 08/31. 4. History of prosthetic aortic valve and so likely recurrent prosthetic valve endocarditis. 5. Cerebritis on MRI. Also has parietal infarct noted on CT scan of the brain. 6. Left renal cortical and pulmonary and lower extremity septic emboli. 7. Leukocytosis secondary to sepsis from showering of emboli from endocarditis. 8. Acute renal failure. Kidney function slow to improve. RECOMMENDATIONS 1. Continue Ampicillin intravenous. 2. Add ceftriaxone for pulmonary coverage. 3. Central line change. 4. Monitor clinical status. Plan on intravenous antibiotics until October 12. Which will be 6 weeks after the last positive blood culture. After that she should continue with prophylactic oral antibiotics indefinitely. Continue to monitor her blood counts and renal function. Edmar Sloan MD Sep 23, 2017 15:16
[2017-09-23] MEDS: WARFARIN SOD 2 MG TAB PO SCH (17:33)
[2017-09-23] MEDS: cefTRIAXone INJ 1,000 MG in SODIUM CHLORIDE 0.9% INJ 100 ML IV SCH (17:34)
--- NOTE | 2017-09-23 18:00 | HHI.NPPN ---
Subjective Additional Remarks no acute complaints Objective Data Data 09/23/17 09/24/17 19:00 07:00 # Voids 4 # Bowel Movements 1 Vital Signs Date Time Temp Pulse Resp B/P (MAP) Pulse Ox O2 Delivery O2 Flow Rate FiO2 09/23/17 17:57 101 09/23/17 16:00 97.0 105 20 95/60 (72) 96 09/23/17 12:00 96.8 104 20 93/59 (70) 95 09/23/17 12:00 104 09/23/17 08:56 96 Nasal Cannula 3.00 09/23/17 08:00 109 09/23/17 08:00 Nasal Cannula 3.00 09/23/17 08:00 98.4 105 20 96/62 (73) 95 09/23/17 04:01 110 09/23/17 04:00 97.8 111 20 103/81 (88) 94 09/23/17 01:01 98 Nasal Cannula 2.00 09/23/17 00:23 97.5 109 20 99/77 (84) 100 09/22/17 23:54 108 09/22/17 20:00 107 09/22/17 20:00 98.4 111 22 98/73 (81) 100 09/22/17 19:45 Nasal Cannula 2.00 Humidified 09/22/17 19:39 108 -: 09/23/17 0405 09/23/17 0405 Physical Exam General Appearance: No Acute Distress Eyes Eye Exam: Pupils Equal Throat Throat Exam: Oral Mucosa [place] & Moist Neck Neck Exam: Neck Supple Pulmonary Resp Exam: Clear Bilaterally Cardiology CV Exam: Regular, Normal Sinus Rhythm Gastrointestinal/Abdomen GI Exam: Soft, Non-Tender Integumentary Skin Exam: Dry, Intact Extremeties Extremities Exam: No Edema Neurologic Neuro Exam: Alert, Awake, Oriented Assessment/Plan Problem List: (1) Acute kidney injury ICD Codes: N17.9 - Acute kidney failure, unspecified Status: Acute Plan: DUONG likely due to vancomycin toxicity, possible post-infectious GN Urine eosinophils negative, complements wnl Creatinine improving from 1.7 -> 1.5 -> 1.5 today. Edema due to malnutrition, albumin level of 2 last week. Will start lasix 20mg IV BID with albumin for edema. (2) Prosthetic valve endocarditis ICD Codes: T82.6XXA - Infection and inflammatory reaction due to cardiac valve prosthesis, initial encounter Status: Acute Plan: septic endocarditis with strep viridans IV drug use, pulmonary emboli as well. Continues ampicillin per ID, started ceftriaxone. continue renal dosing antibiotics. (3) Peripheral arterial occlusive disease ICD Codes: I77.9 - Disorder of arteries and arterioles, unspecified Plan: seen with vascular, continue medical management Hold contrast studies as possible. (4) Hepatitis C ICD Codes: B19.20 - Unspecified viral hepatitis C without hepatic coma Status: Chronic Problem Qualifiers (1) Prosthetic valve endocarditis: Qualified Codes: T82.6XXA - Infection and inflammatory reaction due to cardiac valve prosthesis, initial encounter Caleb Webber MD Sep 23, 2017 18:00
[2017-09-23] MEDS: FUROSEMIDE 20 MG/2 ML VIAL IV PUSH SCH (19:14)
[2017-09-23] MEDS: ALBUMIN 25% INJ 100 ML IV SCH (19:14)
[2017-09-24] VITALS (13 sets, daily range): BP systolic 94–99; BP diastolic 57–79; PULSE 92–119; RESP 18–20; TEMP 97.4–100.3; O2SAT 91–97
[2017-09-24] MEDS: ACETAMINOPHEN 325 MG TAB PO PRN (01:19)
[2017-09-24] MEDS: HYDROmorphone HCL PF 2 MG/ML VIAL IV PUSH PRN ×6 (01:47→22:20)
[2017-09-24] MEDS: AMPICILLIN INJ 2,000 MG in SODIUM CHLORIDE 0.9% INJ 100 ML IV SCH ×4 (01:50→20:45)
[2017-09-24] MEDS: CHLORHEXIDINE GLUCONATE 2 % 1 PACK (2 CLOTHS) TOP SCH (03:41)
[2017-09-24] MEDS: ALBUMIN 25% INJ 100 ML IV SCH ×2 (06:21→17:36)
[2017-09-24 06:48] LABS: AUTOMATED NEUTROPHIL # 11.4 TH/MM3 (1.8-7.7); BASOPHIL # 0.2 TH/MM3 (0-0.2); BASOPHIL % 1.1 % (0.0-2.0); EOSINOPHIL # 0.2 TH/MM3 (0-0.4); EOSINOPHIL % 1.6 % (0.0-4.0); HEMATOCRIT 25.1 % (35.0-46.0); LYMPH % 8.5 % (9.0-44.0); LYMPHOCYTE # 1.2 TH/MM3 (1.0-4.8); MEAN CELL VOLUME 76.1 FL (80.0-100.0); MEAN CORPUSCULAR HEMOGLOBIN 24.3 PG (27.0-34.0); MEAN PLATELET VOLUME 8.1 FL (7.0-11.0); MONO % 6.9 % (0.0-8.0); NEUT % 81.9 % (16.0-70.0); PLATELET COUNT 211 TH/MM3 (150-450); RED CELL DISTRIBUTION WIDTH 23.1 % (11.6-17.2)
[2017-09-24 07:00] LABS: INTERNATIONAL NORMALIZED RATIO 3.7 RATIO; PROTHROMBIN TIME - PATIENT 37.5 SEC (9.8-11.6)
[2017-09-24 07:13] LABS: ALBUMIN 2.3 GM/DL (3.4-5.0); AST (GOT) 201 U/L (15-37); BICARBONATE 26.6 MEQ/L (21.0-32.0); BLOOD UREA NITROGEN 22 MG/DL (7-18); CHLORIDE 99 MEQ/L (98-107); CREATININE 1.62 MG/DL (0.50-1.00); GLOMERULAR FILTRATION RATE 36 ML/MIN (>89); GLUCOSE,RANDOM 116 MG/DL (74-106); SODIUM (NA) 134 MEQ/L (136-145)
[2017-09-24 07:15] LABS: ALKALINE PHOSPHATASE 150 U/L (45-117); ALT (GPT) 93 U/L (10-53); TOTAL BILIRUBIN ADULT 0.7 MG/DL (0.2-1.0); TOTAL PROTEIN 6.9 GM/DL (6.4-8.2)
[2017-09-24] MEDS: DOCUSATE SODIUM 50 MG/SENNA 8.6 MG TAB PO SCH ×2 (08:44→20:43)
[2017-09-24] MEDS: FUROSEMIDE 20 MG/2 ML VIAL IV PUSH SCH ×2 (08:44→17:36)
[2017-09-24] MEDS: SODIUM CHLORIDE 0.9% FLUSH 10 ML FLUSH IV FLUSH SCH ×2 (08:45→20:45)
[2017-09-24] MEDS: POTASSIUM CHLORIDE 10 MEQ CONTROLLED RELEASE TAB PO SCH ×2 (08:45→20:44)
--- NOTE | 2017-09-24 10:38 | HHI.NPPN ---
Subjective History of Present Illness This is a 37-year-old female with past medical history of IV drug abuse, history of hepatitis C, narcotic dependency, came to the hospital with complaint of shortness of breath and swelling. Nephrology called to see the patient because of elevated BUN and creatinine. The patient has creatinine of 4.5 on admission which improved and it was staying in the range of 0.6-0.8 until 6 days ago, then it started going up again and now it is 1.7. The patient has increased swelling of the legs and the patient was diagnosed with endocarditis and she has blood culture positive for Strep viridans. Patient has been following with the ID and she was getting furosemide, which was stopped today this morning because of increased creatinine and she was on vancomycin and rifampicin. The last dose of vancomycin seems to be given possibly on 09/09/2017 or even later, but her level was high and the highest level we have was 25.8, which was on 09/09/2017 but on 09/15/2017 it was 23.9. The patient has been actively using IV drugs before she came to the hospital and noticed to have more swelling in her legs. She is complaining of generalized body pain. There is no nausea, vomiting. Denies any diarrhea. Her appetite is normal. Additional Remarks Reports mild SOB. Bilateral lower extremity edema. (Deena Oh) Review of Systems Respiratory Lungs: SOB (Deena Oh) Cardiovascular Cardiac Remarks Denies CP (Deena Oh) Gastrointestinal GI Remarks denies abdominal pain (Deena Oh) Objective Data Data Vital Signs Date Time Temp Pulse Resp B/P (MAP) Pulse Ox O2 Delivery O2 Flow Rate FiO2 09/24/17 08:10 97.4 94 18 96/71 (79) 94 09/24/17 04:19 97.7 107 18 97/67 (77) 93 09/24/17 04:01 100 09/24/17 01:16 100.3 09/24/17 00:40 112 09/24/17 00:00 97.8 104 20 98/70 (79) 96 09/23/17 20:19 99 Nasal Cannula 2.00 09/23/17 20:00 Nasal Cannula 3.00 Humidified 3/18/18 20:00 98.6 110 21 100/75 (83) 98 09/23/17 17:57 101 09/23/17 16:00 97.0 105 20 95/60 (72) 96 09/23/17 14:03 2 09/23/17 12:00 96.8 104 20 93/59 (70) 95 09/23/17 12:00 104 (MichaelenrikeAshley menjivarne PatienceAramis GARCIAP) -: 09/24/17 0615 09/24/17 0615 Imaging Last Impressions Chest X-Ray 09/21/17 0000 Signed Impressions: Service Date/Time: Thursday, September 21, 2017 13:30 - CONCLUSION: 1. Right basilar patchy discussed with probable pneumonia. 2. Cardiomegaly. Jerald Licona MD Head CT 09/08/17 0000 Signed Impressions: Service Date/Time: Friday, September 08, 2017 10:22 - CONCLUSION: 1. Focal area of decreased density involving the right parietal lobe. As a new finding from the prior exam. This could relate to a small infarct. MRI of the brain with gadolinium suggested to further evaluate. 2. Small lacunar infarction involving the left centrum semiovale. Ananth Ponce Jr., MD CT Angiography 09/08/17 0000 Signed Impressions: Service Date/Time: Friday, September 08, 2017 10:28 - CONCLUSION: There extensive pulmonary emboli bilaterally. There is near complete cut off of the right lower lobe pulmonary artery. Prominent filling defects on the left as well. These findings were relayed to Dr. Dominguez immediately at the completion of the study. Scattered pulmonary infiltrates, small pleural effusion and extensive mediastinal lymphadenopathy as described above. Karsten Crowder MD Brain MRI 09/08/17 0000 Signed Impressions: Service Date/Time: Friday, September 08, 2017 18:04 - CONCLUSION: Deterioration in the appearance of the scan. At least 3 focal areas of abnormal contrast enhancement are present scattered to in both hemispheres. Given the history this most likely represents developing areas cerebritis. Exam is compromised by an uncooperative patient and motion artifact. These 2 factors make detection of other abnormalities such as cortical cephalitis and meningitis difficult to exclude. Cannot exclude hemorrhagic lesions as well. There is no mass effect evident. Geremias Mauricio MD Chest CT 09/03/17 0000 Signed Impressions: Service Date/Time: Sunday, September 03, 2017 12:41 - CONCLUSION: 1. There are at least 5 pulmonary nodules present bilaterally with the largest measuring 19 mm. None demonstrate cavitation but it is possible that these represent septic emboli. Suggest followup to assess for change. 2. Splenomegaly with subtle wedge-shaped areas of low-density in the mid spleen which could represent infarcts. 3. Mild cardiomegaly in this patient post aortic valve replacement. Low density of the cardiac blood pool suggests anemia. Adalid Galo MD Aorta w/Runoff CTA 09/02/17 0000 Signed Impressions: Service Date/Time: Saturday, September 02, 2017 12:47 - CONCLUSION: Left renal cortical infarction. 5-6 cm length total occlusion of the left superficial femoral artery in the proximal thigh. Nodular parenchymal opacities in the lung bases bilaterally See above discussion. Adlaid Dallas MD Renal Ultrasound 09/01/17 0000 Signed Impressions: Service Date/Time: Friday, September 01, 2017 10:53 - CONCLUSION: 1. No evidence of hydronephrosis. 2. Thickening of the urinary bladder wall a 1.1 cm. 3. Prominent splenomegaly. Baldemar Pineda MD Breast Ultrasound 09/01/17 0000 Signed Impressions: Service Date/Time: Friday, September 01, 2017 10:48 - CONCLUSION: Negative targeted right breast ultrasound examination. Adalid Haney MD Lower Extremity Ultrasound 08/31/17 0000 Signed Impressions: Service Date/Time: Thursday, August 31, 2017 21:22 - CONCLUSION: 1. No sonographic evidence for lower extremity DVT. 2. Incidental note of bilateral inguinal adenopathy with the largest on the right measuring 3.3 cm and the largest on the left measuring 2.6 cm. This finding is nonspecific but is typically reactive in etiology. Luis Leija MD (Deena Oh) Physical Exam General Appearance: No Acute Distress (Deena Oh) Eyes Eye Exam: Pupils Equal (Deena OhP) Throat Throat Exam: Oral Mucosa Peshtigo & Moist (Deena OhP) Neck Neck Exam: Neck Supple (Deena Oh SENIOR STATISTICAL PROGRAMMER) Pulmonary Resp Exam: Clear Bilaterally (Deena OhP) Cardiology CV Exam: Regular, Normal Sinus Rhythm (Deena Oh) Gastrointestinal/Abdomen GI Exam: Soft, Non-Tender (Deena Oh) Integumentary Skin Exam: Dry, Intact (Deena Oh) Extremeties Extremities Exam: Moderate Edema (Deena Oh) Neurologic Neuro Exam: Alert, Awake, Oriented (Deena Oh) Psychiatric Psych Exam: Appropriate Responses (Deena Oh) Assessment/Plan Discussed Condition With: Patient Assessment Summary: DUONG/Acute Renal Failure Problem List: (1) Acute kidney injury ICD Codes: N17.9 - Acute kidney failure, unspecified Status: Acute Plan: DUONG likely due to vancomycin toxicity, possible post-infectious GN Urine eosinophils negative, complements wnl Creatinine stable from 1.7 -> 1.5 -> 1.6 today. Plan Continue lasix 20mg IV BID with albumin for edema. Continue to monitor BMP and UOP Avoid nephrotoxins. (2) Prosthetic valve endocarditis ICD Codes: T82.6XXA - Infection and inflammatory reaction due to cardiac valve prosthesis, initial encounter Status: Acute Plan: septic endocarditis with strep viridans IV drug use, pulmonary emboli as well. Continues ampicillin per ID, started ceftriaxone. continue renal dosing antibiotics. (3) Peripheral arterial occlusive disease ICD Codes: I77.9 - Disorder of arteries and arterioles, unspecified Plan: seen with vascular, continue medical management Hold contrast studies as possible. (4) Hepatitis C ICD Codes: B19.20 - Unspecified viral hepatitis C without hepatic coma Status: Chronic (Deena Oh) Problem List: (1) Acute kidney injury ICD Codes: N17.9 - Acute kidney failure, unspecified Status: Acute Plan: DUONG likely due to vancomycin toxicity, post-infectious GN is unlikely. Possibility of ATN or pre renal. Urine eosinophils negative, complements wnl Creatinine stable from 1.7 -> 1.5 -> 1.6 today. Plan Continue lasix 20mg IV BID with albumin for edema. Continue to monitor BMP and UOP Avoid nephrotoxins. Patient seen and examined, agree with above. (2) Prosthetic valve endocarditis ICD Codes: T82.6XXA - Infection and inflammatory reaction due to cardiac valve prosthesis, initial encounter Status: Acute Plan: septic endocarditis with strep viridans IV drug use, pulmonary emboli as well. Continues ampicillin per ID, started ceftriaxone. continue renal dosing antibiotics. (3) Peripheral arterial occlusive disease ICD Codes: I77.9 - Disorder of arteries and arterioles, unspecified Plan: seen with vascular, continue medical management Hold contrast studies as possible. (4) Hepatitis C ICD Codes: B19.20 - Unspecified viral hepatitis C without hepatic coma Status: Chronic (Randal Salinas MD) Problem Qualifiers (1) Prosthetic valve endocarditis: Qualified Codes: T82.6XXA - Infection and inflammatory reaction due to cardiac valve prosthesis, initial encounter Deena Oh Sep 24, 2017 10:38 Randal Salinas MD Sep 24, 2017 19:07
[2017-09-24] MEDS: RESP: ALBUTEROL 2.5 MG/3 ML NEB (PRN) NEB ×2 (12:57→21:49)
--- NOTE | 2017-09-24 13:15 | RADRPT ---
EXAM DATE/TIME: 09/24/2017 11:16 INDICATIONS : Patient needs Right central line exchanged. MEDICAL HISTORY : 1. Hep C 2. IV drug use 3. aortic valve replaced in 2010 and 2015 4. bacterial endocarditis SURGICAL HISTORY : 1. left forarm surgery ENCOUNTER: Initial ACUITY: 2 days PAIN SCORE: 0/10 FLUORO TIME: 0.5 minutes IMAGE SERIES: 2 ACCESS: Right DEVICE(S): 1.) 7 [place] triple lumen 16 cm Arrow central line PROCEDURE: CENTRAL VENOUS CATHETER REPLACEMENT, RT 1. Fluoroscopically guided central venous catheter exchange. The risks, benefits and alternatives to the procedure were explained and verbal and written consent w as obtained. The site was prepped in sterile fashion. Full sterile technique was used, including ca p, mask, sterile gloves and gown and a large sterile sheet. Hand hygiene and 2% chlorhexidine and/or betadine/alcohol prep was utilized per protocol for cutaneous antisepsis. The skin and subcutaneous tissues were infiltrated with local anesthetic solution. With fluoroscopic guidance the previously placed central venous catheter was exchanged for the prescr ibed catheter as above. Post procedure image demonstrates satisfactory position of the tube. The cath eter was sutured in place. CONCLUSION: Uncomplicated venous catheter change as above. Luis Leija MD on September 24, 2017 at 13:11 Board Certified Radiologist. This report was verified electronically.
--- NOTE | 2017-09-24 15:42 | HHI.PR ---
Subjective Remarks Patient denies cp, mild sob Denies fevers or chills Bp low 90's systolic Objective Vitals Vital Signs Date Time Temp Pulse Resp B/P (MAP) Pulse Ox O2 Delivery O2 Flow Rate FiO2 09/24/17 12:10 97.8 108 18 94/73 (80) 95 09/24/17 08:10 97.4 94 18 96/71 (79) 94 09/24/17 08:00 92 09/24/17 08:00 Nasal Cannula 3.00 09/24/17 04:19 97.7 107 18 97/67 (77) 93 09/24/17 04:01 100 09/24/17 01:16 100.3 09/24/17 00:40 112 09/24/17 00:00 97.8 104 20 98/70 (79) 96 09/23/17 20:19 99 Nasal Cannula 2.00 09/23/17 20:00 Nasal Cannula 3.00 Humidified 09/23/17 20:00 98.6 110 21 100/75 (83) 98 09/23/17 17:57 101 09/23/17 16:00 97.0 105 20 95/60 (72) 96 I/O 09/23/17 09/23/17 09/23/17 09/24/17 09/24/17 09/24/17 07:00 15:00 23:00 07:00 15:00 23:00 Intake Total 1115 ml 210 ml 790 ml Balance 1115 ml 210 ml 790 ml Intake Oral 1000 ml 580 ml IV Total 115 ml 210 ml 210 ml # Voids 3 4 5 # Bowel Movements 2 1 Result Diagram: 09/24/17 0615 09/24/17 0615 Imaging Last Impressions Catheter Placement X-Ray 09/24/17 0000 Signed Impressions: Service Date/Time: Sunday, September 24, 2017 11:16 - CONCLUSION: Uncomplicated venous catheter change as above. Luis Leija MD Chest X-Ray 09/21/17 0000 Signed Impressions: Service Date/Time: Thursday, September 21, 2017 13:30 - CONCLUSION: 1. Right basilar patchy discussed with probable pneumonia. 2. Cardiomegaly. Jerald Licona MD Head CT 09/08/17 0000 Signed Impressions: Service Date/Time: Friday, September 08, 2017 10:22 - CONCLUSION: 1. Focal area of decreased density involving the right parietal lobe. As a new finding from the prior exam. This could relate to a small infarct. MRI of the brain with gadolinium suggested to further evaluate. 2. Small lacunar infarction involving the left centrum semiovale. Ananth Ponce Jr., MD CT Angiography 09/08/17 0000 Signed Impressions: Service Date/Time: Friday, September 08, 2017 10:28 - CONCLUSION: There extensive pulmonary emboli bilaterally. There is near complete cut off of the right lower lobe pulmonary artery. Prominent filling defects on the left as well. These findings were relayed to Dr. Dominguez immediately at the completion of the study. Scattered pulmonary infiltrates, small pleural effusion and extensive mediastinal lymphadenopathy as described above. Karsten Crowder MD Brain MRI 09/08/17 0000 Signed Impressions: Service Date/Time: Friday, September 08, 2017 18:04 - CONCLUSION: Deterioration in the appearance of the scan. At least 3 focal areas of abnormal contrast enhancement are present scattered to in both hemispheres. Given the history this most likely represents developing areas cerebritis. Exam is compromised by an uncooperative patient and motion artifact. These 2 factors make detection of other abnormalities such as cortical cephalitis and meningitis difficult to exclude. Cannot exclude hemorrhagic lesions as well. There is no mass effect evident. Geremias Mauricio MD Chest CT 09/03/17 0000 Signed Impressions: Service Date/Time: Sunday, September 03, 2017 12:41 - CONCLUSION: 1. There are at least 5 pulmonary nodules present bilaterally with the largest measuring 19 mm. None demonstrate cavitation but it is possible that these represent septic emboli. Suggest followup to assess for change. 2. Splenomegaly with subtle wedge-shaped areas of low-density in the mid spleen which could represent infarcts. 3. Mild cardiomegaly in this patient post aortic valve replacement. Low density of the cardiac blood pool suggests anemia. Adalid Galo MD Aorta w/Runoff CTA 09/02/17 0000 Signed Impressions: Service Date/Time: Saturday, September 02, 2017 12:47 - CONCLUSION: Left renal cortical infarction. 5-6 cm length total occlusion of the left superficial femoral artery in the proximal thigh. Nodular parenchymal opacities in the lung bases bilaterally See above discussion. Adalid Dallas MD Renal Ultrasound 09/01/17 0000 Signed Impressions: Service Date/Time: Friday, September 01, 2017 10:53 - CONCLUSION: 1. No evidence of hydronephrosis. 2. Thickening of the urinary bladder wall a 1.1 cm. 3. Prominent splenomegaly. Baldemar Pineda MD Breast Ultrasound 09/01/17 0000 Signed Impressions: Service Date/Time: Friday, September 01, 2017 10:48 - CONCLUSION: Negative targeted right breast ultrasound examination. Adalid Haney MD Lower Extremity Ultrasound 08/31/17 0000 Signed Impressions: Service Date/Time: Thursday, August 31, 2017 21:22 - CONCLUSION: 1. No sonographic evidence for lower extremity DVT. 2. Incidental note of bilateral inguinal adenopathy with the largest on the right measuring 3.3 cm and the largest on the left measuring 2.6 cm. This finding is nonspecific but is typically reactive in etiology. Luis Leija MD Objective Remarks AAOx3 NAD Clear lungs BL S1S2 4/6 systolic ejection murmur +3 BL lower extremity edema without erythema. Medications and IVs Current Medications Medications (Trade) Dose Ordered Sig/Jessica Route Start Time Stop Time Status Last Admin (NS Flush) 2 ml UNSCH PRN IV FLUSH 08/31/17 22:00 09/17/17 01:03 (NS Flush) 2 ml BID IV FLUSH 09/01/17 09:00 09/24/17 08:45 (Tylenol) 650 mg Q6H PRN PO 08/31/17 22:00 09/24/17 01:19 (Zofran Inj) 4 mg Q6H PRN IV PUSH 08/31/17 22:00 09/13/17 21:22 (Restoril) 15 mg HS PRN PO 08/31/17 22:00 09/11/17 22:08 Miscellaneous Information 1 Q361D XX 08/31/17 22:00 (Chlorhexidine 2% Cloth) 3 pack Taper DAILY@04 TOP 09/01/17 04:00 08/28/18 03:59 09/11/17 03:54 (Chlorhexidine 2% Cloth) 3 pack UNSCH PRN TOP 08/31/17 22:00 (Armida-Colace) 1 tab BID PO 09/01/17 09:00 09/24/17 08:44 (Milk Of Magnesia Liq) 30 ml Q12H PRN PO 08/31/17 22:00 (Senokot) 17.2 mg Q12H PRN PO 08/31/17 22:00 (Dulcolax Supp) 10 mg DAILY PRN RECTAL 08/31/17 22:00 (Lactulose Liq) 30 ml DAILY PRN PO 08/31/17 22:00 Ampicillin Sodium 2000 mg/Sodium Chloride 100 ml @ 400 mls/hr Q6H IV 09/01/17 14:00 09/24/17 14:17 (Imodium) 2 mg Q4H PRN PO 09/03/17 16:15 09/05/17 14:32 (Albuterol Neb) 2.5 mg Q2HR NEB PRN NEB 09/04/17 11:30 09/24/17 12:57 ([place] 10-325 Mg) 1 tab Q4H PRN PO 09/09/17 15:00 09/14/17 05:02 (Dilaudid Pf Inj) 1 mg Q4H PRN IV PUSH 09/12/17 19:00 09/24/17 14:17 (KCl) 60 meq Q12HR PO 09/19/17 09:45 09/24/17 08:45 (Coumadin) 2 mg DAILY@16 PO 09/21/17 18:45 Future Hold 09/23/17 17:33 Ceftriaxone Sodium 1000 mg/ Sodium Chloride 100 ml @ 200 mls/hr Q24H IV 09/23/17 16:00 09/23/17 17:34 (Lasix Inj) 20 mg BID@,18 IV PUSH 09/23/17 18:00 09/24/17 08:44 Albumin Human 100 ml @ 60 mls/hr Q12H IV 09/23/17 18:00 09/24/17 06:21 Urinary Catheter: No Vascular Central Line Catheter: Yes Assessment to: Continue Date of Insertion: Sep 24, 2017 Line: Central Venous Catheter Side: Right Location: Internal, Jugular A/P Problem List: (1) Prosthetic valve endocarditis ICD Code: T82.6XXA - Infection and inflammatory reaction due to cardiac valve prosthesis, initial encounter Status: Acute (2) Bacteremia ICD Code: R78.81 - Bacteremia (3) Septic pulmonary embolism ICD Code: I26.90 - Septic pulmonary embolism without acute cor pulmonale Status: Acute (4) IVDU (intravenous drug user) ICD Code: F19.90 - Other psychoactive substance use, unspecified, uncomplicated (5) Anemia ICD Code: D64.9 - Anemia, unspecified Status: Chronic (6) DUONG (acute kidney injury) ICD Code: N17.9 - Acute kidney failure, unspecified Plan: Creatinine slightly worsened from 1.52-1.57. Nephrology consulted. Possible ATN from vancomycin toxicity or from infection. Urine eosinophils negative. Continue to hold diuretics as per nephrology. Nephrology recommends waiting for some improvement in renal function before some diuretics could be administered. Continue to monitor BUN and creatinine, avoid nephrotoxins. 09/24 As per Nephrology continue Lasix 10 mg IV BID with albumin. Creatinine slightly elevated from 1.57 - 1.62. Assessment and Plan (1) Prosthetic valve endocarditis Plan: Continue antibiotics as per ID. Patient on IV ampicillin. Continue to hold coumadin until INR < 3 - goal 2-3. 09/24 INR elevated from 3.1 to 3.7. Hematology had decreased dose of Coumadin, I will hold and continue to monitor PT/INR. Continue Ampicllin, Rocephin added for pulmonary coverage on 09/23 as per ID. Continue antibiotics as per ID recommendations. (2) Bacteremia Plan: Blood cultures obtained on 08/31 growing strep viridans. Subsequent repeat blood cultures negative. 09/24 sp Exchange of Right IJ central line. (3) Septic pulmonary embolism Plan: As observed on a CT angiography of the chest obtained on 09/08/17. chocardiogram on 09/08 showed an estimated EF of 50-55%. ++severe tricuspid regurgitation with prosthesis in place. ++2 x 4 cm mobile vegetation was seen on the valve. The right atrium and right ventricle were normal in size and function Hematology following. Management of Coumadin as per hematology recommendations. Goal INR 2-3. (4) IVDU (intravenous drug user) Plan: Counseled on drug cessation. (5) Anemia Plan: Likely secondary to inflammation/infection. No evidence of bleeding or hemolysis. Monitor hemoglobin and transfuse as needed. Problem Qualifiers (1) Prosthetic valve endocarditis: Qualified Codes: T82.6XXA - Infection and inflammatory reaction due to cardiac valve prosthesis, initial encounter (2) Anemia: Qualified Codes: D63.8 - Anemia in other chronic diseases classified elsewhere Jaylen Livingston MD Sep 24, 2017 15:42
--- NOTE | 2017-09-24 16:14 | PD.ONC.PN ---
Subjective Subjective Remarks Tmax 100.3 overnight Pt reports she noticed some blood on tissue when wiping States she does not think it is due to her menstrual cycle, however she states her cycle is not regular. Breathing is "about the same" Objective Data Date Time Temp Pulse Resp B/P (MAP) Pulse Ox O2 Delivery O2 Flow Rate FiO2 09/24/17 12:10 97.8 108 18 94/73 (80) 95 09/24/17 08:10 97.4 94 18 96/71 (79) 94 09/24/17 08:00 92 09/24/17 08:00 Nasal Cannula 3.00 09/24/17 04:19 97.7 107 18 97/67 (77) 93 09/24/17 04:01 100 09/24/17 01:16 100.3 09/24/17 00:40 112 09/24/17 00:00 97.8 104 20 98/70 (79) 96 09/23/17 20:19 99 Nasal Cannula 2.00 09/23/17 20:00 Nasal Cannula 3.00 Humidified 09/23/17 20:00 98.6 110 21 100/75 (83) 98 09/23/17 17:57 101 09/24/17 09/24/17 09/24/17 07:00 15:00 23:00 Intake Total 790 ml Balance 790 ml Result Diagram: 09/24/1715 09/24/17 0615 Laboratory Results Laboratory Tests Test 09/24/17 06:15 White Blood Count 14.0 TH/MM3 Red Blood Count 3.30 MIL/MM3 Hemoglobin 8.0 GM/DL Hematocrit 25.1 % Mean Corpuscular Volume 76.1 FL Mean Corpuscular Hemoglobin 24.3 PG Mean Corpuscular Hemoglobin Concent 32.0 % Red Cell Distribution Width 23.1 % Platelet Count 211 TH/MM3 Mean Platelet Volume 8.1 FL Neutrophils (%) (Auto) 81.9 % Lymphocytes (%) (Auto) 8.5 % Monocytes (%) (Auto) 6.9 % Eosinophils (%) (Auto) 1.6 % Basophils (%) (Auto) 1.1 % Neutrophils # (Auto) 11.4 TH/MM3 Lymphocytes # (Auto) 1.2 TH/MM3 Monocytes # (Auto) 1.0 TH/MM3 Eosinophils # (Auto) 0.2 TH/MM3 Basophils # (Auto) 0.2 TH/MM3 CBC Comment DIFF FINAL Differential Comment Prothrombin Time 37.5 SEC Prothromb Time International Ratio 3.7 RATIO Blood Urea Nitrogen 22 MG/DL Creatinine 1.62 MG/DL Random Glucose 116 MG/DL Total Protein 6.9 GM/DL Albumin 2.3 GM/DL Calcium Level 8.0 MG/DL Alkaline Phosphatase 150 U/L Aspartate Amino Transf (AST/SGOT) 201 U/L Alanine Aminotransferase (ALT/SGPT) 93 U/L Total Bilirubin 0.7 MG/DL Sodium Level 134 MEQ/L Potassium Level 4.0 MEQ/L Chloride Level 99 MEQ/L Carbon Dioxide Level 26.6 MEQ/L Anion Gap 8 MEQ/L Estimat Glomerular Filtration Rate 36 ML/MIN Imaging Studies Last 24 hours Impressions Catheter Placement X-Ray 09/24/17 0000 Signed Impressions: Service Date/Time: Sunday, September 24, 2017 11:16 - CONCLUSION: Uncomplicated venous catheter change as above. Luis Leija MD Administered Medications Medications (Trade) Dose Ordered Sig/Jessica Route PRN Reason Start Time Stop Time Status Last Admin Dose Admin Sodium Chloride (NS Flush) 2 ml UNSCH PRN IV FLUSH FLUSH AFTER USING IV ACCESS 08/31/17 22:00 09/17/17 01:03 Sodium Chloride (NS Flush) 2 ml BID IV FLUSH 09/01/17 09:00 09/24/17 08:45 Acetaminophen (Tylenol) 650 mg Q6H PRN PO fever 08/31/17 22:00 09/24/17 01:19 Ondansetron HCl (Zofran Inj) 4 mg Q6H PRN IV PUSH NAUSEA OR VOMITING 08/31/17 22:00 09/13/17 21:22 Temazepam (Restoril) 15 mg HS PRN PO INSOMNIA 08/31/17 22:00 09/11/17 22:08 Chlorhexidine Gluconate (Chlorhexidine 2% Cloth) 3 pack Taper DAILY@04 TOP 09/01/17 04:00 08/28/18 03:59 09/11/17 03:54 Senna/Docusate Sodium (Armida-Colace) 1 tab BID PO 09/01/17 09:00 09/24/17 08:44 Ampicillin Sodium 2000 mg/Sodium Chloride 100 ml @ 400 mls/hr Q6H IV 09/01/17 14:00 09/24/17 14:17 Loperamide HCl (Imodium) 2 mg Q4H PRN PO Diarrhea 09/03/17 16:15 09/05/17 14:32 Albuterol Sulfate (Albuterol Neb) 2.5 mg Q2HR NEB PRN NEB dyspnea 09/04/17 11:30 09/24/17 12:57 Acetaminophen/ Hydrocodone Bitart ([place] 10-325 Mg) 1 tab Q4H PRN PO pain 1-5 09/09/17 15:00 09/14/17 05:02 Hydromorphone HCl (Dilaudid Pf Inj) 1 mg Q4H PRN IV PUSH PAIN SCALE 6 TO 10 09/12/17 19:00 09/24/17 14:17 Potassium Chloride (KCl) 60 meq Q12HR PO 09/19/17 09:45 09/24/17 08:45 Warfarin Sodium (Coumadin) 2 mg DAILY@16 PO 09/21/17 18:45 Future Hold 09/23/17 17:33 Ceftriaxone Sodium 1000 mg/ Sodium Chloride 100 ml @ 200 mls/hr Q24H IV 09/23/17 16:00 09/23/17 17:34 Furosemide (Lasix Inj) 20 mg BID@,18 IV PUSH 09/23/17 18:00 09/24/17 08:44 Albumin Human 100 ml @ 60 mls/hr Q12H IV 09/23/17 18:00 09/24/17 06:21 Objective Remarks GENERAL: Overweight younger female sitting in chair at bedside in no obvious distress SKIN: Warm and dry. HEAD: Normocephalic. EYES: No scleral icterus. No injection or drainage. NECK: No JVD or lymphadenopathy. CARDIOVASCULAR: Tachycardia; mild systolic murmur noted RESPIRATORY: Coarse lung sounds GASTROINTESTINAL: Abdomen soft, non-tender, nondistended. EXTREMITIES: Generalized edema to BLE MUSCULOSKELETAL: Adequate muscle tone. NEUROLOGICAL: No obvious focal deficit. Awake and oriented x3. Assessment/Plan Problem List: (1) arterial blood clot Plan: 09/24: Pt's INR 3.7 today. Hold coumadin today and resume at 1mg when closer to 3. 09/21: INR 3.9 today. hold coumadin. goal INR between 2.0-3.0 09/20: INR =3.8. continue to hold coumadin until closer to 2.0-3.0 than resume at lower dose. will ask nurses to perform doppler on patient's pedal pulses q shift and document. 09/19/17. INR >4.0, Argatroban stopped. PT/PTT checked off argatroban, noted prolonged PTT. (2) Microcytic anemia ICD Codes: D50.9 - Iron deficiency anemia, unspecified Plan: --likely d/t inflammation/infection. no evidence of bleeding or hemolysis. --monitor and transfuse as needed. (3) Bacterial endocarditis ICD Codes: I33.0 - Acute and subacute infective endocarditis Status: Acute Plan: -on ampicillin, ID following. (4) Acute septic pulmonary embolism ICD Codes: I26.90 - Septic pulmonary embolism without acute cor pulmonale Plan: -- echocardiogram on 09/08 showed an estimated EF of 50-55%. ++severe tricuspid regurgitation with prosthesis in place. ++2 x 4 cm mobile vegetation was seen on the valve. The right atrium and right ventricle were normal in size and function Assessment 36y/o female admitted with recurrent endocarditis. hematology consulted for anticoagulation assistance. h/o Recurrent bacterial endocarditis, bacteremia, history of prosthetic aortic valve and subsequent redo, chronic active hepatitis C, intravenous drug use, microcytic anemia, consistent with iron deficiency, left lower extremity arterial event, bacterial endocarditis with viridans streptococcus. HPI (brought forward for continuity of care): history of IV drug abuse and recurrent endocarditis. had a relapse of her activity. has history of pulmonary embolism and infected valves. +significant congestive heart failure and presented to the emergency room on 08/31/2017, with sepsis. is followed by Infectious Disease for her endocarditis. previously received antibiotic therapy for enterococcus faecalis and staph aureus. There is questionable compliance. Her current blood culture from 08/31/2017, shows viridans streptococcus. Two out of two bottles were positive. She is on ampicillin and gentamicin. course is complicated by cold left lower extremity, evaluated by Vascular Surgery. 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 There is satisfactory calf runoff present. For this reason , conservative management with anticoagulation is continued. was placed on unfractionated heparin. Her heparin dose has been titrated from 1000 units/ hour to 2500 units/hour with a PTT remaining subtherapeutic. Her last PTT is 32 seconds from 09/06/2017, at 2 p.m. For this reason, Hematology/Oncology was consulted. Plan 1. Coumadin on hold today as INR increasing. 2. Resume coumadin at 1mg tomorrow if INR closer to 3. Attending Statement Agree with above, titrate anticoagulation goal INR 2-3, monitor for bleeding. Cyndi Carranza Sep 24, 2017 16:14 Myra Silva MD Sep 24, 2017 17:48
[2017-09-24] MEDS: cefTRIAXone INJ 1,000 MG in SODIUM CHLORIDE 0.9% INJ 100 ML IV SCH (17:35)
[2017-09-24] MEDS: SODIUM CHLORIDE 0.9% FLUSH 10 ML FLUSH IV FLUSH PRN (22:21)
[2017-09-25] VITALS (11 sets, daily range): BP systolic 90–105; BP diastolic 53–74; PULSE 107–118; RESP 18–22; TEMP 97.8–100.9; O2SAT 92–98
[2017-09-25] MEDS: AMPICILLIN INJ 2,000 MG in SODIUM CHLORIDE 0.9% INJ 100 ML IV SCH ×4 (02:21→20:26)
[2017-09-25] MEDS: SODIUM CHLORIDE 0.9% FLUSH 10 ML FLUSH IV FLUSH PRN ×3 (02:22→22:44)
[2017-09-25] MEDS: HYDROmorphone HCL PF 2 MG/ML VIAL IV PUSH PRN ×6 (02:22→22:43)
[2017-09-25] MEDS: CHLORHEXIDINE GLUCONATE 2 % 1 PACK (2 CLOTHS) TOP SCH (04:00)
[2017-09-25] MEDS: RESP: ALBUTEROL 2.5 MG/3 ML NEB (PRN) NEB ×2 (05:55→13:04)
[2017-09-25] MEDS: ALBUMIN 25% INJ 100 ML IV SCH ×2 (06:23→17:36)
[2017-09-25 07:17] LABS: BASOPHIL # 0.1 TH/MM3 (0-0.2); BASOPHIL % 0.9 % (0.0-2.0); EOSINOPHIL # 0.1 TH/MM3 (0-0.4); EOSINOPHIL % 0.9 % (0.0-4.0); HEMATOCRIT 25.1 % (35.0-46.0); HEMOGLOBIN 7.9 GM/DL (11.6-15.3); LYMPH % 9.2 % (9.0-44.0); LYMPHOCYTE # 1.4 TH/MM3 (1.0-4.8); MEAN CELL VOLUME 75.9 FL (80.0-100.0); MEAN CORPUSCULAR HGB CONC 31.6 % (32.0-36.0); MEAN PLATELET VOLUME 8.2 FL (7.0-11.0); MONO % 6.7 % (0.0-8.0); NEUT % 82.3 % (16.0-70.0); PLATELET COUNT 196 TH/MM3 (150-450); RED BLOOD COUNT 3.31 MIL/MM3 (4.00-5.30); RED CELL DISTRIBUTION WIDTH 23.5 % (11.6-17.2); WHITE BLOOD COUNT 14.6 TH/MM3 (4.0-11.0)
[2017-09-25 07:21] LABS: INTERNATIONAL NORMALIZED RATIO 3.1 RATIO; PROTHROMBIN TIME - PATIENT 30.9 SEC (9.8-11.6)
[2017-09-25] MEDS: POTASSIUM CHLORIDE 10 MEQ CONTROLLED RELEASE TAB PO SCH ×2 (08:07→20:24)
[2017-09-25] MEDS: FUROSEMIDE 20 MG/2 ML VIAL IV PUSH SCH ×2 (08:07→17:37)
[2017-09-25] MEDS: SODIUM CHLORIDE 0.9% FLUSH 10 ML FLUSH IV FLUSH SCH ×2 (08:07→20:24)
[2017-09-25] MEDS: DOCUSATE SODIUM 50 MG/SENNA 8.6 MG TAB PO SCH ×2 (08:18→20:24)
--- NOTE | 2017-09-25 12:29 | PD.ONC.PN ---
Subjective Subjective Remarks Tmax 100.9 overnight. Patient resting in room. she says she feels awful. her legs are swollen more then they have ever been before. she has difficulty speaking d/t her dyspnea. her feet hurt d/t the swelling. Objective Data Date Time Temp Pulse Resp B/P (MAP) Pulse Ox O2 Delivery O2 Flow Rate FiO2 09/25/17 08:00 97.8 115 20 93/61 (72) 92 09/25/17 08:00 112 09/25/17 04:00 100.9 117 22 103/53 (70) 95 09/25/17 03:43 118 09/25/17 00:00 99.0 117 20 105/57 (73) 96 09/24/17 23:41 114 09/24/17 21:51 Nasal Cannula 2.00 09/24/17 20:00 Nasal Cannula 3.00 09/24/17 20:00 99.8 119 20 99/57 (71) 91 09/24/17 19:43 114 09/24/17 19:00 22 09/24/17 16:10 97.8 109 18 98/79 (85) 97 09/24/17 16:00 106 09/25/17 09/25/17 09/25/17 07:00 15:00 23:00 Intake Total 960 ml Output Total 850 ml Balance 110 ml Result Diagram: 09/25/17 0625 09/24/17 0615 Laboratory Results Laboratory Tests Test 09/25/17 06:25 White Blood Count 14.6 TH/MM3 Red Blood Count 3.31 MIL/MM3 Hemoglobin 7.9 GM/DL Hematocrit 25.1 % Mean Corpuscular Volume 75.9 FL Mean Corpuscular Hemoglobin 24.0 PG Mean Corpuscular Hemoglobin Concent 31.6 % Red Cell Distribution Width 23.5 % Platelet Count 196 TH/MM3 Mean Platelet Volume 8.2 FL Neutrophils (%) (Auto) 82.3 % Lymphocytes (%) (Auto) 9.2 % Monocytes (%) (Auto) 6.7 % Eosinophils (%) (Auto) 0.9 % Basophils (%) (Auto) 0.9 % Neutrophils # (Auto) 12.0 TH/MM3 Lymphocytes # (Auto) 1.4 TH/MM3 Monocytes # (Auto) 1.0 TH/MM3 Eosinophils # (Auto) 0.1 TH/MM3 Basophils # (Auto) 0.1 TH/MM3 CBC Comment DIFF FINAL Differential Comment Prothrombin Time 30.9 SEC Prothromb Time International Ratio 3.1 RATIO Administered Medications Medications (Trade) Dose Ordered Sig/Jessica Route PRN Reason Start Time Stop Time Status Last Admin Dose Admin Sodium Chloride (NS Flush) 2 ml UNSCH PRN IV FLUSH FLUSH AFTER USING IV ACCESS 08/31/17 22:00 09/25/17 06:20 Sodium Chloride (NS Flush) 2 ml BID IV FLUSH 09/01/17 09:00 09/25/17 08:07 Acetaminophen (Tylenol) 650 mg Q6H PRN PO fever 08/31/17 22:00 09/24/17 01:19 Ondansetron HCl (Zofran Inj) 4 mg Q6H PRN IV PUSH NAUSEA OR VOMITING 08/31/17 22:00 09/13/17 21:22 Temazepam (Restoril) 15 mg HS PRN PO INSOMNIA 08/31/17 22:00 09/11/17 22:08 Chlorhexidine Gluconate (Chlorhexidine 2% Cloth) Taper DAILY@04 TOP 09/01/17 04:00 08/28/18 03:59 09/11/17 03:54 Senna/Docusate Sodium (Armida-Colace) 1 tab BID PO 09/01/17 09:00 09/24/17 08:44 Ampicillin Sodium 2000 mg/Sodium Chloride 100 ml @ 400 mls/hr Q6H IV 09/01/17 14:00 09/25/17 08:08 Loperamide HCl (Imodium) 2 mg Q4H PRN PO Diarrhea 09/03/17 16:15 09/05/17 14:32 Albuterol Sulfate (Albuterol Neb) 2.5 mg Q2HR NEB PRN NEB dyspnea 09/04/17 11:30 09/25/17 05:55 Acetaminophen/ Hydrocodone Bitart ([place] 10-325 Mg) 1 tab Q4H PRN PO pain 1-5 09/09/17 15:00 09/14/17 05:02 Hydromorphone HCl (Dilaudid Pf Inj) 1 mg Q4H PRN IV PUSH PAIN SCALE 6 TO 10 09/12/17 19:00 09/25/17 10:19 Potassium Chloride (KCl) 60 meq Q12HR PO 09/19/17 09:45 09/25/17 08:07 Warfarin Sodium (Coumadin) 2 mg DAILY@16 PO 09/21/17 18:45 Future Hold 09/23/17 17:33 Ceftriaxone Sodium 1000 mg/ Sodium Chloride 100 ml @ 200 mls/hr Q24H IV 09/23/17 16:00 09/24/17 17:35 Furosemide (Lasix Inj) 20 mg BID@,18 IV PUSH 09/23/17 18:00 09/25/17 08:07 Albumin Human 100 ml @ 60 mls/hr Q12H IV 09/23/17 18:00 09/25/17 06:23 Objective Remarks GENERAL: chronically ill female, supine in bed. SKIN: Warm and dry. HEAD: Normocephalic. EYES: No injection or drainage. NECK: Supple, trachea midline. CARDIOVASCULAR: +S1, S2, tachy RESPIRATORY: scattered rhonchi. GASTROINTESTINAL: Abdomen soft, non-tender, nondistended. EXTREMITIES: 4+ pitting edema, ble. doppler pulses audible in bilateral dorsalis pedis NEUROLOGICAL: awake. alert. moving extremities. facial movements symmetric. Assessment/Plan Problem List: (1) arterial blood clot Plan: 09/25/16: INR =3.1 hold coumadin. 09/24: Pt's INR 3.7 today. Hold coumadin today and resume at 1mg when closer to 3. 09/21: INR 3.9 today. hold coumadin. goal INR between 2.0-3.0 09/20: INR =3.8. continue to hold coumadin until closer to 2.0-3.0 than resume at lower dose. will ask nurses to perform doppler on patient's pedal pulses q shift and document. 09/19/17. INR >4.0, Argatroban stopped. PT/PTT checked off argatroban, noted prolonged PTT. (2) Microcytic anemia ICD Codes: D50.9 - Iron deficiency anemia, unspecified Plan: --likely d/t inflammation/infection. no evidence of bleeding or hemolysis. --monitor and transfuse as needed. (3) Bacterial endocarditis ICD Codes: I33.0 - Acute and subacute infective endocarditis Status: Acute Plan: -on ampicillin, ID following. (4) Acute septic pulmonary embolism ICD Codes: I26.90 - Septic pulmonary embolism without acute cor pulmonale Plan: -- echocardiogram on 09/08 showed an estimated EF of 50-55%. ++severe tricuspid regurgitation with prosthesis in place. ++2 x 4 cm mobile vegetation was seen on the valve. The right atrium and right ventricle were normal in size and function Assessment 36y/o female admitted with recurrent endocarditis. hematology consulted for anticoagulation assistance. h/o Recurrent bacterial endocarditis, bacteremia, history of prosthetic aortic valve and subsequent redo, chronic active hepatitis C, intravenous drug use, microcytic anemia, consistent with iron deficiency, left lower extremity arterial event, bacterial endocarditis with viridans streptococcus. HPI (brought forward for continuity of care): history of IV drug abuse and recurrent endocarditis. had a relapse of her activity. has history of pulmonary embolism and infected valves. +significant congestive heart failure and presented to the emergency room on 08/31/2017, with sepsis. is followed by Infectious Disease for her endocarditis. previously received antibiotic therapy for enterococcus faecalis and staph aureus. There is questionable compliance. Her current blood culture from 08/31/2017, shows viridans streptococcus. Two out of two bottles were positive. She is on ampicillin and gentamicin. course is complicated by cold left lower extremity, evaluated by Vascular Surgery. 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 There is satisfactory calf runoff present. For this reason , conservative management with anticoagulation is continued. was placed on unfractionated heparin. Her heparin dose has been titrated from 1000 units/ hour to 2500 units/hour with a PTT remaining subtherapeutic. Her last PTT is 32 seconds from 09/06/2017, at 2 p.m. For this reason, Hematology/Oncology was consulted. Plan 1. hold coumadin 2. monitor INR 3. patient would like to speak with palliative care to see if she is a candidate for hospice. Attending Statement The exam, history, and the medical decision-making described in the above note were completed with the assistance of the mid-level provider. I reviewed and agree with the findings presented. I attest that I had a [id number] encounter with the patient on the same day, and personally performed and documented my assessment and findings in the medical record. Pt seen later in evening. Sitting in dark at bedside. LE swelling appear worse, noted dusk color of L leg, feels she's getting worse. Noted INR 3.1. Prefer to decrease dose rather than holding completely. Continue on Coumadin 1mg daily, start this evening. Monitor leg swelling. Prognosis over all poor. Jennifer Bailey Sep 25, 2017 12:29 Myra Silva MD Sep 25, 2017 19:57
--- NOTE | 2017-09-25 15:28 | HHI.NPPN ---
Subjective History of Present Illness This is a 37-year-old female with past medical history of IV drug abuse, history of hepatitis C, narcotic dependency, came to the hospital with complaint of shortness of breath and swelling. Nephrology called to see the patient because of elevated BUN and creatinine. The patient has creatinine of 4.5 on admission which improved and it was staying in the range of 0.6-0.8 until 6 days ago, then it started going up again and now it is 1.7. The patient has increased swelling of the legs and the patient was diagnosed with endocarditis and she has blood culture positive for Strep viridans. Patient has been following with the ID and she was getting furosemide, which was stopped today this morning because of increased creatinine and she was on vancomycin and rifampicin. The last dose of vancomycin seems to be given possibly on 09/09/2017 or even later, but her level was high and the highest level we have was 25.8, which was on 09/09/2017 but on 09/15/2017 it was 23.9. The patient has been actively using IV drugs before she came to the hospital and noticed to have more swelling in her legs. She is complaining of generalized body pain. There is no nausea, vomiting. Denies any diarrhea. Her appetite is normal. Additional Remarks Reports mild SOB. Bilateral lower extremity edema and complains of increased pain (Deena Oh) Review of Systems Respiratory Lungs: SOB (Deena Oh) Cardiovascular Cardiac Remarks Denies CP (Deena Oh) Gastrointestinal GI Remarks denies abdominal pain (Deena Oh) Objective Data Data 09/25/17 09/26/17 19:00 07:00 # Voids 1 # Bowel Movements 1 Vital Signs Date Time Temp Pulse Resp B/P (MAP) Pulse Ox O2 Delivery O2 Flow Rate FiO2 09/25/17 12:00 98.7 112 22 90/70 (77) 98 09/25/17 12:00 111 09/25/17 12:00 Nasal Cannula 3.00 09/25/17 08:00 Nasal Cannula 3.00 09/25/17 08:00 97.8 115 20 93/61 (72) 92 09/25/17 08:00 112 09/25/17 04:00 100.9 117 22 103/53 (70) 95 09/25/17 03:43 118 09/25/17 00:00 99.0 117 20 105/57 (73) 96 09/24/17 23:41 114 09/24/17 21:51 Nasal Cannula 2.00 09/24/17 20:00 Nasal Cannula 3.00 09/24/17 20:00 99.8 119 20 99/57 (71) 91 09/24/17 19:43 114 09/24/17 19:00 22 09/24/17 16:10 97.8 109 18 98/79 (85) 97 09/24/17 16:00 106 (Deena Oh) -: 09/25/17 0625 09/24/17 0615 Physical Exam General Appearance: No Acute Distress (Deena Oh) Eyes Eye Exam: Pupils Equal (Deena Oh) Throat Throat Exam: Oral Mucosa [place] & Moist (Deena Oh) Neck Neck Exam: Neck Supple (Deena Oh) Pulmonary Resp Exam: Clear Bilaterally (Deena Oh) Cardiology CV Exam: Regular, Normal Sinus Rhythm (Deena Oh) Gastrointestinal/Abdomen GI Exam: Soft, Non-Tender (Deena OhP) Integumentary Skin Exam: Dry, Intact (Deena Oh) Extremeties Extremities Exam: Pitting Edema (Deena Oh) Neurologic Neuro Exam: Alert, Awake, Oriented (Deena Oh) Psychiatric Psych Exam: Appropriate Responses (Deena Oh) Assessment/Plan Discussed Condition With: Patient Assessment Summary: DUONG/Acute Renal Failure Problem List: (1) Acute kidney injury ICD Codes: N17.9 - Acute kidney failure, unspecified Status: Acute Plan: DUONG likely due to vancomycin toxicity, post-infectious GN is unlikely. Possibility of ATN or pre renal. Urine eosinophils negative, complements wnl Creatinine stable from 1.6 Plan Continue lasix 20mg IV BID with albumin for edema. Continue to monitor BMP and UOP Avoid nephrotoxins. (2) Prosthetic valve endocarditis ICD Codes: T82.6XXA - Infection and inflammatory reaction due to cardiac valve prosthesis, initial encounter Status: Acute Plan: septic endocarditis with strep viridans IV drug use, pulmonary emboli as well. Continues ampicillin per ID, started ceftriaxone. continue renal dosing antibiotics. (3) Peripheral arterial occlusive disease ICD Codes: I77.9 - Disorder of arteries and arterioles, unspecified Plan: seen with vascular, continue medical management Hold contrast studies as possible. (4) Hepatitis C ICD Codes: B19.20 - Unspecified viral hepatitis C without hepatic coma Status: Chronic (Deena Oh) Problem Qualifiers (1) Prosthetic valve endocarditis: Qualified Codes: T82.6XXA - Infection and inflammatory reaction due to cardiac valve prosthesis, initial encounter Deena Oh Sep 25, 2017 15:28 Randal Salinas MD Sep 25, 2017 18:27
--- NOTE | 2017-09-25 15:29 | HHI.PR ---
Subjective Remarks Deferred entry, the patient was seen earlier at 11:15 AM. The patient states that she feels crappy, she states that her feet are very swollen and hurt. Patient otherwise denies chest pain, feels mild shortness of breath. Objective Vitals Vital Signs Date Time Temp Pulse Resp B/P (MAP) Pulse Ox O2 Delivery O2 Flow Rate FiO2 09/25/17 12:00 98.7 112 22 90/70 (77) 98 09/25/17 12:00 111 09/25/17 12:00 Nasal Cannula 3.00 09/25/17 08:00 Nasal Cannula 3.00 09/25/17 08:00 97.8 115 20 93/61 (72) 92 09/25/17 08:00 112 09/25/17 04:00 100.9 117 22 103/53 (70) 95 09/25/17 03:43 118 09/25/17 00:00 99.0 117 20 105/57 (73) 96 09/24/17 23:41 114 09/24/17 21:51 Nasal Cannula 2.00 09/24/17 20:00 Nasal Cannula 3.00 09/24/17 20:00 99.8 119 20 99/57 (71) 91 09/24/17 19:43 114 09/24/17 19:00 22 09/24/17 16:10 97.8 109 18 98/79 (85) 97 09/24/17 16:00 106 I/O 09/24/17 09/24/17 09/24/17 09/25/17 09/25/17 09/25/17 07:00 15:00 23:00 07:00 15:00 23:00 Intake Total 790 ml 840 ml 960 ml Output Total 850 ml Balance 790 ml 840 ml 110 ml Intake Oral 580 ml 840 ml 960 ml IV Total 210 ml Output Urine Total 850 ml # Voids 5 3 1 # Bowel Movements 1 0 1 Result Diagram: 09/25/1725 09/24/17 0615 Imaging Last Impressions Catheter Placement X-Ray 09/24/17 0000 Signed Impressions: Service Date/Time: Sunday, September 24, 2017 11:16 - CONCLUSION: Uncomplicated venous catheter change as above. Luis Leija MD Chest X-Ray 09/21/17 0000 Signed Impressions: Service Date/Time: Thursday, September 21, 2017 13:30 - CONCLUSION: 1. Right basilar patchy discussed with probable pneumonia. 2. Cardiomegaly. Jerald Licona MD Head CT 09/08/17 0000 Signed Impressions: Service Date/Time: Friday, September 08, 2017 10:22 - CONCLUSION: 1. Focal area of decreased density involving the right parietal lobe. As a new finding from the prior exam. This could relate to a small infarct. MRI of the brain with gadolinium suggested to further evaluate. 2. Small lacunar infarction involving the left centrum semiovale. Ananth Ponce Jr., MD CT Angiography 09/08/17 0000 Signed Impressions: Service Date/Time: Friday, September 08, 2017 10:28 - CONCLUSION: There extensive pulmonary emboli bilaterally. There is near complete cut off of the right lower lobe pulmonary artery. Prominent filling defects on the left as well. These findings were relayed to Dr. Dominguez immediately at the completion of the study. Scattered pulmonary infiltrates, small pleural effusion and extensive mediastinal lymphadenopathy as described above. Karsten Crowder MD Brain MRI 09/08/17 0000 Signed Impressions: Service Date/Time: Friday, September 08, 2017 18:04 - CONCLUSION: Deterioration in the appearance of the scan. At least 3 focal areas of abnormal contrast enhancement are present scattered to in both hemispheres. Given the history this most likely represents developing areas cerebritis. Exam is compromised by an uncooperative patient and motion artifact. These 2 factors make detection of other abnormalities such as cortical cephalitis and meningitis difficult to exclude. Cannot exclude hemorrhagic lesions as well. There is no mass effect evident. Geremias Mauricio MD Chest CT 09/03/17 0000 Signed Impressions: Service Date/Time: Sunday, September 03, 2017 12:41 - CONCLUSION: 1. There are at least 5 pulmonary nodules present bilaterally with the largest measuring 19 mm. None demonstrate cavitation but it is possible that these represent septic emboli. Suggest followup to assess for change. 2. Splenomegaly with subtle wedge-shaped areas of low-density in the mid spleen which could represent infarcts. 3. Mild cardiomegaly in this patient post aortic valve replacement. Low density of the cardiac blood pool suggests anemia. Adalid Galo MD Aorta w/Runoff CTA 09/02/17 0000 Signed Impressions: Service Date/Time: Saturday, September 02, 2017 12:47 - CONCLUSION: Left renal cortical infarction. 5-6 cm length total occlusion of the left superficial femoral artery in the proximal thigh. Nodular parenchymal opacities in the lung bases bilaterally See above discussion. Adalid Dallas MD Renal Ultrasound 09/01/17 0000 Signed Impressions: Service Date/Time: Friday, September 01, 2017 10:53 - CONCLUSION: 1. No evidence of hydronephrosis. 2. Thickening of the urinary bladder wall a 1.1 cm. 3. Prominent splenomegaly. Baldemar Pineda MD Breast Ultrasound 09/01/17 0000 Signed Impressions: Service Date/Time: Friday, September 01, 2017 10:48 - CONCLUSION: Negative targeted right breast ultrasound examination. Adalid Haney MD Lower Extremity Ultrasound 08/31/17 0000 Signed Impressions: Service Date/Time: Thursday, August 31, 2017 21:22 - CONCLUSION: 1. No sonographic evidence for lower extremity DVT. 2. Incidental note of bilateral inguinal adenopathy with the largest on the right measuring 3.3 cm and the largest on the left measuring 2.6 cm. This finding is nonspecific but is typically reactive in etiology. Luis Leija MD Objective Remarks AAOx3 NAD Clear lungs BL S1S2 4/6 systolic ejection murmur +3 BL lower extremity edema without erythema. Medications and IVs Current Medications Medications (Trade) Dose Ordered Sig/Jessica Route Start Time Stop Time Status Last Admin (NS Flush) 2 ml UNSCH PRN IV FLUSH 08/31/17 22:00 09/25/17 06:20 (NS Flush) 2 ml BID IV FLUSH 09/01/17 09:00 09/25/17 08:07 (Tylenol) 650 mg Q6H PRN PO 08/31/17 22:00 09/24/17 01:19 (Zofran Inj) 4 mg Q6H PRN IV PUSH 08/31/17 22:00 09/13/17 21:22 (Restoril) 15 mg HS PRN PO 08/31/17 22:00 09/11/17 22:08 Miscellaneous Information 1 Q361D XX 08/31/17 22:00 (Chlorhexidine 2% Cloth) Taper DAILY@04 TOP 09/01/17 04:00 08/28/18 03:59 09/11/17 03:54 (Chlorhexidine 2% Cloth) 3 pack UNSCH PRN TOP 08/31/17 22:00 (Armida-Colace) 1 tab BID PO 09/01/17 09:00 09/24/17 08:44 (Milk Of Magnesia Liq) 30 ml Q12H PRN PO 08/31/17 22:00 (Senokot) 17.2 mg Q12H PRN PO 08/31/17 22:00 (Dulcolax Supp) 10 mg DAILY PRN RECTAL 08/31/17 22:00 (Lactulose Liq) 30 ml DAILY PRN PO 08/31/17 22:00 Ampicillin Sodium 2000 mg/Sodium Chloride 100 ml @ 400 mls/hr Q6H IV 09/01/17 14:00 09/25/17 13:34 (Imodium) 2 mg Q4H PRN PO 09/03/17 16:15 09/05/17 14:32 (Albuterol Neb) 2.5 mg Q2HR NEB PRN NEB 09/04/17 11:30 09/25/17 13:04 ([place] 10-325 Mg) 1 tab Q4H PRN PO 09/09/17 15:00 09/14/17 05:02 (Dilaudid Pf Inj) 1 mg Q4H PRN IV PUSH 09/12/17 19:00 09/25/17 14:20 (KCl) 60 meq Q12HR PO 09/19/17 09:45 09/25/17 08:07 (Coumadin) 2 mg DAILY@16 PO 09/21/17 18:45 Future Hold 09/23/17 17:33 Ceftriaxone Sodium 1000 mg/ Sodium Chloride 100 ml @ 200 mls/hr Q24H IV 09/23/17 16:00 09/24/17 17:35 (Lasix Inj) 20 mg BID@18 IV PUSH 09/23/17 18:00 09/25/17 08:07 Albumin Human 100 ml @ 60 mls/hr Q12H IV 09/23/17 18:00 09/25/17 06:23 Vascular Central Line Catheter: Yes Assessment to: Continue Date of Insertion: Sep 24, 2017 Line: Central Venous Catheter Side: Right Location: Internal, Jugular Reason for Continuation IV medication administration. Patient with very poor vasculature. A/P Problem List: (1) Prosthetic valve endocarditis ICD Code: T82.6XXA - Infection and inflammatory reaction due to cardiac valve prosthesis, initial encounter Status: Acute (2) Bacteremia ICD Code: R78.81 - Bacteremia (3) Septic pulmonary embolism ICD Code: I26.90 - Septic pulmonary embolism without acute cor pulmonale Status: Acute (4) IVDU (intravenous drug user) ICD Code: F19.90 - Other psychoactive substance use, unspecified, uncomplicated (5) Anemia ICD Code: D64.9 - Anemia, unspecified Status: Chronic (6) DUONG (acute kidney injury) ICD Code: N17.9 - Acute kidney failure, unspecified Plan: Creatinine slightly worsened from 1.52-1.57. Nephrology consulted. Possible ATN from vancomycin toxicity or from infection. Urine eosinophils negative. Continue to hold diuretics as per nephrology. Nephrology recommends waiting for some improvement in renal function before some diuretics could be administered. Continue to monitor BUN and creatinine, avoid nephrotoxins. 09/24 As per Nephrology continue Lasix 20 mg IV BID with albumin. Creatinine slightly elevated from 1.57 - 1.62. 09/25 continue IV diuretics as above. Continue to monitor BUN and creatinine. Creatinine pending. Assessment and Plan (1) Prosthetic valve endocarditis Plan: Continue antibiotics as per ID. Patient on IV ampicillin. Continue to hold coumadin until INR < 3 - goal 2-3. 09/24 INR elevated from 3.1 to 3.7. Hematology had decreased dose of Coumadin, I will hold and continue to monitor PT/INR. Continue Ampicllin, Rocephin added for pulmonary coverage on 09/23 as per ID. Continue antibiotics as per ID recommendations. 09/25 palliative care consulted by hematology. As per hematology documentation the patient requested to talk to palliative care to see if she is a hospice candidate. Discussed with palliative care who states that the patient's goals are aggressive and she wants to get better. The patient definitely is a hospice candidate, however her goals are not hospice appropriate. I will start the patient on Oramorph 50 mg p.o. twice daily which will probably need to be titrated in order to provide some pain control for the patient. (2) Bacteremia Plan: Blood cultures obtained on 08/31 growing strep viridans. Subsequent repeat blood cultures negative. 09/24 sp Exchange of Right IJ central line. 09/25 continue IV antibiotics as per ID recommendations. (3) Septic pulmonary embolism Plan: As observed on a CT angiography of the chest obtained on 09/08/17. chocardiogram on 09/08 showed an estimated EF of 50-55%. ++severe tricuspid regurgitation with prosthesis in place. ++2 x 4 cm mobile vegetation was seen on the valve. The right atrium and right ventricle were normal in size and function Hematology following. Management of Coumadin as per hematology recommendations. Goal INR 2-3. (4) IVDU (intravenous drug user) Plan: Counseled on drug cessation. (5) Anemia Plan: Likely secondary to inflammation/infection. No evidence of bleeding or hemolysis. Monitor hemoglobin and transfuse as needed. Discharge Planning Continue to monitor on the medical floor. Pending palliative care consultation. Problem Qualifiers (1) Prosthetic valve endocarditis: Qualified Codes: T82.6XXA - Infection and inflammatory reaction due to cardiac valve prosthesis, initial encounter (2) Anemia: Qualified Codes: D63.8 - Anemia in other chronic diseases classified elsewhere Jaylen Livingston MD Sep 25, 2017 15:29
--- NOTE | 2017-09-25 16:36 | HHI.HCPN ---
Reason for visit a. To assist with evaluation and management of symptoms including: chest pain, dyspnea. b. To assist medical decision maker(s) with: better understanding of current medical conditions; weighing benefits/burdens of medical treatment options; making medical treatment decisions. . Subjective/Interval History Patient seen to follow-up on comfort, goals. Reconsulted by oncology, pt may wish to discuss hospice further. Patient still being followed by palliative. Remained stable. Low-grade fevers 100.9 MAXIMUM TEMPERATURE. Some spotting, possible menstrual cycle. H&H low though generally stable 7.9/25.1. Oncology following INR, coumadin. Continues on ampicillin, ceftriaxone. Patient seen in room no visitors present. She is seated in bed with legs elevated. Review with her palliative care consultation, ongoing support. She remembers me from prior visits. Explore her current condition. She is tearful she indicates she is weak, and she is very tired of being so sick. She indicates she is having difficulty getting her legs in bed without manually lifting them with her hands. She indicates she continues to have difficulty breathing with any activity. She continues to have ongoing pain to her legs, her chest and middle back with breathing. She feels like the IV pain medication helps for a little while but then before she is due to receive more the pain comes back. She is tearful at times. He is tired of being in the hospital. Supportive listening provided. She denies nausea or vomiting. Endorses poor appetite just doesn't feel hungry. Endorses ongoing shortness of breath worsening with any activity. Endorses ongoing weakness and difficulty walking and lifting her legs into the bed. Gently explore with her that if she does not desire ongoing hospitalization that hospice may be an option however hospice care would mean no further IV antibiotics she asks about transition to oral antibiotics. Advise that there is not an oral equivalent to what she is getting and that likely he would not keep her infection under control and she would experience worsening infection and and potentially days weeks or months. Explore that with comfort oriented goals she may achieve a little bit better pain relief however she would experience limited life expectancy and absence of ongoing aggressive hospital measures. Further explore that even with ongoing aggressive interventions in the hospital she does remain at risk for ongoing complications and setbacks and potential , though she certainly may survive longer with ongoing hospital-based aggressive treatment. She is tearful. She endorses that she is not ready to from her illness however she is tired of feeling so terribly. She wants to "get out of here alive ", and indicates that if she elected hospice she would from this. She is not interested in hospice at this time. Discuss with patient possible may make further adjustments to pain regimen however due to extensive illness and underlying pathology she will continue to experience some level of discomfort even with additional pain medication. Discussed with medical attending pain regimen and possible adjustments. . Advance Directives Living Will: Never completed Health Care Surrogate: Never completed Durable Power of Assistant Pastry Chef: Never completed Advance Directive Specifics Health Care Surrogate(s): No written advanced directives, patient refused to complete advanced directives during last admission. Patient a single. Children are juvenile. In the absence of written advanced directives, according to [place] statutes health care proxy decision-making falls to a parent. . Objective Vital Signs Date Time Temp Pulse Resp B/P (MAP) Pulse Ox O2 Delivery O2 Flow Rate FiO2 09/25/17 12:00 98.7 112 22 90/70 (77) 98 09/25/17 12:00 111 09/25/17 12:00 Nasal Cannula 3.00 09/25/17 08:00 Nasal Cannula 3.00 09/25/17 08:00 97.8 115 20 93/61 (72) 92 09/25/17 08:00 112 09/25/17 04:00 100.9 117 22 103/53 (70) 95 09/25/17 03:43 118 09/25/17 00:00 99.0 117 20 105/57 (73) 96 09/24/17 23:41 114 09/24/17 21:51 Nasal Cannula 2.00 09/24/17 20:00 Nasal Cannula 3.00 09/24/17 20:00 99.8 119 20 99/57 (71) 91 09/24/17 19:43 114 09/24/17 19:00 22 Intake & Output 09/25/17 09/25/17 07:00 19:00 Intake Total 960 ml Output Total 850 ml Balance 110 ml Intake Oral 960 ml Output Urine Total 850 ml # Voids 1 # Bowel Movements 0 1 Physical Exam CONSTITUTIONAL/GENERAL: This is an adequately nourished patient, with mildly labored respirations, worsens with conversation. TUBES/LINES/DRAINS: NC, right IJ central line SKIN: Ecchymoses on extremities. + scabbing/lesion LLE- ankle, dorsal foot. Skin warm/dry. +4+ Edema BLE. CARDIOVASCULAR: systolic murmur noted. tachycardic. RESPIRATORY/CHEST: On NC. Mildly dyspneic at rest, worsens with conversation. Bilateral course breath sounds. GASTROINTESTINAL: Abdomen soft, rounded, non-tender, nondistended. No guarding. Bowel sounds present. GENITOURINARY: Without palpable bladder distension. Voids bedside as needed MUSCULOSKELETAL: Lower extremities 4+ edema. lesions noted Left foot and LE. NEUROLOGICAL: Awake, flat affect. Oriented, some insight into hospitalization. Moves all 4 extremities. PSYCHIATRIC: Flat affect, tearful . Diagnostic Tests Laboratory Laboratory Tests Test 09/23/17 04:05 09/24/17 06:15 09/25/17 06:25 White Blood Count 15.0 TH/MM3 (4.0-11.0) 14.0 TH/MM3 (4.0-11.0) 14.6 TH/MM3 (4.0-11.0) Red Blood Count 3.49 MIL/MM3 (4.00-5.30) 3.30 MIL/MM3 (4.00-5.30) 3.31 MIL/MM3 (4.00-5.30) Hemoglobin 8.4 GM/DL (11.6-15.3) 8.0 GM/DL (11.6-15.3) 7.9 GM/DL (11.6-15.3) Hematocrit 26.4 % (35.0-46.0) 25.1 % (35.0-46.0) 25.1 % (35.0-46.0) Mean Corpuscular Volume 75.6 FL (80.0-100.0) 76.1 FL (80.0-100.0) 75.9 FL (80.0-100.0) Mean Corpuscular Hemoglobin 24.2 PG (27.0-34.0) 24.3 PG (27.0-34.0) 24.0 PG (27.0-34.0) Mean Corpuscular Hemoglobin Concent 32.0 % (32.0-36.0) 32.0 % (32.0-36.0) 31.6 % (32.0-36.0) Red Cell Distribution Width 22.5 % (11.6-17.2) 23.1 % (11.6-17.2) 23.5 % (11.6-17.2) Platelet Count 308 TH/MM3 (150-450) 211 TH/MM3 (150-450) 196 TH/MM3 (150-450) Mean Platelet Volume 8.2 FL (7.0-11.0) 8.1 FL (7.0-11.0) 8.2 FL (7.0-11.0) Neutrophils (%) (Auto) 80.6 % (16.0-70.0) 81.9 % (16.0-70.0) 82.3 % (16.0-70.0) Lymphocytes (%) (Auto) 10.8 % (9.0-44.0) 8.5 % (9.0-44.0) 9.2 % (9.0-44.0) Monocytes (%) (Auto) 6.9 % (0.0-8.0) 6.9 % (0.0-8.0) 6.7 % (0.0-8.0) Eosinophils (%) (Auto) 1.3 % (0.0-4.0) 1.6 % (0.0-4.0) 0.9 % (0.0-4.0) Basophils (%) (Auto) 0.4 % (0.0-2.0) 1.1 % (0.0-2.0) 0.9 % (0.0-2.0) Neutrophils # (Auto) 12.1 TH/MM3 (1.8-7.7) 11.4 TH/MM3 (1.8-7.7) 12.0 TH/MM3 (1.8-7.7) Lymphocytes # (Auto) 1.6 TH/MM3 (1.0-4.8) 1.2 TH/MM3 (1.0-4.8) 1.4 TH/MM3 (1.0-4.8) Monocytes # (Auto) 1.0 TH/MM3 (0-0.9) 1.0 TH/MM3 (0-0.9) 1.0 TH/MM3 (0-0.9) Eosinophils # (Auto) 0.2 TH/MM3 (0-0.4) 0.2 TH/MM3 (0-0.4) 0.1 TH/MM3 (0-0.4) Basophils # (Auto) 0.1 TH/MM3 (0-0.2) 0.2 TH/MM3 (0-0.2) 0.1 TH/MM3 (0-0.2) CBC Comment DIFF FINAL DIFF FINAL DIFF FINAL Differential Comment Prothrombin Time 31.2 SEC (9.8-11.6) 37.5 SEC (9.8-11.6) 30.9 SEC (9.8-11.6) Prothromb Time International Ratio 3.1 RATIO 3.7 RATIO 3.1 RATIO Blood Urea Nitrogen 23 MG/DL (7-18) 22 MG/DL (7-18) Creatinine 1.57 MG/DL (0.50-1.00) 1.62 MG/DL (0.50-1.00) Random Glucose 90 MG/DL (74-106) 116 MG/DL (74-106) Total Protein 7.0 GM/DL (6.4-8.2) 6.9 GM/DL (6.4-8.2) Albumin 2.4 GM/DL (3.4-5.0) 2.3 GM/DL (3.4-5.0) Calcium Level 8.5 MG/DL (8.5-10.1) 8.0 MG/DL (8.5-10.1) Phosphorus Level 3.6 MG/DL (2.5-4.9) Magnesium Level 1.6 MG/DL (1.5-2.5) Alkaline Phosphatase 177 U/L (45-117) 150 U/L (45-117) Aspartate Amino Transf (AST/SGOT) 395 U/L (15-37) 201 U/L (15-37) Alanine Aminotransferase (ALT/SGPT) 113 U/L (10-53) 93 U/L (10-53) Total Bilirubin 0.9 MG/DL (0.2-1.0) 0.7 MG/DL (0.2-1.0) Sodium Level 130 MEQ/L (136-145) 134 MEQ/L (136-145) Potassium Level 4.7 MEQ/L (3.5-5.1) 4.0 MEQ/L (3.5-5.1) Chloride Level 95 MEQ/L (98-107) 99 MEQ/L (98-107) Carbon Dioxide Level 25.0 MEQ/L (21.0-32.0) 26.6 MEQ/L (21.0-32.0) Anion Gap 10 MEQ/L (5-15) 8 MEQ/L (5-15) Estimat Glomerular Filtration Rate 37 ML/MIN (>89) 36 ML/MIN (>89) Result Diagram: 09/25/17 0625 09/24/17 0615 Imaging To help prompt me to consider important information that might be impacting today's encounter and assessment, information from prior notes written by myself or my colleagues may have been "brought forward" into today's note. My signature on this note, however, is an attestation that I personally performed the exam, history, and/or decision-making noted today, and, unless otherwise indicated, the interactions with patient, family, and staff as well as the review of records all occurred today. I also attest that the listed assessment and stated plan reflect my best clinical judgment today based on the combination of historical information, prior notes, and today's exam/ interactions. When time spent is documented, it refers only to time spent today by the signer, or if indicated, combined time spent today by collaborating physician/nurse practitioner. 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 2 juvenile children. Supported by her mother, step- father and boyfriend. Spiritual: Unknown. Legal: No known written advanced directives, family is going to try to find [employer] paperwork they think pt previously completed. Patient a single. Children are juvenile. If no written advanced directives, according to [place] statutes health care proxy decision-making falls to a parent. Ethical issues impacting care: No known concerns at this time. . Important Contacts * Fany Nielsen, mother/ HCP: [phone] * Karsten Nielsen, stepfather: [phone] . Prognosis Patient has grim prognosis. . Code Status: Full Code Plan * Decision Maker: No written advanced directives, patient refused to complete advanced directives during last admission. Patient a single. Children are juvenile. In the absence of written advanced directives, [place] to [place] [facility] proxy decision-making falls to her mother, Fany Nielsen. Karsten Nielsen is a step-father. Declines completion of written advance directives 09/10/17. * FULL CODE. * Patient desires continued aggressive care including FULL CODE. she is NOT interested in hospice at this time. [she would be appropriate for hospice if goals compatible] She would like better control of pain, recommendations discussed with medical attending. * SYMPTOMS: * Pain: Potential sources include endocarditis, bedbound status, tubes etc. Patient with likely high tolerance given history of IV drug use, will monitor effective medications. Has been using hydromorphone 1 mg IV about every 4 hours for the last many days (is ordered prn every 4 hours). Dose was decreased from 2mg to 1mg on 09/12/17. Previously on oral morphine 30mg BID outpatient while under hospice services. Pt will become tolerant to opiate doses. Hydromorphone dosing is 5-6 mg every 24 hours== this is equivalent to 100 oral morphine equivalents. Recommend starting on 30mg oral morphine long acting @ 12 hr. * Dyspnea: secondary to endocarditis, pulmonary emboli. +cont to have ongoing dyspnea, worsens w activity. * Hallucination: patient thought she saw a bug on her arm during prior palliative care visit, though knew it "wasn't really there." none reported today. No medication recommendations at this time. * Depression: Patient with flat affect, voicing she is "tired of being sick, tired of being in the hospital ", + situational--recurrent hospitalizations. She is going to continue to be in acutely ill situation with ongoing treatment; may benefit from SSRI if amenable, as well as ongoing psychotherapy support which is not available in current acute care setting * Palliative care will continue to follow throughout hospital course to assist with symptom management and clarification of goals as needed. . Attestation To help prompt me to consider important information that might be impacting today's encounter and assessment, information from prior notes written by myself or my colleagues may have been "brought forward" into today's note. My signature on this note, however, is an attestation that I personally performed the exam, history, and/or decision-making noted today, and, unless otherwise indicated, the interactions with patient, family, and staff as well as the review of records all occurred today. I also attest that the listed assessment and stated plan reflect my best clinical judgment today based on the combination of historical information, prior notes, and today's exam/ interactions. When time spent is documented, it refers only to time spent today by the signer, or if indicated, combined time spent today by collaborating physician/nurse practitioner. Joy Ceja Sep 25, 2017 16:36
[2017-09-25] MEDS: cefTRIAXone INJ 1,000 MG in SODIUM CHLORIDE 0.9% INJ 100 ML IV SCH (17:36)
[2017-09-25 18:39] LABS: CREATININE 1.57 MG/DL (0.50-1.00)
[2017-09-25] MEDS: MORPHINE SULFATE 15 MG CONTROLLED RELEASE TAB PO SCH (21:42)
[2017-09-25] MEDS: WARFARIN SOD 1 MG TAB PO SCH (22:02)
[2017-09-26] VITALS (11 sets, daily range): BP systolic 94–128; BP diastolic 60–79; PULSE 100–117; RESP 18–23; TEMP 98–99; O2SAT 94–100
[2017-09-26] MEDS: RESP: ALBUTEROL 2.5 MG/3 ML NEB (PRN) NEB ×2 (00:22→08:42)
[2017-09-26] MEDS: HYDROmorphone HCL PF 2 MG/ML VIAL IV PUSH PRN ×6 (02:37→22:52)
[2017-09-26] MEDS: AMPICILLIN INJ 2,000 MG in SODIUM CHLORIDE 0.9% INJ 100 ML IV SCH ×4 (02:38→21:52)
[2017-09-26] MEDS: SODIUM CHLORIDE 0.9% FLUSH 10 ML FLUSH IV FLUSH PRN ×3 (02:38→22:52)
[2017-09-26] MEDS: CHLORHEXIDINE GLUCONATE 2 % 1 PACK (2 CLOTHS) TOP SCH (04:00)
[2017-09-26] MEDS: ALBUMIN 25% INJ 100 ML IV SCH ×2 (06:33→18:47)
[2017-09-26] MEDS: FUROSEMIDE 20 MG/2 ML VIAL IV PUSH SCH ×2 (08:07→18:52)
[2017-09-26] MEDS: POTASSIUM CHLORIDE 10 MEQ CONTROLLED RELEASE TAB PO SCH ×2 (08:07→21:53)
[2017-09-26] MEDS: MORPHINE SULFATE 15 MG CONTROLLED RELEASE TAB PO SCH ×2 (08:08→21:52)
[2017-09-26] MEDS: DOCUSATE SODIUM 50 MG/SENNA 8.6 MG TAB PO SCH ×2 (08:08→21:00)
[2017-09-26] MEDS: SODIUM CHLORIDE 0.9% FLUSH 10 ML FLUSH IV FLUSH SCH ×2 (08:09→21:53)
[2017-09-26 09:53] LABS: HEMATOCRIT 25.2 % (35.0-46.0); MEAN CELL VOLUME 76.8 FL (80.0-100.0); MEAN CORPUSCULAR HEMOGLOBIN 24.2 PG (27.0-34.0); MEAN CORPUSCULAR HGB CONC 31.5 % (32.0-36.0); MEAN PLATELET VOLUME 8.4 FL (7.0-11.0); PLATELET COUNT 174 TH/MM3 (150-450); RED BLOOD COUNT 3.29 MIL/MM3 (4.00-5.30); RED CELL DISTRIBUTION WIDTH 23.8 % (11.6-17.2); WHITE BLOOD COUNT 14.1 TH/MM3 (4.0-11.0)
[2017-09-26 10:20] LABS: BICARBONATE 25.5 MEQ/L (21.0-32.0); CALCIUM 8.4 MG/DL (8.5-10.1); CREATININE 1.53 MG/DL (0.50-1.00)
--- NOTE | 2017-09-26 11:18 | HHI.NPPN ---
Subjective History of Present Illness This is a 37-year-old female with past medical history of IV drug abuse, history of hepatitis C, narcotic dependency, came to the hospital with complaint of shortness of breath and swelling. Nephrology called to see the patient because of elevated BUN and creatinine. The patient has creatinine of 4.5 on admission which improved and it was staying in the range of 0.6-0.8 until 6 days ago, then it started going up again and now it is 1.7. The patient has increased swelling of the legs and the patient was diagnosed with endocarditis and she has blood culture positive for Strep viridans. Patient has been following with the ID and she was getting furosemide, which was stopped today this morning because of increased creatinine and she was on vancomycin and rifampicin. The last dose of vancomycin seems to be given possibly on 09/09/2017 or even later, but her level was high and the highest level we have was 25.8, which was on 09/09/2017 but on 09/15/2017 it was 23.9. The patient has been actively using IV drugs before she came to the hospital and noticed to have more swelling in her legs. She is complaining of generalized body pain. There is no nausea, vomiting. Denies any diarrhea. Her appetite is normal. Additional Remarks Reports continued mild SOB. Bilateral lower extremity edema. Lasix increased yesterday. (Deena Oh) Review of Systems General Constitutional: Fatigue (Deena Oh) Respiratory Lungs: SOB (Deena Oh) Cardiovascular Cardiac: Edema, FOREMAN Cardiac Remarks Denies CP (Deena Oh) Gastrointestinal GI Remarks denies abdominal pain (Deena Oh) Objective Data Data 09/26/17 09/27/17 19:00 07:00 # Voids 2 Vital Signs Date Time Temp Pulse Resp B/P (MAP) Pulse Ox O2 Delivery O2 Flow Rate FiO2 09/26/17 08:42 95 09/26/17 08:05 110/76 (87) Manual Cuff/Auscultation Automatic Cuff 09/26/17 08:00 99.0 115 22 94 09/26/17 08:00 Nasal Cannula 3.00 09/26/17 04:04 109 09/26/17 04:00 98.8 109 18 128/61 (83) 99 09/26/17 04:00 Nasal Cannula 3.00 09/26/17 00:22 99 Nasal Cannula 1.00 09/26/17 00:00 98.5 112 18 114/62 (79) 96 09/26/17 00:00 Nasal Cannula 3.00 09/25/17 23:44 109 09/25/17 21:42 97/74 (82) 09/25/17 20:53 92/68 (76) 09/25/17 20:00 99.1 107 18 91/62 (72) 97 09/25/17 20:00 99.1 107 18 91/62 (72) 97 09/25/17 20:00 Nasal Cannula 3.00 09/25/17 19:44 108 09/25/17 16:00 98.0 110 20 101/72 (82) 98 09/25/17 16:00 113 09/25/17 16:00 Nasal Cannula 3.00 09/25/17 12:00 98.7 112 22 90/70 (77) 98 09/25/17 12:00 111 09/25/17 12:00 Nasal Cannula 3.00 (Deena Oh) -: 09/26/17 0630 09/26/17 0630 Physical Exam General Appearance: No Acute Distress (Deena Oh) Eyes Eye Exam: Pupils Equal (Deena Oh) Throat Throat Exam: Oral Mucosa [place] & Moist (Deena Oh) Neck Neck Exam: Neck Supple (Deena Oh) Pulmonary Resp Exam: Clear Bilaterally (Deena Oh) Cardiology CV Exam: Regular, Normal Sinus Rhythm (Deena Oh) Gastrointestinal/Abdomen GI Exam: Soft, Non-Tender (Deena Oh) Integumentary Skin Exam: Dry, Intact (Deena Oh) Extremeties Extremities Exam: Pitting Edema (Deena Oh) Neurologic Neuro Exam: Alert, Awake, Oriented (Deena Oh) Psychiatric Psych Exam: Appropriate Responses (Deena Oh) Assessment/Plan Discussed Condition With: Patient Assessment Summary: DUONG/Acute Renal Failure Problem List: (1) Acute kidney injury ICD Codes: N17.9 - Acute kidney failure, unspecified Status: Acute Plan: DUONG likely due to vancomycin toxicity, post-infectious GN is unlikely. Possibility of ATN or pre renal. Urine eosinophils negative, complements wnl Creatinine stable from 1.5 Good UOP Plan Continue lasix 40 mg IV BID for edema. Continue to monitor BMP and UOP Avoid nephrotoxins. (2) Prosthetic valve endocarditis ICD Codes: T82.6XXA - Infection and inflammatory reaction due to cardiac valve prosthesis, initial encounter Status: Acute Plan: septic endocarditis with strep viridans IV drug use, pulmonary emboli as well. Continues ampicillin per ID, started ceftriaxone. continue renal dosing antibiotics. (3) Peripheral arterial occlusive disease ICD Codes: I77.9 - Disorder of arteries and arterioles, unspecified Plan: seen with vascular, continue medical management Hold contrast studies as possible. (4) Hepatitis C ICD Codes: B19.20 - Unspecified viral hepatitis C without hepatic coma Status: Chronic (Deena Oh) Problem List: (1) Acute kidney injury ICD Codes: N17.9 - Acute kidney failure, unspecified Status: Acute Plan: DUONG likely due to vancomycin toxicity, post-infectious GN is unlikely. Possibility of ATN or pre renal. Urine eosinophils negative, complements wnl Creatinine stable from 1.5 Good UOP Plan Continue lasix 40 mg IV BID for edema. Continue to monitor BMP and UOP Avoid nephrotoxins. Patient seen and examined, agree with above. Lasix increased, follow the BMP. (2) Prosthetic valve endocarditis ICD Codes: T82.6XXA - Infection and inflammatory reaction due to cardiac valve prosthesis, initial encounter Status: Acute Plan: septic endocarditis with strep viridans IV drug use, pulmonary emboli as well. Continues ampicillin per ID, started ceftriaxone. continue renal dosing antibiotics. (3) Peripheral arterial occlusive disease ICD Codes: I77.9 - Disorder of arteries and arterioles, unspecified Plan: seen with vascular, continue medical management Hold contrast studies as possible. (4) Hepatitis C ICD Codes: B19.20 - Unspecified viral hepatitis C without hepatic coma Status: Chronic (Randal Salinas MD) Problem Qualifiers (1) Prosthetic valve endocarditis: Qualified Codes: T82.6XXA - Infection and inflammatory reaction due to cardiac valve prosthesis, initial encounter Deena Oh Sep 26, 2017 11:18 Randal Salinas MD Sep 26, 2017 22:57
--- NOTE | 2017-09-26 11:59 | RADRPT ---
EXAM DATE/TIME: 09/26/2017 11:32 [facility] COMPARISON: CHEST SINGLE AP, September 21, 2017, 13:30. INDICATIONS : Shortness of breath. MEDICAL HISTORY : Hepatitis C. Cardiovascular disease. Congestive heart failure. SURGICAL HISTORY : AVR. ENCOUNTER: Subsequent ACUITY: 1 month PAIN SCORE: 0/10 LOCATION: Bilateral chest FINDINGS: Right IJ central line in stable position. Improving patchy right lower lung zone airspace consolidati on. Cardiac lead is enlarged. Remainder of exam is unchanged. CONCLUSION: 1. Improving patchy right lower lung zone airspace consolidation. Luis Leija MD on September 26, 2017 at 11:55 Board Certified Radiologist. This report was verified electronically.
--- NOTE | 2017-09-26 12:16 | PD.ONC.PN ---
Subjective Subjective Remarks Afebrile overnight. Patient resting in bed. she noticed some redness on her left leg this morning. both her legs continue to be painful. Objective Data Date Time Temp Pulse Resp B/P (MAP) Pulse Ox O2 Delivery O2 Flow Rate FiO2 09/26/17 08:42 95 09/26/17 08:05 110/76 (87) Manual Cuff/Auscultation Automatic Cuff 09/26/17 08:00 116 09/26/17 08:00 99.0 115 22 94 09/26/17 08:00 Nasal Cannula 3.00 09/26/17 04:04 109 09/26/17 04:00 98.8 109 18 128/61 (83) 99 09/26/17 04:00 Nasal Cannula 3.00 09/26/17 00:22 99 Nasal Cannula 1.00 09/26/17 00:00 98.5 112 18 114/62 (79) 96 09/26/17 00:00 Nasal Cannula 3.00 09/25/17 23:44 109 09/25/17 21:42 97/74 (82) 09/25/17 20:53 92/68 (76) 09/25/17 20:00 99.1 107 18 91/62 (72) 97 09/25/17 20:00 99.1 107 18 91/62 (72) 97 09/25/17 20:00 Nasal Cannula 3.00 09/25/17 19:44 108 09/25/17 16:00 98.0 110 20 101/72 (82) 98 09/25/17 16:00 113 09/25/17 16:00 Nasal Cannula 3.00 Result Diagram: 09/26/17 0630 09/26/17 0630 Laboratory Results Laboratory Tests Test 09/25/17 18:00 09/26/17 06:30 Creatinine 1.57 MG/DL 1.53 MG/DL Estimat Glomerular Filtration Rate 37 ML/MIN 38 ML/MIN White Blood Count 14.1 TH/MM3 Red Blood Count 3.29 MIL/MM3 Hemoglobin 8.0 GM/DL Hematocrit 25.2 % Mean Corpuscular Volume 76.8 FL Mean Corpuscular Hemoglobin 24.2 PG Mean Corpuscular Hemoglobin Concent 31.5 % Red Cell Distribution Width 23.8 % Platelet Count 174 TH/MM3 Mean Platelet Volume 8.4 FL Blood Urea Nitrogen 20 MG/DL Random Glucose 79 MG/DL Calcium Level 8.4 MG/DL Sodium Level 130 MEQ/L Potassium Level 3.9 MEQ/L Chloride Level 93 MEQ/L Carbon Dioxide Level 25.5 MEQ/L Anion Gap 12 MEQ/L Administered Medications Medications (Trade) Dose Ordered Sig/Jessica Route PRN Reason Start Time Stop Time Status Last Admin Dose Admin Sodium Chloride (NS Flush) 2 ml UNSCH PRN IV FLUSH FLUSH AFTER USING IV ACCESS 08/31/17 22:00 09/26/17 06:36 Sodium Chloride (NS Flush) 2 ml BID IV FLUSH 09/01/17 09:00 09/26/17 08:09 Acetaminophen (Tylenol) 650 mg Q6H PRN PO fever 08/31/17 22:00 09/24/17 01:19 Ondansetron HCl (Zofran Inj) 4 mg Q6H PRN IV PUSH NAUSEA OR VOMITING 08/31/17 22:00 09/13/17 21:22 Temazepam (Restoril) 15 mg HS PRN PO INSOMNIA 08/31/17 22:00 09/11/17 22:08 Chlorhexidine Gluconate (Chlorhexidine 2% Cloth) Taper DAILY@04 TOP 09/01/17 04:00 08/28/18 03:59 09/11/17 03:54 Senna/Docusate Sodium (Armida-Colace) 1 tab BID PO 09/01/17 09:00 09/24/17 08:44 Ampicillin Sodium 2000 mg/Sodium Chloride 100 ml @ 400 mls/hr Q6H IV 09/01/17 14:00 09/26/17 08:09 Loperamide HCl (Imodium) 2 mg Q4H PRN PO Diarrhea 09/03/17 16:15 09/05/17 14:32 Albuterol Sulfate (Albuterol Neb) 2.5 mg Q2HR NEB PRN NEB dyspnea 09/04/17 11:30 09/26/17 08:42 Acetaminophen/ Hydrocodone Bitart (S [place] 10-325 Mg) 1 tab Q4H PRN PO pain 1-5 09/09/17 15:00 09/14/17 05:02 Hydromorphone HCl (Dilaudid Pf Inj) 1 mg Q4H PRN IV PUSH PAIN SCALE 6 TO 10 09/12/17 19:00 09/26/17 10:33 Potassium Chloride (KCl) 60 meq Q12HR PO 09/19/17 09:45 09/26/17 08:07 Warfarin Sodium (Coumadin) 2 mg DAILY@16 PO 09/21/17 18:45 Future Hold 09/23/17 17:33 Ceftriaxone Sodium 1000 mg/ Sodium Chloride 100 ml @ 200 mls/hr Q24H IV 09/23/17 16:00 09/25/17 17:36 Albumin Human 100 ml @ 60 mls/hr Q12H IV 09/23/17 18:00 09/26/17 06:33 Morphine Sulfate (Oramorph Sr) 15 mg Q12HR PO 09/25/17 21:00 09/26/17 08:08 Furosemide (Lasix Inj) 40 mg BID@ IV PUSH 09/26/17 09:00 09/26/17 08:07 Warfarin Sodium (Coumadin) 1 mg DAILY@16 PO 09/25/17 21:00 09/25/17 22:02 Objective Remarks GENERAL: chronically ill female, upright in bed, dyspneic. on O2 via NC SKIN: Warm and dry. HEAD: Normocephalic. EYES: No injection or drainage. NECK: Supple, trachea midline. CARDIOVASCULAR: +S1, S2, tachy RESPIRATORY: diminished at bases, scattered rhonchi. GASTROINTESTINAL: Abdomen soft, non-tender, nondistended. EXTREMITIES: 4+ pitting edema, in both legs. left leg with shiny erythema NEUROLOGICAL: awake. alert. no obvious focal deficit. Assessment/Plan Problem List: (1) arterial blood clot Plan: 09/26: await INR 09/25/16: INR =3.1. give 1mg coumadin 09/24: Pt's INR 3.7 today. Hold coumadin today and resume at 1mg when closer to 3. 09/21: INR 3.9 today. hold coumadin. goal INR between 2.0-3.0 09/20: INR =3.8. continue to hold coumadin until closer to 2.0-3.0 than resume at lower dose. will ask nurses to perform doppler on patient's pedal pulses q shift and document. 09/19/17. INR >4.0, Argatroban stopped. PT/PTT checked off argatroban, noted prolonged PTT. (2) Microcytic anemia ICD Codes: D50.9 - Iron deficiency anemia, unspecified Plan: --likely d/t inflammation/infection. no evidence of bleeding or hemolysis. --monitor and transfuse as needed. (3) Bacterial endocarditis ICD Codes: I33.0 - Acute and subacute infective endocarditis Status: Acute Plan: -on ampicillin, ID following. (4) Acute septic pulmonary embolism ICD Codes: I26.90 - Septic pulmonary embolism without acute cor pulmonale Plan: -- echocardiogram on 09/08 showed an estimated EF of 50-55%. ++severe tricuspid regurgitation with prosthesis in place. ++2 x 4 cm mobile vegetation was seen on the valve. The right atrium and right ventricle were normal in size and function Assessment 36y/o female admitted with recurrent endocarditis. hematology consulted for anticoagulation assistance. h/o Recurrent bacterial endocarditis, bacteremia, history of prosthetic aortic valve and subsequent redo, chronic active hepatitis C, intravenous drug use, microcytic anemia, consistent with iron deficiency, left lower extremity arterial event, bacterial endocarditis with viridans streptococcus. HPI (brought forward for continuity of care): history of IV drug abuse and recurrent endocarditis. had a relapse of her activity. has history of pulmonary embolism and infected valves. +significant congestive heart failure and presented to the emergency room on 08/31/2017, with sepsis. is followed by Infectious Disease for her endocarditis. previously received antibiotic therapy for enterococcus faecalis and staph aureus. There is questionable compliance. Her current blood culture from 08/31/2017, shows viridans streptococcus. Two out of two bottles were positive. She is on ampicillin and gentamicin. course is complicated by cold left lower extremity, evaluated by Vascular Surgery. 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 There is satisfactory calf runoff present. For this reason , conservative management with anticoagulation is continued. was placed on unfractionated heparin. Her heparin dose has been titrated from 1000 units/ hour to 2500 units/hour with a PTT remaining subtherapeutic. Her last PTT is 32 seconds from 09/06/2017, at 2 p.m. For this reason, Hematology/Oncology was consulted. Plan 1. await INR 2. ask infectious disease to reassess patient antibiotics, re: new cellulitis, left leg. Jennifer Bailey Sep 26, 2017 12:16
[2017-09-26] MEDS: WARFARIN SOD 1 MG TAB PO SCH (15:03)
[2017-09-26] MEDS: cefTRIAXone INJ 1,000 MG in SODIUM CHLORIDE 0.9% INJ 100 ML IV SCH (15:04)
[2017-09-26 16:37] LABS: INTERNATIONAL NORMALIZED RATIO 3.2 RATIO; PROTHROMBIN TIME - PATIENT 32.1 SEC (9.8-11.6)
--- NOTE | 2017-09-26 17:08 | HHI.PR ---
Subjective Remarks Deferred entry, the patient was seen earlier at 11:15 AM. The patient states for short of breath, however seems to be slightly better. The patient denies cough, fevers or chills. Bilateral extremities are still swollen, states it is hard for her to move the bathroom. Noted some erythema on the left lower extremity today, left lower extremity is tender. Objective Vitals Vital Signs Date Time Temp Pulse Resp B/P (MAP) Pulse Ox O2 Delivery O2 Flow Rate FiO2 09/26/17 12:00 Nasal Cannula 3.00 09/26/17 12:00 98.9 116 22 101/79 (86) 95 Manual Cuff/Auscultation 09/26/17 08:42 95 09/26/17 08:05 110/76 (87) Manual Cuff/Auscultation Automatic Cuff 09/26/17 08:00 116 09/26/17 08:00 99.0 115 22 94 09/26/17 08:00 Nasal Cannula 3.00 09/26/17 04:04 109 09/26/17 04:00 98.8 109 18 128/61 (83) 99 09/26/17 04:00 Nasal Cannula 3.00 09/26/17 00:22 99 Nasal Cannula 1.00 09/26/17 00:00 98.5 112 18 114/62 (79) 96 09/26/17 00:00 Nasal Cannula 3.00 09/25/17 23:44 109 09/25/17 21:42 97/74 (82) 09/25/17 20:53 92/68 (76) 09/25/17 20:00 99.1 107 18 91/62 (72) 97 09/25/17 20:00 99.1 107 18 91/62 (72) 97 09/25/17 20:00 Nasal Cannula 3.00 09/25/17 19:44 108 I/O 09/25/17 09/25/17 09/25/17 09/26/17 09/26/17 09/26/17 07:00 15:00 23:00 07:00 15:00 23:00 Intake Total 960 ml 720 ml Output Total 850 ml 300 ml Balance 110 ml 420 ml Intake Oral 960 ml 720 ml Output Urine Total 850 ml 300 ml # Voids 1 2 2 # Bowel Movements 0 1 Result Diagram: 09/26/17 0630 09/26/17 0630 Imaging Last Impressions Chest X-Ray 09/26/17 0000 Signed Impressions: Service Date/Time: Tuesday, September 26, 2017 11:32 - CONCLUSION: 1. Improving patchy right lower lung zone airspace consolidation. Luis Leija MD Catheter Placement X-Ray 09/24/17 0000 Signed Impressions: Service Date/Time: Sunday, September 24, 2017 11:16 - CONCLUSION: Uncomplicated venous catheter change as above. Luis Leija MD Head CT 09/08/17 0000 Signed Impressions: Service Date/Time: Friday, September 08, 2017 10:22 - CONCLUSION: 1. Focal area of decreased density involving the right parietal lobe. As a new finding from the prior exam. This could relate to a small infarct. MRI of the brain with gadolinium suggested to further evaluate. 2. Small lacunar infarction involving the left centrum semiovale. Ananth Ponce Jr., MD CT Angiography 09/08/17 0000 Signed Impressions: Service Date/Time: Friday, September 08, 2017 10:28 - CONCLUSION: There extensive pulmonary emboli bilaterally. There is near complete cut off of the right lower lobe pulmonary artery. Prominent filling defects on the left as well. These findings were relayed to Dr. Dominguez immediately at the completion of the study. Scattered pulmonary infiltrates, small pleural effusion and extensive mediastinal lymphadenopathy as described above. Karsten Crowder MD Brain MRI 09/08/17 0000 Signed Impressions: Service Date/Time: Friday, September 08, 2017 18:04 - CONCLUSION: Deterioration in the appearance of the scan. At least 3 focal areas of abnormal contrast enhancement are present scattered to in both hemispheres. Given the history this most likely represents developing areas cerebritis. Exam is compromised by an uncooperative patient and motion artifact. These 2 factors make detection of other abnormalities such as cortical cephalitis and meningitis difficult to exclude. Cannot exclude hemorrhagic lesions as well. There is no mass effect evident. Geremias Mauricio MD Chest CT 09/03/17 0000 Signed Impressions: Service Date/Time: Sunday, September 03, 2017 12:41 - CONCLUSION: 1. There are at least 5 pulmonary nodules present bilaterally with the largest measuring 19 mm. None demonstrate cavitation but it is possible that these represent septic emboli. Suggest followup to assess for change. 2. Splenomegaly with subtle wedge-shaped areas of low-density in the mid spleen which could represent infarcts. 3. Mild cardiomegaly in this patient post aortic valve replacement. Low density of the cardiac blood pool suggests anemia. Adalid Galo MD Aorta w/Runoff CTA 09/02/17 0000 Signed Impressions: Service Date/Time: Saturday, September 02, 2017 12:47 - CONCLUSION: Left renal cortical infarction. 5-6 cm length total occlusion of the left superficial femoral artery in the proximal thigh. Nodular parenchymal opacities in the lung bases bilaterally See above discussion. Adalid Dallas MD Renal Ultrasound 09/01/17 0000 Signed Impressions: Service Date/Time: Friday, September 01, 2017 10:53 - CONCLUSION: 1. No evidence of hydronephrosis. 2. Thickening of the urinary bladder wall a 1.1 cm. 3. Prominent splenomegaly. Baldemar Pineda MD Breast Ultrasound 09/01/17 0000 Signed Impressions: Service Date/Time: Friday, September 01, 2017 10:48 - CONCLUSION: Negative targeted right breast ultrasound examination. Adalid Haney MD Lower Extremity Ultrasound 08/31/17 0000 Signed Impressions: Service Date/Time: Thursday, August 31, 2017 21:22 - CONCLUSION: 1. No sonographic evidence for lower extremity DVT. 2. Incidental note of bilateral inguinal adenopathy with the largest on the right measuring 3.3 cm and the largest on the left measuring 2.6 cm. This finding is nonspecific but is typically reactive in etiology. Luis Leija MD Objective Remarks AAOx3 NAD Clear lungs BL S1S2 4/6 systolic ejection murmur +3 BL lower extremity edema. Erythema, increased warmth and tenderness to palpation of the left lower leg Medications and IVs Current Medications Medications (Trade) Dose Ordered Sig/Jessica Route Start Time Stop Time Status Last Admin (NS Flush) 2 ml UNSCH PRN IV FLUSH 08/31/17 22:00 09/26/17 06:36 (NS Flush) 2 ml BID IV FLUSH 09/01/17 09:00 09/26/17 08:09 (Tylenol) 650 mg Q6H PRN PO 08/31/17 22:00 09/24/17 01:19 (Zofran Inj) 4 mg Q6H PRN IV PUSH 08/31/17 22:00 09/13/17 21:22 (Restoril) 15 mg HS PRN PO 08/31/17 22:00 09/11/17 22:08 Miscellaneous Information 1 Q361D XX 08/31/17 22:00 (Chlorhexidine 2% Cloth) Taper DAILY@04 TOP 09/01/17 04:00 08/28/18 03:59 09/11/17 03:54 (Chlorhexidine 2% Cloth) 3 pack UNSCH PRN TOP 08/31/17 22:00 (Armida-Colace) 1 tab BID PO 09/01/17 09:00 09/24/17 08:44 (Milk Of Magnesia Liq) 30 ml Q12H PRN PO 08/31/17 22:00 (Senokot) 17.2 mg Q12H PRN PO 08/31/17 22:00 (Dulcolax Supp) 10 mg DAILY PRN RECTAL 08/31/17 22:00 (Lactulose Liq) 30 ml DAILY PRN PO 08/31/17 22:00 Ampicillin Sodium 2000 mg/Sodium Chloride 100 ml @ 400 mls/hr Q6H IV 09/01/17 14:00 09/26/17 15:03 (Imodium) 2 mg Q4H PRN PO 09/03/17 16:15 09/05/17 14:32 (Albuterol Neb) 2.5 mg Q2HR NEB PRN NEB 09/04/17 11:30 09/26/17 08:42 ([place] 10-325 Mg) 1 tab Q4H PRN PO 09/09/17 15:00 09/14/17 05:02 (Dilaudid Pf Inj) 1 mg Q4H PRN IV PUSH 09/12/17 19:00 09/26/17 15:03 (KCl) 60 meq Q12HR PO 09/19/17 09:45 09/26/17 08:07 (Coumadin) 2 mg DAILY@16 PO 09/21/17 18:45 Future Hold 09/23/17 17:33 Ceftriaxone Sodium 1000 mg/ Sodium Chloride 100 ml @ 200 mls/hr Q24H IV 09/23/17 16:00 09/26/17 15:04 Albumin Human 100 ml @ 60 mls/hr Q12H IV 09/23/17 18:00 09/26/17 06:33 (Oramorph Sr) 15 mg Q12HR PO 09/25/17 21:00 09/26/17 08:08 (Lasix Inj) 40 mg BID@,18 IV PUSH 09/26/17 09:00 09/26/17 08:07 (Coumadin) 1 mg DAILY@16 PO 09/25/17 21:00 09/26/17 15:03 Date of Insertion: Sep 24, 2017 Line: Central Venous Catheter Side: Right Location: Internal, Jugular A/P Problem List: (1) Prosthetic valve endocarditis ICD Code: T82.6XXA - Infection and inflammatory reaction due to cardiac valve prosthesis, initial encounter Status: Acute (2) Bacteremia ICD Code: R78.81 - Bacteremia (3) Septic pulmonary embolism ICD Code: I26.90 - Septic pulmonary embolism without acute cor pulmonale Status: Acute (4) IVDU (intravenous drug user) ICD Code: F19.90 - Other psychoactive substance use, unspecified, uncomplicated (5) Anemia ICD Code: D64.9 - Anemia, unspecified Status: Chronic (6) DUONG (acute kidney injury) ICD Code: N17.9 - Acute kidney failure, unspecified Plan: Creatinine slightly worsened from 1.52-1.57. Nephrology consulted. Possible ATN from vancomycin toxicity or from infection. Urine eosinophils negative. Continue to hold diuretics as per nephrology. Nephrology recommends waiting for some improvement in renal function before some diuretics could be administered. Continue to monitor BUN and creatinine, avoid nephrotoxins. 09/24 As per Nephrology continue Lasix 20 mg IV BID with albumin. Creatinine slightly elevated from 1.57 - 1.62. 09/25 continue IV diuretics as above. Continue to monitor BUN and creatinine. Creatinine pending. 09/26 creatinine is trending down to 1.53. Continue to follow-up management as per nephrology. Continue with diuresis with Lasix which has been increased from 20 mg IV twice daily to 40 mg IV twice daily. (7) Cellulitis of left lower extremity ICD Code: L03.116 - Cellulitis of left lower limb Plan: The patient has erythema, increased warmth and tenderness to palpation on the left lower extremity. The patient likely is developing a left lower extremity cellulitis. 09/26 discussed the case with Dr. Dontfraid from infectious disease. Recommends observation for now. Assessment and Plan (1) Prosthetic valve endocarditis Plan: Continue antibiotics as per ID. Patient on IV ampicillin. Continue to hold coumadin until INR < 3 - goal 2-3. 09/24 INR elevated from 3.1 to 3.7. Hematology had decreased dose of Coumadin, I will hold and continue to monitor PT/INR. Continue Ampicllin, Rocephin added for pulmonary coverage on 09/23 as per ID. Continue antibiotics as per ID recommendations. 09/25 palliative care consulted by hematology. As per hematology documentation the patient requested to talk to palliative care to see if she is a hospice candidate. Discussed with palliative care who states that the patient's goals are aggressive and she wants to get better. The patient definitely is a hospice candidate, however her goals are not hospice appropriate. I will start the patient on Oramorph 50 mg p.o. twice daily which will probably need to be titrated in order to provide some pain control for the patient. (2) Bacteremia Plan: Blood cultures obtained on 08/31 growing strep viridans. Subsequent repeat blood cultures negative. 09/24 sp Exchange of Right IJ central line. 09/25 continue IV antibiotics as per ID recommendations. (3) Septic pulmonary embolism Plan: As observed on a CT angiography of the chest obtained on 09/08/17. chocardiogram on 09/08 showed an estimated EF of 50-55%. ++severe tricuspid regurgitation with prosthesis in place. ++2 x 4 cm mobile vegetation was seen on the valve. The right atrium and right ventricle were normal in size and function Hematology following. Management of Coumadin as per hematology recommendations. Goal INR 2-3. (4) IVDU (intravenous drug user) Plan: Counseled on drug cessation. (5) Anemia Plan: Likely secondary to inflammation/infection. No evidence of bleeding or hemolysis. Monitor hemoglobin and transfuse as needed. Discharge Planning Continue to monitor on the medical floor. Pending palliative care consultation. Problem Qualifiers (1) Prosthetic valve endocarditis: Qualified Codes: T82.6XXA - Infection and inflammatory reaction due to cardiac valve prosthesis, initial encounter (2) Anemia: Qualified Codes: D63.8 - Anemia in other chronic diseases classified elsewhere Jaylen Livingston MD Sep 26, 2017 17:08
--- NOTE | 2017-09-26 18:16 | HHI.IDPN ---
Note Infectious Disease Note Patient seen earlier today. Delayed note entry. She is sitting up in a chair. She has no complaints. I was notified about redness of the left lower extremity. She denies pain at the left lower extremity. She has pain in the legs when she tries to ambulate. Has some shortness of breath but states that it is no worse. Afebrile. No new complaints. 36-year-old white female who has a history of endocarditis and has been admitted several times for the same. The patient developed shortness of breath, fever and chills, and presented to the emergency department. The patient is noted to be actively using IV drugs. She has history of significant CHF from prior valvular heart disease related to endocarditis. She states that she started feeling short of breath about a week ago and the shortness of breath worsened. After she completed IV antibiotics in April she was put on doxycycline prophylaxis. She reports that she had not been taking the doxycycline. PAST MEDICAL HISTORY: Hepatitis C. IV drug use. prosthetic aortic valve replacement in 2010 and then redo aortic valve replacement in December 2015 MEDICATIONS: Current Medications Medications (Trade) Dose Ordered Sig/Jessica Route PRN Reason Start Time Stop Time Status Last Admin Dose Admin Sodium Chloride (NS Flush) 2 ml UNSCH PRN IV FLUSH FLUSH AFTER USING IV ACCESS 08/31/17 22:00 09/26/17 06:36 Sodium Chloride (NS Flush) 2 ml BID IV FLUSH 09/01/17 09:00 09/26/17 08:09 Acetaminophen (Tylenol) 650 mg Q6H PRN PO fever 08/31/17 22:00 09/24/17 01:19 Ondansetron HCl (Zofran Inj) 4 mg Q6H PRN IV PUSH NAUSEA OR VOMITING 08/31/17 22:00 09/13/17 21:22 Temazepam (Restoril) 15 mg HS PRN PO INSOMNIA 08/31/17 22:00 09/11/17 22:08 Miscellaneous Information 1 Q361D XX 08/31/17 22:00 Chlorhexidine Gluconate (Chlorhexidine 2% Cloth) Taper DAILY@04 TOP 09/01/17 04:00 08/28/18 03:59 09/11/17 03:54 Chlorhexidine Gluconate (Chlorhexidine 2% Cloth) 3 pack UNSCH PRN TOP HYGIENIC CARE 08/31/17 22:00 Senna/Docusate Sodium (Armida-Colace) 1 tab BID PO 09/01/17 09:00 09/24/17 08:44 Magnesium Hydroxide (Milk Of Magnesia Liq) 30 ml Q12H PRN PO Mild constipation 08/31/17 22:00 Sennosides (Senokot) 17.2 mg Q12H PRN PO Moderate constipation 08/31/17 22:00 Bisacodyl (Dulcolax Supp) 10 mg DAILY PRN RECTAL SEVERE CONSITIPATION 08/31/17 22:00 Lactulose (Lactulose Liq) 30 ml DAILY PRN PO SEVERE CONSITIPATION 08/31/17 22:00 Ampicillin Sodium 2000 mg/Sodium Chloride 100 ml @ 400 mls/hr Q6H IV 09/01/17 14:00 09/26/17 15:03 Loperamide HCl (Imodium) 2 mg Q4H PRN PO Diarrhea 09/03/17 16:15 09/05/17 14:32 Albuterol Sulfate (Albuterol Neb) 2.5 mg Q2HR NEB PRN NEB dyspnea 09/04/17 11:30 09/26/17 08:42 Acetaminophen/ Hydrocodone Bitart ([place] 10-325 Mg) 1 tab Q4H PRN PO pain 1-5 09/09/17 15:00 09/14/17 05:02 Hydromorphone HCl (Dilaudid Pf Inj) 1 mg Q4H PRN IV PUSH PAIN SCALE 6 TO 10 09/12/17 19:00 09/26/17 15:03 Potassium Chloride (KCl) 60 meq Q12HR PO 09/19/17 09:45 09/26/17 08:07 Ceftriaxone Sodium 1000 mg/ Sodium Chloride 100 ml @ 200 mls/hr Q24H IV 09/23/17 16:00 09/26/17 15:04 Albumin Human 100 ml @ 60 mls/hr Q12H IV 09/23/17 18:00 09/26/17 06:33 Morphine Sulfate (Oramorph Sr) 15 mg Q12HR PO 09/25/17 21:00 09/26/17 08:08 Furosemide (Lasix Inj) 40 mg BID@ IV PUSH 09/26/17 09:00 09/26/17 08:07 Warfarin Sodium (Coumadin) 1 mg DAILY@16 PO 09/25/17 21:00 09/26/17 15:03 OBJECTIVE: Vital Signs Date Time Temp Pulse Resp B/P (MAP) Pulse Ox O2 Delivery O2 Flow Rate FiO2 09/26/17 16:00 Nasal Cannula 3.00 09/26/17 16:00 117 09/26/17 12:00 Nasal Cannula 3.00 09/26/17 12:00 98.9 116 22 101/79 (86) 95 Manual Cuff/Auscultation 09/26/17 08:42 95 09/26/17 08:05 110/76 (87) Manual Cuff/Auscultation Automatic Cuff 09/26/17 08:00 116 09/26/17 08:00 99.0 115 22 94 09/26/17 08:00 Nasal Cannula 3.00 09/26/17 04:04 109 09/26/17 04:00 98.8 109 18 128/61 (83) 99 09/26/17 04:00 Nasal Cannula 3.00 09/26/17 00:22 99 Nasal Cannula 1.00 09/26/17 00:00 98.5 112 18 114/62 (79) 96 09/26/17 00:00 Nasal Cannula 3.00 09/25/17 23:44 109 09/25/17 21:42 97/74 (82) 09/25/17 20:53 92/68 (76) 09/25/17 20:00 99.1 107 18 91/62 (72) 97 09/25/17 20:00 99.1 107 18 91/62 (72) 97 09/25/17 20:00 Nasal Cannula 3.00 09/25/17 19:44 108 Laboratory Tests Test 09/25/17 06:25 09/26/17 06:30 White Blood Count 14.6 TH/MM3 14.1 TH/MM3 Red Blood Count 3.31 MIL/MM3 3.29 MIL/MM3 Hemoglobin 7.9 GM/DL 8.0 GM/DL Hematocrit 25.1 % 25.2 % Mean Corpuscular Volume 75.9 FL 76.8 FL Mean Corpuscular Hemoglobin 24.0 PG 24.2 PG Mean Corpuscular Hemoglobin Concent 31.6 % 31.5 % Red Cell Distribution Width 23.5 % 23.8 % Platelet Count 196 TH/MM3 174 TH/MM3 Mean Platelet Volume 8.2 FL 8.4 FL Neutrophils (%) (Auto) 82.3 % Lymphocytes (%) (Auto) 9.2 % Monocytes (%) (Auto) 6.7 % Eosinophils (%) (Auto) 0.9 % Basophils (%) (Auto) 0.9 % Neutrophils # (Auto) 12.0 TH/MM3 Lymphocytes # (Auto) 1.4 TH/MM3 Monocytes # (Auto) 1.0 TH/MM3 Eosinophils # (Auto) 0.1 TH/MM3 Basophils # (Auto) 0.1 TH/MM3 CBC Comment DIFF FINAL Differential Comment Laboratory Tests Test 09/25/17 18:00 09/26/17 06:30 Creatinine 1.57 MG/DL 1.53 MG/DL Estimat Glomerular Filtration Rate 37 ML/MIN 38 ML/MIN Blood Urea Nitrogen 20 MG/DL Random Glucose 79 MG/DL Calcium Level 8.4 MG/DL Sodium Level 130 MEQ/L Potassium Level 3.9 MEQ/L Chloride Level 93 MEQ/L Carbon Dioxide Level 25.5 MEQ/L Anion Gap 12 MEQ/L IMAGING: Chest X-Ray 09/26/17 0000 Signed Impressions: Service Date/Time: Tuesday, September 26, 2017 11:32 - CONCLUSION: 1. Improving patchy right lower lung zone airspace consolidation. Luis Leija MD Chest X-Ray 09/10/17 0600 Signed Impressions: Service Date/Time: Sunday, September 10, 2017 03:52 - CONCLUSION: There is a small to moderate size right pleural effusion with associated volume loss and/or airspace consolidation. The pleural effusion has increased from the prior examination. Adalid Galo MD Head CT 09/08/17 0000 Signed Impressions: Service Date/Time: Friday, September 08, 2017 10:22 - CONCLUSION: 1. Focal area of decreased density involving the right parietal lobe. As a new finding from the prior exam. This could relate to a small infarct. MRI of the brain with gadolinium suggested to further evaluate. 2. Small lacunar infarction involving the left centrum semiovale. Ananth Ponce Jr., MD CT Angiography 09/08/17 0000 Signed Impressions: Service Date/Time: Friday, September 08, 2017 10:28 - CONCLUSION: There extensive pulmonary emboli bilaterally. There is near complete cut off of the right lower lobe pulmonary artery. Prominent filling defects on the left as well. These findings were relayed to Dr. Dominguez immediately at the completion of the study. Scattered pulmonary infiltrates, small pleural effusion and extensive mediastinal lymphadenopathy as described above. Karsten Crowder MD Brain MRI 09/08/17 0000 Signed Impressions: Service Date/Time: Friday, September 08, 2017 18:04 - CONCLUSION: Deterioration in the appearance of the scan. At least 3 focal areas of abnormal contrast enhancement are present scattered to in both hemispheres. Given the history this most likely represents developing areas cerebritis. Exam is compromised by an uncooperative patient and motion artifact. These 2 factors make detection of other abnormalities such as cortical cephalitis and meningitis difficult to exclude. Cannot exclude hemorrhagic lesions as well. There is no mass effect evident. Geremias Mauricio MD Renal Ultrasound 09/01/17 0000 Signed Impressions: Service Date/Time: Friday, September 01, 2017 10:53 - CONCLUSION: 1. No evidence of hydronephrosis. 2. Thickening of the urinary bladder wall a 1.1 cm. 3. Prominent splenomegaly. Baldemar Pineda MD Chest X-Ray 09/01/17 0000 Signed Impressions: Service Date/Time: Friday, September 01, 2017 09:36 - CONCLUSION: Right internal jugular central line in place with the tip overlying the SVC. A pneumothorax is not seen. Adalid Haney MD Breast Ultrasound 09/01/17 0000 Signed Impressions: Service Date/Time: Friday, September 01, 2017 10:48 - CONCLUSION: Negative targeted right breast ultrasound examination. Adalid Haney MD Lower Extremity Ultrasound 08/31/17 0000 Signed Impressions: Service Date/Time: Thursday, August 31, 2017 21:22 - CONCLUSION: 1. No sonographic evidence for lower extremity DVT. 2. Incidental note of bilateral inguinal adenopathy with the largest on the right measuring 3.3 cm and the largest on the left measuring 2.6 cm. This finding is nonspecific but is typically reactive in etiology. Luis Leija MD PHYSICAL EXAMINATION GENERAL: No acute distress. HEENT: No icterus. Oropharynx moist mucosa, no lesions. Neck: Supple without adenopathy. Lungs: Rhonchi at both lungs decreased. Heart: 5/6 blowing systolic murmur at the upper right sternal border. Abdomen: Bowel sounds present, soft, obese, nontender. Extremities: Diffuse 3+ edema of the lower extremities. Left lower extremity has mild erythema. Lesions at Left tibia distally and left foot and great toe 2. No longer purpuric. Toes 3 and 5 are no longer cyanotic. Purple lesion at the tuft of the left fifth toe improved. Left leg warm. No calf tenderness. No nail hemorrhages. SKIN: no diffuse rash. Neuro: No gross focal findings. Psychiatric: calm and cooperative. IMPRESSION 1. Sepsis. Strep Viridans. 2. Tricuspid valve endocarditis. Large vegetation. Tricuspid regurgitation. Patient evaluated by cardiovascular surgery and felt not to be a surgical candidate. 3. Bacteremia. Strep viridans. Blood cultures have remained negative on follow-up. Last positive blood culture was on 08/31. 4. History of prosthetic aortic valve and so likely recurrent prosthetic valve endocarditis. 5. Cerebritis on MRI. Also has parietal infarct noted on CT scan of the brain. 6. Left renal cortical and pulmonary and lower extremity septic emboli. 7. Leukocytosis secondary to sepsis from showering of emboli from endocarditis. 8. Acute renal failure. Kidney function improved. 9. Area of mild erythema at the left leg. I do not think this is cellulitis. However she has significant edema and that may be disposal to develop cellulitis. RECOMMENDATIONS 1. Continue Ampicillin intravenous. 2. Continue ceftriaxone. 3. Monitor clinical status. 4. Continue to monitor the left leg. Plan on intravenous antibiotics until October 12. Which will be 6 weeks after the last positive blood culture. After that she should continue with prophylactic oral antibiotics indefinitely. Continue to monitor her blood counts and renal function. Edmar Sloan MD Sep 26, 2017 18:16
[2017-09-27] VITALS (8 sets, daily range): BP systolic 95–117; BP diastolic 51–64; PULSE 103–122; RESP 20–24; TEMP 97.8–99; O2SAT 92–95
[2017-09-27] MEDS: AMPICILLIN INJ 2,000 MG in SODIUM CHLORIDE 0.9% INJ 100 ML IV SCH ×4 (02:46→19:57)
[2017-09-27] MEDS: HYDROmorphone HCL PF 2 MG/ML VIAL IV PUSH PRN ×5 (02:46→19:56)
[2017-09-27] MEDS: SODIUM CHLORIDE 0.9% FLUSH 10 ML FLUSH IV FLUSH PRN ×2 (02:47→06:48)
[2017-09-27] MEDS: CHLORHEXIDINE GLUCONATE 2 % 1 PACK (2 CLOTHS) TOP SCH (03:30)
[2017-09-27] MEDS: ALBUMIN 25% INJ 100 ML IV SCH ×2 (06:17→17:16)
[2017-09-27 06:44] LABS: INTERNATIONAL NORMALIZED RATIO 2.4 RATIO; PROTHROMBIN TIME - PATIENT 24.4 SEC (9.8-11.6)
[2017-09-27] MEDS: SODIUM CHLORIDE 0.9% FLUSH 10 ML FLUSH IV FLUSH SCH ×2 (08:53→19:58)
[2017-09-27] MEDS: FUROSEMIDE 20 MG/2 ML VIAL IV PUSH SCH ×2 (08:53→17:16)
[2017-09-27] MEDS: POTASSIUM CHLORIDE 10 MEQ CONTROLLED RELEASE TAB PO SCH ×2 (08:54→22:17)
[2017-09-27] MEDS: DOCUSATE SODIUM 50 MG/SENNA 8.6 MG TAB PO SCH ×2 (08:55→21:00)
[2017-09-27] MEDS: MORPHINE SULFATE 15 MG CONTROLLED RELEASE TAB PO SCH ×2 (08:55→22:18)
--- NOTE | 2017-09-27 14:03 | HHI.PR ---
Subjective Remarks Breathing status improved as per patient. Denies cp still with BL lower extremity edema and difficulty ambulating. No complaining as much about pain in lower extremities. Objective Vitals Vital Signs Date Time Temp Pulse Resp B/P (MAP) Pulse Ox O2 Delivery O2 Flow Rate FiO2 09/27/17 12:11 98.7 114 22 101/64 (76) 92 09/27/17 11:54 18 09/27/17 11:48 95 Nasal Cannula 2.00 Humidified 09/27/17 10:02 18 09/27/17 08:00 98.8 118 22 113/55 (74) 95 09/27/17 08:00 121 09/27/17 04:00 97.8 122 24 117/51 (73) 93 09/27/17 04:00 Nasal Cannula 2.00 Humidified 09/27/17 04:00 122 09/27/17 00:00 98.0 118 23 96/63 (74) 94 09/27/17 00:00 Nasal Cannula 2.00 Humidified 09/27/17 00:00 121 09/26/17 20:24 100 Nasal Cannula 2.00 09/26/17 20:00 98.0 110 23 99/60 (73) 97 09/26/17 20:00 111 09/26/17 20:00 Nasal Cannula 2.00 Humidified 09/26/17 16:00 Nasal Cannula 3.00 09/26/17 16:00 117 09/26/17 16:00 98.0 100 22 94/73 (80) 98 I/O 09/26/17 09/26/17 09/26/17 09/27/17 09/27/17 09/27/17 07:00 15:00 23:00 07:00 15:00 23:00 Intake Total 920 ml 2250 ml Output Total 2000 ml 2450 ml Balance -1080 ml -200 ml Intake Oral 720 ml 2050 ml IV Total 200 ml 200 ml Output Urine Total 2000 ml 2450 ml # Voids 2 3 # Bowel Movements 1 0 Result Diagram: 09/26/17 0630 09/26/17 0630 Imaging Last Impressions Chest X-Ray 09/26/17 0000 Signed Impressions: Service Date/Time: Tuesday, September 26, 2017 11:32 - CONCLUSION: 1. Improving patchy right lower lung zone airspace consolidation. Luis Leija MD Catheter Placement X-Ray 09/24/17 0000 Signed Impressions: Service Date/Time: Sunday, September 24, 2017 11:16 - CONCLUSION: Uncomplicated venous catheter change as above. Luis Leija MD Head CT 09/08/17 0000 Signed Impressions: Service Date/Time: Friday, September 08, 2017 10:22 - CONCLUSION: 1. Focal area of decreased density involving the right parietal lobe. As a new finding from the prior exam. This could relate to a small infarct. MRI of the brain with gadolinium suggested to further evaluate. 2. Small lacunar infarction involving the left centrum semiovale. Ananth Ponce Jr., MD CT Angiography 09/08/17 0000 Signed Impressions: Service Date/Time: Friday, September 08, 2017 10:28 - CONCLUSION: There extensive pulmonary emboli bilaterally. There is near complete cut off of the right lower lobe pulmonary artery. Prominent filling defects on the left as well. These findings were relayed to Dr. Dominguez immediately at the completion of the study. Scattered pulmonary infiltrates, small pleural effusion and extensive mediastinal lymphadenopathy as described above. Karsten Crowder MD Brain MRI 09/08/17 0000 Signed Impressions: Service Date/Time: Friday, September 08, 2017 18:04 - CONCLUSION: Deterioration in the appearance of the scan. At least 3 focal areas of abnormal contrast enhancement are present scattered to in both hemispheres. Given the history this most likely represents developing areas cerebritis. Exam is compromised by an uncooperative patient and motion artifact. These 2 factors make detection of other abnormalities such as cortical cephalitis and meningitis difficult to exclude. Cannot exclude hemorrhagic lesions as well. There is no mass effect evident. Geremias Mauricio MD Chest CT 09/03/17 0000 Signed Impressions: Service Date/Time: Sunday, September 03, 2017 12:41 - CONCLUSION: 1. There are at least 5 pulmonary nodules present bilaterally with the largest measuring 19 mm. None demonstrate cavitation but it is possible that these represent septic emboli. Suggest followup to assess for change. 2. Splenomegaly with subtle wedge-shaped areas of low-density in the mid spleen which could represent infarcts. 3. Mild cardiomegaly in this patient post aortic valve replacement. Low density of the cardiac blood pool suggests anemia. Adalid Galo MD Aorta w/Runoff CTA 09/02/17 0000 Signed Impressions: Service Date/Time: Saturday, September 02, 2017 12:47 - CONCLUSION: Left renal cortical infarction. 5-6 cm length total occlusion of the left superficial femoral artery in the proximal thigh. Nodular parenchymal opacities in the lung bases bilaterally See above discussion. Adalid Dallas MD Renal Ultrasound 09/01/17 0000 Signed Impressions: Service Date/Time: Friday, September 01, 2017 10:53 - CONCLUSION: 1. No evidence of hydronephrosis. 2. Thickening of the urinary bladder wall a 1.1 cm. 3. Prominent splenomegaly. Baldemar Pineda MD Breast Ultrasound 09/01/17 0000 Signed Impressions: Service Date/Time: Friday, September 01, 2017 10:48 - CONCLUSION: Negative targeted right breast ultrasound examination. Adalid Haney MD Lower Extremity Ultrasound 08/31/17 0000 Signed Impressions: Service Date/Time: Thursday, August 31, 2017 21:22 - CONCLUSION: 1. No sonographic evidence for lower extremity DVT. 2. Incidental note of bilateral inguinal adenopathy with the largest on the right measuring 3.3 cm and the largest on the left measuring 2.6 cm. This finding is nonspecific but is typically reactive in etiology. Luis Leija MD Objective Remarks AAOx3 NAD Clear lungs BL S1S2 4/6 systolic ejection murmur +4 BL lower extremity edema. Erythema, increased warmth and tenderness to palpation of the left lower leg. Dark blue discoloration of toes of left leg. Pedal and tial pulses not palpable due to edema. Good capillary refill. Medications and IVs Current Medications Medications (Trade) Dose Ordered Sig/Jessica Route Start Time Stop Time Status Last Admin (NS Flush) 2 ml UNSCH PRN IV FLUSH 08/31/17 22:00 09/27/17 06:48 (NS Flush) 2 ml BID IV FLUSH 09/01/17 09:00 09/27/17 19:58 (Tylenol) 650 mg Q6H PRN PO 08/31/17 22:00 09/24/17 01:19 (Zofran Inj) 4 mg Q6H PRN IV PUSH 08/31/17 22:00 09/13/17 21:22 (Restoril) 15 mg HS PRN PO 08/31/17 22:00 09/11/17 22:08 Miscellaneous Information 1 Q361D XX 08/31/17 22:00 (Chlorhexidine 2% Cloth) Taper DAILY@04 TOP 09/01/17 04:00 08/28/18 03:59 09/11/17 03:54 (Chlorhexidine 2% Cloth) 3 pack UNSCH PRN TOP 08/31/17 22:00 (Armida-Colace) 1 tab BID PO 09/01/17 09:00 09/27/17 08:55 (Milk Of Magnesia Liq) 30 ml Q12H PRN PO 08/31/17 22:00 (Senokot) 17.2 mg Q12H PRN PO 08/31/17 22:00 (Dulcolax Supp) 10 mg DAILY PRN RECTAL 08/31/17 22:00 (Lactulose Liq) 30 ml DAILY PRN PO 08/31/17 22:00 Ampicillin Sodium 2000 mg/Sodium Chloride 100 ml @ 400 mls/hr Q6H IV 09/01/17 14:00 09/27/17 19:57 (Imodium) 2 mg Q4H PRN PO 09/03/17 16:15 09/05/17 14:32 (Albuterol Neb) 2.5 mg Q2HR NEB PRN NEB 09/04/17 11:30 09/26/17 08:42 (Sweet Water 10-325 Mg) 1 tab Q4H PRN PO 09/09/17 15:00 09/14/17 05:02 (Dilaudid Pf Inj) 1 mg Q4H PRN IV PUSH 09/12/17 19:00 09/27/17 19:56 (KCl) 60 meq Q12HR PO 09/19/17 09:45 09/27/17 22:17 Albumin Human 100 ml @ 60 mls/hr Q12H IV 09/23/17 18:00 09/27/17 17:16 (Oramorph Sr) 15 mg Q12HR PO 09/25/17 21:00 09/27/17 22:18 (Lasix Inj) 40 mg BID@18 IV PUSH 09/26/17 09:00 09/27/17 17:16 (Coumadin) 1 mg DAILY@16 PO 09/25/17 21:00 09/27/17 15:30 Daptomycin 500 mg/ Sodium Chloride 100 ml @ 200 mls/hr Q24H IV 09/27/17 20:00 09/27/17 19:57 (Zaroxolyn) 2.5 mg BID PO 09/27/17 22:00 09/27/17 22:27 Vascular Central Line Catheter: Yes Assessment to: Continue Date of Insertion: Sep 24, 2017 Line: Central Venous Catheter Side: Right Location: Internal, Jugular Reason for Continuation Access - Medications administration A/P Problem List: (1) Prosthetic valve endocarditis ICD Code: T82.6XXA - Infection and inflammatory reaction due to cardiac valve prosthesis, initial encounter Status: Acute (2) Bacteremia ICD Code: R78.81 - Bacteremia (3) Septic pulmonary embolism ICD Code: I26.90 - Septic pulmonary embolism without acute cor pulmonale Status: Acute (4) IVDU (intravenous drug user) ICD Code: F19.90 - Other psychoactive substance use, unspecified, uncomplicated (5) Anemia ICD Code: D64.9 - Anemia, unspecified Status: Chronic (6) DUONG (acute kidney injury) ICD Code: N17.9 - Acute kidney failure, unspecified Plan: Creatinine slightly worsened from 1.52-1.57. Nephrology consulted. Possible ATN from vancomycin toxicity or from infection. Urine eosinophils negative. Continue to hold diuretics as per nephrology. Nephrology recommends waiting for some improvement in renal function before some diuretics could be administered. Continue to monitor BUN and creatinine, avoid nephrotoxins. 09/24 As per Nephrology continue Lasix 20 mg IV BID with albumin. Creatinine slightly elevated from 1.57 - 1.62. 09/25 continue IV diuretics as above. Continue to monitor BUN and creatinine. Creatinine pending. 09/27 creatinine is trending down to 1.53. Continue to follow-up management as per nephrology. Continue with diuresis with Lasix which has been increased from 20 mg IV twice daily to 40 mg IV twice daily. Metolazone added to the regime. (7) Cellulitis of left lower extremity ICD Code: L03.116 - Cellulitis of left lower limb Plan: The patient has erythema, increased warmth and tenderness to palpation on the left lower extremity. The patient likely is developing a left lower extremity cellulitis. 09/26 discussed the case with Dr. Sloan from infectious disease. Recommends observation for now. 09/27 Leg looks more erythematous and toes in lower extremities have a darker discoloration. Rocephin discontinued by ID and patient placed on Daptomycin. Monitor for response. Will order check of pedal pulses with arterial doppler. Discussed with RN. Assessment and Plan (1) Prosthetic valve endocarditis Plan: Continue antibiotics as per ID. Patient on IV ampicillin. Continue to hold coumadin until INR < 3 - goal 2-3. 09/24 INR elevated from 3.1 to 3.7. Hematology had decreased dose of Coumadin, I will hold and continue to monitor PT/INR. Continue Ampicllin, Rocephin added for pulmonary coverage on 09/23 as per ID. Continue antibiotics as per ID recommendations. 09/25 palliative care consulted by hematology. As per hematology documentation the patient requested to talk to palliative care to see if she is a hospice candidate. Discussed with palliative care who states that the patient's goals are aggressive and she wants to get better. The patient definitely is a hospice candidate, however her goals are not hospice appropriate. I will start the patient on Oramorph 50 mg p.o. twice daily which will probably need to be titrated in order to provide some pain control for the patient. (2) Bacteremia Plan: Blood cultures obtained on 08/31 growing strep viridans. Subsequent repeat blood cultures negative. 09/24 sp Exchange of Right IJ central line. 09/25 continue IV antibiotics as per ID recommendations. (3) Septic pulmonary embolism Plan: As observed on a CT angiography of the chest obtained on 09/08/17. chocardiogram on 09/08 showed an estimated EF of 50-55%. ++severe tricuspid regurgitation with prosthesis in place. ++2 x 4 cm mobile vegetation was seen on the valve. The right atrium and right ventricle were normal in size and function Hematology following. Management of Coumadin as per hematology recommendations. Goal INR 2-3. (4) IVDU (intravenous drug user) Plan: Counseled on drug cessation. (5) Anemia Plan: Likely secondary to inflammation/infection. No evidence of bleeding or hemolysis. Monitor hemoglobin and transfuse as needed. Discharge Planning Continue to monitor on the medical floor. Problem Qualifiers (1) Prosthetic valve endocarditis: Qualified Codes: T82.6XXA - Infection and inflammatory reaction due to cardiac valve prosthesis, initial encounter (2) Anemia: Qualified Codes: D63.8 - Anemia in other chronic diseases classified elsewhere Jaylen Livingston MD Sep 27, 2017 14:03
--- NOTE | 2017-09-27 14:28 | HHI.NPPN ---
Subjective History of Present Illness This is a 37-year-old female with past medical history of IV drug abuse, history of hepatitis C, narcotic dependency, came to the hospital with complaint of shortness of breath and swelling. Nephrology called to see the patient because of elevated BUN and creatinine. The patient has creatinine of 4.5 on admission which improved and it was staying in the range of 0.6-0.8 until 6 days ago, then it started going up again and now it is 1.7. The patient has increased swelling of the legs and the patient was diagnosed with endocarditis and she has blood culture positive for Strep viridans. Patient has been following with the ID and she was getting furosemide, which was stopped today this morning because of increased creatinine and she was on vancomycin and rifampicin. The last dose of vancomycin seems to be given possibly on 09/09/2017 or even later, but her level was high and the highest level we have was 25.8, which was on 09/09/2017 but on 09/15/2017 it was 23.9. The patient has been actively using IV drugs before she came to the hospital and noticed to have more swelling in her legs. She is complaining of generalized body pain. There is no nausea, vomiting. Denies any diarrhea. Her appetite is normal. Additional Remarks Reports continued mild SOB. Bilateral lower extremity edema. (Deena Oh) Review of Systems General Constitutional: Fatigue (Deena Oh) Respiratory Lungs: SOB (Deena Oh) Cardiovascular Cardiac: Edema, FOREMAN Cardiac Remarks Denies CP (Deena Oh) Gastrointestinal GI Remarks denies abdominal pain (Deena Oh) Objective Data Data Vital Signs Date Time Temp Pulse Resp B/P (MAP) Pulse Ox O2 Delivery O2 Flow Rate FiO2 09/27/17 12:11 98.7 114 22 101/64 (76) 92 09/27/17 11:54 18 09/27/17 11:48 95 Nasal Cannula 2.00 Humidified 09/27/17 10:02 18 09/27/17 08:00 98.8 118 22 113/55 (74) 95 09/27/17 08:00 121 09/27/17 04:00 97.8 122 24 117/51 (73) 93 09/27/17 04:00 Nasal Cannula 2.00 Humidified 09/27/17 04:00 122 09/27/17 00:00 98.0 118 23 96/63 (74) 94 09/27/17 00:00 Nasal Cannula 2.00 Humidified 09/27/17 00:00 121 09/26/17 20:24 100 Nasal Cannula 2.00 09/26/17 20:00 98.0 110 23 99/60 (73) 97 09/26/17 20:00 111 09/26/17 20:00 Nasal Cannula 2.00 Humidified 09/26/17 16:00 Nasal Cannula 3.00 09/26/17 16:00 117 09/26/17 16:00 98.0 100 22 94/73 (80) 98 (Deena Oh) -: 09/26/17 0630 09/26/17 0630 Physical Exam General Appearance: No Acute Distress (Deena Oh) Eyes Eye Exam: Pupils Equal (Deena Oh) Throat Throat Exam: Oral Mucosa Carnuel & Moist (Deena Oh) Neck Neck Exam: Neck Supple (Deena Oh) Pulmonary Resp Exam: Clear Bilaterally (Deena Oh) Cardiology CV Exam: Regular, Normal Sinus Rhythm (Deena Oh) Gastrointestinal/Abdomen GI Exam: Soft, Non-Tender (Deena Oh) Integumentary Skin Exam: Dry, Intact (Deena Oh) Extremeties Extremities Exam: Pitting Edema (Deena Oh) Neurologic Neuro Exam: Alert, Awake, Oriented (Deena Oh) Psychiatric Psych Exam: Appropriate Responses (Deena Oh) Assessment/Plan Discussed Condition With: Patient Assessment Summary: DUONG/Acute Renal Failure Problem List: (1) Acute kidney injury ICD Codes: N17.9 - Acute kidney failure, unspecified Status: Acute Plan: DUONG likely due to vancomycin toxicity, post-infectious GN is unlikely. Possibility of ATN or pre renal. Urine eosinophils negative, complements wnl Creatinine stable Good UOP Plan Continue lasix 40 mg IV BID for edema. Continue to monitor BMP and UOP Encouraged to elevate legs throughout day Avoid nephrotoxins. (2) Prosthetic valve endocarditis ICD Codes: T82.6XXA - Infection and inflammatory reaction due to cardiac valve prosthesis, initial encounter Status: Acute Plan: septic endocarditis with strep viridans IV drug use, pulmonary emboli as well. Continues ampicillin per ID, started ceftriaxone. continue renal dosing antibiotics. (3) Peripheral arterial occlusive disease ICD Codes: I77.9 - Disorder of arteries and arterioles, unspecified Plan: seen with vascular, continue medical management Hold contrast studies as possible. (4) Hepatitis C ICD Codes: B19.20 - Unspecified viral hepatitis C without hepatic coma Status: Chronic (Deena Oh) Problem List: (1) Acute kidney injury ICD Codes: N17.9 - Acute kidney failure, unspecified Status: Acute Plan: DUONG likely due to vancomycin toxicity, post-infectious GN is unlikely. Possibility of ATN or pre renal. Urine eosinophils negative, complements wnl Creatinine stable Good UOP Plan Continue lasix 40 mg IV BID for edema. Continue to monitor BMP and UOP Encouraged to elevate legs throughout day Avoid nephrotoxins. Patient seen and examined, agree with above. I will add Metolazone. (2) Prosthetic valve endocarditis ICD Codes: T82.6XXA - Infection and inflammatory reaction due to cardiac valve prosthesis, initial encounter Status: Acute Plan: septic endocarditis with strep viridans IV drug use, pulmonary emboli as well. Continues ampicillin per ID, started ceftriaxone. continue renal dosing antibiotics. (3) Peripheral arterial occlusive disease ICD Codes: I77.9 - Disorder of arteries and arterioles, unspecified Plan: seen with vascular, continue medical management Hold contrast studies as possible. (4) Hepatitis C ICD Codes: B19.20 - Unspecified viral hepatitis C without hepatic coma Status: Chronic (Randal Salinas MD) Problem Qualifiers (1) Prosthetic valve endocarditis: Qualified Codes: T82.6XXA - Infection and inflammatory reaction due to cardiac valve prosthesis, initial encounter Deena Oh Sep 27, 2017 14:28 Randal Salinas MD Sep 27, 2017 21:55
[2017-09-27] MEDS: WARFARIN SOD 1 MG TAB PO SCH (15:30)
[2017-09-27] MEDS: cefTRIAXone INJ 1,000 MG in SODIUM CHLORIDE 0.9% INJ 100 ML IV SCH (15:31)
--- NOTE | 2017-09-27 17:19 | HHI.IDPN ---
Note Infectious Disease Note Patient with no new complaints. Afebrile. Redness of the lower extremities worse. Notes that pain in the left lower extremity is increased. Continues to have shortness of breath. 36-year-old white female who has a history of endocarditis and has been admitted several times for the same. The patient developed shortness of breath, fever and chills, and presented to the emergency department. The patient is noted to be actively using IV drugs. She has history of significant CHF from prior valvular heart disease related to endocarditis. She states that she started feeling short of breath about a week ago and the shortness of breath worsened. After she completed IV antibiotics in April she was put on doxycycline prophylaxis. She reports that she had not been taking the doxycycline. PAST MEDICAL HISTORY: Hepatitis C. IV drug use. prosthetic aortic valve replacement in 2010 and then redo aortic valve replacement in December 2015 MEDICATIONS: Current Medications Medications (Trade) Dose Ordered Sig/Jessica Route PRN Reason Start Time Stop Time Status Last Admin Dose Admin Sodium Chloride (NS Flush) 2 ml UNSCH PRN IV FLUSH FLUSH AFTER USING IV ACCESS 08/31/17 22:00 09/27/17 06:48 Sodium Chloride (NS Flush) 2 ml BID IV FLUSH 09/01/17 09:00 09/27/17 08:53 Acetaminophen (Tylenol) 650 mg Q6H PRN PO fever 08/31/17 22:00 09/24/17 01:19 Ondansetron HCl (Zofran Inj) 4 mg Q6H PRN IV PUSH NAUSEA OR VOMITING 08/31/17 22:00 09/13/17 21:22 Temazepam (Restoril) 15 mg HS PRN PO INSOMNIA 08/31/17 22:00 09/11/17 22:08 Miscellaneous Information 1 [id number] XX 08/31/17 22:00 Chlorhexidine Gluconate (Chlorhexidine 2% Cloth) Taper DAILY@04 TOP 09/01/17 04:00 08/28/18 03:59 09/11/17 03:54 Chlorhexidine Gluconate (Chlorhexidine 2% Cloth) 3 pack UNSCH PRN TOP HYGIENIC CARE 08/31/17 22:00 Senna/Docusate Sodium (Armida-Colace) 1 tab BID PO 09/01/17 09:00 09/27/17 08:55 Magnesium Hydroxide (Milk Of Magnesia Liq) 30 ml Q12H PRN PO Mild constipation 08/31/17 22:00 Sennosides (Senokot) 17.2 mg Q12H PRN PO Moderate constipation 08/31/17 22:00 Bisacodyl (Dulcolax Supp) 10 mg DAILY PRN RECTAL SEVERE CONSITIPATION 08/31/17 22:00 Lactulose (Lactulose Liq) 30 ml DAILY PRN PO SEVERE CONSITIPATION 08/31/17 22:00 Ampicillin Sodium 2000 mg/Sodium Chloride 100 ml @ 400 mls/hr Q6H IV 09/01/17 14:00 09/27/17 15:30 Loperamide HCl (Imodium) 2 mg Q4H PRN PO Diarrhea 09/03/17 16:15 09/05/17 14:32 Albuterol Sulfate (Albuterol Neb) 2.5 mg Q2HR NEB PRN NEB dyspnea 09/04/17 11:30 09/26/17 08:42 Acetaminophen/ Hydrocodone Bitart (Truxton 10-325 Mg) 1 tab Q4H PRN PO pain 1-5 09/09/17 15:00 09/14/17 05:02 Hydromorphone HCl (Dilaudid Pf Inj) 1 mg Q4H PRN IV PUSH PAIN SCALE 6 TO 10 09/12/17 19:00 09/27/17 15:30 Potassium Chloride (KCl) 60 meq Q12HR PO 09/19/17 09:45 09/27/17 08:54 Ceftriaxone Sodium 1000 mg/ Sodium Chloride 100 ml @ 200 mls/hr Q24H IV 09/23/17 16:00 09/27/17 15:31 Albumin Human 100 ml @ 60 mls/hr Q12H IV 09/23/17 18:00 09/27/17 06:17 Morphine Sulfate (Oramorph Sr) 15 mg Q12HR PO 09/25/17 21:00 09/27/17 08:55 Furosemide (Lasix Inj) 40 mg BID@ IV PUSH 09/26/17 09:00 09/27/17 08:53 Warfarin Sodium (Coumadin) 1 mg DAILY@16 PO 09/25/17 21:00 09/27/17 15:30 OBJECTIVE: Vital Signs Date Time Temp Pulse Resp B/P (MAP) Pulse Ox O2 Delivery O2 Flow Rate FiO2 09/27/17 16:46 18 09/27/17 12:11 98.7 114 22 101/64 (76) 92 09/27/17 11:48 95 Nasal Cannula 2.00 Humidified 09/27/17 10:02 18 09/27/17 08:00 98.8 118 22 113/55 (74) 95 09/27/17 08:00 121 09/27/17 04:00 97.8 122 24 117/51 (73) 93 09/27/17 04:00 Nasal Cannula 2.00 Humidified 09/27/17 04:00 122 09/27/17 00:00 98.0 118 23 96/63 (74) 94 09/27/17 00:00 Nasal Cannula 2.00 Humidified 09/27/17 00:00 121 09/26/17 20:24 100 Nasal Cannula 2.00 09/26/17 20:00 98.0 110 23 99/60 (73) 97 09/26/17 20:00 111 09/26/17 20:00 Nasal Cannula 2.00 Humidified Laboratory Tests Test 09/26/17 06:30 White Blood Count 14.1 TH/MM3 Red Blood Count 3.29 MIL/MM3 Hemoglobin 8.0 GM/DL Hematocrit 25.2 % Mean Corpuscular Volume 76.8 FL Mean Corpuscular Hemoglobin 24.2 PG Mean Corpuscular Hemoglobin Concent 31.5 % Red Cell Distribution Width 23.8 % Platelet Count 174 TH/MM3 Mean Platelet Volume 8.4 FL Laboratory Tests Test 09/25/17 18:00 09/26/17 06:30 Creatinine 1.57 MG/DL 1.53 MG/DL Estimat Glomerular Filtration Rate 37 ML/MIN 38 ML/MIN Blood Urea Nitrogen 20 MG/DL Random Glucose 79 MG/DL Calcium Level 8.4 MG/DL Sodium Level 130 MEQ/L Potassium Level 3.9 MEQ/L Chloride Level 93 MEQ/L Carbon Dioxide Level 25.5 MEQ/L Anion Gap 12 MEQ/L IMAGING: Chest X-Ray 09/26/17 0000 Signed Impressions: Service Date/Time: Tuesday, September 26, 2017 11:32 - CONCLUSION: 1. Improving patchy right lower lung zone airspace consolidation. Luis Leija MD Chest X-Ray 09/10/17 0600 Signed Impressions: Service Date/Time: Sunday, September 10, 2017 03:52 - CONCLUSION: There is a small to moderate size right pleural effusion with associated volume loss and/or airspace consolidation. The pleural effusion has increased from the prior examination. Adalid Galo MD Head CT 09/08/17 Signed Impressions: Service Date/Time: Friday, September 08, 2017 10:22 - CONCLUSION: 1. Focal area of decreased density involving the right parietal lobe. As a new finding from the prior exam. This could relate to a small infarct. MRI of the brain with gadolinium suggested to further evaluate. 2. Small lacunar infarction involving the left centrum semiovale. Ananth Ponce Jr., MD CT Angiography 09/08/17 Signed Impressions: Service Date/Time: Friday, September 08, 2017 10:28 - CONCLUSION: There extensive pulmonary emboli bilaterally. There is near complete cut off of the right lower lobe pulmonary artery. Prominent filling defects on the left as well. These findings were relayed to Dr. Dominguez immediately at the completion of the study. Scattered pulmonary infiltrates, small pleural effusion and extensive mediastinal lymphadenopathy as described above. Karsten Crowder MD Brain MRI 09/08/17 Signed Impressions: Service Date/Time: Friday, September 08, 2017 18:04 - CONCLUSION: Deterioration in the appearance of the scan. At least 3 focal areas of abnormal contrast enhancement are present scattered to in both hemispheres. Given the history this most likely represents developing areas cerebritis. Exam is compromised by an uncooperative patient and motion artifact. These 2 factors make detection of other abnormalities such as cortical cephalitis and meningitis difficult to exclude. Cannot exclude hemorrhagic lesions as well. There is no mass effect evident. Geremias Mauricio MD Renal Ultrasound 09/01/17 Signed Impressions: Service Date/Time: Friday, September 01, 2017 10:53 - CONCLUSION: 1. No evidence of hydronephrosis. 2. Thickening of the urinary bladder wall a 1.1 cm. 3. Prominent splenomegaly. Baldemar Pineda MD Chest X-Ray 09/01/17 Signed Impressions: Service Date/Time: Friday, September 01, 2017 09:36 - CONCLUSION: Right internal jugular central line in place with the tip overlying the SVC. A pneumothorax is not seen. Adalid Haney MD Breast Ultrasound 2/24/18 0000 Signed Impressions: Service Date/Time: Friday, September 01, 2017 10:48 - CONCLUSION: Negative targeted right breast ultrasound examination. Adalid Haney MD Lower Extremity Ultrasound 08/31/17 0000 Signed Impressions: Service Date/Time: Thursday, August 31, 2017 21:22 - CONCLUSION: 1. No sonographic evidence for lower extremity DVT. 2. Incidental note of bilateral inguinal adenopathy with the largest on the right measuring 3.3 cm and the largest on the left measuring 2.6 cm. This finding is nonspecific but is typically reactive in etiology. Luis Leija MD PHYSICAL EXAMINATION GENERAL: No acute distress. HEENT: No icterus. Oropharynx moist mucosa, no lesions. Neck: Supple without adenopathy. Lungs: Rhonchi at both lungs. Heart: 5/6 blowing systolic murmur at the upper right sternal border. Abdomen: Bowel sounds present, soft, obese, nontender. Extremities: Diffuse 3+ edema of the lower extremities. Left lower extremity has increased erythema. Increased warmth. No calf tenderness. No nail hemorrhages. SKIN: no diffuse rash. Neuro: No gross focal findings. Psychiatric: calm and cooperative. IMPRESSION 1. Sepsis. Strep Viridans. 2. Tricuspid valve endocarditis. Large vegetation. Tricuspid regurgitation. Patient evaluated by cardiovascular surgery and felt not to be a surgical candidate. 3. Bacteremia. Strep viridans. Blood cultures have remained negative on follow-up. Last positive blood culture was on 08/31. 4. History of prosthetic aortic valve and so likely recurrent prosthetic valve endocarditis. 5. Cerebritis on MRI. Also has parietal infarct noted on CT scan of the brain. 6. Left renal cortical and pulmonary and lower extremity septic emboli. 7. Leukocytosis secondary to sepsis from showering of emboli from endocarditis. 8. Acute renal failure. Kidney function improved. 9. Cellulitis of the left lower extremity. More evident today. RECOMMENDATIONS 1. Continue Ampicillin intravenous. 2. Stop ceftriaxone. 3. Add daptomycin. 4. Monitor clinical status. 5. Continue to monitor the left leg. Plan on intravenous antibiotics until October 12, for endocarditis. Which will be 6 weeks after the last positive blood culture. After that she should continue with prophylactic oral antibiotics indefinitely. Continue to monitor her blood counts and renal function. Edmar Sloan MD Sep 27, 2017 17:19
[2017-09-27] MEDS ORDERED: DAPTOmycin INJ 500 MG in SODIUM CHLORIDE 0.9% INJ 100 ML IV SCH (18:00)
[2017-09-27] MEDS: DAPTOmycin INJ 500 MG in SODIUM CHLORIDE 0.9% INJ 100 ML IV SCH (19:57)
[2017-09-27] MEDS: METOLAZONE 2.5 MG TAB PO SCH (22:27)
[2017-09-28] VITALS (12 sets, daily range): BP systolic 92–109; BP diastolic 57–76; PULSE 79–115; RESP 17–20; TEMP 97.2–99.1; O2SAT 92–99
[2017-09-28] MEDS: HYDROmorphone HCL PF 2 MG/ML VIAL IV PUSH PRN ×6 (00:20→23:58)
[2017-09-28] MEDS: AMPICILLIN INJ 2,000 MG in SODIUM CHLORIDE 0.9% INJ 100 ML IV SCH ×4 (01:40→19:49)
[2017-09-28] MEDS: CHLORHEXIDINE GLUCONATE 2 % 1 PACK (2 CLOTHS) TOP SCH (03:54)
[2017-09-28] MEDS: ALBUMIN 25% INJ 100 ML IV SCH ×2 (05:25→17:58)
[2017-09-28 05:56] LABS: PROTHROMBIN TIME - PATIENT 20.7 SEC (9.8-11.6)
[2017-09-28 06:29] LABS: BICARBONATE 28.7 MEQ/L (21.0-32.0); CALCIUM 7.9 MG/DL (8.5-10.1); CREATININE 1.34 MG/DL (0.50-1.00)
[2017-09-28] MEDS ORDERED: POTASSIUM CHLORIDE 25 MEQ EFFERVESCENT TAB PO ONE (07:00)
[2017-09-28] MEDS: POTASSIUM CHLOR 20 MEQ PREMIX 100 ML IV SCH ×2 (08:24→11:28)
[2017-09-28] MEDS: SODIUM CHLORIDE 0.9% FLUSH 10 ML FLUSH IV FLUSH SCH ×2 (08:25→20:09)
[2017-09-28] MEDS: FUROSEMIDE 20 MG/2 ML VIAL IV PUSH SCH ×2 (08:25→17:59)
[2017-09-28] MEDS: DOCUSATE SODIUM 50 MG/SENNA 8.6 MG TAB PO SCH ×2 (08:26→20:09)
[2017-09-28] MEDS: POTASSIUM CHLORIDE 10 MEQ CONTROLLED RELEASE TAB PO SCH ×2 (08:26→20:04)
[2017-09-28] MEDS: MORPHINE SULFATE 15 MG CONTROLLED RELEASE TAB PO SCH ×2 (08:26→22:07)
[2017-09-28 10:36] LABS: MAGNESIUM 1.4 MG/DL (1.5-2.5)
--- NOTE | 2017-09-28 11:19 | HHI.NPPN ---
Subjective History of Present Illness This is a 37-year-old female with past medical history of IV drug abuse, history of hepatitis C, narcotic dependency, came to the hospital with complaint of shortness of breath and swelling. Nephrology called to see the patient because of elevated BUN and creatinine. The patient has creatinine of 4.5 on admission which improved and it was staying in the range of 0.6-0.8 until 6 days ago, then it started going up again and now it is 1.7. The patient has increased swelling of the legs and the patient was diagnosed with endocarditis and she has blood culture positive for Strep viridans. Patient has been following with the ID and she was getting furosemide, which was stopped today this morning because of increased creatinine and she was on vancomycin and rifampicin. The last dose of vancomycin seems to be given possibly on 09/09/2017 or even later, but her level was high and the highest level we have was 25.8, which was on 09/09/2017 but on 09/15/2017 it was 23.9. The patient has been actively using IV drugs before she came to the hospital and noticed to have more swelling in her legs. She is complaining of generalized body pain. There is no nausea, vomiting. Denies any diarrhea. Her appetite is normal. Additional Remarks Reports continued mild SOB. Continue with bilateral lower extremity edema. (Deena Oh) Review of Systems General Constitutional: Fatigue (Deena Oh) Respiratory Lungs: SOB (Deena Oh) Cardiovascular Cardiac: Edema, FOREMAN Cardiac Remarks Denies CP (Deena Oh) Gastrointestinal GI Remarks denies abdominal pain (Deena Oh) Objective Data Data 09/28/17 09/29/17 19:00 07:00 Intake Total 100 ml Balance 100 ml IV Total 100 ml Vital Signs Date Time Temp Pulse Resp B/P (MAP) Pulse Ox O2 Delivery O2 Flow Rate FiO2 09/28/17 11:00 98.5 103 17 92/58 (69) 92 09/28/17 10:24 18 09/28/17 10:18 109 09/28/17 09:43 99 Nasal Cannula 2.00 09/28/17 09:04 96 Nasal Cannula 2.00 Humidified 09/28/17 07:00 97.2 79 17 109/67 (81) 96 09/28/17 06:09 18 09/28/17 04:00 115 09/28/17 04:00 98.6 115 20 107/60 (76) 93 09/28/17 00:00 99.1 112 18 103/76 (85) 94 09/28/17 00:00 107 09/27/17 22:10 Room Air 09/27/17 20:00 99.0 103 20 99/55 (70) 93 09/27/17 18:13 105 09/27/17 16:00 98.4 104 22 95/59 (71) 94 09/27/17 12:11 98.7 114 22 101/64 (76) 92 09/27/17 12:00 112 09/27/17 11:48 95 Nasal Cannula 2.00 Humidified (Deena Oh) -: 09/26/17 0630 09/28/17 0525 Imaging Last Impressions Chest X-Ray 09/26/17 0000 Signed Impressions: Service Date/Time: Tuesday, September 26, 2017 11:32 - CONCLUSION: 1. Improving patchy right lower lung zone airspace consolidation. Luis Leija MD Catheter Placement X-Ray 09/24/17 0000 Signed Impressions: Service Date/Time: Sunday, September 24, 2017 11:16 - CONCLUSION: Uncomplicated venous catheter change as above. Luis Leija MD Head CT 09/08/17 0000 Signed Impressions: Service Date/Time: Friday, September 08, 2017 10:22 - CONCLUSION: 1. Focal area of decreased density involving the right parietal lobe. As a new finding from the prior exam. This could relate to a small infarct. MRI of the brain with gadolinium suggested to further evaluate. 2. Small lacunar infarction involving the left centrum semiovale. Ananth Ponce Jr., MD CT Angiography 09/08/17 0000 Signed Impressions: Service Date/Time: Friday, September 08, 2017 10:28 - CONCLUSION: There extensive pulmonary emboli bilaterally. There is near complete cut off of the right lower lobe pulmonary artery. Prominent filling defects on the left as well. These findings were relayed to Dr. Dominguez immediately at the completion of the study. Scattered pulmonary infiltrates, small pleural effusion and extensive mediastinal lymphadenopathy as described above. Karsten Crowder MD Brain MRI 09/08/17 0000 Signed Impressions: Service Date/Time: Friday, September 08, 2017 18:04 - CONCLUSION: Deterioration in the appearance of the scan. At least 3 focal areas of abnormal contrast enhancement are present scattered to in both hemispheres. Given the history this most likely represents developing areas cerebritis. Exam is compromised by an uncooperative patient and motion artifact. These 2 factors make detection of other abnormalities such as cortical cephalitis and meningitis difficult to exclude. Cannot exclude hemorrhagic lesions as well. There is no mass effect evident. Geremias Mauricio MD Chest CT 09/03/17 0000 Signed Impressions: Service Date/Time: Sunday, September 03, 2017 12:41 - CONCLUSION: 1. There are at least 5 pulmonary nodules present bilaterally with the largest measuring 19 mm. None demonstrate cavitation but it is possible that these represent septic emboli. Suggest followup to assess for change. 2. Splenomegaly with subtle wedge-shaped areas of low-density in the mid spleen which could represent infarcts. 3. Mild cardiomegaly in this patient post aortic valve replacement. Low density of the cardiac blood pool suggests anemia. Adalid Galo MD Aorta w/Runoff CTA 09/02/17 0000 Signed Impressions: Service Date/Time: Saturday, September 02, 2017 12:47 - CONCLUSION: Left renal cortical infarction. 5-6 cm length total occlusion of the left superficial femoral artery in the proximal thigh. Nodular parenchymal opacities in the lung bases bilaterally See above discussion. Adalid Dallas MD Renal Ultrasound 09/01/17 0000 Signed Impressions: Service Date/Time: Friday, September 01, 2017 10:53 - CONCLUSION: 1. No evidence of hydronephrosis. 2. Thickening of the urinary bladder wall a 1.1 cm. 3. Prominent splenomegaly. Baldemar Pineda MD Breast Ultrasound 09/01/17 0000 Signed Impressions: Service Date/Time: Friday, September 01, 2017 10:48 - CONCLUSION: Negative targeted right breast ultrasound examination. Adalid Haney MD Lower Extremity Ultrasound 08/31/17 0000 Signed Impressions: Service Date/Time: Thursday, August 31, 2017 21:22 - CONCLUSION: 1. No sonographic evidence for lower extremity DVT. 2. Incidental note of bilateral inguinal adenopathy with the largest on the right measuring 3.3 cm and the largest on the left measuring 2.6 cm. This finding is nonspecific but is typically reactive in etiology. Luis Leija MD (Deena Oh) Physical Exam General Appearance: No Acute Distress, Anxious (Deena Oh [employer]PORATE TRAVEL MANAGER) Eyes Eye Exam: Pupils Equal (Deena Oh [employer]PORATE TRAVEL MANAGER) Throat Throat Exam: Oral Mucosa Mertzon & Moist (Deena Oh [employer]PORATE TRAVEL MANAGER) Neck Neck Exam: Neck Supple (Deena Oh [employer]PORATE TRAVEL MANAGER) Pulmonary Resp Exam: Clear Bilaterally (Deena Oh [employer]PORATE TRAVEL MANAGER) Cardiology CV Exam: Regular, Normal Sinus Rhythm (Deena Oh) Gastrointestinal/Abdomen GI Exam: Soft, Non-Tender (Deena Oh [employer]PORATE TRAVEL MANAGER) Integumentary Skin Exam: Dry, Intact (Deena Oh) Extremeties Extremities Exam: Pitting Edema (Deena Oh) Neurologic Neuro Exam: Alert, Awake, Oriented (Deena OhP) Psychiatric Psych Exam: Appropriate Responses (Deena Oh) Assessment/Plan Discussed Condition With: Patient Assessment Summary: DUONG/Acute Renal Failure Problem List: (1) Acute kidney injury ICD Codes: N17.9 - Acute kidney failure, unspecified Status: Acute Plan: DUONG likely due to vancomycin toxicity, post-infectious GN is unlikely. Possibility of ATN or pre renal. Urine eosinophils negative, complements wnl Creatinine stable Good UOP Plan Creatinine is stable at 1.34 Hypokalemia replacement given Continue Lasix 40 mg IV BID and metolazone for edema. Continue to monitor BMP and UOP Encouraged to elevate legs throughout day Avoid nephrotoxins. (2) Prosthetic valve endocarditis ICD Codes: T82.6XXA - Infection and inflammatory reaction due to cardiac valve prosthesis, initial encounter Status: Acute Plan: septic endocarditis with strep viridans IV drug use, pulmonary emboli as well. Continues antibiotics per ID continue renal dosing antibiotics. (3) Peripheral arterial occlusive disease ICD Codes: I77.9 - Disorder of arteries and arterioles, unspecified Plan: seen with vascular, continue medical management Hold contrast studies as possible. (4) Hepatitis C ICD Codes: B19.20 - Unspecified viral hepatitis C without hepatic coma Status: Chronic (Deena Oh) Problem List: (1) Acute kidney injury ICD Codes: N17.9 - Acute kidney failure, unspecified Status: Acute Plan: DUONG likely due to vancomycin toxicity, post-infectious GN is unlikely. Possibility of ATN or pre renal. Urine eosinophils negative, complements wnl Creatinine stable Good UOP Plan Creatinine is stable at 1.34 Hypokalemia replacement given Continue Lasix 40 mg IV BID and metolazone for edema. Continue to monitor BMP and UOP Encouraged to elevate legs throughout day Avoid nephrotoxins. Patient seen and examined, agree with above. Continue diuretics and follow the BMP and urine out put. (2) Prosthetic valve endocarditis ICD Codes: T82.6XXA - Infection and inflammatory reaction due to cardiac valve prosthesis, initial encounter Status: Acute Plan: septic endocarditis with strep viridans IV drug use, pulmonary emboli as well. Continues antibiotics per ID continue renal dosing antibiotics. (3) Peripheral arterial occlusive disease ICD Codes: I77.9 - Disorder of arteries and arterioles, unspecified Plan: seen with vascular, continue medical management Hold contrast studies as possible. (4) Hepatitis C ICD Codes: B19.20 - Unspecified viral hepatitis C without hepatic coma Status: Chronic (Randal Salinas MD) Problem Qualifiers (1) Prosthetic valve endocarditis: Qualified Codes: T82.6XXA - Infection and inflammatory reaction due to cardiac valve prosthesis, initial encounter Deena Oh Sep 28, 2017 11:19 Randal Salinas MD Oct 01, 2017 19:25
[2017-09-28] MEDS: METOLAZONE 2.5 MG TAB PO SCH ×2 (12:25→22:08)
[2017-09-28] MEDS: WARFARIN SOD 1 MG TAB PO SCH (15:01)
--- NOTE | 2017-09-28 16:15 | HHI.PR ---
Subjective Remarks Left toes have purple discoloration Patient Denies cp/sob Left leg very tender to palpation and reddened. Objective Vitals Vital Signs Date Time Temp Pulse Resp B/P (MAP) Pulse Ox O2 Delivery O2 Flow Rate FiO2 09/28/17 12:56 18 09/28/17 12:00 108 09/28/17 11:00 98.5 103 17 92/58 (69) 92 09/28/17 10:24 18 09/28/17 10:18 109 09/28/17 09:43 99 Nasal Cannula 2.00 09/28/17 09:04 96 Nasal Cannula 2.00 Humidified 09/28/17 07:00 97.2 79 17 109/67 (81) 96 09/28/17 04:00 115 09/28/17 04:00 98.6 115 20 107/60 (76) 93 09/28/17 00:00 99.1 112 18 103/76 (85) 94 09/28/17 00:00 107 09/27/17 22:10 Room Air 09/27/17 20:00 99.0 103 20 99/55 (70) 93 09/27/17 18:13 105 I/O 09/27/17 09/27/17 09/27/17 09/28/17 09/28/17 09/28/17 07:00 15:00 23:00 07:00 15:00 23:00 Intake Total 2250 ml 2200 ml 620 ml 200 ml 100 ml Output Total 2450 ml 1700 ml Balance -200 ml 500 ml 620 ml 200 ml 100 ml Intake Oral 2050 ml 1700 ml 420 ml IV Total 200 ml 500 ml 200 ml 200 ml 100 ml Output Urine Total 2450 ml 1700 ml # Voids 3 4 # Bowel Movements 0 1 0 Result Diagram: 09/26/17 0630 09/28/17 0525 Imaging Last Impressions Chest X-Ray 09/26/17 0000 Signed Impressions: Service Date/Time: Tuesday, September 26, 2017 11:32 - CONCLUSION: 1. Improving patchy right lower lung zone airspace consolidation. Luis Leija MD Catheter Placement X-Ray 09/24/17 0000 Signed Impressions: Service Date/Time: Sunday, September 24, 2017 11:16 - CONCLUSION: Uncomplicated venous catheter change as above. Luis Leija MD Head CT 09/08/17 0000 Signed Impressions: Service Date/Time: Friday, September 08, 2017 10:22 - CONCLUSION: 1. Focal area of decreased density involving the right parietal lobe. As a new finding from the prior exam. This could relate to a small infarct. MRI of the brain with gadolinium suggested to further evaluate. 2. Small lacunar infarction involving the left centrum semiovale. Ananth Ponce Jr., MD CT Angiography 09/08/17 0000 Signed Impressions: Service Date/Time: Friday, September 08, 2017 10:28 - CONCLUSION: There extensive pulmonary emboli bilaterally. There is near complete cut off of the right lower lobe pulmonary artery. Prominent filling defects on the left as well. These findings were relayed to Dr. Dominguez immediately at the completion of the study. Scattered pulmonary infiltrates, small pleural effusion and extensive mediastinal lymphadenopathy as described above. Karsten Crowder MD Brain MRI 09/08/17 0000 Signed Impressions: Service Date/Time: Friday, September 08, 2017 18:04 - CONCLUSION: Deterioration in the appearance of the scan. At least 3 focal areas of abnormal contrast enhancement are present scattered to in both hemispheres. Given the history this most likely represents developing areas cerebritis. Exam is compromised by an uncooperative patient and motion artifact. These 2 factors make detection of other abnormalities such as cortical cephalitis and meningitis difficult to exclude. Cannot exclude hemorrhagic lesions as well. There is no mass effect evident. Geremias Mauricio MD Chest CT 09/03/17 0000 Signed Impressions: Service Date/Time: Sunday, September 03, 2017 12:41 - CONCLUSION: 1. There are at least 5 pulmonary nodules present bilaterally with the largest measuring 19 mm. None demonstrate cavitation but it is possible that these represent septic emboli. Suggest followup to assess for change. 2. Splenomegaly with subtle wedge-shaped areas of low-density in the mid spleen which could represent infarcts. 3. Mild cardiomegaly in this patient post aortic valve replacement. Low density of the cardiac blood pool suggests anemia. Adalid Galo MD Aorta w/Runoff CTA 09/02/17 0000 Signed Impressions: Service Date/Time: Saturday, September 02, 2017 12:47 - CONCLUSION: Left renal cortical infarction. 5-6 cm length total occlusion of the left superficial femoral artery in the proximal thigh. Nodular parenchymal opacities in the lung bases bilaterally See above discussion. Adalid Dallas MD Renal Ultrasound 09/01/17 0000 Signed Impressions: Service Date/Time: Friday, September 01, 2017 10:53 - CONCLUSION: 1. No evidence of hydronephrosis. 2. Thickening of the urinary bladder wall a 1.1 cm. 3. Prominent splenomegaly. Baldemar Pineda MD Breast Ultrasound 09/01/17 0000 Signed Impressions: Service Date/Time: Friday, September 01, 2017 10:48 - CONCLUSION: Negative targeted right breast ultrasound examination. Adalid Haney MD Lower Extremity Ultrasound 08/31/17 0000 Signed Impressions: Service Date/Time: Thursday, August 31, 2017 21:22 - CONCLUSION: 1. No sonographic evidence for lower extremity DVT. 2. Incidental note of bilateral inguinal adenopathy with the largest on the right measuring 3.3 cm and the largest on the left measuring 2.6 cm. This finding is nonspecific but is typically reactive in etiology. Luis Leija MD Objective Remarks AAOx3 NAD Clear lungs BL S1S2 4/6 systolic ejection murmur +4 BL lower extremity edema. Erythema, increased warmth and tenderness to palpation of the left lower leg. Dark blue discoloration of toes of left leg. Pedal and tial pulses not palpable due to edema. Good capillary refill. Medications and IVs Current Medications Medications (Trade) Dose Ordered Sig/Jessica Route Start Time Stop Time Status Last Admin (NS Flush) 2 ml UNSCH PRN IV FLUSH 08/31/17 22:00 09/27/17 06:48 (NS Flush) 2 ml BID IV FLUSH 09/01/17 09:00 09/28/17 08:25 (Tylenol) 650 mg Q6H PRN PO 08/31/17 22:00 09/24/17 01:19 (Zofran Inj) 4 mg Q6H PRN IV PUSH 08/31/17 22:00 09/13/17 21:22 (Restoril) 15 mg HS PRN PO 08/31/17 22:00 09/11/17 22:08 Miscellaneous Information 1 Q361D XX 08/31/17 22:00 (Chlorhexidine 2% Cloth) Taper DAILY@04 TOP 09/01/17 04:00 08/28/18 03:59 09/11/17 03:54 (Chlorhexidine 2% Cloth) 3 pack UNSCH PRN TOP 08/31/17 22:00 (Armida-Colace) 1 tab BID PO 09/01/17 09:00 09/28/17 08:26 (Milk Of Magnesia Liq) 30 ml Q12H PRN PO 08/31/17 22:00 (Senokot) 17.2 mg Q12H PRN PO 08/31/17 22:00 (Dulcolax Supp) 10 mg DAILY PRN RECTAL 08/31/17 22:00 (Lactulose Liq) 30 ml DAILY PRN PO 08/31/17 22:00 Ampicillin Sodium 2000 mg/Sodium Chloride 100 ml @ 400 mls/hr Q6H IV 09/01/17 14:00 09/28/17 15:01 (Imodium) 2 mg Q4H PRN PO 09/03/17 16:15 09/05/17 14:32 (Albuterol Neb) 2.5 mg Q2HR NEB PRN NEB 09/04/17 11:30 09/26/17 08:42 ([place] 10-325 Mg) 1 tab Q4H PRN PO 09/09/17 15:00 09/14/17 05:02 (Dilaudid Pf Inj) 1 mg Q4H PRN IV PUSH 09/12/17 19:00 09/28/17 15:59 (KCl) 60 meq Q12HR PO 09/19/17 09:45 09/28/17 08:26 Albumin Human 100 ml @ 60 mls/hr Q12H IV 09/23/17 18:00 09/28/17 05:25 (Oramorph Sr) 15 mg Q12HR PO 09/25/17 21:00 09/28/17 08:26 (Lasix Inj) 40 mg BID@,18 IV PUSH 09/26/17 09:00 09/28/17 08:25 (Coumadin) 1 mg DAILY@16 PO 09/25/17 21:00 09/28/17 15:01 Daptomycin 500 mg/ Sodium Chloride 100 ml @ 200 mls/hr Q24H IV 09/27/17 20:00 09/27/17 19:57 (Zaroxolyn) 2.5 mg BID PO 09/27/17 22:00 09/28/17 12:25 Date of Insertion: Sep 24, 2017 Line: Central Venous Catheter Side: Right Location: Internal, Jugular A/P Problem List: (1) Prosthetic valve endocarditis ICD Code: T82.6XXA - Infection and inflammatory reaction due to cardiac valve prosthesis, initial encounter Status: Acute (2) Bacteremia ICD Code: R78.81 - Bacteremia (3) Septic pulmonary embolism ICD Code: I26.90 - Septic pulmonary embolism without acute cor pulmonale Status: Acute (4) IVDU (intravenous drug user) ICD Code: F19.90 - Other psychoactive substance use, unspecified, uncomplicated (5) Anemia ICD Code: D64.9 - Anemia, unspecified Status: Chronic (6) DUONG (acute kidney injury) ICD Code: N17.9 - Acute kidney failure, unspecified Plan: Creatinine slightly worsened from 1.52-1.57. Nephrology consulted. Possible ATN from vancomycin toxicity or from infection. Urine eosinophils negative. Continue to hold diuretics as per nephrology. Nephrology recommends waiting for some improvement in renal function before some diuretics could be administered. Continue to monitor BUN and creatinine, avoid nephrotoxins. 09/24 As per Nephrology continue Lasix 20 mg IV BID with albumin. Creatinine slightly elevated from 1.57 - 1.62. 09/25 continue IV diuretics as above. Continue to monitor BUN and creatinine. Creatinine pending. 09/27 creatinine is trending down to 1.53. Continue to follow-up management as per nephrology. Continue with diuresis with Lasix which has been increased from 20 mg IV twice daily to 40 mg IV twice daily. Metolazone added to the regime. 09/28 creatinine continues to trend down and today is 1.34. However up of review of daily balance patient is 1 liter positive[address] I will place the patient on fluid restriction on an effort to have the patient with a negative balance tomorrow. Continue to monitor BUN and creatinine, avoid nephrotoxins. Continue diuretics as per nephrology. The patient currently on Lasix 40 mg IV twice daily and metolazone. Continue to monitor strict I's and O's. (7) Cellulitis of left lower extremity ICD Code: L03.116 - Cellulitis of left lower limb Plan: The patient has erythema, increased warmth and tenderness to palpation on the left lower extremity. The patient likely is developing a left lower extremity cellulitis. 09/26 discussed the case with Dr. Sloan from infectious disease. Recommends observation for now. 09/28 Leg looks more erythematous and toes in lower extremities have a darker discoloration. Rocephin discontinued by ID and patient placed on Daptomycin. Monitor for response. Will order check of pedal pulses with arterial Doppler. Discussed with RN. (8) Purple toe syndrome ICD Code: I75.029 - Atheroembolism of unspecified lower extremity Plan: Patient has a blue/purple discoloration of the left toes. The patient is on Coumadin however INR is 2.0 today. The patient is on Coumadin 1 mg p.o. daily, will give an extra dose of 1 mg of Coumadin today. Consult pharmacy for INR dosing. Monitor PT/INR daily, goal INR should be 2.5-3.5 given the patient has an aortic prosthetic valve. Assessment and Plan (1) Prosthetic valve endocarditis Plan: Continue antibiotics as per ID. The patient was initially on IV ampicillin. On 09/24 ID started Rocephin for pulmonary coverage since chest x-ray showed a developing infiltrate. On 09/25 palliative care consulted by hematology. As per hematology documentation the patient requested to talk to palliative care to see if she is a hospice candidate. Discussed with palliative care who states that the patient's goals are aggressive and she wants to get better. The patient definitely is a hospice candidate, however her goals are not hospice appropriate. Patient was started on Oramorph SR 30 mg p.o. twice a day for pain control. 09/28 patient with what I suspect purple toe syndrome. Start the patient on a heparin drip until the patient's INR reaches 2.5. Goal INR should be 2.5-3.5 since the patient has an aortic prosthetic valve. Will reconsult vascular surgery. Pedal pulses present by Doppler -obtained by me. (2) Bacteremia Plan: Blood cultures obtained on 08/31 growing strep viridans. Subsequent repeat blood cultures negative. 09/24 sp Exchange of Right IJ central line. Continue antibiotics as per ID recommendations. (3) Septic pulmonary embolism Plan: As observed on a CT angiography of the chest obtained on 09/08/17. chocardiogram on 09/08 showed an estimated EF of 50-55%. ++severe tricuspid regurgitation with prosthesis in place. ++2 x 4 cm mobile vegetation was seen on the valve. The right atrium and right ventricle were normal in size and function Hematology following. Management of Coumadin as per hematology recommendations. Goal INR 2.5-3.5 given the presence of a prosthetic aortic valve. (4) IVDU (intravenous drug user) Plan: Counseled on drug cessation. (5) Anemia Plan: Likely secondary to inflammation/infection. No evidence of bleeding or hemolysis. Monitor hemoglobin and transfuse as needed. Discharge Planning Continue to monitor on the medical floor. Problem Qualifiers (1) Prosthetic valve endocarditis: Qualified Codes: T82.6XXA - Infection and inflammatory reaction due to cardiac valve prosthesis, initial encounter (2) Anemia: Qualified Codes: D63.8 - Anemia in other chronic diseases classified elsewhere (3) Purple toe syndrome: Qualified Codes: I75.022 - Atheroembolism of left lower extremity Jaylen Livingston MD Sep 28, 2017 16:15
[2017-09-28] MEDS ORDERED: WARFARIN SOD 1 MG TAB PO ONE (17:00)
--- NOTE | 2017-09-28 17:05 | HHI.IDPN ---
Note Infectious Disease Note Patient sitting up in a chair. Patient has some shortness of breath. Notes pain in the left leg. Afebrile. Still has significant redness of the left lower extremity. 36-year-old white female who has a history of endocarditis and has been admitted several times for the same. The patient developed shortness of breath, fever and chills, and presented to the emergency department. The patient is noted to be actively using IV drugs. She has history of significant CHF from prior valvular heart disease related to endocarditis. She states that she started feeling short of breath about a week ago and the shortness of breath worsened. After she completed IV antibiotics in April she was put on doxycycline prophylaxis. She reports that she had not been taking the doxycycline. PAST MEDICAL HISTORY: Hepatitis C. IV drug use. prosthetic aortic valve replacement in 2010 and then redo aortic valve replacement in December 2015 Antibiotics. Daptomycin. Ampicillin. OBJECTIVE: Vital Signs Date Time Temp Pulse Resp B/P (MAP) Pulse Ox O2 Delivery O2 Flow Rate FiO2 09/28/17 16:00 97.4 107 18 99/57 (71) 94 09/28/17 12:56 18 09/28/17 12:00 108 09/28/17 11:00 98.5 103 17 92/58 (69) 92 09/28/17 10:24 18 09/28/17 10:18 109 09/28/17 09:43 99 Nasal Cannula 2.00 09/28/17 09:04 96 Nasal Cannula 2.00 Humidified 09/28/17 07:00 97.2 79 17 109/67 (81) 96 09/28/17 04:00 115 09/28/17 04:00 98.6 115 20 107/60 (76) 93 09/28/17 00:00 99.1 112 18 103/76 (85) 94 09/28/17 00:00 107 09/27/17 22:10 Room Air 09/27/17 20:00 99.0 103 20 99/55 (70) 93 09/27/17 18:13 105 Laboratory Tests Test 09/28/17 05:25 Blood Urea Nitrogen 17 MG/DL Creatinine 1.34 MG/DL Random Glucose 113 MG/DL Calcium Level 7.9 MG/DL Sodium Level 131 MEQ/L Potassium Level 2.6 MEQ/L Chloride Level 91 MEQ/L Carbon Dioxide Level 28.7 MEQ/L Anion Gap 11 MEQ/L Estimat Glomerular Filtration Rate 45 ML/MIN Phosphorus Level 3.0 MG/DL Magnesium Level 1.4 MG/DL IMAGING: Chest X-Ray 09/26/17 0000 Signed Impressions: Service Date/Time: Tuesday, September 26, 2017 11:32 - CONCLUSION: 1. Improving patchy right lower lung zone airspace consolidation. Luis Leija MD Chest X-Ray 09/10/17 0600 Signed Impressions: Service Date/Time: Sunday, September 10, 2017 03:52 - CONCLUSION: There is a small to moderate size right pleural effusion with associated volume loss and/or airspace consolidation. The pleural effusion has increased from the prior examination. Adalid Galo MD Head CT 09/08/17 Signed Impressions: Service Date/Time: Friday, September 08, 2017 10:22 - CONCLUSION: 1. Focal area of decreased density involving the right parietal lobe. As a new finding from the prior exam. This could relate to a small infarct. MRI of the brain with gadolinium suggested to further evaluate. 2. Small lacunar infarction involving the left centrum semiovale. Ananth Ponce Jr., MD CT Angiography 09/08/17 Signed Impressions: Service Date/Time: Friday, September 08, 2017 10:28 - CONCLUSION: There extensive pulmonary emboli bilaterally. There is near complete cut off of the right lower lobe pulmonary artery. Prominent filling defects on the left as well. These findings were relayed to Dr. Dominguez immediately at the completion of the study. Scattered pulmonary infiltrates, small pleural effusion and extensive mediastinal lymphadenopathy as described above. Karsten Crowder MD Brain MRI 09/08/17 0000 Signed Impressions: Service Date/Time: Friday, September 08, 2017 18:04 - CONCLUSION: Deterioration in the appearance of the scan. At least 3 focal areas of abnormal contrast enhancement are present scattered to in both hemispheres. Given the history this most likely represents developing areas cerebritis. Exam is compromised by an uncooperative patient and motion artifact. These 2 factors make detection of other abnormalities such as cortical cephalitis and meningitis difficult to exclude. Cannot exclude hemorrhagic lesions as well. There is no mass effect evident. Geremias Mauricio MD Renal Ultrasound 09/01/17 0000 Signed Impressions: Service Date/Time: Friday, September 01, 2017 10:53 - CONCLUSION: 1. No evidence of hydronephrosis. 2. Thickening of the urinary bladder wall a 1.1 cm. 3. Prominent splenomegaly. Baldemar Pineda MD Chest X-Ray 09/01/17 0000 Signed Impressions: Service Date/Time: Friday, September 01, 2017 09:36 - CONCLUSION: Right internal jugular central line in place with the tip overlying the SVC. A pneumothorax is not seen. Adalid Haney MD Breast Ultrasound 09/01/17 Signed Impressions: Service Date/Time: Friday, September 01, 2017 10:48 - CONCLUSION: Negative targeted right breast ultrasound examination. Adalid Haney MD Lower Extremity Ultrasound 08/31/17 0000 Signed Impressions: Service Date/Time: Thursday, August 31, 2017 21:22 - CONCLUSION: 1. No sonographic evidence for lower extremity DVT. 2. Incidental note of bilateral inguinal adenopathy with the largest on the right measuring 3.3 cm and the largest on the left measuring 2.6 cm. This finding is nonspecific but is typically reactive in etiology. Luis Leija MD PHYSICAL EXAMINATION GENERAL: No acute distress. HEENT: No icterus. Oropharynx moist mucosa, no lesions. Neck: Supple without adenopathy. Lungs: Rhonchi at both lungs. Heart: 5/6 blowing systolic murmur at the upper right sternal border. Abdomen: Bowel sounds present, soft, obese, nontender. Extremities: Diffuse 3+ edema of the lower extremities. Left lower extremity has increased erythema. Increased warmth. No calf tenderness. Left third and fifth toes have cyanosis at the tuft. SKIN: no diffuse rash. Neuro: No gross focal findings. Psychiatric: calm and cooperative. IMPRESSION 1. Sepsis. Strep Viridans. 2. Tricuspid valve endocarditis. Large vegetation. Tricuspid regurgitation. Patient evaluated by cardiovascular surgery and felt not to be a surgical candidate. 3. Bacteremia. Strep viridans. Blood cultures have remained negative on follow-up. Last positive blood culture was on 08/31. 4. History of prosthetic aortic valve and so likely recurrent prosthetic valve endocarditis. 5. Cerebritis on MRI. Also has parietal infarct noted on CT scan of the brain. 6. Left renal cortical and pulmonary and lower extremity septic emboli. 7. Leukocytosis secondary to sepsis from showering of emboli from endocarditis. 8. Acute renal failure. Kidney function improved. 9. Cellulitis of the left lower extremity. 10. Cyanosis of the fifth and third toes on the left foot. Questionable new embolic lesions. RECOMMENDATIONS 1. Continue Ampicillin intravenous. 2. Continue daptomycin. 3. Monitor clinical status. 4. Continue to monitor the left leg. 5. Consider repeat echocardiogram. 6. Repeat blood cultures if temperature becomes elevated. Plan on intravenous antibiotics until October 12, for endocarditis. Which will be 6 weeks after the last positive blood culture. After that she should continue with prophylactic oral antibiotics indefinitely. Continue to monitor her blood counts and renal function. Edmar Sloan MD Sep 28, 2017 17:05
[2017-09-28] MEDS: MAGNESIUM SULFATE 1 GM PREMIX 100 ML IV SCH ×2 (17:58→18:16)
[2017-09-28 18:52] LABS: PROTHROMBIN TIME - PATIENT 20.4 SEC (9.8-11.6)
[2017-09-28] MEDS: DAPTOmycin INJ 500 MG in SODIUM CHLORIDE 0.9% INJ 100 ML IV SCH (20:14)
[2017-09-28] MEDS: HEPARIN-D5W 25,000 U/250 ML 250 ML IV PRN (22:18)
[2017-09-29] VITALS (9 sets, daily range): BP systolic 95–106; BP diastolic 52–65; PULSE 96–110; RESP 19–20; TEMP 97.5–98.7; O2SAT 92–96
[2017-09-29] MEDS: AMPICILLIN INJ 2,000 MG in SODIUM CHLORIDE 0.9% INJ 100 ML IV SCH ×4 (02:20→20:43)
[2017-09-29] MEDS: CHLORHEXIDINE GLUCONATE 2 % 1 PACK (2 CLOTHS) TOP SCH (03:55)
[2017-09-29] MEDS: HYDROmorphone HCL PF 2 MG/ML VIAL IV PUSH PRN ×5 (04:01→21:58)
[2017-09-29 05:03] LABS: HEMATOCRIT 25.9 % (35.0-46.0); HEMOGLOBIN 8.3 GM/DL (11.6-15.3); MEAN CELL VOLUME 75.7 FL (80.0-100.0); MEAN CORPUSCULAR HEMOGLOBIN 24.4 PG (27.0-34.0); MEAN CORPUSCULAR HGB CONC 32.2 % (32.0-36.0); MEAN PLATELET VOLUME 8.5 FL (7.0-11.0); PLATELET COUNT 188 TH/MM3 (150-450); RED BLOOD COUNT 3.42 MIL/MM3 (4.00-5.30); RED CELL DISTRIBUTION WIDTH 23.2 % (11.6-17.2); WHITE BLOOD COUNT 14.3 TH/MM3 (4.0-11.0)
[2017-09-29 05:25] LABS: BICARBONATE 30.5 MEQ/L (21.0-32.0); CALCIUM 8.2 MG/DL (8.5-10.1); CREATININE 1.37 MG/DL (0.50-1.00)
[2017-09-29 05:28] LABS: PROTHROMBIN TIME - PATIENT 20.3 SEC (9.8-11.6)
[2017-09-29] MEDS ORDERED: POTASSIUM CHLORIDE 20 MEQ CONTROLLED RELEASE TAB PO ONE (05:45)
[2017-09-29] MEDS: ALBUMIN 25% INJ 100 ML IV SCH ×2 (06:03→17:14)
[2017-09-29] MEDS: POTASSIUM CHLOR 20 MEQ PREMIX 100 ML IV SCH ×2 (06:03→08:21)
[2017-09-29] MEDS: POTASSIUM CHLORIDE 10 MEQ CONTROLLED RELEASE TAB PO SCH ×2 (08:12→20:42)
[2017-09-29] MEDS: METOLAZONE 2.5 MG TAB PO SCH ×2 (08:12→20:43)
[2017-09-29] MEDS: DOCUSATE SODIUM 50 MG/SENNA 8.6 MG TAB PO SCH ×2 (08:14→20:50)
[2017-09-29] MEDS: FUROSEMIDE 20 MG/2 ML VIAL IV PUSH SCH ×2 (08:14→17:14)
[2017-09-29] MEDS: SODIUM CHLORIDE 0.9% FLUSH 10 ML FLUSH IV FLUSH SCH ×2 (08:18→20:50)
--- NOTE | 2017-09-29 09:20 | PD.VS.PN ---
Subjective Subjective/Hospital Course Pt known to me and has L SFA occlusion likely bacterial emboli perfusion was reasonable in MICU and motor intact so elected for aggressive anticoagulation which she needs anyways for prosthetic valve called back bc of blue toes Objective Vitals/I&O Date Time Temp Pulse Resp B/P (MAP) Pulse Ox O2 Delivery O2 Flow Rate FiO2 09/29/17 04:57 19 09/29/17 04:13 104 09/29/17 04:00 98.1 106 19 106/56 (73) 93 09/29/17 00:00 Room Air 09/29/17 00:00 98.2 107 19 106/65 (79) 94 09/28/17 23:45 109 09/28/17 23:17 20 09/28/17 20:00 98.6 105 18 96/59 (71) 93 09/28/17 20:00 Room Air 09/28/17 19:00 112 09/28/17 18:04 94 Nasal Cannula 2.00 09/28/17 16:00 105 09/28/17 16:00 97.4 107 18 99/57 (71) 94 09/28/17 12:00 108 09/28/17 11:00 98.5 103 17 92/58 (69) 92 09/28/17 10:18 109 09/28/17 09:43 99 Nasal Cannula 2.00 09/29/17 09/29/17 09/29/17 07:00 15:00 23:00 Intake Total 1100 ml 100 ml Output Total 1700 ml Balance -600 ml 100 ml Physical Exam B LE markedly more edematous toes L foot cyanotic but more c/w venous congestion motor intact + Doppler signals Laboratory Laboratory Tests Test 09/28/17 18:00 09/29/17 04:30 Prothrombin Time 20.4 20.3 Prothromb Time International Ratio 2.0 2.0 Activated Partial Thromboplast Time 32.0 31.3 White Blood Count 14.3 Red Blood Count 3.42 Hemoglobin 8.3 Hematocrit 25.9 Mean Corpuscular Volume 75.7 Mean Corpuscular Hemoglobin 24.4 Mean Corpuscular Hemoglobin Concent 32.2 Red Cell Distribution Width 23.2 Platelet Count 188 Mean Platelet Volume 8.5 Blood Urea Nitrogen 18 Creatinine 1.37 Random Glucose 98 Calcium Level 8.2 Sodium Level 131 Potassium Level 2.5 Chloride Level 89 Carbon Dioxide Level 30.5 Anion Gap 12 Estimat Glomerular Filtration Rate 44 Magnesium Level 1.5 Date/Time Source Procedure Growth Status 09/09/17 05:50 Blood Peripheral Aerobic Blood Culture - Final NO GROWTH IN 5 DAYS Complete 09/09/17 05:50 Blood Peripheral Anaerobic Blood Culture - Final NO GROWTH IN 5 DAYS Complete 09/10/17 12:28 Stool Stool Stool Occult Blood (DONNY) - Final HEMOCCULT NEGATIVE Complete 09/08/17 21:50 Sputum Expectorated Sputum Gram Stain - Final Complete 09/08/17 21:50 Sputum Expectorated Sputum Sputum Culture - Final HEAVY GROWTH NORMAL RESPIRATORY PATRICIA Complete 08/31/17 22:30 Urine Suprapubic Urine Urine Culture - Final NO GROWTH IN 48 HOURS. Complete Assessment and Plan Plan 36/F w/ focal SFA occlusion but good distal opacification on CTA New discoloration of toes likely venous engorgement 1. Will check ABIs 2. Continue neurovascular checks 3. Continue OOB/ad debby 4. Continue anticoagulation 5. If ABIs reasonable, then ok to use light compression will follow Discharge Planning Pt on anticoagulation but anytime from vascular surgery standpoint ok to WBAT Arrange f/u in 2-3 weeks with ABIs Jerald Holloway MD Sep 29, 2017 09:20
[2017-09-29] MEDS: MORPHINE SULFATE 15 MG CONTROLLED RELEASE TAB PO SCH ×2 (09:34→20:43)
--- NOTE | 2017-09-29 12:19 | RADRPT ---
EXAM DATE/TIME: 09/29/2017 00:00 [facility] COMPARISON: No previous studies available for comparison. INDICATIONS : Severe sepsis, endocarditis, chf TECHNIQUE: Four-cuff ankle and brachial pressures were obtained. Pulse cuff waveform tracings of the ankles were recorded, and ankle-brachial indices were calculated. PRESSURES (mmHg): Brachial (arm): Right iv site Left 89 Ankle: Right 70 Left 66 PRANAV: Right 0.79 Left 0.74 TBI: No pulse at the first toes were identified on either side PULSED CUFF WAVEFORMS: Demonstrate normal amplitude bilaterally. CONCLUSION: Ankle-brachial indices are decreased and below normal. The toe brachial indices could not be obtained given the pulses could not be obtained in the first digits. Adalid Haney MD on September 29, 2017 at 12:13 Board Certified Radiologist. This report was verified electronically.
--- NOTE | 2017-09-29 14:39 | HHI.PR ---
Subjective Remarks The patient denies chest pain, shortness of breath is improving. Patient is a febrile States she is urinating well. Still slightly tachycardic Objective Vitals Vital Signs Date Time Temp Pulse Resp B/P (MAP) Pulse Ox O2 Delivery O2 Flow Rate FiO2 09/29/17 12:00 104 09/29/17 12:00 98.1 105 20 100/56 (71) 95 09/29/17 08:00 110 09/29/17 08:00 Room Air 2.00 21 09/29/17 08:00 98.7 96 20 104/55 (71) 92 09/29/17 04:57 19 09/29/17 04:13 104 09/29/17 04:00 98.1 106 19 106/56 (73) 93 09/29/17 00:00 Room Air 09/29/17 00:00 98.2 107 19 106/65 (79) 94 09/28/17 23:45 109 09/28/17 23:17 20 09/28/17 20:00 98.6 105 18 96/59 (71) 93 09/28/17 20:00 Room Air 09/28/17 19:00 112 09/28/17 18:04 94 Nasal Cannula 2.00 09/28/17 16:00 105 09/28/17 16:00 97.4 107 18 99/57 (71) 94 I/O 09/28/17 09/28/17 09/28/17 09/29/17 09/29/17 09/29/17 07:00 15:00 23:00 07:00 15:00 23:00 Intake Total 620 ml 200 ml 1220 ml 1100 ml 100 ml Output Total 1400 ml 1700 ml Balance 620 ml 200 ml -180 ml -600 ml 100 ml Intake Oral 420 ml 720 ml 1000 ml IV Total 200 ml 200 ml 500 ml 100 ml 100 ml Output Urine Total 1400 ml 1700 ml # Voids 4 # Bowel Movements 0 # Sanitary Pads 3 Pads Result Diagram: 09/29/17 0430 09/29/17 0430 Imaging Last Impressions Chest X-Ray 09/26/17 0000 Signed Impressions: Service Date/Time: Tuesday, September 26, 2017 11:32 - CONCLUSION: 1. Improving patchy right lower lung zone airspace consolidation. Luis Leija MD Catheter Placement X-Ray 09/24/17 0000 Signed Impressions: Service Date/Time: Sunday, September 24, 2017 11:16 - CONCLUSION: Uncomplicated venous catheter change as above. Luis Leija MD Head CT 09/08/17 0000 Signed Impressions: Service Date/Time: Friday, September 08, 2017 10:22 - CONCLUSION: 1. Focal area of decreased density involving the right parietal lobe. As a new finding from the prior exam. This could relate to a small infarct. MRI of the brain with gadolinium suggested to further evaluate. 2. Small lacunar infarction involving the left centrum semiovale. Ananth Ponce Jr., MD CT Angiography 09/08/17 0000 Signed Impressions: Service Date/Time: Friday, September 08, 2017 10:28 - CONCLUSION: There extensive pulmonary emboli bilaterally. There is near complete cut off of the right lower lobe pulmonary artery. Prominent filling defects on the left as well. These findings were relayed to Dr. Dominguez immediately at the completion of the study. Scattered pulmonary infiltrates, small pleural effusion and extensive mediastinal lymphadenopathy as described above. Karsten Crowder MD Brain MRI 09/08/17 0000 Signed Impressions: Service Date/Time: Friday, September 08, 2017 18:04 - CONCLUSION: Deterioration in the appearance of the scan. At least 3 focal areas of abnormal contrast enhancement are present scattered to in both hemispheres. Given the history this most likely represents developing areas cerebritis. Exam is compromised by an uncooperative patient and motion artifact. These 2 factors make detection of other abnormalities such as cortical cephalitis and meningitis difficult to exclude. Cannot exclude hemorrhagic lesions as well. There is no mass effect evident. Geremias Mauricio MD Chest CT 09/03/17 0000 Signed Impressions: Service Date/Time: Sunday, September 03, 2017 12:41 - CONCLUSION: 1. There are at least 5 pulmonary nodules present bilaterally with the largest measuring 19 mm. None demonstrate cavitation but it is possible that these represent septic emboli. Suggest followup to assess for change. 2. Splenomegaly with subtle wedge-shaped areas of low-density in the mid spleen which could represent infarcts. 3. Mild cardiomegaly in this patient post aortic valve replacement. Low density of the cardiac blood pool suggests anemia. Adalid Galo MD Aorta w/Runoff CTA 09/02/17 0000 Signed Impressions: Service Date/Time: Saturday, September 02, 2017 12:47 - CONCLUSION: Left renal cortical infarction. 5-6 cm length total occlusion of the left superficial femoral artery in the proximal thigh. Nodular parenchymal opacities in the lung bases bilaterally See above discussion. Adalid Dallas MD Renal Ultrasound 09/01/17 0000 Signed Impressions: Service Date/Time: Friday, September 01, 2017 10:53 - CONCLUSION: 1. No evidence of hydronephrosis. 2. Thickening of the urinary bladder wall a 1.1 cm. 3. Prominent splenomegaly. Baldemar Pineda MD Breast Ultrasound 09/01/17 0000 Signed Impressions: Service Date/Time: Friday, September 01, 2017 10:48 - CONCLUSION: Negative targeted right breast ultrasound examination. Adalid Haney MD Lower Extremity Ultrasound 08/31/17 0000 Signed Impressions: Service Date/Time: Thursday, August 31, 2017 21:22 - CONCLUSION: 1. No sonographic evidence for lower extremity DVT. 2. Incidental note of bilateral inguinal adenopathy with the largest on the right measuring 3.3 cm and the largest on the left measuring 2.6 cm. This finding is nonspecific but is typically reactive in etiology. Luis Leija MD Objective Remarks AAOx3 NAD Clear lungs BL S1S2 4/6 systolic ejection murmur +4 BL lower extremity edema. Erythema, increased warmth and tenderness to palpation of the left lower leg. Dark blue discoloration of toes of left leg. Pedal and tial pulses not palpable due to edema. Good capillary refill. Medications and IVs Current Medications Medications (Trade) Dose Ordered Sig/Jessica Route Start Time Stop Time Status Last Admin (NS Flush) 2 ml UNSCH PRN IV FLUSH 08/31/17 22:00 09/27/17 06:48 (NS Flush) 2 ml BID IV FLUSH 09/01/17 09:00 09/29/17 08:18 (Tylenol) 650 mg Q6H PRN PO 08/31/17 22:00 09/24/17 01:19 (Zofran Inj) 4 mg Q6H PRN IV PUSH 08/31/17 22:00 09/13/17 21:22 (Restoril) 15 mg HS PRN PO 08/31/17 22:00 09/11/17 22:08 Miscellaneous Information 1 Q361D XX 08/31/17 22:00 (Chlorhexidine 2% Cloth) Taper DAILY@04 TOP 09/01/17 04:00 08/28/18 03:59 09/11/17 03:54 (Chlorhexidine 2% Cloth) 3 pack UNSCH PRN TOP 08/31/17 22:00 (Armida-Colace) 1 tab BID PO 09/01/17 09:00 09/28/17 08:26 (Milk Of Magnesia Liq) 30 ml Q12H PRN PO 08/31/17 22:00 (Senokot) 17.2 mg Q12H PRN PO 08/31/17 22:00 (Dulcolax Supp) 10 mg DAILY PRN RECTAL 08/31/17 22:00 (Lactulose Liq) 30 ml DAILY PRN PO 08/31/17 22:00 Ampicillin Sodium 2000 mg/Sodium Chloride 100 ml @ 400 mls/hr Q6H IV 09/01/17 14:00 09/29/17 13:04 (Imodium) 2 mg Q4H PRN PO 09/03/17 16:15 09/05/17 14:32 (Albuterol Neb) 2.5 mg Q2HR NEB PRN NEB 09/04/17 11:30 09/26/17 08:42 ([place] 10-325 Mg) 1 tab Q4H PRN PO 09/09/17 15:00 09/14/17 05:02 (Dilaudid Pf Inj) 1 mg Q4H PRN IV PUSH 09/12/17 19:00 09/29/17 12:34 (KCl) 60 meq Q12HR PO 09/19/17 09:45 09/29/17 08:12 Albumin Human 100 ml @ 60 mls/hr Q12H IV 09/23/17 18:00 09/29/17 06:03 (Oramorph Sr) 15 mg Q12HR PO 09/25/17 21:00 09/29/17 09:34 (Lasix Inj) 40 mg BID@,18 IV PUSH 09/26/17 09:00 09/29/17 08:14 (Coumadin) 1 mg DAILY@16 PO 09/25/17 21:00 09/28/17 15:01 Daptomycin 500 mg/ Sodium Chloride 100 ml @ 200 mls/hr Q24H IV 09/27/17 20:00 09/28/17 20:14 (Zaroxolyn) 2.5 mg BID PO 09/27/17 22:00 09/29/17 08:12 Pharmacy Profile Note 0 ml @ 0 mls/hr UNSCH OTHER 09/28/17 16:15 Heparin Sodium/ Dextrose 250 ml @ 18 mls/hr TITRATE PRN IV 09/28/17 16:30 09/28/17 22:18 Date of Insertion: Sep 24, 2017 Line: Central Venous Catheter Side: Right Location: Internal, Jugular A/P Problem List: (1) Prosthetic valve endocarditis ICD Code: T82.6XXA - Infection and inflammatory reaction due to cardiac valve prosthesis, initial encounter Status: Acute (2) Bacteremia ICD Code: R78.81 - Bacteremia (3) Septic pulmonary embolism ICD Code: I26.90 - Septic pulmonary embolism without acute cor pulmonale Status: Acute (4) IVDU (intravenous drug user) ICD Code: F19.90 - Other psychoactive substance use, unspecified, uncomplicated (5) Anemia ICD Code: D64.9 - Anemia, unspecified Status: Chronic (6) DUONG (acute kidney injury) ICD Code: N17.9 - Acute kidney failure, unspecified Plan: Creatinine initially worsening from 1.52-1.57. Nephrology consulted. Possible ATN from vancomycin toxicity or infection. Urine eosinophils were ordered and negative. Diuretics managed by nephrology. Initially on Lasix 20 mg IV twice daily along with albumin. Creatinine Worsening on 09/24 for 1.57- 1.62. Later Lasix dose was increased to 40 mg IV twice daily and metolazone added to the regimen. Creatinine then started trending down to 1.34 on 09/28. 09/29 creatinine slightly elevated however stable at 1.37. Continue diuretics as per nephrology. Patient was placed on 1 L fluid restriction on an effort to keep the patient on an negative fluid balance. Continue to monitor BUN and creatinine, strict I's and O's, avoid nephrotoxins. (7) Cellulitis of left lower extremity ICD Code: L03.116 - Cellulitis of left lower limb Plan: The patient has erythema, increased warmth and tenderness to palpation on the left lower extremity. The patient likely is developing a left lower extremity cellulitis. 09/26 discussed the case with Dr. Sloan from infectious disease. Recommends observation for now. 09/28 Leg looks more erythematous and toes in lower extremities have a darker discoloration. Rocephin discontinued by ID and patient placed on Daptomycin. Monitor for response. Will order check of pedal pulses with arterial Doppler. Discussed with RN. 09/29 erythema seems to be improving. Continue antibiotics as per ID recommendations. The patient currently on IV daptomycin and IV ampicillin. (8) Purple toe syndrome ICD Code: I75.029 - Atheroembolism of unspecified lower extremity Plan: Patient has a blue/purple discoloration of the left toes. 09/29 INR 2.0. Dosing as per pharmacy. Continue IV heparin bridge until INR is more than 2.5. Appreciate vascular surgery recommendations. Follow-up ABIs, continue neurovascular checks. Out of bed ad debby., continue anticoagulation. Assessment and Plan (1) Prosthetic valve endocarditis Plan: Continue antibiotics as per ID. The patient was initially on IV ampicillin. On 09/24 ID started Rocephin for pulmonary coverage since chest x-ray showed a developing infiltrate. On 09/25 palliative care consulted by hematology. As per hematology documentation the patient requested to talk to palliative care to see if she is a hospice candidate. Discussed with palliative care who states that the patient's goals are aggressive and she wants to get better. The patient definitely is a hospice candidate, however her goals are not hospice appropriate. Patient was started on Oramorph SR 30 mg p.o. twice a day for pain control. 09/28 patient with what I suspected purple toe syndrome. Start the patient on a heparin drip until the patient's INR reaches 2.5. Goal INR should be 2.5-3.5 since the patient has an aortic prosthetic valve. Will reconsult vascular surgery. Pedal pulses present by Doppler -obtained by me. (2) Bacteremia Plan: Blood cultures obtained on 08/31 growing strep viridans. Subsequent repeat blood cultures negative. 09/24 sp Exchange of Right IJ central line. Continue antibiotics as per ID recommendations. (3) Septic pulmonary embolism Plan: As observed on a CT angiography of the chest obtained on 09/08/17. chocardiogram on 09/08 showed an estimated EF of 50-55%. ++severe tricuspid regurgitation with prosthesis in place. ++2 x 4 cm mobile vegetation was seen on the valve. The right atrium and right ventricle were normal in size and function Hematology following. Management of Coumadin as per hematology recommendations. Goal INR 2.5-3.5 given the presence of a prosthetic aortic valve. (4) IVDU (intravenous drug user) Plan: Counseled on drug cessation. (5) Anemia Plan: Likely secondary to inflammation/infection. No evidence of bleeding or hemolysis. Monitor hemoglobin and transfuse as needed. Discharge Planning Continue to monitor on the medical floor. Problem Qualifiers (1) Prosthetic valve endocarditis: Qualified Codes: T82.6XXA - Infection and inflammatory reaction due to cardiac valve prosthesis, initial encounter (2) Anemia: Qualified Codes: D63.8 - Anemia in other chronic diseases classified elsewhere (3) Purple toe syndrome: Qualified Codes: I75.022 - Atheroembolism of left lower extremity Jaylen Livingston MD Sep 29, 2017 14:39
[2017-09-29] MEDS: WARFARIN SOD 1 MG TAB PO SCH (16:30)
--- NOTE | 2017-09-29 16:49 | HHI.NPPN ---
Subjective History of Present Illness This is a 37-year-old female with past medical history of IV drug abuse, history of hepatitis C, narcotic dependency, came to the hospital with complaint of shortness of breath and swelling. Nephrology called to see the patient because of elevated BUN and creatinine. The patient has creatinine of 4.5 on admission which improved and it was staying in the range of 0.6-0.8 until 6 days ago, then it started going up again and now it is 1.7. The patient has increased swelling of the legs and the patient was diagnosed with endocarditis and she has blood culture positive for Strep viridans. Patient has been following with the ID and she was getting furosemide, which was stopped today this morning because of increased creatinine and she was on vancomycin and rifampicin. The last dose of vancomycin seems to be given possibly on 09/09/2017 or even later, but her level was high and the highest level we have was 25.8, which was on 09/09/2017 but on 09/15/2017 it was 23.9. The patient has been actively using IV drugs before she came to the hospital and noticed to have more swelling in her legs. She is complaining of generalized body pain. There is no nausea, vomiting. Denies any diarrhea. Her appetite is normal. Additional Remarks Reports continued mild SOB. Continue with bilateral lower extremity edema. Review of Systems General Constitutional: Fatigue Respiratory Lungs: SOB Cardiovascular Cardiac: Edema, FOREMAN Cardiac Remarks Denies CP Gastrointestinal GI Remarks denies abdominal pain Objective Data Data 09/29/17 09/30/17 18:59 06:59 Intake Total 100 ml Balance 100 ml IV Total 100 ml # Sanitary Pads 3 Pads Vital Signs Date Time Temp Pulse Resp B/P (MAP) Pulse Ox O2 Delivery O2 Flow Rate FiO2 09/29/17 16:00 97.5 99 20 96/52 (67) 94 09/29/17 12:00 104 09/29/17 12:00 98.1 105 20 100/56 (71) 95 09/29/17 08:00 110 09/29/17 08:00 Room Air 2.00 21 09/29/17 08:00 98.7 96 20 104/55 (71) 92 09/29/17 04:57 19 09/29/17 04:13 104 09/29/17 04:00 98.1 106 19 106/56 (73) 93 09/29/17 00:00 Room Air 09/29/17 00:00 98.2 107 19 106/65 (79) 94 09/28/17 23:45 109 09/28/17 23:17 20 09/28/17 20:00 98.6 105 18 96/59 (71) 93 09/28/17 20:00 Room Air 09/28/17 19:00 112 09/28/17 18:04 94 Nasal Cannula 2.00 -: 09/29/17 0430 09/29/17 0430 Physical Exam General Appearance: No Acute Distress, Anxious Eyes Eye Exam: Pupils Equal Throat Throat Exam: Oral Mucosa [place] & Moist Neck Neck Exam: Neck Supple Pulmonary Resp Exam: Clear Bilaterally Cardiology CV Exam: Regular, Normal Sinus Rhythm Gastrointestinal/Abdomen GI Exam: Soft, Non-Tender Integumentary Skin Exam: Dry, Intact Extremeties Extremities Exam: Pitting Edema Neurologic Neuro Exam: Alert, Awake, Oriented Psychiatric Psych Exam: Appropriate Responses Assessment/Plan Discussed Condition With: Patient Assessment Summary: DUONG/Acute Renal Failure Problem List: (1) Acute kidney injury ICD Codes: N17.9 - Acute kidney failure, unspecified Status: Acute Plan: DUONG likely due to vancomycin toxicity, post-infectious GN is unlikely. Possibility of ATN or pre renal. Urine eosinophils negative, complements wnl Creatinine stable Good UOP Plan Creatinine is stable at 1.37 Hypokalemia replacement given K was 2.5 Continue Lasix 40 mg IV BID and metolazone for edema. Continue to monitor BMP and UOP Encouraged to elevate legs throughout day Avoid nephrotoxins. (2) Prosthetic valve endocarditis ICD Codes: T82.6XXA - Infection and inflammatory reaction due to cardiac valve prosthesis, initial encounter Status: Acute Plan: septic endocarditis with strep viridans IV drug use, pulmonary emboli as well. Continues antibiotics per ID continue renal dosing antibiotics. (3) Peripheral arterial occlusive disease ICD Codes: I77.9 - Disorder of arteries and arterioles, unspecified Plan: seen with vascular, continue medical management Hold contrast studies as possible. (4) Hepatitis C ICD Codes: B19.20 - Unspecified viral hepatitis C without hepatic coma Status: Chronic Problem Qualifiers (1) Prosthetic valve endocarditis: Qualified Codes: T82.6XXA - Infection and inflammatory reaction due to cardiac valve prosthesis, initial encounter Amy Knight MD Sep 29, 2017 16:49
[2017-09-29] MEDS: DAPTOmycin INJ 500 MG in SODIUM CHLORIDE 0.9% INJ 100 ML IV SCH (21:17)
[2017-09-30] VITALS (13 sets, daily range): BP systolic 89–98; BP diastolic 52–65; PULSE 98–110; RESP 18–24; TEMP 97.5–99.4; O2SAT 92–96
[2017-09-30] MEDS: HYDROmorphone HCL PF 2 MG/ML VIAL IV PUSH PRN ×5 (02:22→22:16)
[2017-09-30] MEDS: AMPICILLIN INJ 2,000 MG in SODIUM CHLORIDE 0.9% INJ 100 ML IV SCH ×4 (02:24→21:01)
[2017-09-30] MEDS: CHLORHEXIDINE GLUCONATE 2 % 1 PACK (2 CLOTHS) TOP SCH (04:00)
[2017-09-30] MEDS: HEPARIN-D5W 25,000 U/250 ML 250 ML IV PRN ×2 (04:01→13:10)
[2017-09-30] MEDS: ALBUMIN 25% INJ 100 ML IV SCH ×2 (06:12→17:25)
[2017-09-30] MEDS: SODIUM CHLORIDE 0.9% FLUSH 10 ML FLUSH IV FLUSH PRN (06:32)
[2017-09-30] MEDS: DOCUSATE SODIUM 50 MG/SENNA 8.6 MG TAB PO SCH ×2 (09:00→20:27)
[2017-09-30] MEDS: SODIUM CHLORIDE 0.9% FLUSH 10 ML FLUSH IV FLUSH SCH ×2 (09:00→20:28)
[2017-09-30] MEDS: POTASSIUM CHLORIDE 10 MEQ CONTROLLED RELEASE TAB PO SCH ×2 (09:01→20:27)
[2017-09-30] MEDS: MORPHINE SULFATE 15 MG CONTROLLED RELEASE TAB PO SCH ×2 (09:01→20:27)
[2017-09-30] MEDS: FUROSEMIDE 20 MG/2 ML VIAL IV PUSH SCH ×2 (09:01→17:27)
[2017-09-30] MEDS: METOLAZONE 2.5 MG TAB PO SCH (09:02)
[2017-09-30 10:15] LABS: INTERNATIONAL NORMALIZED RATIO 1.7 RATIO; PROTHROMBIN TIME - PATIENT 17.1 SEC (9.8-11.6)
[2017-09-30] MEDS ORDERED: PILL SPLITTER OTHER PRN (11:15)
[2017-09-30 12:39] LABS: BICARBONATE 35.4 MEQ/L (21.0-32.0); CALCIUM 8.1 MG/DL (8.5-10.1); CREATININE 1.23 MG/DL (0.50-1.00)
--- NOTE | 2017-09-30 12:52 | HHI.PR ---
Subjective Remarks sob much improved states edema in lower extremities slightly improved denies cp. Objective Vitals Vital Signs Date Time Temp Pulse Resp B/P (MAP) Pulse Ox O2 Delivery O2 Flow Rate FiO2 09/30/17 12:00 97.8 100 20 90/65 (73) 93 09/30/17 08:10 96 Nasal Cannula 2.00 09/30/17 08:00 99.4 103 24 90/52 (65) 94 09/30/17 08:00 105 09/30/17 08:00 Room Air 2.00 21 09/30/17 04:00 98.3 103 20 98/56 (70) 92 09/30/17 03:40 102 09/30/17 00:01 110 09/30/17 00:00 99.0 109 20 96/52 (67) 94 09/29/17 23:55 105 09/29/17 21:56 Room Air 09/29/17 20:00 98.1 103 20 95/60 (72) 96 09/29/17 19:42 97 09/29/17 16:00 103 09/29/17 16:00 97.5 99 20 96/52 (67) 94 I/O 09/29/17 09/29/17 09/29/17 09/30/17 09/30/17 09/30/17 07:00 15:00 23:00 07:00 15:00 23:00 Intake Total 1100 ml 400 ml 1020 ml 350 ml 100 ml Output Total 1700 ml 2000 ml Balance -600 ml 400 ml -980 ml 350 ml 100 ml Intake Oral 1000 ml 720 ml IV Total 100 ml 400 ml 300 ml 350 ml 100 ml Output Urine Total 1700 ml 2000 ml # Voids 6 1 # Bowel Movements 2 # Sanitary Pads 3 Pads 3 Pads Result Diagram: 09/29/17 0430 09/30/17 1127 Imaging Last Impressions Chest X-Ray 09/26/17 0000 Signed Impressions: Service Date/Time: Tuesday, September 26, 2017 11:32 - CONCLUSION: 1. Improving patchy right lower lung zone airspace consolidation. Luis Leija MD Catheter Placement X-Ray 09/24/17 0000 Signed Impressions: Service Date/Time: Sunday, September 24, 2017 11:16 - CONCLUSION: Uncomplicated venous catheter change as above. Luis Leija MD Head CT 09/08/17 0000 Signed Impressions: Service Date/Time: Friday, September 08, 2017 10:22 - CONCLUSION: 1. Focal area of decreased density involving the right parietal lobe. As a new finding from the prior exam. This could relate to a small infarct. MRI of the brain with gadolinium suggested to further evaluate. 2. Small lacunar infarction involving the left centrum semiovale. Ananth Ponce Jr., MD CT Angiography 09/08/17 0000 Signed Impressions: Service Date/Time: Friday, September 08, 2017 10:28 - CONCLUSION: There extensive pulmonary emboli bilaterally. There is near complete cut off of the right lower lobe pulmonary artery. Prominent filling defects on the left as well. These findings were relayed to Dr. Dominguez immediately at the completion of the study. Scattered pulmonary infiltrates, small pleural effusion and extensive mediastinal lymphadenopathy as described above. Karsten Crowder MD Brain MRI 09/08/17 0000 Signed Impressions: Service Date/Time: Friday, September 08, 2017 18:04 - CONCLUSION: Deterioration in the appearance of the scan. At least 3 focal areas of abnormal contrast enhancement are present scattered to in both hemispheres. Given the history this most likely represents developing areas cerebritis. Exam is compromised by an uncooperative patient and motion artifact. These 2 factors make detection of other abnormalities such as cortical cephalitis and meningitis difficult to exclude. Cannot exclude hemorrhagic lesions as well. There is no mass effect evident. Geremias Mauricio MD Chest CT 09/03/17 0000 Signed Impressions: Service Date/Time: Sunday, September 03, 2017 12:41 - CONCLUSION: 1. There are at least 5 pulmonary nodules present bilaterally with the largest measuring 19 mm. None demonstrate cavitation but it is possible that these represent septic emboli. Suggest followup to assess for change. 2. Splenomegaly with subtle wedge-shaped areas of low-density in the mid spleen which could represent infarcts. 3. Mild cardiomegaly in this patient post aortic valve replacement. Low density of the cardiac blood pool suggests anemia. Adalid Galo MD Aorta w/Runoff CTA 09/02/17 0000 Signed Impressions: Service Date/Time: Saturday, September 02, 2017 12:47 - CONCLUSION: Left renal cortical infarction. 5-6 cm length total occlusion of the left superficial femoral artery in the proximal thigh. Nodular parenchymal opacities in the lung bases bilaterally See above discussion. Adalid Dallas MD Renal Ultrasound 09/01/17 0000 Signed Impressions: Service Date/Time: Friday, September 01, 2017 10:53 - CONCLUSION: 1. No evidence of hydronephrosis. 2. Thickening of the urinary bladder wall a 1.1 cm. 3. Prominent splenomegaly. Baldemar Pineda MD Breast Ultrasound 09/01/17 0000 Signed Impressions: Service Date/Time: Friday, September 01, 2017 10:48 - CONCLUSION: Negative targeted right breast ultrasound examination. Adalid Haney MD Lower Extremity Ultrasound 08/31/17 0000 Signed Impressions: Service Date/Time: Thursday, August 31, 2017 21:22 - CONCLUSION: 1. No sonographic evidence for lower extremity DVT. 2. Incidental note of bilateral inguinal adenopathy with the largest on the right measuring 3.3 cm and the largest on the left measuring 2.6 cm. This finding is nonspecific but is typically reactive in etiology. Luis Leija MD Objective Remarks AAOx3 NAD Clear lungs BL S1S2 4/6 systolic ejection murmur +4 BL lower extremity edema. Erythema, increased warmth and tenderness to palpation of the left lower leg. Dark blue discoloration of toes of left leg. Pedal and tial pulses not palpable due to edema. Good capillary refill. Medications and IVs Current Medications Medications (Trade) Dose Ordered Sig/Jessica Route Start Time Stop Time Status Last Admin (NS Flush) 2 ml UNSCH PRN IV FLUSH 08/31/17 22:00 09/30/17 06:32 (NS Flush) 2 ml BID IV FLUSH 09/01/17 09:00 09/30/17 09:00 (Tylenol) 650 mg Q6H PRN PO 08/31/17 22:00 09/24/17 01:19 (Zofran Inj) 4 mg Q6H PRN IV PUSH 08/31/17 22:00 09/13/17 21:22 (Restoril) 15 mg HS PRN PO 08/31/17 22:00 09/11/17 22:08 Miscellaneous Information 1 Q361D XX 08/31/17 22:00 (Chlorhexidine 2% Cloth) Taper DAILY@04 TOP 09/01/17 04:00 08/28/18 03:59 09/11/17 03:54 (Chlorhexidine 2% Cloth) 3 pack UNSCH PRN TOP 08/31/17 22:00 (Armida-Colace) 1 tab BID PO 09/01/17 09:00 09/29/17 20:50 (Milk Of Magnesia Liq) 30 ml Q12H PRN PO 08/31/17 22:00 (Senokot) 17.2 mg Q12H PRN PO 08/31/17 22:00 (Dulcolax Supp) 10 mg DAILY PRN RECTAL 08/31/17 22:00 (Lactulose Liq) 30 ml DAILY PRN PO 08/31/17 22:00 Ampicillin Sodium 2000 mg/Sodium Chloride 100 ml @ 400 mls/hr Q6H IV 09/01/17 14:00 09/30/17 13:07 (Imodium) 2 mg Q4H PRN PO 09/03/17 16:15 09/05/17 14:32 (Albuterol Neb) 2.5 mg Q2HR NEB PRN NEB 09/04/17 11:30 09/26/17 08:42 ([place] 10-325 Mg) 1 tab Q4H PRN PO 09/09/17 15:00 09/14/17 05:02 (Dilaudid Pf Inj) 1 mg Q4H PRN IV PUSH 09/12/17 19:00 09/30/17 15:38 (KCl) 60 meq Q12HR PO 09/19/17 09:45 09/30/17 09:01 Albumin Human 100 ml @ 60 mls/hr Q12H IV 09/23/17 18:00 09/30/17 17:25 (Oramorph Sr) 15 mg Q12HR PO 09/25/17 21:00 09/30/17 09:01 (Lasix Inj) 40 mg BID@,18 IV PUSH 09/26/17 09:00 09/30/17 17:27 Daptomycin 500 mg/ Sodium Chloride 100 ml @ 200 mls/hr Q24H IV 09/27/17 20:00 09/29/17 21:17 Pharmacy Profile Note 0 ml @ 0 mls/hr UNSCH OTHER 09/28/17 16:15 Heparin Sodium/ Dextrose 250 ml @ 18 mls/hr TITRATE PRN IV 09/28/17 16:30 09/30/17 13:10 (Coumadin) 1.5 mg DAILY@16 PO 09/30/17 16:00 09/30/17 15:39 (Pill Splitter) 1 ea UNSCH PRN OTHER 09/30/17 11:15 Date of Insertion: Sep 24, 2017 Line: Central Venous Catheter Side: Right Location: Internal, Jugular A/P Problem List: (1) Prosthetic valve endocarditis ICD Code: T82.6XXA - Infection and inflammatory reaction due to cardiac valve prosthesis, initial encounter Status: Acute (2) Bacteremia ICD Code: R78.81 - Bacteremia (3) Septic pulmonary embolism ICD Code: I26.90 - Septic pulmonary embolism without acute cor pulmonale Status: Acute (4) IVDU (intravenous drug user) ICD Code: F19.90 - Other psychoactive substance use, unspecified, uncomplicated (5) Anemia ICD Code: D64.9 - Anemia, unspecified Status: Chronic (6) DUONG (acute kidney injury) ICD Code: N17.9 - Acute kidney failure, unspecified Plan: Creatinine initially worsening from 1.52-1.57. Nephrology consulted. Possible ATN from vancomycin toxicity or infection. Urine eosinophils were ordered and negative. Diuretics managed by nephrology. Initially on Lasix 20 mg IV twice daily along with albumin. Creatinine Worsening on 09/24 for 1.57- 1.62. Later Lasix dose was increased to 40 mg IV twice daily and metolazone added to the regimen. Creatinine then started trending down to 1.34 on 09/28. 09/29 creatinine slightly elevated however stable at 1.37. Continue diuretics as per nephrology. Patient was placed on 1 L fluid restriction on an effort to keep the patient on an negative fluid balance. Continue to monitor BUN and creatinine, strict I's and O's, avoid nephrotoxins. 09/30 Creatinine continues to trend down. management as per nephrology (7) Cellulitis of left lower extremity ICD Code: L03.116 - Cellulitis of left lower limb (8) Purple toe syndrome ICD Code: I75.029 - Atheroembolism of unspecified lower extremity Plan: Patient has a blue/purple discoloration of the left toes. 09/29 INR 2.0. Dosing as per pharmacy. Continue IV heparin bridge until INR is more than 2.5. Appreciate vascular surgery recommendations. Follow-up ABIs, continue neurovascular checks. Out of bed ad debby., continue anticoagulation. 09/30 Ankle-brachial indices are decreased and below normal. The toe brachial indices could not be obtained given the pulses could not be obtained in the first digits. Continue heparin bridge to Caumadin. Goal inr 2.5 to 3.5. Management as per vascular surgery. Assessment and Plan (1) Prosthetic valve endocarditis Plan: Continue antibiotics as per ID. The patient was initially on IV ampicillin. On 09/24 ID started Rocephin for pulmonary coverage since chest x-ray showed a developing infiltrate. On 09/25 palliative care consulted by hematology. As per hematology documentation the patient requested to talk to palliative care to see if she is a hospice candidate. Discussed with palliative care who states that the patient's goals are aggressive and she wants to get better. The patient definitely is a hospice candidate, however her goals are not hospice appropriate. Patient was started on Oramorph SR 30 mg p.o. twice a day for pain control. 09/28 patient with what I suspected purple toe syndrome. Start the patient on a heparin drip until the patient's INR reaches 2.5. Goal INR should be 2.5-3.5 since the patient has an aortic prosthetic valve. Will reconsult vascular surgery. Pedal pulses present by Doppler -obtained by me. (2) Bacteremia Plan: Blood cultures obtained on 08/31 growing strep viridans. Subsequent repeat blood cultures negative. 09/24 sp Exchange of Right IJ central line. Continue antibiotics as per ID recommendations. (3) Septic pulmonary embolism Plan: As observed on a CT angiography of the chest obtained on 09/08/17. chocardiogram on 09/08 showed an estimated EF of 50-55%. ++severe tricuspid regurgitation with prosthesis in place. ++2 x 4 cm mobile vegetation was seen on the valve. The right atrium and right ventricle were normal in size and function Hematology following. Management of Coumadin as per hematology recommendations. Goal INR 2.5-3.5 given the presence of a prosthetic aortic valve. (4) IVDU (intravenous drug user) Plan: Counseled on drug cessation. (5) Anemia Plan: Likely secondary to inflammation/infection. No evidence of bleeding or hemolysis. Monitor hemoglobin and transfuse as needed. Discharge Planning Continue to monitor on the medical floor. Problem Qualifiers (1) Prosthetic valve endocarditis: Qualified Codes: T82.6XXA - Infection and inflammatory reaction due to cardiac valve prosthesis, initial encounter (2) Anemia: Qualified Codes: D63.8 - Anemia in other chronic diseases classified elsewhere (3) Purple toe syndrome: Qualified Codes: I75.022 - Atheroembolism of left lower extremity Jaylen Livingston MD Sep 30, 2017 12:52
[2017-09-30 13:05] LABS: HEMATOCRIT 25.3 % (35.0-46.0); MEAN CELL VOLUME 75.2 FL (80.0-100.0); MEAN CORPUSCULAR HEMOGLOBIN 23.8 PG (27.0-34.0); MEAN CORPUSCULAR HGB CONC 31.7 % (32.0-36.0); MEAN PLATELET VOLUME 8.8 FL (7.0-11.0); PLATELET COUNT 175 TH/MM3 (150-450); RED BLOOD COUNT 3.37 MIL/MM3 (4.00-5.30); WHITE BLOOD COUNT 12.2 TH/MM3 (4.0-11.0)
[2017-09-30] MEDS ORDERED: POTASSIUM CHLORIDE 10 MEQ CONTROLLED RELEASE TAB PO ONE (13:45)
[2017-09-30] MEDS: POTASSIUM CHLOR 20 MEQ PREMIX 100 ML IV SCH ×2 (14:06→15:39)
--- NOTE | 2017-09-30 14:27 | HHI.NPPN ---
Subjective History of Present Illness This is a 37-year-old female with past medical history of IV drug abuse, history of hepatitis C, narcotic dependency, came to the hospital with complaint of shortness of breath and swelling. Nephrology called to see the patient because of elevated BUN and creatinine. The patient has creatinine of 4.5 on admission which improved and it was staying in the range of 0.6-0.8 until 6 days ago, then it started going up again and now it is 1.7. The patient has increased swelling of the legs and the patient was diagnosed with endocarditis and she has blood culture positive for Strep viridans. Patient has been following with the ID and she was getting furosemide, which was stopped today this morning because of increased creatinine and she was on vancomycin and rifampicin. The last dose of vancomycin seems to be given possibly on 09/09/2017 or even later, but her level was high and the highest level we have was 25.8, which was on 09/09/2017 but on 09/15/2017 it was 23.9. The patient has been actively using IV drugs before she came to the hospital and noticed to have more swelling in her legs. She is complaining of generalized body pain. There is no nausea, vomiting. Denies any diarrhea. Her appetite is normal. Additional Remarks Continue with bilateral lower extremity edema. Review of Systems General Constitutional: Fatigue Respiratory Lungs: SOB Cardiovascular Cardiac: Edema, FOREMAN Cardiac Remarks Denies CP Gastrointestinal GI Remarks denies abdominal pain Objective Data Data 09/30/17 10/01/17 19:00 07:00 Intake Total 100 ml Balance 100 ml IV Total 100 ml # Sanitary Pads 3 Pads Vital Signs Date Time Temp Pulse Resp B/P (MAP) Pulse Ox O2 Delivery O2 Flow Rate FiO2 09/30/17 12:00 97.8 100 20 90/65 (73) 93 09/30/17 12:00 101 09/30/17 08:10 96 Nasal Cannula 2.00 09/30/17 08:00 99.4 103 24 90/52 (65) 94 09/30/17 08:00 105 09/30/17 08:00 Room Air 2.00 21 09/30/17 04:00 98.3 103 20 98/56 (70) 92 09/30/17 03:40 102 09/30/17 00:01 110 09/30/17 00:00 99.0 109 20 96/52 (67) 94 09/29/17 23:55 105 09/29/17 21:56 Room Air 09/29/17 20:00 98.1 103 20 95/60 (72) 96 09/29/17 19:42 97 09/29/17 16:00 103 09/29/17 16:00 97.5 99 20 96/52 (67) 94 -: 09/30/17 1235 09/30/17 1127 Physical Exam General Appearance: No Acute Distress, Anxious Eyes Eye Exam: Pupils Equal Throat Throat Exam: Oral Mucosa [place] & Moist Neck Neck Exam: Neck Supple Pulmonary Resp Exam: Clear Bilaterally Cardiology CV Exam: Regular, Normal Sinus Rhythm Gastrointestinal/Abdomen GI Exam: Soft, Non-Tender Integumentary Skin Exam: Dry, Intact Extremeties Extremities Exam: Pitting Edema Neurologic Neuro Exam: Alert, Awake, Oriented Psychiatric Psych Exam: Appropriate Responses Assessment/Plan Discussed Condition With: Patient Assessment Summary: DUONG/Acute Renal Failure Problem List: (1) Acute kidney injury ICD Codes: N17.9 - Acute kidney failure, unspecified Status: Acute Plan: DUONG likely due to vancomycin toxicity, post-infectious GN is unlikely. Possibility of ATN or pre renal. Urine eosinophils negative, complements wnl Creatinine stable Good UOP Plan Creatinine is stable at 1.2 Hypokalemia replacement given K was 2.5 given extra potassium on 60 mEq twice Continue Lasix 40 mg IV BID and metolazone for edema. Continue to monitor BMP and UOP Encouraged to elevate legs throughout day Avoid nephrotoxins. Stop metolazone as developing metabolic alkalosis Dr. Salinas to follow (2) Prosthetic valve endocarditis ICD Codes: T82.6XXA - Infection and inflammatory reaction due to cardiac valve prosthesis, initial encounter Status: Acute Plan: septic endocarditis with strep viridans IV drug use, pulmonary emboli as well. Continues antibiotics per ID continue renal dosing antibiotics. (3) Peripheral arterial occlusive disease ICD Codes: I77.9 - Disorder of arteries and arterioles, unspecified Plan: seen with vascular, continue medical management Hold contrast studies as possible. (4) Hepatitis C ICD Codes: B19.20 - Unspecified viral hepatitis C without hepatic coma Status: Chronic Problem Qualifiers (1) Prosthetic valve endocarditis: Qualified Codes: T82.6XXA - Infection and inflammatory reaction due to cardiac valve prosthesis, initial encounter Amy Knight MD Sep 30, 2017 14:27
[2017-09-30] MEDS: WARFARIN SOD 1 MG TAB PO SCH (15:39)
[2017-09-30] MEDS: DAPTOmycin INJ 500 MG in SODIUM CHLORIDE 0.9% INJ 100 ML IV SCH (20:26)
[2017-10-01] MEDS: AMPICILLIN INJ 2,000 MG in SODIUM CHLORIDE 0.9% INJ 100 ML IV SCH ×4 (02:21→21:11)
[2017-10-01] MEDS: HYDROmorphone HCL PF 2 MG/ML VIAL IV PUSH PRN ×6 (02:21→23:24)
[2017-10-01 03:41] VITALS: BP 107/63; PULSE 100; PULSE 102; RESP 20; TEMP 98.6; O2SAT 97
[2017-10-01 03:47] LABS: HEMOGLOBIN 7.7 GM/DL (11.6-15.3); MEAN CELL VOLUME 75.3 FL (80.0-100.0); MEAN CORPUSCULAR HEMOGLOBIN 24.1 PG (27.0-34.0); MEAN PLATELET VOLUME 8.3 FL (7.0-11.0); PLATELET COUNT 148 TH/MM3 (150-450); RED BLOOD COUNT 3.18 MIL/MM3 (4.00-5.30); WHITE BLOOD COUNT 11.7 TH/MM3 (4.0-11.0)
[2017-10-01] MEDS: HEPARIN-D5W 25,000 U/250 ML 250 ML IV PRN ×2 (03:55→16:13)
[2017-10-01] MEDS: CHLORHEXIDINE GLUCONATE 2 % 1 PACK (2 CLOTHS) TOP SCH (04:00)
[2017-10-01 04:06] LABS: INTERNATIONAL NORMALIZED RATIO 1.8 RATIO; PROTHROMBIN TIME - PATIENT 18.1 SEC (9.8-11.6)
[2017-10-01 04:36] LABS: CALCIUM 8.3 MG/DL (8.5-10.1); CREATININE 1.12 MG/DL (0.50-1.00); MAGNESIUM 1.4 MG/DL (1.5-2.5); PHOSPHORUS 3.2 MG/DL (2.5-4.9)
[2017-10-01] MEDS ORDERED: POTASSIUM CHLORIDE 20 MEQ CONTROLLED RELEASE TAB PO ONE (05:00)
[2017-10-01] MEDS ORDERED: MAGNESIUM SULFATE 1 GM PREMIX 100 ML IV ONE (05:00)
[2017-10-01] MEDS: ALBUMIN 25% INJ 100 ML IV SCH ×2 (05:11→17:50)
[2017-10-01] MEDS: POTASSIUM CHLOR 20 MEQ PREMIX 100 ML IV SCH ×2 (06:16→09:46)
[2017-10-01 08:00] VITALS: BP 96/59; PULSE 108; RESP 20; TEMP 98; O2SAT 93
[2017-10-01] MEDS: DOCUSATE SODIUM 50 MG/SENNA 8.6 MG TAB PO SCH ×2 (09:00→21:00)
[2017-10-01] MEDS: SODIUM CHLORIDE 0.9% FLUSH 10 ML FLUSH IV FLUSH SCH ×2 (09:00→21:00)
[2017-10-01] MEDS: FUROSEMIDE 20 MG/2 ML VIAL IV PUSH SCH ×2 (09:00→17:50)
[2017-10-01] MEDS: POTASSIUM CHLORIDE 10 MEQ CONTROLLED RELEASE TAB PO SCH ×2 (09:45→21:09)
[2017-10-01] MEDS: MORPHINE SULFATE 15 MG CONTROLLED RELEASE TAB PO SCH (09:46)
[2017-10-01] MEDS ORDERED: POTASSIUM CHLORIDE 10 MEQ CONTROLLED RELEASE TAB PO ONE (11:00)
[2017-10-01 12:00] VITALS: BP 96/66; PULSE 104; PULSE 109; RESP 20; TEMP 97.9; O2SAT 93; O2SAT 99
--- NOTE | 2017-10-01 13:35 | HHI.PR ---
Subjective Remarks The patient complains of right lower side chest pain/abdominal pain which is nonradiating and worsened by taking deep breaths. Patient is a febrile and still tachycardic. Potassium noted to be very low at 2.8. Creatinine is trending down Patient states she has some shortness of breath. Objective Vitals Vital Signs Date Time Temp Pulse Resp B/P (MAP) Pulse Ox O2 Delivery O2 Flow Rate FiO2 10/01/17 08:00 98.0 108 20 96/59 (71) 93 10/01/17 08:00 Room Air 10/01/17 03:41 100 10/01/17 03:41 98.6 102 20 107/63 (78) 97 09/30/17 23:49 Room Air 09/30/17 23:48 98.7 102 18 94/57 (69) 93 09/30/17 23:41 99 09/30/17 20:59 98.4 100 20 97/62 (74) 95 09/30/17 20:58 95 Room Air 09/30/17 20:00 Room Air 09/30/17 19:43 98 09/30/17 19:00 101 09/30/17 16:00 97.5 101 20 89/65 (73) 95 I/O 09/30/17 09/30/17 09/30/17 10/01/17 10/01/17 10/01/17 07:00 15:00 23:00 07:00 15:00 23:00 Intake Total 350 ml 400 ml 880 ml 550 ml Balance 350 ml 400 ml 880 ml 550 ml Intake Oral 480 ml IV Total 350 ml 400 ml 400 ml 550 ml # Voids 1 6 # Bowel Movements 2 # Sanitary Pads 3 Pads Result Diagram: 10/01/17 0330 10/01/17 0330 Imaging Last Impressions Chest X-Ray 09/26/17 0000 Signed Impressions: Service Date/Time: Tuesday, September 26, 2017 11:32 - CONCLUSION: 1. Improving patchy right lower lung zone airspace consolidation. Luis Leija MD Catheter Placement X-Ray 09/24/17 0000 Signed Impressions: Service Date/Time: Sunday, September 24, 2017 11:16 - CONCLUSION: Uncomplicated venous catheter change as above. Luis Leija MD Head CT 09/08/17 0000 Signed Impressions: Service Date/Time: Friday, September 08, 2017 10:22 - CONCLUSION: 1. Focal area of decreased density involving the right parietal lobe. As a new finding from the prior exam. This could relate to a small infarct. MRI of the brain with gadolinium suggested to further evaluate. 2. Small lacunar infarction involving the left centrum semiovale. Ananth Ponce Jr., MD CT Angiography 09/08/17 0000 Signed Impressions: Service Date/Time: Friday, September 08, 2017 10:28 - CONCLUSION: There extensive pulmonary emboli bilaterally. There is near complete cut off of the right lower lobe pulmonary artery. Prominent filling defects on the left as well. These findings were relayed to Dr. Dominguez immediately at the completion of the study. Scattered pulmonary infiltrates, small pleural effusion and extensive mediastinal lymphadenopathy as described above. Karsten Crowder MD Brain MRI 09/08/17 0000 Signed Impressions: Service Date/Time: Friday, September 08, 2017 18:04 - CONCLUSION: Deterioration in the appearance of the scan. At least 3 focal areas of abnormal contrast enhancement are present scattered to in both hemispheres. Given the history this most likely represents developing areas cerebritis. Exam is compromised by an uncooperative patient and motion artifact. These 2 factors make detection of other abnormalities such as cortical cephalitis and meningitis difficult to exclude. Cannot exclude hemorrhagic lesions as well. There is no mass effect evident. Geremias Mauricio MD Chest CT 09/03/17 0000 Signed Impressions: Service Date/Time: Sunday, September 03, 2017 12:41 - CONCLUSION: 1. There are at least 5 pulmonary nodules present bilaterally with the largest measuring 19 mm. None demonstrate cavitation but it is possible that these represent septic emboli. Suggest followup to assess for change. 2. Splenomegaly with subtle wedge-shaped areas of low-density in the mid spleen which could represent infarcts. 3. Mild cardiomegaly in this patient post aortic valve replacement. Low density of the cardiac blood pool suggests anemia. Adalid Galo MD Aorta w/Runoff CTA 09/02/17 0000 Signed Impressions: Service Date/Time: Saturday, September 02, 2017 12:47 - CONCLUSION: Left renal cortical infarction. 5-6 cm length total occlusion of the left superficial femoral artery in the proximal thigh. Nodular parenchymal opacities in the lung bases bilaterally See above discussion. Adalid Dlalas MD Renal Ultrasound 09/01/17 0000 Signed Impressions: Service Date/Time: Friday, September 01, 2017 10:53 - CONCLUSION: 1. No evidence of hydronephrosis. 2. Thickening of the urinary bladder wall a 1.1 cm. 3. Prominent splenomegaly. Baldemar Pineda MD Breast Ultrasound 09/01/17 0000 Signed Impressions: Service Date/Time: Friday, September 01, 2017 10:48 - CONCLUSION: Negative targeted right breast ultrasound examination. Adalid Haney MD Lower Extremity Ultrasound 08/31/17 0000 Signed Impressions: Service Date/Time: Thursday, August 31, 2017 21:22 - CONCLUSION: 1. No sonographic evidence for lower extremity DVT. 2. Incidental note of bilateral inguinal adenopathy with the largest on the right measuring 3.3 cm and the largest on the left measuring 2.6 cm. This finding is nonspecific but is typically reactive in etiology. Luis Leija MD Objective Remarks AAOx3 NAD Clear lungs BL S1S2 4/6 systolic ejection murmur +3 BL lower extremity edema. Erythema, increased warmth and tenderness to palpation of the left lower leg. Dark blue discoloration of toes of left leg. Pedal and tial pulses not palpable due to edema. Good capillary refill. Medications and IVs Current Medications Medications (Trade) Dose Ordered Sig/Jessica Route Start Time Stop Time Status Last Admin (NS Flush) 2 ml UNSCH PRN IV FLUSH 08/31/17 22:00 09/30/17 06:32 (NS Flush) 2 ml BID IV FLUSH 09/01/17 09:00 09/30/17 20:28 (Tylenol) 650 mg Q6H PRN PO 08/31/17 22:00 09/24/17 01:19 (Zofran Inj) 4 mg Q6H PRN IV PUSH 08/31/17 22:00 09/13/17 21:22 (Restoril) 15 mg HS PRN PO 08/31/17 22:00 09/11/17 22:08 Miscellaneous Information 1 Q361D XX 08/31/17 22:00 (Chlorhexidine 2% Cloth) Taper DAILY@04 TOP 09/01/17 04:00 08/28/18 03:59 09/11/17 03:54 (Chlorhexidine 2% Cloth) 3 pack UNSCH PRN TOP 08/31/17 22:00 (Armida-Colace) 1 tab BID PO 09/01/17 09:00 09/29/17 20:50 (Milk Of Magnesia Liq) 30 ml Q12H PRN PO 08/31/17 22:00 (Senokot) 17.2 mg Q12H PRN PO 08/31/17 22:00 (Dulcolax Supp) 10 mg DAILY PRN RECTAL 08/31/17 22:00 (Lactulose Liq) 30 ml DAILY PRN PO 08/31/17 22:00 Ampicillin Sodium 2000 mg/Sodium Chloride 100 ml @ 400 mls/hr Q6H IV 09/01/17 14:00 10/01/17 13:04 (Imodium) 2 mg Q4H PRN PO 09/03/17 16:15 09/05/17 14:32 (Albuterol Neb) 2.5 mg Q2HR NEB PRN NEB 09/04/17 11:30 09/26/17 08:42 ([place] 10-325 Mg) 1 tab Q4H PRN PO 09/09/17 15:00 09/14/17 05:02 (Dilaudid Pf Inj) 1 mg Q4H PRN IV PUSH 09/12/17 19:00 10/01/17 10:22 (KCl) 60 meq Q12HR PO 09/19/17 09:45 10/01/17 09:45 Albumin Human 100 ml @ 60 mls/hr Q12H IV 09/23/17 18:00 10/01/17 05:11 (Oramorph Sr) 15 mg Q12HR PO 09/25/17 21:00 10/01/17 09:46 (Lasix Inj) 40 mg BID@,18 IV PUSH 09/26/17 09:00 09/30/17 17:27 Daptomycin 500 mg/ Sodium Chloride 100 ml @ 200 mls/hr Q24H IV 09/27/17 20:00 09/30/17 20:26 Pharmacy Profile Note 0 ml @ 0 mls/hr UNSCH OTHER 09/28/17 16:15 Heparin Sodium/ Dextrose 250 ml @ 18 mls/hr TITRATE PRN IV 09/28/17 16:30 10/01/17 03:55 (Coumadin) 1.5 mg DAILY@16 PO 09/30/17 16:00 09/30/17 15:39 (Pill Splitter) 1 ea UNSCH PRN OTHER 09/30/17 11:15 Urinary Catheter: No Vascular Central Line Catheter: Yes Assessment to: Continue Date of Insertion: Sep 24, 2017 Line: Central Venous Catheter Side: Right Location: Internal, Jugular A/P Problem List: (1) Prosthetic valve endocarditis ICD Code: T82.6XXA - Infection and inflammatory reaction due to cardiac valve prosthesis, initial encounter Status: Acute (2) Bacteremia ICD Code: R78.81 - Bacteremia (3) Septic pulmonary embolism ICD Code: I26.90 - Septic pulmonary embolism without acute cor pulmonale Status: Acute (4) IVDU (intravenous drug user) ICD Code: F19.90 - Other psychoactive substance use, unspecified, uncomplicated (5) Anemia ICD Code: D64.9 - Anemia, unspecified Status: Chronic (6) DUONG (acute kidney injury) ICD Code: N17.9 - Acute kidney failure, unspecified Plan: Creatinine initially worsening from 1.52-1.57. Nephrology consulted. Possible ATN from vancomycin toxicity or infection. Urine eosinophils were ordered and negative. Diuretics managed by nephrology. Initially on Lasix 20 mg IV twice daily along with albumin. Creatinine Worsening on 09/24 for 1.57- 1.62. Later Lasix dose was increased to 40 mg IV twice daily and metolazone added to the regimen. Creatinine then started trending down to 1.34 on 09/28. 09/29 creatinine slightly elevated however stable at 1.37. Continue diuretics as per nephrology. Patient was placed on 1 L fluid restriction on an effort to keep the patient on an negative fluid balance. Continue to monitor BUN and creatinine, strict I's and O's, avoid nephrotoxins. 10/01 Creatinine continues to trend down. management as per nephrology. INR 1.12 (7) Cellulitis of left lower extremity ICD Code: L03.116 - Cellulitis of left lower limb Plan: Continue IV antibiotics as per ID. Cellulitis seems to be improving. (8) Purple toe syndrome ICD Code: I75.029 - Atheroembolism of unspecified lower extremity Plan: Patient has a blue/purple discoloration of the left toes. 09/29 INR 2.0. Dosing as per pharmacy. Continue IV heparin bridge until INR is more than 2.5. Appreciate vascular surgery recommendations. Follow-up ABIs, continue neurovascular checks. Out of bed ad debby., continue anticoagulation. 09/30 Ankle-brachial indices are decreased and below normal. The toe brachial indices could not be obtained given the pulses could not be obtained in the first digits. Continue heparin bridge to Caumadin. Goal inr 2.5 to 3.5. Management as per vascular surgery. (9) Pleuritic chest pain ICD Code: R07.81 - Pleurodynia Plan: Obtain a chest x-ray. Patient currently on morphine sulfate 15 mg p.o. every 12 hours. I will increase to 30 minutes p.o. every 12 hours. Continue [place] as needed as well as Dilaudid. Assessment and Plan (1) Prosthetic valve endocarditis Plan: Continue antibiotics as per ID. The patient was initially on IV ampicillin. On 09/24 ID started Rocephin for pulmonary coverage since chest x-ray showed a developing infiltrate. On 09/25 palliative care consulted by hematology. As per hematology documentation the patient requested to talk to palliative care to see if she is a hospice candidate. Discussed with palliative care who states that the patient's goals are aggressive and she wants to get better. The patient definitely is a hospice candidate, however her goals are not hospice appropriate. Patient was started on Oramorph SR 30 mg p.o. twice a day for pain control. 09/28 patient with what I suspected purple toe syndrome. Start the patient on a heparin drip until the patient's INR reaches 2.5. Goal INR should be 2.5-3.5 since the patient has an aortic prosthetic valve. Will reconsult vascular surgery. Pedal pulses present by Doppler -obtained by me. (2) Bacteremia Plan: Blood cultures obtained on 08/31 growing strep viridans. Subsequent repeat blood cultures negative. 09/24 sp Exchange of Right IJ central line. Continue antibiotics as per ID recommendations. (3) Septic pulmonary embolism Plan: As observed on a CT angiography of the chest obtained on 09/08/17. chocardiogram on 09/08 showed an estimated EF of 50-55%. ++severe tricuspid regurgitation with prosthesis in place. ++2 x 4 cm mobile vegetation was seen on the valve. The right atrium and right ventricle were normal in size and function Hematology following. Management of Coumadin as per hematology recommendations. Goal INR 2.5-3.5 given the presence of a prosthetic aortic valve. (4) IVDU (intravenous drug user) Plan: Counseled on drug cessation. (5) Anemia Plan: Likely secondary to inflammation/infection. No evidence of bleeding or hemolysis. Monitor hemoglobin and transfuse as needed. Discharge Planning Continue to monitor on the medical floor. Problem Qualifiers (1) Prosthetic valve endocarditis: Qualified Codes: T82.6XXA - Infection and inflammatory reaction due to cardiac valve prosthesis, initial encounter (2) Anemia: Qualified Codes: D63.8 - Anemia in other chronic diseases classified elsewhere (3) Purple toe syndrome: Qualified Codes: I75.022 - Atheroembolism of left lower extremity Jaylen Livingston MD Oct 01, 2017 13:35
[2017-10-01] MEDS ORDERED: MORPHINE SULFATE 15 MG CONTROLLED RELEASE TAB PO ONE (13:45)
--- NOTE | 2017-10-01 14:21 | RADRPT ---
EXAM DATE/TIME: 10/01/2017 13:53 [facility] COMPARISON: CHEST SINGLE AP, September 26, 2017, 11:32. INDICATIONS : Chest pain. Followup right lower lobe consolidation. MEDICAL HISTORY : Hepatitis C. Cardiovascular disease. Congestive heart failure. SURGICAL HISTORY : AVR. ENCOUNTER: Initial ACUITY: 1 day PAIN SCORE: 5/10 LOCATION: Bilateral chest FINDINGS: A single AP erect portable view of the chest was obtained and demonstrates the patient is status post median sternotomy. The right internal jugular central venous line remains in place. There is an johnson ficial heart valve again noted. The heart size appears mildly enlarged with no perihilar edema. There is abnormal patchy opacity in the right lung base which does not appear significantly changed. The b alhaji thorax remains intact. CONCLUSION: No significant change in the right lower lobe infiltrate. Reuben Reece MD on October 01, 2017 at 14:17 Board Certified Radiologist. This report was verified electronically.
--- NOTE | 2017-10-01 15:10 | HHI.NPPN ---
Subjective History of Present Illness This is a 37-year-old female with past medical history of IV drug abuse, history of hepatitis C, narcotic dependency, came to the hospital with complaint of shortness of breath and swelling. Nephrology called to see the patient because of elevated BUN and creatinine. The patient has creatinine of 4.5 on admission which improved and it was staying in the range of 0.6-0.8 until 6 days ago, then it started going up again and now it is 1.7. The patient has increased swelling of the legs and the patient was diagnosed with endocarditis and she has blood culture positive for Strep viridans. Patient has been following with the ID and she was getting furosemide, which was stopped today this morning because of increased creatinine and she was on vancomycin and rifampicin. The last dose of vancomycin seems to be given possibly on 09/09/2017 or even later, but her level was high and the highest level we have was 25.8, which was on 09/09/2017 but on 09/15/2017 it was 23.9. The patient has been actively using IV drugs before she came to the hospital and noticed to have more swelling in her legs. She is complaining of generalized body pain. There is no nausea, vomiting. Denies any diarrhea. Her appetite is normal. Additional Remarks Continue with bilateral lower extremity edema however slightly improved. (Deena hO) Review of Systems General Constitutional: Fatigue (Deena Oh) Respiratory Lungs: SOB Respiratory Remarks improving (Deena Oh) Cardiovascular Cardiac: Edema, FOREMAN Cardiac Remarks Denies CP (Deena Oh) Gastrointestinal GI Remarks denies abdominal pain (Deena Oh) Objective Data Data Vital Signs Date Time Temp Pulse Resp B/P (MAP) Pulse Ox O2 Delivery O2 Flow Rate FiO2 10/01/17 12:00 Room Air 10/01/17 12:00 93 Nasal Cannula 2.00 10/01/17 12:00 97.9 104 20 96/66 (76) 99 10/01/17 08:00 98.0 108 20 96/59 (71) 93 10/01/17 08:00 Room Air 10/01/17 03:41 100 10/01/17 03:41 98.6 102 20 107/63 (78) 97 09/30/17 23:49 Room Air 09/30/17 23:48 98.7 102 18 94/57 (69) 93 09/30/17 23:41 99 09/30/17 20:59 98.4 100 20 97/62 (74) 95 09/30/17 20:58 95 Room Air 09/30/17 20:00 Room Air 09/30/17 19:43 98 09/30/17 19:00 101 09/30/17 16:00 97.5 101 20 89/65 (73) 95 (Deena Oh) -: 10/01/17 0330 10/01/17 0330 Physical Exam General Appearance: No Acute Distress, Anxious (Deena Oh) Eyes Eye Exam: Pupils Equal (Deena Oh) Throat Throat Exam: Oral Mucosa [place] & Moist (Deena Oh) Neck Neck Exam: Neck Supple (Deena Oh) Pulmonary Resp Exam: Clear Bilaterally (Deena Oh) Cardiology CV Exam: Regular, Normal Sinus Rhythm (Deena Oh) Gastrointestinal/Abdomen GI Exam: Soft, Non-Tender (Deena Oh) Integumentary Skin Exam: Dry, Intact (Deena Oh) Extremeties Extremities Exam: Pitting Edema (Deena Oh) Neurologic Neuro Exam: Alert, Awake, Oriented (Deena Oh) Psychiatric Psych Exam: Appropriate Responses (Deena Oh) Assessment/Plan Discussed Condition With: Patient Assessment Summary: DUONG/Acute Renal Failure Problem List: (1) Acute kidney injury ICD Codes: N17.9 - Acute kidney failure, unspecified Status: Acute Plan: DUONG likely due to vancomycin toxicity, post-infectious GN is unlikely. Possibility of ATN or pre renal. Urine eosinophils negative, complements wnl Creatinine stable Good UOP Plan Creatinine is stable Hypokalemia replacement given Continue Lasix 40 mg IV BID Continue to monitor BMP and UOP Encouraged to elevate legs throughout day Avoid nephrotoxins when possible (2) Prosthetic valve endocarditis ICD Codes: T82.6XXA - Infection and inflammatory reaction due to cardiac valve prosthesis, initial encounter Status: Acute Plan: septic endocarditis with strep viridans IV drug use, pulmonary emboli as well. Continues antibiotics per ID continue renal dosing antibiotics. (3) Peripheral arterial occlusive disease ICD Codes: I77.9 - Disorder of arteries and arterioles, unspecified Plan: seen with vascular, continue medical management Hold contrast studies as possible. (4) Hepatitis C ICD Codes: B19.20 - Unspecified viral hepatitis C without hepatic coma Status: Chronic (Deena Oh) Problem List: (1) Acute kidney injury ICD Codes: N17.9 - Acute kidney failure, unspecified Status: Acute Plan: DUONG likely due to vancomycin toxicity, post-infectious GN is unlikely. Possibility of ATN or pre renal. Urine eosinophils negative, complements wnl Creatinine stable Good UOP Plan Creatinine is stable Hypokalemia replacement given Continue Lasix 40 mg IV BID Continue to monitor BMP and UOP Encouraged to elevate legs throughout day Avoid nephrotoxins when possible. Patient seen and examine, agree with above. Continue diuretics and follow the BMP. (2) Prosthetic valve endocarditis ICD Codes: T82.6XXA - Infection and inflammatory reaction due to cardiac valve prosthesis, initial encounter Status: Acute Plan: septic endocarditis with strep viridans IV drug use, pulmonary emboli as well. Continues antibiotics per ID continue renal dosing antibiotics. (3) Peripheral arterial occlusive disease ICD Codes: I77.9 - Disorder of arteries and arterioles, unspecified Plan: seen with vascular, continue medical management Hold contrast studies as possible. (4) Hepatitis C ICD Codes: B19.20 - Unspecified viral hepatitis C without hepatic coma Status: Chronic (Randal Salinas MD) Problem Qualifiers (1) Prosthetic valve endocarditis: Qualified Codes: T82.6XXA - Infection and inflammatory reaction due to cardiac valve prosthesis, initial encounter Deena Oh Oct 01, 2017 15:10 Randal Salinas MD Oct 02, 2017 21:55
[2017-10-01 16:00] VITALS: BP 102/66; PULSE 104; RESP 20; TEMP 97.4; O2SAT 94
[2017-10-01] MEDS: WARFARIN SOD 1 MG TAB PO SCH (17:50)
[2017-10-01 20:00] VITALS: BP 96/54; PULSE 99; RESP 19; TEMP 99.6; O2SAT 95
[2017-10-01 20:14] VITALS: PULSE 100
[2017-10-01] MEDS: MORPHINE SULFATE 30 MG CONTROLLED RELEASE TAB PO SCH (21:10)
[2017-10-01] MEDS: DAPTOmycin INJ 500 MG in SODIUM CHLORIDE 0.9% INJ 100 ML IV SCH (21:11)
[2017-10-02] VITALS (11 sets, daily range): BP systolic 89–111; BP diastolic 56–75; PULSE 96–109; RESP 19–20; TEMP 97.4–99.1; O2SAT 94–97
[2017-10-02] MEDS: AMPICILLIN INJ 2,000 MG in SODIUM CHLORIDE 0.9% INJ 100 ML IV SCH ×4 (01:41→21:06)
[2017-10-02] MEDS: CHLORHEXIDINE GLUCONATE 2 % 1 PACK (2 CLOTHS) TOP SCH (03:06)
[2017-10-02] MEDS: HYDROmorphone HCL PF 2 MG/ML VIAL IV PUSH PRN ×5 (03:28→22:11)
[2017-10-02] MEDS: HEPARIN-D5W 25,000 U/250 ML 250 ML IV PRN (03:30)
[2017-10-02 05:44] LABS: HEMATOCRIT 24.8 % (35.0-46.0); HEMOGLOBIN 7.9 GM/DL (11.6-15.3); MEAN CELL VOLUME 75.5 FL (80.0-100.0); MEAN CORPUSCULAR HGB CONC 31.8 % (32.0-36.0); MEAN PLATELET VOLUME 8.6 FL (7.0-11.0); PLATELET COUNT 146 TH/MM3 (150-450); RED BLOOD COUNT 3.29 MIL/MM3 (4.00-5.30); RED CELL DISTRIBUTION WIDTH 23.2 % (11.6-17.2); WHITE BLOOD COUNT 12.3 TH/MM3 (4.0-11.0)
[2017-10-02 06:10] LABS: BICARBONATE 30.8 MEQ/L (21.0-32.0); CALCIUM 9.1 MG/DL (8.5-10.1); CREATININE 1.15 MG/DL (0.50-1.00); MAGNESIUM 1.6 MG/DL (1.5-2.5)
[2017-10-02 06:11] LABS: PHOSPHORUS 3.2 MG/DL (2.5-4.9)
[2017-10-02] MEDS: ALBUMIN 25% INJ 100 ML IV SCH ×2 (06:43→18:08)
[2017-10-02 07:12] LABS: INTERNATIONAL NORMALIZED RATIO 2.4 RATIO; PROTHROMBIN TIME - PATIENT 24.4 SEC (9.8-11.6)
--- NOTE | 2017-10-02 07:25 | PD.VS.PN ---
Subjective Subjective/Hospital Course Foot still edematous, symmetric with other leg. Pt able to move and per her, bear weight no increase in pain Objective Vitals/I&O Date Time Temp Pulse Resp B/P (MAP) Pulse Ox O2 Delivery O2 Flow Rate FiO2 10/02/17 04:11 18 10/02/17 04:06 105 10/02/17 04:00 98.2 109 19 111/75 (87) 94 10/02/17 00:00 99 10/02/17 00:00 99.1 97 20 94/59 (71) 95 10/01/17 22:16 19 10/01/17 21:10 Room Air 10/01/17 20:14 100 10/01/17 20:00 99.6 99 19 96/54 (68) 95 10/01/17 16:00 104 10/01/17 16:00 97.4 104 20 102/66 (78) 94 10/01/17 16:00 Room Air 10/01/17 12:00 Room Air 10/01/17 12:00 109 10/01/17 12:00 93 Nasal Cannula 2.00 10/01/17 12:00 97.9 104 20 96/66 (76) 99 10/01/17 08:00 98.0 108 20 96/59 (71) 93 10/01/17 08:00 108 10/01/17 08:00 Room Air 10/02/17 10/02/17 10/02/17 07:00 15:00 23:00 Intake Total 450 ml Balance 450 ml Physical Exam B LE edematous with some erythema cyanosis/congestion of toes improved motor intact Laboratory Laboratory Tests Test 10/01/17 20:25 10/02/17 05:35 10/02/17 06:35 Potassium Level 3.9 4.2 White Blood Count 12.3 Red Blood Count 3.29 Hemoglobin 7.9 Hematocrit 24.8 Mean Corpuscular Volume 75.5 Mean Corpuscular Hemoglobin 24.0 Mean Corpuscular Hemoglobin Concent 31.8 Red Cell Distribution Width 23.2 Platelet Count 146 Mean Platelet Volume 8.6 Blood Urea Nitrogen 19 Creatinine 1.15 Random Glucose 99 Calcium Level 9.1 Phosphorus Level 3.2 Magnesium Level 1.6 Sodium Level 130 Chloride Level 91 Carbon Dioxide Level 30.8 Anion Gap 8 Estimat Glomerular Filtration Rate 53 Prothrombin Time 24.4 Prothromb Time International Ratio 2.4 Activated Partial Thromboplast Time 37.8 Date/Time Source Procedure Growth Status 09/09/17 05:50 Blood Peripheral Aerobic Blood Culture - Final NO GROWTH IN 5 DAYS Complete 09/09/17 05:50 Blood Peripheral Anaerobic Blood Culture - Final NO GROWTH IN 5 DAYS Complete 09/10/17 12:28 Stool Stool Stool Occult Blood (DONNY) - Final HEMOCCULT NEGATIVE Complete 09/08/17 21:50 Sputum Expectorated Sputum Gram Stain - Final Complete 09/08/17 21:50 Sputum Expectorated Sputum Sputum Culture - Final HEAVY GROWTH NORMAL RESPIRATORY PATRICIA Complete 08/31/17 22:30 Urine Suprapubic Urine Urine Culture - Final NO GROWTH IN 48 HOURS. Complete Imaging Last 48 hours Impressions Chest X-Ray 10/01/17 0000 Signed Impressions: Service Date/Time: Sunday, October 01, 2017 13:53 - CONCLUSION: No significant change in the right lower lobe infiltrate. Reuben Reece MD Assessment and Plan Plan 36/F w/ focal SFA occlusion but good distal opacification on CTA New discoloration of toes likely venous engorgement ABIs show moderate occlusive disease 1.Anticoagulate for valve: agree with goal INR 2.5-3.5 2. will arrange outpatient f/u with ABIs for PAD surveillance - no indication for intervention presently 3. Elevation as you are doing for edema Discharge Planning Pt on anticoagulation but anytime from vascular surgery standpoint ok to WBAT Arrange f/u in 2-3 weeks with ABIs Jerald Holloway MD Oct 02, 2017 07:25
[2017-10-02] MEDS: SODIUM CHLORIDE 0.9% FLUSH 10 ML FLUSH IV FLUSH SCH ×2 (09:00→21:06)
[2017-10-02] MEDS: DOCUSATE SODIUM 50 MG/SENNA 8.6 MG TAB PO SCH ×2 (09:00→21:00)
[2017-10-02] MEDS: FUROSEMIDE 20 MG/2 ML VIAL IV PUSH SCH ×2 (09:17→18:09)
[2017-10-02] MEDS: POTASSIUM CHLORIDE 10 MEQ CONTROLLED RELEASE TAB PO SCH ×2 (09:18→21:07)
[2017-10-02] MEDS: MORPHINE SULFATE 30 MG CONTROLLED RELEASE TAB PO SCH ×2 (09:18→21:07)
[2017-10-02] MEDS: RESP: ALBUTEROL 2.5 MG/3 ML NEB (PRN) NEB (11:17)
--- NOTE | 2017-10-02 15:08 | HHI.PR ---
Subjective Remarks Patient still c/o left side chest pain but improved mild sob + BL lower extremity edema c/o of throbing pain in LLE. Objective Vitals Vital Signs Date Time Temp Pulse Resp B/P (MAP) Pulse Ox O2 Delivery O2 Flow Rate FiO2 10/02/17 12:00 106 10/02/17 12:00 97.6 106 20 92/57 (69) 95 10/02/17 11:05 97 Nasal Cannula 2.00 10/02/17 10:00 Nasal Cannula 2.00 10/02/17 08:00 103 10/02/17 08:00 97.4 104 20 99/59 (72) 94 10/02/17 04:11 18 10/02/17 04:06 105 10/02/17 04:00 Room Air 10/02/17 04:00 98.2 109 19 111/75 (87) 94 10/02/17 00:00 99 10/02/17 00:00 Room Air 10/02/17 00:00 99.1 97 20 94/59 (71) 95 10/01/17 22:16 19 10/01/17 21:10 Room Air 10/01/17 20:14 100 10/01/17 20:00 99.6 99 19 96/54 (68) 95 10/01/17 16:00 104 10/01/17 16:00 97.4 104 20 102/66 (78) 94 10/01/17 16:00 Room Air I/O 10/01/17 10/01/17 10/01/17 10/02/17 10/02/17 10/02/17 07:00 15:00 23:00 07:00 15:00 23:00 Intake Total 550 ml 780 ml 450 ml Balance 550 ml 780 ml 450 ml Intake Oral 480 ml 100 ml IV Total 550 ml 300 ml 350 ml # Voids 6 3 # Bowel Movements 2 1 Result Diagram: 10/02/17 0535 10/02/17 0535 Imaging Last Impressions Chest X-Ray 10/01/17 0000 Signed Impressions: Service Date/Time: Sunday, October 01, 2017 13:53 - CONCLUSION: No significant change in the right lower lobe infiltrate. Reuben Reece MD Catheter Placement X-Ray 09/24/17 0000 Signed Impressions: Service Date/Time: Sunday, September 24, 2017 11:16 - CONCLUSION: Uncomplicated venous catheter change as above. Luis Leija MD Head CT 09/08/17 0000 Signed Impressions: Service Date/Time: Friday, September 08, 2017 10:22 - CONCLUSION: 1. Focal area of decreased density involving the right parietal lobe. As a new finding from the prior exam. This could relate to a small infarct. MRI of the brain with gadolinium suggested to further evaluate. 2. Small lacunar infarction involving the left centrum semiovale. Ananth Ponce Jr., MD CT Angiography 09/08/17 0000 Signed Impressions: Service Date/Time: Friday, September 08, 2017 10:28 - CONCLUSION: There extensive pulmonary emboli bilaterally. There is near complete cut off of the right lower lobe pulmonary artery. Prominent filling defects on the left as well. These findings were relayed to Dr. Dominguez immediately at the completion of the study. Scattered pulmonary infiltrates, small pleural effusion and extensive mediastinal lymphadenopathy as described above. Karsten Crowder MD Brain MRI 09/08/17 0000 Signed Impressions: Service Date/Time: Friday, September 08, 2017 18:04 - CONCLUSION: Deterioration in the appearance of the scan. At least 3 focal areas of abnormal contrast enhancement are present scattered to in both hemispheres. Given the history this most likely represents developing areas cerebritis. Exam is compromised by an uncooperative patient and motion artifact. These 2 factors make detection of other abnormalities such as cortical cephalitis and meningitis difficult to exclude. Cannot exclude hemorrhagic lesions as well. There is no mass effect evident. Geremias Mauricio MD Chest CT 09/03/17 0000 Signed Impressions: Service Date/Time: Sunday, September 03, 2017 12:41 - CONCLUSION: 1. There are at least 5 pulmonary nodules present bilaterally with the largest measuring 19 mm. None demonstrate cavitation but it is possible that these represent septic emboli. Suggest followup to assess for change. 2. Splenomegaly with subtle wedge-shaped areas of low-density in the mid spleen which could represent infarcts. 3. Mild cardiomegaly in this patient post aortic valve replacement. Low density of the cardiac blood pool suggests anemia. Adalid Galo MD Aorta w/Runoff CTA 09/02/17 0000 Signed Impressions: Service Date/Time: Saturday, September 02, 2017 12:47 - CONCLUSION: Left renal cortical infarction. 5-6 cm length total occlusion of the left superficial femoral artery in the proximal thigh. Nodular parenchymal opacities in the lung bases bilaterally See above discussion. Adalid Dallas MD Renal Ultrasound 09/01/17 0000 Signed Impressions: Service Date/Time: Friday, September 01, 2017 10:53 - CONCLUSION: 1. No evidence of hydronephrosis. 2. Thickening of the urinary bladder wall a 1.1 cm. 3. Prominent splenomegaly. Baldemar Pineda MD Breast Ultrasound 09/01/17 0000 Signed Impressions: Service Date/Time: Friday, September 01, 2017 10:48 - CONCLUSION: Negative targeted right breast ultrasound examination. Adalid Haney MD Lower Extremity Ultrasound 08/31/17 0000 Signed Impressions: Service Date/Time: Thursday, August 31, 2017 21:22 - CONCLUSION: 1. No sonographic evidence for lower extremity DVT. 2. Incidental note of bilateral inguinal adenopathy with the largest on the right measuring 3.3 cm and the largest on the left measuring 2.6 cm. This finding is nonspecific but is typically reactive in etiology. Luis Leija MD Objective Remarks AAOx3 NAD Clear lungs BL S1S2 4/6 systolic ejection murmur +3 BL lower extremity edema. Erythema improved, left foot very tender to palpation. . Dark discoloration resolved. pulses not palpable due to edema. Good capillary refill. Medications and IVs Current Medications Medications (Trade) Dose Ordered Sig/Jessica Route Start Time Stop Time Status Last Admin (NS Flush) 2 ml UNSCH PRN IV FLUSH 08/31/17 22:00 09/30/17 06:32 (NS Flush) 2 ml BID IV FLUSH 09/01/17 09:00 09/30/17 20:28 (Tylenol) 650 mg Q6H PRN PO 08/31/17 22:00 09/24/17 01:19 (Zofran Inj) 4 mg Q6H PRN IV PUSH 08/31/17 22:00 09/13/17 21:22 (Restoril) 15 mg HS PRN PO 08/31/17 22:00 09/11/17 22:08 Miscellaneous Information 1 Q361D XX 08/31/17 22:00 (Chlorhexidine 2% Cloth) Taper DAILY@04 TOP 09/01/17 04:00 08/28/18 03:59 09/11/17 03:54 (Chlorhexidine 2% Cloth) 3 pack UNSCH PRN TOP 08/31/17 22:00 (Armida-Colace) 1 tab BID PO 09/01/17 09:00 09/29/17 20:50 (Milk Of Magnesia Liq) 30 ml Q12H PRN PO 08/31/17 22:00 (Senokot) 17.2 mg Q12H PRN PO 08/31/17 22:00 (Dulcolax Supp) 10 mg DAILY PRN RECTAL 08/31/17 22:00 (Lactulose Liq) 30 ml DAILY PRN PO 08/31/17 22:00 Ampicillin Sodium 2000 mg/Sodium Chloride 100 ml @ 400 mls/hr Q6H IV 09/01/17 14:00 10/02/17 14:46 (Imodium) 2 mg Q4H PRN PO 09/03/17 16:15 09/05/17 14:32 (Albuterol Neb) 2.5 mg Q2HR NEB PRN NEB 09/04/17 11:30 10/02/17 11:17 ([place] 10-325 Mg) 1 tab Q4H PRN PO 09/09/17 15:00 09/14/17 05:02 (Dilaudid Pf Inj) 1 mg Q4H PRN IV PUSH 09/12/17 19:00 10/02/17 12:53 (KCl) 60 meq Q12HR PO 09/19/17 09:45 10/02/17 09:18 Albumin Human 100 ml @ 60 mls/hr Q12H IV 09/23/17 18:00 10/02/17 06:43 (Lasix Inj) 40 mg BID@,18 IV PUSH 09/26/17 09:00 10/02/17 09:17 Daptomycin 500 mg/ Sodium Chloride 100 ml @ 200 mls/hr Q24H IV 09/27/17 20:00 10/01/17 21:11 Pharmacy Profile Note 0 ml @ 0 mls/hr UNSCH OTHER 09/28/17 16:15 Heparin Sodium/ Dextrose 250 ml @ 18 mls/hr TITRATE PRN IV 09/28/17 16:30 10/02/17 03:30 (Pill Splitter) 1 ea UNSCH PRN OTHER 09/30/17 11:15 (Oramorph Sr) 30 mg Q12HR PO 10/01/17 21:00 10/02/17 09:18 (Coumadin) 1 mg DAILY@16 PO 10/02/17 16:00 Date of Insertion: Sep 24, 2017 Line: Central Venous Catheter Side: Right Location: Internal, Jugular A/P Problem List: (1) Prosthetic valve endocarditis ICD Code: T82.6XXA - Infection and inflammatory reaction due to cardiac valve prosthesis, initial encounter Status: Acute (2) Bacteremia ICD Code: R78.81 - Bacteremia (3) Septic pulmonary embolism ICD Code: I26.90 - Septic pulmonary embolism without acute cor pulmonale Status: Acute (4) IVDU (intravenous drug user) ICD Code: F19.90 - Other psychoactive substance use, unspecified, uncomplicated (5) Anemia ICD Code: D64.9 - Anemia, unspecified Status: Chronic (6) DUONG (acute kidney injury) ICD Code: N17.9 - Acute kidney failure, unspecified Plan: Creatinine initially worsening from 1.52-1.57. Nephrology consulted. Possible ATN from vancomycin toxicity or infection. Urine eosinophils were ordered and negative. Diuretics managed by nephrology. Initially on Lasix 20 mg IV twice daily along with albumin. Creatinine Worsening on 09/24 for 1.57- 1.62. Later Lasix dose was increased to 40 mg IV twice daily and metolazone added to the regimen. Creatinine then started trending down to 1.34 on 09/28. 09/29 creatinine slightly elevated however stable at 1.37. Continue diuretics as per nephrology. Patient was placed on 1 L fluid restriction on an effort to keep the patient on an negative fluid balance. Continue to monitor BUN and creatinine, strict I's and O's, avoid nephrotoxins. 10/02 Creatinine stable at 1.15. Good urine output. (7) Cellulitis of left lower extremity ICD Code: L03.116 - Cellulitis of left lower limb Plan: Continue IV antibiotics as per ID. Cellulitis seems to be improving. (8) Purple toe syndrome ICD Code: I75.029 - Atheroembolism of unspecified lower extremity Plan: Patient has a blue/purple discoloration of the left toes. 09/29 INR 2.0. Dosing as per pharmacy. Continue IV heparin bridge until INR is more than 2.5. Appreciate vascular surgery recommendations. Follow-up ABIs, continue neurovascular checks. Out of bed ad debby., continue anticoagulation. 09/30 Ankle-brachial indices are decreased and below normal. The toe brachial indices could not be obtained given the pulses could not be obtained in the first digits. Continue heparin bridge to Coumadin. Goal inr 2.5 to 3.5. Management as per vascular surgery. (9) Pleuritic chest pain ICD Code: R07.81 - Pleurodynia Plan: Obtain a chest x-ray. Patient currently on morphine sulfate 15 mg p.o. every 12 hours. I will increase to 30 minutes p.o. every 12 hours. Continue [place] as needed as well as Dilaudid. Assessment and Plan (1) Prosthetic valve endocarditis Plan: Continue antibiotics as per ID. The patient was initially on IV ampicillin. On 09/24 ID started Rocephin for pulmonary coverage since chest x-ray showed a developing infiltrate. On 09/25 palliative care consulted by hematology. As per hematology documentation the patient requested to talk to palliative care to see if she is a hospice candidate. Discussed with palliative care who states that the patient's goals are aggressive and she wants to get better. The patient definitely is a hospice candidate, however her goals are not hospice appropriate. Patient was started on Oramorph SR 30 mg p.o. twice a day for pain control. Continue heparin drip until the patient's INR reaches 2.5. Goal INR should be 2.5-3.5 since the patient has an aortic prosthetic valve. Will reconsult vascular surgery. Pedal pulses present by Doppler -obtained by me. (2) Bacteremia Plan: Blood cultures obtained on 08/31 growing strep viridans. Subsequent repeat blood cultures negative. 09/24 sp Exchange of Right IJ central line. Continue antibiotics as per ID recommendations. (3) Septic pulmonary embolism Plan: As observed on a CT angiography of the chest obtained on 09/08/17. chocardiogram on 09/08 showed an estimated EF of 50-55%. ++severe tricuspid regurgitation with prosthesis in place. ++2 x 4 cm mobile vegetation was seen on the valve. The right atrium and right ventricle were normal in size and function Hematology following. Management of Coumadin as per hematology recommendations. Goal INR 2.5-3.5 given the presence of a prosthetic aortic valve. (4) IVDU (intravenous drug user) Plan: Counseled on drug cessation. (5) Anemia Plan: Likely secondary to inflammation/infection. No evidence of bleeding or hemolysis. Monitor hemoglobin and transfuse as needed. Discharge Planning Continue to monitor on the medical floor. Problem Qualifiers (1) Prosthetic valve endocarditis: Qualified Codes: T82.6XXA - Infection and inflammatory reaction due to cardiac valve prosthesis, initial encounter (2) Anemia: Qualified Codes: D63.8 - Anemia in other chronic diseases classified elsewhere (3) Purple toe syndrome: Qualified Codes: I75.022 - Atheroembolism of left lower extremity Jaylen Livingston MD Oct 02, 2017 15:08
[2017-10-02] MEDS ORDERED: MORPHINE SULFATE 15 MG CONTROLLED RELEASE TAB PO ONE (15:15)
[2017-10-02] MEDS: WARFARIN SOD 1 MG TAB PO SCH (15:25)
[2017-10-02] MEDS: DAPTOmycin INJ 500 MG in SODIUM CHLORIDE 0.9% INJ 100 ML IV SCH (21:06)
--- NOTE | 2017-10-02 22:04 | HHI.NPPN ---
Subjective History of Present Illness This is a 37-year-old female with past medical history of IV drug abuse, history of hepatitis C, narcotic dependency, came to the hospital with complaint of shortness of breath and swelling. Nephrology called to see the patient because of elevated BUN and creatinine. The patient has creatinine of 4.5 on admission which improved and it was staying in the range of 0.6-0.8 until 6 days ago, then it started going up again and now it is 1.7. The patient has increased swelling of the legs and the patient was diagnosed with endocarditis and she has blood culture positive for Strep viridans. Patient has been following with the ID and she was getting furosemide, which was stopped today this morning because of increased creatinine and she was on vancomycin and rifampicin. The last dose of vancomycin seems to be given possibly on 09/09/2017 or even later, but her level was high and the highest level we have was 25.8, which was on 09/09/2017 but on 09/15/2017 it was 23.9. The patient has been actively using IV drugs before she came to the hospital and noticed to have more swelling in her legs. She is complaining of generalized body pain. There is no nausea, vomiting. Denies any diarrhea. Her appetite is normal. Additional Remarks Continue with bilateral lower extremity edema however slightly improved, not in distress. Review of Systems General Constitutional: Fatigue Respiratory Lungs: SOB Respiratory Remarks improving Cardiovascular Cardiac: Edema, FOREMAN Cardiac Remarks Denies CP Gastrointestinal GI Remarks denies abdominal pain Objective Data Data 10/02/17 10/03/17 19:00 07:00 # Voids 4 # Bowel Movements 1 Vital Signs Date Time Temp Pulse Resp B/P (MAP) Pulse Ox O2 Delivery O2 Flow Rate FiO2 10/02/17 21:29 Nasal Cannula 2.00 10/02/17 18:51 Nasal Cannula 2.00 10/02/17 16:17 101 10/02/17 16:00 98.1 96 20 89/56 (67) 96 10/02/17 14:00 Nasal Cannula 2.00 10/02/17 12:00 106 10/02/17 12:00 97.6 106 20 92/57 (69) 95 10/02/17 11:05 97 Nasal Cannula 2.00 10/02/17 10:00 Nasal Cannula 2.00 10/02/17 08:00 103 10/02/17 08:00 97.4 104 20 99/59 (72) 94 10/02/17 04:11 18 10/02/17 04:06 105 10/02/17 04:00 Room Air 10/02/17 04:00 98.2 109 19 111/75 (87) 94 10/02/17 00:00 99 10/02/17 00:00 Room Air 10/02/17 00:00 99.1 97 20 94/59 (71) 95 10/01/17 22:16 19 -: 10/02/17 0535 10/02/17 0535 Physical Exam General Appearance: No Acute Distress, Anxious Eyes Eye Exam: Pupils Equal Throat Throat Exam: Oral Mucosa [place] & Moist Neck Neck Exam: Neck Supple Pulmonary Resp Exam: Clear Bilaterally Cardiology CV Exam: Regular, Normal Sinus Rhythm Gastrointestinal/Abdomen GI Exam: Soft, Non-Tender Integumentary Skin Exam: Dry, Intact Extremeties Extremities Exam: Pitting Edema Neurologic Neuro Exam: Alert, Awake, Oriented Psychiatric Psych Exam: Appropriate Responses Assessment/Plan Discussed Condition With: Patient Assessment Summary: DUONG/Acute Renal Failure Problem List: (1) Acute kidney injury ICD Codes: N17.9 - Acute kidney failure, unspecified Status: Acute Plan: DUONG likely due to vancomycin toxicity, post-infectious GN is unlikely. Possibility of ATN or pre renal. Urine eosinophils negative, complements wnl Creatinine stable Good UOP Plan Creatinine is stable Hypokalemia replacement given Continue Lasix 40 mg IV BID Continue to monitor BMP and UOP Encouraged to elevate legs throughout day Avoid nephrotoxins when possible. Continue diuretics, told to restrict fluid intake. (2) Prosthetic valve endocarditis ICD Codes: T82.6XXA - Infection and inflammatory reaction due to cardiac valve prosthesis, initial encounter Status: Acute Plan: septic endocarditis with strep viridans IV drug use, pulmonary emboli as well. Continues antibiotics per ID continue renal dosing antibiotics. (3) Peripheral arterial occlusive disease ICD Codes: I77.9 - Disorder of arteries and arterioles, unspecified Plan: seen with vascular, continue medical management Hold contrast studies as possible. (4) Hepatitis C ICD Codes: B19.20 - Unspecified viral hepatitis C without hepatic coma Status: Chronic Problem Qualifiers (1) Prosthetic valve endocarditis: Qualified Codes: T82.6XXA - Infection and inflammatory reaction due to cardiac valve prosthesis, initial encounter Randal Salinas MD Oct 02, 2017 22:04
[2017-10-03] VITALS (9 sets, daily range): BP systolic 94–112; BP diastolic 55–72; PULSE 98–113; RESP 18–20; TEMP 97.6–98.3; O2SAT 90–100
[2017-10-03] MEDS: HYDROmorphone HCL PF 2 MG/ML VIAL IV PUSH PRN ×5 (02:21→20:18)
[2017-10-03] MEDS: AMPICILLIN INJ 2,000 MG in SODIUM CHLORIDE 0.9% INJ 100 ML IV SCH ×4 (02:22→20:18)
[2017-10-03] MEDS: HEPARIN-D5W 25,000 U/250 ML 250 ML IV PRN (02:29)
[2017-10-03] MEDS: CHLORHEXIDINE GLUCONATE 2 % 1 PACK (2 CLOTHS) TOP SCH (03:04)
[2017-10-03] MEDS: ALBUMIN 25% INJ 100 ML IV SCH ×2 (06:02→17:30)
[2017-10-03 06:40] LABS: INTERNATIONAL NORMALIZED RATIO 2.6 RATIO; PROTHROMBIN TIME - PATIENT 26.1 SEC (9.8-11.6)
[2017-10-03 06:53] LABS: HEMATOCRIT 23.7 % (35.0-46.0); HEMOGLOBIN 7.5 GM/DL (11.6-15.3); MEAN CELL VOLUME 75.9 FL (80.0-100.0); MEAN CORPUSCULAR HGB CONC 31.6 % (32.0-36.0); MEAN PLATELET VOLUME 8.5 FL (7.0-11.0); PLATELET COUNT 106 TH/MM3 (150-450); RED BLOOD COUNT 3.11 MIL/MM3 (4.00-5.30); RED CELL DISTRIBUTION WIDTH 23.2 % (11.6-17.2); WHITE BLOOD COUNT 12.1 TH/MM3 (4.0-11.0)
[2017-10-03 06:59] LABS: BICARBONATE 31.2 MEQ/L (21.0-32.0); CALCIUM 8.6 MG/DL (8.5-10.1); CREATININE 1.18 MG/DL (0.50-1.00)
[2017-10-03] MEDS: SODIUM CHLORIDE 0.9% FLUSH 10 ML FLUSH IV FLUSH SCH ×2 (08:49→20:18)
[2017-10-03] MEDS: FUROSEMIDE 20 MG/2 ML VIAL IV PUSH SCH ×2 (08:50→17:30)
[2017-10-03] MEDS: MORPHINE SULFATE 30 MG CONTROLLED RELEASE TAB PO SCH (08:50)
[2017-10-03] MEDS: DOCUSATE SODIUM 50 MG/SENNA 8.6 MG TAB PO SCH ×3 (08:50→21:22)
[2017-10-03] MEDS: POTASSIUM CHLORIDE 10 MEQ CONTROLLED RELEASE TAB PO SCH ×2 (08:50→21:21)
[2017-10-03] MEDS ORDERED: POTASSIUM CHLORIDE 10 MEQ CONTROLLED RELEASE TAB PO ONE (09:15)
--- NOTE | 2017-10-03 13:45 | HHI.PR ---
Subjective Remarks Patient states she has throbbing 7 out of 10 pain in the left foot Also states that her left leg is very tender and sensitive. Pain in right sided chest is improving. Patient is afebrile. Objective Vitals Vital Signs Date Time Temp Pulse Resp B/P (MAP) Pulse Ox O2 Delivery O2 Flow Rate FiO2 10/03/17 12:59 Room Air 10/03/17 12:00 98.0 113 20 102/57 (72) 97 10/03/17 12:00 103 10/03/17 09:20 Room Air 10/03/17 08:00 102 10/03/17 08:00 98.3 107 20 107/57 (74) 90 10/03/17 04:05 108 10/03/17 04:00 Room Air 10/03/17 04:00 97.8 107 20 112/55 (74) 100 10/03/17 03:04 19 10/03/17 00:00 97.7 107 18 102/65 (77) 98 10/03/17 00:00 Room Air 10/02/17 23:58 100 10/02/17 23:08 19 10/02/17 21:29 Nasal Cannula 2.00 10/02/17 21:05 Room Air 10/02/17 20:00 98.1 106 20 107/68 (81) 97 10/02/17 19:50 106 10/02/17 18:51 Nasal Cannula 2.00 10/02/17 16:17 101 10/02/17 16:00 98.1 96 20 89/56 (67) 96 10/02/17 14:00 Nasal Cannula 2.00 I/O 10/02/17 10/02/17 10/02/17 10/03/17 10/03/17 10/03/17 07:00 15:00 23:00 07:00 15:00 23:00 Intake Total 450 ml 300 ml 200 ml Output Total 1700 ml Balance 450 ml 300 ml -1500 ml Intake Oral 100 ml 100 ml IV Total 350 ml 300 ml 100 ml Output Urine Total 1700 ml # Voids 3 4 # Bowel Movements 1 1 1 Result Diagram: 10/03/17 0600 10/03/17 0600 Imaging Last Impressions Chest X-Ray 10/01/17 0000 Signed Impressions: Service Date/Time: Sunday, October 01, 2017 13:53 - CONCLUSION: No significant change in the right lower lobe infiltrate. Reuben Reece MD Catheter Placement X-Ray 09/24/17 0000 Signed Impressions: Service Date/Time: Sunday, September 24, 2017 11:16 - CONCLUSION: Uncomplicated venous catheter change as above. Luis Leija MD Head CT 09/08/17 0000 Signed Impressions: Service Date/Time: Friday, September 08, 2017 10:22 - CONCLUSION: 1. Focal area of decreased density involving the right parietal lobe. As a new finding from the prior exam. This could relate to a small infarct. MRI of the brain with gadolinium suggested to further evaluate. 2. Small lacunar infarction involving the left centrum semiovale. Ananth Ponce Jr., MD CT Angiography 09/08/17 0000 Signed Impressions: Service Date/Time: Friday, September 08, 2017 10:28 - CONCLUSION: There extensive pulmonary emboli bilaterally. There is near complete cut off of the right lower lobe pulmonary artery. Prominent filling defects on the left as well. These findings were relayed to Dr. Dominguez immediately at the completion of the study. Scattered pulmonary infiltrates, small pleural effusion and extensive mediastinal lymphadenopathy as described above. Karsten Crowder MD Brain MRI 09/08/17 0000 Signed Impressions: Service Date/Time: Friday, September 08, 2017 18:04 - CONCLUSION: Deterioration in the appearance of the scan. At least 3 focal areas of abnormal contrast enhancement are present scattered to in both hemispheres. Given the history this most likely represents developing areas cerebritis. Exam is compromised by an uncooperative patient and motion artifact. These 2 factors make detection of other abnormalities such as cortical cephalitis and meningitis difficult to exclude. Cannot exclude hemorrhagic lesions as well. There is no mass effect evident. Geremias Mauricio MD Chest CT 09/03/17 0000 Signed Impressions: Service Date/Time: Sunday, September 03, 2017 12:41 - CONCLUSION: 1. There are at least 5 pulmonary nodules present bilaterally with the largest measuring 19 mm. None demonstrate cavitation but it is possible that these represent septic emboli. Suggest followup to assess for change. 2. Splenomegaly with subtle wedge-shaped areas of low-density in the mid spleen which could represent infarcts. 3. Mild cardiomegaly in this patient post aortic valve replacement. Low density of the cardiac blood pool suggests anemia. Adalid Galo MD Aorta w/Runoff CTA 09/02/17 0000 Signed Impressions: Service Date/Time: Saturday, September 02, 2017 12:47 - CONCLUSION: Left renal cortical infarction. 5-6 cm length total occlusion of the left superficial femoral artery in the proximal thigh. Nodular parenchymal opacities in the lung bases bilaterally See above discussion. Adalid Dallas MD Renal Ultrasound 09/01/17 0000 Signed Impressions: Service Date/Time: Friday, September 01, 2017 10:53 - CONCLUSION: 1. No evidence of hydronephrosis. 2. Thickening of the urinary bladder wall a 1.1 cm. 3. Prominent splenomegaly. Baldemar Pineda MD Breast Ultrasound 09/01/17 0000 Signed Impressions: Service Date/Time: Friday, September 01, 2017 10:48 - CONCLUSION: Negative targeted right breast ultrasound examination. Adalid Haney MD Lower Extremity Ultrasound 08/31/17 0000 Signed Impressions: Service Date/Time: Thursday, August 31, 2017 21:22 - CONCLUSION: 1. No sonographic evidence for lower extremity DVT. 2. Incidental note of bilateral inguinal adenopathy with the largest on the right measuring 3.3 cm and the largest on the left measuring 2.6 cm. This finding is nonspecific but is typically reactive in etiology. Luis Leija MD Objective Remarks AAOx3 NAD Clear lungs BL S1S2 4/6 systolic ejection murmur +3 BL lower extremity edema. Erythema improved, left foot very tender to palpation. . Dark discoloration resolved. pulses not palpable due to edema. Good capillary refill. Medications and IVs Current Medications Medications (Trade) Dose Ordered Sig/Jessica Route Start Time Stop Time Status Last Admin (NS Flush) 2 ml UNSCH PRN IV FLUSH 08/31/17 22:00 09/30/17 06:32 (NS Flush) 2 ml BID IV FLUSH 09/01/17 09:00 10/02/17 21:06 (Tylenol) 650 mg Q6H PRN PO 08/31/17 22:00 09/24/17 01:19 (Zofran Inj) 4 mg Q6H PRN IV PUSH 08/31/17 22:00 09/13/17 21:22 (Restoril) 15 mg HS PRN PO 08/31/17 22:00 09/11/17 22:08 Miscellaneous Information 1 Q361D XX 08/31/17 22:00 (Chlorhexidine 2% Cloth) Taper DAILY@04 TOP 09/01/17 04:00 08/28/18 03:59 09/11/17 03:54 (Chlorhexidine 2% Cloth) 3 pack UNSCH PRN TOP 08/31/17 22:00 (Armida-Colace) 1 tab BID PO 09/01/17 09:00 09/29/17 20:50 (Milk Of Magnesia Liq) 30 ml Q12H PRN PO 08/31/17 22:00 (Senokot) 17.2 mg Q12H PRN PO 08/31/17 22:00 (Dulcolax Supp) 10 mg DAILY PRN RECTAL 08/31/17 22:00 (Lactulose Liq) 30 ml DAILY PRN PO 08/31/17 22:00 Ampicillin Sodium 2000 mg/Sodium Chloride 100 ml @ 400 mls/hr Q6H IV 09/01/17 14:00 10/03/17 08:49 (Imodium) 2 mg Q4H PRN PO 09/03/17 16:15 09/05/17 14:32 (Albuterol Neb) 2.5 mg Q2HR NEB PRN NEB 09/04/17 11:30 10/02/17 11:17 ([place] 10-325 Mg) 1 tab Q4H PRN PO 09/09/17 15:00 09/14/17 05:02 (Dilaudid Pf Inj) 1 mg Q4H PRN IV PUSH 09/12/17 19:00 10/03/17 10:59 (KCl) 60 meq Q12HR PO 09/19/17 09:45 10/03/17 08:50 Albumin Human 100 ml @ 60 mls/hr Q12H IV 09/23/17 18:00 10/03/17 06:02 (Lasix Inj) 40 mg BID@ IV PUSH 09/26/17 09:00 10/03/17 08:50 Daptomycin 500 mg/ Sodium Chloride 100 ml @ 200 mls/hr Q24H IV 09/27/17 20:00 10/02/17 21:06 Pharmacy Profile Note 0 ml @ 0 mls/hr UNSCH OTHER 09/28/17 16:15 (Pill Splitter) 1 ea UNSCH PRN OTHER 09/30/17 11:15 (Oramorph Sr) 30 mg Q12HR PO 10/01/17 21:00 10/03/17 08:50 (Coumadin) 1 mg DAILY@16 PO 10/02/17 16:00 10/02/17 15:25 Date of Insertion: Sep 24, 2017 Line: Central Venous Catheter Side: Right Location: Internal, Jugular A/P Problem List: (1) Prosthetic valve endocarditis ICD Code: T82.6XXA - Infection and inflammatory reaction due to cardiac valve prosthesis, initial encounter Status: Acute (2) Bacteremia ICD Code: R78.81 - Bacteremia (3) Septic pulmonary embolism ICD Code: I26.90 - Septic pulmonary embolism without acute cor pulmonale Status: Acute (4) IVDU (intravenous drug user) ICD Code: F19.90 - Other psychoactive substance use, unspecified, uncomplicated (5) Anemia ICD Code: D64.9 - Anemia, unspecified Status: Chronic (6) DUONG (acute kidney injury) ICD Code: N17.9 - Acute kidney failure, unspecified (7) Cellulitis of left lower extremity ICD Code: L03.116 - Cellulitis of left lower limb (8) Purple toe syndrome ICD Code: I75.029 - Atheroembolism of unspecified lower extremity (9) Pleuritic chest pain ICD Code: R07.81 - Pleurodynia Assessment and Plan (1) Prosthetic valve endocarditis Plan: Continue antibiotics as per ID. The patient was initially on IV ampicillin. On 09/24 ID started Rocephin for pulmonary coverage since chest x-ray showed a developing infiltrate. On 09/25 palliative care consulted by hematology. As per hematology documentation the patient requested to talk to palliative care to see if she is a hospice candidate. Discussed with palliative care who states that the patient's goals are aggressive and she wants to get better. The patient definitely is a hospice candidate, however her goals are not hospice appropriate. Patient was started on Oramorph SR 30 mg p.o. twice a day for pain control. Continue heparin drip until the patient's INR reaches 2.5. Goal INR should be 2.5-3.5 since the patient has an aortic prosthetic valve. Will reconsult vascular surgery. Pedal pulses present by Doppler -obtained by me. (2) Bacteremia Plan: Blood cultures obtained on 08/31 growing strep viridans. Subsequent repeat blood cultures negative. 09/24 sp Exchange of Right IJ central line. Continue antibiotics as per ID recommendations. (3) Septic pulmonary embolism Plan: As observed on a CT angiography of the chest obtained on 09/08/17. chocardiogram on 09/08 showed an estimated EF of 50-55%. ++severe tricuspid regurgitation with prosthesis in place. ++2 x 4 cm mobile vegetation was seen on the valve. The right atrium and right ventricle were normal in size and function Hematology following. Management of Coumadin as per hematology recommendations. Goal INR 2.5-3.5 given the presence of a prosthetic aortic valve. (4) IVDU (intravenous drug user) Plan: Counseled on drug cessation. (5) Anemia Plan: Likely secondary to inflammation/infection. No evidence of bleeding or hemolysis. Monitor hemoglobin and transfuse as needed. (6) DUONG (acute kidney injury) Plan: Nephrology consulted. Possible ATN from vancomycin toxicity or infection. Urine eosinophils were ordered and negative. Diuretics managed by nephrology. Initially on Lasix 20 mg IV twice daily along with albumin. Creatinine Worsening on 09/24 for 1.57-1.62. Later Lasix dose was increased to 40 mg IV twice daily and metolazone added to the regimen. Creatinine then started trending down to 1.34 on 09/28. 10/03 creatinine stable at 1.18. Management as per nephrology. Continue to monitor BUN and creatinine, avoid nephrotoxins, history I's and O's. (7) Cellulitis of left lower extremity Plan: Continue IV antibiotics as per ID. Cellulitis seems to be improving. (8) Purple toe syndrome Plan: Patient has a blue/purple discoloration of the left toes. Vascular surgery consulted. Recommended medical management. Ankle-brachial indices are decreased and below normal. The toe brachial indices could not be obtained given the pulses could not be obtained in the first digits. Patient initially started on IV heparin. Goal INR 2.5-3.5. 09/05 INR therapeutic, discontinue IV heparin. Monitor PT/INR daily. Pharmacy helping with dosing and monitoring. Patient also with severe excruciating pain secondary to possible some ischemia. Increase dose of morphine sulfate from 30 mg p.o. every 12 hours to 45 mg p.o. every 12 hours. (9) Pleuritic chest pain Improving control of pleuritic chest pain. Repeat chest x-ray obtained on did not show any significant change in the right lower lobe infiltrate. Patient will need a follow-up chest x-ray in a couple days. Increase morphine sulfate as stated above. Discharge Planning Patient with static valve endocarditis, bacteremia, septic pulmonary embolism, acute kidney injury, denies of the left lower extremity and carpal tunnel syndrome currently on IV antibiotics. Patient still edematous, good urine output. Will need ID clearance prior to discharge. Problem Qualifiers (1) Prosthetic valve endocarditis: Qualified Codes: T82.6XXA - Infection and inflammatory reaction due to cardiac valve prosthesis, initial encounter (2) Anemia: Qualified Codes: D63.8 - Anemia in other chronic diseases classified elsewhere (3) Purple toe syndrome: Qualified Codes: I75.022 - Atheroembolism of left lower extremity Jaylen Livingston MD Oct 03, 2017 13:45
--- NOTE | 2017-10-03 15:37 | HHI.NPPN ---
Subjective History of Present Illness This is a 37-year-old female with past medical history of IV drug abuse, history of hepatitis C, narcotic dependency, came to the hospital with complaint of shortness of breath and swelling. Nephrology called to see the patient because of elevated BUN and creatinine. The patient has creatinine of 4.5 on admission which improved and it was staying in the range of 0.6-0.8 until 6 days ago, then it started going up again and now it is 1.7. The patient has increased swelling of the legs and the patient was diagnosed with endocarditis and she has blood culture positive for Strep viridans. Patient has been following with the ID and she was getting furosemide, which was stopped today this morning because of increased creatinine and she was on vancomycin and rifampicin. The last dose of vancomycin seems to be given possibly on 09/09/2017 or even later, but her level was high and the highest level we have was 25.8, which was on 09/09/2017 but on 09/15/2017 it was 23.9. The patient has been actively using IV drugs before she came to the hospital and noticed to have more swelling in her legs. She is complaining of generalized body pain. There is no nausea, vomiting. Denies any diarrhea. Her appetite is normal. Additional Remarks Continue with bilateral lower extremity edema. Mild SOB (Deena Oh) Review of Systems General Constitutional: Fatigue (Deena Oh) Respiratory Lungs: SOB Respiratory Remarks improving (Deena Oh) Cardiovascular Cardiac: Edema, FOREMAN Cardiac Remarks Denies CP (Deena Oh) Gastrointestinal GI Remarks denies abdominal pain (Deena Oh) Objective Data Data Vital Signs Date Time Temp Pulse Resp B/P (MAP) Pulse Ox O2 Delivery O2 Flow Rate FiO2 10/03/17 12:59 Room Air 10/03/17 12:00 98.0 113 20 102/57 (72) 97 10/03/17 12:00 103 10/03/17 09:20 Room Air 10/03/17 08:00 102 10/03/17 08:00 98.3 107 20 107/57 (74) 90 10/03/17 04:05 108 10/03/17 04:00 Room Air 10/03/17 04:00 97.8 107 20 112/55 (74) 100 10/03/17 03:04 19 10/03/17 00:00 97.7 107 18 102/65 (77) 98 10/03/17 00:00 Room Air 10/02/17 23:58 100 10/02/17 23:08 19 10/02/17 21:29 Nasal Cannula 2.00 10/02/17 21:05 Room Air 10/02/17 20:00 98.1 106 20 107/68 (81) 97 10/02/17 19:50 106 10/02/17 18:51 Nasal Cannula 2.00 10/02/17 16:17 101 10/02/17 16:00 98.1 96 20 89/56 (67) 96 (Deena Oh) -: 10/03/17 0600 10/03/17 0600 Physical Exam General Appearance: No Acute Distress, Anxious (Deena Oh) Eyes Eye Exam: Pupils Equal (Deena Oh) Throat Throat Exam: Oral Mucosa Dupo & Moist (Deena Oh) Neck Neck Exam: Neck Supple (Deena Oh) Pulmonary Resp Exam: Clear Bilaterally (Deena Oh) Cardiology CV Exam: Regular, Normal Sinus Rhythm (Deena Oh) Gastrointestinal/Abdomen GI Exam: Soft, Non-Tender (Deena Oh) Integumentary Skin Exam: Dry, Intact (Deena Oh) Extremeties Extremities Exam: Pitting Edema (Deena Oh) Neurologic Neuro Exam: Alert, Awake, Oriented (Deena Oh) Psychiatric Psych Exam: Appropriate Responses (Deena Oh) Assessment/Plan Discussed Condition With: Patient Assessment Summary: DUONG/Acute Renal Failure Problem List: (1) Acute kidney injury ICD Codes: N17.9 - Acute kidney failure, unspecified Status: Acute Plan: DUONG likely due to vancomycin toxicity, post-infectious GN is unlikely. Possibility of ATN or pre renal. Urine eosinophils negative, complements wnl Creatinine stable Good UOP Plan Hypokalemia replacement given Continue Lasix 40 mg IV BID lower extremity edema persistent Continue to monitor BMP and UOP Encouraged to elevate legs throughout day Avoid nephrotoxins when possible. Fluid restriction in place (2) Prosthetic valve endocarditis ICD Codes: T82.6XXA - Infection and inflammatory reaction due to cardiac valve prosthesis, initial encounter Status: Acute Plan: septic endocarditis with strep viridans IV drug use, pulmonary emboli as well. Continues antibiotics per ID continue renal dosing antibiotics. (3) Peripheral arterial occlusive disease ICD Codes: I77.9 - Disorder of arteries and arterioles, unspecified Plan: seen with vascular, continue medical management Hold contrast studies as possible. (4) Hepatitis C ICD Codes: B19.20 - Unspecified viral hepatitis C without hepatic coma Status: Chronic (Deena Oh) Problem List: (1) Acute kidney injury ICD Codes: N17.9 - Acute kidney failure, unspecified Status: Acute Plan: DUONG likely due to vancomycin toxicity, post-infectious GN is unlikely. Possibility of ATN or pre renal. Urine eosinophils negative, complements wnl Creatinine stable Good UOP Plan Hypokalemia replacement given Continue Lasix 40 mg IV BID lower extremity edema persistent Continue to monitor BMP and UOP Encouraged to elevate legs throughout day Avoid nephrotoxins when possible. Fluid restriction in place. Patient seen and examined, agree with above. On Lasix and Albumin, add Metolazone. (2) Prosthetic valve endocarditis ICD Codes: T82.6XXA - Infection and inflammatory reaction due to cardiac valve prosthesis, initial encounter Status: Acute Plan: septic endocarditis with strep viridans IV drug use, pulmonary emboli as well. Continues antibiotics per ID continue renal dosing antibiotics. (3) Peripheral arterial occlusive disease ICD Codes: I77.9 - Disorder of arteries and arterioles, unspecified Plan: seen with vascular, continue medical management Hold contrast studies as possible. (4) Hepatitis C ICD Codes: B19.20 - Unspecified viral hepatitis C without hepatic coma Status: Chronic (Randal Salinas MD) Problem Qualifiers (1) Prosthetic valve endocarditis: Qualified Codes: T82.6XXA - Infection and inflammatory reaction due to cardiac valve prosthesis, initial encounter Deena Oh Oct 03, 2017 15:36 Randal Salinas MD Oct 03, 2017 18:41
[2017-10-03] MEDS: WARFARIN SOD 1 MG TAB PO SCH (16:09)
[2017-10-03] MEDS: DAPTOmycin INJ 500 MG in SODIUM CHLORIDE 0.9% INJ 100 ML IV SCH (21:21)
[2017-10-03] MEDS: MORPHINE SULFATE 15 MG CONTROLLED RELEASE TAB PO SCH (21:22)
[2017-10-03] MEDS: METOLAZONE 2.5 MG TAB PO SCH (21:22)
[2017-10-04] VITALS (14 sets, daily range): BP systolic 92–101; BP diastolic 52–68; PULSE 93–113; RESP 20–22; TEMP 97–99.3; O2SAT 91–100
[2017-10-04] MEDS: SODIUM CHLORIDE 0.9% FLUSH 10 ML FLUSH IV FLUSH PRN ×4 (01:01→23:50)
[2017-10-04] MEDS: HYDROmorphone HCL PF 2 MG/ML VIAL IV PUSH PRN ×6 (01:01→23:50)
[2017-10-04] MEDS: AMPICILLIN INJ 2,000 MG in SODIUM CHLORIDE 0.9% INJ 100 ML IV SCH ×4 (02:10→20:22)
--- NOTE | 2017-10-04 02:44 | HHI.PR ---
Subjective Remarks NOT SEEN Objective Vitals Vital Signs Date Time Temp Pulse Resp B/P (MAP) Pulse Ox O2 Delivery O2 Flow Rate FiO2 10/04/17 00:35 111 10/04/17 00:00 99.0 113 22 93/61 (72) 91 10/04/17 00:00 Nasal Cannula 2.00 10/03/17 21:31 107 20 94/58 (70) 92 10/03/17 21:22 Nasal Cannula 2.00 10/03/17 20:11 110 10/03/17 18:08 Nasal Cannula 2.00 10/03/17 16:10 97.6 102 18 96/72 (80) 92 10/03/17 16:00 98 10/03/17 12:59 Room Air 10/03/17 12:00 98.0 113 20 102/57 (72) 97 10/03/17 12:00 103 10/03/17 09:20 Room Air 10/03/17 08:00 102 10/03/17 08:00 98.3 107 20 107/57 (74) 90 10/03/17 04:05 108 10/03/17 04:00 Room Air 10/03/17 04:00 97.8 107 20 112/55 (74) 100 10/03/17 03:04 19 I/O 10/03/17 10/03/17 10/03/17 10/04/17 10/04/17 10/04/17 07:00 15:00 23:00 07:00 15:00 23:00 Intake Total 200 ml 600 ml Output Total 1700 ml 600 ml Balance -1500 ml 0 ml Intake Oral 100 ml 600 ml IV Total 100 ml Output Urine Total 1700 ml 600 ml # Bowel Movements 1 1 Result Diagram: 10/03/17 0600 10/03/17 0600 Imaging Last Impressions Chest X-Ray 10/01/17 0000 Signed Impressions: Service Date/Time: Sunday, October 01, 2017 13:53 - CONCLUSION: No significant change in the right lower lobe infiltrate. Reuben Reece MD Catheter Placement X-Ray 09/24/17 0000 Signed Impressions: Service Date/Time: Sunday, September 24, 2017 11:16 - CONCLUSION: Uncomplicated venous catheter change as above. Luis Leija MD Head CT 09/08/17 0000 Signed Impressions: Service Date/Time: Friday, September 08, 2017 10:22 - CONCLUSION: 1. Focal area of decreased density involving the right parietal lobe. As a new finding from the prior exam. This could relate to a small infarct. MRI of the brain with gadolinium suggested to further evaluate. 2. Small lacunar infarction involving the left centrum semiovale. Ananth Ponce Jr., MD CT Angiography 09/08/17 0000 Signed Impressions: Service Date/Time: Friday, September 08, 2017 10:28 - CONCLUSION: There extensive pulmonary emboli bilaterally. There is near complete cut off of the right lower lobe pulmonary artery. Prominent filling defects on the left as well. These findings were relayed to Dr. Dominguez immediately at the completion of the study. Scattered pulmonary infiltrates, small pleural effusion and extensive mediastinal lymphadenopathy as described above. Karsten Crowder MD Brain MRI 09/08/17 0000 Signed Impressions: Service Date/Time: Friday, September 08, 2017 18:04 - CONCLUSION: Deterioration in the appearance of the scan. At least 3 focal areas of abnormal contrast enhancement are present scattered to in both hemispheres. Given the history this most likely represents developing areas cerebritis. Exam is compromised by an uncooperative patient and motion artifact. These 2 factors make detection of other abnormalities such as cortical cephalitis and meningitis difficult to exclude. Cannot exclude hemorrhagic lesions as well. There is no mass effect evident. Geremias Mauricio MD Chest CT 09/03/17 0000 Signed Impressions: Service Date/Time: Sunday, September 03, 2017 12:41 - CONCLUSION: 1. There are at least 5 pulmonary nodules present bilaterally with the largest measuring 19 mm. None demonstrate cavitation but it is possible that these represent septic emboli. Suggest followup to assess for change. 2. Splenomegaly with subtle wedge-shaped areas of low-density in the mid spleen which could represent infarcts. 3. Mild cardiomegaly in this patient post aortic valve replacement. Low density of the cardiac blood pool suggests anemia. Adalid Galo MD Aorta w/Runoff CTA 09/02/17 0000 Signed Impressions: Service Date/Time: Saturday, September 02, 2017 12:47 - CONCLUSION: Left renal cortical infarction. 5-6 cm length total occlusion of the left superficial femoral artery in the proximal thigh. Nodular parenchymal opacities in the lung bases bilaterally See above discussion. Adalid Dallas MD Renal Ultrasound 09/01/17 0000 Signed Impressions: Service Date/Time: Friday, September 01, 2017 10:53 - CONCLUSION: 1. No evidence of hydronephrosis. 2. Thickening of the urinary bladder wall a 1.1 cm. 3. Prominent splenomegaly. Baldemar Pineda MD Breast Ultrasound 09/01/17 0000 Signed Impressions: Service Date/Time: Friday, September 01, 2017 10:48 - CONCLUSION: Negative targeted right breast ultrasound examination. Adalid Haney MD Lower Extremity Ultrasound 08/31/17 0000 Signed Impressions: Service Date/Time: Thursday, August 31, 2017 21:22 - CONCLUSION: 1. No sonographic evidence for lower extremity DVT. 2. Incidental note of bilateral inguinal adenopathy with the largest on the right measuring 3.3 cm and the largest on the left measuring 2.6 cm. This finding is nonspecific but is typically reactive in etiology. Luis Leija MD Objective Remarks AAOx3 NAD Clear lungs BL S1S2 4/6 systolic ejection murmur +3 BL lower extremity edema. Erythema improved, left foot very tender to palpation. . Dark discoloration resolved. pulses not palpable due to edema. Good capillary refill. Date of Insertion: Sep 24, 2017 Line: Central Venous Catheter Side: Right Location: Internal, Jugular A/P Problem List: (1) Prosthetic valve endocarditis ICD Code: T82.6XXA - Infection and inflammatory reaction due to cardiac valve prosthesis, initial encounter Status: Acute (2) Bacteremia ICD Code: R78.81 - Bacteremia (3) Septic pulmonary embolism ICD Code: I26.90 - Septic pulmonary embolism without acute cor pulmonale Status: Acute (4) IVDU (intravenous drug user) ICD Code: F19.90 - Other psychoactive substance use, unspecified, uncomplicated (5) Anemia ICD Code: D64.9 - Anemia, unspecified Status: Chronic (6) DUONG (acute kidney injury) ICD Code: N17.9 - Acute kidney failure, unspecified (7) Cellulitis of left lower extremity ICD Code: L03.116 - Cellulitis of left lower limb (8) Purple toe syndrome ICD Code: I75.029 - Atheroembolism of unspecified lower extremity (9) Pleuritic chest pain ICD Code: R07.81 - Pleurodynia Assessment and Plan (1) Prosthetic valve endocarditis Plan: Continue antibiotics as per ID. The patient was initially on IV ampicillin. On 09/24 ID started Rocephin for pulmonary coverage since chest x-ray showed a developing infiltrate. On 09/25 palliative care consulted by hematology. As per hematology documentation the patient requested to talk to palliative care to see if she is a hospice candidate. Discussed with palliative care who states that the patient's goals are aggressive and she wants to get better. The patient definitely is a hospice candidate, however her goals are not hospice appropriate. Patient was started on Oramorph SR 30 mg p.o. twice a day for pain control. Heparin drip until the patient's INR reaches 2.5. Goal INR should be 2.5-3.5 since the patient has an aortic prosthetic valve. Will reconsult vascular surgery. Pedal pulses present by Doppler (2) Bacteremia Plan: Blood cultures obtained on 08/31 growing strep viridans. Subsequent repeat blood cultures negative. 09/24 sp Exchange of Right IJ central line. Continue antibiotics as per ID recommendations. (3) Septic pulmonary embolism Plan: As observed on a CT angiography of the chest obtained on 09/08/17. echocardiogram on 09/08 showed an estimated EF of 50-55%. ++severe tricuspid regurgitation with prosthesis in place. ++2 x 4 cm mobile vegetation was seen on the valve. The right atrium and right ventricle were normal in size and function Hematology following. Management of Coumadin as per hematology recommendations. Goal INR 2.5-3.5 given the presence of a prosthetic aortic valve. (4) IVDU (intravenous drug user) Plan: Counseled on drug cessation. (5) Anemia Plan: Likely secondary to inflammation/infection. No evidence of bleeding or hemolysis. Monitor hemoglobin and transfuse as needed. (6) UDONG (acute kidney injury) Plan: Nephrology consulted. Possible ATN from vancomycin toxicity or infection. Urine eosinophils were ordered and negative. Diuretics managed by nephrology. Initially on Lasix 20 mg IV twice daily along with albumin. Creatinine Worsening on 09/24 for 1.57-1.62. Later Lasix dose was increased to 40 mg IV twice daily and metolazone added to the regimen. Creatinine then started trending down to 1.34 on 09/28. 10/03 creatinine stable at 1.18. Management as per nephrology. Continue to monitor BUN and creatinine, avoid nephrotoxins, history I's and O's. (7) Cellulitis of left lower extremity Plan: Continue IV antibiotics as per ID. Cellulitis seems to be improving. (8) Purple toe syndrome Plan: Patient has a blue/purple discoloration of the left toes. Vascular surgery consulted. Recommended medical management. Ankle-brachial indices are decreased and below normal. The toe brachial indices could not be obtained given the pulses could not be obtained in the first digits. Patient initially started on IV heparin. Goal INR 2.5-3.5. 09/05 INR therapeutic, discontinue IV heparin. Monitor PT/INR daily. Pharmacy helping with dosing and monitoring. Patient also with severe excruciating pain secondary to possible some ischemia. Increase dose of morphine sulfate from 30 mg p.o. every 12 hours to 45 mg p.o. every 12 hours. (9) Pleuritic chest pain Improving control of pleuritic chest pain. Repeat chest x-ray obtained on did not show any significant change in the right lower lobe infiltrate. Patient will need a follow-up chest x-ray in a couple days. Increase morphine sulfate as stated above. Discharge Planning Patient with prosthetic valve endocarditis, bacteremia, septic pulmonary embolism and acute kidney injury. Patient still edematous, good urine output. Will need ID clearance prior to discharge. Problem Qualifiers (1) Prosthetic valve endocarditis: Qualified Codes: T82.6XXA - Infection and inflammatory reaction due to cardiac valve prosthesis, initial encounter (2) Anemia: Qualified Codes: D63.8 - Anemia in other chronic diseases classified elsewhere (3) Purple toe syndrome: Qualified Codes: I75.022 - Atheroembolism of left lower extremity Roby Whitaker MD Oct 04, 2017 02:44
[2017-10-04] MEDS: ALBUMIN 25% INJ 100 ML IV SCH (05:43)
[2017-10-04 06:15] LABS: HEMATOCRIT 23.1 % (35.0-46.0); HEMOGLOBIN 7.2 GM/DL (11.6-15.3); MEAN CELL VOLUME 75.2 FL (80.0-100.0); MEAN CORPUSCULAR HEMOGLOBIN 23.4 PG (27.0-34.0); MEAN CORPUSCULAR HGB CONC 31.2 % (32.0-36.0); MEAN PLATELET VOLUME 8.7 FL (7.0-11.0); PLATELET COUNT 102 TH/MM3 (150-450); RED BLOOD COUNT 3.08 MIL/MM3 (4.00-5.30); RED CELL DISTRIBUTION WIDTH 23.2 % (11.6-17.2); WHITE BLOOD COUNT 12.9 TH/MM3 (4.0-11.0)
[2017-10-04 06:26] LABS: INTERNATIONAL NORMALIZED RATIO 1.8 RATIO; PROTHROMBIN TIME - PATIENT 18.1 SEC (9.8-11.6)
[2017-10-04 06:46] LABS: ALBUMIN 3.7 GM/DL (3.4-5.0); ALT (GPT) 12 U/L (10-53); AST (GOT) 23 U/L (15-37); BICARBONATE 32.1 MEQ/L (21.0-32.0); BLOOD UREA NITROGEN 19 MG/DL (7-18); CALCIUM 8.6 MG/DL (8.5-10.1); CHLORIDE 91 MEQ/L (98-107); GLOMERULAR FILTRATION RATE 51 ML/MIN (>89); GLUCOSE,RANDOM 103 MG/DL (74-106); SODIUM (NA) 133 MEQ/L (136-145)
[2017-10-04 06:47] LABS: ALKALINE PHOSPHATASE 80 U/L (45-117); TOTAL BILIRUBIN ADULT 1.1 MG/DL (0.2-1.0); TOTAL PROTEIN 7.4 GM/DL (6.4-8.2)
[2017-10-04] MEDS: METOLAZONE 2.5 MG TAB PO SCH ×2 (08:41→20:21)
[2017-10-04] MEDS: FUROSEMIDE 20 MG/2 ML VIAL IV PUSH SCH ×2 (08:42→17:07)
[2017-10-04] MEDS: POTASSIUM CHLORIDE 10 MEQ CONTROLLED RELEASE TAB PO SCH ×2 (08:42→20:20)
[2017-10-04] MEDS: DOCUSATE SODIUM 50 MG/SENNA 8.6 MG TAB PO SCH ×2 (08:43→20:21)
[2017-10-04] MEDS: SODIUM CHLORIDE 0.9% FLUSH 10 ML FLUSH IV FLUSH SCH ×2 (08:43→19:46)
[2017-10-04] MEDS: MORPHINE SULFATE 15 MG CONTROLLED RELEASE TAB PO SCH ×2 (08:44→20:21)
[2017-10-04 09:54] LABS: INTERNATIONAL NORMALIZED RATIO 1.7 RATIO; PROTHROMBIN TIME - PATIENT 17.1 SEC (9.8-11.6)
--- NOTE | 2017-10-04 11:01 | HHI.NPPN ---
Subjective General Problems: Anemia Renal Failure: Acute History of Present Illness This is a 37-year-old female with past medical history of IV drug abuse, history of hepatitis C, narcotic dependency, came to the hospital with complaint of shortness of breath and swelling. Nephrology called to see the patient because of elevated BUN and creatinine. The patient has creatinine of 4.5 on admission which improved and it was staying in the range of 0.6-0.8 until 6 days ago, then it started going up again and now it is 1.7. The patient has increased swelling of the legs and the patient was diagnosed with endocarditis and she has blood culture positive for Strep viridans. Patient has been following with the ID and she was getting furosemide, which was stopped today this morning because of increased creatinine and she was on vancomycin and rifampicin. The last dose of vancomycin seems to be given possibly on 09/09/2017 or even later, but her level was high and the highest level we have was 25.8, which was on 09/09/2017 but on 09/15/2017 it was 23.9. The patient has been actively using IV drugs before she came to the hospital and noticed to have more swelling in her legs. She is complaining of generalized body pain. There is no nausea, vomiting. Denies any diarrhea. Her appetite is normal. Additional Remarks Continue with bilateral lower extremity edema. Sitting on side of bed comfortably. (Deena Oh) Review of Systems General Constitutional: Fatigue (Deena Oh) Respiratory Lungs: SOB Respiratory Remarks improving (Deena Oh) Cardiovascular Cardiac: Edema, FOREMAN Cardiac Remarks Denies CP (Deena Oh) Gastrointestinal GI Remarks denies abdominal pain (Deena Oh) Objective Data Data 10/04/17 10/05/17 19:00 07:00 # Sanitary Pads 3 Pads Vital Signs Date Time Temp Pulse Resp B/P (MAP) Pulse Ox O2 Delivery O2 Flow Rate FiO2 10/04/17 08:00 97 10/04/17 08:00 97.5 97 20 92/58 (69) 94 10/04/17 07:39 Nasal Cannula 3.00 21 10/04/17 04:20 Nasal Cannula 2.00 10/04/17 04:20 99.3 106 20 101/52 (68) 94 10/04/17 04:06 98 10/04/17 00:35 111 10/04/17 00:00 99.0 113 22 93/61 (72) 91 10/04/17 00:00 Nasal Cannula 2.00 10/03/17 21:31 107 20 94/58 (70) 92 10/03/17 21:22 Nasal Cannula 2.00 10/03/17 20:11 110 10/03/17 18:08 Nasal Cannula 2.00 10/03/17 16:10 97.6 102 18 96/72 (80) 92 10/03/17 16:00 98 10/03/17 12:59 Room Air 10/03/17 12:00 98.0 113 20 102/57 (72) 97 10/03/17 12:00 103 (Deena Oh) -: 10/04/17 0545 10/04/17 0545 Physical Exam General Appearance: No Acute Distress, Anxious (Deena Oh) Eyes Eye Exam: Pupils Equal (Deena Oh) Throat Throat Exam: Oral Mucosa [place] & Moist (Deena Oh) Neck Neck Exam: Neck Supple (Deena Oh) Pulmonary Resp Exam: Clear Bilaterally (Deena Oh) Cardiology CV Exam: Regular, Normal Sinus Rhythm (Deena Oh) Gastrointestinal/Abdomen GI Exam: Soft, Non-Tender (Deena Oh) Integumentary Skin Exam: Dry, Intact (Deena Oh) Extremeties Extremities Exam: Pitting Edema (Deena Oh) Neurologic Neuro Exam: Alert, Awake, Oriented (Deena Oh) Psychiatric Psych Exam: Appropriate Responses (Deena Oh) Assessment/Plan Discussed Condition With: Patient Assessment Summary: DUONG/Acute Renal Failure Problem List: (1) Acute kidney injury ICD Codes: N17.9 - Acute kidney failure, unspecified Status: Acute Plan: DUONG likely due to vancomycin toxicity, post-infectious GN is unlikely. Possibility of ATN or pre renal. Urine eosinophils negative, complements wnl Creatinine stable Good UOP Plan Hypokalemia replacement given Continue Lasix 40 mg IV BID Albumin discontinued with albumin level of 3.7 Continue to monitor BMP and UOP Encouraged to elevate legs throughout day Avoid nephrotoxins when possible. Fluid restriction in place. (2) Prosthetic valve endocarditis ICD Codes: T82.6XXA - Infection and inflammatory reaction due to cardiac valve prosthesis, initial encounter Status: Acute Plan: septic endocarditis with strep viridans IV drug use, pulmonary emboli as well. Continues antibiotics per ID continue renal dosing antibiotics. (3) Peripheral arterial occlusive disease ICD Codes: I77.9 - Disorder of arteries and arterioles, unspecified Plan: seen with vascular, continue medical management Hold contrast studies as possible. (4) Hepatitis C ICD Codes: B19.20 - Unspecified viral hepatitis C without hepatic coma Status: Chronic (Deena Oh) Problem List: (1) Acute kidney injury ICD Codes: N17.9 - Acute kidney failure, unspecified Status: Acute Plan: DUONG likely due to vancomycin toxicity, post-infectious GN is unlikely. Possibility of ATN or pre renal. Urine eosinophils negative, complements wnl Creatinine stable Good UOP Plan Hypokalemia replacement given Continue Lasix 40 mg IV BID Albumin discontinued with albumin level of 3.7 Continue to monitor BMP and UOP Encouraged to elevate legs throughout day Avoid nephrotoxins when possible. Fluid restriction in place. Patient seen and examined, agree with above. Continue Metolazone and Lasix. (2) Prosthetic valve endocarditis ICD Codes: T82.6XXA - Infection and inflammatory reaction due to cardiac valve prosthesis, initial encounter Status: Acute Plan: septic endocarditis with strep viridans IV drug use, pulmonary emboli as well. Continues antibiotics per ID continue renal dosing antibiotics. (3) Peripheral arterial occlusive disease ICD Codes: I77.9 - Disorder of arteries and arterioles, unspecified Plan: seen with vascular, continue medical management Hold contrast studies as possible. (4) Hepatitis C ICD Codes: B19.20 - Unspecified viral hepatitis C without hepatic coma Status: Chronic (Randal Salinas MD) Problem Qualifiers (1) Prosthetic valve endocarditis: Qualified Codes: T82.6XXA - Infection and inflammatory reaction due to cardiac valve prosthesis, initial encounter Deena Oh Oct 04, 2017 11:00 Randal Salinas MD Oct 04, 2017 18:00
--- NOTE | 2017-10-04 13:27 | HHI.PR ---
Subjective Remarks Follow-up endocarditis. Patient is emotional stating that she is not getting any better. She wants to talk to hospice again. Patient indicated on narcotic usage that I do not intend to prescribe narcotics after discharge and that we need to wean her off Objective Vitals Vital Signs Date Time Temp Pulse Resp B/P (MAP) Pulse Ox O2 Delivery O2 Flow Rate FiO2 10/04/17 11:53 98 10/04/17 10:00 93 Nasal Cannula 3.00 10/04/17 08:00 97 10/04/17 08:00 97.5 97 20 92/58 (69) 94 10/04/17 07:39 Nasal Cannula 3.00 21 10/04/17 04:20 Nasal Cannula 2.00 10/04/17 04:20 99.3 106 20 101/52 (68) 94 10/04/17 04:06 98 10/04/17 00:35 111 10/04/17 00:00 99.0 113 22 93/61 (72) 91 10/04/17 00:00 Nasal Cannula 2.00 10/03/17 21:31 107 20 94/58 (70) 92 10/03/17 21:22 Nasal Cannula 2.00 10/03/17 20:11 110 10/03/17 18:08 Nasal Cannula 2.00 10/03/17 16:10 97.6 102 18 96/72 (80) 92 10/03/17 16:00 98 I/O 10/03/17 10/03/17 10/03/17 10/04/17 10/04/17 10/04/17 07:00 15:00 23:00 07:00 15:00 23:00 Intake Total 200 ml 800 ml 710 ml Output Total 1700 ml 600 ml 1400 ml Balance -1500 ml 200 ml -690 ml Intake Oral 100 ml 600 ml 510 ml IV Total 100 ml 200 ml 200 ml Output Urine Total 1700 ml 600 ml 1400 ml # Bowel Movements 1 1 1 # Sanitary Pads 3 Pads Result Diagram: 10/04/17 0545 10/04/17 0545 Imaging Last Impressions Chest X-Ray 10/01/17 0000 Signed Impressions: Service Date/Time: Sunday, October 01, 2017 13:53 - CONCLUSION: No significant change in the right lower lobe infiltrate. Reuben Reece MD Catheter Placement X-Ray 09/24/17 0000 Signed Impressions: Service Date/Time: Sunday, September 24, 2017 11:16 - CONCLUSION: Uncomplicated venous catheter change as above. Luis Leija MD Head CT 09/08/17 0000 Signed Impressions: Service Date/Time: Friday, September 08, 2017 10:22 - CONCLUSION: 1. Focal area of decreased density involving the right parietal lobe. As a new finding from the prior exam. This could relate to a small infarct. MRI of the brain with gadolinium suggested to further evaluate. 2. Small lacunar infarction involving the left centrum semiovale. Ananth Ponce Jr., MD CT Angiography 09/08/17 0000 Signed Impressions: Service Date/Time: Friday, September 08, 2017 10:28 - CONCLUSION: There extensive pulmonary emboli bilaterally. There is near complete cut off of the right lower lobe pulmonary artery. Prominent filling defects on the left as well. These findings were relayed to Dr. Dominguez immediately at the completion of the study. Scattered pulmonary infiltrates, small pleural effusion and extensive mediastinal lymphadenopathy as described above. Karsten Crowder MD Brain MRI 09/08/17 0000 Signed Impressions: Service Date/Time: Friday, September 08, 2017 18:04 - CONCLUSION: Deterioration in the appearance of the scan. At least 3 focal areas of abnormal contrast enhancement are present scattered to in both hemispheres. Given the history this most likely represents developing areas cerebritis. Exam is compromised by an uncooperative patient and motion artifact. These 2 factors make detection of other abnormalities such as cortical cephalitis and meningitis difficult to exclude. Cannot exclude hemorrhagic lesions as well. There is no mass effect evident. Geremias Mauricio MD Chest CT 09/03/17 0000 Signed Impressions: Service Date/Time: Sunday, September 03, 2017 12:41 - CONCLUSION: 1. There are at least 5 pulmonary nodules present bilaterally with the largest measuring 19 mm. None demonstrate cavitation but it is possible that these represent septic emboli. Suggest followup to assess for change. 2. Splenomegaly with subtle wedge-shaped areas of low-density in the mid spleen which could represent infarcts. 3. Mild cardiomegaly in this patient post aortic valve replacement. Low density of the cardiac blood pool suggests anemia. Adalid Galo MD Aorta w/Runoff CTA 09/02/17 0000 Signed Impressions: Service Date/Time: Saturday, September 02, 2017 12:47 - CONCLUSION: Left renal cortical infarction. 5-6 cm length total occlusion of the left superficial femoral artery in the proximal thigh. Nodular parenchymal opacities in the lung bases bilaterally See above discussion. Adalid Dallas MD Renal Ultrasound 09/01/17 0000 Signed Impressions: Service Date/Time: Friday, September 01, 2017 10:53 - CONCLUSION: 1. No evidence of hydronephrosis. 2. Thickening of the urinary bladder wall a 1.1 cm. 3. Prominent splenomegaly. Baldemar Pineda MD Breast Ultrasound 09/01/17 0000 Signed Impressions: Service Date/Time: Friday, September 01, 2017 10:48 - CONCLUSION: Negative targeted right breast ultrasound examination. Adalid Haney MD Lower Extremity Ultrasound 08/31/17 0000 Signed Impressions: Service Date/Time: Thursday, August 31, 2017 21:22 - CONCLUSION: 1. No sonographic evidence for lower extremity DVT. 2. Incidental note of bilateral inguinal adenopathy with the largest on the right measuring 3.3 cm and the largest on the left measuring 2.6 cm. This finding is nonspecific but is typically reactive in etiology. Luis Leija MD Objective Remarks AAOx3 NAD Clear lungs BL S1S2 4/6 systolic ejection murmur +3 BL lower extremity edema. Erythema improved, left foot very tender to palpation. . Dark discoloration left toes you 3rd and 5th. pulses not palpable due to edema. Good capillary refill. Procedures Exchange of right IJ central line Date of Insertion: Sep 24, 2017 Line: Central Venous Catheter Side: Right Location: Internal, Jugular A/P Problem List: (1) Prosthetic valve endocarditis ICD Code: T82.6XXA - Infection and inflammatory reaction due to cardiac valve prosthesis, initial encounter Status: Acute (2) Bacteremia ICD Code: R78.81 - Bacteremia (3) Septic pulmonary embolism ICD Code: I26.90 - Septic pulmonary embolism without acute cor pulmonale Status: Acute (4) IVDU (intravenous drug user) ICD Code: F19.90 - Other psychoactive substance use, unspecified, uncomplicated (5) Anemia ICD Code: D64.9 - Anemia, unspecified Status: Chronic (6) DUONG (acute kidney injury) ICD Code: N17.9 - Acute kidney failure, unspecified (7) Cellulitis of left lower extremity ICD Code: L03.116 - Cellulitis of left lower limb (8) Purple toe syndrome ICD Code: I75.029 - Atheroembolism of unspecified lower extremity (9) Pleuritic chest pain ICD Code: R07.81 - Pleurodynia Assessment and Plan (1) Prosthetic valve endocarditis Continue IV ampicillin and daptomycin until October 12 per CTS, patient would not benefit from further cardiac surgery. Patient feels he is not getting any better and wants to talk to hospice again. (2) Bacteremia Plan: Blood cultures obtained on 08/31 growing strep viridans. Subsequent repeat blood cultures negative. 09/24 sp Exchange of Right IJ central line. Continue antibiotics as per ID recommendations. (3) Septic pulmonary embolism Plan: As observed on a CT angiography of the chest obtained on 09/08/17. echocardiogram on 09/08 showed an estimated EF of 50-55%. ++severe tricuspid regurgitation with prosthesis in place. ++2 x 4 cm mobile vegetation was seen on the valve. The right atrium and right ventricle were normal in size and function Hematology following. Goal INR 2.5-3.5 given the presence of a prosthetic aortic valve. Status post heparin bridging (4) IVDU (intravenous drug user) Plan: Counseled on drug cessation. (5) Anemia Plan: Likely secondary to inflammation/infection. No evidence of bleeding or hemolysis. Monitor hemoglobin and transfuse as needed. (6) DUONG (acute kidney injury) Plan: Nephrology consulted. Possible ATN from vancomycin toxicity or infection. Urine eosinophils were ordered and negative. Diuretics managed by nephrology. Initially on Lasix 20 mg IV twice daily along with albumin. Creatinine Worsening on 09/24 for 1.57-1.62. Later Lasix dose was increased to 40 mg IV twice daily and metolazone added to the regimen. Creatinine then started trending down to 1.34 on 09/28. 10/03 creatinine stable at 1.18. Management as per nephrology. Continue to monitor BUN and creatinine, avoid nephrotoxins, history I's and O's. Hemodynamics improving (7) Cellulitis of left lower extremity Plan: Continue IV antibiotics as per ID. Cellulitis seems to be improving. (8) Purple toe syndrome Vascular surgery recommended conservative management continue anticoagulation, weightbearing as tolerated and repeat PRANAV in 2-3 weeks Patient also with severe excruciating pain secondary to possible some ischemia. Increase dose of morphine sulfate from 30 mg p.o. every 12 hours to 45 mg p.o. every 12 hours. Counseled regarding narcotic usage (9) Pleuritic chest pain Improving control of pleuritic chest pain. Repeat chest x-ray obtained on did not show any significant change in the right lower lobe infiltrate. Discharge Planning Patient with prosthetic valve endocarditis, bacteremia, septic pulmonary embolism and acute kidney injury. Patient still edematous, good urine output. Will need ID clearance prior to discharge. Problem Qualifiers (1) Prosthetic valve endocarditis: Qualified Codes: T82.6XXA - Infection and inflammatory reaction due to cardiac valve prosthesis, initial encounter (2) Anemia: Qualified Codes: D63.8 - Anemia in other chronic diseases classified elsewhere (3) Purple toe syndrome: Qualified Codes: I75.022 - Atheroembolism of left lower extremity Roby Whitaker MD Oct 04, 2017 13:27
[2017-10-04] MEDS: WARFARIN SOD 1 MG TAB PO SCH (15:24)
[2017-10-04] MEDS: DAPTOmycin INJ 500 MG in SODIUM CHLORIDE 0.9% INJ 100 ML IV SCH (19:46)
[2017-10-05] VITALS (15 sets, daily range): BP systolic 91–106; BP diastolic 51–69; PULSE 87–106; RESP 20–22; TEMP 97.3–98.9; O2SAT 93–98
[2017-10-05] MEDS: AMPICILLIN INJ 2,000 MG in SODIUM CHLORIDE 0.9% INJ 100 ML IV SCH ×4 (01:38→20:00)
[2017-10-05] MEDS: SODIUM CHLORIDE 0.9% FLUSH 10 ML FLUSH IV FLUSH PRN (04:09)
[2017-10-05] MEDS: HYDROmorphone HCL PF 2 MG/ML VIAL IV PUSH PRN ×4 (04:09→21:54)
[2017-10-05 04:53] LABS: AUTOMATED NEUTROPHIL # 10.7 TH/MM3 (1.8-7.7); BASOPHIL # 0.1 TH/MM3 (0-0.2); BASOPHIL % 0.7 % (0.0-2.0); EOSINOPHIL # 0.2 TH/MM3 (0-0.4); EOSINOPHIL % 1.4 % (0.0-4.0); HEMOGLOBIN 7.3 GM/DL (11.6-15.3); LYMPH % 11.5 % (9.0-44.0); LYMPHOCYTE # 1.5 TH/MM3 (1.0-4.8); MEAN CELL VOLUME 75.2 FL (80.0-100.0); MEAN CORPUSCULAR HEMOGLOBIN 23.7 PG (27.0-34.0); MEAN CORPUSCULAR HGB CONC 31.5 % (32.0-36.0); MEAN PLATELET VOLUME 9.1 FL (7.0-11.0); MONOCYTE # 0.8 TH/MM3 (0-0.9); NEUT % 80.4 % (16.0-70.0); PLATELET COUNT 112 TH/MM3 (150-450); RED BLOOD COUNT 3.06 MIL/MM3 (4.00-5.30); RED CELL DISTRIBUTION WIDTH 22.9 % (11.6-17.2); WHITE BLOOD COUNT 13.3 TH/MM3 (4.0-11.0)
[2017-10-05 05:06] LABS: INTERNATIONAL NORMALIZED RATIO 1.5 RATIO; PROTHROMBIN TIME - PATIENT 15.5 SEC (9.8-11.6)
[2017-10-05 05:25] LABS: BICARBONATE 34.3 MEQ/L (21.0-32.0); CALCIUM 8.2 MG/DL (8.5-10.1); CREATININE 1.13 MG/DL (0.50-1.00); MAGNESIUM 1.4 MG/DL (1.5-2.5)
[2017-10-05] MEDS ORDERED: POTASSIUM CHLORIDE 20 MEQ CONTROLLED RELEASE TAB PO ONE (06:15)
[2017-10-05] MEDS: MAGNESIUM SULFATE 1 GM PREMIX 100 ML IV SCH ×2 (06:49→08:57)
[2017-10-05] MEDS: POTASSIUM CHLORIDE 10 MEQ CONTROLLED RELEASE TAB PO SCH ×2 (08:55→20:16)
[2017-10-05] MEDS: SODIUM CHLORIDE 0.9% FLUSH 10 ML FLUSH IV FLUSH SCH ×2 (08:56→20:16)
[2017-10-05] MEDS: FUROSEMIDE 20 MG/2 ML VIAL IV PUSH SCH ×2 (08:56→18:23)
[2017-10-05] MEDS: DOCUSATE SODIUM 50 MG/SENNA 8.6 MG TAB PO SCH ×2 (09:00→20:17)
[2017-10-05] MEDS: METOLAZONE 2.5 MG TAB PO SCH ×2 (09:04→20:17)
[2017-10-05] MEDS ORDERED: SODIUM CHLOR 0.9% 250 ML INJ 250 ML IV ONE ×2 (09:15)
[2017-10-05] MEDS: POTASSIUM CHLOR 20 MEQ PREMIX 100 ML IV SCH ×2 (09:36→09:54)
[2017-10-05] MEDS: MORPHINE SULFATE 15 MG CONTROLLED RELEASE TAB PO SCH ×2 (10:00→20:17)
--- NOTE | 2017-10-05 11:08 | HHI.NPPN ---
Subjective General Problems: Anemia Renal Failure: Acute History of Present Illness This is a 37-year-old female with past medical history of IV drug abuse, history of hepatitis C, narcotic dependency, came to the hospital with complaint of shortness of breath and swelling. Nephrology called to see the patient because of elevated BUN and creatinine. The patient has creatinine of 4.5 on admission which improved and it was staying in the range of 0.6-0.8 until 6 days ago, then it started going up again and now it is 1.7. The patient has increased swelling of the legs and the patient was diagnosed with endocarditis and she has blood culture positive for Strep viridans. Patient has been following with the ID and she was getting furosemide, which was stopped today this morning because of increased creatinine and she was on vancomycin and rifampicin. The last dose of vancomycin seems to be given possibly on 09/09/2017 or even later, but her level was high and the highest level we have was 25.8, which was on 09/09/2017 but on 09/15/2017 it was 23.9. The patient has been actively using IV drugs before she came to the hospital and noticed to have more swelling in her legs. She is complaining of generalized body pain. There is no nausea, vomiting. Denies any diarrhea. Her appetite is normal. Additional Remarks Mild SOB. Continues with mild SOB. Some improvement noted in lower extremity edema. (Deena Oh) Review of Systems General Constitutional: Fatigue (Deena Oh) Respiratory Lungs: SOB Respiratory Remarks improving (Deena Oh) Cardiovascular Cardiac: Edema, FOREMAN Cardiac Remarks Denies CP (Deena Oh) Gastrointestinal GI Remarks denies abdominal pain (Deena Oh) Objective Data Data 10/05/17 10/06/17 19:00 07:00 # Sanitary Pads 3 Pads Vital Signs Date Time Temp Pulse Resp B/P (MAP) Pulse Ox O2 Delivery O2 Flow Rate FiO2 10/05/17 09:12 98 Nasal Cannula 3.00 10/05/17 08:00 102 10/05/17 08:00 97.9 106 22 98/69 (79) 93 10/05/17 07:37 Nasal Cannula 2.00 21 Humidified 10/05/17 04:00 98.9 104 22 99/51 (67) 98 10/05/17 04:00 Nasal Cannula 2.00 Humidified 10/05/17 03:40 99 10/04/17 23:55 99.0 101 20 95/52 (66) 100 10/04/17 23:55 Nasal Cannula 2.00 Humidified 10/04/17 23:45 99 10/04/17 19:53 93 Nasal Cannula 3.00 10/04/17 19:45 Nasal Cannula 2.00 10/04/17 19:45 97.2 103 22 98/55 (69) 95 10/04/17 19:42 105 10/04/17 16:00 108 10/04/17 16:00 98.3 93 20 94/68 (77) 100 10/04/17 12:00 97.0 96 20 97/60 (72) 98 10/04/17 11:53 98 (Deena Oh) -: 10/05/17 0425 10/05/17 0425 Physical Exam General Appearance: No Acute Distress, Anxious (Deena Oh) Eyes Eye Exam: Pupils Equal (Deena Oh) Throat Throat Exam: Oral Mucosa [place] & Moist (Deena Oh) Neck Neck Exam: Neck Supple (Deena Oh) Pulmonary Resp Exam: Clear Bilaterally (Deena Oh) Cardiology CV Exam: Regular, Normal Sinus Rhythm (Deena Oh) Gastrointestinal/Abdomen GI Exam: Soft, Non-Tender (Deena Oh) Integumentary Skin Exam: Dry, Intact (Deena Oh) Extremeties Extremities Exam: Pitting Edema (Deena Oh) Neurologic Neuro Exam: Alert, Awake, Oriented (Deena Oh) Psychiatric Psych Exam: Appropriate Responses (Deena Oh) Assessment/Plan Discussed Condition With: Patient Assessment Summary: DUONG/Acute Renal Failure Problem List: (1) Acute kidney injury ICD Codes: N17.9 - Acute kidney failure, unspecified Status: Acute Plan: DUONG likely due to vancomycin toxicity, post-infectious GN is unlikely. Possibility of ATN or pre renal. Urine eosinophils negative, complements wnl Creatinine stable Good UOP Plan Hypokalemia at 2.9 replacement given Low magnesium level replacement given Continue Lasix 40 mg IV BID and metolazone for edema Continue to monitor BMP and UOP Encouraged to elevate legs throughout day Avoid nephrotoxins when possible. Fluid restriction in place. (2) Prosthetic valve endocarditis ICD Codes: T82.6XXA - Infection and inflammatory reaction due to cardiac valve prosthesis, initial encounter Status: Acute Plan: septic endocarditis with strep viridans IV drug use, pulmonary emboli as well. Continues antibiotics per ID continue renal dosing antibiotics. (3) Peripheral arterial occlusive disease ICD Codes: I77.9 - Disorder of arteries and arterioles, unspecified Plan: seen with vascular, continue medical management Hold contrast studies as possible. (4) Hepatitis C ICD Codes: B19.20 - Unspecified viral hepatitis C without hepatic coma Status: Chronic (Deena Oh) Problem List: (1) Acute kidney injury ICD Codes: N17.9 - Acute kidney failure, unspecified Status: Acute Plan: DUONG likely due to vancomycin toxicity, post-infectious GN is unlikely. Possibility of ATN or pre renal. Urine eosinophils negative, complements wnl Creatinine stable Good UOP Plan Hypokalemia at 2.9 replacement given Low magnesium level replacement given Continue Lasix 40 mg IV BID and metolazone for edema Continue to monitor BMP and UOP Encouraged to elevate legs throughout day Avoid nephrotoxins when possible. Fluid restriction in place. Patient seen and examined, agree with above. Continue diuretics. (2) Prosthetic valve endocarditis ICD Codes: T82.6XXA - Infection and inflammatory reaction due to cardiac valve prosthesis, initial encounter Status: Acute Plan: septic endocarditis with strep viridans IV drug use, pulmonary emboli as well. Continues antibiotics per ID continue renal dosing antibiotics. (3) Peripheral arterial occlusive disease ICD Codes: I77.9 - Disorder of arteries and arterioles, unspecified Plan: seen with vascular, continue medical management Hold contrast studies as possible. (4) Hepatitis C ICD Codes: B19.20 - Unspecified viral hepatitis C without hepatic coma Status: Chronic (Randal Salinas MD) Problem Qualifiers (1) Prosthetic valve endocarditis: Qualified Codes: T82.6XXA - Infection and inflammatory reaction due to cardiac valve prosthesis, initial encounter Deena Oh Oct 05, 2017 11:08 Randal Salinas MD Oct 05, 2017 18:20
--- NOTE | 2017-10-05 11:09 | HHI.HCPN ---
Reason for visit a. To assist with evaluation and management of symptoms including: chest pain, dyspnea. b. To assist medical decision maker(s) with: better understanding of current medical conditions; weighing benefits/burdens of medical treatment options; making medical treatment decisions. . Subjective/Interval History Patient seen to follow-up on comfort, goals. Hospice was re consulted by medical attending yesterday afternoon. Patient remained stable. Antibiotics to be completed October 12, next week, may discharge at that time pending medical clearance. Afebrile. H&H have been slowly downtrending 7.3/23.0, ordered for 1 unit RBC per medical attending. Hypokalemia 2.8, repletion per medical attending. Long-acting oral morphine uptitrated this week per medical attending based on prn requirements,[15 mg Oramorph every 12 hours---> increased to 30 mg every 12 hours---> 10/03 increased to 45 mg every 12 hours ] patient still with pain to lower extremities. Patient seen in room, no visitors present. She is seated on the side of bed. No apparent distress. She is emotional, tearful at times. Extensive discuss with her. Explore with her conversation with medical attending regarding hospice. She asks me if she agrees to a DNR if she could just go on hospice. Explore what her goals are in terms of comfort measures only, she would not want additional labs or IVs or imaging etc., as hospice would manage her conditions in the home setting but would not provide those additional more invasive diagnostics and treatments. She asks if they would provide oral antibiotics, I did discuss that they can and often do provide oral antibiotics but that the types of infection she has had on her heart from the endocarditis have not been susceptible to oral antibiotic courses. She asks if she did not have them IV would she be terminal, gently explore that with her acute presentation and the 35 day hospital course for acute endocarditis, sepsis, that treatment she has had has likely kept her alive, and that without the aggressive therapies that she has had the infection and sequelae of her endocarditis would have continued likely resulting in her . Advised that oral antibiotics that may be used in an outpatient setting under hospice direction would not likely decrease her infection from endocarditis, they would focus on comfort measures and allowing for a comfortable and natural in the home setting. She is conflicted, she indicates on one hand she just wants to be able to enjoy whatever time she does have left with her family and children, and she is very tired of being in the hospital. She endorses that even though her infectious process is deemed to be stable and improved she does not overall feel better. On the other hand she does feel like if she could be a live longer for them and to feel as better as possible that she would want to do that ,though also acknowledges that she does not necessarily feel better, even though she is alive , she is spending this time in the hospital. She would like to meet with hospice again, will continue to explore this over the coming week, she does wish to complete her antibiotic course through October 12 though will be considering home with aggressive interventions versus home with hospice over the next week. Upon review of DNR vs Full code status she indicates that she would still want CPR/life support during ongoing hospital course, does NOT want DNR . She endorses the shortness of breath overall is improved, she no longer has the sharp right chest and posterior pain that she had been having. Appetite fair. No complaints of nausea vomiting or diarrhea. Voiding adequately no urinary complaints. She endorses she continues to have severe constant throbbing to bilateral feet, but that the toes themselves are numb. The pain goes up both lateral sides of her feet. She endorses the swelling is about the same though it fluctuates and improves some with elevation. She endorses the pain improves a little bit with elevation. Pain is 8 out of 10 generally, decreases to a 6 out of 10 after use of prn. Vascular surgery has been following for purple toes ; Vascular surgery recommended conservative management continue anticoagulation , weightbearing as tolerated and repeat PRANAV in 2-3 weeks. d/w medical attending, call to hospice admissions. . Advance Directives Living Will: Never completed Health Care Surrogate: Never completed Durable Power of Laborer Heading: Never completed Advance Directive Specifics Health Care Surrogate(s): No written advanced directives, patient refused to complete advanced directives during last admission. Patient a single. Children are juvenile. In the absence of written advanced directives, according to [place] statutes health care proxy decision-making falls to a parent. . Objective Vital Signs Date Time Temp Pulse Resp B/P (MAP) Pulse Ox O2 Delivery O2 Flow Rate FiO2 10/05/17 09:12 98 Nasal Cannula 3.00 10/05/17 08:00 102 10/05/17 08:00 97.9 106 22 98/69 (79) 93 10/05/17 07:37 Nasal Cannula 2.00 21 Humidified 10/05/17 04:00 98.9 104 22 99/51 (67) 98 10/05/17 04:00 Nasal Cannula 2.00 Humidified 10/05/17 03:40 99 10/04/17 23:55 99.0 101 20 95/52 (66) 100 10/04/17 23:55 Nasal Cannula 2.00 Humidified 10/04/17 23:45 99 10/04/17 19:53 93 Nasal Cannula 3.00 10/04/17 19:45 Nasal Cannula 2.00 10/04/17 19:45 97.2 103 22 98/55 (69) 95 10/04/17 19:42 105 10/04/17 16:00 108 10/04/17 16:00 98.3 93 20 94/68 (77) 100 10/04/17 12:00 97.0 96 20 97/60 (72) 98 10/04/17 11:53 98 Intake & Output 10/05/17 10/05/17 07:00 19:00 Intake Total 910 ml Output Total 1850 ml Balance -940 ml Intake Oral 610 ml IV Total 300 ml Output Urine Total 1850 ml # Bowel Movements 1 # Sanitary Pads 3 Pads Physical Exam CONSTITUTIONAL/GENERAL: This is an adequately nourished patient, unlabored respirations, emotional at times TUBES/LINES/DRAINS: NC, right IJ central line SKIN: Ecchymoses on extremities. + scabbing/lesion LLE- ankle, dorsal foot-- purplish/dark. Skin warm/dry. +4+ Edema BLE. CARDIOVASCULAR: systolic murmur noted. tachycardic. RESPIRATORY/CHEST: On NC. Mildly dyspneic with conversation. Bilateral course breath sounds. GASTROINTESTINAL: Abdomen soft, rounded, non-tender, nondistended. No guarding. Bowel sounds present. GENITOURINARY: Without palpable bladder distension. Voids bedside as needed- observe clear yellow urine present in BSC MUSCULOSKELETAL: Lower extremities 4+ edema. lesions noted Left foot and LE, dark purplish color. Unable to palp pulses- reported + via doppler . NEUROLOGICAL: Awake, flat affect. Tearful at times. Oriented, +insight into hospitalization and severe illness. Moves all 4 extremities. PSYCHIATRIC: Flat affect, tearful . Diagnostic Tests Laboratory Laboratory Tests Test 10/02/17 18:00 10/03/17 03:30 10/03/17 06:00 10/04/17 05:45 Activated Partial Thromboplast Time 77.3 SEC (24.3-30.1) 42.4 SEC (24.3-30.1) 52.9 SEC (24.3-30.1) 33.6 SEC (24.3-30.1) White Blood Count 12.1 TH/MM3 (4.0-11.0) 12.9 TH/MM3 (4.0-11.0) Red Blood Count 3.11 MIL/MM3 (4.00-5.30) 3.08 MIL/MM3 (4.00-5.30) Hemoglobin 7.5 GM/DL (11.6-15.3) 7.2 GM/DL (11.6-15.3) Hematocrit 23.7 % (35.0-46.0) 23.1 % (35.0-46.0) Mean Corpuscular Volume 75.9 FL (80.0-100.0) 75.2 FL (80.0-100.0) Mean Corpuscular Hemoglobin 24.0 PG (27.0-34.0) 23.4 PG (27.0-34.0) Mean Corpuscular Hemoglobin Concent 31.6 % (32.0-36.0) 31.2 % (32.0-36.0) Red Cell Distribution Width 23.2 % (11.6-17.2) 23.2 % (11.6-17.2) Platelet Count 106 TH/MM3 (150-450) 102 TH/MM3 (150-450) Mean Platelet Volume 8.5 FL (7.0-11.0) 8.7 FL (7.0-11.0) Prothrombin Time 26.1 SEC (9.8-11.6) 18.1 SEC (9.8-11.6) Prothromb Time International Ratio 2.6 RATIO 1.8 RATIO Blood Urea Nitrogen 18 MG/DL (7-18) 19 MG/DL (7-18) Creatinine 1.18 MG/DL (0.50-1.00) 1.20 MG/DL (0.50-1.00) Random Glucose 102 MG/DL (74-106) 103 MG/DL (74-106) Calcium Level 8.6 MG/DL (8.5-10.1) 8.6 MG/DL (8.5-10.1) Sodium Level 132 MEQ/L (136-145) 133 MEQ/L (136-145) Potassium Level 3.4 MEQ/L (3.5-5.1) 3.4 MEQ/L (3.5-5.1) Chloride Level 90 MEQ/L (98-107) 91 MEQ/L (98-107) Carbon Dioxide Level 31.2 MEQ/L (21.0-32.0) 32.1 MEQ/L (21.0-32.0) Anion Gap 11 MEQ/L (5-15) 10 MEQ/L (5-15) Estimat Glomerular Filtration Rate 52 ML/MIN (>89) 51 ML/MIN (>89) Total Protein 7.4 GM/DL (6.4-8.2) Albumin 3.7 GM/DL (3.4-5.0) Alkaline Phosphatase 80 U/L (45-117) Aspartate Amino Transf (AST/SGOT) 23 U/L (15-37) Alanine Aminotransferase (ALT/SGPT) 12 U/L (10-53) Total Bilirubin 1.1 MG/DL (0.2-1.0) Magnesium Level 1.4 MG/DL (1.5-2.5) Test 10/04/17 09:15 10/05/17 04:25 Prothrombin Time 17.1 SEC (9.8-11.6) 15.5 SEC (9.8-11.6) Prothromb Time International Ratio 1.7 RATIO 1.5 RATIO White Blood Count 13.3 TH/MM3 (4.0-11.0) Red Blood Count 3.06 MIL/MM3 (4.00-5.30) Hemoglobin 7.3 GM/DL (11.6-15.3) Hematocrit 23.0 % (35.0-46.0) Mean Corpuscular Volume 75.2 FL (80.0-100.0) Mean Corpuscular Hemoglobin 23.7 PG (27.0-34.0) Mean Corpuscular Hemoglobin Concent 31.5 % (32.0-36.0) Red Cell Distribution Width 22.9 % (11.6-17.2) Platelet Count 112 TH/MM3 (150-450) Mean Platelet Volume 9.1 FL (7.0-11.0) Neutrophils (%) (Auto) 80.4 % (16.0-70.0) Lymphocytes (%) (Auto) 11.5 % (9.0-44.0) Monocytes (%) (Auto) 6.0 % (0.0-8.0) Eosinophils (%) (Auto) 1.4 % (0.0-4.0) Basophils (%) (Auto) 0.7 % (0.0-2.0) Neutrophils # (Auto) 10.7 TH/MM3 (1.8-7.7) Lymphocytes # (Auto) 1.5 TH/MM3 (1.0-4.8) Monocytes # (Auto) 0.8 TH/MM3 (0-0.9) Eosinophils # (Auto) 0.2 TH/MM3 (0-0.4) Basophils # (Auto) 0.1 TH/MM3 (0-0.2) CBC Comment DIFF FINAL Differential Comment Activated Partial Thromboplast Time 28.9 SEC (24.3-30.1) Blood Urea Nitrogen 20 MG/DL (7-18) Creatinine 1.13 MG/DL (0.50-1.00) Random Glucose 99 MG/DL (74-106) Calcium Level 8.2 MG/DL (8.5-10.1) Magnesium Level 1.4 MG/DL (1.5-2.5) Sodium Level 133 MEQ/L (136-145) Potassium Level 2.8 MEQ/L (3.5-5.1) Chloride Level 91 MEQ/L (98-107) Carbon Dioxide Level 34.3 MEQ/L (21.0-32.0) Anion Gap 8 MEQ/L (5-15) Estimat Glomerular Filtration Rate 54 ML/MIN (>89) Result Diagram: 10/05/175 10/05/17424 Imaging Last Impressions Chest X-Ray 10/01/17 0000 Signed Impressions: Service Date/Time: Sunday, October 01, 2017 13:53 - CONCLUSION: No significant change in the right lower lobe infiltrate. Reuben Reece MD Catheter Placement X-Ray 09/24/17 0000 Signed Impressions: Service Date/Time: Sunday, September 24, 2017 11:16 - CONCLUSION: Uncomplicated venous catheter change as above. Luis Leija MD Head CT 09/08/17 0000 Signed Impressions: Service Date/Time: Friday, September 08, 2017 10:22 - CONCLUSION: 1. Focal area of decreased density involving the right parietal lobe. As a new finding from the prior exam. This could relate to a small infarct. MRI of the brain with gadolinium suggested to further evaluate. 2. Small lacunar infarction involving the left centrum semiovale. Ananth Ponce Jr., MD CT Angiography 09/08/17 0000 Signed Impressions: Service Date/Time: Friday, September 08, 2017 10:28 - CONCLUSION: There extensive pulmonary emboli bilaterally. There is near complete cut off of the right lower lobe pulmonary artery. Prominent filling defects on the left as well. These findings were relayed to Dr. Dominguez immediately at the completion of the study. Scattered pulmonary infiltrates, small pleural effusion and extensive mediastinal lymphadenopathy as described above. Karsten Crowder MD Brain MRI 09/08/17 0000 Signed Impressions: Service Date/Time: Friday, September 08, 2017 18:04 - CONCLUSION: Deterioration in the appearance of the scan. At least 3 focal areas of abnormal contrast enhancement are present scattered to in both hemispheres. Given the history this most likely represents developing areas cerebritis. Exam is compromised by an uncooperative patient and motion artifact. These 2 factors make detection of other abnormalities such as cortical cephalitis and meningitis difficult to exclude. Cannot exclude hemorrhagic lesions as well. There is no mass effect evident. Geremias Mauricio MD Chest CT 09/03/17 0000 Signed Impressions: Service Date/Time: Sunday, September 03, 2017 12:41 - CONCLUSION: 1. There are at least 5 pulmonary nodules present bilaterally with the largest measuring 19 mm. None demonstrate cavitation but it is possible that these represent septic emboli. Suggest followup to assess for change. 2. Splenomegaly with subtle wedge-shaped areas of low-density in the mid spleen which could represent infarcts. 3. Mild cardiomegaly in this patient post aortic valve replacement. Low density of the cardiac blood pool suggests anemia. Adalid Galo MD Aorta w/Runoff CTA 09/02/17 0000 Signed Impressions: Service Date/Time: Saturday, September 02, 2017 12:47 - CONCLUSION: Left renal cortical infarction. 5-6 cm length total occlusion of the left superficial femoral artery in the proximal thigh. Nodular parenchymal opacities in the lung bases bilaterally See above discussion. Adalid Dallas MD Renal Ultrasound 09/01/17 0000 Signed Impressions: Service Date/Time: Friday, September 01, 2017 10:53 - CONCLUSION: 1. No evidence of hydronephrosis. 2. Thickening of the urinary bladder wall a 1.1 cm. 3. Prominent splenomegaly. Baldemar Pineda MD Breast Ultrasound 09/01/17 0000 Signed Impressions: Service Date/Time: Friday, September 01, 2017 10:48 - CONCLUSION: Negative targeted right breast ultrasound examination. Adalid Haney MD Lower Extremity Ultrasound 08/31/17 0000 Signed Impressions: Service Date/Time: Thursday, August 31, 2017 21:22 - CONCLUSION: 1. No sonographic evidence for lower extremity DVT. 2. Incidental note of bilateral inguinal adenopathy with the largest on the right measuring 3.3 cm and the largest on the left measuring 2.6 cm. This finding is nonspecific but is typically reactive in etiology. 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 2 juvenile children. Supported by her mother, step- father and boyfriend. Spiritual: Unknown. Legal: No known written advanced directives, family is going to try to find [facility] paperwork they think pt previously completed. Patient a single. Children are juvenile. If no written advanced directives, according to [place] statutes health care proxy decision-making falls to a parent. Ethical issues impacting care: No known concerns at this time. . Important Contacts * Fany Nielsen, mother/ HCP: [phone] * Karsten Nielsen, stepfather: [phone] . Prognosis Patient has grim prognosis. . Code Status: Full Code Plan * Decision Maker: No written advanced directives, patient refused to complete advanced directives during last admission. Patient a single. Children are juvenile. In the absence of written advanced directives, according to [place] statutes health care proxy decision-making falls to her mother, Fany Nielsen. Karsten Nielsen is a step-father. Declines completion of written advance directives 09/10/17. * FULL CODE. * Patient is sad from her prolonged hospitalization and illness which she realizes will not get better. She is conflicted-- she is not ready to from her conditions, however she sees her health and quality of live are not improved even with ongoing aggressive tx. She wishes to complete abx course through October 12 here at the hospital. She wishes to meet with hospice, she is considering possibly enrolling w hospice at time of discharge. [she would be appropriate for hospice if goals compatible] If she does NOT d/c home w hospice , she will need to follow up with pain management outpatient, as she was prev referred, she did not get to establish with one. Her pain will be ongoing. * SYMPTOMS: * Pain: sources include endocarditis, bedbound status,purple toes syndome, etc. Patient with likely high tolerance given history of IV drug use, will monitor effective medications. she continues using PRN hydromorphone 1 mg IV about every 4 hours for the last many days (is ordered prn every 4 hours). Dose was decreased from 2mg to 1mg on 09/12/17. Previously on oral morphine 30mg BID outpatient while under hospice services. Pt will become tolerant to opiate doses. Hydromorphone dosing is 5-6 mg every 24 hours== this is equivalent to 100 oral morphine equivalents. Long acting oral morphine has been uptitrated by med attending. Pain is somewhat better though still present. We are not likely to achieve pain free status. I suspect some of this is also emotional pain. * Dyspnea: secondary to endocarditis, pulmonary emboli. +cont to have ongoing dyspnea, some improvement. On NC. * Hallucination: patient thought she saw a bug on her arm during prior palliative care visit, though knew it "wasn't really there." none reported today. No medication recommendations at this time. * Depression: Patient with flat affect, voicing she is "tired of being sick, tired of being in the hospital ", + situational--recurrent hospitalizations. She is going to continue to be in acutely ill situation with ongoing treatment; may benefit from SSRI if amenable, as well as ongoing psychotherapy support which is not available in current acute care setting * Palliative care will continue to follow throughout hospital course to assist with symptom management and clarification of goals as needed. . Attestation To help prompt me to consider important information that might be impacting today's encounter and assessment, information from prior notes written by myself or my colleagues may have been "brought forward" into today's note. My signature on this note, however, is an attestation that I personally performed the exam, history, and/or decision-making noted today, and, unless otherwise indicated, the interactions with patient, family, and staff as well as the review of records all occurred today. I also attest that the listed assessment and stated plan reflect my best clinical judgment today based on the combination of historical information, prior notes, and today's exam/ interactions. When time spent is documented, it refers only to time spent today by the signer, or if indicated, combined time spent today by collaborating physician/nurse practitioner. Joy Ceja Oct 05, 2017 11:09
--- NOTE | 2017-10-05 14:29 | HHI.PR ---
Subjective Remarks Follow-up endocarditis. Today she is less emotional. States she will set up with hospice after completion of treatment with IV antibiotics. Agrees to modify pain management. Discussed with palliative care. Objective Vitals Vital Signs Date Time Temp Pulse Resp B/P (MAP) Pulse Ox O2 Delivery O2 Flow Rate FiO2 10/05/17 12:00 98.0 87 22 91/54 (66) 95 10/05/17 09:12 98 Nasal Cannula 3.00 10/05/17 08:00 102 10/05/17 08:00 97.9 106 22 98/69 (79) 93 10/05/17 07:37 Nasal Cannula 2.00 21 Humidified 10/05/17 04:00 98.9 104 22 99/51 (67) 98 10/05/17 04:00 Nasal Cannula 2.00 Humidified 10/05/17 03:40 99 10/04/17 23:55 99.0 101 20 95/52 (66) 100 10/04/17 23:55 Nasal Cannula 2.00 Humidified 10/04/17 23:45 99 10/04/17 19:53 93 Nasal Cannula 3.00 10/04/17 19:45 Nasal Cannula 2.00 10/04/17 19:45 97.2 103 22 98/55 (69) 95 10/04/17 19:42 105 10/04/17 16:00 108 10/04/17 16:00 98.3 93 20 94/68 (77) 100 I/O 10/04/17 10/04/17 10/04/17 10/05/17 10/05/17 10/05/17 06:59 14:59 22:59 06:59 14:59 22:59 Intake Total 710 ml 100 ml 780 ml 710 ml Output Total 1400 ml 1850 ml Balance -690 ml 100 ml 780 ml -1140 ml Intake Oral 510 ml 480 ml 610 ml IV Total 200 ml 100 ml 300 ml 100 ml Output Urine Total 1400 ml 1850 ml # Voids 4 # Bowel Movements 1 3 1 # Sanitary Pads 3 Pads 3 Pads Result Diagram: 10/05/17 0425 10/05/17 0425 Imaging Last Impressions Chest X-Ray 10/01/17 0000 Signed Impressions: Service Date/Time: Sunday, October 01, 2017 13:53 - CONCLUSION: No significant change in the right lower lobe infiltrate. Reuben Reece MD Catheter Placement X-Ray 09/24/17 0000 Signed Impressions: Service Date/Time: Sunday, September 24, 2017 11:16 - CONCLUSION: Uncomplicated venous catheter change as above. Luis Leija MD Head CT 09/08/17 0000 Signed Impressions: Service Date/Time: Friday, September 08, 2017 10:22 - CONCLUSION: 1. Focal area of decreased density involving the right parietal lobe. As a new finding from the prior exam. This could relate to a small infarct. MRI of the brain with gadolinium suggested to further evaluate. 2. Small lacunar infarction involving the left centrum semiovale. Ananth Ponce Jr., MD CT Angiography 09/08/17 0000 Signed Impressions: Service Date/Time: Friday, September 08, 2017 10:28 - CONCLUSION: There extensive pulmonary emboli bilaterally. There is near complete cut off of the right lower lobe pulmonary artery. Prominent filling defects on the left as well. These findings were relayed to Dr. Dominguez immediately at the completion of the study. Scattered pulmonary infiltrates, small pleural effusion and extensive mediastinal lymphadenopathy as described above. Karsten Crowder MD Brain MRI 09/08/17 0000 Signed Impressions: Service Date/Time: Friday, September 08, 2017 18:04 - CONCLUSION: Deterioration in the appearance of the scan. At least 3 focal areas of abnormal contrast enhancement are present scattered to in both hemispheres. Given the history this most likely represents developing areas cerebritis. Exam is compromised by an uncooperative patient and motion artifact. These 2 factors make detection of other abnormalities such as cortical cephalitis and meningitis difficult to exclude. Cannot exclude hemorrhagic lesions as well. There is no mass effect evident. Geremias Mauricio MD Chest CT 09/03/17 0000 Signed Impressions: Service Date/Time: Sunday, September 03, 2017 12:41 - CONCLUSION: 1. There are at least 5 pulmonary nodules present bilaterally with the largest measuring 19 mm. None demonstrate cavitation but it is possible that these represent septic emboli. Suggest followup to assess for change. 2. Splenomegaly with subtle wedge-shaped areas of low-density in the mid spleen which could represent infarcts. 3. Mild cardiomegaly in this patient post aortic valve replacement. Low density of the cardiac blood pool suggests anemia. Adalid Galo MD Aorta w/Runoff CTA 09/02/17 0000 Signed Impressions: Service Date/Time: Saturday, September 02, 2017 12:47 - CONCLUSION: Left renal cortical infarction. 5-6 cm length total occlusion of the left superficial femoral artery in the proximal thigh. Nodular parenchymal opacities in the lung bases bilaterally See above discussion. Adalid Dallas MD Renal Ultrasound 09/01/17 0000 Signed Impressions: Service Date/Time: Friday, September 01, 2017 10:53 - CONCLUSION: 1. No evidence of hydronephrosis. 2. Thickening of the urinary bladder wall a 1.1 cm. 3. Prominent splenomegaly. Baldemar Pineda MD Breast Ultrasound 09/01/17 0000 Signed Impressions: Service Date/Time: Friday, September 01, 2017 10:48 - CONCLUSION: Negative targeted right breast ultrasound examination. Adalid Haney MD Lower Extremity Ultrasound 08/31/17 0000 Signed Impressions: Service Date/Time: Thursday, August 31, 2017 21:22 - CONCLUSION: 1. No sonographic evidence for lower extremity DVT. 2. Incidental note of bilateral inguinal adenopathy with the largest on the right measuring 3.3 cm and the largest on the left measuring 2.6 cm. This finding is nonspecific but is typically reactive in etiology. Luis Leija MD Objective Remarks AAOx3 NAD Clear lungs BL S1S2 4/6 systolic ejection murmur +3 BL lower extremity edema. Erythema improved, left foot very tender to palpation. . Dark discoloration left toes you 3rd and 5th. pulses not palpable due to edema. Good capillary refill. Procedures Exchange of right IJ central line Date of Insertion: Sep 24, 2017 Line: Central Venous Catheter Side: Right Location: Internal, Jugular A/P Problem List: (1) Prosthetic valve endocarditis ICD Code: T82.6XXA - Infection and inflammatory reaction due to cardiac valve prosthesis, initial encounter Status: Acute (2) Bacteremia ICD Code: R78.81 - Bacteremia (3) Septic pulmonary embolism ICD Code: I26.90 - Septic pulmonary embolism without acute cor pulmonale Status: Acute (4) IVDU (intravenous drug user) ICD Code: F19.90 - Other psychoactive substance use, unspecified, uncomplicated (5) Anemia ICD Code: D64.9 - Anemia, unspecified Status: Chronic (6) DUONG (acute kidney injury) ICD Code: N17.9 - Acute kidney failure, unspecified (7) Cellulitis of left lower extremity ICD Code: L03.116 - Cellulitis of left lower limb (8) Purple toe syndrome ICD Code: I75.029 - Atheroembolism of unspecified lower extremity (9) Pleuritic chest pain ICD Code: R07.81 - Pleurodynia Assessment and Plan (1) Prosthetic valve endocarditis Continue IV ampicillin and daptomycin until October 12 per CTS, patient would not benefit from further cardiac surgery. Patient feels she is not getting any better and wants to talk to hospice again. Hospice will be consulted (2) Bacteremia Plan: Blood cultures obtained on 08/31 growing strep viridans. Subsequent repeat blood cultures negative. 09/24 sp Exchange of Right IJ central line. Continue antibiotics as per ID recommendations. (3) Septic pulmonary embolism Plan: As observed on a CT angiography of the chest obtained on 09/08/17. echocardiogram on 09/08 showed an estimated EF of 50-55%. ++severe tricuspid regurgitation with prosthesis in place. ++2 x 4 cm mobile vegetation was seen on the valve. The right atrium and right ventricle were normal in size and function Hematology following. Goal INR 2.5-3.5 given the presence of a prosthetic aortic valve. Status post heparin drip (4) IVDU (intravenous drug user) Plan: Counseled on drug cessation. (5) Anemia Plan: Likely secondary to inflammation/infection. No evidence of bleeding or hemolysis. Monitor hemoglobin and transfuse as needed. (6) DUONG (acute kidney injury) Plan: Nephrology consulted. Possible ATN from vancomycin toxicity or infection. Urine eosinophils were ordered and negative. Diuretics managed by nephrology. Initially on Lasix 20 mg IV twice daily along with albumin. Creatinine Worsening on 09/24 for 1.57-1.62. Later Lasix dose was increased to 40 mg IV twice daily and metolazone added to the regimen. Creatinine then started trending down to 1.34 on 09/28. 10/03 creatinine stable Management as per nephrology. Continue to monitor BUN and creatinine, avoid nephrotoxins, history I's and O's. Hemodynamics improving (7) Cellulitis of left lower extremity Plan: Continue IV antibiotics as per ID. Cellulitis seems to be improving. (8) Purple toe syndrome Vascular surgery recommended conservative management continue anticoagulation, weightbearing as tolerated and repeat PRANAV in 2-3 weeks Patient also with severe excruciating pain secondary to possible some ischemia. Increase dose of morphine sulfate from 30 mg p.o. every 12 hours to 45 mg p.o. every 12 hours. Counseled regarding narcotic usage (9) Pleuritic chest pain Improving control of pleuritic chest pain. Repeat chest x-ray obtained on did not show any significant change in the right lower lobe infiltrate. Discharge Planning Patient with prosthetic valve endocarditis, bacteremia, septic pulmonary embolism and acute kidney injury. Patient still edematous, good urine output. Will need ID clearance prior to discharge. Problem Qualifiers (1) Prosthetic valve endocarditis: Qualified Codes: T82.6XXA - Infection and inflammatory reaction due to cardiac valve prosthesis, initial encounter (2) Anemia: Qualified Codes: D63.8 - Anemia in other chronic diseases classified elsewhere (3) Purple toe syndrome: Qualified Codes: I75.022 - Atheroembolism of left lower extremity Roby Whitaker MD Oct 05, 2017 14:29
[2017-10-05] MEDS: WARFARIN SOD 2 MG TAB PO SCH (15:38)
[2017-10-05] MEDS: ACETAMINOPHEN/HYDROcodone 325 MG/10 MG TAB PO PRN (18:32)
[2017-10-05] MEDS: DAPTOmycin INJ 500 MG in SODIUM CHLORIDE 0.9% INJ 100 ML IV SCH (20:16)
[2017-10-06] VITALS (12 sets, daily range): BP systolic 84–110; BP diastolic 53–68; PULSE 82–103; RESP 18–21; TEMP 97.2–98.2; O2SAT 92–99
[2017-10-06] MEDS: ACETAMINOPHEN/HYDROcodone 325 MG/10 MG TAB PO PRN ×4 (00:16→20:58)
[2017-10-06] MEDS: AMPICILLIN INJ 2,000 MG in SODIUM CHLORIDE 0.9% INJ 100 ML IV SCH ×4 (01:44→20:57)
[2017-10-06] MEDS: HYDROmorphone HCL PF 2 MG/ML VIAL IV PUSH PRN ×4 (04:11→23:07)
[2017-10-06 06:39] LABS: AUTOMATED NEUTROPHIL # 11.9 TH/MM3 (1.8-7.7); BASOPHIL # 0.1 TH/MM3 (0-0.2); BASOPHIL % 0.5 % (0.0-2.0); EOSINOPHIL # 0.3 TH/MM3 (0-0.4); HEMATOCRIT 29.9 % (35.0-46.0); HEMOGLOBIN 9.5 GM/DL (11.6-15.3); LYMPH % 10.8 % (9.0-44.0); LYMPHOCYTE # 1.6 TH/MM3 (1.0-4.8); MEAN CELL VOLUME 77.5 FL (80.0-100.0); MEAN CORPUSCULAR HEMOGLOBIN 24.7 PG (27.0-34.0); MEAN CORPUSCULAR HGB CONC 31.8 % (32.0-36.0); MONO % 5.6 % (0.0-8.0); MONOCYTE # 0.8 TH/MM3 (0-0.9); NEUT % 81.1 % (16.0-70.0); PLATELET COUNT 119 TH/MM3 (150-450); RED BLOOD COUNT 3.85 MIL/MM3 (4.00-5.30); RED CELL DISTRIBUTION WIDTH 22.5 % (11.6-17.2); WHITE BLOOD COUNT 14.7 TH/MM3 (4.0-11.0)
[2017-10-06 07:39] LABS: BICARBONATE 34.6 MEQ/L (21.0-32.0); CALCIUM 8.4 MG/DL (8.5-10.1); CREATININE 1.05 MG/DL (0.50-1.00); MAGNESIUM 1.5 MG/DL (1.5-2.5)
[2017-10-06] MEDS: FUROSEMIDE 20 MG/2 ML VIAL IV PUSH SCH ×2 (08:08→17:01)
[2017-10-06] MEDS: METOLAZONE 2.5 MG TAB PO SCH ×2 (08:08→20:56)
[2017-10-06] MEDS: DOCUSATE SODIUM 50 MG/SENNA 8.6 MG TAB PO SCH ×2 (08:16→20:57)
[2017-10-06] MEDS: POTASSIUM CHLORIDE 10 MEQ CONTROLLED RELEASE TAB PO SCH ×2 (08:17→20:56)
[2017-10-06] MEDS: MORPHINE SULFATE 15 MG CONTROLLED RELEASE TAB PO SCH ×2 (08:18→20:56)
[2017-10-06] MEDS: SODIUM CHLORIDE 0.9% FLUSH 10 ML FLUSH IV FLUSH SCH ×2 (08:18→20:57)
[2017-10-06] MEDS ORDERED: POTASSIUM CHLORIDE 10 MEQ CONTROLLED RELEASE TAB PO ONE ×2 (10:00→15:00)
[2017-10-06 10:55] LABS: INTERNATIONAL NORMALIZED RATIO 1.4 RATIO; PROTHROMBIN TIME - PATIENT 14.3 SEC (9.8-11.6)
--- NOTE | 2017-10-06 11:18 | HHI.NPPN ---
Subjective General Problems: Anemia Renal Failure: Acute History of Present Illness This is a 37-year-old female with past medical history of IV drug abuse, history of hepatitis C, narcotic dependency, came to the hospital with complaint of shortness of breath and swelling. Nephrology called to see the patient because of elevated BUN and creatinine. The patient has creatinine of 4.5 on admission which improved and it was staying in the range of 0.6-0.8 until 6 days ago, then it started going up again and now it is 1.7. The patient has increased swelling of the legs and the patient was diagnosed with endocarditis and she has blood culture positive for Strep viridans. Patient has been following with the ID and she was getting furosemide, which was stopped today this morning because of increased creatinine and she was on vancomycin and rifampicin. The last dose of vancomycin seems to be given possibly on 09/09/2017 or even later, but her level was high and the highest level we have was 25.8, which was on 09/09/2017 but on 09/15/2017 it was 23.9. The patient has been actively using IV drugs before she came to the hospital and noticed to have more swelling in her legs. She is complaining of generalized body pain. There is no nausea, vomiting. Denies any diarrhea. Her appetite is normal. Additional Remarks Patient is alert, with nasal cannula, mild pain in left leg. Review of Systems General Constitutional: Fatigue Respiratory Lungs: SOB Respiratory Remarks improving Cardiovascular Cardiac: Edema, FOREMAN Cardiac Remarks Denies CP Gastrointestinal GI Remarks denies abdominal pain Objective Data Data Vital Signs Date Time Temp Pulse Resp B/P (MAP) Pulse Ox O2 Delivery O2 Flow Rate FiO2 10/06/17 10:09 95 Nasal Cannula 2.00 10/06/17 08:00 Nasal Cannula 2.00 Humidified 10/06/17 08:00 97.7 88 21 84/53 (63) 95 10/06/17 05:18 97.2 87 20 90/55 (67) 99 10/06/17 04:00 Nasal Cannula 2.00 Humidified 10/06/17 04:00 84 10/06/17 00:00 103 10/06/17 00:00 97.8 97 18 95/64 (74) 92 10/06/17 00:00 Nasal Cannula 2.00 Humidified 10/05/17 21:40 96 Nasal Cannula 3.00 10/05/17 21:20 98.1 100 22 101/58 97 10/05/17 20:00 Nasal Cannula 2.00 Humidified 10/05/17 20:00 101 10/05/17 20:00 98.7 95 20 102/56 (71) 98 10/05/17 18:41 98.2 98 22 94/58 96 10/05/17 18:34 98.2 95 22 98/60 97 10/05/17 17:26 97.4 96 20 94/58 95 10/05/17 16:00 97.3 102 22 106/65 (79) 94 10/05/17 15:39 98.0 95 22 94/60 97 10/05/17 15:09 97.3 102 22 106/65 94 10/05/17 15:00 92 10/05/17 12:00 98.0 87 22 91/54 (66) 95 10/05/17 12:00 94 -: 10/06/17 0620 10/06/17 0620 Physical Exam General Appearance: No Acute Distress, Anxious Eyes Eye Exam: Pupils Equal Throat Throat Exam: Oral Mucosa [place] & Moist Neck Neck Exam: Neck Supple Pulmonary Resp Exam: Clear Bilaterally Cardiology CV Exam: Regular, Normal Sinus Rhythm Gastrointestinal/Abdomen GI Exam: Soft, Non-Tender Integumentary Skin Exam: Dry, Intact Extremeties Extremities Exam: Moderate Edema (Left leg with mild redness.), Pitting Edema, Dependent Edema Neurologic Neuro Exam: Alert, Awake, Oriented Psychiatric Psych Exam: Appropriate Responses Assessment/Plan Discussed Condition With: Patient Assessment Summary: DUONG/Acute Renal Failure Problem List: (1) Acute kidney injury ICD Codes: N17.9 - Acute kidney failure, unspecified Status: Acute Plan: DUONG likely due to vancomycin toxicity, post-infectious GN is unlikely. Possibility of ATN or pre renal. Urine eosinophils negative, complements wnl Creatinine stable Good UOP Plan Hypokalemia at 2.9 replacement given Low magnesium level replacement given Continue Lasix 40 mg IV BID and metolazone for edema Continue to monitor BMP and UOP Encouraged to elevate legs throughout day Avoid nephrotoxins when possible. Fluid restriction in place. BP is on lower side, add Midodrine. Continue diuretics, K is low and replaced. (2) Prosthetic valve endocarditis ICD Codes: T82.6XXA - Infection and inflammatory reaction due to cardiac valve prosthesis, initial encounter Status: Acute Plan: septic endocarditis with strep viridans IV drug use, pulmonary emboli as well. Continues antibiotics per ID continue renal dosing antibiotics. (3) Peripheral arterial occlusive disease ICD Codes: I77.9 - Disorder of arteries and arterioles, unspecified Plan: seen with vascular, continue medical management Hold contrast studies as possible. (4) Hepatitis C ICD Codes: B19.20 - Unspecified viral hepatitis C without hepatic coma Status: Chronic Problem Qualifiers (1) Prosthetic valve endocarditis: Qualified Codes: T82.6XXA - Infection and inflammatory reaction due to cardiac valve prosthesis, initial encounter Randal Salinas MD Oct 06, 2017 11:18
[2017-10-06] MEDS: MIDODRINE 5 MG TAB PO SCH ×2 (12:03→17:01)
[2017-10-06] MEDS: HEPARIN-D5W 25,000 U/250 ML 250 ML IV PRN (12:07)
--- NOTE | 2017-10-06 13:31 | HHI.PR ---
Subjective Remarks Follow-up cellulitis. Continues to have pain involving the left lower extremity. Discussed with nursing Objective Vitals Vital Signs Date Time Temp Pulse Resp B/P (MAP) Pulse Ox O2 Delivery O2 Flow Rate FiO2 10/06/17 12:00 97.3 82 20 101/58 (72) 95 10/06/17 10:09 95 Nasal Cannula 2.00 10/06/17 08:00 Nasal Cannula 2.00 Humidified 10/06/17 08:00 97.7 88 21 84/53 (63) 95 10/06/17 05:18 97.2 87 20 90/55 (67) 99 10/06/17 04:00 Nasal Cannula 2.00 Humidified 10/06/17 04:00 84 10/06/17 00:00 103 10/06/17 00:00 97.8 97 18 95/64 (74) 92 10/06/17 00:00 Nasal Cannula 2.00 Humidified 10/05/17 21:40 96 Nasal Cannula 3.00 10/05/17 21:20 98.1 100 22 101/58 97 10/05/17 20:00 Nasal Cannula 2.00 Humidified 10/05/17 20:00 101 10/05/17 20:00 98.7 95 20 102/56 (71) 98 10/05/17 18:41 98.2 98 22 94/58 96 10/05/17 18:34 98.2 95 22 98/60 97 10/05/17 17:26 97.4 96 20 94/58 95 10/05/17 16:00 97.3 102 22 106/65 (79) 94 10/05/17 15:39 98.0 95 22 94/60 97 10/05/17 15:09 97.3 102 22 106/65 94 10/05/17 15:00 92 I/O 10/05/17 10/05/17 10/05/17 10/06/17 10/06/17 10/06/17 07:00 15:00 23:00 07:00 15:00 23:00 Intake Total 710 ml 300 ml 1660 ml 850 ml Output Total 1850 ml 700 ml Balance -1140 ml 300 ml 1660 ml 150 ml Intake Oral 610 ml 400 ml 150 ml IV Total 100 ml 300 ml 450 ml Packed Cells 800 ml 700 ml Blood Product IV Normal Saline Flush 10 ml Output Urine Total 1850 ml 700 ml # Voids 6 # Bowel Movements 1 # Sanitary Pads 3 Pads Result Diagram: 10/06/1761910/06/17619 Imaging Last Impressions Chest X-Ray 10/01/17 0000 Signed Impressions: Service Date/Time: Sunday, October 01, 2017 13:53 - CONCLUSION: No significant change in the right lower lobe infiltrate. Reuben Reece MD Catheter Placement X-Ray 09/24/17 0000 Signed Impressions: Service Date/Time: Sunday, September 24, 2017 11:16 - CONCLUSION: Uncomplicated venous catheter change as above. Luis Leija MD Head CT 09/08/17 0000 Signed Impressions: Service Date/Time: Friday, September 08, 2017 10:22 - CONCLUSION: 1. Focal area of decreased density involving the right parietal lobe. As a new finding from the prior exam. This could relate to a small infarct. MRI of the brain with gadolinium suggested to further evaluate. 2. Small lacunar infarction involving the left centrum semiovale. Ananth Ponce Jr., MD CT Angiography 09/08/17 0000 Signed Impressions: Service Date/Time: Friday, September 08, 2017 10:28 - CONCLUSION: There extensive pulmonary emboli bilaterally. There is near complete cut off of the right lower lobe pulmonary artery. Prominent filling defects on the left as well. These findings were relayed to Dr. Dominguez immediately at the completion of the study. Scattered pulmonary infiltrates, small pleural effusion and extensive mediastinal lymphadenopathy as described above. Karsten Crowder MD Brain MRI 09/08/17 0000 Signed Impressions: Service Date/Time: Friday, September 08, 2017 18:04 - CONCLUSION: Deterioration in the appearance of the scan. At least 3 focal areas of abnormal contrast enhancement are present scattered to in both hemispheres. Given the history this most likely represents developing areas cerebritis. Exam is compromised by an uncooperative patient and motion artifact. These 2 factors make detection of other abnormalities such as cortical cephalitis and meningitis difficult to exclude. Cannot exclude hemorrhagic lesions as well. There is no mass effect evident. Geremias Mauricio MD Chest CT 09/03/17 0000 Signed Impressions: Service Date/Time: Sunday, September 03, 2017 12:41 - CONCLUSION: 1. There are at least 5 pulmonary nodules present bilaterally with the largest measuring 19 mm. None demonstrate cavitation but it is possible that these represent septic emboli. Suggest followup to assess for change. 2. Splenomegaly with subtle wedge-shaped areas of low-density in the mid spleen which could represent infarcts. 3. Mild cardiomegaly in this patient post aortic valve replacement. Low density of the cardiac blood pool suggests anemia. Adalid Galo MD Aorta w/Runoff CTA 09/02/17 0000 Signed Impressions: Service Date/Time: Saturday, September 02, 2017 12:47 - CONCLUSION: Left renal cortical infarction. 5-6 cm length total occlusion of the left superficial femoral artery in the proximal thigh. Nodular parenchymal opacities in the lung bases bilaterally See above discussion. Adalid Dallas MD Renal Ultrasound 09/01/17 0000 Signed Impressions: Service Date/Time: Friday, September 01, 2017 10:53 - CONCLUSION: 1. No evidence of hydronephrosis. 2. Thickening of the urinary bladder wall a 1.1 cm. 3. Prominent splenomegaly. Baldemar Pineda MD Breast Ultrasound 09/01/17 0000 Signed Impressions: Service Date/Time: Friday, September 01, 2017 10:48 - CONCLUSION: Negative targeted right breast ultrasound examination. Adalid Haney MD Lower Extremity Ultrasound 08/31/17 0000 Signed Impressions: Service Date/Time: Thursday, August 31, 2017 21:22 - CONCLUSION: 1. No sonographic evidence for lower extremity DVT. 2. Incidental note of bilateral inguinal adenopathy with the largest on the right measuring 3.3 cm and the largest on the left measuring 2.6 cm. This finding is nonspecific but is typically reactive in etiology. Luis Leija MD Objective Remarks AAOx3 NAD Clear lungs BL S1S2 4/6 systolic ejection murmur +3 BL lower extremity edema. Erythema improved, left foot very tender to palpation. . Dark discoloration left toes you 3rd and 5th. pulses not palpable due to edema. Good capillary refill. Procedures Exchange of right IJ central line Date of Insertion: Sep 24, 2017 Line: Central Venous Catheter Side: Right Location: Internal, Jugular A/P Problem List: (1) Prosthetic valve endocarditis ICD Code: T82.6XXA - Infection and inflammatory reaction due to cardiac valve prosthesis, initial encounter Status: Acute (2) Bacteremia ICD Code: R78.81 - Bacteremia (3) Septic pulmonary embolism ICD Code: I26.90 - Septic pulmonary embolism without acute cor pulmonale Status: Acute (4) IVDU (intravenous drug user) ICD Code: F19.90 - Other psychoactive substance use, unspecified, uncomplicated (5) Anemia ICD Code: D64.9 - Anemia, unspecified Status: Chronic (6) DUONG (acute kidney injury) ICD Code: N17.9 - Acute kidney failure, unspecified (7) Cellulitis of left lower extremity ICD Code: L03.116 - Cellulitis of left lower limb (8) Purple toe syndrome ICD Code: I75.029 - Atheroembolism of unspecified lower extremity (9) Pleuritic chest pain ICD Code: R07.81 - Pleurodynia Assessment and Plan (1) Prosthetic valve endocarditis Continue IV ampicillin and daptomycin until October 12 per CTS, patient would not benefit from further cardiac surgery. Patient feels she is not getting any better and wants to talk to hospice again. Hospice has been reconsulted. She wants to set up with hospice after completion of antibiotics (2) Bacteremia Plan: Blood cultures obtained on 08/31 growing strep viridans. Subsequent repeat blood cultures negative. 09/24 sp Exchange of Right IJ central line. Continue antibiotics as per ID recommendations. (3) Septic pulmonary embolism Plan: As observed on a CT angiography of the chest obtained on 09/08/17. echocardiogram on 09/08 showed an estimated EF of 50-55%. ++severe tricuspid regurgitation with prosthesis in place. ++2 x 4 cm mobile vegetation was seen on the valve. The right atrium and right ventricle were normal in size and function Hematology following. Goal INR 2.5-3.5 given the presence of a prosthetic aortic valve. Restart heparin drip since INR subtherapeutic (4) IVDU (intravenous drug user) Plan: Counseled on drug cessation. (5) Anemia Plan: Likely secondary to inflammation/infection. No evidence of bleeding or hemolysis. Monitor hemoglobin and transfuse as needed. (6) DUONG (acute kidney injury) Plan: Nephrology consulted. Possible ATN from vancomycin toxicity or infection. Urine eosinophils were ordered and negative. Diuretics managed by nephrology. Initially on Lasix 20 mg IV twice daily along with albumin. Creatinine Worsening on 09/24 for 1.57-1.62. Later Lasix dose was increased to 40 mg IV twice daily and metolazone added to the regimen. Creatinine then started trending down to 1.34 on 09/28. 10/03 creatinine stable Management as per nephrology. Continue to monitor BUN and creatinine, avoid nephrotoxins, history I's and O's. (7) Cellulitis of left lower extremity Plan: Continue IV antibiotics as per ID. Cellulitis seems to be improving. (8) Purple toe syndrome Vascular surgery recommended conservative management continue anticoagulation, weightbearing as tolerated and repeat PRANAV in 2-3 weeks Patient also with severe excruciating pain secondary to possible some ischemia. Increase dose of morphine sulfate from 30 mg p.o. every 12 hours to 45 mg p.o. every 12 hours. Counseled regarding narcotic usage. Consider Nitropaste on the left lower extremity if BP improved (9) Pleuritic chest pain Improving control of pleuritic chest pain. Repeat chest x-ray obtained on did not show any significant change in the right lower lobe infiltrate. Discharge Planning Patient with prosthetic valve endocarditis, bacteremia, septic pulmonary embolism and acute kidney injury. Patient still edematous, good urine output. Will need ID clearance prior to discharge. Problem Qualifiers (1) Prosthetic valve endocarditis: Qualified Codes: T82.6XXA - Infection and inflammatory reaction due to cardiac valve prosthesis, initial encounter (2) Anemia: Qualified Codes: D63.8 - Anemia in other chronic diseases classified elsewhere (3) Purple toe syndrome: Qualified Codes: I75.022 - Atheroembolism of left lower extremity Roby Whitaker MD Oct 06, 2017 13:31
[2017-10-06] MEDS ORDERED: POTASSIUM CHLORIDE 20 MEQ CONTROLLED RELEASE TAB PO ONE (15:00)
[2017-10-06] MEDS: WARFARIN SOD 2 MG TAB PO SCH (17:01)
[2017-10-06] MEDS: DAPTOmycin INJ 500 MG in SODIUM CHLORIDE 0.9% INJ 100 ML IV SCH (20:57)
[2017-10-06] MEDS: SODIUM CHLORIDE 0.9% FLUSH 10 ML FLUSH IV FLUSH PRN (23:08)
[2017-10-07] VITALS (12 sets, daily range): BP systolic 88–105; BP diastolic 50–77; PULSE 80–102; RESP 16–22; TEMP 97.6–98.6; O2SAT 94–98
[2017-10-07] MEDS: SODIUM CHLORIDE 0.9% FLUSH 10 ML FLUSH IV FLUSH PRN ×2 (01:19→06:28)
[2017-10-07] MEDS: AMPICILLIN INJ 2,000 MG in SODIUM CHLORIDE 0.9% INJ 100 ML IV SCH ×4 (01:20→20:05)
[2017-10-07 02:23] LABS: INTERNATIONAL NORMALIZED RATIO 1.5 RATIO; PROTHROMBIN TIME - PATIENT 14.7 SEC (9.8-11.6)
[2017-10-07] MEDS: MIDODRINE 5 MG TAB PO SCH ×3 (06:28→16:31)
[2017-10-07 07:01] LABS: AUTOMATED NEUTROPHIL # 10.8 TH/MM3 (1.8-7.7); BASOPHIL # 0.1 TH/MM3 (0-0.2); BASOPHIL % 0.7 % (0.0-2.0); EOSINOPHIL # 0.2 TH/MM3 (0-0.4); EOSINOPHIL % 1.3 % (0.0-4.0); HEMATOCRIT 26.9 % (35.0-46.0); HEMOGLOBIN 8.6 GM/DL (11.6-15.3); LYMPH % 10.1 % (9.0-44.0); LYMPHOCYTE # 1.3 TH/MM3 (1.0-4.8); MEAN CELL VOLUME 77.1 FL (80.0-100.0); MEAN CORPUSCULAR HEMOGLOBIN 24.7 PG (27.0-34.0); MEAN PLATELET VOLUME 9.1 FL (7.0-11.0); MONO % 6.1 % (0.0-8.0); MONOCYTE # 0.8 TH/MM3 (0-0.9); NEUT % 81.8 % (16.0-70.0); PLATELET COUNT 110 TH/MM3 (150-450); RED BLOOD COUNT 3.49 MIL/MM3 (4.00-5.30); RED CELL DISTRIBUTION WIDTH 22.3 % (11.6-17.2); WHITE BLOOD COUNT 13.2 TH/MM3 (4.0-11.0)
[2017-10-07 07:28] LABS: BICARBONATE 35.9 MEQ/L (21.0-32.0); CALCIUM 8.6 MG/DL (8.5-10.1); CREATININE 0.92 MG/DL (0.50-1.00); MAGNESIUM 1.5 MG/DL (1.5-2.5)
[2017-10-07] MEDS ORDERED: POTASSIUM CHLOR 20 MEQ PREMIX 100 ML IV ONE (08:45)
[2017-10-07] MEDS: METOLAZONE 2.5 MG TAB PO SCH ×2 (09:00→20:05)
[2017-10-07] MEDS: DOCUSATE SODIUM 50 MG/SENNA 8.6 MG TAB PO SCH ×2 (09:00→20:06)
[2017-10-07] MEDS: FUROSEMIDE 20 MG/2 ML VIAL IV PUSH SCH ×2 (09:00→17:34)
[2017-10-07] MEDS: SODIUM CHLORIDE 0.9% FLUSH 10 ML FLUSH IV FLUSH SCH ×2 (09:23→20:05)
[2017-10-07] MEDS: POTASSIUM CHLORIDE 10 MEQ CONTROLLED RELEASE TAB PO SCH ×2 (09:23→20:04)
[2017-10-07] MEDS: MORPHINE SULFATE 15 MG CONTROLLED RELEASE TAB PO SCH ×2 (09:24→20:10)
[2017-10-07] MEDS: ACETAMINOPHEN/HYDROcodone 325 MG/10 MG TAB PO PRN ×3 (09:24→22:59)
--- NOTE | 2017-10-07 10:42 | HHI.PR ---
Subjective Remarks Follow-up endocarditis and deconditioning. Patient has not been getting out of bed, patient has been encourage to be more active as discharge date is near discussed with RN, PT to see patient daily Objective Vitals Vital Signs Date Time Temp Pulse Resp B/P (MAP) Pulse Ox O2 Delivery O2 Flow Rate FiO2 10/07/17 08:00 Nasal Cannula 2.00 Humidified 10/07/17 08:00 98.5 102 22 105/56 (72) 98 10/07/17 05:54 97.6 92 20 95/55 (68) 94 10/07/17 04:00 87 10/07/17 01:25 90/58 (69) 10/07/17 00:00 98.3 100 20 89/56 (67) 94 10/07/17 00:00 100 10/07/17 00:00 88/50 (63) 10/06/17 23:55 Nasal Cannula 2.00 Humidified 10/06/17 21:00 98 Nasal Cannula 2.00 10/06/17 20:00 84 10/06/17 20:00 98.2 86 20 107/68 (81) 94 10/06/17 16:05 103 10/06/17 16:00 Nasal Cannula 2.00 Humidified 10/06/17 16:00 98.2 88 20 110/58 (75) 98 10/06/17 12:16 88 10/06/17 12:00 Nasal Cannula 2.00 Humidified 10/06/17 12:00 97.3 82 20 101/58 (72) 95 I/O 10/06/17 10/06/17 10/06/17 10/07/17 10/07/17 10/07/17 07:00 15:00 23:00 07:00 15:00 23:00 Intake Total 850 ml 480 ml 200 ml 360 ml Output Total 700 ml 1000 ml 1500 ml Balance 150 ml -520 ml 200 ml -1140 ml Intake Oral 150 ml 480 ml 360 ml IV Total 200 ml Packed Cells 700 ml Output Urine Total 700 ml 1000 ml 1500 ml # Bowel Movements 1 1 Result Diagram: 10/07/17 0630 10/07/17 0630 Imaging Last Impressions Chest X-Ray 10/01/17 0000 Signed Impressions: Service Date/Time: Sunday, October 01, 2017 13:53 - CONCLUSION: No significant change in the right lower lobe infiltrate. Reuben Reece MD Catheter Placement X-Ray 09/24/17 0000 Signed Impressions: Service Date/Time: Sunday, September 24, 2017 11:16 - CONCLUSION: Uncomplicated venous catheter change as above. Luis Leija MD Head CT 09/08/17 0000 Signed Impressions: Service Date/Time: Friday, September 08, 2017 10:22 - CONCLUSION: 1. Focal area of decreased density involving the right parietal lobe. As a new finding from the prior exam. This could relate to a small infarct. MRI of the brain with gadolinium suggested to further evaluate. 2. Small lacunar infarction involving the left centrum semiovale. Ananth Ponce Jr., MD CT Angiography 09/08/17 0000 Signed Impressions: Service Date/Time: Friday, September 08, 2017 10:28 - CONCLUSION: There extensive pulmonary emboli bilaterally. There is near complete cut off of the right lower lobe pulmonary artery. Prominent filling defects on the left as well. These findings were relayed to Dr. Dominguez immediately at the completion of the study. Scattered pulmonary infiltrates, small pleural effusion and extensive mediastinal lymphadenopathy as described above. Karsten Crowder MD Brain MRI 09/08/17 0000 Signed Impressions: Service Date/Time: Friday, September 08, 2017 18:04 - CONCLUSION: Deterioration in the appearance of the scan. At least 3 focal areas of abnormal contrast enhancement are present scattered to in both hemispheres. Given the history this most likely represents developing areas cerebritis. Exam is compromised by an uncooperative patient and motion artifact. These 2 factors make detection of other abnormalities such as cortical cephalitis and meningitis difficult to exclude. Cannot exclude hemorrhagic lesions as well. There is no mass effect evident. Geremias Mauricio MD Chest CT 09/03/17 0000 Signed Impressions: Service Date/Time: Sunday, September 03, 2017 12:41 - CONCLUSION: 1. There are at least 5 pulmonary nodules present bilaterally with the largest measuring 19 mm. None demonstrate cavitation but it is possible that these represent septic emboli. Suggest followup to assess for change. 2. Splenomegaly with subtle wedge-shaped areas of low-density in the mid spleen which could represent infarcts. 3. Mild cardiomegaly in this patient post aortic valve replacement. Low density of the cardiac blood pool suggests anemia. Adalid Galo MD Aorta w/Runoff CTA 09/02/17 0000 Signed Impressions: Service Date/Time: Saturday, September 02, 2017 12:47 - CONCLUSION: Left renal cortical infarction. 5-6 cm length total occlusion of the left superficial femoral artery in the proximal thigh. Nodular parenchymal opacities in the lung bases bilaterally See above discussion. Adalid Dallas MD Renal Ultrasound 09/01/17 0000 Signed Impressions: Service Date/Time: Friday, September 01, 2017 10:53 - CONCLUSION: 1. No evidence of hydronephrosis. 2. Thickening of the urinary bladder wall a 1.1 cm. 3. Prominent splenomegaly. Baldemar Pineda MD Breast Ultrasound 09/01/17 0000 Signed Impressions: Service Date/Time: Friday, September 01, 2017 10:48 - CONCLUSION: Negative targeted right breast ultrasound examination. Adalid Haney MD Lower Extremity Ultrasound 08/31/17 0000 Signed Impressions: Service Date/Time: Thursday, August 31, 2017 21:22 - CONCLUSION: 1. No sonographic evidence for lower extremity DVT. 2. Incidental note of bilateral inguinal adenopathy with the largest on the right measuring 3.3 cm and the largest on the left measuring 2.6 cm. This finding is nonspecific but is typically reactive in etiology. Luis Leija MD Objective Remarks AAOx3 NAD Clear lungs BL S1S2 4/6 systolic ejection murmur +3 BL lower extremity edema. Erythema improved, left foot very tender to palpation. . Dark discoloration left toes you 3rd and 5th. pulses not palpable due to edema. Good capillary refill. Procedures Exchange of right IJ central line Date of Insertion: Sep 24, 2017 Line: Central Venous Catheter Side: Right Location: Internal, Jugular A/P Problem List: (1) Prosthetic valve endocarditis ICD Code: T82.6XXA - Infection and inflammatory reaction due to cardiac valve prosthesis, initial encounter Status: Acute (2) Bacteremia ICD Code: R78.81 - Bacteremia (3) Septic pulmonary embolism ICD Code: I26.90 - Septic pulmonary embolism without acute cor pulmonale Status: Acute (4) IVDU (intravenous drug user) ICD Code: F19.90 - Other psychoactive substance use, unspecified, uncomplicated (5) Anemia ICD Code: D64.9 - Anemia, unspecified Status: Chronic (6) DUONG (acute kidney injury) ICD Code: N17.9 - Acute kidney failure, unspecified (7) Cellulitis of left lower extremity ICD Code: L03.116 - Cellulitis of left lower limb (8) Purple toe syndrome ICD Code: I75.029 - Atheroembolism of unspecified lower extremity (9) Pleuritic chest pain ICD Code: R07.81 - Pleurodynia Assessment and Plan (1) Prosthetic valve endocarditis Continue IV ampicillin and daptomycin until October 12 per CTS, patient would not benefit from further cardiac surgery. Patient feels she is not getting any better and wants to talk to hospice again. Hospice has been reconsulted. She wants to set up with hospice after completion of antibiotics (2) Bacteremia Plan: Blood cultures obtained on 08/31 growing strep viridans. Subsequent repeat blood cultures negative. 09/24 sp Exchange of Right IJ central line. Continue antibiotics as per ID recommendations. (3) Septic pulmonary embolism Plan: As observed on a CT angiography of the chest obtained on 09/08/17. echocardiogram on 09/08 showed an estimated EF of 50-55%. ++severe tricuspid regurgitation with prosthesis in place. ++2 x 4 cm mobile vegetation was seen on the valve. The right atrium and right ventricle were normal in size and function Hematology following. Goal INR 2.5-3.5 given the presence of a prosthetic aortic valve. Restarted heparin drip since INR subtherapeutic (4) IVDU (intravenous drug user) Plan: Counseled on drug cessation. (5) Anemia Plan: Likely secondary to inflammation/infection. No evidence of bleeding or hemolysis. Monitor hemoglobin and transfuse as needed. (6) DUONG (acute kidney injury) Plan: Nephrology consulted. Possible ATN from vancomycin toxicity or infection. Urine eosinophils were ordered and negative. Diuretics managed by nephrology. Initially on Lasix 20 mg IV twice daily along with albumin. Creatinine Worsening on 09/24 for 1.57-1.62. Later Lasix dose was increased to 40 mg IV twice daily and metolazone added to the regimen. Creatinine then started trending down to 1.34 on 09/28. 10/03 creatinine stable Management as per nephrology. Continue to monitor BUN and creatinine, avoid nephrotoxins, history I's and O's. (7) Cellulitis of left lower extremity Plan: Continue IV antibiotics as per ID. Cellulitis seems to be improving. (8) Purple toe syndrome/PAD Vascular surgery recommended conservative management continue anticoagulation, weightbearing as tolerated and repeat PRANAV in 2-3 weeks Patient also with severe excruciating pain secondary to possible some ischemia. Increase dose of morphine sulfate from 30 mg p.o. every 12 hours to 45 mg p.o. every 12 hours. Counseled regarding narcotic usage. Consider Nitropaste on the left lower extremity if BP improved (9) Pleuritic chest pain Improving control of pleuritic chest pain. Repeat chest x-ray obtained on did not show any significant change in the right lower lobe infiltrate. Discharge Planning Patient with prosthetic valve endocarditis, bacteremia, septic pulmonary embolism and acute kidney injury. Patient still edematous, good urine output on IV diuresis. Will need ID clearance prior to discharge. Problem Qualifiers (1) Prosthetic valve endocarditis: Qualified Codes: T82.6XXA - Infection and inflammatory reaction due to cardiac valve prosthesis, initial encounter (2) Anemia: Qualified Codes: D63.8 - Anemia in other chronic diseases classified elsewhere (3) Purple toe syndrome: Qualified Codes: I75.022 - Atheroembolism of left lower extremity Roby Whitaker MD Oct 07, 2017 10:42
[2017-10-07] MEDS: HYDROmorphone HCL PF 2 MG/ML VIAL IV PUSH PRN ×2 (12:44→20:09)
--- NOTE | 2017-10-07 14:32 | HHI.NPPN ---
Subjective General Problems: Anemia Renal Failure: Acute History of Present Illness This is a 37-year-old female with past medical history of IV drug abuse, history of hepatitis C, narcotic dependency, came to the hospital with complaint of shortness of breath and swelling. Nephrology called to see the patient because of elevated BUN and creatinine. The patient has creatinine of 4.5 on admission which improved and it was staying in the range of 0.6-0.8 until 6 days ago, then it started going up again and now it is 1.7. The patient has increased swelling of the legs and the patient was diagnosed with endocarditis and she has blood culture positive for Strep viridans. Patient has been following with the ID and she was getting furosemide, which was stopped today this morning because of increased creatinine and she was on vancomycin and rifampicin. The last dose of vancomycin seems to be given possibly on 09/09/2017 or even later, but her level was high and the highest level we have was 25.8, which was on 09/09/2017 but on 09/15/2017 it was 23.9. The patient has been actively using IV drugs before she came to the hospital and noticed to have more swelling in her legs. She is complaining of generalized body pain. There is no nausea, vomiting. Denies any diarrhea. Her appetite is normal. Additional Remarks Patient is alert, with nasal cannula, siting, still complaining of leg edema and pain, more in left leg. Review of Systems General Constitutional: Fatigue Respiratory Lungs: SOB Respiratory Remarks improving Cardiovascular Cardiac: Edema, FOREMAN Cardiac Remarks Denies CP Gastrointestinal GI Remarks denies abdominal pain Objective Data Data Vital Signs Date Time Temp Pulse Resp B/P (MAP) Pulse Ox O2 Delivery O2 Flow Rate FiO2 10/07/17 12:00 98.2 93 22 89/50 (63) 94 10/07/17 11:00 96 10/07/17 08:00 Nasal Cannula 2.00 Humidified 10/07/17 08:00 98.5 102 22 105/56 (72) 98 10/07/17 07:28 80 10/07/17 05:54 97.6 92 20 95/55 (68) 94 10/07/17 04:00 87 10/07/17 01:25 90/58 (69) 10/07/17 00:00 98.3 100 20 89/56 (67) 94 10/07/17 00:00 100 10/07/17 00:00 88/50 (63) 10/06/17 23:55 Nasal Cannula 2.00 Humidified 10/06/17 21:00 98 Nasal Cannula 2.00 10/06/17 20:00 84 10/06/17 20:00 98.2 86 20 107/68 (81) 94 10/06/17 16:05 103 10/06/17 16:00 Nasal Cannula 2.00 Humidified 10/06/17 16:00 98.2 88 20 110/58 (75) 98 -: 10/07/17 0630 10/07/17 0630 Microbiology 10/06/17 Stool Occult Blood (DONNY) - Final, Complete HEMOCCULT NEGATIVE Physical Exam General Appearance: No Acute Distress, Anxious Eyes Eye Exam: Pupils Equal Throat Throat Exam: Oral Mucosa Reeds & Moist Neck Neck Exam: Neck Supple Pulmonary Resp Exam: Clear Bilaterally Cardiology CV Exam: Regular, Normal Sinus Rhythm Gastrointestinal/Abdomen GI Exam: Soft, Non-Tender Integumentary Skin Exam: Dry, Intact Extremeties Extremities Exam: Moderate Edema (Left leg with mild redness.), Pitting Edema, Dependent Edema Neurologic Neuro Exam: Alert, Awake, Oriented Psychiatric Psych Exam: Appropriate Responses Assessment/Plan Discussed Condition With: Patient Assessment Summary: DUONG/Acute Renal Failure Problem List: (1) Acute kidney injury ICD Codes: N17.9 - Acute kidney failure, unspecified Status: Acute Plan: DUONG likely due to vancomycin toxicity, post-infectious GN is unlikely. Possibility of ATN or pre renal. Urine eosinophils negative, complements wnl Creatinine stable Good UOP Plan Hypokalemia at 2.9 replacement given Low magnesium level replacement given Continue Lasix 40 mg IV BID and metolazone for edema Continue to monitor BMP and UOP Encouraged to elevate legs throughout day Avoid nephrotoxins when possible. Fluid restriction in place. BP is on lower side, added Midodrine. Continue diuretics, K is low and replaced. Lasix has been on hold when the BP is low. Low BP is still not better, on Midodrine. (2) Prosthetic valve endocarditis ICD Codes: T82.6XXA - Infection and inflammatory reaction due to cardiac valve prosthesis, initial encounter Status: Acute Plan: septic endocarditis with strep viridans IV drug use, pulmonary emboli as well. Continues antibiotics per ID continue renal dosing antibiotics. (3) Peripheral arterial occlusive disease ICD Codes: I77.9 - Disorder of arteries and arterioles, unspecified Plan: seen with vascular, continue medical management Hold contrast studies as possible. (4) Hepatitis C ICD Codes: B19.20 - Unspecified viral hepatitis C without hepatic coma Status: Chronic Problem Qualifiers (1) Prosthetic valve endocarditis: Qualified Codes: T82.6XXA - Infection and inflammatory reaction due to cardiac valve prosthesis, initial encounter Randal Salinas MD Oct 07, 2017 14:32
[2017-10-07] MEDS ORDERED: POTASSIUM CHLORIDE 20 MEQ CONTROLLED RELEASE TAB PO ONE (14:45)
[2017-10-07] MEDS ORDERED: WARFARIN SOD 2 MG TAB PO ONE (16:00)
[2017-10-07] MEDS: WARFARIN SOD 2 MG TAB PO SCH (16:31)
[2017-10-07] MEDS: DAPTOmycin INJ 500 MG in SODIUM CHLORIDE 0.9% INJ 100 ML IV SCH (20:05)
[2017-10-08] MEDS: HEPARIN-D5W 25,000 U/250 ML 250 ML IV PRN (00:42)
[2017-10-08] MEDS: AMPICILLIN INJ 2,000 MG in SODIUM CHLORIDE 0.9% INJ 100 ML IV SCH ×2 (01:16→08:48)
[2017-10-08] MEDS: HYDROmorphone HCL PF 2 MG/ML VIAL IV PUSH PRN (02:19)
[2017-10-08 04:00] VITALS: BP 93/73; PULSE 101; PULSE 98; RESP 18; TEMP 97.9; O2SAT 91
[2017-10-08] MEDS: MIDODRINE 5 MG TAB PO SCH (06:58)
[2017-10-08 07:13] LABS: AUTOMATED NEUTROPHIL # 12.2 TH/MM3 (1.8-7.7); BASOPHIL # 0.1 TH/MM3 (0-0.2); BASOPHIL % 0.6 % (0.0-2.0); EOSINOPHIL # 0.1 TH/MM3 (0-0.4); EOSINOPHIL % 0.8 % (0.0-4.0); HEMATOCRIT 28.5 % (35.0-46.0); HEMOGLOBIN 8.9 GM/DL (11.6-15.3); LYMPH % 12.1 % (9.0-44.0); LYMPHOCYTE # 1.8 TH/MM3 (1.0-4.8); MEAN CELL VOLUME 78.5 FL (80.0-100.0); MEAN CORPUSCULAR HEMOGLOBIN 24.4 PG (27.0-34.0); MEAN CORPUSCULAR HGB CONC 31.1 % (32.0-36.0); MEAN PLATELET VOLUME 8.4 FL (7.0-11.0); MONO % 5.8 % (0.0-8.0); MONOCYTE # 0.9 TH/MM3 (0-0.9); NEUT % 80.7 % (16.0-70.0); PLATELET COUNT 100 TH/MM3 (150-450); RED BLOOD COUNT 3.63 MIL/MM3 (4.00-5.30); RED CELL DISTRIBUTION WIDTH 23.2 % (11.6-17.2); WHITE BLOOD COUNT 15.1 TH/MM3 (4.0-11.0)
[2017-10-08 07:27] LABS: CALCIUM 8.6 MG/DL (8.5-10.1)
[2017-10-08 07:28] LABS: INTERNATIONAL NORMALIZED RATIO 1.5 RATIO; PROTHROMBIN TIME - PATIENT 15.6 SEC (9.8-11.6)
[2017-10-08 07:41] LABS: BICARBONATE 27.8 MEQ/L (21.0-32.0); CREATININE 0.96 MG/DL (0.50-1.00); MAGNESIUM 1.5 MG/DL (1.5-2.5)
[2017-10-08 08:01] VITALS: BP 94/61; PULSE 100; PULSE 99; RESP 17; TEMP 98.3; O2SAT 94
[2017-10-08] MEDS: POTASSIUM CHLORIDE 10 MEQ CONTROLLED RELEASE TAB PO SCH (08:49)
[2017-10-08] MEDS: METOLAZONE 2.5 MG TAB PO SCH (08:49)
[2017-10-08] MEDS: MORPHINE SULFATE 15 MG CONTROLLED RELEASE TAB PO SCH (08:50)
[2017-10-08] MEDS: DOCUSATE SODIUM 50 MG/SENNA 8.6 MG TAB PO SCH (08:50)
[2017-10-08] MEDS: FUROSEMIDE 20 MG/2 ML VIAL IV PUSH SCH (08:51)
[2017-10-08] MEDS: SODIUM CHLORIDE 0.9% FLUSH 10 ML FLUSH IV FLUSH SCH (08:51)
[2017-10-08] MEDS: RESP: ALBUTEROL 2.5 MG/3 ML NEB (PRN) NEB (09:55)
[2017-10-08 09:58] VITALS: O2SAT 94
--- NOTE | 2017-10-08 11:20 | HHI.PR ---
Subjective Remarks Follow-up endocarditis and left lower extremity cellulitis. Patient has no new complaints continues to have stable left lower extremity pain. Discussed with nursing Objective Vitals Vital Signs Date Time Temp Pulse Resp B/P (MAP) Pulse Ox O2 Delivery O2 Flow Rate FiO2 10/08/17 09:58 94 Nasal Cannula 2.00 10/08/17 08:01 98.3 100 17 94/61 (72) 94 10/08/17 08:00 Nasal Cannula 2.00 10/08/17 04:00 97.9 101 18 93/73 (80) 91 10/08/17 04:00 98 10/08/17 00:17 Nasal Cannula 2.00 Humidified 10/07/17 20:00 97.9 93 16 102/77 (85) 96 10/07/17 20:00 90 10/07/17 17:49 94 Nasal Cannula 2.00 10/07/17 16:23 87 10/07/17 16:00 98.6 86 22 89/52 (64) 94 10/07/17 16:00 Nasal Cannula 2.00 Humidified 10/07/17 12:00 Nasal Cannula 2.00 Humidified 10/07/17 12:00 98.2 93 22 89/50 (63) 94 I/O 10/07/17 10/07/17 10/07/17 10/08/17 10/08/17 10/08/17 07:00 15:00 23:00 07:00 15:00 23:00 Intake Total 360 ml 680 ml 490 ml Output Total 1500 ml 800 ml Balance -1140 ml -120 ml 490 ml Intake Oral 360 ml 480 ml 240 ml IV Total 200 ml 250 ml Output Urine Total 1500 ml 800 ml # Voids 4 # Bowel Movements 1 2 0 Result Diagram: 10/08/17 0655 10/08/17 0655 Imaging Last Impressions Chest X-Ray 10/01/17 0000 Signed Impressions: Service Date/Time: Sunday, October 01, 2017 13:53 - CONCLUSION: No significant change in the right lower lobe infiltrate. Reuben Reece MD Catheter Placement X-Ray 09/24/17 0000 Signed Impressions: Service Date/Time: Sunday, September 24, 2017 11:16 - CONCLUSION: Uncomplicated venous catheter change as above. Luis Leija MD Head CT 09/08/17 0000 Signed Impressions: Service Date/Time: Friday, September 08, 2017 10:22 - CONCLUSION: 1. Focal area of decreased density involving the right parietal lobe. As a new finding from the prior exam. This could relate to a small infarct. MRI of the brain with gadolinium suggested to further evaluate. 2. Small lacunar infarction involving the left centrum semiovale. Ananth Ponce Jr., MD CT Angiography 09/08/17 0000 Signed Impressions: Service Date/Time: Friday, September 08, 2017 10:28 - CONCLUSION: There extensive pulmonary emboli bilaterally. There is near complete cut off of the right lower lobe pulmonary artery. Prominent filling defects on the left as well. These findings were relayed to Dr. Dominguez immediately at the completion of the study. Scattered pulmonary infiltrates, small pleural effusion and extensive mediastinal lymphadenopathy as described above. Karsten Crowder MD Brain MRI 09/08/17 0000 Signed Impressions: Service Date/Time: Friday, September 08, 2017 18:04 - CONCLUSION: Deterioration in the appearance of the scan. At least 3 focal areas of abnormal contrast enhancement are present scattered to in both hemispheres. Given the history this most likely represents developing areas cerebritis. Exam is compromised by an uncooperative patient and motion artifact. These 2 factors make detection of other abnormalities such as cortical cephalitis and meningitis difficult to exclude. Cannot exclude hemorrhagic lesions as well. There is no mass effect evident. Geremias Mauricio MD Chest CT 09/03/17 0000 Signed Impressions: Service Date/Time: Sunday, September 03, 2017 12:41 - CONCLUSION: 1. There are at least 5 pulmonary nodules present bilaterally with the largest measuring 19 mm. None demonstrate cavitation but it is possible that these represent septic emboli. Suggest followup to assess for change. 2. Splenomegaly with subtle wedge-shaped areas of low-density in the mid spleen which could represent infarcts. 3. Mild cardiomegaly in this patient post aortic valve replacement. Low density of the cardiac blood pool suggests anemia. Adalid Galo MD Aorta w/Runoff CTA 09/02/17 0000 Signed Impressions: Service Date/Time: Saturday, September 02, 2017 12:47 - CONCLUSION: Left renal cortical infarction. 5-6 cm length total occlusion of the left superficial femoral artery in the proximal thigh. Nodular parenchymal opacities in the lung bases bilaterally See above discussion. Adalid Dallas MD Renal Ultrasound 09/01/17 0000 Signed Impressions: Service Date/Time: Friday, September 01, 2017 10:53 - CONCLUSION: 1. No evidence of hydronephrosis. 2. Thickening of the urinary bladder wall a 1.1 cm. 3. Prominent splenomegaly. Baldemar Pineda MD Breast Ultrasound 09/01/17 0000 Signed Impressions: Service Date/Time: Friday, September 01, 2017 10:48 - CONCLUSION: Negative targeted right breast ultrasound examination. Adalid Haney MD Lower Extremity Ultrasound 08/31/17 0000 Signed Impressions: Service Date/Time: Thursday, August 31, 2017 21:22 - CONCLUSION: 1. No sonographic evidence for lower extremity DVT. 2. Incidental note of bilateral inguinal adenopathy with the largest on the right measuring 3.3 cm and the largest on the left measuring 2.6 cm. This finding is nonspecific but is typically reactive in etiology. Luis Leija MD Objective Remarks AAOx3 NAD Clear lungs BL S1S2 4/6 systolic ejection murmur +3 BL lower extremity edema. Erythema improved, left drill press tender to palpation. . Dark discoloration left toes you 3rd and 5th. pulses not palpable due to edema. Good capillary refill. Procedures Exchange of right IJ central line Date of Insertion: Sep 24, 2017 Line: Central Venous Catheter Side: Right Location: Internal, Jugular A/P Problem List: (1) Prosthetic valve endocarditis ICD Code: T82.6XXA - Infection and inflammatory reaction due to cardiac valve prosthesis, initial encounter Status: Acute (2) Bacteremia ICD Code: R78.81 - Bacteremia (3) Septic pulmonary embolism ICD Code: I26.90 - Septic pulmonary embolism without acute cor pulmonale Status: Acute (4) IVDU (intravenous drug user) ICD Code: F19.90 - Other psychoactive substance use, unspecified, uncomplicated (5) Anemia ICD Code: D64.9 - Anemia, unspecified Status: Chronic (6) DUONG (acute kidney injury) ICD Code: N17.9 - Acute kidney failure, unspecified (7) Cellulitis of left lower extremity ICD Code: L03.116 - Cellulitis of left lower limb (8) Purple toe syndrome ICD Code: I75.029 - Atheroembolism of unspecified lower extremity (9) Pleuritic chest pain ICD Code: R07.81 - Pleurodynia Assessment and Plan (1) Prosthetic valve endocarditis Continue IV ampicillin and daptomycin until October 12 per CTS, patient would not benefit from further cardiac surgery. Patient feels she is not getting any better and wants to talk to hospice again. Hospice has been reconsulted. She wants to set up with hospice after completion of antibiotics (2) Bacteremia Plan: Blood cultures obtained on 08/31 growing strep viridans. Subsequent repeat blood cultures negative. 09/24 sp Exchange of Right IJ central line. Continue antibiotics as per ID recommendations. (3) Septic pulmonary embolism Plan: As observed on a CT angiography of the chest obtained on 09/08/17. echocardiogram on 09/08 showed an estimated EF of 50-55%. ++severe tricuspid regurgitation with prosthesis in place. ++2 x 4 cm mobile vegetation was seen on the valve. The right atrium and right ventricle were normal in size and function Hematology following. Goal INR 2.5-3.5 given the presence of a prosthetic aortic valve. Restarted heparin drip since INR subtherapeutic (4) IVDU (intravenous drug user) Plan: Counseled on drug cessation. (5) Anemia Plan: Likely secondary to inflammation/infection. No evidence of bleeding or hemolysis. Monitor hemoglobin and transfuse as needed. (6) DUONG (acute kidney injury) Plan: Nephrology consulted. Possible ATN from vancomycin toxicity or infection. Urine eosinophils were ordered and negative. Diuretics managed by nephrology. Initially on Lasix 20 mg IV twice daily along with albumin. Creatinine Worsening on 09/24 for 1.57-1.62. Later Lasix dose was increased to 40 mg IV twice daily and metolazone added to the regimen. Creatinine then started trending down to 1.34 on 09/28. Management as per nephrology. Continue to monitor BUN and creatinine, avoid nephrotoxins, I's and O's. (7) Cellulitis of left lower extremity Plan: Continue IV antibiotics as per ID. Cellulitis seems to be improving. (8) Purple toe syndrome/PAD Vascular surgery recommended conservative management continue anticoagulation, weightbearing as tolerated and repeat PRANAV in 2-3 weeks Patient also with severe excruciating pain secondary to possible some ischemia. Increase dose of morphine sulfate from 30 mg p.o. every 12 hours to 45 mg p.o. every 12 hours. Counseled regarding narcotic usage. Consider Nitropaste on the left lower extremity if BP improved (9) Pleuritic chest pain Improving control of pleuritic chest pain. Repeat chest x-ray obtained on did not show any significant change in the right lower lobe infiltrate. Discharge Planning Patient with prosthetic valve endocarditis, bacteremia, septic pulmonary embolism and acute kidney injury. Patient still edematous, good urine output on IV diuresis. Will need ID clearance prior to discharge. Problem Qualifiers (1) Prosthetic valve endocarditis: Qualified Codes: T82.6XXA - Infection and inflammatory reaction due to cardiac valve prosthesis, initial encounter (2) Anemia: Qualified Codes: D63.8 - Anemia in other chronic diseases classified elsewhere (3) Purple toe syndrome: Qualified Codes: I75.022 - Atheroembolism of left lower extremity Roby Whitaker MD Oct 08, 2017 11:20
[2017-10-08 12:00] VITALS: PULSE 97
[2017-10-08] MEDS ORDERED: MIDODRINE 5 MG TAB PO SCH (12:00)
[2017-10-08 12:01] VITALS: BP 92/59; PULSE 99; RESP 18; TEMP 99.1; O2SAT 90
[2017-10-08] MEDS: ACETAMINOPHEN/HYDROcodone 325 MG/10 MG TAB PO PRN (12:48)
[2017-10-08] MEDS ORDERED: MIDAZOLAM HCL 5 MG/ML VIAL (1 ML) ONE (14:28)
--- NOTE | 2017-10-08 14:57 | HHI.NPPN ---
Subjective General Problems: Anemia Renal Failure: Acute History of Present Illness This is a 37-year-old female with past medical history of IV drug abuse, history of hepatitis C, narcotic dependency, came to the hospital with complaint of shortness of breath and swelling. Nephrology called to see the patient because of elevated BUN and creatinine. The patient has creatinine of 4.5 on admission which improved and it was staying in the range of 0.6-0.8 until 6 days ago, then it started going up again and now it is 1.7. The patient has increased swelling of the legs and the patient was diagnosed with endocarditis and she has blood culture positive for Strep viridans. Patient has been following with the ID and she was getting furosemide, which was stopped today this morning because of increased creatinine and she was on vancomycin and rifampicin. The last dose of vancomycin seems to be given possibly on 09/09/2017 or even later, but her level was high and the highest level we have was 25.8, which was on 09/09/2017 but on 09/15/2017 it was 23.9. The patient has been actively using IV drugs before she came to the hospital and noticed to have more swelling in her legs. She is complaining of generalized body pain. There is no nausea, vomiting. Denies any diarrhea. Her appetite is normal. Additional Remarks Patient is complaining of SOB just finished breathing treatment. Lower extremity edema and pain. (Deena Oh) Review of Systems General Constitutional: Fatigue (Deena Oh) Respiratory Lungs: SOB Respiratory Remarks improving (Deena Oh) Cardiovascular Cardiac: Edema, FOREMAN Cardiac Remarks Denies CP (Deena Oh) Gastrointestinal GI Remarks denies abdominal pain (Deena Oh) Objective Data Data Vital Signs Date Time Temp Pulse Resp B/P (MAP) Pulse Ox O2 Delivery O2 Flow Rate FiO2 10/08/17 12:01 99.1 99 18 92/59 (70) 90 10/08/17 09:58 94 Nasal Cannula 2.00 10/08/17 08:01 98.3 100 17 94/61 (72) 94 10/08/17 08:00 Nasal Cannula 2.00 10/08/17 04:00 97.9 101 18 93/73 (80) 91 4/2/18 04:00 98 10/08/17 00:17 Nasal Cannula 2.00 Humidified 10/07/17 20:00 97.9 93 16 102/77 (85) 96 10/07/17 20:00 90 10/07/17 17:49 94 Nasal Cannula 2.00 10/07/17 16:23 87 10/07/17 16:00 98.6 86 22 89/52 (64) 94 10/07/17 16:00 Nasal Cannula 2.00 Humidified (Deena Oh) -: 10/08/17 0655 10/08/17 0655 Physical Exam General Appearance: No Acute Distress, Anxious (Deena Oh) Eyes Eye Exam: Pupils Equal (Deena OhP) Throat Throat Exam: Oral Mucosa [place] & Moist (Deena OhP) Neck Neck Exam: Neck Supple (Deena Oh [employer]) Pulmonary Resp Exam: Clear Bilaterally (Deena OhP) Cardiology CV Exam: Regular, Normal Sinus Rhythm (Deena OhP) Gastrointestinal/Abdomen GI Exam: Soft, Non-Tender (Deena Oh [employer]) Integumentary Skin Exam: Dry, Intact (Deena OhP) Extremeties Extremities Exam: Moderate Edema (Left leg with mild redness.), Pitting Edema, Dependent Edema (Deena Oh [employer]) Neurologic Neuro Exam: Alert, Awake, Oriented (Deena OhP) Psychiatric Psych Exam: Appropriate Responses (Deena Oh) Assessment/Plan Discussed Condition With: Patient Assessment Summary: DUONG/Acute Renal Failure Problem List: (1) Acute kidney injury ICD Codes: N17.9 - Acute kidney failure, unspecified Status: Acute Plan: DUONG likely due to vancomycin toxicity, post-infectious GN is unlikely. Possibility of ATN or pre renal. Urine eosinophils negative, complements wnl Creatinine stable Good UOP SBP in the 90's Plan Continue midodrine of hypotension Continue Lasix 40 mg BID and metolazone for edema Lasix is held when Hypotensive Continue to monitor BMP and UOP Encouraged to elevate legs throughout day Avoid nephrotoxins when possible. Fluid restriction in place. (2) Prosthetic valve endocarditis ICD Codes: T82.6XXA - Infection and inflammatory reaction due to cardiac valve prosthesis, initial encounter Status: Acute Plan: septic endocarditis with strep viridans IV drug use, pulmonary emboli as well. Continues antibiotics per ID continue renal dosing antibiotics. (3) Peripheral arterial occlusive disease ICD Codes: I77.9 - Disorder of arteries and arterioles, unspecified Plan: seen with vascular, continue medical management Hold contrast studies as possible. (4) Hepatitis C ICD Codes: B19.20 - Unspecified viral hepatitis C without hepatic coma Status: Chronic (Deena Oh) Problem List: (1) Acute kidney injury ICD Codes: N17.9 - Acute kidney failure, unspecified Status: Acute Plan: DUONG likely due to vancomycin toxicity, post-infectious GN is unlikely. Possibility of ATN or pre renal. Urine eosinophils negative, complements wnl Creatinine stable Good UOP SBP in the 90's Plan Continue midodrine of hypotension Continue Lasix 40 mg BID and metolazone for edema Lasix is held when Hypotensive Continue to monitor BMP and UOP Encouraged to elevate legs throughout day Avoid nephrotoxins when possible. Fluid restriction in place. Creatinine was stable. Patient develop cardiac arrest, ACLS done and pronounced . (2) Prosthetic valve endocarditis ICD Codes: T82.6XXA - Infection and inflammatory reaction due to cardiac valve prosthesis, initial encounter Status: Acute Plan: septic endocarditis with strep viridans IV drug use, pulmonary emboli as well. Continues antibiotics per ID continue renal dosing antibiotics. (3) Peripheral arterial occlusive disease ICD Codes: I77.9 - Disorder of arteries and arterioles, unspecified Plan: seen with vascular, continue medical management Hold contrast studies as possible. (4) Hepatitis C ICD Codes: B19.20 - Unspecified viral hepatitis C without hepatic coma Status: Chronic (Randal Salinas MD) Problem Qualifiers (1) Prosthetic valve endocarditis: Qualified Codes: T82.6XXA - Infection and inflammatory reaction due to cardiac valve prosthesis, initial encounter Deena Oh Oct 08, 2017 14:57 Randal Salinas MD Oct 08, 2017 18:03
--- NOTE | 2017-10-08 15:09 | PD.PROCEDR ---
Procedure Note Procedure CODE BLUE Time CODE BLUE called 1422 1425 - asystole. C1 ambulance epinephrine and CPR initiated. Patient with breathing and actually sat up. Heart rates in the 110s. Saturations between 74 and 87%. Sinus tach from 1426 -1430. Due to severe cyanosis patient was originally intubated receiving 2 mg midazolam with 8.0 ET tube with 4.0 Lg blade. Positive color change rest is also clear bilaterally. 1430 patient asystole. Patient received 2 ampules of bicarbonate, 1 ampule of calcium chloride and 7 ampules epinephrine. During this time, patient was bolused with normal saline and was on norepinephrine drip at 20 g per minute. Patient also went into V. fib and was defibrillated with 200 J 2 during this code. Patient received 3 mg epinephrine bolus 1. Code terminated 1438. Discussed with her. Boyfriend updated bedside. Francis Dominguez MD Oct 08, 2017 15:09
--- NOTE | 2017-10-08 15:17 | HHI.HCPN ---
Notified of Code Blue event ; pt w PEA arrest, CPR underway. Call to pt mother Fany who is HCS to provide update- review of CPR in process, pt past week condition/tx, and pending d/c w hospice Sunday. Pt met with hospice earlier today, and indicated would proceed with enrollment Sunday after completion of antibiotics. PT mother wishes to speak w/ pt sig other before making decisions , requests CPR continue. Call back from pt mother, she requests CPR continue, pt sig other en route. CPR Continues. Critical care Dr Dominguez called pt mother Fany, updated her, she request continue Full Code. CPR continues. Resuscitation efforts terminated per critical care. Pt significant other arrived, updated him, support provided by megan chin. . Joy Ceja Oct 08, 2017 15:17
[2017-10-08] MEDS ORDERED: WARFARIN SOD 2.5 MG TAB PO SCH (16:00)
--- NOTE | 2017-10-08 16:58 | DEATH SUM ---
Summary Demographics Date Pronounced : Oct 08, 2017 Time Of : 1458 Pronounced By: Dr. Dominguez Preliminary Cause of : Cardiac arrest Roby Whitaker MD Oct 08, 2017 16:58
--- NOTE | 2017-10-08 17:01 | HHI.DS ---
Summary Note Date of : Oct 08, 2017 Time Of : 1458 Admission Date Aug 31, 2017 at 21:23 Admitting Diagnosis endocarditis, severe sepsis, CHF, IVDA, Acute kidney failure Diagnosis at Time of : (1) Prosthetic valve endocarditis ICD Code: T82.6XXA - Infection and inflammatory reaction due to cardiac valve prosthesis, initial encounter Diagnosis: Principal (2) Bacteremia ICD Code: R78.81 - Bacteremia Diagnosis: Principal (3) Septic pulmonary embolism ICD Code: I26.90 - Septic pulmonary embolism without acute cor pulmonale Diagnosis: Principal (4) IVDU (intravenous drug user) ICD Code: F19.90 - Other psychoactive substance use, unspecified, uncomplicated Diagnosis: Principal (5) Anemia ICD Code: D64.9 - Anemia, unspecified Diagnosis: Principal (6) DUONG (acute kidney injury) ICD Code: N17.9 - Acute kidney failure, unspecified Diagnosis: Principal (7) Cellulitis of left lower extremity ICD Code: L03.116 - Cellulitis of left lower limb Diagnosis: Principal (8) Purple toe syndrome ICD Code: I75.029 - Atheroembolism of unspecified lower extremity Diagnosis: Principal (9) Pleuritic chest pain ICD Code: R07.81 - Pleurodynia Diagnosis: Principal Procedures Exchange of right IJ central line Brief History 36-year-old female that presents to the ED for evaluation of shortness of breath and swelling. 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 Patient initially did not mention to anybody that she was doing drugs but she did tell me that she injected herself about 4 days ago. She uses Dilaudid. She states that she's been having fevers. Patient is somewhat somnolent and hard to assess she doesn't really provide much information. Family members at the bedside and he provides more information about the heart. Per patient she'll he takes 2 medications. Patient asked if she is taking any antibiotics and she said yes but when I ask her what kind is she is taking currently she states that she has not been on antibiotics for some time. Patient apparently does follow with a local hydrant setter but she cannot tell me the name of it. She states that she's been having swelling to her legs for the past month. She denies any recent travel or injury. No other medical issues at this time. No allergies to medication. CBC/BMP: 10/08/17 0655 10/08/17 0655 Significant Findings Laboratory Tests Test 10/05/17 18:30 10/06/17 06:20 10/06/17 08:30 10/06/17 18:03 Potassium Level 2.9 MEQ/L (3.5-5.1) 2.9 MEQ/L (3.5-5.1) White Blood Count 14.7 TH/MM3 (4.0-11.0) Red Blood Count 3.85 MIL/MM3 (4.00-5.30) Hemoglobin 9.5 GM/DL (11.6-15.3) Hematocrit 29.9 % (35.0-46.0) Mean Corpuscular Volume 77.5 FL (80.0-100.0) Mean Corpuscular Hemoglobin 24.7 PG (27.0-34.0) Mean Corpuscular Hemoglobin Concent 31.8 % (32.0-36.0) Red Cell Distribution Width 22.5 % (11.6-17.2) Platelet Count 119 TH/MM3 (150-450) Neutrophils (%) (Auto) 81.1 % (16.0-70.0) Neutrophils # (Auto) 11.9 TH/MM3 (1.8-7.7) Blood Urea Nitrogen 20 MG/DL (7-18) Creatinine 1.05 MG/DL (0.50-1.00) Calcium Level 8.4 MG/DL (8.5-10.1) Sodium Level 132 MEQ/L (136-145) Chloride Level 89 MEQ/L (98-107) Carbon Dioxide Level 34.6 MEQ/L (21.0-32.0) Estimat Glomerular Filtration Rate 59 ML/MIN (>89) Prothrombin Time 14.3 SEC (9.8-11.6) Activated Partial Thromboplast Time 31.0 SEC (24.3-30.1) 35.5 SEC (24.3-30.1) Test 10/07/17 02:00 10/07/17 06:30 10/07/17 09:50 10/07/17 18:20 Prothrombin Time 14.7 SEC (9.8-11.6) White Blood Count 13.2 TH/MM3 (4.0-11.0) Red Blood Count 3.49 MIL/MM3 (4.00-5.30) Hemoglobin 8.6 GM/DL (11.6-15.3) Hematocrit 26.9 % (35.0-46.0) Mean Corpuscular Volume 77.1 FL (80.0-100.0) Mean Corpuscular Hemoglobin 24.7 PG (27.0-34.0) Red Cell Distribution Width 22.3 % (11.6-17.2) Platelet Count 110 TH/MM3 (150-450) Neutrophils (%) (Auto) 81.8 % (16.0-70.0) Neutrophils # (Auto) 10.8 TH/MM3 (1.8-7.7) Sodium Level 133 MEQ/L (136-145) Potassium Level 2.9 MEQ/L (3.5-5.1) Chloride Level 91 MEQ/L (98-107) Carbon Dioxide Level 35.9 MEQ/L (21.0-32.0) Estimat Glomerular Filtration Rate 69 ML/MIN (>89) Activated Partial Thromboplast Time 33.7 SEC (24.3-30.1) 40.1 SEC (24.3-30.1) Test 10/08/17 01:20 10/08/17 06:55 10/08/17 13:25 White Blood Count 15.1 TH/MM3 (4.0-11.0) Red Blood Count 3.63 MIL/MM3 (4.00-5.30) Hemoglobin 8.9 GM/DL (11.6-15.3) Hematocrit 28.5 % (35.0-46.0) Mean Corpuscular Volume 78.5 FL (80.0-100.0) Mean Corpuscular Hemoglobin 24.4 PG (27.0-34.0) Mean Corpuscular Hemoglobin Concent 31.1 % (32.0-36.0) Red Cell Distribution Width 23.2 % (11.6-17.2) Platelet Count 100 TH/MM3 (150-450) Neutrophils (%) (Auto) 80.7 % (16.0-70.0) Neutrophils # (Auto) 12.2 TH/MM3 (1.8-7.7) Prothrombin Time 15.6 SEC (9.8-11.6) Activated Partial Thromboplast Time 42.4 SEC (24.3-30.1) 37.8 SEC (24.3-30.1) Sodium Level 133 MEQ/L (136-145) Chloride Level 96 MEQ/L (98-107) Estimat Glomerular Filtration Rate 66 ML/MIN (>89) Imaging Last Impressions Chest X-Ray 09/10/17 0600 Signed Impressions: Service Date/Time: Sunday, September 10, 2017 03:52 - CONCLUSION: There is a small to moderate size right pleural effusion with associated volume loss and/or airspace consolidation. The pleural effusion has increased from the prior examination. Adalid Galo MD Head CT 09/08/17 0000 Signed Impressions: Service Date/Time: Friday, September 08, 2017 10:22 - CONCLUSION: 1. Focal area of decreased density involving the right parietal lobe. As a new finding from the prior exam. This could relate to a small infarct. MRI of the brain with gadolinium suggested to further evaluate. 2. Small lacunar infarction involving the left centrum semiovale. Ananth Ponce Jr., MD CT Angiography 09/08/17 Signed Impressions: Service Date/Time: Friday, September 08, 2017 10:28 - CONCLUSION: There extensive pulmonary emboli bilaterally. There is near complete cut off of the right lower lobe pulmonary artery. Prominent filling defects on the left as well. These findings were relayed to Dr. Dominguez immediately at the completion of the study. Scattered pulmonary infiltrates, small pleural effusion and extensive mediastinal lymphadenopathy as described above. Karsten Crowder MD Brain MRI 09/08/17 Signed Impressions: Service Date/Time: Friday, September 08, 2017 18:04 - CONCLUSION: Deterioration in the appearance of the scan. At least 3 focal areas of abnormal contrast enhancement are present scattered to in both hemispheres. Given the history this most likely represents developing areas cerebritis. Exam is compromised by an uncooperative patient and motion artifact. These 2 factors make detection of other abnormalities such as cortical cephalitis and meningitis difficult to exclude. Cannot exclude hemorrhagic lesions as well. There is no mass effect evident. Geremias Mauricio MD Chest CT 09/03/17 0000 Signed Impressions: Service Date/Time: Sunday, September 03, 2017 12:41 - CONCLUSION: 1. There are at least 5 pulmonary nodules present bilaterally with the largest measuring 19 mm. None demonstrate cavitation but it is possible that these represent septic emboli. Suggest followup to assess for change. 2. Splenomegaly with subtle wedge-shaped areas of low-density in the mid spleen which could represent infarcts. 3. Mild cardiomegaly in this patient post aortic valve replacement. Low density of the cardiac blood pool suggests anemia. Adalid Galo MD Aorta w/Runoff CTA 09/02/17 0000 Signed Impressions: Service Date/Time: Saturday, September 02, 2017 12:47 - CONCLUSION: Left renal cortical infarction. 5-6 cm length total occlusion of the left superficial femoral artery in the proximal thigh. Nodular parenchymal opacities in the lung bases bilaterally See above discussion. Adalid Dallas MD Renal Ultrasound 09/01/17 0000 Signed Impressions: Service Date/Time: Friday, September 01, 2017 10:53 - CONCLUSION: 1. No evidence of hydronephrosis. 2. Thickening of the urinary bladder wall a 1.1 cm. 3. Prominent splenomegaly. Baldemar Pineda MD Breast Ultrasound 09/01/17 0000 Signed Impressions: Service Date/Time: Friday, September 01, 2017 10:48 - CONCLUSION: Negative targeted right breast ultrasound examination. Adalid Haney MD Lower Extremity Ultrasound 08/31/17 0000 Signed Impressions: Service Date/Time: Thursday, August 31, 2017 21:22 - CONCLUSION: 1. No sonographic evidence for lower extremity DVT. 2. Incidental note of bilateral inguinal adenopathy with the largest on the right measuring 3.3 cm and the largest on the left measuring 2.6 cm. This finding is nonspecific but is typically reactive in etiology. Luis Leija MD Last Impressions Head CT 09/08/17 0000 Signed Impressions: Service Date/Time: Friday, September 08, 2017 10:22 - CONCLUSION: 1. Focal area of decreased density involving the right parietal lobe. As a new finding from the prior exam. This could relate to a small infarct. MRI of the brain with gadolinium suggested to further evaluate. 2. Small lacunar infarction involving the left centrum semiovale. Ananth Ponce Jr., MD CT Angiography 09/08/17 0000 Signed Impressions: Service Date/Time: Friday, September 08, 2017 10:28 - CONCLUSION: There extensive pulmonary emboli bilaterally. There is near complete cut off of the right lower lobe pulmonary artery. Prominent filling defects on the left as well. These findings were relayed to Dr. Dominguez immediately at the completion of the study. Scattered pulmonary infiltrates, small pleural effusion and extensive mediastinal lymphadenopathy as described above. Karsten Crowder MD Brain MRI 09/08/17 0000 Signed Impressions: Service Date/Time: Friday, September 08, 2017 18:04 - CONCLUSION: Deterioration in the appearance of the scan. At least 3 focal areas of abnormal contrast enhancement are present scattered to in both hemispheres. Given the history this most likely represents developing areas cerebritis. Exam is compromised by an uncooperative patient and motion artifact. These 2 factors make detection of other abnormalities such as cortical cephalitis and meningitis difficult to exclude. Cannot exclude hemorrhagic lesions as well. There is no mass effect evident. Alex Monahan MD Chest X-Ray 09/06/17 0600 Signed Impressions: Service Date/Time: September 03:05 - CONCLUSION: 1. Stable patchy bilateral lower lung zone airspace disease. 2. No significant interval change. Luis Leija MD Chest CT 09/03/17 0000 Signed Impressions: Service Date/Time: Sunday, September 03, 2017 12:41 - CONCLUSION: 1. There are at least 5 pulmonary nodules present bilaterally with the largest measuring 19 mm. None demonstrate cavitation but it is possible that these represent septic emboli. Suggest followup to assess for change. 2. Splenomegaly with subtle wedge-shaped areas of low-density in the mid spleen which could represent infarcts. 3. Mild cardiomegaly in this patient post aortic valve replacement. Low density of the cardiac blood pool suggests anemia. Adalid Galo MD Aorta w/Runoff CTA 09/02/17 0000 Signed Impressions: Service Date/Time: Saturday, September 02, 2017 12:47 - CONCLUSION: Left renal cortical infarction. 5-6 cm length total occlusion of the left superficial femoral artery in the proximal thigh. Nodular parenchymal opacities in the lung bases bilaterally See above discussion. Adalid Dallas MD Renal Ultrasound 09/01/17 0000 Signed Impressions: Service Date/Time: Friday, September 01, 2017 10:53 - CONCLUSION: 1. No evidence of hydronephrosis. 2. Thickening of the urinary bladder wall a 1.1 cm. 3. Prominent splenomegaly. Baldemar Pineda MD Breast Ultrasound 09/01/17 0000 Signed Impressions: Service Date/Time: Friday, September 01, 2017 10:48 - CONCLUSION: Negative targeted right breast ultrasound examination. Adalid Haney MD Lower Extremity Ultrasound 08/31/17 0000 Signed Impressions: Service Date/Time: Thursday, August 31, 2017 21:22 - CONCLUSION: 1. No sonographic evidence for lower extremity DVT. 2. Incidental note of bilateral inguinal adenopathy with the largest on the right measuring 3.3 cm and the largest on the left measuring 2.6 cm. This finding is nonspecific but is typically reactive in etiology. Luis Leija MD Last Impressions Chest X-Ray 09/06/17 0600 Signed Impressions: Service Date/Time: September 03:05 - CONCLUSION: 1. Stable patchy bilateral lower lung zone airspace disease. 2. No significant interval change. Luis Leija MD Chest CT 09/03/17 0000 Signed Impressions: Service Date/Time: Sunday, September 03, 2017 12:41 - CONCLUSION: 1. There are at least 5 pulmonary nodules present bilaterally with the largest measuring 19 mm. None demonstrate cavitation but it is possible that these represent septic emboli. Suggest followup to assess for change. 2. Splenomegaly with subtle wedge-shaped areas of low-density in the mid spleen which could represent infarcts. 3. Mild cardiomegaly in this patient post aortic valve replacement. Low density of the cardiac blood pool suggests anemia. Adalid Galo MD Aorta w/Runoff CTA 09/02/17 0000 Signed Impressions: Service Date/Time: Saturday, September 02, 2017 12:47 - CONCLUSION: Left renal cortical infarction. 5-6 cm length total occlusion of the left superficial femoral artery in the proximal thigh. Nodular parenchymal opacities in the lung bases bilaterally See above discussion. Adalid Dallas MD Renal Ultrasound 09/01/17 0000 Signed Impressions: Service Date/Time: Friday, September 01, 2017 10:53 - CONCLUSION: 1. No evidence of hydronephrosis. 2. Thickening of the urinary bladder wall a 1.1 cm. 3. Prominent splenomegaly. Baldemar Pineda MD Breast Ultrasound 09/01/17 0000 Signed Impressions: Service Date/Time: Friday, September 01, 2017 10:48 - CONCLUSION: Negative targeted right breast ultrasound examination. Adalid Haney MD Lower Extremity Ultrasound 08/31/17 0000 Signed Impressions: Service Date/Time: Thursday, August 31, 2017 21:22 - CONCLUSION: 1. No sonographic evidence for lower extremity DVT. 2. Incidental note of bilateral inguinal adenopathy with the largest on the right measuring 3.3 cm and the largest on the left measuring 2.6 cm. This finding is nonspecific but is typically reactive in etiology. Luis Leija MD Hospital Course (1) Prosthetic valve endocarditis Continue IV ampicillin and daptomycin until October 12 per CTS, patient would not benefit from further cardiac surgery. Patient feels she is not getting any better and wants to talk to hospice again. Hospice has been reconsulted. She wants to set up with hospice after completion of antibiotics (2) Bacteremia Plan: Blood cultures obtained on 08/31 growing strep viridans. Subsequent repeat blood cultures negative. 09/24 sp Exchange of Right IJ central line. Continue antibiotics as per ID recommendations. (3) Septic pulmonary embolism Plan: As observed on a CT angiography of the chest obtained on 09/08/17. echocardiogram on 09/08 showed an estimated EF of 50-55%. ++severe tricuspid regurgitation with prosthesis in place. ++2 x 4 cm mobile vegetation was seen on the valve. The right atrium and right ventricle were normal in size and function Hematology following. Goal INR 2.5-3.5 given the presence of a prosthetic aortic valve. Restarted heparin drip since INR subtherapeutic (4) IVDU (intravenous drug user) Plan: Counseled on drug cessation. (5) Anemia Plan: Likely secondary to inflammation/infection. No evidence of bleeding or hemolysis. Monitor hemoglobin and transfuse as needed. (6) DUONG (acute kidney injury) Plan: Nephrology consulted. Possible ATN from vancomycin toxicity or infection. Urine eosinophils were ordered and negative. Diuretics managed by nephrology. Initially on Lasix 20 mg IV twice daily along with albumin. Creatinine Worsening on 09/24 for 1.57-1.62. Later Lasix dose was increased to 40 mg IV twice daily and metolazone added to the regimen. Creatinine then started trending down to 1.34 on 09/28. Management as per nephrology. Continue to monitor BUN and creatinine, avoid nephrotoxins, I's and O's. (7) Cellulitis of left lower extremity Plan: Continue IV antibiotics as per ID. Cellulitis seems to be improving. (8) Purple toe syndrome/PAD Vascular surgery recommended conservative management continue anticoagulation, weightbearing as tolerated and repeat PRANAV in 2-3 weeks Patient also with severe excruciating pain secondary to possible some ischemia. Increase dose of morphine sulfate from 30 mg p.o. every 12 hours to 45 mg p.o. every 12 hours. Counseled regarding narcotic usage. Consider Nitropaste on the left lower extremity if BP improved (9) Pleuritic chest pain Improving control of pleuritic chest pain. Repeat chest x-ray obtained on did not show any significant change in the right lower lobe infiltrate. Patient developed cardiac arrest with asystole. Code blue called. Pt intubated and ACLS provided. Pt did not survive and was pronounced at 1458H Roby Whitaker MD Oct 08, 2017 17:01
[2017-10-08] MEDS ORDERED: SODIUM BICARBONATE 8.4% INJ 50 MEQ/50 ML SYR IV ONE (18:58)
[2017-10-08] MEDS ORDERED: AMIODARONE HCL 150 MG/3 ML VIAL IV ONE (18:58)
[2017-10-08] MEDS ORDERED: EPINEPHrine HCL (1:10,000) 1 MG/10 ML SYRINGE IV ONE (18:58)
[2017-10-08] MEDS ORDERED: NOREPINEPHRINE 4 MG/4 ML AMP IV ONE (18:58)
[2017-10-08] MEDS ORDERED: MAGNESIUM SULFATE 40 MEQ/10 ML VIAL IV ONE (18:58)
[2017-10-08] MEDS ORDERED: EPINEPHrine HCL (1:1000) 30 MG/30 ML VIAL IV ONE (18:58)
[2017-10-08] MEDS ORDERED: CALCIUM CHLORIDE 10% SOLN 1 GRAM/10 ML SYR IV ONE (18:58)
[2017-10-08] MEDS ORDERED: LIDOCAINE/D5W 2000 MG/500 ML 500 ML IV ONE (18:58)
== END 2017-10-08 18:59 | disposition expired | DRG 314 ==
LOC: NEPE 19:40 → NEDA 21:23 → HIME 22:50 → N04A 09-13 11:13 → N04B 09-13 11:48 → N04A 09-13 11:53
PROVIDERS: ADMIT Internal Medicine; ATTEND Internal Medicine
PROC: 02HV33Z Insertion of Infusion Device into Superior Vena Cava, Percutaneous Approach (ICD-10-PCS; principal; 2017-09-01)
PROC: 30233N1 Transfusion of Nonautologous Red Blood Cells into Peripheral Vein, Percutaneous Approach (ICD-10-PCS; 2017-09-02)
PROC: 02PYX3Z Removal of Infusion Device from Great Vessel, External Approach (ICD-10-PCS; 2017-09-24)
PROC: 02HV33Z Insertion of Infusion Device into Superior Vena Cava, Percutaneous Approach (ICD-10-PCS; 2017-09-24)
PROC: 5A1935Z Respiratory Ventilation, Less than 24 Consecutive Hours (ICD-10-PCS; 2017-10-08)
PROC: 0BH17EZ Insertion of Endotracheal Airway into Trachea, Via Natural or Artificial Opening (ICD-10-PCS; 2017-10-08)
PROC: 5A12012 Performance of Cardiac Output, Single, Manual (ICD-10-PCS; 2017-10-08)
PROC: 5A2204Z Restoration of Cardiac Rhythm, Single (ICD-10-PCS; 2017-10-08)
DX: T82.6XXA Infection and inflammatory reaction due to cardiac valve prosthesis, initial encounter (principal); A41.9 Sepsis, unspecified organism; D65 Disseminated intravascular coagulation [defibrination syndrome]; I26.90 Septic pulmonary embolism without acute cor pulmonale; N17.0 Acute kidney failure with tubular necrosis; I63.9 Cerebral infarction, unspecified; G93.40 Encephalopathy, unspecified; R65.21 Severe sepsis with septic shock; I33.0 Acute and subacute infective endocarditis; I50.43 Acute on chronic combined systolic (congestive) and diastolic (congestive) heart failure; I75.022 Atheroembolism of left lower extremity; E87.3 Alkalosis; I70.92 Chronic total occlusion of artery of the extremities; F11.20 Opioid dependence, uncomplicated; E87.1 Hypo-osmolality and hyponatremia; L03.116 Cellulitis of left lower limb; E46 Unspecified protein-calorie malnutrition; I76 Septic arterial embolism; R44.3 Hallucinations, unspecified; N28.0 Ischemia and infarction of kidney; I36.1 Nonrheumatic tricuspid (valve) insufficiency; F41.9 Anxiety disorder, unspecified; B18.2 Chronic viral hepatitis C; R00.0 Tachycardia, unspecified; E86.0 Dehydration; I70.202 Unspecified atherosclerosis of native arteries of extremities, left leg; D50.9 Iron deficiency anemia, unspecified; R59.0 Localized enlarged lymph nodes; R80.9 Proteinuria, unspecified; B95.4 Other streptococcus as the cause of diseases classified elsewhere; E87.6 Hypokalemia; T36.8X5A Adverse effect of other systemic antibiotics, initial encounter; I46.9 Cardiac arrest, cause unspecified; R23.0 Cyanosis; I49.01 Ventricular fibrillation; I27.20 Pulmonary hypertension, unspecified; R09.02 Hypoxemia; T50.1X5A Adverse effect of loop [high-ceiling] diuretics, initial encounter; R06.03 Acute respiratory distress; R06.2 Wheezing; N18.9 Chronic kidney disease, unspecified; D73.5 Infarction of spleen; Z86.711 Personal history of pulmonary embolism
CPT/HCPCS: 31500; 36430; 36556; 36580; 70450; 70553; 71045; 71250; 71275; 75635; 76642; 76775; 76937; 77001; 80048; 80053; 80069; 80202; 80307; 81001; 81002; 82272; 82550; 82565; 82607; 82668; 82728; 82746; 83010; 83020; 83540; 83550; 83605; 83615; 83690; 83735; 83880; 83935; 84100; 84132; 84300; 84443; 84484; 84702; 85014; 85018; 85025; 85027; 85044; 85300; 85384; 85610; 85730; 86077; 86078; 86160; 86850; 86870; 86880; 86900; 86901; 86920; 86922; 87040; 87070; 87086; 87186; 87205; 87641; 92950; 93005; 93306; 93308; 93922; 93970; 94150; 94640; 94664; 96365; 96368; A9579; J0171; J0282; J0290; J0696; J0878; J0883; J1170; J1200; J1265; J1580; J1644; J1940; J2001; J2250; J2405; J2543; J2997; J3370; J3475; J3480; J7030; J7040; J7050; J7613; J7644; P9016; P9047; Q9967